=== PATIENT | female | born 1940 | race Caucasian/White ===

== ENCOUNTER 2023-06-21 12:45 | Outpatient (OUT) | payer OTHER, SELFPAY ==
--- NOTE | 2023-06-21 | MM_ITS ---
Patient: ROBERTO HILL Exam Date: 06/21/2023 : 1940 Gender:F Ordering : DR SAVANA PRATER . Admission #: [id number] Family : Order #: [id number] CLICK HERE TO VIEW EXAM RADIOLOGY REPORT PROCEDURE: MM SCREENING MAMMO BI COMPARISON: MG MAMM SCREEN JOSH W CAD, 06/17/2022. INDICATIONS: SCREENING Calculator Name NCI Breast Cancer Risk Assessment Tool 5 Year Breast Cancer Risk 1.40% Lifetime Breast Cancer Risk 2.10% Personal Breast Cancer No Personal Ovarian Cancer No Treatments None Family Cancers None LOCATION: [facility] BREAST COMPOSITION: Scattered areas fibroglandular density. FINDINGS: DIAGNOSTIC CATEGORY 2--BENIGN FINDING. NO CHANGE FROM COMPARISON. Scattered benign-appearing calcifications are present. Scattered benign-appearing lymph nodes are present. RIGHT BREAST: No significant suspicious finding. LEFT BREAST: No significant suspicious finding. RECOMMENDATIONS: ROUTINE MAMMOGRAM AND CLINICAL EVALUATION IN 12 MONTHS. PLEASE NOTE: A NORMAL MAMMOGRAM DOES NOT EXCLUDE THE POSSIBILITY OF BREAST CANCER. A CLINICALLY SUSPICIOUS PALPABLE LUMP SHOULD BE BIOPSIED. Dictated by: Russel Yoder MD on 06/21/2023 at 14:26 Approved by: Russel Yoder MD on 06/21/2023 at 14:27
== END 2023-06-21 12:46 | disposition home or self-care (01) ==
LOC: MAMMO 12:49
PROVIDERS: PCP Family Medicine; Visit Provider Family Medicine
DX: Z12.31 Encounter for screening mammogram for malignant neoplasm of breast (principal)
CPT/HCPCS: 77067

== ENCOUNTER 2023-07-03 14:59 | Outpatient (OUT) | payer OTHER, SELFPAY ==
--- NOTE | 2023-07-03 15:14 | XR_ITS ---
The [address] [address] Patient Name: ROBERTO HILL MRN: [id number] date: 1940 Sex: F Assigned Patient Location: [facility] Current Patient Location: [facility] Accession/Order Number: [id number] Exam Date: 07/03/2023 15:50 Report Date: 07/03/2023 16:24 At the request of: SAVANA PRATER Procedure: XR foot LT min 3V EXAM: XR foot LT min 3V HISTORY: FALL COMPARISON: Left ankle films, same date TECHNIQUE: 3 views of the left foot are performed. FINDINGS: The bones are diffusely demineralized. The fracture of the distal fibular diaphysis is seen. There are degenerative changes within the foot, greatest at the first MTP joint. No additional fracture is seen. XR/XR foot LT min 3V IMPRESSION: Distal fibular fracture. Osteopenia, with degenerative changes, greatest at the first MTP joint. Electronically authenticated by: SANDRINE LANE Date: 07/03/2023 16:24
--- NOTE | 2023-07-03 15:14 | XR_ITS ---
The [address] [address] Patient Name: ROBERTO HILL MRN: [id number] date: 1940 Sex: F Assigned Patient Location: [facility] Current Patient Location: [facility] Accession/Order Number: [id number] Exam Date: 07/03/2023 15:50 Report Date: 07/03/2023 16:18 At the request of: SAVANA PRATER Procedure: XR ankle LT min 3V XR ankle LT min 3V, 07/03/2023 3:50 PM EDT, OH001 INDICATION: FALL COMPARISON: None TECHNIQUE: AP, lateral and oblique views of the ankle are submitted. FINDINGS: The bones appear well mineralized. There is a nondisplaced oblique fracture through the distal diametaphysis of the fibula. The joint spaces are maintained. No destructive osseous process is identified. There is marked lateral soft tissue swelling. XR/XR ankle LT min 3V IMPRESSION: Nondisplaced distal fibular fracture. Marked lateral soft tissue swelling. Electronically authenticated by: HAYLEY MERA Date: 07/03/2023 16:18
--- NOTE | 2023-07-03 15:14 | XR_ITS ---
The [place] [id number] Patient Name: ROBERTO HILL MRN: [id number] date: 1940 Sex: F Assigned Patient Location: [facility] Current Patient Location: [facility] Accession/Order Number: [id number] Exam Date: 07/03/2023 15:50 Report Date: 07/03/2023 16:20 At the request of: SAVANA PRATER Procedure: XR knee LT 3V XR knee LT 3V, 07/03/2023 3:50 PM EDT, [place]001 INDICATION: FALL COMPARISON: None TECHNIQUE: 3 views are submitted. FINDINGS: The osseous structures appear well mineralized. The distal femur, proximal tibia, fibula and patella are all intact. There is slight narrowing of the medial joint compartment. There is mild increased density superior to the patella suspicious for joint effusion. XR/XR knee LT 3V IMPRESSION: No acute osseous injury with normal alignment. Probable knee joint effusion. Slight degenerative change. Electronically authenticated by: HAYLEY MERA Date: 07/03/2023 16:20
== END 2023-07-03 15:00 | disposition home or self-care (01) ==
LOC: RAD 15:00
PROVIDERS: PCP Family Medicine; Visit Provider Family Medicine
DX: M25.562 Pain in left knee (principal); M79.672 Pain in left foot; M25.572 Pain in left ankle and joints of left foot; S82.302A Unspecified fracture of lower end of left tibia, initial encounter for closed fracture; W19.XXXA Unspecified fall, initial encounter; S82.832A Other fracture of upper and lower end of left fibula, initial encounter for closed fracture
CPT/HCPCS: 73562; 73610; 73630

== ENCOUNTER 2023-07-07 14:52 | Outpatient (OUT) | payer OTHER, SELFPAY ==
--- NOTE | 2023-07-07 | XR_ITS ---
[address] [address] Patient Name: ROBERTO HILL MRN: [id number] date: 1940 Sex: F Assigned Patient Location: [facility] Current Patient Location: [facility] Accession/Order Number: [id number] Exam Date: 07/07/2023 15:10 Report Date: 07/10/2023 07:34 At the request of: SAVANA PRATER Procedure: XR shoulder LT min 2V PROCEDURE: XR shoulder LT min 2V COMPARISON: None. HISTORY: Shoulder pain, left M25.512 FINDINGS: BONES:No acute fracture or dislocation. Moderate degenerative changes of the acromioclavicular and glenohumeral joints. Moderate spondylosis of the spine SOFT TISSUES:Negative. No visible soft tissue swelling. EFFUSION:None visible. OTHER: Negative. XR/XR shoulder LT min 2V IMPRESSION: Degenerative changes. No acute abnormality Electronically authenticated by: ALEXIS CAAL Date: 07/10/2023 07:34
== END 2023-07-07 14:53 | disposition home or self-care (01) ==
PROVIDERS: PCP Family Medicine; Visit Provider Family Medicine
DX: M25.512 Pain in left shoulder (principal)
CPT/HCPCS: 73030

== ENCOUNTER 2023-07-19 16:00 | Outpatient (OUT) | payer OTHER, SELFPAY ==
--- NOTE | 2023-07-19 | XR_ITS ---
The [address] [address] Patient Name: ROBERTO HILL MRN: [id number] date: 1940 Sex: F Assigned Patient Location: [facility] Current Patient Location: [facility] Accession/Order Number: [id number] Exam Date: 07/19/2023 14:30 Report Date: 07/19/2023 15:23 At the request of: LUIS E RICHARD Procedure: XR ankle LT min 3V IMAGES REVIEWED: XR ankle LT min 3V COMPARISON: 07/03/2023. CLINICAL INDICATION: LEFT ANKLE PAIN FINDINGS/IMPRESSION: 1. Subacute obliquely oriented minimally displaced distal fibular fracture without significant interval healing compared to the recent prior. 2. Otherwise the left ankle appears intact. No evidence of new acute osseous abnormality. 3. Persistent prominent soft tissue swelling of the lateral greater than medial ankle and the dorsal foot. 4. Osteopenia. 5. Moderate enthesopathic change at the distal Achilles tendon insertion. Small chronic sequela of prior medial ankle avulsion injury. Degenerative change of the fifth TMT joint. Electronically authenticated by: KIT HUTCHISON Date: 07/19/2023 15:23
== END 2023-07-19 16:01 | disposition home or self-care (01) ==
LOC: RAD 16:01
PROVIDERS: PCP Family Medicine; Visit Provider Podiatrist Foot & Ankle Surgery
DX: M25.572 Pain in left ankle and joints of left foot (principal); S82.832A Other fracture of upper and lower end of left fibula, initial encounter for closed fracture; M85.872 Other specified disorders of bone density and structure, left ankle and foot
CPT/HCPCS: 73610

== ENCOUNTER 2023-08-02 14:18 | Outpatient (OUT) | payer OTHER, SELFPAY ==
--- NOTE | 2023-08-02 | XR_ITS ---
The [address] [address] Patient Name: ROBERTO HILL MRN: [id number] date: 1940 Sex: F Assigned Patient Location: [facility] Current Patient Location: Accession/Order Number: [id number] Exam Date: 08/02/2023 14:45 Report Date: 08/04/2023 06:36 At the request of: LUIS E RICHARD Procedure: XR ankle LT min 3V PROCEDURE: XR ankle LT min 3V HISTORY: LEFT ANKLE PAIN COMPARISON: XR ankle left 07/19/2023 FINDINGS: BONES:Oblique fracture of distal fibula diametaphysis with minimal lateral offset. Increased callus formation and density of the fracture line since prior study. Intact ankle mortise. SOFT TISSUES:Moderate soft tissue swelling surrounding the ankle. EFFUSION:None visible. OTHER: Negative. XR/XR ankle LT min 3V IMPRESSION: 1. Stable alignment of distal fibular fracture with evidence of ongoing bone healing. Electronically authenticated by: SAMM GATES Date: 08/04/2023 06:36
== END 2023-08-02 14:19 | disposition home or self-care (01) ==
LOC: RAD 14:18
PROVIDERS: PCP Family Medicine; Visit Provider Podiatrist Foot & Ankle Surgery
DX: M25.572 Pain in left ankle and joints of left foot (principal); S82.892D Other fracture of left lower leg, subsequent encounter for closed fracture with routine healing
CPT/HCPCS: 73610

== ENCOUNTER 2023-08-29 15:17 | Outpatient (OUT) | payer OTHER, SELFPAY ==
--- NOTE | 2023-08-29 | XR_ITS ---
The [address] [address] Patient Name: ROBERTO HILL MRN: [id number] date: 1940 Sex: F Assigned Patient Location: [facility] Current Patient Location: Accession/Order Number: [id number] Exam Date: 08/29/2023 15:30 Report Date: 09/01/2023 06:08 At the request of: LUIS E RICHARD Procedure: XR ankle LT min 3V PROCEDURE: XR ankle LT min 3V HISTORY: LEFT ANKLE PAIN ; follow-up distal fibular fracture COMPARISON: XR ankle left 08/02/2023 FINDINGS: BONES:Minimally displaced fracture of distal fibula with increasing density of the fracture line and surrounding callus formation. SOFT TISSUES:Mild lateral soft tissue swelling, but improved compared to prior study. EFFUSION:None visible. OTHER: Negative. XR/XR ankle LT min 3V IMPRESSION: 1. Stable alignment and ongoing bone healing of distal left fibular fracture. Electronically authenticated by: SAMM GATES Date: 09/01/2023 06:08
== END 2023-08-29 15:18 | disposition home or self-care (01) ==
LOC: RAD 15:18
PROVIDERS: PCP Family Medicine; Visit Provider Podiatrist Foot & Ankle Surgery
DX: M25.572 Pain in left ankle and joints of left foot (principal)
CPT/HCPCS: 73610

== ENCOUNTER 2023-09-29 11:42 | Outpatient (OUT) | payer OTHER, SELFPAY ==
--- NOTE | 2023-09-29 | XR_ITS ---
The [address] [address] Patient Name: ROBERTO HILL MRN: [id number] date: 1940 Sex: F Assigned Patient Location: [facility] Current Patient Location: [facility] Accession/Order Number: [id number] Exam Date: 09/29/2023 11:43 Report Date: 09/29/2023 16:08 At the request of: LUIS E RICHARD Procedure: XR ankle LT min 3V EXAM: XR ankle LT min 3V, XR foot LT min 3V HISTORY: LEFT ANKLE PAIN. COMPARISON: Left ankle study dated 08/29/2023, left foot study dated 07/03/2023. TECHNIQUE: 3 views of the left ankle were obtained. FINDINGS: Mild ankle joint space narrowing. Mild spurring of the medial malleolus of the distal tibia. Findings compatible with healing fracture of the distal fibular shaft with mild interval healing compared to the prior exam, decreased conspicuity of the fracture line with increased periosteal new bone formation suggested. Slight lateral displacement of the distal fracture fragment mildly decreased compared to the prior exam. Mild generalized soft tissue swelling. Small posterior calcaneal spur. TECHNIQUE: 3 views of the left foot were obtained. FINDINGS: Healing fracture of the distal fibula as noted above. No definite acute fracture or dislocation about the left foot. [id number] degenerative changes about the interphalangeal joints. Marked degenerative changes about the first metatarsophalangeal joint. Small plantar calcaneal spur. Mild soft tissue swelling proximally. XR/XR ankle LT min 3V IMPRESSION: Left ankle study demonstrates healing fracture of the distal fibula as noted. Left foot study fails to demonstrate definite acute fracture or dislocation about the foot. Degenerative changes as noted, similar to the prior study. Follow-up as needed. Electronically authenticated by: MALINA LONDON Date: 09/29/2023 16:08
--- NOTE | 2023-09-29 | XR_ITS ---
The [address] [address] Patient Name: ROBERTO HILL MRN: [id number] date: 1940 Sex: F Assigned Patient Location: [facility] Current Patient Location: [facility] Accession/Order Number: [id number] Exam Date: 09/29/2023 11:43 Report Date: 09/29/2023 16:08 At the request of: LUIS E RICHARD Procedure: XR foot LT min 3V EXAM: XR ankle LT min 3V, XR foot LT min 3V HISTORY: LEFT ANKLE PAIN. COMPARISON: Left ankle study dated 08/29/2023, left foot study dated 07/03/2023. TECHNIQUE: 3 views of the left ankle were obtained. FINDINGS: Mild ankle joint space narrowing. Mild spurring of the medial malleolus of the distal tibia. Findings compatible with healing fracture of the distal fibular shaft with mild interval healing compared to the prior exam, decreased conspicuity of the fracture line with increased periosteal new bone formation suggested. Slight lateral displacement of the distal fracture fragment mildly decreased compared to the prior exam. Mild generalized soft tissue swelling. Small posterior calcaneal spur. TECHNIQUE: 3 views of the left foot were obtained. FINDINGS: Healing fracture of the distal fibula as noted above. No definite acute fracture or dislocation about the left foot. [id number] degenerative changes about the interphalangeal joints. Marked degenerative changes about the first metatarsophalangeal joint. Small plantar calcaneal spur. Mild soft tissue swelling proximally. XR/XR foot LT min 3V IMPRESSION: Left ankle study demonstrates healing fracture of the distal fibula as noted. Left foot study fails to demonstrate definite acute fracture or dislocation about the foot. Degenerative changes as noted, similar to the prior study. Follow-up as needed. Electronically authenticated by: MALINA LONDON Date: 09/29/2023 16:08
== END 2023-09-29 11:43 | disposition home or self-care (01) ==
LOC: RAD 11:42
PROVIDERS: PCP Family Medicine; Visit Provider Podiatrist Foot & Ankle Surgery
DX: S82.62XA Displaced fracture of lateral malleolus of left fibula, initial encounter for closed fracture (principal)
CPT/HCPCS: 73610; 73630

== ENCOUNTER 2023-10-07 17:52 | Emergency (ER) | payer MEDICARE, SELFPAY ==
[2023-10-07 18:00] VITALS: BP 118/63; PULSE 87; RESP 18; TEMP 36.7; O2SAT 95
--- OUTSIDE RECORDS SUMMARY | 2023-10-07 18:03 | XMS_ITS | CCD ---
Author Name Unknown Address [address] [place] [address] Organization [facility] Care Team Providers Care Transmission Mechanic Name Role Phone TALA SNOWF Unavailable Unavailable GWENDOLYN MOURDEONTEF Unavailable Unavailable Meng Prater Unavailable Unavailable Unavailable Meng Prater MD Primary Care Provider [phone] Meng Prater Primary Care Physician Meng Prater MD Primary Care Provider [phone] Meng Prater MD Primary Care Provider [phone] DR MENG PRATER Admitting Unavailable JOSI, DR SAWANT Attending Unavailable JOSI, DR SAWANT Consulting Unavailable JOSI, DR SAWANT Primary Care Unavailable DIAB, NATALIE Attending Unavailable DIAB, NATALIE Consulting Unavailable NICHOLAS, NATALIE Admitting Unavailable JOSI, DR SAWANT Primary Care Unavailable JOSI, DR SAWANT Primary Care Unavailable JOSI, DR SAWANT Admitting Unavailable JOSI, DR SAWANT Attending Unavailable JOSI, DR SAWANT Consulting Unavailable JOSI, DR SAWANT Primary Care Unavailable JOSI, DR SAWANT Admitting Unavailable JOSI, DR SAWANT Attending Unavailable JOSI, DR SAWNAT Consulting Unavailable YAJAIRA, DR SAMM Heller Consulting Unavailable DR MENG PRATER Primary Care Unavailable JOSI, DR SAWANT Admitting Unavailable JOSI, DR SAWANT Attending Unavailable JOSI, DR SAWANT Consulting Unavailable AFUA, DR ALEXIS Elizabeth Consulting Unavailable Meng Prater MD Primary Care Provider [phone] MENG PRATER Primary Care Unavailable MENG PRATER Primary Care Unavailable CHRISTIANA MONTERO Attending Unavailable CHRISTIANA MONTERO Attending Unavailable MENG PRATER Primary Care Unavailable EVITA CALDERON Referring Unavailable MENG PRATER Primary Care Unavailable CHRISTIANA MONTERO Attending Unavailable MENG PRATER Primary Care Unavailable SHELLEY MITCHELL Attending Unavailable MENG PRATER Primary Care Unavailable KASEY RAE Attending Unavaila MENG Muniz Primary Care Unavailable CHRISTIANA MONTERO Attending Unavailable Gwendolyn, Dr. Zhao Referring Unavaila sera Snow, Dr. Zhao Attending Unavaila Dr. Meng Muniz Primary Care Unavail able ELLEN COOK Admitting Unavailable ELLEN COOK Attending Unavailable ELLEN COOK Attending Unavailable Kunal LORA Attending Unavailable Kunal LORA Attending Unavailable Leonor Phillips Attending Unavailable Kunal LORA Attending Unavailable Meng Prater MD Primary Care Provider [phone] MAUREEN BALLESTEROS Attending Unavailable MAUREEN BALLESTEROS Referring Unavailable Allergies Allergy Classification Reported Allergen(s) Allergy Type Date of Onset Reaction(s) Facility (14 sources) Penicillins; Translations: [Penicillins] Allergy to drug (finding) 3 Unknown (qualifier value) [place] [address] DO Work Phone: (5 sources) Sulfamethoxazole; Translations: [sulfa] Drug Allergy Rash [facility] 250 DO Work Phone: (19 sources) Ciprofloxacin; Translations: [CIPROFLOXACIN] Drug Allergy [address] [facility] (3 sources) Penicillins Drug Allergy 3 [facility] (19 sources) Sulfonamides (Antibiotic); Translations: [SULFA (SULFONAMIDE ANTIBIOTICS)] Drug Allergy 9 Rash [facility] (8 sources) Sulfonamides (Antibiotic); Translations: [sulfa drugs] Drug allergy Unknown (qualifier value) [facility] (15 sources) Penicillins Drug Allergy 3 [facility] (7 sources) NITROFURANTOIN, MACROCRYSTALS / Nitrofurantoin, Monohydrate; Translations: [nitrofurantoin] Drug Allergy 1 itching [facility] (1 source) Ciprofloxacin Drug Allergy [facility] (1 source) Penicillins Drug allergy (disorder) 3 [facility] (1 source) Sulfonamides (Antibiotic) Drug allergy (disorder) [facility] Medications Current Medications Medication Drug Class(es) Dates Sig (Normalized) Sig (Original) amLODIPine 10 mg oral tablet (20 sources) Dihydropyridine Calcium Channel [place] Start: 10-21-2019 take 1 tablet by mouth once daily Norvasc 10 mg Tab 10 mg = 1 tab(s), Oral, Daily, # 30 tab(s), Refills(s) 0 Start Date: 10/21/19 Status: Ordered Start: 06-13-2019 take 1 tablet by terrence th twice daily amLODIPine (NORVASC) 5 mg tablet Take 1 tablet by mouth twice daily. 0 06/13/2019 Active Comment on above: Take 1 tablet by terrence th twice daily. Ascorbic Acid (20 sources) Vitamin C Start: 05-06-2019 Vitamin C See Instructions, Daily, Refills(s) 0 Start Date: 05/06/19 Status: Ordered take 1 tablet by mouth once paul y Vitamin C 1000 MG Oral Tablet TAKE 1 TABLET DAILY. Quantity: 0 Refills: 0 Ordered: 09-Aug-2021 DO Active Ascorbic Acid 1, 000 mg TbER Take by mouth. 0 Active Comment on above: Take by mouth. aspirin 81 mg oral capsule (20 sources) Platelet Aggregation Inhibitor, Nonsteroidal Anti-inflammatory Drug Start: 08-09-2021 take 1 mg by mouth every four hours aspirin 81 mg oral capsule mg cap(s), Oral, q4hr, Refills(s) 0 Start Date: 08/09/21 Status: Ordered Start: 08-09-2021 take 1 tablet by terrence th once daily Aspirin 81 MG Oral Tablet Delayed Release TAKE 1 TABLET DAILY. Quantity: 90 Refills: 3 Ordered: 06-Jun-2023 Mary Anne Snow MD Start : 09-Aug-2021 Active fill if requested. Comment on above: Take 81 mg by mouth once daily. Brain Misael Capsules (All Web Leads) (12 sources) Start: 07-08-2020 End: 02-04-2023 take 2 tablets by mouth at mealtime Brain Misael Capsules (All Web Leads) Take 2 tablets by mouth w MEALS. 0 07/08/2020 02/04/2023 Discontinued Start: 07-08-2020 take 2 tablets by [facility] at mealtime Brain Misael Capsules (All Web Leads) Take 2 tablets by mouth w MEALS. 0 07/08/2020 Active Comment on above: Take 2 tablets by [facility] w MEALS. Clobetasol (7 sources) Corticosteroid Start: 3 apply 45 g topically every week as needed clobetasol Top 0.05% Crm 15 gram See Instructions, 45 gm, Refill(s) 1, 4x a week as needed, [facility], 157, cm, 08/08/22 15:15:00 EDT, Height/Length Dosing, 60.8, kg, 08/08/22 15:15:00 EDT, Weight Dosing Start Date: 02/14/23 Status: Ordered Start: 01-31-2022 apply 45 g topically every week as needed clobetasol Top 0.05% Crm 15 gram See Instructions, 45 gm, Refill(s) 1, 4x a week as needed, [facility], 157, cm, 01/31/22 14:38:00 EDT, Height/Length Dosing, 55.5, kg, 01/31/22 14:38:00 EDT, Weight Dosing Start Date: 01/31/22 Status: Ordered Co Q-10 (7 sources) Start: 11-23-2020 take 1 mg by mouth once daily Co Q-10 mg, Oral, Daily, Refills(s) 0 Start Date: 11/23/20 Status: Ordered Pristiq (17 sources) Serotonin and Norepinephrine Reuptake Inhibitor Start: 08-08-2022 Pristiq Oral, Daily, Refills(s) 0 Start Date: 08/08/22 Status: Ordered Pristiq TB24 one daily Quantity: 0 Refills: 0 Ordered: 06-Jun-2023 DO Active take 1 tablet by terrence once daily, then take 1 tablet by mouth every twenty-four hours desvenlafaxine ER (PRISTIQ) 50 mg 24 hr tablet Take 50 mg by mouth once daily. 0 Active Comment on above: Take 50 mg by mouth once daily. escitalopram 20 mg oral tablet (20 sources) Serotonin Reuptake Inhibitor Start: 09-14-2020 take 1 mg by mouth once daily Lexapro 20 mg Tab mg tab(s), Oral, Daily, Refills(s) 0 Start Date: 08/09/21 Status: Ordered Start: 04-22-2019 End: 07-25-2022 take 1 tablet by mouth once daily Lexapro 10 mg Tab 10 mg = 1 tab(s), Oral, Daily, # 30 tab(s), Refills(s) 0 Start Date: 10/21/19 Status: Ordered Comment on above: Take 10 mg by mouth once daily. estradiol 0.1 mg/ml vaginal cream (18 sources) Estrogen Start: 08-08-2022 estradiol 0.1 mg/g Vag Crm 1 gm, Vaginal, TueSat, 42.5 gm, Refill(s) 3, [facility], 157, cm, 08/08/22 15:15:00 EDT, Height/Length Dosing, 60.8, kg, 08/08/22 15:15:00 EDT, Weight Dosing Start Date: 08/08/22 Status: Ordered Start: 08-02-2021 estradiol 0.1 mg/g Vag Crm Refill(s) 0 Start Date: 08/02/21 Status: Ordered Start: 08-02-2021 estradiol 0.1 mg/g Vag Crm Refill(s) 0 Start Date: 08/02/21 Status: Ordered Start: 05-13-2021 Estradiol 0.1 MG/GM Vaginal Cream INSERT 1 GRAM TWICE PER A WEEK VIA VAGINAL ROUTE Quantity: 42 Refills: 0 Ordered: 13-May-2021 DO Start : 13-May-2021 Active Osiris WILKINSON 1265 ([employer]) sleep/calming/anxiety (12 sources) Start: 07-08-2020 End: 02-04-2023 Osiris WS 1265 ([employer]) sleep/calming/anxiety 1 at bedtime - may also use 1 in AM for relaxation/anxiety 0 07/08/2020 02/04/2023 Discontinued Start: 07-08-2020 Osiris WS 1265 ([employer]) sleep/calming/anxiety 1 at bedtime - may also use 1 in AM for relaxation/anxiety 0 07/08/2020 Active Comment on above: 1 at bedtime - may a lso use 1 in AM for relaxation/anxiety Multi t/d 60 ct. (Pure Encapsulations) - multivitamin (12 sources) Start: 021 End: 023 take 1 capsule by mouth twice daily at mealtime Multi t/d 60 ct. (Pure Encapsulations) - multivitamin Take 1 capsule by mouth twice daily with meals. 120 capsule 11 11/25/2020 02/04/2023 Discontinued Start: 11-25-2020 take 1 capsule by mo uth twice daily at mealtime Multi t/d 60 ct. (Pure Encapsulations) - multivitamin Take 1 capsule by mouth twice daily with meals. 120 capsule 11 11/25/2020 Active Comment on above: Take 1 capsule by mo uth twice daily with meals. [place]-3 350 mg oral capsule (7 sources) Start: 11-23-2020 take 1 capsule by mouth once daily [place]-3 350 mg oral capsule mg cap(s), Oral, Daily, Refills(s) 0 Start Date: 11/23/20 Status: Ordered valsartan 80 mg oral tablet (7 sources) Angiotensin 2 Receptor [place] Start: 06-14-2019 take 1 mg by mouth once daily valsartan 80 mg Tab mg tab(s), Oral, Daily, Refills(s) 0 Start Date: 06/14/19 Status: Ordered Vitamin D3 (7 sources) Start: 05-06-2019 Vitamin D3 Refills(s) 0 Start Date: 05/06/19 Status: Ordered Vitamin E (12 sources) Start: 10-21-2019 vitamin E Oral, Daily, Refills(s) 0 Start Date: 10/21/19 Status: Ordered take 1 capsule by mouth once temo ly Vitamin E 1000 UNIT Oral Capsule TAKE 1 CAPSULE Daily Quantity: 0 Refills: 0 Ordered: 09-Aug-2021 DO Active Completed/Discontinued Medications Medication Drug Class(es) Dates Sig (Normalized) Sig (Original) ARIPiprazole 2 mg oral tablet (7 sources) Atypical Antipsychotic take 1 tablet by mouth once daily ARIPiprazole (ABILIFY) 2 mg tablet Take 2 mg by mouth once daily. 0 Active Comment on above: Take 2 mg by mouth o nce daily. 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 0 02/04/2023 Active Start: 11-25-2020 End: 02-04-2023 take 2 capsules by mouth once daily at mealtime B-Complex Plus (Pure Encapsulations) Take 2 capsules by mouth daily with food. 0 11/25/2020 02/04/2023 Discontinued Start: 11-25-2020 take 2 capsules by m outh once daily at mealtime B-Complex Plus (Pure Encapsulations) Take 2 capsules by mouth daily with food. 0 11/25/2020 Active Comment on above: Take 2 capsules by m outh daily with food. Take 1 capsule by mo uth daily with food. Brain TABS (3 sources) Brain TABS TAKE 2 TABLET Daily Quantity: 0 Refills: 0 Ordered: 31-May-2022 DO Active carvedilol 3.125 mg oral tablet (20 sources) alpha-Adrenergic [place], beta-Adrenergic [place] Start: 01-06-2021 take 1 tablet by mouth twice daily Carvedilol 3.125 MG Oral Tablet TAKE ONE TABLET BY MOUTH TWICE A DAY ALONG WITH THE 12.5MG Quantity: 60 Refills: 0 Ordered: 02-Aug-2021 DO Start : 06-Jan-2021 Active Start: 05-07-2019 take 1 mg by mouth twice daily Coreg 12.5 mg Tab mg tab(s), Oral, BID, Refills(s) 0 Start Date: 05/18/20 Status: Ordered Start: 05-06-2019 take 3.125 mg by terrence th twice daily Coreg 6.25 mg Tab 3.125 mg = 0.5 tab(s), Oral, BID, Refills(s) 0 Start Date: 05/06/19 Status: Ordered Comment on above: Take 12.5 mg by mout h twice daily. Chlorella (Biotics) (2 sources) Start: Chlorella (Biotics) Indications: Memory change Take three capsules each day. 0 05/19/2023 Active Comment on above: Take three capsules each day. cholecalciferol 0.025 mg oral capsule (20 sources) Vitamin D take 1 capsule by mouth once daily Vitamin D3 25 MCG (1000 UT) Oral Capsule TAKE 1 CAPSULE Daily Quantity: 0 Refills: 0 Ordered: 09-Aug-2021 DO Active take 1 tablet by mouth once paul y cholecalciferol (VITAMIN D3) 50 mcg (2,000 unit) tablet Take 2,000 Units by mouth once daily. 0 Active Comment on above: Take 2,000 Units by mouth once daily. 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 (2 pumps = 100 mg Glutathione) 0 02/04/2023 Active Comment on above: Use 20 pumps daily ( 1000mg) divided doses through out the day. (2 pumps = 100 mg Glutathione) Glutathione (Spotify) - Liver support/detox (8 sources) Start: 12-01-2021 End: 07-25-2022 Glutathione (Spotify) - Liver support/detox Use 8 pumps daily , divided doses through out the day. (2 pumps = 100 mg Glutathione). Work up slowly to the higher dose. 0 12/01/2021 07/25/2022 Discontinued Start: 12-01-2021 Glutathione (Q DocuTAP) - Liver support/detox Use 8 pumps daily , divided doses through out the day. (2 pumps = 100 mg Glutathione). Work up slowly to the higher dose. 0 12/01/2021 Active Comment on above: Use 8 pumps daily , divided doses through out the day. (2 pumps = 100 mg Glutathione). Work up slowly to the higher dose. 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 (1 [id number]) 0 02/04/2023 Active Comment on above: Take 1 capsule 3 fidel es daily in divided doses between meals. (1 [id number]) ketoconazole 20 mg/ml topical cream (1 source) Azole Antifungal Ketoconazole 2 % External Cream APPLY SPARINGLY TO AFFECTED AREA(S) ONCE DAILY Quantity: 0 Refills: 0 Ordered: 06-Jun-2023 DO Active Lavela WS 1265 80 MG Oral Capsule (3 sources) Lavela WS 1265 8 0 MG Oral Capsule twice daily as needed Quantity: 0 Refills: 0 Ordered: 31-May-2022 DO Active Ocou-Bujx-MT ([employer]) (8 sources) Start: 12-01-2021 End: 07-25-2022 Izwz-Dveg-JA ([employer]) Take 1 capsule, 2 times daily with 4 oz or more of water. 0 12/01/2021 07/25/2022 Discontinued Start: 12-01-2021 Bcdm-Ifqu-OE ( [employer]) Take 1 capsule, 2 times daily with 4 oz or more of water. 0 12/01/2021 Active Comment on above: Take 1 capsule, 2 ti mes daily with 4 oz or more of water. NAC 600mg (Pure Encapsulations) - liver support (helps make glutathione) (8 sources) Start: 12-01-2021 End: 07-25-2022 NAC 600mg (Pure Encapsulations) - liver support (helps make glutathione) 3 capsules, in divided doses, between meals 0 12/01/2021 07/25/2022 Discontinued Start: 12-01-2021 NAC 600mg (Pur e Encapsulations) - liver support (helps make glutathione) 3 capsules, in divided doses, between meals 0 12/01/2021 Active Comment on above: 3 capsules, in divid ed doses, between meals Neuro Rudolph TABS (3 sources) Neuro Rudolph TABS TAKE DIRECTED. Quantity: 0 Refills: 0 Ordered: 31-May-2022 DO Active Neuromag ( All Web Leads ) 90 ct (18 sources) Start: 07-08-20 Neuromag ( All Web Leads ) 90 ct Take 3 capsules per day or as directed by a healthcare professional. 0 07/08/2020 Active Comment on above: Take 3 capsules per day or as directed by a healthcare professional. 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 0 02/04/2023 Active Comment on above: Take 2 capsules paul y, with meals. rosuvastatin calcium 40 mg oral tablet (20 sources) HMG-CoA Reductase Inhibitor Start: 04-22-20 take 1 tablet by mouth at bedtime Rosuvastatin Calcium 40 MG Oral Tablet TAKE 1 TABLET AT BEDTIME Quantity: 90 Refills: 1 Ordered: 26-Apr-2023 Gwendolyn WATTS, Mary Anne Start : 05-May-2021 Active Comment on above: Take 40 mg by mouth once daily. Saccharomyces Boulardii (Klaire/Prothera) good yeast (FRIDGE) (8 sources) Start: 12-01-19 End: 07-25-20 take 2 capsules by mouth once daily Saccharomyces Boulardii (Klaire/Prothera) good yeast (FRIDGE) Take 2 capsules by mouth once daily. Take saccharomyces boullardi 2 hrs away from nystatin/candibactin/d iflucan. 0 12/01/2021 07/25/2022 Discontinued Start: 12-01-2021 take 2 capsules by mouth once daily Saccharomyces Boulardii (Klaire/Prothera ) good yeast (FRIDGE) Take 2 capsules by mouth once daily. Take saccharomyces boullardi 2 hrs away from nystatin/candibactin/diflucan. 0 12/01/2021 Active Comment on above: Take 2 capsules by out once daily. Take saccharomyces boullardi 2 hrs away from nystatin/candibactin/diflucan. ubiquinol 100 mg oral capsule (18 sources) Star t: 06-11 0 coQ10, ubiquinol, 100 mg cap Take 1 capsule daily with a meal. 60 capsule 2 07/08/2020 Active Comment on above: Take 1 capsule daily with a meal. UT Synergy (All Web Leads) antibacterial (18 sources) Star t: 06-11 0 20 take 1 capsule by mouth twice daily [employer]nergy (All Web Leads) antibacterial Take 1 capsule by mouth twice daily. 0 07/08/2020 Active Comment on above: Take 1 capsule by mo uth twice daily. vitamin E, dl,tocopheryl acet, (VITAMIN E, DL, ACETATE, ORAL) (10 sources) take 1000 [IU] by mouth once daily vitamin E, dl,tocopheryl acet, (VITAMIN E, DL, ACETATE, ORAL) Take 1,000 Units by mouth once daily. 0 Active Comment on above: Take 1,000 Units by mouth once daily. Problems Active Problems Problem Classification Problem Date Documented Date Episodic/Chronic Abdominal pain (7 sources) Suprapubic pain 05-06-2019 Episodic Administrative/social admission (2 sources) Patient encounter status; Translations: [Dietary counseling and surveillance] Episodic Anxiety disorders (1 source) Anxiety disorder, unspecified; Translations: [ANXIETY DISORDER UNSPECIFIED] Onset: 11-07-2022 Chronic Cardiac dysrhythmias (5 sources) Ventricular premature beats; Translations: [Other premature beats] Chronic Coma; stupor; and brain damage (1 source) Drowsy; Translations: [Somnolence] Episodic Conditions associated with dizziness or vertigo (5 sources) Dizziness; Translations: [Dizziness and giddiness] Episodic Coronary atherosclerosis and other heart disease (18 sources) Arteriosclerotic vascular disease; Translations: [Atherosclerotic heart disease of enterprise coronary artery without angina pectoris] Onset: 07-07-2020 07-07-2020 Chronic Coronary atherosclerosis and other heart disease (1 source) Coronary atherosclerosis and other heart disease Onset: 07-11-2017 Delirium, dementia, and amnestic and other cognitive disorders (20 sources) Primary degenerative dementia of the Alzheimer type, senile onset; Translations: [Alzheimer's disease with late onset] Onset: 07-07-2020 07-07-2020 Chronic Disorders of lipid metabolism (20 sources) Hyperlipidemia; Translations: [Other and unspecified hyperlipidemia] Onset: 07-07-2020 07-07-2020 Chronic Essential hypertension (20 sources) Essential hypertension; Translations: [Unspecified essential hypertension] Onset: 07-07-2020 07-07-2020 Chronic Essential hypertension (1 source) Essential hypertension Onset: 07-11-2017 Genitourinary symptoms and ill-defined conditions (15 sources) Dysuria; Translations: [Microscopic hematuria] Onset: 04-17-2023 05-06-2019 Episodic Heart valve disorders (1 source) Nonrheumatic mitral (valve) insufficiency; Translations: [NONRHEUMATIC MITRAL INSUFFICIENCY] Onset: 11-07-2022 Chronic Nonspecific chest pain (9 sources) Chest pain; Translations: [Chest pain, unspecified] Onset: 06-03-2022 Episodic Nutritional deficiencies (1 source) Vitamin D deficiency, unspecified; Translations: [VITAMIN D DEFICIENCY UNSPECIFIED] Onset: 06-05-2022 Chronic Nutritional deficiencies (5 sources) Vitamin B-complex deficiency ; Translations: [Vitamin B deficiency, unspecified] Episodic Occlusion or stenosis of precerebral arteries (7 sources) Bilateral stenosis of carotid arteries; Translations: [Occlusion and stenosis of multiple and bilateral precerebral arteries without mention of cerebral infarction] 08-21-2023 Chronic Other aftercare (2 sources) Drug therapy finding; Translations: [Other custodial (current) drug therapy] Episodic Other aftercare (1 source) terminal operator (current) use of aspirin; Translations: [USP CURRENT USE OF ASPIRIN] Onset: 11-07-2022 Episodic Other aftercare (1 source) Other ad terminal makeup operator (current) drug therapy; Translations: [OTH VALIDATION TECHNICIAN CURRENT DRUG THERAPY] Onset: 11-07-2022 Episodic Other connective tissue disease (1 source) Pain in right thigh; Translations: [PAIN IN RIGHT THIGH] Onset: 10-08-2022 Episodic Other nervous system disorders (1 source) 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; Translations: [Cognitive communication deficit] Chronic Other non-traumatic joint disorders (4 sources) Pain in right hip; Translations: [PAIN IN RIGHT HIP] Onset: 10-05-2022 Episodic Other nutritional; endocrine; and metabolic disorders (1 source) Overweight; Translations: [Overweight] Episodic Other nutritional; endocrine; and metabolic disorders (3 sources) Impaired nutrient utilization; Translations: [Other symptoms and signs concerning food and fluid intake] Episodic Other nutritional; endocrine; and metabolic disorders (1 source) Overweight in adulthood with body mass index of 25 or more but less than 30; Translations: [Overweight] Episodic Other screening for suspected conditions (not mental disorders or infectious disease) (16 sources) Cardiovascular stress test abnormal; Translations: [Other nonspecific abnormal results of function study of cardiovascular system] Onset: 06-05-2022 Episodic Residual codes; unclassified (4 sources) Non-smoker; Translations: [Other specified conditions influencing health status] Episodic Residual codes; unclassified (5 sources) Body mass index 20-24 - normal; Translations: [Body Mass Index between 19-24, adult] Episodic Residual codes; unclassified (3 sources) Memory impairment; Translations: [Other amnesia] Episodic Residual codes; unclassified (1 source) Contact with and (suspected) exposure to mold (toxic); Translations: [Contact with and (suspected) exposure to mold] Episodic Residual codes; unclassified (1 source) Acquired absence of other specified parts of digestive tract; Translations: [ACQ ABSENCE OTH PART DIGESTV TRACT] Onset: 11-07-2022 Episodic Residual codes; unclassified (2 sources) Contact with and (suspected) exposure to other hazardous, chiefly nonmedicinal, chemicals; Translations: [Contact with and (suspected) exposure to other potentially hazardous chemicals] Episodic Thyroid disorders (2 sources) Subclinical hypothyroidism; Translations: [Other specified hypothyroidism] Chronic Unclassified (2 sources) Occlusion and stenosis of bilateral carotid arteries / I65.23(ICD-9) Onset: 07-11-2017 Unclassified (1 source) Ventricular premature depolarization / I49.3(ICD-9) Onset: 07-11-2017 Unclassified (1 source) Pure hypercholesterolemia, unspecified / E78.00(ICD-9) Onset: 07-11-2017 Urinary tract infections (12 sources) Chronic cystitis; Translations: [Other chronic cystitis without hematuria] Onset: 01-31-2022 Chronic Urinary tract infections (18 sources) Postinfective urethral stricture of female; Translations: [Postinfective urethral stricture, not elsewhere classified, female] Onset: 01-31-2022 Episodic Past or Other Problems Problem Classification Problem Date Documented Da te Episodic/Chronic Biliary tract disease (1 source) Chronic cholecystitis; Translations: [CHRONIC CHOLECYSTITIS] Onset: 06-05-2022 Episodic Deficiency and other anemia (1 source) Anemia, unspecified; Translations: [ANEMIA UNSPECIFIED] Onset: 06-05-2022 Episodic Diabetes mellitus without complication (1 source) Other abnormal glucose; Translations: [OTHER ABNORMAL GLUCOSE] Onset: 06-05-2022 Episodic Unclassified (1 source) Occlusion and stenosis of bilateral carotid arteries; Translations: [Occlusion and stenosis of bilateral carotid arteries] Onset: 07-11-2017 Unclassified (1 source) Never smoked tobacco; Translations: [Never a smoker] Results Test Name Value Interpretation Reference Range Facility US.doppler Carotid arteries - bilateralon 08-25-2023 [facility] [address] [place] [address], [address], [place] [address] Vascular Lab Report [facility] US CAROTID ARTERY DUPLEX BILATERAL Patient Name: ANN MARIE HILL Reading Physician: [id number] Miranda Tinoco MD, [facility] Study Date: 08/21/2023 Ordering Provider: [id number] MARY ANNE CASTLEEdda MRN/PID: [id number] Fellow: Technologist: Irasema Dooley RD, T Date of /Age: 3 1940 years Technologist 2: Gender: F Admission Status: Outpatient Location Performed: [facility] Diagnosis/ICD: Occlusion 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; Essential primary hypertension-I10 Indication: Hyperlipidemia, Dizziness, Dementia CPT Codes: 17895 Cerebrovascular Carotid Duplex scan complete CONCLUSIONS: Right Carotid: Findings are consistent with less than 50% stenosis of the right proximal internal carotid artery. Laminar flow seen by color Doppler. Right external carotid artery appears patent with no evidence of stenosis. No evidence of hemodynamically significant stenosis of the right common carotid artery. The right vertebral artery is patent with antegrade flow. No changes since 2019. Left Carotid: Findings are consistent with less than 50% stenosis of the left proximal internal carotid artery. Laminar flow seen by color Doppler. Left external carotid artery appears patent with no evidence of stenosis. No evidence of hemodynamically significant stenosis of the left common carotid artery. The left vertebral artery is patent with antegrade flow. No changes since 2019. Imaging & Doppler Findings: Right Plaque Morph: The proximal right internal carotid artery demonstrates irregular plaque. The distal right common carotid artery demonstrates calcified and irregular plaque. Right Left PSV EDV PSV EDV 59 cm/s 12 cm/s CCA P 92 cm/s 16 cm/s 60 cm/s 12 cm/s CCA M 75 cm/s 13 cm/s 51 cm/s 9 cm/s CCA D 65 cm/s 13 cm/s 57 cm/s 11 cm/s ICA P 40 cm/s 11 cm/s 61 cm/s 15 cm/s ICA M 53 cm/s 15 cm/s 68 cm/s 14 cm/s ICA D 72 cm/s 18 cm/s 93 cm/s ECA 75 cm/s 32 cm/s Vertebral 25 cm/s Right Left ICA/CCA Ratio 1.1 0.6 [id number] Miranda Tinoco MD, [facility] Final Miranda Tran M D - 08/25/[address], [address] [place] [address] Vascular Lab Report [facility] US CAROTID ARTERY DUPLEX BILATERAL Patient Name: ANN MARIE Ferro Physician: [id number] Miranda Tinoco MD, [facility] Study Date: 08/21/2023 Ordering Provider: [id number] MARY ANNE SNOW MRN/PID: [id number] Fellow: Technologist: Irasema Dooley [facility], T Date of /Age: 3 1940 years Technologist 2: Gender: F Admission Status: Outpatient Location Performed: [facility] Diagnosis/ICD: Occlusion 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; Essential primary hypertension-I10 Indication: Hyperlipidemia, Dizziness, Dementia CPT Codes: 78542 Cerebrovascular Carotid Duplex scan complete CONCLUSIONS: Right Carotid: Findings are consistent with less than 50% stenosis of the right proximal internal carotid artery. Laminar flow seen by color Doppler. Right external carotid artery appears patent with no evidence of stenosis. No evidence of hemodynamically significant stenosis of the right common carotid artery. The right vertebral artery is patent with antegrade flow. No changes since 2019. Left Carotid: Findings are consistent with less than 50% stenosis of the left proximal internal carotid artery. Laminar flow seen by color Doppler. Left external carotid artery appears patent with no evidence of stenosis. No evidence of hemodynamically significant stenosis of the left common carotid artery. The left vertebral artery is patent with antegrade flow. No changes since 2019. Imaging & Doppler Findings: Right Plaque Morph: The proximal right internal carotid artery demonstrates irregular plaque. The distal right common carotid artery demonstrates calcified and irregular plaque. Right Left PSV EDV PSV EDV 59 cm/s 12 cm/s CCA P 92 cm/s 16 cm/s 60 cm/s 12 cm/s CCA M 75 cm/s 13 cm/s 51 cm/s 9 cm/s CCA D 65 cm/s 13 cm/s 57 cm/s 11 cm/s ICA P 40 cm/s 11 cm/s 61 cm/s 15 cm/s ICA M 53 cm/s 15 cm/s 68 cm/s 14 cm/s ICA D 72 cm/s 18 cm/s 93 cm/s ECA 75 cm/s 32 cm/s Vertebral 25 cm/s Right Left ICA/CCA Ratio 1.1 0.6 [id number] Miranda Tinoco MD, FACC Final [facility] Work Phone: US.doppler Carotid arteries - bilateralOrdered By: Miranda Tinoco on 08-25-2023 [facility] Work Phone: US.doppler Carotid arteries - bilateralon 08-21-2023 Radiology Study observation (narrative) [facility] Work Phone: C Urineon 07-21-2023 Bacteria identified Cx Nom (U) Microbiology PROCEDURE: Urine Culture [R1] SOURCE: U CleanCatch BODY SITE: COLLECTED DATE/TIME: 07/19/2023 15:17 EDT RECEIVED DATE/TIME: 07/19/2023 20:19 EDT START DATE/TIME: 07/19/2023 20:19 EDT FREE TEXT SOURCE: ELLEN COOK PA-C, PA-C, ELLEN Bell FINAL REPORTS Final Report [] Verified Date/Time: 07/21/2023 11:07 EDT >100,000 cfu/ml Escherichia coli SUSCEPTIBILITY RESULTS LEGEND: S=Susceptible, N/R=Not Reported, Blank=Data not available, or drug not advisable or tested, I=Intermediate, ESBL=Extended spectrum beta-lactamase, R=Resistant, TFG=Thymidine-depende nt strain, GABRIELLA=Beta-lactamase positive, JENNIE=mcg/m;(mg/L), S*=Predicted susceptible interp, R*=Predicted resistant interp EC Antibiotic JENNIE Dilutn JENNIE Interp Amikacin <=16 S Ampicillin <=8 S Ampicillin/ <=8/4 S Sulbactam Aztreonam <=4 S Cefazolin <=2 S Cefepime <=2 S Cefoxitin <=8 S Ceftazidime <=1 S Ceftazidime/ <=8 S Avibactam Ceftriaxone <=1 S Ciprofloxacin <=1 S Ertapenem <=0.5 S Gentamicin <=4 S Levofloxacin <=2 S Meropenem <=1 S Nitrofurantoin <=32 S Piperacillin/ <=16 S Tazobactam Tetracycline <=4 S Tigecycline <=2 S Tobramycin <=4 S Trimethoprim/ <=2/38 S Sulfa Performing Locations R1: This test was performed at: [facility], [address] [place] [address], [address]- , [place], Normal [facility] Comment on above: Performed By: #### 2 [id number] #### [facility] [address] [place] [id number] URINALYSISOrdered By: Robel Williamson on 07-19-2023 Bacteria LM Ql (Urine sed) 3+ /HPF Invalid Interpretation Code Trace/HPF [facility] UA Auto SS Bilirubin Ql (U) Negative (07/19/23 3:17 PM) Normal Negative [facility] UA Auto SS Clarity (U) Cloudy *ABN* (07/19/23 3:17 PM) Invalid Interpretation Code Clear [facility] UA Auto SS Color (U) Dark Yellow *ABN* (07/19/23 3:17 PM) Invalid Interpretation Code Yellow [facility] UA Auto SS Epithelial cells.squamous LM.HPF (Urine sed) [#/Area] 0-2 /HPF Normal 0-2/HPF [facility] UA Aut o SS Glucose Test strip (U) [Mass/Vol] Negative (07/19/23 3:17 PM) Normal Negative [facility] UA Auto SS Hemoglobin Ql (U) Negative (07/19/23 3:17 PM) Normal Negative [facility] UA Auto SS Ketones (U) [Mass/Vol] Trace *ABN* (07/19/23 3:17 PM) Invalid Interpretation Code Negative [facility] UA Auto SS Golva.plasma/Lithiu m.RBC (Bld) [Mass ratio] 0-3 /HPF Normal 0-3/HPF [facility] UA Auto SS Nitrite Ql (U) Negative (07/19/23 3:17 PM) Normal Negative [facility] UA Auto SS pH (U) 5.5 *NA* (07/19/23 3:17 PM) Invalid Interpretation Code 5.0 - 9.0 [facility] UA Auto SS Protein (U) [Mass/Vol] 1+ *ABN* (07/19/23 3:17 PM) Invalid Interpretation Code Negative [facility] UA Auto SS Specific gravity (U) [Rel density] 1.025 *NA* (07/19/23 3:17 PM) Invalid Interpretation Code 1.005 - 1.030 [facility] UA Auto SS UA Spec Desc Clean Catch (07/19/23 3:17 PM) Normal [facility] UA Auto SS Urobilinogen Qn (U) 0.2578397 {Ham'U}/dL Normal 0.0 - 1.0 EU/dL [facility] UA Auto SS WBC Auto Ql (U) 3+ *ABN* (07/19/23 3:17 PM) Invalid Interpretation Code Negative [facility] UA Auto SS WBC casts LM.LPF (Urine sed) [#/Area] 0-3 (10/11/23 3:17 PM) Normal [facility] UA Auto SS WBC LM.HPF (Urine sed) [#/Area] /[HPF] Invalid Interpretation Code 0-5/HPF [facility] UA Auto SS Urinalysison 07-19-2023 Bacteria LM Ql (Urine sed) 3+ /HPF Abnormal Trace [facility] Comment on above: Performed By: #### 1 [id number] #### [facility] [address] [place] [address] Bilirubin Ql (U) Negative Normal Negative [facility] Comment on above: Performed By: #### 1 [id number] #### [facility] [address] [place] [address] Clarity (U) CLOUDY Abnormal Clear [facility] Comment on above: Performed By: #### 1 [id number] #### [facility] [address] [place] [address] Color (U) DARK YELLO Abnormal Yellow [facility] Comment on above: Performed By: #### 1 [id number] #### [facility] [address] [place] [address] Epithelial cells.squamous LM.HPF (Urine sed) [#/Area] 0-2 Normal 0-2 [facility] Comment on above: Performed By: #### 1 [id number] #### [facility] [address] [place] [address] Glucose Test strip (U) [Mass/Vol] Negative Normal Negative [facility] Comment on above: Performed By: #### 1 [id number] #### [facility] [address] [place] [address] Hemoglobin Ql (U) Negative Normal Negative [facility] Comment on above: Performed By: #### 1 [id number] #### [facility] [address] [place] [address] Ketones (U) [Mass/Vol] TRACE Abnormal Negative [facility] Comment on above: Performed By: #### 1 [id number] #### [facility] [address] [place] [address] Golva.plasma/Lithiu m.RBC (Bld) [Mass ratio] 0-3 Normal 0-3 [facility] Comment on above: Performed By: #### 1 [id number] #### [facility] [address] [place] [address] Nitrite Ql (U) Negative Normal Negative [facility] Comment on above: Performed By: #### 1 [id number] #### [facility] [address] [place] [address] pH (U) 5.5 [pH] Invalid Interpretation Code 5.0-9.0 [facility] Comment on above: Performed By: #### 1 [id number] #### [facility] [address] [place] [address] Protein (U) [Mass/Vol] 1+ Abnormal Negative [facility] Comment on above: Performed By: #### 1 [id number] #### [facility] [address] [place] [address] Specific gravity (U) [Rel density] 1.025 Invalid Interpretation Code 1.005-1.030 [facility] Comment on above: Performed By: #### 1 [id number] #### [facility] [address] [place] [address] Type of Urine collection method Clean Catch Normal [facility] Comment on above: Performed By: #### 1 [id number] #### [facility] [address] [place] [address] Urobilinogen Qn (U) 0.2 {Ham'U}/dL Normal 0.0-1.0 [facility] Comment on above: Performed By: #### 1 [id number] #### [facility] [address] [place] [address] WBC Auto Ql (U) 3+ Abnormal Negative [facility] Comment on above: Performed By: #### 1 [id number] #### [facility] [address] [place] [address] WBC casts LM.LPF (Urine sed) [#/Area] 0-3 Normal [facility] Comment on above: Performed By: #### 1 [id number] #### [facility] [address] [place] [address] WBC LM.HPF (Urine sed) [#/Area] /[HPF] Abnormal 0-5 [facility] Comment on above: Performed By: #### 1 [id number] #### [facility] [address] [place] [address] Office Visit (Cardiology)on 06-06-2023 Follow-up visit Diagnoses/Problems Assessed Chest pain (786.50) (R07.9) Essential hypertension (401.9) (I10) Hyperlipidemia (272.4) (E78.5) Never a smoker Overweight with body mass index (BMI) of 27 to 27.9 in adult (278.02,V85.23) (E66.3,Z68.27) PVC (premature ventricular contraction) (427.69) (I49.3) Abnormal stress test (794.39) (R94.39) Bilateral carotid artery stenosis (433.10,433.30) (I65.23) Dizziness (780.4) (R42) Orders Bilateral carotid artery stenosis Renew: Aspirin 81 MG Oral Tablet Delayed Release; TAKE 1 TABLET DAILY Bilateral carotid artery stenosis, Essential hypertension [facility] LAB Carotid Artery Duplex Ultrasound; Status:Hold For - Scheduling,Retrospect chema Authorization; Requested for:[id number]; Laterality : Bilateral Essential hypertension Renew: Carvedilol 12.5 MG Oral Tablet; TAKE 1 TABLET TWICE DAILY Overweight with body mass index (BMI) of 27 to 27.9 in adult Healthy Weight Tips; Status:Complete - Retrospective Authorization; Done: [id number] Some eating tips that can help you lose weight.; Status:Complete - Retrospective Authorization; Done: [id number] SocHx: Never a smoker Tobacco Use Screening; Status:Complete; Done: [id number] Patient Instructions Please bring all medicines, vitamins, and herbal supplements with you when you come to the office. Prescriptions will not be filled unless you are compliant with your follow up appointments or have a follow up appointment scheduled as per instruction of your physician. Refills should be requested at the time of your visit. Follow up in 1 year. carotid duplex Same meds. Chief Complaint ANN MARIE SERGIO is being seen for an annual follow-up of. History of Present Illness Patient is here for follow-up continue management for previous evaluation for vague chest pain, hypertension, hyperlipidemia and coronary disease. Her cardiac work-up was benign. Since last time I saw her she denies complaint of chest pain, palpitation, lightheadedness, dizziness or syncope. Family continues to be concerned about general decline of her cognitive function. She has been diagnosed with dementia. She was in the hospital 1 occasion with mental status changes. I was able to retrieve and review the record. ASSESSMENT: 1. Prior evaluation for very vague and atypical chest pain. Lexiscan myocardial perfusion study was negative for myocardial ischemia but did have nonspecific ST-T changes which is nonsignificant and female gender. Appears stable. She denies any recurrence 2. Hypertension, controlled 3.. Hyperlipidemia, we will try to retrieve her recent lab work 4.. Documentation of premature ventricular contractions remotely felt to be benign, based on prior evaluation. 5. Moderate bilateral carotid disease. Based on carotid in 2019 6..Mild senile dementia RECOMMENDATION: 1. The patient was advised to remain on present medical regimen. I did review with her the results of her previous stress test and I recommended observant approach 2. I will see her back in the office in 1 year and plan to repeat her carotid Doppler prior to next year 3. Patient was counseled regarding diet and exercise and advised her not to lose anymore weight 4. I advised her to notify me change in cardiac status or symptoms 5. We will try to retrieve her recent lab work Surgical History Problems History of Appendectomy History of Bladder surgery History of Cholecystectomy History of Complete colonoscopy managed by perico llanes History of Tonsillectomy Current Meds Medication NameInstruction amLODIPine Besylate 10 MG Oral TabletTAKE 1 TABLET DAILY. Aspirin 81 MG Oral Tablet Delayed ReleaseTAKE 1 TABLET DAILY. Brain TABSTAKE 2 TABLET Daily Carvedilol 12.5 MG Oral TabletTAKE 1 TABLET TWICE DAILY. Estradiol 0.1 MG/GM Vaginal CreamINSERT 1 GRAM TWICE PER A WEEK VIA VAGINAL ROUTE Ketoconazole 2 % External CreamAPPLY SPARINGLY TO AFFECTED AREA(S) ONCE DAILY Lavela WS 1265 80 MG Oral Capsuletwice daily as needed Neuro Rudolph TABSTAKE DIRECTED. Pristiq HR40jvs daily Rosuvastatin Calcium 40 MG Oral TabletTAKE 1 TABLET AT BEDTIME Vitamin C 1000 MG Oral TabletTAKE 1 TABLET DAILY. Vitamin D3 25 MCG (1000 UT) Oral CapsuleTAKE 1 CAPSULE Daily Vitamin E 1000 UNIT Oral CapsuleTAKE 1 CAPSULE Daily Allergies Medication Penicillins Rash; Recorded By: Radha Saldivar; 08/07/2021 8:18:17 AM sulfa Rash; Recorded By: Radha Saldivar; 08/07/2021 8:18:17 AM Social History Problems Caffeine use (V49.89) (Z78.9) decaff occasional coffee, 1-2 cups of ohtt lionel daily decaf and herbal tea 2-3 times a week Never a smoker No alcohol use No illicit drug use Review of Systems Constitutional: not feeling tired. Cardiovascular: no intermittent leg claudication and as noted in HPI. Respiratory: no cough and no shortness of breath. Gastrointestinal: no change in bowel habits and no blood in stools. Integumentary: no skin rashes. Neurological: no seizures and no fr (more content not included)... Normal [facility] Tobacco Screening.on 023 Adult depression screening assessment No [facility] [place] [address] DO Work Phone: Fall risk assessment a) No falls within the last year [facility] [place] 250 DO Work Phone: Tobacco use status [facility] b) No [facility] [place] 250 DO Work Phone: CNOVon 05-19-2023 CNOV Office Visit (MEDN ) ANN MARIE HILL ([id number]) 1940 F Date Time Provider Department 05/19/23 3:30 PM [facility] your visit today, we recorded the following information about you: Pulse Blood pressure Weight Height 76/minute 124/63 70.9 kg 1.575 m Christiana Montero MD 05/19/2023 7:37 PM Signed FUNCTIONAL MEDICINE FOLLOW-UP ASSESSMENT Patient: Ann Marie Hill 70.9 kg (156 lb 6.4 oz) 157.5 cm (5' 2 ) Body mass index is 28.61 kg/m?. Resting Metabolic Rate: 1046 Waist measurement: No waist measurement recorded. BP: 124/63 ALLERGIES Allergen Reactions Ciprofloxacin Unknown Penicillins Hives Sulfa (Sulfonamide * Rash Current Outpatient Medications on File Prior to Visit Medication Sig desvenlafaxine ER (PRISTIQ) 50 mg 24 hr tablet Take 50 mg by mouth once daily. vitamin E, dl,tocopheryl acet, (VITAMIN E, DL, ACETATE, ORAL) Take 1,000 Units by mouth once daily. B-Complex Plus (Pure Encapsulations) Take 2 capsules by mouth daily with food. (Patient not taking: Reported on 10/31/2022) Multi t/d 60 ct. (Pure Encapsulations) - multivitamin Take 1 capsule by mouth twice daily with meals. (Patient not taking: Reported on 10/31/2022) OmegaGenics EPA-DHA 2400 (High Concentrate EPA/DHA liquid) (Beegit) Take one teaspoon (5 ml) 1 times daily with food [employer] Synergy (All Web Leads) antibacterial Take 1 capsule by mouth twice daily. Brain Misael Capsules (All Web Leads) Take 2 tablets by mouth w MEALS. Neuromag ( All Web Leads ) 90 ct Take 3 capsules per day or as directed by a healthcare professional. Osiris WS 1265 ([employer]rapeutics) sleep/calming/anxiety 1 at bedtime - may also use 1 in AM for relaxation/anxiety coQ10, ubiquinol, 100 mg cap Take 1 capsule daily with a meal. rosuvastatin (CRESTOR) 40 mg tablet Take 40 mg by mouth once daily. carvedilol (COREG) 12.5 mg tablet Take 12.5 mg by mouth twice daily. aspirin, enteric coated (ASPIRIN, ENTERIC COATED) 81 mg EC tablet Take 81 mg by mouth once daily. cholecalciferol (VITAMIN D3) 50 mcg (2,000 unit) tablet Take 2,000 Units by mouth once daily. (Patient not taking: Reported on 10/31/2022) Ascorbic Acid 1,000 mg TbER Take by mouth. (Patient not taking: Reported on 10/31/2022) amLODIPine (NORVASC) 5 mg tablet Take 1 tablet by mouth twice daily. No current facility-administered medications on file prior to visit. PAST MEDICAL HISTORY Diagnosis Date Alzheimer disease (HCC) HTN (hypertension) No past surgical history on file. No family history on file. Social History Tobacco Use Smoking status: Never Smokeless tobacco: Never EVALUATION Patient presents with: Established Patient 05/19/2023 Christiana Montero MD Last Visit on Oct 2022 Provider: Kylah 05/19/2023 Christiana Montero MD Last Visit on January 2023 Provider Kylah Symptoms What is the severity of your symptoms? No shift or change at this time - still with sundowning - worse at 4 PM (agitation) - diet with more sugar in PM Complete Glyphosate but NOT able to report GPL-Tox. No longer in area direct exposure. Following the recommended food plan? No - more sugar. January 2023 Christiana Montero MD Last Visit on Oct 2022 Provider: Kylah Symptoms What is the severity of your symptoms? Overall patient has no complaints. Dementia - Wandering at night Daughter noting more anxiety (placed on abilify by PCP with Pristiq). NOting weight gain > 10 lbs. Diet more processed / refined with eating out Nutrition - completed NutrEval for review from last visit in Oct. 10/31/2022 Christiana Montero MD Last Visit on July 2022 Provider: Kylah Symptoms What is the severity of your symptoms?Noting more anxious / fear in evening - progressive. Noting more behavioral changes with ? Auditory. Noting no shift in medication / supplement. Noting no shift in behavioral medication Following the recommended food plan? 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 What symptoms have improved: none at this time Supplements Are you taking recommended supplements? Yes - holding due to NutrEval this PM Exercise Are you performing routine exercise at this time? No due to energy and weather. Sleep Habit How long are you sleeping for? Too many 10 to 12 hours. Noting 10 PM with awakening at 8 to 9 AM. With nap in afternoon Bowel Habits Do you have a daily bowel movement? Yes 07/25/2022 Christiana Montero MD Last Visit on March 2022 Provider Kvng Symptoms What is the severity of your symptoms? Noting short term memory declining along with awareness. Sundowning. Noting shift to Pristiq from lexapro with benefit less agitation. Sleeping majority of day in AM upon awakening and eating - total sleep 10 to 12 hours +. Following the recommended food plan? Mainly following ket (more content not included)... Normal [facility] ED Note-Physicianon 05-15-20 ED Note-Physician [id number] 1.00CD:127 Normal [facility] 04-26-2023 Screens [id number] .00CD:127 Normal [facility] Ambulatory Visit Summaryon 0 04-25-2023 Ambulatory Visit Summary ANN MARIE HILL :1940 Visit Date:04/25/2023 Ambulatory Visit Instructions Your Diagnosis Chronic cystitis Postinfective urethral stricture in female Your Care Team Attending Physician - ELLEN COOK PA-C Primary Care Physician - Meng Prater MD This Is Your Medications List clobetasol topical (clobetasol Top 0.05% Crm 15 gram) estradiol topical (estradiol 0.1 mg/g Vag Crm) Contact prescribing physician if questions or concerns amlodipine (Norvasc 10 mg Tab) ascorbic acid (Vitamin C) aspirin (aspirin 81 mg oral capsule) carvedilol (Coreg 12.5 mg Tab) carvedilol (Coreg 6.25 mg Tab) cholecalciferol (Vitamin D3) desvenlafaxine (Pristiq) escitalopram (Lexapro 10 mg Tab) escitalopram (Lexapro 20 mg Tab) estradiol topical (estradiol 0.1 mg/g Vag Crm) omega-3 polyunsaturated fatty acids ([place]-3 350 mg oral capsule) ubiquinone (Co Q-10) valsartan (valsartan 80 mg Tab) vitamin E Procedures Performed Cystourethroscopy with dilation of urethral stricture (02/12/2019). Discharge Vitals Heart Rate (Peripheral) 72 Respiratory Rate 16 Blood Pressure 130/80 Height 157 cm Height 62 in Weight 60.8 kg Weight 133.76 lb BMI 24.67 What to do next You Need to Schedule the Following Appointments Follow Up with ELLEN COOK PA-C, URL When: Where: [address] [place] [address] Medications What How Much When Instructions Unchanged clobetasol topical (clobetasol Top 0.05% Crm 15 gram) See instructions 4x a week as needed Unchanged estradiol topical (estradiol 0.1 mg/ g Vag Crm) 1 Gram Vaginal Monday & Monday Unchanged amlodipine (Norvasc 10 mg Tab) 1 Tablets By Mouth Every day Contact prescribing physician if questions or concerns Unchanged ascorbic acid (Vitamin C) See instructions Daily Contact prescribing physician if questions or concerns Unchanged aspirin (aspirin 81 mg oral capsule) By Mouth Every 4 hours Contact prescribing physician if questions or concerns Unchanged carvedilol (Coreg 12.5 mg Tab) By Mouth 2 times a day Contact prescribing physician if questions or concerns Unchanged carvedilol (Coreg 6.25 mg Tab) 0.5 Tablets By Mouth 2 times a day Contact prescribing physician if questions or concerns Unchanged cholecalciferol (Vitamin D3) Contact prescribing physician if questions or concerns Unchanged desvenlafaxine (Pristiq) By Mouth Every day Contact prescribing physician if questions or concerns Unchanged escitalopram (Lexapro 10 mg Tab) 1 Tablets By Mouth Every day Contact prescribing physician if questions or concerns Unchanged escitalopram (Lexapro 20 mg Tab) By Mouth Every day Contact prescribing physician if questions or concerns Unchanged estradiol topical (estradiol 0.1 mg/ g Vag Crm) Contact prescribing physician if questions or concerns Unchanged omega-3 polyunsaturated fatty acids (T[place]lequ[place]-3 350 mg oral capsule) By Mouth Every day Contact prescribing physician if questions or concerns Unchanged ubiquinone (Co Q-10) By Mouth Every day Contact prescribing physician if questions or concerns Unchanged valsartan (valsartan 80 mg Tab) By Mouth Every day Contact prescribing physician if questions or concerns Unchanged vitamin E By Mouth Every day Contact prescribing physician if questions or concerns Allergies Macrobid (itching) penicillins (Unknown) sulfa drugs (Unknown) Problems Ongoing - Any problem that you are currently receiving treatment for. Chronic cystitis Dementia Dysuria Hematuria, microscopic Hyperlipidemia Hypertension Postinfective urethral stricture in female Suprapubic pain Urethritis Education Materials Urinary Tract Infection, Adult A urinary tract infection (UTI) is an infection of any part of the urinary tract. The urinary tract includes: ? The kidneys. ? The ureters. ? The bladder. ? The urethra. These organs make, store, and get rid of pee (urine) in the body. What are the causes? This infection is caused by germs (bacteria) in your genital area. These germs grow and cause swelling (inflammation) of your urinary tract. What increases the risk? The following factors may make you more likely to develop this condition: ? Using a small, thin tube (catheter) to drain pee. ? Not being able to control when you pee or poop (incontinence). ? Being female. If you are female, these things can increase the risk: ? Using these methods to prevent : ? A medicine that kills sperm (spermicide). ? A device that blocks sperm (diaphragm). ? Having low levels of a female hormone (estrogen). ? Being . You are more likely to develop this condition if: ? You have genes that add to your risk. ? You are sexually active. ? You take antibiotic medicines. ? You have trouble peeing because of: ? A prostate that is bigger than normal, if you are male. ? A blockage i (more content not included)... Normal [facility] Patient Educationon 04-25-20 Patient Education Obstetrics and Gynecology Urinary Tract Infection, Adult A urinary tract infection (UTI) is an infection of any part of the urinary tract. The urinary tract includes: ? The kidneys. ? The ureters. ? The bladder. ? The urethra. These organs make, store, and get rid of pee (urine) in the body. What are the causes? This infection is caused by germs (bacteria) in your genital area. These germs grow and cause swelling (inflammation) of your urinary tract. What increases the risk? The following factors may make you more likely to develop this condition: ? Using a small, thin tube (catheter) to drain pee. ? Not being able to control when you pee or poop (incontinence). ? Being female. If you are female, these things can increase the risk: ? Using these methods to prevent : ? A medicine that kills sperm (spermicide). ? A device that blocks sperm (diaphragm). ? Having low levels of a female hormone (estrogen). ? Being . You are more likely to develop this condition if: ? You have genes that add to your risk. ? You are sexually active. ? You take antibiotic medicines. ? You have trouble peeing because of: ? A prostate that is bigger than normal, if you are male. ? A blockage in the part of your body that drains pee from the bladder. ? A kidney stone. ? A nerve condition that affects your bladder. ? Not getting enough to drink. ? Not peeing often enough. ? You have other conditions, such as: ? Diabetes. ? A weak disease-fighting system (immune system). ? Sickle cell disease. ? Gout. ? Injury of the spine. What are the signs or symptoms? Symptoms of this condition include: ? Needing to pee right away. ? Peeing small amounts often. ? Pain or burning when peeing. ? Blood in the pee. ? Pee that smells bad or not like normal. ? Trouble peeing. ? Pee that is cloudy. ? Fluid coming from the vagina, if you are female. ? Pain in the belly or lower back. Other symptoms include: ? Vomiting. ? Not feeling hungry. ? Feeling mixed up (confused). This may be the first symptom in older adults. ? Being tired and grouchy (irritable). ? A fever. ? Watery poop (diarrhea). How is this treated? ? Taking antibiotic medicine. ? Taking other medicines. ? Drinking enough water. In some cases, you may need to see a specialist. Follow these instructions at home: Medicines ? Take [id number] and prescription medicines only as told by your doctor. ? If you were prescribed an antibiotic medicine, take it as told by your doctor. Do not stop taking it even if you start to feel better. General instructions ? Make sure you: ? Pee until your bladder is empty. ? Do not hold pee for a long time. ? Empty your bladder after sex. ? Wipe from front to back after peeing or pooping if you are a female. Use each tissue one time when you wipe. ? Drink enough fluid to keep your pee pale yellow. ? Keep all follow-up visits. Contact a doctor if: ? You do not get better after 1?2 days. ? Your symptoms go away and then come back. Get help right away if: ? You have very bad back pain. ? You have very bad pain in your lower belly. ? You have a fever. ? You have chills. ? You feeling like you will vomit or you vomit. Summary ? A urinary tract infection (UTI) is an infection of any part of the urinary tract. ? This condition is caused by germs in your genital area. ? There are many risk factors for a UTI. ? Treatment includes antibiotic medicines. ? Drink enough fluid to keep your pee pale yellow. This information is not intended to replace advice given to you by your health care provider. Make sure you discuss any questions you have with your health care provider. Document Revised: 05/07/2021 Document Reviewed: 05/07/2021 [employer] Patient Education ? 2022 [employer]. Normal [facility] Urology Office/Clinic Noteon 04-25-2023 Urology Office/Clinic Note Chief Complaint 8m HPI Staff PRW pt. Has Alzheimer's. Here with her Orestes. 8m f/u to chronic cystitis & Urethral Stricture. *Estradiol 1gm 2x/wk & Clobetasol PRN therapy. Unable to run urine specimen due to urine not being caught in collection device. Last Cysto/UD 02/2019 No UA at time of last encounter, pt dropped off a few days later. Showed 2+ leuks. Asymptomatic. No Tx. +C&S 02/27/23 [facility] *Tx'd w/5 day Macrobid therapy. Increased frequency, q hr at times. Does get up 2x/night to void. PVR 18ml History of Present Illness staff HPI reviewed and agree. Review of Systems no fever, chills, malaise, myalgia. no rash/lesions. no chest pain, palpitations, or SOB. no abdominal pain, nausea, vomiting. no unilateral calf swelling, redness, pain answers Physical Exam Vitals & Measurements HR: 72(Peripheral) RR: 16 BP: 130/80 HT: 62 in HT: 157 cm WT: 60.8 kg WT: 133.76 lb BMI: 24.67 General: nontoxic, NAD Mouth: moist mucosa Lungs: normal respiratory effort Cardio: regular rate, good distal perfusion Abdomen: nondistended, no suprapubic distention or tenderness, no CVA tenderness Skin: No rashes or suspicious lesions Assessment/Plan PRW pt. Has Alzheimer's. Here with her Orestes who provides history PVR 18ml, ICIQ-SF 0 1. Chronic cystitis (N30.20: Other chronic cystitis without hematuria) 2019 - on daily Macrobid for 4 mos. then thought sx were more vaginal than urinary. started on Estradiol 1gm 2x/wk and Clobetasol PRN. these were dc'd by [facility] provider and she was started on supplements. LANGUAGE THERAPIST Dr Ballesteors, started her on Estradiol 1gm again. and then we started back on the Clobetasol. She is currently using both creams as needed and husbands says it helps a lot. +C&S 02/27/23 [facility] *Tx'd w/5 day Macrobid therapy. Pt was unable to give UA today. husbands says she had urine checked 1 week ago and it did not show infection. Pt is experiencing increased frequency, q hr at times, and does get up 2x/night to void, going on for the last few weeks. Pt's denies any visible blood in the urine or cloudiness. Pt's states she drinks plenty of water. Pt's BM's are normal. Pt does drink a soda, clear (zevia), normally with dinner. Discussed that if her symptoms are most likely not due to a UTI, or diet related, then the increased frequency could be related to her Alzheimer's. admits that a lot of the times she goes to the restroom she doesn't really get anything out. Just feels like she needs to. Advised pt's that if the symptoms are not bothersome to pt, to just continue to monitor for now. Agrees w plan. 2. Postinfective urethral stricture in female (N35.12: Postinfective urethral stricture, not elsewhere classified, female) S/p Cysto/UD 02/2019 Follow up in 6-12mos. All questions/concerns were discussed. Pt to call the office if she encounters any issues prior. Pt acknowledges understanding. Follow-up With When Contact Information DANIEL BOYER, ELLEN Bell, URL [address] [address] Additional Instructions: Patient Education Urinary Tract Infection, Adult, [id number] Documentation recorded by the scribchris Valdez accurately reflects the services(s) I performed and decisions made by me. Authenticated by Ellen Cook PA-C on 04/25/2023 12:54:27. I, Di Valdez, personally scribed for Ellen Cook PA-C on 04/25/2023 12:21:05. . Problem List/Past Medical History Ongoing Chronic cystitis Dementia Dysuria Hematuria, microscopic Hyperlipidemia Hypertension Postinfective urethral stricture in female Suprapubic pain Urethritis Historical No qualifying data Procedure/Surgical History Cystourethroscopy with dilation of urethral stricture (02/12/2019). Medications aspirin 81 mg oral capsule, Oral, q4hr clobetasol Top 0.05% Crm 15 gram, See Instructions, 1 refills Co Q-10, Oral, Daily Coreg 12.5 mg Tab, Oral, BID Coreg 6.25 mg Tab, 3.125 mg= 0.5 tab(s), Oral, BID estradiol 0.1 mg/g Vag Crm, 1 gm, Vaginal, TueSat, 3 refills estradiol 0.1 mg/g Vag Crm Lexapro 10 mg Tab, 10 mg= 1 tab(s), Oral, Daily Lexapro 20 mg Tab, Oral, Daily Norvasc 10 mg Tab, 10 mg= 1 tab(s), Oral, Daily Tahlequah-3 350 mg oral capsule, Oral, Daily Pristiq, Oral, Daily valsartan 80 mg Tab, Oral, Daily Vitamin C, See Instructions Vitamin D3 vitamin E, Oral, Daily Allergies Macrobid (itching) penicillins (Unknown) sulfa drugs (Unknown) Social History Alcohol - Denies Alcohol Use, 05/06/2019 Substance Abuse - Denies Substance Abuse, 10/21/2019 Tobacco - Denies Tobacco Use, 10/21/2019 Never (less than 100 in lifetime) Tobacco Use:. Never Smokeless Tobacco Use:. Household tobacco concerns: No., 04/25/2023 Family History Dementia: Mother. Hyperlipidemia: Mother. Hypertension: Mother. Immunizations Vaccine Date Status Comments (more content not included)... Normal [facility] Comment on above: Result Comment: Elec tronically Signed By: ELLEN COOK PA-C.br\Date and Time Signed: 04/25/23 12:54 EDT\.br\Electronically Co-Signed By: Di Valdez\.br\Date and Time Co-Signed: 04/25/23 12:21 EDT Ambulatory Visit Summaryon 0 04-17-2023 Ambulatory Visit Summary ANN MARIE HILL :1940 Visit Date:04/17/2023 Ambulatory Visit Instructions Your Care Team Attending Physician - Kunal LORA MD Primary Care Physician - Meng Prater MD This Is Your Medications List amlodipine (Norvasc 10 mg Tab) ascorbic acid (Vitamin C) aspirin (aspirin 81 mg oral capsule) carvedilol (Coreg 12.5 mg Tab) carvedilol (Coreg 6.25 mg Tab) cholecalciferol (Vitamin D3) clobetasol topical (clobetasol Top 0.05% Crm 15 gram) desvenlafaxine (Pristiq) escitalopram (Lexapro 10 mg Tab) escitalopram (Lexapro 20 mg Tab) estradiol topical (estradiol 0.1 mg/g Vag Crm) estradiol topical (estradiol 0.1 mg/g Vag Crm) omega-3 polyunsaturated fatty acids ([place]qu[place]-3 350 mg oral capsule) ubiquinone (Co Q-10) valsartan (valsartan 80 mg Tab) vitamin E Procedures Performed Cystourethroscopy with dilation of urethral stricture (02/12/2019). What to do next Scheduled Follow-Up Appointments Monday 2:15 PM EDT With: GENO WATTS, Kunal Heller Where: [facility] 02-22-2023 [facility] Telephone ([employer]) ANN MARIE HILL ([id number]) 1940 F Date Time Provider Department 02/22/23 MODLOCHRISTIANA During your visit today, we recorded the following information about you: Audrey Singh 02/22/2023 12:21 PM Addendum Patient's spouse, Orestes called (confirmed Ann Marie's ), Ann Marie was seen by Dr. Christiana Montero. They received a test kit from [facility] in the mail and not sure what it is? Does she need to do this and what is it for. Dr. Montero did not mention anything at her last visit with him. He is asking if Concepcion can call Orestes back (he stated he is POA) on his cell ph# [phone] OR [phone]. Audrey Montero MD 02/22/2023 5:54 PM Signed Use of GPL Tox is due to her history of exposure to farming / crops in area. I do recall asking this at visit. This test is to see if toxin burden from these is present. MD Carine Grimaldo 02/23/2023 11:00 AM Signed Patient has been identified by name and date of : Yes Reason for call: Patient spouse asked if the test can be done at the [facility]? He prefer not to have if done at home. Needs to know what the test is for and if its needs be done? He is asking for explanation and call back. Please call spouse on cell phone. 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 He stated this test is not covered under his insurance and wants to know if it is necessary or urgent, please advise. Christiana Montero MD 02/23/2023 2:53 PM Signed Recommended but not required. MD Marta Grimaldo LPN 02/23/2023 3:11 PM Signed Spoke to Orestes, relayed Dr Montero's recommendation regarding GPL test. All questions answered with understanding voiced. Allergies As of Date: 02/22/2023 Noted Allergy Reaction CIPROFLOXACIN 06/13/2019 16 - Unknown PENICILLINS 09/03/2013 4 - Hives SULFA (SULFONAMIDE ANTIBIOTICS) 06/13/2019 2 - Rash Date Reviewed: 02/03/2023 Reviewed by: Claudio Metz Ma - Fully Assessed Reason for Visit: Patient Question [3537] Prescriptions as of 02/23/2023 - PhytoMulti 60s capsules (Beegit) Take 2 capsules daily, with meals. - Glycine (Pure Encapsulations) Take 1 capsule 3 times daily in divided doses between meals. (1 [id number]) - B-Complex Plus (Pure Encapsulations) Take 1 capsule by mouth daily with food. - Glutathione (Spotify) Use 20 pumps daily (1000mg) divided doses through out the day. (2 pumps = 100 mg Glutathione) - ARIPiprazole (ABILIFY) 2 mg tablet Take 2 mg by mouth once daily. - desvenlafaxine ER (PRISTIQ) 50 mg 24 hr tablet Take 50 mg by mouth once daily. - vitamin E, dl,tocopheryl acet, (VITAMIN E, DL, ACETATE, ORAL) Take 1,000 Units by mouth once daily. - OmegaGenics EPA-DHA 2400 (High Concentrate EPA/DHA liquid) (Beegit) Take one teaspoon (5 ml) 1 times daily with food - UT Synergy (All Web Leads) antibacterial Take 1 capsule by mouth twice daily. - Neuromag ( All Web Leads ) 90 ct Take 3 capsules per day or as directed by a healthcare professional. - coQ10, ubiquinol, 100 mg cap Take 1 capsule daily with a meal. - rosuvastatin (CRESTOR) 40 mg tablet Take 40 mg by mouth once daily. - carvedilol (COREG) 12.5 mg tablet Take 12.5 mg by mouth twice daily. - aspirin, enteric coated (ASPIRIN, ENTERIC COATED) 81 mg EC tablet Take 81 mg by mouth once daily. - cholecalciferol (VITAMIN D3) 50 mcg (2,000 unit) tablet Take 2,000 Units by mouth once daily. - Ascorbic Acid 1,000 mg TbER Take by mouth. - amLODIPine (NORVASC) 5 mg tablet Take 1 tablet by mouth twice daily. Problem List As Of Date 02/22/2023 Noted Resolved ASCVD (arteriosclerotic cardiovascular disease)*07/07/2020 Hyperlipidemia [E78.5] 07/07/2020 Hypertension [I10] 07/07/2020 Late onset Alzheimer's disease with behavioral *07/07/2020 Encounter Status:Closed by MARTA COELHO on 02/23/23 [facility] Michelle 02-17-2023 [facility] Telephone ([facility]) ANN MARIE HILL ([id number]) 1940 F Date Time Provider Department 02/17/23 KASEY RAEGabriella During your visit today, we recorded the following information about you: Evelyn Flaherty LPN 02/17/2023 8:19 AM Signed NUTRITION RESOURCES SENT VIA [employer]. Evelyn Flaherty LPN February 17, 2023 8:17 AM Allergies As of Date: 02/17/2023 Noted Allergy Reaction CIPROFLOXACIN 06/13/2019 16 - Unknown PENICILLINS 09/03/2013 4 - Hives SULFA (SULFONAMIDE ANTIBIOTICS) 06/13/2019 2 - Rash Date Reviewed: 02/03/2023 Reviewed by: Claudio Metz Ma - Fully Assessed Reason for Visit: Appointment [186] Prescriptions as of 02/17/2023 - PhytoMulti 60s capsules (Metagenics) Take 2 capsules daily, with meals. - Glycine (Pure Encapsulations) Take 1 capsule 3 times daily in divided doses between meals. (1 [id number]) - B-Complex Plus (Pure Encapsulations) Take 1 capsule by mouth daily with food. - Glutathione (Spotify) Use 20 pumps daily (1000mg) divided doses through out the day. (2 pumps = 100 mg Glutathione) - ARIPiprazole (ABILIFY) 2 mg tablet Take 2 mg by mouth once daily. - desvenlafaxine ER (PRISTIQ) 50 mg 24 hr tablet Take 50 mg by mouth once daily. - vitamin E, dl,tocopheryl acet, (VITAMIN E, DL, ACETATE, ORAL) Take 1,000 Units by mouth once daily. - OmegaGenics EPA-DHA 2400 (High Concentrate EPA/DHA liquid) (Beegit) Take one teaspoon (5 ml) 1 times daily with food - UT Synergy (All Web Leads) antibacterial Take 1 capsule by mouth twice daily. - Neuromag ( All Web Leads ) 90 ct Take 3 capsules per day or as directed by a healthcare professional. - coQ10, ubiquinol, 100 mg cap Take 1 capsule daily with a meal. - rosuvastatin (CRESTOR) 40 mg tablet Take 40 mg by mouth once daily. - carvedilol (COREG) 12.5 mg tablet Take 12.5 mg by mouth twice daily. - aspirin, enteric coated (ASPIRIN, ENTERIC COATED) 81 mg EC tablet Take 81 mg by mouth once daily. - cholecalciferol (VITAMIN D3) 50 mcg (2,000 unit) tablet Take 2,000 Units by mouth once daily. - Ascorbic Acid 1,000 mg TbER Take by mouth. - amLODIPine (NORVASC) 5 mg tablet Take 1 tablet by mouth twice daily. Problem List As Of Date 02/17/2023 Noted Resolved ASCVD (arteriosclerotic cardiovascular disease)*07/07/2020 Hyperlipidemia [E78.5] 07/07/2020 Hypertension [I10] 07/07/2020 Late onset Alzheimer's disease with behavioral *07/07/2020 Encounter Status:Closed by EVELYN FLAHERTY on 02/17/23 [facility] 02-03-2023 CNOV Office Visit ([facility] ) ANN MARIE HILL ([id number]) 1940 F Date Time Provider Department 02/03/23 3:30 PM CHRISTIANA MONTERO During your visit today, we recorded the following information about you: Pulse Blood pressure Weight Height 83/minute 136/59 68.8 kg 1.575 m Christiana Montero MD 02/04/2023 7:35 AM Signed FUNCTIONAL MEDICINE FOLLOW-UP ASSESSMENT Patient: Ann Marie Hill There is no height or weight on file to calculate BMI. Resting Metabolic Rate: 1046 Waist measurement: No waist measurement recorded. BP: ALLERGIES Allergen Reactions Ciprofloxacin Unknown Penicillins Hives Sulfa (Sulfonamide * Rash Current Outpatient Medications on File Prior to Visit Medication Sig desvenlafaxine ER (PRISTIQ) 50 mg 24 hr tablet Take 50 mg by mouth once daily. vitamin E, dl,tocopheryl acet, (VITAMIN E, DL, ACETATE, ORAL) Take 1,000 Units by mouth once daily. B-Complex Plus (Pure Encapsulations) Take 2 capsules by mouth daily with food. (Patient not taking: Reported on 10/31/2022) Multi t/d 60 ct. (Pure Encapsulations) - multivitamin Take 1 capsule by mouth twice daily with meals. (Patient not taking: Reported on 10/31/2022) OmegaGenics EPA-DHA 2400 (High Concentrate EPA/DHA liquid) (Beegit) Take one teaspoon (5 ml) 1 times daily with food UT Synergy (All Web Leads) antibacterial Take 1 capsule by mouth twice daily. Brain Misael Capsules (All Web Leads) Take 2 tablets by mouth w MEALS. Neuromag ( All Web Leads ) 90 ct Take 3 capsules per day or as directed by a healthcare professional. Osiris WILKINSON 1265 ([employer]) sleep/calming/anxiety 1 at bedtime - may also use 1 in AM for relaxation/anxiety coQ10, ubiquinol, 100 mg cap Take 1 capsule daily with a meal. rosuvastatin (CRESTOR) 40 mg tablet Take 40 mg by mouth once daily. carvedilol (COREG) 12.5 mg tablet Take 12.5 mg by mouth twice daily. aspirin, enteric coated (ASPIRIN, ENTERIC COATED) 81 mg EC tablet Take 81 mg by mouth once daily. cholecalciferol (VITAMIN D3) 50 mcg (2,000 unit) tablet Take 2,000 Units by mouth once daily. (Patient not taking: Reported on 10/31/2022) Ascorbic Acid 1,000 mg TbER Take by mouth. (Patient not taking: Reported on 10/31/2022) amLODIPine (NORVASC) 5 mg tablet Take 1 tablet by mouth twice daily. No current facility-administered medications on file prior to visit. PAST MEDICAL HISTORY Diagnosis Date Alzheimer disease (HCC) HTN (hypertension) No past surgical history on file. No family history on file. Social History Tobacco Use Smoking status: Never Smokeless tobacco: Never EVALUATION No chief complaint on file. 02/02/2023 Christiana Montero MD Last Visit on Oct 2022 Provider: Kylah Symptoms What is the severity of your symptoms? Overall patient has no complaints. Dementia - Wandering at night Daughter noting more anxiety (placed on abilify by PCP with Pristiq). NOting weight gain > 10 lbs. Diet more processed / refined with eating out Nutrition - completed NutrEval for review from last visit in Oct. 10/31/2022 Christiana Montero MD Last Visit on July 2022 Provider: Kylah Symptoms What is the severity of your symptoms?Noting more anxious / fear in evening - progressive. Noting more behavioral changes with ? Auditory. Noting no shift in medication / supplement. Noting no shift in behavioral medication Following the recommended food plan? 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 What symptoms have improved: none at this time Supplements Are you taking recommended supplements? Yes - holding due to NutrEval this PM Exercise Are you performing routine exercise at this time? No due to energy and weather. Sleep Habit How long are you sleeping for? Too many 10 to 12 hours. Noting 10 PM with awakening at 8 to 9 AM. With nap in afternoon Bowel Habits Do you have a daily bowel movement? Yes 07/25/2022 Christiana Montero MD Last Visit on March 2022 Provider Kvng Symptoms What is the severity of your symptoms? Noting short term memory declining along with awareness. Sundowning. Noting shift to Pristiq from lexapro with benefit less agitation. Sleeping majority of day in AM upon awakening and eating - total sleep 10 to 12 hours +. Following the recommended food plan? Mainly following keto at this time not measuring ketones in blood or urine. However, fruits at this time. What symptoms have improved: None Supplements Are you taking recommended supplements? Stopped mold detox - sent labs to [facility] (pending) - home testnig. Frustrated with report and not convinced hasissues. Exercise Are you performing routine exercise at this time? No for motivation / function - What kind of exercise? Walking when Sleep Habit How long are you sleeping for? 10 to 12 hours. Bowel Habits (more content not included)... Normal [facility] CNOVon 10-31-2022 CNOV Office Visit ([facility] ) ANN MARIE HILL ([id number]) 1940 F Date Time Provider Department 10/31/22 1:00 PM CHRISTIANA MONTERO [facility] During your visit today, we recorded the following information about you: Temperature Pulse Blood pressure Weight 97.8 degrees 79/minute 143/68 62.2 kg Height 1.575 m Christiana Montero MD 10/31/2022 1:49 PM Signed FUNCTIONAL MEDICINE FOLLOW-UP ASSESSMENT Patient: Ann Marie Hill Body mass index is 25.09 kg/m?. Resting Metabolic Rate: 1039 Waist measurement: No waist measurement recorded. BP: 143/68 ALLERGIES Allergen Reactions Ciprofloxacin Unknown Penicillins Hives Sulfa (Sulfonamide * Rash Current Outpatient Medications on File Prior to Visit Medication Sig desvenlafaxine ER (PRISTIQ) 50 mg 24 hr tablet Take 50 mg by mouth once daily. vitamin E, dl,tocopheryl acet, (VITAMIN E, DL, ACETATE, ORAL) Take 1,000 Units by mouth once daily. B-Complex Plus (Pure Encapsulations) Take 2 capsules by mouth daily with food. Multi t/d 60 ct. (Pure Encapsulations) - multivitamin Take 1 capsule by mouth twice daily with meals. OmegaGenics EPA-DHA 2400 (High Concentrate EPA/DHA liquid) (Beegit) Take one teaspoon (5 ml) 1 times daily with food UT Synergy (All Web Leads) antibacterial Take 1 capsule by mouth twice daily. Brain Misael Capsules (All Web Leads) Take 2 tablets by mouth w MEALS. Neuromag ( All Web Leads ) 90 ct Take 3 capsules per day or as directed by a healthcare professional. Osiris WILKINSON 1265 (Integrative Therapeutics) sleep/calming/anxiety 1 at bedtime - may also use 1 in AM for relaxation/anxiety coQ10, ubiquinol, 100 mg cap Take 1 capsule daily with a meal. rosuvastatin (CRESTOR) 40 mg tablet Take 40 mg by mouth once daily. carvedilol (COREG) 12.5 mg tablet Take 12.5 mg by mouth twice daily. aspirin, enteric coated (ASPIRIN, ENTERIC COATED) 81 mg EC tablet Take 81 mg by mouth once daily. cholecalciferol (VITAMIN D3) 50 mcg (2,000 unit) tablet Take 2,000 Units by mouth once daily. Ascorbic Acid 1,000 mg TbER Take by mouth. amLODIPine (NORVASC) 5 mg tablet Take 1 tablet by mouth twice daily. No current facility-administered medications on file prior to visit. PAST MEDICAL HISTORY Diagnosis Date Alzheimer disease (HCC) HTN (hypertension) No past surgical history on file. No family history on file. Social History Tobacco Use Smoking status: Never Smokeless tobacco: Never EVALUATION Patient presents with: Established Patient 10/31/2022 Christiana Montero MD Last Visit on July 2022 Provider: Kylah Symptoms What is the severity of your symptoms?Noting more anxious / fear in evening - progressive. Noting more behavioral changes with ? Auditory. Noting no shift in medication / supplement. Noting no shift in behavioral medication Following the recommended food plan? 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 What symptoms have improved: none at this time Supplements Are you taking recommended supplements? Yes - holding due to NutrEval this PM Exercise Are you performing routine exercise at this time? No due to energy and weather. Sleep Habit How long are you sleeping for? Too many 10 to 12 hours. Noting 10 PM with awakening at 8 to 9 AM. With nap in afternoon Bowel Habits Do you have a daily bowel movement? Yes 07/25/2022 Christiana Montero MD Last Visit on March 2022 Provider Kvng Symptoms What is the severity of your symptoms? Noting short term memory declining along with awareness. Sundowning. Noting shift to Pristiq from lexapro with benefit less agitation. Sleeping majority of day in AM upon awakening and eating - total sleep 10 to 12 hours +. Following the recommended food plan? Mainly following keto at this time not measuring ketones in blood or urine. However, fruits at this time. What symptoms have improved: None Supplements Are you taking recommended supplements? Stopped mold detox - sent labs to [facility] (pending) - home testnig. Frustrated with report and not convinced hasissues. Exercise Are you performing routine exercise at this time? No for motivation / function - What kind of exercise? Walking when Sleep Habit How long are you sleeping for? 10 to 12 hours. Bowel Habits Do you have a daily bowel movement? Yes Number of movements? One - bowel daily. Quality of movements (loose / form / constipation) Weight Are you measuring your weight? Yes or No? What is your current weight? March 17, 2022 Evita Calderon MD Subjective: Having continual memory loss, short term memory loss is worse. Eating well, sleeping a lot 10 hrs per day, ( 10 pm, up 7:30 am, then back to bed after breakfast ) Exercise- still having issues with this. Walking was hard. Sits around, puzzle book, watch TV, rides likes this. F (more content not included)... Normal [facility] T4 Free SerPl-mCncon 023 Free T4 [Mass/Vol] 1.3 ng/dL Normal 0.9-1.7 [facility] Comment on above: Order Comment: Speci men Type: BLOOD SPECIMENOrdering Facility: [facility] Address: [address] [place] [address] Performed By: #### 3 024-7, 3016-3 ####[facility] [id number] [address] [place] TSH SerPl-aCncon 10-31-2022 TSH Qn 1.570 m[IU]/L Normal 0.270-4.200 [facility] Comment on above: Order Comment: Speci men Type: BLOOD SPECIMENOrdering Facility: [facility] Address: [address] [place] [address] Performed By: #### 3 024-7, 3016-3 ####[facility] LABCLIA [id number] [place] [id number] [place] CNPNon 10-28-2022 CNPN Telephone ([facility]) ANN MARIE HILL ([id number]) 1940 F Date Time Provider Department 10/28/22 CHRISTIANA MONTERO During your visit today, we recorded the following information about you: Evelyn Flaherty LPN 10/28/2022 12:17 PM Signed Spoke with patient's regarding NE urine collection for Monday's lab appointment. Evelyn Flaherty LPN October 28, 2022 12:17 PM Allergies As of Date: 10/28/2022 Noted Allergy Reaction CIPROFLOXACIN 06/13/2019 16 - Unknown PENICILLINS 09/03/2013 4 - Hives SULFA (SULFONAMIDE ANTIBIOTICS) 06/13/2019 2 - Rash Date Reviewed: 07/25/2022 Reviewed by: Bee Puente MA - Fully Assessed Reason for Visit: Patient Question [6387] Prescriptions as of 10/28/2022 - desvenlafaxine ER (PRISTIQ) 50 mg 24 hr tablet Take 50 mg by mouth once daily. - vitamin E, dl,tocopheryl acet, (VITAMIN E, DL, ACETATE, ORAL) Take 1,000 Units by mouth once daily. - B-Complex Plus (Pure Encapsulations) Take 2 capsules by mouth daily with food. - Multi t/d 60 ct. (Pure Encapsulations) - multivitamin Take 1 capsule by mouth twice daily with meals. - OmegaGenics EPA-DHA 2400 (High Concentrate EPA/DHA liquid) (Beegit) Take one teaspoon (5 ml) 1 times daily with food - UT Synergy (All Web Leads) antibacterial Take 1 capsule by mouth twice daily. - Brain Misael Capsules (All Web Leads) Take 2 tablets by mouth w MEALS. - Neuromag ( All Web Leads ) 90 ct Take 3 capsules per day or as directed by a healthcare professional. - Osiris WS 1265 (Integrative Therapeutics) sleep/calming/anxiety 1 at bedtime - may also use 1 in AM for relaxation/anxiety - coQ10, ubiquinol, 100 mg cap Take 1 capsule daily with a meal. - rosuvastatin (CRESTOR) 40 mg tablet Take 40 mg by mouth once daily. - carvedilol (COREG) 12.5 mg tablet Take 12.5 mg by mouth twice daily. - aspirin, enteric coated (ASPIRIN, ENTERIC COATED) 81 mg EC tablet Take 81 mg by mouth once daily. - cholecalciferol (VITAMIN D3) 50 mcg (2,000 unit) tablet Take 2,000 Units by mouth once daily. - Ascorbic Acid 1,000 mg TbER Take by mouth. - amLODIPine (NORVASC) 5 mg tablet Take 1 tablet by mouth twice daily. Problem List As Of Date 10/28/2022 Noted Resolved ASCVD (arteriosclerotic cardiovascular disease)*07/07/2020 Hyperlipidemia [E78.5] 07/07/2020 Hypertension [I10] 07/07/2020 Late onset Alzheimer's disease with behavioral *07/07/2020 Encounter Status:Closed by EVELYN FLAHERTY on 10/28/22 [facility] Patient Education 08-08-20 Patient Education Obstetrics and Gynecology Urinary Tract Infection, Adult A urinary tract infection (UTI) is an infection of any part of the urinary tract. The urinary tract includes the kidneys, ureters, bladder, and urethra. These organs make, store, and get rid of urine in the body. Your health care provider may use other names to describe the infection. An upper UTI affects the ureters and kidneys (pyelonephritis). A lower UTI affects the bladder (cystitis) and urethra (urethritis). What are the causes? Most urinary tract infections are caused by bacteria in your genital area, around the entrance to your urinary tract (urethra). These bacteria grow and cause inflammation of your urinary tract. What increases the risk? You are more likely to develop this condition if: ? You have a urinary catheter that stays in place (indwelling). ? You are not able to control when you urinate or have a bowel movement (you have incontinence). ? You are female and you: ? Use a spermicide or diaphragm for control. ? Have low estrogen levels. ? Are . ? You have certain genes that increase your risk (genetics). ? You are sexually active. ? You take antibiotic medicines. ? You have a condition that causes your flow of urine to slow down, such as: ? An enlarged prostate, if you are male. ? Blockage in your urethra (stricture). ? A kidney stone. ? A nerve condition that affects your bladder control (neurogenic bladder). ? Not getting enough to drink, or not urinating often. ? You have certain medical conditions, such as: ? Diabetes. ? A weak disease-fighting system (immunesystem). ? Sickle cell disease. ? Gout. ? Spinal cord injury. What are the signs or symptoms? Symptoms of this condition include: ? Needing to urinate right away (urgently). ? Frequent urination or passing small amounts of urine frequently. ? Pain or burning with urination. ? Blood in the urine. ? Urine that smells bad or unusual. ? Trouble urinating. ? Cloudy urine. ? Vaginal discharge, if you are female. ? Pain in the abdomen or the lower back. You may also have: ? Vomiting or a decreased appetite. ? Confusion. ? Irritability or tiredness. ? A fever. ? Diarrhea. The first symptom in older adults may be confusion. In some cases, they may not have any symptoms until the infection has worsened. How is this diagnosed? This condition is diagnosed based on your medical history and a physical exam. You may also have other tests, including: ? Urine tests. ? Blood tests. ? Tests for sexually transmitted infections (STIs). If you have had more than one UTI, a cystoscopy or imaging studies may be done to determine the cause of the infections. How is this treated? Treatment for this condition includes: ? Antibiotic medicine. ? Cglr-hqi-bedywgg medicines to treat discomfort. ? Drinking enough water to stay hydrated. If you have frequent infections or have other conditions such as a kidney stone, you may need to see a health care provider who specializes in the urinary tract (urologist). In rare cases, urinary tract infections can cause sepsis. Sepsis is a life-threatening condition that occurs when the body responds to an infection. Sepsis is treated in the hospital with IV antibiotics, fluids, and other medicines. Follow these instructions at home: Medicines ? Take wvvr-jdz-sqpmtjt and prescription medicines only as told by your health care provider. ? If you were prescribed an antibiotic medicine, take it as told by your health care provider. Do not stop using the antibiotic even if you start to feel better. General instructions ? Make sure you: ? Empty your bladder often and completely. Do not hold urine for long periods of time. ? Empty your bladder after sex. ? Wipe from front to back after a bowel movement if you are female. Use each tissue one time when you wipe. ? Drink enough fluid to keep your urine pale yellow. ? Keep all follow-up visits as told by your health care provider. This is important. Contact a health care provider if: ? Your symptoms do not get better after 1?2 days. ? Your symptoms go away and then return. Get help right away if you have: ? Severe pain in your back or your lower abdomen. ? A fever. ? Nausea or vomiting. Summary ? A urinary tract infection (UTI) is an infection of any part of the urinary tract, which includes the kidneys, ureters, bladder, and urethra. ? Most urinary tract infections are caused by bacteria in your genital area, around the entrance to your urinary tract (urethra). ? Treatment for this condition often includes antibiotic medicines. ? If you were prescribed an antibiotic medicine, take it as told by your health care provider. Do not stop using the antibiotic even if you start to feel better. ? Keep all follow-up visits as told by your health care provider. This is important. This in (more content not included)... Normal [facility] Office/Clinic Noteon 08-08-2022 Urology Office/Clinic Note Chief Complaint 6 month f/u HPI Staff 6m chronic cystitis & Urethral stricture.Last UD done 02/2019. *Estradiol 1gm 2x/wk Dysuria: _denies Incomplete bladder emptying: _denies Hematuria: _denies Frequency: _denies Urgency: _denies Nocturia: _denies Stream: _steady Leaking: _denies Post void dripping: _denies Wearing pads/ Depends: _denies Urge incontinence: _denies Stress incontinence: _denies Incontinence without Sensory Awareness: _denies Abdominal pain: _denies Flank pain: _denies Sexual complaints: _ History of Present Illness I have reviewed and verified the staff HPI to be accurate for this encounter. Review of Systems ROS - Provider Constitutional: denies weight loss, denies hot flashes. Eyes: denies eye problems. Gastrointestinal: denies nausea, denies vomiting. Cardiovascular: denies chest pain or angina. Integumentary: no dryness Musculoskeletal: denies musculoskeletal symptoms. ENMT: denies otolaryngeal symptoms. Respiratory: no shortness of breath. Heme/Lymph: denies easy bleeding tendency, denies easy bruising tendency. Psychiatric: no confusion, no anxiety. Genitourinary: denies vaginal discharge, denies incontinence, denies dysuria, denies hematuria, denies urinary frequency, denies amenorrhea, denies menorrhagia, denies abnormal bleeding, denies pelvic pain, denies genital sores, and denies decreased libido. Physical Exam Vitals & Measurements BP: 152/76 HT: 62 in HT: 157 cm WT: 60.8 kg WT: 133.76 lb BMI: 24.67 General Appearance: alert , no acute distress, well nourished, well developed female. Genitourinary: bladder nonpalpable, no flank pain. Assessment/Plan 1. Chronic cystitis (N30.20: Other chronic cystitis without hematuria) No infections since the last encounter. Pt. continues taking supplements and using Estradiol 1gm 2x/wk. Pt uses Clobetasol PRN. Pt was unable to provide a UA today. Will give pt a cup to provide a UA and drop off at the office. Pt. to continue meds. Overall pt is doing well with her urination. All questions/concerns were discussed. Pt. to call the office if she encounters any issues prior. Pt. acknowledges understanding 2. Postinfective urethral stricture in female (N35.12: Postinfective urethral stricture, not elsewhere classified, female) S/p Cysto/UD 02/2019. Follow-up With When Contact Information GENO WATTS, JYOTSNA Cornejo In 8 months 04/08/2023 EDT [facility] [address] [place] [address] [phone] Additional Instructions: Patient Education Urinary Tract Infection, Adult I, Alisa Caban, personally scribed for Dr. Lora on 08/08/2022 16:17:32. . Documentation recorded by the scribe, Alisa Caban, accurately reflects the services(s) I performed and decisions made by me. Problem List/Past Medical History Ongoing Chronic cystitis Dementia Dysuria Hematuria, microscopic Hyperlipidemia Hypertension Postinfective urethral stricture in female Suprapubic pain Urethritis Historical No qualifying data Procedure/Surgical History Cystourethroscopy with dilation of urethral stricture (02/12/2019). Medications aspirin 81 mg oral capsule, Oral, q4hr clobetasol Top 0.05% Crm 15 gram, See Instructions, 1 refills Co Q-10, Oral, Daily Coreg 12.5 mg Tab, Oral, BID Coreg 6.25 mg Tab, 3.125 mg= 0.5 tab(s), Oral, BID estradiol 0.1 mg/g Vag Crm Lexapro 10 mg Tab, 10 mg= 1 tab(s), Oral, Daily, Not taking Lexapro 20 mg Tab, Oral, Daily, Not taking Norvasc 10 mg Tab, 10 mg= 1 tab(s), Oral, Daily [place]-3 350 mg oral capsule, Oral, Daily Pristiq, Oral, Daily valsartan 80 mg Tab, Oral, Daily Vitamin C, See Instructions Vitamin D3 vitamin E, Oral, Daily Allergies Macrobid (itching) penicillins (Unknown) sulfa drugs (Unknown) Social History Alcohol - Denies Alcohol Use, 05/06/2019 Substance Abuse - Denies Substance Abuse, 10/21/2019 Tobacco - Denies Tobacco Use, 10/21/2019 Never (less than 100 in lifetime) Tobacco Use:., 05/18/2020 Never (less than 100 in lifetime) Tobacco Use:., 06/14/2019 Family History Dementia: Mother. Hyperlipidemia: Mother. Hypertension: Mother. Immunizations Vaccine Date Status Comments SARS-CoV-2 mRNA (tomitzieran 5y-11y) vac - Not Given Postpone due to refusal influenza virus vaccine, inactivated - Not Given Patient Refuses Normal [facility] Comment on above: Result Comment: Elec tronically Signed By: Kunal LORA MD\.br\Date and Time Signed: 08/08/22 16:21 EDT\.br\Electronically Co-Signed By: Alisa Caban MA.br\Date and Time Co-Signed: 08/08/22 16:17 EDT CNOVon 07-25-2022 CNOV Office Visit ([facility] ) ANN MARIE HILL ([id number]) 1940 F Date Time Provider Department 07/25/22 11:00 AM CHRISTIANA MONTERO During your visit today, we recorded the following information about you: Temperature Pulse Blood pressure Weight 98 degrees 80/minute 140/62 61 kg Height 1.575 m Christiana Montero MD 07/25/2022 12:50 PM Signed DISTANCE HEALTH VISIT This Team Access Model visit is a virtual encounter. It required patient-provider interaction for the medical decision making as documented below. FUNCTIONAL MEDICINE FOLLOW-UP ASSESSMENT Patient: Ann Marie Hill Patient presents with: Established Patient Memory Loss There is no height or weight on file to calculate BMI. RMR can't be calculated - Weight unrecorded in last 120 days. Waist measurement: No waist measurement recorded. BP: ALLERGIES Allergen Reactions Ciprofloxacin Unknown Penicillins Hives Sulfa (Sulfonamide * Rash Current Outpatient Medications on File Prior to Visit Medication Sig NAC 600mg (Pure Encapsulations) - liver support (helps make glutathione) 3 capsules, in divided doses, between meals Saccharomyces Boulardii (Klaire/Prothera) good yeast (FRIDGE) Take 2 capsules by mouth once daily. Take saccharomyces boullardi 2 hrs away from nystatin/candibactin/ diflucan. Wiuz-Ltlp-HM ([place] [employer]C [place]) Take 1 capsule, 2 times daily with 4 oz or more of water. Glutathione (Spotify) - Liver support/detox Use 8 pumps daily , divided doses through out the day. (2 pumps = 100 mg Glutathione). Work up slowly to the higher dose. B-Complex Plus (Pure Encapsulations) Take 2 capsules by mouth daily with food. Multi t/d 60 ct. (Pure Encapsulations) - multivitamin Take 1 capsule by mouth twice daily with meals. OmegaGenics EPA-DHA 2400 (High Concentrate EPA/DHA liquid) (Beegit) Take one teaspoon (5 ml) 1 times daily with food UT Synergy [place]) antibacterial Take 1 capsule by mouth twice daily. Brain Misael Capsules (All Web Leads) Take 2 tablets by mouth w MEALS. Neuromag ( All Web Leads ) 90 ct Take 3 capsules per day or as directed by a healthcare professional. Osiris WILKINSON 1265 (Integrative Therapeutics) sleep/calming/anxiety 1 at bedtime - may also use 1 in AM for relaxation/anxiety coQ10, ubiquinol, 100 mg cap Take 1 capsule daily with a meal. escitalopram oxalate (LEXAPRO) 10 mg tablet Take 10 mg by mouth once daily. rosuvastatin (CRESTOR) 40 mg tablet Take 40 mg by mouth once daily. carvedilol (COREG) 12.5 mg tablet Take 12.5 mg by mouth twice daily. aspirin, enteric coated (ASPIRIN LOW DOSE) 81 mg EC tablet Take 81 mg by mouth once daily. cholecalciferol (VITAMIN D-3) 2,000 unit tablet Take 2,000 Units by mouth once daily. Ascorbic Acid (VITAMIN C) 1,000 mg TbER Take by mouth. amLODIPine (NORVASC) 5 mg tablet Take 1 tablet by mouth twice daily. No current facility-administered medications on file prior to visit. PAST MEDICAL HISTORY Diagnosis Date Alzheimer disease (HCC) HTN (hypertension) No past surgical history on file. No family history on file. Social History Tobacco Use Smoking status: Never Smokeless tobacco: Never EVALUATION 07/25/2022 Christiana Montero MD Last Visit on March 2022 Provider Kvng Symptoms What is the severity of your symptoms? Noting short term memory declining along with awareness. . Noting shift to Pristiq from lexapro with benefit less agitation. Sleeping majority of day in AM upon awakening and eating - total sleep 10 to 12 hours +. Following the recommended food plan? Mainly following keto at this time not measuring ketones in blood or urine. However, fruits at this time. What symptoms have improved: None Supplements Are you taking recommended supplements? Stopped mold detox - sent labs to [facility] (pending) - home testnig. Frustrated with report and not convinced hasissues. Exercise Are you performing routine exercise at this time? No for motivation / function - What kind of exercise? Walking when Sleep Habit How long are you sleeping for? 10 to 12 hours. Bowel Habits Do you have a daily bowel movement? Yes Number of movements? One - bowel daily. Quality of movements (loose / form / constipation) Weight Are you measuring your weight? Yes or No? What is your current weight? March 17, 2022 Evita Calderon MD Subjective: Having continual memory loss, short term memory loss is worse. Eating well, sleeping a lot 10 hrs per day, ( 10 pm, up 7:30 am, then back to bed after breakfast ) Exercise- still having issues with this. Walking was hard. Sits around, puzzle book, watch TV, rides likes this. November 30, 2021 Evita Calderon MD subjective: Pt did the [facility] mycotoxins. Sleeping 10-11 hrs a day, tired all the time, does not want to walk at all. Sometimes is conf (more content not included)... 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 Admission #: [id number] Family : Order #: [id number] CLICK HERE TO VIEW EXAM RADIOLOGY REPORT PROCEDURE: MAMMOGRAM BILATERAL SCREENING DIGITAL WITH COMPUTER AIDED DETECTION COMPARISON: MG MAMM SCREEN 3D JOSH CAD, 06/08/2021. MG MAMM SCREEN JOSH W CAD, 06/04/2020. INDICATIONS: Screening mammography Calculator Name NCI Breast Cancer Risk Assessment Tool 5 Year Breast Cancer Risk 1.50% Lifetime Breast Cancer Risk 2.30% Personal Breast Cancer No Personal Ovarian Cancer No Treatments None Family Cancers None LOCATION: [facility] BREAST COMPOSITION: Scattered areas fibroglandular density. FINDINGS: DIAGNOSTIC CATEGORY 2--BENIGN FINDING: RIGHT BREAST: No significant suspicious finding. No significant change has occurred. Chronic skin surface moles. LEFT BREAST: No significant suspicious finding. No significant change has occurred. RECOMMENDATIONS: ROUTINE MAMMOGRAM AND CLINICAL EVALUATION IN 12 MONTHS. PLEASE NOTE: A NORMAL MAMMOGRAM DOES NOT EXCLUDE THE POSSIBILITY OF BREAST CANCER. A CLINICALLY SUSPICIOUS PALPABLE LUMP SHOULD BE BIOPSIED. Dictated by: Samm Moseley M.D. on 06/17/2022 at 15:44 Approved by: Samm Moseley M.D. on 06/17/2022 at 15:47 Normal [facility] OCC BLD IMMUNOASSAYon 2021 OCCULT BLOOD Negative Normal NEGATIVE [facility] Comment on above: Performed By: #### O CHANDU #### [facility] [address] [place] [address] [address] Hu Carlos INSULINon 06-04-2022 Insulin 11.2 uIU/mL Normal 2.6-24.9 [facility] Comment on above: Performed By: #### I NSULIN ####[facility] [address] [place] [address]Dr. Hu Carlos T4, T3U, FTI LABCORPon 06-04 Free Thyroxine Index 2.3 Normal 1.2-4.9 [facility] Comment on above: Performed By: #### T HYLC #### [facility] [address] [place] [address] [address] Hu Carlos T3 Uptake 26 % Normal 24-39 [facility] Comment on above: Performed By: #### T HYLC #### [facility] [address] [address] [address] Hu Carlos T4 [Mass/Vol] 8.8 ug/dL Normal 4.5-12.0 [facility] Comment on above: Performed By: #### T HYLC #### [facility] [address] [address] [address] Hu Carlos VIT D 25-OH LABCORPon 2021 Vitamin D, 25-Hydroxy 60.5 ng/mL Normal 30.0-100.0 [facility] Comment on above: Result Comment: Nicolette min D deficiency has been defined by the [place] of Medicine and an Endocrine Society practice guideline as a level of serum 25-OH vitamin D less than 20 ng/mL (1,2). The Endocrine Society went on to further define vitamin D insufficiency as a level between 21 and 29 ng/mL (2). 1. IOM ([place] of Medicine). 2010. Dietary reference intakes for calcium and D. [place]: The National Academies Press. 2. Suzette MF, Julian [place], Fady CLEMONS, et al. Evaluation, treatment, and prevention of vitamin D deficiency: an Endocrine Society clinical practice guideline. JCEM. 2010; 96(7):1911-30. Performed By: #### V ITADLC ####[facility] [id number] [place], [place] [address]TrDr. Hu Carlos CBC AUTO DIFFon 06-03-2022 BASO # 0.0 103/ul Normal 0.0-0.1 [facility] Comment on above: Performed By: #### C BC #### [facility] [address] [address] [address] Hu Carlos Basophils/100 WBC (Bld) 0.6 % Normal 0.2-2.0 [facility] Comment on above: Performed By: #### C BC #### [facility] [address] [place] [address] Dr. Hu Carlos EO # 0.2 103/ul Normal 0.0-0.7 [facility] Comment on above: Performed By: #### C BC #### [facility] [address] [place] [address] Dr. Hu Carlos Eosinophils/100 WBC (Bld) 3.2 % Normal 0.9-7.0 [facility] Comment on above: Performed By: #### C BC #### [facility] [address] [place] [address] Dr. Hu Carlos Erythrocyte distribution width (RBC) [Ratio] 12.6 % Normal 11.0-15.0 [facility] Comment on above: Performed By: #### C BC #### [facility] [address] [place] [address] Dr. Hu Carlos Hematocrit (Bld) [Volume fraction] 40.0 % Normal 36.0-48.0 [facility] Comment on above: Performed By: #### C BC #### [facility] [address] [place] [address] Dr. Hu Carlos Hemoglobin (Bld) [Mass/Vol] 12.8 g/dL Normal 12.0-16.0 [facility] Comment on above: Performed By: #### C BC #### [facility] [address] [place] [address] Dr. Hu Carlos IG # 0.01 10e3/ul Normal 0.00-0.03 [facility] Comment on above: Performed By: #### C BC #### [facility] [address] [place] [address] Dr. Hu Carlos IG % 0.2 % Normal 0.0-0.5 [facility] Comment on above: Performed By: #### C BC #### [facility] [address] [place] [address] Dr. Hu Carlos LYMPH # 1.2 103/ul Normal 1.2-3.8 [facility] Comment on above: Performed By: #### C BC #### [facility] [address] [place] [address] Dr. Hu Carlos Lymphocytes/100 WBC (Bld) 22.7 % Normal 20.5-60.0 [facility] Comment on above: Performed By: #### C BC #### [facility] [address] [place] [address] Dr. Hu Carlos MANUAL DIFF REQ NO Normal [facility] Comment on above: Performed By: #### C BC #### [facility] [address] [place] [address] Dr. Hu Carlos MCH (RBC) [Entitic mass] 31.8 pg Normal 26.7-34.0 [facility] Comment on above: Performed By: #### C BC #### [facility] [address] [place] [address] Dr. Hu Carlos MCHC (RBC) [Mass/Vol] 32.0 g/dL Normal 29.9-35.2 [facility] Comment on above: Performed By: #### C BC #### [facility] [address] [place] [address] Dr. Hu Carlos MCV (RBC) [Entitic vol] 99.3 fL Critically high 81.0-99.0 [facility] Comment on above: Performed By: #### C BC #### [facility] [address] [place] [address] Dr. Hu Carlos MONO # 0.5 103/ul Normal 0.3-0.8 [facility] Comment on above: Performed By: #### C BC #### [facility] [address] [address] [address] Hu Carlos Monocytes/100 WBC (Bld) 8.8 % Normal 1.7-12.0 [facility] Comment on above: Performed By: #### C BC #### [facility] [address] [address] [address] Hu Carlos NEUT # 3.4 103/ul Normal 1.4-6.5 [facility] Comment on above: Performed By: #### C BC #### [facility] [address] [address] [address] Hu Carlos Neutrophils/100 WBC (Bld) 64.5 % Normal 43.0-75.0 [facility] Comment on above: Performed By: #### C BC #### [facility] [address] [address] [address] Hu Carlos Platelet mean volume (Bld) [Entitic vol] 8.8 fL Critically low 9.5-13.5 [facility] Comment on above: Performed By: #### C BC #### [facility] [address] [address] [address] Hu Carlos PLT 278 103/ul Normal 150-450 [facility] Comment on above: Performed By: #### C BC #### [facility] [address] [address] [address] Hu Carlos RBC 4.03 106/ul Critically low 4.20-5.40 [facility] Comment on above: Performed By: #### C BC #### [facility] [address] [address] [address] Hu Carlos WBC 5.3 103/ul Normal 4.0-11.0 [facility] Comment on above: Performed By: #### C BC #### [facility] [address] [place] [address] Dr. Hu Carlos GLYCOHEMOGLOBIN A1Con 2021 ADA RECOMMENDATION SEE BELOW Normal [facility] Comment on above: Result Comment: ADA RECOMMENDED LIMIT 4.0 - 6.0 ADA THERAPEUTIC TARGET < 7.0 ACTION SUGGESTED > 7.0 Performed By: #### A 1C ####[facility] [address] [address]Dr. Hu Carlos Glucose [Mass/Vol] 123 mg/dL Normal [facility] Comment on above: Performed By: #### A 1C ####[facility] [address] [address]Dr. Hu Carlos HbA1c (Bld) [Mass fraction] 5.9 % Normal 4.5-6.2 [facility] Comment on above: Performed By: #### A 1C ####[facility] [address] [address]Dr. Hu Carlos IRONon 06-03-2022 Iron [Mass/Vol] 68.0 ug/dL Normal 50.0-170.0 [facility] Comment on above: Performed By: #### I CANDY #### [facility] [address] [address] [address] Hu Carlos LIPID PROFILEon 06-03-2022 CHOL-HDL RATIO NORM SEE BELOW Normal [facility] Comment on above: Result Comment: 3.3 - 4.4 LOW RISK 4.4 - 7.1 AVERAGE RISK 7.1 - 11.0 MODERATE RISK >11.0 HIGH RISK Performed By: #### T SH, LIPID, CMP #### [facility] [address] [address] [address] Hu Carlos Cholesterol [Mass/Vol] 155 mg/dL Normal <=200 [facility] Comment on above: Performed By: #### T SH, LIPID, CMP #### [facility] [address] [address] [address] Hu Carlos Cholesterol in HDL [Mass/Vol] 70 mg/dL Critically high 40-60 [facility] Comment on above: Performed By: #### T SH, LIPID, CMP #### [facility] [address] [address] [address] Hu Carlos Cholesterol in LDL [Mass/Vol] 73.2 mg/dL Normal [facility] Comment on above: Performed By: #### T SH, LIPID, CMP #### [facility] [address] [address] [address] Hu Carlos Cholesterol.total/Cho lesterol in HDL [Mass ratio] 2.2 {ratio} Normal [facility] Comment on above: Performed By: #### T KISHOR, LIPID, CMP #### [facility] [address] [address] [address] Hu Carlos HDL NORMAL > or = 60 mg/dl - LO W CARDIOVASCULAR RISK <40 mg/dl - HIGH CARDIOVASCULAR RISK Normal [facility] Comment on above: Performed By: #### T KISHOR, LIPID, CMP #### [facility] [address] [address] [address] Hu Carlos LDL CALC NORMAL SEE BELOW Normal [facility] Comment on above: Result Comment: <100 mg/dl OPTIMAL 100 - 129 mg/dl NEAR OR ABOVE OPTIMAL 130 - 159 mg/dl BORDERLINE HIGH 160 - 189 mg/dl HIGH >190 mg/dl VERY HIGH Performed By: #### T KISHOR, LIPID, CMP #### [facility] [address] [address] [address] Hu Carlos Triglyceride [Mass/Vol] 59 mg/dL Normal <=150 [facility] Comment on above: Performed By: #### T KISHOR, LIPID, CMP #### [facility] [address] [place] [address] Dr. Hu Carlos VLDL CALC 11.8 mg/dL Normal [facility] Comment on above: Performed By: #### T KISHOR, LIPID, CMP #### [facility] [address] [place] [address] Dr. Hu Carlos PROF 14(COMP METB)on 022 Albumin [Mass/Vol] 3.5 g/dL Normal 3.4-5.0 [facility] Comment on above: Performed By: #### T KISHOR, LIPID, CMP #### [facility] [address] [place] [address] Dr. Hu Carlos Albumin/Globulin [Mass ratio] 1.0 {ratio} Normal [facility] Comment on above: Performed By: #### T KISHOR, LIPID, CMP #### [facility] [address] [address] [address] Hu Carlos ALP [Catalytic activity/Vol] 73 U/L Normal 46-116 [facility] Comment on above: Performed By: #### T SH, LIPID, CMP #### [facility] [address] [address] [address] Hu Carlos ALT [Catalytic activity/Vol] 24 U/L Normal 14-59 [facility] Comment on above: Performed By: #### T SH, LIPID, CMP #### [facility] [address] [address] [address] Hu Carlos Anion gap [Moles/Vol] 11.1 mmol/L Normal [facility] Comment on above: Performed By: #### T SH, LIPID, CMP #### [facility] [address] [address] [address] Hu Carlos AST [Catalytic activity/Vol] 15 U/L Normal 15-37 [facility] Comment on above: Performed By: #### T SH, LIPID, CMP #### [facility] [address] [address] [address] Hu Carlos Bilirubin [Mass/Vol] 0.4 mg/dL Normal 0.2-1.0 [facility] Comment on above: Performed By: #### T SH, LIPID, CMP #### [facility] [address] [place] [address] Dr. Hu Carlos Calcium [Mass/Vol] 8.9 mg/dL Normal 8.5-10.1 [facility] Comment on above: Performed By: #### T SH, LIPID, CMP #### [facility] [address] [address] [address] Hu Carlos Chloride [Moles/Vol] 103 mmol/L Normal 98-107 [facility] Comment on above: Performed By: #### T SH, LIPID, CMP #### [facility] [address] [address] [address] Hu Carlos CO2 [Moles/Vol] 30.9 mmol/L Normal 21.0-32.0 [facility] Comment on above: Performed By: #### T SH, LIPID, CMP #### [facility] [address] [address] [address] Hu Carlos Creatinine [Mass/Vol] 0.81 mg/dL Normal 0.55-1.02 [facility] Comment on above: Performed By: #### T SH, LIPID, CMP #### [facility] [address] [address] [address] Hu Carlos EGFR-AF [place] >60 Normal >=60 [facility] Comment on above: Performed By: #### T SH, LIPID, CMP #### [facility] [address] [address] [address] Hu Carlos EGFR-NON AF [place] >60 Normal >=60 [facility] Comment on above: Performed By: #### T SH, LIPID, CMP #### [facility] [address] [address] [address] Hu Carlos Globulin (S) [Mass/Vol] 3.6 g/dL Normal [facility] Comment on above: Performed By: #### T SH, LIPID, CMP #### [facility] [address] [address] [address] Hu Carlos Glucose [Mass/Vol] 100 mg/dL Normal 74-106 [facility] Comment on above: Performed By: #### T SH, LIPID, CMP #### [facility] [address] [address] [address] Hu Carlos Potassium [Moles/Vol] 4.0 mmol/L Normal 3.5-5.1 [facility] Comment on above: Performed By: #### T SH, LIPID, CMP #### [facility] [address] [address] [address] Hu Carlos Protein [Mass/Vol] 7.1 g/dL Normal 6.4-8.2 [facility] Comment on above: Performed By: #### T SH, LIPID, CMP #### [facility] [address] [address] [address] Hu Carlos Sodium [Moles/Vol] 141 mmol/L Normal 136-145 [facility] Comment on above: Performed By: #### T SH, LIPID, CMP #### [facility] [address] [address] [address] Hu Carlos Urea nitrogen [Mass/Vol] 21.0 mg/dL Critically high 7.0-18.0 [facility] Comment on above: Performed By: #### T SH, LIPID, CMP #### [facility] [address] [address] [address] Hu Carlos Urea nitrogen/Creatinine [Mass ratio] 25.9 mg/mg Normal [facility] Comment on above: Performed By: #### T SH, LIPID, CMP #### [facility] [address] [address] [address] Hu Carlos TSHon 06-03-2022 TSH 1.582 uIU/mL Normal 0.358-3.740 [facility] Comment on above: Performed By: #### T SH, LIPID, CMP #### [facility] [address] [address] [address] Hu Carlos PHQ-2 VITALSon 05-31-2022 Fall risk assessment a) No falls within the last year [facility] Work Phone: Tobacco use status [facility]PH[facility] b) No [facility] Work Phone: PHQ-2 VITALS Yes [facility] DO Work Phone: Tobacco Screening.on 021 Fall risk assessment a) No falls within the last year [facility] DO Work Phone: Tobacco use status [facility]PHS b) No [facility] DO Work Phone: VASC LAB Carotid Artery Dupl ex Ultrasounon 06-23-2020 VASC LAB Carotid Artery Duplex Ultrasoun [facility] [address] [place] [address], [address] [place] [address] Vascular Lab Report Carotid Artery Duplex Ultrasound Patient Name: ANN MARIE HILL Reading Physician: [id number] Miranda Tinoco MD, FACC Study Date: 06/23/2020 Referring Physician: [id number] Mary Anne Snow MD MRN/PID: [id number] PCP: Meng Prater Accession/Order#: [id number] CC Report to: Date of : 1940 Technologist: Irasema Dooley RDCS, RVT Gender: F Technologist 2: Admission Status: Outpatient Location Performed: [facility] Diagnosis/ICD: 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 Laminar flow seen by color Doppler. Right external carotid artery appears patent with no evidence of stenosis. No evidence of hemodynamically significant stenosis of the right common carotid artery. The right vertebral artery is patent with antegrade flow. No significant changes since 2017. Left Carotid: Findings are consistent with less than 50% stenosis of the left proximal ICA. Laminar flow seen by color Doppler. Left external carotid artery appears patent with no evidence of stenosis. No evidence of hemodynamically significant stenosis of the left common carotid artery. The left vertebral artery is patent with antegrade flow. No significant changes since 2017. Imaging & Doppler Findings: Right Left PSV EDV PSV EDV 63 cm/s 13 cm/s CCA P 84 cm/s 19 cm/s 62 cm/s 14 cm/s CCA M 77 cm/s 11 cm/s 57 cm/s 12 cm/s CCA D 62 cm/s 14 cm/s 57 cm/s 11 cm/s ICA P 55 cm/s 13 cm/s 72 cm/s 19 cm/s ICA M 81 cm/s 24 cm/s 88 cm/s 17 cm/s ICA D 106 cm/s 28 cm/s 89 cm/s ECA 75 cm/s 27 cm/s Vertebral 35 cm/s Right Left ICA/CCA Ratio 1.0 0.9 [id number] Miranda Tinoco MD, FACC Final Normal [facility] CARDIAC STRESS/REST YOSHI Dooley 09-11-2019 [facility] CARDIAC STRESS/REST INJECTION Patient Name: ANN MARIE HILL STUDY: MYOCARDIAL PERFUSION STRESS TEST WITH LEXISCAN Performing facility: [facility], [address] [place] [address], [address], [place] [address] [facility] Provider: Mary Anne Snow MD PCP: Dr. Robel PRATER Supervising provider: Yin Taylor MD, [facility] INDICATION: CP HISTORY: Gender: F; Age: 78 y/o ; Height: 154.94 cm; Weight: 77.9320616 kg. High Cholesterol; HTN PVCs CP DEMENTIA Denies smoking. COMPARISON: No comparison. ACCESSION NUMBER(S): [id number]; [id number]; [id number] ORDERING CLINICIAN: MARY ANNE SNOW TECHNIQUE: ONE DAY protocol. Stress injection: Date:09/11/19, 33 mCi of Myoview IV 20 seconds after rapid injection of Lexiscan. Rest injection: Date: 09/11/19, 11.4 mCi of Myoview IV at rest. The patient had a rapid injection of 0.4 mg of Lexiscan IV over 10 seconds. Imaging was performed by gated tomographic technique. Reason for Lexiscan: unable to walk/ambulate STRESS TEST DATA: Resting heart rate was 66 BPM. Resting blood pressure was 146/80 mmHg. Peak blood pressure was 138/80 mmHg. Peak heart rate was 112 BPM. TEST TERMINATED DUE TO: Protocol completed FINDINGS: STRESS TEST RESULTS: Resting electrocardiogram revealed normal sinus rhythm with nonspecific ST-T changes. There were no significant ischemic ECG changes or dysrhythmias. The patient did not have chest pains/symptoms during procedure. There was a normal recovery phase. IMAGING RESULTS: Image quality was good. Rest and stress tomographic images were reviewed and revealed normal perfusion without evidence of ischemia, myocardial infarction, or left ventricular dilatation with stress. Overall left ventricular systolic function appeared to be normal without regional wall motion abnormalities. Ejection fraction was 79%. TID is 0.925 and is normal. There were no evidence of attenuation artifact. IMPRESSION: Normal Lexiscan Myoview cardiac perfusion stress test. No evidence of ischemia or myocardial infarction by perfusion imaging. Normal left ventricular systolic function, ejection fraction 79%. No previous study available for comparison. Electronically signed by: MARY ANNE SNOW MD [facility] Vital Signs Date Time Vital Sign Value Performing Clinician Facility 06-06-2023 13:36-0400 Body height 157.48 cm Meng M Hoy Work Phone: [facility] 250 DO Work Phone: 06-06-2023 13:36-0400 Body mass index (BMI) [Ratio] 27.98 kg/m2 Meng M Hoy Work Phone: [facility] 250 DO Work Phone: 06-06-2023 13:36-0400 Body surface area Derived from formula 1.71 m2 Meng M Hoy Work Phone: [facility] 250 DO Work Phone: 06-06-2023 13:36-0400 Body weight 69.4 kg Meng M Hoy Work Phone: [facility] 250 DO Work Phone: 06-06-2023 13:36-0400 Diastolic blood pressure 62 mm[Hg] Meng M Hoy Work Phone: [facility] 250 DO Work Phone: 06-06-2023 13:36-0400 Heart rate 64 /min Meng M Hoy Work Phone: [facility] 250 DO Work Phone: 06-06-2023 13:36-0400 Systolic blood pressure 100 mm[Hg] Meng M Hoy Work Phone: [facility] 250 DO Work Phone: 05-19-2023 15:41-0400 Body height 157.5 cm Christiana Montero MD Work Phone: [facility] 05-19-2023 15:41-0400 Body weight 70.94 kg Christiana Montero MD Work Phone: [facility] 05-19-2023 15:41-0400 Diastolic blood pressure 63 mm[Hg] Christiana Montero MD Work Phone: [facility] 05-19-2023 15:41-0400 Heart rate 76 /min Christiana Montero MD Work Phone: [facility] 05-19-2023 15:41-0400 Systolic blood pressure 124 mm[Hg] Christiana Montero MD Work Phone: [facility] 04-25-2023 11:12-0400 Blood Pressure Location ELLEN DANIEL [facility] 04-25-2023 11:12-0400 Diastolic blood pressure 80 mm[Hg] ELLEN DANIEL [facility] 04-25-2023 11:12-0400 Heart rate 72 /min ELLEN DANIEL [facility] 04-25-2023 11:12-0400 Respiratory rate 16 /min ELLEN DANIEL [facility] 04-25-2023 11:12-0400 Systolic blood pressure 130 mm[Hg] ELLEN DANIEL [facility] 02-03-2023 15:26-0400 Body height 157.5 cm Christiana Montero MD Work Phone: [facility] 02-03-2023 15:26-0400 Body weight 68.77 kg Christiana Montero MD Work Phone: [facility] 02-03-2023 15:26-0400 Diastolic blood pressure 59 mm[Hg] Christiana Monteor MD Work Phone: [facility] 02-03-2023 15:26-0400 Heart rate 83 /min Christiana Montero MD Work Phone: [facility] 02-03-2023 15:26-0400 Systolic blood pressure 136 mm[Hg] Christiana Montero MD Work Phone: [facility] 10-31-2022 13:19-0500 Body height 157.5 cm Christiana Montero MD Work Phone: [facility] 10-31-2022 13:19-0500 Body temperature 97.81 [degF] Christiana Montero MD Work Phone: [facility] 10-31-2022 13:19-0500 Body weight 62.23 kg Christiana Montero MD Work Phone: [facility] 10-31-2022 13:19-0500 Diastolic blood pressure 68 mm[Hg] Christiana Montero MD Work Phone: [facility] 10-31-2022 13:19-0500 Heart rate 79 /min Christiana Montero MD Work Phone: [facility] 10-31-2022 13:19-0500 SaO2% (BldA) [Mass fraction] 97 % Christiana Montero MD Work Phone: [facility] 10-31-2022 13:19-0500 Systolic blood pressure 143 mm[Hg] Christiana Montero MD Work Phone: [facility] 08-08-2022 15:17-0400 Diastolic blood pressure 76 mm[Hg] Kunal LORA [facility] 08-08-2022 15:17-0400 Mean blood pressure 101 mm[Hg] Kunal LORA [facility] 08-08-2022 15:17-0400 Systolic blood pressure 152 mm[Hg] Kunal LORA [facility] 07-25-2022 12:47-0400 Body height 157.5 cm Christiana Montero MD Work Phone: [facility] 07-25-2022 12:47-0400 Body temperature 98.01 [degF] Christiana Montero MD Work Phone: [facility] 07-25-2022 12:47-0400 Body weight 61.01 kg Christiana Montero MD Work Phone: [facility] 07-25-2022 12:47-0400 Diastolic blood pressure 62 mm[Hg] Christiana Montero MD Work Phone: [facility] 07-25-2022 12:47-0400 Heart rate 80 /min Christiana Montero MD Work Phone: [facility] 07-25-2022 12:47-0400 SaO2% (BldA) [Mass fraction] 98 % Christiana Montero MD Work Phone: [facility] 07-25-2022 12:47-0400 Systolic blood pressure 140 mm[Hg] Christiana Montero MD Work Phone: [facility] 05-31-2022 11:58-0400 Body height 157.48 cm Meng Paz [employer] Work Phone: [facility] 250 DO Work Phone: 05-31-2022 11:58-0400 Body mass index (BMI) [Ratio] 23.59 kg/m2 Meng Paz Hoy Work Phone: [facility] 250 DO Work Phone: 05-31-2022 11:58-0400 Body surface area Derived from formula 1.59 m2 Meng Jackson Hoy Work Phone: [facility] 250 DO Work Phone: 05-31-2022 11:58-0400 Body weight 58.51 kg Meng M Hoy Work Phone: [facility] 250 DO Work Phone: 05-31-2022 11:58-0400 Diastolic blood pressure 60 mm[Hg] Meng Paz Hoy Work Phone: [facility] 250 DO Work Phone: 05-31-2022 11:58-0400 Heart rate 68 /min Meng Paz Hoy Work Phone: [facility] 250 DO Work Phone: 05-31-2022 11:58-0400 Systolic blood pressure 102 mm[Hg] Meng Paz Hochuy Work Phone: [facility] 250 DO Work Phone: 03-18-2022 12:59-0400 Body height 157.5 cm Evita Calderon MD Work Phone: [facility] 03-18-2022 12:59-0400 Body weight 55.34 kg Evita Calderon MD Work Phone: [facility] 03-18-2022 12:59-0400 Diastolic blood pressure 52 mm[Hg] Evita Calderon MD Work Phone: [facility] 03-18-2022 12:59-0400 Heart rate 70 /min Evita Calderon MD Work Phone: [facility] 03-18-2022 12:59-0400 Systolic blood pressure 107 mm[Hg] Evita Calderon MD Work Phone: [facility] 03-02-2022 10:32-0400 Body weight 56.61 kg Han Britton MD Work Phone: [facility] 03-02-2022 10:32-0400 Diastolic blood pressure 53 mm[Hg] Han Britton MD Work Phone: [facility] 03-02-2022 10:32-0400 Heart rate 75 /min Han Britton MD Work Phone: [facility] 03-02-2022 10:32-0400 Systolic blood pressure 115 mm[Hg] Han Britton MD Work Phone: [facility] 01-31-2022 14:14-0400 Blood Pressure Location Kunalsherrie LORA [facility] 01-31-2022 14:14-0400 Diastolic blood pressure 51 mm[Hg] Kunalsherrie LORA [facility] 01-31-2022 14:14-0400 Heart rate 66 /min Kunalsherrie LORA [facility] 01-31-2022 14:14-0400 Respiratory rate 16 /min Kunalsherrie LORA [facility] 01-31-2022 14:14-0400 Systolic blood pressure 96 mm[Hg] Kunal LORA [facility] 08-09-2021 13:50-0400 Body height 157.48 cm Meng Jackson Hoy Work Phone: [facility] 250 DO Work Phone: 08-09-2021 13:50-0400 Body mass index (BMI) [Ratio] 21.58 kg/m2 Meng XMarket Hoy Work Phone: [facility] 250 DO Work Phone: 08-09-2021 13:50-0400 Body surface area Derived from formula 1.53 m2 Meng [employer] Hoy Work Phone: [facility] 250 DO Work Phone: 08-09-2021 13:50-0400 Body weight 53.52 kg Meng M Hoy Work Phone: [facility] 250 DO Work Phone: 08-09-2021 13:50-0400 Diastolic blood pressure 60 mm[Hg] Meng Jackson Hoy Work Phone: [facility] 250 DO Work Phone: 08-09-2021 13:50-0400 Heart rate 72 /min Meng M Hoy Work Phone: [facility] 250 DO Work Phone: 08-09-2021 13:50-0400 Systolic blood pressure 110 mm[Hg] Meng M Hoy Work Phone: [facility] 250 DO Work Phone: Encounters Encounter Date Encounter Type Care Provider Facility Start: 09-20-2023 End: 09-20-2023 ambulatory MAUREEN BALLESTEROS Not Available Start: 08-21-2023 End: 08-21-2023 Subsequent hospital visit by physician Judy Smith Echo/Vasc Room 2 [facility] Comment on above: Carotid stenosis, bi lateral; Benign hypertension Start: 07-19-2023 End: 07-20-2023 ambulatory ELLEN COOK Facility[facility] Start: 07-19-2023 End: 07-19-2023 Lab Drop off ELLEN COOK [facility] Start: 07-19-2023 End: 07-20-2023 ambulatory Leonor Phillips Facility:[facility] Start: 07-19-2023 End: 07-19-2023 Patient encounter procedure Leonor Phillips [facility] Start: 06-06-2023 Office outpatient vi sit 15 minutes Meng M Hoy Work Phone: [facility] 250 DO Work Phone: Start: 06-06-[address] Mary Anne Snow Facility: Start: 05-19-2023 End: 05-19-2023 Patient encounter procedure Christiana Montero MD Work Phone: Functional Medicine Comment on above: Memory change (Prima ry Dx); Sundowning; Poor diet; Chemical exposure Start: 05-19-2023 End: 05-19-2023 FQHC visit, estab pt Shelley Mitchell RD Work Phone: Functional Medicine Comment on above: Established Patient Start: 05-19-2023 End: 05-19-2023 ambulatory Christiana Montero MD Work Phone: Functional Medicine Comment on above: After Visit 05/19 Start: 05-19-2023 E-mail encounter fro m caregiver Christiana [facility]tero MD [facility]: [facility] Start: 04-26-2023 Rx Renewal Meng Williamy Work Phone: [facility] 250 DO Work Phone: Start: 04-25-2023 End: 04-26-2023 ambulatory ELLEN COOK Facility: [facility] Start: 04-25-2023 End: 04-25-2023 Patient encounter procedure ELLEN COOK [facility] Start: 04-17-2023 End: 04-18-2023 ambulatory Kunal LORA Facility:[facility] Start: 04-17-2023 End: 04-17-2023 Patient encounter procedure Kunal LORA [facility] Start: 02-17-2023 Telephone encounter Kasey Hernández RD Work Phone: Functional Medicine Comment on above: Appointment Start: 02-15-2023 End: 02-15-[address] Hernández RD Work Phone: [facility] Start: 02-15-2023 End: 02-15-2023 FQHC visit, estab pt Kasey Oden Edgar RD Work Phone: Functional Medicine Comment on above: Established Patient Start: 02-04-2023 ambulatory Christiana Concepcion Work Phone: Functional Medicine Comment on above: After Visit 02/03/23 Start: 02-04-2023 E-mail encounter fro m caregiver Christiana Montero MD Work Phone: [facility] Start: 02-03-2023 End: 02-03-2023 ambulatory MENG PRATER Facility:[facility] Start: 02-03-2023 End: 02-03-2023 Patient encounter procedure Christiana Montero MD Work Phone: Functional Medicine Comment on above: 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); B-complex deficiency; Chemical exposure; Poor diet; Impaired nutrient utilization Start: 11-03-2022 End: 11-03-2022 ambulatory NATALIE PETERSON Facility:[facility] Start: 10-31-2022 End: 11-01-2022 ambulatory Christiana Montero MD Work Phone: Functional Medicine Comment on above: After Visit 10/31/22 Start: 10-31-2022 E-mail encounter jacob m caregiver Christiana Montero MD Work Phone: [facility] Start: 10-31-2022 End: 10-31-2022 Patient encounter procedure Christiana Montero MD Work Phone: Functional Medicine Comment on above: Memory change (Prima ry Dx); Subclinical hypothyroidism; Elevated homocysteine; Impaired nutrient utilization; 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) Start: 10-28-2022 Telephone encounter Christiana shah MD Work Phone: Functional Medicine Comment on above: Patient Question Start: 10-05-2022 End: 10-06-[address] MENG PRATER Facility:[facility] Start: 08-10-2022 End: 11-03-2022 ambulatory Kunal LORA [facility] Start: 08-10-2022 End: 08-10-2022 Patient encounter procedure [facility] Start: 08-08-2022 End: 08-09-2022 ambulatory Kunal LORA Facility:[facility] Start: 08-08-2022 End: 08-08-2022 Patient encounter procedure [facility]unal [facility]A [facility] Start: 07-25-2022 End: 07-25-2022 ambulatory CHRISTIANA MONTERO Facility:[facility] Start: 07-25-2022 End: 07-25-2022 Patient encounter procedure Christiana Montero MD Work Phone: Functional Medicine Comment on above: Memory change (Prima ry Dx); Subclinical hypothyroidism; Hypertension, unspecified type; Hyperlipidemia, unspecified hyperlipidemia type; Elevated homocysteine; Impaired nutrient utilization; Sleepiness; Mold exposure; On statin therapy; On beta alexandria at home Start: 06-17-2022 End: 06-18-[address] MENG PRATER Facility:[facility] Start: 06-16-2022 ambulatory Evita siu MD Work Phone: Functional Medicine Comment on above: Dr Manny Hopper Start: 06-06-2022 End: 06-06-[address] MENG PRATER Facility:[facility] Start: 06-03-2022 End: 06-04-[address] MENG PRATER Facility:[facility] Start: 05-31-2022 Office outpatient vi sit 25 minutes Meng Prater Work Phone: [facility] 250 DO Work Phone: Start: 05-12-2022 ambulatory [facility] Functional Medicine Comment on above: Mold Report Start: 05-12-2022 E-mail encounter fro m caregiver [facility] Start: 05-09-2022 ambulatory Evita siu MD Work Phone: Functional Medicine Comment on above: Ubiquinol Start: 04-26-2022 Rx Renewal Meng Prater Work Phone: [facility] 250 DO Work Phone: Start: 04-11-2022 ambulatory [facility] Comment on above: Ultrasound - Carotid Artery Start: 04-11-2022 E-mail encounter fro m caregiver [facility] Provider [facility] Start: 03-18-2022 End: 03-18-2022 Patient encounter procedure Evita Calderon MD Work Phone: Functional Medicine Comment on above: 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) Start: 03-02-2022 End: 03-02-2022 Patient encounter procedure Han Britton MD Work Phone: Neurology Comment on above: Cognitive communicat ion deficit (Primary Dx); Alzheimer's dementia with behavioral disturbance, unspecified timing of dementia onset (HCC) Start: 01-31-2022 End: 01-31-2022 Patient encounter procedure Kunal LORA [facility] Start: 01-09-2022 ambulatory Evita siu MD Work Phone: Functional Medicine Comment on above: Mold test results Start: 08-09-2021 Office outpatient vi sit 25 minutes Meng Prater Work Phone: [facility] 250 DO Work Phone: Start: 07-11-2017 Ambulatory MARY ANNE SNOW Facedda lity:[id number] Procedures Date Procedure Procedure Detail Performing Clinician Start: 08-21-2023 Duplex scan extracra nial art compl bi study Mary Anne Snow MD Work Phone: Start: 02-12-2019 Cystourethroscopy wi th dilation of urethral stricture Kunal LORA Appendectomy Meng M Stewartchuy Work Phone: Cholecystectomy Meng M Ho y Work Phone: Operation on bladder Meng Prater Work Phone: Tonsillectomy Meng Prater Work Phone: Total colonoscopy Meng Prater Work Phone: Comment on above: managed by perico james; Plan of Treatment Date Care Activity Detail Author Start: 06-04-2024 FUV, Provider: Mary Anne Snow, Status: Pen, Time: 2:00 PM FUV, Provider: Mary Anne Snow, Status: Pen, Time: 2:[address] [facility] 250 DO Work Phone: Start: 06-04-2024 End: 06-04-2024 Patient encounter procedure 06/04/2024 2:00 PM EDT Office Visit [facility] [address] [facility] [address] [place] [address] Mary Anne Snow MD [address] [facility] [address] [place] [address] [facility] Start: 11-25-2023 DIABETES SCREEN DIABETES SCREEN [facility] Start: 07-24-2023 CAROTID, Provider: CHAD CARMONA ULTRASOUND ,[id number], Status: Pen, Time: 2:30 PM CAROTID, Provider: CHAD CARMONA ULTRASOUND ,[id number], Status: Pen, Time: 2:30 PM [facility] Work Phone: Start: 06-09-2023 Influenza vaccination [facility] Start: 06-06-2023 FUV, Provider: Mary Anne Snow, Status: Pen, Time: 1:20 PM FUV, Provider: Mary Anne Snow, Status: Pen, Time: 1:20 PM [facility] DO Work Phone: Start: 03-18-2023 BP CONTROLLED (<130/80) BP CON TROLLED (<130/80) [facility] Start: 03-02-2023 BP CONTROLLED (<130/80) BP CON TROLLED (<130/80) [facility] Start: 02-04-2023 End: 04-06-2023 MISC SEND OUT TST 1 MISC SEND OUT TST 1 Lab Routine 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) Chemical exposure Expected: 02/04/2023, Expires: 04/06/2023 [facility] Work Phone: Comment on above: Expected: 02/04/2023 , Expires: 04/06/2023 Start: 12-01-2022 BP CONTROLLED (<130/80) BP CON TROLLED (<130/80) [facility] Start: 10-09-2022 ADVANCE DIRECTIVE DISCUSSION ADVANCE DIRECTIVE DISCUSSION [facility] Start: 07-25-2022 End: 09-24-2022 COPPER BLOOD COPPER BLOOD Lab Routine Memory change Expected: 07/25/2022, Expires: 09/24/2022 [facility] Work Phone: Comment on above: Expected: 07/25/2022 , Expires: 09/24/2022 Start: 07-25-2022 End: 09-24-2022 FM SQ NUTREVAL PANEL BLOOD AND URINE FM SQ NUTREVAL PANEL BLOOD AND URINE Lab Routine Impaired nutrient utilization Expected: 07/25/2022, Expires: 09/24/2022 [facility] Work Phone: Comment on above: Expected: 07/25/2022 , Expires: 09/24/2022 Start: 07-25-2022 End: 09-24-2022 Homocysteine [Moles/volume] in Serum or Plasma HOMOCYSTEINE Lab Routine Elevated homocysteine Expected: 07/25/2022, Expires: 09/24/2022 [facility] Work Phone: Comment on above: Expected: 07/25/2022 , Expires: 09/24/2022 Start: 07-25-2022 End: 07-25-2023 Thyrotropin [Units/volume] in Serum or Plasma TSH BLD Lab Routine Expected: 07/25/2022, Expires: 07/25/2023 [facility] Work Phone: Comment on above: Expected: 07/25/2022 , Expires: 07/25/2023 Start: 07-25-2022 End: 07-25-2023 Thyroxine (T4) free [Mass/volume] in Serum or Plasma T4 FREE/FREE THYROX Lab Routine Expected: 07/25/2022, Expires: 07/25/2023 [facility] Work Phone: Comment on above: Expected: 07/25/2022 , Expires: 07/25/2023 Start: 07-25-2022 End: 09-24-2022 Triiodothyronine (T3) Free [Mass/volume] in Serum or Plasma T3 FREE BLD Lab Routine Expected: 07/25/2022, Expires: 09/24/2022 [facility] Work Phone: Comment on above: Expected: 07/25/2022 , Expires: 09/24/2022 Start: 07-25-2022 End: 09-24-2022 Zinc [Mass/volume] in Serum or Plasma ZINC BLD Lab Routine Memory change Expected: 07/25/2022, Expires: 09/24/2022 [facility] Work Phone: Comment on above: Expected: 07/25/2022 , Expires: 09/24/2022 Start: 06-09-2022 Influenza vaccination [facility] Start: 05-31-2022 FUV, Provider: Mary Anne Snow, Status: Pen, Time: 11:50 AM FUV, Provider: Mray Anne Snow, Status: Pen, Time: 11:50 AM [facility] 250 DO Work Phone: Start: 05-25-2022 FUV, Provider: Mary Anne Snow, Status: Oliverio, Time: 1:00 PM FUV, Provider: Mary Anne Snow, Status: Pen, Time: 1:00 PM [facility] 250 DO Work Phone: Start: 10-09-2021 ADVANCE DIRECTIVE DISCUSSION ADVANCE DIRECTIVE DISCUSSION [facility] Start: 08-07-2019 Pneumococcal Vaccine : 65+ Years (2 - PPSV23 or PCV20) Pneumococcal Vaccine: 65+ Years (2 - PPSV23 or PCV20) [facility] Start: 2006 BONE DENSITY BONE DENSITY [facility] Start: 2006 PNEUMOCOCCAL: 65+ (1 - PCV) PNEUMOCOCCAL: 65+ (1 - PCV) [facility] Start: 2006 PNEUMOVAX AGE 65 AND OVER WITH 5YR LOOKBACK (#1) PNEUMOVAX AGE 65 AND OVER WITH 5YR LOOKBACK (#1) [facility] Start: 1991 SHINGRIX VACCINE (1 of 2) BYRNE GRIX VACCINE (1 of 2) [facility] Start: 1991 Zoster Vaccines (1 of 2) Zoste r Vaccines (1 of 2) [facility] Start: 1963 DTaP/Tdap/Td Vaccine s (1 - Tdap) DTaP/Tdap/Td Vaccines (1 - Tdap) [facility] Start: 1960 Urine microalbumin profile DTA P,TDAP,TD (1 - Tdap) [facility] Start: 1959 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 BRANNON DISEASE VISIT ANNUAL PCP TEAM CHRONIC DISEASE VISIT [facility] Start: 1959 BP CONTROLLED (<130/80) BP CON TROLLED (<130/80) [facility] Start: 1946 COVID-19 VACCINE (#1) COVID-19 VACCI NE (#1) [facility] Start: 1946 COVID-19 VACCINE (1) COVID-19 VACCIN E (1) [facility] Start: 05-09-1942 COVID-19 VACCINE (#1) COVID-19 VACCI NE (#1) [facility] Start: 1941 Lipid panel Lipid Panel [facility] Start: 1941 Medicare Annual Well ness Visit Medicare Annual Wellness Visit (AWV) [facility] Start: 1941 Screening for osteoporosis Bone Dens ity Scan [facility] End: 08-21-2023 US.doppler Carotid arteries - bilateral [facility] Service Area Work Phone: Comment on above: Once for 1 Occurrenc es starting 08/21/2023 until 08/21/2023 [facility] Immunizations Immunization Date Immunization Notes Care Provider Germain campos 08-07-2018 pneumococcal conjuga te vaccine, 13 valent Meng Paz Hoy Work Phone: [facility] 250 DO Work Phone: NEGATED: Highlighted row has not occurred!08-08-2022 SARS-CoV-2 mRNA (tozinameran 5y-11y) vaccine Kunal LORA [facility] NEGATED: Highlighted row has not occurred!11-23-2020 influenza virus vaccine, unspecified formulation Kunal LORA [facility] Payers Date Payer Category Payer Medicare AETNA MEDICARE A ETNA MEDICARE PPO [id number] 2021-Present [phone] [address] [place] [address] PPO [id number] 2021 Medicare [id number] 1959 Medicare [id number] 1941 Unknown [id number] 93 1941 Unknown [id number] 93 1941 Unknown [id number] 1941 Unknown [id number] 93 1941 Unknown [id number] 93 1941 Unknown [id number] 56 1941 Unknown [id number] 27 1941 Unknown [id number] 27 1941 Unknown [id number] 27 1941 Unknown [id number] 27 1941 Unknown [id number] 27 1941 Unknown [id number] 27 1941 Unknown [id number] 259 Private Health Insurance [id number] [id number] Unknown [employer] Social History Date Type Detail Facility Start: 10-31-2022 End: 02-15-2023 Caffeine use Caffeine use [place] [address] DO Work Phone: Comment on above: decaff occasional co ffee, 1-2 cups of ohtt lionel daily; Start: 06-13-2019 End: 04-25-2023 Tobacco smoking status NHIS Never smoked tobacco [facility] Start: 06-13-2019 End: 07-25-2022 Tobacco use and exposure Smokeless tobacco non-user [facility] Start: 1940 Sex Assigned At Female [facility] Start: 12-07-2021 End: 08-21-2023 Exposure to SARS-CoV-2 (event) Not sure [facility] Start: 10-31-2022 End: 02-15-2023 Sex Assigned At Female [facility] Tobacco smoking status Never [facility] Start: 07-07-2020 Sexual orientation Heterosexual (beronica winters) [facility] Tobacco smoking stat us NHIS Tobacco smoking consumption unknown [facility] Work Phone: Start: 1940 Sex Assigned At Not on file [facility] Work Phone: Functional Status Date Assessment Result Facility 04-25-2023 Functional Status N/A [facility] 08-08-2022 Functional Status N/A [facility] Clinical Notes 01-31-2022 to 07-19-2023 Patient InstructionsPatient InstructionsChristiana Montero MD - 05/19/2023 4:[address] - 05/19/2023 3:00 PM EDTTelephone Encounter - Evelyn Flaherty LPN - 02/17/2023 8:17 AM EDT Note Date & Type Note Facility 07-19-2023 Evaluation + Plan note Diagnostic Tests PendingUrine Culture 07/19/23 [facility] 05-22-[address] - 05/22/2023 9:01 AM EDT [facility] FUNCTIONAL MEDICINE FOLLOW UP NUTRITION INSTRUCTIONS Nutrition Follow-up: In [address] Your Prescribed Nutrition Plan: Nutrition Plan: Per your description/symptoms- look into Sundowning/Sundowner Syndrome and discuss with Dr. Montero. A. Light- expose to natural light as much as possible throughout the day, especially in the morning. B. Movement- Take 10 minute walks after all 3 meals to balance blood sugar. Activity also helps with symptoms of sundowning. C. Snack- add a light protein-containing snack at 3pm, just prior to symptoms- apple with nut butter, grass-fed beef stick, hard boiled egg, mixed nuts and seeds, vegetables with humus. D. Minimize sugar Chocolate Brands with no refined sugar or dairy: Abdirizak Vazquez Hu Mandala Chocolate Honey Mama's Eating Evolved Lakanto Pure 7 Tia's Lionel Zero Pascha Recipes -Paleo Hot Chocolate: https://Luxe Internacionale.Sirin Mobile Technologies/vegan-hot -chocolate-paleo/ -Keto No Bake Brownie Bites: https://www.Scodix/keto -vo-bdnh-hgrmwxq-bites/ -Whole Food Fudge: https://AAIPharma Services/easy-raw -krxte-qyjed-gursf/ 2. Continue focus on the SEAMUS food plan principles previously discussed: -[place]-3 Rich Fish (wild-caught salmon, mackerel, anchovies, sardines, rodrigues): twice per week -Continue grass-fed beef 3-4X/week -Add legumes 3-4X/week Three jamil salad recipe: https://Veset/class pe-mddlj-wrxw-salad/ -Add homemade vinaigrette coleslaw or green salad daily Vinegar based coleslaw: https://www.EventRadar/vine ezg-bvhgg-layckuwm/ -Continue nuts/seeds daily I.e. almonds, walnuts, pecans (continue these on fruit) -Include olive oil daily; use avocado or coconut oil for higher heat cooking -Limit juice serving to 2oz at a time: 100% organic grape, blueberry or pomegranate are good choices -Add frozen organic spinach to cooking: eggs, soups -Berries: incorporate 1/2 cup 5 days per week -Incorporate squashes and carrots regularly -Find a new recipe that incorporates turmeric! (see soup idea below) ADDITIONAL INSTRUCTIONS: How to Contact Your Functional Medicine Team (Open M-F 8am-5pm): 1. MyChart is the BEST form of communication to reach the Functional Medicine Team, see test results and request refills. Please allow 72 business hours for a response. Directions for signing up are included in your New Patient Folder. (Or you can go to [email or web address]) 2. For nutrition related questions or concerns, VeriFone message your physician and include Attn: Shelley Mitchell RD at the top of the message. VeriFone messaging is meant to support implementation of previously outlined nutrition care plans. In the interest of safe, effective and personalized care, you are asked to schedule a follow-up appointment if: It has been >6 months since your last nutrition appointment Your question requires reassessment or involves a new plan of care Your question concerns a new diagnosis, symptoms(s) and/or health concern Ordering Supplements: Supplements can be ordered from the [facility]'s Online Store: [email or web address] New patients to the Healthy Living Shop will need to enter the provider code FUNCTIONAL to register their account. documented in this encounter [facility] 05-19-2023 Note HNO ID: [id number] Author: Christiana Montero MD Service: ? Author Type: Physician Type: Progress Notes Filed: 05/19/2023 7:37 PM Note Text: FUNCTIONAL MEDICINE FOLLOW-UP ASSESSMENT Patient: Ann Marie Hill 70.9 kg (156 lb 6.4 oz) 157.5 cm (5' 2 ) Body mass index is 28.61 kg/m?. Resting Metabolic Rate: 1046 Waist measurement: No waist measurement recorded. BP: 124/63 ALLERGIES Allergen Reactions Ciprofloxacin Unknown Penicillins Hives Sulfa (Sulfonamide * Rash Current Outpatient Medications on File Prior to Visit Medication Sig desvenlafaxine ER (PRISTIQ) 50 mg 24 hr tablet Take 50 mg by mouth once daily. vitamin E, dl,tocopheryl acet, (VITAMIN E, DL, ACETATE, ORAL) Take 1,000 Units by mouth once daily. B-Complex Plus (Pure Encapsulations) Take 2 capsules by mouth daily with food. (Patient not taking: Reported on 10/31/2022) Multi t/d 60 ct. (Pure Encapsulations) - multivitamin Take 1 capsule by mouth twice daily with meals. (Patient not taking: Reported on 10/31/2022) OmegaGenics EPA-DHA 2400 (High Concentrate EPA/DHA liquid) (Beegit) Take one teaspoon (5 ml) 1 times daily with food UT Synergy (All Web Leads) antibacterial Take 1 capsule by mouth twice daily. Brain Misael Capsules (All Web Leads) Take 2 tablets by mouth w MEALS. Neuromag ( All Web Leads ) 90 ct Take 3 capsules per day or as directed by a healthcare professional. Osiris WS 1265 (Integrative Therapeutics) sleep/calming/anxiety 1 at bedtime - may also use 1 in AM for relaxation/anxiety coQ10, ubiquinol, 100 mg cap Take 1 capsule daily with a meal. rosuvastatin (CRESTOR) 40 mg tablet Take 40 mg by mouth once daily. carvedilol (COREG) 12.5 mg tablet Take 12.5 mg by mouth twice daily. aspirin, enteric coated (ASPIRIN, ENTERIC COATED) 81 mg EC tablet Take 81 mg by mouth once daily. cholecalciferol (VITAMIN D3) 50 mcg (2,000 unit) tablet Take 2,000 Units by mouth once daily. (Patient not taking: Reported on 10/31/2022) Ascorbic Acid 1,000 mg TbER Take by mouth. (Patient not taking: Reported on 10/31/2022) amLODIPine (NORVASC) 5 mg tablet Take 1 tablet by mouth twice daily. No current facility-administered medications on file prior to visit. PAST MEDICAL HISTORY Diagnosis Date Alzheimer disease (HCC) HTN (hypertension) No past surgical history on file. No family history on file. Social History Tobacco Use Smoking status: Never Smokeless tobacco: Never EVALUATION Patient presents with: Established Patient 05/19/2023 Christiana Montero MD Last Visit on Oct 2022 Provider: Kylah 05/19/2023 Christiana Montero MD Last Visit on January 2023 Provider Kylah Symptoms What is the severity of your symptoms? No shift or change at this time - still with sundowning - worse at 4 PM (agitation) - diet with more sugar in PM Complete Glyphosate but NOT able to report [facility]-T[facility]. No longer in area direct exposure. Following the recommended food plan? No - more sugar. January 2023 Christiana Montero MD Last Visit on Oct 2022 Provider: Kylah Symptoms What is the severity of your symptoms? Overall patient has no complaints. Dementia - Wandering at night Daughter noting more anxiety (placed on abilify by PCP with Pristiq). NOting weight gain > 10 lbs. Diet more processed / refined with eating out Nutrition - completed NutrEval for review from last visit in Oct. 10/31/2022 Christiana Montero MD Last Visit on July 2022 Provider: Kylah Symptoms What is the severity of your symptoms?Noting more anxious / fear in evening - progressive. Noting more behavioral changes with ? Auditory. Noting no shift in medication / supplement. Noting no shift in behavioral medication Following the recommended food plan? 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 What symptoms have improved: none at this time Supplements Are you taking recommended supplements? Yes - holding due to NutrEval this PM Exercise Are you performing routine exercise at this time? No due to energy and weather. Sleep Habit How long are you sleeping for? Too many 10 to 12 hours. Noting 10 PM with awakening at 8 to 9 AM. With nap in afternoon Bowel Habits Do you have a daily bowel movement? Yes 07/25/2022 Christiana Montero MD Last Visit on March 2022 Provider Kvng Symptoms What is the severity of your symptoms? Noting short term memory declining along with awareness. Sundowning. Noting shift to Pristiq from lexapro with benefit less agitation. Sleeping majority of day in AM upon awakening and eating - total sleep 10 to 12 hours +. Following the recommended food plan? Mainly following keto at this time not measuring ketones in blood or urine. However, fruits at this time. What symptoms have improved: None Supplements Are you taking recommended supplements? Stopped mold detox - sent labs to [facility] (pending) - home testnig. Frustrate (more content not included)... [facility] 05-19-2023 Note HNO ID: [id number] Author: Shelley Mitchell RD Service: ? Author Type: Registered Dietitian Type: Progress Notes Filed: 05/22/2023 9:02 AM Note Text: [facility] Nutrition Therapy: Follow-Up Assessment (Individual) IN PERSON Accompanied by her spouse today Patient Name: Ann Marie Hill Past Medical History: PAST MEDICAL HISTORY Diagnosis Date Alzheimer disease (HCC) HTN (hypertension) Allergies: Ciprofloxacin, Penicillins, and Sulfa (Sulfonamide Antibiotics) Current Medications/Supplements Current Outpatient Medications on File Prior to Visit Medication Sig PhytoMulti 60s capsules (Beegit) Take 2 capsules daily, with meals. Glycine (Pure Encapsulations) Take 1 capsule 3 times daily in divided doses between meals. (1 [id number]) B-Complex Plus (Pure Encapsulations) Take 1 capsule by mouth daily with food. Glutathione (Spotify) Use 20 pumps daily (1000mg) divided doses through out the day. (2 pumps = 100 mg Glutathione) ARIPiprazole (ABILIFY) 2 mg tablet Take 2 mg by mouth once daily. desvenlafaxine ER (PRISTIQ) 50 mg 24 hr tablet Take 50 mg by mouth once daily. vitamin E, dl,tocopheryl acet, (VITAMIN E, DL, ACETATE, ORAL) Take 1,000 Units by mouth once daily. OmegaGenics EPA-DHA 2400 (High Concentrate EPA/DHA liquid) (Beegit) Take one teaspoon (5 ml) 1 times daily with food UT Synergy (All Web Leads) antibacterial Take 1 capsule by mouth twice daily. Neuromag ( All Web Leads ) 90 ct Take 3 capsules per day or as directed by a healthcare professional. coQ10, ubiquinol, 100 mg cap Take 1 capsule daily with a meal. rosuvastatin (CRESTOR) 40 mg tablet Take 40 mg by mouth once daily. carvedilol (COREG) 12.5 mg tablet Take 12.5 mg by mouth twice daily. aspirin, enteric coated (ASPIRIN, ENTERIC COATED) 81 mg EC tablet Take 81 mg by mouth once daily. cholecalciferol (VITAMIN D3) 50 mcg (2,000 unit) tablet Take 2,000 Units by mouth once daily. Ascorbic Acid 1,000 mg TbER Take by mouth. amLODIPine (NORVASC) 5 mg tablet Take 1 tablet by mouth twice daily. No current facility-administered medications on file prior to visit. 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 Find root cause, and stop/reverse Alzheimer's: Memory is not any better now, short-term memory is still not good 2. Get blood pressure regulated-since being back home, that seems to have normalized. BP medication has been reduced 3. Stop re-occuring bladder infections Nutrition Assessment (updated 05/19/23) Current Symptom Review: -Gets more anxious, nervous, fidgety around 4PM and last 3-4 hours. -bed 10-10:15, may wake 1-2x to use restroom but sleeps all night until 8am. -gained 25# in the last year Food and Nutrition History (update): Seamus (Dairy-Free, Gluten-Free) -mixing and matching with the gluten and gluten-free foods -making soups with fresh and frozen veggies Current Adverse Reactions to Foods: Yes, previously avoiding wheat, dairy, sugar, grains; not strict with this now Nutrition Assessment (updated 02/15/23) Current Symptom Review: Weight gain from 118->151# after Abilify for anxiety/fear (concerns for weight gain, recently weaned off of that) Food and Nutrition History (update): diet recall updated below; some restaurant meals at [facility] (focuses on 'chicken and vegetables'); endorses fish consumption limited to 2X/month Current Adverse Reactions to Foods: previously avoiding wheat, dairy, sugar, grains; not strict with this now Subjective (12/01/21) Weight has been stable: 118-120 Would like more print outs today vs. IntelligentM Subjective (08/06/21) -Daughter christos on line: states dad is limited in what he can cook Diet Recall: Yes 24 Hour Recall Breakfast: Dr. Angela Bone Protein in hot chocolate in morning, cantaloupe, blueberries, bananas Sleeps another hour Bath and dress Lunch: Eggs with plant cheese, turkey child; soups- homemade with the [employer] products Goes for a ride 4:00 gets nervous anxious Not much of a snacker Dinner: grilled chicken with broccoli and slaw; carrots/beans, sometimes potato Snacks: Asks for ice cream every day Beverages: water, almond milk Anthropometrics There were no vitals taken for this visit. Last Height: Last 1 Encounter Ht Readings: Date: Ht: 02/03/2023 157.5 cm (5' 2 ) Last Weight: Last Wt 05/19/23 : 70.9 kg (156 lb 6.4 oz) 02/03/23 : 68.8 kg (151 lb 9.6 oz) 10/31/22 : 62.2 kg (137 lb 3.2 oz) Wt: 68.8 kg (151 lb 9.6 oz) BMI: 27.73 kg/(m2) Learning Needs Assessment: Barriers to Learning: Cognitive Assessed motivation to learn: moderate Biochemical and L (more content not included)... 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 - PhytoMulti 60s capsules (Metagenics) Take 2 capsules daily, with meals. - Glycine (Pure Encapsulations) Take 1 capsule 3 times daily in divided doses between meals. (1 [id number]) - B-Complex Plus (Pure Encapsulations) Take 1 capsule by mouth daily with food. - Glutathione (Spotify) Use 20 pumps daily (1000mg) divided doses through out the day. (2 pumps = 100 mg Glutathione) - ARIPiprazole (ABILIFY) 2 mg tablet Take 2 mg by mouth once daily. - desvenlafaxine ER (PRISTIQ) 50 mg 24 hr tablet Take 50 mg by mouth once daily. - vitamin E, dl,tocopheryl acet, (VITAMIN E, DL, ACETATE, ORAL) Take 1,000 Units by mouth once daily. - OmegaGenics EPA-DHA 2400 (High Concentrate EPA/DHA liquid) (Beegit) Take one teaspoon (5 ml) 1 times daily with food - UT Synergy (All Web Leads) antibacterial Take 1 capsule by mouth twice daily. - Neuromag ( All Web Leads ) 90 ct Take 3 capsules per day or as directed by a healthcare professional. - coQ10, ubiquinol, 100 mg cap Take 1 capsule daily with a meal. - rosuvastatin (CRESTOR) 40 mg tablet Take 40 mg by mouth once daily. - carvedilol (COREG) 12.5 mg tablet Take 12.5 mg by mouth twice daily. - aspirin, enteric coated (ASPIRIN, ENTERIC COATED) 81 mg EC tablet Take 81 mg by mouth once daily. - cholecalciferol (VITAMIN D3) 50 mcg (2,000 unit) tablet Take 2,000 Units by mouth once daily. - Ascorbic Acid 1,000 mg TbER Take by mouth. - amLODIPine (NORVASC) 5 mg tablet Take 1 tablet by mouth twice daily. Encounter Status:Closed by SHELLEY MITCHELL on 05/22/23 [facility] 05-19-2023 Instructions Christiana Montero MD - 05/19/2023 4:36 PM EDT FUNCTIONAL MEDICINE PLAN: Keep diet low at this time with sugar / dairy / processed foods. Think of plasminogens for Alzheimer's www.prodrome.com Synapsin - if wishing to use notify me will send compounded. No change in support Add the following at this time for remove the glyphospate. Chlorella - use of 3 capsules daily Avoid glyphosate exposure by eating organic. Dietary interventions: Glutathione is an antioxidant. Production of glutathione (GSH) depends on certain amino acids - cysteine, glutamate, and glycine. Glutathione recycles antioxidants making it a very powerful antioxidant for the body. There are many ways to increase glutathione in the body either by consuming dietary sources rich in glutathione or by consuming glutathione-producing foods. Cysteine is a precursor to glutathione synthesis. Foods high in cysteine include soybeans, meats (beef, chacko, poultry, pork), fish and shellfish, sunflower seeds, oats, and oat bran, legumes, cheese, dairy, whole grains, and eggs. The PIANO ACCOMPANIST is 4.1 mg per kilogram of body weight or 1.9 mg per pound. Some high cysteine foods include: Soybeans, raw (609 mg per 1/2 cup) Oat bran, dry (541 mg per 1 cup) Pork ham, roasted (492 mg per 4 oz.) Tuna Fish, light, canned in oil, drained (456 mg per 1 cup) Chicken breast, cooked (444 mg per 4 oz.) [place] breast, cooked (436 mg per 4 oz.) Beef angelo, cooked (408 mg per 4 oz.) Oat bran, cooked (217 mg per 1 cup) Egg, whole, raw, fresh (136 mg per 1 large egg) Schleicher seeds, oil roasted (113 mg per 1 oz.) Cashews, oil-roasted (104 mg per 1 oz.) Peanuts, oil roasted (95 mg per 1 oz.) Cameroonian cheese, diced (83 mg per 1 oz.) Provolone cheese, diced (33 mg per 1 oz.) Glutathione-rich foods include spinach, avocados, asparagus, and okra Selenium: Selenium is a needed cofactor for glutathione synthesis. The most well-known high selenium food which has orders of magnitude more selenium compared to other foods is the brazil nut. You will see brazil nuts (2 nuts a week to 1 each day) being utilized in many studies as an intervention to evaluate the effects of increasing selenium. However, selenium is a supplement that should be utilized with caution as too much selenium can be toxic. Other foods rich in selenium include beef, chicken, fish, organ meats, cottage cheese, and brown rice. Selenium is a necessary cofactor for the production of glutathione. The PIANO ACCOMPANIST value to maximize glutathione production in the body is only 55 mcg for adult men and women Sulfur-containing foods such as fresh beef, fish, and poultry, mushrooms - porcini, maitake, yellow oyster, garlic, shallots, onions, raw milk products, eggs, and cruciferous vegetables: Brussel sprouts, cauliflower, broccoli, kale, arugula, collards, watercress, radishes, mustard greens. Sulforaphane-producing foods like cruciferous vegetables can also help promote glutathione synthesis (although 3-day old broccoli sprouts have much higher levels than broccoli so supplements contain much higher levels than food sources) \ Whey protein has been shown to increase glutathione production. One study suggested a linear relationship between the amount of whey ingested and the increase in GSH. Whey is also a good source of cysteine - one of the three components of glutathione Vitamin C-rich foods such as strawberries, citrus fruits, papaya, kiwis, and patel peppers may be beneficial Functional Nutrition: per gang drill press operator Review and implement diet factors recommended through nutritional visit - use your health high school football coach for discussion on how to implement Sleep: Sleep hygeine - no bright lights or phones/laptops/TV an hour before bed. Exercise Prescription: Continue your current exercise as tolerated. Supplement Support Review supplements - Based upon your labs and progress I may further recommend you consider these items to supplement. Medication orders placed this encounter Chlorella (Biotics) Sig: Take three capsules each day. Ordering Supplementation: We recommend ordering supplementation online from the [facility] as they are high quality therapeutic supplements. [facility] offers an easy to use, convenient way to order supplementation recommended by your provider through the [employer]. All of the products offered are considered high-quality, and adhere to specific criteria for quality and effectiveness including good manufacturing practices, use of clean products, free of fillers, binders, and other antigens. In addition, we follow third libertarian analysis for independent verification of active ingredients. Get started by following three easy steps: A. Visit the following webpage: https://The Noun Project.bitFlyer/ [employer] Statements on this site have not been evaluated by the Food and Drug Administration. B. Create an account: Enter your first name, last name, email address which will be your username Create password Select a referring physician from the dropdown box. If they are not listed, select other If you are a new patient, enter the following provider code: functional C. Order recommended supplementation! Enter the supplement name in the search box Add all supplements to your cart and proceed to checkout. Orders of $100 or more qualify for free shipping. *Please allow 5-7 business days for delivery. For issues with your MRN please call [phone] Stress Management ArthaYantra Neuro -new technology to use a wearable device to retrain brain and focus on nervous system reduction. To learn more of this technology by going to (mdb-sdx-qrnll) https://Medical Connections/ Please look into this Heart Rate Variability BioFeedback Tool (www.heartmath.org). You can see the research that has been put into this very valuable tool under the Resources and Research tabs. This can be used as an poncho on your smart phone.To use this technology will need to buy a sensor that plugs right into the phone for about $100. First, get one of the Heart Math booklets off Seen that fits your 'go to' emotion - Transforming Anger, Anxiety, Stress, Depression, or PTSD. Five minutes 3 times a day is more effective than 15 minutes in one sitting. A regular, daily meditation practice of at least 15-20 minutes will change your brain--as well as your genes! Preliminary studies demonstrate gene expression is modified in those who meditate regularly leading to down-regulation of pro-inflammatory genes. This results in reduced inflammation, as well as improvements in the body's response to stress via the hormone cortisol, in the intervention groups vs. the controls. Although more research is needed, these findings suggest a definite role for meditation in the treatment and prevention of chronic inflammatory conditions. Smart phone apps to begin a meditative practice: Headspace (free for first 10 days) Insight Meditation Timer- (Free)-Great all-around poncho to use for guided meditations of many different types and lengths or just to use as a tool to time and track your meditation practice. Calm- (Free) Walking Meditations-($1.99)- Get your walk AND meditation done together. A good way to start out for individuals who feel they just can't sit still to begin a meditative practice. Vagal Tone Look at the following work on harnessing the relaxation response by the following providers (you should look at one which appeals to you fully) . --- Polyvagal theory (Connor Ybarra) https://www.StarBlock.com/ --- Dynamic Neural Retraining System - (Ketty Christensen) https://retrainingthebrain.com/a lor-carolper/ --- Frias Program - (John Frias) Https://www.raeTPP [employer] Development.[employer]/ Finding time for self (no multitasking) at this time to dedicate to breathing / relaxation process. Work on cultivating ted! documented in this encounter [facility] 05-19-2023 History of Presen t illness Narrative FUNCTIONAL MEDICINE FOLLOW-UP ASSESSMENT Patient: Ann Marie Hill 70.9 kg (156 lb 6.4 oz) 157.5 cm (5' 2 ) Body mass index is 28.61 kg/m . Resting Metabolic Rate: 1046 Waist measurement: No waist measurement recorded. BP: 124/63 ALLERGIES Allergen Reactions Ciprofloxacin Unknown Penicillins Hives Sulfa (Sulfonamide * Rash Current Outpatient Medications on File Prior to Visit Medication Sig desvenlafaxine ER (PRISTIQ) 50 mg 24 hr tablet Take 50 mg by mouth once daily. vitamin E, dl,tocopheryl acet, (VITAMIN E, DL, ACETATE, ORAL) Take 1,000 Units by mouth once daily. B-Complex Plus (Pure Encapsulations) Take 2 capsules by mouth daily with food. (Patient not taking: Reported on 10/31/2022) Multi t/d 60 ct. (Pure Encapsulations) - multivitamin Take 1 capsule by mouth twice daily with meals. (Patient not taking: Reported on 10/31/2022) OmegaGenics EPA-DHA 2400 (High Concentrate EPA/DHA liquid) (Beegit) Take one teaspoon (5 ml) 1 times daily with food UT Synergy (All Web Leads) antibacterial Take 1 capsule by mouth twice daily. Brain Misael Capsules (All Web Leads) Take 2 tablets by mouth w MEALS. Neuromag ( All Web Leads ) 90 ct Take 3 capsules per day or as directed by a healthcare professional. Osiris WS 1265 (Integrative Therapeutics) sleep/calming/anxiety 1 at bedtime - may also use 1 in AM for relaxation/anxiety coQ10, ubiquinol, 100 mg cap Take 1 capsule daily with a meal. rosuvastatin (CRESTOR) 40 mg tablet Take 40 mg by mouth once daily. carvedilol (COREG) 12.5 mg tablet Take 12.5 mg by mouth twice daily. aspirin, enteric coated (ASPIRIN, ENTERIC COATED) 81 mg EC tablet Take 81 mg by mouth once daily. cholecalciferol (VITAMIN D3) 50 mcg (2,000 unit) tablet Take 2,000 Units by mouth once daily. (Patient not taking: Reported on 10/31/2022) Ascorbic Acid 1,000 mg TbER Take by mouth. (Patient not taking: Reported on 10/31/2022) amLODIPine (NORVASC) 5 mg tablet Take 1 tablet by mouth twice daily. No current facility-administered medications on file prior to visit. PAST MEDICAL HISTORY Diagnosis Date Alzheimer disease (HCC) HTN (hypertension) No past surgical history on file. No family history on file. Social History Tobacco Use Smoking status: Never Smokeless tobacco: Never EVALUATION Patient presents with: Established Patient 05/19/2023 Christiana Montero MD Last Visit on Oct 2022 Provider: Kylah 05/19/2023 Christiana Montero MD Last Visit on January 2023 Provider [place] Symptoms What is the severity of your symptoms? No shift or change at this time - still with ing - worse at 4 PM (agitation) - diet with more sugar in PM Complete Glyphosate but NOT able to report [facility]. No longer in area direct exposure. Following the recommended food plan? No - more sugar. January 2023 Christiana Montero MD Last Visit on Oct 2022 Provider: Kylah Symptoms What is the severity of your symptoms? Overall patient has no complaints. Dementia - Wandering at night Daughter noting more anxiety (placed on abilify by PCP with Pristiq). NOting weight gain > 10 lbs. Diet more processed / refined with eating out Nutrition - completed NutrEval for review from last visit in Oct. 10/31/2022 Christiana Montero MD Last Visit on July 2022 Provider: Kylah Symptoms What is the severity of your symptoms?Noting more anxious / fear in evening - progressive. Noting more behavioral changes with ? Auditory. Noting no shift in medication / supplement. Noting no shift in behavioral medication Following the recommended food plan? 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 What symptoms have improved: none at this time Supplements Are you taking recommended supplements? Yes - holding due to NutrEval this PM Exercise Are you performing routine exercise at this time? No due to energy and weather. Sleep Habit How long are you sleeping for? Too many 10 to 12 hours. Noting 10 PM with awakening at 8 to 9 AM. With nap in afternoon Bowel Habits Do you have a daily bowel movement? Yes 07/25/2022 Christiana Montero MD Last Visit on March 2022 Provider Kvng Symptoms What is the severity of your symptoms? Noting short term memory declining along with awareness. Sundowning. Noting shift to Pristiq from lexapro with benefit less agitation. Sleeping majority of day in AM upon awakening and eating - total sleep 10 to 12 hours +. Following the recommended food plan? Mainly following keto at this time not measuring ketones in blood or urine. However, fruits at this time. What symptoms have improved: None Supplements Are you taking recommended supplements? Stopped mold detox - sent labs to [facility] (pending) - home testnig. Frustrated with report and not convinced hasissues. Exercise Are you performing routine exercise at this time? No for motivation / function - What kind of exercise? Walking when Sleep Habit How long are you sleeping for? 10 to 12 hours. Bowel Habits Do you have a daily bowel movement? Yes Number of movements? One - bowel daily. Quality of movements (loose / form / constipation) Weight Are you measuring your weight? Yes or No? What is your current weight? March 17, 2022 Evita Calderon MD Subjective: Having continual memory loss, short term memory loss is worse. Eating well, sleeping a lot 10 hrs per day, ( 10 pm, up 7:30 am, then back to bed after breakfast ) Exercise- still having issues with this. Walking was hard. Sits around, puzzle book, watch TV, rides likes this. November 30, 2021 Evita Calderon MD subjective: Pt did the GPL mycotoxins. Sleeping 10-11 hrs a day, tired all the time, does not want to walk at all. Sometimes is confused about her . Does check the doors at night time. Review of Systems Constitutional: Positive for activity change and fatigue. Psychiatric/Behavioral: Positive for confusion, decreased concentration and sleep disturbance (excess). 05/19/23 1541 BP: 124/63 Pulse: 76 Weight: 70.9 kg (156 lb 6.4 oz) Height: 157.5 cm (5' 2 ) Physical Exam Vitals reviewed. Constitutional: Appearance: Normal appearance. HENT: Head: Normocephalic and atraumatic. Right Ear: Hearing and external ear normal. Left Ear: Hearing and external ear normal. Eyes: General: Lids are normal. Extraocular Movements: Extraocular movements intact. Musculoskeletal: Cervical back: No pain with movement. Neurological: Mental Status: She is alert. Psychiatric: Attention and Perception: Attention and perception normal. Mood and Affect: Mood normal. Speech: Speech normal. Behavior: Behavior normal. Thought Content: Thought content normal. Cognition and Memory: Cognition and memory normal. Judgment: Judgment normal. DIAGNOSIS/ASSESSMENT: R41.3 Memory change (primary encounter diagnosis) F05 Sundowning E63.9 Poor diet Z77.098 Chemical exposure Diet likely still not ideal with inflammation. Use of plasminogen with [employer] to remove ox stress. (Cost not effective) B Complex ideal. Limit sugar as above. Timing relation to ? Role of Panax ginseng. - Synpasin Detox with GSH and chlorella for Round-Up with link to ALZ? 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 Fast eater, Significant other or family don't like healthy foods, Significant other or family have special dietary needs, Love to eat, Struggle with eating issues, Don't care to cook, Confused about nutrition advice Please describe Other special diets or nutrition program:Trying to lower sugar, gluten, and dairy Vit D 62.8 Nutrieval (reviewed 02/03/23 DATE Oct 2022 High need B2,ALA,CoQ10 Moderate need A,C,E,GSH,B1,B3,B7,B12 Amino Acids Glycine 744 Malabsorption markers INdolacetic, Phenylacetic,Benzoic, DHPAA Detox Markers Yeast markers Citramalic [place] 3 Index NOrmal Oxidative stress Lipid 9.7 8OHdg 11 Heavy metals Other Oxalate markers (glyceric, glycolic, oxalic) - all elevated Maritza Nutreval Jun 2020 High Need: Mod Need: All B's Amino acids: Malabsorption markers: Bacterial dysbiosis markers: Fungal dysbiosis markers:arabinose 55 Toxin/detox markers: high [place]-3 Index: 4.3 Glutathione level:998 Lipid peroxides:8.5 Toxic elements: Lead 0.71 <= 2.81 mcg/dL Mercury 0.75 <= 4.35 mcg/L Arsenic 1.3 <= 13.7 mcg/L Cadmium 0.57 <= 1.22 mcg/L Tin 0.91 Digestive Function Daily T & A S/p Maureen Inflammation/Immune Function Yeast Infections-UTI's ASCVD High chol- crestor 40 mg x yrs Hypertension- good control Prediabetes A1 C 6.0 %--> 5.2 % Energy Production/Function: Fatigue, Weight issues-loss Cognitive decline/brain fog- Alzheimer's ( paranoia)- Nemenda made her dizzy. 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 Think of plasminogens for Alzheimer's www.prodrome.[employer] Synapsin - if wishing to use notify me will send compounded. No change in support Add the following at this time for remove the glyphospate. Chlorella - use of 3 capsules daily Avoid glyphosate exposure by eating organic. Dietary interventions: Glutathione is an antioxidant. Production of glutathione (GSH) depends on certain amino acids - cysteine, glutamate, and glycine. Glutathione recycles antioxidants making it a very powerful antioxidant for the body. There are many ways to increase glutathione in the body either by consuming dietary sources rich in glutathione or by consuming glutathione-producing foods. Cysteine is a precursor to glutathione synthesis. Foods high in cysteine include soybeans, meats (beef, chacko, poultry, pork), fish and shellfish, sunflower seeds, oats, and oat bran, legumes, cheese, dairy, whole grains, and eggs. The PIANO ACCOMPANIST is 4.1 mg per kilogram of body weight or 1.9 mg per pound. Some high cysteine foods include: Soybeans, raw (609 mg per 1/2 cup) Oat bran, dry (541 mg per 1 cup) Pork ham, roasted (492 mg per 4 oz.) Tuna Fish, light, canned in oil, drained (456 mg per 1 cup) Chicken breast, cooked (444 mg per 4 oz.) [place] breast, cooked (436 mg per 4 oz.) Beef angelo, cooked (408 mg per 4 oz.) Oat bran, cooked (217 mg per 1 cup) Egg, whole, raw, fresh (136 mg per 1 large egg) Schleicher seeds, oil roasted (113 mg per 1 oz.) Cashews, oil-roasted (104 mg per 1 oz.) Peanuts, oil roasted (95 mg per 1 oz.) Cameroonian cheese, diced (83 mg per 1 oz.) Provolone cheese, diced (33 mg per 1 oz.) Glutathione-rich foods include spinach, avocados, asparagus, and okra Selenium: Selenium is a needed cofactor for glutathione synthesis. The most well-known high selenium food which has orders of magnitude more selenium compared to other foods is the brazil nut. You will see brazil nuts (2 nuts a week to 1 each day) being utilized in many studies as an intervention to evaluate the effects of increasing selenium. However, selenium is a supplement that should be utilized with caution as too much selenium can be toxic. Other foods rich in selenium include beef, chicken, fish, organ meats, cottage cheese, and brown rice. Selenium is a necessary cofactor for the production of glutathione. The PIANO ACCOMPANIST value to maximize glutathione production in the body is only 55 mcg for adult men and women Sulfur-containing foods such as fresh beef, fish, and poultry, mushrooms - porcini, maitake, yellow oyster, garlic, shallots, onions, raw milk products, eggs, and cruciferous vegetables: Brussel sprouts, cauliflower, broccoli, kale, arugula, collards, watercress, radishes, mustard greens. Sulforaphane-producing foods like cruciferous vegetables can also help promote glutathione synthesis (although 3-day old broccoli sprouts have much higher levels than broccoli so supplements contain much higher levels than food sources) \ Whey protein has been shown to increase glutathione production. One study suggested a linear relationship between the amount of whey ingested and the increase in GSH. Whey is also a good source of cysteine - one of the three components of glutathione Vitamin C-rich foods such as strawberries, citrus fruits, papaya, kiwis, and patel peppers may be beneficial Functional Nutrition: per gang drill press operator Review and implement diet factors recommended through nutritional visit - use your health high school football coach for discussion on how to implement Sleep: Sleep hygeine - no bright lights or phones/laptops/TV an hour before bed. Exercise Prescription: Continue your current exercise as tolerated. Supplement Support Review supplements - Based upon your labs and progress I may further recommend you consider these items to supplement. Medication orders placed this encounter Chlorella (Biotics) Sig: Take three capsules each day. Ordering Supplementation: We recommend ordering supplementation online from the [facility] [employer] as they are high quality therapeutic supplements. wireLawyer Shop [facility] offers an easy to use, convenient way to order supplementation recommended by your provider through the [employer]. All of the products offered are considered high-quality, and adhere to specific criteria for quality and effectiveness including good manufacturing practices, use of clean products, free of fillers, binders, and other antigens. In addition, we follow third libertarian analysis for independent verification of active ingredients. Get started by following three easy steps: A. Visit the following webpage: https://The Noun Project.bitFlyer/ [employer] Statements on this site have not been evaluated by the Food and Drug Administration. B. Create an account: Enter your first name, last name, email address which will be your username Create password Select a referring physician from the dropdown box. If they are not listed, select other If you are a new patient, enter the following provider code: functional C. Order recommended supplementation! Enter the supplement name in the search box Add all supplements to your cart and proceed to checkout. Orders of $100 or more qualify for free shipping. *Please allow 5-7 business days for delivery. For issues with your MRN please call [phone] Stress Management [employer] Neuro -new technology to use a wearable device to retrain brain and focus on nervous system reduction. To learn more of this technology by going to (duv-lpz-imxfi) https://Medical Connections/ Please look into this Heart Rate Variability BioFeedback Tool (www.heartmath.org). You can see the research that has been put into this very valuable tool under the Resources and Research tabs. This can be used as an poncho on your smart phone.To use this technology will need to buy a sensor that plugs right into the phone for about $100. First, get one of the Heart Math booklets off Seen that fits your 'go to' emotion - Transforming Anger, Anxiety, Stress, Depression, or PTSD. Five minutes 3 times a day is more effective than 15 minutes in one sitting. A regular, daily meditation practice of at least 15-20 minutes will change your brain--as well as your genes! Preliminary studies demonstrate gene expression is modified in those who meditate regularly leading to down-regulation of pro-inflammatory genes. This results in reduced inflammation, as well as improvements in the body's response to stress via the hormone cortisol, in the intervention groups vs. the controls. Although more research is needed, these findings suggest a definite role for meditation in the treatment and prevention of chronic inflammatory conditions. Smart phone apps to begin a meditative practice: Headspace (free for first 10 days) Insight Meditation Timer- (Free)-Great all-around poncho to use for guided meditations of many different types and lengths or just to use as a tool to time and track your meditation practice. Calm- (Free) Walking Meditations-($1.99)- Get your walk AND meditation done together. A good way to start out for individuals who feel they just can't sit still to begin a meditative practice. Vagal Tone Look at the following work on harnessing the relaxation response by the following providers (you should look at one which appeals to you fully) . --- Polyvagal theory (Connor Ybarra) https://www.connorQuinju.com.com/ --- Dynamic Neural Retraining System - (Ketty Christensen) https://retrainingthebrain.com/a lor-grace/ --- Frias Program - (John Frias) Https://www.JRD Communication.[employer]/ Finding time for self (no multitasking) at this time to dedicate to breathing / relaxation process. Work on cultivating ted! Future Plans (for provider use): I spent a total of 45 minutes on the date of the service which included preparing to see the patient, kqls-[id number] patient care, completing clinical documentation, obtaining and/or reviewing separately obtained history, performing a medically appropriate examination, and ordering medications, tests, or procedures. Christiana Montero MD documented in this encounter [facility] 05-19-2023 History of Presen t illness Narrative [facility] Functional Medicine Nutrition Therapy: Follow-Up Assessment (Individual) IN PERSON Accompanied by her spouse today Patient Name: Ann Marie Hill Past Medical History: PAST MEDICAL HISTORY Diagnosis Date Alzheimer disease (HCC) HTN (hypertension) Allergies: Ciprofloxacin, Penicillins, and Sulfa (Sulfonamide Antibiotics) Current Medications/Supplements Current Outpatient Medications on File Prior to Visit Medication Sig PhytoMulti 60s capsules (Beegit) Take 2 capsules daily, with meals. Glycine (Pure Encapsulations) Take 1 capsule 3 times daily in divided doses between meals. (1 tqxknrl=142ct) B-Complex Plus (Pure Encapsulations) Take 1 capsule by mouth daily with food. Glutathione (Spotify) Use 20 pumps daily (1000mg) divided doses through out the day. (2 pumps = 100 mg Glutathione) ARIPiprazole (ABILIFY) 2 mg tablet Take 2 mg by mouth once daily. desvenlafaxine ER (PRISTIQ) 50 mg 24 hr tablet Take 50 mg by mouth once daily. vitamin E, dl,tocopheryl acet, (VITAMIN E, DL, ACETATE, ORAL) Take 1,000 Units by mouth once daily. OmegaGenics EPA-DHA 2400 (High Concentrate EPA/DHA liquid) (Beegit) Take one teaspoon (5 ml) 1 times daily with food UT Synergy (All Web Leads) antibacterial Take 1 capsule by mouth twice daily. Neuromag ( All Web Leads ) 90 ct Take 3 capsules per day or as directed by a healthcare professional. coQ10, ubiquinol, 100 mg cap Take 1 capsule daily with a meal. rosuvastatin (CRESTOR) 40 mg tablet Take 40 mg by mouth once daily. carvedilol (COREG) 12.5 mg tablet Take 12.5 mg by mouth twice daily. aspirin, enteric coated (ASPIRIN, ENTERIC COATED) 81 mg EC tablet Take 81 mg by mouth once daily. cholecalciferol (VITAMIN D3) 50 mcg (2,000 unit) tablet Take 2,000 Units by mouth once daily. Ascorbic Acid 1,000 mg TbER Take by mouth. amLODIPine (NORVASC) 5 mg tablet Take 1 tablet by mouth twice daily. No current facility-administered medications on file prior to visit. 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 Find root cause, and stop/reverse Alzheimer's: Memory is not any better now, short-term memory is still not good 2. Get blood pressure regulated-since being back home, that seems to have normalized. BP medication has been reduced 3. Stop re-occuring bladder infections Nutrition Assessment (updated 05/19/23) Current Symptom Review: -Gets more anxious, nervous, fidgety around 4PM and last 3-4 hours. -bed 10-10:15, may wake 1-2x to use restroom but sleeps all night until 8am. -gained 25# in the last year Food and Nutrition History (update): Seamus (Dairy-Free, Gluten-Free) -mixing and matching with the gluten and gluten-free foods -making soups with fresh and frozen veggies Current Adverse Reactions to Foods: Yes, previously avoiding wheat, dairy, sugar, grains; not strict with this now Nutrition Assessment (updated 02/15/23) Current Symptom Review: Weight gain from 118->151# after Abilify for anxiety/fear (concerns for weight gain, recently weaned off of that) Food and Nutrition History (update): diet recall updated below; some restaurant meals at [facility] (focuses on 'chicken and vegetables'); endorses fish consumption limited to 2X/month Current Adverse Reactions to Foods: previously avoiding wheat, dairy, sugar, grains; not strict with this now Subjective (12/01/21) Weight has been stable: 118-120 Would like more print outs today vs. [employer] resources Subjective (08/06/21) -Daughter christos on line: states dad is limited in what he can cook Diet Recall: Yes 24 Hour Recall Breakfast: Dr. Angela Bone Protein in hot chocolate in morning, cantaloupe, blueberries, bananas Sleeps another hour Bath and dress Lunch: Eggs with plant cheese, turkey child; soups- homemade with the Aldi products Goes for a ride 4:00 gets nervous anxious Not much of a snacker Dinner: grilled chicken with broccoli and slaw; carrots/beans, sometimes potato Snacks: Asks for ice cream every day Beverages: water, almond milk Anthropometrics There were no vitals taken for this visit. Last Height: Last 1 Encounter Ht Readings: Date: Ht: 02/03/2023 157.5 cm (5' 2 ) Last Weight: Last Wt 05/19/23 : 70.9 kg (156 lb 6.4 oz) 02/03/23 : 68.8 kg (151 lb 9.6 oz) 10/31/22 : 62.2 kg (137 lb 3.2 oz) Wt: 68.8 kg (151 lb 9.6 oz) BMI: 27.73 kg/(m^2) Learning Needs Assessment: Barriers to Learning: Cognitive Assessed motivation to learn: moderate Biochemical and Laboratory Data Conventional/Advanced Testing NutrEval [facility] Date collected: 10/31/2022 Elevated Decreased Oxidative Stress 7 8-OHdG Mitochondrial Dysfunction 7 Magnesium Lactic Acid Isocitric Acid Succinic Acid Malic Acid [place] Imbalance 3 Toxic Exposure 8 Methylation Imbalance 0 Vanilmandelic Acid High Nutrient Needs: a-Lipoic Acid, CoQ10, B2 Moderate Nutrient Needs: Vitamin A, Vitamin C, Vitamin E, B1, B3, B7, B12, Mg, Mangenese, Zinc Laboratory Values Addressed: above Nutrition Prescription Energy: Resting Metabolic Rate: 1111 Protein: 1.0g/kg Nutrients of Concern: see above from NutrEval Nutrition Diagnosis #1: Food and nutrition related knowledge deficit related to lack of prior education as evidenced by patient's verbalized inaccurate/incomplete information. Status: Active Nutrition Intervention (New and Reinforcement): Current Nutrition Goal(s): reduce diet-related inflammation suspected as symptom trigger and promote adequate nutritional intake to meet macro and micronutrient needs Food Plan: Seamus Food Plan Per your description/symptoms- look into Sundowning/Sundowner Syndrome and discuss with Dr. Montero. A. Light- expose to natural light as much as possible throughout the day, especially in the morning. B. Movement- Take 10 minute walks after all 3 meals to balance blood sugar. Activity also helps with symptoms of sundowning. C. Snack- add a light protein-containing snack at 3pm, just prior to symptoms- apple with nut butter, grass-fed beef stick, hard boiled egg, mixed nuts and seeds, vegetables with humus. D. Minimize sugar Chocolate Brands with no refined sugar or dairy: Raaka Taza Hu Mandala Chocolate Honey Mama's Eating Evolved Lakanto Pure 7 Tia's Lionel Zero Pascha Recipes -Paleo Hot Chocolate: https://Art Loft/vegan-hot -chocolate-paleo/ -Keto No Bake Brownie Bites: https://www.Scodix/keto -sh-dofi-wuwefhm-bites/ -Whole Food Fudge: https://AAIPharma Services/easy-raw -zouif-jevbs-luzye/ 2. Continue focus on the SEAMUS food plan principles previously discussed: -[place]-3 Rich Fish (wild-caught salmon, mackerel, anchovies, sardines, rodrigues): twice per week -Continue grass-fed beef 3-4X/week -Add legumes 3-4X/week Three jamil salad recipe: https://Veset/class bf-cyfzr-vwme-salad/ -Add homemade vinaigrette coleslaw or green salad daily Vinegar based coleslaw: https://www.EventRadar/vine sek-teaem-jjwknvuc/ -Continue nuts/seeds daily I.e. almonds, walnuts, pecans (continue these on fruit) -Include olive oil daily; use avocado or coconut oil for higher heat cooking -Limit juice serving to 2oz at a time: 100% organic grape, blueberry or pomegranate are good choices -Add frozen organic spinach to cooking: eggs, soups -Berries: incorporate 1/2 cup 5 days per week -Incorporate squashes and carrots regularly -Find a new recipe that incorporates turmeric! (see soup idea below) Resources/Educational Materials Provided: sent through [facility] Adherence Potential to Goals/Care Plan: Moderate Nutrition Monitoring & Evaluation: Meal and Snack Pattern, Nutrition Related Laboratory Values, Protein Intake, and Subjective Symptoms Criteria: Laboratory Data, MSQ, Dietary Recall Follow up: as scheduled Time Spent with patient: 30 minutes Consult Billing Type: Reassessment/15 minutes, 2 increment(s), 30 minutes Number of Increments: 2 (30 minutes) Referred/Supervised by: Christiana Montero MD Signed by: Shelley Mitchell RD documented in this encounter [facility] 04-25-2023 Hospital Discharg e instructions Patient Education 04/25/2023 12:19:15 Urinary Tract Infection, Adult, Mmrr-we-Zxko Urinary Tract Infection, Adult A urinary tract infection (UTI) is an infection of any part of the urinary tract. The urinary tract includes: The kidneys. The ureters. The bladder. The urethra. These organs make, store, and get rid of pee (urine) in the body. What are the causes? This infection is caused by germs (bacteria) in your genital area. These germs grow and cause swelling (inflammation) of your urinary tract. What increases the risk? The following factors may make you more likely to develop this condition: Using a small, thin tube (catheter) to drain pee. Not being able to control when you pee or poop (incontinence). Being female. If you are female, these things can increase the risk: ?Using these methods to prevent : ?A medicine that kills sperm (spermicide). ?A device that blocks sperm (diaphragm). ?Having low levels of a female hormone (estrogen). ?Being . You are more likely to develop this condition if: You have genes that add to your risk. You are sexually active. You take antibiotic medicines. You have trouble peeing because of: ?A prostate that is bigger than normal, if you are male. ?A blockage in the part of your body that drains pee from the bladder. ?A kidney stone. ?A nerve condition that affects your bladder. ?Not getting enough to drink. ?Not peeing often enough. You have other conditions, such as: ?Diabetes. ?A weak disease-fighting system (immune system). ?Sickle cell disease. ?Gout. ?Injury of the spine. What are the signs or symptoms? Symptoms of this condition include: Needing to pee right away. Peeing small amounts often. Pain or burning when peeing. Blood in the pee. Pee that smells bad or not like normal. Trouble peeing. Pee that is cloudy. Fluid coming from the vagina, if you are female. Pain in the belly or lower back. Other symptoms include: Vomiting. Not feeling hungry. Feeling mixed up (confused). This may be the first symptom in older adults. Being tired and grouchy (irritable). A fever. Watery poop (diarrhea). How is this treated? Taking antibiotic medicine. Taking other medicines. Drinking enough water. In some cases, you may need to see a specialist. Follow these instructions at home: Medicines Take tomf-isb-lhqgcwk and prescription medicines only as told by your doctor. If you were prescribed an antibiotic medicine, take it as told by your doctor. Do not stop taking it even if you start to feel better. General instructions Make sure you: ?Pee until your bladder is empty. ?Do not hold pee for a long time. ?Empty your bladder after sex. ?Wipe from front to back after peeing or pooping if you are a female. Use each tissue one time when you wipe. Drink enough fluid to keep your pee pale yellow. Keep all follow-up visits. Contact a doctor if: You do not get better after 1 2 days. Your symptoms go away and then come back. Get help right away if: You have very bad back pain. You have very bad pain in your lower belly. You have a fever. You have chills. You feeling like you will vomit or you vomit. Summary A urinary tract infection (UTI) is an infection of any part of the urinary tract. This condition is caused by germs in your genital area. There are many risk factors for a UTI. Treatment includes antibiotic medicines. Drink enough fluid to keep your pee pale yellow. This information is not intended to replace advice given to you by your health care provider. Make sure you discuss any questions you have with your health care provider. Document Revised: 05/07/2021 Document Reviewed: 05/07/2021 [employer] Patient Education 2022 Pulmocide. Follow Up Care 08/08/2022 16:24:54 With:DANIEL BOYER, ELLEN Bell, URL Address: [address] [place] [address] When: Unknown [facility] 02-17-2023 Miscellaneous Notes NUTRITION RESOURCES SENT VIA [employer]. Evelyn Flaherty LPN February 17, 2023 8:17 AM documented in this encounter [facility] 02-16-2023 Instructions Kasey Hernández RD - 02/16/2023 2:20 PM EDT [facility] FOLLOW UP NUTRITION INSTRUCTIONS Nutrition Follow-up: In 6 months with Kasey Hernández RD. Your Prescribed Nutrition Plan: Seamus (Gluten-Free) 1. Continue with Seamus Food Plan (Dairy-Free/Gluten-Free), with the following targets: -[place]-3 Rich Fish (wild-caught salmon, mackerel, anchovies, sardines, rodrigues): twice per week -Continue grass-fed beef 3-4X/week -Add legumes 3-4X/week Three jamil salad recipe: https://Gidsy.[employer]/class bh-ljafg-qfqs-salad/ -Add homemade vinaigrette coleslaw or green salad daily Vinegar based coleslaw: https://www.Summon.[employer]/vine mxi-jpxxb-piuykdsa/ -Continue nuts/seeds daily I.e. almonds, walnuts, pecans (continue these on fruit) -Include olive oil daily; use avocado or coconut oil for higher heat cooking -Limit juice serving to 2oz at a time: 100% organic grape, blueberry or pomegranate are good choices -Add frozen organic spinach to cooking: eggs, soups -Berries: incorporate 1/2 cup 5 days per week -Incorporate squashes and carrots regularly -Find a new recipe that incorporates turmeric! (see soup idea below) 2. For bread, use [employer] Brand Base MemSQL: https://[employer]/ (Keto bread near you in [place]) -Avoid starches, canola oil and sugars in gluten-free breads 3. Increase foods rich in B Vitamins; choose at least 1-2 from each B-Vitamin list daily: Vitamin B1 (Thiamin): Beans (black, hobbs, navy, dias, etc.), lentils, oats, peas, sunflower seeds Vitamin B2 (Riboflavin): Almonds, asparagus, beef, broccoli, cheese, chicken, dark leafy greens (beet greens, spinach, etc.), eggs, halibut, mushrooms (crimini), salmon, soybeans Vitamin B6 (Pyridoxine): Banana, beef, chicken, potatoes, salmon, spinach, sunflower seeds, sweet potato, tuna, turkey Vitamin B9 (Folate): Asparagus, beans (black, garbanzo, kidney, navy, dias, etc.), broccoli, dark leafy greens (spinach, turnip greens, etc.), lentils Vitamin B12 (Cobalamin): Beef, cheese, chicken, clams, cod, crab, eggs, chacko, mackarel, mussels, rockfish, salmon, sardines, scallops, shrimp, turkey Derived from: IFM Micronutrients: Vitamins ADDITIONAL INSTRUCTIONS: How to Contact Your Functional Medicine Team (Open M-F 8am-5pm): 1. iHealthHomehart is the BEST form of communication to reach the Functional Medicine Team, see test results and request refills. Please allow 72 business hours for a response. Directions for signing up are included in your New Patient Folder. (Or you can go to [email or web address]) 2. For nutrition related questions or concerns, VeriFone message your physician and include Attn: Kasey Hernández RD at the top of the message. VeriF[employer] messaging is meant to support implementation of previously outlined nutrition care plans. In the interest of safe, effective and personalized care, you are asked to schedule a follow-up appointment if: It has been >6 months since your last nutrition appointment Your question requires reassessment or involves a new plan of care Your question concerns a new diagnosis, symptoms(s) and/or health concern Ordering Supplements: Supplements can be ordered from the [facility]'s Online Store: [email or web address] New patients to the [facility]yer Shop will need to enter the provider code FUNCTIONAL to register their account. documented in this encounter [facility] 02-15-2023 Note HNO ID: [id number] Author: Kasey Hernández RD Service: ? Author Type: Registered Dietitian Type: Progress Notes Filed: 02/16/2023 2:20 PM Note Text: [facility] Nutrition Therapy: Follow-Up Assessment (Individual) IN PERSON Patient Name: Ann Marie Hill Past Medical History: PAST MEDICAL HISTORY Diagnosis Date Alzheimer disease (HCC) HTN (hypertension) Allergies: Ciprofloxacin, Penicillins, and Sulfa (Sulfonamide Antibiotics) Current Medications/Supplements Current Outpatient Medications on File Prior to Visit Medication Sig PhytoMulti 60s capsules (Metagenics) Take 2 capsules daily, with meals. Glycine (Pure Encapsulations) Take 1 capsule 3 times daily in divided doses between meals. (1 [id number]) B-Complex Plus (Pure Encapsulations) Take 1 capsule by mouth daily with food. Glutathione (Spotify) Use 20 pumps daily (1000mg) divided doses through out the day. (2 pumps = 100 mg Glutathione) ARIPiprazole (ABILIFY) 2 mg tablet Take 2 mg by mouth once daily. desvenlafaxine ER (PRISTIQ) 50 mg 24 hr tablet Take 50 mg by mouth once daily. vitamin E, dl,tocopheryl acet, (VITAMIN E, DL, ACETATE, ORAL) Take 1,000 Units by mouth once daily. OmegaGenics EPA-DHA 2400 (High Concentrate EPA/DHA liquid) (Beegit) Take one teaspoon (5 ml) 1 times daily with food UT Synergy (All Web Leads) antibacterial Take 1 capsule by mouth twice daily. Neuromag ( All Web Leads ) 90 ct Take 3 capsules per day or as directed by a healthcare professional. coQ10, ubiquinol, 100 mg cap Take 1 capsule daily with a meal. rosuvastatin (CRESTOR) 40 mg tablet Take 40 mg by mouth once daily. carvedilol (COREG) 12.5 mg tablet Take 12.5 mg by mouth twice daily. aspirin, enteric coated (ASPIRIN, ENTERIC COATED) 81 mg EC tablet Take 81 mg by mouth once daily. cholecalciferol (VITAMIN D3) 50 mcg (2,000 unit) tablet Take 2,000 Units by mouth once daily. Ascorbic Acid 1,000 mg TbER Take by mouth. amLODIPine (NORVASC) 5 mg tablet Take 1 tablet by mouth twice daily. No current facility-administered medications on file prior to visit. 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 Find root cause, and stop/reverse Alzheimer's: Memory is not any better now, short-term memory is still not good 2. Get blood pressure regulated-since being back home, that seems to have normalized. BP medication has been reduced 3. Stop re-occuring bladder infections Nutrition Assessment (updated 02/15/23) Current Symptom Review: Weight gain from 118->151# after Abilify for anxiety/fear (concerns for weight gain, recently weaned off of that) Food and Nutrition History (update): diet recall updated below; some restaurant meals at [employer] (focuses on 'chicken and vegetables'); endorses fish consumption limited to 2X/month Current Adverse Reactions to Foods: previously avoiding wheat, dairy, sugar, grains; not strict with this now Subjective (12/01/21) Weight has been stable: 118-120 Would like more print outs today vs. VeriFone resources Subjective (08/06/21) -Daughter christos on line: states dad is limited in what he can cook Diet Recall: Yes B: Dr. Merlos Bone Protein in hot chocolate in morning, cantaloupe, blueberries, bananas L: Eggs, turkey child, every once in a while will 'cheat' with wheat bread D: Chicken or grass-fed hamburger, baked red, white or sweet potato, squash/green beans/mixed vegetables Beverages: water, almond milk Anthropometrics There were no vitals taken for this visit. Last Height: Last 1 Encounter Ht Readings: Date: Ht: 02/03/2023 157.5 cm (5' 2 ) Last Weight: Last Wt 02/03/23 : 68.8 kg (151 lb 9.6 oz) 10/31/22 : 62.2 kg (137 lb 3.2 oz) 07/25/22 : 61 kg (134 lb 8 oz) Wt: 68.8 kg (151 lb 9.6 oz) BMI: 27.73 kg/(m2) Learning Needs Assessment: Barriers to Learning: Ready to Learn (no barriers noted) Assessed motivation to learn: moderate Biochemical and Laboratory Data Conventional/Advanced Testing NutrEval [facility] Date collected: Elevated Decreased Oxidative Stress 7 8-OHdG Mitochondrial Dysfunction 7 Magnesium Lactic Acid Isocitric Acid Succinic Acid Malic Acid [place] Imbalance 3 Toxic Exposure 8 Methylation Imbalance 0 Vanilmandelic Acid High Nutrient Needs: a-Lipoic Acid, CoQ10, B2 Moderate Nutrient Needs: Vitamin A, Vitamin C, Vitamin E, B1, B3, B7, B12, Mg, Mangenese, Zinc Laboratory Values Addressed: Relevant Items in Bold Nutrition Prescription Energy: Resting Metabolic Rate: 1111 Protein: 1.0g/kg Nutrients of Concern: see above from NutrEval Nutrition Diagnosis #1: Food and nutrition related knowledge deficit related to lack of prior education as evidenced by patient's verbalized inaccurate/incomplete inform (more content not included)... 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 - Glycine (Pure Encapsulations) Take 1 capsule 3 times daily in divided doses between meals. (1 [id number]) - B-Complex Plus (Pure Encapsulations) Take 1 capsule by mouth daily with food. - Glutathione (Spotify) Use 20 pumps daily (1000mg) divided doses through out the day. (2 pumps = 100 mg Glutathione) - ARIPiprazole (ABILIFY) 2 mg tablet Take 2 mg by mouth once daily. - desvenlafaxine ER (PRISTIQ) 50 mg 24 hr tablet Take 50 mg by mouth once daily. - vitamin E, dl,tocopheryl acet, (VITAMIN E, DL, ACETATE, ORAL) Take 1,000 Units by mouth once daily. - OmegaGenics EPA-DHA 2400 (High Concentrate EPA/DHA liquid) (Beegit) Take one teaspoon (5 ml) 1 times daily with food - UT Synergy (All Web Leads) antibacterial Take 1 capsule by mouth twice daily. - Neuromag ( All Web Leads ) 90 ct Take 3 capsules per day or as directed by a healthcare professional. - coQ10, ubiquinol, 100 mg cap Take 1 capsule daily with a meal. - rosuvastatin (CRESTOR) 40 mg tablet Take 40 mg by mouth once daily. - carvedilol (COREG) 12.5 mg tablet Take 12.5 mg by mouth twice daily. - aspirin, enteric coated (ASPIRIN, ENTERIC COATED) 81 mg EC tablet Take 81 mg by mouth once daily. - cholecalciferol (VITAMIN D3) 50 mcg (2,000 unit) tablet Take 2,000 Units by mouth once daily. - Ascorbic Acid 1,000 mg TbER Take by mouth. - amLODIPine (NORVASC) 5 mg tablet Take 1 tablet by mouth twice daily. Encounter Status:Closed by KASEY RAE on 02/16/23 [facility] 02-15-2023 History of Presen t illness Narrative [facility] Functional Medicine Nutrition Therapy: Follow-Up Assessment (Individual) IN PERSON Patient Name: Ann Marie Hill Past Medical History: PAST MEDICAL HISTORY Diagnosis Date Alzheimer disease (HCC) HTN (hypertension) Allergies: Ciprofloxacin, Penicillins, and Sulfa (Sulfonamide Antibiotics) Current Medications/Supplements Current Outpatient Medications on File Prior to Visit Medication Sig PhytoMulti 60s capsules (Beegit) Take 2 capsules daily, with meals. Glycine (Pure Encapsulations) Take 1 capsule 3 times daily in divided doses between meals. (1 [id number]) B-Complex Plus (Pure Encapsulations) Take 1 capsule by mouth daily with food. Glutathione (Spotify) Use 20 pumps daily (1000mg) divided doses through out the day. (2 pumps = 100 mg Glutathione) ARIPiprazole (ABILIFY) 2 mg tablet Take 2 mg by mouth once daily. desvenlafaxine ER (PRISTIQ) 50 mg 24 hr tablet Take 50 mg by mouth once daily. vitamin E, dl,tocopheryl acet, (VITAMIN E, DL, ACETATE, ORAL) Take 1,000 Units by mouth once daily. OmegaGenics EPA-DHA 2400 (High Concentrate EPA/DHA liquid) (Beegit) Take one teaspoon (5 ml) 1 times daily with food UT Synergy (All Web Leads) antibacterial Take 1 capsule by mouth twice daily. Neuromag ( All Web Leads ) 90 ct Take 3 capsules per day or as directed by a healthcare professional. coQ10, ubiquinol, 100 mg cap Take 1 capsule daily with a meal. rosuvastatin (CRESTOR) 40 mg tablet Take 40 mg by mouth once daily. carvedilol (COREG) 12.5 mg tablet Take 12.5 mg by mouth twice daily. aspirin, enteric coated (ASPIRIN, ENTERIC COATED) 81 mg EC tablet Take 81 mg by mouth once daily. cholecalciferol (VITAMIN D3) 50 mcg (2,000 unit) tablet Take 2,000 Units by mouth once daily. Ascorbic Acid 1,000 mg TbER Take by mouth. amLODIPine (NORVASC) 5 mg tablet Take 1 tablet by mouth twice daily. No current facility-administered medications on file prior to visit. 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 Find root cause, and stop/reverse Alzheimer's: Memory is not any better now, short-term memory is still not good 2. Get blood pressure regulated-since being back home, that seems to have normalized. BP medication has been reduced 3. Stop re-occuring bladder infections Nutrition Assessment (updated 02/15/23) Current Symptom Review: Weight gain from 118->151# after Abilify for anxiety/fear (concerns for weight gain, recently weaned off of that) Food and Nutrition History (update): diet recall updated below; some restaurant meals at [employer] (focuses on 'chicken and vegetables'); endorses fish consumption limited to 2X/month Current Adverse Reactions to Foods: previously avoiding wheat, dairy, sugar, grains; not strict with this now Subjective (12/01/21) Weight has been stable: 118-120 Would like more print outs today vs. VeriFone resources Subjective (08/06/21) -Daughter christos on line: states dad is limited in what he can cook Diet Recall: Yes B: Dr. Merlos Bone Protein in hot chocolate in morning, cantaloupe, blueberries, bananas L: Eggs, turkey child, every once in a while will 'cheat' with wheat bread D: Chicken or grass-fed hamburger, baked red, white or sweet potato, squash/green beans/mixed vegetables Beverages: water, almond milk Anthropometrics There were no vitals taken for this visit. Last Height: Last 1 Encounter Ht Readings: Date: Ht: 02/03/2023 157.5 cm (5' 2 ) Last Weight: Last Wt 02/03/23 : 68.8 kg (151 lb 9.6 oz) 10/31/22 : 62.2 kg (137 lb 3.2 oz) 07/25/22 : 61 kg (134 lb 8 oz) Wt: 68.8 kg (151 lb 9.6 oz) BMI: 27.73 kg/(m^2) Learning Needs Assessment: Barriers to Learning: Ready to Learn (no barriers noted) Assessed motivation to learn: moderate Biochemical and Laboratory Data Conventional/Advanced Testing NutrEval [facility] Date collected: Elevated Decreased Oxidative Stress 7 8-OHdG Mitochondrial Dysfunction 7 Magnesium Lactic Acid Isocitric Acid Succinic Acid Malic Acid [place] Imbalance 3 Toxic Exposure 8 Methylation Imbalance 0 Vanilmandelic Acid High Nutrient Needs: a-Lipoic Acid, CoQ10, B2 Moderate Nutrient Needs: Vitamin A, Vitamin C, Vitamin E, B1, B3, B7, B12, Mg, Mangenese, Zinc Laboratory Values Addressed: Relevant Items in Bold Nutrition Prescription Energy: Resting Metabolic Rate: 1111 Protein: 1.0g/kg Nutrients of Concern: see above from NutrEval Nutrition Diagnosis #1: Food and nutrition related knowledge deficit related to lack of prior education as evidenced by patient's verbalized inaccurate/incomplete information. Status: Active Nutrition Diagnosis #2: Unintended* Weight Loss related to dietary modifications as evidenced by weight of 119#, down from 126# Status: No longer applicable; recent medication-related weight gain Nutrition Intervention (New and Reinforcement): Current Nutrition Goal(s): reduce diet-related inflammation suspected as symptom trigger, improve nutritional inadequacies suspected as symptom or disease contributor, identify food sensitivities suspected as symptom trigger, promote adequate nutritional intake to meet macro and micronutrient needs, and promote balanced macronutrient intake Food Plan: Seamus (Dairy-Free, Gluten-Free) 1. Continue with Seamus Food Plan (Dairy-Free/Gluten-Free), with the following targets: -[place]-3 Rich Fish (wild-caught salmon, mackerel, anchovies, sardines, rodrigues): twice per week -Continue grass-fed beef 3-4X/week -Add legumes 3-4X/week Three jamil salad recipe: https://[employer]eset/class dv-ccgyl-pldm-salad/ -Add homemade vinaigrette coleslaw or green salad daily Vinegar based coleslaw: https://www.[employer]/vine thd-aspru-vzcbtncl/ -Continue nuts/seeds daily I.e. almonds, walnuts, pecans (continue these on fruit) -Include olive oil daily; use avocado or coconut oil for higher heat cooking -Limit juice serving to 2oz at a time: 100% organic grape, blueberry or pomegranate are good choices -Add frozen organic spinach to cooking: eggs, soups -Berries: incorporate 1/2 cup 5 days per week -Incorporate squashes and carrots regularly -Find a new recipe that incorporates turmeric! (see soup idea below) 2. For bread, use [employer] Brand Base Culture: https://[employer]/ (Keto bread near you in [place]) -Avoid starches, canola oil and sugars in gluten-free breads 3. Increase foods rich in B Vitamins; choose at least 1-2 from each B-Vitamin list daily: Vitamin B1 (Thiamin): Beans (black, hobbs, navy, dias, etc.), lentils, oats, peas, sunflower seeds Vitamin B2 (Riboflavin): Almonds, asparagus, beef, broccoli, cheese, chicken, dark leafy greens (beet greens, spinach, etc.), eggs, halibut, mushrooms (crimini), salmon, soybeans Vitamin B6 (Pyridoxine): Banana, beef, chicken, potatoes, salmon, spinach, sunflower seeds, sweet potato, tuna, turkey Vitamin B9 (Folate): Asparagus, beans (black, garbanzo, kidney, navy, dias, etc.), broccoli, dark leafy greens (spinach, turnip greens, etc.), lentils Vitamin B12 (Cobalamin): Beef, cheese, chicken, clams, cod, crab, eggs, chacko, mackarel, mussels, rockfish, salmon, sardines, scallops, shrimp, turkey Derived from: IFM Micronutrients: Vitamins Resources/Educational Materials Provided embedded above Adherence Potential to Goals/Care Plan: High Nutrition Monitoring & Evaluation: Meal and Snack Pattern, Nutrition Related Laboratory Values, and Subjective Symptoms Criteria: Laboratory Data, MSQ, Dietary Recall Follow up: 6 months Time Spent with patient: 30 minutes Consult Billing Type: Reassessment/15 minutes, 2 increment(s), 30 minutes Number of Increments: 2 (30 minutes) Referred/Supervised by: Christiana Montero MD Signed by: Kasey Hernández RD documented in this encounter [facility] 02-03-2023 Note HNO ID: [id number] Author: Chirstiana Montero MD Service: ? Author Type: Physician Type: Progress Notes Filed: 02/04/2023 7:35 AM Note Text: FUNCTIONAL MEDICINE FOLLOW-UP ASSESSMENT Patient: Ann Marie Hill There is no height or weight on file to calculate BMI. Resting Metabolic Rate: 1046 Waist measurement: No waist measurement recorded. BP: ALLERGIES Allergen Reactions Ciprofloxacin Unknown Penicillins Hives Sulfa (Sulfonamide * Rash Current Outpatient Medications on File Prior to Visit Medication Sig desvenlafaxine ER (PRISTIQ) 50 mg 24 hr tablet Take 50 mg by mouth once daily. vitamin E, dl,tocopheryl acet, (VITAMIN E, DL, ACETATE, ORAL) Take 1,000 Units by mouth once daily. B-Complex Plus (Pure Encapsulations) Take 2 capsules by mouth daily with food. (Patient not taking: Reported on 10/31/2022) Multi t/d 60 ct. (Pure Encapsulations) - multivitamin Take 1 capsule by mouth twice daily with meals. (Patient not taking: Reported on 10/31/2022) OmegaGenics EPA-DHA 2400 (High Concentrate EPA/DHA liquid) (Beegit) Take one teaspoon (5 ml) 1 times daily with food UT Synergy (All Web Leads) antibacterial Take 1 capsule by mouth twice daily. Brain Misael Capsules (All Web Leads) Take 2 tablets by mouth w MEALS. Neuromag ( All Web Leads ) 90 ct Take 3 capsules per day or as directed by a healthcare professional. Osiris WS 1265 ([employer]) sleep/calming/anxiety 1 at bedtime - may also use 1 in AM for relaxation/anxiety coQ10, ubiquinol, 100 mg cap Take 1 capsule daily with a meal. rosuvastatin (CRESTOR) 40 mg tablet Take 40 mg by mouth once daily. carvedilol (COREG) 12.5 mg tablet Take 12.5 mg by mouth twice daily. aspirin, enteric coated (ASPIRIN, ENTERIC COATED) 81 mg EC tablet Take 81 mg by mouth once daily. cholecalciferol (VITAMIN D3) 50 mcg (2,000 unit) tablet Take 2,000 Units by mouth once daily. (Patient not taking: Reported on 10/31/2022) Ascorbic Acid 1,000 mg TbER Take by mouth. (Patient not taking: Reported on 10/31/2022) amLODIPine (NORVASC) 5 mg tablet Take 1 tablet by mouth twice daily. No current facility-administered medications on file prior to visit. PAST MEDICAL HISTORY Diagnosis Date Alzheimer disease (HCC) HTN (hypertension) No past surgical history on file. No family history on file. Social History Tobacco Use Smoking status: Never Smokeless tobacco: Never EVALUATION No chief complaint on file. 02/02/2023 Christiana Montero MD Last Visit on Oct 2022 Provider: Kylah Symptoms What is the severity of your symptoms? Overall patient has no complaints. Dementia - Wandering at night Daughter noting more anxiety (placed on abilify by PCP with Pristiq). NOting weight gain > 10 lbs. Diet more processed / refined with eating out Nutrition - completed NutrEval for review from last visit in Oct. 10/31/2022 Christiana Montero MD Last Visit on July 2022 Provider: Kylah Symptoms What is the severity of your symptoms?Noting more anxious / fear in evening - progressive. Noting more behavioral changes with ? Auditory. Noting no shift in medication / supplement. Noting no shift in behavioral medication Following the recommended food plan? 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 What symptoms have improved: none at this time Supplements Are you taking recommended supplements? Yes - holding due to NutrEval this PM Exercise Are you performing routine exercise at this time? No due to energy and weather. Sleep Habit How long are you sleeping for? Too many 10 to 12 hours. Noting 10 PM with awakening at 8 to 9 AM. With nap in afternoon Bowel Habits Do you have a daily bowel movement? Yes 07/25/2022 Christiana Montero MD Last Visit on March 2022 Provider Kvng Symptoms What is the severity of your symptoms? Noting short term memory declining along with awareness. Sundowning. Noting shift to Pristiq from lexapro with benefit less agitation. Sleeping majority of day in AM upon awakening and eating - total sleep 10 to 12 hours +. Following the recommended food plan? Mainly following keto at this time not measuring ketones in blood or urine. However, fruits at this time. What symptoms have improved: None Supplements Are you taking recommended supplements? Stopped mold detox - sent labs to [facility] (pending) - home testnig. Frustrated with report and not convinced hasissues. Exercise Are you performing routine exercise at this time? No for motivation / function - What kind of exercise? Walking when Sleep Habit How long are you sleeping for? 10 to 12 hours. Bowel Habits Do you have a daily bowel movement? Yes Number of movements? One - bowel daily. Quality of movements (loose / form / constipation) Weight Are you measuring your weight? Yes or No? What is your current weight? March 17, 2022 Evita Calderon (more content not included)... [facility] 02-03-2023 History of Presen t illness Narrative FUNCTIONAL MEDICINE FOLLOW-UP ASSESSMENT Patient: Ann Marie Hill There is no height or weight on file to calculate BMI. Resting Metabolic Rate: 1046 Waist measurement: No waist measurement recorded. BP: ALLERGIES Allergen Reactions Ciprofloxacin Unknown Penicillins Hives Sulfa (Sulfonamide * Rash Current Outpatient Medications on File Prior to Visit Medication Sig desvenlafaxine ER (PRISTIQ) 50 mg 24 hr tablet Take 50 mg by mouth once daily. vitamin E, dl,tocopheryl acet, (VITAMIN E, DL, ACETATE, ORAL) Take 1,000 Units by mouth once daily. B-Complex Plus (Pure Encapsulations) Take 2 capsules by mouth daily with food. (Patient not taking: Reported on 10/31/2022) Multi t/d 60 ct. (Pure Encapsulations) - multivitamin Take 1 capsule by mouth twice daily with meals. (Patient not taking: Reported on 10/31/2022) OmegaGenics EPA-DHA 2400 (High Concentrate EPA/DHA liquid) (Beegit) Take one teaspoon (5 ml) 1 times daily with food [place] Synergy (All Web Leads) antibacterial Take 1 capsule by mouth twice daily. Brain Misael Capsules (All Web Leads) Take 2 tablets by mouth w MEALS. Neuromag ( All Web Leads ) 90 ct Take 3 capsules per day or as directed by a healthcare professional. Osiris WS 1265 (Integrative Therapeutics) sleep/calming/anxiety 1 at bedtime - may also use 1 in AM for relaxation/anxiety coQ10, ubiquinol, 100 mg cap Take 1 capsule daily with a meal. rosuvastatin (CRESTOR) 40 mg tablet Take 40 mg by mouth once daily. carvedilol (COREG) 12.5 mg tablet Take 12.5 mg by mouth twice daily. aspirin, enteric coated (ASPIRIN, ENTERIC COATED) 81 mg EC tablet Take 81 mg by mouth once daily. cholecalciferol (VITAMIN D3) 50 mcg (2,000 unit) tablet Take 2,000 Units by mouth once daily. (Patient not taking: Reported on 10/31/2022) Ascorbic Acid 1,000 mg TbER Take by mouth. (Patient not taking: Reported on 10/31/2022) amLODIPine (NORVASC) 5 mg tablet Take 1 tablet by mouth twice daily. No current facility-administered medications on file prior to visit. PAST MEDICAL HISTORY Diagnosis Date Alzheimer disease (HCC) HTN (hypertension) No past surgical history on file. No family history on file. Social History Tobacco Use Smoking status: Never Smokeless tobacco: Never EVALUATION No chief complaint on file. 02/02/2023 Christiana Montero MD Last Visit on Oct 2022 Provider: [place] Symptoms What is the severity of your symptoms? Overall patient has no complaints. Dementia - Wandering at night Daughter noting more anxiety (placed on abilify by PCP with Pristiq). NOting weight gain > 10 lbs. Diet more processed / refined with eating out Nutrition - completed NutrEval for review from last visit in Oct. 10/31/2022 Christiana Montero MD Last Visit on July 2022 Provider: Mod[place] Symptoms What is the severity of your symptoms?Noting more anxious / fear in evening - progressive. Noting more behavioral changes with ? Auditory. Noting no shift in medication / supplement. Noting no shift in behavioral medication Following the recommended food plan? 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 What symptoms have improved: none at this time Supplements Are you taking recommended supplements? Yes - holding due to NutrEval this PM Exercise Are you performing routine exercise at this time? No due to energy and weather. Sleep Habit How long are you sleeping for? Too many 10 to 12 hours. Noting 10 PM with awakening at 8 to 9 AM. With nap in afternoon Bowel Habits Do you have a daily bowel movement? Yes 07/25/2022 Christiana Montero MD Last Visit on March 2022 Provider Kvng Symptoms What is the severity of your symptoms? Noting short term memory declining along with awareness. . Noting shift to Pristiq from lexapro with benefit less agitation. Sleeping majority of day in AM upon awakening and eating - total sleep 10 to 12 hours +. Following the recommended food plan? Mainly following keto at this time not measuring ketones in blood or urine. However, fruits at this time. What symptoms have improved: None Supplements Are you taking recommended supplements? Stopped mold detox - sent labs to [facility] (pending) - home testnig. Frustrated with report and not convinced hasissues. Exercise Are you performing routine exercise at this time? No for motivation / function - What kind of exercise? Walking when Sleep Habit How long are you sleeping for? 10 to 12 hours. Bowel Habits Do you have a daily bowel movement? Yes Number of movements? One - bowel daily. Quality of movements (loose / form / constipation) Weight Are you measuring your weight? Yes or No? What is your current weight? March 17, 2022 Evita Calderon MD Subjective: Having continual memory loss, short term memory loss is worse. Eating well, sleeping a lot 10 hrs per day, ( 10 pm, up 7:30 am, then back to bed after breakfast ) Exercise- still having issues with this. Walking was hard. Sits around, puzzle book, watch TV, rides likes this. November 30, 2021 Evita Calderon MD subjective: Pt did the [facility] mycotoxins. Sleeping 10-11 hrs a day, tired all the time, does not want to walk at all. Sometimes is confused about her . Does check the doors at night time. Review of Systems Constitutional: Positive for activity change and fatigue. Psychiatric/Behavioral: Positive for confusion, decreased concentration and sleep disturbance (excess). 02/03/23 1526 BP: 136/59 Pulse: 83 Weight: 68.8 kg (151 lb 9.6 oz) Height: 157.5 cm (5' 2 ) Physical Exam Vitals reviewed. Constitutional: Appearance: Normal appearance. HENT: Head: Normocephalic and atraumatic. Right Ear: Hearing and external ear normal. Left Ear: Hearing and external ear normal. Eyes: General: Lids are normal. Extraocular Movements: Extraocular movements intact. Musculoskeletal: Cervical back: No pain with movement. Neurological: Mental Status: She is alert. Psychiatric: Attention and Perception: Attention and perception normal. Mood and Affect: Mood normal. Speech: Speech normal. Behavior: Behavior normal. Thought Content: Thought content normal. Cognition and Memory: Cognition and memory normal. Judgment: Judgment normal. 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 High amount of oxalate markers ( B vitamin deficiency) at this time. Check with gang drill press operator on how to improve - stressed importance of limiting processing of foods. Use of detox support - glycine / glutathione may assist as well. ?MTBE. With hx of living [place] exposure cumulative to organophosphates. ROle of nasal delivery of NR plus ginsing panax (RG3) may be of sokme yield. 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 Fast eater, Significant other or family don't like healthy foods, Significant other or family have special dietary needs, Love to eat, Struggle with eating issues, Don't care to cook, Confused about nutrition advice Please describe Other special diets or nutrition program:Trying to lower sugar, gluten, and dairy Vit D 62.8 Nutrieval (reviewed 02/03/23 DATE Oct 2022 High need B2,ALA,CoQ10 Moderate need A,C,E,GSH,B1,B3,B7,B12 Amino Acids Glycine 744 Malabsorption markers INdolacetic, Phenylacetic,Benzoic, DHPAA Detox Markers Yeast markers Citramalic [place] 3 Index NOrmal Oxidative stress Lipid 9.7 8OHdg 11 Heavy metals Other Oxalate markers (glyceric, glycolic, oxalic) - all elevated Maritza Nutreval Jun 2020 High Need: Mod Need: All B's Amino acids: Malabsorption markers: Bacterial dysbiosis markers: Fungal dysbiosis markers:arabinose 55 Toxin/detox markers: high [place]-3 Index: 4.3 Glutathione level:998 Lipid peroxides:8.5 Toxic elements: Lead 0.71 <= 2.81 mcg/dL Mercury 0.75 <= 4.35 mcg/L Arsenic 1.3 <= 13.7 mcg/L Cadmium 0.57 <= 1.22 mcg/L Tin 0.91 Digestive Function Daily T & A S/p Maureen Inflammation/Immune Function Yeast Infections-UTI's ASCVD High chol- crestor 40 mg x yrs Hypertension- good control Prediabetes A1 C 6.0 %--> 5.2 % Energy Production/Function: Fatigue, Weight issues-loss Cognitive decline/brain fog- Alzheimer's ( paranoia)- Arnaldo made her dizzy. 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 Use of a low oxalate diet may assist Begin the following: Quality multivitamin due to needs B Complex Plus (due to lack of B nutrients on your NutrEval) 1 capsule daily - should already be on this Glycine 500 mg (to support detox) 1 capsules twice daily Glutathione (reduced) - 500 mg daily - I prefer Pure Encapsulations Liposomal CoQ10 - ubiquinol 100 mg daily Cell Membrane / Lipid Support - not to treat lipid levels but change them out due to damage Bad lipids to build up around and inside the mitochondria - the energy factory of the cell. These bad fats cause inflammation, poor communication between cells, and consequently inhibit healing Phosphatidylcholines (PC), also known as lecithin, are specialized fat molecules that are used to construct cell membranes - - use of 2 tablespoons of Galdamez Schleicher Lecithin Powder twice daily Consider Synapsin (compounded nasal spray) to assist for mood / anxiety - notify if wishing to consider. 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 Exercise Prescription: Continue your current exercise as tolerated. Supplement Support Review supplements - Based upon your labs and progress I may further recommend you consider these items to supplement. No orders of the defined types were placed in this encounter. Ordering Supplementation: We recommend ordering supplementation online from the [facility] as they are high quality therapeutic supplements. [facility] offers an easy to use, convenient way to order supplementation recommended by your provider through the [facility]. All of the products offered are considered high-quality, and adhere to specific criteria for quality and effectiveness including good manufacturing practices, use of clean products, free of fillers, binders, and other antigens. In addition, we follow third libertarian analysis for independent verification of active ingredients. Get started by following three easy steps: A. Visit the following webpage: https://[employer].bitFlyer/ [facility] Statements on this site have not been evaluated by the Food and Drug Administration. B. Create an account: Enter your first name, last name, email address which will be your username Create password Select a referring physician from the dropdown box. If they are not listed, select other If you are a new patient, enter the following provider code: functional C. Order recommended supplementation! Enter the supplement name in the search box Add all supplements to your cart and proceed to checkout. Orders of $100 or more qualify for free shipping. *Please allow 5-7 business days for delivery. For issues with your MRN please call [phone] Stress Management ArthaYantra Neuro -new technology to use a wearable device to retrain brain and focus on nervous system reduction. To learn more of this technology by going to (peb-imb-mimwi) https://Medical Connections/ Please look into this Heart Rate Variability BioFeedback Tool (www.heartmath.org). You can see the research that has been put into this very valuable tool under the Resources and Research tabs. This can be used as an poncho on your smart phone.To use this technology will need to buy a sensor that plugs right into the phone for about $100. First, get one of the Heart Math booklets off Seen that fits your 'go to' emotion - Transforming Anger, Anxiety, Stress, Depression, or PTSD. Five minutes 3 times a day is more effective than 15 minutes in one sitting. A regular, daily meditation practice of at least 15-20 minutes will change your brain--as well as your genes! Preliminary studies demonstrate gene expression is modified in those who meditate regularly leading to down-regulation of pro-inflammatory genes. This results in reduced inflammation, as well as improvements in the body's response to stress via the hormone cortisol, in the intervention groups vs. the controls. Although more research is needed, these findings suggest a definite role for meditation in the treatment and prevention of chronic inflammatory conditions. Smart phone apps to begin a meditative practice: Headspace (free for first 10 days) Insight Meditation Timer- (Free)-Great all-around poncho to use for guided meditations of many different types and lengths or just to use as a tool to time and track your meditation practice. Calm- (Free) Walking Meditations-($1.99)- Get your walk AND meditation done together. A good way to start out for individuals who feel they just can't sit still to begin a meditative practice. Vagal Tone Look at the following work on harnessing the relaxation response by the following providers (you should look at one which appeals to you fully) . --- Polyvagal theory (Connor Ybarra) https://www.stephenporges.com/ --- Dynamic Neural Retraining System - (Ketty Christensen) https://retrainingthebrain.[email or web address]/julieth castro/ --- Frias Program - (John Frias) Https://www.jose rafaelptaTPP [employer]/ Finding time for self (no multitasking) at this time to dedicate to breathing / relaxation process. Work on cultivating ted! Future Plans (for provider use): I spent a total of 45 minutes on the date of the service which included preparing to see the patient, ajkz-hr-qmix patient care, completing clinical documentation, obtaining and/or reviewing separately obtained history, performing a medically appropriate examination, and ordering medications, tests, or procedures. Christiana Montero MD documented in this encounter [facility] 10-31-2022 Note HNO ID: [id number] Author: Christiana Montero MD Service: ? Author Type: Physician Type: Progress Notes Filed: 10/31/2022 1:49 PM Note Text: FUNCTIONAL MEDICINE FOLLOW-UP ASSESSMENT Patient: Ann Marie Hill Body mass index is 25.09 kg/m?. Resting Metabolic Rate: 1039 Waist measurement: No waist measurement recorded. BP: 143/68 ALLERGIES Allergen Reactions Ciprofloxacin Unknown Penicillins Hives Sulfa (Sulfonamide * Rash Current Outpatient Medications on File Prior to Visit Medication Sig desvenlafaxine ER (PRISTIQ) 50 mg 24 hr tablet Take 50 mg by mouth once daily. vitamin E, dl,tocopheryl acet, (VITAMIN E, DL, ACETATE, ORAL) Take 1,000 Units by mouth once daily. B-Complex Plus (Pure Encapsulations) Take 2 capsules by mouth daily with food. Multi t/d 60 ct. (Pure Encapsulations) - multivitamin Take 1 capsule by mouth twice daily with meals. OmegaGenics EPA-DHA 2400 (High Concentrate EPA/DHA liquid) (Beegit) Take one teaspoon (5 ml) 1 times daily with food UT Synergy (All Web Leads) antibacterial Take 1 capsule by mouth twice daily. Brain Misael Capsules (All Web Leads) Take 2 tablets by mouth w MEALS. Neuromag ( All Web Leads ) 90 ct Take 3 capsules per day or as directed by a healthcare professional. Osiris WS 1265 (Integrative Therapeutics) sleep/calming/anxiety 1 at bedtime - may also use 1 in AM for relaxation/anxiety coQ10, ubiquinol, 100 mg cap Take 1 capsule daily with a meal. rosuvastatin (CRESTOR) 40 mg tablet Take 40 mg by mouth once daily. carvedilol (COREG) 12.5 mg tablet Take 12.5 mg by mouth twice daily. aspirin, enteric coated (ASPIRIN, ENTERIC COATED) 81 mg EC tablet Take 81 mg by mouth once daily. cholecalciferol (VITAMIN D3) 50 mcg (2,000 unit) tablet Take 2,000 Units by mouth once daily. Ascorbic Acid 1,000 mg TbER Take by mouth. amLODIPine (NORVASC) 5 mg tablet Take 1 tablet by mouth twice daily. No current facility-administered medications on file prior to visit. PAST MEDICAL HISTORY Diagnosis Date Alzheimer disease (HCC) HTN (hypertension) No past surgical history on file. No family history on file. Social History Tobacco Use Smoking status: Never Smokeless tobacco: Never EVALUATION Patient presents with: Established Patient 10/31/2022 Christiana Montero MD Last Visit on July 2022 Provider: [place]yl[place] Symptoms What is the severity of your symptoms?Noting more anxious / fear in evening - progressive. Noting more behavioral changes with ? Auditory. Noting no shift in medication / supplement. Noting no shift in behavioral medication Following the recommended food plan? 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 What symptoms have improved: none at this time Supplements Are you taking recommended supplements? Yes - holding due to NutrEval this PM Exercise Are you performing routine exercise at this time? No due to energy and weather. Sleep Habit How long are you sleeping for? Too many 10 to 12 hours. Noting 10 PM with awakening at 8 to 9 AM. With nap in afternoon Bowel Habits Do you have a daily bowel movement? Yes 07/25/2022 Christiana Montero MD Last Visit on March 2022 Provider Kvng Symptoms What is the severity of your symptoms? Noting short term memory declining along with awareness. Sundowning. Noting shift to Pristiq from lexapro with benefit less agitation. Sleeping majority of day in AM upon awakening and eating - total sleep 10 to 12 hours +. Following the recommended food plan? Mainly following keto at this time not measuring ketones in blood or urine. However, fruits at this time. What symptoms have improved: None Supplements Are you taking recommended supplements? Stopped mold detox - sent labs to [facility] (pending) - home testnig. Frustrated with report and not convinced hasissues. Exercise Are you performing routine exercise at this time? No for motivation / function - What kind of exercise? Walking when Sleep Habit How long are you sleeping for? 10 to 12 hours. Bowel Habits Do you have a daily bowel movement? Yes Number of movements? One - bowel daily. Quality of movements (loose / form / constipation) Weight Are you measuring your weight? Yes or No? What is your current weight? March 17, 2022 Evita Claderon MD Subjective: Having continual memory loss, short term memory loss is worse. Eating well, sleeping a lot 10 hrs per day, ( 10 pm, up 7:30 am, then back to bed after breakfast ) Exercise- still having issues with this. Walking was hard. Sits around, puzzle book, watch TV, rides likes this. November 30, 2021 Evita Calderon MD subjective: Pt did the [facility] mycotoxins. Sleeping 10-11 hrs a day, tired all the time, does not want to walk at all. Sometimes is confused about her . Does check the doors at night time. Review of Systems Constitutional: (more content not included)... [facility] 10-31-2022 History of Presen t illness Narrative FUNCTIONAL MEDICINE FOLLOW-UP ASSESSMENT Patient: Ann Marie Hill Body mass index is 25.09 kg/m . Resting Metabolic Rate: 1039 Waist measurement: No waist measurement recorded. BP: 143/68 ALLERGIES Allergen Reactions Ciprofloxacin Unknown Penicillins Hives Sulfa (Sulfonamide * Rash Current Outpatient Medications on File Prior to Visit Medication Sig desvenlafaxine ER (PRISTIQ) 50 mg 24 hr tablet Take 50 mg by mouth once daily. vitamin E, dl,tocopheryl acet, (VITAMIN E, DL, ACETATE, ORAL) Take 1,000 Units by mouth once daily. B-Complex Plus (Pure Encapsulations) Take 2 capsules by mouth daily with food. Multi t/d 60 ct. (Pure Encapsulations) - multivitamin Take 1 capsule by mouth twice daily with meals. OmegaGenics EPA-DHA 2400 (High Concentrate EPA/DHA liquid) (Beegit) Take one teaspoon (5 ml) 1 times daily with food UT Synergy (All Web Leads) antibacterial Take 1 capsule by mouth twice daily. Brain Misael Capsules (All Web Leads) Take 2 tablets by mouth w MEALS. Neuromag ( All Web Leads ) 90 ct Take 3 capsules per day or as directed by a healthcare professional. Osiris WILKINSON 1265 (Integrative Therapeutics) sleep/calming/anxiety 1 at bedtime - may also use 1 in AM for relaxation/anxiety coQ10, ubiquinol, 100 mg cap Take 1 capsule daily with a meal. rosuvastatin (CRESTOR) 40 mg tablet Take 40 mg by mouth once daily. carvedilol (COREG) 12.5 mg tablet Take 12.5 mg by mouth twice daily. aspirin, enteric coated (ASPIRIN, ENTERIC COATED) 81 mg EC tablet Take 81 mg by mouth once daily. cholecalciferol (VITAMIN D3) 50 mcg (2,000 unit) tablet Take 2,000 Units by mouth once daily. Ascorbic Acid 1,000 mg TbER Take by mouth. amLODIPine (NORVASC) 5 mg tablet Take 1 tablet by mouth twice daily. No current facility-administered medications on file prior to visit. PAST MEDICAL HISTORY Diagnosis Date Alzheimer disease (HCC) HTN (hypertension) No past surgical history on file. No family history on file. Social History Tobacco Use Smoking status: Never Smokeless tobacco: Never EVALUATION Patient presents with: Established Patient 10/31/2022 Christiana Montero MD Last Visit on July 2022 Provider: Kylah Symptoms What is the severity of your symptoms?Noting more anxious / fear in evening - progressive. Noting more behavioral changes with ? Auditory. Noting no shift in medication / supplement. Noting no shift in behavioral medication Following the recommended food plan? 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 What symptoms have improved: none at this time Supplements Are you taking recommended supplements? Yes - holding due to NutrEval this PM Exercise Are you performing routine exercise at this time? No due to energy and weather. Sleep Habit How long are you sleeping for? Too many 10 to 12 hours. Noting 10 PM with awakening at 8 to 9 AM. With nap in afternoon Bowel Habits Do you have a daily bowel movement? Yes 07/25/2022 Christiana Montero MD Last Visit on March 2022 Provider Kvng Symptoms What is the severity of your symptoms? Noting short term memory declining along with awareness. Sundowning. Noting shift to Pristiq from lexapro with benefit less agitation. Sleeping majority of day in AM upon awakening and eating - total sleep 10 to 12 hours +. Following the recommended food plan? Mainly following keto at this time not measuring ketones in blood or urine. However, fruits at this time. What symptoms have improved: None Supplements Are you taking recommended supplements? Stopped mold detox - sent labs to [facility] (pending) - home testnig. Frustrated with report and not convinced hasissues. Exercise Are you performing routine exercise at this time? No for motivation / function - What kind of exercise? Walking when Sleep Habit How long are you sleeping for? 10 to 12 hours. Bowel Habits Do you have a daily bowel movement? Yes Number of movements? One - bowel daily. Quality of movements (loose / form / constipation) Weight Are you measuring your weight? Yes or No? What is your current weight? March 17, 2022 Evita Calderon MD Subjective: Having continual memory loss, short term memory loss is worse. Eating well, sleeping a lot 10 hrs per day, ( 10 pm, up 7:30 am, then back to bed after breakfast ) Exercise- still having issues with this. Walking was hard. Sits around, puzzle book, watch TV, rides likes this. November 30, 2021 Evita Calderon MD subjective: Pt did the [facility] mycotoxins. Sleeping 10-11 hrs a day, tired all the time, does not want to walk at all. Sometimes is confused about her . Does check the doors at night time. Review of Systems Constitutional: Positive for activity change and fatigue. Psychiatric/Behavioral: Positive for confusion, decreased concentration and sleep disturbance (excess). 10/31/22 1319 BP: 143/68 Pulse: 79 Temp: 36.6 C (97.8 F) SpO2: 97% Weight: 62.2 kg (137 lb 3.2 oz) Height: 157.5 cm (5' 2 ) Physical Exam Vitals reviewed. Constitutional: Appearance: Normal appearance. HENT: Head: Normocephalic and atraumatic. Right Ear: Hearing and external ear normal. Left Ear: Hearing and external ear normal. Eyes: General: Lids are normal. Extraocular Movements: Extraocular movements intact. Cardiovascular: Rate and Rhythm: Normal rate and regular rhythm. Pulmonary: Effort: Pulmonary effort is normal. Breath sounds: Normal breath sounds and air entry. Musculoskeletal: Cervical back: No pain with movement. Neurological: Mental Status: She is alert. Psychiatric: Mood and Affect: Mood normal. Speech: Speech normal. Behavior: Behavior normal. Thought Content: Thought content normal. Cognition and Memory: Cognition is impaired. Memory is impaired. Judgment: Judgment normal. 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 Await NutrEval. ? Need for better antioxidation pathways. 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 Fast eater, Significant other or family don't like healthy foods, Significant other or family have special dietary needs, Love to eat, Struggle with eating issues, Don't care to cook, Confused about nutrition advice Please describe Other special diets or nutrition program:Trying to lower sugar, gluten, and dairy Vit D 62.8 Maritza Nutreval Jun 2020 High Need: Mod Need: All B's Amino acids: Malabsorption markers: Bacterial dysbiosis markers: Fungal dysbiosis markers:arabinose 55 Toxin/detox markers: high [place]-3 Index: 4.3 Glutathione level:998 Lipid peroxides:8.5 Toxic elements: Lead 0.71 <= 2.81 mcg/dL Mercury 0.75 <= 4.35 mcg/L Arsenic 1.3 <= 13.7 mcg/L Cadmium 0.57 <= 1.22 mcg/L Tin 0.91 Digestive Function Daily T & A S/p Maureen Inflammation/Immune Function Yeast Infections-UTI's ASCVD High chol- crestor 40 mg x yrs Hypertension- good control Prediabetes A1 C 6.0 %--> 5.2 % Energy Production/Function: Fatigue, Weight issues-loss Cognitive decline/brain fog- Alzheimer's ( paranoia)- Nemenda made her dizzy. 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 - Great job in collection of urine). Resume ALL of your support at this time. You can take all of the supplements you started on prior to holding for NutrEval Consider shifting sleep schedule to that of the natural daylight exposure (Circadian) rhythm. Functional Nutrition: per gang drill press operator Review and implement diet factors recommended through nutritional visit - use your health high school football coach for discussion on how to implement Sleep: Sleep hygeine - no bright lights or phones/laptops/TV an hour before bed. Exercise Prescription: Continue your current exercise as tolerated. Supplement Support Review supplements - Based upon your labs and progress I may further recommend you consider these items to supplement. No orders of the defined types were placed in this encounter. Ordering Supplementation: We recommend ordering supplementation online from the [facility] wireLawyer Shop as they are high quality therapeutic supplements. Healthy Living Shop [facility] offers an easy to use, convenient way to order supplementation recommended by your provider through the [facility]. All of the products offered are considered high-quality, and adhere to specific criteria for quality and effectiveness including good manufacturing practices, use of clean products, free of fillers, binders, and other antigens. In addition, we follow third libertarian analysis for independent verification of active ingredients. Get started by following three easy steps: A. Visit the following webpage: https://The Noun Project.bitFlyer/ wireLawyer Shop Statements on this site have not been evaluated by the Food and Drug Administration. B. Create an account: Enter your first name, last name, email address which will be your username Create password Select a referring physician from the dropdown box. If they are not listed, select other If you are a new patient, enter the following provider code: functional C. Order recommended supplementation! Enter the supplement name in the search box Add all supplements to your cart and proceed to checkout. Orders of $100 or more qualify for free shipping. *Please allow 5-7 business days for delivery. For issues with your MRN please call [phone] Stress Management [employer] -new technology to use a wearable device to retrain brain and focus on nervous system reduction. To learn more of this technology by going to (mub-zef-blids) https://Medical Connections/ Please look into this Heart Rate Variability BioFeedback Tool (www.heartmath.org). You can see the research that has been put into this very valuable tool under the Resources and Research tabs. This can be used as an poncho on your smart phone.To use this technology will need to buy a sensor that plugs right into the phone for about $100. First, get one of the Heart Math booklets off Seen that fits your 'go to' emotion - Transforming Anger, Anxiety, Stress, Depression, or PTSD. Five minutes 3 times a day is more effective than 15 minutes in one sitting. A regular, daily meditation practice of at least 15-20 minutes will change your brain--as well as your genes! Preliminary studies demonstrate gene expression is modified in those who meditate regularly leading to down-regulation of pro-inflammatory genes. This results in reduced inflammation, as well as improvements in the body's response to stress via the hormone cortisol, in the intervention groups vs. the controls. Although more research is needed, these findings suggest a definite role for meditation in the treatment and prevention of chronic inflammatory conditions. Smart phone apps to begin a meditative practice: Headspace (free for first 10 days) Insight Meditation Timer- (Free)-Great all-around poncho to use for guided meditations of many different types and lengths or just to use as a tool to time and track your meditation practice. Calm- (Free) Walking Meditations-($1.99)- Get your walk AND meditation done together. A good way to start out for individuals who feel they just can't sit still to begin a meditative practice. Vagal Tone Look at the following work on harnessing the relaxation response by the following providers (you should look at one which appeals to you fully) . --- Polyvagal theory (Connor Ybarra) https://www.stephenporges.com/ --- Dynamic Neural Retraining System - (Ketty Christensen) https://retrainingthebrain.com/julieth horowitz-grace/ --- Frias Program - (John Frias) Https://www.[employer]/ Finding time for self (no multitasking) at this time to dedicate to breathing / relaxation process. Work on cultivating ted! Future Plans (for provider use): 1. GI Effects? 2. CAHUILLA Metals? I spent a total of 30 minutes on the date of the service which included preparing to see the patient, dmqq-mc-silh patient care, completing clinical documentation, obtaining and/or reviewing separately obtained history, performing a medically appropriate examination, counseling and educating the patient/family/caregiver, ordering medications, tests, or procedures, and communicating with other HCPs (not separately reported). Christiana Montero MD documented in this encounter [facility] 10-28-2022 Miscellaneous Notes Spoke with patient's regarding NE urine collection for Monday's lab appointment. Evelyn Flaherty LPN October 28, 2022 12:17 PM documented in this encounter [facility] 10-06-2022 Note PROCEDURE: XR HIP RT 2 3V WO PELVIS, XR FEMUR RT COMPARISON: None. HISTORY: Pain in right hip joint FINDINGS: BONES:No acute fracture or dislocation of the hip or femur. Mild to moderate degenerative changes of the hip joint with joint space narrowing and marginal osteophyte formation. SOFT TISSUES:Negative. No visible soft tissue swelling. EFFUSION:None visible. OTHER: Negative. IMPRESSION: No acute abnormality of the hip or femur Electronically authenticated by: ALEXIS CAAL Date: 2022-10-06 07:37 [facility] 10-06-2022 Note PROCEDURE: XR HIP RT 2 3V WO PELVIS, XR FEMUR RT COMPARISON: None. HISTORY: Pain in right hip joint FINDINGS: BONES:No acute fracture or dislocation of the hip or femur. Mild to moderate degenerative changes of the hip joint with joint space narrowing and marginal osteophyte formation. SOFT TISSUES:Negative. No visible soft tissue swelling. EFFUSION:None visible. OTHER: Negative. IMPRESSION: No acute abnormality of the hip or femur Electronically authenticated by: ALEXIS ACAL Date: 2022-10-06 07:37 [facility] 08-08-2022 Hospital Discharg e instructions Patient Education 08/08/2022 16:03:45 Urinary Tract Infection, Adult Urinary Tract Infection, Adult A urinary tract infection (UTI) is an infection of any part of the urinary tract. The urinary tract includes the kidneys, ureters, bladder, and urethra. These organs make, store, and get rid of urine in the body. Your health care provider may use other names to describe the infection. An upper UTI affects the ureters and kidneys (pyelonephritis). A lower UTI affects the bladder (cystitis) and urethra (urethritis). What are the causes? Most urinary tract infections are caused by bacteria in your genital area, around the entrance to your urinary tract (urethra). These bacteria grow and cause inflammation of your urinary tract. What increases the risk? You are more likely to develop this condition if: You have a urinary catheter that stays in place (indwelling). You are not able to control when you urinate or have a bowel movement (you have incontinence). You are female and you: ?Use a spermicide or diaphragm for control. ?Have low estrogen levels. ?Are . You have certain genes that increase your risk (genetics). You are sexually active. You take antibiotic medicines. You have a condition that causes your flow of urine to slow down, such as: ?An enlarged prostate, if you are male. ?Blockage in your urethra (stricture). ?A kidney stone. ?A nerve condition that affects your bladder control (neurogenic bladder). ?Not getting enough to drink, or not urinating often. You have certain medical conditions, such as: ?Diabetes. ?A weak disease-fighting system (immunesystem). ?Sickle cell disease. ?Gout. ?Spinal cord injury. What are the signs or symptoms? Symptoms of this condition include: Needing to urinate right away (urgently). Frequent urination or passing small amounts of urine frequently. Pain or burning with urination. Blood in the urine. Urine that smells bad or unusual. Trouble urinating. Cloudy urine. Vaginal discharge, if you are female. Pain in the abdomen or the lower back. You may also have: Vomiting or a decreased appetite. Confusion. Irritability or tiredness. A fever. Diarrhea. The first symptom in older adults may be confusion. In some cases, they may not have any symptoms until the infection has worsened. How is this diagnosed? This condition is diagnosed based on your medical history and a physical exam. You may also have other tests, including: Urine tests. Blood tests. Tests for sexually transmitted infections (STIs). If you have had more than one UTI, a cystoscopy or imaging studies may be done to determine the cause of the infections. How is this treated? Treatment for this condition includes: Antibiotic medicine. Vvcv-fxu-tyxkvwm medicines to treat discomfort. Drinking enough water to stay hydrated. If you have frequent infections or have other conditions such as a kidney stone, you may need to see a health care provider who specializes in the urinary tract (urologist). In rare cases, urinary tract infections can cause sepsis. Sepsis is a life-threatening condition that occurs when the body responds to an infection. Sepsis is treated in the hospital with IV antibiotics, fluids, and other medicines. Follow these instructions at home: Medicines Take dgfz-iyd-tghowfp and prescription medicines only as told by your health care provider. If you were prescribed an antibiotic medicine, take it as told by your health care provider. Do not stop using the antibiotic even if you start to feel better. General instructions Make sure you: ?Empty your bladder often and completely. Do not hold urine for long periods of time. ?Empty your bladder after sex. ?Wipe from front to back after a bowel movement if you are female. Use each tissue one time when you wipe. Drink enough fluid to keep your urine pale yellow. Keep all follow-up visits as told by your health care provider. This is important. Contact a health care provider if: Your symptoms do not get better after 1 2 days. Your symptoms go away and then return. Get help right away if you have: Severe pain in your back or your lower abdomen. A fever. Nausea or vomiting. Summary A urinary tract infection (UTI) is an infection of any part of the urinary tract, which includes the kidneys, ureters, bladder, and urethra. Most urinary tract infections are caused by bacteria in your genital area, around the entrance to your urinary tract (urethra). Treatment for this condition often includes antibiotic medicines. If you were prescribed an antibiotic medicine, take it as told by your health care provider. Do not stop using the antibiotic even if you start to feel better. Keep all follow-up visits as told by your health care provider. This is important. This information is not intended to replace advice given to you by your health care provider. Make sure you discuss any questions you have with your health care provider. Document Released: 07/05/2006 Document Revised: 09/12/2019 Document Reviewed: 04/04/2019 [employer] Patient Education 2020 Pulmocide. Follow Up Care 01/31/2022 15:18:00 With:GENO WATTS, Kunal Heller, URL Address: [facility] [address], [place] [address]- [phone] When:04/08/2023 [facility] Juanito 07-25-2022 Note HNO ID: [id number] Author: Christiana Montero MD Service: ? Author Type: Physician Type: Progress Notes Filed: 07/25/2022 12:50 PM Note Text: DISTANCE HEALTH VISIT This Team Access Model visit is a virtual encounter. It required patient-provider interaction for the medical decision making as documented below. FUNCTIONAL MEDICINE FOLLOW-UP ASSESSMENT Patient: Ann Marie Hill Patient presents with: Established Patient Memory Loss There is no height or weight on file to calculate BMI. RMR can't be calculated - Weight unrecorded in last 120 days. Waist measurement: No waist measurement recorded. BP: ALLERGIES Allergen Reactions Ciprofloxacin Unknown Penicillins Hives Sulfa (Sulfonamide * Rash Current Outpatient Medications on File Prior to Visit Medication Sig NAC 600mg (Pure Encapsulations) - liver support (helps make glutathione) 3 capsules, in divided doses, between meals Saccharomyces Boulardii (Klaire/Prothera) good yeast (FRIDGE) Take 2 capsules by mouth once daily. Take saccharomyces boullardi 2 hrs away from nystatin/candibactin/diflucan. Awup-Zmfl-CH ([place] PARC [place]) Take 1 capsule, 2 times daily with 4 oz or more of water. Glutathione (Spotify) - Liver support/detox Use 8 pumps daily , divided doses through out the day. (2 pumps = 100 mg Glutathione). Work up slowly to the higher dose. B-Complex Plus (Pure Encapsulations) Take 2 capsules by mouth daily with food. Multi t/d 60 ct. (Pure Encapsulations) - multivitamin Take 1 capsule by mouth twice daily with meals. OmegaGenics EPA-DHA 2400 (High Concentrate EPA/DHA liquid) (Beegit) Take one teaspoon (5 ml) 1 times daily with food UT Synergy (All Web Leads) antibacterial Take 1 capsule by mouth twice daily. Brain Misael Capsules (All Web Leads) Take 2 tablets by mouth w MEALS. Neuromag ( All Web Leads ) 90 ct Take 3 capsules per day or as directed by a healthcare professional. Osiris WILKINSON 1265 (Integrative Therapeutics) sleep/calming/anxiety 1 at bedtime - may also use 1 in AM for relaxation/anxiety coQ10, ubiquinol, 100 mg cap Take 1 capsule daily with a meal. escitalopram oxalate (LEXAPRO) 10 mg tablet Take 10 mg by mouth once daily. rosuvastatin (CRESTOR) 40 mg tablet Take 40 mg by mouth once daily. carvedilol (COREG) 12.5 mg tablet Take 12.5 mg by mouth twice daily. aspirin, enteric coated (ASPIRIN LOW DOSE) 81 mg EC tablet Take 81 mg by mouth once daily. cholecalciferol (VITAMIN D-3) 2,000 unit tablet Take 2,000 Units by mouth once daily. Ascorbic Acid (VITAMIN C) 1,000 mg TbER Take by mouth. amLODIPine (NORVASC) 5 mg tablet Take 1 tablet by mouth twice daily. No current facility-administered medications on file prior to visit. PAST MEDICAL HISTORY Diagnosis Date Alzheimer disease (HCC) HTN (hypertension) No past surgical history on file. No family history on file. Social History Tobacco Use Smoking status: Never Smokeless tobacco: Never EVALUATION 07/25/2022 Christiana Montero MD Last Visit on March 2022 Provider Kvng Symptoms What is the severity of your symptoms? Noting short term memory declining along with awareness. . Noting shift to Pristiq from lexapro with benefit less agitation. Sleeping majority of day in AM upon awakening and eating - total sleep 10 to 12 hours +. Following the recommended food plan? Mainly following keto at this time not measuring ketones in blood or urine. However, fruits at this time. What symptoms have improved: None Supplements Are you taking recommended supplements? Stopped mold detox - sent labs to [facility] (pending) - home testnig. Frustrated with report and not convinced hasissues. Exercise Are you performing routine exercise at this time? No for motivation / function - What kind of exercise? Walking when Sleep Habit How long are you sleeping for? 10 to 12 hours. Bowel Habits Do you have a daily bowel movement? Yes Number of movements? One - bowel daily. Quality of movements (loose / form / constipation) Weight Are you measuring your weight? Yes or No? What is your current weight? March 17, 2022 Evita Calderon MD Subjective: Having continual memory loss, short term memory loss is worse. Eating well, sleeping a lot 10 hrs per day, ( 10 pm, up 7:30 am, then back to bed after breakfast ) Exercise- still having issues with this. Walking was hard. Sits around, puzzle book, watch TV, rides likes this. November 30, 2021 Evita Calderon MD subjective: Pt did the [facility] mycotoxins. Sleeping 10-11 hrs a day, tired all the time, does not want to walk at all. Sometimes is confused about her . Does check the doors at night time. Review of Systems Constitutional: Positive for activity change and fatigue. Psychiatric/Behavioral: Positive for confusion, decreased concentration and sleep disturbance (excess). There were no vitals file (more content not included)... [facility] 07-25-2022 Instructions Christiana Montero MD - 07/25/2022 12:38 PM EDT FUNCTIONAL MEDICINE PLAN: Mold testing - will review in coming days your recent test to determine if binders are beneficial at this time. I may recommend use of binder (remove of mold) depending on testing. NutrEval - will send to your residence. ([employer] blood/urine kit to assess for nutritional stores)---> STOP all supplements (not medications) for 4 days - read the instructions! Avoid apples(and juice), grapes (and raisins, juice), and pears for at least 24 hrs before testing as it can influence your testing results of organic acids. Follow-up in 4 to 6 weeks Check labs in coming week for thyroid function, nutritional evaluation (can be drawn at same time as nutritional evaluation) . 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 No orders of the defined types were placed in this encounter. REMINDERS: Ordering Supplementation: We recommend ordering supplementation online from the [facility] Healthy Living Shop. It is felt these are high quality therapeutic supplements. Healthy Living Shop (https://store.Bon-Privé) [facility] offers an easy to use, convenient way to order supplementation recommended by your provider through the [facility]. All of the products offered are considered high-quality, and adhere to specific criteria for quality and effectiveness including good manufacturing practices, use of clean products, free of fillers, binders, and other antigens. In addition, we follow third libertarian analysis for independent verification of active ingredients. Get started by following three easy steps: A. Visit the webpage: https://The Noun Project.bitFlyer/ [employer] Statements on this site have not been evaluated by the Food and Drug Administration B. Create an account: Enter your first name, last name, email address which will be your username Create password Select a referring physician from the dropdown box. If they are not listed, select other If you are a new patient, enter the following provider code: functional C. Order recommended supplementation Enter the supplement name in the search box Add all supplements to your cart and proceed to checkout. Orders of $100 or more qualify for free shipping. *Please allow 5-7 business days for delivery. For issues with your MRN please call [phone] Stress Management [employer] -new technology to use a wearable device to retrain brain and focus on nervous system reduction. To learn more of this technology by going to (ehl-fvf-beyjj) https://Medical Connections/ Behavioral Health Therapist: If I recommended counseling or individual therapy, please schedule an individual appointment with our Functional Medicine Behavioral Health Therapist. The Behavioral Health Therapist helps patients identify and understand feelings and behaviors, experience the process of making positive change, and gain healthy coping skills. Deep, mindful breathing 10 minutes per day, no phone, no computer, no TV-alone and quiet. This is a prescription! Please look into this Heart Rate Variability BioFeedback Tool (www.heartmath.org). You can see the research that has been put into this very valuable tool under the Resources and Research tabs. This can be used as an poncho on your smart phone.To use this technology will need to buy a sensor that plugs right into the phone for about $100. First, get one of the Heart Math booklets off Seen that fits your 'go to' emotion - Transforming Anger, Anxiety, Stress, Depression, or PTSD. Five minutes 3 times a day is more effective than 15 minutes in one sitting. A regular, daily meditation practice of at least 15-20 minutes will change your brain--as well as your genes! Preliminary studies demonstrate gene expression is modified in those who meditate regularly leading to down-regulation of pro-inflammatory genes. This results in reduced inflammation, as well as improvements in the body's response to stress via the hormone cortisol, in the intervention groups vs. the controls. Although more research is needed, these findings suggest a definite role for meditation in the treatment and prevention of chronic inflammatory conditions. Smart phone apps to begin a meditative practice: BreathWrk - This is my absolute favorite at current time! We recognize breathing can improve body, mind and health. Controlling this with specific guided techniques can improve your mood, lower fatigue, improve sleep and reduce stress levels. Tapping - technique to reduce stress my focusing on energy from your body meridians. Consider finding videos on this Technique. Additional information can be gained by reading The Tapping Solution by Eduardo Gordon. (also has an poncho on [employer] / [email or web address].com) Insight Meditation Timer- (Free)-Great all-around poncho to use for guided meditations of many different types and lengths or just to use as a tool to time and track your meditation practice. Walking Meditations-($1.99)- Get your walk AND meditation done together. A good way to start out for individuals who feel they just can't sit still to begin a meditative practice. Vagal Tone - critical Look at the following work on harnessing the relaxation response by the following providers (you should look at one which appeals to you fully) . --- Polyvagal theory (Connorlala Ybarra) [email or web address] --- Dynamic Neural Retraining System - (Ketty Christensen) https://[email or web address].com/a lor-[email or web address] --- Frias Program - (John Frias) Https://www.[email or web address] [employer] Development.[employer]/ Finding time for yourself (no multitasking) at this time to dedicate to breathing / relaxation process. Work on cultivating ted! You deserve it! documented in this encounter [facility] 07-25-2022 History of Presen t illness Narrative DISTANCE HEALTH VISIT This Team Access Model visit is a virtual encounter. It required patient-provider interaction for the medical decision making as documented below. FUNCTIONAL MEDICINE FOLLOW-UP ASSESSMENT Patient: Ann Marie Hill Patient presents with: Established Patient Memory Loss There is no height or weight on file to calculate BMI. RMR can't be calculated - Weight unrecorded in last 120 days. Waist measurement: No waist measurement recorded. BP: ALLERGIES Allergen Reactions Ciprofloxacin Unknown Penicillins Hives Sulfa (Sulfonamide * Rash Current Outpatient Medications on File Prior to Visit Medication Sig NAC 600mg (Pure Encapsulations) - liver support (helps make glutathione) 3 capsules, in divided doses, between meals Saccharomyces Boulardii (Klaire/Prothera) good yeast (FRIDGE) Take 2 capsules by mouth once daily. Take saccharomyces boullardi 2 hrs away from nystatin/candibactin/diflucan. Qzto-Iswd-MV ([place] [employer] [place]) Take 1 capsule, 2 times daily with 4 oz or more of water. Glutathione (Spotify) - Liver support/detox Use 8 pumps daily , divided doses through out the day. (2 pumps = 100 mg Glutathione). Work up slowly to the higher dose. B-Complex Plus (Pure Encapsulations) Take 2 capsules by mouth daily with food. Multi t/d 60 ct. (Pure Encapsulations) - multivitamin Take 1 capsule by mouth twice daily with meals. OmegaGenics EPA-DHA 2400 (High Concentrate EPA/DHA liquid) (Beegit) Take one teaspoon (5 ml) 1 times daily with food UT Synergy (All Web Leads) antibacterial Take 1 capsule by mouth twice daily. Brain Misael Capsules (All Web Leads) Take 2 tablets by mouth w MEALS. Neuromag ( All Web Leads ) 90 ct Take 3 capsules per day or as directed by a healthcare professional. Osiris WS 1265 (Integrative Therapeutics) sleep/calming/anxiety 1 at bedtime - may also use 1 in AM for relaxation/anxiety coQ10, ubiquinol, 100 mg cap Take 1 capsule daily with a meal. escitalopram oxalate (LEXAPRO) 10 mg tablet Take 10 mg by mouth once daily. rosuvastatin (CRESTOR) 40 mg tablet Take 40 mg by mouth once daily. carvedilol (COREG) 12.5 mg tablet Take 12.5 mg by mouth twice daily. aspirin, enteric coated (ASPIRIN LOW DOSE) 81 mg EC tablet Take 81 mg by mouth once daily. cholecalciferol (VITAMIN D-3) 2,000 unit tablet Take 2,000 Units by mouth once daily. Ascorbic Acid (VITAMIN C) 1,000 mg TbER Take by mouth. amLODIPine (NORVASC) 5 mg tablet Take 1 tablet by mouth twice daily. No current facility-administered medications on file prior to visit. PAST MEDICAL HISTORY Diagnosis Date Alzheimer disease (HCC) HTN (hypertension) No past surgical history on file. No family history on file. Social History Tobacco Use Smoking status: Never Smokeless tobacco: Never EVALUATION 07/25/2022 Christiana Montero MD Last Visit on March 2022 Provider Kvng Symptoms What is the severity of your symptoms? Noting short term memory declining along with awareness. . Noting shift to Pristiq from lexapro with benefit less agitation. Sleeping majority of day in AM upon awakening and eating - total sleep 10 to 12 hours +. Following the recommended food plan? Mainly following keto at this time not measuring ketones in blood or urine. However, fruits at this time. What symptoms have improved: None Supplements Are you taking recommended supplements? Stopped mold detox - sent labs to [facility] (pending) - home testnig. Frustrated with report and not convinced hasissues. Exercise Are you performing routine exercise at this time? No for motivation / function - What kind of exercise? Walking when Sleep Habit How long are you sleeping for? 10 to 12 hours. Bowel Habits Do you have a daily bowel movement? Yes Number of movements? One - bowel daily. Quality of movements (loose / form / constipation) Weight Are you measuring your weight? Yes or No? What is your current weight? March 17, 2022 Evita Calderon MD Subjective: Having continual memory loss, short term memory loss is worse. Eating well, sleeping a lot 10 hrs per day, ( 10 pm, up 7:30 am, then back to bed after breakfast ) Exercise- still having issues with this. Walking was hard. Sits around, puzzle book, watch TV, rides likes this. November 30, 2021 Evita Calderon MD subjective: Pt did the [facility] mycotoxins. Sleeping 10-11 hrs a day, tired all the time, does not want to walk at all. Sometimes is confused about her . Does check the doors at night time. Review of Systems Constitutional: Positive for activity change and fatigue. Psychiatric/Behavioral: Positive for confusion, decreased concentration and sleep disturbance (excess). There were no vitals filed for this visit. Physical Exam Vitals reviewed. Constitutional: Appearance: Normal appearance. HENT: Head: Normocephalic and atraumatic. Right Ear: Hearing and external ear normal. Left Ear: Hearing and external ear normal. Eyes: General: Lids are normal. Extraocular Movements: Extraocular movements intact. Musculoskeletal: Cervical back: No pain with movement. Neurological: Mental Status: She is alert. Psychiatric: Attention and Perception: Attention and perception normal. Mood and Affect: Mood normal. Speech: Speech normal. Behavior: Behavior normal. Thought Content: Thought content normal. Cognition and Memory: Cognition is impaired. Memory is impaired. She exhibits impaired recent memory. Judgment: Judgment is impulsive. 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 Explained need for removal and burden toxins may have. Role of statin - ? ? Other toxin - ? Tick? ? Role of nutrition. ? Keto but not certain if this is being followed -= diet (limited with processing of foods) has enough variation to limit nutritional deficiencies. Check NutrEval. Recheck thyroid function - T4 in 2020 was not optimal. Noting low homocysteine in past. On tatin - hydrophilic with Crestor - ? Role at this time. Hold dosing. Consider brief trial away? FUNCTIONAL MEDICINE PLAN: Mold testing - will review in coming days your recent test to determine if binders are beneficial at this time. I may recommend use of binder (remove of mold) depending on testing. NutrEval - will send to your residence. ([employer] blood/urine kit to assess for nutritional stores)---> STOP all supplements (not medications) for 4 days - read the instructions! Avoid apples(and juice), grapes (and raisins, juice), and pears for at least 24 hrs before testing as it can influence your testing results of organic acids. Follow-up in 4 to 6 weeks Check labs in coming week for thyroid function, nutritional evaluation (can be drawn at same time as nutritional evaluation) . Functional Nutrition: Per Management Intern Review and implement diet factors recommended through nutritional visit - use your health high school football coach for discussion on how to implement Supplement Support Review supplements - maintain your B support at this time and Brain Misael only. Wait on Multivitamin until you have completed NutrEval for 2021. REMINDERS: Ordering Supplementation: We recommend ordering supplementation online from the [facility] [employer]. It is felt these are high quality therapeutic supplements. [employer] (https://The Noun Project.Bon-Privé) [facility] offers an easy to use, convenient way to order supplementation recommended by your provider through the [employer]. All of the products offered are considered high-quality, and adhere to specific criteria for quality and effectiveness including good manufacturing practices, use of clean products, free of fillers, binders, and other antigens. In addition, we follow third libertarian analysis for independent verification of active ingredients. Get started by following three easy steps: A. Visit the webpage: [email or web address] Noun Project.[email or web address]/ [employer] Statements on this site have not been evaluated by the Food and Drug Administration B. Create an account: Enter your first name, last name, email address which will be your username Create password Select a referring physician from the dropdown box. If they are not listed, select other If you are a new patient, enter the following provider code: functional C. Order recommended supplementation Enter the supplement name in the search box Add all supplements to your cart and proceed to checkout. Orders of $100 or more qualify for free shipping. *Please allow 5-7 business days for delivery. For issues with your MRN please call [phone] Stress Management ArthaYantra Neuro -new technology to use a wearable device to retrain brain and focus on nervous system reduction. To learn more of this technology by going to ([id number]) https://Medical Connections/ Behavioral Health Therapist: If I recommended counseling or individual therapy, please schedule an individual appointment with our Functional Medicine Behavioral Health Therapist. The Behavioral Health Therapist helps patients identify and understand feelings and behaviors, experience the process of making positive change, and gain healthy coping skills. Deep, mindful breathing 10 minutes per day, no phone, no computer, no TV-alone and quiet. This is a prescription! Please look into this Heart Rate Variability BioFeedback Tool (www.heartmath.org). You can see the research that has been put into this very valuable tool under the Resources and Research tabs. This can be used as an poncho on your smart phone.To use this technology will need to buy a sensor that plugs right into the phone for about $100. First, get one of the Heart Math booklets off Seen that fits your 'go to' emotion - Transforming Anger, Anxiety, Stress, Depression, or PTSD. Five minutes 3 times a day is more effective than 15 minutes in one sitting. A regular, daily meditation practice of at least 15-20 minutes will change your brain--as well as your genes! Preliminary studies demonstrate gene expression is modified in those who meditate regularly leading to down-regulation of pro-inflammatory genes. This results in reduced inflammation, as well as improvements in the body's response to stress via the hormone cortisol, in the intervention groups vs. the controls. Although more research is needed, these findings suggest a definite role for meditation in the treatment and prevention of chronic inflammatory conditions. Smart phone apps to begin a meditative practice: BreathWrk - This is my absolute favorite at current time! We recognize breathing can improve body, mind and health. Controlling this with specific guided techniques can improve your mood, lower fatigue, improve sleep and reduce stress levels. Tapping - technique to reduce stress my focusing on energy from your body meridians. Consider finding videos on this Technique. Additional information can be gained by reading The Tapping Solution by Eduardo Gordon. (also has an poncho on [employer] / [employer]) Insight Meditation Timer- (Free)-Great all-around poncho to use for guided meditations of many different types and lengths or just to use as a tool to time and track your meditation practice. Walking Meditations-($1.99)- Get your walk AND meditation done together. A good way to start out for individuals who feel they just can't sit still to begin a meditative practice. Vagal Tone - critical Look at the following work on harnessing the relaxation response by the following providers (you should look at one which appeals to you fully) . --- Polyvagal theory (Connor Ybarra) [email or web address] --- Dynamic Neural Retraining System - (Ketty Christensen) https://retrainingthebrain.com/a chioie-hopper/ --- Frias Program - (John Frias) Https://www.[employer]itechptaTPP [employer]/ Finding time for yourself (no multitasking) at this time to dedicate to breathing / relaxation process. Work on cultivating ted! You deserve it! I spent a total of 60 minutes on the date of the service which included preparing to see the patient, [id number] patient care, completing clinical documentation, obtaining and/or reviewing separately obtained history, counseling and educating the patient/family/caregiver, ordering medications, tests, or procedures, independently interpreting results (not separately reported), and communicating results to the patient/family/caregiver. Christiana Montero MD documented in this encounter [facility] 03-18-2022 Instructions Evita Calderon MD - 03/18/2022 1:36 PM EDT Plan and Lifestyle Prescription Plan/Instructions/Resources: 1. Restart the Brain Misael supplement. Continue Neuromag, omegagenics, ubiquinol Future add back the mvi, b complex, after the mold testing is back. 2. Mold testing at home. Repeat the urine in May/ Jun. Stop all the binders, nac 2 weeks before the urine testing. Do take the Glutathione twice daily for 7 days prior to the urine testing. 3. For UTI's- continue UT Synergy, make sure she is drinking water daily. 4. Send the mold house testing back to us here. 5. Daily activity is critical, singing, humming. Medications/Supplements Recommended: No orders of the defined types were placed in this encounter. I recommend the supplements from the [facility] [employer] Store at [email or web address] Noun Project.bitFlyer/ as we have thoroughly evaluated the research and use only highest quality supplements. Please use code: functional. Future Plans: Mold Memory Follow up: Please schedule a follow up visit with the following Caregivers: Provider: [address] Montero in person LIFESTYLE PRESCRIPTION Functional Nutrition: Per campaign advisor Sleep: Sleep goal for most adults is a minimum of 7-9 hours nightly. Exercise Prescription: Numerous studies confirm the benefits of regular moderate aerobic exercise (walking, swimming, elliptical machine, cycling, etc.) for 30 min 5 days per week (150 min goal). Stress Management: 1) Please look into this Heart Rate Variability BioFeedback Tool (www.heartmath.org). 2) A regular, daily meditation practice of at least 15-20 minutes will change your brain--as well as your genes! Behavioral Health Therapist: If I recommended counseling or individual therapy, please schedule an individual appointment with our Functional Medicine Behavioral Health Therapist after your visit today. The Behavioral Health Therapist helps patients identify and understand feelings and behaviors, experience the process of making positive change, and gain healthy coping skills. Health Coaching: Please consider scheduling with our [place] for Functional Medicine health coaches for a phone or virtual visit for accountability, goal setting and help with behavior policy change clerk the next 6-8 weeks to be successful with your goals. [phone]. Smart phone apps to begin a meditative practice: Headspace (free for first 10 days) Insight Meditation Timer- (Free)-Great all-around poncho to use for guided meditations of many different types and lengths or just to use as a tool to time and track your meditation practice. This is my absolute favorite! Calm- (Free) Walking Meditations-($1.99)- Get your walk AND meditation done together. A good way to start out for individuals who feel they just can't sit still to begin a meditative practice. During the next 6-8 weeks you'll be working on your diet plan discussed with our campaign advisor, allowing for gentle detoxification and decreasing inflammation - while we are gathering your lab results and combining those with your complete history to formulate a very personalized treatment plan. LAB results: Due to the complexity of the testing performed, we are not able to review labs via [employer] or over the phone, but please know, if any of your labs are critical we will contact you. Otherwise, we will review all your labs at your next visit. We will go over a lot of information during your follow up visit - so please be well-rested and you may want to bring someone with you, if possible. Also make sure to schedule with the campaign advisor (this will not happen automatically) as you did with your first visit so that she can review nutritional aspects of your treatment plan. By your 3rd visit, as things are improving, we will likely transition you to one of our very capable Certified Nurse Practitioners/Physician Assistants for further follow-up. Potential future labs: Any Maritza labs ordered take about 4 weeks to return. Do them as soon as possible so that we have the results before your next appointment. You can access them on the [employer] website and it can be beneficial if you review them prior to your next visit. [email or web address]. Read about NutrEval if this was ordered. documented in this encounter [facility] 03-18-2022 History of Presen t illness Narrative Follow-up Visit Patient: Ann Marie Hill 55.3 kg (122 lb) 157.5 cm (5' 2 ) Body mass index is 22.31 kg/m . Resting Metabolic Rate: 995 Waist measurement: No waist measurement recorded. BP: 107/52 ALLERGIES Allergen Reactions Ciprofloxacin Unknown Penicillins Hives Sulfa (Sulfonamide * Rash Current Outpatient Medications on File Prior to Visit Medication Sig NAC 600mg (Pure Encapsulations) - liver support (helps make glutathione) 3 capsules, in divided doses, between meals Saccharomyces Boulardii (Klaire/Prothera) good yeast (FRIDGE) Take 2 capsules by mouth once daily. Take saccharomyces boullardi 2 hrs away from nystatin/candibactin/diflucan. Dxyx-Jpoa-GY ([employer]) Take 1 capsule, 2 times daily with 4 oz or more of water. Glutathione (Spotify) - Liver support/detox Use 8 pumps daily , divided doses through out the day. (2 pumps = 100 mg Glutathione). Work up slowly to the higher dose. B-Complex Plus (Pure Encapsulations) Take 2 capsules by mouth daily with food. Multi t/d 60 ct. (Pure Encapsulations) - multivitamin Take 1 capsule by mouth twice daily with meals. OmegaGenics EPA-DHA 2400 (High Concentrate EPA/DHA liquid) (Beegit) Take one teaspoon (5 ml) 1 times daily with food UT Synergy (All Web Leads) antibacterial Take 1 capsule by mouth twice daily. Brain Misael Capsules (All Web Leads) Take 2 tablets by mouth w MEALS. Neuromag ( All Web Leads ) 90 ct Take 3 capsules per day or as directed by a healthcare professional. Osiris WS 1265 (Integrative Therapeutics) sleep/calming/anxiety 1 at bedtime - may also use 1 in AM for relaxation/anxiety coQ10, ubiquinol, 100 mg cap Take 1 capsule daily with a meal. escitalopram oxalate (LEXAPRO) 10 mg tablet Take 10 mg by mouth once daily. rosuvastatin (CRESTOR) 40 mg tablet Take 40 mg by mouth once daily. carvedilol (COREG) 12.5 mg tablet Take 12.5 mg by mouth twice daily. aspirin, enteric coated (ASPIRIN LOW DOSE) 81 mg EC tablet Take 81 mg by mouth once daily. cholecalciferol (VITAMIN D-3) 2,000 unit tablet Take 2,000 Units by mouth once daily. Ascorbic Acid (VITAMIN C) 1,000 mg TbER Take by mouth. amLODIPine (NORVASC) 5 mg tablet Take 1 tablet by mouth twice daily. No current facility-administered medications on file prior to visit. PAST MEDICAL HISTORY Diagnosis Date Alzheimer disease (HCC) HTN (hypertension) No past surgical history on file. Social History Tobacco Use Smoking status: Never Smoker Smokeless tobacco: Never Used Substance Use Topics Alcohol use: Not on file Drug use: Not on file Functional Medicine Timeline MSQ: Patient Entered Questionnaire PROMIS Scale T-Scores -- HIGHER SCORES BETTER PROMIS Global Health - (T-Scores - the mean of general population = 50. Five points is a clinically meaningful difference.) 11/30/2021 11/30/2021 03/15/2022 Physical T-Score 42.3 42.3 42.3 Mental T-Score 36.3 36.3 38.8 Depression Screening: PHQ-9 Self-Harm (Item 9) response options: 0 Not at all 1 Several days 2 More than half the days 3 Nearly every day PHQ-9 Levels: 0-4 Minimal depression 5-9 Mild depression 10-14 Moderate depression 15-19 Moderately severe depression 20-27 Severe depression March 17, 2022 Evita Calderon MD Subjective: Having continual memory loss, short term memory loss is worse. Eating well, sleeping a lot 10 hrs per day, ( 10 pm, up 7:30 am, then back to bed after breakfast ) Exercise- still having issues with this. Walking was hard. Sits around, puzzle book, watch TV, rides likes this. November 30, 2021 Evita Calderon MD subjective: Pt did the [facility] mycotoxins. Sleeping 10-11 hrs a day, tired all the time, does not want to walk at all. Sometimes is confused about her . Does check the doors at night time. Review of Systems: Memory Objective: BP 107/52 Pulse 70 Ht 5' 2 (1.58m) Wt 122 lb (55.3kg) BMI 22.31 kg/(m^2). Bioelectrical Impedance Analysis Results by [employer] Recent Results from: 03/18/22 at 13:34 PM BMI: 22.31 kg/m General Test Result Range Phase Angle (PA) Basal Metabolic Rate (BMR) Fat & Fat Free Mass Test Result Range Fat (lbs) Fat % Fat Free Mass (FFM) lbs Total Body Water Test Result Range TBW (lbs) TBW % of FFM Intracellular Water Test Result Range ICW (lbs) ICW % of FFM Extracellular Water Test Result Range ECW (lbs) ECW % of FFM Physical Exam: Physical Exam CURRENT Functional Medicine Assessment/ PLAN Underlying Causes: trauma, toxins, infection, nutritional insufficiencies or excessess, sleep Today's Focus: gut healing, detoxification, mitochondrial repair Supplements vitamin C 1000 mg Vitamin E 1000 mg vitamin B12 1000 mg vitamin D 50 mg 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 Fast eater, Significant other or family don't like healthy foods, Significant other or family have special dietary needs, Love to eat, Struggle with eating issues, Don't care to cook, Confused about nutrition advice Please describe Other special diets or nutrition program:Trying to lower sugar, gluten, and dairy Vit D 62.8 Marit[place] Nutreval Jun 2020 High Need: Mod Need: All B's Amino acids: Malabsorption markers: Bacterial dysbiosis markers: Fungal dysbiosis markers:arabinose 55 Toxin/detox markers: high [place]-3 Index: 4.3 Glutathione level:998 Lipid peroxides:8.5 Toxic elements: Lead 0.71 <= 2.81 mcg/dL Mercury 0.75 <= 4.35 mcg/L Arsenic 1.3 <= 13.7 mcg/L Cadmium 0.57 <= 1.22 mcg/L Tin 0.91 Digestive Function Daily T & A S/p Maureen Inflammation/Immune Function Yeast Infections-UTI's ASCVD High chol- crestor 40 mg x yrs Hypertension- good control Prediabetes A1 C 6.0 %--> 5.2 % Energy Production/Function: Fatigue, Weight issues-loss Cognitive decline/brain fog- Alzheimer's ( paranoia)- Nemenda made her dizzy. 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 Restart the Brain Misael supplement. Continue Neuromag, omegagenics, ubiquinol 2. Mold testing at home. Repeat the urine in May/ Jun. Stop all the binders, nac 2 weeks before the urine testing. Do take the Glutathione twice daily for 7 days prior to the urine testing. 3. For UTI's- continue UT Synergy, make sure she is drinking water daily. 4. Send the mold house testing back to us here. 5. Daily activity is critical, singing, humming. Medications/Supplements Recommended: No orders of the defined types were placed in this encounter. I recommend the supplements from the [facility] Online Store at https://store.bitFlyer/ as we have thoroughly evaluated the research and use only highest quality supplements. Please use code: functional. Future Plans: Follow up: Please schedule a follow up visit with the following Caregivers: Provider: [address] Montero in person LIFESTYLE PRESCRIPTION Functional Nutrition: Per campaign advisor Sleep: Sleep goal for most adults is a minimum of 7-9 hours nightly. Exercise Prescription: Numerous studies confirm the benefits of regular moderate aerobic exercise (walking, swimming, elliptical machine, cycling, etc.) for 30 min 5 days per week (150 min goal). Stress Management: 1) Please look into this Heart Rate Variability BioFeedback Tool (www.heartmath.org). 2) A regular, daily meditation practice of at least 15-20 minutes will change your brain--as well as your genes! Behavioral Health Therapist: If I recommended counseling or individual therapy, please schedule an individual appointment with our Functional Medicine Behavioral Health Therapist after your visit today. The Behavioral Health Therapist helps patients identify and understand feelings and behaviors, experience the process of making positive change, and gain healthy coping skills. Health Coaching: Please consider scheduling with our [place] [facility] health coaches for a phone or virtual visit for accountability, goal setting and help with behavior policy change clerk the next 6-8 weeks to be successful with your goals. [phone]. Smart phone apps to begin a meditative practice: Headspace (free for first 10 days) Insight Meditation Timer- (Free)-Great all-around poncho to use for guided meditations of many different types and lengths or just to use as a tool to time and track your meditation practice. This is my absolute favorite! Calm- (Free) Walking Meditations-($1.99)- Get your walk AND meditation done together. A good way to start out for individuals who feel they just can't sit still to begin a meditative practice. During the next 6-8 weeks you'll be working on your diet plan discussed with our campaign advisor, allowing for gentle detoxification and decreasing inflammation - while we are gathering your lab results and combining those with your complete history to formulate a very personalized treatment plan. LAB results: Due to the complexity of the testing performed, we are not able to review labs via [employer] or over the phone, but please know, if any of your labs are critical we will contact you. Otherwise, we will review all your labs at your next visit. We will go over a lot of information during your follow up visit - so please be well-rested and you may want to bring someone with you, if possible. Also make sure to schedule with the campaign advisor (this will not happen automatically) as you did with your first visit so that she can review nutritional aspects of your treatment plan. By your 3rd visit, as things are improving, we will likely transition you to one of our very capable Certified Nurse Practitioners/Physician Assistants for further follow-up. Potential future labs: Any Maritza labs ordered take about 4 weeks to return. Do them as soon as possible so that we have the results before your next appointment. You can access them on the [employer] website and it can be beneficial if you review them prior to your next visit. [email or web address]. Read about NutrEval if this was ordered. *Evita Calderon MD I spent a total of 30 minutes on the date of the service which included [id number] patient care, completing clinical documentation, obtaining and/or reviewing separately obtained history, performing a medically appropriate examination, counseling and educating the patient/family/caregiver and ordering medications, tests, or procedures. documented in this encounter [facility] 03-02-2022 Instructions EMMA Smalls - 03/02/2022 11:40 AM EDT Dear Mr. & Mrs. Hill, Our team had the pleasure of seeing you today at [facility]. We reviewed your evaluation of memory, mood and overall functioning. We discussed the testing we completed. We use a tool called the MOCA (Asim Cognitive Assessment). This is a brief tool to measure cognitive function. Ann Marie's score was 12/30. Normal range is 26/30. Our brief cognitive testing revealed inefficiency in visuospatial skills, planning tasks, attention, language, abstraction, delayed recall (short-term memory after 2 minutes), long-term memory and orientation. We discussed the outcome of our testing which showed there is some cognitive impairment that is severe enough to interfere with daily functioning. This is known as dementia. Dementia is not a disease itself but a group of symptoms which may accompany certain diseases. The most common form of dementia is Alzheimer's disease. The second most common cause is vascular dementia. There are many other causes of dementia such as: thyroid problems, vitamin deficiency which may be reversed. 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 We reviewed Ann Marie's previous MRI of the brain, which showed shrinkage in the memory center of the brain. The MRI also showed vascular changes. We discussed consideration of a clinical trial. If interested in more information, contact our office at [phone]. We are happy to hear that Orestes is assisting with medications, finances and driving. We recommended utilizing a Medical Alert System to increase safety in the home. In the event of a fall or an emergency, help is available at the push of a button. Some options for this are: Life Alert: Mobile Help: Medical Alert: Medical Guardian Insurance companies may offer their own medical alert system for a fee. Below are questions to ask when selecting a Medical Alert System: Do I need a home based or mobile system (used for active individuals)? Do I want a monitored (01/05 access to emergency team) or non-monitored (calls a friend or family member) system? Does the device offer fall detection? If so what is the cost? What is the activation fee? What is the monthly fee? What is the cost of the device? Is a contract required? Are there fees to cancel the service? Is the device water proof? Can it be worn in the shower? We discussed the MIND diet and have provided you with some additional information on this topic. We believe that Ann Marie may benefit from cognitive rehabilitation. This is a therapy that is designed to teach compensatory strategies and use organizational systems to improve day-to-day function. Below are providers located near your home: Sarah Morataya [facility]OLDER TRIMMER & Adriana Andrews [facility], [address]. ([phone]). When there is a diagnosis of dementia, no matter the type, we encourage families to educate themselves, learn communication tips, and learn ways to adjust expectations over time. There are many resources available online. Three excellent resources are: The Alzheimer's Association (web site: alz.org/corado) available 24 hours a day, 7 days per week. Contact: Local: ; Toll free: [phone] We recommend family explore the Alzheimer's Association website to learn more about managing behavioral symptoms. You can click on the following tabs to gather more information on managing specific behaviors. Click on HELP AND SUPPORT -> CAREGIVING -> STAGES AND BEHAVIOR Family Caregiver [place] (web site: Caregiver.org) [employer]-- a secure online solution for quality information, support, and resources for family caregivers. Contact: Toll-free number: [phone] Alzheimers.gov Find Alzheimer disease and related dementias information, resources, research and more We discussed the value of learning communication techniques when talking with someone who has memory loss to reduce stress and tension for both the patient and caregiver. The person with memory loss often feels as frustrated as their caregiver because their capacity to understand has changed. They believe they are asking a question for the first time, unaware that they have asked the same question several times before. It is helpful to avoid asking the patient questions. Do not attempt to reason, convince or rationalize. The caregiver can use distraction, redirection or reduce their reaction to the patient's perception that may conflict with reality. It is important to remain calm. Calm caregivers reduce the emotional response from the patient. It can be hard to answer repetitive questions, answer once, answer twice, the third time change the subject. If needed, change the room. We encourage Orestes to consider increasing support at home either through [facility] or another agency. If additional information is needed, please call our social media campaign manager EMMA Smalls at [phone]. As per our discussion of advanced directives, we understand you have these documents in place which is excellent. We have obtained a copy that will be scanned into your medical record. We would like you to return to [facility] for a follow up visit in 9-12 months. Our office can be reached by calling [phone] Option 1. Sincerely, MD Philomena Hampton RN Tangy Kirtz, [facility] EMMA Smalls documented in this encounter [facility] 03-02-2022 Nurse Note Ann Marie Hill is a 81 year old year old right handed woman Accompanied by: spouse. 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 Pt states that she is here for a check-up Vital Signs: BP 115/53 (BP Site: Left Arm, BP Position: Sitting, BP Cuff Size: Regular Adult) Pulse 75 Wt 56.6 kg (124 lb 12.8 oz) BMI 22.83 kg/m Philomena Mondragon RN documented in this encounter [facility] 03-02-2022 History of Presen t illness Narrative Reason for Consult: Alzheimer's dementia I had the pleasure of seeing this 81 year old year old female at the [facility]. The patient is referred by Evita Yinlid chris [place] [id number] Patient is accompanied by and information obtained from Spouse Orestes and available records in the system. Background and History of Present Illness: Pt was previously evaluated by neurology near their home in 2019 (Dr. Armand Tolbert) and diagnosed with Alzheimer's disease. MoCA score of 10/30 on 11/25/20 Today the spouse reports the following concerns: -Pt is sleeping more (sleeps 10-11 hours at night, naps during the day after breakfast for 1-2 hours). -Over the past year an increase in anxiety, the pt needs to check the locks repeatedly. -Pt sometimes confuses her spouse with her father -Over the past year the pt will ask how her parents are doing, she does not recall that they . -The pt will hide items in the home like the TV remote. -She is forgetful, she will put items in the wrong place. Spouse is here for information on management of dementia. He has expressed his goal to keep the pt at home for as long as possible. Symptoms Cognition Memory problems include short-term memory impairment, long-term memory impairment, rapid forgetting, repeating statements and questions and forgetting events. Impaired learning ability are not present. No impairment of word finding, verbal comprehension, or fluency. She loses items frequently. There is impaired planning. There are episodes of confusion. In daily life, she needs assistance with instrumental ADL s. Behavior Mood is described as anxious. Personality has changed-Increase in anxiety. She is sleeping more. Appetite is the same as usual. Behavioral aberrations: - delusions - spouse denies history of hallucinations - misidentification spouse with father Physical/Motor The patient has had normal balance. Gait is normal. She has no motor abnormalities. There is no incontinence. Functional Assessment Staging (FAST) 4=Decreased ability to perform complex tasks, e.g., planning dinner for guests, handling personal finances (such as forgetting to pay bills), difficulty marketing, etc. Onset and Progression: Memory changes since 2019 Previous and Current treatment: Namenda stopped due to dizziness; Spouse reports the pt briefly took Aricept prescribed by neurologist near their home (pt experienced fatigue). Currently taking Lexapro. Family History of Dementia: mother Mental Health: Forgetful, Anxious and Delusions Has a CT scan or MRI of the brain been done? Yes Social History: Marital Status: 60 years 4 children (son Fidel, dtr Christos are local; other two sons live in [place] and [place]). Housing: Lives with spouse Pt is occasionally left home alone if she is sleeping Agencies involved: Caregiver from [facility] visits once per week to stay with the pt while spouse runs errands. [employer] friends also assist. ADL'S: Independent with dressing, bathing (spouse gets the water ready, states pt could do this) and toileting. IADL's Driving: No longer driving, stopped 1 year ago, family felt this was best. Finances: Dependent Who does? spouse For how long? 3-4 years Medication Management: Dependent Fall: none Have you ever been told, or suspected yourself, that you seem to act out your dreams while asleep (for example, punching, flailing your arms in the air, making running movements, etc.)? 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 No Reviewed communication tips with spouse and how to address delusions. EMMA Smalls I have personally reviewed and verified the above information. PAST MEDICAL HISTORY Diagnosis Date Alzheimer disease (HCC) HTN (hypertension) ALLERGIES Allergen Reactions Ciprofloxacin Unknown Penicillins Hives Sulfa (Sulfonamide * Rash Current Outpatient Medications on File Prior to Visit Medication Sig NAC 600mg (Pure Encapsulations) - liver support (helps make glutathione) 3 capsules, in divided doses, between meals Saccharomyces Boulardii (Klaire/Prothera) good yeast (FRIDGE) Take 2 capsules by mouth once daily. Take saccharomyces boullardi 2 hrs away from nystatin/candibactin/diflucan. Gtcz-Ahzr-[id number] ([place] [employer] [place]) Take 1 capsule, 2 times daily with 4 oz or more of water. Glutathione (Spotify) - Liver support/detox Use 8 pumps daily , divided doses through out the day. (2 pumps = 100 mg Glutathione). Work up slowly to the higher dose. B-Complex Plus (Pure Encapsulations) Take 2 capsules by mouth daily with food. Multi t/d 60 ct. (Pure Encapsulations) - multivitamin Take 1 capsule by mouth twice daily with meals. OmegaGenics EPA-DHA 2400 (High Concentrate EPA/DHA liquid) (Beegit) Take one teaspoon (5 ml) 1 times daily with food UT Synergy (All Web Leads) antibacterial Take 1 capsule by mouth twice daily. Brain Misael Capsules (All Web Leads) Take 2 tablets by mouth w MEALS. Neuromag ( All Web Leads ) 90 ct Take 3 capsules per day or as directed by a healthcare professional. Osiris WS 1265 (Integrative Therapeutics) sleep/calming/anxiety 1 at bedtime - may also use 1 in AM for relaxation/anxiety coQ10, ubiquinol, 100 mg cap Take 1 capsule daily with a meal. escitalopram oxalate (LEXAPRO) 10 mg tablet Take 10 mg by mouth once daily. rosuvastatin (CRESTOR) 40 mg tablet Take 40 mg by mouth once daily. carvedilol (COREG) 12.5 mg tablet Take 12.5 mg by mouth twice daily. aspirin, enteric coated (ASPIRIN LOW DOSE) 81 mg EC tablet Take 81 mg by mouth once daily. cholecalciferol (VITAMIN D-3) 2,000 unit tablet Take 2,000 Units by mouth once daily. Ascorbic Acid (VITAMIN C) 1,000 mg TbER Take by mouth. amLODIPine (NORVASC) 5 mg tablet Take 1 tablet by mouth twice daily. No current facility-administered medications on file prior to visit. No family history on file. Social History Tobacco Use Smoking status: Never Smoker Smokeless tobacco: Never Used Substance Use Topics Alcohol use: Not on file Drug use: Not on file PHYSICAL EXAMINATION: BP 115/53 (BP Site: Left Arm, BP Position: Sitting, BP Cuff Size: Regular Adult) Pulse 75 Wt 56.6 kg (124 lb 12.8 oz) BMI 22.83 kg/m General appearance: Well appearing, alert, in no acute distress, well-hydrated, well nourished. Head: Normocephalic, no masses, lesions, tenderness or abnormalities Eyes: Anicteric sclera. Pupils are equally round and reactive to light. Extraocular movements are intact. Musculoskeletal: No joint swelling, deformity, or tenderness Neurological Exam Brief Neuropsychiatric Evaluation: Asim Cognitive Assessment (MoCA) Version 1 Total Score: 30 Visuospatial/Executive: 2/5 Namin/3 Attention: 5/6 Language: 0/3 Abstraction: 0/2 Delayed Recall: 0/5 Orientation: 1/6 Education less than or equal to 12th grade: +1 No Data Recorded (0-4) minimal depression, (5-9) mild depression, (10-14) moderate depression, (15-19) moderately severe depression, (20-27) severe depression Neurological Exam Cranial Nerves Visual hi intact. Pupils reactive. Extraocular movements conjugate and full. No ptosis. No nystagmus. Facial sensation intact. Face symmetric and strong. Palate and tongue normal. XI normal. Motor Examination and Coordination Motor examination with normal bulk, strength and tone. No drift. Normal rapid alternating movements and coordination. No adventitious movements or significant tremor. Gait Arises easily. Casual gait and Romberg are normal. Can rise on heels and toes. Step Height: normal Gait deviation: Unremarkable TSH (uU/mL) Date Value 03/11/2021 1.710 Most recent MRI/CT brain: 05/17/2021 * No evidence of an acute intracranial process or intracranial mass. * Mild generalized volume loss. * Temporal lobe volumes at the 1st percentile, hippocampal volumes at the ninth percentile, frontal lobe volume since the 22nd percentile, and whole brain volumes at the eighth percentile when compared to age matched normal controls by quantitative analysis. * Moderate white matter disease which is nonspecific but likely reflective of chronic microvascular ischemia. * No evidence of parenchymal microhemorrhages by MRI. Assessment and Recommendation: This is an 81 year old female who presented with memory problems. Brief cognitive testing revealed deficits in visuospatial skills, keeping track of when events have happened, retrieval of memories and words, attention and keeping track of information (working memory). Difficulty with IADL's, independant with ADL's helps with medications and transportation. 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 -Maintain current medication regimen -Speech therapy -Counseled on clinical trials -Counseled on meaning of test results, prognosis and benefit of medications -Counseled on safety and fall prevention -Lifeline -Regular physical exercise (30 minutes 5 days per week) -Follow up in 1 year. Prasanna Bird, MS3 TEACHING PHYSICIAN NOTE OF PERSONAL INVOLVEMENT IN CARE: I have personally seen and examined the patient and performed the medical decision-making components. I have reviewed the medical student documentation and verified the findings in the note as written. Any additions or changes are noted in bold/italics. I spent a total of 60 minutes on the date of service which included preparing to see the patient, [id number] patient care, performing a medically appropriate examination, completing clinical documentation, and on counseling/ eductaing the patient and the family. Han Britton MD documented in this encounter [facility] 01-31-2022 Hospital Discharg e instructions Patient Education 01/31/2022 15:02:02 Urethral Stricture Urethral Stricture Urethral stricture is narrowing of the tube (urethra) that carries urine from the bladder out of the body. The urethra can become narrow due to scar tissue from an injury or infection. This can make it difficult to pass urine. In women, the urethra opens above the vaginal opening. In men, the urethra opens at the tip of the penis, and the urethra is much longer than it is in women. Because of the length of the male urethra, urethral stricture is much more common in men. This condition is treated with surgery. What are the causes? In both men and women, common causes of urethral stricture include: Urinary tract infection (UTI). Sexually transmitted infection (STI). Use of a tube placed into the urethra to drain urine from the bladder (urinary catheter). Urinary tract surgery. In men, common causes of urethral stricture include: A severe injury to the pelvis. Prostate surgery. Injury to the penis. In many cases, the cause of urethral stricture is not known. What increases the risk? You are more likely to develop this condition if you: Are male. Men who have had prostate surgery are at risk of developing this condition. Use a urinary catheter. Have had urinary tract surgery. What are the signs or symptoms? The main symptom of this condition is difficulty passing urine. This may cause decreased urine flow, dribbling, or spraying of urine. Other symptom of this condition may include: Frequent UTIs. Blood in the urine. Pain when urinating. Swelling of the penis in men. Inability to pass urine (urinary obstruction). How is this diagnosed? This condition may be diagnosed based on: Your medical history and a physical exam. Urine tests to check for infection or bleeding. X-rays. Ultrasound. Retrograde urethrogram. This is a type of test in which dye is injected into the urethra and then an X-ray is taken. Urethroscopy. This is when a thin tube with a light and camera on the end (urethroscope) is used to look at the urethra. How is this treated? This condition is treated with surgery. The type of surgery that you have depends on the severity of your condition. You may have: Urethral dilation. In this procedure, the narrow part of the urethra is stretched open (dilated) with dilating instruments or a small balloon. Urethrotomy. In this procedure, a urethroscope is placed into the urethra, and the narrow part of the urethra is cut open with a surgical blade inserted through the urethroscope. Open surgery. In this procedure, an incision is made in the urethra, the narrow part is removed, and the urethra is reconstructed. Follow these instructions at home: Take [id number] and prescription medicines only as told by your health care provider. If you were prescribed an antibiotic medicine, take it as told by your health care provider. Do not stop taking the antibiotic even if you start to feel better. Drink enough fluid to keep your urine pale yellow. Keep all follow-up visits as told by your health care provider. This is important. Contact a health care provider if: You have signs of a urinary tract infection, such as: ?Frequent urination or passing small amounts of urine frequently. ?Needing to urinate urgently. ?Pain or burning with urination. ?Urine that smells bad or unusual. ?Cloudy urine. ?Pain in the lower abdomen or back. ?Trouble urinating. ?Blood in the urine. ?Vomiting or being less hungry than normal. ?Diarrhea or abdominal pain. ?Vaginal discharge, if you are female. Your symptoms are getting worse instead of better. Get help right away if: You cannot pass urine. You have a fever. You have swelling, bruising, or discoloration of your genital area. This includes the penis, scrotum, and inner thighs for men, and the outer genital organs (vulva) and inner thighs for women. You develop swelling in your legs. You have difficulty breathing. Summary Urethral stricture is narrowing of the tube (urethra) that carries urine from the bladder out of the body. The urethra can become narrow due to scar tissue from an injury or infection. This condition can make it difficult to pass urine. This condition is treated with surgery. The type of surgery that you have depends on the severity of your condition. Contact a health care provider if your symptoms get worse or you have signs of a urinary tract infection. This information is not intended to replace advice given to you by your health care provider. Make sure you discuss any questions you have with your health care provider. Document Released: 10/21/2016 Document Revised: 05/08/2019 Document Reviewed: 05/08/2019 [employer] Patient Education 2020 [employer]. Follow Up Care 08/02/2021 15:26:51 With:GENO WATTS, Kunal Heller, URL Address: [facility] [address] , [place] [address] [phone] When: Unknown [facility] Evaluation + Plan note Future Appointments Appointment Date:08/08/2022 02:45:00 PM Scheduled Provider:Kunal LORA MD Location:[facility] Appointment Type:URO Office Visit [facility] Evaluation + Plan note Future Appointments Appointment Date:08/10/2022 08:45:00 AM Scheduled Provider: Location:[facility] Appointment Type:URO Nurse Visit Appointment Date:04/17/2023 02:30:00 PM Scheduled Provider:Kunal LORA MD [facility] Appoint[facility] Type:URO Office Visit [facility] Evaluation + Plan note Future Appointments Appointment Date:04/17/2023 02:30:00 PM Scheduled Provider:Kunal LORA MD Location:[facility] Appointment Type:URO Office Visit [facility] Evaluation + Plan note Future Appointments Appointment Date:04/24/2023 02:15:00 PM Scheduled Provider:Kunal LORA MD Location:[facility] Appointment Type:URO Office Visit [facility] Evaluation note Diagnosis Cognitive communication deficit- Primary Alzheimer's dementia with behavioral disturbance, unspecified timing of dementia onset (HCC) documented in this encounter [facility] note* Diagnosis 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 documented in this encounter [facility] note* Diagnosis 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 Alzheimer's dementia with behavioral disturbance, unspecified timing of dementia onset documented in this encounter [facility] note* Diagnosis Memory change- Primary Memory loss Subclinical hypothyroidism Other specified acquired hypothyroidism Hypertension, unspecified type Hyperlipidemia, unspecified hyperlipidemia type 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 Impaired nutrient utilization Sleepiness Other alteration of consciousness Mold exposure Contact with and (suspected) exposure to mold On statin therapy On beta alexandria at home [facility] Diagnosis Memory change- Primary Memory loss Subclinical hypothyroidism Other specified acquired hypothyroidism 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 Impaired nutrient utilization 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) [facility] Diagnosis 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 Unspecified vitamin B deficiency Chemical exposure Contact with and (suspected) exposure to other potentially hazardous chemicals Poor diet Unspecified nutritional deficiency Impaired nutrient utilization [facility] Diagnosis 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 Unspecified vitamin B deficiency Poor diet Unspecified nutritional deficiency Dietary counseling and surveillance Dietary surveillance and counseling [facility] Diagnosis Memory change- Primary Memory loss Sundowning Reactive confusion Poor diet Unspecified nutritional deficiency Chemical exposure Contact with and (suspected) exposure to other potentially hazardous chemicals [facility] Diagnosis 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 Sundowning Reactive confusion Dietary counseling and surveillance Dietary surveillance and counseling [facility]* Diagnosis Carotid stenosis, bilateral Occlusion and stenosis of carotid artery without mention of cerebral infarction Benign hypertension Essential hypertension, benign documented in this encounter [facility] Work Phone: Evaluation note* Diagnosis Carotid stenosis, bilateral Occlusion and stenosis of carotid artery without mention of cerebral infarction Benign hypertension Essential hypertension, benign documented in this encounter [facility] Work Phone: History of Present illness Narrative* Patient is here for follow-up continue management reviewed the result of her recent stress test. Patient with history of hypertension, hyperlipidemia, PVCs and carotid disease. She recently was seen by her PCP. Apparently she reported some vague atypical chest discomfort or vague feeling in the chest of burning sensation. A stress test was performed. Her nuclear images were normal but she did have some nonspecific ST-T changes. There is no recent complaint of exertional chest pain, lightheadedness, dizziness or syncope but the patient is sedentary. Patient did have a stress test also in our office couple of years ago which was negative. * ASSESSMENT: * 1. Recent evaluation for very vague and atypical chest pain. Lexiscan myocardial perfusion study was negative for myocardial ischemia but did have nonspecific ST-T changes which is nonsignificant andfemale gender * 2. Hypertension, controlled * 3.. Hyperlipidemia, controlled * 4.. Documentation of premature ventricular contractions remotely felt to be benign, based on prior evaluation. * 5. Moderate bilateral carotid disease. Some carotid last year * 6.. Story of obesity but lost a lot of weight recently her BMI now is 21 * 7. Mild senile dementia * RECOMMENDATION: * 1. The patient was advised to remain on present medical regimen. I did review with her the results of her stress test and I recommended observant approach * 2. I will see her back in the office in 9-month * 3. Patient was counseled regarding diet and exercise and advised her not to lose anymore weight * 4. I reviewed with her her recent lab work -[facility] [address] DO Work Phone: History of Present illness Narrative* Here for follow- up continue management for previous evaluation for atypical chest pain, hypertension, hyperlipidemia and mild carotid disease. Since last time I saw her she denies change in cardiac status or symptoms. She does have dementia. Her describe increased sleepiness. Her family physician elected to reduce the dose of Coreg. Her recent laboratory data and previous carotid noted and reviewed with him. Patient appears stable cardiac ware. * ASSESSMENT: * 1. Prior evaluation for very vague and atypical chest pain. Lexiscan myocardial perfusion study wasnegative for myocardial ischemia but did have nonspecific ST-T changes which is nonsignificant and female gender. Appears stable * 2. Hypertension, controlled * 3.. Hyperlipidemia, controlled. Labs will be done through PCP * 4.. Documentation of premature ventricular contractions remotely felt to be benign, based on prior evaluation. * 5. Moderate bilateral carotid disease. Based on carotid in 2019 * 6..Mild senile dementia * 7. Increased fatigue and excessive sleepiness I suspect due to dementia and possibly her Lexapro * RECOMMENDATION: * 1. The patient was advised to remain on present medical regimen. I did review with her the results of her previous stress test and I recommended observant approach * 2. I will see her back in the office in 9-month. And I advised her she can wean off the dose of beta-alexandria gradually through her PCP if felt necessary * 3. Patient was counseled regarding diet and exercise and advised her not to lose anymore weight * 4. I advised her to notify me change in cardiac status or symptoms [facility] 250 DO Work Phone: History of Present illness Narrative* Patient is here for follow-up continue management for previous evaluation for vague chest pain, hypertension, hyperlipidemia and coronary disease. Her cardiac work-up was benign. Since last time I saw her she denies complaint of chest pain, palpitation, lightheadedness, dizziness or syncope. Familycontinues to be concerned about general decline of her cognitive function. She has been diagnosed with dementia. She was in the hospital 1 occasion with mental status changes. I was able to retrieve and review the record. * ASSESSMENT: * 1. Prior evaluation for very vague and atypical chest pain. Lexiscan myocardial perfusion study wasnegative for myocardial ischemia but did have nonspecific ST-T changes which is nonsignificant and female gender. Appears stable. She denies any recurrence * 2. Hypertension, controlled * 3.. Hyperlipidemia, we will try to retrieve her recent lab work * 4.. Documentation of premature ventricular contractions remotely felt to be benign, based on prior evaluation. * 5. Moderate bilateral carotid disease. Based on carotid in 2019 * 6..Mild senile dementia * RECOMMENDATION: * 1. The patient was advised to remain on present medical regimen. I did review with her the results of her previous stress test and I recommended observant approach * 2. I will see her back in the office in 1 year and plan to repeat her carotid Doppler prior to nextyear * 3. Patient was counseled regarding diet and exercise and advised her not to lose anymore weight * 4. I advised her to notify me change in cardiac status or symptoms * 5. We will try to retrieve her recent lab work [facility] 250 DO Work Phone: Hospital course Narrative No data available for this section [facility] Hospital Discharge instructions No data available for this section [facility] progress note No data available for this section [facility] Summary Purpose Family History No Family History Records FoundUnknown Family Member Name Dates Details Family history of congestive heart failure: Mother(V17.49, Z82.49) Comments: age 91; Status:Active Family history of hypertensi on: Mother, Brother(V17.49, Z82.49) Status:Active Unknown Family Member Name Dates Details Family history of congestive heart failure: Mother(V17.49, Z82.49) Comments: age 91; Status:Active Family history of hypertensi on: Mother, Brother(V17.49, Z82.49) Status:Active Unknown Family Member Name Dates Details Family history of congestive heart failure: Mother(V17.49, Z82.49) Comments: age 91; Status:Active Family history of hypertensi on: Mother, Brother(V17.49, Z82.49) Status:Active Unknown Family Member Name Dates Details Family history of congestive heart failure: Mother(V17.49, Z82.49) Comments: age 91; Status:Active Family history of hypertensi on: Mother, Brother(V17.49, Z82.49) Status:Active Unknown Family Member Name Dates Details Family history of congestive heart failure: Mother(V17.49, Z82.49) Comments: age 91; Status:Active Family history of hypertensi on: Mother, Brother(V17.49, Z82.49) Status:Active Advance Directives No Advanced Directives Records FoundDocuments on File Type Date Recorded 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 Reason for Referral Specialty Diagnoses / Procedures Referred By Toña cedillo Referred To Contact Cardiology Diagnoses Carotid stenosis, bilateral Benign hypertension Procedures Vascular US carotid artery duplex bilateral Mary Anne Snow MD [address] [address] Referral ID Status Reason Start Date Expiration Date Visits Requested Visits Authorized [id number] Authorized Perform Procedure 06/25/2023 12/22/2023 1 1 Specialty Diagnoses / Procedures Referred By Contac t Referred To Contact Psychiatry / ADULT PSYCHIATRY Diagnoses Alzheimer's dementia with behavioral disturbance, unspecified timing of dementia onset Procedures CONSULT TO PSYCHIATRY OFFICE/OUTPATIENT [facility] 60-74 MINUTES Evita Calderon MD [address] [place] [address] Hemal Hopper MD [address] [place] [address] Referral ID Status Reason Start Date Expiration Date Visits Requested Visits Authorized [id number] Pending Review PCP Requested Referral 06/17/2022 06/17/2023 1 1 Specialty Diagnoses / Procedures Referred By Contac t Referred To Contact [facility] Diagnoses Cognitive communication deficit Procedures CONSULT TO SPEECH THERAPY OFFICE/OUTPATIENT [facility] 60-74 MINUTES Han Britton MD [address] [place] [address] [facility] [place] [address] Referral ID Status Reason Start Date Expiration Date Visits Requested Visits Authorized [id number] Pending Review Auto-Generat ed Referral 03/02/2022 03/02/2023 1 1 Additional Source Comments INFORMATION SOURCE (unrecogn ized section and content) DATE CREATED AUTHOR 04/03/2018 [facility] DATE CREATED AUTHOR AUTHOR'S ORGANIZ ATION 06/25/2020 [facility] DATE CREATED AUTHOR AUTHOR'S ORGANIZ ATION 11/07/2022 [facility] DATE CREATED AUTHOR AUTHOR'S ORGANIZ ATION 05/22/2023 [facility] DATE CREATED AUTHOR AUTHOR'S ORGANIZ ATION 06/07/2023 [facility] ical Center DATE CREATED AUTHOR AUTHOR'S ORGANIZ ATION 06/07/2023 [facility] DATE CREATED AUTHOR AUTHOR'S ORGANIZ ATION 07/23/2023 [facility] ical Center DATE CREATED AUTHOR AUTHOR'S ORGANIZ ATION 09/22/2023 [facility] EPIC Source Comments (unrecognize d section and content) In the event this informatio n is protected by the Federal Confidentiality of Alcohol and Drug Abuse Patient Records regulations: The Federal rules restrict any use of the information to criminally investigate or prosecute any alcohol or drug abuse patient.[facility] the event this information is protected by the Federal Confidentiality of Alcohol and Drug Abuse Patient Records regulations: The Federal rules restrict any use of the information to criminally investigate or prosecute any alcohol or drug abuse patient.[facility] the event this information is protected by the Federal Confidentiality of Alcohol and Drug Abuse Patient Records regulations: The Federal rules restrict any use of the information to criminally investigate or prosecute any alcohol or drug abuse patient.[facility] Memorial[facility] the event this information is protected by the Federal Confidentiality of Alcohol and Drug Abuse Patient Records regulations: The Federal rules restrict any use of the information to criminally investigate or prosecute any alcohol or drug abuse patient.[facility] the event this information is protected by the Federal Confidentiality of Alcohol and Drug Abuse Patient Records regulations: The Federal rules restrict any use of the information to criminally investigate or prosecute any alcohol or drug abuse patient.[facility] the event this information is protected by the Federal Confidentiality of Alcohol and Drug Abuse Patient Records regulations: The Federal rules restrict any use of the information to criminally investigate or prosecute any alcohol or drug abuse patient.[facility] Memorial[facility] the event this information is protected by the Federal Confidentiality of Alcohol and Drug Abuse Patient Records regulations: The Federal rules restrict any use of the information to criminally investigate or prosecute any alcohol or drug abuse patient.[facility] the event this information is protected by the Federal Confidentiality of Alcohol and Drug Abuse Patient Records regulations: The Federal rules restrict any use of the information to criminally investigate or prosecute any alcohol or drug abuse patient.[facility] Memorial[facility] the event this information is protected by the Federal Confidentiality of Alcohol and Drug Abuse Patient Records regulations: The Federal rules restrict any use of the information to criminally investigate or prosecute any alcohol or drug abuse patient.[facility] Memorial[facility] the event this information is protected by the Federal Confidentiality of Alcohol and Drug Abuse Patient Records regulations: The Federal rules restrict any use of the information to criminally investigate or prosecute any alcohol or drug abuse patient.[facility] Memorial[facility] the event this information is protected by the Federal Confidentiality of Alcohol and Drug Abuse Patient Records regulations: The Federal rules restrict any use of the information to criminally investigate or prosecute any alcohol or drug abuse patient.[facility] Memorial[facility] the event this information is protected by the Federal Confidentiality of Alcohol and Drug Abuse Patient Records regulations: The Federal rules restrict any use of the information to criminally investigate or prosecute any alcohol or drug abuse patient.[facility] Memorial[facility] the event this information is protected by the Federal Confidentiality of Alcohol and Drug Abuse Patient Records regulations: The Federal rules restrict any use of the information to criminally investigate or prosecute any alcohol or drug abuse patient.[facility] Memorial[facility] the event this information is protected by the Federal Confidentiality of Alcohol and Drug Abuse Patient Records regulations: The Federal rules restrict any use of the information to criminally investigate or prosecute any alcohol or drug abuse patient.[facility] Memorial[facility] the event this information is protected by the Federal Confidentiality of Alcohol and Drug Abuse Patient Records regulations: The Federal rules restrict any use of the information to criminally investigate or prosecute any alcohol or drug abuse patient.[facility] Memorial[facility] the event this information is protected by the Federal Confidentiality of Alcohol and Drug Abuse Patient Records regulations: The Federal rules restrict any use of the information to criminally investigate or prosecute any alcohol or drug abuse patient.[facility] Memorial[facility] the event this information is protected by the Federal Confidentiality of Alcohol and Drug Abuse Patient Records regulations: The Federal rules restrict any use of the information to criminally investigate or prosecute any alcohol or drug abuse patient.[facility] Memorial[facility] the event this information is protected by the Federal Confidentiality of Alcohol and Drug Abuse Patient Records regulations: The Federal rules restrict any use of the information to criminally investigate or prosecute any alcohol or drug abuse patient.[facility] Care Teams (unrecognized sec tion and content) Transmission Mechanic Relationship Specialty Start Date End Date Meng Prater MD [address] [place] [id number] PCP - General Family Practice 07/15/20 Transmission Mechanic Relationship Specialty Start Date End Date Meng Prater MD [address] [place] [address] PCP - General Family Practice 07/15/20 Transmission Mechanic Relationship Specialty Start Date End Date Meng Prater MD [address] [place] [address] PCP - General Family Practice 07/15/20 Transmission Mechanic Relationship Specialty Start Date End Date Meng Prater MD [address] [place] [address] PCP - General Family Practice 07/15/20 Transmission Mechanic Relationship Specialty Start Date End Date Meng Prater MD [address] [place] [id number] PCP - General Family Medicine 07/15/20 Transmission Mechanic Relationship Specialty Start Date End Date Meng Prater MD [address] [place] [address] PCP - General Family Medicine 07/15/20 Transmission Mechanic Relationship Specialty Start Date End Date Meng Prater MD [address] [place] [id number] PCP - General Family Medicine 07/15/20 Transmission Mechanic Relationship Specialty Start Date End Date Meng Prater MD [address] [place] [address] PCP - General Family Medicine 07/15/20 Transmission Mechanic Relationship Specialty Start Date End Date Meng Prater MD [address] [place] [id number] PCP - General Family Medicine 07/15/20 Transmission Mechanic Relationship Specialty Start Date End Date Meng Prater MD PCP - General Family Medicine 07/15/20 Transmission Mechanic Relationship Specialty Start Date End Date Meng Prater MD PCP - General Family Medicine 07/15/20 Transmission Mechanic Relationship Specialty Start Date End Date Meng Prater MD PCP - General Family Medicine 07/15/20 Transmission Mechanic Relationship Specialty Start Date End Date Meng Prater MD PCP - General Family Medicine 07/15/20 Transmission Mechanic Relationship Specialty Start Date End Date Meng Prater MD PCP - General Family Medicine 07/15/20 Transmission Mechanic Relationship Specialty Start Date End Date Meng Prater MD PCP - General Family Medicine 07/15/20 Transmission Mechanic Relationship Specialty Start Date End Date Meng Prater MD PCP - General [facility] Medicine 07/15/20 Transmission Mechanic Relationship Specialty Start Date End Date Meng rPater MD [address] [place] [address] PCP - General 09/11/19 Transmission Mechanic Relationship Specialty Start Date End Date Meng Prater MD [address] [place] [address] PCP - General 09/11/19 Reason for Visit (unrecogniz ed section and content) Reason Comments New Patient Evaluation Specialty Diagnoses / Procedures Referred By Contac t Referred To Contact Neurology / NEUROLOGY Diagnoses Alzheimer's dementia with behavioral disturbance, unspecified timing of dementia onset (HCC) Procedures CONSULT TO NEUROLOGY NEW PATIENT VISIT LEVEL 5 Evita Calderon MD [address] [place] [address] Neur [facility] [address] [place] [address] Referral ID Status Reason Start Date Expiration Date Visits Requested Visits Authorized [id number] Pending Review PCP Requested Referral 04/01/2021 04/01/2022 1 1 Reason Comments Established Patient Reason Comments Established Patient Memory Loss New Patient Reason Comments Patient Question Reason Comments Appointment Specialty Diagnoses / Procedures Referred By Contcorina t Referred To Contact Cardiology Diagnoses Carotid stenosis, bilateral Benign hypertension Procedures Vascular US carotid artery duplex bilateral Mary Anne Snow MD [address] [facility] 2, [address] [address] Referral ID Status Reason Start Date Expiration Date Visits Requested Visits Authorized [id number] Authorized Perform Procedure 06/25/2023 12/22/2023 1 1 FOR RECORDS PERTAINING TO PATIENTS WHO ARE OR HAVE BEEN ENROLLED IN A CHEMICAL DEPENDENCY/SUBSTANCEABUSE PROGRAM, SOME INFORMATION MAY BE OMITTED. This clinical summary was aggregated from multiple sources. Caution should be exercised in using it in the provision of clinical care. This summary normalizes information from multiple sources, and as a consequence, information in this document may materially change the coding, format and clinical context of patient data. In addition, data may be omitted in some cases. CLINICAL DECISIONS SHOULD BE BASED ON THE PRIMARY CLINICAL RECORDS. [facility]. provides no warranty or guarantee of the accuracy or completeness of information in this document.
--- NOTE | 2023-10-07 18:05 | XR_ITS ---
[address] [address] Patient Name: ROBERTO HILL MRN: [id number] date: 1940 Sex: F Assigned Patient Location: ER Current Patient Location: ED.MAIN Accession/Order Number: [id number] Exam Date: 10/07/2023 18:40 Report Date: 10/07/2023 19:47 At the request of: JAMARI BAILEY Procedure: XR chest 1V EXAM: XR chest 1V TECHNIQUE: Single AP view chest HISTORY: Fall COMPARISON: None. FINDINGS: The heart and mediastinum are unremarkable. Patchy airspace opacity left base. Biapical pleural scarring. Calcific granuloma laterally in the right lower lung field. Degenerative changes of the thoracic spine. XR/XR chest 1V IMPRESSION: Patchy airspace opacity left base represent atelectasis and/or pneumonia. Electronically authenticated by: OMAIRA COLÓN Date: 10/07/2023 19:47
--- NOTE | 2023-10-07 18:05 | CT_ITS ---
[address] [address] Patient Name: ROBERTO HILL MRN: [id number] date: 1940 Sex: F Assigned Patient Location: ER Current Patient Location: Accession/Order Number: [id number] Exam Date: 10/07/2023 18:55 Report Date: 10/07/2023 19:52 At the request of: JAMARI BAILEY Procedure: CT cervical spine wo con EXAMINATION: CT cervical spine wo con, CT head/brain wo con TECHNIQUE: Axial CT images were obtained through the brain. Sagittal and coronal reformatted images were also obtained. Axial CT images were obtained through the cervical spine. Sagittal and coronal reformatted images were also obtained. Dose reduction techniques were achieved by using automated exposure control and/or adjustment of mA and/or kV according to patient size and/or use of iterative reconstruction technique. HISTORY: fall COMPARISON: 02/27/2023 FINDINGS: BRAIN: Evaluation limited by motion artifact. Intracranial Bleed: No evidence for acute intracranial bleed. Intracranial Mass: No evidence for mass lesion. No mass effect or midline shift. Extra-axial spaces: The ventricular system is normal caliber. White/Cintron Matter: No acute cortical infarct. Moderate chronic white matter small vessel ischemic change. Skull/Scalp: No evidence for skull fracture or lesion. Orbits and sinuses: The orbits appear unremarkable. The visualized paranasal sinuses are clear. CERVICAL SPINE: Vertebrae: No fracture Alignment: The alignment is anatomic. No acute subluxation. Arthritic changes: Mild spondylosis of the lower cervical spine. Disc spaces: No gross disc herniation given limitation of CT scan. Soft tissues: No soft tissue mass or large hematoma. CT/CT cervical spine wo con IMPRESSION: No acute intracranial pathology. No acute fracture or subluxation of the cervical spine. Electronically authenticated by: OMAIRA COLÓN Date: 10/07/2023 19:52
--- NOTE | 2023-10-07 18:05 | XR_ITS ---
[address] [address] Patient Name: ROBERTO HILL MRN: [id number] date: 1940 Sex: F Assigned Patient Location: ER Current Patient Location: Accession/Order Number: [id number] Exam Date: 10/07/2023 18:40 Report Date: 10/07/2023 19:53 At the request of: JAMARI BAILEY Procedure: XR pelvis 1-2V EXAM: XR pelvis 1-2V TECHNIQUE: Single view pelvis HISTORY: fall COMPARISON: None. FINDINGS: No fracture or dislocation. Soft tissues are unremarkable. Mild degenerative changes of both hips. Degenerative changes of the lower lumbar spine. XR/XR pelvis 1-2V IMPRESSION: No fracture. Electronically authenticated by: OMAIRA COLÓN Date: 10/07/2023 19:53
--- NOTE | 2023-10-07 18:05 | ECG_ITS ---
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
--- NOTE | 2023-10-07 18:06 | CT_ITS ---
[address] [address] Patient Name: ROBERTO HILL MRN: [id number] date: 1940 Sex: F Assigned Patient Location: ER Current Patient Location: Accession/Order Number: [id number] Exam Date: 10/07/2023 18:55 Report Date: 10/07/2023 19:52 At the request of: JAMARI BAILEY Procedure: CT head/brain wo con EXAMINATION: CT cervical spine wo con, CT head/brain wo con TECHNIQUE: Axial CT images were obtained through the brain. Sagittal and coronal reformatted images were also obtained. Axial CT images were obtained through the cervical spine. Sagittal and coronal reformatted images were also obtained. Dose reduction techniques were achieved by using automated exposure control and/or adjustment of mA and/or kV according to patient size and/or use of iterative reconstruction technique. HISTORY: fall COMPARISON: 02/27/2023 FINDINGS: BRAIN: Evaluation limited by motion artifact. Intracranial Bleed: No evidence for acute intracranial bleed. Intracranial Mass: No evidence for mass lesion. No mass effect or midline shift. Extra-axial spaces: The ventricular system is normal caliber. White/[place] Matter: No acute cortical infarct. Moderate chronic white matter small vessel ischemic change. Skull/Scalp: No evidence for skull fracture or lesion. Orbits and sinuses: The orbits appear unremarkable. The visualized paranasal sinuses are clear. CERVICAL SPINE: Vertebrae: No fracture Alignment: The alignment is anatomic. No acute subluxation. Arthritic changes: Mild spondylosis of the lower cervical spine. Disc spaces: No gross disc herniation given limitation of CT scan. Soft tissues: No soft tissue mass or large hematoma. CT/CT head/brain wo con IMPRESSION: No acute intracranial pathology. No acute fracture or subluxation of the cervical spine. Electronically authenticated by: OMAIRA COLÓN Date: 10/07/2023 19:52
[2023-10-07 18:13] VITALS: BP 132/70
[2023-10-07 18:17] VITALS: PULSE 77
--- NOTE | 2023-10-07 18:24 | XR_ITS ---
The [address] [address] Patient Name: ROBERTO HILL MRN: [id number] date: 1940 Sex: F Assigned Patient Location: ER Current Patient Location: ER Accession/Order Number: [id number] Exam Date: 10/07/2023 18:40 Report Date: 10/07/2023 19:54 At the request of: JAMARI BAILEY Procedure: XR humerus LT EXAM: XR humerus LT TECHNIQUE: AP and lateral views left humerus HISTORY: fall COMPARISON: None. FINDINGS: No fracture or dislocation. Soft tissues are unremarkable. No arthritic changes. XR/XR humerus LT IMPRESSION: No fracture Electronically authenticated by: OMAIRA COLÓN Date: 10/07/2023 19:54
[2023-10-07 18:28] VITALS: PULSE 79; RESP 16
[2023-10-07 18:37] LABS: Basophils Percent Auto 0.3 % (0.2-2.0); Eosinophils Absolute Auto 0.3 10^3/uL (0.0-0.7); Eosinophils Percent Auto 2.5 % (0.9-7.0); Hematocrit 41.7 % (36.0-48.0); Hemoglobin 13.3 g/dL (12.0-16.0); Immature Granulocytes Abs Auto 0.03 10^3/uL (0.00-0.03); Immature Granulocytes Pct Auto 0.3 % (0.0-0.5); Lymphocytes Absolute Auto 1.5 10^3/uL (1.2-3.8); Lymphocytes Percent Auto 14.8 % (20.5-60.0); Mean Corpuscular HGB Conc 31.9 g/dL (29.9-35.2); Mean Corpuscular Hemoglobin 31.1 pg (26.7-34.0); Mean Corpuscular Volume 97.7 fL (81.0-99.0); Mean Platelet Volume 8.7 fL (9.5-13.5); Monocytes Absolute Auto 0.8 10^3/uL (0.3-0.8); Monocytes Percent Auto 7.8 % (1.7-12.0); Neutrophils Absolute Auto 7.4 10^3/uL (1.4-6.5); Neutrophils Percent Auto 74.3 % (43.0-75.0); Platelet Count 292 10^3/uL (150-450); Red Blood Count 4.27 10^6/uL (4.20-5.40)
[2023-10-07 18:48] LABS: Prothrombin Time 9.8 sec (9.0-11.6)
[2023-10-07 18:49] LABS: INR <0.93
[2023-10-07 18:51] LABS: Alanine Aminotransferase 51 U/L (14-59); Albumin Globulin Ratio 0.7; Albumin Level 3.2 g/dL (3.4-5.0); Alkaline Phosphatase 85 U/L (46-116); Aspartate Amino Transferase 30 U/L (15-37); Bilirubin Total 0.3 mg/dL (0.2-1.0); Calcium 9.4 mg/dL (8.5-10.1); Carbon Dioxide 28.4 mmol/L (21.0-32.0); Chloride 105 mmol/L (98-107); Estimated GFR (African America 50 (>=60); Estimated GFR (Non-African Ame 41 (>=60); Globulin 4.3 g/dL; Glucose 121 mg/dL (74-106); Potassium 3.4 mmol/L (3.5-5.1); Sodium 140 mmol/L (136-145); Total Protein 7.5 g/dL (6.4-8.2)
[2023-10-07 18:52] LABS: Troponin I High Sensitivity 8.8 pg/mL (4.0-51.3)
--- NOTE | 2023-10-07 20:01 | ED.FALL1 ---
HPI - Fall General Chief Complaint: Fall Stated Complaint: FALL-ARM, POSS HEAD. [facility] PT Time Seen by Provider: 10/07/23 18:04 Source: family Mode of arrival: Wheelchair Limitations: no limitations History of Present Illness HPI Narrative: Patient is an 82-year-old female with a history of Alzheimer's who presents to the emergency department with her for evaluation of left shoulder pain after a fall at home. Patient's provides the entire history as the patient is a poor historian with her history of dementia. He states that the patient was trying to use an automotive machinist apprentice to pull off newly installed locks on the windows to prevent her from leaving the home. The patient's went to the other side of the home and heard her fall, she was found on her back complaining of left shoulder pain. At this time she has no focal medical complaints, she is at her mental baseline. He is not aware of any altered mental status, syncope. She has not had any vomiting. She is able to ambulate. She takes no blood thinners daily. Related Data Allergies Allergy/AdvReac Type Severity Reaction Status Date / Time Sulfa (Sulfonamide Allergy Verified 10/07/23 18:00 Antibiotics) Review of Systems ROS Constitutional Denies: fever or chills Cardiovascular Denies: chest pain Respiratory Denies: shortness of breath or cough Gastrointestinal Denies: vomiting or diarrhea Musculoskeletal Reports: extremity pain Integumentary/Breast Denies: rash Neurological Denies: slurred speech Hematologic/Lymphatic Denies: easy bruising or easy bleeding Allergic/Immunologic Denies: hives PFSH PFS Social History Smoking status: Former smoker Exam Narrative Exam Narrative: Gen.: Awake, alert, in no distress Head: Normocephalic, atraumatic ENT: Moist mucous membranes Respiratory: No respiratory distress, lungs clear bilaterally Cardio: Regular rate and rhythm Gastrointestinal: Abdomen is soft, nondistended and nontender to palpation; pelvis is stable and hips are nontender Extremities: Moves extremities equally, no injuries noted Psych: Normal mood and affect Neuro: No focal neuro deficit Skin: Warm, dry, intact Constitutional Vital Signs, click to edit/add: Last Vital Signs Temp 98.0 F 10/07/23 18:00 Pulse 87 10/07/23 18:00 Resp 18 10/07/23 18:00 BP 118/63 10/07/23 18:00 Pulse Ox 95 10/07/23 18:00 O2 Del Method Room Air 10/07/23 18:17 Course Vital Signs Vital signs: Vital Signs Temperature 98.0 F 10/07/23 18:00 Pulse Rate 87 10/07/23 18:00 Respiratory Rate 18 10/07/23 18:00 Blood Pressure 118/63 10/07/23 18:00 Pulse Oximetry 95 10/07/23 18:00 Oxygen Delivery Method Room Air 10/07/23 18:00 Temperature 98.0 F 10/07/23 18:00 Pulse Rate 87 10/07/23 18:00 Respiratory Rate 18 10/07/23 18:00 Blood Pressure 118/63 10/07/23 18:00 Pulse Oximetry 95 10/07/23 18:00 Oxygen Delivery Method Room Air 10/07/23 18:17 MDM - Fall MDM Narrative Medical decision making narrative: CTs of the head, C-spine as well as x-rays of the chest, left humerus and pelvis are unremarkable. Atelectasis noted on chest x-ray, thought to be favored over pneumonia as the patient has no fevers, cough or congestion. She has no complaints of pain in the ER and did not require any pain medication. She is discharged home to follow-up with PCP and return to the ER if symptoms change or worsen. Lab studies, EKG at baseline Medical Records Attestation: I reviewed the patient's medical records. Lab Data Attestation: I reviewed the patient's lab results. Labs: Lab Results 10/07/23 Range/Units 18:29 WBC 10.0 (4.0-11.0) 10^3/uL RBC 4.27 (4.20-5.40) 10^6/uL Hgb 13.3 (12.0-16.0) g/dL Hct 41.7 (36.0-48.0) % MCV 97.7 (81.0-99.0) fL MCH 31.1 (26.7-34.0) pg MCHC 31.9 (29.9-35.2) g/dL RDW 13.0 (11.0-15.0) % Plt Count 292 (150-450) 10^3/uL MPV 8.7 L (9.5-13.5) fL Neut % (Auto) 74.3 (43.0-75.0) % Lymph % (Auto) 14.8 L (20.5-60.0) % [place] % (Auto) 7.8 (1.7-12.0) % Eos % (Auto) 2.5 (0.9-7.0) % Baso % (Auto) 0.3 (0.2-2.0) % Neut # (Auto) 7.4 H (1.4-6.5) 10^3/uL Lymph # (Auto) 1.5 (1.2-3.8) 10^3/uL [place] # (Auto) 0.8 (0.3-0.8) 10^3/uL Eos # (Auto) 0.3 (0.0-0.7) 10^3/uL Baso # (Auto) 0.0 (0.0-0.1) 10^3/uL Abs Immat Gran (auto) 0.03 (0.00-0.03) 10^3/uL Imm/Tot Granulo (auto) 0.3 (0.0-0.5) % PT 9.8 (9.0-11.6) sec INR <0.93 Sodium 140 (136-145) mmol/L Potassium 3.4 L (3.5-5.1) mmol/L Chloride 105 (98-107) mmol/L Carbon Dioxide 28.4 (21.0-32.0) mmol/L Anion Gap 10.0 BUN 20.0 H (7.0-18.0) mg/dL Creatinine 1.25 H (0.55-1.02) mg/dL Est GFR ( Amer) 50 L (>=60) Est GFR (Non-Af Amer) 41 L (>=60) BUN/Creatinine Ratio 16.0 Glucose 121 H (74-106) mg/dL Calcium 9.4 (8.5-10.1) mg/dL Total Bilirubin 0.3 (0.2-1.0) mg/dL AST 30 (15-37) U/L ALT 51 (14-59) U/L Alkaline Phosphatase 85 (46-116) U/L Troponin I High Sens 8.8 (4.0-51.3) pg/mL Total Protein 7.5 (6.4-8.2) g/dL Albumin 3.2 L (3.4-5.0) g/dL Globulin 4.3 g/dL Albumin/Globulin Ratio 0.7 ECG Data Attestation: I personally reviewed and interpreted this ECG as follows: (Normal sinus rhythm at a rate of 76, no acute ST elevation, occasional ectopy, ekg reviewed by attending physician) Discharge Plan Discharge Chief Complaint: Fall Clinical Impression: Fall, Contusion of left shoulder Patient Disposition: Home, Self-Care Time of Disposition Decision: 20:00 Condition: Good Instructions: Fall Prevention for Older Adults (ED), Contusion in Adults (ED) Stand Alone Forms: Portal Instructions Referrals: Mneg Bean MD [Primary Care Provider] - 1 week
== END 2023-10-07 20:28 | disposition home or self-care (01) ==
PROVIDERS: Physician Assistant; Emergency Provider Emergency Medicine; PCP Family Medicine
DX: S40.012A Contusion of left shoulder, initial encounter (principal); W18.39XA Other fall on same level, initial encounter; G30.9 Alzheimer's disease, unspecified; F02.80 Dementia in other diseases classified elsewhere, unspecified severity, without behavioral disturbance, psychotic disturbance, mood disturbance, and anxiety; Z87.891 Personal history of nicotine dependence
CPT/HCPCS: 36415; 70450; 71045; 72125; 72170; 73060; 80053; 84484; 85025; 85610; 93005; 99285

== ENCOUNTER 2023-10-12 15:44 | Observation (INO) | payer MEDICARE, SELFPAY ==
[2023-10-12] VITALS (9 sets, daily range): BP systolic 106–147; BP diastolic 54–68; PULSE 74–78; RESP 16–20; TEMP 36.7–36.8; O2SAT 87–93; BMI 30.4; BMI 30.3
--- NOTE | 2023-10-12 16:03 | CT_ITS ---
The [address] [address] Patient Name: ROBERTO HILL MRN: [id number] date: 1940 Sex: F Assigned Patient Location: ER Current Patient Location: ER Accession/Order Number: [id number] Exam Date: 10/12/2023 16:30 Report Date: 10/12/2023 16:54 At the request of: ROCIO MORSE Procedure: CT head/brain wo con CLINICAL HISTORY: Weak, speech difficulty yesterday, back to normal. EXAMINATION: Unenhanced CT scan of the brain: 10/12/2023. COMPARISON: Unenhanced CT scan of the brain 10/07/2023. TECHNIQUE: 3 mm axial images from skull base through vertex without intravenous contrast were obtained. Sagittal and reconstructions were performed. Dose reduction techniques were achieved by using automated exposure control and/or adjustment of mA and/or kV according to patient size and/or use of iterative reconstruction technique. FINDINGS: The ventricles, sulcal, cisternal spaces remain prominent with chronic microvascular ischemic changes surrounding the ventricles. No discrete mass, mass effect or midline shift is seen. The visualized intraorbital contents are normal. There are calcifications of intracranial vertebral arteries, cavernous portions of the carotid arteries. There is no intra or extra-axial hemorrhage. No definite acute infarct is identified. The visualized paranasal sinuses demonstrate there is moderate opacification of left maxillary antrum which has developed since previous examination. There is mild to moderate opacification of ethmoid air cells and mild opacification of the frontal air cells. The visualized mastoid air cells appear normal. Calvarium appears intact. CT/CT head/brain wo con IMPRESSION: 1. Stable atrophic changes. 2. There is no acute infarct, hemorrhage or acute intracranial process to explain patient's symptoms. 3. Inflammatory changes involving left maxillary antrum, ethmoid air cells. Electronically authenticated by: ERIK HARLEY Date: 10/12/2023 16:54
--- NOTE | 2023-10-12 16:03 | ECG_ITS ---
The [facility] Test Date: 2023-10-12 Pat Name: ROBERTO HILL Department: Room: - Gender: Female Events Intern: : 1940 Requested By: SAVANA PRATER Order Number: [id number] Reading MD: SAVANA PRATER Measurements Intervals [place] Rate: 80 P: 64 [place]: 164 QRS: 38 QRSD: 92 T: 37 QT: 374 QTc: 409 Interpretive Statements 1100 Sinus rhythm [address] depression [address] & Twave abnormality 9130 borderline ECG Compared to ECG 10/07/2023 18:15:15 Ventricular premature complex(es) no longer present ST (T wave) deviation still present Electronically Signed On 10-13-2023 6:42:45 EST by SAVANA PRATER
--- NOTE | 2023-10-12 16:04 | ED.GENADUL1 ---
HPI - General Adult General Stated complaint: POSS PNEUMONIA, POSS UTI Time Seen by Provider: 10/12/23 15:53 Source: family Source information: Mode of arrival: walk-in Limitations: altered mental status History of Present Illness HPI narrative: 82-year-old female who has severe dementia presents to the Emergency Department for weakness and difficulty with her speech. gives all the history. He describes her having some trouble with her speech yesterday but is back to normal today. He had trouble getting her out of the bathtub yesterday but some friends helped him and he was able to eventually do so. She doesn't seem to complain of any pain and there is been no vomiting or diarrhea. Related Data Home Medications Medication Instructions Recorded Confirmed amlodipine 10 mg tablet 10 mg PO DAILY 10/12/23 10/12/23 carvedilol 12.5 mg tablet 12.5 mg PO Q12H 10/12/23 10/12/23 desvenlafaxine succinate 50 mg 50 mg PO Q24H 10/12/23 10/12/23 tablet,extended release 24 hr estradiol 0.01% (0.1 mg/gram) 1.5 g vaginal .WEEKLY 10/12/23 10/12/23 vaginal cream rosuvastatin 40 mg tablet 40 mg PO .QHS 10/12/23 10/12/23 Allergies Allergy/AdvReac Type Severity Reaction Status Date / Time Sulfa (Sulfonamide Allergy Verified 10/12/23 15:51 Antibiotics) Review of Systems ROS Narrative not obtainable, dementia PFSH PFSH Social History Smoking status: Never smoker Exam Narrative Exam Narrative: Nurses note and vital signs reviewed and patient is not hypoxic. General: The patient appears well and in no apparent distress. Patient is resting comfortably on cart. Skin: Warm, dry, no pallor noted. There is no rash noted. Head: Normocephalic, atraumatic Eye: Normal conjunctiva, no drainage Ears, Nose, Mouth, and Throat: oral mucosa is moist. Nares patent. Cardiovascular: Regular Rate and Rhythm Respiratory: Patient is in no distress, no accessory muscle use, lungs are clear to auscultation, no wheezing, rales or rhonchi Back: non-tender GI: no tenderness to palpation, no masses appreciated. No rebound, guarding, or rigidity noted. Musculoskeletal: The patient has no evidence of calf tenderness, no pitting edema, symmetrical pulses noted bilaterally Neurological: awake and alert. Speech is not slurred. Upper and lower extremity strength is symmetric Psychiatric: Cooperative Constitutional Vital Signs, click to edit/add: Last Vital Signs Pulse 78 10/12/23 15:51 Resp 16 10/12/23 15:51 BP 114/58 10/12/23 15:51 Pulse Ox 93 L 10/12/23 15:51 O2 Del Method Room Air 10/12/23 15:51 Course Vital Signs Vital signs: Vital Signs Pulse Rate 78 10/12/23 15:51 Respiratory Rate 16 10/12/23 15:51 Blood Pressure 114/58 10/12/23 15:51 Pulse Oximetry 93 L 10/12/23 15:51 Oxygen Delivery Method Room Air 10/12/23 15:51 Pulse Rate 78 10/12/23 15:51 Respiratory Rate 16 10/12/23 15:51 Blood Pressure 114/58 10/12/23 15:51 Pulse Oximetry 93 L 10/12/23 15:51 Oxygen Delivery Method Room Air 10/12/23 15:51 Medical Decision Making MDM Narrative Medical decision making narrative: her workup indicates urinary tract infection and a white count sixteen thousand. Chest x-ray is pending at the time of this dictation. She's being admitted and was given IV Rocephin after cultures were obtained here. Treatment diagnosis and disposition were discussed with the patient and the patient's . Differential Diagnosis Differential Diagnosis: dementia, urinary traact infection, generalized weakness Lab Data Lab results reviewed: Yes I reviewed the patient's lab results Labs: Lab Results 10/12/23 10/12/23 Range/Units 16:10 16:15 WBC 16.4 H (4.0-11.0) 10^3/uL RBC 3.72 L (4.20-5.40) 10^6/uL Hgb 11.8 L (12.0-16.0) g/dL Hct 35.5 L (36.0-48.0) % MCV 95.4 (81.0-99.0) fL MCH 31.7 (26.7-34.0) pg MCHC 33.2 (29.9-35.2) g/dL RDW 13.1 (11.0-15.0) % Plt Count 274 (150-450) 10^3/uL MPV 9.2 L (9.5-13.5) fL Neut % (Auto) 80.0 H (43.0-75.0) % Lymph % (Auto) 12.1 L (20.5-60.0) % [place] % (Auto) 6.0 (1.7-12.0) % Eos % (Auto) 1.3 (0.9-7.0) % Baso % (Auto) 0.2 (0.2-2.0) % Neut # (Auto) 13.1 H (1.4-6.5) 10^3/uL Lymph # (Auto) 2.0 (1.2-3.8) 10^3/uL [place] # (Auto) 1.0 H (0.3-0.8) 10^3/uL Eos # (Auto) 0.2 (0.0-0.7) 10^3/uL Baso # (Auto) 0.0 (0.0-0.1) 10^3/uL Abs Immat Gran (auto) 0.07 H (0.00-0.03) 10^3/uL Imm/Tot Granulo (auto) 0.4 (0.0-0.5) % Sodium 133 L (136-145) mmol/L Potassium 3.0 L (3.5-5.1) mmol/L Chloride 95 L (98-107) mmol/L Carbon Dioxide 28.6 (21.0-32.0) mmol/L Anion Gap 12.4 BUN 31.0 H (7.0-18.0) mg/dL Creatinine 1.34 H (0.55-1.02) mg/dL Est GFR ( Amer) 46 L (>=60) Est GFR (Non-Af Amer) 38 L (>=60) BUN/Creatinine Ratio 23.1 Glucose 132 H (74-106) mg/dL Calcium 9.6 (8.5-10.1) mg/dL Troponin I High Sens 13.8 (4.0-51.3) pg/mL Urine Color Yellow (YELLOW) Urine Clarity Cloudy A (CLEAR) Urine pH 6.0 (5.0-9.0) Ur Specific [place] 1.020 (1.005-1.025) Urine Protein 30 A (NEG/TRACE) mg/dL Urine Glucose (UA) Negative (NEGATIVE) mg/dL Urine Ketones Trace A (NEGATIVE) mg/dL Urine Occult Blood Trace-i (NEGATIVE) Urine Nitrite Negative (NEGATIVE) Urine Bilirubin Negative (NEGATIVE) Urine Urobilinogen 1.0 (0.2-1.0) EU/dL Ur Leukocyte Esterase Small A (NEGATIVE) Urine RBC 2-5 A (0-2) #/HPF Urine WBC 20-50 A (NONE SEEN) #/HPF Ur Squamous Epith Cells Rare (NONE/RARE) #/LPF Urine Crystals None seen (None Seen) #/HPF Urine Bacteria Large A (NONE SEEN) #/HPF Urine Casts None seen (NONE SEEN) #/LPF Urine Mucus None seen (NONE SEEN) Imaging Data CT scan - head: Radiologist's impression: ITS Impressions Head CT 10/12/23 16:03 IMPRESSION: 1. Stable atrophic changes. 2. There is no acute infarct, hemorrhage or acute intracranial process to explain patient's symptoms. 3. Inflammatory changes involving left maxillary antrum, ethmoid air cells. Electronically authenticated by: ERIK HARLEY Date: 10/12/2023 16:54 ECG Data Attestation: I personally reviewed and interpreted this ECG as follows: (EKG on my interpretation shows normal sinus rhythm without acute changes and a rate of 80.) Discharge Plan Discharge Clinical Impression: Urinary tract infection Patient Disposition: Admitted as Observation Time of Disposition Decision: 17:17 Condition: Good Prescriptions / Home Meds: No Action amlodipine 10 mg tablet 10 mg PO DAILY carvedilol 12.5 mg tablet 12.5 mg PO Q12H desvenlafaxine succinate 50 mg tablet extended release 24 hr 50 mg PO Q24H estradiol 0.01 % (0.1 mg/gram) cream 1.5 g VAGINAL .WEEKLY rosuvastatin 40 mg tablet 40 mg PO .QHS Referrals: Meng Bean MD [Primary Care Provider] - 1 week
--- OUTSIDE RECORDS SUMMARY | 2023-10-12 16:08 | XMS_ITS | CCD ---
Author Name Unknown Address [address] [place] [address] Organization [facility] Care Team Providers Care Mixer And Scaler Name Role Phone TRABTALA IRBYF Unavailable Unavailable GWENDOLYN MOURDEONTEF Unavailable Unavailable Meng Prater Unavailable Unavailable Unavailable Meng Prater MD Primary Care Provider [phone] Meng Prater Primary Care Physician Meng Prater MD Primary Care Provider [phone] Meng Prater MD Primary Care Provider [phone] DR MENG PRATER Admitting Unavailable JOSI, DR [...] Attending Unavailable JOSI, DR SAWANT Consulting Unavailable YAJAIRA, DR SAMM Heller Consulting Unavailable DR MENG PRATER Primary Care Unavailable JOSI, DR SAWANT Admitting Unavailable JOSI, DR SAWANT Attending Unavailable JOSI, DR SAWANT Consulting Unavailable AFUA, DR ALEXIS Elizabeth Consulting Unavailable Meng Prater MD Primary Care Provider [phone] MENG PRATER Primary Care Unavailable MENG [...] Meng Prater MD Primary Care Provider [phone] MAUREEN BALLESTEROS Attending Unavailable MAUREEN BALLESTEROS Referring Unavailable Allergies Allergy Classification Reported Allergen(s) Allergy Type Date of Onset Reaction(s) Facility (14 sources) Penicillins; Translations: [Penicillins] Allergy to drug (finding) 3 Unknown (qualifier value) [place] [address] DO Work Phone: (5 sources) Sulfamethoxazole; Translations: [sulfa] Drug Allergy [facility] 250 DO Work Phone: (19 sources) Ciprofloxacin; Translations: [CIPROFLOXACIN] Drug Allergy 9 [facility] (3 sources) Penicillins Drug Allergy 3 [facility] (19 sources) Sulfonamides (Antibiotic); Translations: [SULFA (SULFONAMIDE ANTIBIOTICS)] Drug Allergy 9 [facility] (8 sources) Sulfonamides (Antibiotic); Translations: [sulfa drugs] Drug allergy Unknown (qualifier value) [facility] (15 sources) Penicillins Drug Allergy 3 [facility] (7 sources) NITROFURANTOIN, MACROCRYSTALS / Nitrofurantoin, Monohydrate; Translations: [nitrofurantoin] Drug Allergy 1 itching [facility] (1 source) Ciprofloxacin Drug Allergy [facility] (1 source) Penicillins Drug allergy (disorder) 3 [facility] (1 source) Sulfonamides (Antibiotic) Drug allergy (disorder) [facility] Medications Current Medications Medication Drug [...] by mouth once daily. Brain Misael Capsules (Coppertino) (12 sources) Start: 07-08-2020 End: 02-04-2023 take 2 tablets by mouth at mealtime Brain Misael Capsules (Coppertino) Take 2 tablets by mouth w MEALS. 0 07/08/2020 02/04/2023 Discontinued Start: 07-08-2020 take 2 tablets by [facility] at mealtime Brain Misael Capsules (Coppertino) Take 2 tablets by mouth w MEALS. 0 07/08/2020 Active Comment on above: Take 2 tablets by [facility] w MEALS. Clobetasol (7 sources) Corticosteroid [...] by mo uth twice daily with meals. Richmond-3 350 mg oral capsule (7 sources) Start: 11-23-2020 take 1 capsule by mouth once daily Richmond-3 350 mg oral capsule mg cap(s), Oral, [...] daily. 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 (2 pumps = 100 mg Glutathione) 0 02/04/2023 Active Comment on above: Use 20 pumps daily ( 1000mg) divided doses through out the day. (2 pumps = 100 mg Glutathione) Glutathione (Ameristream) - Liver support/detox (8 sources) Start: 12-01-2021 End: 07-25-2022 Glutathione (Ameristream) - Liver support/detox Use 8 pumps daily , divided doses through out the day. (2 pumps = 100 mg Glutathione). Work up slowly to the higher dose. 0 12/01/2021 07/25/2022 Discontinued Start: 12-01-2021 Glutathione (Q MymCart) - Liver support/detox Use 8 pumps daily [...] daily in divided doses between meals. (1 udbghbj=654vh) 0 02/04/2023 Active Comment on above: Take 1 capsule 3 fidel es daily in divided doses between meals. (1 yupdccj=073ph) ketoconazole 20 mg/ml topical cream (1 source) Azole Antifungal Ketoconazole 2 % External Cream APPLY SPARINGLY TO AFFECTED AREA(S) ONCE DAILY Quantity: 0 Refills: 0 Ordered: 06-Jun-2023 DO Active Lavela WS 1265 80 MG Oral Capsule (3 sources) Lavela WS 1265 8 0 MG Oral Capsule twice daily as needed Quantity: 0 Refills: 0 Ordered: 31-May-2022 DO Active Uicq-Fwvi-PP ([facility]) (8 sources) Start: 12-01-2021 End: 07-25-2022 Mmwi-Jdhk-HJ ([facility]) Take 1 capsule, 2 times daily with 4 oz or more of water. 0 12/01/2021 07/25/2022 Discontinued Start: 12-01-2021 Cyhk-Xaaz-HI ( [facility]) Take 1 capsule, [...] 0 Ordered: 31-May-2022 DO Active Neuromag ( Coppertino ) 90 ct (18 sources) Start: 07-08-20 Neuromag ( Coppertino ) 90 ct Take 3 capsules per day or as directed by a healthcare professional. 0 07/08/2020 Active Comment on above: Take 3 capsules per day or as directed by a healthcare professional. OmegaGenics EPA-DHA 2400 (High Concentrate EPA/DHA liquid) ([employer]) (18 sources) Start: 07-08-20 20 OmegaGenics EPA-DHA [...] capsule daily with a meal. 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; Translations: [HALFWAY CURRENT USE OF ASPIRIN] Onset: 11-07-2022 Episodic Other aftercare (1 source) Other watermelon inspector (current) drug therapy; Translations: [OTH HALFWAY CURRENT DRUG THERAPY] Onset: 11-07-2022 Episodic Other [...] Facility US.doppler Carotid arteries - bilateralon 08-25-2023 [facility] [address] [place] [address], [address], [place] [address] Vascular Lab Report [facility] [place] US CAROTID ARTERY DUPLEX BILATERAL Patient Name: ANN MARIE HILL Reading Physician: [id number] Miranda Tinoco MD, [facility] Study Date: 08/21/2023 Ordering Provider: [id number] MARY ANNE CASTLEEdda MRN/PID: [id number] Fellow: Technologist: Irasema Dooley RD, T Date of /Age: 3 1940 years Technologist 2: Gender: F Admission Status: Outpatient Location Performed: [facility] Diagnosis/ICD: Occlusion 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; Essential primary hypertension-I10 Indication: Hyperlipidemia, Dizziness, Dementia CPT Codes: 53733 Cerebrovascular Carotid Duplex scan complete CONCLUSIONS: Right [...] cm/s Right Left ICA/CCA Ratio 1.1 0.6 [id number] Miranda Tinoco MD, [facility] Final Miranda Tran M D - 08/25/[address], [address] [place] [address] Vascular Lab Report VASC US CAROTID ARTERY DUPLEX BILATERAL Patient Name: ANN MARIE Ferro Physician: [id number] Miranda Tinoco MD, [facility] Study Date: 08/21/2023 Ordering Provider: [id number] MARY ANNE SNOW MRN/PID: [id number] Fellow: Technologist: Irasema Dooley [facility], T Date of /Age: 3 1940 years Technologist 2: Gender: F Admission Status: Outpatient Location Performed: [facility] Diagnosis/ICD: Occlusion 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; Essential primary hypertension-I10 Indication: Hyperlipidemia, Dizziness, Dementia CPT Codes: 51084 Cerebrovascular Carotid Duplex scan complete CONCLUSIONS: Right [...] cm/s Right Left ICA/CCA Ratio 1.1 0.6 [id number] Miranda Tinoco MD, FACC Final [facility] Work Phone: US.doppler Carotid arteries - bilateralOrdered By: Miranda Tinoco on 08-25-2023 [facility] Work Phone: US.doppler Carotid arteries - bilateralon 08-21-2023 Radiology Study observation (narrative) [facility] Work Phone: C Urineon 07-21-2023 [...] Locations R1: This test was performed at: [facility], [address] [place] [address], [address] , [place], Normal [place] Comment on above: Performed By: #### 2 [id number] #### [place] [facility] [address] [place] [address] URINALYSISOrdered By: Robel Williamson on 07-19-2023 Bacteria [...] Interpretation Code Negative [facility] UA Auto SS [place].plasma/Lithiu m.RBC (Bld) [Mass ratio] 0-3 /HPF Normal [...] [facility] UA Auto SS Urobilinogen Qn (U) 0.9609873 {Ham'U}/dL Normal 0.0 - 1.0 EU/dL [facility] UA Auto SS WBC Auto Ql (U) 3+ *ABN* (07/19/23 3:17 PM) Invalid Interpretation Code Negative [facility] UA Auto SS WBC casts LM.LPF (Urine sed) [#/Area] 0-3 (10/11/23 3:17 PM) Normal [facility] UA Auto SS WBC LM.HPF (Urine sed) [#/Area] /[HPF] Invalid Interpretation Code 0-5/HPF [facility] UA Auto SS Urinalysison 07-19-2023 Bacteria LM Ql (Urine sed) 3+ /HPF Abnormal Trace [place] Comment on above: Performed By: #### 1 [id number] #### [place] [facility] [address] [place] [address] Bilirubin Ql (U) Negative Normal Negative [facility] Comment on above: Performed By: #### 1 [id number] #### [facility] [address] [place] [address] Clarity (U) CLOUDY Abnormal Clear [place] Comment on above: Performed By: #### 1 [id number] #### [facility] [address] [place] [address] Color (U) DARK YELLO Abnormal Yellow [place] Comment on above: Performed By: #### 1 [id number] #### [place] [facility] [address] [place] [address] Epithelial cells.squamous LM.HPF (Urine sed) [#/Area] 0-2 Normal 0-2 [facility] Comment on above: Performed By: #### 1 [id number] #### [place] [facility] [address] [place] [address] Glucose Test strip (U) [Mass/Vol] Negative Normal Negative [place] Comment on above: Performed By: #### 1 [id number] #### [facility] [address] [place] [address] Hemoglobin Ql (U) Negative Normal Negative [place] Comment on above: Performed By: #### 1 [id number] #### [facility] [address] [place] [address] Ketones (U) [Mass/Vol] TRACE Abnormal Negative [place] Comment on above: Performed By: #### 1 [id number] #### [facility] [address] [place] [address] [place].plasma/Lithiu m.RBC (Bld) [Mass ratio] 0-3 Normal 0-3 [place] Comment on above: Performed By: #### 1 [id number] #### [facility] [address] [place] [address] Nitrite Ql (U) Negative Normal Negative [facility] Comment on above: Performed By: #### 1 [id number] #### [facility] [address] [place] [address] pH (U) 5.5 [pH] Invalid Interpretation Code 5.0-9.0 [place] Comment on above: Performed By: #### 1 [id number] #### [facility] [address] [place] [address] Protein (U) [Mass/Vol] 1+ Abnormal Negative [place] Comment on above: Performed By: #### 1 [id number] #### [facility] [address] [place] [address] Specific gravity (U) [Rel density] 1.025 Invalid Interpretation Code 1.005-1.030 [place] Comment on above: Performed By: #### 1 [id number] #### [facility] [address] [place] [address] Type of Urine collection method Clean Catch Normal [place] Comment on above: Performed By: #### 1 [id number] #### [facility] [address] [place] [address] Urobilinogen Qn (U) 0.2 {Ham'U}/dL Normal 0.0-1.0 [place] Comment on above: Performed By: #### 1 [id number] #### [facility] [address] [place] [address] WBC Auto Ql (U) 3+ Abnormal Negative [facility] Comment on above: Performed By: #### 1 [id number] #### [place] [facility] [address] [place] [address] WBC casts LM.LPF (Urine sed) [#/Area] 0-[address] [facility] Comment on above: Performed By: #### 1 [id number] #### [place] [facility] [address] [place] [address] WBC LM.HPF (Urine sed) [#/Area] /[HPF] Abnormal 0-5 [place] Comment on above: Performed By: #### 1 [id number] #### [place] [address] [place] [address] Office Visit (Cardiology)on 06-06-2023 Follow-up visit Diagnoses/Problems [...] Status:Hold For - Scheduling,Retrospect chema Authorization; Requested for:[id number]; Laterality : Bilateral Essential hypertension Renew: Carvedilol 12.5 MG Oral Tablet; TAKE 1 TABLET TWICE DAILY Overweight with body mass index (BMI) of 27 to 27.9 in adult Healthy Weight Tips; Status:Complete - Retrospective Authorization; Done: [id number] Some eating tips that can help you lose weight.; Status:Complete - Retrospective Authorization; Done: [id number] SocHx: Never a smoker Tobacco Use Screening; Status:Complete; Done: [id number] Patient Instructions Please bring all medicines, vitamins, [...] as needed Neuro Rudolph TABSTAKE DIRECTED. Pristiq HC50ygu daily Rosuvastatin Calcium 40 MG Oral TabletTAKE [...] no fr (more content not included)... Normal [facility] Tobacco Screening.on 023 Adult depression screening assessment No [facility] [employer]ield 250 DO Work Phone: Fall risk assessment a) No falls within the last year [facility] Sw[employer] 250 DO Work Phone: Tobacco use status [facility] b) No [facility] Sw[employer] 250 DO Work Phone: CNOVon 05-19-2023 CNOV Office Visit (MEDN ) ANN MARIE HILL ([id number]) 1940 F Date Time Provider Department 05/19/23 3:30 PM [facility] During your visit today, we recorded the [...] OmegaGenics EPA-DHA 2400 (High Concentrate EPA/DHA liquid) ([employer]) Take one teaspoon (5 ml) 1 times daily with food UT Synergy (Coppertino) antibacterial Take 1 capsule by mouth twice daily. Brain Misael Capsules (Coppertino) Take 2 tablets by mouth w MEALS. Neuromag ( Coppertino ) 90 ct Take 3 capsules per [...] diet to mix and match - cancelled mate first visit due to not having NutrEval back. [...] following ket (more content not included)... Normal [facility] ED Note-Physicianon 05-15-20 ED Note-Physician [id number]# 1.00CD:127 Normal [place] Screenson 04-26-2023 Screens [id number] .00CD:127 Normal [place] Ambulatory Visit Summaryon 0 04-25-2023 Ambulatory Visit [...] mg/g Vag Crm) omega-3 polyunsaturated fatty acids (Richmond-3 350 mg oral capsule) ubiquinone (Co Q-10) [...] When: Where: [address] [place] [address] Medications What How Much When Instructions Unchanged [...] or concerns Unchanged omega-3 polyunsaturated fatty acids (Richmond-3 350 mg oral capsule) By Mouth Every [...] blockage i (more content not included)... Normal [place] Patient Educationon 04-25-20 Patient Education Obstetrics and [...] these instructions at home: Medicines ? Take evvw-fmn-uzxrlvo and prescription medicines only as told by [...] provider. Document Revised: 05/07/2021 Document Reviewed: 05/07/2021 C-sam Patient Education ? 2022 [employer]. Normal [place] [facility] Office/Clinic Noteon 04-25-2023 Urology Office/Clinic Note [...] 2+ leuks. Asymptomatic. No Tx. +C&S 02/27/23 [facility] *Tx'd w/5 day Macrobid therapy. Increased [...] provider and she was started on supplements. [employer] Dr Ballesteros, started her on Estradiol 1gm again. and then we started back on the Clobetasol. She is currently using both creams as needed and husbands says it helps a lot. +C&S 02/27/23 [facility] *Tx'd w/5 day Macrobid therapy. Pt [...] Contact Information DANIEL BOYER, ELLEN Bell, URL [address] [place] [address] Additional Instructions: Patient Education Urinary Tract Infection, Adult, Ubig-ue-Jrfl Documentation recorded by the scribchris Valdez accurately [...] Tab, 10 mg= 1 tab(s), Oral, Daily Richmond-3 350 mg oral capsule, Oral, Daily Pristiq, [...] Status Comments (more content not included)... Normal [place] Comment on above: Result Comment: Elec tronically [...] mg/g Vag Crm) omega-3 polyunsaturated fatty acids (Richmond-3 350 mg oral capsule) ubiquinone (Co Q-10) valsartan (valsartan 80 mg Tab) vitamin E Procedures Performed Cystourethroscopy with dilation of urethral stricture (02/12/2019). What to do next Scheduled Follow-Up Appointments Monday 2:15 PM EDT With: GENO WATTS, Kunal Heller Where: [facility] 02-22-2023 [facility] Telephone ([facility]) ANN MARIE HILL ([id number]) 1940 F Date Time Provider Department 02/22/23 MODLOCHRISTIANA During your visit today, we recorded the following information about you: Audrey Singh 02/22/2023 12:21 PM Addendum Patient's spouse, Orestes called (confirmed Ann Marie's ), Ann Marie was seen by Dr. Christiana Montero. They received a test kit from [facility] in the mail and not sure what it is? Does she need to do this and what is it for. Dr. Montero did not mention anything at her last visit with him. He is asking if Concepcion can call Orestes back (he stated he is POA) on his cell ph# [phone] OR [phone]. Audrey Montero MD 02/22/2023 5:54 PM Signed [...] test can be done at the [facility] lab? He prefer not to have if done at home. Needs to know what the test is for and if its needs be done? He is asking for explanation and call back. Please call spouse on cell phone. on air personality: Orestes Phone number: [phone] Last office visit: 02/03/2023 Carine Coelho LPN [...] Fully Assessed Reason for Visit: Patient Question [0727] Prescriptions as of 02/23/2023 - PhytoMulti 60s capsules (SkillHound) Take 2 capsules daily, with meals. - Glycine (Pure Encapsulations) Take 1 capsule 3 times daily in divided doses between meals. (1 dthpcfp=940hh) - B-Complex Plus (Pure Encapsulations) Take 1 capsule by mouth daily with food. - Glutathione (Ameristream) Use 20 pumps daily (1000mg) divided doses [...] OmegaGenics EPA-DHA 2400 (High Concentrate EPA/DHA liquid) ([employer]) Take one teaspoon (5 ml) 1 times daily with food - UT Synergy (Coppertino) antibacterial Take 1 capsule by mouth twice daily. - Neuromag ( Coppertino ) 90 ct Take 3 capsules per [...] Encounter Status:Closed by MARTA COELHO on 02/23/23 [facility] Michelle 02-17-2023 [facility] Telephone ([facility]) ANN MARIE HILL ([id number]) 1940 F Date Time Provider Department 02/17/23 KASEY RAEGabriella During your visit today, we recorded the following information about you: Evelyn Flaherty LPN 02/17/2023 8:19 AM Signed NUTRITION RESOURCES SENT VIA Yasuu. Evelyn Flaherty LPN February 17, 2023 8:17 [...] daily in divided doses between meals. (1 zlxmkdh=718qt) - B-Complex Plus (Pure Encapsulations) Take 1 capsule by mouth daily with food. - Glutathione (Ameristream) Use 20 pumps daily (1000mg) divided doses [...] OmegaGenics EPA-DHA 2400 (High Concentrate EPA/DHA liquid) ([employer]) Take one teaspoon (5 ml) 1 times daily with food - UT Synergy (Coppertino) antibacterial Take 1 capsule by mouth twice daily. - Neuromag ( Coppertino ) 90 ct Take 3 capsules per [...] Encounter Status:Closed by EVELYN FLAHERTY on 02/17/23 [facility] CNHoracio 02-03-2023 CNOV Office Visit ([facility] ) ANN MARIE HILL ([id number]) 1940 F Date Time Provider Department 02/03/23 [...] OmegaGenics EPA-DHA 2400 (High Concentrate EPA/DHA liquid) ([employer]) Take one teaspoon (5 ml) 1 times daily with food UT Synergy (Coppertino) antibacterial Take 1 capsule by mouth twice daily. Brain Misael Capsules (Coppertino) Take 2 tablets by mouth w MEALS. Neuromag ( Coppertino ) 90 ct Take 3 capsules per [...] diet to mix and match - cancelled mate first visit due to not having NutrEval back. [...] Bowel Habits (more content not included)... Normal [facility] CNOVon 10-31-2022 CNOV Office Visit ([facility] ) ANN MARIE HILL ([id number]) 1940 F Date Time Provider Department 10/31/22 1:00 PM CHRISTIANA MONTERO [facility] During your visit today, we recorded the [...] OmegaGenics EPA-DHA 2400 (High Concentrate EPA/DHA liquid) ([employer]) Take one teaspoon (5 ml) 1 times daily with food UT Synergy (Coppertino) antibacterial Take 1 capsule by mouth twice daily. Brain Misael Capsules (Coppertino) Take 2 tablets by mouth w MEALS. Neuromag ( Coppertino ) 90 ct Take 3 capsules per [...] diet to mix and match - cancelled mate first visit due to not having NutrEval back. [...] this. F (more content not included)... Normal [facility] T4 Free SerPl-mCncon 023 Free T4 [Mass/Vol] 1.3 ng/dL Normal 0.9-1.7 [facility] Comment on above: Order Comment: Speci men Type: BLOOD SPECIMENOrdering Facility: [facility] Address: [place] [address] Performed By: #### 3 024-7, 3016-3 ####[facility] LABIA [id number] [address] [place] TSH SerPl-aCncon 10-31-2022 TSH Qn 1.570 m[IU]/L Normal 0.270-4.200 [facility] Comment on above: Order Comment: Speci men Type: BLOOD SPECIMENOrdering Facility: [facility] Address: [place] [address] Performed By: #### 3 024-7, 3016-3 ####[facility] LABCLIA [id number] [place] [id number] [place] CNPNon 10-28-2022 CNPN Telephone ([facility]) ANN MARIE HILL ([id number]) 1940 F Date Time Provider Department 10/28/22 [...] Fully Assessed Reason for Visit: Patient Question [3627] Prescriptions as of 10/28/2022 - desvenlafaxine ER [...] OmegaGenics EPA-DHA 2400 (High Concentrate EPA/DHA liquid) ([employer]) Take one teaspoon (5 ml) 1 times daily with food - UT Synergy (Coppertino) antibacterial Take 1 capsule by mouth twice daily. - Brain Misael Capsules (Coppertino) Take 2 tablets by mouth w MEALS. - Neuromag ( Coppertino ) 90 ct Take 3 capsules per [...] Encounter Status:Closed by EVELYN FLAHERTY on 10/28/22 [facility] Patient Education 08-08-20 Patient Education Obstetrics [...] this condition includes: ? Antibiotic medicine. ? Fmqx-sdn-sepcnzi medicines to treat discomfort. ? Drinking enough [...] these instructions at home: Medicines ? Take jgra-uli-cocsjqp and prescription medicines only as told by [...] This in (more content not included)... Normal [place] [facility] Office/Clinic Noteon 08-08-2022 Urology Office/Clinic Note [...] 04/08/2023 EDT [facility] [address] [place] [id number] Additional Instructions: Patient Education Urinary Tract Infection, [...] Tab, 10 mg= 1 tab(s), Oral, Daily Richmond-3 350 mg oral capsule, Oral, Daily Pristiq, [...] inactivated - Not Given Patient Refuses Normal [place] Comment on above: Result Comment: Elec tronically Signed By: Kunal LORA MD\.br\Date and Time Signed: 08/08/22 16:21 EDT\.br\Electronically Co-Signed By: Alisa Caban MA.br\Date and Time Co-Signed: 08/08/22 16:17 EDT CNOVon 07-25-2022 CNOV Office Visit ([facility] ) ANN MARIE HILL ([id number]) 1940 F Date Time Provider Department 07/25/22 [...] boullardi 2 hrs away from nystatin/candibactin/ diflucan. Updn-Kpzs-HR (EquityNet) Take 1 capsule, 2 times daily with 4 oz or more of water. Glutathione (Ameristream) - Liver support/detox Use 8 pumps daily , divided doses through out the day. (2 pumps = 100 mg Glutathione). Work up slowly to the higher dose. B-Complex Plus (Pure Encapsulations) Take 2 capsules by mouth daily with food. Multi t/d 60 ct. (Pure Encapsulations) - multivitamin Take 1 capsule by mouth twice daily with meals. OmegaGenics EPA-DHA 2400 (High Concentrate EPA/DHA liquid) ([employer]) Take one teaspoon (5 ml) 1 times daily with food UT Synergy [place]) antibacterial Take 1 capsule by mouth twice daily. Brain Misael Capsules (Coppertino) Take 2 tablets by mouth w MEALS. Neuromag ( Coppertino ) 90 ct Take 3 capsules per [...] is conf (more content not included)... Normal [facility] MG MAMM SCREEN JOSH W CADon 0 06-17-2022 MG MAMM SCREEN JOSH W CAD Patient: ANN MARIE HILL Exam Date: 06/17/2022 : 1940 Gender:F Ordering : DR MENG PRATER . Admission #: [id number] Family : Order #: [id number] CLICK HERE TO VIEW EXAM RADIOLOGY REPORT [...] Treatments None Family Cancers None LOCATION: [facility] BREAST COMPOSITION: Scattered areas fibroglandular density. [...] M.D. on 06/17/2022 at 15:47 Normal [facility] OCC BLD IMMUNOASSAYon 2021 OCCULT BLOOD Negative Normal NEGATIVE [facility] Comment on above: Performed By: #### O CHANDU #### [facility] [address] [address] [address] Hu Carlos INSULINon 06-04-2022 Insulin 11.2 uIU/mL Normal 2.6-24.9 [facility] Comment on above: Performed By: #### I NSULIN ####[facility] [id number] [address]Dr. Hu Carlos T4, T3U, FTI LABCORPon 06-04 Free Thyroxine Index 2.3 Normal 1.2-4.9 [facility] Comment on above: Performed By: #### T HYLC #### [facility] [address] [address] [address] Hu Carlos T3 Uptake 26 % Normal 24-39 [facility] Comment on above: Performed By: #### T HYLC #### [facility] [address] [address] [address] Hu Carlos T4 [Mass/Vol] 8.8 ug/dL Normal 4.5-12.0 [facility] Comment on above: Performed By: #### T HYLC #### [facility] [address] [address] [address] Hu Carlos VIT D 25-OH LABCORPon 2021 Vitamin D, 25-Hydroxy 60.5 ng/mL Normal 30.0-100.0 [facility] Comment on above: Result Comment: Nicolette min D deficiency has been defined by the [place] of Medicine and an Endocrine Society practice guideline as a level of serum 25-OH vitamin D less than 20 ng/mL (1,2). The Endocrine Society went on to further define vitamin D insufficiency as a level between 21 and 29 ng/mL (2). 1. IOM ([place] of Medicine). 2010. Dietary reference intakes for calcium and D. [place]: The National Academies Press. 2. Suzette MF, Julian [place], Fady CLEMONS, et al. Evaluation, treatment, and prevention of vitamin D deficiency: an Endocrine Society clinical practice guideline. JCEM. 2010; 96(7):1911-30. Performed By: #### V ITADLC ####[facility] [address] [place], [place] [address]JoDr. Hu Carlos CBC AUTO DIFFon 06-03-2022 BASO # 0.0 103/ul Normal 0.0-0.1 [facility] Comment on above: Performed By: #### C BC #### [facility] [address] [address] [address] Hu Carlos Basophils/100 WBC (Bld) 0.6 % Normal 0.2-2.0 [facility] Comment on above: Performed By: #### C BC #### [facility] [address] [place] [address] Dr. Hu Carlos EO # 0.2 103/ul Normal 0.0-0.7 [facility] Comment on above: Performed By: #### C BC #### [facility] [address] [place] [address] Dr. Hu Carlos Eosinophils/100 WBC (Bld) 3.2 % Normal 0.9-7.0 [facility] Comment on above: Performed By: #### C BC #### [facility] [address] [place] [address] Dr. Hu Carlos Erythrocyte distribution width (RBC) [Ratio] 12.6 % Normal 11.0-15.0 [facility] Comment on above: Performed By: #### C BC #### [facility] [address] [place] [address] Dr. Hu Carlos Hematocrit (Bld) [Volume fraction] 40.0 % Normal 36.0-48.0 [facility] Comment on above: Performed By: #### C BC #### [facility] [address] [place] [address] Dr. Hu Carlos Hemoglobin (Bld) [Mass/Vol] 12.8 g/dL Normal 12.0-16.0 [facility] Comment on above: Performed By: #### C BC #### [facility] [address] [place] [address] Dr. Hu Carlos IG # 0.01 10e3/ul Normal 0.00-0.03 [facility] Comment on above: Performed By: #### C BC #### [facility] [address] [place] [address] Dr. Hu Carlos IG % 0.2 % Normal 0.0-0.5 [facility] Comment on above: Performed By: #### C BC #### [facility] [address] [place] [address] Dr. Hu Carlos LYMPH # 1.2 103/ul Normal 1.2-3.8 [facility] Comment on above: Performed By: #### C BC #### [facility] [address] [place] [address] Dr. Hu Carlos Lymphocytes/100 WBC (Bld) 22.7 % Normal 20.5-60.0 [facility] Comment on above: Performed By: #### C BC #### [facility] [address] [place] [address] Dr. Hu Carlos MANUAL DIFF REQ NO Normal [facility] Comment on above: Performed By: #### C BC #### [facility] [address] [place] [address] Dr. Hu Carlos MCH (RBC) [Entitic mass] 31.8 pg Normal 26.7-34.0 [facility] Comment on above: Performed By: #### C BC #### [facility] [address] [place] [address] Dr. Hu Carlos MCHC (RBC) [Mass/Vol] 32.0 g/dL Normal 29.9-35.2 [facility] Comment on above: Performed By: #### C BC #### [facility] [address] [place] [address] Dr. Hu Carlos MCV (RBC) [Entitic vol] 99.3 fL Critically high 81.0-99.0 [facility] Comment on above: Performed By: #### C BC #### [facility] [address] [place] [address] Dr. Hu Carlos MONO # 0.5 103/ul Normal 0.3-0.8 [facility] Comment on above: Performed By: #### C BC #### [facility] [address] [address] [address] Hu Carlos Monocytes/100 WBC (Bld) 8.8 % Normal 1.7-12.0 [facility] Comment on above: Performed By: #### C BC #### [facility] [address] [address] [address] Hu Carlos NEUT # 3.4 103/ul Normal 1.4-6.5 [facility] Comment on above: Performed By: #### C BC #### [facility] [address] [address] [address] Hu Carlos Neutrophils/100 WBC (Bld) 64.5 % Normal 43.0-75.0 [facility] Comment on above: Performed By: #### C BC #### [facility] [address] [address] [address] Hu Carlos Platelet mean volume (Bld) [Entitic vol] 8.8 fL Critically low 9.5-13.5 [facility] Comment on above: Performed By: #### C BC #### [facility] [address] [address] [address] Hu Carlos PLT 278 103/ul Normal 150-450 [facility] Comment on above: Performed By: #### C BC #### [facility] [address] [address] [address] Hu Carlos RBC 4.03 106/ul Critically low 4.20-5.40 [facility] Comment on above: Performed By: #### C BC #### [facility] [address] [address] [address] Hu Carlos WBC 5.3 103/ul Normal 4.0-11.0 [facility] Comment on above: Performed By: #### C BC #### [facility] [address] [place] [address] Dr. Hu Carlos GLYCOHEMOGLOBIN A1Con 2021 ADA RECOMMENDATION SEE BELOW Normal [facility] Comment on above: Result Comment: ADA RECOMMENDED LIMIT 4.0 - 6.0 ADA THERAPEUTIC TARGET < 7.0 ACTION SUGGESTED > 7.0 Performed By: #### A 1C ####[facility] [id number] [address]Dr. Hu Carlos Glucose [Mass/Vol] 123 mg/dL Normal [facility] Comment on above: Performed By: #### A 1C ####[facility] [id number] [address]Dr. Hu Carlos HbA1c (Bld) [Mass fraction] 5.9 % Normal 4.5-6.2 [facility] Comment on above: Performed By: #### A 1C ####[facility] [id number] [address]Dr. Hu Carlos IRONon 06-03-2022 Iron [Mass/Vol] 68.0 ug/dL Normal 50.0-170.0 [facility] Comment on above: Performed By: #### I CANDY #### [facility] [address] [address] [address] Hu Carlos LIPID PROFILEon 06-03-2022 CHOL-HDL RATIO NORM SEE BELOW Normal [facility] Comment on above: Result Comment: 3.3 - 4.4 LOW RISK 4.4 - 7.1 AVERAGE RISK 7.1 - 11.0 MODERATE RISK >11.0 HIGH RISK Performed By: #### T SH, LIPID, CMP #### [facility] [address] [address] [address] Hu Carlos Cholesterol [Mass/Vol] 155 mg/dL Normal <=200 [facility] Comment on above: Performed By: #### T SH, LIPID, CMP #### [facility] [address] [address] [address] Hu Carlos Cholesterol in HDL [Mass/Vol] 70 mg/dL Critically high 40-60 [facility] Comment on above: Performed By: #### T SH, LIPID, CMP #### [facility] [address] [address] [address] Hu Carlos Cholesterol in LDL [Mass/Vol] 73.2 mg/dL Normal [facility] Comment on above: Performed By: #### T SH, LIPID, CMP #### [facility] [address] [address] [address] Hu Carlos Cholesterol.total/Cho lesterol in HDL [Mass ratio] 2.2 {ratio} Normal [facility] Comment on above: Performed By: #### T KISHOR, LIPID, CMP #### [facility] [address] [address] [address] Hu Carlos HDL NORMAL > or = 60 mg/dl - LO W CARDIOVASCULAR RISK <40 mg/dl - HIGH CARDIOVASCULAR RISK Normal [facility] Comment on above: Performed By: #### T KISHOR, LIPID, CMP #### [facility] [address] [address] [address] Hu Carlos LDL CALC NORMAL SEE BELOW Normal [facility] Comment on above: Result Comment: <100 mg/dl OPTIMAL 100 - 129 mg/dl NEAR OR ABOVE OPTIMAL 130 - 159 mg/dl BORDERLINE HIGH 160 - 189 mg/dl HIGH >190 mg/dl VERY HIGH Performed By: #### T KISHOR, LIPID, CMP #### [facility] [address] [address] [address] Hu Carlos Triglyceride [Mass/Vol] 59 mg/dL Normal <=150 [facility] Comment on above: Performed By: #### T KISHOR, LIPID, CMP #### [facility] [address] [place] [address] Dr. Hu Carlos VLDL CALC 11.8 mg/dL Normal [facility] Comment on above: Performed By: #### T KISHOR, LIPID, CMP #### [facility] [address] [place] [address] Dr. Hu Carlos PROF 14(COMP METB)on 022 Albumin [Mass/Vol] 3.5 g/dL Normal 3.4-5.0 [facility] Comment on above: Performed By: #### T KISHOR, LIPID, CMP #### [facility] [address] [place] [address] Dr. Hu Carlos Albumin/Globulin [Mass ratio] 1.0 {ratio} Normal [facility] Comment on above: Performed By: #### T KISHOR, LIPID, CMP #### [facility] [address] [address] [address] Hu Carlos ALP [Catalytic activity/Vol] 73 U/L Normal 46-116 [facility] Comment on above: Performed By: #### T SH, LIPID, CMP #### [facility] [address] [address] [address] Hu Carlos ALT [Catalytic activity/Vol] 24 U/L Normal 14-59 [facility] Comment on above: Performed By: #### T SH, LIPID, CMP #### [facility] [address] [address] [address] Hu Carlos Anion gap [Moles/Vol] 11.1 mmol/L Normal [facility] Comment on above: Performed By: #### T SH, LIPID, CMP #### [facility] [address] [address] [address] Hu Carlos AST [Catalytic activity/Vol] 15 U/L Normal 15-37 [facility] Comment on above: Performed By: #### T SH, LIPID, CMP #### [facility] [address] [address] [address] Hu Carlos Bilirubin [Mass/Vol] 0.4 mg/dL Normal 0.2-1.0 [facility] Comment on above: Performed By: #### T SH, LIPID, CMP #### [facility] [address] [place] [address] Dr. Hu Carlos Calcium [Mass/Vol] 8.9 mg/dL Normal 8.5-10.1 [facility] Comment on above: Performed By: #### T SH, LIPID, CMP #### [facility] [address] [address] [address] Hu Carlos Chloride [Moles/Vol] 103 mmol/L Normal 98-107 [facility] Comment on above: Performed By: #### T SH, LIPID, CMP #### [facility] [address] [address] [address] Hu Carlos CO2 [Moles/Vol] 30.9 mmol/L Normal 21.0-32.[address] [facility] Comment on above: Performed By: #### T SH, LIPID, CMP #### [facility] [address] [address] [address] Hu Carlos Creatinine [Mass/Vol] 0.81 mg/dL Normal 0.55-1.02 [facility] Comment on above: Performed By: #### T SH, LIPID, CMP #### [facility] [address] [address] [address] Hu Carlos EGFR-AF CYMRAES >60 Normal >=[address] [facility] Comment on above: Performed By: #### T SH, LIPID, CMP #### [facility] [address] [address] [address] Hu Carlos EGFR-NON AF CYMRAES >60 Normal >=60 [facility] Comment on above: Performed By: #### T SH, LIPID, CMP #### [facility] [address] [address] [address] Hu Carlos Globulin (S) [Mass/Vol] 3.6 g/dL Normal [facility] Comment on above: Performed By: #### T SH, LIPID, CMP #### [facility] [address] [address] [address] Hu Carlos Glucose [Mass/Vol] 100 mg/dL Normal 74-106 [facility] Comment on above: Performed By: #### T SH, LIPID, CMP #### [facility] [address] [address] [address] Hu Carlos Potassium [Moles/Vol] 4.0 mmol/L Normal 3.5-5.1 [facility] Comment on above: Performed By: #### T SH, LIPID, CMP #### [facility] [address] [address] [address] Hu Carlos Protein [Mass/Vol] 7.1 g/dL Normal 6.4-8.2 [facility] Comment on above: Performed By: #### T SH, LIPID, CMP #### [facility] [address] [address] [address] Hu Carlos Sodium [Moles/Vol] 141 mmol/L Normal 136-145 [facility] Comment on above: Performed By: #### T SH, LIPID, CMP #### [facility] [address] [address] [address] Hu Carlos Urea nitrogen [Mass/Vol] 21.0 mg/dL Critically high 7.0-18.0 [facility] Comment on above: Performed By: #### T SH, LIPID, CMP #### [facility] [address] [address] [address] Hu Carlos Urea nitrogen/Creatinine [Mass ratio] 25.9 mg/mg Normal [facility] Comment on above: Performed By: #### T SH, LIPID, CMP #### [facility] [address] [address] [address] Hu Carlos TSHon 06-03-2022 TSH 1.582 uIU/mL Normal 0.358-3.740 [facility] Comment on above: Performed By: #### T SH, LIPID, CMP #### [facility] [address] [address] [address] Hu Carlos PHQ-2 VITALSon 05-31-2022 Fall risk assessment a) No falls within the last year [facility] Work Phone: Tobacco use status CPHS b) No [facility] Work Phone: PHQ-2 VITALS Yes [facility] 250 DO Work Phone: Tobacco Screening.on 021 Fall risk assessment a) No falls within the last year [facility] [facility] 250 DO Work Phone: Tobacco use status CPHS b) No [facility] DO Work Phone: VASC LAB Carotid Artery Dupl ex Ultrasounon 06-23-2020 VASC LAB Carotid Artery Duplex Ultrasoun [facility] [address] [place] [address], [address] [place] [address] Vascular Lab Report Carotid Artery Duplex Ultrasound Patient Name: ANN MARIE HILL Reading Physician: [id number] Miranda Tinoco MD, FACC Study Date: 06/23/2020 Referring Physician: [id number] Mary Anne Snow MD MRN/PID: [id number] PCP: Meng Prater Accession/Order#: [id number] CC Report to: Date of : 1940 Technologist: Irasema Dooley RDCS, RVT Gender: F Technologist 2: Admission Status: Outpatient Location Performed: [facility] Diagnosis/ICD: 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 Indication: HTN, Hyperlipidemia, Mild Dementia, Overweight, PVC's Procedure/CPT: 08141 Cerebrovascular Carotid Duplex scan complete-86138 CONCLUSIONS: Right Carotid: Findings are consistent with [...] cm/s Right Left ICA/CCA Ratio 1.0 0.9 [id number] Miranda Tinoco MD, FACC Final Normal [facility] CARDIAC STRESS/REST YOSHI Dooley 09-11-2019 [facility] CARDIAC STRESS/REST INJECTION Patient Name: ANN MARIE HILL STUDY: MYOCARDIAL PERFUSION STRESS TEST WITH LEXISCAN Performing facility: [facility], [address] [place] [address], [address], [place] [address] [facility] Provider: Mary Anne Snow MD PCP: Dr. Robel PRATER Supervising provider: Yin Taylor MD, [facility] INDICATION: CP HISTORY: Gender: F; Age: 78 y/o ; Height: 154.94 cm; Weight: 77.1921136 kg. High Cholesterol; HTN PVCs CP DEMENTIA Denies smoking. COMPARISON: No comparison. ACCESSION NUMBER(S): [id number]; [id number]; [id number] ORDERING CLINICIAN: MARY ANNE SNOW TECHNIQUE: ONE [...] Electronically signed by: MARY ANNE SNOW MD [facility] Vital Signs Date Time Vital Sign Value Performing Clinician Facility 06-06-2023 13:36-0400 Body height 157.48 cm Meng M Hoy Work Phone: [facility] 250 DO Work Phone: 06-06-2023 13:36-0400 Body mass index (BMI) [Ratio] 27.98 kg/m2 Meng M Hoy Work Phone: [facility] 250 DO Work Phone: 06-06-2023 13:36-0400 Body surface area Derived from formula 1.71 m2 Meng M Hoy Work Phone: [facility] 250 DO Work Phone: 06-06-2023 13:36-0400 Body weight 69.4 kg Meng M Hoy Work Phone: [facility] 250 DO Work Phone: 06-06-2023 13:36-0400 Diastolic blood pressure 62 mm[Hg] Meng M Hoy Work Phone: [facility] 250 DO Work Phone: 06-06-2023 13:36-0400 Heart rate 64 /min Meng M Hoy Work Phone: [facility] 250 DO Work Phone: 06-06-2023 13:36-0400 Systolic blood pressure 100 mm[Hg] Meng M Hoy Work Phone: [facility] 250 DO Work Phone: 05-19-2023 15:41-0400 Body height 157.5 cm Christiana Montero MD Work Phone: [facility] 05-19-2023 15:41-0400 Body weight 70.94 kg Christiana Montero MD Work Phone: [facility] 05-19-2023 15:41-0400 Diastolic blood pressure 63 mm[Hg] Christiana Montero MD Work Phone: [facility] 05-19-2023 15:41-0400 Heart rate 76 /min Christiana Montero MD Work Phone: [facility] 05-19-2023 15:41-0400 Systolic blood pressure 124 mm[Hg] Christiana Montero MD Work Phone: [facility] 04-25-2023 11:12-0400 Blood Pressure Location ELLEN DANIEL [facility] 04-25-2023 11:12-0400 Diastolic blood pressure 80 mm[Hg] ELLEN DANIEL [facility] 04-25-2023 11:12-0400 Heart rate 72 /min ELLEN DANIEL [facility] 04-25-2023 11:12-0400 Respiratory rate 16 /min ELLEN DANIEL [facility] 04-25-2023 11:12-0400 Systolic blood pressure 130 mm[Hg] ELLEN DANIEL [facility] 02-03-2023 15:26-0400 Body height 157.5 cm Christiana Montero MD Work Phone: [facility] 02-03-2023 15:26-0400 Body weight 68.77 kg Christiana Montero MD Work Phone: [facility] 02-03-2023 15:26-0400 Diastolic blood pressure 59 mm[Hg] Christiana Montero MD Work Phone: [facility] 02-03-2023 15:26-0400 Heart rate 83 /min Christiana Montero MD Work Phone: [facility] 02-03-2023 15:26-0400 Systolic blood pressure 136 mm[Hg] Christiana Montero MD Work Phone: [facility] 10-31-2022 13:19-0500 Body height 157.5 cm Christiana Montero MD Work Phone: [facility] 10-31-2022 13:19-0500 Body temperature 97.81 [degF] Christiana Montero MD Work Phone: [facility] 10-31-2022 13:19-0500 Body weight 62.23 kg Christiana Montero MD Work Phone: [facility] 10-31-2022 13:19-0500 Diastolic blood pressure 68 mm[Hg] Christiana Montero MD Work Phone: [facility] 10-31-2022 13:19-0500 Heart rate 79 /min Christiana Montero MD Work Phone: [facility] 10-31-2022 13:19-0500 SaO2% (BldA) [Mass fraction] 97 % Christiana Montero MD Work Phone: [facility] 10-31-2022 13:19-0500 Systolic blood pressure 143 mm[Hg] Christiana Montero MD Work Phone: [facility] 08-08-2022 15:17-0400 Diastolic blood pressure 76 mm[Hg] Kunal LROA [facility] 08-08-2022 15:17-0400 Mean blood pressure 101 mm[Hg] Kunal LORA [facility] 08-08-2022 15:17-0400 Systolic blood pressure 152 mm[Hg] Kunal LORA [facility] 07-25-2022 12:47-0400 Body height 157.5 cm Christiana Montero MD Work Phone: [facility] 07-25-2022 12:47-0400 Body temperature 98.01 [degF] Christiana Montero MD Work Phone: [facility] 07-25-2022 12:47-0400 Body weight 61.01 kg Christiana Montero MD Work Phone: [facility] 07-25-2022 12:47-0400 Diastolic blood pressure 62 mm[Hg] Christiana Montero MD Work Phone: [facility] 07-25-2022 12:47-0400 Heart rate 80 /min Christiana Montero MD Work Phone: [facility] 07-25-2022 12:47-0400 SaO2% (BldA) [Mass fraction] 98 % Christiana Montero MD Work Phone: [facility] 07-25-2022 12:47-0400 Systolic blood pressure 140 mm[Hg] Christiana Montero MD Work Phone: [facility] 05-31-2022 11:58-0400 Body height 157.48 cm Meng Paz [employer] Work Phone: [facility] 250 DO Work Phone: 05-31-2022 11:58-0400 Body mass index (BMI) [Ratio] 23.59 kg/m2 Meng Paz Hoy Work Phone: [facility] 250 DO Work Phone: 05-31-2022 11:58-0400 Body surface area Derived from formula 1.59 m2 Meng [place] Hoy Work Phone: [facility] 250 DO Work Phone: 05-31-2022 11:58-0400 Body weight 58.51 kg Meng M Hoy Work Phone: [facility] 250 DO Work Phone: 05-31-2022 11:58-0400 Diastolic blood pressure 60 mm[Hg] Meng Paz Hoy Work Phone: [facility] DO Work Phone: 05-31-2022 11:58-0400 Heart rate 68 /min Meng Paz Hoy Work Phone: [facility] DO Work Phone: 05-31-2022 11:58-0400 Systolic blood pressure 102 mm[Hg] Meng Paz Hochuy Work Phone: [facility] DO Work Phone: 03-18-2022 12:59-0400 Body height 157.5 cm Evita Calderon MD Work Phone: [facility] 03-18-2022 12:59-0400 Body weight 55.34 kg Evita Calderon MD Work Phone: [facility] 03-18-2022 12:59-0400 Diastolic blood pressure 52 mm[Hg] Evita Calderon MD Work Phone: [facility] 03-18-2022 12:59-0400 Heart rate 70 /min Evita Calderon MD Work Phone: [facility] 03-18-2022 12:59-0400 Systolic blood pressure 107 mm[Hg] Evita Calderon MD Work Phone: [facility] 03-02-2022 10:32-0400 Body weight 56.61 kg Han Britton MD Work Phone: [facility] 03-02-2022 10:32-0400 Diastolic blood pressure 53 mm[Hg] Han Britton MD Work Phone: [facility] 03-02-2022 10:32-0400 Heart rate 75 /min Han Britton MD Work Phone: [facility] 03-02-2022 10:32-0400 Systolic blood pressure 115 mm[Hg] Han Britton MD Work Phone: [facility] 01-31-2022 14:14-0400 Blood Pressure Location Kunalsherrie LORA [facility] 01-31-2022 14:14-0400 Diastolic blood pressure 51 mm[Hg] Kunalsherrie LORA [facility] 01-31-2022 14:14-0400 Heart rate 66 /min Kunalsherrie LORA [facility] 01-31-2022 14:14-0400 Respiratory rate 16 /min Kunalsherrie LORA [facility] 01-31-2022 14:14-0400 Systolic blood pressure 96 mm[Hg] Kunal LORA [facility] 08-09-2021 13:50-0400 Body height 157.48 cm Meng [place] Hoy Work Phone: [facility] 250 DO Work Phone: 08-09-2021 13:50-0400 Body mass index (BMI) [Ratio] 21.58 kg/m2 Meng [employer] Hoy Work Phone: [facility] 250 DO Work Phone: 08-09-2021 13:50-0400 Body surface area Derived from formula 1.53 m2 Meng [employer] Hoy Work Phone: [facility] 250 DO Work Phone: 08-09-2021 13:50-0400 Body weight 53.52 kg Meng M Hoy Work Phone: [facility] DO Work Phone: 08-09-2021 13:50-0400 Diastolic blood pressure 60 mm[Hg] Meng Jackson Hoy Work Phone: [facility] DO Work Phone: 08-09-2021 13:50-0400 Heart rate 72 /min Meng M Hoy Work Phone: [facility] DO Work Phone: 08-09-2021 13:50-0400 Systolic blood pressure 110 mm[Hg] Meng M Hoy Work Phone: [facility] 250 DO Work Phone: Encounters Encounter Date Encounter Type Care Provider Facility Start: 09-20-2023 End: 09-20-2023 ambulatory MAUREEN BALLESTEROS Not Available Start: 08-21-2023 End: 08-21-2023 Subsequent hospital visit by physician Judy Smith Echo/Vasc Room 2 [facility] Comment on above: Carotid stenosis, bi lateral; Benign hypertension Start: 07-19-2023 End: 07-20-2023 ambulatory ELLEN COOK Facility:[facility] Start: 07-19-2023 End: 07-19-2023 Lab Drop off ELLEN COOK [facility] Start: 07-19-2023 End: 07-20-2023 ambulatory Leonor Phillips Facility:[facility] Start: 07-19-2023 End: 07-19-2023 Patient encounter procedure Leonor Phillips [facility] Start: 06-06-2023 Office outpatient vi sit 15 minutes Meng M Hoy Work Phone: [facility] 250 DO Work Phone: Start: 06-06-2023 ambulatory [...] m caregiver Christiana Montero MD Work Phone: [facility] Start: 04-26-2023 Rx Renewal Meng Williamy Work Phone: [facility] 250 DO Work Phone: Start: 04-25-2023 End: 04-26-2023 ambulatory ELLEN COOK Facility: [facility] Start: 04-25-2023 End: 04-25-2023 Patient encounter procedure ELLEN COOK [facility] Start: 04-17-2023 End: 04-18-2023 ambulatory Kunal LORA Facility:[facility] Start: 04-17-2023 End: 04-17-2023 Patient encounter procedure Kunal LORA [facility] Start: 02-17-2023 Telephone encounter Kasey Hernández RD Work Phone: Functional Medicine Comment on above: Appointment Start: 02-15-2023 End: 02-15-[address] Hernández RD Work Phone: [facility] Start: 02-15-2023 End: 02-15-2023 FQHC visit, estab pt Kasey Oden Edgar RD Work Phone: Functional Medicine Comment on above: Established Patient Start: 02-04-2023 ambulatory Christiana Concepcion Work Phone: Functional Medicine Comment on above: After Visit 02/03/23 Start: 02-04-2023 E-mail encounter fro m caregiver Christiana Montero MD Work Phone: [facility] Start: 02-03-2023 End: 02-03-2023 ambulatory MENG PRATER Facility:[facility] Start: 02-03-2023 End: 02-03-2023 Patient encounter procedure [...] m caregiver Christiana Montero MD Work Phone: [facility] Start: 10-31-2022 End: 10-31-2022 Patient encounter procedure [...] Start: 08-10-2022 End: 11-03-2022 ambulatory [facility] Start: 08-10-2022 End: 08-10-2022 Patient encounter procedure Kunal LORA [facility] Start: 08-08-2022 End: 08-09-2022 ambulatory Kunal LORA Facility:[facility] Start: 08-08-2022 End: 08-08-2022 Patient encounter procedure Kunal LORA [facility] Start: 07-25-2022 End: 07-25-2022 ambulatory CHRISTIANA MONTERO Facility:[facility] Start: 07-25-2022 End: 07-25-2022 Patient encounter procedure [...] sit 25 minutes Meng Prater Work Phone: [facility] 250 DO Work Phone: Start: 05-12-2022 ambulatory [facility] Provider Functional Medicine Comment on above: Mold Report Start: 05-12-2022 E-mail encounter fro m caregiver [facility] Provider [facility] Start: 05-09-2022 ambulatory Evita siu MD Work Phone: Functional Medicine Comment on above: Ubiquinol Start: 04-26-2022 Rx Renewal Meng Prater Work Phone: [facility] 250 DO Work Phone: Start: 04-11-2022 ambulatory [facility] Provider Functional Medicine Comment on above: Ultrasound - Carotid Artery Start: 04-11-2022 E-mail encounter fro m caregiver [facility] Provider [facility] Start: 03-18-2022 End: 03-18-2022 Patient [...] encounter procedure Kunal LORA [facility] Start: 01-09-2022 ambulatory Evita siu MD Work Phone: Functional Medicine Comment on above: Mold test results Start: 08-09-2021 Office outpatient vi sit 25 minutes Meng Prater Work Phone: [facility] 250 DO Work Phone: Start: 07-11-2017 Ambulatory [...] Anne Snow, Status: Pen, Time: 2:00 PM [facility] 250 DO Work Phone: Start: 06-04-2024 End: 06-04-2024 Patient encounter procedure 06/04/2024 2:00 PM EDT Office Visit [facility] [address] [facility] [address] [place] [address] Mary Anne Snow MD [address] [facility] [address] [place] [address] [facility] Start: 11-25-2023 DIABETES SCREEN DIABETES SCREEN [facility] Start: 07-24-2023 CAROTID, Provider: CHAD CARMONA ULTRASOUND ,[id number], Status: Pen, Time: 2:30 PM CAROTID, Provider: CHAD CARMONA ULTRASOUND ,[id number], Status: Pen, [facility]: 2:30 [facility] Work [facility]: Start: 06-09-2023 Influenza vaccination [facility] Start: 06-06-2023 FUV, Provider: Mary Anne Snow, Status: Pen, Time: 1:20 PM FUV, Provider: Mary Anne Snow, Status: Pen, Time: 1:20 PM [facility] 250 DO Work Phone: Start: 03-18-2023 BP CONTROLLED (<130/80) BP CON TROLLED (<130/80) [facility] Start: 03-02-2023 BP CONTROLLED (<130/80) BP CON TROLLED (<130/80) [facility] Start: 02-04-2023 End: 04-06-2023 MISC SEND OUT TST 1 MISC SEND OUT TST 1 Lab Routine 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) Chemical exposure Expected: 02/04/2023, Expires: 04/06/2023 [facility] Work Phone: Comment on above: Expected: 02/04/2023 , Expires: 04/06/2023 Start: 12-01-2022 BP CONTROLLED (<130/80) BP CON TROLLED (<130/80) [facility] Start: 10-09-2022 ADVANCE DIRECTIVE DISCUSSION ADVANCE DIRECTIVE DISCUSSION [facility] Start: 07-25-2022 End: 09-24-2022 COPPER BLOOD COPPER BLOOD Lab Routine Memory change Expected: 07/25/2022, Expires: 09/24/2022 [facility] Work Phone: Comment on above: Expected: 07/25/2022 , Expires: 09/24/2022 Start: 07-25-2022 End: 09-24-2022 FM SQ NUTREVAL PANEL BLOOD AND URINE FM SQ NUTREVAL PANEL BLOOD AND URINE Lab Routine Impaired nutrient utilization Expected: 07/25/2022, Expires: 09/24/2022 [facility] Work Phone: Comment on above: Expected: 07/25/2022 , Expires: 09/24/2022 Start: 07-25-2022 End: 09-24-2022 Homocysteine [Moles/volume] in Serum or Plasma HOMOCYSTEINE Lab Routine Elevated homocysteine Expected: 07/25/2022, Expires: 09/24/2022 [facility] Work Phone: Comment on above: Expected: 07/25/2022 , Expires: 09/24/2022 Start: 07-25-2022 End: 07-25-2023 Thyrotropin [Units/volume] in Serum or Plasma TSH BLD Lab Routine Expected: 07/25/2022, Expires: 07/25/2023 [facility] Work Phone: Comment on above: Expected: 07/25/2022 , Expires: 07/25/2023 Start: 07-25-2022 End: 07-25-2023 Thyroxine (T4) free [Mass/volume] in Serum or Plasma T4 FREE/FREE THYROX Lab Routine Expected: 07/25/2022, Expires: 07/25/2023 [facility] Work Phone: Comment on above: Expected: 07/25/2022 , Expires: 07/25/2023 Start: 07-25-2022 End: 09-24-2022 Triiodothyronine (T3) Free [Mass/volume] in Serum or Plasma T3 FREE BLD Lab Routine Expected: 07/25/2022, Expires: 09/24/2022 [facility] Work Phone: Comment on above: Expected: 07/25/2022 , Expires: 09/24/2022 Start: 07-25-2022 End: 09-24-2022 Zinc [Mass/volume] in Serum or Plasma ZINC BLD Lab Routine Memory change Expected: 07/25/2022, Expires: 09/24/2022 [facility] Work Phone: Comment on above: Expected: 07/25/2022 , Expires: 09/24/2022 Start: 06-09-2022 Influenza vaccination [facility] Start: 05-31-2022 FUV, Provider: Mary Anne Snow, Status: Pen, Time: 11:50 AM FUV, Provider: Mary Anne Snow, Status: Pen, Time: 11:50 AM [facility] 250 DO Work Phone: Start: 05-25-2022 FUV, Provider: Mary Anne Snow, Status: Oliverio, Time: 1:00 PM FUV, Provider: Mary Anne Snow, Status: Pen, Time: 1:00 PM [facility] 250 DO Work Phone: Start: 10-09-2021 ADVANCE DIRECTIVE DISCUSSION ADVANCE DIRECTIVE DISCUSSION [facility] Start: 08-07-2019 Pneumococcal Vaccine : 65+ Years (2 - PPSV23 or PCV20) Pneumococcal Vaccine: 65+ Years (2 - PPSV23 or PCV20) [facility] Start: 2006 BONE DENSITY BONE DENSITY [facility] Start: 2006 PNEUMOCOCCAL: 65+ (1 - PCV) PNEUMOCOCCAL: 65+ (1 - PCV) [facility] Start: 2006 PNEUMOVAX AGE 65 AND OVER WITH 5YR LOOKBACK (#1) PNEUMOVAX AGE 65 AND OVER WITH 5YR LOOKBACK (#1) [facility] Start: 1991 SHINGRIX VACCINE (1 of 2) BYRNE GRIX VACCINE (1 of 2) [facility] Start: 1991 Zoster Vaccines (1 of 2) Zoste r Vaccines (1 of 2) [facility] Start: 1963 DTaP/Tdap/Td Vaccine s (1 - Tdap) DTaP/Tdap/Td Vaccines (1 - Tdap) [facility] Start: 1960 Urine microalbumin profile DTA P,TDAP,TD (1 - Tdap) [facility] Start: 1959 ANNUAL PCP TEAM CHAIR CAR ATTENDANT BRANNON DISEASE VISIT ANNUAL PCP TEAM CHRONIC DISEASE VISIT [facility] Start: 1959 BP CONTROLLED (<130/80) BP CON TROLLED (<130/80) [facility] Start: 1946 COVID-19 VACCINE (#1) COVID-19 VACCI NE (#1) [facility] Start: 1946 COVID-19 VACCINE (1) COVID-19 VACCIN E (1) [facility] Start: 05-09-1942 COVID-19 VACCINE (#1) COVID-19 VACCI NE (#1) [facility] Start: 1941 Lipid panel Lipid Panel [facility] Start: 1941 Medicare Annual Well ness Visit Medicare Annual Wellness Visit (AWV) [facility] Start: 1941 Screening for osteoporosis Bone Dens ity Scan [facility] End: 08-21-2023 US.doppler Carotid arteries - bilateral [facility] Work Phone: Comment on above: Once for 1 Occurrenc es starting 08/21/2023 until 08/21/2023 [facility] Immunizations Immunization Date Immunization Notes Care Provider Germain campos 08-07-2018 pneumococcal conjuga te vaccine, 13 valent Meng Paz Hoy Work Phone: [facility] 250 DO Work Phone: NEGATED: Highlighted row has not occurred!08-08-2022 SARS-CoV-2 mRNA (tozinameran 5y-11y) vaccine Kunal LORA [facility] NEGATED: Highlighted row has not occurred!11-23-2020 influenza virus vaccine, unspecified formulation Kunal LORA [facility] Payers Date Payer Category Payer Medicare AETNA MEDICARE A ETNA MEDICARE PPO [id number] 2021-Present [phone] [address] [place] [address] PPO [id number] 2021 Medicare [id number] 1959 Medicare [id number] 1941 Unknown [id number] 93 1941 Unknown [id number] 93 1941 Unknown [id number] [id number] 1941 Unknown [id number] [id number] 93 1941 Unknown [id number] [id number] 93 1941 Unknown [id number] [id number] 56 1941 Unknown [id number] [id number] 27 1941 Unknown [id number] [id number] 27 1941 Unknown [id number] [id number] 27 1941 Unknown [id number] [id number] 27 1941 Unknown [id number] [id number] 27 1941 Unknown [id number] [id number] 27 1941 Unknown [id number] 259 Private Health Insurance [id number] [id number] Unknown [employer] Social History Date Type Detail Facility Start: 10-31-2022 End: 02-15-2023 Caffeine use Caffeine use [place] [address] DO Work Phone: Comment on above: decaff occasional co ffee, 1-2 cups of ohtt lionel daily; Start: 06-13-2019 End: 04-25-2023 Tobacco smoking status NHIS Never smoked tobacco [facility] Start: 06-13-2019 End: 07-25-2022 Tobacco use and exposure Smokeless tobacco non-user [facility] Start: 1940 Sex Assigned At Female [facility] Start: 12-07-2021 End: 08-21-2023 Exposure to SARS-CoV-2 (event) Not sure [facility] Start: 10-31-2022 End: 02-15-2023 Sex Assigned At Female [facility] Tobacco smoking status Never [facility] Start: 07-07-2020 Sexual orientation Heterosexual (beronica winters) [facility] Tobacco smoking stat us NHIS Tobacco smoking consumption unknown [facility] Work Phone: Start: 1940 Sex Assigned At Not on file [facility] Work Phone: Functional Status Date Assessment Result Facility 04-25-2023 Functional Status N/A [facility] 08-08-2022 Functional Status N/A [facility] Clinical Notes 01-31-2022 to 07-19-2023 Patient InstructionsPatient InstructionsChristiana Montero MD - 05/19/2023 4:[address] - 05/19/2023 3:00 PM EDTTelephone Encounter - Evelyn Flaherty LPN - 02/17/2023 8:17 AM EDT Note Date & Type Note Facility 07-19-2023 Evaluation + Plan note Diagnostic Tests PendingUrine Culture 07/19/23 [facility] 05-22-[address] - 05/22/2023 9:01 AM EDT [facility] FUNCTIONAL MEDICINE FOLLOW UP NUTRITION INSTRUCTIONS Nutrition [...] Lionel Zero Pascha Recipes -Paleo Hot Chocolate: https://Deep Nines.Travelzen.com/vegan-hot -chocolate-paleo/ -Keto No Bake Brownie Bites: https://www.ISORG/keto -as-xlqj-mdmtiiq-bites/ -Whole Food Fudge: https://Napera Networks/easy-raw -blopt-fzwfh-jkrgy/ 2. Continue focus on the SEAMUS food plan principles previously discussed: -Richmond-3 Rich Fish (wild-caught salmon, mackerel, anchovies, sardines, rodrigues): twice per week -Continue grass-fed beef 3-4X/week -Add legumes 3-4X/week Three jamil salad recipe: https://DPSI/class cf-gkejv-mmqa-salad/ -Add homemade vinaigrette coleslaw or green salad daily Vinegar based coleslaw: https://www.Differential/vine ddp-awnso-cssfwzjf/ -Continue nuts/seeds daily I.e. almonds, walnuts, pecans [...] Patient Folder. (Or you can go to https://Quividi.[facility]. org) 2. For nutrition related questions or concerns, [facility] Work Study message your physician and include Attn: Shelley Mitchell RD at the top of the message. [facility] [employer] messaging is meant to support implementation of [...] Supplements: Supplements can be ordered from the [facility]'s Online Store: https://store.Fabrika Online/#login New patients to the Healthy Living Shop will need to enter the provider code FUNCTIONAL to register their account. documented in this encounter [facility] 05-19-2023 Note HNO ID: [id number] Author: Christiana Montero MD Service: ? Author [...] OmegaGenics EPA-DHA 2400 (High Concentrate EPA/DHA liquid) (SkillHound) Take one teaspoon (5 ml) 1 times daily with food UT Synergy (Coppertino) antibacterial Take 1 capsule by mouth twice daily. Brain Misael Capsules (Coppertino) Take 2 tablets by mouth w MEALS. Neuromag ( Coppertino ) 90 ct Take 3 capsules per [...] diet to mix and match - cancelled mate first visit due to not having NutrEval back. [...] home testnig. Frustrate (more content not included)... [facility] 05-19-2023 Note HNO ID: [id number] Author: Shelley Mitchell RD Service: ? Author Type: Registered Dietitian Type: Progress Notes Filed: 05/22/2023 9:02 AM Note Text: [facility] for Functional Medicine Nutrition Therapy: Follow-Up Assessment (Individual) IN PERSON Accompanied by her spouse today Patient Name: Ann Marie Hill Past Medical History: PAST MEDICAL HISTORY Diagnosis Date Alzheimer disease (HCC) HTN (hypertension) Allergies: Ciprofloxacin, Penicillins, and Sulfa (Sulfonamide Antibiotics) Current Medications/Supplements Current Outpatient Medications on File Prior to Visit Medication Sig PhytoMulti 60s capsules (SkillHound) Take 2 capsules daily, with meals. Glycine (Pure Encapsulations) Take 1 capsule 3 times daily in divided doses between meals. (1 [id number]) B-Complex Plus (Pure Encapsulations) Take 1 capsule by mouth daily with food. Glutathione (Ameristream) Use 20 pumps daily (1000mg) divided doses [...] OmegaGenics EPA-DHA 2400 (High Concentrate EPA/DHA liquid) (SkillHound) Take one teaspoon (5 ml) 1 times daily with food UT Synergy (Coppertino) antibacterial Take 1 capsule by mouth twice daily. Neuromag ( Coppertino ) 90 ct Take 3 capsules per [...] disturbance (HCC) [G30.1, F02.818] Provider Nutrition Notes:Per prepress manager R41.3 Memory change (primary encounter diagnosis) F05 [...] recall updated below; some restaurant meals at [facility] (focuses on 'chicken and vegetables'); endorses fish consumption limited to 2X/month Current Adverse Reactions to Foods: previously avoiding wheat, dairy, sugar, grains; not strict with this now Subjective (12/01/21) Weight has been stable: 118-120 Would like more print outs today vs. TaxiPixi Subjective (08/06/21) -Daughter christos on line: states [...] Biochemical and L (more content not included)... [facility] 05-19-2023 Note Education ([facility]) ANN MARIE HILL ([id number]) 1940 F Date Time Provider Department 05/19/23 3:00 PM SHELLEY MITCHELL [facility] Reason for Visit: Established Patient [175] [...] daily in divided doses between meals. (1 [id number]) - B-Complex Plus (Pure Encapsulations) Take 1 capsule by mouth daily with food. - Glutathione (Ameristream) Use 20 pumps daily (1000mg) divided doses [...] OmegaGenics EPA-DHA 2400 (High Concentrate EPA/DHA liquid) (SkillHound) Take one teaspoon (5 ml) 1 times daily with food - UT Synergy (Coppertino) antibacterial Take 1 capsule by mouth twice daily. - Neuromag ( Coppertino ) 90 ct Take 3 capsules per [...] Encounter Status:Closed by SHELLEY MITCHELL on 05/22/23 [facility] 05-19-2023 Instructions Christiana Montero MD [...] cheese, dairy, whole grains, and eggs. The ACCOUNTING SPECIALIST is 4.1 mg per kilogram of body weight or 1.9 mg per pound. Some high cysteine foods include: Soybeans, raw (609 mg per 1/2 cup) Oat bran, dry (541 mg per 1 cup) Pork ham, roasted (492 mg per 4 oz.) Tuna Fish, light, canned in oil, drained (456 mg per 1 cup) Chicken breast, cooked (444 mg per 4 oz.) [place] breast, cooked (436 mg per 4 oz.) Beef angelo, cooked (408 mg per 4 oz.) Oat bran, cooked (217 mg per 1 cup) Egg, whole, raw, fresh (136 mg per 1 large egg) Acme seeds, oil roasted (113 mg per 1 oz.) Cashews, oil-roasted (104 mg per 1 oz.) Peanuts, oil roasted (95 mg per 1 oz.) Estonian cheese, diced (83 mg per 1 oz.) [...] cofactor for the production of glutathione. The ACCOUNTING SPECIALIST value to maximize glutathione production in the [...] peppers may be beneficial Functional Nutrition: per mate first Review and implement diet factors recommended through nutritional visit - use your health assistant boys track coach for discussion on how to implement [...] We recommend ordering supplementation online from the [facility] ParStream Shop as they are high quality therapeutic supplements. ParStream Shop [facility] offers an easy to use, convenient way to order supplementation recommended by your provider through the ParStream Shop. All of the products offered are considered high-quality, and adhere to specific criteria for quality and effectiveness including good manufacturing practices, use of clean products, free of fillers, binders, and other antigens. In addition, we follow third constitution party analysis for independent verification of active ingredients. Get started by following three easy steps: A. Visit the following webpage: https://BrandShield.Fabrika Online/ JustParts Statements on this site have not been [...] For issues with your MRN please call [phone] Stress Management InfernoRed Technology Neuro -new technology to use a wearable device to retrain brain and focus on nervous system reduction. To learn more of this technology by going to (uxq-eio-fxntz) https://Youtego/ Please look into this Heart Rate Variability [...] one of the Heart Math booklets off AudienceView that fits your 'go to' emotion - [...] fully) . --- Polyvagal theory (Connor Ybarra) https://www.Bountii/ --- Dynamic Neural Retraining System - (Ketty Christensen) https://retrainingthebrain.com/a lor-carolper/ --- Frias Program - (John Frias) Https://www.raeNezasa.Travelzen.com/ Finding time for self (no multitasking) at this time to dedicate to breathing / relaxation process. Work on cultivating ted! documented in this encounter [facility] 05-19-2023 History of Presen t illness Narrative [...] OmegaGenics EPA-DHA 2400 (High Concentrate EPA/DHA liquid) (SkillHound) Take one teaspoon (5 ml) 1 times daily with food UT Synergy (Coppertino) antibacterial Take 1 capsule by mouth twice daily. Brain Misael Capsules (Coppertino) Take 2 tablets by mouth w MEALS. Neuromag ( Coppertino ) 90 ct Take 3 capsules per [...] diet to mix and match - cancelled mate first visit due to not having NutrEval back. [...] Phenylacetic,Benzoic, DHPAA Detox Markers Yeast markers Citramalic Richmond 3 Index NOrmal Oxidative stress Lipid 9.7 8OHdg 11 Heavy metals Other Oxalate markers (glyceric, glycolic, oxalic) - all elevated Maritza Nutreval Jun 2020 High Need: Mod Need: All B's Amino acids: Malabsorption markers: Bacterial dysbiosis markers: Fungal dysbiosis markers:arabinose 55 Toxin/detox markers: high Richmond-3 Index: 4.3 Glutathione level:998 Lipid peroxides:8.5 Toxic [...] processed foods. Think of plasminogens for Alzheimer's www.prodrome.Travelzen.com Synapsin - if wishing to use notify [...] cheese, dairy, whole grains, and eggs. The ACCOUNTING SPECIALIST is 4.1 mg per kilogram of body weight or 1.9 mg per pound. Some high cysteine foods include: Soybeans, raw (609 mg per 1/2 cup) Oat bran, dry (541 mg per 1 cup) Pork ham, roasted (492 mg per 4 oz.) Tuna Fish, light, canned in oil, drained (456 mg per 1 cup) Chicken breast, cooked (444 mg per 4 oz.) [place] breast, cooked (436 mg per 4 oz.) Beef angelo, cooked (408 mg per 4 oz.) Oat bran, cooked (217 mg per 1 cup) Egg, whole, raw, fresh (136 mg per 1 large egg) Acme seeds, oil roasted (113 mg per 1 oz.) Cashews, oil-roasted (104 mg per 1 oz.) Peanuts, oil roasted (95 mg per 1 oz.) Estonian cheese, diced (83 mg per 1 oz.) [...] cofactor for the production of glutathione. The ACCOUNTING SPECIALIST value to maximize glutathione production in the [...] peppers may be beneficial Functional Nutrition: per mate first Review and implement diet factors recommended through nutritional visit - use your health assistant boys track coach for discussion on how to implement [...] We recommend ordering supplementation online from the [facility] JustParts as they are high quality therapeutic supplements. ParStream [facility] offers an easy to use, convenient way to order supplementation recommended by your provider through the JustParts. All of the products offered are considered high-quality, and adhere to specific criteria for quality and effectiveness including good manufacturing practices, use of clean products, free of fillers, binders, and other antigens. In addition, we follow third constitution party analysis for independent verification of active ingredients. Get started by following three easy steps: A. Visit the following webpage: https://BrandShield.Fabrika Online/ JustParts Statements on this site have not been [...] For issues with your MRN please call [phone] Stress Management [place] Neuro -new technology to use a wearable device to retrain brain and focus on nervous system reduction. To learn more of this technology by going to (khh-gzn-lnxjl) https://Youtego/ Please look into this Heart Rate Variability [...] one of the Heart Math booklets off AudienceView that fits your 'go to' emotion - [...] fully) . --- Polyvagal theory (Connor Ybarra) https://www.connorNet Zero AquaLife.com/ --- Dynamic Neural Retraining System - (Ketty Christensen) https://retrainingthebrain.com/a lor-grace/ --- Frias Program - (John Frias) Https://www.ePACT Network.Travelzen.com/ Finding time for self (no multitasking) at this time to dedicate to breathing / relaxation process. Work on cultivating ted! Future Plans (for provider use): I spent a total of 45 minutes on the date of the service which included preparing to see the patient, qlkx-tc-ozmd patient care, completing clinical documentation, obtaining and/or reviewing separately obtained history, performing a medically appropriate examination, and ordering medications, tests, or procedures. Christiana Montero MD documented in this encounter [facility] 05-19-2023 History of Presen t illness Narrative [facility] Functional Medicine Nutrition Therapy: Follow-Up Assessment (Individual) IN PERSON Accompanied by her spouse today Patient Name: Ann Marie Hill Past Medical History: PAST MEDICAL HISTORY Diagnosis Date Alzheimer disease (HCC) HTN (hypertension) Allergies: Ciprofloxacin, Penicillins, and Sulfa (Sulfonamide Antibiotics) Current Medications/Supplements Current Outpatient Medications on File Prior to Visit Medication Sig PhytoMulti 60s capsules (SkillHound) Take 2 capsules daily, with meals. Glycine (Pure Encapsulations) Take 1 capsule 3 times daily in divided doses between meals. (1 hqqloie=064se) B-Complex Plus (Pure Encapsulations) Take 1 capsule by mouth daily with food. Glutathione (Ameristream) Use 20 pumps daily (1000mg) divided doses [...] OmegaGenics EPA-DHA 2400 (High Concentrate EPA/DHA liquid) (SkillHound) Take one teaspoon (5 ml) 1 times daily with food UT Synergy (Coppertino) antibacterial Take 1 capsule by mouth twice daily. Neuromag ( Coppertino ) 90 ct Take 3 capsules per [...] disturbance (HCC) [G30.1, F02.818] Provider Nutrition Notes:Per prepress manager R41.3 Memory change (primary encounter diagnosis) F05 [...] recall updated below; some restaurant meals at [facility] (focuses on 'chicken and vegetables'); endorses fish consumption limited to 2X/month Current Adverse Reactions to Foods: previously avoiding wheat, dairy, sugar, grains; not strict with this now Subjective (12/01/21) Weight has been stable: 118-120 Would like more print outs today vs. [employer] Work Study resources Subjective (08/06/21) -Daughter christos on line: [...] Biochemical and Laboratory Data Conventional/Advanced Testing NutrEval [facility] Date collected: 10/31/2022 Elevated Decreased Oxidative Stress 7 8-OHdG Mitochondrial Dysfunction 7 Magnesium Lactic Acid Isocitric Acid Succinic Acid Malic Acid [place] Imbalance 3 Toxic Exposure 8 Methylation Imbalance [...] Lionel Zero Pascha Recipes -Paleo Hot Chocolate: https://Arav/vegan-hot -chocolate-paleo/ -Keto No Bake Brownie Bites: https://www.ISORG/keto -ct-yckc-gfyamoe-bites/ -Whole Food Fudge: https://Napera Networks/easy-raw -sodkh-qjunc-gyubz/ 2. Continue focus on the SEAMUS food plan principles previously discussed: -Richmond-3 Rich Fish (wild-caught salmon, mackerel, anchovies, sardines, rodrigues): twice per week -Continue grass-fed beef 3-4X/week -Add legumes 3-4X/week Three jamil salad recipe: https://DPSI/class sw-ufmcm-hkcl-salad/ -Add homemade vinaigrette coleslaw or green salad daily Vinegar based coleslaw: https://www.Differential/vine wew-htaxg-rvmklatz/ -Continue nuts/seeds daily I.e. almonds, walnuts, pecans [...] idea below) Resources/Educational Materials Provided: sent through [facility] Adherence Potential to Goals/Care [...] Shelley Mitchell RD documented in this encounter [facility] 04-25-2023 Hospital Discharg e instructions Patient Education 04/25/2023 12:19:15 Urinary Tract Infection, Adult, Fdtu-gb-Pkji Urinary Tract Infection, Adult A urinary tract [...] Follow these instructions at home: Medicines Take bero-tef-izbvrvw and prescription medicines only as told by [...] provider. Document Revised: 05/07/2021 Document Reviewed: 05/07/2021 C-sam Patient Education 2022 Sapato.ru. Follow Up Care 08/08/2022 16:24:54 With:DANIEL BOYER, ELLEN Bell, URL Address: [address] [place] [address] When: Unknown [facility] 02-17-2023 Miscellaneous Notes NUTRITION RESOURCES SENT VIA DhinganaS. Evelyn Flaherty LPN February 17, 2023 8:17 AM documented in this encounter [facility] 02-16-[address] Hernández RD - 02/16/2023 2:20 PM EDT [facility] MEDICINE FOLLOW UP NUTRITION INSTRUCTIONS Nutrition Follow-up: In 6 months with Kasey Hernández RD. Your Prescribed Nutrition Plan: Seamus (Gluten-Free) 1. Continue with Seamus Food Plan (Dairy-Free/Gluten-Free), with the following targets: -Richmond-3 Rich Fish (wild-caught salmon, mackerel, anchovies, sardines, rodrigues): twice per week -Continue grass-fed beef 3-4X/week -Add legumes 3-4X/week Three jamil salad recipe: https://muzu tv.Travelzen.com/class oe-npegc-gzwq-salad/ -Add homemade vinaigrette coleslaw or green salad daily Vinegar based coleslaw: https://www.Grupo Intercros.Travelzen.com/vine xeo-tvaeo-quplmdbu/ -Continue nuts/seeds daily I.e. almonds, walnuts, pecans [...] soup idea below) 2. For bread, use DocbookMD Brand Base SeaDragon Software: https://Marcato Digital Solutions/ (Keto bread near you in [place]) -Avoid starches, canola oil and sugars in [...] Functional Medicine Team (Open M-F 8am-5pm): 1. LivBlendshart is the BEST form of communication to reach the Functional Medicine Team, see test results and request refills. Please allow 72 business hours for a response. Directions for signing up are included in your New Patient Folder. (Or you can go to [email or web address] [email or web address] & [email or web address].[email or web address]. org) 2. For nutrition related questions or concerns, [employer] Work Study message your physician and include Attn: Kasey Hernández RD at the top of the message. UK Work Study messaging is meant to support implementation of [...] Supplements: Supplements can be ordered from the [facility]'s Online Store: https://store.Fabrika Online/#login New patients to the ParStream Shop will need to enter the provider code FUNCTIONAL to register their account. documented in this encounter [facility] 02-15-2023 Note HNO ID: [id number] Author: Kasey Hernández RD Service: ? Author [...] daily in divided doses between meals. (1 ecmezed=153lv) B-Complex Plus (Pure Encapsulations) Take 1 capsule by mouth daily with food. Glutathione (Ameristream) Use 20 pumps daily (1000mg) divided doses [...] OmegaGenics EPA-DHA 2400 (High Concentrate EPA/DHA liquid) (SkillHound) Take one teaspoon (5 ml) 1 times daily with food UT Synergy (Coppertino) antibacterial Take 1 capsule by mouth twice daily. Neuromag ( Coppertino ) 90 ct Take 3 capsules per [...] Would like more print outs today vs. UK Work Study resources Subjective (08/06/21) -Daughter christos on line: [...] Biochemical and Laboratory Data Conventional/Advanced Testing NutrEval [facility] Date collected: Elevated Decreased Oxidative Stress 7 8-OHdG Mitochondrial Dysfunction 7 Magnesium Lactic Acid Isocitric Acid Succinic Acid Malic Acid [place] Imbalance 3 Toxic Exposure 8 Methylation Imbalance [...] verbalized inaccurate/incomplete inform (more content not included)... [facility] 02-15-2023 Note Education (MEDN) ANN MARIE HILL ([id number]) 1940 F Date Time Provider Department 02/15/23 [...] as of 02/16/2023 - PhytoMulti 60s capsules (SkillHound) Take 2 capsules daily, with meals. - Glycine (Pure Encapsulations) Take 1 capsule 3 times daily in divided doses between meals. (1 jjpnkpt=516vw) - B-Complex Plus (Pure Encapsulations) Take 1 capsule by mouth daily with food. - Glutathione (Ameristream) Use 20 pumps daily (1000mg) divided doses [...] OmegaGenics EPA-DHA 2400 (High Concentrate EPA/DHA liquid) (SkillHound) Take one teaspoon (5 ml) 1 times daily with food - UT Synergy (Coppertino) antibacterial Take 1 capsule by mouth twice daily. - Neuromag ( Coppertino ) 90 ct Take 3 capsules per [...] Encounter Status:Closed by KASEY RAE on 02/16/23 [facility] 02-15-2023 History of Presen t illness Narrative [facility] Functional Medicine Nutrition Therapy: Follow-Up Assessment (Individual) IN PERSON Patient Name: Ann Marie Hill Past Medical History: PAST MEDICAL HISTORY Diagnosis Date Alzheimer disease (HCC) HTN (hypertension) Allergies: Ciprofloxacin, Penicillins, and Sulfa (Sulfonamide Antibiotics) Current Medications/Supplements Current Outpatient Medications on File Prior to Visit Medication Sig PhytoMulti 60s capsules (SkillHound) Take 2 capsules daily, with meals. Glycine (Pure Encapsulations) Take 1 capsule 3 times daily in divided doses between meals. (1 mwsjnyu=377zd) B-Complex Plus (Pure Encapsulations) Take 1 capsule by mouth daily with food. Glutathione (Ameristream) Use 20 pumps daily (1000mg) divided doses [...] OmegaGenics EPA-DHA 2400 (High Concentrate EPA/DHA liquid) (SkillHound) Take one teaspoon (5 ml) 1 times daily with food UT Synergy (Coppertino) antibacterial Take 1 capsule by mouth twice daily. Neuromag ( Coppertino ) 90 ct Take 3 capsules per [...] Would like more print outs today vs. [employer] Work Study resources Subjective (08/06/21) -Daughter christos on line: [...] Biochemical and Laboratory Data Conventional/Advanced Testing NutrEval [facility] Date collected: Elevated Decreased Oxidative Stress 7 8-OHdG Mitochondrial Dysfunction 7 Magnesium Lactic Acid Isocitric Acid Succinic Acid Malic Acid [place] Imbalance 3 Toxic Exposure 8 Methylation Imbalance [...] Food Plan (Dairy-Free/Gluten-Free), with the following targets: -Richmond-3 Rich Fish (wild-caught salmon, mackerel, anchovies, sardines, rodrigues): twice per week -Continue grass-fed beef 3-4X/week -Add legumes 3-4X/week Three jamil salad recipe: https://DPSI/class ea-fbbuo-imqf-salad/ -Add homemade vinaigrette coleslaw or green salad daily Vinegar based coleslaw: https://www.Differential/vine xhy-psjbo-rvhqiopj/ -Continue nuts/seeds daily I.e. almonds, walnuts, pecans [...] soup idea below) 2. For bread, use DocbookMD Brand Base Culture: https://Marcato Digital Solutions/ (Keto bread near you in [place]) -Avoid starches, canola oil and sugars in [...] Kasey Hernández RD documented in this encounter [facility] 02-03-2023 Note HNO ID: [id number] Author: Christiana Montero MD Service: ? Author [...] OmegaGenics EPA-DHA 2400 (High Concentrate EPA/DHA liquid) (SkillHound) Take one teaspoon (5 ml) 1 times daily with food UT Synergy (Coppertino) antibacterial Take 1 capsule by mouth twice daily. Brain Misael Capsules (Coppertino) Take 2 tablets by mouth w MEALS. Neuromag ( Coppertino ) 90 ct Take 3 capsules per [...] diet to mix and match - cancelled mate first visit due to not having NutrEval back. [...] 2022 Evita Calderon (more content not included)... [facility] 02-03-2023 History of Presen t [...] OmegaGenics EPA-DHA 2400 (High Concentrate EPA/DHA liquid) (SkillHound) Take one teaspoon (5 ml) 1 times daily with food UT Synergy (Coppertino) antibacterial Take 1 capsule by mouth twice daily. Brain Misael Capsules (Coppertino) Take 2 tablets by mouth w MEALS. Neuromag ( Coppertino ) 90 ct Take 3 capsules per [...] diet to mix and match - cancelled mate first visit due to not having NutrEval back. [...] vitamin deficiency) at this time. Check with mate first on how to improve - stressed importance [...] Phenylacetic,Benzoic, DHPAA Detox Markers Yeast markers Citramalic Richmond 3 Index NOrmal Oxidative stress Lipid 9.7 8OHdg 11 Heavy metals Other Oxalate markers (glyceric, glycolic, oxalic) - all elevated Maritza Nutreval Jun 2020 High Need: Mod Need: All B's Amino acids: Malabsorption markers: Bacterial dysbiosis markers: Fungal dysbiosis markers:arabinose 55 Toxin/detox markers: high Richmond-3 Index: 4.3 Glutathione level:998 Lipid peroxides:8.5 Toxic [...] , estradiol FUNCTIONAL MEDICINE PLAN: Meet with mate first to review NutrEval (with Christos) due to [...] - use of 2 tablespoons of Galdamez Acme Lecithin Powder twice daily Consider Synapsin (compounded nasal spray) to assist for mood / anxiety - notify if wishing to consider. https://Surreal Ink.Travelzen.com/article/m edication-compounding/rg3-synaps ol-jmptx-kqrbo-qinap-mykapq-himc k-rgo-bjsjnvhmk-memory-focus/ Stop the following: Brain Misael Riddle Multi t/d Stop the Functional Nutrition: per mate first Review and implement diet factors recommended through nutritional visit - use your health assistant boys track coach for discussion on how to implement [...] We recommend ordering supplementation online from the [facility] as they are high quality therapeutic supplements. [facility] offers an easy to use, convenient way to order supplementation recommended by your provider through the ParStream Shop. All of the products offered are considered high-quality, and adhere to specific criteria for quality and effectiveness including good manufacturing practices, use of clean products, free of fillers, binders, and other antigens. In addition, we follow third constitution party analysis for independent verification of active ingredients. Get started by following three easy steps: A. Visit the following webpage: https://BrandShield.Fabrika Online/ ParStream Shop Statements on this site have not [...] For issues with your MRN please call [phone] Stress Management InfernoRed Technology Neuro -new technology to use a wearable device to retrain brain and focus on nervous system reduction. To learn more of this technology by going to (zge-qnl-fardq) https://Youtego/ Please look into this Heart Rate Variability [...] one of the Heart Math booklets off AudienceView that fits your 'go to' emotion - [...] --- Frias Program - (John Frias) Https://www.jose rafaelptaNezasa.Travelzen.com/ Finding time for self (no multitasking) at this time to dedicate to breathing / relaxation process. Work on cultivating ted! Future Plans (for provider use): I spent a total of 45 minutes on the date of the service which included preparing to see the patient, zabp-he-dtfz patient care, completing clinical documentation, obtaining and/or reviewing separately obtained history, performing a medically appropriate examination, and ordering medications, tests, or procedures. Christiana Montero MD documented in this encounter [facility] 10-31-2022 Note HNO ID: [id number] Author: Christiana Montero MD Service: ? Author [...] OmegaGenics EPA-DHA 2400 (High Concentrate EPA/DHA liquid) (SkillHound) Take one teaspoon (5 ml) 1 times daily with food UT Synergy (Coppertino) antibacterial Take 1 capsule by mouth twice daily. Brain Misael Capsules (Coppertino) Take 2 tablets by mouth w MEALS. Neuromag ( Coppertino ) 90 ct Take 3 capsules per [...] diet to mix and match - cancelled mate first visit due to not having NutrEval back. [...] of Systems Constitutional: (more content not included)... [facility] 10-31-2022 History of Presen t [...] OmegaGenics EPA-DHA 2400 (High Concentrate EPA/DHA liquid) (SkillHound) Take one teaspoon (5 ml) 1 times daily with food UT Synergy (Coppertino) antibacterial Take 1 capsule by mouth twice daily. Brain Misael Capsules (Coppertino) Take 2 tablets by mouth w MEALS. Neuromag ( Coppertino ) 90 ct Take 3 capsules per [...] diet to mix and match - cancelled mate first visit due to not having NutrEval back. [...] sent labs to [facility] (pending) - home testnig. Frustrated [...] TV, rides likes this. November 30, 2021 Evtia Calderon MD subjective: Pt did the L [...] Fungal dysbiosis markers:arabinose 55 Toxin/detox markers: high Richmond-3 Index: 4.3 Glutathione level:998 Lipid peroxides:8.5 Toxic [...] daylight exposure (Circadian) rhythm. Functional Nutrition: per mate first Review and implement diet factors recommended through nutritional visit - use your health assistant boys track coach for discussion on how to implement [...] We recommend ordering supplementation online from the [facility] as they are high quality therapeutic supplements. Healthy Living Shop [facility] offers an easy to use, convenient way to order supplementation recommended by your provider through the Supply Vision Living Shop. All of the products offered are considered high-quality, and adhere to specific criteria for quality and effectiveness including good manufacturing practices, use of clean products, free of fillers, binders, and other antigens. In addition, we follow third constitution party analysis for independent verification of active ingredients. Get started by following three easy steps: A. Visit the following webpage: https://BrandShield.Fabrika Online/ ParStream Shop Statements on this site have not [...] For issues with your MRN please call [phone] Stress Management [place] Neuro -new technology to use a wearable device to retrain brain and focus on nervous system reduction. To learn more of this technology by going to (gft-qqe-gbbnb) https://Youtego/ Please look into this Heart Rate Variability [...] one of the Heart Math booklets off AudienceView that fits your 'go to' emotion - [...] horowitz-grace/ --- Frias Program - (John Frias) Https://www.guptaNezasa.Travelzen.com/ Finding time for self (no multitasking) at this time to dedicate to breathing / relaxation process. Work on cultivating ted! Future Plans (for provider use): 1. GI Effects? 2. [place] Metals? I spent a total of 30 minutes on the date of the service which included preparing to see the patient, ngrd-dr-xtgm patient care, completing clinical documentation, obtaining and/or reviewing separately obtained history, performing a medically appropriate examination, counseling and educating the patient/family/caregiver, ordering medications, tests, or procedures, and communicating with other HCPs (not separately reported). Christiana Montero MD documented in this encounter [facility] 10-28-2022 Miscellaneous Notes Spoke with patient's regarding NE urine collection for Monday's lab appointment. Evelyn Flaherty LPN October 28, 2022 12:17 PM documented in this encounter [facility] 10-06-2022 Note PROCEDURE: XR HIP RT [...] authenticated by: ALEXIS CAAL Date: 2022-10-06 07:37 [facility] 10-06-2022 Note PROCEDURE: XR HIP RT [...] authenticated by: ALEXIS CAAL Date: 2022-10-06 07:37 [facility] 08-08-2022 Hospital Discharg e instructions Patient [...] Treatment for this condition includes: Antibiotic medicine. Haad-efo-qhaxjfu medicines to treat discomfort. Drinking enough water [...] Follow these instructions at home: Medicines Take ymzp-yum-vfxoawb and prescription medicines only as told by [...] 07/05/2006 Document Revised: 09/12/2019 Document Reviewed: 04/04/2019 C-sam Patient Education 2020 [email or web address]. Follow Up Care 01/31/2022 15:18:00 With:GENO WATTS, Kunal Heller, URL Address: [facility] [address], [place] [id number]- [id number] When:04/08/2023 [facility] 07-25-2022 Note HNO ID: [id number] Author: Christiana Montero MD Service: ? Author [...] saccharomyces boullardi 2 hrs away from nystatin/candibactin/diflucan. Sknk-Qtxz-DW (EquityNet) Take 1 capsule, 2 times daily with 4 oz or more of water. Glutathione (Ameristream) - Liver support/detox Use 8 pumps daily , divided doses through out the day. (2 pumps = 100 mg Glutathione). Work up slowly to the higher dose. B-Complex Plus (Pure Encapsulations) Take 2 capsules by mouth daily with food. Multi t/d 60 ct. (Pure Encapsulations) - multivitamin Take 1 capsule by mouth twice daily with meals. OmegaGenics EPA-DHA 2400 (High Concentrate EPA/DHA liquid) (SkillHound) Take one teaspoon (5 ml) 1 times daily with food UT Synergy (Coppertino) antibacterial Take 1 capsule by mouth twice daily. Brain Misael Capsules (Coppertino) Take 2 tablets by mouth w MEALS. Neuromag ( Coppertino ) 90 ct Take 3 capsules per [...] no vitals file (more content not included)... [facility] 07-25-2022 Instructions Christiana Montero MD - 07/25/2022 12:38 PM EDT FUNCTIONAL MEDICINE PLAN: Mold testing - will review in coming days your recent test to determine if binders are beneficial at this time. I may recommend use of binder (remove of mold) depending on testing. NutrEval - will send to your residence. (iPerceptions blood/urine kit to assess for nutritional stores)---> [...] as nutritional evaluation) . Functional Nutrition: Per Permit Specialist Review and implement diet factors recommended through nutritional visit - use your health assistant boys track coach for discussion on how to implement Supplement Support Review supplements - Based upon your lab assessments we may further recommend you consider additional items to these to supplement. No orders of the defined types were placed in this encounter. REMINDERS: Ordering Supplementation: We recommend ordering supplementation online from the [facility]. It is felt these are high quality therapeutic supplements. Healthy Living Shop (https://store.Prospex Medical) [facility] offers an easy to use, convenient way to order supplementation recommended by your provider through the Supply Vision Living Shop. All of the products offered are considered high-quality, and adhere to specific criteria for quality and effectiveness including good manufacturing practices, use of clean products, free of fillers, binders, and other antigens. In addition, we follow third constitution party analysis for independent verification of active ingredients. Get started by following three easy steps: A. Visit the webpage: https://BrandShield.Fabrika Online/ JustParts Statements on this site have not been [...] For issues with your MRN please call [phone] Stress Management InfernoRed Technology Neuro -new technology to use a wearable device to retrain brain and focus on nervous system reduction. To learn more of this technology by going to (olc-jgd-oghcw) https://Youtego/ Behavioral Health Therapist: If I recommended counseling [...] one of the Heart Math booklets off AudienceView that fits your 'go to' emotion - [...] Eduardo Gordon. (also has an poncho on YingYang / Wardrobe Housekeeper) Insight Meditation Timer- (Free)-Great all-around poncho to [...] lor-grace/ --- Frias Program - (John Frias) Https://www.raeNezasa.Travelzen.com/ Finding time for yourself (no multitasking) at this time to dedicate to breathing / relaxation process. Work on cultivating ted! You deserve it! documented in this encounter [facility] 07-25-2022 History of Presen t illness Narrative [...] saccharomyces boullardi 2 hrs away from nystatin/candibactin/diflucan. Eajh-Ybpk-BW (EquityNet) Take 1 capsule, 2 times daily with 4 oz or more of water. Glutathione (Ameristream) - Liver support/detox Use 8 pumps daily , divided doses through out the day. (2 pumps = 100 mg Glutathione). Work up slowly to the higher dose. B-Complex Plus (Pure Encapsulations) Take 2 capsules by mouth daily with food. Multi t/d 60 ct. (Pure Encapsulations) - multivitamin Take 1 capsule by mouth twice daily with meals. OmegaGenics EPA-DHA 2400 (High Concentrate EPA/DHA liquid) (SkillHound) Take one teaspoon (5 ml) 1 times daily with food UT Synergy (Coppertino) antibacterial Take 1 capsule by mouth twice daily. Brain Misael Capsules (Coppertino) Take 2 tablets by mouth w MEALS. Neuromag ( Coppertino ) 90 ct Take 3 capsules per [...] NutrEval - will send to your residence. (iPerceptions blood/urine kit to assess for nutritional stores)---> [...] as nutritional evaluation) . Functional Nutrition: Per Permit Specialist Review and implement diet factors recommended through nutritional visit - use your health assistant boys track coach for discussion on how to implement Supplement Support Review supplements - maintain your B support at this time and Brain Misael only. Wait on Multivitamin until you have completed NutrEval for 2021. REMINDERS: Ordering Supplementation: We recommend ordering supplementation online from the [facility]. It is felt these are high quality therapeutic supplements. JustParts (https://BrandShield.Prospex Medical) [facility] offers an easy to use, convenient way to order supplementation recommended by your provider through the JustParts. All of the products offered are considered high-quality, and adhere to specific criteria for quality and effectiveness including good manufacturing practices, use of clean products, free of fillers, binders, and other antigens. In addition, we follow third constitution party analysis for independent verification of active ingredients. Get started by following three easy steps: A. Visit the webpage: [email or web address].Fabrika Online/ JustParts Statements on this site have not been [...] For issues with your MRN please call [phone] Stress Management InfernoRed Technology Neuro -new technology to use a wearable device to retrain brain and focus on nervous system reduction. To learn more of this technology by going to (utp-bah-ysmqw) https://Youtego/ Behavioral Health Therapist: If I recommended counseling [...] one of the Heart Math booklets off AudienceView that fits your 'go to' emotion - [...] Eduardo Gordon. (also has an poncho on YingYang / Google CellVir) Insight Meditation Timer- (Free)-Great all-around poncho to [...] fully) . --- Polyvagal theory (Connor Ybarra) https://www.stephenNet Zero AquaLife.com/ --- Dynamic Neural Retraining System - (Ketty Christensen) https://retrainingthebrain.com/a chioie-hopper/ --- Frias Program - (John Frias) Https://www.My Online CampptaNezasa.Travelzen.com/ Finding time for yourself (no multitasking) at this time to dedicate to breathing / relaxation process. Work on cultivating ted! You deserve it! I spent a total of 60 minutes on the date of the service which included preparing to see the patient, avpg-af-wnnd patient care, completing clinical documentation, obtaining and/or reviewing separately obtained history, counseling and educating the patient/family/caregiver, ordering medications, tests, or procedures, independently interpreting results (not separately reported), and communicating results to the patient/family/caregiver. Christiana Montero MD documented in this encounter [facility] 03-18-2022 Instructions Evita Calderon MD - 03/18/2022 [...] encounter. I recommend the supplements from the [facility] Liberata Online Store at https://BrandShield.Fabrika Online/ as we have thoroughly evaluated the research and use only highest quality supplements. Please use code: functional. Future Plans: Mold Memory Follow up: Please schedule a follow up visit with the following Caregivers: Provider: [address] Montero in person LIFESTYLE PRESCRIPTION Functional Nutrition: Per prepress manager Sleep: Sleep goal for most adults is [...] Health Coaching: Please consider scheduling with our [place] [facility] health coaches for a phone or virtual visit for accountability, goal setting and help with behavior job change crew member the next 6-8 weeks to be successful with your goals. [phone]. Smart phone apps to begin a meditative [...] on your diet plan discussed with our prepress manager, allowing for gentle detoxification and decreasing inflammation - while we are gathering your lab results and combining those with your complete history to formulate a very personalized treatment plan. LAB results: Due to the complexity of the testing performed, we are not able to review labs via Join The Playerst or over the phone, but please know, [...] Also make sure to schedule with the prepress manager (this will not happen automatically) as you [...] appointment. You can access them on the iPerceptions website and it can be beneficial if you review them prior to your next visit. www.Pictrition App.net. Read about NutrEval if this was ordered. documented in this encounter [facility] 03-18-2022 History of Presen t illness Narrative [...] saccharomyces boullardi 2 hrs away from nystatin/candibactin/diflucan. Lrmh-Bwhn-GQ ([employer] Labs) Take 1 capsule, 2 times daily with 4 oz or more of water. Glutathione (Ameristream) - Liver support/detox Use 8 pumps daily , divided doses through out the day. (2 pumps = 100 mg Glutathione). Work up slowly to the higher dose. B-Complex Plus (Pure Encapsulations) Take 2 capsules by mouth daily with food. Multi t/d 60 ct. (Pure Encapsulations) - multivitamin Take 1 capsule by mouth twice daily with meals. OmegaGenics EPA-DHA 2400 (High Concentrate EPA/DHA liquid) (SkillHound) Take one teaspoon (5 ml) 1 times daily with food UT Synergy (Coppertino) antibacterial Take 1 capsule by mouth twice daily. Brain Misael Capsules (Coppertino) Take 2 tablets by mouth w MEALS. Neuromag ( Coppertino ) 90 ct Take 3 capsules per [...] 22.31 kg/(m^2). Bioelectrical Impedance Analysis Results by [employer] Recent Results from: 03/18/22 at 13:34 [...] Fungal dysbiosis markers:arabinose 55 Toxin/detox markers: high Richmond-3 Index: 4.3 Glutathione level:998 Lipid peroxides:8.5 Toxic [...] encounter. I recommend the supplements from the [facility] Supply [facility] Store Online Store at https://store.Fabrika Online/ as we have thoroughly evaluated the research and use only highest quality supplements. Please use code: functional. Future Plans: Follow up: Please schedule a follow up visit with the following Caregivers: Provider: [address] Montero in person LIFESTYLE PRESCRIPTION Functional Nutrition: Per prepress manager Sleep: Sleep goal for most adults is [...] Health Coaching: Please consider scheduling with our [place] [facility] health coaches for a phone or virtual visit for accountability, goal setting and help with behavior job change crew member the next 6-8 weeks to be successful with your goals. [phone]. Smart phone apps to begin a meditative [...] on your diet plan discussed with our prepress manager, allowing for gentle detoxification and decreasing inflammation - while we are gathering your lab results and combining those with your complete history to formulate a very personalized treatment plan. LAB results: Due to the complexity of the testing performed, we are not able to review labs via Join The Playerst or over the phone, but please know, [...] Also make sure to schedule with the prepress manager (this will not happen automatically) as you [...] appointment. You can access them on the iPerceptions website and it can be beneficial if you review them prior to your next visit. www.Pictrition App.net. Read about NutrEval if this was ordered. *Evita Calderon MD I spent a total of 30 minutes on the date of the service which included rkbr-hj-gygr patient care, completing clinical documentation, obtaining and/or reviewing separately obtained history, performing a medically appropriate examination, counseling and educating the patient/family/caregiver and ordering medications, tests, or procedures. documented in this encounter [facility] 03-02-2022 Instructions EMMA Smalls - 03/02/2022 11:40 [...] in more information, contact our office at [phone]. We are happy to hear that Orestes [...] providers located near your home: Sarah Morataya LEASING SPECIALIST & Adriana Andrews LEASING SPECIALIST [facility], [address]. ([phone]). When there is a diagnosis of dementia, no matter the type, we encourage families to educate themselves, learn communication tips, and learn ways to adjust expectations over time. There are many resources available online. Three excellent resources are: The Alzheimer's Association (web site: alz.org/corado) available 24 hours a day, 7 days per week. Contact: Local: ; Toll free: [phone] We recommend family explore the Alzheimer's Association website to learn more about managing behavioral symptoms. You can click on the following tabs to gather more information on managing specific behaviors. Click on HELP AND SUPPORT -> CAREGIVING -> STAGES AND BEHAVIOR Family Caregiver [place] (web site: Caregiver.org) [employer]-- a secure online solution for quality information, support, and resources for family caregivers. Contact: Toll-free number: [phone] Alzheimers.gov Find Alzheimer disease and related dementias [...] additional information is needed, please call our director social service EMMA Smalls at [phone]. As per our discussion of advanced directives, we understand you have these documents in place which is excellent. We have obtained a copy that will be scanned into your medical record. We would like you to return to [facility] for a follow up visit in 9-12 months. Our office can be reached by calling [phone] Option 1. Sincerely, MD Philomena Hampton RN Tangy Kirtz, [facility] EMMA Smalls documented in this encounter [facility] 03-02-2022 Nurse Note Ann Marie Hill is a 81 year old year old right handed woman Accompanied by: spouse. 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 Pt states that she is here for a check-up Vital Signs: BP 115/53 (BP Site: Left Arm, BP Position: Sitting, BP Cuff Size: Regular Adult) Pulse 75 Wt 56.6 kg (124 lb 12.8 oz) BMI 22.83 kg/m Philomena Mondragon RN documented in this encounter [facility] 03-02-2022 History of Presen t illness Narrative Reason for Consult: Alzheimer's dementia I had the pleasure of seeing this 81 year old year old female at the [facility]. The patient is referred by Evita Yinlid chris [place] [id number] Patient is accompanied by and information obtained [...] are local; other two sons live in [place] and [place]). Housing: Lives with spouse Pt is occasionally left home alone if she is sleeping Agencies involved: Caregiver from [facility] visits once per week to stay with the pt while spouse runs errands. [employer] friends also assist. ADL'S: Independent with dressing, [...] saccharomyces boullardi 2 hrs away from nystatin/candibactin/diflucan. Wdid-Lmks-PA (EquityNet) Take 1 capsule, 2 times daily with 4 oz or more of water. Glutathione (Ameristream) - Liver support/detox Use 8 pumps daily , divided doses through out the day. (2 pumps = 100 mg Glutathione). Work up slowly to the higher dose. B-Complex Plus (Pure Encapsulations) Take 2 capsules by mouth daily with food. Multi t/d 60 ct. (Pure Encapsulations) - multivitamin Take 1 capsule by mouth twice daily with meals. OmegaGenics EPA-DHA 2400 (High Concentrate EPA/DHA liquid) (SkillHound) Take one teaspoon (5 ml) 1 times daily with food UT Synergy (Coppertino) antibacterial Take 1 capsule by mouth twice daily. Brain Misael Capsules (Coppertino) Take 2 tablets by mouth w MEALS. Neuromag ( Coppertino ) 90 ct Take 3 capsules per [...] which included preparing to see the patient, qefg-dm-ugnn patient care, performing a medically appropriate examination, completing clinical documentation, and on counseling/ eductaing the patient and the family. Han Britton MD documented in this encounter [facility] 01-31-2022 Hospital Discharg e instructions Patient Education [...] reconstructed. Follow these instructions at home: Take wjzg-uik-fxgmbkx and prescription medicines only as told by [...] 10/21/2016 Document Revised: 05/08/2019 Document Reviewed: 05/08/2019 C-sam Patient Education 2020 [email or web address]. Follow Up Care 08/02/2021 15:26:51 With:GENO WATTS, Kunal Heller, URL Address: [facility] [address] , [place] [address]- [phone] When: Unknown [facility] Evaluation + Plan note Future Appointments Appointment Date:08/08/2022 02:45:00 PM Scheduled Provider:Kunal LORA MD Location:[facility] Appointment Type:URO Office Visit [facility] Evaluation + Plan note Future Appointments Appointment Date:08/10/2022 08:45:00 AM Scheduled Provider: Location:[facility] Appointment Type:URO Nurse Visit Appointment Date:04/17/2023 02:30:00 PM Scheduled Provider:Kunal LORA MD Location:[facility] Appointment Type:URO Office Visit [facility] Evaluation + Plan note Future Appointments Appointment Date:04/17/2023 02:30:00 PM Scheduled Provider:Kunal LORA MD Location:[facility] Appointment Type:URO Office Visit [facility] Evaluation + Plan note Future Appointments Appointment Date:04/24/2023 02:15:00 PM Scheduled Provider:Kunal LORA MD Location: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 Alzheimer's dementia with behavioral disturbance, unspecified timing of dementia onset documented in this encounter [facility] note* Diagnosis Memory change- Primary Memory [...] behavioral disturbance (HCC) [facility] Diagnosis 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 Unspecified vitamin B deficiency Chemical exposure Contact with and (suspected) exposure to other potentially hazardous chemicals Poor diet Unspecified nutritional deficiency Impaired nutrient utilization [facility] Diagnosis 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 Unspecified vitamin B deficiency Poor diet Unspecified nutritional deficiency Dietary counseling and surveillance Dietary surveillance and counseling [facility] Diagnosis Memory change- Primary Memory loss Sundowning Reactive confusion Poor diet Unspecified nutritional deficiency Chemical exposure Contact with and (suspected) exposure to other potentially hazardous chemicals [facility] 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 Sundowning Reactive confusion Dietary counseling and surveillance Dietary surveillance and counseling [facility] Diagnosis Carotid stenosis, bilateral Occlusion and stenosis of carotid artery without mention of cerebral infarction Benign hypertension Essential hypertension, benign documented in this encounter [facility] Work Phone: Evaluation note* Diagnosis Carotid stenosis, bilateral Occlusion and stenosis of carotid artery without mention of cerebral infarction Benign hypertension Essential hypertension, benign documented in this encounter [facility] Work Phone: History of Present [...] reviewed with her her recent lab work -[facility]ad 250 DO Work Phone: History of Present [...] me change in cardiac status or symptoms [facility]ad 250 DO Work Phone: History of Present [...] try to retrieve her recent lab work [facility]-[place] 250 DO Work Phone: Hospital course Narrative No data available for this section [facility] Hospital Discharge instructions No data available for this section [facility] progress note No data available for this section [facility] Summary Purpose Family History No Family History [...] FoundDocuments on File Type Date 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 Advance Directive(s) 03/02/2022 2:05 PM Ad torres Directive Documents on File Type Date 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 Advance Directive(s) 03/02/2022 2:05 PM [...] duplex bilateral Mary Anne Snow MD [address] [address] Referral ID Status Reason Start Date Expiration Date Visits Requested Visits Authorized [id number] Authorized Perform Procedure 06/25/2023 12/22/2023 1 1 Specialty Diagnoses / Procedures Referred By Contac t Referred To Contact Psychiatry / ADULT PSYCHIATRY Diagnoses Alzheimer's dementia with behavioral disturbance, unspecified timing of dementia onset Procedures CONSULT TO PSYCHIATRY OFFICE/OUTPATIENT [facility] 60-74 MINUTES Evita Calderon MD [address] [place] [address] Hemal Hopper MD [address] [place] [address] Referral ID Status Reason Start Date Expiration Date Visits Requested Visits Authorized [id number] Pending Review PCP Requested Referral 06/17/2022 06/17/2023 1 1 Specialty Diagnoses / Procedures Referred By Contac t Referred To Contact [facility] Diagnoses Cognitive communication deficit Procedures CONSULT TO SPEECH THERAPY OFFICE/OUTPATIENT [facility] 60-74 MINUTES Han Britton MD [address] [place] [address] [facility] [place] [address] Referral ID Status Reason Start Date Expiration Date Visits Requested Visits Authorized [id number] Pending Review Auto-Generat ed Referral 03/02/2022 03/02/2023 1 1 Additional Source Comments INFORMATION SOURCE (unrecogn ized section and content) DATE CREATED AUTHOR 04/03/2018 [facility] Healthcare DATE CREATED AUTHOR AUTHOR'S ORGANIZ ATION 06/25/2020 [facility] DATE CREATED AUTHOR AUTHOR'S ORGANIZ ATION 11/07/2022 [facility] DATE CREATED AUTHOR AUTHOR'S ORGANIZ ATION 05/22/2023 [facility] DATE CREATED AUTHOR AUTHOR'S ORGANIZ ATION 06/07/2023 [facility] DATE CREATED AUTHOR AUTHOR'S ORGANIZ ATION 06/07/2023 [facility] DATE CREATED AUTHOR AUTHOR'S ORGANIZ ATION 07/23/2023 [facility] ical Center DATE CREATED AUTHOR AUTHOR'S ORGANIZ ATION 09/22/2023 [facility] dical Specialists EPIC Source Comments (unrecognize d section and content) In the event this informatio n is protected by the Federal Confidentiality of Alcohol and Drug Abuse Patient Records regulations: The Federal rules restrict any use of the information to criminally investigate or prosecute any alcohol or drug abuse patient.[facility] the event this information is protected by the Federal Confidentiality of Alcohol and Drug Abuse Patient Records regulations: The Federal rules restrict any use of the information to criminally investigate or prosecute any alcohol or drug abuse patient.[facility] the event this information is protected by the Federal Confidentiality of Alcohol and Drug Abuse Patient Records regulations: The Federal rules restrict any use of the information to criminally investigate or prosecute any alcohol or drug abuse patient.[facility] the event this information is protected by the Federal Confidentiality of Alcohol and Drug Abuse Patient Records regulations: The Federal rules restrict any use of the information to criminally investigate or prosecute any alcohol or drug abuse patient.[facility] the event this information is protected by the Federal Confidentiality of Alcohol and Drug Abuse Patient Records regulations: The Federal rules restrict any use of the information to criminally investigate or prosecute any alcohol or drug abuse patient.[facility] the event this information is protected by the Federal Confidentiality of Alcohol and Drug Abuse Patient Records regulations: The Federal rules restrict any use of the information to criminally investigate or prosecute any alcohol or drug abuse patient.[facility] the event this information is protected by the Federal Confidentiality of Alcohol and Drug Abuse Patient Records regulations: The Federal rules restrict any use of the information to criminally investigate or prosecute any alcohol or drug abuse patient.[facility] the event this information is protected by the Federal Confidentiality of Alcohol and Drug Abuse Patient Records regulations: The Federal rules restrict any use of the information to criminally investigate or prosecute any alcohol or drug abuse patient.[facility] the event this information is protected by the Federal Confidentiality of Alcohol and Drug Abuse Patient Records regulations: The Federal rules restrict any use of the information to criminally investigate or prosecute any alcohol or drug abuse patient.[facility] the event this information is protected by the Federal Confidentiality of Alcohol and Drug Abuse Patient Records regulations: The Federal rules restrict any use of the information to criminally investigate or prosecute any alcohol or drug abuse patient.[facility] the event this information is protected by the Federal Confidentiality of Alcohol and Drug Abuse Patient Records regulations: The Federal rules restrict any use of the information to criminally investigate or prosecute any alcohol or drug abuse patient.[facility] Hospital[facility] the event this information is protected by the Federal Confidentiality of Alcohol and Drug Abuse Patient Records regulations: The Federal rules restrict any use of the information to criminally investigate or prosecute any alcohol or drug abuse patient.[facility] the event this information is protected by the Federal Confidentiality of Alcohol and Drug Abuse Patient Records regulations: The Federal rules restrict any use of the information to criminally investigate or prosecute any alcohol or drug abuse patient.[facility] the event this information is protected by the Federal Confidentiality of Alcohol and Drug Abuse Patient Records regulations: The Federal rules restrict any use of the information to criminally investigate or prosecute any alcohol or drug abuse patient.[facility] Hospital[facility] the event this information is protected by the Federal Confidentiality of Alcohol and Drug Abuse Patient Records regulations: The Federal rules restrict any use of the information to criminally investigate or prosecute any alcohol or drug abuse patient.[facility] Hospital[facility] the event this information is protected by the Federal Confidentiality of Alcohol and Drug Abuse Patient Records regulations: The Federal rules restrict any use of the information to criminally investigate or prosecute any alcohol or drug abuse patient.[facility] the event this information is protected by the Federal Confidentiality of Alcohol and Drug Abuse Patient Records regulations: The Federal rules restrict any use of the information to criminally investigate or prosecute any alcohol or drug abuse patient.[facility] Hospital[facility] the event this information is protected by the Federal Confidentiality of Alcohol and Drug Abuse Patient Records regulations: The Federal rules restrict any use of the information to criminally investigate or prosecute any alcohol or drug abuse patient.[facility] Care Teams (unrecognized sec tion and content) Mixer And Scaler Relationship Specialty Start Date End Date Meng Prater MD [address] [id number] PCP - General Family Practice 07/15/20 Mixer And Scaler Relationship Specialty Start Date End Date Meng Prater MD [address] [place] [address] PCP - General Family Practice 07/15/20 Mixer And Scaler Relationship Specialty Start Date End Date Meng Prater MD [address] [place] [address] PCP - General Family Practice 07/15/20 Mixer And Scaler Relationship Specialty Start Date End Date Meng Prater MD [address] [place] [address] PCP - General Family Practice 07/15/20 Mixer And Scaler Relationship Specialty Start Date End Date Meng Prater MD [address] [id number] PCP - General Family Medicine 07/15/20 Mixer And Scaler Relationship Specialty Start Date End Date Meng Prater MD [address] [place] [address] PCP - General Family Medicine 07/15/20 Mixer And Scaler Relationship Specialty Start Date End Date Meng Prater MD [address] [id number] PCP - General Family Medicine 07/15/20 Mixer And Scaler Relationship Specialty Start Date End Date Meng Prater MD [address] [place] [address] PCP - General Family Medicine 07/15/20 Mixer And Scaler Relationship Specialty Start Date End Date Meng Prater MD [address] [id number] PCP - General Family Medicine 07/15/20 Mixer And Scaler Relationship Specialty Start Date End Date Meng Prater MD PCP - General Family Medicine 07/15/20 Mixer And Scaler Relationship Specialty Start Date End Date Meng Prater MD PCP - General Family Medicine 07/15/20 Mixer And Scaler Relationship Specialty Start Date End Date Meng Prater MD PCP - General Family Medicine 07/15/20 Mixer And Scaler Relationship Specialty Start Date End Date Meng Prater MD PCP - General Family Medicine 07/15/20 Mixer And Scaler Relationship Specialty Start Date End Date Meng Prater MD PCP - General Family Medicine 07/15/20 Mixer And Scaler Relationship Specialty Start Date End Date Meng Prater MD PCP - General Family Medicine 07/15/20 Mixer And Scaler Relationship Specialty Start Date End Date Meng Prater MD PCP - General [facility] Medicine 07/15/20 Mixer And Scaler Relationship Specialty Start Date End Date Meng Prater MD [address] [place] [address] PCP - General 09/11/19 Mixer And Scaler Relationship Specialty Start Date End Date Meng Prater MD [address] [place] [address] PCP - General 09/11/19 Reason for Visit (unrecogniz ed section and content) Reason Comments New Patient Evaluation Specialty Diagnoses / Procedures Referred By Contac t Referred To Contact Neurology / NEUROLOGY Diagnoses Alzheimer's dementia with behavioral disturbance, unspecified timing of dementia onset (HCC) Procedures CONSULT TO NEUROLOGY NEW PATIENT VISIT LEVEL 5 Evita Calderon MD [address] [place] [address] Neur [facility]ly [facility] [address] [place] [address] Referral ID Status Reason Start Date Expiration Date Visits Requested Visits Authorized [id number] Pending Review PCP Requested Referral 04/01/2021 04/01/2022 1 1 Reason Comments Established Patient Reason Comments Established Patient Memory Loss New Patient Reason Comments Patient Question Reason Comments Appointment Specialty Diagnoses / Procedures Referred By Contcorina t Referred To Contact Cardiology Diagnoses Carotid stenosis, bilateral Benign hypertension Procedures Vascular US carotid artery duplex bilateral Mary Anne Snow MD [address] [facility] 2, [address] [address] Referral ID Status Reason Start Date Expiration Date Visits Requested Visits Authorized [id number] Authorized Perform Procedure 06/25/2023 12/22/2023 1 1 [...] BE BASED ON THE PRIMARY CLINICAL RECORDS. [facility]. provides no warranty or guarantee of the accuracy or completeness of information in this document.
[2023-10-12 16:23] LABS: Basophils Percent Auto 0.2 % (0.2-2.0); Eosinophils Absolute Auto 0.2 10^3/uL (0.0-0.7); Eosinophils Percent Auto 1.3 % (0.9-7.0); Hematocrit 35.5 % (36.0-48.0); Hemoglobin 11.8 g/dL (12.0-16.0); Immature Granulocytes Abs Auto 0.07 10^3/uL (0.00-0.03); Immature Granulocytes Pct Auto 0.4 % (0.0-0.5); Lymphocytes Percent Auto 12.1 % (20.5-60.0); Mean Corpuscular HGB Conc 33.2 g/dL (29.9-35.2); Mean Corpuscular Hemoglobin 31.7 pg (26.7-34.0); Mean Corpuscular Volume 95.4 fL (81.0-99.0); Mean Platelet Volume 9.2 fL (9.5-13.5); Neutrophils Absolute Auto 13.1 10^3/uL (1.4-6.5); Platelet Count 274 10^3/uL (150-450); Red Blood Count 3.72 10^6/uL (4.20-5.40); Red Cell Distribution Width 13.1 % (11.0-15.0); White Blood Count 16.4 10^3/uL (4.0-11.0)
[2023-10-12 16:25] LABS: Bilirubin Urine NEGATIVE (NEGATIVE); Blood Urine TRACE-I (NEGATIVE); Clarity Urine CLOUDY (CLEAR); Color Urine YELLOW (YELLOW); Glucose Urine UA NEGATIVE (NEGATIVE); Ketones Urine TRACE mg/dL (NEGATIVE); Leukocyte Esterase Urine SMALL (NEGATIVE); Nitrite Urine NEGATIVE (NEGATIVE); Protein Urine 30 mg/dL (NEG/TRACE)
[2023-10-12 16:32] LABS: Bacteria Urine LARGE #/HPF (NONE SEEN); Cast Seen? NONE SEEN #/LPF (NONE SEEN); Crystals Seen? None Seen #/HPF (None Seen); Mucus Urine NONE SEEN (NONE SEEN); Squamous Epithelial Cell Urine RARE #/LPF (NONE/RARE); WBC Urine 20-50 #/HPF (NONE SEEN)
--- NOTE | 2023-10-12 16:37 | XR_ITS ---
The [address] [address] Patient Name: ROBERTO HILL MRN: [id number] date: 1940 Sex: F Assigned Patient Location: ER Current Patient Location: ED.MAIN Accession/Order Number: [id number] Exam Date: 10/12/2023 16:40 Report Date: 10/12/2023 17:23 At the request of: ROCIO MORSE Procedure: XR chest 1V EXAM: XR chest 1V HISTORY: weak COMPARISON: 10/07/2023 TECHNIQUE: Chest X-ray AP, 1 view FINDINGS: Support devices: None. Lungs/pleura: No pneumothorax. Persistent hazy opacity of the left lung base, representing atelectasis and/or consolation. Heart and mediastinum: Normal contours. Bones: No acute abnormality identified. XR/XR chest 1V Impression: Persistent hazy opacity of the left lung base, representing atelectasis and/or consolation. Electronically authenticated by: ANAID KEBEDE Date: 10/12/2023 17:23
[2023-10-12 16:40] LABS: Anion Gap 12.4; BUN Creatinine Ratio 23.1; Calcium 9.6 mg/dL (8.5-10.1); Carbon Dioxide 28.6 mmol/L (21.0-32.0); Chloride 95 mmol/L (98-107); Estimated GFR (African America 46 (>=60); Estimated GFR (Non-African Ame 38 (>=60); Glucose 132 mg/dL (74-106); Sodium 133 mmol/L (136-145); Troponin I High Sensitivity 13.8 pg/mL (4.0-51.3)
[2023-10-12] MEDS: CEFTRIAXONE 1,000 MG in 0.9 % SODIUM CHLORIDE 50 ML 100 MG IV (17:08)
[2023-10-12] MEDS: AZITHROMYCIN 500 MG in 0.9 % SODIUM CHLORIDE 250 ML 250 MG IV (18:07)
--- OUTSIDE RECORDS SUMMARY | 2023-10-12 18:34 | XMS_ITS | CCD ---
Author Name Unknown Address [address] [place] [address] Organization [facility] Care Team Providers Care Firer Low Pressure Name Role Phone TRABTALA IRBYF Unavailable Unavailable GWENDOLYN MOURDEONTEF Unavailable Unavailable Meng Prater Unavailable Unavailable Unavailable Meng Prater MD Primary Care Provider [phone] Meng Prater Primary Care Physician Meng Prater MD Primary Care Provider [phone] Meng Prater MD Primary Care Provider [phone] DR MENG PRATER Admitting Unavailable JOSI, DR [...] Unavailable Meng Prater MD Primary Care Provider [phone] MENG PRATER Primary Care Unavailable MENG [...] Meng Prater MD Primary Care Provider [phone] MAUREEN BALLESTEROS Attending Unavailable MAUREEN BALLESTEROS Referring Unavailable Allergies Allergy Classification Reported Allergen(s) Allergy Type Date of Onset Reaction(s) Facility (14 sources) Penicillins; Translations: [Penicillins] Allergy to drug (finding) 3 Unknown (qualifier value) [place] [address] DO Work Phone: (5 sources) Sulfamethoxazole; Translations: [sulfa] Drug Allergy Rash [facility] 250 DO Work Phone: (19 sources) Ciprofloxacin; Translations: [CIPROFLOXACIN] Drug Allergy 9 [facility] (3 sources) Penicillins Drug Allergy 3 [facility] (19 sources) Sulfonamides (Antibiotic); Translations: [SULFA (SULFONAMIDE ANTIBIOTICS)] Drug Allergy 9 Rash [facility] (8 sources) Sulfonamides (Antibiotic); Translations: [sulfa drugs] Drug allergy Unknown (qualifier value) [facility] (15 sources) Penicillins Drug Allergy 3 [facility] (7 sources) NITROFURANTOIN, MACROCRYSTALS / Nitrofurantoin, Monohydrate; Translations: [nitrofurantoin] Drug Allergy 1 itching [facility] (1 source) Ciprofloxacin Drug Allergy [facility] (1 source) Penicillins Drug allergy (disorder) 3 [facility] (1 source) Sulfonamides (Antibiotic) Drug allergy (disorder) [facility] Medications Current Medications Medication Drug Class(es) [...] by mouth once daily. Brain Misael Capsules (Autowatts) (12 sources) Start: 07-08-2020 End: 02-04-2023 take 2 tablets by mouth at mealtime Brain Misael Capsules (Autowatts) Take 2 tablets by mouth w MEALS. 0 07/08/2020 02/04/2023 Discontinued Start: 07-08-2020 take [address] [facility] at mealtime Brain Misael Capsules (Autowatts) Take 2 tablets by mouth w MEALS. 0 07/08/2020 Active Comment on above: Take [address] [facility] w MEALS. Clobetasol (7 sources) Corticosteroid Start: [...] by mo uth twice daily with meals. Hereford-3 350 mg oral capsule (7 sources) Start: 11-23-2020 take 1 capsule by mouth once daily Hereford-3 350 mg oral capsule mg cap(s), Oral, [...] daily. 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 (2 pumps = 100 mg Glutathione) 0 02/04/2023 Active Comment on above: Use 20 pumps daily ( 1000mg) divided doses through out the day. (2 pumps = 100 mg Glutathione) Glutathione (Symwave) - Liver support/detox (8 sources) Start: 12-01-2021 End: 07-25-2022 Glutathione (Symwave) - Liver support/detox Use 8 pumps daily , divided doses through out the day. (2 pumps = 100 mg Glutathione). Work up slowly to the higher dose. 0 12/01/2021 07/25/2022 Discontinued Start: 12-01-2021 Glutathione (Q amprice) - Liver support/detox Use 8 pumps daily [...] daily in divided doses between meals. (1 hgiqjbg=889dl) 0 02/04/2023 Active Comment on above: Take 1 capsule 3 fidel es daily in divided doses between meals. (1 ffjirqq=414bk) ketoconazole 20 mg/ml topical cream (1 source) Azole Antifungal Ketoconazole 2 % External Cream APPLY SPARINGLY TO AFFECTED AREA(S) ONCE DAILY Quantity: 0 Refills: 0 Ordered: 06-Jun-2023 DO Active Lavela WS 1265 80 MG Oral Capsule (3 sources) Lavela WS 1265 8 0 MG Oral Capsule twice daily as needed Quantity: 0 Refills: 0 Ordered: 31-May-2022 DO Active Xnfa-Aycx-LS ([facility]) (8 sources) Start: 12-01-2021 End: 07-25-2022 Ltfv-Dgyt-XY ([facility]) Take 1 capsule, 2 times daily with 4 oz or more of water. 0 12/01/2021 07/25/2022 Discontinued Start: 12-01-2021 Vcnj-Kiwr-KI ( [facility]) Take 1 capsule, [...] 0 Ordered: 31-May-2022 DO Active Neuromag ( [employer] ) 90 ct (18 sources) Start: 07-08-20 Neuromag ( [employer] ) 90 ct Take 3 capsules per day or as directed by a healthcare professional. 0 07/08/2020 Active Comment on above: Take 3 capsules per day or as directed by a healthcare professional. OmegaGenics EPA-DHA 2400 (High Concentrate EPA/DHA liquid) (wikifolioics) (18 sources) Start: 07-08-20 20 [employer]ics EPA-DHA [...] capsule daily with a meal. 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) use of aspirin; Translations: [PENITENTIARY CURRENT USE OF ASPIRIN] Onset: 11-07-2022 Episodic Other aftercare (1 source) 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; Translations: [OTH PENITENTIARY CURRENT DRUG THERAPY] Onset: 11-07-2022 Episodic Other [...] Facility US.doppler Carotid arteries - bilateralon 08-25-2023 [facility] [address] [place] [address], [address], [place] [address] Vascular Lab Report [facility] US CAROTID ARTERY DUPLEX BILATERAL Patient Name: ANN MARIE HILL Reading Physician: [id number] Miranda Tinoco MD, [facility] Study Date: 08/21/2023 Ordering Provider: [id number] MARY ANNE CASTLEEdda MRN/PID: [id number] Fellow: Technologist: Irasema Dooley RD, T Date of /Age: 3 1940 years Technologist 2: Gender: F Admission Status: Outpatient Location Performed: [facility] Diagnosis/ICD: Occlusion 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; Essential primary hypertension-I10 Indication: Hyperlipidemia, Dizziness, Dementia CPT Codes: 37892 Cerebrovascular Carotid Duplex scan complete CONCLUSIONS: Right [...] cm/s Right Left ICA/CCA Ratio 1.1 0.6 14025 Miranda Tinoco MD, [facility] Final Miranda Tran M D - 08/25/[address], [address] [place] [address] Vascular Lab Report VASC US CAROTID ARTERY DUPLEX BILATERAL Patient Name: ANN MARIE Ferro Physician: [id number] Miranda Tinoco MD, [facility] Study Date: 08/21/2023 Ordering Provider: [id number] MARY ANNE SNOW MRN/PID: [id number] Fellow: Technologist: Irasema Dooley [facility], T Date of /Age: 3 1940 years Technologist 2: Gender: F Admission Status: Outpatient Location Performed: [facility] Diagnosis/ICD: Occlusion 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; Essential primary hypertension-I10 Indication: Hyperlipidemia, Dizziness, Dementia CPT Codes: 98984 Cerebrovascular Carotid Duplex scan complete CONCLUSIONS: Right [...] cm/s Right Left ICA/CCA Ratio 1.1 0.6 [id number] Miranda Tinoco MD, FACC Final [facility] Work Phone: US.doppler Carotid arteries - bilateralOrdered By: Miranda Tinoco on 08-25-2023 [facility] Work Phone: US.doppler Carotid arteries - bilateralon 08-21-2023 Radiology Study observation (narrative) [facility] Work Phone: C Urineon 07-21-2023 Bacteria identified [...] Locations R1: This test was performed at: [facility], [address] [place] [address], [address]- , [place], Normal [facility] Comment on above: Performed By: #### 2 [id number] #### [facility] Laboratory [address] [place] [address] URINALYSISOrdered By: Robel Williamson on 07-19-2023 Bacteria [...] Interpretation Code Negative [facility] UA Auto SS [place].plasma/Lithiu m.RBC (Bld) [Mass ratio] 0-3 /HPF Normal [...] [facility] UA Auto SS Urobilinogen Qn (U) 0.3468796 {Ham'U}/dL Normal 0.0 - 1.0 EU/dL [facility] UA Auto SS WBC Auto Ql (U) 3+ *ABN* (07/19/23 3:17 PM) Invalid Interpretation Code Negative [facility] UA Auto SS WBC casts LM.LPF (Urine sed) [#/Area] 0-3 (10/11/23 3:17 PM) Normal [facility] UA Auto SS WBC LM.HPF (Urine sed) [#/Area] /[HPF] Invalid Interpretation Code 0-5/HPF [facility] UA Auto SS Urinalysison 07-19-2023 Bacteria LM Ql (Urine sed) 3+ /HPF Abnormal Trace [facility] Comment on above: Performed By: #### 1 [id number] #### [facility] Laboratory [address] [place] [address] Bilirubin Ql (U) Negative Normal Negative [facility] Comment on above: Performed By: #### 1 [id number] #### [facility] Laboratory [address] [place] [address] Clarity (U) CLOUDY Abnormal Clear [facility] Comment on above: Performed By: #### 1 [id number] #### [facility] Laboratory [address] [place] [address] Color (U) DARK YELLO Abnormal Yellow [facility] Comment on above: Performed By: #### 1 [id number] #### [facility] Laboratory [address] [place] [address] Epithelial cells.squamous LM.HPF (Urine sed) [#/Area] 0-2 Normal 0-2 [facility] Comment on above: Performed By: #### 1 [id number] #### [facility] [address] [place] [address] Glucose Test strip (U) [Mass/Vol] Negative Normal Negative [facility] Comment on above: Performed By: #### 1 [id number] #### [facility] [address] [place] [address] Hemoglobin Ql (U) Negative Normal Negative [facility] Comment on above: Performed By: #### 1 [id number] #### [facility] [address] [place] [address] Ketones (U) [Mass/Vol] TRACE Abnormal Negative [facility] Comment on above: Performed By: #### 1 [id number] #### [facility] Laboratory [address] [place] [address] [place].plasma/Lithiu m.RBC (Bld) [Mass ratio] 0-3 Normal 0-3 [facility] Comment on above: Performed By: #### 1 [id number] #### [facility] [address] [place] [address] Nitrite Ql (U) Negative Normal Negative [facility] Comment on above: Performed By: #### 1 [id number] #### [facility] [address] [place] [address] pH (U) 5.5 [pH] Invalid Interpretation Code 5.0-9.0 [facility] Comment on above: Performed By: #### 1 [id number] #### [facility] Laboratory [address] [place] [address] Protein (U) [Mass/Vol] 1+ Abnormal Negative [facility] Comment on above: Performed By: #### 1 [id number] #### [facility] [address] [place] [address] Specific gravity (U) [Rel density] 1.025 Invalid Interpretation Code 1.005-1.030 [facility] Comment on above: Performed By: #### 1 [id number] #### [facility] [address] [place] [address] Type of Urine collection method Clean Catch Normal [facility] Comment on above: Performed By: #### 1 [id number] #### [facility] [address] [place] [address] Urobilinogen Qn (U) 0.2 {Ham'U}/dL Normal 0.0-1.0 [facility] Comment on above: Performed By: #### 1 [id number] #### [facility] [address] [place] [address] WBC Auto Ql (U) 3+ Abnormal Negative [facility] Comment on above: Performed By: #### 1 [id number] #### [facility] [address] [place] [address] WBC casts LM.LPF (Urine sed) [#/Area] 0-3 Normal [facility] Comment on above: Performed By: #### 1 [id number] #### [facility] [address] [place] [address] WBC LM.HPF (Urine sed) [#/Area] /[HPF] Abnormal 0-5 [facility] Comment on above: Performed By: #### 1 [id number] #### [facility] [address] [place] [address] Office Visit (Cardiology)on 06-06-2023 Follow-up visit Diagnoses/Problems [...] Status:Hold For - Scheduling,Retrospect chema Authorization; Requested for:[id number]; Laterality : Bilateral Essential hypertension Renew: Carvedilol 12.5 MG Oral Tablet; TAKE 1 TABLET TWICE DAILY Overweight with body mass index (BMI) of 27 to 27.9 in adult Healthy Weight Tips; Status:Complete - Retrospective Authorization; Done: [id number] Some eating tips that can help you lose weight.; Status:Complete - Retrospective Authorization; Done: [id number] SocHx: Never a smoker Tobacco Use Screening; Status:Complete; Done: [id number] Patient Instructions Please bring all medicines, vitamins, [...] as needed Neuro Rudolph TABSTAKE DIRECTED. Pristiq UL21dgi daily Rosuvastatin Calcium 40 MG Oral TabletTAKE [...] no fr (more content not included)... Normal [facility] Tobacco Screening.on 023 Adult depression screening assessment No [facility] 250 DO Work Phone: Fall risk assessment a) No falls within the last year [facility] 250 DO Work Phone: Tobacco use status [facility] b) No [facility] 250 DO Work Phone: CNOVon 05-19-2023 CNOV Office Visit (MEDN ) ANN MARIE HILL ([id number]) 1940 F Date Time Provider Department 05/19/23 3:30 PM [facility] your visit today, we recorded [...] OmegaGenics EPA-DHA 2400 (High Concentrate EPA/DHA liquid) (Tripbod) Take one teaspoon (5 ml) 1 times daily with food UT Synergy ([employer]) antibacterial Take 1 capsule by mouth twice daily. Brain Misael Capsules ([employer]) Take 2 tablets by mouth w MEALS. 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 [...] following ket (more content not included)... Normal [facility] ED Note-Physicianon 05-15-20 ED Note-Physician [id number]# 1.00CD:127 Normal [facility] Screenson 04-26-2023 Screens [id number]#1 .00CD:127 Normal [facility] Ambulatory Visit Summaryon 0 04-25-2023 Ambulatory Visit [...] mg/g Vag Crm) omega-3 polyunsaturated fatty acids (Hereford-3 350 mg oral capsule) ubiquinone (Co Q-10) [...] When: Where: [address] [address] Medications What How Much When Instructions Unchanged [...] or concerns Unchanged omega-3 polyunsaturated fatty acids (Hereford-3 350 mg oral capsule) By Mouth Every [...] blockage i (more content not included)... Normal [facility] Patient Educationon 04-25-20 Patient Education Obstetrics and [...] these instructions at home: Medicines ? Take bybj-wyk-krqwxoa and prescription medicines only as told by [...] provider. Document Revised: 05/07/2021 Document Reviewed: 05/07/2021 Bucky Box Patient Education ? 2022 [employer]. Normal [facility] Urology Office/Clinic Noteon 04-25-2023 Urology Office/Clinic Note [...] 2+ leuks. Asymptomatic. No Tx. +C&S 02/27/23 [facility] *Tx'd w/5 day Macrobid therapy. Increased [...] provider and she was started on supplements. LEGAL AIDE Dr Ballesteros, started her on Estradiol 1gm again. and then we started back on the Clobetasol. She is currently using both creams as needed and husbands says it helps a lot. +C&S 02/27/23 [facility] *Tx'd w/5 day Macrobid therapy. Pt [...] Contact Information DANIEL BOYER, ELLEN Bell, URL [address] [place] [address] Additional Instructions: Patient Education Urinary Tract Infection, Adult, Xpfe-ja-Rerh Documentation recorded by the scribchris Valdez accurately reflects the services(s) I performed and decisions made by me. Authenticated by Ellen Cook PA-C on 04/25/2023 12:54:27. I, Di Valdez, personally scribed for Eleln Cook PA-C on 04/25/2023 12:21:05. . Problem [...] Tab, 10 mg= 1 tab(s), Oral, Daily Hereford-3 350 mg oral capsule, Oral, Daily Pristiq, [...] Status Comments (more content not included)... Normal [facility] Comment on above: Result Comment: Elec tronically [...] mg/g Vag Crm) omega-3 polyunsaturated fatty acids (Hereford-3 350 mg oral capsule) ubiquinone (Co Q-10) valsartan (valsartan 80 mg Tab) vitamin E Procedures Performed Cystourethroscopy with dilation of urethral stricture (02/12/2019). What to do next Scheduled Follow-Up Appointments Monday 2:15 PM EDT With: GENO WATTS, Kunal Heller Where: [facility] 02-22-2023 [facility] Telephone (tado) ANN MARIE HILL ([id number]) 1940 F Date Time Provider Department 02/22/23 MODLOCHRISTIANA During your visit today, we recorded the following information about you: Audrey Singh 02/22/2023 12:21 PM Addendum Patient's spouse, Orestes called (confirmed Ann Marie's ), Ann Marie was seen by Dr. Christiana Montero. They received a test kit from [facility] in the mail and not sure what it is? Does she need to do this and what is it for. Dr. Montero did not mention anything at her last visit with him. He is asking if Concepcion can call Orestes back (he stated he is POA) on his cell ph# [phone] OR [phone]. Audrey Montero MD 02/22/2023 5:54 PM Signed [...] test can be done at the Main [place] [facility] lab? He prefer not to have if done at home. Needs to know what the test is for and if its needs be done? He is asking for explanation and call back. Please call spouse on cell phone. 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 - Glycine (Pure Encapsulations) Take 1 capsule 3 times daily in divided doses between meals. (1 pojpsaw=610bj) - B-Complex Plus (Pure Encapsulations) Take 1 capsule by mouth daily with food. - Glutathione (Symwave) Use 20 pumps daily (1000mg) divided doses [...] OmegaGenics EPA-DHA 2400 (High Concentrate EPA/DHA liquid) (Tripbod) Take one teaspoon (5 ml) 1 times daily with food - UT Synergy ([employer]atts) antibacterial Take 1 capsule by mouth twice daily. - Neuromag ( [employer] ) 90 ct Take 3 capsules per [...] Encounter Status:Closed by MARTA COELHO on 02/23/23 [facility] Michelle 02-17-2023 [facility] Telephone ([facility]) ANN MARIE HILL ([id number]) 1940 F Date Time Provider Department 02/17/23 KASEY RAEGabriella During your visit today, we recorded the following information about you: Evelyn Flaherty LPN 02/17/2023 8:19 AM Signed NUTRITION RESOURCES SENT VIA [facility]. Evelyn Flaherty LPN February 17, 2023 8:17 [...] daily in divided doses between meals. (1 dpkxqht=704ph) - B-Complex Plus (Pure Encapsulations) Take 1 capsule by mouth daily with food. - Glutathione (Symwave) Use 20 pumps daily (1000mg) divided doses [...] OmegaGenics EPA-DHA 2400 (High Concentrate EPA/DHA liquid) (Tripbod) Take one teaspoon (5 ml) 1 times daily with food - UT Synergy (Autowatts) antibacterial Take 1 capsule by mouth twice daily. - Neuromag ( [employer]atts ) 90 ct Take 3 capsules per [...] Encounter Status:Closed by EVELYN FLAHERTY on 02/17/23 [facility] CNHoracio 02-03-2023 CNOV Office Visit (MEDFMN ) ANN MARIE HILL ([id number]) 1940 F Date Time Provider Department 02/03/23 [...] OmegaGenics EPA-DHA 2400 (High Concentrate EPA/DHA liquid) (Tripbod) Take one teaspoon (5 ml) 1 times daily with food UT Synergy ([employer]) antibacterial Take 1 capsule by mouth twice daily. Brain Misael Capsules ([employer]atts) Take 2 tablets by mouth w MEALS. 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 [...] Bowel Habits (more content not included)... Normal [facility] CNOVon 10-31-2022 CNOV Office Visit ([facility] ) ANN MARIE HILL ([id number]) 1940 F Date Time Provider Department 10/31/22 1:00 PM CHRISTIANA MONTERO [facility] During your visit today, we recorded [...] OmegaGenics EPA-DHA 2400 (High Concentrate EPA/DHA liquid) (Tripbod) Take one teaspoon (5 ml) 1 times daily with food UT Synergy ([employer]atts) antibacterial Take 1 capsule by mouth twice daily. Brain Misael Capsules (Autowatts) Take 2 tablets by mouth w MEALS. 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 [...] this. F (more content not included)... Normal [facility] T4 Free SerPl-mCncon 023 Free T4 [Mass/Vol] 1.3 ng/dL Normal 0.9-1.7 [facility] Comment on above: Order Comment: Speci men Type: BLOOD SPECIMENOrdering Facility: [facility] Address: [place] [address] Performed By: #### 3 024-7, 3016-3 ####[facility] [id number] [address] [place] TSH SerPl-aCncon 10-31-2022 TSH Qn 1.570 m[IU]/L Normal 0.270-4.200 [facility] Comment on above: Order Comment: Speci men Type: BLOOD SPECIMENOrdering Facility: [facility] Address: [place] [address] Performed By: #### 3 024-7, 3016-3 ####[facility] [id number] [place] [id number] [place] CNPNon 10-28-2022 CNPN Telephone ([facility]) ANN MARIE HILL ([id number]) 1940 F Date Time Provider Department 10/28/22 [...] Fully Assessed Reason for Visit: Patient Question [[id number]] Prescriptions as of 10/28/2022 - desvenlafaxine ER [...] OmegaGenics EPA-DHA 2400 (High Concentrate EPA/DHA liquid) (Tripbod) Take one teaspoon (5 ml) 1 times daily with food - UT Synergy ([employer]owatts) antibacterial Take 1 capsule by mouth twice daily. - Brain Misael Capsules (Autowatts) Take 2 tablets by mouth w MEALS. - Neuromag ( [employer]owatts ) 90 ct Take 3 capsules per [...] Encounter Status:Closed by EVELYN FLAHERTY on 10/28/22 [facility] Patient Education 08-08-20 Patient Education Obstetrics and [...] this condition includes: ? Antibiotic medicine. ? Wljg-gux-tmezrav medicines to treat discomfort. ? Drinking enough [...] these instructions at home: Medicines ? Take zwsa-lai-pfjplpw and prescription medicines only as told by [...] This in (more content not included)... Normal [facility] Urology Office/Clinic Noteon 08-08-2022 Urology Office/Clinic Note [...] 04/08/2023 EDT [facility] [address] [place] [phone] Additional Instructions: Patient Education Urinary Tract Infection, [...] Tab, 10 mg= 1 tab(s), Oral, Daily Hereford-3 350 mg oral capsule, Oral, Daily Pristiq, [...] inactivated - Not Given Patient Refuses Normal [facility] Comment on above: Result Comment: Elec tronically Signed By: Kunal LORA MD\.br\Date and Time Signed: 08/08/22 16:21 EDT\.br\Electronically Co-Signed By: Alisa Caban MA.br\Date and Time Co-Signed: 08/08/22 16:17 EDT CNOVon 07-25-2022 CNOV Office Visit ([facility] ) ANN MARIE HILL ([id number]) 1940 F Date Time Provider Department 07/25/22 [...] boullardi 2 hrs away from nystatin/candibactin/ diflucan. Knxc-Suoq-WW (Innoviti) Take 1 capsule, 2 times daily with 4 oz or more of water. Glutathione (Symwave) - Liver support/detox Use 8 pumps daily , divided doses through out the day. (2 pumps = 100 mg Glutathione). Work up slowly to the higher dose. B-Complex Plus (Pure Encapsulations) Take 2 capsules by mouth daily with food. Multi t/d 60 ct. (Pure Encapsulations) - multivitamin Take 1 capsule by mouth twice daily with meals. OmegaGenics EPA-DHA 2400 (High Concentrate EPA/DHA liquid) (Tripbod) Take one teaspoon (5 ml) 1 times daily with food [facility]) antibacterial Take 1 capsule by mouth twice daily. Brain Misael Capsules (Autowatts) Take 2 tablets by mouth w MEALS. Neuromag ( Autowatts ) 90 ct Take 3 capsules per [...] is conf (more content not included)... Normal [facility] MG MAMM SCREEN JOSH W CADon 0 06-17-2022 MG MAMM SCREEN JOSH W CAD Patient: ANN MARIE HILL Exam Date: 06/17/2022 : 1940 Gender:F Ordering : DR MENG PRATER . Admission #: [id number] Family : Order #: [id number] CLICK HERE TO VIEW EXAM RADIOLOGY REPORT [...] Treatments None Family Cancers None LOCATION: [facility] BREAST COMPOSITION: Scattered areas fibroglandular density. FINDINGS: [...] LUMP SHOULD BE BIOPSIED. Dictated by: Samm Moseely M.D. on 06/17/2022 at 15:44 Approved by: Samm Moseley M.D. on 06/17/2022 at 15:47 Normal [facility] OCC BLD IMMUNOASSAYon 2021 OCCULT BLOOD Negative Normal NEGATIVE [facility] Comment on above: Performed By: #### O CHANDU #### [facility] Laboratory [address] [address] [address] Hu Carlos INSULINon 06-04-2022 Insulin 11.2 uIU/mL Normal 2.6-24.9 [facility] Comment on above: Performed By: #### I NSULIN ####[facility] [id number] [address]Dr. Hu Carlos T4, T3U, FTI LABCORPon 06-04 Free Thyroxine Index 2.3 Normal 1.2-4.9 [facility] Comment on above: Performed By: #### T HYLC #### [facility] [address] [address] [address] Hu Carlos T3 Uptake 26 % Normal 24-39 [facility] Comment on above: Performed By: #### T HYLC #### [facility] [address] [address] [address] uH Carlos T4 [Mass/Vol] 8.8 ug/dL Normal 4.5-12.0 [facility] Comment on above: Performed By: #### T HYLC #### [facility] [address] [address] [address] Hu Carlos VIT D 25-OH LABCORPon 2021 Vitamin D, 25-Hydroxy 60.5 ng/mL Normal 30.0-100.0 [facility] Comment on above: Result Comment: Nicolette min D deficiency has been defined by the [place] of [employer] and an Endocrine Society practice guideline as a level of serum 25-OH vitamin D less than 20 ng/mL (1,2). The Endocrine Society went on to further define vitamin D insufficiency as a level between 21 and 29 ng/mL (2). 1. IOM ([place] of [employer]). 2010. Dietary reference intakes for calcium and D. [place]: The National Academies Press. 2. Suzette MF, Julian [place], Fady CLEMONS, et al. Evaluation, treatment, and prevention of vitamin D deficiency: an Endocrine Society clinical practice guideline. JCEM. 2010; 96(7):1911-30. Performed By: #### V ITADLC ####[facility] [id number] [place], [place] [address]ZkDr. Hu Carlos CBC AUTO DIFFon 06-03-2022 BASO # 0.0 103/ul Normal 0.0-0.1 [facility] Comment on above: Performed By: #### C BC #### [facility] [address] [address] [address] Hu Carlos Basophils/100 WBC (Bld) 0.6 % Normal 0.2-2.0 [facility] Comment on above: Performed By: #### C BC #### [facility] [address] [place] [address] Dr. Hu Carlos EO # 0.2 103/ul Normal 0.0-0.7 [facility] Comment on above: Performed By: #### C BC #### [facility] [address] [place] [address] Dr. Hu Carlos Eosinophils/100 WBC (Bld) 3.2 % Normal 0.9-7.0 [facility] Comment on above: Performed By: #### C BC #### [facility] [address] [place] [address] Dr. Hu Carlos Erythrocyte distribution width (RBC) [Ratio] 12.6 % Normal 11.0-15.0 [facility] Comment on above: Performed By: #### C BC #### [facility] [address] [place] [address] Dr. Hu Carlos Hematocrit (Bld) [Volume fraction] 40.0 % Normal 36.0-48.0 [facility] Comment on above: Performed By: #### C BC #### [facility] [address] [place] [address] Dr. Hu Carlos Hemoglobin (Bld) [Mass/Vol] 12.8 g/dL Normal 12.0-16.0 [facility] Comment on above: Performed By: #### C BC #### [facility] [address] [place] [address] Dr. Hu Carlos IG # 0.01 10e3/ul Normal 0.00-0.03 [facility] Comment on above: Performed By: #### C BC #### [facility] [address] [place] [address] Dr. Hu Carlos IG % 0.2 % Normal 0.0-0.5 [facility] Comment on above: Performed By: #### C BC #### [facility] [address] [place] [address] Dr. Hu Carlos LYMPH # 1.2 103/ul Normal 1.2-3.8 [facility] Comment on above: Performed By: #### C BC #### [facility] [address] [place] [address] Dr. Hu Carlos Lymphocytes/100 WBC (Bld) 22.7 % Normal 20.5-60.0 [facility] Comment on above: Performed By: #### C BC #### [facility] [address] [place] [address] Dr. Hu Carlos MANUAL DIFF REQ NO Normal [facility] Comment on above: Performed By: #### C BC #### [facility] [address] [place] [address] Dr. Hu Carlos MCH (RBC) [Entitic mass] 31.8 pg Normal 26.7-34.0 [facility] Comment on above: Performed By: #### C BC #### [facility] [address] [place] [address] Dr. Hu Carlos MCHC (RBC) [Mass/Vol] 32.0 g/dL Normal 29.9-35.2 [facility] Comment on above: Performed By: #### C BC #### [facility] [address] [place] [address] Dr. Hu Carlos MCV (RBC) [Entitic vol] 99.3 fL Critically high 81.0-99.0 [facility] Comment on above: Performed By: #### C BC #### [facility] [address] [place] [address] Dr. Hu Carlos MONO # 0.5 103/ul Normal 0.3-0.8 [facility] Comment on above: Performed By: #### C BC #### [facility] [address] [address] [address] Hu Carlos Monocytes/100 WBC (Bld) 8.8 % Normal 1.7-12.0 [facility] Comment on above: Performed By: #### C BC #### [facility] [address] [address] [address] Hu Carlos NEUT # 3.4 103/ul Normal 1.4-6.5 [facility] Comment on above: Performed By: #### C BC #### [facility] [address] [address] [address] Hu Carlos Neutrophils/100 WBC (Bld) 64.5 % Normal 43.0-75.0 [facility] Comment on above: Performed By: #### C BC #### [facility] [address] [address] [address] Hu Carlos Platelet mean volume (Bld) [Entitic vol] 8.8 fL Critically low 9.5-13.5 [facility] Comment on above: Performed By: #### C BC #### [facility] [address] [address] [address] Hu Carlos PLT 278 103/ul Normal 150-450 [facility] Comment on above: Performed By: #### C BC #### [facility] [address] [address] [address] Hu Carlos RBC 4.03 106/ul Critically low 4.20-5.40 [facility] Comment on above: Performed By: #### C BC #### [facility] [address] [address] [address] Hu Carlos WBC 5.3 103/ul Normal 4.0-11.0 [facility] Comment on above: Performed By: #### C BC #### [facility] [address] [place] [address] Dr. Hu Carlos GLYCOHEMOGLOBIN A1Con 2021 ADA RECOMMENDATION SEE BELOW Normal [facility] [place] [facility] Comment on above: Result Comment: ADA RECOMMENDED LIMIT 4.0 - 6.0 ADA THERAPEUTIC TARGET < 7.0 ACTION SUGGESTED > 7.0 Performed By: #### A 1C ####[facility] [id number] [address]Dr. Hu Carlos Glucose [Mass/Vol] 123 mg/dL Normal [facility] Comment on above: Performed By: #### A 1C ####[facility] [id number] [address]Dr. Hu Carlos HbA1c (Bld) [Mass fraction] 5.9 % Normal 4.5-6.2 [facility] Comment on above: Performed By: #### A 1C ####[facility] [id number] [address]Dr. Hu Carlos IRONon 06-03-2022 Iron [Mass/Vol] 68.0 ug/dL Normal 50.0-170.0 [facility] Comment on above: Performed By: #### I CANDY #### [facility] [address] [address] [address] Hu Carlos LIPID PROFILEon 06-03-2022 CHOL-HDL RATIO NORM SEE BELOW Normal [facility] Comment on above: Result Comment: 3.3 - 4.4 LOW RISK 4.4 - 7.1 AVERAGE RISK 7.1 - 11.0 MODERATE RISK >11.0 HIGH RISK Performed By: #### T SH, LIPID, CMP #### [facility] [address] [address] [address] Hu Carlos Cholesterol [Mass/Vol] 155 mg/dL Normal <=200 [facility] Comment on above: Performed By: #### T SH, LIPID, CMP #### [facility] [address] [address] [address] Hu Carlos Cholesterol in HDL [Mass/Vol] 70 mg/dL Critically high 40-60 [facility] Comment on above: Performed By: #### T SH, LIPID, CMP #### [facility] [address] [address] [address] Hu Carlos Cholesterol in LDL [Mass/Vol] 73.2 mg/dL Normal [facility] Comment on above: Performed By: #### T SH, LIPID, CMP #### [facility] [address] [address] [address] Hu Carlos Cholesterol.total/Cho lesterol in HDL [Mass ratio] 2.2 {ratio} Normal [facility] Comment on above: Performed By: #### T KISHOR, LIPID, CMP #### [facility] [address] [address] [address] Hu Carlos HDL NORMAL > or = 60 mg/dl - LO W CARDIOVASCULAR RISK <40 mg/dl - HIGH CARDIOVASCULAR RISK Normal [facility] Comment on above: Performed By: #### T KISHOR, LIPID, CMP #### [facility] [address] [address] [address] Hu Carlos LDL CALC NORMAL SEE BELOW Normal [facility] Comment on above: Result Comment: <100 mg/dl OPTIMAL 100 - 129 mg/dl NEAR OR ABOVE OPTIMAL 130 - 159 mg/dl BORDERLINE HIGH 160 - 189 mg/dl HIGH >190 mg/dl VERY HIGH Performed By: #### T KISHOR, LIPID, CMP #### [facility] [address] [address] [address] Hu Carlos Triglyceride [Mass/Vol] 59 mg/dL Normal <=150 [facility] Comment on above: Performed By: #### T KISHOR, LIPID, CMP #### [facility] [address] [place] [address] Dr. Hu Carlos VLDL CALC 11.8 mg/dL Normal [facility] Comment on above: Performed By: #### T KISHOR, LIPID, CMP #### [facility] [address] [place] [address] Dr. Hu Carlos PROF 14(COMP METB)on 022 Albumin [Mass/Vol] 3.5 g/dL Normal 3.4-5.0 [facility] Comment on above: Performed By: #### T KISHOR, LIPID, CMP #### [facility] [address] [place] [address] Dr. Hu Carlos Albumin/Globulin [Mass ratio] 1.0 {ratio} Normal [facility] Comment on above: Performed By: #### T KISHOR, LIPID, CMP #### [facility] [address] [address] [address] Hu Carlos ALP [Catalytic activity/Vol] 73 U/L Normal 46-116 [facility] Comment on above: Performed By: #### T SH, LIPID, CMP #### [facility] [address] [address] [address] Hu Carlos ALT [Catalytic activity/Vol] 24 U/L Normal 14-59 [facility] Comment on above: Performed By: #### T SH, LIPID, CMP #### [facility] [address] [address] [address] Hu Carlos Anion gap [Moles/Vol] 11.1 mmol/L Normal [facility] Comment on above: Performed By: #### T SH, LIPID, CMP #### [facility] [address] [address] [address] Hu Carlos AST [Catalytic activity/Vol] 15 U/L Normal 15-37 [facility] Comment on above: Performed By: #### T SH, LIPID, CMP #### [facility] [address] [address] [address] Hu Carlos Bilirubin [Mass/Vol] 0.4 mg/dL Normal 0.2-1.0 [facility] Comment on above: Performed By: #### T SH, LIPID, CMP #### [facility] [address] [place] [address] Dr. Hu Carlos Calcium [Mass/Vol] 8.9 mg/dL Normal 8.5-10.1 [facility] Comment on above: Performed By: #### T SH, LIPID, CMP #### [facility] [address] [address] [address] Hu Carlos Chloride [Moles/Vol] 103 mmol/L Normal 98-107 [facility] Comment on above: Performed By: #### T SH, LIPID, CMP #### [facility] [address] [address] [address] Hu Carlos CO2 [Moles/Vol] 30.9 mmol/L Normal 21.0-32.0 [facility] Comment on above: Performed By: #### T SH, LIPID, CMP #### [facility] [address] [address] [address] Hu Carlos Creatinine [Mass/Vol] 0.81 mg/dL Normal 0.55-1.02 [facility] Comment on above: Performed By: #### T SH, LIPID, CMP #### [facility] [address] [address] [address] Hu Carlos EGFR-AF LIBERIAN >60 Normal >=60 [facility] Comment on above: Performed By: #### T SH, LIPID, CMP #### [facility] [address] [address] [address] Hu Carlos EGFR-NON AF LIBERIAN >60 Normal >=60 [facility] Comment on above: Performed By: #### T SH, LIPID, CMP #### [facility] [address] [address] [address] Hu Carlos Globulin (S) [Mass/Vol] 3.6 g/dL Normal [facility] Comment on above: Performed By: #### T SH, LIPID, CMP #### [facility] [address] [address] [address] Hu Carlos Glucose [Mass/Vol] 100 mg/dL Normal 74-106 [facility] Comment on above: Performed By: #### T SH, LIPID, CMP #### [facility] [address] [address] [address] Hu Carlos Potassium [Moles/Vol] 4.0 mmol/L Normal 3.5-5.1 [facility] Comment on above: Performed By: #### T SH, LIPID, CMP #### [facility] [address] [address] [address] Hu Carlos Protein [Mass/Vol] 7.1 g/dL Normal 6.4-8.2 [facility] Comment on above: Performed By: #### T SH, LIPID, CMP #### [facility] [address] [address] [address] Hu Carlos Sodium [Moles/Vol] 141 mmol/L Normal 136-145 [facility] Comment on above: Performed By: #### T SH, LIPID, CMP #### [facility] [address] [address] [address] Hu Carlos Urea nitrogen [Mass/Vol] 21.0 mg/dL Critically high 7.0-18.0 [facility] Comment on above: Performed By: #### T SH, LIPID, CMP #### [facility] [address] [address] [address] Hu Carlos Urea nitrogen/Creatinine [Mass ratio] 25.9 mg/mg Normal [facility] Comment on above: Performed By: #### T SH, LIPID, CMP #### [facility] [address] [address] [address] Hu Carlos TSHon 06-03-2022 TSH 1.582 uIU/mL Normal 0.358-3.740 [facility] Comment on above: Performed By: #### T SH, LIPID, CMP #### [facility] [address] [address] [address] Hu Carlos PHQ-2 VITALSon 05-31-2022 Fall risk assessment a) No falls within the last year [facility] Work Phone: Tobacco use status [facility] b) No [facility] Work Phone: PHQ-2 VITALS Yes [facility] 250 DO Work Phone: Tobacco Screening.on 021 Fall risk assessment a) No falls within the last year [facility] 250 DO Work Phone: Tobacco use status [facility] b) No [facility] DO Work Phone: VASC LAB Carotid Artery Dupl ex Ultrasounon 06-23-2020 VASC LAB Carotid Artery Duplex Ultrasoun [facility] [address] [place] [address], [address] [place] [address] Vascular Lab Report Carotid Artery Duplex Ultrasound Patient Name: ANN MARIE HILL Reading Physician: [id number] Miranda Tinoco MD, FACC Study Date: 06/23/2020 Referring Physician: [id number] Mary Anne Snow MD MRN/PID: [id number] PCP: Meng Prater Accession/Order#: [id number] CC Report to: Date of : 1940 Technologist: Irasema Dooley RDCS, RVT Gender: F Technologist 2: Admission Status: Outpatient Location Performed: [facility] Diagnosis/ICD: 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 Indication: HTN, Hyperlipidemia, Mild Dementia, Overweight, PVC's Procedure/CPT: 12470 Cerebrovascular Carotid Duplex scan complete-26162 CONCLUSIONS: Right Carotid: Findings are consistent with [...] cm/s Right Left ICA/CCA Ratio 1.0 0.9 [id number] Miranda Tinoco MD, FACC Final Normal [facility] CARDIAC STRESS/REST YOSHI Dooley 09-11-2019 [facility] CARDIAC STRESS/REST INJECTION Patient Name: ANN MARIE HILL STUDY: MYOCARDIAL PERFUSION STRESS TEST WITH LEXISCAN Performing facility: [facility], [address] [place] [address], [address], [place] [address] [facility] Provider: Mary Anne Snow MD PCP: Dr. Robel PRATER Supervising provider: Yin Taylor MD, [facility] INDICATION: CP HISTORY: Gender: F; Age: 78 y/o ; Height: 154.94 cm; Weight: 77.7506898 kg. High Cholesterol; HTN PVCs CP DEMENTIA Denies smoking. COMPARISON: No comparison. ACCESSION NUMBER(S): [id number]; [id number]; [id number] ORDERING CLINICIAN: MARY ANNE SNOW TECHNIQUE: ONE [...] Electronically signed by: MARY ANNE SNOW MD [facility] Vital Signs Date Time Vital Sign Value Performing Clinician Facility 06-06-2023 13:36-0400 Body height 157.48 cm Meng M Hoy Work Phone: [facility] 250 DO Work Phone: 06-06-2023 13:36-0400 Body mass index (BMI) [Ratio] 27.98 kg/m2 Meng M Hoy Work Phone: [facility] 250 DO Work Phone: 06-06-2023 13:36-0400 Body surface area Derived from formula 1.71 m2 Meng M Hoy Work Phone: [facility] 250 DO Work Phone: 06-06-2023 13:36-0400 Body weight 69.4 kg Meng M Hoy Work Phone: [facility] 250 DO Work Phone: 06-06-2023 13:36-0400 Diastolic blood pressure 62 mm[Hg] Meng M Hoy Work Phone: [facility] 250 DO Work Phone: 06-06-2023 13:36-0400 Heart rate 64 /min Meng M Hoy Work Phone: [facility] 250 DO Work Phone: 06-06-2023 13:36-0400 Systolic blood pressure 100 mm[Hg] Meng M Hoy Work Phone: [facility] 250 DO Work Phone: 05-19-2023 15:41-0400 Body height 157.5 cm Christiana Montero MD Work Phone: [facility] 05-19-2023 15:41-0400 Body weight 70.94 kg Christiana Montero MD Work Phone: [facility] 05-19-2023 15:41-0400 Diastolic blood pressure 63 mm[Hg] Christiana Montero MD Work Phone: [facility] 05-19-2023 15:41-0400 Heart rate 76 /min Christiana Montero MD Work Phone: [facility] 05-19-2023 15:41-0400 Systolic blood pressure 124 mm[Hg] Christiana Montero MD Work Phone: [facility] 04-25-2023 11:12-0400 Blood Pressure Location ELLEN DANIEL [facility] 04-25-2023 11:12-0400 Diastolic blood pressure 80 mm[Hg] ELLEN DANIEL [facility] 04-25-2023 11:12-0400 Heart rate 72 /min ELLEN DANIEL [facility] 04-25-2023 11:12-0400 Respiratory rate 16 /min ELLEN DANIEL [facility] 04-25-2023 11:12-0400 Systolic blood pressure 130 mm[Hg] ELLEN DANIEL [facility] 02-03-2023 15:26-0400 Body height 157.5 cm Christiana Montero MD Work Phone: [facility] 02-03-2023 15:26-0400 Body weight 68.77 kg Christiana Montero MD Work Phone: [facility] 02-03-2023 15:26-0400 Diastolic blood pressure 59 mm[Hg] Christiana Montero MD Work Phone: [facility] 02-03-2023 15:26-0400 Heart rate 83 /min Christiana Montero MD Work Phone: [facility] 02-03-2023 15:26-0400 Systolic blood pressure 136 mm[Hg] Christiana Montero MD Work Phone: [facility] 10-31-2022 13:19-0500 Body height 157.5 cm Christiana Montero MD Work Phone: [facility] 10-31-2022 13:19-0500 Body temperature 97.81 [degF] Christiana Montero MD Work Phone: [facility] 10-31-2022 13:19-0500 Body weight 62.23 kg Christiana Montero MD Work Phone: [facility] 10-31-2022 13:19-0500 Diastolic blood pressure 68 mm[Hg] Christiana Montero MD Work Phone: [facility] 10-31-2022 13:19-0500 Heart rate 79 /min Christiana Montero MD Work Phone: [facility] 10-31-2022 13:19-0500 SaO2% (BldA) [Mass fraction] 97 % Christiana Montero MD Work Phone: [facility] 10-31-2022 13:19-0500 Systolic blood pressure 143 mm[Hg] Christiana Montero MD Work Phone: [facility] 08-08-2022 15:17-0400 Diastolic blood pressure 76 mm[Hg] Kunal LORA [facility] 08-08-2022 15:17-0400 Mean blood pressure 101 mm[Hg] Kunal LORA [facility] 08-08-2022 15:17-0400 Systolic blood pressure 152 mm[Hg] Kunal LORA [facility] 07-25-2022 12:47-0400 Body height 157.5 cm Christiana Montero MD Work Phone: [facility] 07-25-2022 12:47-0400 Body temperature 98.01 [degF] Christiana Montero MD Work Phone: [facility] 07-25-2022 12:47-0400 Body weight 61.01 kg Christiana Montero MD Work Phone: [facility] 07-25-2022 12:47-0400 Diastolic blood pressure 62 mm[Hg] Christiana Montero MD Work Phone: [facility] 07-25-2022 12:47-0400 Heart rate 80 /min Christiana Montero MD Work Phone: [facility] 07-25-2022 12:47-0400 SaO2% (BldA) [Mass fraction] 98 % Christiana Montero MD Work Phone: [facility] 07-25-2022 12:47-0400 Systolic blood pressure 140 mm[Hg] Christiana Montero MD Work Phone: [facility] 05-31-2022 11:58-0400 Body height 157.48 cm Meng Paz [employer] Work Phone: [facility] 250 DO Work Phone: 05-31-2022 11:58-0400 Body mass index (BMI) [Ratio] 23.59 kg/m2 Meng Paz Hoy Work Phone: [facility] 250 DO Work Phone: 05-31-2022 11:58-0400 Body surface area Derived from formula 1.59 m2 Meng Jackson Hoy Work Phone: [facility] 250 DO Work Phone: 05-31-2022 11:58-0400 Body weight 58.51 kg Meng M Hoy Work Phone: [facility] 250 DO Work Phone: 05-31-2022 11:58-0400 Diastolic blood pressure 60 mm[Hg] Meng Paz Hoy Work Phone: [facility] DO Work Phone: 05-31-2022 11:58-0400 Heart rate 68 /min Meng Paz Hoy Work Phone: [facility] DO Work Phone: 05-31-2022 11:58-0400 Systolic blood pressure 102 mm[Hg] Meng Paz Hochuy Work Phone: [facility] 250 DO Work Phone: 03-18-2022 12:59-0400 Body height 157.5 cm Evita Calderon MD Work Phone: [facility] 03-18-2022 12:59-0400 Body weight 55.34 kg Evita Calderon MD Work Phone: [facility] 03-18-2022 12:59-0400 Diastolic blood pressure 52 mm[Hg] Evita Calderon MD Work Phone: [facility] 03-18-2022 12:59-0400 Heart rate 70 /min Evita Calderon MD Work Phone: [facility] 03-18-2022 12:59-0400 Systolic blood pressure 107 mm[Hg] Evita Calderon MD Work Phone: [facility] 03-02-2022 10:32-0400 Body weight 56.61 kg Han Britton MD Work Phone: [facility] 03-02-2022 10:32-0400 Diastolic blood pressure 53 mm[Hg] Han Britton MD Work Phone: [facility] 03-02-2022 10:32-0400 Heart rate 75 /min Han Britton MD Work Phone: [facility] 03-02-2022 10:32-0400 Systolic blood pressure 115 mm[Hg] Han Britton MD Work Phone: [facility] 01-31-2022 14:14-0400 Blood Pressure Location Kunalsherrie LORA [facility] 01-31-2022 14:14-0400 Diastolic blood pressure 51 mm[Hg] Kunalsherrie LORA [facility] 01-31-2022 14:14-0400 Heart rate 66 /min Kunalsherrie LORA [facility] 01-31-2022 14:14-0400 Respiratory rate 16 /min Kunalsherrie LORA [facility] 01-31-2022 14:14-0400 Systolic blood pressure 96 mm[Hg] Kunal LORA [facility] 08-09-2021 13:50-0400 Body height 157.48 cm Meng Jackson Hoy Work Phone: [facility] 250 DO Work Phone: 08-09-2021 13:50-0400 Body mass index (BMI) [Ratio] 21.58 kg/m2 Meng [employer] Hoy Work Phone: [facility] 250 DO Work Phone: 08-09-2021 13:50-0400 Body surface area Derived from formula 1.53 m2 Meng [employer] Hoy Work Phone: [facility] 250 DO Work Phone: 08-09-2021 13:50-0400 Body weight 53.52 kg Meng M Hoy Work Phone: [facility] 250 DO Work Phone: 08-09-2021 13:50-0400 Diastolic blood pressure 60 mm[Hg] Meng Jackson Hoy Work Phone: [facility] 250 DO Work Phone: 08-09-2021 13:50-0400 Heart rate 72 /min Meng M Hoy Work Phone: [facility] 250 DO Work Phone: 08-09-2021 13:50-0400 Systolic blood pressure 110 mm[Hg] Meng M Hoy Work Phone: [facility] DO Work Phone: Encounters Encounter Date Encounter Type Care Provider Facility Start: 09-20-2023 End: 09-20-2023 ambulatory MAUREEN BALLESTEROS Not Available Start: 08-21-2023 End: 08-21-2023 Subsequent hospital visit by physician Judy Smith Echo/Vasc Room 2 [facility] Comment on above: Carotid stenosis, bi lateral; Benign hypertension Start: 07-19-2023 End: 07-20-2023 ambulatory ELLEN COOK Facility:[facility] [place] Start: 07-19-2023 End: 07-19-2023 Lab Drop off ELLEN COOK [facility] Start: 07-19-2023 End: 07-20-2023 ambulatory Leonor Phillips Facility:[facility] Start: 07-19-2023 End: 07-19-2023 Patient encounter procedure Leonor Phillips [facility] Start: 06-06-2023 Office outpatient vi sit 15 minutes Meng M Hoy Work Phone: [facility] 250 DO Work Phone: Start: 06-06-2023 ambulatory [...] m caregiver Christiana Montero MD [facility] Start: 04-26-2023 Rx Renewal Meng Williamy Work Phone: [facility] 250 DO Work Phone: Start: 04-25-2023 End: 04-26-2023 ambulatory ELLEN COOK Facility: [facility] Start: 04-25-2023 End: 04-25-2023 Patient encounter procedure ELLEN COOK [facility] Start: 04-17-2023 End: 04-18-2023 ambulatory Kunal LORA Facility:[facility] Start: 04-17-2023 End: 04-17-2023 Patient encounter procedure Kunal LORA [facility] Start: 02-17-2023 Telephone encounter Kasey Hernández RD Work Phone: Functional Medicine Comment on above: Appointment Start: 02-15-2023 End: 02-15-[address] Hernández RD Work Phone: [facility] Start: 02-15-2023 End: 02-15-2023 [facility]QHC visit, estab pt Kasey Oden Edgar RD Work Phone: Functional Medicine Comment on above: Established Patient Start: 02-04-2023 ambulatory Christiana Concepcion Work Phone: Functional Medicine Comment on above: After Visit 02/03/23 Start: 02-04-2023 E-mail encounter fro m caregiver Christiana Montero MD Work Phone: [facility] Start: 02-03-2023 End: 02-03-2023 ambulatory MENG PRATER Facility:[facility] Start: 02-03-2023 End: 02-03-2023 Patient encounter procedure [...] m caregiver Christiana Montero MD Work Phone: [facility] Start: 10-31-2022 End: 10-31-2022 Patient encounter [...] Start: 08-10-2022 End: 11-03-2022 [facility] Start: 08-10-2022 End: 08-10-2022 Patient encounter procedure [facility]OR[facility] Start: 08-08-2022 End: 08-09-2022 ambulatory Kunal LORA Facility:[facility] Start: 08-08-2022 End: 08-08-2022 Patient encounter procedure Kunal LORA [facility] Start: 07-25-2022 End: 07-25-2022 ambulatory CHRISTIANA MONTERO Facility:[facility] Start: 07-25-2022 End: 07-25-2022 Patient encounter procedure [...] sit 25 minutes Meng Prater Work Phone: [facility] 250 DO Work Phone: Start: 05-12-2022 ambulatory [facility] Comment on above: Mold Report Start: 05-12-2022 E-mail encounter fro m caregiver [facility] Start: 05-09-2022 ambulatory Evita siu MD Work Phone: Functional Medicine Comment on above: Ubiquinol Start: 04-26-2022 Rx Renewal Meng Prater Work Phone: [facility] 250 DO Work Phone: Start: 04-11-2022 ambulatory [facility] Comment on above: Ultrasound - Carotid Artery Start: 04-11-2022 E-mail encounter fro m caregiver [facility] Provider [facility] Start: 03-18-2022 End: 03-18-2022 Patient [...] encounter procedure Kunal LORA [facility] Start: 01-09-2022 ambulatory Evita siu MD Work Phone: Functional Medicine Comment on above: Mold test results Start: 08-09-2021 Office outpatient vi sit 25 minutes Meng Prater Work Phone: [facility] 250 DO Work Phone: Start: 07-11-2017 Ambulatory [...] Anne Snow, Status: Pen, Time: 2:00 PM [facility] 250 DO Work Phone: Start: 06-04-2024 End: 06-04-2024 Patient encounter procedure 06/04/2024 2:00 PM EDT Office Visit [facility] [address] [place] [address] Mary Anne Snow MD [address] [place] [address] [facility] Start: 11-25-2023 DIABETES SCREEN DIABETES SCREEN [facility] Start: 07-24-2023 CAROTID, Provider: CHAD CARMONA ULTRASOUND ,[id number], Status: Pen, Time: 2:30 PM CAROTID, Provider: CHAD CARMONA ULTRASOUND ,[id number], Status: Pen, Time: 2:30 PM [facility] Work [facility]: Start: 06-09-2023 Influenza vaccination [facility] Start: 06-06-2023 FUV, Provider: Mary Anne Snow, Status: Pen, Time: 1:20 PM FUV, Provider: Mary Anne Snow, Status: Pen, Time: 1:20 PM [facility] 250 DO Work Phone: Start: 03-18-2023 BP CONTROLLED (<130/80) BP CON TROLLED (<130/80) [facility] Start: 03-02-2023 BP CONTROLLED (<130/80) BP CON TROLLED (<130/80) [facility] Start: 02-04-2023 End: 04-06-2023 MISC SEND OUT TST 1 MISC SEND OUT TST 1 Lab Routine 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 Work Phone: Comment on above: Expected: 02/04/2023 , Expires: 04/06/2023 Start: 12-01-2022 BP CONTROLLED (<130/80) BP CON TROLLED (<130/80) [facility] Start: 10-09-2022 ADVANCE DIRECTIVE DISCUSSION ADVANCE DIRECTIVE DISCUSSION [facility] Start: 07-25-2022 End: 09-24-2022 COPPER BLOOD COPPER BLOOD Lab Routine Memory change Expected: 07/25/2022, Expires: 09/24/2022 [facility] Work Phone: Comment on above: Expected: 07/25/2022 , Expires: 09/24/2022 Start: 07-25-2022 End: 09-24-2022 FM SQ NUTREVAL PANEL BLOOD AND URINE FM SQ NUTREVAL PANEL BLOOD AND URINE Lab Routine Impaired nutrient utilization Expected: 07/25/2022, Expires: 09/24/2022 [facility] Work Phone: Comment on above: Expected: 07/25/2022 , Expires: 09/24/2022 Start: 07-25-2022 End: 09-24-2022 Homocysteine [Moles/volume] in Serum or Plasma HOMOCYSTEINE Lab Routine Elevated homocysteine Expected: 07/25/2022, Expires: 09/24/2022 [facility] Work Phone: Comment on above: Expected: 07/25/2022 , Expires: 09/24/2022 Start: 07-25-2022 End: 07-25-2023 Thyrotropin [Units/volume] in Serum or Plasma TSH BLD Lab Routine Expected: 07/25/2022, Expires: 07/25/2023 [facility] Work Phone: Comment on above: Expected: 07/25/2022 , Expires: 07/25/2023 Start: 07-25-2022 End: 07-25-2023 Thyroxine (T4) free [Mass/volume] in Serum or Plasma T4 FREE/FREE THYROX Lab Routine Expected: 07/25/2022, Expires: 07/25/2023 [facility] Work Phone: Comment on above: Expected: 07/25/2022 , Expires: 07/25/2023 Start: 07-25-2022 End: 09-24-2022 Triiodothyronine (T3) Free [Mass/volume] in Serum or Plasma T3 FREE BLD Lab Routine Expected: 07/25/2022, Expires: 09/24/2022 [facility] Work Phone: Comment on above: Expected: 07/25/2022 , Expires: 09/24/2022 Start: 07-25-2022 End: 09-24-2022 Zinc [Mass/volume] in Serum or Plasma ZINC BLD Lab Routine Memory change Expected: 07/25/2022, Expires: 09/24/2022 [facility] Work Phone: Comment on above: Expected: 07/25/2022 , Expires: 09/24/2022 Start: 06-09-2022 Influenza vaccination [facility] Start: 05-31-2022 FUV, Provider: Mary Anne Snow, Status: Pen, Time: 11:50 AM FUV, Provider: Mary Anne Snow, Status: Pen, Time: 11:50 AM [facility] 250 DO Work Phone: Start: 05-25-2022 FUV, Provider: Mary Anne Snow, Status: Oliverio, Time: 1:00 PM FUV, Provider: Mary Anne Snow, Status: Pen, Time: 1:00 PM [facility] 250 DO Work Phone: Start: 10-09-2021 ADVANCE DIRECTIVE DISCUSSION ADVANCE DIRECTIVE DISCUSSION [facility] Start: 08-07-2019 Pneumococcal Vaccine : 65+ Years (2 - PPSV23 or PCV20) Pneumococcal Vaccine: 65+ Years (2 - PPSV23 or PCV20) [facility] Start: 2006 BONE DENSITY BONE DENSITY [facility] Start: 2006 PNEUMOCOCCAL: 65+ (1 - PCV) PNEUMOCOCCAL: 65+ (1 - PCV) [facility] Start: 2006 PNEUMOVAX AGE 65 AND OVER WITH 5YR LOOKBACK (#1) PNEUMOVAX AGE 65 AND OVER WITH 5YR LOOKBACK (#1) [facility] Start: 1991 SHINGRIX VACCINE (1 of 2) BYRNE GRIX VACCINE (1 of 2) [facility] Start: 1991 Zoster Vaccines (1 of 2) Zoste r Vaccines (1 of 2) [facility] Start: 1963 DTaP/Tdap/Td Vaccine s (1 - Tdap) DTaP/Tdap/Td Vaccines (1 - Tdap) [facility] Start: 1960 Urine microalbumin profile DTA P,TDAP,TD (1 - Tdap) [facility] Start: 1959 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 VISIT ANNUAL PCP TEAM CHRONIC DISEASE VISIT [facility] Start: 1959 BP CONTROLLED (<130/80) BP CON TROLLED (<130/80) [facility] Start: 1946 COVID-19 VACCINE (#1) COVID-19 VACCI NE (#1) [facility] Start: 1946 COVID-19 VACCINE (1) COVID-19 VACCIN E (1) [facility] Start: 05-09-1942 COVID-19 VACCINE (#1) COVID-19 VACCI NE (#1) [facility] Start: 1941 Lipid panel Lipid Panel [facility] Start: 1941 Medicare Annual Well ness Visit Medicare Annual Wellness Visit (AWV) [facility] Start: 1940 Screening for osteoporosis Bone Dens ity Scan [facility] End: 08-21-2023 US.doppler Carotid arteries - bilateral [facility] Service Area Work Phone: Comment on above: Once for 1 Occurrenc es starting 08/21/2023 until 08/21/2023 [facility] Immunizations Immunization Date Immunization Notes Care Provider Germain campos 08-07-2018 pneumococcal conjuga te vaccine, 13 valent Meng Paz Hoy Work Phone: [facility] DO Work Phone: NEGATED: Highlighted row has not occurred!08-08-2022 SARS-CoV-2 mRNA (tozinameran 5y-11y) vaccine Kunal LORA [facility] NEGATED: Highlighted row has not occurred!11-23-2020 influenza virus vaccine, unspecified formulation Kunal LORA [facility] Payers Date Payer Category Payer Medicare AETNA MEDICARE A ETNA MEDICARE PPO [id number] 2021-Present [phone] [address] [place] [address] PPO [id number] 2021 Medicare [id number] 1959 Medicare [id number] 1941 Unknown [id number] 93 1941 Unknown [id number] [id number] 93 1941 Unknown [id number] [id number] 1941 Unknown [id number] [id number] 93 1941 Unknown [id number] [id number] 93 1941 Unknown [id number] [id number] 56 1941 Unknown [id number] [id number] 27 1941 Unknown [id number] [id number] 27 1941 Unknown [id number] [id number] 27 1941 Unknown [id number] [id number] 27 1941 Unknown [id number] [id number] 27 1941 Unknown [id number] 27 1941 Unknown [id number] 259 Private Health Insurance [id number] [id number] Unknown [employer]ET[employer] Social History Date Type Detail Facility Start: 10-31-2022 End: 02-15-2023 Caffeine use Caffeine use [place] [address] DO Work Phone: Comment on above: decaff occasional co ffee, 1-2 cups of ohtt lionel daily; Start: 06-13-2019 End: 04-25-2023 Tobacco smoking status NHIS Never smoked tobacco [facility] Start: 06-13-2019 End: 07-25-2022 Tobacco use and exposure Smokeless tobacco non-user [facility] Start: 1940 Sex Assigned At Female [facility] Start: 12-07-2021 End: 08-21-2023 Exposure to SARS-CoV-2 (event) Not sure [facility] Start: 10-31-2022 End: 02-15-2023 Sex Assigned At Female [facility] Tobacco smoking status Never [facility] Start: 07-07-2020 Sexual orientation Heterosexual (beronica winters) [facility] Tobacco smoking stat us NHIS Tobacco smoking consumption unknown [facility] Work Phone: Start: 1940 Sex Assigned At Not on file [facility] Work Phone: Functional Status Date Assessment Result Facility 04-25-2023 Functional Status N/A [facility] 08-08-2022 Functional Status N/A [facility] Clinical Notes 01-31-2022 to 07-19-2023 Patient InstructionsPatient InstructionsChristiana Montero MD - 05/19/2023 4:[address] - 05/19/2023 3:00 PM EDTTelephone Encounter - Evelyn Flaherty LPN - 02/17/2023 8:17 AM EDT Note Date & Type Note Facility 07-19-2023 Evaluation + Plan note Diagnostic Tests PendingUrine Culture 07/19/23 [facility] 05-22-[address] - 05/22/2023 9:01 AM EDT [facility] FUNCTIONAL MEDICINE FOLLOW UP NUTRITION INSTRUCTIONS Nutrition [...] Lionel Zero Pascha Recipes -Paleo Hot Chocolate: https://Actiwave.[employer]/vegan-hot -chocolate-paleo/ -Keto No Bake Brownie Bites: https://www.[employer]/keto -bp-dcce-vkuqmqk-bites/ -Whole Food Fudge: https://Rue La La/easy-raw -juvri-lhuos-kdear/ 2. Continue focus on the SEAMUS food plan principles previously discussed: -[place]-3 Rich Fish (wild-caught salmon, mackerel, anchovies, sardines, rodrigues): twice per week -Continue grass-fed beef 3-4X/week -Add legumes 3-4X/week Three jamil salad recipe: https://Sava Transmedia/class ys-zmfmy-khsm-salad/ -Add homemade vinaigrette coleslaw or green salad daily Vinegar based coleslaw: https://www.Zao.com/vine zer-rdryl-egcuuhgh/ -Continue nuts/seeds daily I.e. almonds, walnuts, pecans [...] Patient Folder. (Or you can go to https://Feedback.[facility]. org) 2. For nutrition related questions or concerns, Snabboteket message your physician and include Attn: Shelley Mitchell RD at the top of the message. Snabboteket messaging is meant to support implementation of [...] Supplements: Supplements can be ordered from the [facility]'s Online Store: [email or web address] New patients to the Healthy Living Shop will need to enter the provider code FUNCTIONAL to register their account. documented in this encounter [facility] 05-19-2023 Note HNO ID: [id number] Author: Christiana Montero MD Service: ? Author [...] OmegaGenics EPA-DHA 2400 (High Concentrate EPA/DHA liquid) (Tripbod) Take one teaspoon (5 ml) 1 times daily with food UT Synergy (Autowatts) antibacterial Take 1 capsule by mouth twice daily. Brain Misael Capsules (Autowatts) Take 2 tablets by mouth w MEALS. 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 [...] home testnig. Frustrate (more content not included)... [facility] 05-19-2023 Note HNO ID: [id number] Author: Shelley Mitchell RD Service: ? Author [...] to Visit Medication Sig PhytoMulti 60s capsules (Tripbod) Take 2 capsules daily, with meals. Glycine (Pure Encapsulations) Take 1 capsule 3 times daily in divided doses between meals. (1 ygnceqb=756ml) B-Complex Plus (Pure Encapsulations) Take 1 capsule by mouth daily with food. Glutathione (Symwave) Use 20 pumps daily (1000mg) divided doses [...] OmegaGenics EPA-DHA 2400 (High Concentrate EPA/DHA liquid) (Tripbod) Take one teaspoon (5 ml) 1 times daily with food UT Synergy (Autowatts) antibacterial Take 1 capsule by mouth twice daily. Neuromag ( Autowatts ) 90 ct Take 3 capsules per [...] disturbance (HCC) [G30.1, F02.818] Provider Nutrition Notes:Per senior qa engineer R41.3 Memory change (primary encounter diagnosis) F05 [...] recall updated below; some restaurant meals at [facility] (focuses on 'chicken and vegetables'); endorses fish consumption limited to 2X/month Current Adverse Reactions to Foods: previously avoiding wheat, dairy, sugar, grains; not strict with this now Subjective (12/01/21) Weight has been stable: 118-120 Would like more print outs today vs. [employer] ([place]) Subjective (08/06/21) -Daughter christos on line: states [...] Biochemical and L (more content not included)... [facility] 05-19-2023 Note Education ([facility]) ANN MARIE HILL ([id number]) 1940 F Date Time Provider Department 05/19/23 3:00 PM SHELLEY MITCHELL [facility] Reason for Visit: Established Patient [175] [...] daily in divided doses between meals. (1 [id number]) - B-Complex Plus (Pure Encapsulations) Take 1 capsule by mouth daily with food. - Glutathione (Symwave) Use 20 pumps daily (1000mg) divided doses [...] OmegaGenics EPA-DHA 2400 (High Concentrate EPA/DHA liquid) (Tripbod) Take one teaspoon (5 ml) 1 times daily with food - UT Synergy (Autowatts) antibacterial Take 1 capsule by mouth twice daily. - Neuromag ( Autowatts ) 90 ct Take 3 capsules per [...] Encounter Status:Closed by SHELLEY MITCHELL on 05/22/23 [facility] 05-19-2023 Instructions Christiana Montero MD - 05/19/2023 [...] cheese, dairy, whole grains, and eggs. The MANAGER CAMP is 4.1 mg per kilogram of body weight or 1.9 mg per pound. Some high cysteine foods include: Soybeans, raw (609 mg per 1/2 cup) Oat bran, dry (541 mg per 1 cup) Pork ham, roasted (492 mg per 4 oz.) Tuna Fish, light, canned in oil, drained (456 mg per 1 cup) Chicken breast, cooked (444 mg per 4 oz.) [place] breast, cooked (436 mg per 4 oz.) Beef angelo, cooked (408 mg per 4 oz.) Oat bran, cooked (217 mg per 1 cup) Egg, whole, raw, fresh (136 mg per 1 large egg) Harcourt seeds, oil roasted (113 mg per 1 oz.) Cashews, oil-roasted (104 mg per 1 oz.) Peanuts, oil roasted (95 mg per 1 oz.) Dominican cheese, diced (83 mg per 1 oz.) [...] cofactor for the production of glutathione. The MANAGER CAMP value to maximize glutathione production in the [...] peppers may be beneficial Functional Nutrition: per construction secretary Review and implement diet factors recommended through nutritional visit - use your health call or contact centre coach for discussion on how to implement [...] We recommend ordering supplementation online from the [facility] [employer] as they are high quality therapeutic supplements. [employer] [facility] offers an easy to use, convenient way to order supplementation recommended by your provider through the [employer]. All of the products offered are considered high-quality, and adhere to specific criteria for quality and effectiveness including good manufacturing practices, use of clean products, free of fillers, binders, and other antigens. In addition, we follow third constitution party analysis for independent verification of active ingredients. Get started by following three easy steps: A. Visit the following webpage: [email or web address]/ ChannelEyes Statements on this site have not been [...] For issues with your MRN please call [phone] Stress Management JuiceBoxJungle Neuro -new technology to use a wearable device to retrain brain and focus on nervous system reduction. To learn more of this technology by going to (ype-auq-ooegw) https://Agencourt Bioscience/ Please look into this Heart Rate Variability [...] one of the Heart Math booklets off Selltag that fits your 'go to' emotion - [...] fully) . --- Polyvagal theory (Connor Ybarra) https://www.LinkedIn/ --- Dynamic Neural Retraining System - (Ketty Christensen) https://retrainingthebrain.com/a lor-carolper/ --- Frias Program - (John Frias) Https://www.raeProxino.Precision Ventures/ Finding time for self (no multitasking) at this time to dedicate to breathing / relaxation process. Work on cultivating ted! documented in this encounter [facility] 05-19-2023 History of Presen t illness [...] OmegaGenics EPA-DHA 2400 (High Concentrate EPA/DHA liquid) (Tripbod) Take one teaspoon (5 ml) 1 times daily with food UT Synergy (Autowatts) antibacterial Take 1 capsule by mouth twice daily. Brain Misael Capsules (Autowatts) Take 2 tablets by mouth w MEALS. 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 [...] Phenylacetic,Benzoic, DHPAA Detox Markers Yeast markers Citramalic Hereford 3 Index NOrmal Oxidative stress Lipid 9.7 8OHdg 11 Heavy metals Other Oxalate markers (glyceric, glycolic, oxalic) - all elevated Maritza Nutreval Jun 2020 High Need: Mod Need: All B's Amino acids: Malabsorption markers: Bacterial dysbiosis markers: Fungal dysbiosis markers:arabinose 55 Toxin/detox markers: high Hereford-3 Index: 4.3 Glutathione level:998 Lipid peroxides:8.5 Toxic [...] processed foods. Think of plasminogens for Alzheimer's www.prodrome.Precision Ventures Synapsin - if wishing to use notify [...] cheese, dairy, whole grains, and eggs. The MANAGER CAMP is 4.1 mg per kilogram of body weight or 1.9 mg per pound. Some high cysteine foods include: Soybeans, raw (609 mg per 1/2 cup) Oat bran, dry (541 mg per 1 cup) Pork ham, roasted (492 mg per 4 oz.) Tuna Fish, light, canned in oil, drained (456 mg per 1 cup) Chicken breast, cooked (444 mg per 4 oz.) [place] breast, cooked (436 mg per 4 oz.) Beef angelo, cooked (408 mg per 4 oz.) Oat bran, cooked (217 mg per 1 cup) Egg, whole, raw, fresh (136 mg per 1 large egg) Harcourt seeds, oil roasted (113 mg per 1 oz.) Cashews, oil-roasted (104 mg per 1 oz.) Peanuts, oil roasted (95 mg per 1 oz.) Dominican cheese, diced (83 mg per 1 oz.) [...] cofactor for the production of glutathione. The MANAGER CAMP value to maximize glutathione production in the [...] peppers may be beneficial Functional Nutrition: per construction secretary Review and implement diet factors recommended through nutritional visit - use your health call or contact centre coach for discussion on how to implement [...] We recommend ordering supplementation online from the [facility] ChannelEyes as they are high quality therapeutic supplements. [facility] offers an easy to use, convenient way to order supplementation recommended by your provider through the ChannelEyes. All of the products offered are considered high-quality, and adhere to specific criteria for quality and effectiveness including good manufacturing practices, use of clean products, free of fillers, binders, and other antigens. In addition, we follow third constitution party analysis for independent verification of active ingredients. Get started by following three easy steps: A. Visit the following webpage: https://Solace Lifesciences.Tysdo/ ChannelEyes Statements on this site have not been [...] For issues with your MRN please call [phone] Stress Management [place] [employer] -new technology to use a wearable device to retrain brain and focus on nervous system reduction. To learn more of this technology by going to (osi-nve-zcuag) https://Agencourt Bioscience/ Please look into this Heart Rate Variability [...] one of the Heart Math booklets off Selltag that fits your 'go to' emotion - [...] fully) . --- Polyvagal theory (Connor Ybarra) https://www.connorVTM.com/ --- Dynamic Neural Retraining System - (Ketty Christensen) https://retrainingthebrain.com/a lor-grace/ --- Frias Program - (John Frias) Https://www.Echograph.[employer]ision [employer]ures/ Finding time for self (no multitasking) at this time to dedicate to breathing / relaxation process. Work on cultivating ted! Future Plans (for provider use): I spent a total of 45 minutes on the date of the service which included preparing to see the patient, wxzp-vn-ylky patient care, completing clinical documentation, obtaining and/or reviewing separately obtained history, performing a medically appropriate examination, and ordering medications, tests, or procedures. Christiana Montero MD documented in this encounter [facility] 05-19-2023 History of Presen t illness Narrative [facility] Functional Medicine Nutrition Therapy: Follow-Up Assessment (Individual) IN PERSON Accompanied by her spouse today Patient Name: Ann Marie Hill Past Medical History: PAST MEDICAL HISTORY Diagnosis Date Alzheimer disease (HCC) HTN (hypertension) Allergies: Ciprofloxacin, Penicillins, and Sulfa (Sulfonamide Antibiotics) Current Medications/Supplements Current Outpatient Medications on File Prior to Visit Medication Sig PhytoMulti 60s capsules (Tripbod) Take 2 capsules daily, with meals. Glycine (Pure Encapsulations) Take 1 capsule 3 times daily in divided doses between meals. (1 [id number]) B-Complex Plus (Pure Encapsulations) Take 1 capsule by mouth daily with food. Glutathione (Symwave) Use 20 pumps daily (1000mg) divided doses [...] OmegaGenics EPA-DHA 2400 (High Concentrate EPA/DHA liquid) (Tripbod) Take one teaspoon (5 ml) 1 times daily with food UT Synergy (Autowatts) antibacterial Take 1 capsule by mouth twice daily. Neuromag ( Autowatts ) 90 ct Take 3 capsules per [...] disturbance (HCC) [G30.1, F02.818] Provider Nutrition Notes:Per senior qa engineer R41.3 Memory change (primary encounter diagnosis) F05 [...] recall updated below; some restaurant meals at [facility] (focuses on 'chicken and vegetables'); endorses fish consumption limited to 2X/month Current Adverse Reactions to Foods: previously avoiding wheat, dairy, sugar, grains; not strict with this now Subjective (12/01/21) Weight has been stable: 118-120 Would like more print outs today vs. Snabboteket resources Subjective (08/06/21) -Daughter christos on line: [...] Biochemical and Laboratory Data Conventional/Advanced Testing NutrEval [facility] Date collected: 10/31/2022 Elevated Decreased Oxidative Stress 7 8-OHdG Mitochondrial Dysfunction 7 Magnesium Lactic Acid Isocitric Acid Succinic Acid Malic Acid Hereford Imbalance 3 Toxic Exposure 8 Methylation Imbalance [...] Lionel Zero Pascha Recipes -Paleo Hot Chocolate: https://CleverMiles/vegan-hot -chocolate-paleo/ -Keto No Bake Brownie Bites: https://www.Pacific Star Communications/keto -ew-vfyg-lgjkein-bites/ -Whole Food Fudge: https://Rue La La/easy-raw -byfgt-hnpjv-ybxbs/ 2. Continue focus on the SEAMUS food plan principles previously discussed: -Hereford-3 Rich Fish (wild-caught salmon, mackerel, anchovies, sardines, rodrigues): twice per week -Continue grass-fed beef 3-4X/week -Add legumes 3-4X/week Three jamil salad recipe: https://Sava Transmedia/class en-hduoz-fyfp-salad/ -Add homemade vinaigrette coleslaw or green salad daily Vinegar based coleslaw: https://www.Zao.com/vine znz-rfljt-jpdecycy/ -Continue nuts/seeds daily I.e. almonds, walnuts, pecans [...] idea below) Resources/Educational Materials Provided: sent through [facility] Adherence Potential to Goals/Care Plan: Moderate Nutrition [...] Shelley Mitchell RD documented in this encounter [facility] 04-25-2023 Hospital Discharg e instructions Patient Education 04/25/2023 12:19:15 Urinary Tract Infection, Adult, Rpyj-kw-Bhvb Urinary Tract Infection, Adult A urinary tract [...] Follow these instructions at home: Medicines Take dvqb-pej-dxjggar and prescription medicines only as told by [...] provider. Document Revised: 05/07/2021 Document Reviewed: 05/07/2021 Bucky Box Patient Education 2022 InsightSquared. Follow Up Care 08/08/2022 16:24:54 With:DANIEL BOYER, ELLEN Bell, URL Address: [address] [place] [address] When: Unknown [facility] 02-17-2023 Miscellaneous Notes NUTRITION RESOURCES SENT VIA [employer]. Evelyn Flaherty LPN February 17, 2023 8:17 AM documented in this encounter [facility] 02-16-[address] Hernández RD - 02/16/2023 2:20 PM EDT [facility] MEDICINE FOLLOW UP NUTRITION INSTRUCTIONS Nutrition Follow-up: In 6 months with Kasey Hernández RD. Your Prescribed Nutrition Plan: Seamus (Gluten-Free) 1. Continue with Seamus Food Plan (Dairy-Free/Gluten-Free), with the following targets: -Hereford-3 Rich Fish (wild-caught salmon, mackerel, anchovies, sardines, rodrigues): twice per week -Continue grass-fed beef 3-4X/week -Add legumes 3-4X/week Three jamil salad recipe: https://HouseTab.Precision [employer]ures/class pj-hdbbv-hxwj-salad/ -Add homemade vinaigrette coleslaw or green salad daily Vinegar based coleslaw: https://www.Virtual Bridges.Precision [employer]ures/vine mkk-vkons-sqqymeyr/ -Continue nuts/seeds daily I.e. almonds, walnuts, pecans [...] soup idea below) 2. For bread, use [facility] Brand Base SkillPixels: https://Applico/ (Keto bread near you in [place]) -Avoid starches, canola oil and sugars in [...] Functional Medicine Team (Open M-F 8am-5pm): 1. MailTimehart is the BEST form of communication to reach the Functional Medicine Team, see test results and request refills. Please allow 72 business hours for a response. Directions for signing up are included in your New Patient Folder. (Or you can go to [email or web address]) 2. For nutrition related questions or concerns, Snabboteket message your physician and include Attn: Kasey Hernández RD at the top of the message. Snabboteket messaging is meant to support implementation of [...] Supplements: Supplements can be ordered from the [facility]'s Online Store: [email or web address] New patients to the [facility] will need to enter the provider code FUNCTIONAL to register their account. documented in this encounter [facility] 02-15-2023 Note HNO ID: [id number] Author: Kasey Hernández RD Service: ? Author Type: Registered Dietitian Type: Progress Notes Filed: 02/16/2023 2:20 PM Note Text: [facility] Nutrition Therapy: Follow-Up Assessment (Individual) IN PERSON [...] daily in divided doses between meals. (1 [id number]) B-Complex Plus (Pure Encapsulations) Take 1 capsule by mouth daily with food. Glutathione (Symwave) Use 20 pumps daily (1000mg) divided doses [...] OmegaGenics EPA-DHA 2400 (High Concentrate EPA/DHA liquid) (Tripbod) Take one teaspoon (5 ml) 1 times daily with food UT Synergy (Autowatts) antibacterial Take 1 capsule by mouth twice daily. Neuromag ( Autowatts ) 90 ct Take 3 capsules per [...] Would like more print outs today vs. Snabboteket resources Subjective (08/06/21) -Daughter christos on line: [...] Biochemical and Laboratory Data Conventional/Advanced Testing NutrEval [facility] Date collected: Elevated Decreased Oxidative Stress 7 8-OHdG Mitochondrial Dysfunction 7 Magnesium Lactic Acid Isocitric Acid Succinic Acid Malic Acid Hereford Imbalance 3 Toxic Exposure 8 Methylation Imbalance [...] verbalized inaccurate/incomplete inform (more content not included)... [facility] 02-15-2023 Note Education (MEDN) ANN MARIE HILL ([id number]) 1940 F Date Time Provider Department 02/15/23 [...] as of 02/16/2023 - PhytoMulti 60s capsules (Tripbod) Take 2 capsules daily, with meals. - Glycine (Pure Encapsulations) Take 1 capsule 3 times daily in divided doses between meals. (1 [id number]) - B-Complex Plus (Pure Encapsulations) Take 1 capsule by mouth daily with food. - Glutathione (Symwave) Use 20 pumps daily (1000mg) divided doses [...] OmegaGenics EPA-DHA 2400 (High Concentrate EPA/DHA liquid) (Tripbod) Take one teaspoon (5 ml) 1 times daily with food - UT Synergy (Autowatts) antibacterial Take 1 capsule by mouth twice daily. - Neuromag ( Autowatts ) 90 ct Take 3 capsules per [...] Encounter Status:Closed by KASEY RAE on 02/16/23 [facility] 02-15-2023 History of Presen t illness Narrative [facility] Functional Medicine Nutrition Therapy: Follow-Up Assessment (Individual) IN PERSON Patient Name: Ann Marie Hill Past Medical History: PAST MEDICAL HISTORY Diagnosis Date Alzheimer disease (HCC) HTN (hypertension) Allergies: Ciprofloxacin, Penicillins, and Sulfa (Sulfonamide Antibiotics) Current Medications/Supplements Current Outpatient Medications on File Prior to Visit Medication Sig PhytoMulti 60s capsules (Tripbod) Take 2 capsules daily, with meals. Glycine (Pure Encapsulations) Take 1 capsule 3 times daily in divided doses between meals. (1 [id number]) B-Complex Plus (Pure Encapsulations) Take 1 capsule by mouth daily with food. Glutathione (Symwave) Use 20 pumps daily (1000mg) divided doses [...] OmegaGenics EPA-DHA 2400 (High Concentrate EPA/DHA liquid) (Tripbod) Take one teaspoon (5 ml) 1 times daily with food UT Synergy (Autowatts) antibacterial Take 1 capsule by mouth twice daily. Neuromag ( Autowatts ) 90 ct Take 3 capsules per [...] Would like more print outs today vs. Snabboteket resources Subjective (08/06/21) -Daughter christos on line: [...] Biochemical and Laboratory Data Conventional/Advanced Testing NutrEval [facility] Date collected: Elevated Decreased Oxidative Stress 7 8-OHdG Mitochondrial Dysfunction 7 Magnesium Lactic Acid Isocitric Acid Succinic Acid Malic Acid Hereford Imbalance 3 Toxic Exposure 8 Methylation Imbalance [...] Food Plan (Dairy-Free/Gluten-Free), with the following targets: -Hereford-3 Rich Fish (wild-caught salmon, mackerel, anchovies, sardines, rodrigues): twice per week -Continue grass-fed beef 3-4X/week -Add legumes 3-4X/week Three jamil salad recipe: https://Sava Transmedia/class xp-zcsqj-pjyv-salad/ -Add homemade vinaigrette coleslaw or green salad daily Vinegar based coleslaw: https://www.Zao.com/vine qta-zwgoh-recqhfek/ -Continue nuts/seeds daily I.e. almonds, walnuts, pecans [...] soup idea below) 2. For bread, use [facility] Brand Base Culture: https://Applico/ (Keto bread near you in [place]) -Avoid starches, canola oil and sugars in [...] Kasey Hernández RD documented in this encounter [facility] 02-03-2023 Note HNO ID: [id number] Author: Christiana Montero MD Service: ? Author [...] OmegaGenics EPA-DHA 2400 (High Concentrate EPA/DHA liquid) (Tripbod) Take one teaspoon (5 ml) 1 times daily with food UT Synergy (Autowatts) antibacterial Take 1 capsule by mouth twice daily. Brain Misael Capsules (Autowatts) Take 2 tablets by mouth w MEALS. 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 [...] 2022 Evita Calderon (more content not included)... [facility] 02-03-2023 History of Presen t illness Narrative [...] OmegaGenics EPA-DHA 2400 (High Concentrate EPA/DHA liquid) (Tripbod) Take one teaspoon (5 ml) 1 times daily with food UT Synergy (Autowatts) antibacterial Take 1 capsule by mouth twice daily. Brain Misael Capsules (Autowatts) Take 2 tablets by mouth w MEALS. 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 [...] vitamin deficiency) at this time. Check with construction secretary on how to improve - stressed importance [...] Phenylacetic,Benzoic, DHPAA Detox Markers Yeast markers Citramalic Hereford 3 Index NOrmal Oxidative stress Lipid 9.7 8OHdg 11 Heavy metals Other Oxalate markers (glyceric, glycolic, oxalic) - all elevated Maritza Nutreval Jun 2020 High Need: Mod Need: All B's Amino acids: Malabsorption markers: Bacterial dysbiosis markers: Fungal dysbiosis markers:arabinose 55 Toxin/detox markers: high Hereford-3 Index: 4.3 Glutathione level:998 Lipid peroxides:8.5 Toxic [...] , estradiol FUNCTIONAL MEDICINE PLAN: Meet with construction secretary to review NutrEval (with Christos) due to [...] - use of 2 tablespoons of Galdamez Harcourt Lecithin Powder twice daily Consider Synapsin (compounded nasal spray) to assist for mood / anxiety - notify if wishing to consider. https://Lendinero.Precision Ventures/article/m edication-compounding/rg3-synaps qb-shpek-hbzvs-vojoh-fwjgyx-synj b-jgc-elzqellyx-memory-focus/ Stop the following: Brain Misael Riddle Multi t/d Stop the Functional Nutrition: per construction secretary Review and implement diet factors recommended through nutritional visit - use your health call or contact centre coach for discussion on how to implement [...] We recommend ordering supplementation online from the [facility] as they are high quality therapeutic supplements. [facility] offers an easy to use, convenient way to order supplementation recommended by your provider through the Arisoko Shop. All of the products offered are considered high-quality, and adhere to specific criteria for quality and effectiveness including good manufacturing practices, use of clean products, free of fillers, binders, and other antigens. In addition, we follow third constitution party analysis for independent verification of active ingredients. Get started by following three easy steps: A. Visit the following webpage: https://Solace Lifesciences.Tysdo/ Arisoko Shop Statements on this site have not [...] For issues with your MRN please call [phone] Stress Management [employer] -new technology to use a wearable device to retrain brain and focus on nervous system reduction. To learn more of this technology by going to (cno-sze-xlmeu) https://Agencourt Bioscience/ Please look into this Heart Rate Variability [...] one of the Heart Math booklets off Selltag that fits your 'go to' emotion - [...] --- Frias Program - (John Frias) Https://www.jose rafaelptaProxino.Precision Ventures/ Finding time for self (no multitasking) at this time to dedicate to breathing / relaxation process. Work on cultivating ted! Future Plans (for provider use): I spent a total of 45 minutes on the date of the service which included preparing to see the patient, emef-gs-anqr patient care, completing clinical documentation, obtaining and/or reviewing separately obtained history, performing a medically appropriate examination, and ordering medications, tests, or procedures. Christiana Montero MD documented in this encounter [facility] 10-31-2022 Note HNO ID: [id number] Author: Christiana Montero MD Service: ? Author [...] OmegaGenics EPA-DHA 2400 (High Concentrate EPA/DHA liquid) (Tripbod) Take one teaspoon (5 ml) 1 times daily with food UT Synergy (Autowatts) antibacterial Take 1 capsule by mouth twice daily. Brain Misael Capsules (Autowatts) Take 2 tablets by mouth w MEALS. 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 [...] of Systems Constitutional: (more content not included)... [facility] 10-31-2022 History of Presen t illness Narrative [...] OmegaGenics EPA-DHA 2400 (High Concentrate EPA/DHA liquid) (Tripbod) Take one teaspoon (5 ml) 1 times daily with food UT Synergy (Autowatts) antibacterial Take 1 capsule by mouth twice daily. Brain Misael Capsules (Autowatts) Take 2 tablets by mouth w MEALS. 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 [...] Stopped mold detox - sent labs to [facility] (pending) - home testnig. Frustrated with report [...] Fungal dysbiosis markers:arabinose 55 Toxin/detox markers: high Hereford-3 Index: 4.3 Glutathione level:998 Lipid peroxides:8.5 Toxic [...] daylight exposure (Circadian) rhythm. Functional Nutrition: per construction secretary Review and implement diet factors recommended through nutritional visit - use your health call or contact centre coach for discussion on how to implement [...] We recommend ordering supplementation online from the [facility] as they are high quality therapeutic supplements. Healthy Living Shop [facility] offers an easy to use, convenient way to order supplementation recommended by your provider through the Animated Speech Living Shop. All of the products offered are considered high-quality, and adhere to specific criteria for quality and effectiveness including good manufacturing practices, use of clean products, free of fillers, binders, and other antigens. In addition, we follow third constitution party analysis for independent verification of active ingredients. Get started by following three easy steps: A. Visit the following webpage: https://Solace Lifesciences.Tysdo/ Arisoko Shop Statements on this site have not [...] For issues with your MRN please call [phone] Stress Management [place] [employer] -new technology to use a wearable device to retrain brain and focus on nervous system reduction. To learn more of this technology by going to (pbq-toi-ifbuv) https://Agencourt Bioscience/ Please look into this Heart Rate Variability [...] one of the Heart Math booklets off Selltag that fits your 'go to' emotion - [...] horowitz-grace/ --- Frias Program - (John Frias) Https://www.guptaProxino.Precision [employer]ures/ Finding time for self (no multitasking) at this time to dedicate to breathing / relaxation process. Work on cultivating ted! Future Plans (for provider use): 1. GI Effects? 2. [place]AK[place] Metals? I spent a total of 30 minutes on the date of the service which included preparing to see the patient, jhqu-te-yzhq patient care, completing clinical documentation, obtaining and/or reviewing separately obtained history, performing a medically appropriate examination, counseling and educating the patient/family/caregiver, ordering medications, tests, or procedures, and communicating with other HCPs (not separately reported). Christiana Montero MD documented in this encounter [facility] 10-28-2022 Miscellaneous Notes Spoke with patient's regarding NE urine collection for Monday's lab appointment. Evelyn Flaherty LPN October 28, 2022 12:17 PM documented in this encounter [facility] 10-06-2022 Note PROCEDURE: XR HIP RT [...] authenticated by: ALEXIS CAAL Date: 2022-10-06 07:37 [facility] 10-06-2022 Note PROCEDURE: XR HIP RT 2 [...] authenticated by: ALEXIS CAAL Date: 2022-10-06 07:37 [facility] 08-08-2022 Hospital Discharg e instructions Patient Education [...] Treatment for this condition includes: Antibiotic medicine. Jibk-eys-wjuhlgs medicines to treat discomfort. Drinking enough water [...] Follow these instructions at home: Medicines Take ueka-dri-cyohmth and prescription medicines only as told by [...] 07/05/2006 Document Revised: 09/12/2019 Document Reviewed: 04/04/2019 Bucky Box Patient Education 2020 InsightSquared. Follow Up Care 01/31/2022 15:18:00 With:GENO WATTS, Kunal Heller, URL Address: [facility] [address], [place] [address]- [phone] When:04/08/2023 [facility]ito 07-25-2022 Note HNO ID: [id number] Author: Christiana Montero MD Service: ? Author [...] saccharomyces boullardi 2 hrs away from nystatin/candibactin/diflucan. Ymxu-Dcwm-RR (Innoviti) Take 1 capsule, 2 times daily with 4 oz or more of water. Glutathione (Symwave) - Liver support/detox Use 8 pumps daily , divided doses through out the day. (2 pumps = 100 mg Glutathione). Work up slowly to the higher dose. B-Complex Plus (Pure Encapsulations) Take 2 capsules by mouth daily with food. Multi t/d 60 ct. (Pure Encapsulations) - multivitamin Take 1 capsule by mouth twice daily with meals. OmegaGenics EPA-DHA 2400 (High Concentrate EPA/DHA liquid) (Tripbod) Take one teaspoon (5 ml) 1 times daily with food UT Synergy (Autowatts) antibacterial Take 1 capsule by mouth twice daily. Brain Misael Capsules (Autowatts) Take 2 tablets by mouth w MEALS. Neuromag ( Autowatts ) 90 ct Take 3 capsules per [...] no vitals file (more content not included)... [facility] 07-25-2022 Instructions Christiana Montero MD - 07/25/2022 12:38 PM EDT FUNCTIONAL MEDICINE PLAN: Mold testing - will review in coming days your recent test to determine if binders are beneficial at this time. I may recommend use of binder (remove of mold) depending on testing. NutrEval - will send to your residence. (Accessory Addict Society blood/urine kit to assess for nutritional stores)---> [...] as nutritional evaluation) . Functional Nutrition: Per Historical Guide Review and implement diet factors recommended through nutritional visit - use your health call or contact centre coach for discussion on how to implement Supplement Support Review supplements - Based upon your lab assessments we may further recommend you consider additional items to these to supplement. No orders of the defined types were placed in this encounter. REMINDERS: Ordering Supplementation: We recommend ordering supplementation online from the [facility] Healthy Living Shop. It is felt these are high quality therapeutic supplements. Healthy Living Shop (https://store.BISSELL Pet Foundation) [facility] offers an easy to use, convenient way to order supplementation recommended by your provider through the Animated Speech Living Shop. All of the products offered are considered high-quality, and adhere to specific criteria for quality and effectiveness including good manufacturing practices, use of clean products, free of fillers, binders, and other antigens. In addition, we follow third constitution party analysis for independent verification of active ingredients. Get started by following three easy steps: A. Visit the webpage: https://Solace Lifesciences.Tysdo/ ChannelEyes Statements on this site have not been [...] For issues with your MRN please call [phone] Stress Management JuiceBoxJungle Neuro -new technology to use a wearable device to retrain brain and focus on nervous system reduction. To learn more of this technology by going to (xpk-lwc-ratpx) https://A[employer]court [employer]ience/ Behavioral Health Therapist: If I recommended counseling [...] one of the Heart Math booklets off Selltag that fits your 'go to' emotion - [...] Eduardo Gordon. (also has an poncho on Viewex / Satya Inti Dharma) Insight Meditation Timer- (Free)-Great all-around poncho to [...] lor-grace/ --- Frias Program - (John Frias) Https://www.raeProxino.Precision Ventures/ Finding time for yourself (no multitasking) at this time to dedicate to breathing / relaxation process. Work on cultivating ted! You deserve it! documented in this encounter [facility] 07-25-2022 History of Presen t illness [...] saccharomyces boullardi 2 hrs away from nystatin/candibactin/diflucan. Mwip-Kesi-LW (Innoviti) Take 1 capsule, 2 times daily with 4 oz or more of water. Glutathione (Symwave) - Liver support/detox Use 8 pumps daily , divided doses through out the day. (2 pumps = 100 mg Glutathione). Work up slowly to the higher dose. B-Complex Plus (Pure Encapsulations) Take 2 capsules by mouth daily with food. Multi t/d 60 ct. (Pure Encapsulations) - multivitamin Take 1 capsule by mouth twice daily with meals. OmegaGenics EPA-DHA 2400 (High Concentrate EPA/DHA liquid) (Tripbod) Take one teaspoon (5 ml) 1 times daily with food UT Synergy (Autowatts) antibacterial Take 1 capsule by mouth twice daily. Brain Misael Capsules (Autowatts) Take 2 tablets by mouth w MEALS. Neuromag ( Autowatts ) 90 ct Take 3 capsules per [...] NutrEval - will send to your residence. (Accessory Addict Society blood/urine kit to assess for nutritional stores)---> [...] as nutritional evaluation) . Functional Nutrition: Per Historical Guide Review and implement diet factors recommended through nutritional visit - use your health call or contact centre coach for discussion on how to implement Supplement Support Review supplements - maintain your B support at this time and Brain Misael only. Wait on Multivitamin until you have completed NutrEval for 2021. REMINDERS: Ordering Supplementation: We recommend ordering supplementation online from the [facility] ChannelEyes. It is felt these are high quality therapeutic supplements. ChannelEyes (https://Solace Lifesciences.BISSELL Pet Foundation) [facility] offers an easy to use, convenient way to order supplementation recommended by your provider through the ChannelEyes. All of the products offered are considered high-quality, and adhere to specific criteria for quality and effectiveness including good manufacturing practices, use of clean products, free of fillers, binders, and other antigens. In addition, we follow third constitution party analysis for independent verification of active ingredients. Get started by following three easy steps: A. Visit the webpage: https://Solace Lifesciences.Tysdo/ ChannelEyes Statements on this site have not been [...] For issues with your MRN please call [phone] Stress Management JuiceBoxJungle Neuro -new technology to use a wearable device to retrain brain and focus on nervous system reduction. To learn more of this technology by going to (xbj-dkx-giycp) https://[employer]ience/ Behavioral Health Therapist: If I recommended counseling [...] one of the Heart Math booklets off Selltag that fits your 'go to' emotion - [...] Eduardo Gordon. (also has an poncho on Viewex / Google SageQuest) Insight Meditation Timer- (Free)-Great all-around poncho to [...] fully) . --- Polyvagal theory (Connor Ybarra) https://www.stephenVTM.com/ --- Dynamic Neural Retraining System - (Ketty Christensen) https://retrainingthebrain.com/a chioie-hopper/ --- Frias Program - (John Frias) Https://www.BensataptaProxino.Precision Ventures/ Finding time for yourself (no multitasking) at this time to dedicate to breathing / relaxation process. Work on cultivating ted! You deserve it! I spent a total of 60 minutes on the date of the service which included preparing to see the patient, ssxo-ea-iems patient care, completing clinical documentation, obtaining and/or reviewing separately obtained history, counseling and educating the patient/family/caregiver, ordering medications, tests, or procedures, independently interpreting results (not separately reported), and communicating results to the patient/family/caregiver. Christiana Montero MD documented in this encounter [facility] 03-18-2022 Instructions Evita Calderon MD - [...] encounter. I recommend the supplements from the [facility] Terressentia Online Store at https://Solace Lifesciences.Tysdo/ as we have thoroughly evaluated the research and use only highest quality supplements. Please use code: functional. Future Plans: Mold Memory Follow up: Please schedule a follow up visit with the following Caregivers: Provider: [address] Montero in person LIFESTYLE PRESCRIPTION Functional Nutrition: Per senior qa engineer Sleep: Sleep goal for most adults is [...] Health Coaching: Please consider scheduling with our [place] for [facility] health coaches for a phone or virtual visit for accountability, goal setting and help with behavior change of address clerk the next 6-8 weeks to be successful with your goals. [phone]. Smart phone apps to begin a meditative [...] on your diet plan discussed with our senior qa engineer, allowing for gentle detoxification and decreasing inflammation - while we are gathering your lab results and combining those with your complete history to formulate a very personalized treatment plan. LAB results: Due to the complexity of the testing performed, we are not able to review labs via [facility] or over the phone, but please know, [...] Also make sure to schedule with the senior qa engineer (this will not happen automatically) as you [...] appointment. You can access them on the Accessory Addict Society website and it can be beneficial if you review them prior to your next visit. www.The Moment.net. Read about NutrEval if this was ordered. documented in this encounter [facility] 03-18-2022 History of Presen t illness [...] saccharomyces boullardi 2 hrs away from nystatin/candibactin/diflucan. Sibo-Jhzj-RT ([employer]) Take 1 capsule, 2 times daily with 4 oz or more of water. Glutathione (Symwave) - Liver support/detox Use 8 pumps daily , divided doses through out the day. (2 pumps = 100 mg Glutathione). Work up slowly to the higher dose. B-Complex Plus (Pure Encapsulations) Take 2 capsules by mouth daily with food. Multi t/d 60 ct. (Pure Encapsulations) - multivitamin Take 1 capsule by mouth twice daily with meals. OmegaGenics EPA-DHA 2400 (High Concentrate EPA/DHA liquid) (Tripbod) Take one teaspoon (5 ml) 1 times daily with food UT Synergy (Autowatts) antibacterial Take 1 capsule by mouth twice daily. Brain Misale Capsules (Autowatts) Take 2 tablets by mouth w MEALS. Neuromag ( Autowatts ) 90 ct Take 3 capsules per [...] 22.31 kg/(m^2). Bioelectrical Impedance Analysis Results by [employer] Recent Results from: 03/18/22 at 13:34 [...] Fungal dysbiosis markers:arabinose 55 Toxin/detox markers: high [place]ord-3 Index: 4.3 Glutathione level:998 Lipid peroxides:8.5 Toxic [...] encounter. I recommend the supplements from the [facility] Animated Speech Living Store Online Store at https://store.Tysdo/ as we have thoroughly evaluated the research and use only highest quality supplements. Please use code: functional. Future Plans: Follow up: Please schedule a follow up visit with the following Caregivers: Provider: [address] Montero in person LIFESTYLE PRESCRIPTION Functional Nutrition: Per senior qa engineer Sleep: Sleep goal for most adults is [...] Health Coaching: Please consider scheduling with our [place] [facility] health coaches for a phone or virtual visit for accountability, goal setting and help with behavior change of address clerk the next 6-8 weeks to be successful with your goals. [phone]. Smart phone apps to begin a meditative [...] on your diet plan discussed with our senior qa engineer, allowing for gentle detoxification and decreasing inflammation - while we are gathering your lab results and combining those with your complete history to formulate a very personalized treatment plan. LAB results: Due to the complexity of the testing performed, we are not able to review labs via [facility] or over the phone, but please know, [...] Also make sure to schedule with the senior qa engineer (this will not happen automatically) as you [...] appointment. You can access them on the Accessory Addict Society website and it can be beneficial if you review them prior to your next visit. www.The Moment.net. Read about NutrEval if this was ordered. *Evita Calderon MD I spent a total of 30 minutes on the date of the service which included dsas-by-jamk patient care, completing clinical documentation, obtaining and/or reviewing separately obtained history, performing a medically appropriate examination, counseling and educating the patient/family/caregiver and ordering medications, tests, or procedures. documented in this encounter [facility] 03-02-2022 Instructions EMMA Smalls - 03/02/2022 [...] in more information, contact our office at [phone]. We are happy to hear that Orestes [...] providers located near your home: Sarah Morataya POLICE DETENTION ATTENDANT & Adriana Andrews POLICE DETENTION ATTENDANT [facility], [address]. ([phone]). When there is a diagnosis of dementia, no matter the type, we encourage families to educate themselves, learn communication tips, and learn ways to adjust expectations over time. There are many resources available online. Three excellent resources are: The Alzheimer's Association (web site: alz.org/corado) available 24 hours a day, 7 days per week. Contact: Local: ; Toll free: [phone] We recommend family explore the Alzheimer's Association website to learn more about managing behavioral symptoms. You can click on the following tabs to gather more information on managing specific behaviors. Click on HELP AND SUPPORT -> CAREGIVING -> STAGES AND BEHAVIOR Family Caregiver [place] (web site: Caregiver.org) [employer]-- a secure online solution for quality information, support, and resources for family caregivers. Contact: Toll-free number: [phone] Alzheimers.gov Find Alzheimer disease and related dementias [...] is needed, please call our social media assistant EMMA Smalls at [phone]. As per our discussion of advanced directives, we understand you have these documents in place which is excellent. We have obtained a copy that will be scanned into your medical record. We would like you to return to [facility] for a follow up visit in 9-12 months. Our office can be reached by calling [phone] Option 1. Sincerely, MD Philomena Hampton RN Tangy Kirtz, [facility], [facility] EMMA Smalls documented in this encounter [facility] 03-02-2022 Nurse Note Ann Marie Hill is a 81 year old year old right handed woman Accompanied by: spouse. 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 Pt states that she is here for a check-up Vital Signs: BP 115/53 (BP Site: Left Arm, BP Position: Sitting, BP Cuff Size: Regular Adult) Pulse 75 Wt 56.6 kg (124 lb 12.8 oz) BMI 22.83 kg/m Philomena Mondragon RN documented in this encounter [facility] 03-02-2022 History of Presen t illness Narrative Reason for Consult: Alzheimer's dementia I had the pleasure of seeing this 81 year old year old female at the [facility]. The patient is referred by Evita Yinlid chris [place] [phone] Patient is accompanied by and information obtained [...] are local; other two sons live in [place] and [place]). Housing: Lives with spouse Pt is occasionally left home alone if she is sleeping Agencies involved: Caregiver from [facility] visits once per week to stay with the pt while spouse runs errands. [employer] friends also assist. ADL'S: Independent with dressing, [...] saccharomyces boullardi 2 hrs away from nystatin/candibactin/diflucan. Pner-Zhvo-JD (Innoviti) Take 1 capsule, 2 times daily with 4 oz or more of water. Glutathione (Symwave) - Liver support/detox Use 8 pumps daily , divided doses through out the day. (2 pumps = 100 mg Glutathione). Work up slowly to the higher dose. B-Complex Plus (Pure Encapsulations) Take 2 capsules by mouth daily with food. Multi t/d 60 ct. (Pure Encapsulations) - multivitamin Take 1 capsule by mouth twice daily with meals. OmegaGenics EPA-DHA 2400 (High Concentrate EPA/DHA liquid) (Tripbod) Take one teaspoon (5 ml) 1 times daily with food UT Synergy (Autowatts) antibacterial Take 1 capsule by mouth twice daily. Brain Misael Capsules (Autowatts) Take 2 tablets by mouth w MEALS. Neuromag ( Autowatts ) 90 ct Take 3 capsules per [...] which included preparing to see the patient, mxgs-rm-yovf patient care, performing a medically appropriate examination, completing clinical documentation, and on counseling/ eductaing the patient and the family. Han Britton MD documented in this encounter [facility] 01-31-2022 Hospital Discharg e instructions Patient [...] reconstructed. Follow these instructions at home: Take cfzo-eeu-dqzuanw and prescription medicines only as told by [...] 10/21/2016 Document Revised: 05/08/2019 Document Reviewed: 05/08/2019 Bucky Box Patient Education 2020 InsightSquared. Follow Up Care 08/02/2021 15:26:51 With:GENO WATTS, Kunal Heller, URL Address: [facility] [address] , [place] [address]- [phone] When: Unknown [facility] Evaluation + Plan note Future Appointments Appointment Date:08/08/2022 02:45:00 PM Scheduled Provider:Kunal LORA MD Location:[facility] Appointment Type:URO Office Visit [facility] Evaluation + Plan note Future Appointments Appointment Date:08/10/2022 08:45:00 AM Scheduled Provider: Location:[facility] Appointment Type:URO Nurse Visit Appointment Date:04/17/2023 02:30:00 PM Scheduled Provider:Kunal LORA MD Location:[facility] Appointment Type:URO Office Visit [facility] Evaluation + Plan note Future Appointments Appointment Date:04/17/2023 02:30:00 PM Scheduled Provider:Kunal LORA MD Location:[facility] Appointment Type:URO Office Visit [facility] Evaluation + Plan note Future Appointments Appointment Date:04/24/2023 02:15:00 PM Scheduled Provider:Kunal LORA MD Location:[facility] Appointment Type:URO Office Visit [facility] Evaluation note Diagnosis Cognitive communication deficit- Primary Alzheimer's dementia with behavioral disturbance, unspecified timing of dementia onset (HCC) documented in this encounter [facility] note* Diagnosis 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 documented in this encounter [facility] note* Diagnosis 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 Alzheimer's dementia with behavioral disturbance, unspecified timing of dementia onset documented in this encounter [facility] note* Diagnosis Memory change- Primary Memory loss [...] behavioral disturbance (HCC) [facility] Diagnosis 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 Unspecified vitamin B deficiency Chemical exposure Contact with and (suspected) exposure to other potentially hazardous chemicals Poor diet Unspecified nutritional deficiency Impaired nutrient utilization [facility] Diagnosis 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 Unspecified vitamin B deficiency Poor diet Unspecified nutritional deficiency Dietary counseling and surveillance Dietary surveillance and counseling [facility] Diagnosis Memory change- Primary Memory loss Sundowning Reactive confusion Poor diet Unspecified nutritional deficiency Chemical exposure Contact with and (suspected) exposure to other potentially hazardous chemicals [facility] Diagnosis 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 Sundowning Reactive confusion Dietary counseling and surveillance Dietary surveillance and counseling [facility] Diagnosis Carotid stenosis, bilateral Occlusion and stenosis of carotid artery without mention of cerebral infarction Benign hypertension Essential hypertension, benign documented in this encounter [facility] Work Phone: Evaluation note* Diagnosis Carotid stenosis, bilateral Occlusion and stenosis of carotid artery without mention of cerebral infarction Benign hypertension Essential hypertension, benign documented in this encounter [facility] Work Phone: History of Present illness Narrative* [...] reviewed with her her recent lab work -[facility] 250 DO Work Phone: History of [...] me change in cardiac status or symptoms [facility] 250 DO Work Phone: History of Present [...] try to retrieve her recent lab work [facility] 250 DO Work Phone: Hospital course Narrative No data available for this section [facility] Hospital Discharge instructions No data available for this section [facility] progress note No data available for this section [facility] Summary Purpose Family History No Family History [...] FoundDocuments on File Type Date Recorded Patient Turner Off Expl anation Advance Directive(s) 03/02/2022 2:05 PM Ad torres Directive Documents on File Type Date Recorded Patient Turner Off Expl anation Advance Directive(s) 03/02/2022 2:05 PM [...] duplex bilateral Mary Anne Snow MD [address] [address] Referral ID Status Reason Start Date Expiration Date Visits Requested Visits Authorized [id number] Authorized Perform Procedure 06/25/2023 12/22/2023 1 1 Specialty Diagnoses / Procedures Referred By Contac t Referred To Contact Psychiatry / ADULT PSYCHIATRY Diagnoses Alzheimer's dementia with behavioral disturbance, unspecified timing of dementia onset Procedures CONSULT TO PSYCHIATRY OFFICE/OUTPATIENT [facility] 60-74 MINUTES Evita Calderon MD [address] [place] [address] Hemal Hopper MD [address] [place] [address] Referral ID Status Reason Start Date Expiration Date Visits Requested Visits Authorized [id number] Pending Review PCP Requested Referral 06/17/2022 06/17/2023 1 1 Specialty Diagnoses / Procedures Referred By Contac t Referred To Contact [facility] Diagnoses Cognitive communication deficit Procedures CONSULT TO SPEECH THERAPY OFFICE/OUTPATIENT [facility] 60-74 MINUTES Han Britton MD [address] [place] [address] [facility] [place] [address] Referral ID Status Reason Start Date Expiration Date Visits Requested Visits Authorized [id number] Pending Review Auto-Generat ed Referral 03/02/2022 03/02/2023 1 1 Additional Source Comments INFORMATION SOURCE (unrecogn ized section and content) DATE CREATED AUTHOR 04/03/2018 [facility] DATE CREATED AUTHOR AUTHOR'S ORGANIZ ATION 06/25/2020 [facility] DATE CREATED AUTHOR AUTHOR'S ORGANIZ ATION 11/07/2022 [facility] DATE CREATED AUTHOR AUTHOR'S ORGANIZ ATION 05/22/2023 [facility] DATE CREATED AUTHOR AUTHOR'S ORGANIZ ATION 06/07/2023 [facility] DATE CREATED AUTHOR AUTHOR'S ORGANIZ ATION 06/07/2023 [facility] DATE CREATED AUTHOR AUTHOR'S ORGANIZ ATION 07/23/2023 [facility] DATE CREATED AUTHOR AUTHOR'S ORGANIZ ATION 09/22/2023 [facility] Specialists EPIC Source Comments (unrecognize d section and content) In the event this informatio n is protected by the Federal Confidentiality of Alcohol and Drug Abuse Patient Records regulations: The Federal rules restrict any use of the information to criminally investigate or prosecute any alcohol or drug abuse patient.[facility] the event this information is protected by the Federal Confidentiality of Alcohol and Drug Abuse Patient Records regulations: The Federal rules restrict any use of the information to criminally investigate or prosecute any alcohol or drug abuse patient.[facility] HospitalIn the event this information is protected by the Federal Confidentiality of Alcohol and Drug Abuse Patient Records regulations: The Federal rules restrict any use of the information to criminally investigate or prosecute any alcohol or drug abuse patient.[facility] HospitalIn the event this information is protected by the Federal Confidentiality of Alcohol and Drug Abuse Patient Records regulations: The Federal rules restrict any use of the information to criminally investigate or prosecute any alcohol or drug abuse patient.[facility]In the event this information is protected by the Federal Confidentiality of Alcohol and Drug Abuse Patient Records regulations: The Federal rules restrict any use of the information to criminally investigate or prosecute any alcohol or drug abuse patient.[facility]In the event this information is protected by the Federal Confidentiality of Alcohol and Drug Abuse Patient Records regulations: The Federal rules restrict any use of the information to criminally investigate or prosecute any alcohol or drug abuse patient.[facility] HospitalIn the event this information is protected by the Federal Confidentiality of Alcohol and Drug Abuse Patient Records regulations: The Federal rules restrict any use of the information to criminally investigate or prosecute any alcohol or drug abuse patient.[facility]In the event this information is protected by the Federal Confidentiality of Alcohol and Drug Abuse Patient Records regulations: The Federal rules restrict any use of the information to criminally investigate or prosecute any alcohol or drug abuse patient.[facility]In the event this information is protected by the Federal Confidentiality of Alcohol and Drug Abuse Patient Records regulations: The Federal rules restrict any use of the information to criminally investigate or prosecute any alcohol or drug abuse patient.[facility] HospitalIn the event this information is protected by the Federal Confidentiality of Alcohol and Drug Abuse Patient Records regulations: The Federal rules restrict any use of the information to criminally investigate or prosecute any alcohol or drug abuse patient.[facility] HospitalIn the event this information is protected by the Federal Confidentiality of Alcohol and Drug Abuse Patient Records regulations: The Federal rules restrict any use of the information to criminally investigate or prosecute any alcohol or drug abuse patient.[facility] HospitalIn the event this information is protected by the Federal Confidentiality of Alcohol and Drug Abuse Patient Records regulations: The Federal rules restrict any use of the information to criminally investigate or prosecute any alcohol or drug abuse patient.[facility] HospitalIn the event this information is protected by the Federal Confidentiality of Alcohol and Drug Abuse Patient Records regulations: The Federal rules restrict any use of the information to criminally investigate or prosecute any alcohol or drug abuse patient.[facility] HospitalIn the event this information is protected by the Federal Confidentiality of Alcohol and Drug Abuse Patient Records regulations: The Federal rules restrict any use of the information to criminally investigate or prosecute any alcohol or drug abuse patient.[facility] HospitalIn the event this information is protected by the Federal Confidentiality of Alcohol and Drug Abuse Patient Records regulations: The Federal rules restrict any use of the information to criminally investigate or prosecute any alcohol or drug abuse patient.[facility] HospitalIn the event this information is protected by the Federal Confidentiality of Alcohol and Drug Abuse Patient Records regulations: The Federal rules restrict any use of the information to criminally investigate or prosecute any alcohol or drug abuse patient.[facility] HospitalIn the event this information is protected by the Federal Confidentiality of Alcohol and Drug Abuse Patient Records regulations: The Federal rules restrict any use of the information to criminally investigate or prosecute any alcohol or drug abuse patient.[facility] HospitalIn the event this information is protected by the Federal Confidentiality of Alcohol and Drug Abuse Patient Records regulations: The Federal rules restrict any use of the information to criminally investigate or prosecute any alcohol or drug abuse patient.[facility] Care Teams (unrecognized sec tion and content) Firer Low Pressure Relationship Specialty Start Date End Date Meng Prater MD [address] [place] [id number] PCP - General Family Practice 07/15/20 Firer Low Pressure Relationship Specialty Start Date End Date Meng Prater MD [address] [place] [address] PCP - General Family Practice 07/15/20 Firer Low Pressure Relationship Specialty Start Date End Date Meng Prater MD [address] [place] [address] PCP - General Family Practice 07/15/20 Firer Low Pressure Relationship Specialty Start Date End Date Meng Prater MD [address] [place] [address] PCP - General Family Practice 07/15/20 Firer Low Pressure Relationship Specialty Start Date End Date Meng Prater MD [address] [id number] PCP - General Family Medicine 07/15/20 Firer Low Pressure Relationship Specialty Start Date End Date Meng Prater MD [address] [place] [address] PCP - General Family Medicine 07/15/20 Firer Low Pressure Relationship Specialty Start Date End Date Meng Prater MD [address] [id number] PCP - General Family Medicine 07/15/20 Firer Low Pressure Relationship Specialty Start Date End Date Meng Prater MD [address] [place] [address] PCP - General Family Medicine 07/15/20 Firer Low Pressure Relationship Specialty Start Date End Date Meng Prater MD [address] [id number] PCP - General Family Medicine 07/15/20 Firer Low Pressure Relationship Specialty Start Date End Date Meng Prater MD PCP - General Family Medicine 07/15/20 Firer Low Pressure Relationship Specialty Start Date End Date Meng Prater MD PCP - General Family Medicine 07/15/20 Firer Low Pressure Relationship Specialty Start Date End Date Meng Parter MD PCP - General Family Medicine 07/15/20 Firer Low Pressure Relationship Specialty Start Date End Date Meng Prater MD PCP - General Family Medicine 07/15/20 Firer Low Pressure Relationship Specialty Start Date End Date Meng Prater MD PCP - General Family Medicine 07/15/20 Firer Low Pressure Relationship Specialty Start Date End Date Meng Prater MD PCP - General Family Medicine 07/15/20 Firer Low Pressure Relationship Specialty Start Date End Date Meng Prater MD PCP - General [facility] Medicine 07/15/20 Firer Low Pressure Relationship Specialty Start Date End Date Meng Prater MD [address] [place] [address] PCP - General 09/11/19 Firer Low Pressure Relationship Specialty Start Date End Date Meng Prater MD [address] [place] [address] PCP - General 09/11/19 Reason for Visit (unrecogniz ed section and content) Reason Comments New Patient Evaluation Specialty Diagnoses / Procedures Referred By Contac t Referred To Contact Neurology / NEUROLOGY Diagnoses Alzheimer's dementia with behavioral disturbance, unspecified timing of dementia onset (HCC) Procedures CONSULT TO NEUROLOGY NEW PATIENT VISIT LEVEL 5 Evita Calderon MD [address] [place] [address] Neur [facility] [address] [place] [address] Referral ID Status Reason Start Date Expiration Date Visits Requested Visits Authorized [id number] Pending Review PCP Requested Referral 04/01/2021 04/01/2022 1 1 Reason Comments Established Patient Reason Comments Established Patient Memory Loss New Patient Reason Comments Patient Question Reason Comments Appointment Specialty Diagnoses / Procedures Referred By Contcorina t Referred To Contact Cardiology Diagnoses Carotid stenosis, bilateral Benign hypertension Procedures Vascular US carotid artery duplex bilateral Mary Anne Snow MD [address] [facility] 2, [address] [address] Referral ID Status Reason Start Date Expiration Date Visits Requested Visits Authorized [id number] Authorized Perform Procedure 06/25/2023 12/22/2023 1 1 [...] BE BASED ON THE PRIMARY CLINICAL RECORDS. [facility] [employer] [facility]. provides no warranty or guarantee of the accuracy or completeness of information in this document.
[2023-10-12 18:54] LABS: Thyroid Stimulating Hormone 1.108 uIU/mL (0.358-3.740)
[2023-10-12] MEDS: 0.9 % SODIUM CHLORIDE 1,000 ML 75 ML IV (19:28)
[2023-10-12 20:02] LABS: Adenovirus NOT DETECTED (NOT DETECTE); Bordetella parapertussis NOT DETECTED (NOT DETECTE); Coronavirus 229E NOT DETECTED (NOT DETECTE); Coronavirus HKU1 NOT DETECTED (NOT DETECTE); Coronavirus NL63 NOT DETECTED (NOT DETECTE); Coronavirus OC43 NOT DETECTED (NOT DETECTE); Human Metapneumovirus NOT DETECTED (NOT DETECTE); Human Rhinovirus/Enterovirus NOT DETECTED (NOT DETECTE); Influenza A NOT DETECTED (NOT DETECTE); Influenza B NOT DETECTED (NOT DETECTE); Mycoplasma pneumoniae NOT DETECTED (NOT DETECTE); Parainfluenza Virus 1 NOT DETECTED (NOT DETECTE); Parainfluenza Virus 2 NOT DETECTED (NOT DETECTE); Parainfluenza Virus 3 NOT DETECTED (NOT DETECTE); Parainfluenza Virus 4 NOT DETECTED (NOT DETECTE); Respiratory Syncytial Virus NOT DETECTED (NOT DETECTE)
[2023-10-12 20:16] LABS: Ammonia <10 umol/L (11-32)
[2023-10-12 20:24] LABS: Lactate/Lactic Acid 1.1 mmol/L (0.4-2.0)
[2023-10-12] MEDS: ASPIRIN 81 MG TABLET.DR PO (20:38)
[2023-10-12] MEDS: CARVEDILOL 12.5 MG TABLET PO (20:38)
[2023-10-12] MEDS: POTASSIUM CHLORIDE 10 MEQ ER TABLET 20 MEQ PO (20:38)
[2023-10-12 20:53] LABS: SARS-CoV-2 DETECTED (NOT DETECTE)
[2023-10-13] VITALS (7 sets, daily range): BP systolic 130–136; BP diastolic 72–74; PULSE 72–74; RESP 18–20; TEMP 36.5–36.7; O2SAT 88–96
[2023-10-13] MEDS: NON-FORMULARY 1 EACH (Rosuvastatin 40 mg tablet) 40 EACH PO (00:03)
[2023-10-13] MEDS: HALOPERIDOL LACTATE 5 MG/ML VIAL IM (00:03)
[2023-10-13] MEDS: HYOSCYAMINE SULFATE 0.125 MG TAB.SUBL SL (01:06)
[2023-10-13] MEDS: ACETAMINOPHEN 500 MG TABLET 1000 MG PO (03:28)
[2023-10-13] MEDS: BENZONATATE 100 MG CAPSULE 200 MG PO ×2 (03:28→13:55)
[2023-10-13 05:36] LABS: Basophils Percent Auto 0.3 % (0.2-2.0); Eosinophils Absolute Auto 0.3 10^3/uL (0.0-0.7); Eosinophils Percent Auto 2.9 % (0.9-7.0); Hematocrit 33.7 % (36.0-48.0); Hemoglobin 11.2 g/dL (12.0-16.0); Immature Granulocytes Abs Auto 0.05 10^3/uL (0.00-0.03); Immature Granulocytes Pct Auto 0.4 % (0.0-0.5); Lymphocytes Absolute Auto 1.6 10^3/uL (1.2-3.8); Lymphocytes Percent Auto 14.1 % (20.5-60.0); Mean Corpuscular HGB Conc 33.2 g/dL (29.9-35.2); Mean Corpuscular Hemoglobin 31.6 pg (26.7-34.0); Mean Corpuscular Volume 95.2 fL (81.0-99.0); Monocytes Absolute Auto 0.8 10^3/uL (0.3-0.8); Monocytes Percent Auto 6.5 % (1.7-12.0); Neutrophils Absolute Auto 8.7 10^3/uL (1.4-6.5); Neutrophils Percent Auto 75.8 % (43.0-75.0); Platelet Count 251 10^3/uL (150-450); Red Blood Count 3.54 10^6/uL (4.20-5.40); White Blood Count 11.5 10^3/uL (4.0-11.0)
[2023-10-13 05:53] LABS: Alanine Aminotransferase 39 U/L (14-59); Albumin Globulin Ratio 0.5; Albumin Level 2.2 g/dL (3.4-5.0); Alkaline Phosphatase 82 U/L (46-116); Anion Gap 7.5; Aspartate Amino Transferase 27 U/L (15-37); BUN Creatinine Ratio 25.5; Bilirubin Total 0.3 mg/dL (0.2-1.0); Carbon Dioxide 27.5 mmol/L (21.0-32.0); Chloride 102 mmol/L (98-107); Estimated GFR (African America >60 (>=60); Estimated GFR (Non-African Ame 57 (>=60); Globulin 4.5 g/dL; Glucose 107 mg/dL (74-106); Sodium 134 mmol/L (136-145); Total Protein 6.7 g/dL (6.4-8.2)
--- NOTE | 2023-10-13 07:46 | PM.PN ---
Progress Note: Subjective Subjective Interval history: Patient was seen and evaluated in the office with altered mental status. did describe 2 episodes where patient was essentially verbally unresponsive. Patient was referred to ER for neurological changes. In ER the workup so far has been unremarkable from a neurological standpoint. CT scan was unchanged from previous. Patient was admitted for workup and treatment of same. Patient also with significant cough cough and left lower lobe infiltrate, respiratory panel done up on the floor confirmed COVID-positive. She has been symptomatic for over a week. Exam Constitutional Vital Signs, click to edit/add: Last Vital Signs Temp 98.1 F 10/13/23 05:22 Pulse 74 10/13/23 05:22 Resp 20 10/13/23 05:22 BP 136/72 10/13/23 05:22 Pulse Ox 90 L 10/13/23 05:22 O2 Del Method Room Air 10/13/23 05:22 O2 Flow Rate 2 10/12/23 18:52 Documenting provider has reviewed patient's vital signs: yes Common normals: no apparent distress HENMT Common normals: normocephalic Respiratory Common normals: normal respiratory effort and no retractions Cardio Common normals: regular rate and regular rhythm Neuro Common normals: CN's II-XII intact bilaterally and moves all extremities; not oriented x3 Progress Note: Objective Labs Labs: Short CBC 10/12/23 10/13/23 Range/Units 16:10 05:27 WBC 16.4 H 11.5 H (4.0-11.0) 10^3/uL Hgb 11.8 L 11.2 L (12.0-16.0) g/dL Hct 35.5 L 33.7 L (36.0-48.0) % Plt Count 274 251 (150-450) 10^3/uL BMP 10/12/23 10/13/23 16:10 05:27 Sodium 133 L 134 L Potassium 3.0 L 3.0 L Chloride 95 L 102 Carbon Dioxide 28.6 27.5 BUN 31.0 H 24.0 H Creatinine 1.34 H 0.94 Glucose 132 H 107 H Calcium 9.6 9.0 Liver Function 10/13/23 Range/Units 05:27 Total Bilirubin 0.3 (0.2-1.0) mg/dL AST 27 (15-37) U/L ALT 39 (14-59) U/L Alkaline Phosphatase 82 (46-116) U/L Albumin 2.2 L (3.4-5.0) g/dL Urine 10/12/23 Range/Units 16:15 Urine Color Yellow (YELLOW) Urine Clarity Cloudy A (CLEAR) Urine pH 6.0 (5.0-9.0) Ur Specific [place] 1.020 (1.005-1.025) Urine Protein 30 A (NEG/TRACE) mg/dL Urine Glucose (UA) Negative (NEGATIVE) mg/dL Progress Note: A&P Assessment and Plan (1) Urinary tract infection: (2) COVID-19: Plan Patient admitted with altered mental status. This is likely combination of her dementia at baseline, UTI, COVID-19 -check MRI scan today, assuming it is negative and she really needs vital signs stable she can be discharged home. She is past time to treat with Paxlovid. Improving with and IV antibiotics for the UTI and left lower lobe pneumonia. Maintain that at home.-Follow-up I understand there is some insurances do not cover that . Likely discharge to home later today. Medications see list. Follow-up in the office just as needed. Urinary Catheter Management Urinary Catheter Management Straight: Cath placed during this visit: yes Urethral indwelling: No Insertion date: 10/12/23 Insertion time: 16:19
[2023-10-13] MEDS: AMLODIPINE BESYLATE 5 MG TABLET 10 MG PO (09:13)
[2023-10-13] MEDS: DESVENLAFAXINE SUCCINATE 50 MG TAB.ER.24H PO (09:14)
[2023-10-13] MEDS: POTASSIUM CHLORIDE 10 MEQ ER TABLET 20 MEQ PO (09:14)
[2023-10-13] MEDS: CARVEDILOL 12.5 MG TABLET PO (09:14)
[2023-10-13] MEDS: 0.9 % SODIUM CHLORIDE 1,000 ML 75 ML IV (09:15)
[2023-10-13] MEDS: POTASSIUM CHLORIDE 40 MEQ in 0.9 % SODIUM CHLORIDE 250 ML 67.5 MEQ IV (09:25)
--- NOTE | 2023-10-13 10:31 | CM.NOTE ---
Discussed with pt Important Message From Medicare, pt verbalizes understanding and signs paper. Spoke with pt's also on telephone to explain IMM, pt has some underlying confusion. Both verbalizes understanding. Pt given original and copy placed on pt's chart.
--- NOTE | 2023-10-13 10:34 | CM.NOTE ---
PT recommendation are home with family, no discharge needs identified for pt.
[2023-10-13] MEDS: DIAZEPAM 10 MG/2 ML SYRINGE 5 MG IV (10:57)
--- NOTE | 2023-10-13 11:00 | MR_ITS ---
The [address] [address] Patient Name: ROBERTO HILL MRN: [facility]:[id number] date: 1940 Sex: F Assigned Patient Location: [place] Current Patient Location: [place] Accession/Order Number: [id number] Exam Date: 10/13/2023 11:00 Report Date: 10/13/2023 12:11 At the request of: SAVANA PRATER Procedure: MR head/brain wo con EXAM: MR head/brain wo con HISTORY: AMS COMPARISON: CT head 10/12/2023. Technique: Sagittal T1-weighted and axial T2-weighted, turboFLAIR and diffusion-weighted with ADC map images of the brain were obtained without intravenous contrast. Findings: The T2 weighted and T2/FLAIR images are limited in evaluation due to motion artifact. Otherwise no evidence for intracranial mass lesion, mass effect, midline shift or abnormal extraaxial fluid collection. The ventricles and sulci are normal for age. The DWI/ADC images are without significant motion artifact. No abnormality of reduced diffusion. Normal intravascular flow voids. Moderate to marked cerebral atrophic changes and high signal intensity abnormality in the white matter T-2/flair likely related to sequelae of small vessel ischemic disease. MR/MR head/brain wo con Impression: No evidence for acute infarct. No other acute findings. Electronically authenticated by: ALVA SANCHEZ Date: 10/13/2023 12:11
--- NOTE | 2023-10-16 12:38 | CM.NOTE ---
Attempted to do Discharge follow up phone call with no answer.
--- NOTE | 2023-10-17 16:02 | CM.DCFOLLOWU ---
Person spoke with: Ann Marie How are you feeling? Much better but had to get antibiotic switched How is your pain? No pain Did you understand your discharge instructions? Yes Do you have any questions about your discharge instructions? No Were you given any prescriptions at discharge? Yes had to change antibiotic d/t diarrhea. Dr. Bean changed her to Macrobid Were you able to get your prescriptions filled? Yes Do you understand how to take your medications as ordered? Yes Do you have any questions about your follow up appointment and do you plan to keep your follow up appointment? Yes I will go to f/u appt Is there anything else that you would like to discuss? No Questions/Comments/Concerns/Other:
== END 2023-10-13 14:54 | disposition home or self-care (01) ==
LOC: ER 17:17 → MS 18:29
PROVIDERS: Admitting Provider Family Medicine; Emergency Provider Emergency Medicine; PCP Family Medicine; Visit Provider Family Medicine
DX: N39.0 Urinary tract infection, site not specified (principal); U07.1 COVID-19; J12.82 Pneumonia due to coronavirus disease 2019; J15.9 Unspecified bacterial pneumonia; F03.C0 Unspecified dementia, severe, without behavioral disturbance, psychotic disturbance, mood disturbance, and anxiety; Z79.899 Other long term (current) drug therapy
CPT/HCPCS: 0202U; 36415; 70450; 70551; 71045; 80048; 80053; 81001; 82140; 83605; 84436; 84443; 84481; 84484; 85025; 87040; 87086; 87150; 87186; 93005; 94761; 96361; 96365; 96366; 96367; 96372; 96375; 97161; 99285; G0328; G0378; J0456; J0696; J1630; J3360; J3480

== ENCOUNTER 2023-10-26 14:22 | Outpatient (RCR) | payer MEDICARE, SELFPAY | END 2023-11-03 16:00 | disposition home or self-care (01) | LOC: PT 14:22 | PROVIDERS: PCP Family Medicine; Visit Provider Family Medicine | DX: M25.512 Pain in left shoulder (principal) | CPT/HCPCS: 97110; 97161 ==

== ENCOUNTER 2023-10-31 15:26 | Outpatient (OUT) | payer MEDICARE, SELFPAY ==
--- NOTE | 2023-10-31 | XR_ITS ---
[place] [id number] Patient Name: ROBERTO HILL MRN: [id number] date: 1940 Sex: F Assigned Patient Location: [facility] Current Patient Location: [facility] Accession/Order Number: [id number] Exam Date: 10/31/2023 15:38 Report Date: 10/31/2023 15:58 At the request of: LUIS E RICHARD Procedure: XR ankle LT min 3V PROCEDURE: XR ankle LT min 3V COMPARISON: 09/29/2023 HISTORY: LEFT ANKLE PAIN FINDINGS: BONES:Stable healing distal fibular diaphyseal fracture with callus formation and bony bridging. No new fracture or dislocation. Mild degenerative changes. Enthesopathic spurring of the calcaneus. SOFT TISSUES:Moderate diffuse soft tissue swelling EFFUSION:None visible. OTHER: Negative. XR/XR ankle LT min 3V IMPRESSION: Stable healing fibular fracture Electronically authenticated by: ALEXIS CAAL Date: 10/31/2023 15:58
--- OUTSIDE RECORDS SUMMARY | 2023-10-31 15:39 | XMS_ITS | CCD ---
Author Name Unknown Address [address] [place] [address] Organization [facility] Care Team Providers Care Paste Maker Name Role Phone TRABGLENIS IRBYURDEONTEF Unavailable Unavailable GWENDOLYN MOURDEONTEF Unavailable Unavailable Meng Prater Unavailable Unavailable Unavailable Meng Prater MD Primary Care Provider [phone] Meng Prater Primary Care Physician Meng Prater MD Primary Care Provider [phone] Meng Prater MD Primary Care Provider [phone] DR MENG PRATER Admitting Unavailable JOSI, DR [...] Attending Unavailable JOSI, DR SAWANT Consulting Unavailable DR SAMM GATES Consulting Unavailable DR MENG PRATER Primary Care Unavailable JOSI, DR SAWANT Admitting Unavailable JOSI, DR SAWANT Attending Unavailable JOSI, DR SAWANT Consulting Unavailable AFUA, DR ALEXIS Elizabeth Consulting Unavailable Meng Prater MD Primary Care Provider [phone] MEGN PRATER Primary Care Unavailable MENG PRATER Primary Care Unavailable CHRISTIANA MONTERO Attending Unavailable CHRISTIANA MONTERO Attending Unavailable MENG PRATER Primary Care Unavailable EVITA CALDERON Referring Unavailable MENG PRATER Primary Care Unavailable CHRISTIANA MONTERO Attending Unavailable MENG PRATER Primary Care Unavailable SHELLEY MITCHELL Attending Unavailable MENG PRATER Primary Care Unavailable KASEY RAE Attending Unavaila MENG Vyas Primary Care Unavailable CHRISTIANA MONTERO Attending Unavailable Dr. Mary Anne Snow Referring Unavaila sera Snow, Dr. Zhao Attending UnavailDr. Meng Davison Primary Care Unavail able ELLEN COOK Admitting Unavailable ELLEN COOK Attending Unavailable ELLEN COOK Attending Unavailable Kunal LORA Attending Unavailable Kunal LORA Attending Unavailable Leonor Phillips Attending Unavailable Kunal LORA Attending Unavailable Meng Prater MD Primary Care Provider [phone] MAUREEN BALLESTEROS Attending Unavailable MAUREEN BALLESTEROS Referring Unavailable Allergies Allergy Classification Reported Allergen(s) Allergy Type Date of Onset Reaction(s) Facility (14 sources) Penicillins; Translations: [Penicillins] Allergy to drug (finding) 3 Unknown (qualifier value) [facility] 250 DO Work Phone: (5 sources) Sulfamethoxazole; Translations: [sulfa] Drug Allergy Rash [place] [address] DO Work Phone: (19 sources) Ciprofloxacin; Translations: [CIPROFLOXACIN] Drug Allergy 9 [facility] (3 sources) Penicillins Drug Allergy 3 [facility] (19 sources) Sulfonamides (Antibiotic); Translations: [SULFA (SULFONAMIDE ANTIBIOTICS)] Drug Allergy 9 Rash [facility] (8 sources) Sulfonamides (Antibiotic); Translations: [sulfa drugs] Drug allergy Unknown (qualifier value) [facility] (15 sources) Penicillins Drug Allergy 3 [facility] (7 sources) NITROFURANTOIN, MACROCRYSTALS / Nitrofurantoin, Monohydrate; Translations: [nitrofurantoin] Drug Allergy 1 itching [facility] (1 source) Ciprofloxacin Drug Allergy [facility] (1 source) Penicillins Drug allergy (disorder) 3 [facility] (1 source) Sulfonamides (Antibiotic) Drug allergy (disorder) [facility] Medications Current Medications Medication [...] by mouth once daily. Brain Misael Capsules ([employer]) (12 sources) Start: 07-08-2020 End: 02-04-2023 take 2 tablets by mouth at mealtime Brain Misael Capsules ([employer] CRM) Take 2 tablets by mouth w MEALS. 0 07/08/2020 02/04/2023 Discontinued Start: 07-08-2020 take 2 tablets by [facility] at mealtime Brain Misael Capsules ([employer]) Take 2 tablets by mouth w MEALS. 0 07/08/2020 Active Comment on above: Take 2 tablets by [facility] w MEALS. Clobetasol (7 sources) Corticosteroid [...] by mo uth twice daily with meals. Jefferson-3 350 mg oral capsule (7 sources) Start: 11-23-2020 take 1 capsule by mouth once daily Jefferson-3 350 mg oral capsule mg cap(s), Oral, [...] daily. 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 (2 pumps = 100 mg Glutathione) 0 02/04/2023 Active Comment on above: Use 20 pumps daily ( 1000mg) divided doses through out the day. (2 pumps = 100 mg Glutathione) Glutathione (Medstro) - Liver support/detox (8 sources) Start: 12-01-2021 End: 07-25-2022 Glutathione (Medstro) - Liver support/detox Use 8 pumps daily , divided doses through out the day. (2 pumps = 100 mg Glutathione). Work up slowly to the higher dose. 0 12/01/2021 07/25/2022 Discontinued Start: 12-01-2021 Glutathione (Q eCircle) - Liver support/detox Use 8 pumps daily [...] daily in divided doses between meals. (1 qglqzqq=612kj) 0 02/04/2023 Active Comment on above: Take 1 capsule 3 fidel es daily in divided doses between meals. (1 qdiczpg=779rs) ketoconazole 20 mg/ml topical cream (1 source) Azole Antifungal Ketoconazole 2 % External Cream APPLY SPARINGLY TO AFFECTED AREA(S) ONCE DAILY Quantity: 0 Refills: 0 Ordered: 06-Jun-2023 DO Active Lavela WS 1265 80 MG Oral Capsule (3 sources) Lavela WS 1265 8 0 MG Oral Capsule twice daily as needed Quantity: 0 Refills: 0 Ordered: 31-May-2022 DO Active Ptag-Xxsa-HN ([employer]) (8 sources) Start: 12-01-2021 End: 07-25-2022 Fbip-Rzcs-UO ([employer]) Take 1 capsule, 2 times daily with 4 oz or more of water. 0 12/01/2021 07/25/2022 Discontinued Start: 12-01-2021 Poru-Sfom-RN ( [employer]) Take 1 capsule, [...] 0 Ordered: 31-May-2022 DO Active Neuromag ( [employer] ) 90 ct (18 sources) Start: 07-08-20 Neuromag ( [employer] ) 90 ct Take 3 capsules per day or as directed by a healthcare professional. 0 07/08/2020 Active Comment on above: Take 3 capsules per day or as directed by a healthcare professional. OmegaGenics EPA-DHA 2400 (High Concentrate EPA/DHA liquid) ([employer]) (18 sources) Start: 07-08-20 20 OmegaGenics EPA-DHA [...] capsule (18 sources) Star t: 06-11 0 20 coQ10, ubiquinol, 100 mg cap Take 1 capsule daily with a meal. 60 capsule 2 07/08/2020 Active Comment on above: Take 1 capsule daily with a meal. UT Synergy ([employer]) antibacterial (18 sources) Star t: 06-11 0 20 take 1 capsule by mouth twice daily UT Synergy ([employer]) antibacterial Take 1 capsule by mouth twice daily. 0 07/08/2020 Active Comment on above: Take 1 capsule by mo roscoeh twice daily. 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 CURRENT USE OF ASPIRIN] Onset: 11-07-2022 Episodic Other aftercare (1 source) Other custodial (current) drug therapy; Translations: [OTH PRISON CURRENT DRUG THERAPY] Onset: 11-07-2022 Episodic Other [...] Facility US.doppler Carotid arteries - bilateralon 08-25-2023 [facility] [address], [address], [place] [address] Vascular Lab Report [facility] US CAROTID ARTERY DUPLEX BILATERAL Patient Name: ANN MARIE HILL Reading Physician: [id number] Miranda Tinoco MD, [facility] Study Date: 08/21/2023 Ordering Provider: [id number] MARY ANNE CASTLEEdda MRN/PID: [id number] Fellow: Technologist: Irasema Dooley RD, T Date of /Age: 3 1940 years Technologist 2: Gender: F Admission Status: Outpatient Location Performed: [facility] Diagnosis/ICD: Occlusion 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; Essential primary hypertension-I10 Indication: Hyperlipidemia, Dizziness, Dementia CPT Codes: 99530 Cerebrovascular Carotid Duplex scan complete CONCLUSIONS: Right [...] cm/s Right Left ICA/CCA Ratio 1.1 0.6 [id number] Miranda Tinoco MD, [facility] Final Miranda Tran M D - 08/25/[address], [address] [place] [address] Vascular Lab Report VASC US CAROTID ARTERY DUPLEX BILATERAL Patient Name: ANN MARIEHernandez HILL Kasie Physician: [id number] Miranda Tinoco MD, [facility] Study Date: 08/21/2023 Ordering Provider: [id number] MARY ANNE SNOW MRN/PID: [id number] Fellow: Technologist: Irasema Dooley [facility], T Date of /Age: 3 1940 years Technologist 2: Gender: F Admission Status: Outpatient Location Performed: [facility] Diagnosis/ICD: Occlusion 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; Essential primary hypertension-I10 Indication: Hyperlipidemia, Dizziness, Dementia CPT Codes: 36646 Cerebrovascular Carotid Duplex scan complete CONCLUSIONS: Right [...] cm/s Right Left ICA/CCA Ratio 1.1 0.6 [id number] Miranda Tinooc MD, FACC Final [facility] Work Phone: US.doppler Carotid arteries - bilateralOrdered By: Miranda Tinoco on 08-25-2023 [facility] Work Phone: US.doppler Carotid arteries - bilateralon 08-21-2023 Radiology Study observation (narrative) [facility] Work Phone: C Urineon 07-21-2023 Bacteria identified Cx Nom (U) Microbiology PROCEDURE: Urine Culture [R1] SOURCE: U CleanCatch BODY SITE: COLLECTED DATE/TIME: 07/19/2023 15:17 EDT RECEIVED DATE/TIME: 07/19/2023 20:19 EDT START DATE/TIME: 07/19/2023 20:19 EDT FREE TEXT SOURCE: DANIEL BOYER, ELLEN COOK PA-C, ELLEN Bell FINAL REPORTS Final Report [...] Locations R1: This test was performed at: [facility], [address] [place] [address], [address] , [place], Normal [facility] Comment on above: Performed By: #### 2 [id number] #### [facility] [address] [place] [address] URINALYSISOrdered By: Robel Williamson on 07-19-2023 Bacteria [...] Interpretation Code Negative [facility] UA Auto SS [place].plasma/Lithiu m.RBC (Bld) [Mass ratio] 0-3 /HPF Normal [...] [facility] UA Auto SS Urobilinogen Qn (U) 0.7037547 {Ham'U}/dL Normal 0.0 - 1.0 EU/dL [facility] UA Auto SS WBC Auto Ql (U) 3+ *ABN* (07/19/23 3:17 PM) Invalid Interpretation Code Negative [facility] UA Auto SS WBC casts LM.LPF (Urine sed) [#/Area] 0-3 (07/19/23 3:17 PM) Normal [facility] UA Auto SS WBC LM.HPF (Urine sed) [#/Area] /[HPF] Invalid Interpretation Code 0-5/HPF [facility] UA Auto SS Urinalysison 07-19-2023 Bacteria LM Ql (Urine sed) 3+ /HPF Abnormal Trace [facility] Comment on above: Performed By: #### 1 [id number] #### [facility] [address] [place] [address] Bilirubin Ql (U) Negative Normal Negative [facility] Comment on above: Performed By: #### 1 [id number] #### [facility] [address] [place] [address] Clarity (U) CLOUDY Abnormal Clear [facility] Comment on above: Performed By: #### 1 [id number] #### [facility] [address] [place] [address] Color (U) DARK YELLO Abnormal Yellow [facility] Comment on above: Performed By: #### 1 [id number] #### [facility] [address] [place] [address] Epithelial cells.squamous LM.HPF (Urine sed) [#/Area] 0-2 Normal 0-2 [facility] Comment on above: Performed By: #### 1 [id number] #### [facility] [address] [place] [address] Glucose Test strip (U) [Mass/Vol] Negative Normal Negative [facility] Comment on above: Performed By: #### 1 [id number] #### [facility] [address] [place] [address] Hemoglobin Ql (U) Negative Normal Negative [facility] Comment on above: Performed By: #### 1 [id number] #### [facility] [address] [place] [address] Ketones (U) [Mass/Vol] TRACE Abnormal Negative [facility] Comment on above: Performed By: #### 1 [id number] #### [facility] [address] [place] [address] [place].plasma/Lithiu m.RBC (Bld) [Mass ratio] 0-3 Normal 0-3 [facility] Comment on above: Performed By: #### 1 [id number] #### [facility] [address] [place] [address] Nitrite Ql (U) Negative Normal Negative [facility] Comment on above: Performed By: #### 1 [id number] #### [facility] [address] [place] [address] pH (U) 5.5 [pH] Invalid Interpretation Code 5.0-9.0 [facility] Comment on above: Performed By: #### 1 [id number] #### [facility] [address] [place] [address] Protein (U) [Mass/Vol] 1+ Abnormal Negative [facility] Comment on above: Performed By: #### 1 [id number] #### [facility] [address] [place] [address] Specific gravity (U) [Rel density] 1.025 Invalid Interpretation Code 1.005-1.030 [facility] Comment on above: Performed By: #### 1 [id number] #### [facility] [address] [place] [address] Type of Urine collection method Clean Catch Normal [facility] Comment on above: Performed By: #### 1 [id number] #### [facility] [address] [place] [address] Urobilinogen Qn (U) 0.2 {Ham'U}/dL Normal 0.0-1.0 [facility] Comment on above: Performed By: #### 1 [id number] #### [facility] [address] [place] [address] WBC Auto Ql (U) 3+ Abnormal Negative [facility] Comment on above: Performed By: #### 1 [id number] #### [facility] [address] [place] [address] WBC casts LM.LPF (Urine sed) [#/Area] 0-3 Normal [facility] Comment on above: Performed By: #### 1 [id number] #### [facility] [address] [place] [address] WBC LM.HPF (Urine sed) [#/Area] /[HPF] Abnormal 0-5 [facility] Comment on above: Performed By: #### 1 [id number] #### [facility] [address] [place] [address] Office Visit (Cardiology)on 06-06-2023 Follow-up visit Diagnoses/Problems [...] Status:Hold For - Scheduling,Retrospect chema Authorization; Requested for:[id number]; Laterality : Bilateral Essential hypertension Renew: Carvedilol 12.5 MG Oral Tablet; TAKE 1 TABLET TWICE DAILY Overweight with body mass index (BMI) of 27 to 27.9 in adult Healthy Weight Tips; Status:Complete - Retrospective Authorization; Done: [id number] Some eating tips that can help you lose weight.; Status:Complete - Retrospective Authorization; Done: [id number] SocHx: Never a smoker Tobacco Use Screening; Status:Complete; Done: [id number] Patient Instructions Please bring all medicines, vitamins, [...] duplex Same meds. Chief Complaint ANN MARIE HILL is being seen for an [...] as needed Neuro Rudolph TABSTAKE DIRECTED. Pristiq [id number] daily Rosuvastatin Calcium 40 MG Oral TabletTAKE [...] no fr (more content not included)... Normal amBX Tobacco Screening.on 023 Adult depression screening assessment No [facility] [employer] 250 DO Work Phone: Fall risk assessment a) No falls within the last year [facility] [employer] 250 DO Work Phone: Tobacco use status [facility] b) No [facility] [employer] 250 DO Work Phone: CNOVon 05-19-2023 CNOV Office Visit (MEDN ) ANN MARIE HILL ([id number]) 1940 F Date Time Provider Department 05/19/23 [...] OmegaGenics EPA-DHA 2400 (High Concentrate EPA/DHA liquid) (ePantry) Take one teaspoon (5 ml) 1 times daily with food [employer] Synergy ([employer]) antibacterial Take 1 capsule by mouth twice daily. Brain Misael Capsules ([employer]) Take 2 tablets by mouth w MEALS. Neuromag ( [employer] ) 90 ct Take 3 capsules per [...] diet to mix and match - cancelled surgery technician visit due to not having NutrEval back. [...] following ket (more content not included)... Normal [facility] ED Note-Physicianon 05-15-20 ED Note-Physician [id number]# 1.00CD:127 Normal [facility] Screenson 04-26-2023 Screens [id number] .00CD:127 Normal [facility] Ambulatory Visit Summaryon 0 04-25-2023 Ambulatory Visit [...] mg/g Vag Crm) omega-3 polyunsaturated fatty acids (Jefferson-3 350 mg oral capsule) ubiquinone (Co Q-10) [...] When: Where: [address] [place] [address] Medications What How Much When Instructions Unchanged [...] or concerns Unchanged omega-3 polyunsaturated fatty acids (Jefferson-3 350 mg oral capsule) By Mouth Every [...] blockage i (more content not included)... Normal [facility] Patient Educationon 04-25-20 Patient Education Obstetrics and [...] these instructions at home: Medicines ? Take lxzm-wyk-ujshynz and prescription medicines only as told by [...] provider. Document Revised: 05/07/2021 Document Reviewed: 05/07/2021 [employer] Patient Education ? 2022 [employer]. Normal [facility] Urology Office/Clinic Noteon 04-25-2023 Urology Office/Clinic Note [...] provider and she was started on supplements. SEWING INSPECTOR Dr Ballesteros, started her on Estradiol 1gm again. and then we started back on the Clobetasol. She is currently using both creams as needed and husbands says it helps a lot. +C&S 02/27/23 [facility] *Tx'd w/5 day Macrobid therapy. Pt [...] Contact Information DANIEL BOYER, ELLEN Bell, URL [address] [place] [address] Additional Instructions: Patient Education Urinary Tract Infection, Adult, Xgrl-xl-Tple Documentation recorded by the scribchris Valdez accurately [...] Tab, 10 mg= 1 tab(s), Oral, Daily Jefferson-3 350 mg oral capsule, Oral, Daily Pristiq, [...] Status Comments (more content not included)... Normal [facility] Comment on above: Result Comment: Elec tronically Signed By: ELLEN COOK PA-C.br\Date and Time Signed: 04/25/23 12:54 EDT\.br\Electronically Co-Signed By: Di Valdez\.simran\Date and Time Co-Signed: 04/25/23 12:21 EDT Ambulatory Visit Summaryon 0 04-17-2023 Ambulatory Visit Summary ANN MARIE HILL :1940 Visit Date:04/17/2023 Ambulatory Visit Instructions Your Care Team Attending Physician - GENO WATTS, Kunal Heller Primary Care Physician - Meng Prater MD [...] mg/g Vag Crm) omega-3 polyunsaturated fatty acids (Jefferson-3 350 mg oral capsule) ubiquinone (Co Q-10) valsartan (valsartan 80 mg Tab) vitamin E Procedures Performed Cystourethroscopy with dilation of urethral stricture (02/12/2019). What to do next Scheduled Follow-Up Appointments Monday 2:15 PM EDT With: GENO WATTS, Kunal Heller Where: [facility] 02-22-2023 [facility] Telephone ([employer]) ANN MARIE HILL ([id number]) 1940 F Date Time Provider Department 02/22/23 CHRISTIANA MONTERO [employer] During your visit today, we recorded the following information about you: Audrey Singh 02/22/2023 12:21 PM Addendum Patient's spouse, Orestes called (confirmed Ann Marie's ), Ann Marie was seen by Dr. Christiana Montero. They received a test kit from [facility] in the mail and not sure what it is? Does she need to do this and what is it for. Dr. Montero did not mention anything at her last visit with him. He is asking if Concepcion can call Orestes back (he stated he is POA) on his cell ph# [phone] OR [phone]. Audrey Montero MD 02/22/2023 5:54 PM Signed [...] test can be done at the Main [place] [facility] lab? He prefer not to have if done at home. Needs to know what the test is for and if its needs be done? He is asking for explanation and call back. Please call spouse on cell phone. certified personal chef: Orestes Phone number: [phone] Last office visit: 02/03/2023 Carine Coelho LPN [...] Fully Assessed Reason for Visit: Patient Question [3327] Prescriptions as of 02/23/2023 - PhytoMulti 60s capsules (ePantry) Take 2 capsules daily, with meals. - Glycine (Pure Encapsulations) Take 1 capsule 3 times daily in divided doses between meals. (1 nxlfist=867gb) - B-Complex Plus (Pure Encapsulations) Take 1 capsule by mouth daily with food. - Glutathione (Medstro) Use 20 pumps daily (1000mg) divided doses [...] OmegaGenics EPA-DHA 2400 (High Concentrate EPA/DHA liquid) (ePantry) Take one teaspoon (5 ml) 1 times daily with food - UT Synergy ([employer]) antibacterial Take 1 capsule by mouth twice daily. - Neuromag ( [employer] ) 90 ct Take 3 capsules per [...] Encounter Status:Closed by MARTA COELHO on 02/23/23 [facility] Michelle 02-17-2023 [facility] Telephone ([facility]) ANN MARIE HILL ([id number]) 1940 F Date Time Provider Department 02/17/23 KASEY RAE During your visit today, we recorded the following information about you: Evelyn Flaherty LPN 02/17/2023 8:19 AM Signed NUTRITION RESOURCES SENT VIA [employer]. Evelyn Flaherty LPN February 17, 2023 8:17 [...] daily in divided doses between meals. (1 lpwgmpz=195ae) - B-Complex Plus (Pure Encapsulations) Take 1 capsule by mouth daily with food. - Glutathione (Medstro) Use 20 pumps daily (1000mg) divided doses [...] OmegaGenics EPA-DHA 2400 (High Concentrate EPA/DHA liquid) (ePantry) Take one teaspoon (5 ml) 1 times daily with food - UT Synergy ([employer]) antibacterial Take 1 capsule by mouth twice daily. - Neuromag ( [employer] ) 90 ct Take 3 capsules per [...] Encounter Status:Closed by EVELYN FLAHERTY on 02/17/23 [facility] CNOVdanisha 02-03-2023 CNOV Office Visit (MEDN ) ANN MARIE HILL ([id number]) 1940 F Date Time Provider Department 02/03/23 [...] OmegaGenics EPA-DHA 2400 (High Concentrate EPA/DHA liquid) (ePantry) Take one teaspoon (5 ml) 1 times daily with food [employer] Synergy ([employer]) antibacterial Take 1 capsule by mouth twice daily. Brain Misael Capsules ([employer]) Take 2 tablets by mouth w MEALS. Neuromag ( [employer] ) 90 ct Take 3 capsules per [...] diet to mix and match - cancelled surgery technician visit due to not having NutrEval back. [...] Bowel Habits (more content not included)... Normal [facility] CNOVon 10-31-2022 CNOV Office Visit ([facility] ) ANN MARIE HILL ([id number]) 1940 F Date Time Provider Department 10/31/22 1:00 PM CHRISTIANA MONTERO [facility] During your visit today, we [...] OmegaGenics EPA-DHA 2400 (High Concentrate EPA/DHA liquid) (ePantry) Take one teaspoon (5 ml) 1 times daily with food UT Synergy ([employer]) antibacterial Take 1 capsule by mouth twice daily. Brain Misael Capsules ([employer]) Take 2 tablets by mouth w MEALS. Neuromag ( [employer] ) 90 ct Take 3 capsules per [...] diet to mix and match - cancelled surgery technician visit due to not having NutrEval back. [...] this. F (more content not included)... Normal [facility] T4 Free SerPl-mCncon 023 Free T4 [Mass/Vol] 1.3 ng/dL Normal 0.9-1.7 [facility] Comment on above: Order Comment: Speci men Type: BLOOD SPECIMENOrdering Facility: [facility] Address: [place] [id number] Performed By: #### 3 024-7, 6-3 ####[facility] LABIA [id number] [address] [place] TSH SerPl-aCncon 10-31-2022 TSH Qn 1.570 m[IU]/L Normal 0.270-4.200 [facility] Comment on above: Order Comment: Speci men Type: BLOOD SPECIMENOrdering Facility: [facility] Address: [place] [id number] Performed By: #### 3 024-7, 3016-3 ####[facility] LABCLIA [id number] [place] [id number] [place] CNPNon 10-28-2022 CNPN Telephone ([facility]) ANN MARIE HILL ([id number]) 1940 F Date Time Provider Department 10/28/22 [...] Fully Assessed Reason for Visit: Patient Question [1007] Prescriptions as of 10/28/2022 - desvenlafaxine ER [...] OmegaGenics EPA-DHA 2400 (High Concentrate EPA/DHA liquid) (ePantry) Take one teaspoon (5 ml) 1 times daily with food - [facility] Synergy ([employer]) antibacterial Take 1 capsule by mouth twice daily. - Brain Misael Capsules ([employer]) Take 2 tablets by mouth w MEALS. - Neuromag ( [employer] ) 90 ct Take 3 capsules per [...] Encounter Status:Closed by EVELYN FLAHERTY on 10/28/22 [facility] Patient Education 08-08-20 Patient Education Obstetrics [...] this condition includes: ? Antibiotic medicine. ? Dsid-ljk-lvuyymu medicines to treat discomfort. ? Drinking enough [...] these instructions at home: Medicines ? Take eybl-xrl-yehinsz and prescription medicines only as told by [...] This in (more content not included)... Normal [facility] Urology Office/Clinic Noteon 08-08-2022 Urology Office/Clinic Note [...] months 04/08/2023 EDT [facility] [address] [place] [address] [phone] Additional Instructions: Patient Education Urinary Tract Infection, [...] Tab, 10 mg= 1 tab(s), Oral, Daily Jefferson-3 350 mg oral capsule, Oral, Daily Pristiq, [...] inactivated - Not Given Patient Refuses Normal [facility] Comment on above: Result Comment: Elec tronically Signed By: Kunal LORA MD\.br\Date and Time Signed: 08/08/22 16:21 EDT\.br\Electronically Co-Signed By: Alisa Caban MA\.br\Date and Time Co-Signed: 08/08/22 16:17 EDT CNOVon 07-25-2022 CNOV Office Visit ([facility] ) ANN MARIE HILL ([id number]) 1940 F Date Time Provider Department 07/25/22 [...] boullardi 2 hrs away from nystatin/candibactin/ diflucan. Xfvq-Rpws-EH ([employer]) Take 1 capsule, 2 times daily with 4 oz or more of water. Glutathione (Medstro) - Liver support/detox Use 8 pumps daily , divided doses through out the day. (2 pumps = 100 mg Glutathione). Work up slowly to the higher dose. B-Complex Plus (Pure Encapsulations) Take 2 capsules by mouth daily with food. Multi t/d 60 ct. (Pure Encapsulations) - multivitamin Take 1 capsule by mouth twice daily with meals. OmegaGenics EPA-DHA 2400 (High Concentrate EPA/DHA liquid) (ePantry) Take one teaspoon (5 ml) 1 times daily with food [employer]) antibacterial Take 1 capsule by mouth twice daily. Brain Misael Capsules ([employer]) Take 2 tablets by mouth w MEALS. Neuromag ( [employer] ) 90 ct Take 3 capsules per [...] is conf (more content not included)... Normal [facility] MG MAMM SCREEN JOSH W CADon 0 06-17-2022 MG MAMM SCREEN JOSH W CAD Patient: ANN MARIE HILL Exam Date: 06/17/2022 : 1940 Gender:F Ordering : DR MENG PRATER . Admission #: [id number] Family : Order #: [id number] CLICK HERE TO VIEW EXAM RADIOLOGY REPORT [...] Treatments None Family Cancers None LOCATION: [facility] BREAST COMPOSITION: Scattered areas fibroglandular [...] LUMP SHOULD BE BIOPSIED. Dictated by: Samm Gates M.D. on 06/17/2022 at 15:44 Approved by: Samm Gates M.D. on 06/17/2022 at 15:47 Normal [facility] OCC BLD IMMUNOASSAYon 2021 OCCULT BLOOD Negative Normal NEGATIVE [facility] Comment on above: Performed By: #### O CHANDU #### [facility] [address] [address] [address] Hu Carlos INSULINon 06-04-2022 Insulin 11.2 uIU/mL Normal 2.6-24.9 [facility] Comment on above: Performed By: #### I NSULIN ####[facility] [address] [address]Dr. Hu Carlos T4, T3U, FTI LABCORPon 06-04 Free Thyroxine Index 2.3 Normal 1.2-4.9 [facility] Comment on above: Performed By: #### T HYLC #### [facility] [address] [address] [address] Hu Carlos T3 Uptake 26 % Normal 24-39 [facility] Comment on above: Performed By: #### T HYLC #### [facility] [address] [address] [address] Hu Carlos T4 [Mass/Vol] 8.8 ug/dL Normal 4.5-12.0 [facility] Comment on above: Performed By: #### T HYLC #### [facility] [address] [address] [address] Hu Carlos VIT D 25-OH LABCORPon 2021 Vitamin D, 25-Hydroxy 60.5 ng/mL Normal 30.0-100.0 [facility] Comment on above: Result Comment: Nicolette min D deficiency has been defined by the [place] of Medicine and an Endocrine Society practice guideline as a level of serum 25-OH vitamin D less than 20 ng/mL (1,2). The Endocrine Society went on to further define vitamin D insufficiency as a level between 21 and 29 ng/mL (2). 1. IOM ([place] of Medicine). 2010. Dietary reference intakes for calcium and D. [place]: The National Academies Press. 2. Suzette MF, Julian [place], Fady CLEMONS, et al. Evaluation, treatment, and prevention of vitamin D deficiency: an Endocrine Society clinical practice guideline. JCEM. 2010; 96(7):1911-30. Performed By: #### V ITADLC ####[facility] [address] [place], [place] [address]HbDr. uH Carlos CBC AUTO DIFFon 06-03-2022 BASO # 0.0 103/ul Normal 0.0-0.1 [facility] Comment on above: Performed By: #### C BC #### [facility] [address] [address] [address] Hu Carlos Basophils/100 WBC (Bld) 0.6 % Normal 0.2-2.0 [facility] Comment on above: Performed By: #### C BC #### [facility] [address] [place] [address] Dr. Hu Carlos EO # 0.2 103/ul Normal 0.0-0.7 [facility] Comment on above: Performed By: #### C BC #### [facility] [address] [place] [address] Dr. Hu Carlos Eosinophils/100 WBC (Bld) 3.2 % Normal 0.9-7.0 [facility] Comment on above: Performed By: #### C BC #### [facility] [address] [place] [address] Dr. Hu Carlos Erythrocyte distribution width (RBC) [Ratio] 12.6 % Normal 11.0-15.0 [facility] Comment on above: Performed By: #### C BC #### [facility] [address] [place] [address] Dr. Hu Carlos Hematocrit (Bld) [Volume fraction] 40.0 % Normal 36.0-48.0 [facility] Comment on above: Performed By: #### C BC #### [facility] [address] [place] [address] Dr. Hu Carlos Hemoglobin (Bld) [Mass/Vol] 12.8 g/dL Normal 12.0-16.0 [facility] Comment on above: Performed By: #### C BC #### [facility] [address] [place] [address] Dr. Hu Carlos IG # 0.01 10e3/ul Normal 0.00-0.03 [facility] Comment on above: Performed By: #### C BC #### [facility] [address] [place] [address] Dr. Hu Carlos IG % 0.2 % Normal 0.0-0.5 [facility] Comment on above: Performed By: #### C BC #### [facility] [address] [place] [address] Dr. Hu Carlos LYMPH # 1.2 103/ul Normal 1.2-3.8 [facility] Comment on above: Performed By: #### C BC #### [facility] [address] [place] [address] Dr. Hu Carlos Lymphocytes/100 WBC (Bld) 22.7 % Normal 20.5-60.0 [facility] Comment on above: Performed By: #### C BC #### [facility] [address] [place] [address] Dr. Hu Carlos MANUAL DIFF REQ NO Normal [facility] Comment on above: Performed By: #### C BC #### [facility] [address] [place] [address] Dr. Hu Carlos MCH (RBC) [Entitic mass] 31.8 pg Normal 26.7-34.0 [facility] Comment on above: Performed By: #### C BC #### [facility] [address] [place] [address] Dr. Hu Carlos MCHC (RBC) [Mass/Vol] 32.0 g/dL Normal 29.9-35.2 [facility] Comment on above: Performed By: #### C BC #### [facility] [address] [place] [address] Dr. Hu Carlos MCV (RBC) [Entitic vol] 99.3 fL Critically high 81.0-99.0 [facility] Comment on above: Performed By: #### C BC #### [facility] [address] [place] [address] Dr. Hu Carlos MONO # 0.5 103/ul Normal 0.3-0.8 [facility] Comment on above: Performed By: #### C BC #### [facility] [address] [address] [address] Hu Carlos Monocytes/100 WBC (Bld) 8.8 % Normal 1.7-12.0 [facility] Comment on above: Performed By: #### C BC #### [facility] [address] [address] [address] Hu Carlos NEUT # 3.4 103/ul Normal 1.4-6.5 [facility] Comment on above: Performed By: #### C BC #### [facility] [address] [address] [address] Hu Carlos Neutrophils/100 WBC (Bld) 64.5 % Normal 43.0-75.0 [facility] Comment on above: Performed By: #### C BC #### [facility] [address] [address] [address] Hu Carlos Platelet mean volume (Bld) [Entitic vol] 8.8 fL Critically low 9.5-13.5 [facility] Comment on above: Performed By: #### C BC #### [facility] [address] [address] [address] Hu Carlos PLT 278 103/ul Normal 150-450 [facility] Comment on above: Performed By: #### C BC #### [facility] [address] [address] [address] Hu Carlos RBC 4.03 106/ul Critically low 4.20-5.40 [facility] Comment on above: Performed By: #### C BC #### [facility] [address] [address] [address] Hu Carlos WBC 5.3 103/ul Normal 4.0-11.0 [facility] Comment on above: Performed By: #### C BC #### [facility] [address] [place] [address] Dr. Hu Carlos GLYCOHEMOGLOBIN A1Con 2021 ADA RECOMMENDATION SEE BELOW Normal [facility] Comment on above: Result Comment: ADA RECOMMENDED LIMIT 4.0 - 6.0 ADA THERAPEUTIC TARGET < 7.0 ACTION SUGGESTED > 7.0 Performed By: #### A 1C ####[facility] [address] [address]Dr. Hu Carlos Glucose [Mass/Vol] 123 mg/dL Normal [facility] Comment on above: Performed By: #### A 1C ####[facility] [address] [id number]. Hu Carlos HbA1c (Bld) [Mass fraction] 5.9 % Normal 4.5-6.2 [facility] Comment on above: Performed By: #### A 1C ####[facility] [address] [address]Dr. Hu Carlos IRONon 06-03-2022 Iron [Mass/Vol] 68.0 ug/dL Normal 50.0-170.0 [facility] Comment on above: Performed By: #### I CANDY #### [facility] [address] [address] [address] Hu Carlos LIPID PROFILEon 06-03-2022 CHOL-HDL RATIO NORM SEE BELOW Normal [facility] Comment on above: Result Comment: 3.3 - 4.4 LOW RISK 4.4 - 7.1 AVERAGE RISK 7.1 - 11.0 MODERATE RISK >11.0 HIGH RISK Performed By: #### T SH, LIPID, CMP #### [facility] [address] [address] [address] Hu Carlos Cholesterol [Mass/Vol] 155 mg/dL Normal <=200 [facility] Comment on above: Performed By: #### T SH, LIPID, CMP #### [facility] [address] [address] [address] Hu Carlos Cholesterol in HDL [Mass/Vol] 70 mg/dL Critically high 40-60 [facility] Comment on above: Performed By: #### T SH, LIPID, CMP #### [facility] [address] [address] [address] Hu Carlos Cholesterol in LDL [Mass/Vol] 73.2 mg/dL Normal [facility] Comment on above: Performed By: #### T SH, LIPID, CMP #### [facility] [address] [address] [address] Hu Carlos Cholesterol.total/Cho lesterol in HDL [Mass ratio] 2.2 {ratio} Normal [facility] Comment on above: Performed By: #### T KISHOR, LIPID, CMP #### [facility] [address] [address] [address] Hu Carlos HDL NORMAL > or = 60 mg/dl - LO W CARDIOVASCULAR RISK <40 mg/dl - HIGH CARDIOVASCULAR RISK Normal [facility] Comment on above: Performed By: #### T KISHOR, LIPID, CMP #### [facility] [address] [address] [address] Hu Carlos LDL CALC NORMAL SEE BELOW Normal [facility] Comment on above: Result Comment: <100 mg/dl OPTIMAL 100 - 129 mg/dl NEAR OR ABOVE OPTIMAL 130 - 159 mg/dl BORDERLINE HIGH 160 - 189 mg/dl HIGH >190 mg/dl VERY HIGH Performed By: #### T KISHOR, LIPID, CMP #### [facility] [address] [place] [address] Dr. Hu Carlos Triglyceride [Mass/Vol] 59 mg/dL Normal <=150 [facility] Comment on above: Performed By: #### T KISHOR, LIPID, CMP #### [facility] [address] [place] [address] Dr. Hu Carlos VLDL CALC 11.8 mg/dL Normal [facility] Comment on above: Performed By: #### T KISHOR, LIPID, CMP #### [facility] [address] [address] [address] Hu Carlos PROF 14(COMP METB)on 022 Albumin [Mass/Vol] 3.5 g/dL Normal 3.4-5.0 [facility] Comment on above: Performed By: #### T KISHOR, LIPID, CMP #### [facility] [address] [place] [address] Dr. Hu Carlos Albumin/Globulin [Mass ratio] 1.0 {ratio} Normal [facility] Comment on above: Performed By: #### T SH, LIPID, CMP #### [facility] [address] [address] [address] Hu Carlos ALP [Catalytic activity/Vol] 73 U/L Normal 46-116 [facility] Comment on above: Performed By: #### T SH, LIPID, CMP #### [facility] [address] [address] [address] Hu Carlos ALT [Catalytic activity/Vol] 24 U/L Normal 14-59 [facility] Comment on above: Performed By: #### T SH, LIPID, CMP #### [facility] [address] [address] [address] Hu Carlos Anion gap [Moles/Vol] 11.1 mmol/L Normal [facility] Comment on above: Performed By: #### T SH, LIPID, CMP #### [facility] [address] [address] [address] Hu Carlos AST [Catalytic activity/Vol] 15 U/L Normal 15-37 [facility] Comment on above: Performed By: #### T SH, LIPID, CMP #### [facility] [address] [address] [address] Hu Carlos Bilirubin [Mass/Vol] 0.4 mg/dL Normal 0.2-1.0 [facility] Comment on above: Performed By: #### T SH, LIPID, CMP #### [facility] [address] [address] [address] Hu Carlos Calcium [Mass/Vol] 8.9 mg/dL Normal 8.5-10.1 [facility] Comment on above: Performed By: #### T SH, LIPID, CMP #### [facility] [address] [address] [address] Hu Carlos Chloride [Moles/Vol] 103 mmol/L Normal 98-107 [facility] Comment on above: Performed By: #### T SH, LIPID, CMP #### [facility] [address] [address] [address] Hu Carlos CO2 [Moles/Vol] 30.9 mmol/L Normal 21.0-32.0 [facility] Comment on above: Performed By: #### T SH, LIPID, CMP #### [facility] [address] [address] [address] Hu Carlos Creatinine [Mass/Vol] 0.81 mg/dL Normal 0.55-1.02 [facility] Comment on above: Performed By: #### T SH, LIPID, CMP #### [facility] [address] [address] [address] Hu Carlos EGFR-AF SAUDI ARABIAN >60 Normal >=60 [facility] Comment on above: Performed By: #### T SH, LIPID, CMP #### [facility] [address] [address] [address] Hu Carlos EGFR-NON AF SAUDI ARABIAN >60 Normal >=60 [facility] Comment on above: Performed By: #### T SH, LIPID, CMP #### [facility] [address] [address] [address] Hu Carlos Globulin (S) [Mass/Vol] 3.6 g/dL Normal [facility] Comment on above: Performed By: #### T SH, LIPID, CMP #### [facility] [address] [address] [address] Hu Carlos Glucose [Mass/Vol] 100 mg/dL Normal 74-106 [facility] Comment on above: Performed By: #### T SH, LIPID, CMP #### [facility] [address] [address] [address] Hu Carlos Potassium [Moles/Vol] 4.0 mmol/L Normal 3.5-5.1 [facility] Comment on above: Performed By: #### T SH, LIPID, CMP #### [facility] [address] [address] [address] Hu Carlos Protein [Mass/Vol] 7.1 g/dL Normal 6.4-8.2 [facility] Comment on above: Performed By: #### T SH, LIPID, CMP #### [facility] [address] [address] [address] Hu Carlos Sodium [Moles/Vol] 141 mmol/L Normal 136-145 [facility] Comment on above: Performed By: #### T SH, LIPID, CMP #### [facility] [address] [address] [address] Hu Carlos Urea nitrogen [Mass/Vol] 21.0 mg/dL Critically high 7.0-18.0 [facility] Comment on above: Performed By: #### T SH, LIPID, CMP #### [facility] [address] [address] [address] Hu Carlos Urea nitrogen/Creatinine [Mass ratio] 25.9 mg/mg Normal [facility] Comment on above: Performed By: #### T SH, LIPID, CMP #### [facility] [address] [address] [address] Hu Carlos TSHon 06-03-2022 TSH 1.582 uIU/mL Normal 0.358-3.740 [facility] Comment on above: Performed By: #### T SH, LIPID, CMP #### [facility] [address] [address] [address] Hu Carlos PHQ-2 VITALSon 05-31-2022 Fall risk assessment a) No falls within the last year [facility] DO Work Phone: Tobacco use status CPHS b) No [facility] 250 DO Work Phone: PHQ-2 VITALS Yes [facility] 250 DO Work Phone: Tobacco Screening.on 021 Fall risk assessment a) No falls within the last year [facility] 250 DO Work Phone: Tobacco use status CPHS b) No [facility] DO Work Phone: [facility] LAB Carotid Artery Dupl ex Ultrasounon 06-23-2020 VASC LAB Carotid Artery Duplex Ultrasoun [facility] [address] [place] [address], [address] [place] [address] Vascular Lab Report Carotid Artery Duplex Ultrasound Patient Name: ANN MARIE HILL Reading Physician: [id number] Miranda Tinoco MD, FACC Study Date: 06/23/2020 Referring Physician: [id number] Mary Anne Snow MD MRN/PID: [id number] PCP: Meng Prater Accession/Order#: [id number] CC Report to: Date of : 1940 Technologist: Irasema Dooley RD, RVT Gender: F Technologist 2: Admission Status: Outpatient Location Performed: [facility] Diagnosis/ICD: 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 Indication: HTN, Hyperlipidemia, Mild Dementia, Overweight, PVC's Procedure/CPT: 49206 Cerebrovascular Carotid Duplex scan complete-12654 CONCLUSIONS: Right Carotid: Findings are consistent with [...] cm/s Right Left ICA/CCA Ratio 1.0 0.9 [id number] Miranda Tinoco MD, FACC Final Normal [facility] CARDIAC STRESS/REST YOSHI Dooley 09-11-2019 [facility] CARDIAC STRESS/REST INJECTION Patient Name: ANN MARIE HILL STUDY: MYOCARDIAL PERFUSION STRESS TEST WITH LEXISCAN Performing facility: [facility], [address] [place] [address], [address], [place] [address] [facility] Provider: Mary Anne Snow MD PCP: Dr. Robel PRATER Supervising provider: Yin Taylor MD, [facility] INDICATION: CP HISTORY: Gender: F; Age: 78 y/o ; Height: 154.94 cm; Weight: 77.4356502 kg. High Cholesterol; HTN PVCs CP DEMENTIA Denies smoking. COMPARISON: No comparison. ACCESSION NUMBER(S): [id number]; [id number]; [id number] ORDERING CLINICIAN: MARY ANNE SNOW TECHNIQUE: ONE [...] Electronically signed by: MARY ANNE SNOW MD [facility] Vital Signs Date Time Vital Sign Value Performing Clinician Facility 06-06-2023 13:36-0400 Body height 157.48 cm Meng M Hoy Work Phone: [facility] 250 DO Work Phone: 06-06-2023 13:36-0400 Body mass index (BMI) [Ratio] 27.98 kg/m2 Meng M Hoy Work Phone: [facility] 250 DO Work Phone: 06-06-2023 13:36-0400 Body surface area Derived from formula 1.71 m2 Meng M Hoy Work Phone: [facility] 250 DO Work Phone: 06-06-2023 13:36-0400 Body weight 69.4 kg Meng M Hoy Work Phone: [facility] 250 DO Work Phone: 06-06-2023 13:36-0400 Diastolic blood pressure 62 mm[Hg] Meng M Hoy Work Phone: [facility] 250 DO Work Phone: 06-06-2023 13:36-0400 Heart rate 64 /min Meng M Hoy Work Phone: [facility] 250 DO Work Phone: 06-06-2023 13:36-0400 Systolic blood pressure 100 mm[Hg] Meng M Hoy Work Phone: [facility] 250 DO Work Phone: 05-19-2023 15:41-0400 Body height 157.5 cm Christiana Montero MD Work Phone: [facility] 05-19-2023 15:41-0400 Body weight 70.94 kg Christiana Montero MD Work Phone: [facility] 05-19-2023 15:41-0400 Diastolic blood pressure 63 mm[Hg] Christiana Montero MD Work Phone: [facility] 05-19-2023 15:41-0400 Heart rate 76 /min Christiana Montero MD Work Phone: [facility] 05-19-2023 15:41-0400 Systolic blood pressure 124 mm[Hg] Christiana Montero MD Work Phone: [facility] 04-25-2023 11:12-0400 Blood Pressure Location ELLEN DANIEL [facility] 04-25-2023 11:12-0400 Diastolic blood pressure 80 mm[Hg] ELLEN DANIEL [facility] 04-25-2023 11:12-0400 Heart rate 72 /min ELLEN DANIEL [facility] 04-25-2023 11:12-0400 Respiratory rate 16 /min ELLEN DANIEL [facility] 04-25-2023 11:12-0400 Systolic blood pressure 130 mm[Hg] ELLEN DANIEL [facility] 02-03-2023 15:26-0400 Body height 157.5 cm Christiana Montero MD Work Phone: [facility] 02-03-2023 15:26-0400 Body weight 68.77 kg Christiana Montero MD Work Phone: [facility] 02-03-2023 15:26-0400 Diastolic blood pressure 59 mm[Hg] Christiana Montero MD Work Phone: [facility] 02-03-2023 15:26-0400 Heart rate 83 /min Christiana Montero MD Work Phone: [facility] 02-03-2023 15:26-0400 Systolic blood pressure 136 mm[Hg] Christiana Montero MD Work Phone: [facility] 10-31-2022 13:19-0500 Body height 157.5 cm Christiana Montero MD Work Phone: [facility] 10-31-2022 13:19-0500 Body temperature 97.81 [degF] Christiana Montero MD Work Phone: [facility] 10-31-2022 13:19-0500 Body weight 62.23 kg Christiana Montero MD Work Phone: [facility] 10-31-2022 13:19-0500 Diastolic blood pressure 68 mm[Hg] Christiana Montero MD Work Phone: [facility] 10-31-2022 13:19-0500 Heart rate 79 /min Christiana Montero MD Work Phone: [facility] 10-31-2022 13:19-0500 SaO2% (BldA) [Mass fraction] 97 % Christiana Montero MD Work Phone: [facility] 10-31-2022 13:19-0500 Systolic blood pressure 143 mm[Hg] Christiana Montero MD Work Phone: [facility] 08-08-2022 15:17-0400 Diastolic blood pressure 76 mm[Hg] Kunal LORA [facility] 08-08-2022 15:17-0400 Mean blood pressure 101 mm[Hg] Kunal LORA [facility] 08-08-2022 15:17-0400 Systolic blood pressure 152 mm[Hg] Kunal LORA [facility] 07-25-2022 12:47-0400 Body height 157.5 cm Christiana Montero MD Work Phone: [facility] 07-25-2022 12:47-0400 Body temperature 98.01 [degF] Christiana Montero MD Work Phone: [facility] 07-25-2022 12:47-0400 Body weight 61.01 kg Christiana Montero MD Work Phone: [facility] 07-25-2022 12:47-0400 Diastolic blood pressure 62 mm[Hg] Christiana Montero MD Work Phone: [facility] 07-25-2022 12:47-0400 Heart rate 80 /min Christiana Montero MD Work Phone: [facility] 07-25-2022 12:47-0400 SaO2% (BldA) [Mass fraction] 98 % Christiana Montero MD Work Phone: [facility] 07-25-2022 12:47-0400 Systolic blood pressure 140 mm[Hg] Christiana Montero MD Work Phone: [facility] 05-31-2022 11:58-0400 Body height 157.48 cm Meng Paz [employer] Work Phone: [facility] DO Work Phone: 05-31-2022 11:58-0400 Body mass index (BMI) [Ratio] 23.59 kg/m2 Meng Paz [employer] Work Phone: [facility] DO Work Phone: 05-31-2022 11:58-0400 Body surface area Derived from formula 1.59 m2 Meng Jackson Hoy Work Phone: [facility] DO Work Phone: 05-31-2022 11:58-0400 Body weight 58.51 kg Meng M Hoy Work Phone: [facility] DO Work Phone: 05-31-2022 11:58-0400 Diastolic blood pressure 60 mm[Hg] Meng Paz Hoy Work Phone: [facility] DO Work Phone: 05-31-2022 11:58-0400 Heart rate 68 /min Meng Paz Hoy Work Phone: [facility] DO Work Phone: 05-31-2022 11:58-0400 Systolic blood pressure 102 mm[Hg] Meng Paz Hochuy Work Phone: [facility] DO Work Phone: 03-18-2022 12:59-0400 Body height 157.5 cm Evita Calderon MD Work Phone: [facility] 03-18-2022 12:59-0400 Body weight 55.34 kg Evita Calderon MD Work Phone: [facility] 03-18-2022 12:59-0400 Diastolic blood pressure 52 mm[Hg] Evita Calderon MD Work Phone: [facility] 03-18-2022 12:59-0400 Heart rate 70 /min Evita Calderon MD Work Phone: [facility] 03-18-2022 12:59-0400 Systolic blood pressure 107 mm[Hg] Evita Calderon MD Work Phone: [facility] 03-02-2022 10:32-0400 Body weight 56.61 kg Han Britton MD Work Phone: [facility] 03-02-2022 10:32-0400 Diastolic blood pressure 53 mm[Hg] Han Britton MD Work Phone: [facility] 03-02-2022 10:32-0400 Heart rate 75 /min Han Britton MD Work Phone: [facility] 03-02-2022 10:32-0400 Systolic blood pressure 115 mm[Hg] Han Britton MD Work Phone: [facility] 01-31-2022 14:14-0400 Blood Pressure Location Kuanlsherrie [facility]ORA [facility] 01-31-2022 14:14-0400 Diastolic blood pressure 51 mm[Hg] Kunalsherrie LORA [facility] 01-31-2022 14:14-0400 Heart rate 66 /min Kunalsherrie LORA [facility] 01-31-2022 14:14-0400 Respiratory rate 16 /min Kunal LORA [facility] 01-31-2022 14:14-0400 Systolic blood pressure 96 mm[Hg] Kunal [facility] 08-09-2021 13:50-0400 Body height 157.48 cm Meng [employer] Hoy Work Phone: [facility] DO Work Phone: 08-09-2021 13:50-0400 Body mass index (BMI) [Ratio] 21.58 kg/m2 Meng [employer] Hoy Work Phone: [facility] DO Work Phone: 08-09-2021 13:50-0400 Body surface area Derived from formula 1.53 m2 Meng [employer] Hoy Work Phone: [facility] 250 DO Work Phone: 08-09-2021 13:50-0400 Body weight 53.52 kg Meng M Hoy Work Phone: [facility] DO Work Phone: 08-09-2021 13:50-0400 Diastolic blood pressure 60 mm[Hg] Meng M Hoy Work Phone: [facility] DO Work Phone: 08-09-2021 13:50-0400 Heart rate 72 /min Meng M Hoy Work Phone: [facility] DO Work Phone: 08-09-2021 13:50-0400 Systolic blood pressure 110 mm[Hg] Meng M Hoy Work Phone: [facility] DO Work Phone: Encounters Encounter Date Encounter Type Care Provider Facility Start: 09-20-2023 End: 09-20-2023 ambulatory MAUREEN BALLESTEROS Not Available Start: 08-21-2023 End: 08-21-2023 Subsequent hospital visit by physician Judy Smith Echo/Vasc Room 2 [facility] Comment on above: Carotid stenosis, bi lateral; Benign hypertension Start: 07-19-2023 End: 07-20-2023 ambulatory ELLEN COOK [place] [place] Start: 07-19-2023 End: 07-19-2023 Lab Drop off ELLEN OCOK [facility] Start: 07-19-2023 End: 07-20-2023 ambulatory Leonor Phillips Facility:[facility] Start: 07-19-2023 End: 07-19-2023 Patient encounter procedure Leonor Phillips [facility] Start: 06-06-2023 Office outpatient vi sit 15 minutes Meng M Hoy Work Phone: [facility] DO Work Phone: Start: 06-06-2023 ambulatory [...] m caregiver Christiana Montero MD [facility] Phone: [facility] Start: 04-26-2023 Rx Renewal Meng Williamy Work Phone: [facility] DO Work Phone: Start: 04-25-2023 End: 04-26-2023 ambulatory ELLEN COOK Facility: [place] Start: 04-25-2023 End: 04-25-2023 Patient encounter procedure ELLEN COOK [facility] Start: 04-17-2023 End: 04-18-2023 ambulatory Kunal LORA Facility:[facility] Start: 04-17-2023 End: 04-17-2023 Patient encounter procedure Kunal LORA [facility] Start: 02-17-2023 Telephone encounter Kasey Hernández RD Work Phone: Functional Medicine Comment on above: Appointment Start: 02-15-2023 End: 02-15-[address] Hernández RD Work Phone: [facility] Start: 02-15-2023 End: 02-15-2023 [facility] visit, estab pt Kasey Oden Edgar RD Work Phone: Functional Medicine Comment on above: Established Patient Start: 02-04-2023 ambulatory Christiana Concepcion Work Phone: Functional Medicine Comment on above: After Visit 02/03/23 Start: 02-04-2023 E-mail encounter fro m caregiver Christiana Montero MD Work Phone: [facility] Start: 02-03-2023 End: 02-03-2023 ambulatory MENG PRATER Facility:[facility] Start: 02-03-2023 End: 02-03-2023 Patient encounter procedure [...] m caregiver Christiana Montero MD Work Phone: [facility] Start: 10-31-2022 End: 10-31-2022 Patient encounter [...] DR MENG PRATER Facility:[facility] Start: 08-10-2022 End: 08-11-2022 ambulatory [facility] Start: 08-10-2022 End: 08-10-2022 Patient encounter procedure Kunal LORA [facility] [place] Start: 08-08-2022 End: 08-09-2022 ambulatory Kunal LORA Facility:[facility] [place] Start: 08-08-2022 End: 08-08-2022 Patient encounter procedure [facility] Start: 07-25-2022 End: 07-25-2022 ambulatory CHRISTIANA MONTERO Facility:[facility] Start: 07-25-2022 End: 07-25-2022 Patient encounter procedure [...] sit 25 minutes Meng Prater Work Phone: [facility] DO Work Phone: Start: 05-12-2022 ambulatory [facility] Comment on above: Mold Report Start: 05-12-2022 E-mail encounter fro m caregiver [facility] Start: 05-09-2022 ambulatory Evita siu MD Work Phone: Functional Medicine Comment on above: Ubiquinol Start: 04-26-2022 Rx Renewal Meng Prater Work Phone: [facility] DO Work Phone: Start: 04-11-2022 ambulatory [facility] Comment on above: Ultrasound - Carotid Artery Start: 04-11-2022 E-mail encounter fro m caregiver [facility] Provider [facility] Start: 03-18-2022 End: 03-18-2022 Patient [...] Kunal LORA [facility] Start: 01-09-2022 ambulatory Evita siu MD Work Phone: Functional Medicine Comment on above: Mold test results Start: 08-09-2021 Office outpatient vi sit 25 minutes Meng Prater Work Phone: [facility] DO Work Phone: Start: 07-11-2017 Ambulatory MARY ANNE SNOW Facedda lity:[id number] Procedures Date Procedure Procedure Detail Performing Clinician Start: 08-21-2023 Duplex scan extracra nial art compl bi study Mary Anne Snow MD Work Phone: Start: 02-12-2019 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 [address] [place] [address] Mary Anne Snow MD [address] [place] [address] [facility] Start: 11-25-2023 DIABETES SCREEN DIABETES SCREEN [facility] Start: 07-24-2023 CAROTID, Provider: CHAD CARMONA ULTRASOUND ,[id number], Status: Pen, Time: 2:30 PM CAROTID, Provider: CHAD CARMONA ULTRASOUND ,[id number], Status: Pen, Time: 2:30 PM [facility] DO Work Phone: Start: 06-09-2023 Influenza vaccination [facility] Start: 06-06-2023 FUV, Provider: Mary Anne Snow, Status: Pen, Time: 1:20 PM FUV, Provider: Mary Anne Snow, Status: Pen, Time: 1:20 PM [facility] DO Work Phone: Start: 03-18-2023 BP CONTROLLED (<130/80) BP CON TROLLED (<130/80) [facility] Start: 03-02-2023 BP CONTROLLED (<130/80) BP CON TROLLED (<130/80) [facility] Start: 02-04-2023 End: 04-06-2023 MISC SEND OUT TST 1 MISC SEND OUT TST 1 Lab Routine 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) Chemical exposure Expected: 02/04/2023, Expires: 04/06/2023 [facility] Work Phone: Comment on above: Expected: 02/04/2023 , Expires: 04/06/2023 Start: 12-01-2022 BP CONTROLLED (<130/80) BP CON TROLLED (<130/80) [facility] Start: 10-09-2022 ADVANCE DIRECTIVE DISCUSSION ADVANCE DIRECTIVE DISCUSSION [facility] Start: 07-25-2022 End: 09-24-2022 COPPER BLOOD COPPER BLOOD Lab Routine Memory change Expected: 07/25/2022, Expires: 09/24/2022 [facility] Work Phone: Comment on above: Expected: 07/25/2022 , Expires: 09/24/2022 Start: 07-25-2022 End: 09-24-2022 FM SQ NUTREVAL PANEL BLOOD AND URINE FM SQ NUTREVAL PANEL BLOOD AND URINE Lab Routine Impaired nutrient utilization Expected: 07/25/2022, Expires: 09/24/2022 [facility] Work Phone: Comment on above: Expected: 07/25/2022 , Expires: 09/24/2022 Start: 07-25-2022 End: 09-24-2022 Homocysteine [Moles/volume] in Serum or Plasma HOMOCYSTEINE Lab Routine Elevated homocysteine Expected: 07/25/2022, Expires: 09/24/2022 [facility] Work Phone: Comment on above: Expected: 07/25/2022 , Expires: 09/24/2022 Start: 07-25-2022 End: 07-25-2023 Thyrotropin [Units/volume] in Serum or Plasma TSH BLD Lab Routine Expected: 07/25/2022, Expires: 07/25/2023 [facility] Work Phone: Comment on above: Expected: 07/25/2022 , Expires: 07/25/2023 Start: 07-25-2022 End: 07-25-2023 Thyroxine (T4) free [Mass/volume] in Serum or Plasma T4 FREE/FREE THYROX Lab Routine Expected: 07/25/2022, Expires: 07/25/2023 [facility] Work Phone: Comment on above: Expected: 07/25/2022 , Expires: 07/25/2023 Start: 07-25-2022 End: 09-24-2022 Triiodothyronine (T3) Free [Mass/volume] in Serum or Plasma T3 FREE BLD Lab Routine Expected: 07/25/2022, Expires: 09/24/2022 [facility] Work Phone: Comment on above: Expected: 07/25/2022 , Expires: 09/24/2022 Start: 07-25-2022 End: 09-24-2022 Zinc [Mass/volume] in Serum or Plasma ZINC BLD Lab Routine Memory change Expected: 07/25/2022, Expires: 09/24/2022 [facility] Work Phone: Comment on above: Expected: 07/25/2022 , Expires: 09/24/2022 Start: 06-09-2022 Influenza vaccination [facility] Start: 05-31-2022 FUV, Provider: Mary Anne Snow, Status: Pen, Time: 11:50 AM FUV, Provider: Mary Anne Snow, Status: Pen, Time: 11:50 AM [facility] 250 DO Work Phone: Start: 05-25-2022 FUV, Provider: Mary Anne Snow, Status: Pen, Time: 1:00 PM FUV, Provider: Mary Anne Snow, Status: Pen, Time: 1:00 PM [facility] 250 DO Work Phone: Start: 10-09-2021 ADVANCE DIRECTIVE DISCUSSION ADVANCE DIRECTIVE DISCUSSION [facility] Start: 08-07-2019 Pneumococcal Vaccine : 65+ Years (2 - PPSV23 or PCV20) Pneumococcal Vaccine: 65+ Years (2 - PPSV23 or PCV20) [facility] Start: 2006 BONE DENSITY BONE DENSITY [facility] Start: 2006 PNEUMOCOCCAL: 65+ (1 - PCV) PNEUMOCOCCAL: 65+ (1 - PCV) [facility] Start: 2006 PNEUMOVAX AGE 65 AND OVER WITH 5YR LOOKBACK (#1) PNEUMOVAX AGE 65 AND OVER WITH 5YR LOOKBACK (#1) [facility] Start: 1991 SHINGRIX VACCINE (1 of 2) BYRNE GRIX VACCINE (1 of 2) [facility] Start: 1991 Zoster Vaccines (1 of 2) Zoste r Vaccines (1 of 2) [facility] Start: 1963 DTaP/Tdap/Td Vaccine s (1 - Tdap) DTaP/Tdap/Td Vaccines (1 - Tdap) [facility] Start: 1960 Urine microalbumin profile DTA P,TDAP,TD (1 - Tdap) [facility] Start: 1959 ANNUAL PCP TEAM PATCHER HELPER BRANNON DISEASE VISIT ANNUAL PCP TEAM CHRONIC DISEASE VISIT [facility] Start: 1959 BP CONTROLLED (<130/80) BP CON TROLLED (<130/80) [facility] Start: 1946 COVID-19 VACCINE (#1) COVID-19 VACCI NE (#1) [facility] Start: 1946 COVID-19 VACCINE (1) COVID-19 VACCIN E (1) [facility] Start: 05-09-1942 COVID-19 VACCINE (#1) COVID-19 VACCI NE (#1) [facility] Start: 1941 Lipid panel Lipid Panel [facility] Start: 1941 Medicare Annual Well ness Visit Medicare Annual Wellness Visit (AWV) [facility] Start: 1940 Screening for osteoporosis Bone Dens ity Scan [facility] End: 08-21-2023 US.doppler Carotid arteries - bilateral [facility] Service Area Work Phone: Comment on above: Once for 1 Occurrenc es starting 08/21/2023 until 08/21/2023 [facility] Immunizations Immunization Date Immunization Notes Care Provider Germain campos 08-07-2018 pneumococcal conjuga te vaccine, 13 valent Meng Paz Hoy Work Phone: [facility] DO Work Phone: NEGATED: Highlighted row has not occurred!08-08-2022 SARS-CoV-2 mRNA (tozinameran 5y-11y) vaccine Kunal LORA [facility] NEGATED: Highlighted row has not occurred!11-23-2020 influenza virus vaccine, unspecified formulation Kunal LORA [facility] Payers Date Payer Category Payer Medicare [employer] MEDICARE A ETNA MEDICARE PPO [id number] 2021-Present [phone] [address] [place] [address] PPO [id number] 2021 Medicare [id number] 1959 Medicare [id number] 1941 Unknown [id number] 1941 Unknown [id number] 93 1941 Unknown [id number] [id number] 1941 Unknown [id number] 93 1941 Unknown [id number] [id number] 93 1941 Unknown [id number] [id number] 56 1941 Unknown [id number] [id number] 27 1941 Unknown [id number] [id number] 27 1941 Unknown [id number] [id number] 27 1941 Unknown [id number] [id number] 27 1941 Unknown [id number] [id number] 27 1941 Unknown [id number] [id number] 27 1941 Unknown [id number] 259 Private Health Insurance [id number] [id number] Unknown [employer] Social History Date Type Detail Facility Start: 10-31-2022 End: 02-15-2023 Caffeine use Caffeine use [place] [address] DO Work Phone: Comment on above: decaff occasional co ffee, 1-2 cups of ohtt lionel daily; Start: 06-13-2019 End: 04-25-2023 Tobacco smoking status NHIS Never smoked tobacco [facility] Start: 06-13-2019 End: 07-25-2022 Tobacco use and exposure Smokeless tobacco non-user [facility] Start: 1940 Sex Assigned At Female [facility] Start: 12-07-2021 End: 08-21-2023 Exposure to SARS-CoV-2 (event) Not sure [facility] Start: 10-31-2022 End: 02-15-2023 Sex Assigned At Female [facility] Tobacco smoking status Never [facility] Start: 07-07-2020 Sexual orientation Heterosexual (beronica winters) [facility] Tobacco smoking stat us NHIS Tobacco smoking consumption unknown [facility] Work Phone: Start: 1940 Sex Assigned At Not on file [facility] Work Phone: Functional Status Date Assessment Result Facility 04-25-2023 Functional Status N/A [facility] 08-08-2022 Functional Status N/A [facility] Clinical Notes 01-31-2022 to 07-19-2023 Patient InstructionsPatient InstructionsChristiana Montero MD - 05/19/2023 4:[address] - 05/19/2023 3:00 PM EDTTelephone Encounter - Evelyn Flaherty LPN - 02/17/2023 8:17 AM EDT Note Date & Type Note Facility 07-19-2023 Evaluation + Plan note Diagnostic Tests PendingUrine Culture 07/19/23 [facility] 05-22-[address] - 05/22/2023 9:01 AM EDT [facility] MEDICINE FOLLOW UP NUTRITION INSTRUCTIONS Nutrition [...] Lionel Zero Pascha Recipes -Paleo Hot Chocolate: https://Qqbaobao.com/vegan-hot -chocolate-paleo/ -Keto No Bake Brownie Bites: https://www.[employer]uppy/keto -bd-mrld-tkhmhlq-bites/ -Whole Food Fudge: https://Gradient X/easy-raw -ewqna-mweck-cbqxj/ 2. Continue focus on the SEAMUS food plan principles previously discussed: -Jefferson-3 Rich Fish (wild-caught salmon, mackerel, anchovies, sardines, rodrigues): twice per week -Continue grass-fed beef 3-4X/week -Add legumes 3-4X/week Three jamil salad recipe: https://QuantConnect/class ya-ihlmq-eftr-salad/ -Add homemade vinaigrette coleslaw or green salad daily Vinegar based coleslaw: https://www.[employer]/vine lnn-dmvuu-wuopqvfh/ -Continue nuts/seeds daily I.e. almonds, walnuts, pecans [...] Patient Folder. (Or you can go to https://ZAPITANO.[facility]. org) 2. For nutrition related questions or concerns, [employer] message your physician and include Attn: Shelley Mitchell RD at the top of the message. [employer] ([employer] messaging is meant to support implementation of [...] Supplements: Supplements can be ordered from the [facility]'s [facility]'s Online Store: [email or web address]://store.The Daily Caller/#login New patients to the Healthy Living Shop will need to enter the provider code FUNCTIONAL to register their account. documented in this encounter [facility] 05-19-2023 Note HNO ID: [id number] Author: Christiana Montero MD Service: ? Author [...] OmegaGenics EPA-DHA 2400 (High Concentrate EPA/DHA liquid) (ePantry) Take one teaspoon (5 ml) 1 times daily with food UT Synergy ([employer]) antibacterial Take 1 capsule by mouth twice daily. Brain Misael Capsules (Nimble CRM) Take 2 tablets by mouth w MEALS. Neuromag ( [employer] CRM ) 90 ct Take 3 capsules per [...] MD Last Visit on Oct 2022 Provider: Klyah Symptoms What is the severity of your [...] diet to mix and match - cancelled surgery technician visit due to not having NutrEval back. [...] home testnig. Frustrate (more content not included)... [facility] 05-19-2023 Note HNO ID: [id number] Author: Shelley Mitchell RD Service: ? Author Type: Registered Dietitian Type: Progress Notes Filed: 05/22/2023 9:02 AM Note Text: [facility] Nutrition Therapy: Follow-Up Assessment (Individual) IN PERSON Accompanied by her spouse today Patient Name: Ann Marie Hill Past Medical History: PAST MEDICAL HISTORY Diagnosis Date Alzheimer disease (HCC) HTN (hypertension) Allergies: Ciprofloxacin, Penicillins, and Sulfa (Sulfonamide Antibiotics) Current Medications/Supplements Current Outpatient Medications on File Prior to Visit Medication Sig PhytoMulti 60s capsules (ePantry) Take 2 capsules daily, with meals. Glycine (Pure Encapsulations) Take 1 capsule 3 times daily in divided doses between meals. (1 [id number]) B-Complex Plus (Pure Encapsulations) Take 1 capsule by mouth daily with food. Glutathione (Medstro) Use 20 pumps daily (1000mg) divided doses [...] OmegaGenics EPA-DHA 2400 (High Concentrate EPA/DHA liquid) (ePantry) Take one teaspoon (5 ml) 1 times daily with food UT Synergy ([employer]) antibacterial Take 1 capsule by mouth twice daily. Neuromag ( [employer] CRM ) 90 ct Take 3 capsules per [...] disturbance (HCC) [G30.1, F02.818] Provider Nutrition Notes:Per process cheese cooker R41.3 Memory change (primary encounter diagnosis) F05 [...] Would like more print outs today vs. iodine Subjective (08/06/21) -Daughter christos on line: states [...] Biochemical and L (more content not included)... [facility] 05-19-2023 Note Education ([facility]) ANN MARIE HILL ([id number]) 1940 F Date Time Provider Department 05/19/23 3:00 PM SHELLEY MITCHELL [facility] Reason for Visit: Established Patient [175] [...] daily in divided doses between meals. (1 [id number]) - B-Complex Plus (Pure Encapsulations) Take 1 capsule by mouth daily with food. - Glutathione (Medstro) Use 20 pumps daily (1000mg) divided doses [...] OmegaGenics EPA-DHA 2400 (High Concentrate EPA/DHA liquid) (ePantry) Take one teaspoon (5 ml) 1 times daily with food - UT Synergy (Nimble CRM) antibacterial Take 1 capsule by mouth twice daily. - Neuromag ( Nimble CRM ) 90 ct Take 3 capsules per [...] Encounter Status:Closed by SHELLEY MITCHELL on 05/22/23 [facility] [facility] 05-19-2023 Instructions Christiana Montero MD - [...] cheese, dairy, whole grains, and eggs. The OPTICIAN MANAGER is 4.1 mg per kilogram of body weight or 1.9 mg per pound. Some high cysteine foods include: Soybeans, raw (609 mg per 1/2 cup) Oat bran, dry (541 mg per 1 cup) Pork ham, roasted (492 mg per 4 oz.) Tuna Fish, light, canned in oil, drained (456 mg per 1 cup) Chicken breast, cooked (444 mg per 4 oz.) Ekron breast, cooked (436 mg per 4 oz.) Beef angelo, cooked (408 mg per 4 oz.) Oat bran, cooked (217 mg per 1 cup) Egg, whole, raw, fresh (136 mg per 1 large egg) Alfalfa seeds, oil roasted (113 mg per 1 oz.) Cashews, oil-roasted (104 mg per 1 oz.) Peanuts, oil roasted (95 mg per 1 oz.) Chinese cheese, diced (83 mg per 1 oz.) [...] cofactor for the production of glutathione. The OPTICIAN MANAGER value to maximize glutathione production in the [...] peppers may be beneficial Functional Nutrition: per surgery technician Review and implement diet factors recommended through nutritional visit - use your health motorcoach driver for discussion on how to implement Sleep: [...] We recommend ordering supplementation online from the [facility] as they are high quality therapeutic supplements. [facility] offers an easy to use, convenient way to order supplementation recommended by your provider through the [employer]. All of the products offered are considered high-quality, and adhere to specific criteria for quality and effectiveness including good manufacturing practices, use of clean products, free of fillers, binders, and other antigens. In addition, we follow third alliance party analysis for independent verification of active ingredients. Get started by following three easy steps: A. Visit the following webpage: https://BeneChill.Multichannel. [employer]/ [employer] Statements on this site have not been [...] For issues with your MRN please call [phone] Stress Management [employer] -new technology to use a wearable device to retrain brain and focus on nervous system reduction. To learn more of this technology by going to (aor-zun-dpnuv) https://eyetok/ Please look into this Heart Rate Variability [...] one of the Heart Math booklets off [employer] that fits your 'go to' emotion - [...] Neural Retraining System - (Ketty Christensen) https://retrainingthebrain.com/a lor-amparo/ --- Frias Program - (John Frias) Https://www.Livra Panels.[employer]/ Finding time for self (no multitasking) at this time to dedicate to breathing / relaxation process. Work on cultivating ted! documented in this encounter [facility] 05-19-2023 History of Presen t illness Narrative [...] OmegaGenics EPA-DHA 2400 (High Concentrate EPA/DHA liquid) (ePantry) Take one teaspoon (5 ml) 1 times daily with food UT Synergy (Nimble CRM) antibacterial Take 1 capsule by mouth twice daily. Brain Misael Capsules (Nimble CRM) Take 2 tablets by mouth w MEALS. Neuromag ( Nimble CRM ) 90 ct Take 3 capsules per [...] MD Last Visit on January 2023 Provider Modalyssa Symptoms What is the severity of your symptoms? No shift or change at this time - still with owning - worse at 4 PM (agitation) - [...] diet to mix and match - cancelled surgery technician visit due to not having NutrEval back. [...] confusion, decreased concentration and sleep disturbance (excess). 08/11/23 1541 BP: 124/63 Pulse: 76 Weight: 70.9 [...] Phenylacetic,Benzoic, DHPAA Detox Markers Yeast markers Citramalic Jefferson 3 Index NOrmal Oxidative stress Lipid 9.7 8OHdg 11 Heavy metals Other Oxalate markers (glyceric, glycolic, oxalic) - all elevated Maritza Nutreval Jun 2020 High Need: Mod Need: All B's Amino acids: Malabsorption markers: Bacterial dysbiosis markers: Fungal dysbiosis markers:arabinose 55 Toxin/detox markers: high Jefferson-3 Index: 4.3 Glutathione level:998 Lipid peroxides:8.5 Toxic [...] processed foods. Think of plasminogens for Alzheimer's www.prodrome.[employer] Synapsin - if wishing to use notify [...] cheese, dairy, whole grains, and eggs. The OPTICIAN MANAGER is 4.1 mg per kilogram of body weight or 1.9 mg per pound. Some high cysteine foods include: Soybeans, raw (609 mg per 1/2 cup) Oat bran, dry (541 mg per 1 cup) Pork ham, roasted (492 mg per 4 oz.) Tuna Fish, light, canned in oil, drained (456 mg per 1 cup) Chicken breast, cooked (444 mg per 4 oz.) Ekron breast, cooked (436 mg per 4 oz.) Beef angelo, cooked (408 mg per 4 oz.) Oat bran, cooked (217 mg per 1 cup) Egg, whole, raw, fresh (136 mg per 1 large egg) Alfalfa seeds, oil roasted (113 mg per 1 oz.) Cashews, oil-roasted (104 mg per 1 oz.) Peanuts, oil roasted (95 mg per 1 oz.) Chinese cheese, diced (83 mg per 1 oz.) [...] cofactor for the production of glutathione. The OPTICIAN MANAGER value to maximize glutathione production in the [...] peppers may be beneficial Functional Nutrition: per surgery technician Review and implement diet factors recommended through nutritional visit - use your health motorcoach driver for discussion on how to implement Sleep: [...] We recommend ordering supplementation online from the [facility] [employer] as they are high quality therapeutic supplements. [facility] offers an easy to use, convenient way to order supplementation recommended by your provider through the [employer]. All of the products offered are considered high-quality, and adhere to specific criteria for quality and effectiveness including good manufacturing practices, use of clean products, free of fillers, binders, and other antigens. In addition, we follow third alliance party analysis for independent verification of active ingredients. Get started by following three easy steps: A. Visit the following webpage: [email or web address].The Daily Caller/ [employer] Statements on this site have not been [...] For issues with your MRN please call [phone] Stress Management [employer] -new technology to use a wearable device to retrain brain and focus on nervous system reduction. To learn more of this technology by going to (amx-izx-reomf) https://eyetok/ Please look into this Heart Rate Variability [...] one of the Heart Math booklets off [employer] that fits your 'go to' emotion - [...] fully) . --- Polyvagal theory (Connor Ybarra) https://www.connorOrasi Medical, Inc..com/ --- Dynamic Neural Retraining System - (Ketty Christensen) https://retrainingthebrain.com/a lor-amparo/ --- Frias Program - (John Frias) Https://www.Net Element/ Finding time for self (no multitasking) at this time to dedicate to breathing / relaxation process. Work on cultivating ted! Future Plans (for provider use): I spent a total of 45 minutes on the date of the service which included preparing to see the patient, rhev-ei-pirl patient care, completing clinical documentation, obtaining and/or reviewing separately obtained history, performing a medically appropriate examination, and ordering medications, tests, or procedures. Christiana Montreo MD documented in this encounter [facility] 05-19-2023 History of Presen t illness Narrative [facility] Functional Medicine Nutrition Therapy: Follow-Up Assessment (Individual) IN PERSON Accompanied by her spouse today Patient Name: Ann Marie Hill Past Medical History: PAST MEDICAL HISTORY Diagnosis Date Alzheimer disease (HCC) HTN (hypertension) Allergies: Ciprofloxacin, Penicillins, and Sulfa (Sulfonamide Antibiotics) Current Medications/Supplements Current Outpatient Medications on File Prior to Visit Medication Sig PhytoMulti 60s capsules (ePantry) Take 2 capsules daily, with meals. Glycine (Pure Encapsulations) Take 1 capsule 3 times daily in divided doses between meals. (1 [id number]=501ts) B-Complex Plus (Pure Encapsulations) Take 1 capsule by mouth daily with food. Glutathione (Medstro) Use 20 pumps daily (1000mg) divided doses [...] OmegaGenics EPA-DHA 2400 (High Concentrate EPA/DHA liquid) (ePantry) Take one teaspoon (5 ml) 1 times daily with food UT Synergy (Nimble CRM) antibacterial Take 1 capsule by mouth twice daily. Neuromag ( Nimble CRM ) 90 ct Take 3 capsules per [...] disturbance (HCC) [G30.1, F02.818] Provider Nutrition Notes:Per process cheese cooker R41.3 Memory change (primary encounter diagnosis) F05 [...] recall updated below; some restaurant meals at [facility] (focuses on 'chicken and vegetables'); endorses fish consumption limited to 2X/month Current Adverse Reactions to Foods: previously avoiding wheat, dairy, sugar, grains; not strict with this now Subjective (12/01/21) Weight has been stable: 118-120 Would like more print outs today vs. Cross[employer] (Former[employer] resources Subjective (08/06/21) -Daughter christos on line: [...] Biochemical and Laboratory Data Conventional/Advanced Testing NutrEval [facility] Date collected: 10/31/2022 Elevated Decreased Oxidative Stress 7 8-OHdG Mitochondrial Dysfunction 7 Magnesium Lactic Acid Isocitric Acid Succinic Acid Malic Acid Jefferson Imbalance 3 Toxic Exposure 8 Methylation Imbalance [...] Lionel Zero Pascha Recipes -Paleo Hot Chocolate: https://Qqbaobao.com/vegan-hot -chocolate-paleo/ -Keto No Bake Brownie Bites: https://www.Invisible Puppy/keto -cv-fpga-yfeksmc-bites/ -Whole Food Fudge: https://Gradient X/easy-raw -phfep-rfqpm-idouj/ 2. Continue focus on the SEAMUS food plan principles previously discussed: -Jefferson-3 Rich Fish (wild-caught salmon, mackerel, anchovies, sardines, rodrigues): twice per week -Continue grass-fed beef 3-4X/week -Add legumes 3-4X/week Three jamil salad recipe: https://QuantConnect/class bg-cklog-puhg-salad/ -Add homemade vinaigrette coleslaw or green salad daily Vinegar based coleslaw: https://www.[employer]/vine gfh-lylgv-chxnyevj/ -Continue nuts/seeds daily I.e. almonds, walnuts, pecans [...] idea below) Resources/Educational Materials Provided: sent through [facility] Adherence Potential to Goals/Care Plan: Moderate [...] Shelley Mitchell RD documented in this encounter [facility] 04-25-2023 Hospital Discharg e instructions Patient Education 04/25/2023 12:19:15 Urinary Tract Infection, Adult, Qhvu-ak-Tjje Urinary Tract Infection, Adult A urinary tract [...] Follow these instructions at home: Medicines Take pfij-ypq-trebehk and prescription medicines only as told by [...] provider. Document Revised: 05/07/2021 Document Reviewed: 05/07/2021 [employer] Patient Education 2022 [employer]. Follow Up Care 08/08/2022 16:24:54 With:DANIEL BOYER, ELLEN Bell, URL Address: [address] [place] [address] When: Unknown [facility] [place] 02-17-2023 Miscellaneous Notes NUTRITION RESOURCES SENT VIA [employer]. Evelyn Flaherty LPN February 17, 2023 8:17 AM documented in this encounter [facility] 02-16-[address] Hernández RD - 02/16/2023 2:20 PM EDT [facility] MEDICINE FOLLOW UP NUTRITION INSTRUCTIONS Nutrition Follow-up: In 6 months with Kasey Hernández RD. Your Prescribed Nutrition Plan: Seamus (Gluten-Free) 1. Continue with Seamus Food Plan (Dairy-Free/Gluten-Free), with the following targets: -Jefferson-3 Rich Fish (wild-caught salmon, mackerel, anchovies, sardines, rodrigues): twice per week -Continue grass-fed beef 3-4X/week -Add legumes 3-4X/week Three jamil salad recipe: https://Blue Lion Mobile (QEEP).[employer]/class it-rwzlr-zofp-salad/ -Add homemade vinaigrette coleslaw or green salad daily Vinegar based coleslaw: https://www.Jajah.[employer]/vine nbi-ctkfk-ncfcotlf/ -Continue nuts/seeds daily I.e. almonds, walnuts, pecans [...] soup idea below) 2. For bread, use Helijia Brand Base Adynxx: https://3nder/ (Keto bread near you in [place]) -Avoid starches, canola oil and sugars in [...] Functional Medicine Team (Open M-F 8am-5pm): 1. Commerce Scienceshart is the BEST form of communication to reach the Functional Medicine Team, see test results and request refills. Please allow 72 business hours for a response. Directions for signing up are included in your New Patient Folder. (Or you can go to [email or web address]) 2. For nutrition related questions or concerns, MyChart message your physician and include Attn: Kasey Hernández RD at the top of the message. Crossboard [employer] (Formerly [employer] messaging is meant to support implementation of [...] Supplements: Supplements can be ordered from the [facility]'s [facility]'s Online Store: [email or web address]://store.The Daily Caller/#login New patients to the [facility] [facility] will need to enter the provider code FUNCTIONAL to register their account. documented in this encounter [facility] 02-15-2023 Note HNO ID: [id number] Author: Kasey Hernández RD Service: ? Author Type: Registered Dietitian Type: Progress Notes Filed: 02/16/2023 2:20 PM Note Text: [facility] Nutrition Therapy: Follow-Up Assessment (Individual) IN PERSON [...] daily in divided doses between meals. (1 [id number]=751ed) B-Complex Plus (Pure Encapsulations) Take 1 capsule by mouth daily with food. Glutathione (Medstro) Use 20 pumps daily (1000mg) divided doses [...] OmegaGenics EPA-DHA 2400 (High Concentrate EPA/DHA liquid) (ePantry) Take one teaspoon (5 ml) 1 times daily with food UT Synergy (Nimble CRM) antibacterial Take 1 capsule by mouth twice daily. Neuromag ( Nimble CRM ) 90 ct Take 3 capsules per [...] Would like more print outs today vs. [employer] ([employer] resources Subjective (08/06/21) -Daughter christos on line: [...] Biochemical and Laboratory Data Conventional/Advanced Testing NutrEval [facility] Date collected: Elevated Decreased Oxidative Stress 7 8-OHdG Mitochondrial Dysfunction 7 Magnesium Lactic Acid Isocitric Acid Succinic Acid Malic Acid Jefferson Imbalance 3 Toxic Exposure 8 Methylation Imbalance [...] verbalized inaccurate/incomplete inform (more content not included)... [facility] 02-15-2023 Note Education (MEDFMN) ANN MARIE HILL ([id number]) 1940 F Date Time Provider Department 02/15/23 3:00 PM SAUNDRA HERNÁNDEZ KASEY KRISTIEGabriella Reason for Visit: Established Patient [175] Primary [...] as of 02/16/2023 - PhytoMulti 60s capsules (ePantry) Take 2 capsules daily, with meals. - Glycine (Pure Encapsulations) Take 1 capsule 3 times daily in divided doses between meals. (1 fnuwbsa=908gm) - B-Complex Plus (Pure Encapsulations) Take 1 capsule by mouth daily with food. - Glutathione (Medstro) Use 20 pumps daily (1000mg) divided doses [...] OmegaGenics EPA-DHA 2400 (High Concentrate EPA/DHA liquid) (ePantry) Take one teaspoon (5 ml) 1 times daily with food - UT Synergy (Nimble CRM) antibacterial Take 1 capsule by mouth twice daily. - Neuromag ( Nimble CRM ) 90 ct Take 3 capsules per [...] Encounter Status:Closed by KASEY RAE on 02/16/23 [facility] 02-15-2023 History of Presen t illness Narrative [facility] Functional Medicine Nutrition Therapy: Follow-Up Assessment (Individual) IN PERSON Patient Name: Ann Marie Hill Past Medical History: PAST MEDICAL HISTORY Diagnosis Date Alzheimer disease (HCC) HTN (hypertension) Allergies: Ciprofloxacin, Penicillins, and Sulfa (Sulfonamide Antibiotics) Current Medications/Supplements Current Outpatient Medications on File Prior to Visit Medication Sig PhytoMulti 60s capsules (ePantry) Take 2 capsules daily, with meals. Glycine (Pure Encapsulations) Take 1 capsule 3 times daily in divided doses between meals. (1 wurczry=907wo) B-Complex Plus (Pure Encapsulations) Take 1 capsule by mouth daily with food. Glutathione (Medstro) Use 20 pumps daily (1000mg) divided doses [...] OmegaGenics EPA-DHA 2400 (High Concentrate EPA/DHA liquid) (ePantry) Take one teaspoon (5 ml) 1 times daily with food UT Synergy (Nimble CRM) antibacterial Take 1 capsule by mouth twice daily. Neuromag ( Nimble CRM ) 90 ct Take 3 capsules per [...] Would like more print outs today vs. [employer] ([employer] resources Subjective (08/06/21) -Daughter christos on line: [...] Biochemical and Laboratory Data Conventional/Advanced Testing NutrEval FM Date collected: Elevated Decreased Oxidative Stress 7 8-OHdG Mitochondrial Dysfunction 7 Magnesium Lactic Acid Isocitric Acid Succinic Acid Malic Acid Jefferson Imbalance 3 Toxic Exposure 8 Methylation Imbalance [...] Food Plan (Dairy-Free/Gluten-Free), with the following targets: -Jefferson-3 Rich Fish (wild-caught salmon, mackerel, anchovies, sardines, rodrigues): twice per week -Continue grass-fed beef 3-4X/week -Add legumes 3-4X/week Three jamil salad recipe: https://QuantConnect/class fy-mkrdw-zuzt-salad/ -Add homemade vinaigrette coleslaw or green salad daily Vinegar based coleslaw: https://www.[employer]/vine dbf-bbedb-ezrfonvt/ -Continue nuts/seeds daily I.e. almonds, walnuts, pecans [...] soup idea below) 2. For bread, use Base Adynxx Brand Base Culture: https://3nder/ (Keto bread near you in [place]) -Avoid starches, canola oil and sugars in [...] Kasey Hernández RD documented in this encounter [facility] 02-03-2023 Note HNO ID: [id number] Author: Christiana Montero MD Service: ? Author [...] OmegaGenics EPA-DHA 2400 (High Concentrate EPA/DHA liquid) (ePantry) Take one teaspoon (5 ml) 1 times daily with food UT Synergy (Nimble CRM) antibacterial Take 1 capsule by mouth twice daily. Brain Misael Capsules (Nimble CRM) Take 2 tablets by mouth w MEALS. Neuromag ( Nimble CRM ) 90 ct Take 3 capsules per [...] diet to mix and match - cancelled surgery technician visit due to not having NutrEval back. [...] 2022 Evita Calderon (more content not included)... [facility] 02-03-2023 History of Presen t illness [...] OmegaGenics EPA-DHA 2400 (High Concentrate EPA/DHA liquid) (ePantry) Take one teaspoon (5 ml) 1 times daily with food UT Synergy (Nimble CRM) antibacterial Take 1 capsule by mouth twice daily. Brain Misael Capsules (Nimble CRM) Take 2 tablets by mouth w MEALS. Neuromag ( Nimble CRM ) 90 ct Take 3 capsules per [...] diet to mix and match - cancelled surgery technician visit due to not having NutrEval back. [...] vitamin deficiency) at this time. Check with surgery technician on how to improve - stressed importance [...] Phenylacetic,Benzoic, DHPAA Detox Markers Yeast markers Citramalic Jefferson 3 Index NOrmal Oxidative stress Lipid 9.7 8OHdg 11 Heavy metals Other Oxalate markers (glyceric, glycolic, oxalic) - all elevated Maritza Nutreval Jun 2020 High Need: Mod Need: All B's Amino acids: Malabsorption markers: Bacterial dysbiosis markers: Fungal dysbiosis markers:arabinose 55 Toxin/detox markers: high Jefferson-3 Index: 4.3 Glutathione level:998 Lipid peroxides:8.5 Toxic [...] , estradiol FUNCTIONAL MEDICINE PLAN: Meet with surgery technician to review NutrEval (with Christos) due to [...] - use of 2 tablespoons of Galdamez Alfalfa Lecithin Powder twice daily Consider Synapsin (compounded nasal spray) to assist for mood / anxiety - notify if wishing to consider. https://KIDOZ.[employer]/article/m edication-compounding/rg3-synaps cj-nfxbx-mqfim-zfgcl-vtlvov-tcsz t-kjt-nziqtxnut-memory-focus/ Stop the following: Brain Misael Riddle Multi t/d Stop the Functional Nutrition: per surgery technician Review and implement diet factors recommended through nutritional visit - use your health motorcoach driver for discussion on how to implement Sleep: [...] We recommend ordering supplementation online from the [facility] as they are high quality therapeutic supplements. [facility] offers an easy to use, convenient way to order supplementation recommended by your provider through the [employer]. All of the products offered are considered high-quality, and adhere to specific criteria for quality and effectiveness including good manufacturing practices, use of clean products, free of fillers, binders, and other antigens. In addition, we follow third alliance party analysis for independent verification of active ingredients. Get started by following three easy steps: A. Visit the following webpage: [email or web address]://[email or web address].The Daily Caller/ [employer] Statements on this site have not [...] For issues with your MRN please call [phone] Stress Management [employer] -new technology to use a wearable device to retrain brain and focus on nervous system reduction. To learn more of this technology by going to (flp-pht-tdnsp) https://eyetok/ Please look into this Heart Rate Variability [...] one of the Heart Math booklets off [employer] that fits your 'go to' emotion - [...] castro/ --- Frias Program - (John Frias) Https://www.raeStyloola.[employer]/ Finding time for self (no multitasking) at this time to dedicate to breathing / relaxation process. Work on cultivating ted! Future Plans (for provider use): I spent a total of 45 minutes on the date of the service which included preparing to see the patient, hgaq-su-urxo patient care, completing clinical documentation, obtaining and/or reviewing separately obtained history, performing a medically appropriate examination, and ordering medications, tests, or procedures. Christiana Montero MD documented in this encounter [facility] 10-31-2022 Note HNO ID: [id number] Author: Christiana Montero MD Service: ? Author [...] OmegaGenics EPA-DHA 2400 (High Concentrate EPA/DHA liquid) (ePantry) Take one teaspoon (5 ml) 1 times daily with food UT Synergy (Nimble CRM) antibacterial Take 1 capsule by mouth twice daily. Brain Misael Capsules (Nimble CRM) Take 2 tablets by mouth w MEALS. Neuromag ( Nimble CRM ) 90 ct Take 3 capsules per [...] diet to mix and match - cancelled surgery technician visit due to not having NutrEval back. [...] of Systems Constitutional: (more content not included)... [facility] 10-31-2022 History of Presen t illness [...] OmegaGenics EPA-DHA 2400 (High Concentrate EPA/DHA liquid) (ePantry) Take one teaspoon (5 ml) 1 times daily with food UT Synergy (Nimble CRM) antibacterial Take 1 capsule by mouth twice daily. Brain Misael Capsules (Nimble CRM) Take 2 tablets by mouth w MEALS. Neuromag ( Nimble CRM ) 90 ct Take 3 capsules per [...] diet to mix and match - cancelled surgery technician visit due to not having NutrEval back. [...] Stopped mold detox - sent labs to [facility] (pending) - home testnig. Frustrated [...] Fungal dysbiosis markers:arabinose 55 Toxin/detox markers: high Jefferson-3 Index: 4.3 Glutathione level:998 Lipid peroxides:8.5 Toxic [...] daylight exposure (Circadian) rhythm. Functional Nutrition: per surgery technician Review and implement diet factors recommended through nutritional visit - use your health motorcoach driver for discussion on how to implement Sleep: [...] We recommend ordering supplementation online from the [facility] as they are high quality therapeutic supplements. [facility] [employer] [facility] offers an easy to use, convenient way to order supplementation recommended by your provider through the [employer]. All of the products offered are considered high-quality, and adhere to specific criteria for quality and effectiveness including good manufacturing practices, use of clean products, free of fillers, binders, and other antigens. In addition, we follow third alliance party analysis for independent verification of active ingredients. Get started by following three easy steps: A. Visit the following webpage: [email or web address].The Daily Caller/ [employer] Statements on this site have not [...] For issues with your MRN please call [phone] Stress Management [employer] -new technology to use a wearable device to retrain brain and focus on nervous system reduction. To learn more of this technology by going to (chx-xak-jarka) https://eyetok/ Please look into this Heart Rate Variability [...] one of the Heart Math booklets off [employer] that fits your 'go to' emotion - [...] Neural Retraining System - (Ketty Christensen) https://retrainingthebrain.com/julieth horowitz-amparo/ --- Frias Program - (John Frias) Https://www.jose rafaelptaStyloola.Rioglass Solar Holding/ Finding time for self (no multitasking) at this time to dedicate to breathing / relaxation process. Work on cultivating ted! Future Plans (for provider use): 1. GI Effects? 2. [facility] [employer]? I spent a total of 30 minutes on the date of the service which included preparing to see the patient, vuym-mf-inyz patient care, completing clinical documentation, obtaining and/or reviewing separately obtained history, performing a medically appropriate examination, counseling and educating the patient/family/caregiver, ordering medications, tests, or procedures, and communicating with other HCPs (not separately reported). Christiana Montero MD documented in this encounter [facility] 10-28-2022 Miscellaneous Notes Spoke with patient's regarding NE urine collection for Monday's lab appointment. Evelyn Flaherty LPN October 28, 2022 12:17 PM documented in this encounter [facility] 10-06-2022 Note PROCEDURE: XR HIP RT [...] authenticated by: ALEXIS CAAL Date: 2022-10-06 07:37 [facility] 10-06-2022 Note PROCEDURE: XR HIP RT 2 [...] authenticated by: ALEXIS CAAL Date: 2022-10-06 07:37 [facility] 08-08-2022 Hospital Discharg e instructions Patient Education [...] Treatment for this condition includes: Antibiotic medicine. Colp-lcf-czietap medicines to treat discomfort. Drinking enough water [...] Follow these instructions at home: Medicines Take tpma-cpy-bdxcpzu and prescription medicines only as told by [...] 07/05/2006 Document Revised: 09/12/2019 Document Reviewed: 04/04/2019 Braingaze Patient Education 2020 [employer]. Follow Up Care 01/31/2022 15:18:00 With:GENO WATTS, Kunal Heller, URL Address: [facility] [address], [place] [address]- [phone] When:04/08/2023 [facility] Juanito 07-25-2022 Note HNO ID: [id number] Author: Christiana Montero MD Service: ? Author [...] saccharomyces boullardi 2 hrs away from nystatin/candibactin/diflucan. Uyff-Zyea-QV (Zygo Corporation) Take 1 capsule, 2 times daily with 4 oz or more of water. Glutathione (Medstro) - Liver support/detox Use 8 pumps daily , divided doses through out the day. (2 pumps = 100 mg Glutathione). Work up slowly to the higher dose. B-Complex Plus (Pure Encapsulations) Take 2 capsules by mouth daily with food. Multi t/d 60 ct. (Pure Encapsulations) - multivitamin Take 1 capsule by mouth twice daily with meals. OmegaGenics EPA-DHA 2400 (High Concentrate EPA/DHA liquid) (ePantry) Take one teaspoon (5 ml) 1 times daily with food UT Synergy (Nimble CRM) antibacterial Take 1 capsule by mouth twice daily. Brain Misael Capsules (Nimble CRM) Take 2 tablets by mouth w MEALS. Neuromag ( Nimble CRM ) 90 ct Take 3 capsules per [...] short term memory declining along with awareness. owning. Noting shift to Pristiq from lexapro with [...] no vitals file (more content not included)... [facility] 07-25-2022 Instructions Christiana Montero MD - 07/25/2022 12:38 PM EDT FUNCTIONAL MEDICINE PLAN: Mold testing - will review in coming days your recent test to determine if binders are beneficial at this time. I may recommend use of binder (remove of mold) depending on testing. NutrEval - will send to your residence. ([facility] [employer] [facility] blood/urine kit to assess for nutritional stores)---> [...] as nutritional evaluation) . Functional Nutrition: Per Assessment Expert Review and implement diet factors recommended through nutritional visit - use your health motorcoach driver for discussion on how to implement Supplement Support Review supplements - Based upon your lab assessments we may further recommend you consider additional items to these to supplement. No orders of the defined types were placed in this encounter. REMINDERS: Ordering Supplementation: We recommend ordering supplementation online from the [facility] Healthy Living Shop. It is felt these are high quality therapeutic supplements. [employer] (https://store.StreamLine Call) [facility] offers an easy to use, convenient way to order supplementation recommended by your provider through the [employer]. All of the products offered are considered high-quality, and adhere to specific criteria for quality and effectiveness including good manufacturing practices, use of clean products, free of fillers, binders, and other antigens. In addition, we follow third alliance party analysis for independent verification of active ingredients. Get started by following three easy steps: A. Visit the webpage: [email or web address].The Daily Caller/ [employer] Statements on this site have not been [...] For issues with your MRN please call [phone] Stress Management [employer] -new technology to use a wearable device to retrain brain and focus on nervous system reduction. To learn more of this technology by going to (oua-rzq-sqnxi) https://eyetok/ Behavioral Health Therapist: If I recommended counseling [...] one of the Heart Math booklets off [employer] that fits your 'go to' emotion - [...] Eduardo Gordon. (also has an poncho on Hack Upstate / YouFolio) Insight Meditation Timer- (Free)-Great all-around poncho to [...] Neural Retraining System - (Ketty Christensen) https://retrainingthebrain.com/a lor-amparo/ --- Frias Program - (John Frias) Https://www.raeStyloola.Rioglass Solar Holding/ Finding time for yourself (no multitasking) at this time to dedicate to breathing / relaxation process. Work on cultivating ted! You deserve it! documented in this encounter [facility] 07-25-2022 History of Presen t illness Narrative [...] saccharomyces boullardi 2 hrs away from nystatin/candibactin/diflucan. Inbp-Bzwa-OS (Zygo Corporation) Take 1 capsule, 2 times daily with 4 oz or more of water. Glutathione (Medstro) - Liver support/detox Use 8 pumps daily , divided doses through out the day. (2 pumps = 100 mg Glutathione). Work up slowly to the higher dose. B-Complex Plus (Pure Encapsulations) Take 2 capsules by mouth daily with food. Multi t/d 60 ct. (Pure Encapsulations) - multivitamin Take 1 capsule by mouth twice daily with meals. OmegaGenics EPA-DHA 2400 (High Concentrate EPA/DHA liquid) (ePantry) Take one teaspoon (5 ml) 1 times daily with food UT Synergy (Nimble CRM) antibacterial Take 1 capsule by mouth twice daily. Brain Misael Capsules (Nimble CRM) Take 2 tablets by mouth w MEALS. Neuromag ( Nimble CRM ) 90 ct Take 3 capsules per [...] short term memory declining along with awareness. ing. Noting shift to Pristiq from lexapro with [...] NutrEval - will send to your residence. ([facility] blood/urine kit to assess for nutritional stores)---> [...] as nutritional evaluation) . Functional Nutrition: Per Assessment Expert Review and implement diet factors recommended through nutritional visit - use your health motorcoach driver for discussion on how to implement Supplement Support Review supplements - maintain your B support at this time and Brain Misael only. Wait on Multivitamin until you have completed NutrEval for 2021. REMINDERS: Ordering Supplementation: We recommend ordering supplementation online from the [facility] [employer]. It is felt these are high quality therapeutic supplements. [employer] (https://BeneChill.StreamLine Call) [facility] offers an easy to use, convenient way to order supplementation recommended by your provider through the [employer]. All of the products offered are considered high-quality, and adhere to specific criteria for quality and effectiveness including good manufacturing practices, use of clean products, free of fillers, binders, and other antigens. In addition, we follow third alliance party analysis for independent verification of active ingredients. Get started by following three easy steps: A. Visit the webpage: [email or web address].The Daily Caller/ [employer] Statements on this site have not been [...] For issues with your MRN please call [phone] Stress Management [employer] -new technology to use a wearable device to retrain brain and focus on nervous system reduction. To learn more of this technology by going to (asc-ixs-fncam) https://eyetok/ Behavioral Health Therapist: If I recommended counseling [...] one of the Heart Math booklets off [employer] that fits your 'go to' emotion - [...] Eduardo Gordon. (also has an poncho on [employer]state / [employer]) Insight Meditation Timer- (Free)-Great all-around poncho to [...] fully) . --- Polyvagal theory (Connor Ybarra) https://www.stepGetJar.Rioglass Solar Holding/ --- Dynamic Neural Retraining System - (Ketty Amparo) https://retrainingthebrain.com/a chioalex-hopper/ --- Frias Program - (John Frias) Https://www.ReNew PowerptaStyloola.Rioglass Solar Holding/ Finding time for yourself (no multitasking) at this time to dedicate to breathing / relaxation process. Work on cultivating ted! You deserve it! I spent a total of 60 minutes on the date of the service which included preparing to see the patient, yuxs-mo-ghso patient care, completing clinical documentation, obtaining and/or reviewing separately obtained history, counseling and educating the patient/family/caregiver, ordering medications, tests, or procedures, independently interpreting results (not separately reported), and communicating results to the patient/family/caregiver. Christiana Montero MD documented in this encounter [facility] 03-18-2022 Instructions Evita Calderon MD - 03/18/2022 [...] encounter. I recommend the supplements from the [facility] BioMimetix Pharmaceutical Online Store at https://BeneChill.The Daily Caller/ as we have thoroughly evaluated the research and use only highest quality supplements. Please use code: functional. Future Plans: Mold Memory Follow up: Please schedule a follow up visit with the following Caregivers: Provider: [address] Montero in person LIFESTYLE PRESCRIPTION Functional Nutrition: Per process cheese cooker Sleep: Sleep goal for most adults is [...] Health Coaching: Please consider scheduling with our [facility] health coaches for a phone or virtual visit for accountability, goal setting and help with behavior change coordinator the next 6-8 weeks to be successful with your goals. [phone]. Smart phone apps to begin a meditative [...] on your diet plan discussed with our process cheese cooker, allowing for gentle detoxification and decreasing inflammation - while we are gathering your lab results and combining those with your complete history to formulate a very personalized treatment plan. LAB results: Due to the complexity of the testing performed, we are not able to review labs via Top10 Mediat or over the phone, but please know, [...] Also make sure to schedule with the process cheese cooker (this will not happen automatically) as you [...] appointment. You can access them on the [facility] [facility] website and it can be beneficial if you review them prior to your next visit. www.Magnitude Software.net. Read about NutrEval if this was ordered. documented in this encounter [facility] 03-18-2022 History of Presen t illness Narrative [...] saccharomyces boullardi 2 hrs away from nystatin/candibactin/diflucan. Xsvl-Nasc-LC (AccuNostics Research Labs) Take 1 capsule, 2 times daily with 4 oz or more of water. Glutathione (Medstro) - Liver support/detox Use 8 pumps daily , divided doses through out the day. (2 pumps = 100 mg Glutathione). Work up slowly to the higher dose. B-Complex Plus (Pure Encapsulations) Take 2 capsules by mouth daily with food. Multi t/d 60 ct. (Pure Encapsulations) - multivitamin Take 1 capsule by mouth twice daily with meals. OmegaGenics EPA-DHA 2400 (High Concentrate EPA/DHA liquid) (ePantry) Take one teaspoon (5 ml) 1 times daily with food UT Synergy (Nimble CRM) antibacterial Take 1 capsule by mouth twice daily. Brain Misael Capsules (Nimble CRM) Take 2 tablets by mouth w MEALS. Neuromag ( Nimble CRM ) 90 ct Take 3 capsules per [...] 22.31 kg/(m^2). Bioelectrical Impedance Analysis Results by [employer] Recent Results from: 03/18/22 at 13:34 [...] Fungal dysbiosis markers:arabinose 55 Toxin/detox markers: high Jefferson-3 Index: 4.3 Glutathione level:998 Lipid peroxides:8.5 Toxic [...] encounter. I recommend the supplements from the [facility] [employer] Living Store Online Store at https://store.The Daily Caller/ as we have thoroughly evaluated the research and use only highest quality supplements. Please use code: functional. Future Plans: Follow up: Please schedule a follow up visit with the following Caregivers: Provider: [address] Montero in person LIFESTYLE PRESCRIPTION Functional Nutrition: Per process cheese cooker Sleep: Sleep goal for most adults is [...] Health Coaching: Please consider scheduling with our [facility] health coaches for a phone or virtual visit for accountability, goal setting and help with behavior change coordinator the next 6-8 weeks to be successful with your goals. [phone]. Smart phone apps to begin a meditative [...] on your diet plan discussed with our process cheese cooker, allowing for gentle detoxification and decreasing inflammation - while we are gathering your lab results and combining those with your complete history to formulate a very personalized treatment plan. LAB results: Due to the complexity of the testing performed, we are not able to review labs via Top10 Mediat or over the phone, but please know, [...] Also make sure to schedule with the process cheese cooker (this will not happen automatically) as you [...] appointment. You can access them on the [facility] website and it can be beneficial if you review them prior to your next visit. www.Magnitude Software.net. Read about NutrEval if this was ordered. *Evita Calderon MD I spent a total of 30 minutes on the date of the service which included bmal-lq-gkma patient care, completing clinical documentation, obtaining and/or reviewing separately obtained history, performing a medically appropriate examination, counseling and educating the patient/family/caregiver and ordering medications, tests, or procedures. documented in this encounter [facility] 03-02-2022 Instructions EMMA Smalls - 03/02/2022 11:40 AM EDT Dear Mr. & Mrs. Hill, Our team had the pleasure of seeing you today at [facility]. We reviewed your evaluation of memory, mood and overall functioning. We discussed the testing we completed. We use a tool called the MOCA (Midland Cognitive Assessment). This is a brief tool [...] in more information, contact our office at [phone]. We are happy to hear that Orestes [...] providers located near your home: Sarah Morataya ELEMENTARY SCHOOL READING TEACHER & Adriana Andrews ELEMENTARY SCHOOL READING TEACHER [facility], [address]. ([phone]). When there is a diagnosis of dementia, no matter the type, we encourage families to educate themselves, learn communication tips, and learn ways to adjust expectations over time. There are many resources available online. Three excellent resources are: The Alzheimer's Association (web site: alz.org/corado) available 24 hours a day, 7 days per week. Contact: Local: ; Toll free: [phone] We recommend family explore the Alzheimer's Association website to learn more about managing behavioral symptoms. You can click on the following tabs to gather more information on managing specific behaviors. Click on HELP AND SUPPORT -> CAREGIVING -> STAGES AND BEHAVIOR Family Caregiver [place] (web site: Caregiver.org) [employer]-- a secure online solution for quality information, support, and resources for family caregivers. Contact: Toll-free number: [phone] Alzheimers.gov Find Alzheimer disease and related dementias [...] information is needed, please call our social group worker EMMA Smalls at [phone]. As per our discussion of advanced directives, we understand you have these documents in place which is excellent. We have obtained a copy that will be scanned into your medical record. We would like you to return to [facility] for a follow up visit in 9-12 months. Our office can be reached by calling [phone] Option 1. Sincerely, MD Philomena Hampton RN Tangy Kirtz, EMMA Turner documented in this encounter [facility] 03-02-2022 Nurse Note Ann Marie Hill is a 81 year old year old right handed woman Accompanied by: spouse. 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 Pt states that she is here for a check-up Vital Signs: BP 115/53 (BP Site: Left Arm, BP Position: Sitting, BP Cuff Size: Regular Adult) Pulse 75 Wt 56.6 kg (124 lb 12.8 oz) BMI 22.83 kg/m Philomena Mondragon RN documented in this encounter [facility] 03-02-2022 History of Presen t illness Narrative Reason for Consult: Alzheimer's dementia I had the pleasure of seeing this 81 year old year old female at the [facility]. The patient is referred by Evita Yinlid chris [place] [id number] Patient is accompanied by and information obtained [...] are local; other two sons live in [place] and [place]). Housing: Lives with spouse Pt is occasionally left home alone if she is sleeping Agencies involved: Caregiver from [employer] visits once per week to stay with the pt while spouse runs errands. [employer] friends also assist. ADL'S: Independent with dressing, [...] saccharomyces boullardi 2 hrs away from nystatin/candibactin/diflucan. Zjiy-Jzcb-CL (Zygo Corporation) Take 1 capsule, 2 times daily with 4 oz or more of water. Glutathione (Medstro) - Liver support/detox Use 8 pumps daily , divided doses through out the day. (2 pumps = 100 mg Glutathione). Work up slowly to the higher dose. B-Complex Plus (Pure Encapsulations) Take 2 capsules by mouth daily with food. Multi t/d 60 ct. (Pure Encapsulations) - multivitamin Take 1 capsule by mouth twice daily with meals. OmegaGenics EPA-DHA 2400 (High Concentrate EPA/DHA liquid) (ePantry) Take one teaspoon (5 ml) 1 times daily with food UT Synergy (Nimble CRM) antibacterial Take 1 capsule by mouth twice daily. Brain Misael Capsules (Nimble CRM) Take 2 tablets by mouth w MEALS. Neuromag ( Nimble CRM ) 90 ct Take 3 capsules per [...] or tenderness Neurological Exam Brief Neuropsychiatric Evaluation: Midland Cognitive Assessment (MoCA) Version 1 Total Score: [...] which included preparing to see the patient, mamw-lm-llwr patient care, performing a medically appropriate examination, completing clinical documentation, and on counseling/ eductaing the patient and the family. Han Britton MD documented in this encounter [facility] 01-31-2022 Hospital Discharg e instructions Patient Education [...] reconstructed. Follow these instructions at home: Take cjae-ile-eoxlocy and prescription medicines only as told by [...] 10/21/2016 Document Revised: 05/08/2019 Document Reviewed: 05/08/2019 Braingaze Patient Education [employer]. Follow Up Care 08/02/2021 15:26:51 With:GENO WATTS, Kunal Heller, URL Address: [facility] [address] , [place] [phone] When: Unknown [facility] Evaluation + Plan note Future Appointments Appointment Date:08/08/2022 02:45:00 PM Scheduled Provider:Kunal LORA MD Location:[facility] Appointment Type:URO Office Visit [facility] Evaluation + Plan note Future Appointments Appointment Date:08/10/2022 08:45:00 AM Scheduled Provider: Location:[facility] Appointment Type:URO Nurse Visit Appointment Date:04/17/2023 02:30:00 PM Scheduled Provider:Kunal LORA MD [facility] Appoint[facility] Type:URO Office Visit [facility] Evaluation + Plan note Future Appointments Appointment Date:04/17/2023 02:30:00 PM Scheduled Provider:Kunal LORA MD Location:[facility] Appointment Type:URO Office Visit [facility] Evaluation + Plan note Future Appointments Appointment Date:04/24/2023 02:15:00 PM Scheduled Provider:Kunal LORA MD Location:[facility] Appointment Type:URO Office Visit [facility] Evaluation note Diagnosis Cognitive communication deficit- Primary Alzheimer's dementia with behavioral disturbance, unspecified timing of dementia onset (HCC) documented in this encounter [facility] note* Diagnosis 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 documented in this encounter [facility] note* Diagnosis 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 Alzheimer's dementia with behavioral disturbance, unspecified timing of dementia onset documented in this encounter [facility] note* Diagnosis Memory change- Primary Memory [...] behavioral disturbance (HCC) [facility] Diagnosis 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 Unspecified vitamin B deficiency Chemical exposure Contact with and (suspected) exposure to other potentially hazardous chemicals Poor diet Unspecified nutritional deficiency Impaired nutrient utilization [facility] Diagnosis 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 Unspecified vitamin B deficiency Poor diet Unspecified nutritional deficiency Dietary counseling and surveillance Dietary surveillance and counseling [facility] Diagnosis Memory change- Primary Memory loss Sundowning Reactive confusion Poor diet Unspecified nutritional deficiency Chemical exposure Contact with and (suspected) exposure to other potentially hazardous chemicals [facility] 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 Sundowning Reactive confusion Dietary counseling and surveillance Dietary surveillance and counseling [facility] Diagnosis Carotid stenosis, bilateral Occlusion and stenosis of carotid artery without mention of cerebral infarction Benign hypertension Essential hypertension, benign documented in this encounter [facility] Work Phone: Evaluation note* Diagnosis Carotid stenosis, bilateral Occlusion and stenosis of carotid artery without mention of cerebral infarction Benign hypertension Essential hypertension, benign [facility] [facility] Work Phone: History of Present [...] reviewed with her her recent lab work -[facility] 250 DO Work Phone: History [...] me change in cardiac status or symptoms [facility] 250 DO Work Phone: History of Present [...] try to retrieve her recent lab work [facility] [employer] 250 DO Work Phone: Hospital course Narrative No data available for this section [facility] Discharge instructions No data available for this section [facility] progress note No data available for this section [facility] Summary Purpose Family History No Family History [...] FoundDocuments on File Type Date Recorded Patient Nurse Paralegal Expl anation Advance Directive(s) 03/02/2022 2:05 PM Ad torres Directive Documents on File Type Date Recorded Patient Nurse Paralegal Expl anation Advance Directive(s) 03/02/2022 2:05 PM [...] duplex bilateral Mary Anne Snow MD [address] [address], [address] [address] Referral ID Status Reason Start Date Expiration Date Visits Requested Visits Authorized [id number] Authorized Perform Procedure 06/25/2023 12/22/2023 1 1 Specialty Diagnoses / Procedures Referred By Contac t Referred To Contact Psychiatry / ADULT PSYCHIATRY Diagnoses Alzheimer's dementia with behavioral disturbance, unspecified timing of dementia onset Procedures CONSULT TO PSYCHIATRY OFFICE/OUTPATIENT [facility] 60-74 MINUTES Evita Calderon MD [address] [place] [address] Hemal Hopper MD [address] [place] [address] Referral ID Status Reason Start Date Expiration Date Visits Requested Visits Authorized [id number] Pending Review PCP Requested Referral 06/17/2022 06/17/2023 1 1 Specialty Diagnoses / Procedures Referred By Contac t Referred To Contact [facility] Diagnoses Cognitive communication deficit Procedures CONSULT TO SPEECH THERAPY OFFICE/OUTPATIENT [facility] 60-74 MINUTES Han Britton MD [address] [place] [address] [facility] [place] [address] Referral ID Status Reason Start Date Expiration Date Visits Requested Visits Authorized [id number] Pending Review Auto-Generat ed Referral 03/02/2022 03/02/2023 1 1 Additional Source Comments INFORMATION SOURCE (unrecogn ized section and content) DATE CREATED AUTHOR 04/03/2018 [facility] DATE CREATED AUTHOR AUTHOR'S ORGANIZ ATION 06/25/2020 [facility] DATE CREATED AUTHOR AUTHOR'S ORGANIZ ATION 11/07/2022 [facility] DATE CREATED AUTHOR AUTHOR'S ORGANIZ ATION 05/22/2023 [facility] DATE CREATED AUTHOR AUTHOR'S ORGANIZ ATION 06/07/2023 [facility] DATE CREATED AUTHOR AUTHOR'S ORGANIZ ATION 06/07/2023 [facility] DATE CREATED AUTHOR AUTHOR'S ORGANIZ ATION 07/23/2023 [facility] DATE CREATED AUTHOR AUTHOR'S ORGANIZ ATION 09/22/2023 [facility] EPIC Source Comments (unrecognize d section and content) In the event this informatio n is protected by the Federal Confidentiality of Alcohol and Drug Abuse Patient Records regulations: The Federal rules restrict any use of the information to criminally investigate or prosecute any alcohol or drug abuse patient.[facility] the event this information is protected by the Federal Confidentiality of Alcohol and Drug Abuse Patient Records regulations: The Federal rules restrict any use of the information to criminally investigate or prosecute any alcohol or drug abuse patient.[facility] CenterIn the event this information is protected by the Federal Confidentiality of Alcohol and Drug Abuse Patient Records regulations: The Federal rules restrict any use of the information to criminally investigate or prosecute any alcohol or drug abuse patient.[facility] CenterIn the event this information is protected by the Federal Confidentiality of Alcohol and Drug Abuse Patient Records regulations: The Federal rules restrict any use of the information to criminally investigate or prosecute any alcohol or drug abuse patient.[facility] CenterIn the event this information is protected by the Federal Confidentiality of Alcohol and Drug Abuse Patient Records regulations: The Federal rules restrict any use of the information to criminally investigate or prosecute any alcohol or drug abuse patient.[facility] CenterIn the event this information is protected by the Federal Confidentiality of Alcohol and Drug Abuse Patient Records regulations: The Federal rules restrict any use of the information to criminally investigate or prosecute any alcohol or drug abuse patient.[facility] CenterIn the event this information is protected by the Federal Confidentiality of Alcohol and Drug Abuse Patient Records regulations: The Federal rules restrict any use of the information to criminally investigate or prosecute any alcohol or drug abuse patient.[facility] CenterIn the event this information is protected by the Federal Confidentiality of Alcohol and Drug Abuse Patient Records regulations: The Federal rules restrict any use of the information to criminally investigate or prosecute any alcohol or drug abuse patient.[facility] CenterIn the event this information is protected by the Federal Confidentiality of Alcohol and Drug Abuse Patient Records regulations: The Federal rules restrict any use of the information to criminally investigate or prosecute any alcohol or drug abuse patient.[facility] CenterIn the event this information is protected by the Federal Confidentiality of Alcohol and Drug Abuse Patient Records regulations: The Federal rules restrict any use of the information to criminally investigate or prosecute any alcohol or drug abuse patient.[facility] CenterIn the event this information is protected by the Federal Confidentiality of Alcohol and Drug Abuse Patient Records regulations: The Federal rules restrict any use of the information to criminally investigate or prosecute any alcohol or drug abuse patient.[facility] CenterIn the event this information is protected by the Federal Confidentiality of Alcohol and Drug Abuse Patient Records regulations: The Federal rules restrict any use of the information to criminally investigate or prosecute any alcohol or drug abuse patient.[facility] CenterIn the event this information is protected by the Federal Confidentiality of Alcohol and Drug Abuse Patient Records regulations: The Federal rules restrict any use of the information to criminally investigate or prosecute any alcohol or drug abuse patient.[facility] CenterIn the event this information is protected by the Federal Confidentiality of Alcohol and Drug Abuse Patient Records regulations: The Federal rules restrict any use of the information to criminally investigate or prosecute any alcohol or drug abuse patient.[facility] CenterIn the event this information is protected by the Federal Confidentiality of Alcohol and Drug Abuse Patient Records regulations: The Federal rules restrict any use of the information to criminally investigate or prosecute any alcohol or drug abuse patient.[facility] CenterIn the event this information is protected by the Federal Confidentiality of Alcohol and Drug Abuse Patient Records regulations: The Federal rules restrict any use of the information to criminally investigate or prosecute any alcohol or drug abuse patient.[facility] CenterIn the event this information is protected by the Federal Confidentiality of Alcohol and Drug Abuse Patient Records regulations: The Federal rules restrict any use of the information to criminally investigate or prosecute any alcohol or drug abuse patient.[facility] CenterIn the event this information is protected by the Federal Confidentiality of Alcohol and Drug Abuse Patient Records regulations: The Federal rules restrict any use of the information to criminally investigate or prosecute any alcohol or drug abuse patient.[facility] Care Teams (unrecognized sec tion and content) Paste Maker Relationship Specialty Start Date End Date Meng Prater MD [address] [place] [address] PCP - General Family Practice 07/15/20 Paste Maker Relationship Specialty Start Date End Date Meng Prater MD [address] [place] [address] PCP - General Family Practice 07/15/20 Paste Maker Relationship Specialty Start Date End Date Meng Prater MD [address] [place] [address] PCP - General Family Practice 07/15/20 Paste Maker Relationship Specialty Start Date End Date Meng Prater MD [address] [place] [address] PCP - General Family Practice 07/15/20 Paste Maker Relationship Specialty Start Date End Date Meng Prater MD [address] [id number] PCP - General Family Medicine 07/15/20 Paste Maker Relationship Specialty Start Date End Date Meng Prater MD [address] [place] [address] PCP - General Family Medicine 07/15/20 Paste Maker Relationship Specialty Start Date End Date Meng Prater MD [address] [id number] PCP - General Family Medicine 07/15/20 Paste Maker Relationship Specialty Start Date End Date Meng Prater MD [address] [place] [address] PCP - General Family Medicine 07/15/20 Paste Maker Relationship Specialty Start Date End Date Meng Prater MD [address] [id number] PCP - General Family Medicine 07/15/20 Paste Maker Relationship Specialty Start Date End Date Meng Prater MD PCP - General Family Medicine 07/15/20 Paste Maker Relationship Specialty Start Date End Date Meng Prater MD PCP - General Family Medicine 07/15/20 Paste Maker Relationship Specialty Start Date End Date Meng Prater MD PCP - General Family Medicine 07/15/20 Paste Maker Relationship Specialty Start Date End Date Meng Prater MD PCP - General Family Medicine 07/15/20 Paste Maker Relationship Specialty Start Date End Date Meng Prater MD PCP - General Family Medicine 07/15/20 Paste Maker Relationship Specialty Start Date End Date Meng Prater MD PCP - General Family Medicine 07/15/20 Paste Maker Relationship Specialty Start Date End Date Meng Prater MD PCP - General Family Medicine 07/15/20 Paste Maker Relationship Specialty Start Date End Date Meng Prater MD [address] [place] [address] PCP - General 09/11/19 Paste Maker Relationship Specialty Start Date End Date Meng Prater MD [address] [place] [address] PCP - General 09/11/19 Reason for Visit (unrecogniz ed section and content) Reason Comments New Patient Evaluation Specialty Diagnoses / Procedures Referred By Contac t Referred To Contact Neurology / NEUROLOGY Diagnoses Alzheimer's dementia with behavioral disturbance, unspecified timing of dementia onset (HCC) Procedures CONSULT TO NEUROLOGY NEW PATIENT VISIT LEVEL 5 Evita Calderon MD [address] [place] [address] Neur [facility] [address] [place] [address] Referral ID Status Reason Start Date Expiration Date Visits Requested Visits Authorized [id number] Pending Review PCP Requested Referral 04/01/2021 04/01/2022 1 1 Reason Comments Established Patient Reason Comments Established Patient Memory Loss New Patient Reason Comments Patient Question Reason Comments Appointment Specialty Diagnoses / Procedures Referred By Toña t Referred To Contact Cardiology Diagnoses Carotid stenosis, bilateral Benign hypertension Procedures Vascular US carotid artery duplex bilateral Mary Anne Snow MD [address] [facility] [address], [address] [address] Referral ID Status Reason Start Date Expiration Date Visits Requested Visits Authorized [id number] Authorized Perform Procedure 06/25/2023 12/22/2023 1 1 [...] BE BASED ON THE PRIMARY CLINICAL RECORDS. [facility]. provides no warranty or guarantee of the accuracy or completeness of information in this document.
== END 2023-10-31 15:27 | disposition home or self-care (01) ==
LOC: RAD 15:26
PROVIDERS: PCP Family Medicine; Visit Provider Podiatrist Foot & Ankle Surgery
DX: M25.572 Pain in left ankle and joints of left foot (principal); S89.392D Other physeal fracture of lower end of left fibula, subsequent encounter for fracture with routine healing
CPT/HCPCS: 73610

== ENCOUNTER 2023-12-12 08:38 | Outpatient (REF) | payer MEDICARE, SELFPAY ==
--- OUTSIDE RECORDS SUMMARY | 2023-12-12 08:47 | XMS_ITS | CCD ---
Author Name Unknown Address [address] [place] [address] Organization [facility] Care Team Providers Care Floater Operator Name Role Phone TALA SNOWF Unavailable Unavailable GWENDOLYN MOURDEONTEF Unavailable Unavailable Meng Prater Unavailable Unavailable Unavailable Meng Prater MD Primary Care Provider [phone] Meng Prater Primary Care Physician Meng Prater MD Primary Care Provider [phone] Meng Prater MD Primary Care Provider [phone] DR MENG PRATER Admitting Unavailable JOSI, DR [...] Unavailable DR SAMM GATES Consulting Unavailable DR MNEG PRATER Primary Care Unavailable JOSI, DR SAWANT Admitting Unavailable JOSI, DR SAWANT Attending Unavailable JOSI, DR SAWANT Consulting Unavailable AFUA, DR ALEXIS Elizabeth Consulting Unavailable Meng Prater MD Primary Care Provider [phone] MENG PRATER Primary Care Unavailable MENG [...] Unavailable Meng Prater MD Primary Care Provider MAUREEN BALLESTEROS Attending Unavailable MAUREEN BALLESTEROS Referring Unavailable Allergies Allergy Classification Reported Allergen(s) Allergy Type Date of Onset Reaction(s) Facility (14 sources) Penicillins; Translations: [Penicillins] Allergy to drug (finding) 3 Unknown (qualifier value) [facility] 250 DO Work Phone: (5 sources) Sulfamethoxazole; Translations: [sulfa] Drug Allergy Rash [place] [address] DO Work Phone: (19 sources) Ciprofloxacin; Translations: [CIPROFLOXACIN] Drug Allergy 9 [facility] (3 sources) Penicillins Drug Allergy 3 [facility] (19 sources) Sulfonamides (Antibiotic); Translations: [SULFA (SULFONAMIDE ANTIBIOTICS)] Drug Allergy 9 Rash [facility] (8 sources) Sulfonamides (Antibiotic); Translations: [sulfa drugs] Drug allergy Unknown (qualifier value) [facility] (15 sources) Penicillins Drug Allergy 3 [facility] (7 sources) NITROFURANTOIN, MACROCRYSTALS / Nitrofurantoin, Monohydrate; Translations: [nitrofurantoin] Drug Allergy 1 itching [facility] (1 source) Ciprofloxacin Drug Allergy [facility] (1 source) Penicillins Drug allergy (disorder) 3 [facility] (1 source) Sulfonamides (Antibiotic) Drug allergy (disorder) [facility] Medications Current Medications Medication Drug Class(es) [...] by mouth once daily. Brain Misael Capsules (RocketOn) (12 sources) Start: 07-08-2020 End: 02-04-2023 take 2 tablets by mouth at mealtime Brain Misael Capsules (RocketOn) Take 2 tablets by mouth w MEALS. 0 07/08/2020 02/04/2023 Discontinued Start: 07-08-2020 take [address] [facility] at mealtime Brain Misael Capsules (RocketOn) Take 2 tablets by mouth w MEALS. [...] by mo uth twice daily with meals. Shannon-3 350 mg oral capsule (7 sources) Start: 11-23-2020 take 1 capsule by mouth once daily Shannon-3 350 mg oral capsule mg cap(s), Oral, [...] daily. 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 (2 pumps = 100 mg Glutathione) 0 02/04/2023 Active Comment on above: Use 20 pumps daily ( 1000mg) divided doses through out the day. (2 pumps = 100 mg Glutathione) Glutathione ([facility]) - Liver support/detox (8 sources) Start: 12-01-2021 End: 07-25-2022 Glutathione ([facility]) - Liver support/detox Use 8 pumps daily , divided doses through out the day. (2 pumps = 100 mg Glutathione). Work up slowly to the higher dose. 0 12/01/2021 07/25/2022 Discontinued Start: 12-01-2021 Glutathione ([employer]) - Liver support/detox Use 8 pumps daily [...] daily in divided doses between meals. (1 wcdflnf=289ck) 0 02/04/2023 Active Comment on above: Take 1 capsule 3 fidel es daily in divided doses between meals. (1 ncwqxtf=607io) ketoconazole 20 mg/ml topical cream (1 source) Azole Antifungal Ketoconazole 2 % External Cream APPLY SPARINGLY TO AFFECTED AREA(S) ONCE DAILY Quantity: 0 Refills: 0 Ordered: 06-Jun-2023 DO Active Lavela WS 1265 80 MG Oral Capsule (3 sources) Lavela WS 1265 8 0 MG Oral Capsule twice daily as needed Quantity: 0 Refills: 0 Ordered: 31-May-2022 DO Active Teaq-Llxv-IY ([facility]) (8 sources) Start: 12-01-2021 End: 07-25-2022 Lftm-Ltbl-SI ([facility]) Take 1 capsule, 2 times daily with 4 oz or more of water. 0 12/01/2021 07/25/2022 Discontinued Start: 12-01-2021 Hhox-Wsuy-SZ ( [facility]) Take 1 capsule, [...] 0 Ordered: 31-May-2022 DO Active Neuromag ( [facility]ocketOn ) 90 ct (18 sources) Start: 07-08-20 Neuromag ( [facility]ocketOn ) 90 ct Take 3 capsules per day or as directed by a healthcare professional. 0 07/08/2020 Active Comment on above: Take 3 capsules per day or as directed by a healthcare professional. OmegaGenics EPA-DHA 2400 (High Concentrate EPA/DHA liquid) ([employer]) (18 sources) Start: 07-08-20 20 OmegaGenics EPA-DHA [...] capsule daily with a meal. UT Synergy (RocketOn) antibacterial (18 sources) Star t: 06-11 0 20 take 1 capsule by mouth twice daily UT Synergy (RocketOn) antibacterial Take 1 capsule by mouth twice [...] vascular disease; Translations: [Atherosclerotic heart disease of [place] coronary artery without angina pectoris] Onset: 07-07-2020 [...] (2 sources) Drug therapy finding; Translations: [Other extermination supervisor (current) drug therapy] Episodic Other aftercare (1 source) long term care social worker (current) use of aspirin; Translations: [WASTE DUSTER CURRENT USE OF ASPIRIN] Onset: 11-07-2022 Episodic Other aftercare (1 source) Other extermination supervisor (current) drug therapy; Translations: [OTH ALF CURRENT DRUG THERAPY] Onset: 11-07-2022 Episodic Other [...] Facility US.doppler Carotid arteries - bilateralon 08-25-2023 [facility] [address], [address], [place] [address] Vascular Lab Report [facility] US CAROTID ARTERY DUPLEX BILATERAL Patient Name: ANN MARIE HILL Reading Physician: [id number] Miranda Tinoco MD, [facility] Study Date: 08/21/2023 Ordering Provider: [id number] MARY ANNE CASTLEEdda MRN/PID: [id number] Fellow: Technologist: Irasema Dooley RD, T Date of /Age: 3 1940 years Technologist 2: Gender: F Admission Status: Outpatient Location Performed: [facility] Diagnosis/ICD: Occlusion 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; Essential primary hypertension-I10 Indication: Hyperlipidemia, Dizziness, Dementia CPT Codes: 39378 Cerebrovascular Carotid Duplex scan complete CONCLUSIONS: Right [...] cm/s Right Left ICA/CCA Ratio 1.1 0.6 [id number] Miranda Tinoco MD, [facility] Final Miranda Tran M D - 08/25/[address], [address] [place] [address] Vascular Lab Report VASC US CAROTID ARTERY DUPLEX BILATERAL Patient Name: ANN MARIEHernandez HILL Kasie Physician: [id number] Miranda Tinoco MD, [facility] Study Date: 08/21/2023 Ordering Provider: [id number] MARY ANNE SNOW MRN/PID: [id number] Fellow: Technologist: Irasema Dooley [facility], T Date of /Age: 3 1940 years Technologist 2: Gender: F Admission Status: Outpatient Location Performed: [facility] Diagnosis/ICD: Occlusion 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; Essential primary hypertension-I10 Indication: Hyperlipidemia, Dizziness, Dementia CPT Codes: 02575 Cerebrovascular Carotid Duplex scan complete CONCLUSIONS: Right [...] cm/s Right Left ICA/CCA Ratio 1.1 0.6 [id number] Miranda Tinoco MD, FACC Final [facility] Work Phone: US.doppler Carotid arteries - bilateralOrdered By: Miranda Tinoco on 08-25-2023 [facility] Work Phone: US.doppler Carotid arteries - bilateralon 08-21-2023 Radiology Study observation (narrative) [facility] Work Phone: C Urineon 07-21-2023 Bacteria identified [...] Locations R1: This test was performed at: [facility], [address] [place] [address], [address]- , [place], Normal [facility] Comment on above: Performed By: #### 2 [id number] #### [facility] [address] [place] [address] URINALYSISOrdered By: Robel Williamson on 07-19-2023 Bacteria [...] Interpretation Code Negative [facility] UA Auto SS [place].plasma/Lithiu m.RBC (Bld) [Mass ratio] 0-3 /HPF Normal [...] [facility] UA Auto SS Urobilinogen Qn (U) 0.4149189 {Ham'U}/dL Normal 0.0 - 1.0 EU/dL [facility] UA Auto SS WBC Auto Ql (U) 3+ *ABN* (07/19/23 3:17 PM) Invalid Interpretation Code Negative [facility] UA Auto SS WBC casts LM.LPF (Urine sed) [#/Area] 0-3 (07/19/23 3:17 PM) Normal [facility] UA Auto SS WBC LM.HPF (Urine sed) [#/Area] /[HPF] Invalid Interpretation Code 0-5/HPF [facility] UA Auto SS Urinalysison 07-19-2023 Bacteria LM Ql (Urine sed) 3+ /HPF Abnormal Trace [facility] Comment on above: Performed By: #### 1 [id number] #### [facility] [address] [place] [address] Bilirubin Ql (U) Negative Normal Negative [facility] Comment on above: Performed By: #### 1 [id number] #### [facility] [address] [place] [address] Clarity (U) CLOUDY Abnormal Clear [facility] Comment on above: Performed By: #### 1 [id number] #### [facility] [address] [place] [address] Color (U) DARK YELLO Abnormal Yellow [facility] Comment on above: Performed By: #### 1 [id number] #### [facility] [address] [place] [address] Epithelial cells.squamous LM.HPF (Urine sed) [#/Area] 0-2 Normal 0-2 [facility] Comment on above: Performed By: #### 1 [id number] #### [facility] [address] [place] [address] Glucose Test strip (U) [Mass/Vol] Negative Normal Negative [facility] Comment on above: Performed By: #### 1 [id number] #### [facility] [address] [place] [address] Hemoglobin Ql (U) Negative Normal Negative [facility] Comment on above: Performed By: #### 1 [id number] #### [facility] [address] [place] [address] Ketones (U) [Mass/Vol] TRACE Abnormal Negative [facility] Comment on above: Performed By: #### 1 [id number] #### [facility] [address] [place] [address] [place].plasma/Lithiu m.RBC (Bld) [Mass ratio] 0-3 Normal 0-3 [facility] Comment on above: Performed By: #### 1 [id number] #### [facility] [address] [place] [address] Nitrite Ql (U) Negative Normal Negative [facility] Comment on above: Performed By: #### 1 [id number] #### [facility] [address] [place] [address] pH (U) 5.5 [pH] Invalid Interpretation Code 5.0-9.0 [facility] Comment on above: Performed By: #### 1 [id number] #### [facility] [address] [place] [address] Protein (U) [Mass/Vol] 1+ Abnormal Negative [facility] Comment on above: Performed By: #### 1 [id number] #### [facility] [address] [place] [address] Specific gravity (U) [Rel density] 1.025 Invalid Interpretation Code 1.005-1.030 [facility] Comment on above: Performed By: #### 1 [id number] #### [facility] [address] [place] [address] Type of Urine collection method Clean Catch Normal [facility] Comment on above: Performed By: #### 1 [id number] #### [facility] [address] [place] [address] Urobilinogen Qn (U) 0.2 {Ham'U}/dL Normal 0.0-1.0 [facility] Comment on above: Performed By: #### 1 [id number] #### [facility] [address] [place] [address] WBC Auto Ql (U) 3+ Abnormal Negative [facility] Comment on above: Performed By: #### 1 [id number] #### [facility] [address] [place] [address] WBC casts LM.LPF (Urine sed) [#/Area] 0-3 Normal [facility] Comment on above: Performed By: #### 1 [id number] #### [facility] [address] [place] [address] WBC LM.HPF (Urine sed) [#/Area] /[HPF] Abnormal 0-5 [facility] Comment on above: Performed By: #### 1 [id number] #### [facility] [address] [place] [address] Office Visit (Cardiology)on 06-06-2023 Follow-up visit Diagnoses/Problems [...] Status:Hold For - Scheduling,Retrospect chema Authorization; Requested for:[id number]; Laterality : Bilateral Essential hypertension Renew: Carvedilol 12.5 MG Oral Tablet; TAKE 1 TABLET TWICE DAILY Overweight with body mass index (BMI) of 27 to 27.9 in adult Healthy Weight Tips; Status:Complete - Retrospective Authorization; Done: [id number] Some eating tips that can help you lose weight.; Status:Complete - Retrospective Authorization; Done: [id number] SocHx: Never a smoker Tobacco Use Screening; Status:Complete; Done: [id number] Patient Instructions Please bring all medicines, vitamins, [...] as needed Neuro Rudolph TABSTAKE DIRECTED. Pristiq QO68rek daily Rosuvastatin Calcium 40 MG Oral TabletTAKE [...] no fr (more content not included)... Normal [employer] Tobacco Screening.on 023 Adult depression screening assessment No [facility] [employer] 250 DO Work Phone: Fall risk assessment a) No falls within the last year [facility] [employer] 250 DO Work Phone: Tobacco use status [facility] b) No [facility] [employer] 250 DO Work Phone: CNOVon 05-19-2023 CNOV Office Visit (MEDN ) ANN MARIE HILL ([id number]) 1940 F Date Time Provider Department 05/19/23 3:30 PM [facility] your visit today, we recorded [...] OmegaGenics EPA-DHA 2400 (High Concentrate EPA/DHA liquid) ([facility]) Take one teaspoon (5 ml) 1 times daily with food UT Synergy ([facility]) antibacterial Take 1 capsule by mouth twice daily. Brain Misael Capsules ([facility]) Take 2 tablets by mouth w MEALS. Neuromag ( [facility] ) 90 ct Take 3 capsules per [...] diet to mix and match - cancelled electrocardiogram technician visit due to not having NutrEval [...] following ket (more content not included)... Normal [facility] ED Note-Physicianon 05-15-20 ED Note-Physician [id number] 1.00CD:127 Normal [facility] Screenson 04-26-2023 Screens [id number] .00CD:127 Normal [facility] Ambulatory Visit Summaryon 0 04-25-2023 Ambulatory Visit [...] mg/g Vag Crm) omega-3 polyunsaturated fatty acids (Shannon-3 350 mg oral capsule) ubiquinone (Co Q-10) [...] When: Where: [address] [place] [address] Medications What How Much When Instructions Unchanged [...] or concerns Unchanged omega-3 polyunsaturated fatty acids (Shannon-3 350 mg oral capsule) By Mouth Every [...] blockage i (more content not included)... Normal [facility] Patient Educationon 04-25-20 Patient Education Obstetrics and [...] these instructions at home: Medicines ? Take sldy-qod-ydegfup and prescription medicines only as told by [...] provider. Document Revised: 05/07/2021 Document Reviewed: 05/07/2021 [employer] Patient Education ? 2022 [employer]. Normal [facility] Urology Office/Clinic Noteon 04-25-2023 Urology Office/Clinic Note [...] 2+ leuks. Asymptomatic. No Tx. +C&S 02/27/23 [place] [facility] *Tx'd w/5 day Macrobid therapy. Increased [...] provider and she was started on supplements. ELECTRON[employer]ER [employer] LEADER Dr Ballesteros, started her on Estradiol 1gm [...] Contact Information DANIEL BOYER, ELLEN Bell, URL [address] [place] [address] Additional Instructions: Patient Education Urinary Tract Infection, Adult, Uqpk-ss-Lmjv Documentation recorded by the scribchris Valdez accurately [...] Tab, 10 mg= 1 tab(s), Oral, Daily Shannon-3 350 mg oral capsule, Oral, Daily Pristiq, [...] Status Comments (more content not included)... Normal [facility] Comment on above: Result Comment: Elec tronically [...] mg/g Vag Crm) omega-3 polyunsaturated fatty acids (Shannon-3 350 mg oral capsule) ubiquinone (Co Q-10) valsartan (valsartan 80 mg Tab) vitamin E Procedures Performed Cystourethroscopy with dilation of urethral stricture (02/12/2019). What to do next Scheduled Follow-Up Appointments Monday 2:15 PM EDT With: GENO WATTS, Kunal Heller Where: [facility] 02-22-2023 [facility] Telephone ([employer] [facility]) ANN MARIE HILL ([id number]) 1940 F Date Time Provider Department 02/22/23 [facility] MONTERO [employer] During your visit today, we recorded the following information about you: Audrey Singh 02/22/2023 12:21 PM Addendum Patient's spouse, Orestes called (confirmed Ann Marie's ), Ann Marie was seen by Dr. Christiana Montero. They received a test kit from [facility] in the mail and not sure what it is? Does she need to do this and what is it for. Dr. Montero did not mention anything at her last visit with him. He is asking if Concepcion can call Orestes back (he stated he is POA) on his cell ph# [phone] OR [phone]. Audrey Montero MD 02/22/2023 5:54 PM Signed [...] test can be done at the Main [place] [facility] lab? He prefer not to have if done at home. Needs to know what the test is for and if its needs be done? He is asking for explanation and call back. Please call spouse on cell phone. salesperson burial needs: Orestes Phone number: [phone] Last office visit: 02/03/2023 Carine Coelho LPN [...] Fully Assessed Reason for Visit: Patient Question [6037] Prescriptions as of 02/23/2023 - PhytoMulti 60s capsules ([facility]) Take 2 capsules daily, with meals. - Glycine (Pure Encapsulations) Take 1 capsule 3 times daily in divided doses between meals. (1 wnxrwoo=591ap) - B-Complex Plus ([facility]capsulations) Take 1 capsule by mouth daily with food. - Glutathione ([facility]) Use 20 pumps daily (1000mg) divided doses [...] OmegaGenics EPA-DHA 2400 (High Concentrate EPA/DHA liquid) ([facility]) Take one teaspoon (5 ml) 1 times daily with food - UT Synergy ([facility]) antibacterial Take 1 capsule by mouth twice daily. - Neuromag ( [facility] ) 90 ct Take 3 capsules per [...] Encounter Status:Closed by MARTA COELHO on 02/23/23 [facility] Michelle 02-17-2023 [place] Telephone ([facility]) ANN MARIE HILL ([id number]) 1940 F Date Time Provider Department 02/17/23 KASEY RAE During your visit today, we recorded the following information about you: Evelyn Flaherty LPN 02/17/2023 8:19 AM Signed NUTRITION RESOURCES SENT VIA [employer]. Evelyn Flaherty LPN February 17, 2023 8:17 [...] daily in divided doses between meals. (1 nzhafte=349te) - B-Complex Plus (Pure [employer]capsulations) Take 1 capsule by mouth daily with food. - Glutathione ([facility]) Use 20 pumps daily (1000mg) divided doses [...] OmegaGenics EPA-DHA 2400 (High Concentrate EPA/DHA liquid) ([facility]) Take one teaspoon (5 ml) 1 times daily with food - UT Synergy ([facility]ocketOn) antibacterial Take 1 capsule by mouth twice daily. - Neuromag ( [facility] ) 90 ct Take 3 capsules per [...] Encounter Status:Closed by EVELYN FLAHERTY on 02/17/23 [facility] CNOVdanisha 02-03-2023 CNOV Office Visit (MEDN ) ANN MARIE HILL ([id number]) 1940 F Date Time Provider Department 02/03/23 [...] OmegaGenics EPA-DHA 2400 (High Concentrate EPA/DHA liquid) ([facility]) Take one teaspoon (5 ml) 1 times daily with food [facility] Synergy ([facility]On) antibacterial Take 1 capsule by mouth twice daily. Brain Misael Capsules ([facility]) Take 2 tablets by mouth w MEALS. Neuromag ( [facility] ) 90 ct Take 3 capsules per [...] diet to mix and match - cancelled electrocardiogram technician visit due to not having NutrEval [...] Bowel Habits (more content not included)... Normal [facility] CNOVon 10-31-2022 CNOV Office Visit ([facility] ) ANN MARIE HILL ([id number]) 1940 F Date Time Provider Department 10/31/22 1:00 PM CHRISTIANA MONTERO [facility] During your visit today, we recorded [...] OmegaGenics EPA-DHA 2400 (High Concentrate EPA/DHA liquid) ([facility]) Take one teaspoon (5 ml) 1 times daily with food UT Synergy (RocketOn) antibacterial Take 1 capsule by mouth twice daily. Brain Misael Capsules ([facility]) Take 2 tablets by mouth w MEALS. Neuromag ( [facility]ocketOn ) 90 ct Take 3 capsules per [...] diet to mix and match - cancelled electrocardiogram technician visit due to not having NutrEval [...] this. F (more content not included)... Normal [facility] T4 Free SerPl-mCncon 023 Free T4 [Mass/Vol] 1.3 ng/dL Normal 0.9-1.7 [facility] Comment on above: Order Comment: Speci men Type: BLOOD SPECIMENOrdering Facility: [facility] Address: [place] [id number] Performed By: #### 3 024-7, 6-3 ####[facility] [id number] [address] [place] TSH SerPl-aCncon 10-31-2022 TSH Qn 1.570 m[IU]/L Normal 0.270-4.200 [facility] Comment on above: Order Comment: Speci men Type: BLOOD SPECIMENOrdering Facility: [facility] Address: [place] [id number] Performed By: #### 3 024-7, 3016-3 ####[facility] LAB[facility] [id number] [place] [id number] [place] CNPNon 10-28-2022 CNPN Telephone ([facility]) ANN MARIE HILL ([id number]) 1940 F Date Time Provider Department 10/28/22 [...] Fully Assessed Reason for Visit: Patient Question [2157] Prescriptions as of 10/28/2022 - desvenlafaxine ER [...] OmegaGenics EPA-DHA 2400 (High Concentrate EPA/DHA liquid) ([facility]) Take one teaspoon (5 ml) 1 times daily with food - UT Synergy (RocketOn) antibacterial Take 1 capsule by mouth twice daily. - Brain Misael Capsules ([facility]On) Take 2 tablets by mouth w MEALS. - Neuromag ( [facility] ) 90 ct Take 3 capsules per [...] Encounter Status:Closed by EVELYN FLAHERTY on 10/28/22 [facility] Patient Education 08-08-20 Patient Education Obstetrics and [...] this condition includes: ? Antibiotic medicine. ? Rakh-nof-ogmaunm medicines to treat discomfort. ? Drinking enough [...] these instructions at home: Medicines ? Take ulcx-nmo-vkivqob and prescription medicines only as told by [...] This in (more content not included)... Normal [facility] Urology Office/Clinic Noteon 08-08-2022 Urology Office/Clinic Note [...] 04/08/2023 EDT [facility] [address] [place] [phone] Additional Instructions: Patient Education Urinary Tract Infection, [...] Tab, 10 mg= 1 tab(s), Oral, Daily Shannon-3 350 mg oral capsule, Oral, Daily Pristiq, [...] inactivated - Not Given Patient Refuses Normal [facility] Comment on above: Result Comment: Elec tronically Signed By: Kunal LORA MD\.br\Date and Time Signed: 08/08/22 16:21 EDT\.br\Electronically Co-Signed By: Alisa Caban MA\.br\Date and Time Co-Signed: 08/08/22 16:17 EDT CNOVon 07-25-2022 CNOV Office Visit ([facility] ) ANN MARIE HILL ([id number]) 1940 F Date Time Provider Department 07/25/22 [...] boullardi 2 hrs away from nystatin/candibactin/ diflucan. Nobj-Ynlw-AW (Em[employer]) Take 1 capsule, 2 times daily with 4 oz or more of water. Glutathione ([facility]) - Liver support/detox Use 8 pumps daily , divided doses through out the day. (2 pumps = 100 mg Glutathione). Work up slowly to the higher dose. B-Complex Plus (Pure Encapsulations) Take 2 capsules by mouth daily with food. Multi t/d 60 ct. (Pure Encapsulations) - multivitamin Take 1 capsule by mouth twice daily with meals. OmegaGenics EPA-DHA 2400 (High Concentrate EPA/DHA liquid) ([employer]) Take one teaspoon (5 ml) 1 times daily with food [employer] Synergy Sellfy) antibacterial Take 1 capsule by mouth twice daily. Brain Misael Capsules (RocketOn) Take 2 tablets by mouth w MEALS. Neuromag ( RocketOn ) 90 ct Take 3 capsules per [...] is conf (more content not included)... Normal [facility] MG MAMM SCREEN JOSH W CADon 0 06-17-2022 MG MAMM SCREEN JOSH W CAD Patient: ANN MARIE HILL Exam Date: 06/17/2022 : 1940 Gender:F Ordering : DR MENG PRATER . Admission #: [id number] Family : Order #: [id number] CLICK HERE TO VIEW EXAM RADIOLOGY REPORT [...] Treatments None Family Cancers None LOCATION: [facility] BREAST COMPOSITION: Scattered areas fibroglandular density. FINDINGS: [...] M.D. on 06/17/2022 at 15:47 Normal [facility] OCC BLD IMMUNOASSAYon 2021 OCCULT BLOOD Negative Normal NEGATIVE [facility] Comment on above: Performed By: #### O CHANDU #### [facility] [address] [address] [address] Hu Carlos INSULINon 06-04-2022 Insulin 11.2 uIU/mL Normal 2.6-24.9 [facility] Comment on above: Performed By: #### I NSULIN ####[facility] [address] [address]Dr. Hu Carlos T4, T3U, FTI LABCORPon 06-04 Free Thyroxine Index 2.3 Normal 1.2-4.9 [facility] Comment on above: Performed By: #### T HYLC #### [facility] [address] [address] [address] Hu Carlos T3 Uptake 26 % Normal 24-39 [facility] Comment on above: Performed By: #### T HYLC #### [facility] [address] [address] [address] Hu Carlos T4 [Mass/Vol] 8.8 ug/dL Normal 4.5-12.0 [facility] Comment on above: Performed By: #### T HYLC #### [facility] [address] [address] [address] Hu Carlos VIT D 25-OH LABCORPon 2021 Vitamin D, 25-Hydroxy 60.5 ng/mL Normal 30.0-100.0 [facility] Comment on above: Result Comment: Nicolette min D deficiency has been defined by the [place] [employer] and an Endocrine Society practice guideline as a level of serum 25-OH vitamin D less than 20 ng/mL (1,2). The Endocrine Society went on to further define vitamin D insufficiency as a level between 21 and 29 ng/mL (2). 1. IOM ([place] [employer]). 2010. Dietary reference intakes for calcium and D. [place]: The National Academies Press. 2. Suzette MF, Julian [place], Fady CLEMONS, et al. Evaluation, treatment, and prevention of vitamin D deficiency: an Endocrine Society clinical practice guideline. JCEM. 2010; 96(7):1911-30. Performed By: #### V ITADLC ####[facility] [address] [place], [place] [address]FgDr. Hu Carlos CBC AUTO DIFFon 06-03-2022 BASO # 0.0 103/ul Normal 0.0-0.1 [facility] Comment on above: Performed By: #### C BC #### [facility] [address] [address] [address] Hu Carlos Basophils/100 WBC (Bld) 0.6 % Normal 0.2-2.0 [facility] Comment on above: Performed By: #### C BC #### [facility] [address] [place] [address] Dr. Hu Carlos EO # 0.2 103/ul Normal 0.0-0.7 [facility] Comment on above: Performed By: #### C BC #### [facility] [address] [place] [address] Dr. Hu Carlos Eosinophils/100 WBC (Bld) 3.2 % Normal 0.9-7.0 [facility] Comment on above: Performed By: #### C BC #### [facility] [address] [place] [address] Dr. Hu Carlos Erythrocyte distribution width (RBC) [Ratio] 12.6 % Normal 11.0-15.0 [facility] Comment on above: Performed By: #### C BC #### [facility] [address] [place] [address] Dr. Hu Carlos Hematocrit (Bld) [Volume fraction] 40.0 % Normal 36.0-48.0 [facility] Comment on above: Performed By: #### C BC #### [facility] [address] [place] [address] Dr. uH Carlos Hemoglobin (Bld) [Mass/Vol] 12.8 g/dL Normal 12.0-16.0 [facility] Comment on above: Performed By: #### C BC #### [facility] [address] [place] [address] Dr. Hu Carlos IG # 0.01 10e3/ul Normal 0.00-0.03 [facility] Comment on above: Performed By: #### C BC #### [facility] [address] [place] [address] Dr. Hu Carlos IG % 0.2 % Normal 0.0-0.5 [facility] Comment on above: Performed By: #### C BC #### [facility] [address] [place] [address] Dr. Hu Carlos LYMPH # 1.2 103/ul Normal 1.2-3.8 [facility] Comment on above: Performed By: #### C BC #### [facility] [address] [place] [address] Dr. Hu Carlos Lymphocytes/100 WBC (Bld) 22.7 % Normal 20.5-60.0 [facility] Comment on above: Performed By: #### C BC #### [facility] [address] [place] [address] Dr. Hu Carlos MANUAL DIFF REQ NO Normal [facility] Comment on above: Performed By: #### C BC #### [facility] [address] [place] [address] Dr. Hu Carlos MCH (RBC) [Entitic mass] 31.8 pg Normal 26.7-34.0 [facility] Comment on above: Performed By: #### C BC #### [facility] [address] [place] [address] Dr. Hu Carlos MCHC (RBC) [Mass/Vol] 32.0 g/dL Normal 29.9-35.2 [facility] Comment on above: Performed By: #### C BC #### [facility] [address] [place] [address] Dr. Hu Carlos MCV (RBC) [Entitic vol] 99.3 fL Critically high 81.0-99.0 [facility] Comment on above: Performed By: #### C BC #### [facility] [address] [place] [address] Dr. Hu Carlos MONO # 0.5 103/ul Normal 0.3-0.8 [facility] Comment on above: Performed By: #### C BC #### [facility] [address] [address] [address] Hu Carlos Monocytes/100 WBC (Bld) 8.8 % Normal 1.7-12.0 [facility] Comment on above: Performed By: #### C BC #### [facility] [address] [address] [address] Hu Carlos NEUT # 3.4 103/ul Normal 1.4-6.5 [facility] Comment on above: Performed By: #### C BC #### [facility] [address] [address] [address] Hu Carlos Neutrophils/100 WBC (Bld) 64.5 % Normal 43.0-75.0 [facility] Comment on above: Performed By: #### C BC #### [facility] [address] [address] [address] Hu Carlos Platelet mean volume (Bld) [Entitic vol] 8.8 fL Critically low 9.5-13.5 [facility] Comment on above: Performed By: #### C BC #### [facility] [address] [address] [address] Hu Carlos PLT 278 103/ul Normal 150-450 [facility] Comment on above: Performed By: #### C BC #### [facility] [address] [address] [address] Hu Carlos RBC 4.03 106/ul Critically low 4.20-5.40 [facility] Comment on above: Performed By: #### C BC #### [facility] [address] [address] [address] Hu Carlos WBC 5.3 103/ul Normal 4.0-11.0 [facility] Comment on above: Performed By: #### C BC #### [facility] [address] [place] [address] Dr. Hu Carlos GLYCOHEMOGLOBIN A1Con 2021 ADA RECOMMENDATION SEE BELOW Normal [facility] Comment on above: Result Comment: ADA RECOMMENDED LIMIT 4.0 - 6.0 ADA THERAPEUTIC TARGET < 7.0 ACTION SUGGESTED > 7.0 Performed By: #### A 1C ####[facility] [address] [address]Dr. Hu Calros Glucose [Mass/Vol] 123 mg/dL Normal [facility] Comment on above: Performed By: #### A 1C ####[facility] [address] [id number]. Hu Carlos HbA1c (Bld) [Mass fraction] 5.9 % Normal 4.5-6.2 [facility] Comment on above: Performed By: #### A 1C ####[facility] [address] [address]Dr. Hu aCrlos IRONon 06-03-2022 Iron [Mass/Vol] 68.0 ug/dL Normal 50.0-170.0 [facility] Comment on above: Performed By: #### I CANDY #### [facility] [address] [address] [address] Hu Carlos LIPID PROFILEon 06-03-2022 CHOL-HDL RATIO NORM SEE BELOW Normal [facility] Comment on above: Result Comment: 3.3 - 4.4 LOW RISK 4.4 - 7.1 AVERAGE RISK 7.1 - 11.0 MODERATE RISK >11.0 HIGH RISK Performed By: #### T SH, LIPID, CMP #### [facility] [address] [address] [address] Hu Carlos Cholesterol [Mass/Vol] 155 mg/dL Normal <=200 [facility] Comment on above: Performed By: #### T SH, LIPID, CMP #### [facility] [address] [address] [address] Hu Carlos Cholesterol in HDL [Mass/Vol] 70 mg/dL Critically high 40-60 [facility] Comment on above: Performed By: #### T SH, LIPID, CMP #### [facility] [address] [address] [address] Hu Carlos Cholesterol in LDL [Mass/Vol] 73.2 mg/dL Normal [facility] Comment on above: Performed By: #### T SH, LIPID, CMP #### [facility] [address] [address] [address] Hu Carlos Cholesterol.total/Cho lesterol in HDL [Mass ratio] 2.2 {ratio} Normal [facility] Comment on above: Performed By: #### T KISHOR, LIPID, CMP #### [facility] [address] [address] [address] Hu Carlos HDL NORMAL > or = 60 mg/dl - LO W CARDIOVASCULAR RISK <40 mg/dl - HIGH CARDIOVASCULAR RISK Normal [facility] Comment on above: Performed By: #### T KISHOR, LIPID, CMP #### [facility] [address] [address] [address] Hu Carlos LDL CALC NORMAL SEE BELOW Normal [facility] Comment on above: Result Comment: <100 mg/dl OPTIMAL 100 - 129 mg/dl NEAR OR ABOVE OPTIMAL 130 - 159 mg/dl BORDERLINE HIGH 160 - 189 mg/dl HIGH >190 mg/dl VERY HIGH Performed By: #### T KISHOR, LIPID, CMP #### [facility] [address] [place] [address] Dr. Hu Carlos Triglyceride [Mass/Vol] 59 mg/dL Normal <=150 [facility] Comment on above: Performed By: #### T KISHOR, LIPID, CMP #### [facility] [address] [place] [address] Dr. Hu Carlos VLDL CALC 11.8 mg/dL Normal [facility] Comment on above: Performed By: #### T KISHOR, LIPID, CMP #### [facility] [address] [address] [address] Hu Carlos PROF 14(COMP METB)on 022 Albumin [Mass/Vol] 3.5 g/dL Normal 3.4-5.0 [facility] Comment on above: Performed By: #### T KISHOR, LIPID, CMP #### [facility] [address] [place] [address] Dr. Hu Carlos Albumin/Globulin [Mass ratio] 1.0 {ratio} Normal [facility] Comment on above: Performed By: #### T SH, LIPID, CMP #### [facility] [address] [address] [address] Hu Carlos ALP [Catalytic activity/Vol] 73 U/L Normal 46-116 [facility] Comment on above: Performed By: #### T SH, LIPID, CMP #### [facility] [address] [address] [address] Hu Carlos ALT [Catalytic activity/Vol] 24 U/L Normal 14-59 [facility] Comment on above: Performed By: #### T SH, LIPID, CMP #### [facility] [address] [address] [address] Hu Carlos Anion gap [Moles/Vol] 11.1 mmol/L Normal [facility] Comment on above: Performed By: #### T SH, LIPID, CMP #### [facility] [address] [address] [address] Hu Carlos AST [Catalytic activity/Vol] 15 U/L Normal 15-37 [facility] Comment on above: Performed By: #### T SH, LIPID, CMP #### [facility] [address] [address] [address] Hu Carlos Bilirubin [Mass/Vol] 0.4 mg/dL Normal 0.2-1.0 [facility] Comment on above: Performed By: #### T SH, LIPID, CMP #### [facility] [address] [address] [address] Hu Carlos Calcium [Mass/Vol] 8.9 mg/dL Normal 8.5-10.1 [facility] Comment on above: Performed By: #### T SH, LIPID, CMP #### [facility] [address] [address] [address] Hu Carlos Chloride [Moles/Vol] 103 mmol/L Normal 98-107 [facility] Comment on above: Performed By: #### T SH, LIPID, CMP #### [facility] [address] [address] [address] Hu Carlos CO2 [Moles/Vol] 30.9 mmol/L Normal 21.0-32.0 [facility] Comment on above: Performed By: #### T SH, LIPID, CMP #### [facility] [address] [address] [address] Hu Carlos Creatinine [Mass/Vol] 0.81 mg/dL Normal 0.55-1.02 [facility] Comment on above: Performed By: #### T SH, LIPID, CMP #### [facility] [address] [address] [address] Hu Carlos EGFR-AF TUVALUAN >60 Normal >=60 [facility] Comment on above: Performed By: #### T SH, LIPID, CMP #### [facility] [address] [address] [address] Hu Carlos EGFR-NON AF TUVALUAN >60 Normal >=60 [facility] Comment on above: Performed By: #### T SH, LIPID, CMP #### [facility] [address] [address] [address] Hu Carlos Globulin (S) [Mass/Vol] 3.6 g/dL Normal [facility] Comment on above: Performed By: #### T SH, LIPID, CMP #### [facility] [address] [address] [address] Hu Carlos Glucose [Mass/Vol] 100 mg/dL Normal 74-106 [facility] Comment on above: Performed By: #### T SH, LIPID, CMP #### [facility] [address] [address] [address] Hu Carlos Potassium [Moles/Vol] 4.0 mmol/L Normal 3.5-5.1 [facility] Comment on above: Performed By: #### T SH, LIPID, CMP #### [facility] [address] [address] [address] Hu Carlos Protein [Mass/Vol] 7.1 g/dL Normal 6.4-8.2 [facility] Comment on above: Performed By: #### T SH, LIPID, CMP #### [facility] [address] [address] [address] Hu Carlos Sodium [Moles/Vol] 141 mmol/L Normal 136-145 [facility] Comment on above: Performed By: #### T SH, LIPID, CMP #### [facility] [address] [address] [address] Hu Carlos Urea nitrogen [Mass/Vol] 21.0 mg/dL Critically high 7.0-18.0 [facility] Comment on above: Performed By: #### T SH, LIPID, CMP #### [facility] [address] [address] [address] Hu Carlos Urea nitrogen/Creatinine [Mass ratio] 25.9 mg/mg Normal [facility] Comment on above: Performed By: #### T SH, LIPID, CMP #### [facility] [address] [address] [address] Hu Carlos TSHon 06-03-2022 TSH 1.582 uIU/mL Normal 0.358-3.740 [facility] Comment on above: Performed By: #### T SH, LIPID, CMP #### [facility] [address] [address] [address] Hu Carlos PHQ-2 VITALSon 05-31-2022 Fall risk assessment a) No falls within the last year [facility] [address] DO Work Phone: Tobacco use status CPHS b) No [facility] DO Work Phone: PHQ-2 VITALS Yes [facility] 250 DO Work Phone: Tobacco Screening.on 021 Fall risk assessment a) No falls within the last year [facility] 250 DO Work Phone: Tobacco use status CPHS b) No [facility] Work Phone: [facility] LAB Carotid Artery Dupl ex Ultrasounon 06-23-2020 [facility] Carotid Artery Duplex Ultrasoun [facility] [address] [place] [address], [address] [place] [address] Vascular Lab Report Carotid Artery Duplex Ultrasound Patient Name: ANN MARIE HILL Reading Physician: [id number] Miranda Tinoco MD, FACC Study Date: 06/23/2020 Referring Physician: [id number] Mary Anne Snow MD MRN/PID: [id number] PCP: Meng Prater Accession/Order#: [id number] Report to: Date of : 1940 Technologist: Irasema Dooley RD, RVT Gender: F Technologist 2: Admission Status: Outpatient Location Performed: 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 Indication: HTN, Hyperlipidemia, Mild Dementia, Overweight, PVC's Procedure/CPT: 90440 Cerebrovascular Carotid Duplex scan complete-[id number] CONCLUSIONS: Right Carotid: Findings are consistent with [...] cm/s Right Left ICA/CCA Ratio 1.0 0.9 [id number] Miranda Tinoco MD, FACC Final Normal [facility] CARDIAC STRESS/REST YOSHI Dooley 09-11-2019 [facility] CARDIAC STRESS/REST INJECTION Patient Name: ANN MARIE HILL STUDY: MYOCARDIAL PERFUSION STRESS TEST WITH LEXISCAN Performing facility: [facility], [address] [place] [address], [address], [place] [address] [facility] Provider: Mary Anne Snow MD PCP: Dr. Robel PRATER Supervising provider: Yin Taylor MD, [facility] INDICATION: CP HISTORY: Gender: F; Age: 78 y/o ; Height: 154.94 cm; Weight: 77.2914847 kg. High Cholesterol; HTN PVCs CP DEMENTIA Denies smoking. COMPARISON: No comparison. ACCESSION NUMBER(S): [id number]; [id number]; [id number] ORDERING CLINICIAN: MARY ANNE SNOW TECHNIQUE: ONE [...] Electronically signed by: MARY ANNE SNOW MD [facility] Vital Signs Date Time Vital Sign Value Performing Clinician Facility 06-06-2023 13:36-0400 Body height 157.48 cm Meng M Hoy Work Phone: [facility] 250 DO Work Phone: 06-06-2023 13:36-0400 Body mass index (BMI) [Ratio] 27.98 kg/m2 Meng M Hoy Work Phone: [facility] 250 DO Work Phone: 06-06-2023 13:36-0400 Body surface area Derived from formula 1.71 m2 Meng M Hoy Work Phone: [facility] 250 DO Work Phone: 06-06-2023 13:36-0400 Body weight 69.4 kg Meng M Hoy Work Phone: [facility] 250 DO Work Phone: 06-06-2023 13:36-0400 Diastolic blood pressure 62 mm[Hg] Meng M Hoy Work Phone: [facility] 250 DO Work Phone: 06-06-2023 13:36-0400 Heart rate 64 /min Meng M Hoy Work Phone: [facility] 250 DO Work Phone: 06-06-2023 13:36-0400 Systolic blood pressure 100 mm[Hg] Meng M Hoy Work Phone: [facility] 250 DO Work Phone: 05-19-2023 15:41-0400 Body height 157.5 cm Christiana Montero MD Work Phone: [facility] 05-19-2023 15:41-0400 Body weight 70.94 kg Christiana Montero MD Work Phone: [facility] 05-19-2023 15:41-0400 Diastolic blood pressure 63 mm[Hg] Christiana Montero MD Work Phone: [facility] 05-19-2023 15:41-0400 Heart rate 76 /min Christiana Montero MD Work Phone: [facility] 05-19-2023 15:41-0400 Systolic blood pressure 124 mm[Hg] Christiana Montero MD Work Phone: [facility] 04-25-2023 11:12-0400 Blood Pressure Location ELLEN DANIEL [facility] 04-25-2023 11:12-0400 Diastolic blood pressure 80 mm[Hg] ELLEN DANIEL [facility] 04-25-2023 11:12-0400 Heart rate 72 /min ELLEN DANIEL [facility] 04-25-2023 11:12-0400 Respiratory rate 16 /min ELLEN DANIEL [facility] 04-25-2023 11:12-0400 Systolic blood pressure 130 mm[Hg] ELLEN DANIEL [facility] 02-03-2023 15:26-0400 Body height 157.5 cm Christiana Montero MD Work Phone: [facility] 02-03-2023 15:26-0400 Body weight 68.77 kg Christiana Montero MD Work Phone: [facility] 02-03-2023 15:26-0400 Diastolic blood pressure 59 mm[Hg] Christiana Montero MD Work Phone: [facility] 02-03-2023 15:26-0400 Heart rate 83 /min Christiana Montero MD Work Phone: [facility] 02-03-2023 15:26-0400 Systolic blood pressure 136 mm[Hg] Christiana Montero MD Work Phone: [facility] 10-31-2022 13:19-0500 Body height 157.5 cm Christiana Montero MD Work Phone: [facility] 10-31-2022 13:19-0500 Body temperature 97.81 [degF] Christiana Montero MD Work Phone: [facility] 10-31-2022 13:19-0500 Body weight 62.23 kg Christiana Montero MD Work Phone: [facility] 10-31-2022 13:19-0500 Diastolic blood pressure 68 mm[Hg] Christiana Montero MD Work Phone: [facility] 10-31-2022 13:19-0500 Heart rate 79 /min Christiana Montero MD Work Phone: [facility] 10-31-2022 13:19-0500 SaO2% (BldA) [Mass fraction] 97 % Christiana Montero MD Work Phone: [facility] 10-31-2022 13:19-0500 Systolic blood pressure 143 mm[Hg] Christiana Montero MD Work Phone: [facility] 08-08-2022 15:17-0400 Diastolic blood pressure 76 mm[Hg] Kunal LORA [facility] 08-08-2022 15:17-0400 Mean blood pressure 101 mm[Hg] Kuanl LORA [facility] 08-08-2022 15:17-0400 Systolic blood pressure 152 mm[Hg] Kunal LORA [facility] 07-25-2022 12:47-0400 Body height 157.5 cm Christiana Montero MD Work Phone: [facility] 07-25-2022 12:47-0400 Body temperature 98.01 [degF] Christiana Montero MD Work Phone: [facility] 07-25-2022 12:47-0400 Body weight 61.01 kg Christiana Montero MD Work Phone: [facility] 07-25-2022 12:47-0400 Diastolic blood pressure 62 mm[Hg] Christiana Montero MD Work Phone: [facility] 07-25-2022 12:47-0400 Heart rate 80 /min Christiana Montero MD Work Phone: [facility] 07-25-2022 12:47-0400 SaO2% (BldA) [Mass fraction] 98 % Christiana Montero MD Work Phone: [facility] 07-25-2022 12:47-0400 Systolic blood pressure 140 mm[Hg] Christiana Montero MD Work Phone: [facility] 05-31-2022 11:58-0400 Body height 157.48 cm Meng Paz Fitnety Work Phone: [facility] 250 DO Work Phone: 05-31-2022 11:58-0400 Body mass index (BMI) [Ratio] 23.59 kg/m2 Meng Paz Fitnety Work Phone: [facility] 250 DO Work Phone: 05-31-2022 11:58-0400 Body surface area Derived from formula 1.59 m2 Meng Jackson Hoy Work Phone: [facility] 250 DO Work Phone: 05-31-2022 11:58-0400 Body weight 58.51 kg Meng M Hoy Work Phone: [facility] 250 DO Work Phone: 05-31-2022 11:58-0400 Diastolic blood pressure 60 mm[Hg] Meng Paz [place] Work Phone: [facility] 250 DO Work Phone: 05-31-2022 11:58-0400 Heart rate 68 /min Meng Paz [place] Work Phone: [facility] 250 DO Work Phone: 05-31-2022 11:58-0400 Systolic blood pressure 102 mm[Hg] Meng Paz Hochuy Work Phone: [facility] DO Work Phone: 03-18-2022 12:59-0400 Body height 157.5 cm Evita Calderon MD Work Phone: [facility] 03-18-2022 12:59-0400 Body weight 55.34 kg Evita Calderon MD Work Phone: [facility] 03-18-2022 12:59-0400 Diastolic blood pressure 52 mm[Hg] Evita Calderon MD Work Phone: [facility] 03-18-2022 12:59-0400 Heart rate 70 /min Evita Calderon MD Work Phone: [facility] 03-18-2022 12:59-0400 Systolic blood pressure 107 mm[Hg] Evita Calderon MD Work Phone: [facility] 03-02-2022 10:32-0400 Body weight 56.61 kg Han Britton MD Work Phone: [facility] 03-02-2022 10:32-0400 Diastolic blood pressure 53 mm[Hg] Han Britton MD Work Phone: [facility] 03-02-2022 10:32-0400 Heart rate 75 /min Han Britton MD Work Phone: [facility] 03-02-2022 10:32-0400 Systolic blood pressure 115 mm[Hg] Han Britton MD Work Phone: [facility] 01-31-2022 14:14-0400 Blood Pressure Location Kunalsherrie LORA [facility] 01-31-2022 14:14-0400 Diastolic blood pressure 51 mm[Hg] Kunalsherrie LORA [facility] 01-31-2022 14:14-0400 Heart rate 66 /min Kunalsherrie LORA [facility] 01-31-2022 14:14-0400 Respiratory rate 16 /min Kunal LORA [facility] 01-31-2022 14:14-0400 Systolic blood pressure 96 mm[Hg] Kunal LORA [facility] 08-09-2021 13:50-0400 Body height 157.48 cm Meng Airsynergy Hoy Work Phone: [facility] 250 DO Work Phone: 08-09-2021 13:50-0400 Body mass index (BMI) [Ratio] 21.58 kg/m2 Meng Airsynergy Hoy Work Phone: [facility] 250 DO Work Phone: 08-09-2021 13:50-0400 Body surface area Derived from formula 1.53 m2 Meng Airsynergy Hoy Work Phone: [facility] 250 DO Work Phone: 08-09-2021 13:50-0400 Body weight 53.52 kg Meng M Hoy Work Phone: [facility] 250 DO Work Phone: 08-09-2021 13:50-0400 Diastolic blood pressure 60 mm[Hg] Meng M Hoy Work Phone: [facility] 250 DO Work Phone: 08-09-2021 13:50-0400 Heart rate 72 /min Meng M Hoy Work Phone: [facility] 250 DO Work Phone: 08-09-2021 13:50-0400 Systolic blood pressure 110 mm[Hg] Meng M Hoy Work Phone: [facility] 250 DO Work Phone: Encounters Encounter Date Encounter Type Care Provider Facility Start: 09-20-2023 End: 09-20-2023 ambulatory MAUREEN BALLESTEROS Not Available Start: 08-21-2023 End: 08-21-2023 Subsequent hospital visit by physician Judy Smith Echo/Vasc Room 2 [facility] Comment on above: Carotid stenosis, bi lateral; Benign hypertension Start: 07-19-2023 End: 07-20-2023 ambulatory ELLEN COOK Facility:[facility] Start: 07-19-2023 End: 07-19-2023 Lab Drop off ELLEN COOK [place] Start: 07-19-2023 End: 07-20-2023 ambulatory Leonor Phillips Facility:[facility] Start: 07-19-2023 End: 07-19-2023 Patient encounter procedure Leonor Phillips [facility] Start: 06-06-2023 Office outpatient vi sit 15 minutes Meng M Hoy Work Phone: [facility] 250 DO Work Phone: Start: 06-06-2023 ambulatory [...] m caregiver Christiana Montero MD Work Phone: [facility] Start: 04-26-2023 Rx Renewal Meng Williamy Work Phone: [facility] 250 DO Work Phone: Start: 04-25-2023 End: 04-26-2023 ambulatory ELLEN COOK Facility: [place] Start: 04-25-2023 End: 04-25-2023 Patient encounter procedure ELLEN COOK [facility] Start: 04-17-2023 End: 04-18-2023 ambulatory Kunal LORA Facility:[facility] Start: 04-17-2023 End: 04-17-2023 Patient encounter procedure Kunal LORA [facility] Start: 02-17-2023 Telephone encounter Kasey Hernández RD Work Phone: Functional Medicine Comment on above: Appointment Start: 02-15-2023 End: 02-15-[address] Hernández RD Work Phone: [facility] Start: 02-15-2023 End: 02-15-2023 FQHC visit, estab pt Kasey Oden Edgar RD Work Phone: Functional Medicine Comment on above: Established Patient Start: 02-04-2023 ambulatory Christiana Concepcion Work Phone: Functional Medicine Comment on above: After Visit 02/03/23 Start: 02-04-2023 E-mail encounter fro m caregiver Christiana Montero MD Work Phone: [facility] Start: 02-03-2023 End: 02-03-2023 ambulatory MENG PRATER Facility:[facility] Start: 02-03-2023 End: 02-03-2023 Patient encounter [...] m caregiver Christiana Montero MD Work Phone: [facility] Start: 10-31-2022 End: 10-31-2022 Patient encounter procedure [...] Start: 08-10-2022 End: 08-11-2022 ambulatory [facility]unal [facility] Start: 08-10-2022 End: 08-10-2022 Patient encounter procedure Kunal LORA [facility] [place] Start: 08-08-2022 End: 08-09-2022 ambulatory Kunal LORA Facility:[facility] [place] Start: 08-08-2022 End: 08-08-2022 Patient encounter procedure [facility]unal [facility]ORA [facility] Start: 07-25-2022 End: 07-25-2022 ambulatory CHRISTIANA MONTERO Facility:[facility] Start: 07-25-2022 End: 07-25-2022 Patient encounter [...] sit 25 minutes Meng Prater Work Phone: [facility] 250 DO Work Phone: Start: 05-12-2022 ambulatory [facility] Functional Medicine Comment on above: Mold Report Start: 05-12-2022 E-mail encounter fro m caregiver [facility] Provider [facility] Start: 05-09-2022 ambulatory Evita siu MD Work Phone: Functional Medicine Comment on above: Ubiquinol Start: 04-26-2022 Rx Renewal Meng Prater Work Phone: [facility] 250 DO Work Phone: Start: 04-11-2022 ambulatory [facility] Provider Functional Medicine Comment on above: Ultrasound - Carotid Artery Start: 04-11-2022 E-mail encounter fro m caregiver [facility] Provider [facility] Start: 03-18-2022 End: 03-18-2022 Patient encounter [...] encounter procedure Kunal LORA [facility] Start: 01-09-2022 ambulatory Evita siu MD Work Phone: Functional Medicine Comment on above: Mold test results Start: 08-09-2021 Office outpatient vi sit 25 minutes Meng Prater Work Phone: [facility] 250 DO Work Phone: Start: 07-11-2017 Ambulatory [...] Anne Snow, Status: Pen, Time: 2:00 PM [facility] 250 DO Work Phone: Start: 06-04-2024 End: 06-04-2024 Patient encounter procedure 06/04/2024 2:00 PM EDT Office Visit [facility] [address] [place] [address] Mary Anne Snow MD [address] [place] [address] [facility] Start: 11-25-2023 DIABETES SCREEN DIABETES SCREEN [facility] Start: 07-24-2023 CAROTID, Provider: CHAD CARMONA ULTRASOUND ,[id number], Status: Pen, Time: 2:30 PM CAROTID, Provider: CHAD CARMONA ULTRASOUND ,[id number], Status: Pen, Time: 2:30 PM [facility] 250 DO Work Phone: Start: 06-09-2023 Influenza vaccination [facility] Start: 06-06-2023 FUV, Provider: Mary Anne Snow, Status: Pen, Time: 1:20 PM FUV, Provider: Mary Anne Snow, Status: Pen, Time: 1:20 PM [facility] 250 DO Work Phone: Start: 03-18-2023 BP CONTROLLED (<130/80) BP CON TROLLED (<130/80) [facility] Start: 03-02-2023 BP CONTROLLED (<130/80) BP CON TROLLED (<130/80) [facility] Start: 02-04-2023 End: 04-06-2023 MISC SEND OUT TST 1 MISC SEND OUT TST 1 Lab Routine 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) Chemical exposure Expected: 02/04/2023, Expires: 04/06/2023 [facility] Work Phone: Comment on above: Expected: 02/04/2023 , Expires: 04/06/2023 Start: 12-01-2022 BP CONTROLLED (<130/80) BP CON TROLLED (<130/80) [facility] Start: 10-09-2022 ADVANCE DIRECTIVE DISCUSSION ADVANCE DIRECTIVE DISCUSSION [facility] Start: 07-25-2022 End: 09-24-2022 COPPER BLOOD COPPER BLOOD Lab Routine Memory change Expected: 07/25/2022, Expires: 09/24/2022 [facility] Work Phone: Comment on above: Expected: 07/25/2022 , Expires: 09/24/2022 Start: 07-25-2022 End: 09-24-2022 FM SQ NUTREVAL PANEL BLOOD AND URINE FM SQ NUTREVAL PANEL BLOOD AND URINE Lab Routine Impaired nutrient utilization Expected: 07/25/2022, Expires: 09/24/2022 [facility] Work Phone: Comment on above: Expected: 07/25/2022 , Expires: 09/24/2022 Start: 07-25-2022 End: 09-24-2022 Homocysteine [Moles/volume] in Serum or Plasma HOMOCYSTEINE Lab Routine Elevated homocysteine Expected: 07/25/2022, Expires: 09/24/2022 [facility] Work Phone: Comment on above: Expected: 07/25/2022 , Expires: 09/24/2022 Start: 07-25-2022 End: 07-25-2023 Thyrotropin [Units/volume] in Serum or Plasma TSH BLD Lab Routine Expected: 07/25/2022, Expires: 07/25/2023 [facility] Work Phone: Comment on above: Expected: 07/25/2022 , Expires: 07/25/2023 Start: 07-25-2022 End: 07-25-2023 Thyroxine (T4) free [Mass/volume] in Serum or Plasma T4 FREE/FREE THYROX Lab Routine Expected: 07/25/2022, Expires: 07/25/2023 [facility] Work Phone: Comment on above: Expected: 07/25/2022 , Expires: 07/25/2023 Start: 07-25-2022 End: 09-24-2022 Triiodothyronine (T3) Free [Mass/volume] in Serum or Plasma T3 FREE BLD Lab Routine Expected: 07/25/2022, Expires: 09/24/2022 [facility] Work Phone: Comment on above: Expected: 07/25/2022 , Expires: 09/24/2022 Start: 07-25-2022 End: 09-24-2022 Zinc [Mass/volume] in Serum or Plasma ZINC BLD Lab Routine Memory change Expected: 07/25/2022, Expires: 09/24/2022 [facility] Work Phone: Comment on above: Expected: 07/25/2022 , Expires: 09/24/2022 Start: 06-09-2022 Influenza vaccination [facility] Start: 05-31-2022 FUV, Provider: Mary Anne Snow, Status: Pen, Time: 11:50 AM FUV, Provider: Mary Anne Snow, Status: Pen, Time: 11:50 AM [facility] 250 DO Work Phone: Start: 05-25-2022 FUV, Provider: Mary Anne Snow, Status: Pen, Time: 1:00 PM FUV, Provider: Mary Anne Snow, Status: Pen, Time: 1:00 PM [facility] 250 DO Work Phone: Start: 10-09-2021 ADVANCE DIRECTIVE DISCUSSION ADVANCE DIRECTIVE DISCUSSION [facility] Start: 08-07-2019 Pneumococcal Vaccine : 65+ Years (2 - PPSV23 or PCV20) Pneumococcal Vaccine: 65+ Years (2 - PPSV23 or PCV20) [facility] Start: 2006 BONE DENSITY BONE DENSITY [facility] Start: 2006 PNEUMOCOCCAL: 65+ (1 - PCV) PNEUMOCOCCAL: 65+ (1 - PCV) [facility] Start: 2006 PNEUMOVAX AGE 65 AND OVER WITH 5YR LOOKBACK (#1) PNEUMOVAX AGE 65 AND OVER WITH 5YR LOOKBACK (#1) [facility] Start: 1991 SHINGRIX VACCINE (1 of 2) BYRNE GRIX VACCINE (1 of 2) [facility] Start: 1991 Zoster Vaccines (1 of 2) Zoste r Vaccines (1 of 2) [facility] Start: 1963 DTaP/Tdap/Td Vaccine s (1 - Tdap) DTaP/Tdap/Td Vaccines (1 - Tdap) [facility] Start: 1960 Urine microalbumin profile DTA P,TDAP,TD (1 - Tdap) [facility] Start: 1959 ANNUAL PCP TEAM CHEMISTRY ASSOCIATE BRANNON DISEASE VISIT ANNUAL PCP TEAM CHRONIC DISEASE VISIT [facility] Start: 1959 BP CONTROLLED (<130/80) BP CON TROLLED (<130/80) [facility] Start: 1946 COVID-19 VACCINE (#1) COVID-19 VACCI NE (#1) [facility] Start: 1946 COVID-19 VACCINE (1) COVID-19 VACCIN E (1) [facility] Start: 05-09-1942 COVID-19 VACCINE (#1) COVID-19 VACCI NE (#1) [facility] Start: 1941 Lipid panel Lipid Panel [facility] Start: 1941 Medicare Annual Well ness Visit Medicare Annual Wellness Visit (AWV) [facility] Start: 1941 Screening for osteoporosis Bone Dens ity Scan [facility] End: 08-21-2023 US.doppler Carotid arteries - bilateral [facility] Service Area Work Phone: Comment on above: Once for 1 Occurrenc es starting 08/21/2023 until 08/21/2023 [facility] Immunizations Immunization Date Immunization Notes Care Provider Germain campos 08-07-2018 pneumococcal conjuga te vaccine, 13 valent Meng Paz Hoy Work Phone: [facility] 250 DO Work Phone: NEGATED: Highlighted row has not occurred!08-08-2022 SARS-CoV-2 mRNA (tozinameran 5y-11y) vaccine Kunal LORA [facility] NEGATED: Highlighted row has not occurred!11-23-2020 influenza virus vaccine, unspecified formulation Kunal LORA [facility] Payers Date Payer Category Payer Medicare AETNA MEDICARE A ETNA MEDICARE PPO [id number] 2021-Present [phone] [address] [place] [address] PPO [id number] 2021 Medicare [id number] 1959 Medicare [id number] 1941 Unknown [id number] 1941 Unknown [id number] 93 1941 Unknown [id number] 1941 Unknown [id number] [id number] 93 1941 Unknown [id number] 93 1941 Unknown [id number] [id number] 56 1941 Unknown [id number] [id number] 27 1941 Unknown [id number] [id number] 27 1941 Unknown [id number] [id number] 27 1941 Unknown [id number] [id number] 27 1941 Unknown [id number] [id number] 27 1941 Unknown [id number] [id number] 27 1941 Unknown [id number] 259 Private Health Insurance [id number] [id number] Unknown AETNA Social History Date Type Detail Facility Start: 10-31-2022 End: 02-15-2023 Caffeine use Caffeine use [place] [address] DO Work Phone: Comment on above: decaff occasional co ffee, 1-2 cups of ohtt lionel daily; Start: 06-13-2019 End: 04-25-2023 Tobacco smoking status NHIS Never smoked tobacco [facility] Start: 06-13-2019 End: 07-25-2022 Tobacco use and exposure Smokeless tobacco non-user [facility] Start: 1940 Sex Assigned At Female [facility] Start: 12-07-2021 End: 08-21-2023 Exposure to SARS-CoV-2 (event) Not sure [facility] Start: 10-31-2022 End: 02-15-2023 Sex Assigned At Female [facility] Tobacco smoking status Never [facility] Start: 07-07-2020 Sexual orientation Heterosexual (beronica winters) [facility] Tobacco smoking stat us NHIS Tobacco smoking consumption unknown [facility] Work Phone: Start: 1940 Sex Assigned At Not on file [facility] Work Phone: Functional Status Date Assessment Result Facility 04-25-2023 Functional Status N/A [facility] 08-08-2022 Functional Status N/A [facility] Clinical Notes 01-31-2022 to 07-19-2023 Patient InstructionsPatient InstructionsChristiana Montero MD - 05/19/2023 4:[address] - 05/19/2023 3:00 PM EDTTelephone Encounter - Evelyn Flaherty LPN - 02/17/2023 8:17 AM EDT Note Date & Type Note Facility 07-19-2023 Evaluation + Plan note Diagnostic Tests PendingUrine Culture 07/19/23 [place] 05-22-[address] - 05/22/2023 9:01 AM EDT [facility] MEDICINE FOLLOW UP NUTRITION INSTRUCTIONS Nutrition Follow-up: [...] Lionel Zero Pascha Recipes -Paleo Hot Chocolate: https://Picosun/vegan-hot -chocolate-paleo/ -Keto No Bake Brownie Bites: https://www.FamilyID/keto -te-zomj-qbxqabp-bites/ -Whole Food Fudge: https://Integrated Solar Analytics Solutions/easy-raw -epsok-jbtbj-qoulu/ 2. Continue focus on the SEAMUS food plan principles previously discussed: -Shannon-3 Rich Fish (wild-caught salmon, mackerel, anchovies, sardines, rodrigues): twice per week -Continue grass-fed beef 3-4X/week -Add legumes 3-4X/week Three jamil salad recipe: https://Divide/class bk-quqmf-vrio-salad/ -Add homemade vinaigrette coleslaw or green salad daily Vinegar based coleslaw: https://www.Boca Research/vine swb-udzwh-bnaftfih/ -Continue nuts/seeds daily I.e. almonds, walnuts, pecans [...] Patient Folder. (Or you can go to https://Possible Web.[facility]. org) 2. For nutrition related questions or concerns, [employer] message your physician and include Attn: Shelley Mitchell RD at the top of the message. [employer] messaging is meant to support implementation of [...] Supplements can be ordered from the [facility]'s [facility]'s Online Store: [email or web address] New patients to the Healthy Living Shop will need to enter the provider code FUNCTIONAL to register their account. documented in this encounter [facility] 05-19-2023 Note HNO ID: [id number] Author: Christiana Montero MD Service: ? Author [...] OmegaGenics EPA-DHA 2400 (High Concentrate EPA/DHA liquid) ([facility]) Take one teaspoon (5 ml) 1 times daily with food UT Synergy (RocketOn) antibacterial Take 1 capsule by mouth twice daily. Brain Misael Capsules (RocketOn) Take 2 tablets by mouth w MEALS. Neuromag ( RocketOn ) 90 ct Take 3 capsules per [...] diet to mix and match - cancelled electrocardiogram technician visit due to not having NutrEval [...] home testnig. Frustrate (more content not included)... [facility] 05-19-2023 Note HNO ID: [id number] Author: Shelley Mitchell RD Service: ? Author Type: Registered Dietitian Type: Progress Notes Filed: 05/22/2023 9:02 AM Note Text: [facility] Nutrition Therapy: Follow-Up Assessment (Individual) IN PERSON Accompanied by her spouse today Patient Name: Ann Marie Hill Past Medical History: PAST MEDICAL HISTORY Diagnosis Date Alzheimer disease (HCC) HTN (hypertension) Allergies: Ciprofloxacin, Penicillins, and Sulfa (Sulfonamide Antibiotics) Current Medications/Supplements Current Outpatient Medications on File Prior to Visit Medication Sig PhytoMulti 60s capsules ([facility] [facility]) Take 2 capsules daily, with meals. Glycine (Pure Encapsulations) Take 1 capsule 3 times daily in divided doses between meals. (1 [id number]) B-Complex Plus (Pure Encapsulations) Take 1 capsule by mouth daily with food. Glutathione (Planet Labs) Use 20 pumps daily (1000mg) divided doses [...] OmegaGenics EPA-DHA 2400 (High Concentrate EPA/DHA liquid) ([facility]) Take one teaspoon (5 ml) 1 times daily with food UT Synergy (RocketOn) antibacterial Take 1 capsule by mouth twice daily. Neuromag ( RocketOn ) 90 ct Take 3 capsules per [...] disturbance (HCC) [G30.1, F02.818] Provider Nutrition Notes:Per service greeter R41.3 Memory change (primary encounter diagnosis) F05 [...] Would like more print outs today vs. [employer] Subjective (08/06/21) -Daughter christos on line: states [...] Biochemical and L (more content not included)... [facility] 05-19-2023 Note Education ([facility]) ANN MARIE HILL ([id number]) 1940 F Date Time Provider Department 05/19/23 3:00 PM SHELLEY MITCHELL [facility] Reason for Visit: Established Patient [175] Primary [...] daily in divided doses between meals. (1 [id number]) - B-Complex Plus (Pure Encapsulations) Take 1 capsule by mouth daily with food. - Glutathione ([facility]et [facility]) Use 20 pumps daily (1000mg) divided doses [...] OmegaGenics EPA-DHA 2400 (High Concentrate EPA/DHA liquid) ([facility]) Take one teaspoon (5 ml) 1 times daily with food - UT Synergy (RocketOn) antibacterial Take 1 capsule by mouth twice daily. - Neuromag ( RocketOn ) 90 ct Take 3 capsules per [...] Encounter Status:Closed by SHELLEY MITCHELL on 05/22/23 [facility] 05-19-2023 Instructions Christiana Montero MD - [...] cheese, dairy, whole grains, and eggs. The MORNING NEWS PRODUCER is 4.1 mg per kilogram of body weight or 1.9 mg per pound. Some high cysteine foods include: Soybeans, raw (609 mg per 1/2 cup) Oat bran, dry (541 mg per 1 cup) Pork ham, roasted (492 mg per 4 oz.) Tuna Fish, light, canned in oil, drained (456 mg per 1 cup) Chicken breast, cooked (444 mg per 4 oz.) [place] breast, cooked (436 mg per 4 oz.) Beef angelo, cooked (408 mg per 4 oz.) Oat bran, cooked (217 mg per 1 cup) Egg, whole, raw, fresh (136 mg per 1 large egg) [place] seeds, oil roasted (113 mg per 1 oz.) Cashews, oil-roasted (104 mg per 1 oz.) Peanuts, oil roasted (95 mg per 1 oz.) Micronesian cheese, diced (83 mg per 1 oz.) [...] cofactor for the production of glutathione. The MORNING NEWS PRODUCER value to maximize glutathione production in the [...] peppers may be beneficial Functional Nutrition: per electrocardiogram technician Review and implement diet factors recommended through nutritional visit - use your health excellence coach for discussion on how to implement [...] recommend ordering supplementation online from the [facility] H?REL Shop as they are high quality therapeutic supplements. H?REL Shop [facility] offers an easy to use, convenient way to order supplementation recommended by your provider through the H?REL Shop. All of the products offered are considered high-quality, and adhere to specific criteria for quality and effectiveness including good manufacturing practices, use of clean products, free of fillers, binders, and other antigens. In addition, we follow third constitution party analysis for independent verification of active ingredients. Get started by following three easy steps: A. Visit the following webpage: https://Watchup.Forsythe. KongZhong/ Pivit Labs Statements on this site have not been [...] For issues with your MRN please call [phone] Stress Management PolicyBazaar Neuro -new technology to use a wearable device to retrain brain and focus on nervous system reduction. To learn more of this technology by going to (fst-zkj-hhopy) https://Storyvine/ Please look into this Heart Rate Variability [...] one of the Heart Math booklets off [employer] that fits your 'go to' emotion - [...] lor-amparo/ --- Frias Program - (John Frias) Https://www.Dragon Ports.KongZhong/ Finding time for self (no multitasking) at this time to dedicate to breathing / relaxation process. Work on cultivating ted! documented in this encounter [facility] 05-19-2023 History of Presen t illness [...] OmegaGenics EPA-DHA 2400 (High Concentrate EPA/DHA liquid) ([facility]) Take one teaspoon (5 ml) 1 times daily with food UT Synergy (RocketOn) antibacterial Take 1 capsule by mouth twice daily. Brain Misael Capsules (RocketOn) Take 2 tablets by mouth w MEALS. Neuromag ( RocketOn ) 90 ct Take 3 capsules per [...] diet to mix and match - cancelled electrocardiogram technician visit due to not having NutrEval [...] Phenylacetic,Benzoic, DHPAA Detox Markers Yeast markers Citramalic Shannon 3 Index NOrmal Oxidative stress Lipid 9.7 8OHdg 11 Heavy metals Other Oxalate markers (glyceric, glycolic, oxalic) - all elevated Maritza Nutreval Jun 2020 High Need: Mod Need: All B's Amino acids: Malabsorption markers: Bacterial dysbiosis markers: Fungal dysbiosis markers:arabinose 55 Toxin/detox markers: high Shannon-3 Index: 4.3 Glutathione level:998 Lipid peroxides:8.5 Toxic [...] processed foods. Think of plasminogens for Alzheimer's www.prodrome.KongZhong Synapsin - if wishing to use notify [...] cheese, dairy, whole grains, and eggs. The MORNING NEWS PRODUCER is 4.1 mg per kilogram of body weight or 1.9 mg per pound. Some high cysteine foods include: Soybeans, raw (609 mg per 1/2 cup) Oat bran, dry (541 mg per 1 cup) Pork ham, roasted (492 mg per 4 oz.) Tuna Fish, light, canned in oil, drained (456 mg per 1 cup) Chicken breast, cooked (444 mg per 4 oz.) [place] breast, cooked (436 mg per 4 oz.) Beef angelo, cooked (408 mg per 4 oz.) Oat bran, cooked (217 mg per 1 cup) Egg, whole, raw, fresh (136 mg per 1 large egg) [place] seeds, oil roasted (113 mg per 1 oz.) Cashews, oil-roasted (104 mg per 1 oz.) Peanuts, oil roasted (95 mg per 1 oz.) Micronesian cheese, diced (83 mg per 1 oz.) [...] cofactor for the production of glutathione. The MORNING NEWS PRODUCER value to maximize glutathione production in the [...] peppers may be beneficial Functional Nutrition: per electrocardiogram technician Review and implement diet factors recommended through nutritional visit - use your health excellence coach for discussion on how to implement [...] recommend ordering supplementation online from the [facility] as they are high quality therapeutic supplements. H?REL Shop [facility] offers an easy to use, convenient way to order supplementation recommended by your provider through the [facility]. All of the products offered are considered high-quality, and adhere to specific criteria for quality and effectiveness including good manufacturing practices, use of clean products, free of fillers, binders, and other antigens. In addition, we follow third constitution party analysis for independent verification of active ingredients. Get started by following three easy steps: A. Visit the following webpage: https://Watchup.InvestCloud/ [facility] Statements on this site have not been [...] For issues with your MRN please call [phone] Stress Management [place] [facility] -new technology to use a wearable device to retrain brain and focus on nervous system reduction. To learn more of this technology by going to (utn-cjf-ayzub) https://Storyvine/ Please look into this Heart Rate Variability [...] one of the Heart Math booklets off Coursera that fits your 'go to' emotion - [...] fully) . --- Polyvagal theory (Connor Ybarra) https://www.connorUltraSoC Technologies.com/ --- Dynamic Neural Retraining System - (Ketty Christensen) https://retrainingthebrain.com/a lor-amparo/ --- Frias Program - (John Frias) Https://www.Nexavis/ Finding time for self (no multitasking) at this time to dedicate to breathing / relaxation process. Work on cultivating ted! Future Plans (for provider use): I spent a total of 45 minutes on the date of the service which included preparing to see the patient, vptj-jt-dyrx patient care, completing clinical documentation, obtaining and/or reviewing separately obtained history, performing a medically appropriate examination, and ordering medications, tests, or procedures. Christiana Montero MD documented in this encounter [facility] 05-19-2023 History of Presen t illness Narrative [facility] Functional Medicine Nutrition Therapy: Follow-Up Assessment (Individual) IN PERSON Accompanied by her spouse today Patient Name: Ann Marie Hill Past Medical History: PAST MEDICAL HISTORY Diagnosis Date Alzheimer disease (HCC) HTN (hypertension) Allergies: Ciprofloxacin, Penicillins, and Sulfa (Sulfonamide Antibiotics) Current Medications/Supplements Current Outpatient Medications on File Prior to Visit Medication Sig PhytoMulti 60s capsules ([facility]) Take 2 capsules daily, with meals. Glycine (Pure Encapsulations) Take 1 capsule 3 times daily in divided doses between meals. (1 hedeusz=[id number]) B-Complex Plus (Pure Encapsulations) Take 1 capsule by mouth daily with food. Glutathione ([facility]) Use 20 pumps daily (1000mg) divided doses [...] OmegaGenics EPA-DHA 2400 (High Concentrate EPA/DHA liquid) ([facility]) Take one teaspoon (5 ml) 1 times daily with food UT Synergy (RocketOn) antibacterial Take 1 capsule by mouth twice daily. Neuromag ( [facility]ocket[facility] ) 90 ct Take 3 capsules per [...] disturbance (HCC) [G30.1, F02.818] Provider Nutrition Notes:Per service greeter R41.3 Memory change (primary encounter diagnosis) F05 [...] recall updated below; some restaurant meals at [facility] (focuses on 'chicken and vegetables'); endorses fish consumption limited to 2X/month Current Adverse Reactions to Foods: previously avoiding wheat, dairy, sugar, grains; not strict with this now Subjective (12/01/21) Weight has been stable: 118-120 Would like more print outs today vs. [employer] resources Subjective (08/06/21) -Daughter christos on line: [...] Acid Isocitric Acid Succinic Acid Malic Acid Shannon Imbalance 3 Toxic Exposure 8 Methylation Imbalance [...] Lionel Zero Pascha Recipes -Paleo Hot Chocolate: https://Picosun/vegan-hot -chocolate-paleo/ -Keto No Bake Brownie Bites: https://www.FamilyID/keto -ap-gafq-pmvyabe-bites/ -Whole Food Fudge: https://Integrated Solar Analytics Solutions/easy-raw -yowob-zrvbq-ppzya/ 2. Continue focus on the SEAMUS food plan principles previously discussed: -Shannon-3 Rich Fish (wild-caught salmon, mackerel, anchovies, sardines, rodrigues): twice per week -Continue grass-fed beef 3-4X/week -Add legumes 3-4X/week Three jamil salad recipe: https://Divide/class kq-zyant-ppno-salad/ -Add homemade vinaigrette coleslaw or green salad daily Vinegar based coleslaw: https://www.Boca Research/vine pjz-ufhdb-anamprep/ -Continue nuts/seeds daily I.e. almonds, walnuts, pecans [...] idea below) Resources/Educational Materials Provided: sent through [facility] Adherence Potential to Goals/Care Plan: [...] Mitchell RD documented in this encounter [facility] 04-25-2023 Hospital Discharg e instructions Patient Education 04/25/2023 12:19:15 Urinary Tract Infection, Adult, Wtlz-ba-Wfpc Urinary Tract Infection, Adult A urinary tract [...] Follow these instructions at home: Medicines Take wwqt-yxx-wntjonx and prescription medicines only as told by [...] provider. Document Revised: 05/07/2021 Document Reviewed: 05/07/2021 Ad Tech Media Sales Patient Education 2022 Shield Therapeutics. Follow Up Care 08/08/2022 16:24:54 With:DANIEL BOYER, ELLEN Bell, URL Address: [address] [place] [address] When: Unknown [facility] 02-17-2023 Miscellaneous Notes NUTRITION RESOURCES SENT VIA [employer]. Evelyn Flaherty LPN February 17, 2023 8:17 AM documented in this encounter [facility] 02-16-[address] Hernández RD - 02/16/2023 2:20 PM EDT [facility] MEDICINE FOLLOW UP NUTRITION INSTRUCTIONS Nutrition Follow-up: In 6 months with Kasey Hernández RD. Your Prescribed Nutrition Plan: Seamus (Gluten-Free) 1. Continue with Seamus Food Plan (Dairy-Free/Gluten-Free), with the following targets: -Shannon-3 Rich Fish (wild-caught salmon, mackerel, anchovies, sardines, rodrigues): twice per week -Continue grass-fed beef 3-4X/week -Add legumes 3-4X/week Three jamil salad recipe: https://[facility].KongZhong/class hu-ldxti-gvow-salad/ -Add homemade vinaigrette coleslaw or green salad daily Vinegar based coleslaw: https://www.KOEZY.KongZhong/vine toh-gvrxa-favfajmk/ -Continue nuts/seeds daily I.e. almonds, walnuts, pecans [...] soup idea below) 2. For bread, use Academia RFID Brand Base [employer]: https://Taxon Biosciences/ (Keto bread near you in [place]) -Avoid starches, canola oil and sugars in [...] Functional Medicine Team (Open M-F 8am-5pm): 1. Women of Coffeehart is the BEST form of communication to reach the Functional Medicine Team, see test results and request refills. Please allow 72 business hours for a response. Directions for signing up are included in your New Patient Folder. (Or you can go to [email or web address]) 2. For nutrition related questions or concerns, MyChart message your physician and include Attn: Kasey Hernández RD at the top of the message. [employer] messaging is meant to support implementation of [...] Supplements can be ordered from the [facility]'s Online Store: https://store.InvestCloud/#login New patients to the H?REL Shop will need to enter the provider code FUNCTIONAL to register their account. documented in this encounter [facility] 02-15-2023 Note HNO ID: [id number] Author: Kasey Hernádnez RD Service: ? Author Type: Registered Dietitian Type: Progress Notes Filed: 02/16/2023 2:20 PM Note Text: [facility] Nutrition Therapy: Follow-Up Assessment (Individual) IN [...] daily in divided doses between meals. (1 [id number]) B-Complex Plus (Pure Encapsulations) Take 1 capsule by mouth daily with food. Glutathione ([facility]) Use 20 pumps daily (1000mg) divided doses [...] OmegaGenics EPA-DHA 2400 (High Concentrate EPA/DHA liquid) ([facility]) Take one teaspoon (5 ml) 1 times daily with food UT Synergy (RocketOn) antibacterial Take 1 capsule by mouth twice daily. Neuromag ( [facility]ocketOn ) 90 ct Take 3 capsules per [...] Would like more print outs today vs. [employer] resources Subjective (08/06/21) -Daughter christos on line: [...] Biochemical and Laboratory Data Conventional/Advanced Testing NutrEval [facility] Date collected: Elevated Decreased Oxidative Stress 7 8-OHdG Mitochondrial Dysfunction 7 Magnesium Lactic Acid Isocitric Acid Succinic Acid Malic Acid Shannon Imbalance 3 Toxic Exposure 8 Methylation Imbalance [...] verbalized inaccurate/incomplete inform (more content not included)... [facility] 02-15-2023 Note Education (MEDFMN) ANN MARIE HILL ([id number]) 1940 F Date Time Provider Department 02/15/23 [...] as of 02/16/2023 - PhytoMulti 60s capsules ([facility]) Take 2 capsules daily, with meals. - Glycine (Pure Encapsulations) Take 1 capsule 3 times daily in divided doses between meals. (1 [id number]=448wk) - B-Complex Plus (Pure Encapsulations) Take 1 capsule by mouth daily with food. - Glutathione ([facility]) Use 20 pumps daily (1000mg) divided doses [...] OmegaGenics EPA-DHA 2400 (High Concentrate EPA/DHA liquid) ([facility]) Take one teaspoon (5 ml) 1 times daily with food - UT Synergy (RocketOn) antibacterial Take 1 capsule by mouth twice daily. - Neuromag ( [facility] ) 90 ct Take 3 capsules per [...] Encounter Status:Closed by KASEY RAE on 02/16/23 [facility] 02-15-2023 History of Presen t illness Narrative [facility] Functional Medicine Nutrition Therapy: Follow-Up Assessment (Individual) IN PERSON Patient Name: Ann Marie Hill Past Medical History: PAST MEDICAL HISTORY Diagnosis Date Alzheimer disease (HCC) HTN (hypertension) Allergies: Ciprofloxacin, Penicillins, and Sulfa (Sulfonamide Antibiotics) Current Medications/Supplements Current Outpatient Medications on File Prior to Visit Medication Sig PhytoMulti 60s capsules ([facility]) Take 2 capsules daily, with meals. Glycine (Pure Encapsulations) Take 1 capsule 3 times daily in divided doses between meals. (1 [id number]=391fp) B-Complex Plus (Pure Encapsulations) Take 1 capsule by mouth daily with food. Glutathione ([facility]) Use 20 pumps daily (1000mg) divided doses [...] OmegaGenics EPA-DHA 2400 (High Concentrate EPA/DHA liquid) ([facility]) Take one teaspoon (5 ml) 1 times daily with food UT Synergy (RocketOn) antibacterial Take 1 capsule by mouth twice daily. Neuromag ( RocketOn ) 90 ct Take 3 capsules per [...] Would like more print outs today vs. [employer] resources Subjective (08/06/21) -Daughter christos on line: [...] Acid Isocitric Acid Succinic Acid Malic Acid Shannon Imbalance 3 Toxic Exposure 8 Methylation Imbalance [...] Food Plan (Dairy-Free/Gluten-Free), with the following targets: -Shannon-3 Rich Fish (wild-caught salmon, mackerel, anchovies, sardines, rodrigues): twice per week -Continue grass-fed beef 3-4X/week -Add legumes 3-4X/week Three jamil salad recipe: https://Divide/class no-wjrlw-ezvb-salad/ -Add homemade vinaigrette coleslaw or green salad daily Vinegar based coleslaw: https://www.Boca Research/vine piy-klpfk-sklzmnvz/ -Continue nuts/seeds daily I.e. almonds, walnuts, pecans [...] idea below) 2. For bread, use Base [employer] Sky [employer] Brand Base Culture: https://Taxon Biosciences/ (Keto bread near you in [place]) -Avoid starches, canola oil and sugars in gluten-free breads 3. Increase foods rich in B Vitamins; choose at least 1-2 from each B-Vitamin list daily: Vitamin B1 (Thiamin): Beans (black, ohbbs, navy, dias, etc.), lentils, oats, peas, sunflower [...] Hernández RD documented in this encounter [facility] 02-03-2023 Note HNO ID: [id number] Author: Christiana Montero MD Service: ? Author Type: Physician Type: Progress Notes Filed: 02/04/2023 7:35 AM Note Text: FUNCTIONAL MEDICINE FOLLOW-UP ASSESSMENT Patient: Ann Marie Hlil There is no height or weight on [...] OmegaGenics EPA-DHA 2400 (High Concentrate EPA/DHA liquid) ([facility]) Take one teaspoon (5 ml) 1 times daily with food UT Synergy (RocketOn) antibacterial Take 1 capsule by mouth twice daily. Brain Misael Capsules ([facility]On) Take 2 tablets by mouth w MEALS. Neuromag ( RocketOn ) 90 ct Take 3 capsules per [...] diet to mix and match - cancelled electrocardiogram technician visit due to not having NutrEval [...] 2022 Evita Calderon (more content not included)... [facility] 02-03-2023 History of Presen t illness [...] OmegaGenics EPA-DHA 2400 (High Concentrate EPA/DHA liquid) ([facility]) Take one teaspoon (5 ml) 1 times daily with food UT Synergy (RocketOn) antibacterial Take 1 capsule by mouth twice daily. Brain Misael Capsules (RocketOn) Take 2 tablets by mouth w MEALS. Neuromag ( RocketOn ) 90 ct Take 3 capsules per [...] diet to mix and match - cancelled electrocardiogram technician visit due to not having NutrEval [...] vitamin deficiency) at this time. Check with electrocardiogram technician on how to improve - stressed [...] Phenylacetic,Benzoic, DHPAA Detox Markers Yeast markers Citramalic Shannon 3 Index NOrmal Oxidative stress Lipid 9.7 8OHdg 11 Heavy metals Other Oxalate markers (glyceric, glycolic, oxalic) - all elevated Maritza Nutreval Jun 2020 High Need: Mod Need: All B's Amino acids: Malabsorption markers: Bacterial dysbiosis markers: Fungal dysbiosis markers:arabinose 55 Toxin/detox markers: high Shannon-3 Index: 4.3 Glutathione level:998 Lipid peroxides:8.5 Toxic [...] , estradiol FUNCTIONAL MEDICINE PLAN: Meet with electrocardiogram technician to review NutrEval (with Christos) due [...] - use of 2 tablespoons of Galdamez [place] Lecithin Powder twice daily Consider Synapsin (compounded nasal spray) to assist for mood / anxiety - notify if wishing to consider. https://Soup.io.KongZhong/article/m edication-compounding/rg3-synaps ls-pbdzm-nekbd-lqjlx-lhxhxy-twhw w-hlg-ibamtgewe-memory-focus/ Stop the following: Brain Misael Riddle Multi t/d Stop the Functional Nutrition: per electrocardiogram technician Review and implement diet factors recommended through nutritional visit - use your health excellence coach for discussion on how to implement [...] recommend ordering supplementation online from the [facility]?REL [facility] as they are high quality therapeutic supplements. H?REL Shop [facility] offers an easy to use, convenient way to order supplementation recommended by your provider through the H?REL Shop. All of the products offered are considered high-quality, and adhere to specific criteria for quality and effectiveness including good manufacturing practices, use of clean products, free of fillers, binders, and other antigens. In addition, we follow third constitution party analysis for independent verification of active ingredients. Get started by following three easy steps: A. Visit the following webpage: https://Watchup.InvestCloud/ H?REL Shop Statements on this site have not [...] For issues with your MRN please call [phone] Stress Management [facility] [employer] -new technology to use a wearable device to retrain brain and focus on nervous system reduction. To learn more of this technology by going to (jgz-mbc-dlmgs) https://Storyvine/ Please look into this Heart Rate Variability [...] one of the Heart Math booklets off Coursera that fits your 'go to' emotion - [...] castro/ --- Frias Program - (John Frias) Https://www.rae480 Biomedical.KongZhong/ Finding time for self (no multitasking) at this time to dedicate to breathing / relaxation process. Work on cultivating ted! Future Plans (for provider use): I spent a total of 45 minutes on the date of the service which included preparing to see the patient, sllr-ex-rtrc patient care, completing clinical documentation, obtaining and/or reviewing separately obtained history, performing a medically appropriate examination, and ordering medications, tests, or procedures. Christiana Montero MD documented in this encounter [facility] 10-31-2022 Note HNO ID: [id number] Author: Christiana Montero MD Service: ? Author [...] OmegaGenics EPA-DHA 2400 (High Concentrate EPA/DHA liquid) ([facility]) Take one teaspoon (5 ml) 1 times daily with food UT Synergy (RocketOn) antibacterial Take 1 capsule by mouth twice daily. Brain Misael Capsules ([facility]) Take 2 tablets by mouth w MEALS. Neuromag ( [facility]On ) 90 ct Take 3 capsules per [...] diet to mix and match - cancelled electrocardiogram technician visit due to not having NutrEval [...] of Systems Constitutional: (more content not included)... [facility] 10-31-2022 History of Presen t illness [...] OmegaGenics EPA-DHA 2400 (High Concentrate EPA/DHA liquid) ([facility]) Take one teaspoon (5 ml) 1 times daily with food UT Synergy (RocketOn) antibacterial Take 1 capsule by mouth twice daily. Brain Misael Capsules ([facility]) Take 2 tablets by mouth w MEALS. Neuromag ( [facility]ocketOn ) 90 ct Take 3 capsules per [...] diet to mix and match - cancelled electrocardiogram technician visit due to not having NutrEval [...] Stopped mold detox - sent labs to [facility] (pending) - home testnig. Frustrated with report [...] Fungal dysbiosis markers:arabinose 55 Toxin/detox markers: high Shannon-3 Index: 4.3 Glutathione level:998 Lipid peroxides:8.5 Toxic [...] daylight exposure (Circadian) rhythm. Functional Nutrition: per electrocardiogram technician Review and implement diet factors recommended through nutritional visit - use your health excellence coach for discussion on how to implement [...] recommend ordering supplementation online from the [facility] H?REL Shop as they are high quality therapeutic supplements. Healthy WhatsApp Shop [facility] offers an easy to use, convenient way to order supplementation recommended by your provider through the H?REL Shop. All of the products offered are considered high-quality, and adhere to specific criteria for quality and effectiveness including good manufacturing practices, use of clean products, free of fillers, binders, and other antigens. In addition, we follow third constitution party analysis for independent verification of active ingredients. Get started by following three easy steps: A. Visit the following webpage: https://Watchup.InvestCloud/ H?REL Shop Statements on this site have not [...] For issues with your MRN please call [phone] Stress Management [place] [facility] -new technology to use a wearable device to retrain brain and focus on nervous system reduction. To learn more of this technology by going to (dtd-ema-crdyo) https://Storyvine/ Please look into this Heart Rate Variability [...] one of the Heart Math booklets off Coursera that fits your 'go to' emotion - [...] --- Frias Program - (John Frias) Https://www.jose rafaelpta480 Biomedical.KongZhong/ Finding time for self (no multitasking) at this time to dedicate to breathing / relaxation process. Work on cultivating ted! Future Plans (for provider use): 1. GI Effects? 2. SANNA Metals? I spent a total of 30 minutes on the date of the service which included preparing to see the patient, rwrj-fu-mdxh patient care, completing clinical documentation, obtaining and/or reviewing separately obtained history, performing a medically appropriate examination, counseling and educating the patient/family/caregiver, ordering medications, tests, or procedures, and communicating with other HCPs (not separately reported). Christiana Montero MD documented in this encounter [facility] 10-28-2022 Miscellaneous Notes Spoke with patient's regarding NE urine collection for Monday's lab appointment. Evelyn Flaherty LPN October 28, 2022 12:17 PM documented in this encounter [facility] 10-06-2022 Note PROCEDURE: XR HIP RT [...] authenticated by: ALEXIS CAAL Date: 2022-10-06 07:37 [facility] 10-06-2022 Note PROCEDURE: XR HIP RT [...] authenticated by: ALEXIS CAAL Date: 2022-10-06 07:37 [facility] 08-08-2022 Hospital Discharg e instructions Patient [...] Treatment for this condition includes: Antibiotic medicine. Dvid-uyw-uakgwwu medicines to treat discomfort. Drinking enough water [...] Follow these instructions at home: Medicines Take pglx-doa-yhxzbmc and prescription medicines only as told by [...] 07/05/2006 Document Revised: 09/12/2019 Document Reviewed: 04/04/2019 Ad Tech Media Sales Patient Education 2020 Shield Therapeutics. Follow Up Care 01/31/2022 15:18:00 With:GENO WATTS, Kunal Heller, URL Address: [facility] [address], [place] [id number]- [id number] When:04/08/2023 [facility] 07-25-2022 Note HNO ID: [id number] Author: Christiana Montero MD Service: ? Author [...] saccharomyces boullardi 2 hrs away from nystatin/candibactin/diflucan. Inli-Pljq-CX (Emulate) Take 1 capsule, 2 times daily with 4 oz or more of water. Glutathione ([facility]) - Liver support/detox Use 8 pumps daily , divided doses through out the day. (2 pumps = 100 mg Glutathione). Work up slowly to the higher dose. B-Complex Plus (Pure Encapsulations) Take 2 capsules by mouth daily with food. Multi t/d 60 ct. (Pure Encapsulations) - multivitamin Take 1 capsule by mouth twice daily with meals. OmegaGenics EPA-DHA 2400 (High Concentrate EPA/DHA liquid) ([facility]) Take one teaspoon (5 ml) 1 times daily with food UT Synergy (RocketOn) antibacterial Take 1 capsule by mouth twice daily. Brain Misael Capsules ([facility]ocketOn) Take 2 tablets by mouth w MEALS. Neuromag ( RocketOn ) 90 ct Take 3 capsules per [...] no vitals file (more content not included)... [facility] 07-25-2022 Instructions Christiana Montero MD - 07/25/2022 12:38 PM EDT FUNCTIONAL MEDICINE PLAN: Mold testing - will review in coming days your recent test to determine if binders are beneficial at this time. I may recommend use of binder (remove of mold) depending on testing. NutrEval - will send to your residence. (Crzyfish blood/urine kit to assess for nutritional stores)---> [...] as nutritional evaluation) . Functional Nutrition: Per Loom Repairer Review and implement diet factors recommended through nutritional visit - use your health excellence coach for discussion on how to implement Supplement Support Review supplements - Based upon your lab assessments we may further recommend you consider additional items to these to supplement. No orders of the defined types were placed in this encounter. REMINDERS: Ordering Supplementation: We recommend ordering supplementation online from the [facility] Healthy Living Shop. It is felt these are high quality therapeutic supplements. H?REL Shop (https://store.BrainMass) [facility] offers an easy to use, convenient way to order supplementation recommended by your provider through the H?REL Shop. All of the products offered are considered high-quality, and adhere to specific criteria for quality and effectiveness including good manufacturing practices, use of clean products, free of fillers, binders, and other antigens. In addition, we follow third constitution party analysis for independent verification of active ingredients. Get started by following three easy steps: A. Visit the webpage: https://Watchup.InvestCloud/ [facility] Statements on this site have not been [...] For issues with your MRN please call [phone] Stress Management [employer] [employer] -new technology to use a wearable device to retrain brain and focus on nervous system reduction. To learn more of this technology by going to (ijh-npn-vpqbs) https://Storyvine/ Behavioral Health Therapist: If I recommended counseling [...] one of the Heart Math booklets off Coursera that fits your 'go to' emotion - [...] Eduardo Gordon. (also has an poncho on Kitchon / Sellbox) Insight Meditation Timer- (Free)-Great all-around poncho to [...] lor-amparo/ --- Frias Program - (John Frias) Https://[email or web address] Biomedical.[email or web address]/ Finding time for yourself (no multitasking) at this time to dedicate to breathing / relaxation process. Work on cultivating ted! You deserve it! documented in this encounter [facility] 07-25-2022 History of Presen t illness [...] saccharomyces boullardi 2 hrs away from nystatin/candibactin/diflucan. Yllp-Bmfc-KX (Emulate) Take 1 capsule, 2 times daily with 4 oz or more of water. Glutathione (Planet Labs) - Liver support/detox Use 8 pumps daily , divided doses through out the day. (2 pumps = 100 mg Glutathione). Work up slowly to the higher dose. B-Complex Plus (Pure Encapsulations) Take 2 capsules by mouth daily with food. Multi t/d 60 ct. (Pure Encapsulations) - multivitamin Take 1 capsule by mouth twice daily with meals. OmegaGenics EPA-DHA 2400 (High Concentrate EPA/DHA liquid) ([facility]) Take one teaspoon (5 ml) 1 times daily with food UT Synergy (RocketOn) antibacterial Take 1 capsule by mouth twice daily. Brain Misael Capsules (RocketOn) Take 2 tablets by mouth w MEALS. Neuromag ( RocketOn ) 90 ct Take 3 capsules per [...] NutrEval - will send to your residence. (Crzyfish blood/urine kit to assess for nutritional stores)---> [...] as nutritional evaluation) . Functional Nutrition: Per Loom Repairer Review and implement diet factors recommended through nutritional visit - use your health excellence coach for discussion on how to implement Supplement Support Review supplements - maintain your B support at this time and Brain Misael only. Wait on Multivitamin until you have completed NutrEval for 2021. REMINDERS: Ordering Supplementation: We recommend ordering supplementation online from the [facility]. It is felt these are high quality therapeutic supplements. [facility] (https://Watchup.BrainMass) [facility] offers an easy to use, convenient way to order supplementation recommended by your provider through the [facility]. All of the products offered are considered high-quality, and adhere to specific criteria for quality and effectiveness including good manufacturing practices, use of clean products, free of fillers, binders, and other antigens. In addition, we follow third constitution party analysis for independent verification of active ingredients. Get started by following three easy steps: A. Visit the webpage: [email or web address].[email or web address]/ [facility] Statements on this site have not been [...] For issues with your MRN please call [phone] Stress Management PolicyBazaar Neuro -new technology to use a wearable device to retrain brain and focus on nervous system reduction. To learn more of this technology by going to (yoo-snl-ghjzc) https://Storyvine/ Behavioral Health Therapist: If I recommended counseling [...] one of the Heart Math booklets off Coursera that fits your 'go to' emotion - [...] Eduardo Gordon. (also has an poncho on Kitchon / Google Activity Rocket) Insight Meditation Timer- (Free)-Great all-around poncho to [...] fully) . --- Polyvagal theory (Connor Ybarra) https://[email or web address] [email or web address]/ --- Dynamic Neural Retraining System - (Ketty Amparo) https://retrainingthebrain.com/a chioalex-hopper/ --- Frias Program - (John Frias) Https://[email or web address] Biomedical.[email or web address]/ Finding time for yourself (no multitasking) at this time to dedicate to breathing / relaxation process. Work on cultivating ted! You deserve it! I spent a total of 60 minutes on the date of the service which included preparing to see the patient, xmyi-au-eats patient care, completing clinical documentation, obtaining and/or reviewing separately obtained history, counseling and educating the patient/family/caregiver, ordering medications, tests, or procedures, independently interpreting results (not separately reported), and communicating results to the patient/family/caregiver. Christiana Montero MD documented in this encounter [facility] 03-18-2022 Instructions Evita Calderon MD - [...] I recommend the supplements from the [facility] Dynis Online Store at [email or web address].[email or web address]/ as we have thoroughly evaluated the research and use only highest quality supplements. Please use code: functional. Future Plans: Mold Memory Follow up: Please schedule a follow up visit with the following Caregivers: Provider: [address] Montero in person LIFESTYLE PRESCRIPTION Functional Nutrition: Per service greeter Sleep: Sleep goal for most adults is [...] Health Coaching: Please consider scheduling with our [place] [facility] health coaches for a phone or virtual visit for accountability, goal setting and help with behavior regional climate change analyst the next 6-8 weeks to be successful with your goals. [phone]. Smart phone apps to begin a meditative [...] on your diet plan discussed with our service greeter, allowing for gentle detoxification and decreasing inflammation - while we are gathering your lab results and combining those with your complete history to formulate a very personalized treatment plan. LAB results: Due to the complexity of the testing performed, we are not able to review labs via BigStringt or over the phone, but please know, [...] Also make sure to schedule with the service greeter (this will not happen automatically) as you [...] appointment. You can access them on the Crzyfish website and it can be beneficial if you review them prior to your next visit. www.[email or web address] Media.net. Read about NutrEval if this was ordered. documented in this encounter [facility] 03-18-2022 History of Presen t illness [...] saccharomyces boullardi 2 hrs away from nystatin/candibactin/diflucan. Cirs-Wkcp-AU ([employer] [facility]) Take 1 capsule, 2 times daily with 4 oz or more of water. Glutathione (Planet Labs) - Liver support/detox Use 8 pumps daily , divided doses through out the day. (2 pumps = 100 mg Glutathione). Work up slowly to the higher dose. B-Complex Plus (Pure Encapsulations) Take 2 capsules by mouth daily with food. Multi t/d 60 ct. (Pure Encapsulations) - multivitamin Take 1 capsule by mouth twice daily with meals. OmegaGenics EPA-DHA 2400 (High Concentrate EPA/DHA liquid) ([facility]) Take one teaspoon (5 ml) 1 times daily with food UT Synergy (RocketOn) antibacterial Take 1 capsule by mouth twice daily. Brain Misael Capsules (RocketOn) Take 2 tablets by mouth w MEALS. Neuromag ( RocketOn ) 90 ct Take 3 capsules per [...] 22.31 kg/(m^2). Bioelectrical Impedance Analysis Results by [employer] Recent Results from: 03/18/22 at 13:34 [...] Fungal dysbiosis markers:arabinose 55 Toxin/detox markers: high Shannon-3 Index: 4.3 Glutathione level:998 Lipid peroxides:8.5 Toxic [...] I recommend the supplements from the [facility] Gush[employer] Living Store Online Store at [email or web address].[email or web address]/ as we have thoroughly evaluated the research and use only highest quality supplements. Please use code: functional. Future Plans: Follow up: Please schedule a follow up visit with the following Caregivers: Provider: [address] Montero in person LIFESTYLE PRESCRIPTION Functional Nutrition: Per service greeter Sleep: Sleep goal for most adults is [...] Health Coaching: Please consider scheduling with our [place] [facility] health coaches for a phone or virtual visit for accountability, goal setting and help with behavior regional climate change analyst the next 6-8 weeks to be successful with your goals. [phone]. Smart phone apps to begin a meditative [...] on your diet plan discussed with our service greeter, allowing for gentle detoxification and decreasing inflammation - while we are gathering your lab results and combining those with your complete history to formulate a very personalized treatment plan. LAB results: Due to the complexity of the testing performed, we are not able to review labs via BigStringt or over the phone, but please know, [...] Also make sure to schedule with the service greeter (this will not happen automatically) as you [...] appointment. You can access them on the Cr[employer] website and it can be beneficial if you review them prior to your next visit. www.[email or web address] Media.net. Read about NutrEval if this was ordered. *Evita Calderon MD I spent a total of 30 minutes on the date of the service which included essr-jp-yudv patient care, completing clinical documentation, obtaining and/or reviewing separately obtained history, performing a medically appropriate examination, counseling and educating the patient/family/caregiver and ordering medications, tests, or procedures. documented in this encounter [facility] 03-02-2022 Instructions EMMA Smalls - 03/02/2022 [...] in more information, contact our office at [phone]. We are happy to hear that Orestes [...] providers located near your home: Sarah Morataya [facility] & Adriana Andrews [facility], [address]. ([phone]). When there is a diagnosis of dementia, no matter the type, we encourage families to educate themselves, learn communication tips, and learn ways to adjust expectations over time. There are many resources available online. Three excellent resources are: The Alzheimer's Association (web site: alz.org/corado) available 24 hours a day, 7 days per week. Contact: Local: ; Toll free: [phone] We recommend family explore the Alzheimer's Association website to learn more about managing behavioral symptoms. You can click on the following tabs to gather more information on managing specific behaviors. Click on HELP AND SUPPORT -> CAREGIVING -> STAGES AND BEHAVIOR Family Caregiver Wickes (web site: Caregiver.org) [employer]CA Abel-- a secure online solution for quality information, support, and resources for family caregivers. Contact: Toll-free number: [phone] Alzheimers.gov Find Alzheimer disease and related dementias [...] additional information is needed, please call our healthcare social worker EMMA Smalls at [phone]. As per our discussion of advanced directives, we understand you have these documents in place which is excellent. We have obtained a copy that will be scanned into your medical record. We would like you to return to [facility] for a follow up visit in 9-12 months. Our office can be reached by calling [phone] Option 1. Sincerely, MD Philomena Hampton RN Tangy Kirtz, EMMA Turner documented in this encounter [facility] 03-02-2022 Nurse Note Ann Marie Hill is a 81 year old year old right handed woman Accompanied by: spouse. 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 Pt states that she is here for a check-up Vital Signs: BP 115/53 (BP Site: Left Arm, BP Position: Sitting, BP Cuff Size: Regular Adult) Pulse 75 Wt 56.6 kg (124 lb 12.8 oz) BMI 22.83 kg/m Philomena Mondragon RN documented in this encounter [facility] 03-02-2022 History of Presen t illness Narrative Reason for Consult: Alzheimer's dementia I had the pleasure of seeing this 81 year old year old female at the [facility]. The patient is referred by Evita Yinlid chris [place] [phone] Patient is accompanied by and information obtained [...] are local; other two sons live in [place] and [place]). Housing: Lives with spouse Pt is occasionally left home alone if she is sleeping Agencies involved: Caregiver from [facility] visits once per week to stay with the pt while spouse runs errands. Shinto friends also assist. ADL'S: Independent with dressing, [...] saccharomyces boullardi 2 hrs away from nystatin/candibactin/diflucan. Heam-Mikz-DC (Emulate) Take 1 capsule, 2 times daily with 4 oz or more of water. Glutathione (Planet Labs) - Liver support/detox Use 8 pumps daily , divided doses through out the day. (2 pumps = 100 mg Glutathione). Work up slowly to the higher dose. B-Complex Plus (Pure Encapsulations) Take 2 capsules by mouth daily with food. Multi t/d 60 ct. (Pure Encapsulations) - multivitamin Take 1 capsule by mouth twice daily with meals. OmegaGenics EPA-DHA 2400 (High Concentrate EPA/DHA liquid) ([facility]) Take one teaspoon (5 ml) 1 times daily with food UT Synergy (RocketOn) antibacterial Take 1 capsule by mouth twice daily. Brain Misael Capsules (RocketOn) Take 2 tablets by mouth w MEALS. Neuromag ( RocketOn ) 90 ct Take 3 capsules per [...] or tenderness Neurological Exam Brief Neuropsychiatric Evaluation: Gonzales Cognitive Assessment (MoCA) Version 1 Total Score: [...] which included preparing to see the patient, easd-ub-faki patient care, performing a medically appropriate examination, completing clinical documentation, and on counseling/ eductaing the patient and the family. Han Britton MD documented in this encounter [facility] 01-31-2022 Hospital Discharg e instructions Patient [...] reconstructed. Follow these instructions at home: Take vowr-yhg-rvgvwwy and prescription medicines only as told by [...] 10/21/2016 Document Revised: 05/08/2019 Document Reviewed: 05/08/2019 [employer] Sales Patient Education CartiCure. Follow Up Care 08/02/2021 15:26:51 With:GENO WATTS, Kunal Heller, URL Address: [facility] [address] , [place] [address]- [phone] When: Unknown [facility] Evaluation + Plan note Future Appointments Appointment Date:08/08/2022 02:45:00 PM Scheduled Provider:Kunal LORA MD Location:[facility] Appointment Type:URO Office Visit [facility] Evaluation + Plan note Future Appointments Appointment Date:08/10/2022 08:45:00 AM Scheduled Provider: Location:[facility] Appointment Type:URO Nurse Visit Appointment Date:04/17/2023 02:30:00 PM Scheduled Provider[facility] Office Visit [facility] Evaluation + Plan note Future Appointments Appointment Date:04/17/2023 02:30:00 PM Scheduled Provider:Kunal LORA MD Location:[facility] Appointment Type:URO Office Visit [facility] Evaluation + Plan note Future Appointments Appointment Date:04/24/2023 02:15:00 PM Scheduled Provider:Kunal LORA MD Location: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 Alzheimer's dementia with behavioral disturbance, unspecified timing of dementia onset documented in this encounter [facility] note* Diagnosis Memory change- Primary [...] disturbance (HCC) [facility] Diagnosis 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 Unspecified vitamin B deficiency Chemical exposure Contact with and (suspected) exposure to other potentially hazardous chemicals Poor diet Unspecified nutritional deficiency Impaired nutrient utilization [facility] Diagnosis 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 Unspecified vitamin B deficiency Poor diet Unspecified nutritional deficiency Dietary counseling and surveillance Dietary surveillance and counseling [facility] Diagnosis Memory change- Primary Memory loss Sundowning Reactive confusion Poor diet Unspecified nutritional deficiency Chemical exposure Contact with and (suspected) exposure to other potentially hazardous chemicals [facility] Diagnosis 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 Sundowning Reactive confusion Dietary counseling and surveillance Dietary surveillance and counseling [facility] Diagnosis Carotid stenosis, bilateral Occlusion and stenosis of carotid artery without mention of cerebral infarction Benign hypertension Essential hypertension, benign documented in this encounter [facility] Work Phone: Evaluation note* Diagnosis Carotid stenosis, bilateral Occlusion and stenosis of carotid artery without mention of cerebral infarction Benign hypertension Essential hypertension, benign documented in this encounter [facility] Work Phone: History of Present illness Narrative* [...] reviewed with her her recent lab work -[facility] [address] DO Work Phone: History of Present [...] me change in cardiac status or symptoms [facility] 250 DO Work Phone: History of Present [...] try to retrieve her recent lab work [facility] [employer] 250 DO Work Phone: Hospital course Narrative No data available for this section [facility] Hospital Discharge instructions No data available for this section [facility] progress note No data available for this section [facility] Summary Purpose Family History No Family History [...] FoundDocuments on File Type Date Recorded Patient Rn Interventional Expl anation Advance Directive(s) 03/02/2022 2:05 PM Ad torres Directive Documents on File Type Date Recorded Patient Rn Interventional Expl anation Advance Directive(s) 03/02/2022 2:05 PM [...] duplex bilateral Mary Anne Snow MD [address] [place] [address], [address] [address] Referral ID Status Reason Start Date Expiration Date Visits Requested Visits Authorized [id number] Authorized Perform Procedure 06/25/2023 12/22/2023 1 1 Specialty Diagnoses / Procedures Referred By Contac t Referred To Contact Psychiatry / ADULT PSYCHIATRY Diagnoses Alzheimer's dementia with behavioral disturbance, unspecified timing of dementia onset Procedures CONSULT TO PSYCHIATRY OFFICE/OUTPATIENT [facility] 60-74 MINUTES Evita Calderon MD [address] [place] [address] Hemal Hopper MD [address] [place] [address] Referral ID Status Reason Start Date Expiration Date Visits Requested Visits Authorized [id number] Pending Review PCP Requested Referral 06/17/2022 06/17/2023 1 1 Specialty Diagnoses / Procedures Referred By Contac t Referred To Contact [facility] Diagnoses Cognitive communication deficit Procedures CONSULT TO SPEECH THERAPY OFFICE/OUTPATIENT [facility] 60-74 MINUTES Han Britton MD [address] [place] [address] [facility] [place] [address] Referral ID Status Reason Start Date Expiration Date Visits Requested Visits Authorized [id number] Pending Review Auto-Generat ed Referral 03/02/2022 03/02/2023 1 1 Additional Source Comments INFORMATION SOURCE (unrecogn ized section and content) DATE CREATED AUTHOR 04/03/2018 [facility] Healthcare DATE CREATED AUTHOR AUTHOR'S ORGANIZ ATION 06/25/2020 [facility] DATE CREATED AUTHOR AUTHOR'S ORGANIZ ATION 11/07/2022 [facility] DATE CREATED AUTHOR AUTHOR'S ORGANIZ ATION 05/22/2023 [facility] DATE CREATED AUTHOR AUTHOR'S ORGANIZ ATION 06/07/2023 [facility] DATE CREATED AUTHOR AUTHOR'S ORGANIZ ATION 06/07/2023 [facility] DATE CREATED AUTHOR AUTHOR'S ORGANIZ ATION 07/23/2023 [facility] DATE CREATED AUTHOR AUTHOR'S ORGANIZ ATION 09/22/2023 [facility] EPIC Source Comments (unrecognize d section and content) In the event this informatio n is protected by the Federal Confidentiality of Alcohol and Drug Abuse Patient Records regulations: The Federal rules restrict any use of the information to criminally investigate or prosecute any alcohol or drug abuse patient.[facility] the event this information is protected by the Federal Confidentiality of Alcohol and Drug Abuse Patient Records regulations: The Federal rules restrict any use of the information to criminally investigate or prosecute any alcohol or drug abuse patient.[facility] Hospital[facility] the event this information is protected by the Federal Confidentiality of Alcohol and Drug Abuse Patient Records regulations: The Federal rules restrict any use of the information to criminally investigate or prosecute any alcohol or drug abuse patient.[facility] Hospital[facility] the event this information is protected by the Federal Confidentiality of Alcohol and Drug Abuse Patient Records regulations: The Federal rules restrict any use of the information to criminally investigate or prosecute any alcohol or drug abuse patient.[facility] Hospital[facility] the event this information is protected by the Federal Confidentiality of Alcohol and Drug Abuse Patient Records regulations: The Federal rules restrict any use of the information to criminally investigate or prosecute any alcohol or drug abuse patient.[facility] Hospital[facility] the event this information is protected by the Federal Confidentiality of Alcohol and Drug Abuse Patient Records regulations: The Federal rules restrict any use of the information to criminally investigate or prosecute any alcohol or drug abuse patient.[facility] Hospital[facility] the event this information is protected by the Federal Confidentiality of Alcohol and Drug Abuse Patient Records regulations: The Federal rules restrict any use of the information to criminally investigate or prosecute any alcohol or drug abuse patient.[facility] Hospital[facility] the event this information is protected by the Federal Confidentiality of Alcohol and Drug Abuse Patient Records regulations: The Federal rules restrict any use of the information to criminally investigate or prosecute any alcohol or drug abuse patient.[facility] Hospital[facility] the event this information is protected by the Federal Confidentiality of Alcohol and Drug Abuse Patient Records regulations: The Federal rules restrict any use of the information to criminally investigate or prosecute any alcohol or drug abuse patient.[facility] Hospital[facility] the event this information is protected by the Federal Confidentiality of Alcohol and Drug Abuse Patient Records regulations: The Federal rules restrict any use of the information to criminally investigate or prosecute any alcohol or drug abuse patient.[facility] Hospital[facility] the event this information is protected by the Federal Confidentiality of Alcohol and Drug Abuse Patient Records regulations: The Federal rules restrict any use of the information to criminally investigate or prosecute any alcohol or drug abuse patient.[facility] Hospital[facility] the event this information is protected by the Federal Confidentiality of Alcohol and Drug Abuse Patient Records regulations: The Federal rules restrict any use of the information to criminally investigate or prosecute any alcohol or drug abuse patient.[facility] HospitalIn the event this information is protected by the Federal Confidentiality of Alcohol and Drug Abuse Patient Records regulations: The Federal rules restrict any use of the information to criminally investigate or prosecute any alcohol or drug abuse patient.[facility] HospitalIn the event this information is protected by the Federal Confidentiality of Alcohol and Drug Abuse Patient Records regulations: The Federal rules restrict any use of the information to criminally investigate or prosecute any alcohol or drug abuse patient.[facility] HospitalIn the event this information is protected by the Federal Confidentiality of Alcohol and Drug Abuse Patient Records regulations: The Federal rules restrict any use of the information to criminally investigate or prosecute any alcohol or drug abuse patient.[facility] HospitalIn the event this information is protected by the Federal Confidentiality of Alcohol and Drug Abuse Patient Records regulations: The Federal rules restrict any use of the information to criminally investigate or prosecute any alcohol or drug abuse patient.[facility] HospitalIn the event this information is protected by the Federal Confidentiality of Alcohol and Drug Abuse Patient Records regulations: The Federal rules restrict any use of the information to criminally investigate or prosecute any alcohol or drug abuse patient.[facility] HospitalIn the event this information is protected by the Federal Confidentiality of Alcohol and Drug Abuse Patient Records regulations: The Federal rules restrict any use of the information to criminally investigate or prosecute any alcohol or drug abuse patient.[facility] Care Teams (unrecognized sec tion and content) Floater Operator Relationship Specialty Start Date End Date Meng Prater MD [address] [place] [address] PCP - General Family Practice 07/15/20 Floater Operator Relationship Specialty Start Date End Date Meng Prater MD [address] [place] [address] PCP - General Family Practice 07/15/20 Floater Operator Relationship Specialty Start Date End Date Meng Prater MD [address] [place] [address] PCP - General Family Practice 07/15/20 Floater Operator Relationship Specialty Start Date End Date Meng Prater MD [address] [place] [address] PCP - General Family Practice 07/15/20 Floater Operator Relationship Specialty Start Date End Date Meng Prater MD [address] [place] [id number] PCP - General Family Medicine 07/15/20 Floater Operator Relationship Specialty Start Date End Date Meng Prater MD [address] [place] [address] PCP - General Family Medicine 07/15/20 Floater Operator Relationship Specialty Start Date End Date Meng Prater MD [address] [place] [id number] PCP - General Family Medicine 07/15/20 Floater Operator Relationship Specialty Start Date End Date Meng Prater MD [address] [place] [address] PCP - General Family Medicine 07/15/20 Floater Operator Relationship Specialty Start Date End Date Meng Prater MD [address] [place] [id number] PCP - General Family Medicine 07/15/20 Floater Operator Relationship Specialty Start Date End Date Meng Prater MD PCP - General Family Medicine 07/15/20 Floater Operator Relationship Specialty Start Date End Date Meng Prater MD PCP - General Family Medicine 07/15/20 Floater Operator Relationship Specialty Start Date End Date Meng Prater MD PCP - General Family Medicine 07/15/20 Floater Operator Relationship Specialty Start Date End Date Meng Prater MD PCP - General Family Medicine 07/15/20 Floater Operator Relationship Specialty Start Date End Date Meng Prater MD PCP - General Family Medicine 07/15/20 Floater Operator Relationship Specialty Start Date End Date Meng Prater MD PCP - General Family Medicine 07/15/20 Floater Operator Relationship Specialty Start Date End Date Meng Prater MD PCP - General Family Medicine 07/15/20 Floater Operator Relationship Specialty Start Date End Date Meng Prater MD [address] [place] [address] PCP - General 09/11/19 Floater Operator Relationship Specialty Start Date End Date Meng Prater MD [address] [place] [address] PCP - General 09/11/19 Reason for Visit (unrecogniz ed section and content) Reason Comments New Patient Evaluation Specialty Diagnoses / Procedures Referred By Contac t Referred To Contact Neurology / NEUROLOGY Diagnoses Alzheimer's dementia with behavioral disturbance, unspecified timing of dementia onset (HCC) Procedures CONSULT TO NEUROLOGY NEW PATIENT VISIT LEVEL 5 Evita Calderon MD [address] [place] [address] Neur [facility] [address] [place] [address] Referral ID Status Reason Start Date Expiration Date Visits Requested Visits Authorized [id number] Pending Review PCP Requested Referral 04/01/2021 04/01/2022 1 1 Reason Comments Established Patient Reason Comments Established Patient Memory Loss New Patient Reason Comments Patient Question Reason Comments Appointment Specialty Diagnoses / Procedures Referred By Toña t Referred To Contact Cardiology Diagnoses Carotid stenosis, bilateral Benign hypertension Procedures Vascular US carotid artery duplex bilateral Mary Anne Snow MD [address] [facility] [address], [address] [address] Referral ID Status Reason Start Date Expiration Date Visits Requested Visits Authorized [id number] Authorized Perform Procedure 06/25/2023 12/22/2023 1 1 [...] BE BASED ON THE PRIMARY CLINICAL RECORDS. [facility] [employer] [facility]. provides no warranty or guarantee of the accuracy or completeness of information in this document.
[2023-12-12 10:09] LABS: Bilirubin Urine NEGATIVE (NEGATIVE); Blood Urine TRACE-I (NEGATIVE); Clarity Urine CLEAR (CLEAR); Color Urine LT. YELLOW (YELLOW); Glucose Urine UA NEGATIVE (NEGATIVE); Ketones Urine NEGATIVE (NEGATIVE); Leukocyte Esterase Urine LARGE (NEGATIVE); Nitrite Urine POSITIVE (NEGATIVE); Protein Urine NEGATIVE (NEG/TRACE); Urobilinogen Urine 0.2 EU/dL (0.2-1.0)
[2023-12-12 10:22] LABS: Bacteria Urine MODERATE #/HPF (NONE SEEN); Cast Seen? NONE SEEN #/LPF (NONE SEEN); Crystals Seen? None Seen #/HPF (None Seen); Mucus Urine NONE SEEN (NONE SEEN); RBC Urine 0-2 #/HPF (0-2); Squamous Epithelial Cell Urine FEW #/LPF (NONE/RARE); WBC Urine 20-50 #/HPF (NONE SEEN)
[2023-12-12 10:23] LABS: Urine Culture Indicated ALREADY ORDERED
== END 2023-12-12 08:39 | disposition home or self-care (01) ==
LOC: LAB 08:38
PROVIDERS: PCP Family Medicine; Visit Provider Family Medicine
DX: R39.15 Urgency of urination (principal)
CPT/HCPCS: 81001; 87086; 87150; 87186

== ENCOUNTER 2024-05-08 04:42 | Outpatient (REF) | payer MEDICARE, SELFPAY ==
--- OUTSIDE RECORDS SUMMARY | 2024-05-03 02:34 | XMS_ITS | CCD ---
Author Organization [facility] Care Team Providers Care Director [employer] Name Role Phone MARY ANNE SNOW Unavailable Unavailable MARY ANNE SONW Unavailable Unavailable Savana Prater Unavailable Unavailable Unavailable Savana Prater MD Primary Care Provider [phone] Savana Prater Primary Care Physician Savana Prater MD Primary Care Provider [phone] Savana Prater MD Primary Care Provider [phone] DR SAVANA PRATER Admitting Unavailable HOY, DR SAWANT Attending Unavailable HOY, DR SAWANT Consulting Unavailable HOY, DR SAWANT Primary Care Unavailable DIAB, NATALIE Attending Unavailable DIABNATALIE Consulting Unavailable NICHOLAS NATALIE Admitting Unavailable JOSI, DR SAWANT Primary Care Unavailable JOSI, DR SAWANT Primary Care Unavailable JOSI, DR SAWANT Admitting Unavailable SHERITAY, DR SAWANT Attending Unavailable HOY, DR SAWANT Consulting Unavailable JOSI, DR SAWANT Primary Care Unavailable JOSI, DR SAWANT Admitting Unavailable JOSI, DR SAWANT Attending Unavailable SHERITAY, DR SAWANT Consulting Unavailable ZIEBER, DR SAMM Heller Consulting Unavailable SHERITAY, DR SAWANT Primary Care Unavailable JOSI, DR SAWANT Admitting Unavailable JOSI, DR SAWANT Attending Unavailable JOSI, DR SAWANT Consulting Unavailable WEST, DR ALEXIS Elizabeth Consulting Unavailable Savana Prater MD Primary Care Provider [phone] Mary Anne Snow Referring Unavaila sera Snow, Dr. Zhao Attending Unavaila Dr. Savana Muniz Primary Care Unavail able ELLEN COOK Admitting Unavailable ELLEN COOK Attending Unavailable ELLEN COOK Attending Unavailable Kunal LORA Attending Unavailable Kunal LORA Attending Unavailable Leonor Phillpis Attending Unavailable Kunal LORA Attending Unavailable Savana Prater MD Primary Care Provider [phone] MAUREEN BALLESTEROS Attending Unavailable MAUREEN BALLESTEROS Referring Unavailable Savana Prater MD Primary Care Provider [phone] Festus Grimes MD Primary Care Provider ARAMIS NASCIMENTO Consulting Unavailable SAVANA PRATER Primary Care Unavailable ARVIN GOINS Admitting Unavailable AKI COOK Attending Unavailable Unavailable Primary Care Provider UnavailSUSI Floyd Attending Unavailable ZO BLACKMON Attending Unavailable Torri Lambert RN Unavailable Unavailable Savana Prater MD Primary Care Provider [phone] HELIO GOFF Attending Unavailable SAVANA PRATER Primary Care Unavailable SAVANA PRATER Primary Care Unavailable CHRISTIANA MONTERO Attending Unavailable SHELLEY MITCHELL Attending Unavailable SAVANA RPATER Primary Care Unavailable ARAMIS JIMENES Attending Unavailable SAVANA PRATER Primary Care Unavailable MELITON SANCHEZ Attending Unavailable FESTUS GRIMES Primary Care Unavailable MAYANK HANSON Attending SAVANA Harris Primary Care Unavailable MAYANK HANSON Attending SAVANA Harris Primary Care Unavailable MAYANK HANSON Attending FESTUS Antonio Primary Care Unavailable SAVANA PRATER Primary Care Unavailable FESTUS GRIMES Primary Care Unavailable Allergies Allergy Classification Reported Allergen(s) Allergy Type Date of Onset Reaction(s) Facility (16 sources) Penicillins; Translations: [Penicillins] Allergy to drug (finding) 09-03-20 13 Unknown (qualifier value) [facility] y 250 DO Work Phone: (5 sources) Sulfamethoxazole; Translations: [sulfa] Drug Allergy Rash [facility] y 250 DO Work Phone: (20 sources) Ciprofloxacin; Translations: [CIPROFLOXACIN] Drug Allergy 06-13-20 19 Unknown [facility] (3 sources) Penicillins Drug Allergy 09-03-20 13 Hives [facility] (20 sources) Sulfonamides (Antibiotic); Translations: [SULFA (SULFONAMIDE ANTIBIOTICS)] Drug Allergy 06-13-20 19 Rash [facility] (8 sources) Sulfonamides (Antibiotic); Translations: [sulfa drugs] Drug allergy Unknown (qualifier value) [facility] (20 sources) Penicillins Drug Allergy 09-03-20 13 Hives [facility] (12 sources) NITROFURANTOIN, MACROCRYSTALS / Nitrofurantoin, Monohydrate; Translations: [nitrofurantoin] Drug Allergy 09-14-20 21 Itching [facility] (1 source) Ciprofloxacin Drug Allergy [facility] (1 source) Penicillins Drug allergy (disorder) 09-03-20 13 [facility] (1 source) Sulfonamides (Antibiotic) Drug allergy (disorder) [facility] (15 sources) Angiotensin-conver ting enzyme inhibitor agent; Translations: [YULI INHIBITORS] Drug Allergy 12-25-19 24 Unknown [facility] (5 sources) Angiotensin-conver ting enzyme inhibitor agent Drug Allergy 12-25-[address] [facility] (5 sources) Nitrofurantoin Drug Allergy 09-14-20 [address] [facility] (5 sources) Penicillins Drug Allergy 09-03-20 13 Hives, Rash [facility] (1 source) NITROFURANTOIN MONOHYD/M-CRYST; Translations: [NITROFURANTOIN MONOHYD/M-CRYST] Propensity to adverse reactions to drug (disorder) 09-14-20 21 [facility] [place] [facility] Medications Current Medications Medication Drug Class(es) Dates Sig (Normalized) Sig (Original) acetaminophen 500 mg oral tablet (8 sources) Start: 02-07-2024 take 2 tablets by mouth every six hours as needed acetaminophen (TYLENOL) 500 mg tablet Take 2 tablets by mouth every 6 hours as needed for pain. 0 02/07/2024 Active amLODIPine 10 mg oral tablet (20 sources) Dihydropyridine [employer] [place] Start: 10-21-2019 take 1 tablet by mouth once daily Norvasc 10 mg Tab 10 mg = 1 tab(s), Oral, Daily, # 30 tab(s), Refills(s) 0 Start Date: 10/21/19 Status: Ordered Start: 06-13-2019 End: 12-26-2023 take 1 tablet by mouth twice daily amLODIPine (NORVASC) 5 mg tablet Take 1 tablet by mouth twice daily. 0 06/13/2019 12/26/2023 Discontinued (Erroneous entry) Comment on above: Take 1 tablet by terrence th twice daily. Take 10 mg by mouth once daily. Ascorbic Acid (20 sources) Vitamin C Start: 05-06-2019 Vitamin C See Instructions, Daily, Refills(s) 0 Start Date: 05/06/19 Status: Ordered take 1 tablet by terrence th once daily Ascorbic Acid (VITAMIN C) 1,000 mg tablet Take 1,000 mg by mouth once daily. 0 Active End: 12-26-2023 Ascorbic Acid 1,000 mg TbER Take by mouth. 0 12/26/2023 Discontinued (Erroneous entry) Comment on above: Take by mouth. Take 1,000 mg by terrence th once daily. aspirin 81 mg oral capsule (20 sources) [...] Take 81 mg by mouth once daily. 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 0 02/04/2023 12/26/2023 Discontinued (Erroneous entry) Start: 02-04-2023 take 1 capsule by mo uth once daily at mealtime B-Complex Plus (Pure [...] by mo uth daily with food. Brain Misael Capsules (Technorides) (12 sources) Start: 07-08-2020 End: 02-04-2023 take 2 tablets by mouth at mealtime Brain Misael Capsules (Technorides) Take 2 tablets by mouth w MEALS. 0 07/08/2020 02/04/2023 Discontinued Start: 07-08-2020 take 2 tablets by mo uth at mealtime Brain Misael Capsules (Technorides) Take 2 tablets by mouth w MEALS. 0 07/08/2020 Active Comment on above: Take 2 tablets by mo uth w MEALS. cefepime 1000 mg injection (1 source) Cephalosporin Antibacterial Start: End: inject 100 mL intravenously every twelve hours cefepime (MAXIPIME) 1 g in D5W 100 mL Inject 100 mL intravenously every 12 hours for 8 doses. 800 mL 0 02/08/2024 02/12/2024 Active cephalexin 500 mg oral capsule (1 source) Cephalosporin Antibacterial Start: End: take 1 capsule by mouth twice daily cephalexin (Keflex) 500 MG capsule Take 1 capsule (500 mg) by mouth 2 times daily for 7 days. 14 capsule 0 01/30/2024 02/06/2024 Active Chlorella (Biotics) (3 sources) Start: End: Chlorella (Biotics) Indications: Memory change Take three capsules each day. 0 05/19/2023 12/26/2023 Discontinued (Erroneous entry) Start: 05-19-2023 Chlorella (Bio tics) Indications: Memory change Take three capsules each day. 0 05/19/2023 Active Comment on above: Take three capsules each day. cholecalciferol 0.05 mg oral tablet (20 sources) Vitamin D take 1 tablet by mouth once daily cholecalciferol (VITAMIN D3) 50 mcg (2,000 unit) tablet Take 2,000 Units by mouth once daily. 0 Active take 1 tablet by mouth in the mo rning cholecalciferol (Vitamin D-3) 50 MCG (2000 UT) tablet Take 2,000 Units by mouth in the morning. 0 Active take 1 capsule by mouth once temo ly Vitamin D3 25 MCG (1000 UT) Oral Capsule TAKE 1 CAPSULE Daily Quantity: 0 Refills: 0 Ordered: 09-Aug-2021 DO Active Comment on above: Take 2,000 Units by mouth once daily. Clobetasol (7 sources) Corticosteroid Start: apply 45 g topically every week as [...] 0 Start Date: 11/23/20 Status: Ordered Pristiq (20 sources) Serotonin and Norepinephrine Reuptake Inhibitor Start: 08-08-2022 Pristiq Oral, Daily, Refills(s) 0 Start Date: 08/08/22 Status: Ordered take 1 tablet by terrence th once daily, then take 1 tablet by mouth every twenty-four hours desvenlafaxine ER (PRISTIQ) 50 mg 24 hr tablet Take 50 mg by mouth once daily. 0 Active take 1 tablet by terrence th every twenty-four hours in the morning desvenlafaxine (Pristiq) 50 MG 24 hr tab let Take 50 mg by mouth in the morning. 0 Active Pristiq TB24 one daily Quantity: 0 Refills: 0 Ordered: 06-Jun-2023 DO Active Comment on above: Take 50 mg by mouth once daily. docusate sodium 50 mg / sennosides, half-way 8.6 mg oral tablet (2 sources) Start: 02-07-20 End: 02-17-20 take 1 tablet by mouth twice daily senna-docusate (SENNA-S) 8.6-50 mg per tablet Take 1 tablet by mouth two times a day for 10 days. Hold for loose stool 20 tablet 0 02/07/2024 02/17/2024 Active 0.4 ml enoxaparin sodium 100 mg/ml prefilled syringe (6 sources) Low Molecular Weight Heparin Start: 02-08-20 End: 02-29-20 inject 40 mg by subcutaneous injection every twenty-four hours enoxaparin (LOVENOX) 40 mg/0.4 mL Inject 0.4 mL subcutaneously every 24 hours for 21 days. Patient should start on February 08, 2024. 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 (2 pumps = 100 mg Glutathione) 0 02/04/2023 Active Comment on above: Use 20 pumps daily ( 1000mg) divided doses through out the day. 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 (1 [id number]=894nm) 0 02/04/2023 Active Comment on above: Take 1 capsule 3 fidel es daily in divided doses between meals. (1 duvfkjz=026as) hydrOXYzine hydrochloride 25 mg oral tablet (16 sources) Antihistamine take 1 tablet by mouth every eight hours as needed hydrOXYzine HCl (ATARAX) 25 mg tablet Take 25 mg by mouth three times a day as needed for anxiety. 0 Active take 1 tablet by terrence every eight hours as needed hydrOXYzine HCl (Atarax) 25 MG tablet Ta ke 25 mg by mouth every 8 hours as needed. 0 Active Comment on above: Take 25 mg by mouth three times a day as needed for anxiety. Lavserge WS 1265 ([employer]) sleep/calming/anxiety (12 sources) Start: 07-08-2020 End: 02-04-2023 Lavela WS 1265 ([employer]) sleep/calming/anxiety 1 at bedtime - may also use 1 in AM for relaxation/anxiety 0 07/08/2020 02/04/2023 Discontinued Start: 07-08-2020 Lavela WS 1265 ([employer]) sleep/calming/anxiety 1 at [...] by mo uth twice daily with meals. Neuromag ( Technorides ) 90 ct (19 sources) Start: 07-08-2020 End: 12-26-2023 Neuromag ( Technorides ) 90 ct Take 3 capsules per day or as directed by a healthcare professional. 0 07/08/2020 12/26/2023 Discontinued (Erroneous entry) Start: 07-08-2020 Neuromag ( [facility] ) 90 ct Take 3 capsules per day or as directed by a healthcare professional. 0 07/08/2020 Active Comment on above: Take 3 capsules per day or as directed by a healthcare professional. nitrofurantoin, macrocrystals 25 mg / nitrofurantoin, monohydrate 75 mg oral capsule (3 sources) Nitrofuran Antibacterial Start: 01-27-20 End: 02-03-20 take 1 capsule by mouth twice daily nitrofurantoin, macrocrystal-monohydr ate, (Macrobid) 100 MG capsule Indications: Acute cystitis without hematuria Take 1 capsule (100 mg) by mouth 2 times daily for 7 days. 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) Take one teaspoon (5 ml) 1 times daily with food 0 07/08/2020 12/26/2023 Discontinued (Erroneous entry) Start: 07-08-2020 OmegaGenics EP A-DHA 2400 (High Concentrate EPA/DHA liquid) (GiveLoop) Indications: ASCVD (arteriosclerotic cardiovascular disease) , Hyperlipidemia, unspecified hyperlipidemia type , Hypertension, unspecified type , 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 0 02/04/2023 12/26/2023 Discontinued (Erroneous entry) Start: 02-04-2023 PhytoMulti 60s capsules (Metagenics) Take 2 capsules daily, with meals. 0 02/04/2023 Active Comment on above: Take 2 capsules paul y, with meals. microencapsulated potassium chloride 20 meq extended release oral tablet (9 sources) Start: 4 End: 4 take 1 tablet by mouth once daily potassium chloride ER (KLOR-CON) 20 mEq tablet Take 1 tablet by mouth once daily for 7 days. 7 tablet 0 01/18/2024 01/25/2024 Active potassium chlori de CR (Klor-Con M20) 20 MEQ ER tablet Take 40 mEq by mouth in the morning. 0 Active take 2 tablets by mouth once etmo ly potassium chloride ER (KLOR-CON) 20 mEq tablet Take 40 mEq by mouth once daily. 0 Active Comment on above: Take 40 mEq by mouth once daily. [facility] rosuvastatin calcium 40 mg oral tablet (20 sources) HMG-CoA Reductase Inhibitor Start: 9 End: 5 take 1 tablet by mouth once daily rosuvastatin (CRESTOR) 40 mg tablet Take 40 mg by mouth once daily. 0 04/22/2019 Active Comment on above: Take 40 mg by mouth once daily. ubiquinol 100 mg oral capsule (20 sources) Start: 0 coQ10, ubiquinol, 100 mg cap Take 1 capsule daily with a meal. 60 capsule 2 07/08/2020 Active Comment on above: Take 1 capsule daily with a meal. UT Synergy (Technorides) antibacterial (19 sources) Start: 0 End: 4 take 1 capsule by mouth twice daily UT Synergy (Technorides) antibacterial Take 1 capsule by mouth twice daily. 0 07/08/2020 12/26/2023 Discontinued (Erroneous entry) Start: 07-08-2020 take [address] [facility] twice daily UT Synergy (Technorides) antibacterial Take 1 capsule by mouth twice daily. 0 07/08/2020 Active Comment on above: Take [address] [facility] twice daily. valsartan 80 mg oral tablet (7 sources) Angiotensin 2 Receptor [place] Start: 9 take 1 mg by mouth once daily valsartan 80 mg Tab mg tab(s), Oral, Daily, Refills(s) 0 Start Date: 06/14/19 Status: Ordered vitamin b12 0.1 mg oral tablet (16 sources) Vitamin B12 take 1 tablet by mouth once daily cyanocobalamin (VITAMIN B-12) 100 mcg tab Take 100 mcg by mouth once daily. 0 Active Comment on above: Take 100 mcg by mout h once daily. Vitamin D3 (7 sources) Start: 9 Vitamin D3 Refills(s) 0 Start Date: 05/06/19 Status: Ordered Vitamin E (20 sources) Start: 0 vitamin E Oral, Daily, Refills(s) 0 Start Date: 10/21/19 Status: Ordered take 1 capsule by mouth once temo ly vitamin E, dl,tocopheryl acet, (VITAMIN E, DL, ACETATE,) 45 mg (100 unit) capsule Take 45 mg by mouth once daily. 0 Active take 1 capsule by mouth once temo ly Vitamin E 1000 UNIT Oral Capsule TAKE 1 CAPSULE Daily Quantity: 0 Refills: 0 Ordered: 09-Aug-2021 DO Active Comment on above: Take 45 mg by mouth once daily. vitamin E, dl,tocopheryl acet, (VITAMIN E, DL, ACETATE, ORAL) (11 sources) End: 12-26-2023 take 1000 [IU] by mouth once daily vitamin E, dl,tocopheryl acet, (VITAMIN E, DL, ACETATE, ORAL) Take 1,000 Units by mouth once daily. 0 12/26/2023 Discontinued (Erroneous entry) take 1000 [IU] by mouth once temo ly vitamin E, dl,tocopheryl acet, (VITAMIN E, DL, ACETATE, ORAL) Take 1,000 Units by mouth once daily. 0 Active Comment on above: Take 1,000 Units by mouth once daily. Completed/Discontinued Medications Medication Drug Class(es) Dates Sig (Normalized) Sig (Original) ARIPiprazole 2 mg oral tablet (7 sources) Atypical Antipsychotic take 1 tablet by mouth once daily ARIPiprazole (ABILIFY) 2 mg tablet Take 2 mg by mouth once daily. 0 Active Comment on above: Take 2 mg by mouth o nce daily. Brain TABS (3 sources) Brain TABS TAKE [...] : 06-Jan-2021 Active Start: 05-07-2019 take 1 tablet by terrence th twice daily carvedilol (COREG) 12.5 mg tablet Take 12.5 mg by mouth twice daily. 0 05/07/2019 Active Start: 05-06-2019 take 3.125 mg by terrence th twice daily Coreg 6.25 mg Tab 3.125 mg = 0.5 tab(s), Oral, BID, Refills(s) 0 Start Date: 05/06/19 Status: Ordered Comment on above: Take 12.5 mg by mout h twice daily. Glutathione (MobApp[employer]or) - Liver support/detox (8 sources) Start: 12-01-2021 End: 07-25-2022 Glutathione (MobAppCreator) - Liver support/detox Use 8 pumps daily , divided doses through out the day. (2 pumps = 100 mg Glutathione). Work up slowly to the higher dose. 0 12/01/2021 07/25/2022 Discontinued Start: 12-01-2021 Glutathione (Q [employer]) - Liver support/detox Use 8 pumps daily , divided doses through out the day. (2 pumps = 100 mg Glutathione). Work up slowly to the higher dose. 0 12/01/2021 Active Comment on above: Use 8 pumps daily , divided doses through out the day. (2 pumps = 100 mg Glutathione). Work up slowly to the higher dose. ketoconazole 20 mg/ml topical cream (1 source) Azole Antifungal Ketoconazole 2 % External Cream APPLY SPARINGLY TO AFFECTED AREA(S) ONCE DAILY Quantity: 0 Refills: 0 Ordered: 06-Jun-2023 DO Active Lavela WS 1265 80 MG Oral Capsule (3 sources) Lavela WS 1265 8 0 MG Oral Capsule twice daily as needed Quantity: 0 Refills: 0 Ordered: 31-May-2022 DO Active loratadine 10 mg oral tablet (13 sources) End: 02-21-20 take 1 tablet by mouth once daily as needed loratadine (CLARITIN) 10 mg tablet Take 10 mg by mouth once daily as needed. 0 02/21/2024 Discontinued Comment on above: Take 10 mg by mouth once daily. Yyco-Wyxf-CF ([employer]) (8 sources) Start: 12-01-19 End: 07-25-20 Toxa-Udtd-RS (Recombine) Take 1 capsule, 2 times daily with 4 oz or more of water. 0 12/01/2021 07/25/2022 Discontinued Start: 12-01-2021 Egjt-Tvav-BY ( Recombine) Take 1 capsule, 2 times daily with [...] 0 Refills: 0 Ordered: 31-May-2022 DO Active phosphatidylserine (3 sources) take 1 capsule by mouth once daily PHOSPHATIDYLSERINE ORAL Take 1 capsule by mouth once daily. 0 Active take 1 capsule by mouth once temo ly PHOSPHATIDYLSERINE ORAL Take 1 capsule by mouth once daily. 0 Suspended Comment on above: Take 1 capsule by mo uth once daily. Saccharomyces Boulardii (Klaire/Prothera) good yeast (FRIDGE) (8 sources) Start: 2 End: 2 take 2 capsules by mouth once daily Saccharomyces Boulardii (Klaire/Prothera) good yeast (FRIDGE) Take 2 capsules by mouth once daily. Take saccharomyces boullardi 2 hrs away from nystatin/candibactin/ diflucan. 0 12/01/2021 07/25/2022 Discontinued Start: 12-01-2021 take 2 capsules by mouth once daily Saccharomyces Boulardii (Klaire/Prothera ) good yeast (FRIDGE) Take 2 capsules by mouth once daily. Take saccharomyces boullardi 2 hrs away from nystatin/candibactin/diflucan. 0 12/01/2021 Active Comment on above: Take 2 capsules by m out once daily. Take saccharomyces boullardi 2 hrs away from nystatin/candibactin/diflucan. Problems Active Problems Problem Classification Problem Date Documented Date Episodic/Chronic Abdominal pain (12 sources) Suprapubic pain; Translations: [Pelvic and perineal pain] Onset: 01-26-2024 05-06-2019 Episodic Administrative/social admission (2 sources) Patient encounter status; Translations: [Dietary counseling and surveillance] Episodic Anxiety disorders (1 source) Anxiety disorder, unspecified; Translations: [ANXIETY DISORDER UNSPECIFIED] Onset: 11-07-2022 Chronic Bacterial infection; unspecified site (8 sources) Infection due to Pseudomonas aeruginosa; Translations: [Other bacterial infections of unspecified site] Onset: 02-07-2024 02-07-2024 Episodic Cardiac dysrhythmias (10 sources) Ventricular premature beats; Translations: [Other premature beats] Onset: 11-20-2023 01-26-2024 Chronic Coma; stupor; and brain damage (1 source) Drowsy; Translations: [Somnolence] Episodic Conditions associated with dizziness or vertigo (10 sources) Dizziness; Translations: [Dizziness and giddiness] Onset: 11-20-2023 01-26-2024 Episodic Coronary atherosclerosis and other heart disease (20 sources) Arteriosclerotic vascular disease; Translations: [Atherosclerotic heart disease of [place] coronary artery without angina pectoris] Onset: 07-07-2020 [...] and unspecified hyperlipidemia] Onset: 07-07-2020 07-07-2020 Chronic E Codes: Fall (1 source) Unspecified fall, initial encounter; Translations: [Fall, initial encounter] Onset: 02-12-2024 Episodic Essential hypertension (20 sources) Essential hypertension; Translations: [Unspecified essential hypertension] Onset: 07-07-2020 07-07-2020 Chronic Essential hypertension (1 source) Essential hypertension Onset: 07-11-2017 Fracture of upper limb (20 sources) Closed fracture of humerus; Translations: [Displaced comminuted fracture of shaft of humerus, left arm, initial encounter for closed fracture] Onset: 12-25-2023 12-25-2023 Episodic Genitourinary symptoms and ill-defined conditions (20 sources) Dysuria; Translations: [Microscopic hematuria] Onset: 04-17-2023 05-06-2019 Episodic Heart valve disorders (1 source) Nonrheumatic mitral (valve) insufficiency; Translations: [NONRHEUMATIC MITRAL INSUFFICIENCY] Onset: 11-07-2022 Chronic Nonspecific chest pain (14 sources) Chest pain; Translations: [Chest pain, unspecified] Onset: 06-03-2022 Episodic Nutritional deficiencies (1 source) Vitamin D deficiency, unspecified; Translations: [VITAMIN D DEFICIENCY UNSPECIFIED] Onset: 06-05-2022 Chronic Nutritional deficiencies (5 sources) Vitamin B-complex deficiency ; Translations: [Vitamin B deficiency, unspecified] Episodic Occlusion or stenosis of precerebral arteries (12 sources) Bilateral stenosis of carotid arteries; Translations: [Occlusion and stenosis of multiple and bilateral precerebral arteries without mention of cerebral infarction] Onset: 11-20-2023 08-21-2023 Chronic Other aftercare (2 sources) Drug therapy finding; Translations: [Other lobsterman (current) drug therapy] Episodic Other aftercare (1 source) lobsterman (current) use of aspirin; Translations: [DETENTION CURRENT USE OF ASPIRIN] Onset: 11-07-2022 Episodic Other aftercare (1 source) Other lobsterman (current) drug therapy; Translations: [OTH EXCELLENCE SPECIALIST CURRENT DRUG THERAPY] Onset: 11-07-2022 Episodic Other connective tissue disease (2 sources) History of hemiarthroplasty of left hip; Translations: [Presence of left artificial hip joint] 02-21-2024 Chronic Other connective tissue disease (1 source) Presence of left artificial hip joint; Translations: [History of left hip hemiarthroplasty] Onset: 02-21-2024 Chronic Other connective tissue disease (1 source) Pain in right thigh; Translations: [PAIN IN RIGHT THIGH] Onset: 10-08-2022 Episodic Other nervous system disorders (1 source) 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; Translations: [Cognitive communication deficit] Chronic Other nervous system disorders (1 source) Other acute postprocedural pain; Translations: [Post-op pain] Onset: 02-12-2024 Episodic Other non-traumatic joint disorders (4 sources) Pain in right hip; Translations: [PAIN IN RIGHT HIP] Onset: 10-05-2022 Episodic Other nutritional; endocrine; and metabolic disorders (8 sources) Obese class I; Translations: [Obesity, unspecified] Onset: 02-04-2024 02-04-2024 Chronic Other nutritional; endocrine; and metabolic disorders (1 [...] conditions (not mental disorders or infectious disease) (1 source) Imaging result abnormal; Translations: [Abnormal findings on diagnostic imaging of other specified body structures] 03-07-2024 Chronic Other screening for suspected conditions (not mental disorders or infectious disease) (20 sources) Cardiovascular stress test abnormal; Translations: [Other nonspecific abnormal results of function study of cardiovascular system] Onset: 06-05-2022 Episodic Prolapse of female genital organs (17 sources) Prolapse of female genital organs; Translations: [Other female genital prolapse] Onset: 12-26-2023 12-26-2023 Chronic Residual codes; unclassified (4 sources) Non-smoker; Translations: [...] Pure hypercholesterolemia, unspecified / E78.00(ICD-9) Onset: 07-11-2017 Unclassified (1 source) Fall, this morning, back, neck, L arm pain Onset: 12-25-2023 Urinary tract infections (17 sources) Chronic cystitis; Translations: [Other chronic cystitis without hematuria] Onset: 01-31-2022 Chronic Past or Other Problems Problem Classification Problem Date Documented Da te Episodic/Chronic Biliary tract disease (1 source) Chronic cholecystitis; Translations: [CHRONIC CHOLECYSTITIS] Onset: 06-05-2022 Episodic Deficiency and other anemia (1 source) Anemia, unspecified; Translations: [ANEMIA UNSPECIFIED] Onset: 06-05-2022 Episodic Diabetes mellitus without complication (1 source) Other abnormal glucose; Translations: [OTHER ABNORMAL GLUCOSE] Onset: 06-05-2022 Episodic Fluid and electrolyte disorders (16 sources) Hypokalemia; Translations: [Hypokalemia] Onset: 12-28-2023 12-28-2023 Episodic Fracture of neck of femur (hip) (8 sources) Closed fracture of neck of femur; Translations: [Fracture of unspecified part of neck of left femur, initial encounter for closed fracture] Onset: 02-03-2024 Resolved: 02-09-2024 02-03-2024 Episodic Nausea and vomiting (1 source) Nausea with vomiting, unspecified; Translations: [Nausea and vomiting, unspecified vomiting type] Onset: 01-18-2024 Episodic Other gastrointestinal disorders (1 source) Diarrhea, unspecified; Translations: [Diarrhea of presumed infectious origin] Onset: 01-18-2024 Episodic Residual codes; unclassified (16 sources) Delirium; Translations: [Disorientation, unspecified] Onset: 12-26-2023 12-26-2023 Episodic Unclassified (1 source) Occlusion and stenosis of bilateral carotid arteries; Translations: [Occlusion and stenosis of bilateral carotid arteries] Onset: 07-11-2017 Unclassified (1 source) Never smoked tobacco; Translations: [Never a smoker] Urinary tract infections (20 sources) Postinfective urethral stricture of female; Translations: [Postinfective urethral stricture, not elsewhere classified, female] Onset: 01-31-2022 Episodic Results Test Name Value Interpretation Reference Range Facility CNOVon 04-24-2024 CNOV Normal [facility] CNCOon 03-21-2024 CNCO Letter Text Normal [facility] CNOVon 02-21-2024 CNOV Normal [facility] XR Shoulder - left 2 Viewson 02-21-2024 Two views left shoulder demonstrate no change in position of the displaced proximal humerus fracture as compared to initial presentation films. There is increased bone activity within the proximal humerus. No new fracture identified. [facility] RADIOLOGY [facility] Radiology Study observation (narrative) [facility] CNOVon 02-20-2024 CNOV Office Visit (BETYP ) ANN MARIE HILL ([id number]) 1940 F Date Time Provider Department 02/20/24 1:00 PM HELIO GOFF During your visit today, we recorded the following information about you: Blood pressure Weight Height 118/72 76.2 kg 1.575 m Helio Goff, ADMINISTRATIVE ACCOUNTANT.JUNIOR DATA ANALYST 02/20/2024 4:19 PM Signed Female Pelvic Medicine AND Reconstructive Surgery Consult CHIEF COMPLAINT: Ann Marie iHll is a 83 year old female who presents for consultation requested by Self Referred for an opinion regarding Pelvic Organ Prolapse . HISTORY OF PRESENT ILLNESS: Ann Marie presents with daughter, Christos and , Michael. She suffers from Alzheimer's disease and currently resides at [facility] in [place]. She recently underwent surgery for a fractured hip. She has been wearing pessary (incontinence dish) but Christos is very opposed to continuing with these. She reports Ann Marie becomes extremely distressed with pelvic exams. The pessary was recently removed by general HISTORICAL SITE GUIDE. Christos strongly feels this a violation of her mother's body. Ann Marie has been prescribed vaginal estrogen cream but this is difficult to use as Ann Marie is not comfortable with the facility staff placing the cream. Michael had been placing the cream at home which Ann Marie was fine with. Michael would like Ann Marie to return home but that is unlikely given her health and dementia. Ann Marie is in a Broda chair today. Christos reports the biggest issue they face is Ann Marie having trouble emptying bladder. She has frequent UTIs which are being treated empirically by the facility. UTI symptoms usually present with a change/worsening of Ann Marie's cognition. Michael is POA. Medical and Symptom History: HISTORICAL SITE GUIDE HISTORY: Last Pap: NA; Last Mammogram: Her last mammogram was 2022. She has no history of an abnormal mammogram LMP: No LMP recorded. Patient is postmenopausal.; Menopause yes: Menstrual history: NA; Deliveries: History of third or fourth degree laceration: Yes Weight of largest baby: 8.0 Sexual function Sexually active: Not sexually active PFDI-20 (Completed by daughter, Christos) Do you: Usually experience pressure in the lower abdomen? Yes, moderately bothersome (3) Usually experience heaviness or dullness in the pelvic area? Yes, moderately bothersome (3) Usually have a bulge or something falling out that you can see or feel in your vaginal area? Yes, moderately bothersome (3) Ever have to push on the vagina or around the rectum to have or complete a bowel movement? No (0) Usually experience a feeling of incomplete bladder emptying? Yes, quite a bit bothersome (4) Ever have to push up on a bulge in the vaginal area with your fingers to start or complete urination? Yes, not at all bothersome (1) Feel you need to strain too hard to have a bowel movement? Yes, moderately bothersome (3) Feel you have not completely emptied your bowels at the end of a bowel movement? Yes, moderately bothersome (3) Usually lose stool beyond your control if your stool is well formed? No (0) Usually lose stool beyond your control if your stool is loose? No (0) Usually lose gas from the rectum beyond your control? No (0) Usually have pain when you pass your stool? No (0) Experience a strong sense of urgency and have to dai to the bathroom to have a bowel movement? No (0) Does part of your bowel ever pass through the rectum and bulge outside during or after a bowel movement? No (0) Usually experience frequent urination? Yes, quite a bit bothersome (4) Usually experience urine leakage associated with a feeling of urgency, that is, a strong sensation of needing to go to the bathroom? Yes, not at all bothersome (1) Usually experience urine leakage related to coughing, sneezing or laughing? Yes, quite a bit bothersome (4) Usually experience small amounts of urine leakage (that is, drops)? Yes, somewhat bothersome (2) Usually experience difficulty emptying your bladder? Yes, quite a bit bothersome (4) Usually experience pain or discomfort in the lower abdomen or genital region? Yes, quite a bit bothersome (4) Do you have pain associated with your prolapse (not pressure or fullness) Yes, what is your typical prolapse related pain on a scale of 0-10? 7 Where is your pain located? vagina PAST SURGICAL HISTORY Procedure Laterality Date REMOVAL GALLBLADDER REMV CATARACT EXTRACAP,INSERT LENS Bilateral VASCULAR ACCESS TEAM MID-LINE INSERTION (AK) 02/08/2024 PAST MEDICAL HISTORY Diagnosis Date Alzheimer disease (HCC) HTN (hypertension) Hyperlipidemia History reviewed. No pertinent family history. Current Outpatient Medications Medication Sig acetaminophen (TYLENOL) 500 mg tablet Take 2 tablets by mouth every 6 hours as needed for pain. enoxaparin (LOVENOX) 40 mg/0.4 mL Inject 0.4 mL subcutaneously every 24 hours for 21 days. Patient should start on February 08, 2024. (more content not included)... Normal [facility] ED NOTEon 02-13-2024 ED NOTE Normal [facility] ED NOTE HNO ID: [id number] Author: RANDELL NELSON RN Service: Emergency Medicine Author Type: Registered Nurse Type: ED Notes Filed: 02/13/2024 00:09 Note Text: Report called to [place] at [facility] Normal [facility] ALLIED HEALTHon 02-12-2024 ALLIED HEALTH Normal [facility] Basic metabolic 2000 panelon 02-12-2024 Anion gap [Moles/Vol] 13 mmol/L Normal 9-18 [facility] Comment on above: Order Comment: Speci men Type: BLOOD SPECIMENOrdering Facility: [facility] Address: [address] [place] [address] Performed By: #### 2 4321-2 ####[facility] LABORATORYCLIA [id number] [place] [address] [place] Calcium [Mass/Vol] 9.0 mg/dL Normal 8.5-10.2 [facility] Comment on above: Order Comment: Speci men Type: BLOOD SPECIMENOrdering Facility: [facility] Address: [address] [place] [address] Performed By: #### 2 4321-2 ####[facility] LABORATORYCLIA [id number] [place] [address] [place] Chloride [Moles/Vol] 99 mmol/L Normal 97-105 [facility] Comment on above: Order Comment: Speci men Type: BLOOD SPECIMENOrdering Facility: [facility] Address: [address] [place] [address] Performed By: #### 2 4321-2 ####[facility] LABORATORYCLIA [id number] [place] [address] [place] CO2 [Moles/Vol] 24 mmol/L Normal 22-30 [facility] Comment on above: Order Comment: Speci men Type: BLOOD SPECIMENOrdering Facility: [facility] Address: [address] [place] [address] Performed By: #### 2 4321-2 ####[facility] LABORATORYCLIA [id number] [address] STATES OF [facility] Creatinine [Mass/Vol] 0.70 mg/dL Normal 0.58-0.96 [facility] Comment on above: Order Comment: Kristin paige Type: BLOOD SPECIMENOrdering Facility: [facility] Address: [address] [place] [address] Performed By: #### 2 4321-2 ####[facility] LABORATORYCLIA [id number] [place] [id number] [facility] Creatinine and Glomerular filtration rate.predicted panel (S/P/Bld) 86 mL/min/1.73m??? Normal >=60 [facility] Comment on above: Order Comment: Kristin paige Type: BLOOD SPECIMENOrdering Facility: [facility] Address: [address] [place] [address] Result Comment: Felicia mated Glomerular Filtration Rate (eGFR) is calculated using the 2020 CKD-EPI creatinine equation. This equation utilizes serum creatinine, sex, and age as parameters. The creatinine assay has traceable calibration to isotope dilution-mass spectrometry. Refer to KDIGO guidelines for clinical interpretation. In patients with unstable renal function, e.g. those with acute kidney injury, the eGFR may not accurately reflect actual GFR. Performed By: #### 2 4321-2 ####[facility] LABORATORYCLIA [id number] [address] STATES OF [facility] Glucose [Mass/Vol] 142 mg/dL High 74-99 [facility] Comment on above: Order Comment: Kristin paige Type: BLOOD SPECIMENOrdering Facility: [facility] Address: [address] [place] [address] Result Comment: The [place] Diabetes Association (ADA) provides guidance for cutoff values for fasting glucose and random glucose. The ADA defines fasting as no caloric intake for at least 8 hours. Fasting plasma glucose results between 100 to 125 mg/dL indicate increased risk for diabetes (prediabetes).Fasting plasma glucose results greater than or equal to 126 mg/dL meet the criteria for diagnosis of diabetes. In the absence of unequivocal hyperglycemia, results should be confirmed by repeat testing. In a patient with classic symptoms of hyperglycemia or hyperglycemic crisis, random plasma glucose results greater than or equal to 200 mg/dL meet the criteria for diagnosis of diabetes.Reference: Standards of Medical Care in Diabetes 2016, [place] [employer]. Diabetes Care. 2016.39(Suppl 1). Performed By: #### 2 4321-2 ####[facility] LABORATORYCLIA [id number] [address] [place] Potassium [Moles/Vol] 3.9 mmol/L Normal 3.7-5.1 [facility] Comment on above: Order Comment: Speci men Type: BLOOD SPECIMENOrdering Facility: [facility] Address: [address] [place] [address] Performed By: #### 2 4321-2 ####[facility] LABORATORYCLIA [id number] [address] STATES OF [facility] Sodium [Moles/Vol] 136 mmol/L Normal 136-144 [facility] Comment on above: Order Comment: Speci men Type: BLOOD SPECIMENOrdering Facility: [facility] Address: [address] [place] [address] Performed By: #### 2 4321-2 ####[facility] LABORATORYCLIA [id number] [address] STATES [facility] Urea nitrogen [Mass/Vol] 24 mg/dL High 7-21 [facility] Comment on above: Order Comment: Speci men Type: BLOOD SPECIMENOrdering Facility: [facility] Address: [address] [place] [address] Performed By: #### 2 1-2 ####[facility] LABORATORYCLIA [id number] [address] [place] Anion gap [Moles/Vol] 9 mmol/L Normal 9-18 [facility] Comment on above: Order Comment: Speci men Type: BLOOD SPECIMENOrdering Facility: [facility] Address: [address] [place] [address] Performed By: #### 2 4321-2 ####[facility] LABORATORYCLIA [id number] [address] [place] Calcium [Mass/Vol] 8.7 mg/dL Normal 8.5-10.2 [facility] Comment on above: Order Comment: Speci men Type: BLOOD SPECIMENOrdering Facility: [facility] Address: [address] [place] [address] Performed By: #### 2 4321-2 ####[facility] LABORATORYCLIA [id number] [place] [address] [place] Chloride [Moles/Vol] 101 mmol/L Normal 97-105 [facility] Comment on above: Order Comment: Speci men Type: BLOOD SPECIMENOrdering Facility: [facility] Address: [address] [place] [address] Performed By: #### 2 4321-2 ####[facility] LABORATORYCLIA [id number] [address] [place] CO2 [Moles/Vol] 25 mmol/L Normal 22-30 [facility] Comment on above: Order Comment: Speci men Type: BLOOD SPECIMENOrdering Facility: [facility] Address: [address] [place] [address] Performed By: #### 2 4321-2 ####[facility] LABORATORYCLIA [id number] [address] [place] Creatinine [Mass/Vol] 0.62 mg/dL Normal 0.58-0.96 [facility] Comment on above: Order Comment: Speci men Type: BLOOD SPECIMENOrdering Facility: [facility] Address: [address] [place] [address] Performed By: #### 2 4321-2 ####[facility] LABORATORYCLIA [id number] [address] [place] Creatinine and Glomerular filtration rate.predicted panel (S/P/Bld) 89 mL/min/1.73m??? Normal >=60 [facility] Comment on above: Order Comment: Speci men Type: BLOOD SPECIMENOrdering Facility: [facility] Address: [address], [place] [address] Result Comment: Felicia mated Glomerular Filtration Rate (eGFR) is calculated using the 2020 CKD-EPI creatinine equation. This equation utilizes serum creatinine, sex, and age as parameters. The creatinine assay has traceable calibration to isotope dilution-mass spectrometry. Refer to KDIGO guidelines for clinical interpretation. In patients with unstable renal function, e.g. those with acute kidney injury, the eGFR may not accurately reflect actual GFR. Performed By: #### 2 4321-2 ####[facility] LABORATORYCLIA [id number] [place] [address] [place] Glucose [Mass/Vol] 119 mg/dL High 74-99 [facility] Comment on above: Order Comment: Kristin paige Type: BLOOD SPECIMENOrdering Facility: [facility] Address: [address] [place] [address] Result Comment: The [place] Diabetes Association (ADA) provides guidance for cutoff values for fasting glucose and random glucose. The ADA defines fasting as no caloric intake for at least 8 hours. Fasting plasma glucose results between 100 to 125 mg/dL indicate increased risk for diabetes (prediabetes).Fasting plasma glucose results greater than or equal to 126 mg/dL meet the criteria for diagnosis of diabetes. In the absence of unequivocal hyperglycemia, results should be confirmed by repeat testing. In a patient with classic symptoms of hyperglycemia or hyperglycemic crisis, random plasma glucose results greater than or equal to 200 mg/dL meet the criteria for diagnosis of diabetes.Reference: Standards of Medical Care in Diabetes 2016, [place] [employer]. Diabetes Care. 2016.39(Suppl 1). Performed By: #### 2 4321-2 ####[facility] LABORATORYCLIA [id number] [place] [address] [place] Potassium [Moles/Vol] 4.1 mmol/L Normal 3.7-5.1 [facility] Comment on above: Order Comment: Kristin paige Type: BLOOD SPECIMENOrdering Facility: [facility] Address: [address] [place] [address] Performed By: #### 2 4321-2 ####[facility] LABORATORYCLIA [id number] [place] [id number] [place] Sodium [Moles/Vol] 135 mmol/L Low 136-144 [facility] Comment on above: Order Comment: Speci men Type: BLOOD SPECIMENOrdering Facility: [facility] Address: [address] [place] [address] Performed By: #### 2 4321-2 ####[facility] LABORATORYCLIA [id number] [address] [place] Urea nitrogen [Mass/Vol] 17 mg/dL Normal 7-21 [facility] Comment on above: Order Comment: Speci men Type: BLOOD SPECIMENOrdering Facility: [facility] Address: [address] [place] [address] Performed By: #### 2 4321-2 ####[facility] LABORATORYCLIA [id number] [address] [place] CASE MANAGEMon 02-12-2024 CASE MANAGEM Normal [facility] CASE MANAGEM Normal [facility] CASE MANAGEM Normal [facility] CBC W Auto Differential pane l (Bld)on 02-12-2024 Basophils (Bld) [#/Vol] 0.04 10*3/uL Normal <0.11 [facility] Comment on above: Order Comment: Speci men Type: BLOOD SPECIMENOrdering Facility: [facility] Address: [address] [place] [address] Performed By: #### 5 7021-8 ####[facility] LABORATORYCLIA [id number] [address] [place] Basophils/100 WBC (Bld) 0.3 % Normal [facility] Comment on above: Order Comment: Speci men Type: BLOOD SPECIMENOrdering Facility: [facility] Address: [address] [place] [address] Performed By: #### 5 7021-8 ####[facility] LABORATORYCLIA [id number] [address] [place] Differential cell count method Nom (Bld) Auto Normal [facility] Comment on above: Order Comment: Speci men Type: BLOOD SPECIMENOrdering Facility: [facility] Address: [address] [place] [address] Performed By: #### 5 7021-8 ####[facility]ORATORYCLIA [id number] [address] Eosinophils (Bld) [#/Vol] 0.35 10*3/uL Normal <0.46 [facility] Comment on above: Order Comment: Speci men Type: BLOOD SPECIMENOrdering Facility: [facility] Address: [address] [place] [address] Performed By: #### 5 7021-8 ####[facility] LABORATORYCLIA [id number] [address] Eosinophils/100 WBC (Bld) 2.5 % Normal [facility] Comment on above: Order Comment: Speci men Type: BLOOD SPECIMENOrdering Facility: [facility] Address: [address] [place] [address] Performed By: #### 5 7021-8 ####[facility] LABORATORYCLIA [id number] [address] Erythrocyte distribution width (RBC) [Ratio] 13.7 % Normal 11.5-15.0 [facility] Comment on above: Order Comment: Speci men Type: BLOOD SPECIMENOrdering Facility: [facility] Address: [address] [place] [address] Performed By: #### 5 7021-8 ####[facility] LABORATORYCLIA [id number] [address] Hematocrit (Bld) [Volume fraction] 33.5 % Low 36.0-46.0 [facility] Comment on above: Order Comment: Speci men Type: BLOOD SPECIMENOrdering Facility: [facility] Address: [address] [place] [address] Performed By: #### 5 7021-8 ####[facility] LABORATORYCLIA [id number] [address] [place] Hemoglobin (Bld) [Mass/Vol] 10.7 g/dL Low 11.5-15.5 [facility] Comment on above: Order Comment: Speci men Type: BLOOD SPECIMENOrdering Facility: [facility] Address: [address] [place] [address] Performed By: #### 5 7021-8 ####[facility] LABORATORYCLIA [id number] [address] Immature granulocytes (Bld) [#/Vol] 0.11 10*3/uL High <0.10 [facility] Comment on above: Order Comment: Speci men Type: BLOOD SPECIMENOrdering Facility: [facility] Address: [address] [place] [address] Performed By: #### 5 7021-8 ####[facility] LABORATORYCLIA [id number] [address] Immature granulocytes/100 WBC (Bld) 0.8 % Normal [facility] Comment on above: Order Comment: Speci men Type: BLOOD SPECIMENOrdering Facility: [facility] Address: [address] [place] [address] Performed By: #### 5 7021-8 ####[facility] LABORATORYCLIA [id number] [address] STATES [facility] Lymphocytes (Bld) [#/Vol] 1.92 10*3/uL Normal 1.00-4.00 [facility] [facility] Comment on above: Order Comment: Speci men Type: BLOOD SPECIMENOrdering Facility: [facility] Address: [address] [place] [address] Performed By: #### 5 7021-8 ####[facility]ORATORYCLIA [id number] [address] Lymphocytes/100 WBC (Bld) 13.5 % Normal [facility] Comment on above: Order Comment: Speci men Type: BLOOD SPECIMENOrdering Facility: [facility] Address: [address] [place] [address] Performed By: #### 5 7021-8 ####[facility]ORATORYCLIA [id number] [address] [place] MCH (RBC) [Entitic mass] 31.8 pg Normal 26.0-34.0 [facility] Comment on above: Order Comment: Speci men Type: BLOOD SPECIMENOrdering Facility: [facility] Address: [address] [place] [address] Performed By: #### 5 7021-8 ####[facility]ORATORYCLIA [id number] [place] [address] [place] MCHC (RBC) [Mass/Vol] 31.9 g/dL Normal 30.5-36.0 [facility] Comment on above: Order Comment: Speci men Type: BLOOD SPECIMENOrdering Facility: [facility] Address: [address] [place] [address] Performed By: #### 5 7021-8 ####[facility]ORATORYCLIA [id number] [place] [address] [place] MCV (RBC) [Entitic vol] 99.7 fL Normal 80.0-100.0 [facility] Comment on above: Order Comment: Speci men Type: BLOOD SPECIMENOrdering Facility: [facility] Address: [address] [place] [address] Performed By: #### 5 7021-8 ####[facility]ORATORYCLIA [id number] [address] [place] Monocytes (Bld) [#/Vol] 0.85 10*3/uL Normal <0.87 [facility] Comment on above: Order Comment: Speci men Type: BLOOD SPECIMENOrdering Facility: [facility] Address: [address] [place] [address] Performed By: #### 5 7021-8 ####[facility]ORATORYCLIA [id number] [address] [place] Monocytes/100 WBC (Bld) 6.0 % Normal [facility] Comment on above: Order Comment: Speci men Type: BLOOD SPECIMENOrdering Facility: [facility] Address: [address] [place] [address] Performed By: #### 5 7021-8 ####[facility]ORATORYCLIA [id number] [place] [address] [place] Neutrophils (Bld) [#/Vol] 10.95 10*3/uL High 1.45-7.50 [facility] Comment on above: Order Comment: Speci men Type: BLOOD SPECIMENOrdering Facility: [facility] Address: [address] [place] [address] Performed By: #### 5 7021-8 ####[facility]ORATORYCLIA [id number] [address] [place] Neutrophils/100 WBC (Bld) 76.9 % Normal [facility] Comment on above: Order Comment: Speci men Type: BLOOD SPECIMENOrdering Facility: [facility] Address: [address] [place] [address] Performed By: #### 5 7021-8 ####[facility]ORATORYCLIA [id number] [address] [place] Nucleated RBC (Bld) [#/Vol] 10*3/uL Normal <0.01 [facility] Comment on above: Order Comment: Speci men Type: BLOOD SPECIMENOrdering Facility: [facility] Address: [address] [place] [address] Performed By: #### 5 7021-8 ####[facility]ORATORYCLIA [id number] [address] [place] Nucleated RBC/100 WBC (Bld) [Ratio] 0.0 /100 WBC Normal [facility] Comment on above: Order Comment: Speci men Type: BLOOD SPECIMENOrdering Facility: [facility] Address: [address] [place] [address] Performed By: #### 5 7021-8 ####[facility]ORATORYCLIA [id number] [address] [place] Platelet mean volume (Bld) [Entitic vol] 9.2 fL Normal 9.0-12.7 [facility] Comment on above: Order Comment: Speci men Type: BLOOD SPECIMENOrdering Facility: [facility] Address: [address] [place] [address] Performed By: #### 5 7021-8 ####[facility]ORATORYCLIA [id number] [address] Platelets (Bld) [#/Vol] 402 10*3/uL High 150-400 [facility] Comment on above: Order Comment: Speci men Type: BLOOD SPECIMENOrdering Facility: [facility] Address: [address] [place] [address] Performed By: #### 5 7021-8 ####[facility]ORATORYCLIA [id number] [place] [address] [facility] [place] RBC (Bld) [#/Vol] 3.36 10*6/uL Low 3.90-5.20 [facility] Comment on above: Order Comment: Speci men Type: BLOOD SPECIMENOrdering Facility: [facility] Address: [address] [place] [address] Performed By: #### 5 7021-8 ####[facility]ORATORYCLIA [id number] [address] WBC (Bld) [#/Vol] 14.22 10*3/uL High 3.70-11.00 [facility] Comment on above: Order Comment: Speci men Type: BLOOD SPECIMENOrdering Facility: [facility] Address: [address] [place] [address] Performed By: #### 5 7021-8 ####[facility]ORATORYCLIA [id number] [address] [place] CNDSon 02-12-2024 CNDS Normal [facility] CT BRAIN WO IVCONon 02-12-[address] BRAIN WO IVCON Normal [facility] CT CERVICAL SPINE WO IVCONon 02-12-2024 CT CERVICAL SPINE WO IVCON Normal [facility] ED NOTEon 02-12-2024 ED NOTE HNO ID: [id number] Author: RANDELL NELSON RN Service: Emergency Medicine Author Type: Registered Nurse Type: ED Notes Filed: 02/12/2024 21:46 Note Text: Called ED x-ray patient is ready at this time. Normal [facility] ED NOTE HNO ID: [id number] Author: RANDELL NELSON RN Service: Emergency Medicine Author Type: Registered Nurse Type: ED Notes Filed: 02/12/2024 21:45 Note Text: Called ED CT patient is ready at this time. Normal [facility] ED NOTE HNO ID: [id number] Author: PILLO SHEPPARD, Medic Service: ? 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 Sound Type: ED Notes Filed: 02/12/2024 21:09 Note Text: Bed: [facility] Expected date: Expected time: Means of arrival: [place] [facility] Comments: Hip pain [facility] Normal [facility] ED PROV NOTEon 02-12-2024 ED PROV NOTE Normal [facility] XR HIP 3V PELV+ AP/LAT LTon 02-12-2024 XR HIP 3V PELV+ AP/LAT LT Normal [facility] XR SHLDR >/=3V AP/NICA AP/OTH R LTon 02-12-2024 XR SHLDR >/=3V AP/NICA AP/OTHR LT Normal [facility] Basic metabolic 2000 panelon 02-11-2024 Anion gap [Moles/Vol] 10 mmol/L Normal 9-18 [facility] Comment on above: Order Comment: Speci men Type: BLOOD SPECIMENOrdering Facility: [facility] Address: [address] [place] [address] Performed By: #### 2 4321-2 ####[facility]ORATORYCLIA [id number] [place] [address] [place] Calcium [Mass/Vol] 9.0 mg/dL Normal 8.5-10.2 [facility] Comment on above: Order Comment: Speci men Type: BLOOD SPECIMENOrdering Facility: [facility] Address: [address] [place] [address] Performed By: #### 2 4321-2 ####[facility]ORATORYCLIA [id number] [place] [address] [place] Chloride [Moles/Vol] 100 mmol/L Normal 97-105 [facility] Comment on above: Order Comment: Speci men Type: BLOOD SPECIMENOrdering Facility: [facility] Address: [address] [place] [address] Performed By: #### 2 4321-2 ####[facility]ORATORYCLIA [id number] [place] [address] [place] CO2 [Moles/Vol] 24 mmol/L Normal 22-30 [facility] Comment on above: Order Comment: Speci men Type: BLOOD SPECIMENOrdering Facility: [facility] Address: [address] [place] [address] Performed By: #### 2 4321-2 ####[facility] CENTERCLIA [id number] [address] STATES OF [facility] Creatinine [Mass/Vol] 0.70 mg/dL Normal 0.58-0.96 [facility] Comment on above: Order Comment: Speci men Type: BLOOD SPECIMENOrdering Facility: [facility] Address: [address] [place] [address] Performed By: #### 2 4321-2 ####[facility] CENTERCLIA [id number] [address] Creatinine and Glomerular filtration rate.predicted panel (S/P/Bld) 86 mL/min/1.73m??? Normal >=60 [facility] Comment on above: Order Comment: Speci men Type: BLOOD SPECIMENOrdering Facility: [facility] Address: [address] [place] [address] Result Comment: Felicia mated Glomerular Filtration Rate (eGFR) is calculated using the 2020 CKD-EPI creatinine equation. This equation utilizes serum creatinine, sex, and age as parameters. The creatinine assay has traceable calibration to isotope dilution-mass spectrometry. Refer to KDIGO guidelines for clinical interpretation. In patients with unstable renal function, e.g. those with acute kidney injury, the eGFR may not accurately reflect actual GFR. Performed By: #### 2 4321-2 ####[facility]ORATORYCLIA [id number] [place] [address] [place] Glucose [Mass/Vol] 140 mg/dL High 74-99 [facility] Comment on above: Order Comment: Speci men Type: BLOOD SPECIMENOrdering Facility: [facility] Address: [address] [place] [id number] Result Comment: The [place] [employer] (ADA) provides guidance for cutoff values for fasting glucose and random glucose. The ADA defines fasting as no caloric intake for at least 8 hours. Fasting plasma glucose results between 100 to 125 mg/dL indicate increased risk for diabetes (prediabetes).Fasting plasma glucose results greater than or equal to 126 mg/dL meet the criteria for diagnosis of diabetes. In the absence of unequivocal hyperglycemia, results should be confirmed by repeat testing. In a patient with classic symptoms of hyperglycemia or hyperglycemic crisis, random plasma glucose results greater than or equal to 200 mg/dL meet the criteria for diagnosis of diabetes.Reference: Standards of Medical Care in Diabetes 2016, [place] [employer]. Diabetes Care. 2016.39(Suppl 1). Performed By: #### 2 4321-2 ####[facility]ORATORYCLIA [id number] [place] [address] [place] Potassium [Moles/Vol] 4.3 mmol/L Normal 3.7-5.1 [facility] Comment on above: Order Comment: Kristin men Type: BLOOD SPECIMENOrdering Facility: [facility] Address: [address] [place] [address] Performed By: #### 2 4321-2 ####[facility]ORATORYCLIA [id number] [place] [address] [place] Sodium [Moles/Vol] 134 mmol/L Low 136-144 [facility] Comment on above: Order Comment: Speci men Type: BLOOD SPECIMENOrdering Facility: [facility] Address: [address] [id number] Performed By: #### 2 4321-2 ####[facility]ORATORYCLIA [id number] [place] [address] [place] Urea nitrogen [Mass/Vol] 24 mg/dL High 7-21 [facility] Comment on above: Order Comment: Speci men Type: BLOOD SPECIMENOrdering Facility: [facility] Address: [address] [place] [address] Performed By: #### 2 4321-2 ####[facility]ORATORYCLIA [id number] [address] CBC panel Auto (Bld)on 02-10 Erythrocyte distribution width (RBC) [Ratio] 13.9 % Normal 11.5-15.0 [facility] Comment on above: Order Comment: Speci men Type: BLOOD SPECIMENOrdering Facility: [facility] Address: [address] [place] [address] Performed By: #### 5 8410-2 ####[facility]ORATORYCLIA [id number] [address] Hematocrit (Bld) [Volume fraction] 31.4 % Low 36.0-46.0 [facility] Comment on above: Order Comment: Speci men Type: BLOOD SPECIMENOrdering Facility: [facility] Address: [address] [place] [address] Performed By: #### 5 8410-2 ####[facility]ORATORYCLIA [id number] [address] Hemoglobin (Bld) [Mass/Vol] 10.4 g/dL Low 11.5-15.5 [facility] Comment on above: Order Comment: Speci men Type: BLOOD SPECIMENOrdering Facility: [facility] Address: [address] [place] [address] Performed By: #### 5 8410-2 ####[facility]ORATORYCLIA [id number] [address] STATES [facility] MCH (RBC) [Entitic mass] 32.5 pg Normal 26.0-34.0 [facility] Comment on above: Order Comment: Speci men Type: BLOOD SPECIMENOrdering Facility: [facility] Address: [address] [place] [address] Performed By: #### 5 8410-2 ####[facility]ORATORYCLIA [id number] [place] [address] [place] MCHC (RBC) [Mass/Vol] 33.1 g/dL Normal 30.5-36.0 [facility] Comment on above: Order Comment: Speci men Type: BLOOD SPECIMENOrdering Facility: [facility] Address: [address] [place] [address] Performed By: #### 5 8410-2 ####[facility]ORATORYCLIA [id number] [address] [place] MCV (RBC) [Entitic vol] 98.1 fL Normal 80.0-100.0 [facility] Comment on above: Order Comment: Speci men Type: BLOOD SPECIMENOrdering Facility: [facility] Address: [address] [place] [address] Performed By: #### 5 8410-2 ####[facility]ORATORYCLIA [id number] [address] STATES OF [facility] Nucleated RBC (Bld) [#/Vol] 10*3/uL Normal <0.01 [facility] Comment on above: Order Comment: Speci men Type: BLOOD SPECIMENOrdering Facility: [facility] Address: [address] [place] [address] Performed By: #### 5 8410-2 ####[facility]ORATORYCLIA [id number] [address] [place] Platelet mean volume (Bld) [Entitic vol] 9.3 fL Normal 9.0-12.7 [facility] Comment on above: Order Comment: Speci men Type: BLOOD SPECIMENOrdering Facility: [facility] Address: [address] [place] [address] Performed By: #### 5 8410-2 ####[facility]ORATORYCLIA [id number] [address] [place] Platelets (Bld) [#/Vol] 291 10*3/uL Normal 150-400 [facility] Comment on above: Order Comment: Speci men Type: BLOOD SPECIMENOrdering Facility: [facility] Address: [address] [place] [address] Performed By: #### 5 8410-2 ####[facility]ORATORYCLIA [id number] [address] [place] RBC (Bld) [#/Vol] 3.20 10*6/uL Low 3.90-5.20 [facility] Comment on above: Order Comment: Speci men Type: BLOOD SPECIMENOrdering Facility: [facility] Address: [address] [place] [address] Performed By: #### 5 8410-2 ####[facility]ORATORYCLIA [id number] [address] STATES OF [facility] WBC (Bld) [#/Vol] 13.70 10*3/uL High 3.70-11.00 [facility] Comment on above: Order Comment: Speci men Type: BLOOD SPECIMENOrdering Facility: [facility] Address: [address] [place] [address] Performed By: #### 5 8410-2 ####[facility]ORATORYCLIA [id number] [address] [place] CONSULTon 02-11-2024 CONSULT Normal [facility] THERAPY NTon 02-11-2024 THERAPY NT Normal [facility] THERAPY NT Normal [facility] US KIDNEY/BLADDERon 02-11-20 24 US KIDNEY/BLADDER Normal [facility] Basic metabolic 2000 panelon 02-10-2024 Anion gap [Moles/Vol] 11 mmol/L Normal 9-18 [facility] Comment on above: Order Comment: Speci men Type: BLOOD SPECIMENOrdering Facility: [facility] Address: [address] [place] [address] Performed By: #### 2 4321-2 ####[facility]ORATORYCLIA [id number] [address] [place] Calcium [Mass/Vol] 9.1 mg/dL Normal 8.5-10.2 [facility] Comment on above: Order Comment: Speci men Type: BLOOD SPECIMENOrdering Facility: [facility] Address: [address] [place] [address] Performed By: #### 2 4321-2 ####[facility]ORATORYCLIA [id number] [place] [id number] [place] Chloride [Moles/Vol] 104 mmol/L Normal 97-105 [facility] Comment on above: Order Comment: Speci men Type: BLOOD SPECIMENOrdering Facility: [facility] Address: [address] [place] [address] Performed By: #### 2 4321-2 ####[facility]ORATORYCLIA [id number] [place] [id number] [place] CO2 [Moles/Vol] 23 mmol/L Normal 22-30 [facility] Comment on above: Order Comment: Speci men Type: BLOOD SPECIMENOrdering Facility: [facility] Address: [address] [place] [address] Performed By: #### 2 4321-2 ####[facility]ORATORYCLIA [id number] [address] STATES OF [facility] Creatinine [Mass/Vol] 0.60 mg/dL Normal 0.58-0.96 [facility] Comment on above: Order Comment: Speci men Type: BLOOD SPECIMENOrdering Facility: [facility] Address: [address] [place] [address] Performed By: #### 2 4321-2 ####[facility]ORATORYCLIA [id number] [address] Creatinine and Glomerular filtration rate.predicted panel (S/P/Bld) 90 mL/min/1.73m??? Normal >=60 [facility] Comment on above: Order Comment: Speci men Type: BLOOD SPECIMENOrdering Facility: [facility] Address: [address] [place] [address] Result Comment: Felicia mated Glomerular Filtration Rate (eGFR) is calculated using the 2020 CKD-EPI creatinine equation. This equation utilizes serum creatinine, sex, and age as parameters. The creatinine assay has traceable calibration to isotope dilution-mass spectrometry. Refer to KDIGO guidelines for clinical interpretation. In patients with unstable renal function, e.g. those with acute kidney injury, the eGFR may not accurately reflect actual GFR. Performed By: #### 2 4321-2 ####[facility]ORATORYCLIA [id number] [place] [address] [place] Glucose [Mass/Vol] 129 mg/dL High 74-99 [facility] Comment on above: Order Comment: Lului royal Type: BLOOD SPECIMENOrdering Facility: [facility] Address: [address] [place] [address] Result Comment: The [place] Diabetes [employer] (ADA) provides guidance for cutoff values for fasting glucose and random glucose. The ADA defines fasting as no caloric intake for at least 8 hours. Fasting plasma glucose results between 100 to 125 mg/dL indicate increased risk for diabetes (prediabetes).Fasting plasma glucose results greater than or equal to 126 mg/dL meet the criteria for diagnosis of diabetes. In the absence of unequivocal hyperglycemia, results should be confirmed by repeat testing. In a patient with classic symptoms of hyperglycemia or hyperglycemic crisis, random plasma glucose results greater than or equal to 200 mg/dL meet the criteria for diagnosis of diabetes.Reference: Standards of Medical Care in Diabetes 2016, [place] [employer]. Diabetes Care. 2016.39(Suppl 1). Performed By: #### 2 4321-2 ####[facility]ORATORYCLIA [id number] [place] [address] [place] Potassium [Moles/Vol] 3.9 mmol/L Normal 3.7-5.1 [facility] Comment on above: Order Comment: Kristin paige Type: BLOOD SPECIMENOrdering Facility: [facility] Address: [address] [place] [address] Performed By: #### 2 4321-2 ####[facility]ORATORYCLIA [id number] [place] [id number] [place] Sodium [Moles/Vol] 138 mmol/L Normal 136-144 [facility] Comment on above: Order Comment: Kristin royal Type: BLOOD SPECIMENOrdering Facility: [facility] Address: [address] [place] [address] Performed By: #### 2 4321-2 ####[facility]ORATORYCLIA [id number] [address] [place] Urea nitrogen [Mass/Vol] 18 mg/dL Normal 7-21 [facility] Comment on above: Order Comment: Speci men Type: BLOOD SPECIMENOrdering Facility: [facility] Address: [address] [place] [address] Performed By: #### 2 4321-2 ####[facility]ORATORYCLIA [id number] [place] [id number] [place] CASE MANAGEMon 02-10-2024 CASE MANAGEM Normal [facility] CBC panel Auto (Bld)on 02-09 Erythrocyte distribution width (RBC) [Ratio] 14.0 % Normal 11.5-15.0 [facility] Comment on above: Order Comment: Speci men Type: BLOOD SPECIMENOrdering Facility: [facility] Address: [address] [place] [address] Performed By: #### 5 8410-2 ####[facility]ORATORYCLIA [id number] [address] STATES [place] [facility] Hematocrit (Bld) [Volume fraction] 35.5 % Low 36.0-46.0 [facility] Comment on above: Order Comment: Speci men Type: BLOOD SPECIMENOrdering Facility: [facility] Address: [address] [place] [address] Performed By: #### 5 8410-2 ####[facility]ATORYCLIA [id number] [address] [place] Hemoglobin (Bld) [Mass/Vol] 11.5 g/dL Normal 11.5-15.5 [facility] Comment on above: Order Comment: Speci men Type: BLOOD SPECIMENOrdering Facility: [facility] Address: [address] [place] [address] Performed By: #### 5 8410-2 ####[facility]ORATORYCLIA [id number] [address] [place] MCH (RBC) [Entitic mass] 32.1 pg Normal 26.0-34.0 [facility] Comment on above: Order Comment: Speci men Type: BLOOD SPECIMENOrdering Facility: [facility] Address: [address] [place] [address] Performed By: #### 5 8410-2 ####[facility]ATORYCLIA [id number] [address] MCHC (RBC) [Mass/Vol] 32.4 g/dL Normal 30.5-36.0 [facility] Comment on above: Order Comment: Speci men Type: BLOOD SPECIMENOrdering Facility: [facility] Address: [address] [place] [address] Performed By: #### 5 8410-2 ####[facility]ORATORYCLIA [id number] [address] MCV (RBC) [Entitic vol] 99.2 fL Normal 80.0-100.0 [facility] Comment on above: Order Comment: Speci men Type: BLOOD SPECIMENOrdering Facility: [facility] Address: [address] [place] [address] Performed By: #### 5 8410-2 ####[facility]ATORYCLIA [id number] [address] Nucleated RBC (Bld) [#/Vol] 10*3/uL Normal <0.01 [facility] Comment on above: Order Comment: Speci men Type: BLOOD SPECIMENOrdering Facility: [facility] Address: [address] [place] [address] Performed By: #### 5 8410-2 ####[facility]ATORYCLIA [id number] [address] Platelet mean volume (Bld) [Entitic vol] 9.9 fL Normal 9.0-12.7 [facility] Comment on above: Order Comment: Speci men Type: BLOOD SPECIMENOrdering Facility: [facility] Address: [address] [place] [address] Performed By: #### 5 8410-2 ####[facility]ATORYCLIA [id number] [address] Platelets (Bld) [#/Vol] 294 10*3/uL Normal 150-400 [facility] Comment on above: Order Comment: Speci men Type: BLOOD SPECIMENOrdering Facility: [facility] Address: [address] [place] [address] Performed By: #### 5 8410-2 ####[facility]ORATORYCLIA [id number] [place] [address] [place] RBC (Bld) [#/Vol] 3.58 10*6/uL Low 3.90-5.20 [facility] Comment on above: Order Comment: Speci men Type: BLOOD SPECIMENOrdering Facility: [facility] Address: [address] [place] [address] Performed By: #### 5 8410-2 ####[facility] LABORATORYCLIA [id number] [address] STATES OF [facility] WBC (Bld) [#/Vol] 10.86 10*3/uL Normal 3.70-11.00 [facility] Comment on above: Order Comment: Speci men Type: BLOOD SPECIMENOrdering Facility: [facility] Address: [address] [place] [address] Performed By: #### 5 8410-2 ####[facility]ORATORYCLIA [id number] [address] [place] CONSULT PROGon 02-10-2024 CONSULT PROG Normal [facility] NURSING PROGon 02-10-2024 NURSING PROG Normal [facility] Basic metabolic 2000 panelon 02-09-2024 Anion gap [Moles/Vol] 10 mmol/L Normal 9-18 [facility] Comment on above: Order Comment: Speci men Type: BLOOD SPECIMENOrdering Facility: [facility] Address: [address] [place] [address] Performed By: #### 2 4321-2 ####[facility]ORATORYCLIA [id number] [address] [place] Calcium [Mass/Vol] 9.1 mg/dL Normal 8.5-10.2 [facility] Comment on above: Order Comment: Speci men Type: BLOOD SPECIMENOrdering Facility: [facility] Address: [address] [place] [address] Performed By: #### 2 4321-2 ####[facility]ORATORYCLIA [id number] [place] [address] [place] Chloride [Moles/Vol] 103 mmol/L Normal 97-105 [facility] Comment on above: Order Comment: Speci men Type: BLOOD SPECIMENOrdering Facility: [facility] Address: [address] [place] [address] Performed By: #### 2 4321-2 ####[facility]ORATORYCLIA [id number] [place] [address] [place] CO2 [Moles/Vol] 26 mmol/L Normal 22-30 [facility] Comment on above: Order Comment: Speci men Type: BLOOD SPECIMENOrdering Facility: [facility] Address: [address] [place] [address] Performed By: #### 2 4321-2 ####[facility]ORATORYCLIA [id number] [place] [address] [place] Creatinine [Mass/Vol] 0.65 mg/dL Normal 0.58-0.96 [facility] Comment on above: Order Comment: Speci men Type: BLOOD SPECIMENOrdering Facility: [facility] Address: [address] [place] [address] Performed By: #### 2 4321-2 ####[facility] LABORATORYCLIA [id number] [address] Creatinine and Glomerular filtration rate.predicted panel (S/P/Bld) 88 mL/min/1.73m??? Normal >=60 [facility] Comment on above: Order Comment: Speci men Type: BLOOD SPECIMENOrdering Facility: [facility] Address: [address] [place] [address] Result Comment: Felicia mated Glomerular Filtration Rate (eGFR) is calculated using the 2020 CKD-EPI creatinine equation. This equation utilizes serum creatinine, sex, and age as parameters. The creatinine assay has traceable calibration to isotope dilution-mass spectrometry. Refer to KDIGO guidelines for clinical interpretation. In patients with unstable renal function, e.g. those with acute kidney injury, the eGFR may not accurately reflect actual GFR. Performed By: #### 2 4321-2 ####[facility]ORATORYCLIA [id number] [place] [address] [place] Glucose [Mass/Vol] 135 mg/dL High 74-99 [facility] Comment on above: Order Comment: Speci men Type: BLOOD SPECIMENOrdering Facility: [facility] Address: [address] [place] [address] Result Comment: The [place] Diabetes [employer] (ADA) provides guidance for cutoff values for fasting glucose and random glucose. The ADA defines fasting as no caloric intake for at least 8 hours. Fasting plasma glucose results between 100 to 125 mg/dL indicate increased risk for diabetes (prediabetes).Fasting plasma glucose results greater than or equal to 126 mg/dL meet the criteria for diagnosis of diabetes. In the absence of unequivocal hyperglycemia, results should be confirmed by repeat testing. In a patient with classic symptoms of hyperglycemia or hyperglycemic crisis, random plasma glucose results greater than or equal to 200 mg/dL meet the criteria for diagnosis of diabetes.Reference: Standards of Medical Care in Diabetes 2016, [place] [employer]. Diabetes Care. 2016.39(Suppl 1). Performed By: #### 2 4321-2 ####[facility]ATORYCLIA [id number] [place] [address] [place] Potassium [Moles/Vol] 3.6 mmol/L Low 3.7-5.1 [facility] Comment on above: Order Comment: Speci men Type: BLOOD SPECIMENOrdering Facility: [facility] Address: [address] [id number] Performed By: #### 2 4321-2 ####[facility]ORATORYCLIA [id number] [place] [address] [place] Sodium [Moles/Vol] 139 mmol/L Normal 136-144 [facility] Comment on above: Order Comment: Speci men Type: BLOOD SPECIMENOrdering Facility: [facility] Address: [address] [place] [address] Performed By: #### 2 4321-2 ####[facility] LABORATORYCLIA [id number] [address] STATES OF [facility] Urea nitrogen [Mass/Vol] 15 mg/dL Normal 7-21 [facility] Comment on above: Order Comment: Speci men Type: BLOOD SPECIMENOrdering Facility: [facility] Address: [address] [place] [address] Performed By: #### 2 4321-2 ####[facility]ORATORYCLIA [id number] [address] OF [facility] CASE MANAGEMon 02-09-2024 CASE MANAGEM Normal [facility] CBC panel Auto (Bld)on 02-08 Erythrocyte distribution width (RBC) [Ratio] 13.7 % Normal 11.5-15.0 [facility] Comment on above: Order Comment: Speci men Type: BLOOD SPECIMENOrdering Facility: [facility] Address: [address] [place] [address] Performed By: #### 5 8410-2 ####[facility]ORATORYCLIA [id number] [address] [place] Hematocrit (Bld) [Volume fraction] 33.9 % Low 36.0-46.0 [facility] Comment on above: Order Comment: Speci men Type: BLOOD SPECIMENOrdering Facility: [facility] Address: [address] [place] [address] Performed By: #### 5 8410-2 ####[facility]ORATORYCLIA [id number] [place] [address] [place] Hemoglobin (Bld) [Mass/Vol] 11.3 g/dL Low 11.5-15.5 [facility] Comment on above: Order Comment: Speci men Type: BLOOD SPECIMENOrdering Facility: [facility] Address: [address] [place] [address] Performed By: #### 5 8410-2 ####[facility]ORATORYCLIA [id number] [address] MCH (RBC) [Entitic mass] 32.3 pg Normal 26.0-34.0 [facility] Comment on above: Order Comment: Speci men Type: BLOOD SPECIMENOrdering Facility: [facility] Address: [address] [place] [address] Performed By: #### 5 8410-2 ####[facility] LABORATORYCLIA [id number] [address] [place] MCHC (RBC) [Mass/Vol] 33.3 g/dL Normal 30.5-36.0 [facility] Comment on above: Order Comment: Speci men Type: BLOOD SPECIMENOrdering Facility: [facility] Address: [address] [place] [address] Performed By: #### 5 8410-2 ####[facility]ORATORYCLIA [id number] [address] STATES OF [facility] MCV (RBC) [Entitic vol] 96.9 fL Normal 80.0-100.0 [facility] Comment on above: Order Comment: Speci men Type: BLOOD SPECIMENOrdering Facility: [facility] Address: [address] [place] [address] Performed By: #### 5 8410-2 ####[facility]ORATORYCLIA [id number] [address] Nucleated RBC (Bld) [#/Vol] 10*3/uL Normal <0.01 [facility] Comment on above: Order Comment: Speci men Type: BLOOD SPECIMENOrdering Facility: [facility] Address: [address] [place] [address] Performed By: #### 5 8410-2 ####[facility]ORATORYCLIA [id number] [address] Platelet mean volume (Bld) [Entitic vol] 9.2 fL Normal 9.0-12.7 [facility] Comment on above: Order Comment: Speci men Type: BLOOD SPECIMENOrdering Facility: [facility] Address: [address] [place] [address] Performed By: #### 5 8410-2 ####[facility]ORATORYCLIA [id number] [address] [place] Platelets (Bld) [#/Vol] 283 10*3/uL Normal 150-400 [facility] Comment on above: Order Comment: Speci men Type: BLOOD SPECIMENOrdering Facility: [facility] Address: [address] [place] [address] Performed By: #### 5 8410-2 ####[facility]ORATORYCLIA [id number] [place] [address] [place] RBC (Bld) [#/Vol] 3.50 10*6/uL Low 3.90-5.20 [facility] Comment on above: Order Comment: Speci men Type: BLOOD SPECIMENOrdering Facility: [facility] Address: [address] [place] [address] Performed By: #### 5 8410-2 ####[facility]ORATORYCLIA [id number] [address] OF [facility] WBC (Bld) [#/Vol] 9.83 10*3/uL Normal 3.70-11.00 [facility] Comment on above: Order Comment: Speci men Type: BLOOD SPECIMENOrdering Facility: [facility] Address: [address] [place] [address] Performed By: #### 5 8410-2 ####[facility]ORATORYCLIA [id number] [address] [place] CONSULT PROGon 02-09-2024 CONSULT PROG Normal [facility] NUTRITIONon 02-09-2024 NUTRITION Normal [facility] THERAPY NTon 02-09-2024 THERAPY NT Normal [facility] Basic metabolic 2000 panelon 02-08-2024 Anion gap [Moles/Vol] 13 mmol/L Normal 9-18 [facility] Comment on above: Order Comment: Speci men Type: BLOOD SPECIMENOrdering Facility: [facility] Address: [address] [place] [address] Performed By: #### 2 4321-2 ####[facility]ORATORYCLIA [id number] [place] [address] [place] Calcium [Mass/Vol] 9.3 mg/dL Normal 8.5-10.2 [facility] Comment on above: Order Comment: Speci men Type: BLOOD SPECIMENOrdering Facility: [facility] Address: [address] [place] [address] Performed By: #### 2 4321-2 ####[facility]ORATORYCLIA [id number] [place] [address] [place] Chloride [Moles/Vol] 103 mmol/L Normal 97-105 [facility] Comment on above: Order Comment: Speci men Type: BLOOD SPECIMENOrdering Facility: [facility] Address: [address] [place] [address] Performed By: #### 2 4321-2 ####[facility]ORATORYCLIA [id number] [address] [place] CO2 [Moles/Vol] 24 mmol/L Normal 22-30 [facility] Comment on above: Order Comment: Speci men Type: BLOOD SPECIMENOrdering Facility: [facility] Address: [address] [place] [address] Performed By: #### 2 4321-2 ####[facility]ORATORYCLIA [id number] [address] [place] Creatinine [Mass/Vol] 0.60 mg/dL Normal 0.58-0.96 [facility] Comment on above: Order Comment: Speci men Type: BLOOD SPECIMENOrdering Facility: [facility] Address: [address] [place] [address] Performed By: #### 2 4321-2 ####[facility]ORATORYCLIA [id number] [address] [place] Creatinine and Glomerular filtration rate.predicted panel (S/P/Bld) 90 mL/min/1.73m??? Normal >=60 [facility] Comment on above: Order Comment: Speci men Type: BLOOD SPECIMENOrdering Facility: [facility] Address: [address] [place] [address] Result Comment: Felicia mated Glomerular Filtration Rate (eGFR) is calculated using the 2020 CKD-EPI creatinine equation. This equation utilizes serum creatinine, sex, and age as parameters. The creatinine assay has traceable calibration to isotope dilution-mass spectrometry. Refer to KDIGO guidelines for clinical interpretation. In patients with unstable renal function, e.g. those with acute kidney injury, the eGFR may not accurately reflect actual GFR. Performed By: #### 2 4321-2 ####[facility]ORATORYCLIA [id number] [place] [address] [place] Glucose [Mass/Vol] 116 mg/dL High 74-99 [facility] Comment on above: Order Comment: Kristin paige Type: BLOOD SPECIMENOrdering Facility: [facility] Address: [address] [place] [address] Result Comment: The [place] Diabetes [employer] (ADA) provides guidance for cutoff values for fasting glucose and random glucose. The ADA defines fasting as no caloric intake for at least 8 hours. Fasting plasma glucose results between 100 to 125 mg/dL indicate increased risk for diabetes (prediabetes).Fasting plasma glucose results greater than or equal to 126 mg/dL meet the criteria for diagnosis of diabetes. In the absence of unequivocal hyperglycemia, results should be confirmed by repeat testing. In a patient with classic symptoms of hyperglycemia or hyperglycemic crisis, random plasma glucose results greater than or equal to 200 mg/dL meet the criteria for diagnosis of diabetes.Reference: Standards of Medical Care in Diabetes 2016, [place] [employer]. Diabetes Care. 2016.39(Suppl 1). Performed By: #### 2 4321-2 ####[facility]ORATORYCLIA [id number] [place] [address] [place] Potassium [Moles/Vol] 3.3 mmol/L Low 3.7-5.1 [facility] Comment on above: Order Comment: Kristin paige Type: BLOOD SPECIMENOrdering Facility: [facility] Address: [address] [id number] Performed By: #### 2 4321-2 ####[facility] LABORATORYCLIA [id number] [address] [place] Sodium [Moles/Vol] 140 mmol/L Normal 136-144 [facility] Comment on above: Order Comment: Speci men Type: BLOOD SPECIMENOrdering Facility: [facility] Address: [address] [place] [address] Performed By: #### 2 4321-2 ####[facility] LABORATORYCLIA [id number] [place] [address] [place] Urea nitrogen [Mass/Vol] 17 mg/dL Normal 7-21 [facility] Comment on above: Order Comment: Speci men Type: BLOOD SPECIMENOrdering Facility: [facility] Address: [address] [place] [address] Performed By: #### 2 4321-2 ####[facility] LABORATORYCLIA [id number] [address] OF [facility] CASE MANAGEMon 02-08-2024 CASE MANAGEM Normal [facility] CASE MANAGEM Normal [facility] CBC panel Auto (Bld)on 02-07 Erythrocyte distribution width (RBC) [Ratio] 14.1 % Normal 11.5-15.0 [facility] Comment on above: Order Comment: Speci men Type: BLOOD SPECIMENOrdering Facility: [facility] Address: [address] [place] [address] Performed By: #### 5 8410-2 ####[facility]ORATORYCLIA [id number] [place] [address] [place] Hematocrit (Bld) [Volume fraction] 33.4 % Low 36.0-46.0 [facility] Comment on above: Order Comment: Speci men Type: BLOOD SPECIMENOrdering Facility: [facility] Address: [address] [place] [address] Performed By: #### 5 8410-2 ####[facility] LABORATORYCLIA [id number] [address] [place] Hemoglobin (Bld) [Mass/Vol] 10.9 g/dL Low 11.5-15.5 [facility] Comment on above: Order Comment: Speci men Type: BLOOD SPECIMENOrdering Facility: [facility] Address: [address] [place] [address] Performed By: #### 5 8410-2 ####[facility]ORATORYCLIA [id number] [address] MCH (RBC) [Entitic mass] 31.9 pg Normal 26.0-34.0 [facility] Comment on above: Order Comment: Speci men Type: BLOOD SPECIMENOrdering Facility: [facility] Address: [address] [place] [address] Performed By: #### 5 8410-2 ####[facility]ORATORYCLIA [id number] [address] MCHC (RBC) [Mass/Vol] 32.6 g/dL Normal 30.5-36.0 [facility] Comment on above: Order Comment: Speci men Type: BLOOD SPECIMENOrdering Facility: [facility] Address: [address] [place] [address] Performed By: #### 5 8410-2 ####[facility]ORATORYCLIA [id number] [address] MCV (RBC) [Entitic vol] 97.7 fL Normal 80.0-100.0 [facility] Comment on above: Order Comment: Speci men Type: BLOOD SPECIMENOrdering Facility: [facility] Address: [address] [place] [address] Performed By: #### 5 8410-2 ####[facility]ORATORYCLIA [id number] [address] Nucleated RBC (Bld) [#/Vol] 10*3/uL Normal <0.01 [facility] Comment on above: Order Comment: Speci men Type: BLOOD SPECIMENOrdering Facility: [facility] Address: [address] [place] [address] Performed By: #### 5 8410-2 ####[facility]ORATORYCLIA [id number] [address] STATES OF [facility] Platelet mean volume (Bld) [Entitic vol] 9.2 fL Normal 9.0-12.7 [facility] Comment on above: Order Comment: Speci men Type: BLOOD SPECIMENOrdering Facility: [facility] Address: [address] [place] [address] Performed By: #### 5 8410-2 ####[facility]ORATORYCLIA [id number] [place] [address] [place] Platelets (Bld) [#/Vol] 275 10*3/uL Normal 150-400 [facility] Comment on above: Order Comment: Speci men Type: BLOOD SPECIMENOrdering Facility: [facility] Address: [address] [place] [address] Performed By: #### 5 8410-2 ####[facility]ORATORYCLIA [id number] [address] STATES OF [facility] RBC (Bld) [#/Vol] 3.42 10*6/uL Low 3.90-5.20 [facility] Comment on above: Order Comment: Speci men Type: BLOOD SPECIMENOrdering Facility: [facility] Address: [address] [place] [address] Performed By: #### 5 8410-2 ####[facility]ORATORYCLIA [id number] [address] [place] WBC (Bld) [#/Vol] 8.77 10*3/uL Normal 3.70-11.00 [facility] Comment on above: Order Comment: Speci men Type: BLOOD SPECIMENOrdering Facility: [facility] Address: [address] [place] [address] Performed By: #### 5 8410-2 ####[facility]ORATORYCLIA [id number] [address] [place] PT EDon 02-08-2024 PT ED Normal [facility] THERAPY NTon 02-08-2024 THERAPY NT Normal [facility] Basic metabolic 2000 panelon 05-01-2024 Anion gap [Moles/Vol] 10 mmol/L Normal 9-18 [facility] Comment on above: Order Comment: Speci men Type: BLOOD SPECIMENOrdering Facility: [facility] Address: [address] [place] [address] Performed By: #### 2 4321-2 ####[facility]ORATORYCLIA [id number] [place] [address] [place] Calcium [Mass/Vol] 8.9 mg/dL Normal 8.5-10.2 [facility] Comment on above: Order Comment: Speci men Type: BLOOD SPECIMENOrdering Facility: [facility] Address: [address] [place] [address] Performed By: #### 2 4321-2 ####[facility]ORATORYCLIA [id number] [place] [address] [place] Chloride [Moles/Vol] 99 mmol/L Normal 97-105 [facility] Comment on above: Order Comment: Speci men Type: BLOOD SPECIMENOrdering Facility: [facility] Address: [address] [place] [address] Performed By: #### 2 4321-2 ####[facility]ORATORYCLIA [id number] [place] [address] [place] CO2 [Moles/Vol] 26 mmol/L Normal 22-30 [facility] Comment on above: Order Comment: Speci men Type: BLOOD SPECIMENOrdering Facility: [facility] Address: [address] [place] [address] Performed By: #### 2 4321-2 ####[facility]ORATORYCLIA [id number] [place] [address] [place] Creatinine [Mass/Vol] 0.72 mg/dL Normal 0.58-0.96 [facility] Comment on above: Order Comment: Speci men Type: BLOOD SPECIMENOrdering Facility: [facility] Address: [address] [place] [address] Performed By: #### 2 4321-2 ####[facility]ORATORYCLIA [id number] [place] [address] [place] Creatinine and Glomerular filtration rate.predicted panel (S/P/Bld) 84 mL/min/1.73m??? Normal >=60 [facility] Comment on above: Order Comment: Kristin paige Type: BLOOD SPECIMENOrdering Facility: [facility] Address: [address] [place] [address] Result Comment: Felicia mated Glomerular Filtration Rate (eGFR) is calculated using the 2020 CKD-EPI creatinine equation. This equation utilizes serum creatinine, sex, and age as parameters. The creatinine assay has traceable calibration to isotope dilution-mass spectrometry. Refer to KDIGO guidelines for clinical interpretation. In patients with unstable renal function, e.g. those with acute kidney injury, the eGFR may not accurately reflect actual GFR. Performed By: #### 2 4321-2 ####[facility]ORATORYCLIA [id number] [place] [address] [place] Glucose [Mass/Vol] 130 mg/dL High 74-99 [facility] Comment on above: Order Comment: Kristin paige Type: BLOOD SPECIMENOrdering Facility: [facility] Address: [address] [place] [address] Result Comment: The [place] [employer] (ADA) provides guidance for cutoff values for fasting glucose and random glucose. The ADA defines fasting as no caloric intake for at least 8 hours. Fasting plasma glucose results between 100 to 125 mg/dL indicate increased risk for diabetes (prediabetes).Fasting plasma glucose results greater than or equal to 126 mg/dL meet the criteria for diagnosis of diabetes. In the absence of unequivocal hyperglycemia, results should be confirmed by repeat testing. In a patient with classic symptoms of hyperglycemia or hyperglycemic crisis, random plasma glucose results greater than or equal to 200 mg/dL meet the criteria for diagnosis of diabetes.Reference: Standards of Medical Care in Diabetes 2016, [place] [employer]. Diabetes Care. 2016.39(Suppl 1). Performed By: #### 2 4321-2 ####[facility]ORATORYCLIA [id number] [address] [place] [id number] [place] Potassium [Moles/Vol] 3.5 mmol/L Low 3.7-5.1 [facility] Comment on above: Order Comment: Speci men Type: BLOOD SPECIMENOrdering Facility: [facility] Address: [address] [place] [address] Performed By: #### 2 4321-2 ####[facility]ORATORYCLIA [id number] [place] [address] [place] Sodium [Moles/Vol] 135 mmol/L Low 136-144 [facility] Comment on above: Order Comment: Speci men Type: BLOOD SPECIMENOrdering Facility: [facility] Address: [address] [place] [address] Performed By: #### 2 4321-2 ####[facility]ORATORYCLIA [id number] [place] [address] [place] Urea nitrogen [Mass/Vol] 18 mg/dL Normal 7-21 [facility] Comment on above: Order Comment: Speci men Type: BLOOD SPECIMENOrdering Facility: [facility] Address: [address] [place] [address] Performed By: #### 2 4321-2 ####[facility]ORATORYCLIA [id number] [address] [place] CASE MANAGEMon 02-07-2024 CASE MANAGEM Normal [facility] CASE MANAGEM Normal [facility] CBC W Auto Differential pane l (Bld)on 02-07-2024 Basophils (Bld) [#/Vol] 10*3/uL Normal <0.11 [facility] Comment on above: Order Comment: Speci men Type: BLOOD SPECIMENOrdering Facility: [facility] Address: [address] [place] [address] Performed By: #### 5 7021-8 ####[facility] LABORATORYCLIA [id number] [address] [place] Basophils/100 WBC (Bld) 0.2 % Normal [facility] Comment on above: Order Comment: Speci men Type: BLOOD SPECIMENOrdering Facility: [facility] Address: [address] [place] [address] Performed By: #### 5 7021-8 ####[facility] LABORATORYCLIA [id number] [address] Differential cell count method Nom (Bld) Auto Normal [facility] Comment on above: Order Comment: Speci men Type: BLOOD SPECIMENOrdering Facility: [facility] Address: [address] [place] [address] Performed By: #### 5 7021-8 ####[facility] LABORATORYCLIA [id number] [address] [place] Eosinophils (Bld) [#/Vol] 0.42 10*3/uL Normal <0.46 [facility] Comment on above: Order Comment: Speci men Type: BLOOD SPECIMENOrdering Facility: [facility] Address: [address] [place] [address] Performed By: #### 5 7021-8 ####[facility]ORATORYCLIA [id number] [address] Eosinophils/100 WBC (Bld) 4.6 % Normal [facility] Comment on above: Order Comment: Speci men Type: BLOOD SPECIMENOrdering Facility: [facility] Address: [address] [place] [address] Performed By: #### 5 7021-8 ####[facility]ORATORYCLIA [id number] [address] Erythrocyte distribution width (RBC) [Ratio] 14.0 % Normal 11.5-15.0 [facility] Comment on above: Order Comment: Speci men Type: BLOOD SPECIMENOrdering Facility: [facility] Address: [address] [place] [address] Performed By: #### 5 7021-8 ####[facility] LABORATORYCLIA [id number] [address] Hematocrit (Bld) [Volume fraction] 36.7 % Normal 36.0-46.0 [facility] Comment on above: Order Comment: Speci men Type: BLOOD SPECIMENOrdering Facility: [facility] Address: [address] [place] [address] Performed By: #### 5 7021-8 ####[facility] LABORATORYCLIA [id number] [place] [address] [place] Hemoglobin (Bld) [Mass/Vol] 11.6 g/dL Normal 11.5-15.5 [facility] Comment on above: Order Comment: Speci men Type: BLOOD SPECIMENOrdering Facility: [facility] Address: [address] [place] [address] Performed By: #### 5 7021-8 ####[facility] LABORATORYCLIA [id number] [place] [address] [place] Immature granulocytes (Bld) [#/Vol] 0.04 10*3/uL Normal <0.10 [facility] Comment on above: Order Comment: Speci men Type: BLOOD SPECIMENOrdering Facility: [facility] Address: [address] [place] [address] Performed By: #### 5 7021-8 ####[facility]ATORYCLIA [id number] [address] [place] Immature granulocytes/100 WBC (Bld) 0.4 % Normal [facility] Comment on above: Order Comment: Speci men Type: BLOOD SPECIMENOrdering Facility: [facility] Address: [address] [place] [address] Performed By: #### 5 7021-8 ####[facility]ORATORYCLIA [id number] [place] [address] [place] Lymphocytes (Bld) [#/Vol] 1.50 10*3/uL Normal 1.00-4.00 [facility] Comment on above: Order Comment: Speci men Type: BLOOD SPECIMENOrdering Facility: [facility] Address: [address] [place] [address] Performed By: #### 5 7021-8 ####[facility]ORATORYCLIA [id number] [address] [place] Lymphocytes/100 WBC (Bld) 16.3 % Normal [facility] Comment on above: Order Comment: Speci men Type: BLOOD SPECIMENOrdering Facility: [facility] Address: [address] [place] [address] Performed By: #### 5 7021-8 ####[facility]ORATORYCLIA [id number] [address] MCH (RBC) [Entitic mass] 31.4 pg Normal 26.0-34.0 [facility] Comment on above: Order Comment: Speci men Type: BLOOD SPECIMENOrdering Facility: [facility] Address: [address] [place] [address] Performed By: #### 5 7021-8 ####[facility]ORATORYCLIA [id number] [address] MCHC (RBC) [Mass/Vol] 31.6 g/dL Normal 30.5-36.0 [facility] Comment on above: Order Comment: Speci men Type: BLOOD SPECIMENOrdering Facility: [facility] Address: [address] [place] [address] Performed By: #### 5 7021-8 ####[facility]ORATORYCLIA [id number] [address] STATES [facility] MCV (RBC) [Entitic vol] 99.5 fL Normal 80.0-100.0 [facility] Comment on above: Order Comment: Speci men Type: BLOOD SPECIMENOrdering Facility: [facility] Address: [address] [place] [address] Performed By: #### 5 7021-8 ####[facility]ORATORYCLIA [id number] [address] Monocytes (Bld) [#/Vol] 0.55 10*3/uL Normal <0.87 [facility] Comment on above: Order Comment: Speci men Type: BLOOD SPECIMENOrdering Facility: [facility] Address: [address] [place] [address] Performed By: #### 5 7021-8 ####[facility]ORATORYCLIA [id number] [address] Monocytes/100 WBC (Bld) 6.0 % Normal [facility] Comment on above: Order Comment: Speci men Type: BLOOD SPECIMENOrdering Facility: [facility] Address: [facility] [place] [address] Performed By: #### 5 7021-8 ####[facility] LABORATORYCLIA [id number] [place] [address] [place] Neutrophils (Bld) [#/Vol] 6.70 10*3/uL Normal 1.45-7.50 [facility] Comment on above: Order Comment: Speci men Type: BLOOD SPECIMENOrdering Facility: [facility] Address: [address] [place] [address] Performed By: #### 5 7021-8 ####[facility] LABORATORYCLIA [id number] [place] [address] [place] Neutrophils/100 WBC (Bld) 72.5 % Normal [facility] Comment on above: Order Comment: Speci men Type: BLOOD SPECIMENOrdering Facility: [facility] Address: [address] [place] [address] Performed By: #### 5 7021-8 ####[facility]ORATORYCLIA [id number] [place] [address] [place] Nucleated RBC (Bld) [#/Vol] 10*3/uL Normal <0.01 [facility] Comment on above: Order Comment: Speci men Type: BLOOD SPECIMENOrdering Facility: [facility] Address: [address] [place] [address] Performed By: #### 5 7021-8 ####[facility]ORATORYCLIA [id number] [place] [address] [place] Nucleated RBC/100 WBC (Bld) [Ratio] 0.0 /100 WBC Normal [facility] Comment on above: Order Comment: Speci men Type: BLOOD SPECIMENOrdering Facility: [facility] Address: [address] [place] [address] Performed By: #### 5 7021-8 ####[facility]ORATORYCLIA [id number] [address] STATES OF [facility] Platelet mean volume (Bld) [Entitic vol] 9.1 fL Normal 9.0-12.7 [facility] Comment on above: Order Comment: Speci men Type: BLOOD SPECIMENOrdering Facility: [facility] Address: [address] [place] [address] Performed By: #### 5 7021-8 ####[facility] LABORATORYCLIA [id number] [address] [place] Platelets (Bld) [#/Vol] 256 10*3/uL Normal 150-400 [facility] Comment on above: Order Comment: Speci men Type: BLOOD SPECIMENOrdering Facility: [facility] Address: [address] [place] [address] Performed By: #### 5 7021-8 ####[facility] CENTERCLIA [id number] [address] STATES [facility] RBC (Bld) [#/Vol] 3.69 10*6/uL Low 3.90-5.20 [facility] Comment on above: Order Comment: Speci men Type: BLOOD SPECIMENOrdering Facility: [facility] Address: [address] [place] [address] Performed By: #### 5 7021-8 ####[facility]ORATORYCLIA [id number] [address] [place] WBC (Bld) [#/Vol] 9.23 10*3/uL Normal 3.70-11.00 [facility] Comment on above: Order Comment: Speci men Type: BLOOD SPECIMENOrdering Facility: [facility] Address: [address] [place] [address] Performed By: #### 5 7021-8 ####[facility] LABORATORYCLIA [id number] [address] CBC panel Auto (Bld)on 02-06 Erythrocyte distribution width (RBC) [Ratio] 14.1 % Normal 11.5-15.0 [facility] Comment on above: Order Comment: Speci men Type: BLOOD SPECIMENOrdering Facility: [facility] Address: [address] [place] [address] Performed By: #### 5 8410-2 ####[facility]ORATORYCLIA [id number] [address] Hematocrit (Bld) [Volume fraction] 34.6 % Low 36.0-46.0 [facility] Comment on above: Order Comment: Speci men Type: BLOOD SPECIMENOrdering Facility: [facility] Address: [address] [place] [address] Performed By: #### 5 8410-2 ####[facility] LABORATORYCLIA [id number] [address] OF [facility] Hemoglobin (Bld) [Mass/Vol] 11.1 g/dL Low 11.5-15.5 [facility] Comment on above: Order Comment: Speci men Type: BLOOD SPECIMENOrdering Facility: [facility] Address: [address] [place] [address] Performed By: #### 5 8410-2 ####[facility]ORATORYCLIA [id number] [address] MCH (RBC) [Entitic mass] 32.1 pg Normal 26.0-34.0 [facility] Comment on above: Order Comment: Speci men Type: BLOOD SPECIMENOrdering Facility: [facility] Address: [address] [place] [address] Performed By: #### 5 8410-2 ####[facility] LABORATORYCLIA [id number] [address] [place] MCHC (RBC) [Mass/Vol] 32.1 g/dL Normal 30.5-36.0 [facility] Comment on above: Order Comment: Speci men Type: BLOOD SPECIMENOrdering Facility: [facility] Address: [address] [place] [address] Performed By: #### 5 8410-2 ####[facility] LABORATORYCLIA [id number] [place] [address] [place] MCV (RBC) [Entitic vol] 100.0 fL Normal 80.0-100.0 [facility] Comment on above: Order Comment: Speci men Type: BLOOD SPECIMENOrdering Facility: [facility] Address: [address] [place] [address] Performed By: #### 5 8410-2 ####[facility] LABORATORYCLIA [id number] [address] [place] Nucleated RBC (Bld) [#/Vol] 10*3/uL Normal <0.01 [facility] Comment on above: Order Comment: Speci men Type: BLOOD SPECIMENOrdering Facility: [facility] Address: [address] [place] [address] Performed By: #### 5 8410-2 ####[facility]ORATORYCLIA [id number] [address] [place] Platelet mean volume (Bld) [Entitic vol] 9.2 fL Normal 9.0-12.7 [facility] Comment on above: Order Comment: Speci men Type: BLOOD SPECIMENOrdering Facility: [facility] Address: [address] [place] [address] Performed By: #### 5 8410-2 ####[facility]ORATORYCLIA [id number] [address] [place] Platelets (Bld) [#/Vol] 242 10*3/uL Normal 150-400 [facility] Comment on above: Order Comment: Speci men Type: BLOOD SPECIMENOrdering Facility: [facility] Address: [address] [place] [address] Performed By: #### 5 8410-2 ####[facility]ORATORYCLIA [id number] [address] [place] RBC (Bld) [#/Vol] 3.46 10*6/uL Low 3.90-5.20 [facility] Comment on above: Order Comment: Speci men Type: BLOOD SPECIMENOrdering Facility: [facility] Address: [address] [place] [address] Performed By: #### 5 8410-2 ####[facility] LABORATORYCLIA [id number] [place] [address] [place] WBC (Bld) [#/Vol] 7.82 10*3/uL Normal 3.70-11.00 [facility] Comment on above: Order Comment: Speci men Type: BLOOD SPECIMENOrdering Facility: [facility] Address: [address] [place] [address] Performed By: #### 5 8410-2 ####[facility]ORATORYCLIA [id number] [address] [place] CONSULTon 02-07-2024 CONSULT Normal [facility] CONSULT PROGon 02-07-2024 CONSULT PROG Normal [facility] THERAPY NTon 02-07-2024 THERAPY NT Normal [facility] Basic metabolic 2000 panelon 02-06-2024 Anion gap [Moles/Vol] 11 mmol/L Normal 9-18 [facility] Comment on above: Order Comment: Speci men Type: BLOOD SPECIMENOrdering Facility: [facility] Address: [address] [place] [id number] Performed By: #### 2 4321-2, , 1 ####[facility]ORATORYCLIA [id number] [place] [address] [place] Calcium [Mass/Vol] 9.0 mg/dL Normal 8.5-10.2 [facility] Comment on above: Order Comment: Speci men Type: BLOOD SPECIMENOrdering Facility: [facility] Address: [address] [place] [address] Performed By: #### 2 4321-2, 09941-2, 2777-1 ####[facility] LABORATORYCLIA [id number] [place] [address] [place] Chloride [Moles/Vol] 98 mmol/L Normal 97-105 [facility] Comment on above: Order Comment: Speci men Type: BLOOD SPECIMENOrdering Facility: [facility] Address: [address] [place] [address] Performed By: #### 2 4321-2, , 2776-10 ####[facility]ORATORYCLIA [id number] [place] [address] [place] CO2 [Moles/Vol] 28 mmol/L Normal 22-30 [facility] Comment on above: Order Comment: Speci men Type: BLOOD SPECIMENOrdering Facility: [facility] Address: [address] [place] [address] Performed By: #### 2 4321-2, , 2776-10 ####[facility] CENTERCLIA [id number] [place] [address] [place] Creatinine [Mass/Vol] 0.77 mg/dL Normal 0.58-0.96 [facility] Comment on above: Order Comment: Speci men Type: BLOOD SPECIMENOrdering Facility: [facility] Address: [address] [place] [address] Performed By: #### 2 432-2, , 2776-10 ####[facility] CENTERCLIA [id number] [place] [id number] [place] [facility] Creatinine and Glomerular filtration rate.predicted panel (S/P/Bld) 77 mL/min/1.73m??? Normal >=60 [facility] Comment on above: Order Comment: Speci men Type: BLOOD SPECIMENOrdering Facility: [facility] Address: [address] [place] [address] Result Comment: Felicia mated Glomerular Filtration Rate (eGFR) is calculated using the 2020 CKD-EPI creatinine equation. This equation utilizes serum creatinine, sex, and age as parameters. The creatinine assay has traceable calibration to isotope dilution-mass spectrometry. Refer to KDIGO guidelines for clinical interpretation. In patients with unstable renal function, e.g. those with acute kidney injury, the eGFR may not accurately reflect actual GFR. Performed By: #### 2 4321-2, , 2776-10 ####[facility] LABORATORYCLIA [id number] [place] [address] [place] Glucose [Mass/Vol] 118 mg/dL High 74-99 [facility] Comment on above: Order Comment: Speci men Type: BLOOD SPECIMENOrdering Facility: [facility] Address: [address] [place] [address] Result Comment: The [place] Diabetes [employer] (ADA) provides guidance for cutoff values for fasting glucose and random glucose. The ADA defines fasting as no caloric intake for at least 8 hours. Fasting plasma glucose results between 100 to 125 mg/dL indicate increased risk for diabetes (prediabetes).Fasting plasma glucose results greater than or equal to 126 mg/dL meet the criteria for diagnosis of diabetes. In the absence of unequivocal hyperglycemia, results should be confirmed by repeat testing. In a patient with classic symptoms of hyperglycemia or hyperglycemic crisis, random plasma glucose results greater than or equal to 200 mg/dL meet the criteria for diagnosis of diabetes.Reference: Standards of Medical Care in Diabetes 2016, [place] [employer]. Diabetes Care. 2016.39(Suppl 1). Performed By: #### 2 4321-2, , 2776-10 ####[facility]ORATORYCLIA [id number] [place] [address] [place] Potassium [Moles/Vol] 3.3 mmol/L Low 3.7-5.1 [facility] Comment on above: Order Comment: Kristin royal Type: BLOOD SPECIMENOrdering Facility: [facility] Address: [address] [place] [address] Performed By: #### 2 4321-2, , 2776-10 ####[facility]ORATORYCLIA [id number] [place] [address] [place] Sodium [Moles/Vol] 137 mmol/L Normal 136-144 [facility] Comment on above: Order Comment: Speci men Type: BLOOD SPECIMENOrdering Facility: [facility] Address: [address] [place] [address] Performed By: #### 2 4321-2, , 2776-10 ####[facility]ORATORYCLIA [id number] [place] [address] [place] Urea nitrogen [Mass/Vol] 16 mg/dL Normal 7-21 [facility] Comment on above: Order Comment: Speci men Type: BLOOD SPECIMENOrdering Facility: [facility] Address: [address] [place] [address] Performed By: #### 2 4321-2, 70186-6, 2777-1 ####[facility]ORATORYCLIA [id number] [place] [address] [place] CBC W Auto Differential pane l (Bld)on 02-06-2024 Basophils (Bld) [#/Vol] 0.04 10*3/uL Normal <0.11 [facility] Comment on above: Order Comment: Speci men Type: BLOOD SPECIMENOrdering Facility: [facility] Address: [address] [place] [address] Performed By: #### 5 7021-8 ####[facility]ORATORYCLIA [id number] [place] [address] [place] Basophils/100 WBC (Bld) 0.4 % Normal [facility] Comment on above: Order Comment: Speci men Type: BLOOD SPECIMENOrdering Facility: [facility] Address: [address] [place] [address] Performed By: #### 5 7021-8 ####[facility]ORATORYCLIA [id number] [address] [place] Differential cell count method Nom (Bld) Auto Normal [facility] Comment on above: Order Comment: Speci men Type: BLOOD SPECIMENOrdering Facility: [facility] Address: [address] [place] [address] Performed By: #### 5 7021-8 ####[facility]ORATORYCLIA [id number] [place] [address] [place] Eosinophils (Bld) [#/Vol] 0.45 10*3/uL Normal <0.46 [facility] Comment on above: Order Comment: Speci men Type: BLOOD SPECIMENOrdering Facility: [facility] Address: [address] [place] [address] Performed By: #### 5 7021-8 ####[facility]ORATORYCLIA [id number] [address] [place] Eosinophils/100 WBC (Bld) 4.3 % Normal [facility] Comment on above: Order Comment: Speci men Type: BLOOD SPECIMENOrdering Facility: [facility] Address: [address] [place] [address] Performed By: #### 5 7021-8 ####[facility]ORATORYCLIA [id number] [address] [place] Erythrocyte distribution width (RBC) [Ratio] 13.9 % Normal 11.5-15.0 [facility] Comment on above: Order Comment: Speci men Type: BLOOD SPECIMENOrdering Facility: [facility] Address: [address] [place] [address] Performed By: #### 5 7021-8 ####[facility]ORATORYCLIA [id number] [address] [place] Hematocrit (Bld) [Volume fraction] 35.6 % Low 36.0-46.0 [facility] Comment on above: Order Comment: Speci men Type: BLOOD SPECIMENOrdering Facility: [facility] Address: [address] [place] [address] Performed By: #### 5 7021-8 ####[facility]ORATORYCLIA [id number] [address] [place] Hemoglobin (Bld) [Mass/Vol] 11.4 g/dL Low 11.5-15.5 [facility] Comment on above: Order Comment: Speci men Type: BLOOD SPECIMENOrdering Facility: [facility] Address: [address] [place] [address] Performed By: #### 5 7021-8 ####[facility]ORATORYCLIA [id number] [address] [place] Immature granulocytes (Bld) [#/Vol] 0.04 10*3/uL Normal <0.10 [facility] Comment on above: Order Comment: Speci men Type: BLOOD SPECIMENOrdering Facility: [facility] Address: [address] [place] [address] Performed By: #### 5 7021-8 ####[facility]ORATORYCLIA [id number] [address] Immature granulocytes/100 WBC (Bld) 0.4 % Normal [facility] Comment on above: Order Comment: Speci men Type: BLOOD SPECIMENOrdering Facility: [facility] Address: [address] [place] [address] Performed By: #### 5 7021-8 ####[facility]ORATORYCLIA [id number] [address] [place] Lymphocytes (Bld) [#/Vol] 2.06 10*3/uL Normal 1.00-4.00 [facility] Comment on above: Order Comment: Speci men Type: BLOOD SPECIMENOrdering Facility: [facility] Address: [address] [place] [address] Performed By: #### 5 7021-8 ####[facility]ORATORYCLIA [id number] [address] Lymphocytes/100 WBC (Bld) 19.8 % Normal [facility] Comment on above: Order Comment: Speci men Type: BLOOD SPECIMENOrdering Facility: [facility] Address: [address] [place] [address] Performed By: #### 5 7021-8 ####[facility]ORATORYCLIA [id number] [address] [place] MCH (RBC) [Entitic mass] 31.8 pg Normal 26.0-34.0 [facility] Comment on above: Order Comment: Speci men Type: BLOOD SPECIMENOrdering Facility: [facility] Address: [address] [place] [address] Performed By: #### 5 7021-8 ####[facility]ORATORYCLIA [id number] [address] [place] MCHC (RBC) [Mass/Vol] 32.0 g/dL Normal 30.5-36.0 [facility] Comment on above: Order Comment: Speci men Type: BLOOD SPECIMENOrdering Facility: [facility] Address: [address] [place] [address] Performed By: #### 5 7021-8 ####[facility]ORATORYCLIA [id number] [address] [place] MCV (RBC) [Entitic vol] 99.2 fL Normal 80.0-100.0 [facility] Comment on above: Order Comment: Speci men Type: BLOOD SPECIMENOrdering Facility: [facility] Address: [address] [place] [address] Performed By: #### 5 7021-8 ####[facility]ORATORYCLIA [id number] [place] [address] [place] Monocytes (Bld) [#/Vol] 0.74 10*3/uL Normal <0.87 [facility] Comment on above: Order Comment: Speci men Type: BLOOD SPECIMENOrdering Facility: [facility] Address: [address] [place] [address] Performed By: #### 5 7021-8 ####[facility]ORATORYCLIA [id number] [address] [place] Monocytes/100 WBC (Bld) 7.1 % Normal [facility] Comment on above: Order Comment: Speci men Type: BLOOD SPECIMENOrdering Facility: [facility] [facility] Address: [address] [place] [address] Performed By: #### 5 7021-8 ####[facility]ORATORYCLIA [id number] [place] [address] [place] Neutrophils (Bld) [#/Vol] 7.06 10*3/uL Normal 1.45-7.50 [facility] Comment on above: Order Comment: Speci men Type: BLOOD SPECIMENOrdering Facility: [facility] Address: [address] [place] [address] Performed By: #### 5 7021-8 ####[facility]ORATORYCLIA [id number] [address] [place] Neutrophils/100 WBC (Bld) 68.0 % Normal [facility] Comment on above: Order Comment: Speci men Type: BLOOD SPECIMENOrdering Facility: [facility] Address: [facility] [place] [address] Performed By: #### 5 7021-8 ####[facility] LABORATORYCLIA [id number] [place] [address] [place] Nucleated RBC (Bld) [#/Vol] 10*3/uL Normal <0.01 [facility] Comment on above: Order Comment: Speci men Type: BLOOD SPECIMENOrdering Facility: [facility] Address: [address] [place] [address] Performed By: #### 5 7021-8 ####[facility]ORATORYCLIA [id number] [place] [address] [place] Nucleated RBC/100 WBC (Bld) [Ratio] 0.0 /100 WBC Normal [facility] Comment on above: Order Comment: Speci men Type: BLOOD SPECIMENOrdering Facility: [facility] Address: [address] [place] [address] Performed By: #### 5 7021-8 ####[facility]ORATORYCLIA [id number] [place] [address] [place] Platelet mean volume (Bld) [Entitic vol] 8.9 fL Low 9.0-12.7 [facility] Comment on above: Order Comment: Speci men Type: BLOOD SPECIMENOrdering Facility: [facility] Address: [address] [place] [address] Performed By: #### 5 7021-8 ####[facility]ATORYCLIA [id number] [place] [address] [place] Platelets (Bld) [#/Vol] 228 10*3/uL Normal 150-400 [facility] Comment on above: Order Comment: Speci men Type: BLOOD SPECIMENOrdering Facility: [facility] Address: [address] [place] [address] Performed By: #### 5 7021-8 ####[facility]ATORYCLIA [id number] [address] [place] RBC (Bld) [#/Vol] 3.59 10*6/uL Low 3.90-5.20 [facility] Comment on above: Order Comment: Speci men Type: BLOOD SPECIMENOrdering Facility: [facility] Address: [address] [place] [address] Performed By: #### 5 7021-8 ####[facility]ATORYCLIA [id number] [address] WBC (Bld) [#/Vol] 10.39 10*3/uL Normal 3.70-11.00 [facility] Comment on above: Order Comment: Speci men Type: BLOOD SPECIMENOrdering Facility: [facility] Address: [address] [place] [address] Performed By: #### 5 7021-8 ####[facility]ORATORYCLIA [id number] [address] OF [facility] CONSULT PROGon 02-06-2024 CONSULT PROG Normal [facility] Magnesium SerPl-ncon 02-05 Magnesium [Mass/Vol] 2.3 mg/dL Normal 1.7-2.3 [facility] Comment on above: Order Comment: Speci men Type: BLOOD SPECIMENOrdering Facility: [facility] Address: [address] [place] [address] Performed By: #### 2 4321-2, 37680-9, 2777-1 ####[facility]ATORYCLIA [id number] [address] [place] NUTRITIONon 02-06-2024 NUTRITION Normal [facility] Phosphate SerPl-mCncon 02-05 Phosphate [Mass/Vol] 2.7 mg/dL Normal 2.7-4.8 [facility] Comment on above: Order Comment: Speci men Type: BLOOD SPECIMENOrdering Facility: [facility] Address: [address] [place] [address] Performed By: #### 2 4321-2, , 2776-10 ####[facility]ORATORYCLIA [id number] [place] [address] [place] Bacteria Ur Culton Bacteria identified Cx Nom (U) Abnormal [facility] Comment on above: Performed By: #### 6 30-4 ####[facility]ATORYCLIA [id number] [place] [address] [place] Basic metabolic 2000 panelon 02-05-2024 Anion gap [Moles/Vol] 11 mmol/L Normal 9-18 [facility] Comment on above: Order Comment: Speci men Type: BLOOD SPECIMENOrdering Facility: [facility] Address: [address] [place] [address] Performed By: #### 2 4321-2, , 2776-10 ####[facility]ATORYCLIA [id number] [place] [address] [place] Calcium [Mass/Vol] 8.9 mg/dL Normal 8.5-10.2 [facility] Comment on above: Order Comment: Speci men Type: BLOOD SPECIMENOrdering Facility: [facility] Address: [address] [place] [address] Performed By: #### 2 4321-2, , 2776-10 ####[facility]ATORYCLIA [id number] [place] [address] [place] Chloride [Moles/Vol] 103 mmol/L Normal 97-105 [facility] Comment on above: Order Comment: Speci men Type: BLOOD SPECIMENOrdering Facility: [facility] Address: [address] [place] [address] Performed By: #### 2 4321-2, , 2776-10 ####[facility]ATORYCLIA [id number] [place] [address] [place] CO2 [Moles/Vol] 23 mmol/L Normal 22-30 [facility] Comment on above: Order Comment: Speci men Type: BLOOD SPECIMENOrdering Facility: [facility] Address: [address] [place] [address] Performed By: #### 2 4321-2, , 2776-10 ####[facility] HOSPITALIA [id number] [place] [id number] [place] [facility] Creatinine [Mass/Vol] 0.68 mg/dL Normal 0.58-0.96 [facility] Comment on above: Order Comment: Specedda men Type: BLOOD SPECIMENOrdering Facility: [facility] Address: [address] [place] [address] Performed By: #### 2 4321-2, , 2776-10 ####[facility] HOSPITALIA [id number] [place] [id number] [place] [facility] Creatinine and Glomerular filtration rate.predicted panel (S/P/Bld) 87 mL/min/1.73m??? Normal >=60 [facility] Comment on above: Order Comment: Kristin paige Type: BLOOD SPECIMENOrdering Facility: [facility] Address: [address] [place] [address] Result Comment: Felicia mated Glomerular Filtration Rate (eGFR) is calculated using the 2020 CKD-EPI creatinine equation. This equation utilizes serum creatinine, sex, and age as parameters. The creatinine assay has traceable calibration to isotope dilution-mass spectrometry. Refer to KDIGO guidelines for clinical interpretation. In patients with unstable renal function, e.g. those with acute kidney injury, the eGFR may not accurately reflect actual GFR. Performed By: #### 2 4321-2, , 2776-10 ####[facility] LABORATORYIA [id number] [place] [id number] [place] Glucose [Mass/Vol] 139 mg/dL High 74-99 [facility] Comment on above: Order Comment: Kristin paige Type: BLOOD SPECIMENOrdering Facility: [facility] Address: [address] [place] [address] Result Comment: The [place] Diabetes [employer] (ADA) provides guidance for cutoff values for fasting glucose and random glucose. The ADA defines fasting as no caloric intake for at least 8 hours. Fasting plasma glucose results between 100 to 125 mg/dL indicate increased risk for diabetes (prediabetes).Fasting plasma glucose results greater than or equal to 126 mg/dL meet the criteria for diagnosis of diabetes. In the absence of unequivocal hyperglycemia, results should be confirmed by repeat testing. In a patient with classic symptoms of hyperglycemia or hyperglycemic crisis, random plasma glucose results greater than or equal to 200 mg/dL meet the criteria for diagnosis of diabetes.Reference: Standards of Medical Care in Diabetes 2016, [place] [employer]. Diabetes Care. 2016.39(Suppl 1). Performed By: #### 2 4321-2, , 2776-10 ####[facility]ORATORYCLIA [id number] [place] [id number] [place] Potassium [Moles/Vol] 3.7 mmol/L Normal 3.7-5.1 [facility] Comment on above: Order Comment: Kristin paige Type: BLOOD SPECIMENOrdering Facility: [facility] Address: [address] [place] [address] Performed By: #### 2 432-2, , 2776-10 ####[facility]ORATORYCLIA [id number] [place] [address] [place] Sodium [Moles/Vol] 137 mmol/L Normal 136-144 [facility] Comment on above: Order Comment: Kristin paige Type: BLOOD SPECIMENOrdering Facility: [facility] Address: [address] [place] [address] Performed By: #### 2 4321-2, , 2776-10 ####[facility]ORATORYCLIA [id number] [place] [id number] [place] Urea nitrogen [Mass/Vol] 15 mg/dL Normal 7-21 [facility] Comment on above: Order Comment: Kristin paige Type: BLOOD SPECIMENOrdering Facility: [facility] Address: [address] [place] [address] Performed By: #### 2 4321-2, , 2776-10 ####[facility]ORATORYCLIA [id number] [place] [id number] [place] CASE MANAGEMon 02-05-2024 CASE MANAGEM Normal [facility] CBC W Auto Differential pane l (Bld)on 02-05-2024 Basophils (Bld) [#/Vol] 10*3/uL Normal <0.11 [facility] Comment on above: Order Comment: Speci men Type: BLOOD SPECIMENOrdering Facility: [facility] Address: [address] [place] [address] Performed By: #### 5 7021-8 ####[facility]ORATORYCLIA [id number] [address] [place] Basophils/100 WBC (Bld) 0.2 % Normal [facility] Comment on above: Order Comment: Speci men Type: BLOOD SPECIMENOrdering Facility: [facility] Address: [address] [place] [address] Performed By: #### 5 7021-8 ####[facility]ORATORYCLIA [id number] [address] OF [facility] Differential cell count method Nom (Bld) Auto Normal [facility] Comment on above: Order Comment: Speci men Type: BLOOD SPECIMENOrdering Facility: [facility] Address: [address] [place] [address] Performed By: #### 5 7021-8 ####[facility]ATORYCLIA [id number] [place] [address] [place] Eosinophils (Bld) [#/Vol] 0.06 10*3/uL Normal <0.46 [facility] Comment on above: Order Comment: Speci men Type: BLOOD SPECIMENOrdering Facility: [facility] Address: [address] [place] [address] Performed By: #### 5 7021-8 ####[facility]ATORYCLIA [id number] [address] [place] Eosinophils/100 WBC (Bld) 0.5 % Normal [facility] Comment on above: Order Comment: Speci men Type: BLOOD SPECIMENOrdering Facility: [facility] Address: [address] [place] [address] Performed By: #### 5 7021-8 ####[facility]ATORYCLIA [id number] [address] STATES OF [facility] Erythrocyte distribution width (RBC) [Ratio] 13.6 % Normal 11.5-15.0 [facility] Comment on above: Order Comment: Speci men Type: BLOOD SPECIMENOrdering Facility: [facility] Address: [address] [place] [address] Performed By: #### 5 7021-8 ####[facility]ORATORYCLIA [id number] [address] [place] Hematocrit (Bld) [Volume fraction] 32.3 % Low 36.0-46.0 [facility] Comment on above: Order Comment: Speci men Type: BLOOD SPECIMENOrdering Facility: [facility] Address: [address] [place] [address] Performed By: #### 5 7021-8 ####[facility]ATORYCLIA [id number] [address] Hemoglobin (Bld) [Mass/Vol] 10.9 g/dL Low 11.5-15.5 [facility] Comment on above: Order Comment: Speci men Type: BLOOD SPECIMENOrdering Facility: [facility] Address: [address] [place] [address] Performed By: #### 5 7021-8 ####[facility]ORATORYCLIA [id number] [address] [place] Immature granulocytes (Bld) [#/Vol] 0.04 10*3/uL Normal <0.10 [facility] Comment on above: Order Comment: Speci men Type: BLOOD SPECIMENOrdering Facility: [facility] Address: [address] [place] [address] Performed By: #### 5 7021-8 ####[facility]ATORYCLIA [id number] [address] Immature granulocytes/100 WBC (Bld) 0.3 % Normal [facility] Comment on above: Order Comment: Speci men Type: BLOOD SPECIMENOrdering Facility: [facility] Address: [address] [place] [address] Performed By: #### 5 7021-8 ####[facility]ORATORYCLIA [id number] [address] Lymphocytes (Bld) [#/Vol] 1.38 10*3/uL Normal 1.00-4.00 [facility] Comment on above: Order Comment: Speci men Type: BLOOD SPECIMENOrdering Facility: [facility] Address: [address] [place] [address] Performed By: #### 5 7021-8 ####[facility]ORATORYCLIA [id number] [address] Lymphocytes/100 WBC (Bld) 11.6 % Normal [facility] Comment on above: Order Comment: Speci men Type: BLOOD SPECIMENOrdering Facility: [facility] Address: [address] [place] [address] Performed By: #### 5 7021-8 ####[facility]ORATORYCLIA [id number] [address] MCH (RBC) [Entitic mass] 32.2 pg Normal 26.0-34.0 [facility] Comment on above: Order Comment: Speci men Type: BLOOD SPECIMENOrdering Facility: [facility] Address: [address] [place] [address] Performed By: #### 5 7021-8 ####[facility]ATORYCLIA [id number] [address] MCHC (RBC) [Mass/Vol] 33.7 g/dL Normal 30.5-36.0 [facility] Comment on above: Order Comment: Speci men Type: BLOOD SPECIMENOrdering Facility: [facility] Address: [address] [place] [address] Performed By: #### 5 7021-8 ####[facility]ORATORYCLIA [id number] [address] MCV (RBC) [Entitic vol] 95.6 fL Normal 80.0-100.0 [facility] Comment on above: Order Comment: Speci men Type: BLOOD SPECIMENOrdering Facility: [facility] Address: [facility] [place] [address] Performed By: #### 5 7021-8 ####[facility] LABORATORYCLIA [id number] [place] [address] [place] Monocytes (Bld) [#/Vol] 0.68 10*3/uL Normal <0.87 [facility] Comment on above: Order Comment: Speci men Type: BLOOD SPECIMENOrdering Facility: [facility] Address: [address] [place] [address] Performed By: #### 5 7021-8 ####[facility]ATORYCLIA [id number] [address] [place] Monocytes/100 WBC (Bld) 5.7 % Normal [facility] Comment on above: Order Comment: Speci men Type: BLOOD SPECIMENOrdering Facility: [facility] Address: [address] [place] [address] Performed By: #### 5 7021-8 ####[facility]ORATORYCLIA [id number] [place] [address] [place] Neutrophils (Bld) [#/Vol] 9.68 10*3/uL High 1.45-7.50 [facility] Comment on above: Order Comment: Speci men Type: BLOOD SPECIMENOrdering Facility: [facility] Address: [address] [place] [address] Performed By: #### 5 7021-8 ####[facility] LABORATORYCLIA [id number] [place] [address] [place] Neutrophils/100 WBC (Bld) 81.7 % Normal [facility] Comment on above: Order Comment: Speci men Type: BLOOD SPECIMENOrdering Facility: [facility] Address: [address] [place] [address] Performed By: #### 5 7021-8 ####[facility]ATORYCLIA [id number] [address] [place] Nucleated RBC (Bld) [#/Vol] 10*3/uL Normal <0.01 [facility] Comment on above: Order Comment: Speci men Type: BLOOD SPECIMENOrdering Facility: [facility] Address: [address] [place] [address] Performed By: #### 5 7021-8 ####[facility]ORATORYCLIA [id number] [address] [place] Nucleated RBC/100 WBC (Bld) [Ratio] 0.0 /100 WBC Normal [facility] Comment on above: Order Comment: Speci men Type: BLOOD SPECIMENOrdering Facility: [facility] Address: [address] [place] [address] Performed By: #### 5 7021-8 ####[facility]ORATORYCLIA [id number] [place] [address] [place] Platelet mean volume (Bld) [Entitic vol] 8.9 fL Low 9.0-12.7 [facility] Comment on above: Order Comment: Speci men Type: BLOOD SPECIMENOrdering Facility: [facility] Address: [address] [place] [address] Performed By: #### 5 7021-8 ####[facility]ATORYCLIA [id number] [address] [place] Platelets (Bld) [#/Vol] 234 10*3/uL Normal 150-400 [facility] Comment on above: Order Comment: Speci men Type: BLOOD SPECIMENOrdering Facility: [facility] Address: [address] [place] [address] Performed By: #### 5 7021-8 ####[facility]ATORYCLIA [id number] [address] [place] RBC (Bld) [#/Vol] 3.38 10*6/uL Low 3.90-5.20 [facility] Comment on above: Order Comment: Speci men Type: BLOOD SPECIMENOrdering Facility: [facility] Address: [address] [place] [address] Performed By: #### 5 7021-8 ####[facility]ATORYCLIA [id number] [address] WBC (Bld) [#/Vol] 11.86 10*3/uL High 3.70-11.00 [facility] Comment on above: Order Comment: Speci men Type: BLOOD SPECIMENOrdering Facility: [facility] Address: [address] [place] [address] Performed By: #### 5 7021-8 ####[facility]ORATORYCLIA [id number] [address] [place] CONSULTon 02-05-2024 CONSULT Normal [facility] Calcium.ionized [Moles/Vol]o n 02-05-2024 Calcium.ionized (BldV) [Mass/Vol] 1.20 mmol/L Normal 1.08-1.30 [facility] Comment on above: Order Comment: Speci men Type: BLOOD SPECIMENOrdering Facility: [facility] Address: [address] [place] [address] Performed By: #### 1 995-0 ####[facility]ATORYCLIA [id number] [address] Calcium.ionized adjusted to pH 7.4 (Bld) [Moles/Vol] 1.23 mmol/L Normal 1.08-1.30 [facility] Comment on above: Order Comment: Speci men Type: BLOOD SPECIMENOrdering Facility: [facility] Address: [address] [place] [address] Performed By: #### 1 995-0 ####[facility]ATORYCLIA [id number] [address] Magnesium SerPl-mCncon 02-04 Magnesium [Mass/Vol] 2.0 mg/dL Normal 1.7-2.3 [facility] Comment on above: Order Comment: Speci men Type: BLOOD SPECIMENOrdering Facility: [facility] Address: [address] [place] [address] Performed By: #### 2 4321-2, 08328-2, 2777-1 ####[facility]ATORYCLIA [id number] [address] [place] Phosphate SerPl-mCncon 02-04 Phosphate [Mass/Vol] 2.9 mg/dL Normal 2.7-4.8 [facility] Comment on above: Order Comment: Speci men Type: BLOOD SPECIMENOrdering Facility: [facility] Address: [address] [place] [address] Performed By: #### 2 4321-2, 55936-3, 2777-1 ####[facility]ATORYCLIA [id number] [address] THERAPY NTon 02-05-2024 THERAPY NT Normal [facility] THERAPY NT Normal [facility] THERAPY NT Normal [facility] ANES POSTPROC EVALon 024 ANES POSTPROC EVAL Normal [facility] ANES PRE-OPon 02-04-2024 ANES PRE-OP Normal [facility] ARTERIAL BLOOD GASESon 02-03 Base deficit (BldA) [Moles/Vol] mmol/L Normal -2-0 [facility] Comment on above: Order Comment: Speci men Type: ARTERIAL BLOOD SPECIMENOrdering Facility: [facility] Address: [address] [place] [address] Performed By: #### A LLBG ####[facility]ATORYCLIA [id number] [address] [place] Body temperature 98.06 [degF] Normal [facility] Comment on above: Order Comment: Speci men Type: ARTERIAL BLOOD SPECIMENOrdering Facility: [facility] Address: [address] [place] [address] Performed By: #### A LLBG ####[facility]ATORYCLIA [id number] [address] Calcium.ionized (BldV) [Mass/Vol] 1.21 mmol/L Normal 1.08-1.30 [facility] Comment on above: Order Comment: Speci men Type: ARTERIAL BLOOD SPECIMENOrdering Facility: [facility] Address: [address] [place] [address] Performed By: #### A LLBG ####[facility]ATORYCLIA [id number] [place] [address] [place] Calcium.ionized adjusted to pH 7.4 (BldA) [Moles/Vol] 1.21 mmol/L Normal 1.08-1.30 [facility] Comment on above: Order Comment: Speci men Type: ARTERIAL BLOOD SPECIMENOrdering Facility: [facility] Address: [address] [place] [address] Performed By: #### A LLBG ####[facility]ATORYCLIA [id number] [address] [place] Carboxyhemoglobin (BldA) [Mass fraction] 1.4 % Normal 0.0-2.0 [facility] Comment on above: Order Comment: Speci men Type: ARTERIAL BLOOD SPECIMENOrdering Facility: [facility] Address: [address] [place] [address] Result Comment: Carb oxyhemoglobin Reference Range for Smokers: 2.0-8.0% Performed By: #### A LLBG ####[facility]ATORYCLIA [id number] [place] [address] [place] Chloride [Moles/Vol] 108 mmol/L Normal 102-109 [facility] Comment on above: Order Comment: Speci men Type: ARTERIAL BLOOD SPECIMENOrdering Facility: [facility] Address: [address] [place] [address] Performed By: #### A LLBG ####[facility]ATORYCLIA [id number] [place] [address] [place] CO2 (Bld) [Partial pressure] 40 mm Hg Normal 36-46 [facility] Comment on above: Order Comment: Speci men Type: ARTERIAL BLOOD SPECIMENOrdering Facility: [facility] Address: [address] [place] [address] Performed By: #### A LLBG ####[facility]ORATORYCLIA [id number] [address] OF [facility] CO2 adjusted to patient's actual temperature (Bld) [Partial pressure] 39 mmHg Normal 36-46 [facility] Comment on above: Order Comment: Speci men Type: ARTERIAL BLOOD SPECIMENOrdering Facility: [facility] Address: [address] [place] [address] Performed By: #### A LLBG ####[facility]ATORYCLIA [id number] [address] [place] Glucose [Mass/Vol] 161 mg/dL High 60-105 [facility] Comment on above: Order Comment: Speci men Type: ARTERIAL BLOOD SPECIMENOrdering Facility: [facility] Address: [address] [place] [address] Performed By: #### A LLBG ####[facility]ATORYCLIA [id number] [address] [place] HCO3 (Bld) [Moles/Vol] 24 mmol/L Normal 22-26 [facility] Comment on above: Order Comment: Speci men Type: ARTERIAL BLOOD SPECIMENOrdering Facility: [facility] Address: [address] [place] [address] Performed By: #### A LLBG ####[facility]ATORYCLIA [id number] [address] [place] Hematocrit (Bld) [Volume fraction] 34.0 % Low 36.0-46.0 [facility] Comment on above: Order Comment: Speci men Type: ARTERIAL BLOOD SPECIMENOrdering Facility: [facility] Address: [address] [place] [address] Performed By: #### A LLBG ####[facility] LABORATORYCLIA [id number] [address] [place] Lactate [Moles/Vol] 1.5 mmol/L Normal 0.5-2.2 [facility] Comment on above: Order Comment: Speci men Type: ARTERIAL BLOOD SPECIMENOrdering Facility: [facility] Address: [address] [place] [address] Performed By: #### A LLBG ####[facility]ORATORYCLIA [id number] [place] [id number] [place] Methemoglobin (Bld) [Mass fraction] 0.5 % Normal 0.0-1.5 [facility] Comment on above: Order Comment: Speci men Type: ARTERIAL BLOOD SPECIMENOrdering Facility: [facility] Address: [address] [place] [address] Performed By: #### A LLBG ####[facility]ORATORYCLIA [id number] [address] [place] O2 THERAPY Hi-Flow Nasal Cannula-Heated Normal [facility] Comment on above: Order Comment: Speci men Type: ARTERIAL BLOOD SPECIMENOrdering Facility: [facility] Address: [address] [place] [address] Result Comment: 60L 63% on airvo Performed By: #### A LLBG ####[facility]ATORYCLIA [id number] [address] [place] Oxygen (Bld) [Partial pressure] 111 mm Hg High 85-95 [facility] Comment on above: Order Comment: Speci men Type: ARTERIAL BLOOD SPECIMENOrdering Facility: [facility] Address: [address] [place] [address] Performed By: #### A LLBG ####[facility]ATORYCLIA [id number] [address] Oxygen adjusted to patient's actual temperature (Bld) [Partial pressure] 109 mmHg High 85-95 [facility] Comment on above: Order Comment: Speci men Type: ARTERIAL BLOOD SPECIMENOrdering Facility: [facility] Address: [address] [place] [address] Performed By: #### A LLBG ####[facility]ORATORYCLIA [id number] [address] [place] Oxyhemoglobin (BldA) [Mass fraction] 97 % Normal 95-98 [facility] Comment on above: Order Comment: Speci men Type: ARTERIAL BLOOD SPECIMENOrdering Facility: [facility] Address: [address] [place] [address] Performed By: #### A LLBG ####[facility]ORATORYCLIA [id number] [place] [address] [place] pH (Bld) 7.40 [pH] Normal 7.35-7.45 [facility] Comment on above: Order Comment: Speci men Type: ARTERIAL BLOOD SPECIMENOrdering Facility: [facility] Address: [address] [place] [address] Performed By: #### A LLBG ####[facility]ATORYCLIA [id number] [address] [place] pH adjusted to patient's actual temperature (Bld) 7.40 Normal 7.35-7.45 [facility] Comment on above: Order Comment: Speci men Type: ARTERIAL BLOOD SPECIMENOrdering Facility: [facility] Address: [address] [place] [address] Performed By: #### A LLBG ####[facility]ORATORYCLIA [id number] [place] [address] [place] Potassium [Moles/Vol] 3.7 mmol/L Normal 3.5-5.0 [facility] Comment on above: Order Comment: Speci men Type: ARTERIAL BLOOD SPECIMENOrdering Facility: [facility] Address: [address] [place] [address] Performed By: #### A LLBG ####[facility]ORATORYCLIA [id number] [place] [address] [place] Sodium [Moles/Vol] 136 mmol/L Normal 136-144 [facility] Comment on above: Order Comment: Speci men Type: ARTERIAL BLOOD SPECIMENOrdering Facility: [facility] Address: [address] [place] [address] Performed By: #### A LLBG ####[facility]ORATORYCLIA [id number] [place] [address] [place] Base deficit (BldA) [Moles/Vol] -2 mmol/L Normal -2-0 [facility] Comment on above: Order Comment: Speci men Type: ARTERIAL BLOOD SPECIMENOrdering Facility: [facility] Address: [address] [place] [address] Performed By: #### A LLBG ####[facility]ORATORYCLIA [id number] [address] OF [facility] Body temperature 97.7 [degF] Normal [facility] Comment on above: Order Comment: Speci men Type: ARTERIAL BLOOD SPECIMENOrdering Facility: [facility] Address: [address] [place] [address] Performed By: #### A LLBG ####[facility]ATORYCLIA [id number] [address] OF [facility] Calcium.ionized (BldV) [Mass/Vol] 1.18 mmol/L Normal 1.08-1.30 [facility] Comment on above: Order Comment: Speci men Type: ARTERIAL BLOOD SPECIMENOrdering Facility: [facility] Address: [address] [place] [address] Performed By: #### A LLBG ####[facility]ORATORYCLIA [id number] [address] Calcium.ionized adjusted to pH 7.4 (BldA) [Moles/Vol] 1.15 mmol/L Normal 1.08-1.30 [facility] Comment on above: Order Comment: Speci men Type: ARTERIAL BLOOD SPECIMENOrdering Facility: [facility] Address: [address] [place] [address] Performed By: #### A LLBG ####[facility]ORATORYCLIA [id number] [address] [place] Carboxyhemoglobin (BldA) [Mass fraction] 1.5 % Normal 0.0-2.0 [facility] Comment on above: Order Comment: Speci men Type: ARTERIAL BLOOD SPECIMENOrdering Facility: [facility] Address: [address] [place] [address] Result Comment: Carb oxyhemoglobin Reference Range for Smokers: 2.0-8.0% Performed By: #### A LLBG ####[facility]ORATORYCLIA [id number] [place] [address] [place] Chloride [Moles/Vol] 109 mmol/L Normal 102-109 [facility] Comment on above: Order Comment: Speci men Type: ARTERIAL BLOOD SPECIMENOrdering Facility: [facility] Address: [address] [place] [address] Performed By: #### A LLBG ####[facility]ORATORYCLIA [id number] [address] [place] CO2 (Bld) [Partial pressure] 43 mm Hg Normal 36-46 [facility] Comment on above: Order Comment: Speci men Type: ARTERIAL BLOOD SPECIMENOrdering Facility: [facility] Address: [address] [place] [address] Performed By: #### A LLBG ####[facility]ORATORYCLIA [id number] [address] CO2 adjusted to patient's actual temperature (Bld) [Partial pressure] 42 mmHg Normal 36-46 [facility] Comment on above: Order Comment: Speci men Type: ARTERIAL BLOOD SPECIMENOrdering Facility: [facility] Address: [address] [place] [address] Performed By: #### A LLBG ####[facility]ORATORYCLIA [id number] [address] [place] Glucose [Mass/Vol] 177 mg/dL High 60-105 [facility] Comment on above: Order Comment: Speci men Type: ARTERIAL BLOOD SPECIMENOrdering Facility: [facility] Address: [address] [place] [address] Performed By: #### A LLBG ####[facility]ORATORYCLIA [id number] [address] [place] HCO3 (Bld) [Moles/Vol] 23 mmol/L Normal 22-26 [facility] Comment on above: Order Comment: Speci men Type: ARTERIAL BLOOD SPECIMENOrdering Facility: [facility] Address: [address] [place] [address] Performed By: #### A LLBG ####[facility] LABORATORYCLIA [id number] [address] OF [facility] Hematocrit (Bld) [Volume fraction] 43.0 % Normal 36.0-46.0 [facility] Comment on above: Order Comment: Speci men Type: ARTERIAL BLOOD SPECIMENOrdering Facility: [facility] Address: [address] [place] [address] Performed By: #### A LLBG ####[facility]ORATORYCLIA [id number] [address] [place] Hemoglobin (Bld) [Mass/Vol] 14.0 g/dL Normal 11.5-15.5 [facility] Comment on above: Order Comment: Speci men Type: ARTERIAL BLOOD SPECIMENOrdering Facility: [facility] Address: [address] [place] [address] Performed By: #### A LLBG ####[facility]ORATORYCLIA [id number] [address] Lactate [Moles/Vol] 2.1 mmol/L Normal 0.5-2.2 [facility] Comment on above: Order Comment: Speci men Type: ARTERIAL BLOOD SPECIMENOrdering Facility: [facility] Address: [address] [place] [address] Performed By: #### A LLBG ####[facility]ORATORYCLIA [id number] [address] [place] LITERS 10 Liters/min Normal [facility] Comment on above: Order Comment: Speci men Type: ARTERIAL BLOOD SPECIMENOrdering Facility: [facility] Address: [address] [place] [address] Performed By: #### A LLBG ####[facility]ORATORYCLIA [id number] [address] [place] Methemoglobin (Bld) [Mass fraction] 0.3 % Normal 0.0-1.5 [facility] Comment on above: Order Comment: Speci men Type: ARTERIAL BLOOD SPECIMENOrdering Facility: [facility] Address: [address] [place] [address] Performed By: #### A LLBG ####[facility]ORATORYCLIA [id number] [address] O2 THERAPY Simple Face Mask Normal [facility] Comment on above: Order Comment: Speci men Type: ARTERIAL BLOOD SPECIMENOrdering Facility: [facility] Address: [address] [place] [address] Performed By: #### A LLBG ####[facility]ORATORYCLIA [id number] [address] Oxygen (Bld) [Partial pressure] 55 mm Hg Low 85-95 [facility] Comment on above: Order Comment: Speci men Type: ARTERIAL BLOOD SPECIMENOrdering Facility: [facility] Address: [address] [place] [address] Performed By: #### A LLBG ####[facility]ORATORYCLIA [id number] [address] Oxygen adjusted to patient's actual temperature (Bld) [Partial pressure] 53 mmHg Low 85-95 [facility] Comment on above: Order Comment: Speci men Type: ARTERIAL BLOOD SPECIMENOrdering Facility: [facility] Address: [address] [place] [address] Performed By: #### A LLBG ####[facility]ORATORYCLIA [id number] [address] Oxyhemoglobin (BldA) [Mass fraction] 85 % Low 95-98 [facility] Comment on above: Order Comment: Speci men Type: ARTERIAL BLOOD SPECIMENOrdering Facility: [facility] Address: [address] [place] [address] Performed By: #### A LLBG ####[facility]ORATORYCLIA [id number] [address] [place] pH (Bld) 7.35 [pH] Normal 7.35-7.45 [facility] Comment on above: Order Comment: Speci men Type: ARTERIAL BLOOD SPECIMENOrdering Facility: [facility] Address: [address] [place] [address] Performed By: #### A LLBG ####[facility]ORATORYCLIA [id number] [address] pH adjusted to patient's actual temperature (Bld) 7.35 Normal 7.35-7.45 [facility] Comment on above: Order Comment: Speci men Type: ARTERIAL BLOOD SPECIMENOrdering Facility: [facility] Address: [address] [place] [address] Performed By: #### A LLBG ####[facility]ORATORYCLIA [id number] [address] [place] Potassium [Moles/Vol] 3.7 mmol/L Normal 3.5-5.0 [facility] Comment on above: Order Comment: Speci men Type: ARTERIAL BLOOD SPECIMENOrdering Facility: [facility] Address: [address] [place] [address] Performed By: #### A LLBG ####[facility]ORATORYCLIA [id number] [address] [place] Sodium [Moles/Vol] 137 mmol/L Normal 136-144 [facility] Comment on above: Order Comment: Speci men Type: ARTERIAL BLOOD SPECIMENOrdering Facility: [facility] Address: [address] [place] [address] Performed By: #### A LLBG ####[facility]ORATORYCLIA [id number] [address] [place] BRIEF OP NOTon 02-04-2024 BRIEF OP NOT Normal [facility] Basic metabolic 2000 panelon 02-04-2024 Anion gap [Moles/Vol] 13 mmol/L Normal 9-18 [facility] Comment on above: Order Comment: Speci men Type: BLOOD SPECIMENOrdering Facility: [facility] Address: [address] [place] [address] Performed By: #### 2 4321-2, 27886-9, 2777-1 ####[facility]ORATORYCLIA [id number] [place] [address] [place] Calcium [Mass/Vol] 8.7 mg/dL Normal 8.5-10.2 [facility] Comment on above: Order Comment: Speci men Type: BLOOD SPECIMENOrdering Facility: [facility] Address: [address] [place] [address] Performed By: #### 2 4321-2, , 2776-10 ####[facility] LABORATORYCLIA [id number] [place] [address] [place] Chloride [Moles/Vol] 103 mmol/L Normal 97-105 [facility] Comment on above: Order Comment: Speci men Type: BLOOD SPECIMENOrdering Facility: [facility] Address: [address] [place] [address] Performed By: #### 2 4321-2, , 2776-10 ####[facility] LABORATORYCLIA [id number] [place] [address] [place] CO2 [Moles/Vol] 21 mmol/L Low 22-30 [facility] Comment on above: Order Comment: Speci men Type: BLOOD SPECIMENOrdering Facility: [facility] Address: [address] [place] [address] Performed By: #### 2 4321-2, , 2776-10 ####[facility]ORATORYCLIA [id number] [place] [address] [place] Creatinine [Mass/Vol] 0.69 mg/dL Normal 0.58-0.96 [facility] Comment on above: Order Comment: Speci men Type: BLOOD SPECIMENOrdering Facility: [facility] Address: [address] [place] [address] Performed By: #### 2 4321-2, , 2776-10 ####[facility]ORATORYCLIA [id number] [address] [place] Creatinine and Glomerular filtration rate.predicted panel (S/P/Bld) 87 mL/min/1.73m??? Normal >=60 [facility] Comment on above: Order Comment: Kristin paige Type: BLOOD SPECIMENOrdering Facility: [facility] Address: [address] [place] [address] Result Comment: Felicia mated Glomerular Filtration Rate (eGFR) is calculated using the 2020 CKD-EPI creatinine equation. This equation utilizes serum creatinine, sex, and age as parameters. The creatinine assay has traceable calibration to isotope dilution-mass spectrometry. Refer to KDIGO guidelines for clinical interpretation. In patients with unstable renal function, e.g. those with acute kidney injury, the eGFR may not accurately reflect actual GFR. Performed By: #### 2 4321-2, 56717-2, 2776-10 ####[facility]ORATORYCLIA [id number] [place] [address] [place] Glucose [Mass/Vol] 166 mg/dL High 74-99 [facility] Comment on above: Order Comment: Kristin paige Type: BLOOD SPECIMENOrdering Facility: [facility] Address: [address] [place] [address] Result Comment: The [place] Diabetes [employer] (ADA) provides guidance for cutoff values for fasting glucose and random glucose. The ADA defines fasting as no caloric intake for at least 8 hours. Fasting plasma glucose results between 100 to 125 mg/dL indicate increased risk for diabetes (prediabetes).Fasting plasma glucose results greater than or equal to 126 mg/dL meet the criteria for diagnosis of diabetes. In the absence of unequivocal hyperglycemia, results should be confirmed by repeat testing. In a patient with classic symptoms of hyperglycemia or hyperglycemic crisis, random plasma glucose results greater than or equal to 200 mg/dL meet the criteria for diagnosis of diabetes.Reference: Standards of Medical Care in Diabetes 2016, [place] [employer]. Diabetes Care. 2016.39(Suppl 1). Performed By: #### 2 4321-2, 96895-3, 2776-10 ####[facility]ORATORYCLIA [id number] [place] [id number] [place] Potassium [Moles/Vol] 3.8 mmol/L Normal 3.7-5.1 [facility] Comment on above: Order Comment: Kristin paige Type: BLOOD SPECIMENOrdering Facility: [facility] Address: [address] [place] [address] Performed By: #### 2 4321-2, , 2776-10 ####[facility]ORATORYCLIA [id number] [place] [address] [place] Sodium [Moles/Vol] 137 mmol/L Normal 136-144 [facility] Comment on above: Order Comment: Speci men Type: BLOOD SPECIMENOrdering Facility: [facility] Address: [address] [place] [address] Performed By: #### 2 4321-2, , 2776-10 ####[facility]ORATORYCLIA [id number] [place] [address] [place] Urea nitrogen [Mass/Vol] 15 mg/dL Normal 7-21 [facility] Comment on above: Order Comment: Speci men Type: BLOOD SPECIMENOrdering Facility: [facility] Address: [address] [place] [address] Performed By: #### 2 4321-2, , 2776-10 ####[facility]ORATORYCLIA [id number] [place] [address] [place] Anion gap [Moles/Vol] 10 mmol/L Normal 9-18 [facility] Comment on above: Order Comment: Speci men Type: BLOOD SPECIMENOrdering Facility: [facility] Address: [address] [place] [address] Performed By: #### 2 4320-2 ####[facility]ORATORYCLIA [id number] [place] [address] [place] Calcium [Mass/Vol] 9.4 mg/dL Normal 8.5-10.2 [facility] Comment on above: Order Comment: Speci men Type: BLOOD SPECIMENOrdering Facility: [facility] Address: [address] [place] [address] Performed By: #### 2 4321-2 ####[facility]ORATORYCLIA [id number] [place] [address] [place] Chloride [Moles/Vol] 100 mmol/L Normal 97-105 [facility] Comment on above: Order Comment: Speci men Type: BLOOD SPECIMENOrdering Facility: [facility] Address: [address] [place] [address] Performed By: #### 2 4321-2 ####[facility]ORATORYCLIA [id number] [place] [id number] [place] CO2 [Moles/Vol] 25 mmol/L Normal 22-30 [facility] Comment on above: Order Comment: Speci men Type: BLOOD SPECIMENOrdering Facility: [facility] Address: [address] [place] [address] Performed By: #### 2 4321-2 ####[facility] CENTERCLIA [id number] [address] [place] Creatinine [Mass/Vol] 0.74 mg/dL Normal 0.58-0.96 [facility] Comment on above: Order Comment: Speci men Type: BLOOD SPECIMENOrdering Facility: [facility] Address: [address] [place] [address] Performed By: #### 2 4321-2 ####[facility] CENTERCLIA [id number] [address] Creatinine and Glomerular filtration rate.predicted panel (S/P/Bld) 81 mL/min/1.73m??? Normal >=60 [facility] Comment on above: Order Comment: Speci men Type: BLOOD SPECIMENOrdering Facility: [facility] Address: [address] [place] [address] Result Comment: Felicia mated Glomerular Filtration Rate (eGFR) is calculated using the 2020 CKD-EPI creatinine equation. This equation utilizes serum creatinine, sex, and age as parameters. The creatinine assay has traceable calibration to isotope dilution-mass spectrometry. Refer to KDIGO guidelines for clinical interpretation. In patients with unstable renal function, e.g. those with acute kidney injury, the eGFR may not accurately reflect actual GFR. Performed By: #### 2 4321-2 ####[facility]ORATORYCLIA [id number] [address] [place] Glucose [Mass/Vol] 148 mg/dL High 74-99 [facility] Comment on above: Order Comment: Kristin royal Type: BLOOD SPECIMENOrdering Facility: [facility] Address: [address] [place] [address] Result Comment: The [place] Diabetes [employer] (ADA) provides guidance for cutoff values for fasting glucose and random glucose. The ADA defines fasting as no caloric intake for at least 8 hours. Fasting plasma glucose results between 100 to 125 mg/dL indicate increased risk for diabetes (prediabetes).Fasting plasma glucose results greater than or equal to 126 mg/dL meet the criteria for diagnosis of diabetes. In the absence of unequivocal hyperglycemia, results should be confirmed by repeat testing. In a patient with classic symptoms of hyperglycemia or hyperglycemic crisis, random plasma glucose results greater than or equal to 200 mg/dL meet the criteria for diagnosis of diabetes.Reference: Standards of Medical Care in Diabetes 2016, [place] [employer]. Diabetes Care. 2016.39(Suppl 1). Performed By: #### 2 4321-2 ####[facility]ORATORYCLIA [id number] [place] [address] [place] Potassium [Moles/Vol] 3.9 mmol/L Normal 3.7-5.1 [facility] Comment on above: Order Comment: Kristin royal Type: BLOOD SPECIMENOrdering Facility: [facility] Address: [address] [place] [address] Performed By: #### 2 4321-2 ####[facility]ORATORYCLIA [id number] [place] [address] [place] Sodium [Moles/Vol] 135 mmol/L Low 136-144 [facility] Comment on above: Order Comment: L[place] men Type: BLOOD SPECIMENOrdering Facility: [facility] Address: [address] [place] [address] Performed By: #### 2 4321-2 ####[facility]ORATORYCLIA [id number] [place] [address] [place] Urea nitrogen [Mass/Vol] 16 mg/dL Normal 7-21 [facility] Comment on above: Order Comment: [place] men Type: BLOOD SPECIMENOrdering Facility: [facility] Address: [address] [place] [address] Performed By: #### 2 4321-2 ####[facility]ORATORYCLIA [id number] [address] CBC Pnl Bld Autoon Hemoglobin (Bld) [Mass/Vol] 11.0 g/dL Low 11.5-15.5 [facility] Comment on above: Order Comment: Speci men Type: BLOOD SPECIMENOrdering Facility: [facility] Address: [address] [place] [address] Performed By: #### 5 8410-2 ####[facility]ORATORYCLIA [id number] [address] Order Comment: Speci men Type: ARTERIAL BLOOD SPECIMENOrdering Facility: [facility] Address: [address] [place] [address] Performed By: #### A LLBG ####[facility]ORATORYCLIA [id number] [address] CBC W Auto Differential pane l (Bld)on 02-04-2024 Basophils (Bld) [#/Vol] 0.04 10*3/uL Normal <0.11 [facility] Comment on above: Order Comment: Speci men Type: BLOOD SPECIMENOrdering Facility: [facility] Address: [address] [place] [address] Performed By: #### 5 7021-8 ####[facility]ORATORYCLIA [id number] [address] Basophils/100 WBC (Bld) 0.3 % Normal [facility] Comment on above: Order Comment: Speci men Type: BLOOD SPECIMENOrdering Facility: [facility] Address: [address] [place] [address] Performed By: #### 5 7021-8 ####[facility]ORATORYCLIA [id number] [address] Differential cell count method Nom (Bld) Auto Normal [facility] Comment on above: Order Comment: Speci men Type: BLOOD SPECIMENOrdering Facility: [facility] Address: [address] [place] [address] Performed By: #### 5 7021-8 ####[facility] LABORATORYCLIA [id number] [address] [place] Eosinophils (Bld) [#/Vol] 0.25 10*3/uL Normal <0.46 [facility] Comment on above: Order Comment: Speci men Type: BLOOD SPECIMENOrdering Facility: [facility] Address: [address] [place] [address] Performed By: #### 5 7021-8 ####[facility]ORATORYCLIA [id number] [address] Eosinophils/100 WBC (Bld) 1.9 % Normal [facility] Comment on above: Order Comment: Speci men Type: BLOOD SPECIMENOrdering Facility: [facility] Address: [address] [place] [address] Performed By: #### 5 7021-8 ####[facility] LABORATORYCLIA [id number] [address] [place] Erythrocyte distribution width (RBC) [Ratio] 13.6 % Normal 11.5-15.0 [facility] Comment on above: Order Comment: Speci men Type: BLOOD SPECIMENOrdering Facility: [facility] Address: [address] [place] [address] Performed By: #### 5 7021-8 ####[facility]ORATORYCLIA [id number] [address] [place] Hematocrit (Bld) [Volume fraction] 40.0 % Normal 36.0-46.0 [facility] Comment on above: Order Comment: Speci men Type: BLOOD SPECIMENOrdering Facility: [facility] Address: [facility] [place] [address] Performed By: #### 5 7021-8 ####[facility]ORATORYCLIA [id number] [address] [place] Hemoglobin (Bld) [Mass/Vol] 13.3 g/dL Normal 11.5-15.5 [facility] Comment on above: Order Comment: Speci men Type: BLOOD SPECIMENOrdering Facility: [facility] Address: [address] [place] [address] Performed By: #### 5 7021-8 ####[facility]ORATORYCLIA [id number] [place] [address] [place] Immature granulocytes (Bld) [#/Vol] 0.05 10*3/uL Normal <0.10 [facility] Comment on above: Order Comment: Speci men Type: BLOOD SPECIMENOrdering Facility: [facility] Address: [address] [place] [address] Performed By: #### 5 7021-8 ####[facility]ORATORYCLIA [id number] [address] [place] Immature granulocytes/100 WBC (Bld) 0.4 % Normal [facility] Comment on above: Order Comment: Speci men Type: BLOOD SPECIMENOrdering Facility: [facility] Address: [address] [place] [address] Performed By: #### 5 7021-8 ####[facility]ORATORYCLIA [id number] [place] [address] [place] Lymphocytes (Bld) [#/Vol] 1.57 10*3/uL Normal 1.00-4.00 [facility] Comment on above: Order Comment: Speci men Type: BLOOD SPECIMENOrdering Facility: [facility] Address: [address] [place] [address] Performed By: #### 5 7021-8 ####[facility]ORATORYCLIA [id number] [address] [place] Lymphocytes/100 WBC (Bld) 11.7 % Normal [facility] Comment on above: Order Comment: Speci men Type: BLOOD SPECIMENOrdering Facility: [facility] Address: [address] [place] [address] Performed By: #### 5 7021-8 ####[facility]ORATORYCLIA [id number] [address] MCH (RBC) [Entitic mass] 32.0 pg Normal 26.0-34.0 [facility] Comment on above: Order Comment: Speci men Type: BLOOD SPECIMENOrdering Facility: [facility] Address: [address] [place] [address] Performed By: #### 5 7021-8 ####[facility] LABORATORYCLIA [id number] [address] STATES OF [facility] MCHC (RBC) [Mass/Vol] 33.3 g/dL Normal 30.5-36.0 [facility] Comment on above: Order Comment: Speci men Type: BLOOD SPECIMENOrdering Facility: [facility] Address: [address] [place] [address] Performed By: #### 5 7021-8 ####[facility]ORATORYCLIA [id number] [address] MCV (RBC) [Entitic vol] 96.4 fL Normal 80.0-100.0 [facility] Comment on above: Order Comment: Speci men Type: BLOOD SPECIMENOrdering Facility: [facility] Address: [address] [place] [address] Performed By: #### 5 7021-8 ####[facility] LABORATORYCLIA [id number] [address] OF [facility] Monocytes (Bld) [#/Vol] 0.84 10*3/uL Normal <0.87 [facility] Comment on above: Order Comment: Speci men Type: BLOOD SPECIMENOrdering Facility: [facility] Address: [address] [place] [address] Performed By: #### 5 7021-8 ####[facility]ORATORYCLIA [id number] [address] Monocytes/100 WBC (Bld) 6.3 % Normal [facility] Comment on above: Order Comment: Speci men Type: BLOOD SPECIMENOrdering Facility: [facility] Address: [address] [place], [place] [address] Performed By: #### 5 7021-8 ####[facility]ORATORYCLIA [id number] [place] [address] [place] Neutrophils (Bld) [#/Vol] 10.64 10*3/uL High 1.45-7.50 [facility] Comment on above: Order Comment: Speci men Type: BLOOD SPECIMENOrdering Facility: [facility] Address: [address] [place] [address] Performed By: #### 5 7021-8 ####[facility]ORATORYCLIA [id number] [address] [place] Neutrophils/100 WBC (Bld) 79.4 % Normal [facility] Comment on above: Order Comment: Speci men Type: BLOOD SPECIMENOrdering Facility: [facility] Address: [address] [place] [address] Performed By: #### 5 7021-8 ####[facility]ORATORYCLIA [id number] [address] [place] Nucleated RBC (Bld) [#/Vol] 10*3/uL Normal <0.01 [facility] Comment on above: Order Comment: Speci men Type: BLOOD SPECIMENOrdering Facility: [facility] Address: [address] [place] [address] Performed By: #### 5 7021-8 ####[facility]ATORYCLIA [id number] [address] [place] Nucleated RBC/100 WBC (Bld) [Ratio] 0.0 /100 WBC Normal [facility] Comment on above: Order Comment: Speci men Type: BLOOD SPECIMENOrdering Facility: [facility] Address: [address] [place] [address] Performed By: #### 5 7021-8 ####[facility]ATORYCLIA [id number] [address] [place] Platelet mean volume (Bld) [Entitic vol] 8.8 fL Low 9.0-12.7 [facility] Comment on above: Order Comment: Speci men Type: BLOOD SPECIMENOrdering Facility: [facility] Address: [address] [place] [address] Performed By: #### 5 7021-8 ####[facility]ORATORYCLIA [id number] [address] OF [facility] Platelets (Bld) [#/Vol] 317 10*3/uL Normal 150-400 [facility] Comment on above: Order Comment: Speci men Type: BLOOD SPECIMENOrdering Facility: [facility] Address: [address] [place] [address] Performed By: #### 5 7021-8 ####[facility]ORATORYCLIA [id number] [address] OF [facility] RBC (Bld) [#/Vol] 4.15 10*6/uL Normal 3.90-5.20 [facility] Comment on above: Order Comment: Speci men Type: BLOOD SPECIMENOrdering Facility: [facility] Address: [address] [place] [address] Performed By: #### 5 7021-8 ####[facility]ORATORYCLIA [id number] [address] WBC (Bld) [#/Vol] 13.39 10*3/uL High 3.70-11.00 [facility] Comment on above: Order Comment: Speci men Type: BLOOD SPECIMENOrdering Facility: [facility] Address: [address] [place] [address] Performed By: #### 5 7021-8 ####[facility]ORATORYCLIA [id number] [address] CBC panel Auto (Bld)on 02-03 Erythrocyte distribution width (RBC) [Ratio] 13.7 % Normal 11.5-15.0 [facility] Comment on above: Order Comment: Speci men Type: BLOOD SPECIMENOrdering Facility: [facility] Address: [address] [place] [address] Performed By: #### 5 8410-2 ####[facility]ORATORYCLIA [id number] [address] Hematocrit (Bld) [Volume fraction] 33.5 % Low 36.0-46.0 [facility] Comment on above: Order Comment: Speci men Type: BLOOD SPECIMENOrdering Facility: [facility] Address: [address] [place] [address] Performed By: #### 5 8410-2 ####[facility]ORATORYCLIA [id number] [address] MCH (RBC) [Entitic mass] 31.8 pg Normal 26.0-34.0 [facility] Comment on above: Order Comment: Speci men Type: BLOOD SPECIMENOrdering Facility: [facility] Address: [address] [place] [address] Performed By: #### 5 8410-2 ####[facility]ORATORYCLIA [id number] [address] MCHC (RBC) [Mass/Vol] 32.8 g/dL Normal 30.5-36.0 [facility] Comment on above: Order Comment: Speci men Type: BLOOD SPECIMENOrdering Facility: [facility] Address: [address] [place] [address] Performed By: #### 5 8410-2 ####[facility]ORATORYCLIA [id number] [address] MCV (RBC) [Entitic vol] 96.8 fL Normal 80.0-100.0 [facility] Comment on above: Order Comment: Speci men Type: BLOOD SPECIMENOrdering Facility: [facility] Address: [address] [place] [address] Performed By: #### 5 8410-2 ####[facility]ORATORYCLIA [id number] [address] Nucleated RBC (Bld) [#/Vol] 10*3/uL Normal <0.01 [facility] Comment on above: Order Comment: Speci men Type: BLOOD SPECIMENOrdering Facility: [facility] Address: [address] [place] [address] Performed By: #### 5 8410-2 ####[facility]ORATORYCLIA [id number] [address] [place] Platelet mean volume (Bld) [Entitic vol] 8.6 fL Low 9.0-12.7 [facility] Comment on above: Order Comment: Speci men Type: BLOOD SPECIMENOrdering Facility: [facility] Address: [address] [place] [address] Performed By: #### 5 8410-2 ####[facility]ORATORYCLIA [id number] [address] OF [facility] Platelets (Bld) [#/Vol] 243 10*3/uL Normal 150-400 [facility] Comment on above: Order Comment: Speci men Type: BLOOD SPECIMENOrdering Facility: [facility] Address: [address] [place] [address] Performed By: #### 5 8410-2 ####[facility]ORATORYCLIA [id number] [address] RBC (Bld) [#/Vol] 3.46 10*6/uL Low 3.90-5.20 [facility] Comment on above: Order Comment: Speci men Type: BLOOD SPECIMENOrdering Facility: [facility] Address: [address] [place] [address] Performed By: #### 5 8410-2 ####[facility]ORATORYCLIA [id number] [address] WBC (Bld) [#/Vol] 12.08 10*3/uL High 3.70-11.00 [facility] Comment on above: Order Comment: Speci men Type: BLOOD SPECIMENOrdering Facility: [facility] Address: [address] [place] [address] Performed By: #### 5 8410-2 ####[facility]ORATORYCLIA [id number] [place] [address] [place] Erythrocyte distribution width (RBC) [Ratio] 13.5 % Normal 11.5-15.0 [facility] Comment on above: Order Comment: Speci men Type: BLOOD SPECIMENOrdering Facility: [facility] Address: [address] [place] [address] Performed By: #### 5 8410-2 ####[facility]ORATORYCLIA [id number] [address] OF [facility] Hematocrit (Bld) [Volume fraction] 37.5 % Normal 36.0-46.0 [facility] Comment on above: Order Comment: Speci men Type: BLOOD SPECIMENOrdering Facility: [facility] Address: [address] [place] [address] Performed By: #### 5 8410-2 ####[facility]ORATORYCLIA [id number] [address] [place] Hemoglobin (Bld) [Mass/Vol] 12.4 g/dL Normal 11.5-15.5 [facility] Comment on above: Order Comment: Speci men Type: BLOOD SPECIMENOrdering Facility: [facility] Address: [address] [place] [address] Performed By: #### 5 8410-2 ####[facility]ORATORYCLIA [id number] [address] [place] MCH (RBC) [Entitic mass] 31.9 pg Normal 26.0-34.0 [facility] Comment on above: Order Comment: Speci men Type: BLOOD SPECIMENOrdering Facility: [facility] Address: [address] [place] [address] Performed By: #### 5 8410-2 ####[facility]ORATORYCLIA [id number] [address] [place] MCHC (RBC) [Mass/Vol] 33.1 g/dL Normal 30.5-36.0 [facility] Comment on above: Order Comment: Speci men Type: BLOOD SPECIMENOrdering Facility: [facility] Address: [address] [place] [address] Performed By: #### 5 8410-2 ####[facility]ORATORYCLIA [id number] [address] [place] MCV (RBC) [Entitic vol] 96.4 fL Normal 80.0-100.0 [facility] Comment on above: Order Comment: Speci men Type: BLOOD SPECIMENOrdering Facility: [facility] Address: [address] [place] [address] Performed By: #### 5 8410-2 ####[facility]ORATORYCLIA [id number] [address] [place] Nucleated RBC (Bld) [#/Vol] 10*3/uL Normal <0.01 [facility] Comment on above: Order Comment: Speci men Type: BLOOD SPECIMENOrdering Facility: [facility] Address: [address] [place] [address] Performed By: #### 5 8410-2 ####[facility]ORATORYCLIA [id number] [address] OF [facility] Platelet mean volume (Bld) [Entitic vol] 8.7 fL Low 9.0-12.7 [facility] Comment on above: Order Comment: Speci men Type: BLOOD SPECIMENOrdering Facility: [facility] Address: [address] [place] [address] Performed By: #### 5 8410-2 ####[facility]ORATORYCLIA [id number] [address] Platelets (Bld) [#/Vol] 279 10*3/uL Normal 150-400 [facility] Comment on above: Order Comment: Speci men Type: BLOOD SPECIMENOrdering Facility: [facility] Address: [address] [place] [address] Performed By: #### 5 8410-2 ####[facility]ORATORYCLIA [id number] [address] [place] RBC (Bld) [#/Vol] 3.89 10*6/uL Low 3.90-5.20 [facility] Comment on above: Order Comment: Speci men Type: BLOOD SPECIMENOrdering Facility: [facility] Address: [address] [place] [address] Performed By: #### 5 8410-2 ####[facility]ORATORYCLIA [id number] [address] [place] WBC (Bld) [#/Vol] 15.65 10*3/uL High 3.70-11.00 [facility] Comment on above: Order Comment: Speci men Type: BLOOD SPECIMENOrdering Facility: [facility] Address: [address] [place] [address] Performed By: #### 5 8410-2 ####[facility]ORATORYCLIA [id number] [place] [id number] [place] CONSULTon 02-04-2024 CONSULT Normal [facility] ECG COMPLETEon 02-04-2024 ECG COMPLETE Normal [facility] Magnesium SerPl-mCncon 02-03 Magnesium [Mass/Vol] 1.9 mg/dL Normal 1.7-2.3 [facility] Comment on above: Order Comment: Speci men Type: BLOOD SPECIMENOrdering Facility: [facility] Address: [address] [place] [address] Performed By: #### 2 4321-2, , 2776-10 ####[facility]ORATORYCLIA [id number] [address] [place] NURSING PROGon 02-04-2024 NURSING PROG Normal [facility] NURSING PROG Normal [facility] OPERATIVE NOon 02-04-2024 OPERATIVE NO Normal [facility] Phosphate SerPl-mCncon 02-03 Phosphate [Mass/Vol] 3.5 mg/dL Normal 2.7-4.8 [facility] Comment on above: Order Comment: Speci men Type: BLOOD SPECIMENOrdering Facility: [facility] Address: [address] [place] [address] Performed By: #### 2 4321-2, , 2776-10 ####[facility]ORATORYCLIA [id number] [address] STAPHYLOCOCCUS AUREUS AND MR SA SCREEN, PCR, NASALon 02-04-2024 S. aureus and MRSA panel HAYDEN+probe (Nose) Normal Negative [facility] Comment on above: Order Comment: Speci men Type: SWABOrdering Facility: [facility] Address: [address] [place] [address] Result Comment: Nega tive for Staphylococcus aureus by PCR.Negative for MRSA by PCR Performed By: #### S APCR ####[facility]ORATORYCLIA [id number] [address] SURGICAL PATHOLOGYon 024 CASE REPORT Normal [facility] Comment on above: Order Comment: Speci men Type: TISSUE SPECIMENOrdering Facility: [facility] Address: [address] [place] [address] Result Comment: Surg ica Pathology Report Case: [id number] Provider: Mayank Hanson, Collected: 02/04/2024 09:04 AM MDOrdering Location: [facility] Received: 02/05/2024 08:17 AMPathologist: Acacia Avery MDSpecimen: Femoral Head, Left Performed By: #### S ####[facility] CENTERCLIA [id number] [address] CLINICAL HISTORY Normal [facility] Comment on above: Order Comment: Speci men Type: TISSUE SPECIMENOrdering Facility: [facility] Address: [address] [place] [address] Result Comment: Pre- op diagnosis:Closed displaced fracture of left femoral neck (HCC) [S72.002A] Performed By: #### S ####[facility]ORATORYCLIA [id number] [address] FINAL DIAGNOSIS Normal [facility] Comment on above: Order Comment: Speci men Type: TISSUE SPECIMENOrdering Facility: [facility] Address: [address] [place] [address] Result Comment: Femo ral head, left, left internal fixation/prosthetic replacement:- Fragmentation of the bony trabeculae with hemorrhage into the medullary cavity, consistent with recent fracture.- No malignancy is seen.- Degenerative changes of the articular cartilage. Performed By: #### S ####[facility]ORATORYCLIA [id number] [address] OF [facility] FINAL PERFORMING LAB Normal [facility] Comment on above: Order Comment: Speci men Type: TISSUE SPECIMENOrdering Facility: [facility] Address: [address] [place] [address] Result Comment: Diag nostic interpretation performed at [facility], [address] [place] [address] CLIA# [id number] Director: Kade Duron M.D. Performed By: #### S ####[facility]ORATORYCLIA [id number] [address] GROSS DESCRIPTION Normal [facility] Comment on above: Order Comment: Speci men Type: TISSUE SPECIMENOrdering Facility: [facility] Address: [address] [place] [address] Result Comment: A. F emoral Head, LeftReceived in formalin labeled femoral head left is a specimen consisting of a femoral head measuring 4.9 x 4.8 x 4.6 cm. The articulating surface is slightly roughened. Areas of eburnation and osteophyte formation are not present. The line of resection is jagged and hemorrhagic. Upon sectioning subchondral cysts and necrosis are not present. Soft tissue is not received with the specimen. Grinder Set Up 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 sections are submitted in formalin in 2 cassettes following a period of decalcification. Gross examination performed at [facility], [address] [place], [place] [address]KVB February 05, 2024 10:24 AM Performed By: #### S ####[facility]ORATORYCLIA [id number] [address] [place] XR PELVIS 1V APon 02-04-2024 XR PELVIS 1V AP Normal [facility] CASE MGT INIT ASSESon 2023 CASE MGT INIT ASSES Normal [facility] CBC panel Auto (Bld)on 02-02 Erythrocyte distribution width (RBC) [Ratio] 13.5 % Normal 11.5-15.0 [facility] Comment on above: Order Comment: Speci men Type: BLOOD SPECIMENOrdering Facility: [facility] Address: [address] [place] [address] Performed By: #### 5 8410-2 ####[facility]ORATORYCLIA [id number] [address] OF [facility] Hematocrit (Bld) [Volume fraction] 38.4 % Normal 36.0-46.0 [facility] Comment on above: Order Comment: Speci men Type: BLOOD SPECIMENOrdering Facility: [facility] Address: [address] [place] [address] Performed By: #### 5 8410-2 ####[facility]ORATORYCLIA [id number] [address] OF [facility] Hemoglobin (Bld) [Mass/Vol] 12.9 g/dL Normal 11.5-15.5 [facility] Comment on above: Order Comment: Speci men Type: BLOOD SPECIMENOrdering Facility: [facility] Address: [address] [place] [address] Performed By: #### 5 8410-2 ####[facility]ORATORYCLIA [id number] [address] [place] MCH (RBC) [Entitic mass] 32.1 pg Normal 26.0-34.0 [facility] Comment on above: Order Comment: Speci men Type: BLOOD SPECIMENOrdering Facility: [facility] Address: [address] [place] [address] Performed By: #### 5 8410-2 ####[facility]ORATORYCLIA [id number] [address] [place] MCHC (RBC) [Mass/Vol] 33.6 g/dL Normal 30.5-36.0 [facility] Comment on above: Order Comment: Speci men Type: BLOOD SPECIMENOrdering Facility: [facility] Address: [address] [place] [address] Performed By: #### 5 8410-2 ####[facility]ORATORYCLIA [id number] [address] MCV (RBC) [Entitic vol] 95.5 fL Normal 80.0-100.0 [facility] Comment on above: Order Comment: Speci men Type: BLOOD SPECIMENOrdering Facility: [facility] Address: [address] [place] [address] Performed By: #### 5 8410-2 ####[facility]ORATORYCLIA [id number] [address] Nucleated RBC (Bld) [#/Vol] 10*3/uL Normal <0.01 [facility] Comment on above: Order Comment: Speci men Type: BLOOD SPECIMENOrdering Facility: [facility] Address: [address] [place] [address] Performed By: #### 5 8410-2 ####[facility] LABORATORYCLIA [id number] [address] Platelet mean volume (Bld) [Entitic vol] 8.6 fL Low 9.0-12.7 [facility] Comment on above: Order Comment: Speci men Type: BLOOD SPECIMENOrdering Facility: [facility] Address: [address] [place] [address] Performed By: #### 5 8410-2 ####[facility]ORATORYCLIA [id number] [address] Platelets (Bld) [#/Vol] 336 10*3/uL Normal 150-400 [facility] Comment on above: Order Comment: Speci men Type: BLOOD SPECIMENOrdering Facility: [facility] Address: [address] [place] [address] Performed By: #### 5 8410-2 ####[facility]ORATORYCLIA [id number] [address] RBC (Bld) [#/Vol] 4.02 10*6/uL Normal 3.90-5.20 [facility] Comment on above: Order Comment: Speci men Type: BLOOD SPECIMENOrdering Facility: [facility] Address: [address] [place] [address] Performed By: #### 5 8410-2 ####[facility]ORATORYCLIA [id number] [place] [address] [place] WBC (Bld) [#/Vol] 8.70 10*3/uL Normal 3.70-11.00 [facility] Comment on above: Order Comment: Speci men Type: BLOOD SPECIMENOrdering Facility: [facility] Address: [address] [place] [address] Performed By: #### 5 8410-2 ####[facility] LABORATORYCLIA [id number] [address] [place] BLOOD TYPEon 024 ABO O Normal [facility] Comment on above: Order Comment: Speci men Type: BLOOD SPECIMENOrdering Facility: [facility] Address: [address] [place] [address] Performed By: #### C ONABO ####[facility] BLOOD BANKCLIA [id number] [address] OF [facility] Rh Nom (Bld) Positive Normal [facility] Comment on above: Order Comment: Speci men Type: BLOOD SPECIMENOrdering Facility: [facility] Address: [address] [place] [address] Performed By: #### C ONABO ####[facility] BLOOD BANKCLIA [id number] [address] OF [place] CONSULTon 02-03-2024 CONSULT Normal [facility] CT BRAIN WO IVCONon 02-03-[address] BRAIN WO IVCON Normal [facility] CT CERVICAL SPINE WO IVCONon 02-03-2024 CT CERVICAL SPINE WO IVCON Normal [facility] Comprehensive metabolic 2000 panelon 02-03-2024 Albumin [Mass/Vol] 4.1 g/dL Normal 3.9-4.9 [facility] Comment on above: Order Comment: Speci men Type: BLOOD SPECIMENOrdering Facility: [facility] Address: [address] [place] [address] Performed By: #### 2 4323-8, 3040-3 ####[facility] LABORATORYCLIA [id number] [address] OF [facility] ALP [Catalytic activity/Vol] 107 U/L Normal 34-123 [facility] Comment on above: Order Comment: Speci men Type: BLOOD SPECIMENOrdering Facility: [facility] Address: [address] [place] [address] Performed By: #### 2 4323-8, 0-3 ####[facility] LABORATORYCLIA [id number] [address] [place] ALT With P-5'-P [Catalytic activity/Vol] 41 U/L High 7-38 [facility] Comment on above: Order Comment: Speci men Type: BLOOD SPECIMENOrdering Facility: [facility] Address: [address] [place] [address] Performed By: #### 2 4323-8, 0-3 ####[facility] LABORATORYCLIA [id number] [address] STATES OF [facility] Anion gap [Moles/Vol] 12 mmol/L Normal 9-18 [facility] Comment on above: Order Comment: Speci men Type: BLOOD SPECIMENOrdering Facility: [facility] Address: [address] [place] [address] Performed By: #### 2 4323-8, 3040-3 ####[facility] LABORATORYCLIA [id number] [address] [place] AST With P-5'-P [Catalytic activity/Vol] 38 U/L High 13-35 [facility] Comment on above: Order Comment: Speci men Type: BLOOD SPECIMENOrdering Facility: [facility] Address: [address] [place] [address] Performed By: #### 2 4323-8, 0-3 ####[facility] LABORATORYCLIA [id number] [place] [address] [place] Bilirubin [Mass/Vol] 0.3 mg/dL Normal 0.2-1.3 [facility] Comment on above: Order Comment: Speci men Type: BLOOD SPECIMENOrdering Facility: [facility] Address: [address] [place] [address] Performed By: #### 2 4323-8, 3039-3 ####[facility] LABORATORYCLIA [id number] [place] [address] [place] Calcium [Mass/Vol] 9.3 mg/dL Normal 8.5-10.2 [facility] Comment on above: Order Comment: Speci men Type: BLOOD SPECIMENOrdering Facility: [facility] Address: [address] [place] [address] Performed By: #### 2 4323-8, 3039-3 ####[facility] LABORATORYCLIA [id number] [place] [address] [place] Chloride [Moles/Vol] 104 mmol/L Normal 97-105 [facility] Comment on above: Order Comment: Speci men Type: BLOOD SPECIMENOrdering Facility: [facility] Address: [address] [place] [address] Performed By: #### 2 4323-8, 0-3 ####[facility] LABORATORYCLIA [id number] [place] [address] [place] CO2 [Moles/Vol] 23 mmol/L Normal 22-30 [facility] Comment on above: Order Comment: Speci men Type: BLOOD SPECIMENOrdering Facility: [facility] Address: [address] [place] [address] Performed By: #### 2 4323-8, 0-3 ####[facility] LABORATORYCLIA [id number] [place] [address] [place] Creatinine [Mass/Vol] 0.66 mg/dL Normal 0.58-0.96 [facility] Comment on above: Order Comment: Kristin paige Type: BLOOD SPECIMENOrdering Facility: [facility] Address: [address] [place] [address] Performed By: #### 2 4323-8, 3040-3 ####[facility] LABORATORYCLIA [id number] [place] [id number] [place] Creatinine and Glomerular filtration rate.predicted panel (S/P/Bld) 88 mL/min/1.73m??? Normal >=60 [facility] Comment on above: Order Comment: Kristin paige Type: BLOOD SPECIMENOrdering Facility: [facility] Address: [address] [place] [address] Result Comment: Felicia mated Glomerular Filtration Rate (eGFR) is calculated using the 2020 CKD-EPI creatinine equation. This equation utilizes serum creatinine, sex, and age as parameters. The creatinine assay has traceable calibration to isotope dilution-mass spectrometry. Refer to KDIGO guidelines for clinical interpretation. In patients with unstable renal function, e.g. those with acute kidney injury, the eGFR may not accurately reflect actual GFR. Performed By: #### 2 4323-8, 3040-3 ####[facility] LABORATORYCLIA [id number] [place] [id number] [place] Glucose [Mass/Vol] 122 mg/dL High 74-99 [facility] Comment on above: Order Comment: Kristin royal Type: BLOOD SPECIMENOrdering Facility: [facility] Address: [address] [place] [address] Result Comment: The [place] [employer] (ADA) provides guidance for cutoff values for fasting glucose and random glucose. The ADA defines fasting as no caloric intake for at least 8 hours. Fasting plasma glucose results between 100 to 125 mg/dL indicate increased risk for diabetes (prediabetes).Fasting plasma glucose results greater than or equal to 126 mg/dL meet the criteria for diagnosis of diabetes. In the absence of unequivocal hyperglycemia, results should be confirmed by repeat testing. In a patient with classic symptoms of hyperglycemia or hyperglycemic crisis, random plasma glucose results greater than or equal to 200 mg/dL meet the criteria for diagnosis of diabetes.Reference: Standards of Medical Care in Diabetes 2016, [place] [employer]. Diabetes Care. 2016.39(Suppl 1). Performed By: #### 2 4323-8, 0-3 ####[facility]ORATORYCLIA [id number] [place] [address] [place] Potassium [Moles/Vol] 3.9 mmol/L Normal 3.7-5.1 [facility] Comment on above: Order Comment: Speci men Type: BLOOD SPECIMENOrdering Facility: [facility] Address: [address] [place] [address] Performed By: #### 2 4323-8, 0-3 ####[facility] LABORATORYCLIA [id number] [place] [address] [place] Protein [Mass/Vol] 7.1 g/dL Normal 6.3-8.0 [facility] Comment on above: Order Comment: Speci men Type: BLOOD SPECIMENOrdering Facility: [facility] Address: [address] [place] [address] Performed By: #### 2 4323-8, 0-3 ####[facility] LABORATORYCLIA [id number] [place] [address] [place] Sodium [Moles/Vol] 139 mmol/L Normal 136-144 [facility] Comment on above: Order Comment: Speci men Type: BLOOD SPECIMENOrdering Facility: [facility] Address: [address] [place] [address] Performed By: #### 2 4323-8, 0-3 ####[facility] LABORATORYCLIA [id number] [address] [place] Urea nitrogen [Mass/Vol] 14 mg/dL Normal 7-21 [facility] Comment on above: Order Comment: Speci men Type: BLOOD SPECIMENOrdering Facility: [facility] Address: [address] [place] [address] Performed By: #### 2 4323-8, 0-3 ####[facility] LABORATORYCLIA [id number] [place] [address] [place] ED NOTEon 02-03-2024 ED NOTE HNO ID: [id number] Author: MARTA DICKENS, RN Service: Emergency Medicine Author Type: Registered Nurse Type: ED Notes Filed: 02/03/2024 13:34 Note Text: Lunch tray to pt Normal [facility] ED NOTE HNO ID: [id number] Author: MARTA DICKENS, RN Service: Emergency Medicine Author Type: Registered Nurse Type: ED Notes Filed: 02/03/2024 12:27 Note Text: [email or web address] [facility] ED NOTE HNO ID: [id number] Author: MARTA DICKENS, RN Service: Emergency Medicine Author Type: Registered Nurse Type: ED Notes Filed: 02/03/2024 11:20 Note Text: [email or web address] [facility] ED NOTE HNO ID: [id number] Author: LUCY COLÓN RN Service: ? Author Type: Registered Nurse Type: ED Notes Filed: 02/03/2024 09:57 Note Text: Bed: 12-ED Expected date: Expected time: Means of arrival: Comments: SQUAD [facility] ED PROV NOTEon 02-03-2024 ED PROV NOTE Normal [facility] ED PROV NOTE Normal [facility] Ethanol SerPl-mCncon 024 Ethanol [Mass/Vol] mg/dL Normal <11 [facility] Comment on above: Order Comment: Speci men Type: BLOOD SPECIMENOrdering Facility: [facility] Address: [address] [place] [address] Performed By: #### 5 643-2 ####[facility] LABORATORYCLIA [id number] [place] [address] [place] HISTORY PHYSICALon 4 HISTORY PHYSICAL Normal [facility] Lipase SerPl-cCncon 02-03-20 24 Lipase [Catalytic activity/Vol] 24 U/L Normal 16- [facility] Comment on above: Order Comment: Speci men Type: BLOOD SPECIMENOrdering Facility: [facility] Address: [address] [place] [address] Performed By: #### 2 4323-8, 3040-3 ####[facility] LABORATORYCLIA [id number] [place] [address] [place] PT panel Coag (PPP)on 2023 INR Coag (PPP) [Relative time] 1.0 {INR} Normal 0.9-1.3 [facility] Comment on above: Order Comment: Speci royal Type: BLOOD SPECIMENOrdering Facility: [facility] Address: [address] [place] [address] Result Comment: Nicolette min K Antagonist (VKA) Therapeutic Range: INR 2 to 3 (Target INR of 2.5)Note: For patients treated with VKA drugs, such as warfarin, the [place] [employer] 2012 Guideline recommends a therapeutic INR range of 2 to 3 (target INR of 2.5). This recommendation includes high-risk patients with antiphospholipid syndrome with previous arterial or venous thromboembolism, current-generation mechanical or bioprosthetic aortic heart valve replacement.Note: Patients with mechanical aortic valve replacement and additional risk factors for thromboembolic events (atrial fibrillation, previous thromboembolism, LV dysfunction, hypercoagulable conditions) or an older generation mechanical AVR (i.e., ball in-Cage) or any mechanical MVR should have a INR therapeutic range of 2.5 to 3.5 (target INR of 3).Jimy GH, et al. Chest 2012, 141:7S-47SNishimura RA, et al. [facility] 2017, 70: 252-289 Performed By: #### 1 4979-9, 25401-9 ####[facility] LABORATORYCLIA [id number] [place] [id number] [place] PT Coag (PPP) [Time] 10.3 s Normal 9.7-13.0 [facility] Comment on above: Order Comment: Speci royal Type: BLOOD SPECIMENOrdering Facility: [facility] Address: [address] [place] [address] Performed By: #### 1 4979-9, 71699-1 ####[facility] LABORATORYCLIA [id number] [place] [id number] [place] TYPE + SCREENon 02-03-2024 ABO O Normal [facility] Comment on above: Order Comment: Speci men Type: BLOOD SPECIMENOrdering Facility: [facility] Address: [address] [place] [address] Performed By: #### T SCR ####[facility] BLOOD BANKCLIA [id number] [address] HISTORICAL AB SCR STATUS Negative Normal [facility] Comment on above: Order Comment: Speci men Type: BLOOD SPECIMENOrdering Facility: [facility] Address: [address] [place] [address] Performed By: #### T SCR ####[facility] BLOOD BANKCLIA [id number] [address] Rh Nom (Bld) Positive Normal [facility] Comment on above: Order Comment: Speci men Type: BLOOD SPECIMENOrdering Facility: [facility] Address: [address] [place] [address] Performed By: #### T SCR ####[facility] BLOOD BANKCLIA [id number] [address] TYPE AND SCREEN EXPIRATION 02/06/2024 23:59 Normal [facility] Comment on above: Order Comment: Speci men Type: BLOOD SPECIMENOrdering Facility: [facility] Address: [address] [place] [address] Performed By: #### T SCR ####[facility] BLOOD BANKCLIA [id number] [address] OF [facility] XR CHEST 1V FRONTALon 2023 XR CHEST 1V FRONTAL Normal [facility] XR FEMUR 2V AP/LAT LTon 01-08 XR FEMUR 2V AP/LAT LT Normal [facility] XR HIP 3V PELV+ AP/LAT LTon 02-03-2024 XR HIP 3V PELV+ AP/LAT LT Normal [facility] XR HUMERUS 2V AP/LAT LTon XR HUMERUS 2V AP/LAT LT Normal [facility] XR SHLDR >/=3V AP/NICA AP/OTH R LTon 02-03-2024 XR SHLDR >/=3V AP/NICA AP/OTHR LT Normal [facility] aPTT PPPon 02-03-2024 aPTT Coag (PPP) [Time] 26.2 s Normal 23.0-32.4 [facility] Comment on above: Order Comment: Speci men Type: BLOOD SPECIMENOrdering Facility: [facility] Address: [address] [place] [address] Performed By: #### 1 4979-9, 12132-0 ####[facility] LABORATORYCLIA [id number] [place] [address] [place] Bacteria identified Cx Nom ( U)on 01-30-2024 Interpretation and review of laboratory results Abnormal [facility] Urine cultureon 01-30-2024 Bacteria identified Cx Nom (U) SEE NOTE Abnormal [facility] Comment on above: CULTURE, URINE, ROUTINE Micro Number: [id number] Test Status: Final Specimen Source: Urine Specimen Quality: Adequate Result: Greater than 100,000 CFU/mL of Klebsiella pneumoniae Greater than 100,000 CFU/mL of Escherichia coli K.pneumoniae E.coli INT JENNIE INT JENNIE AMOX/CLAVULANATE S 4 S <=2 AMPICILLIN R >=32 S <=2 AMP/SULBACTAM I 16 S <=2 CEFAZOLIN NR <=4 2 NR <=4 CEFEPIME S <=1 S <=1 CEFTAZIDIME S <=1 S <=1 CEFTRIAXONE S <=1 S <=1 CIPROFLOXACIN S <=0.25 S <=0.25 GENTAMICIN S <=1 S <=1 IMIPENEM S <=0.25 S <=0.25 LEVOFLOXACIN S <=0.12 S <=0.12 NITROFURANTOIN I 64 S <=16 PIP/TAZOBACTAM S 8 S <=4 TOBRAMYCIN S <=1 S <=1 TRIMETHOPRIM/SULFA S <=20 S <=20 S=Susceptible I=Intermediate R=Resistant * = Not Tested NR = Not Reported NN = See Therapy Comments THERAPY COMMENTS Note 1: For infections other than uncomplicated UTI caused by E. coli, K. pneumoniae or P. mirabilis: Cefazolin is resistant if JENNIE > or = 8 mcg/mL. (Distinguishing susceptible versus intermediate for isolates with JENNIE < or = 4 mcg/mL requires additional testing.) Note 2: For uncomplicated UTI caused by E. coli, K. pneumoniae or P. mirabilis: Cefazolin is susceptible if JENNIE <32 mcg/mL and predicts susceptible to the oral agents cefaclor, cefdinir, cefpodoxime, cefprozil, cefuroxime, cephalexin and loracarbef. No Panel InformationOrdered By: Tressa Lam on 01-27-2024 Bilirubin, UA Negative [facility] h Blood, UA Trace-Intact [facility] Glucose, UA Negative [facility] Ketones, UA (mg/dL) Negative Negative mg/dL [facility] Leukocytes, UA Large [facility] th Nitrite, UA Negative [facility] pH, UA 6.[address] [facility] Protein, UA Negative [facility] Spec Grav, UA <1.005 [facility] Urobilinogen, UA 0.2 [facility] alth [facility] Radiology Study observation (narrative) [facility] Progress Noteon 01-27-2024 Progress Note [facility] [address] Dept: [phone] Dept Loc: [phone] Subjective Ann Marie Hill is a 83 y.o. year old who presents to the office with the following complaint(s): No chief complaint on file. Subjective Patient was evaluated at this urgent care yesterday on 01/26/2024 for dysuric symptoms and slight mental status change. is caregiver and is patient's historian. dropped off urine specimen as requested by provider. : Review of Systems Allergies Allergen Reactions Yuli Inhibitors Other Reaction(s): Unknown Ciprofloxacin Other Reaction(s): Unknown, Unknown Nitrofurantoin Itching Penicillins Hives and Rash Other Reaction(s): Unknown Sulfa Antibiotics Rash Other Reaction(s): nausea/sick Current Outpatient Medications on File Prior to Visit Medication Sig Dispense Refill amLODIPine (Norvasc) 10 MG tablet Take 10 mg by mouth in the morning. ascorbic acid (Vitamin C) 1000 MG tablet Take 1,000 mg by mouth in the morning. aspirin 81 MG EC tablet Take 81 mg by mouth in the morning. carvedilol (Coreg) 12.5 MG tablet Take by mouth. cholecalciferol (Vitamin D-3) 50 MCG (2000 UT) tablet Take 2,000 Units by mouth in the morning. cyanocobalamin (Vitamin B-12) 100 MCG tablet Take 100 mcg by mouth in the morning. desvenlafaxine (Pristiq) 50 MG 24 hr tablet Take 50 mg by mouth in the morning. hydrOXYzine HCl (Atarax) 25 MG tablet Take 25 mg by mouth every 8 hours as needed. loratadine (Claritin) 10 MG tablet Take 10 mg by mouth in the morning. potassium chloride CR (Klor-Con M20) 20 MEQ ER tablet Take 40 mEq by mouth in the morning. rosuvastatin (Crestor) 40 MG tablet Take 40 mg by mouth in the morning. Vitamin E 45 MG (100 UNIT) capsule Take 45 mg by mouth in the morning. No current facility-administered medications on file prior to visit. 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 Physical Exam Assessment/Plan 1. Acute cystitis without hematuria - nitrofurantoin, macrocrystal-monohydr ate, (Macrobid) 100 MG capsule; Take 1 capsule (100 mg) by mouth 2 times daily for 7 days., Starting 01/27/2024, Until 02/03/2024, Normal 2. Dysuria - Urine culture - AMB POC URINALYSIS DIP STICK AUTO W/O MICRO Urinalysis performed and was positive for blood and leukocytes. Based on patient's symptoms and abnormal urinalysis suspect acute cystitis. Will start treatment with Macrobid twice daily for 7 days. Will send urine for culture and notify patient and caregiver of results and if treatment adjustment is required. Caregiver notified. Follow-up: No follow-ups on file. Zo Blackmon APRN - [place] 01/27/2024 12:25 PM [facility] Office Visiton 01-26-2024 Follow-up visit [id number] Ann Marie Hill 1940 F Date Provider Department Center 01/26/2024 [facility] None No family history on file Level of Service:33684 [place] OFFICE/OUTPT VISIT,PROCEDURE ONLY Reason for Visit and Comments: UTI [[id number]] - UTI x2-3 weeks. Higher frequency. Burning since today. Normal [facility] Progress Noteon 01-26-2024 Progress Note [facility] [facility] [address] [place] [address] Dept: [phone] Dept Loc: [phone] Subjective Ann Marie Hill is a 83 y.o. year old female who presents to the office with the following complaint(s): Chief Complaint Patient presents with UTI UTI x2-3 weeks. Higher frequency. Burning since today. HPI Patient presents urgent care today with for complaints of burning with urination that started today. states that patient has had frequency for the last couple weeks. expresses that it is difficult as his has dementia and sundowners. requesting urinalysis be completed to determine if patient has a UTI. states she has been acting appropriately otherwise, has been more agitated/anxious-slig htly more confused than normal. Review of Systems Unable to perform ROS: Dementia Constitutional: Negative for activity change and fever. Gastrointestinal: Negative for vomiting. Genitourinary: Positive for dysuria ( states patient complained of burning earlier.). Negative for frequency. Allergies Allergen Reactions Yuli Inhibitors Other Reaction(s): Unknown Ciprofloxacin Other Reaction(s): Unknown, Unknown Nitrofurantoin Itching Penicillins Hives and Rash Other Reaction(s): Unknown Sulfa Antibiotics Rash Other Reaction(s): nausea/sick No past medical history on file. No past surgical history on file. No family history on file. Social History Socioeconomic History Marital status: Tobacco Use Smoking status: Never Current Outpatient Medications on File Prior to Visit Medication Sig Dispense Refill amLODIPine (Norvasc) 10 MG tablet Take 10 mg by mouth in the morning. ascorbic acid (Vitamin C) 1000 MG tablet Take 1,000 mg by mouth in the morning. aspirin 81 MG EC tablet Take 81 mg by mouth in the morning. carvedilol (Coreg) 12.5 MG tablet Take by mouth. cholecalciferol (Vitamin D-3) 50 MCG (2000 UT) tablet Take 2,000 Units by mouth in the morning. cyanocobalamin (Vitamin B-12) 100 MCG tablet Take 100 mcg by mouth in the morning. desvenlafaxine (Pristiq) 50 MG 24 hr tablet Take 50 mg by mouth in the morning. hydrOXYzine HCl (Atarax) 25 MG tablet Take 25 mg by mouth every 8 hours as needed. loratadine (Claritin) 10 MG tablet Take 10 mg by mouth in the morning. potassium chloride CR (Klor-Con M20) 20 MEQ ER tablet Take 40 mEq by mouth in the morning. rosuvastatin (Crestor) 40 MG tablet Take 40 mg by mouth in the morning. Vitamin E 45 MG (100 UNIT) capsule Take 45 mg by mouth in the morning. No current facility-administered medications on file prior to visit. Objective BP (!) 140/68 (BP Location: Right arm, Patient Position: Sitting) Pulse 94 Temp 36.4 ?C (97.5 ?F) Wt 168 lb (76.2 kg) SpO2 97% Physical Exam HENT: Head: Normocephalic. Mouth/Throat: Mouth: Mucous membranes are moist. Eyes: Pupils: Pupils are equal, round, and reactive to light. Pulmonary: Effort: Pulmonary effort is normal. No respiratory distress. Abdominal: Palpations: Abdomen is soft. There is no mass. Tenderness: There is no abdominal tenderness. Skin: General: Skin is warm and dry. Neurological: Mental Status: She is alert. Mental status is at baseline. Psychiatric: Mood and Affect: Mood normal. Assessment: 1. Dysuria Ann Marie was seen today for uti. Diagnoses and all orders for this visit: Dysuria (Primary) Multiple attempts were made to get urine sample from patient. First attempt-patient put paper towels in urine sample. Second attempt-patient had bowel movement Third attempt-I did go in bathroom with patient, bowel movement with no urine. Patient was given multiple bottles of water during visit. Upon patient having third attempt without having urine sample provided-I did speak with patient's . questioning bringing sample in. was given hat, wipe, specimen cup. I explained to that upon patient giving sample he is to put it in specimen cup and put it in the refrigerator. He can bring sample tomorrow-sample given in the morning would be recommended. I Splane to patient's I do not want to start medication today as I do not want to skew results. Patient's has been understanding. New or worsening symptoms prior to bring sample-ER for further evaluation. appreciative and plan of care. (Please note that portions of this note may have been completed with a voice recognition program. Efforts were made to edit the dictations but occasionally words aremis-transcribed.) Susi Norton APRN-WASTE EXAMINER 01/26/24 [facility] CNOVon 01-24-2024 CNOV Normal [facility] ALLIED HEALTHon 01-18-2024 ALLIED HEALTH Normal [facility] Basic metabolic 2000 panelon 01-18-2024 Anion gap [Moles/Vol] 9 mmol/L Normal 9-18 [facility] Comment on above: Order Comment: Speci men Type: BLOOD SPECIMENOrdering Facility: [facility] Address: [address] [place] [address] Performed By: #### 2 4321-2, 75589-2, 3040-3, ####[facility] LABCLIA [id number] [place] [address] [place] Calcium [Mass/Vol] 9.0 mg/dL Normal 8.5-10.2 [facility] Comment on above: Order Comment: Speci men Type: BLOOD SPECIMENOrdering Facility: [facility] Address: [address] [place] [address] Performed By: #### 2 4321-2, 81839-9, 3040-3, 10325-9 ####[facility] LABCLIA [id number] [place] [address] [place] Chloride [Moles/Vol] 106 mmol/L High 97-105 [facility] Comment on above: Order Comment: Speci men Type: BLOOD SPECIMENOrdering Facility: [facility] Address: [address] [place] [address] Performed By: #### 2 4321-2, 04699-1, 3040-3, 34393-5 ####[facility] LABCLIA [id number] [place] [address] [place] CO2 [Moles/Vol] 21 mmol/L Low 22-30 [facility] Comment on above: Order Comment: Speci men Type: BLOOD SPECIMENOrdering Facility: [facility] Address: [address] [place] [address] Performed By: #### 2 4321-2, 87518-4, 3040-3, 06560-7 ####[facility] LABCLIA [id number] [place] [address] [place] Creatinine [Mass/Vol] 0.84 mg/dL Normal 0.58-0.96 [facility] Comment on above: Order Comment: Speci men Type: BLOOD SPECIMENOrdering Facility: [facility] Address: [address] [place] [address] Result Comment: Use of this assay is not recommended for patients undergoing treatment with phenindione, due to the potential for falsely depressed results. Performed By: #### 2 4321-2, 20796-6, 3040-3, ####[facility] LABCLIA [id number] [place] [address] [place] [facility] Creatinine and Glomerular filtration rate.predicted panel (S/P/Bld) 69 mL/min/1.73m??? Normal >=60 [facility] Comment on above: Order Comment: Speci men Type: BLOOD SPECIMENOrdering Facility: [facility] Address: [address] [place] [address] Result Comment: Felicia mated Glomerular Filtration Rate (eGFR) is calculated using the 2020 CKD-EPI creatinine equation. This equation utilizes serum creatinine, sex, and age as parameters. The creatinine assay has traceable calibration to isotope dilution-mass spectrometry. Refer to KDIGO guidelines for clinical interpretation. In patients with unstable renal function, e.g. those with acute kidney injury, the eGFR may not accurately reflect actual GFR. Performed By: #### 2 4321-2, 57200-6, 3040-3, ####[facility] LABCLIA [id number] [place] [address] [place] Glucose [Mass/Vol] 107 mg/dL High 74-99 [facility] Comment on above: Order Comment: Kristin paige Type: BLOOD SPECIMENOrdering Facility: [facility] Address: [address] [place] [address] Result Comment: The [place] Diabetes Association (ADA) provides guidance for cutoff values for fasting glucose and random glucose. The ADA defines fasting as no caloric intake for at least 8 hours. Fasting plasma glucose results between 100 to 125 mg/dL indicate increased risk for diabetes (prediabetes).Fasting plasma glucose results greater than or equal to 126 mg/dL meet the criteria for diagnosis of diabetes. In the absence of unequivocal hyperglycemia, results should be confirmed by repeat testing. In a patient with classic symptoms of hyperglycemia or hyperglycemic crisis, random plasma glucose results greater than or equal to 200 mg/dL meet the criteria for diagnosis of diabetes.Reference: Standards of Medical Care in Diabetes 2016, [place] Diabetes Association. Diabetes Care. 2016.39(Suppl 1). Performed By: #### 2 4321-2, 25425-9, 304-3, ####[facility] LABCLIA [id number] [place] [address] [place] Potassium [Moles/Vol] 3.1 mmol/L Low 3.7-5.1 [facility] Comment on above: Order Comment: Kristin paige Type: BLOOD SPECIMENOrdering Facility: [facility] Address: [address] [id number] Performed By: #### 2 4321-2, 44647-6, 3040-3, 76816-5 ####[facility] LABCLIA [id number] [place] [address] [place] Sodium [Moles/Vol] 136 mmol/L Normal 136-144 [facility] Comment on above: Order Comment: Speci men Type: BLOOD SPECIMENOrdering Facility: [facility] Address: [address] [place] [address] Performed By: #### 2 4321-2, 27193-4, 3040-3, 77217-9 ####[facility] LABCLIA [id number] [place] [address] [place] Urea nitrogen [Mass/Vol] 33 mg/dL High 7-21 [facility] Comment on above: Order Comment: Speci men Type: BLOOD SPECIMENOrdering Facility: [facility] Address: [address] [place] [address] Performed By: #### 2 4321-2, 93571-5, 3040-3, 52506-3 ####[facility] LABCLIA [id number] [place] [address] [place] CBC W Auto Differential pane l (Bld)on 01-18-2024 Basophils (Bld) [#/Vol] 10*3/uL Normal <0.11 [facility] Comment on above: Order Comment: Speci men Type: BLOOD SPECIMENOrdering Facility: [facility] Address: [address] [place] [address] Performed By: #### 5 7021-8 ####[facility] LABCLIA [id number] [place] [address] [place] Basophils/100 WBC (Bld) 0.1 % Normal [facility] Comment on above: Order Comment: Speci men Type: BLOOD SPECIMENOrdering Facility: [facility] Address: [address] [place] [address] Performed By: #### 5 7021-8 ####[facility] LABCLIA [id number] [place] [address] [place] [facility] Differential cell count method Nom (Bld) Auto Normal [facility] Comment on above: Order Comment: Speci men Type: BLOOD SPECIMENOrdering Facility: [facility] Address: [address] [place] [address] Performed By: #### 5 7021-8 ####[facility] LABCLIA [id number] [place] [address] [place] Eosinophils (Bld) [#/Vol] 0.36 10*3/uL Normal <0.46 [facility] Comment on above: Order Comment: Speci men Type: BLOOD SPECIMENOrdering Facility: [facility] Address: [address] [place] [address] Performed By: #### 5 7021-8 ####[facility] LABCLIA [id number] [place] [address] [place] [facility] Eosinophils/100 WBC (Bld) 4.7 % Normal [facility] Comment on above: Order Comment: Speci men Type: BLOOD SPECIMENOrdering Facility: [facility] Address: [address] [place] [address] Performed By: #### 5 7021-8 ####[facility] LABCLIA [id number] [place] [address] [place] Erythrocyte distribution width (RBC) [Ratio] 14.4 % Normal 11.5-15.0 [facility] Comment on above: Order Comment: Speci men Type: BLOOD SPECIMENOrdering Facility: [facility] Address: [address] [place] [address] Performed By: #### 5 7021-8 ####[facility] LABCLIA [id number] [place] [address] [place] Hematocrit (Bld) [Volume fraction] 38.9 % Normal 36.0-46.0 [facility] Comment on above: Order Comment: Speci men Type: BLOOD SPECIMENOrdering Facility: [facility] Address: [address] [place] [address] Performed By: #### 5 7021-8 ####[facility] LABCLIA [id number] [place] [address] [facility] [place] Hemoglobin (Bld) [Mass/Vol] 13.2 g/dL Normal 11.5-15.5 [facility] Comment on above: Order Comment: Speci men Type: BLOOD SPECIMENOrdering Facility: [facility] Address: [facility] [place] [address] Performed By: #### 5 7021-8 ####[facility] LABCLIA [id number] [facility] [address] [place] Immature granulocytes (Bld) [#/Vol] 10*3/uL Normal <0.10 [facility] Comment on above: Order Comment: Speci men Type: BLOOD SPECIMENOrdering Facility: [facility] Address: [address] [place] [address] Performed By: #### 5 7021-8 ####[facility] LABCLIA [id number] [place] [address] [place] Immature granulocytes/100 WBC (Bld) 0.1 % Normal [facility] Comment on above: Order Comment: Speci men Type: BLOOD SPECIMENOrdering Facility: [facility] Address: [address] [place] [address] Performed By: #### 5 7021-8 ####[facility] LABCLIA [id number] [place] [address] [place] Lymphocytes (Bld) [#/Vol] 1.20 10*3/uL Normal 1.00-4.00 [facility] Comment on above: Order Comment: Speci men Type: BLOOD SPECIMENOrdering Facility: [facility] Address: [address] [place] [address] Performed By: #### 5 7021-8 ####[facility] LABCLIA [id number] [place] [address] [place] Lymphocytes/100 WBC (Bld) 15.6 % Normal [facility] Comment on above: Order Comment: Speci men Type: BLOOD SPECIMENOrdering Facility: [facility] Address: [address] [place] [address] Performed By: #### 5 7021-8 ####[facility] LABCLIA [id number] [place] [address] [place] [facility] MCH (RBC) [Entitic mass] 33.2 pg Normal 26.0-34.0 [facility] Comment on above: Order Comment: Speci men Type: BLOOD SPECIMENOrdering Facility: [facility] Address: [address] [place] [address] Performed By: #### 5 7021-8 ####[facility] LABCLIA [id number] [place] [id number] [place] MCHC (RBC) [Mass/Vol] 33.9 g/dL Normal 30.5-36.0 [facility] Comment on above: Order Comment: Speci men Type: BLOOD SPECIMENOrdering Facility: [facility] Address: [address] [place] [address] Performed By: #### 5 7021-8 ####[facility] LABCLIA [id number] [address] [place] MCV (RBC) [Entitic vol] 98.0 fL Normal 80.0-100.0 [facility] Comment on above: Order Comment: Speci men Type: BLOOD SPECIMENOrdering Facility: [facility] Address: [address] [place] [address] Performed By: #### 5 7021-8 ####[facility] LABCLIA [id number] [address] [place] Monocytes (Bld) [#/Vol] 0.51 10*3/uL Normal <0.87 [facility] Comment on above: Order Comment: Speci men Type: BLOOD SPECIMENOrdering Facility: [facility] Address: [address] [place] [address] Performed By: #### 5 7021-8 ####[facility] LABCLIA [id number] [address] Monocytes/100 WBC (Bld) 6.6 % Normal [facility] Comment on above: Order Comment: Speci men Type: BLOOD SPECIMENOrdering Facility: [facility] Address: [address] [place] [address] Performed By: #### 5 7021-8 ####[facility] LABCLIA [id number] [place] [address] [place] Neutrophils (Bld) [#/Vol] 5.60 10*3/uL Normal 1.45-7.50 [facility] Comment on above: Order Comment: Speci men Type: BLOOD SPECIMENOrdering Facility: [facility] Address: [address] [place] [address] Performed By: #### 5 7021-8 ####[facility] LABCLIA [id number] [place] [address] [place] Neutrophils/100 WBC (Bld) 72.9 % Normal [facility] Comment on above: Order Comment: Speci men Type: BLOOD SPECIMENOrdering Facility: [facility] Address: [address] [place] [address] Performed By: #### 5 7021-8 ####[facility] LABCLIA [id number] [place] [address] [place] Nucleated RBC (Bld) [#/Vol] Normal [facility] Comment on above: Order Comment: Speci men Type: BLOOD SPECIMENOrdering Facility: [facility] Address: [address] [place] [address] Performed By: #### 5 7021-8 ####[facility] LABCLIA [id number] [place] [address] [place] Nucleated RBC/100 WBC (Bld) [Ratio] Normal [facility] Comment on above: Order Comment: Speci men Type: BLOOD SPECIMENOrdering Facility: [facility] Address: [address] [place] [address] Performed By: #### 5 7021-8 ####[facility] LABCLIA [id number] [place] [address] [place] Platelet mean volume (Bld) [Entitic vol] 8.8 fL Low 9.0-12.7 [facility] Comment on above: Order Comment: Speci men Type: BLOOD SPECIMENOrdering Facility: [facility] Address: [address] [place], [place] [address] Performed By: #### 5 7021-8 ####[facility] LABCLIA [id number] [place] [address] [place] Platelets (Bld) [#/Vol] 278 10*3/uL Normal 150-400 [facility] Comment on above: Order Comment: Speci men Type: BLOOD SPECIMENOrdering Facility: [facility] Address: [address] [place] [address] Performed By: #### 5 7021-8 ####[facility] LABCLIA [id number] [place] [address] [place] RBC (Bld) [#/Vol] 3.97 10*6/uL Normal 3.90-5.20 [facility] Comment on above: Order Comment: Speci men Type: BLOOD SPECIMENOrdering Facility: [facility] Address: [address] [place] [address] Performed By: #### 5 7021-8 ####[facility] LABCLIA [id number] [place] [address] [place] WBC (Bld) [#/Vol] 7.69 10*3/uL Normal 3.70-11.00 [facility] Comment on above: Order Comment: Speci men Type: BLOOD SPECIMENOrdering Facility: [facility] Address: [address] [place] [address] Performed By: #### 5 7021-8 ####[facility] LABCLIA [id number] [place] [address] [place] [address] ABD/PEL W IVCONon 024 CT ABD/PEL W IVCON Normal [facility] ED NOTEon 01-18-2024 ED NOTE HNO ID: [id number] Author: MARY ELLEN KNAPP, RN Service: Emergency Medicine Author Type: Registered Nurse Type: ED Notes Filed: 01/18/2024 14:14 Note Text: Patient assisted with dressing. Escorted to vehicle in wheelchair with assist X 1 into car. Normal [facility] ED NOTE Normal [facility] ED NOTE HNO ID: [id number] Author: MARY ELLEN KNAPP, RN Service: Emergency Medicine Author Type: Registered Nurse Type: ED Notes Filed: 01/18/2024 12:43 Note Text: NC removed. Patient maintaining saturations above 97% on RA Normal [facility] ED NOTE Normal [facility] ED NOTE Normal [facility] ED PROV NOTEon 01-18-2024 ED PROV NOTE Normal [facility] FLUABV+SARS-CoV-2+RSV Pnl Re sp HAYDEN+probeon 01-18-2024 FLUABV+SARS-CoV-2+RSV Pnl Resp HAYDEN+probe Normal [facility] Comment on above: Performed By: #### 9 5941-1 ####[facility] LABCLIA [id number] [place] [address] [place] Hepatic function 2000 panelo n 01-18-2024 Albumin [Mass/Vol] 3.8 g/dL Low 3.9-4.9 [facility] Comment on above: Order Comment: Speci men Type: BLOOD SPECIMENOrdering Facility: [facility] Address: [address] [place] [address] Performed By: #### 2 4321-2, 88653-1, 3039-3, ####[facility] LABCLIA [id number] [place] [address] [place] ALP [Catalytic activity/Vol] 96 U/L Normal 34-123 [facility] Comment on above: Order Comment: Speci men Type: BLOOD SPECIMENOrdering Facility: [facility] Address: [address] [place] [address] Performed By: #### 2 4321-2, 70583-0, 3039-3, ####[facility] LABCLIA [id number] [place] [address] [place] ALT [Catalytic activity/Vol] 30 U/L Normal 7-38 [facility] Comment on above: Order Comment: Speci men Type: BLOOD SPECIMENOrdering Facility: [facility] Address: [address] [place], [place] [address], [place] [address] Performed By: #### 2 4321-2, 72598-3, 3040-3, 71295-5 ####[facility] LABCLIA [id number] [place] [address] [place] AST [Catalytic activity/Vol] 25 U/L Normal 13-35 [facility] Comment on above: Order Comment: Speci men Type: BLOOD SPECIMENOrdering Facility: [facility] Address: [address] [place] [address] Performed By: #### 2 4321-2, 72209-2, 3040-3, 87848-4 ####[facility] LABCLIA [id number] [place] [address] [place] Bilirubin [Mass/Vol] 0.3 mg/dL Normal 0.2-1.3 [facility] Comment on above: Order Comment: Speci men Type: BLOOD SPECIMENOrdering Facility: [facility] Address: [address] [place] [address] Performed By: #### 2 4321-2, 47396-4, 3040-3, 13123-9 ####[facility] LABCLIA [id number] [place] [address] [place] Bilirubin.conjugated [Mass/Vol] 0.0 mg/dL Normal <0.2 [facility] Comment on above: Order Comment: Speci men Type: BLOOD SPECIMENOrdering Facility: [facility] Address: [address] [place] [address] Performed By: #### 2 4321-2, 71334-9, 3040-3, 71209-2 ####[facility] LABCLIA [id number] [place] [address] [place] Protein [Mass/Vol] 7.0 g/dL Normal 6.3-8.0 [facility] Comment on above: Order Comment: Speci men Type: BLOOD SPECIMENOrdering Facility: [facility] Address: [address] [place] [address] Performed By: #### 2 4321-2, 99664-2, 3040-3, 81455-3 ####[facility] LABCLIA [id number] [place] [address] [place] Lactate (Bld) [Moles/Vol]on 01-18-2024 Lactate [Moles/Vol] 1.1 mmol/L Normal 0.5-2.2 [facility] Comment on above: Order Comment: Speci men Type: BLOOD SPECIMENOrdering Facility: [facility] Address: [address] [place] [address] Performed By: #### 3 2693-4 ####[facility] LABCLIA [id number] [place] [address] [place] Lipase SerPl-cCncon 01-18-20 24 Lipase [Catalytic activity/Vol] 15 U/L Low 16-61 [facility] Comment on above: Order Comment: Speci men Type: BLOOD SPECIMENOrdering Facility: [facility] Address: [address] [place] [address] Performed By: #### 2 4321-2, 34094-7, 3040-3, 54142-4 ####[facility] LABCLIA [id number] [place] [address] [place] Magnesium SerPl-mCncon 01-17 Magnesium [Mass/Vol] 2.1 mg/dL Normal 1.7-2.3 [facility] Comment on above: Order Comment: Speci men Type: BLOOD SPECIMENOrdering Facility: [facility] Address: [address] [place] [address] Performed By: #### 2 4321-2, 95546-8, 3040-3, 82563-9 ####[facility] LABCLIA [id number] [place] [address] [place] CNPNon 01-10-2024 CNPN Normal [facility] CASE MANAGEMon 01-01-2024 CASE MANAGEM HNO ID: [id number] Author: ASTRID MUNSON RN Service: ? Author Type: Registered Nurse Type: Care Mgt Progress Note Filed: 01/01/2024 16:23 Note Text: CARE MANAGEMENT DISCHARGE NOTE SERVICE DATE: January 01, 2024 SERVICE TIME: 4:21 PM Admission Date: 12/25/2023 LOS: 0 days Discharge Arrangement Discharge Arrangement: Long-Term Facility Was an expedited discharge program used?: No Provider [facility]: [facility] Caregiver Assessment Caregiver is ready, willing and able to meet the patient's needs as recommended by the inter-professional team: Other: See Comment (SNF) Transportation Arrangements Transportation Arrangements: Ambulance Transportation Agency and Phone #:: [facility] [phone] Date of Trip: 01/01/24 Time of Trip: 1700 Type of Service: BLS Non-emergency Is Patient Medicaid Pending?: No Was transportation financial coverage discussed with family?: Spouse [place] [facility] Financial Care Management Responsibility: None Handoff Communication: Handoff to: Primary Care Physician Primary Care Physician Name/Phone: Dr. Festus Grimes- [phone] Additional Information: Discharge order written for today[facility] set up for a 5:00 cotton picker. Spoke with the patients Orestes regarding the patients discharge to [facility] today with a 5:00 cotton picker time scheduled. Notified the RN and MATERIALS ANALYST of the cotton picker time. Notified the [facility] of the patients discharge today and cotton picker time. Discharge instructions sent to [facility] via [employer]. SIGNATURE: Astrid Munson RN PATIENT NAME: Ann Marie Hill DATE: January 01, 2024 TIME: 4:21 PM CONTACT #: [phone] [facility] CASE MANAGEM HNO ID: [id number] Author: ASTRID MUNSON RN Service: ? Author Type: Registered Nurse Type: Care Mgt Progress Note Filed: 01/01/2024 15:31 Note Text: CARE MANAGEMENT PROGRESS NOTE SERVICE DATE: 01/01/2024 SERVICE TIME: 9:30 am LOS: 0 days Needs Prior to Discharge: Precertification Received a VM message from Carla with [facility] that the precert is still pending. CM department will continue to follow for DC needs. 3:30 pm- Took call [facility] she has precert for the patient. Notified Dr. Cook. SIGNATURE: Astrid Munson RN PATIENT NAME: Ann Marie Hill DATE: January 01, 2024 TIME: 12:23 PM PAGER/CONTACT #: [phone] [facility] HNO ID: [id number] Author: AKI COOK MD Service: Hospital Medicine Author Type: Physician Type: Discharge Summary Filed: 01/10/2024 16:41 Note Text: DISCHARGE SUMMARY PATIENT NAME: Ann Marie Hill ADMISSION DATE: 12/25/2023 DISCHARGE DATE: 01/01/2024 ATTENDING PHYSICIAN: No att. providers found Code Status: Prior PCP: Festus Grimes MD Highest Readmission Risk Score: 17 The 30 day readmissions risk score is derived from an internally validated risk model which evaluates patient level characteristics, utilization history, medication orders and lab results up until the day of discharge. Patients with a score of 40 or above are considered highest risk for readmission. Specific patient level drivers will be listed at the bottom of the summary. REASON FOR HOSPITALIZATION: Humeral Fracture PRINCIPAL DIAGNOSIS: Humeral Fracture SECONDARY DIAGNOSIS: Principal Problem: Comminuted left humeral fracture, closed, initial encounter (POA: Yes) Active Problems: Hypertension (POA: Yes) Dementia (HCC) (POA: Yes) UTI (urinary tract infection) (POA: No) Delirium (POA: Yes) Other female genital prolapse (POA: Yes) Hypokalemia (POA: Yes) Resolved Problems: * No resolved hospital problems. * HOSPITAL COURSE: Ann Marie Hill is a 83 year old female with a PMH of Alzheimer's Dementia, HTN presenting with a fall and comminuted/impacted, mildly displaced left humeral fracture. Patient seen by ortho, recommended protectioni in sling, limited use and rehab for 2-3 weeks to increase ROM. We did have Gynecology placed for concern for prolapse. They recommend evaluation with Urogyn for further management as an outpatient. She was discharged to SNF. CONSULTS DURING HOSPITALIZATION: Treatment Team: Primary Service: , [facility] Consulting: Aramis Nascimento MD Orders Placed This Encounter PHYSICIAN CONSULT PATIENT CONDITION AT DISCHARGE: Stable DISCHARGE DISPOSITION: Long-Term Facility GENERAL: Alert, no distress, cooperative SKIN: Skin color, texture, turgor normal. No rashes or lesions. HEAD/SINUSES: No significant findings EYES: EOMI BACK: Back symmetric, Normal curvature, ROM normal LUNGS: Lungs clear to auscultation, Good diaphragmatic excursion CARDIAC: Normal S1 and S2; no rubs, murmurs, or gallops ABDOMEN: Abdomen soft, non-tender, BS normal, No masses or organomegaly EXTREMITIES: LUE in sling NEURO: Baseline reduced cognition, motor function, and cranial nerves III-XII DIET: Resume pre-hospital diet ACTIVITY AND EXERCISE: Resume pre-hospital activity FOLLOW UP APPOINTMENTS: Future Appointments Date Time Provider Department Center 02/20/2024 1:00 PM Helio Goff APRN.JUNIOR DATA ANALYST [facility] Allergen Reactions Yuli Inhibitors Unknown Ciprofloxacin Unknown Penicillins Hives Sulfa (Sulfonamide * Rash DISCHARGE MEDICATION: Medication List CONTINUE taking these medications amLODIPine 10 mg tablet Commonly known as: NORVASC aspirin, enteric coated 81 mg EC tablet Commonly known as: ASPIRIN, ENTERIC COATED carvedilol 12.5 mg tablet Commonly known as: COREG cholecalciferol 50 mcg (2,000 unit) tablet Commonly known as: VITAMIN D3 CLARITIN 10 mg tablet Generic drug: loratadine coQ10 (ubiquinol) 100 mg Cap Take 1 capsule daily with a meal. desvenlafaxine ER 50 mg 24 hr tablet Commonly known as: PRISTIQ hydrOXYzine HCl 25 mg tablet Commonly known as: ATARAX PHOSPHATIDYLSERINE ORAL potassium chloride ER 20 mEq tablet Commonly known as: KLOR-CON rosuvastatin 40 mg tablet Commonly known as: CRESTOR VITAMIN B-12 100 mcg Tab Generic drug: cyanocobalamin VITAMIN C 1,000 mg tablet Generic drug: Ascorbic Acid Vitamin E (dl, acetate) 45 mg (100 unit) capsule The patient's risk for 30-day readmission is determined using the following contributing factors: Pt variables contributing to increased readmission risk: 27 Most Recent BUN Result 9.2 First Resulted Calcium During Admission 1 Previous ED Visit (6 mos.)? 1 Number of Previous ED Visits (6 mos.) 1 Insurance - Medicare 1 Barriers to Health Literacy Identified I have performed the xyap-bf-ojvi and relevant services for a total of < 30 minutes. Plan of care discussed with Provider, RN, Patient SIGNATURE: Aki Cook MD DATE: January 10, 2024 TIME: 4:39 PM [facility] NUTRITIONon 01-01-2024 NUTRITION HNO ID: [id number] Author: SHASHI GARAY RD Service: Nutrition Therapy Author Type: Registered Dietitian Type: Nutrition Filed: 01/01/2024 10:22 Note Text: NUTRITION THERAPY SERVICE DATE: 01/01/2024 SERVICE TIME: 7:50 am Visit Type: Length of Stay Plan of Care: Intake- 75-100 % of meals. Monitor intake. Reviewed current labs and physician progress notes. Nursing Admission Assessment Malnutrition Score: 0 Nutrition Intake: Diet Orders (From admission, onward) Start Ordered 12/26/23 0000 Diet Regular START NOW 12/25/232353 Anthropometrics: Weight: 75.2 kg (165 lb 12.6 oz) Body mass index is 28.46 kg/m?. MNT Billing: $ Routine Care : 1-15 minutes SIGNATURE: Shashi Garay RD PATIENT NAME: Ann Marie Hill DATE: January 01, 2024 TIME: 10:21 AM [facility] CASE MANAGEMon 12-31-2023 CASE MANAGEM HNO ID: [id number] Author: MERARY OLSEN LISW Service: ? Author Type: Data Reporting Analyst Type: Care Mgt Progress Note Filed: 12/31/2023 11:41 Note Text: CARE MANAGEMENT PROGRESS NOTE SERVICE DATE: 12/31/2023 SERVICE TIME: 11:40 AM LOS: 0 days Needs Prior to Discharge: To Be Determined;Other: See Comment;Discharge Transportation;Insura nce Authorization (medical clearance) Still awaiting auth from [facility]. PASRR completed. Unfinished envelope on chart. SIGNATURE: Merary Olsen CNC ROUTER OPERATOR, COUNTER ATTENDANT PATIENT NAME: Ann Marie Hill DATE: December 31, 2023 TIME: 11:40 AM PAGER/CONTACT #: [phone] [facility] Basic metabolic 2000 panelon 12-30-2023 Anion gap [Moles/Vol] 11 mmol/L Normal 9-18 [facility] Comment on above: Order Comment: Speci men Type: BLOOD SPECIMENOrdering Facility: [facility] Address: [address] [place] [address] Performed By: #### 2 4321-2, ####[facility]ORATORYCLIA [id number] [place] [address] [place] Calcium [Mass/Vol] 8.9 mg/dL Normal 8.5-10.2 [facility] Comment on above: Order Comment: Speci men Type: BLOOD SPECIMENOrdering Facility: [facility] Address: [address] [place] [address] Performed By: #### 2 4321-2, ####[facility] LABORATORYCLIA [id number] [place] [address] [place] Chloride [Moles/Vol] 104 mmol/L Normal 97-105 [facility] Comment on above: Order Comment: Speci men Type: BLOOD SPECIMENOrdering Facility: [facility] Address: [address] [place] [address] Performed By: #### 2 4320-2, ####[facility] LABORATORYCLIA [id number] [place] [address] [place] CO2 [Moles/Vol] 23 mmol/L Normal 22-30 [facility] Comment on above: Order Comment: Speci men Type: BLOOD SPECIMENOrdering Facility: [facility] Address: [address] [address] Performed By: #### 2 4320-2, ####[facility] LABORATORYCLIA [id number] [place] [id number] [place] Creatinine [Mass/Vol] 0.86 mg/dL Normal 0.58-0.96 [facility] Comment on above: Order Comment: Speci men Type: BLOOD SPECIMENOrdering Facility: [facility] Address: [facility] [place] [address] Performed By: #### 2 4320-2, ####[facility] LABORATORYCLIA [id number] [place] [address] [facility] [place] Creatinine and Glomerular filtration rate.predicted panel (S/P/Bld) 68 mL/min/1.73m??? Normal >=60 [facility] Comment on above: Order Comment: Kristin paige Type: BLOOD SPECIMENOrdering Facility: [facility] Address: [address] [place] [address] Result Comment: Felicia mated Glomerular Filtration Rate (eGFR) is calculated using the 2020 CKD-EPI creatinine equation. This equation utilizes serum creatinine, sex, and age as parameters. The creatinine assay has traceable calibration to isotope dilution-mass spectrometry. Refer to KDIGO guidelines for clinical interpretation. In patients with unstable renal function, e.g. those with acute kidney injury, the eGFR may not accurately reflect actual GFR. Performed By: #### 2 4321-2, ####[facility] LABORATORYCLIA [id number] [place] [id number] [place] Glucose [Mass/Vol] 112 mg/dL High 74-99 [facility] Comment on above: Order Comment: Kristin paige Type: BLOOD SPECIMENOrdering Facility: [facility] Address: [address] [place], [place] [address] [address] Result Comment: The [place] Diabetes [employer] (ADA) provides guidance for cutoff values for fasting glucose and random glucose. The ADA defines fasting as no caloric intake for at least 8 hours. Fasting plasma glucose results between 100 to 125 mg/dL indicate increased risk for diabetes (prediabetes). Fasting plasma glucose results greater than or equal to 126 mg/dL meet the criteria for diagnosis of diabetes. In the absence of unequivocal hyperglycemia, results should be confirmed by repeat testing. In a patient with classic symptoms of hyperglycemia or hyperglycemic crisis, random plasma glucose results greater than or equal to 200 mg/dL meet the criteria for diagnosis of diabetes. Reference: Standards of Medical Care in Diabetes 2016, [place] [employer]. Diabetes Care. 2016.39(Suppl 1). Performed By: #### 2 4321-2, ####[facility] LABORATORYCLIA [id number] [place] [id number] [place] Potassium [Moles/Vol] 4.7 mmol/L Normal 3.7-5.1 [facility] Comment on above: Order Comment: Kristin paige Type: BLOOD SPECIMENOrdering Facility: [facility] Address: [address], [place] [address] Performed By: #### 2 4321-2, ####[facility] LABORATORYCLIA [id number] [place] [address] [place] Sodium [Moles/Vol] 138 mmol/L Normal 136-144 [facility] Comment on above: Order Comment: Speci men Type: BLOOD SPECIMENOrdering Facility: [facility] Address: [address] [place] [address] Performed By: #### 2 4321-2, ####M[facility]AL[facility] LABORATORYCLIA [id number] [place] [address] [place] Urea nitrogen [Mass/Vol] 27 mg/dL High 7-21 [facility] Comment on above: Order Comment: Speci men Type: BLOOD SPECIMENOrdering Facility: [facility] Address: [address] [place] [address] Performed By: #### 2 4321-2, ####MORAL[facility] LABORATORYCLIA [id number] [place] [address] [place] CBC panel Auto (Bld)on 12-29 Erythrocyte distribution width (RBC) [Ratio] 13.6 % Normal 11.5-15.0 [facility] Comment on above: Order Comment: Speci men Type: BLOOD SPECIMEN [facility] Address: [address] [place] [address] Performed By: #### 5 8410-2 #### [facility] CLIA [id number] [address] [place] Hematocrit (Bld) [Volume fraction] 34.3 % Low 36.0-46.0 [facility] Comment on above: Order Comment: Speci men Type: BLOOD SPECIMEN [facility] Address: [address] [place] [address] Performed By: #### 5 8410-2 #### [facility] CLIA [id number] [address] [place] Hemoglobin (Bld) [Mass/Vol] 11.2 g/dL Low 11.5-15.5 [facility] Comment on above: Order Comment: Speci men Type: BLOOD SPECIMEN [facility] Address: [address] [place] [address] Performed By: #### 5 8410-2 #### [facility] CLIA [id number] [address] MCH (RBC) [Entitic mass] 30.9 pg Normal 26.0-34.0 [facility] Comment on above: Order Comment: Speci men Type: BLOOD SPECIMEN [facility] Address: [address] [place] [address] Performed By: #### 5 8410-2 #### [facility] CLIA [id number] [address] MCHC (RBC) [Mass/Vol] 32.7 g/dL Normal 30.5-36.0 [facility] Comment on above: Order Comment: Speci men Type: BLOOD SPECIMEN [facility] Address: [address] [place] [address] Performed By: #### 5 8410-2 #### [facility] CLIA [id number] [address] MCV (RBC) [Entitic vol] 94.5 fL Normal 80.0-100.0 [facility] Comment on above: Order Comment: Speci men Type: BLOOD SPECIMEN [facility] Address: [address] [place] [address] Performed By: #### 5 8410-2 #### [facility] CLIA [id number] [address] Nucleated RBC (Bld) [#/Vol] 10*3/uL Normal <0.01 [facility] Comment on above: Order Comment: Speci men Type: BLOOD SPECIMEN [facility] Address: [address] [place] [address] Performed By: #### 5 8410-2 #### [facility] CLIA [id number] [address] Platelet mean volume (Bld) [Entitic vol] 9.0 fL Normal 9.0-12.7 [facility] Comment on above: Order Comment: Speci men Type: BLOOD SPECIMEN [facility] Address: [address] [place] [address] Performed By: #### 5 8410-2 #### [facility] CLIA [id number] [address] [place] Platelets (Bld) [#/Vol] 305 10*3/uL Normal 150-400 [facility] Comment on above: Order Comment: Speci men Type: BLOOD SPECIMEN [facility] Address: [address] [place] [address] Performed By: #### 5 8410-2 #### [facility] CLIA [id number] 1000 [place] [address] [place] RBC (Bld) [#/Vol] 3.63 10*6/uL Low 3.90-5.20 [facility] Comment on above: Order Comment: Speci men Type: BLOOD SPECIMEN [facility] Address: [address] [place] [address] Performed By: #### 5 8410-2 #### [facility] CLIA [id number] [address] [place] WBC (Bld) [#/Vol] 9.09 10*3/uL Normal 3.70-11.00 [facility] Comment on above: Order Comment: Speci men Type: BLOOD SPECIMEN [facility] Address: [address] [place] [address] Performed By: #### 5 8410-2 #### [facility] CLIA [id number] [address] [place] Magnesium SerPl-mCncon 12-29 Magnesium [Mass/Vol] 2.3 mg/dL Normal 1.7-2.3 [facility] Comment on above: Order Comment: Speci men Type: BLOOD SPECIMENOrdering Facility: [facility] Address: [address] [place] [address] Performed By: #### 2 4321-2, 64452-7 ####[facility] LABORATORYCLIA [id number] [place] [address] OF [facility] THERAPY NTon 12-30-2023 THERAPY NT HNO ID: [id number] Author: BERNARDO TOLEDO PT Service: Physical Therapy Author Type: Physical Therapist Type: Therapy (PT/OT/Speech/Resp) Filed: 12/30/2023 15:47 Note Text: Summary: PT treatment Physical Therapy Treatment Summary SERVICE DATE: 12/30/2023 SERVICE TIME: 1450 to 1533 ROOM: [place] [address] PT 6 Clicks Score: 16 Total Joint Replacement Discharge Readiness: Not Applicable DISCHARGE RECOMMENDATIONS Subacute/SNF Recommended Discharge Disposition Comments: sp fall humeral fx Recommended Discharge Disposition Due to: Patient requires daily, facility-based rehabilitation from at least one discipline due to:, ADL impairment resulting in caregiver dependence, Cognitive-behavioral therapy needs, decline in functional status requiring daily skilled care, deficits affecting dominant side, ongoing intervention of multiple therapy disciplines Recommended Discharge Equipment: To Be Determined ASSESSMENT Response to Therapy Interventions: Cognitive Deficits, Good Participation in Activities, Improved Tolerance for Activity, On-Track to Achieve Discharge Goals, Pain, Multiple Ongoing Medical Issues, Needs Frequent Redirection or Reinstruction, Requires Additional Time to Complete Activities Pt is oriented to self only, poor safety awareness and lacking appropriate insight into current limitations; pt is highly distractible throughout session by family and other tangential topics requiring frequent re-focus to task at hand; family present and noted to be very supportive and attentive to pt needs; assist x 1 with hand held assist throughout, cues as indicated, L UE in sling; pt c/o persistent L UE pain throughout however noted improvement in pain behaviors with re-direction, focusing away and distraction, + fall risk PRECAUTIONS Weight Bearing Restrictions, Sling, Bed/Chair Alarm slign on when up, can rest with sling off when sitting, AROM and AAROM to elbow, wrist, and hand. Left Upper Extremity Weight Bearing Status: NWB CURRENT HOSPITAL COURSE fall at [facility], non witnessed, humeral fracture on left UE. xay: Acute, comminuted/impacted, mildly displaced left humeral neck fracture Relevant Past Medical History: HTN and dementia HOME LIVING Patient Lives With: Facility Care ([facility] memory care unit) Assistance Available: 24-Hour Entry To Home: No Stairs Number Of Stairs To Bed/Bath: 0 Laundry: facility completes Equipment Owned: Other: See Comment (none) PRIOR FUNCTIONAL LEVEL Required Assistance, Within Functional Limits Assistance Required With: Transportation, Shopping, Self Care, Medication Management, Meals, Cleaning, Laundry SUBJECTIVE Pt resting at approach with dtr in law and dtr in law's sister present, no acute distress noted however intermittently c/o pain L UE with movement, oriented to name only which family reports to be baseline, agreeable to PT treatment, ok per RN for PT THERAPY DIAGNOSIS Reduced mobility-other TREATMENT INTERVENTIONS Therapeutic Exercise (57469), Therapeutic Activity (67820), Gait Training (38724) Timed Code Treatment (minutes): 38 Skilled Treatment Time (minutes): 40 Completes 15 repetitions (unless otherwise indicated) of the following supine therapeutic exercises on B LE with assistance as indicated: ankle pumps ( B, no assistance), heel slides (minimal assistance), SAQs (minimal assistance), hip abduction with quad set (moderate assistance) , SLR with quad set (minimal to moderate assistance). verbal, visual and tactile cues throughout for technique, deep breathing/relaxation and for patient to assist as able throughout. Requires assistance as indicated secondary to functional weakness. Appropriately follows simple cues throughout with focused attention, requires frequent cues for re-direction due to highly distractible throughout *Rest breaks provided throughout secondary to fatigue/weakness. Education to patient and family on benefits/rationale for exercises Skilled judgment was provided in selection of appropriate interventions. Extended time for education on importance of mobility and benefits of OOB, consequences of extended bed rest, with pt requiring gentle encouragement this session for mobility, reluctant due to L UE pain Provided with ice post- and education to pt and family at length on benefits of ice for pain and swelling, continued d/c rec of SNF, importance of encouraging pt for use of R UE as able + time for repositioning of sling L UE once sitting at EOB for better alignment and fit TRAINING AND EDUCATION PROVIDED Anatomy and Impact on Deficits, Bed Mobility, Benefits of In-Hospital Mobility, Discharge Planning, Expected Functional Level, Positioning, Pre-gait Activities, Role of Physical Therapy, Standing Balance, Transfers, Exerc (more content not included)... Normal [facility] Basic metabolic 2000 panelon 12-29-2023 Anion gap [Moles/Vol] 10 mmol/L Normal -18 [facility] Comment on above: Order Comment: Speci men Type: BLOOD SPECIMEN [facility] Address: [address] [place] [address] Performed By: #### 1 9, 69960-8 #### [facility] CLIA [id number] [address] [place] [address] [place] Calcium [Mass/Vol] 9.0 mg/dL Normal 8.5-10.2 [facility] Comment on above: Order Comment: Speci men Type: BLOOD SPECIMEN [facility] Address: [address] [place] [address] Performed By: #### 1 9123-06, 83410-6 #### [facility] CLIA [id number] [address] [place] [address] [place] Chloride [Moles/Vol] 104 mmol/L Normal 97-105 [facility] Comment on above: Order Comment: Speci men Type: BLOOD SPECIMEN [facility] Address: [address] [place] [address] Performed By: #### 1 239, 28069-7 #### [facility] CLIA [id number] [address] [place] [address] [place] CO2 [Moles/Vol] 25 mmol/L Normal 22-30 [facility] Comment on above: Order Comment: Speci men Type: BLOOD SPECIMEN [facility] Address: [address] [place] [address] Performed By: #### 1 9123-06, 96650-1 #### [facility] CLIA [id number] [address] [place] [address] [place] [facility] Creatinine [Mass/Vol] 0.79 mg/dL Normal 0.58-0.96 [facility] Comment on above: Order Comment: Kristin paige Type: BLOOD SPECIMEN [facility] Address: [address] [place] [address] Performed By: #### 1 9123-9, 93983-7 #### [facility] CLIA [id number] [address] Creatinine and Glomerular filtration rate.predicted panel (S/P/Bld) 75 mL/min/1.73m??? Normal >=60 [facility] Comment on above: Order Comment: Kristin paige Type: BLOOD SPECIMEN [facility] Address: [address] [place] [address] Result Comment: Felicia mated Glomerular Filtration Rate (eGFR) is calculated using the 2020 CKD-EPI creatinine equation. This equation utilizes serum creatinine, sex, and age as parameters. The creatinine assay has traceable calibration to isotope dilution-mass spectrometry. Refer to KDIGO guidelines for clinical interpretation. In patients with unstable renal function, e.g. those with acute kidney injury, the eGFR may not accurately reflect actual GFR. Performed By: #### 1 9123-9, 61878-3 #### [facility] CLIA [id number] [address] STATES OF [facility] Glucose [Mass/Vol] 109 mg/dL High 74-99 [facility] Comment on above: Order Comment: Kristin paige Type: BLOOD SPECIMEN [facility] Address: [address] [place] [address] Result Comment: The [place] Diabetes [employer] (ADA) provides guidance for cutoff values for fasting glucose and random glucose. The ADA defines fasting as no caloric intake for at least 8 hours. Fasting plasma glucose results between 100 to 125 mg/dL indicate increased risk for diabetes (prediabetes). Fasting plasma glucose results greater than or equal to 126 mg/dL meet the criteria for diagnosis of diabetes. In the absence of unequivocal hyperglycemia, results should be confirmed by repeat testing. In a patient with classic symptoms of hyperglycemia or hyperglycemic crisis, random plasma glucose results greater than or equal to 200 mg/dL meet the criteria for diagnosis of diabetes. Reference: Standards of Medical Care in Diabetes 2016, [place] [employer]. Diabetes Care. 2016.39(Suppl 1). Performed By: #### 1 9123-9, 57887-9 #### [facility] CLIA [id number] [address] STATES OF [facility] Potassium [Moles/Vol] 4.1 mmol/L Normal 3.7-5.1 [facility] Comment on above: Order Comment: Kristin paige Type: BLOOD SPECIMEN [facility] Address: [address] [place] [address] Performed By: #### 1 9123-9, 65673-8 #### [facility] CLIA [id number] [address] Sodium [Moles/Vol] 139 mmol/L Normal 136-144 [facility] Comment on above: Order Comment: Kristin paige Type: BLOOD SPECIMEN [facility] Address: [address] [place] [address] Performed By: #### 1 9123-9, 94130-4 #### [facility] CLIA [id number] [address] Urea nitrogen [Mass/Vol] 25 mg/dL High 7- [facility] Comment on above: Order Comment: Kristin paige Type: BLOOD SPECIMEN [facility] Address: [address] [place] [address] Performed By: #### 1 9123-9, 63235-1 #### [facility] CLIA [id number] [address] [place] CASE MANAGEMon 12-29-2023 CASE MANAGEM HNO ID: [id number] Author: ASTRID MUNSON RN Service: ? Author Type: Registered Nurse Type: Care Mgt Progress Note Filed: 12/29/2023 09:25 Note Text: CARE MANAGEMENT PROGRESS NOTE SERVICE DATE: 12/29/2023 SERVICE TIME: 9:07 AM LOS: 0 days Needs Prior to Discharge: Facility or Agency Choices;Precertificat ion [facility]. Updated the patients daughter Christos, Christos stated she will updated her dad and notify CM of their choice. CM department will continue to follow for DC needs. 9:24 am- Spoke with Christos, [facility] [place] [facility]. [facility] SIGNATURE: Astrid Munson RN PATIENT NAME: Ann Marie Hill DATE: December 29, 2023 TIME: 9:07 AM PAGER/CONTACT #: [phone] Normal [facility] CBC panel Auto (Bld)on 12-28 Erythrocyte distribution width (RBC) [Ratio] 13.5 % Normal 11.5-15.0 [facility] Comment on above: Order Comment: Speci men Type: BLOOD SPECIMENOrdering Facility: [facility] Address: [address] [place] [address] Performed By: #### 5 8410-2 ####[facility] LABORATORYCLIA [id number] [address] [place] Hematocrit (Bld) [Volume fraction] 34.5 % Low 36.0-46.0 [facility] Comment on above: Order Comment: Speci men Type: BLOOD SPECIMENOrdering Facility: [facility] Address: [address] [place] [address] Performed By: #### 5 8410-2 ####MORALES LABORATORYCLIA [id number] [place] [address] [place] Hemoglobin (Bld) [Mass/Vol] 11.7 g/dL Normal 11.5-15.5 [facility] Comment on above: Order Comment: Speci men Type: BLOOD SPECIMENOrdering Facility: [facility] Address: [address] [place] [address] Performed By: #### 5 8410-2 ####MORALES LABORATORYCLIA [id number] [address] [place] [facility] MCH (RBC) [Entitic mass] 32.1 pg Normal 26.0-34.0 [facility] Comment on above: Order Comment: Speci men Type: BLOOD SPECIMENOrdering Facility: [facility] Address: [address] [place] [address] Performed By: #### 5 8410-2 ####MORALES LABORATORYCLIA [id number] [address] MCHC (RBC) [Mass/Vol] 33.9 g/dL Normal 30.5-36.0 [facility] Comment on above: Order Comment: Speci men Type: BLOOD SPECIMENOrdering Facility: [facility] Address: [address] [place] [address] Performed By: #### 5 8410-2 ####MORALES LABORATORYCLIA [id number] [address] [place] MCV (RBC) [Entitic vol] 94.8 fL Normal 80.0-100.0 [facility] Comment on above: Order Comment: Speci men Type: BLOOD SPECIMENOrdering Facility: [facility] Address: [address] [place] [address] Performed By: #### 5 8410-2 ####MORALES LABORATORYCLIA [id number] [address] Nucleated RBC (Bld) [#/Vol] 10*3/uL Normal <0.01 [facility] Comment on above: Order Comment: Speci men Type: BLOOD SPECIMENOrdering Facility: [facility] Address: [address] [place] [address] Performed By: #### 5 8410-2 ####MORALES LABORATORYCLIA [id number] [address] [place] Platelet mean volume (Bld) [Entitic vol] 9.0 fL Normal 9.0-12.7 [facility] Comment on above: Order Comment: Speci men Type: BLOOD SPECIMENOrdering Facility: [facility] Address: [address] [place] [address] Performed By: #### 5 8410-2 ####MORALES LABORATORYCLIA [id number] [address] [place] Platelets (Bld) [#/Vol] 288 10*3/uL Normal 150-400 [facility] Comment on above: Order Comment: Speci men Type: BLOOD SPECIMENOrdering Facility: [facility] Address: [address] [place] [address] Performed By: #### 5 8410-2 ####MORALES LABORATORYCLIA [id number] [address] STATES OF [facility] RBC (Bld) [#/Vol] 3.64 10*6/uL Low 3.90-5.20 [facility] Comment on above: Order Comment: Speci men Type: BLOOD SPECIMENOrdering Facility: [facility] Address: [facility] [place] [address] Performed By: #### 5 8410-2 ####MORALES LABORATORYCLIA [id number] [address] STATES OF [facility] WBC (Bld) [#/Vol] 7.97 10*3/uL Normal 3.70-11.00 [facility] Comment on above: Order Comment: Speci men Type: BLOOD SPECIMENOrdering Facility: [facility] Address: [address] [place] [address] Performed By: #### 5 8410-2 ####MORALES LABORATORYCLIA [id number] [place] [address] [place] Magnesium SerPl-mCncon 12-28 Magnesium [Mass/Vol] 2.3 mg/dL Normal 1.7-2.3 [facility] Comment on above: Order Comment: Speci men Type: BLOOD SPECIMEN [facility] Address: [facility] [place] [address] Performed By: #### 1 9123-9, 52641-9 #### [facility] CLIA [id number] [address] [place] [address] [place] Basic metabolic 2000 panelon 12-28-2023 Anion gap [Moles/Vol] 10 mmol/L Normal 9-18 [facility] Comment on above: Order Comment: Speci men Type: BLOOD SPECIMENOrdering Facility: [facility] Address: [facility] [place] [address] Performed By: #### 1 9123-9, 81680-5 ####MORALES LABORATORYCLIA [id number] [place] [address] [place] Calcium [Mass/Vol] 9.3 mg/dL Normal 8.5-10.2 [facility] Comment on above: Order Comment: Speci men Type: BLOOD SPECIMENOrdering Facility: [facility] Address: [address] [place] [address] Performed By: #### 1 9123-9, 22635-3 ####MORALES LABORATORYCLIA [id number] [place] [address] [place] Chloride [Moles/Vol] 102 mmol/L Normal 97-105 [facility] Comment on above: Order Comment: Speci men Type: BLOOD SPECIMENOrdering Facility: [facility] Address: [address] [place] [address] Performed By: #### 1 9123-9, 31696-5 ####MORALES LABORATORYCLIA [id number] [place] [address] [place] CO2 [Moles/Vol] 26 mmol/L Normal 22-30 [facility] Comment on above: Order Comment: Speci men Type: BLOOD SPECIMENOrdering Facility: [facility] Address: [address] [place] [address] Performed By: #### 1 9123-9, 13998-6 ####MORALES LABORATORYCLIA [id number] [place] [address] [place] Creatinine [Mass/Vol] 0.77 mg/dL Normal 0.58-0.96 [facility] Comment on above: Order Comment: Speci men Type: BLOOD SPECIMENOrdering Facility: [facility] Address: [address] [place] [address] Performed By: #### 1 9123-9, 04901-8 ####MORALES LABORATORYCLIA [id number] [place] [address] [place] [facility] [place] Creatinine and Glomerular filtration rate.predicted panel (S/P/Bld) 77 mL/min/1.73m??? Normal >=60 [facility] Comment on above: Order Comment: Speci men Type: BLOOD SPECIMENOrdering Facility: [facility] Address: [address] [place] [address] Result Comment: Felicia mated Glomerular Filtration Rate (eGFR) is calculated using the 2020 CKD-EPI creatinine equation. This equation utilizes serum creatinine, sex, and age as parameters. The creatinine assay has traceable calibration to isotope dilution-mass spectrometry. Refer to KDIGO guidelines for clinical interpretation. In patients with unstable renal function, e.g. those with acute kidney injury, the eGFR may not accurately reflect actual GFR. Performed By: #### 1 9123-9, 00076-1 ####[facility] LABORATORYCLIA [id number] [place] [id number] [place] Glucose [Mass/Vol] 120 mg/dL High 74-99 [facility] Comment on above: Order Comment: Kristin paige Type: BLOOD SPECIMENOrdering Facility: [facility] Address: [address] [place], [place] [address] Result Comment: The [place] Diabetes Association (ADA) provides guidance for cutoff values for fasting glucose and random glucose. The ADA defines fasting as no caloric intake for at least 8 hours. Fasting plasma glucose results between 100 to 125 mg/dL indicate increased risk for diabetes (prediabetes). Fasting plasma glucose results greater than or equal to 126 mg/dL meet the criteria for diagnosis of diabetes. In the absence of unequivocal hyperglycemia, results should be confirmed by repeat testing. In a patient with classic symptoms of hyperglycemia or hyperglycemic crisis, random plasma glucose results greater than or equal to 200 mg/dL meet the criteria for diagnosis of diabetes. Reference: Standards of Medical Care in Diabetes 2016, [place] Diabetes Association. Diabetes Care. 2016.39(Suppl 1). Performed By: #### 1 9123-9, 36111-6 ####[facility]ON[facility] LABORATORYCLIA [id number] [place] [id number] [place] Potassium [Moles/Vol] 3.5 mmol/L Low 3.7-5.1 [facility] Comment on above: Order Comment: Kristin paige Type: BLOOD SPECIMENOrdering Facility: [facility] Address: [address] [place] [address] Performed By: #### 1 9123-9, 36345-7 ####[facility] LABORATORYCLIA [id number] [place] [address] [place] Sodium [Moles/Vol] 138 mmol/L Normal 136-144 [facility] Comment on above: Order Comment: Speci men Type: BLOOD SPECIMENOrdering Facility: [facility] Address: [address] [place], [place] [address] Performed By: #### 1 9123-9, 78698-4 ####MORALES LABORATORYCLIA [id number] [address] Urea nitrogen [Mass/Vol] 20 mg/dL Normal 7-21 [facility] Comment on above: Order Comment: Speci men Type: BLOOD SPECIMENOrdering Facility: [facility] Address: [address] [place] [address] Performed By: #### 1 9123-9, 94198-2 ####MORALES LABORATORYCLIA [id number] [address] CASE MANAGEMon 12-28-2023 CASE MANAGEM HNO ID: [id number] Author: ASTRID MUNSON RN Service: ? Author Type: Registered Nurse Type: Care Mgt Progress Note Filed: 12/28/2023 14:56 Note Text: CARE MANAGEMENT PROGRESS NOTE SERVICE DATE: 12/28/2023 SERVICE TIME: 8:31 AM LOS: 0 days Needs Prior to Discharge: [facility] Received an email from the patients daughter Christos,she would like [facility] in [place]. Referral placed. CM department will continue to follow for DC needs. 11:51 am- No response from [facility]. Call placed to [facility] and left a message on the VM of admissions requesting a follow up on referral. 12:43 pm- Received 2 additional SNF choices from the patients daughter- [facility] [place] and [facility] in [place]. Referrals placed. 2:53 pm- Received an Email from the patients daughter Christos and also an email stating the patients Orestes spoke with [facility] and they need all the patients medical information. Noted to Christos that we have already sent all the patients information over to [facility]. Call placed to [facility] and spoke with Judi, Judi stated she would talk with Inez who is also in admission and have her call CM back or respond in [employer]. SIGNATURE: Astrid Munson RN PATIENT NAME: Ann Marie Hill DATE: December 28, 2023 TIME: 8:31 AM PAGER/CONTACT #: [phone] Normal [facility] CBC panel Auto (Bld)on 12-27 Erythrocyte distribution width (RBC) [Ratio] 13.4 % Normal 11.5-15.0 [facility] Comment on above: Order Comment: Speci men Type: BLOOD SPECIMENOrdering Facility: [facility] Address: [address] [place] [address] Performed By: #### 5 8410-2 ####MORALES LABORATORYCLIA [id number] [address] Hematocrit (Bld) [Volume fraction] 38.6 % Normal 36.0-46.0 [facility] Comment on above: Order Comment: Speci men Type: BLOOD SPECIMENOrdering Facility: [facility] Address: [address] [place] [address] Performed By: #### 5 8410-2 ####MORALES LABORATORYCLIA [id number] [address] [place] Hemoglobin (Bld) [Mass/Vol] 12.9 g/dL Normal 11.5-15.5 [facility] Comment on above: Order Comment: Speci men Type: BLOOD SPECIMENOrdering Facility: [facility] Address: [address] [place] [address] Performed By: #### 5 8410-2 ####MORALES LABORATORYCLIA [id number] [address] [place] MCH (RBC) [Entitic mass] 31.1 pg Normal 26.0-34.0 [facility] Comment on above: Order Comment: Speci men Type: BLOOD SPECIMENOrdering Facility: [facility] Address: [address] [place] [address] Performed By: #### 5 8410-2 ####MORALES LABORATORYCLIA [id number] [address] [place] MCHC (RBC) [Mass/Vol] 33.4 g/dL Normal 30.5-36.0 [facility] Comment on above: Order Comment: Speci men Type: BLOOD SPECIMENOrdering Facility: [facility] Address: [address] [place] [address] Performed By: #### 5 8410-2 ####MORALES LABORATORYCLIA [id number] [address] [place] MCV (RBC) [Entitic vol] 93.0 fL Normal 80.0-100.0 [facility] Comment on above: Order Comment: Speci men Type: BLOOD SPECIMENOrdering Facility: [facility] Address: [address] [place] [address] Performed By: #### 5 8410-2 ####MORALES LABORATORYCLIA [id number] [address] Nucleated RBC (Bld) [#/Vol] 10*3/uL Normal <0.01 [facility] Comment on above: Order Comment: Speci men Type: BLOOD SPECIMENOrdering Facility: [facility] Address: [address] [place] [address] Performed By: #### 5 8410-2 ####MORALES LABORATORYCLIA [id number] [address] [place] Platelet mean volume (Bld) [Entitic vol] 8.8 fL Low 9.0-12.7 [facility] Comment on above: Order Comment: Speci men Type: BLOOD SPECIMENOrdering Facility: [facility] Address: [address] [place] [address] Performed By: #### 5 8410-2 ####MORALES LABORATORYCLIA [id number] [address] Platelets (Bld) [#/Vol] 287 10*3/uL Normal 150-400 [facility] Comment on above: Order Comment: Speci men Type: BLOOD SPECIMENOrdering Facility: [facility] Address: [address] [place] [address] Performed By: #### 5 8410-2 ####MORALES LABORATORYCLIA [id number] [address] [place] RBC (Bld) [#/Vol] 4.15 10*6/uL Normal 3.90-5.20 [facility] Comment on above: Order Comment: Speci men Type: BLOOD SPECIMENOrdering Facility: [facility] Address: [address] [place] [address] Performed By: #### 5 8410-2 ####MORAL[facility] LABORATORYCLIA [id number] [address] [place] WBC (Bld) [#/Vol] 9.76 10*3/uL Normal 3.70-11.00 [facility] Comment on above: Order Comment: Speci men Type: BLOOD SPECIMENOrdering Facility: [facility] Address: [address] [place] [address] [place] [id number] Performed By: #### 5 8410-2 ####MORALES LABORATORYCLIA [id number] [address] [place] Magnesium SerPl-mCncon 12-27 Magnesium [Mass/Vol] 2.0 mg/dL Normal 1.7-2.3 [facility] Comment on above: Order Comment: Speci men Type: BLOOD SPECIMENOrdering Facility: [facility] Address: [address] [place], [place] [address] Performed By: #### 1 9123-9, 17203-0 ####MORALES LABORATORYCLIA [id number] [address] OF [facility] THERAPY NTon 12-28-2023 THERAPY NT HNO ID: [id number] Author: BRINDA PHILLIPS PTA Service: Physical Therapy Author Type: Billboard Erector Type: Therapy (PT/OT/Speech/Resp) Filed: 12/28/2023 16:16 Note Text: Attestation signed by Ousmane Darling, PT at 12/28/2023 5:34 PM I reviewed and agree with the documentation corresponding to this therapy visit. SIGNATURE: Ousmane Darling, PT DATE: December 28, 2023 TIME: 5:34 PM Physical Therapy Treatment Summary SERVICE DATE: 12/28/2023 SERVICE TIME: 1535 to 1606 ROOM: [id number] PT 6 Clicks Score: 15 Total Joint Replacement Discharge Readiness: Not Applicable DISCHARGE RECOMMENDATIONS Subacute/SNF Recommended Discharge Disposition Comments: sp fall humeral fx Recommended Discharge Disposition Due to: Patient requires daily, facility-based rehabilitation from at least one discipline due to:, ADL impairment resulting in caregiver dependence, Cognitive-behavioral therapy needs, decline in functional status requiring daily skilled care, deficits affecting dominant side, ongoing intervention of multiple therapy disciplines Recommended Discharge Equipment: To Be Determined ASSESSMENT Response to Therapy Interventions: Good Participation in Activities, Requires Additional Time to Complete Activities, Pain Pt progressing with activity tolerance but poor safety awareness, balance, and mild unsteadiness during gait. Continue to rec snf to reduce risk of recurrent falls PRECAUTIONS Weight Bearing Restrictions, Sling, Bed/Chair Alarm slign on when up, can rest with sling off when sitting, AROM and AAROM to elbow, wrist, and hand. Left Upper Extremity Weight Bearing Status: NWB CURRENT HOSPITAL COURSE fall at [facility], non witnessed, humeral fracture on left UE. xay: Acute, comminuted/impacted, mildly displaced left humeral neck fracture Relevant Past Medical History: HTN and dementia HOME LIVING Patient Lives With: Facility Care ([facility] care [facility]) Assistance Available: 24-Hour PRIOR FUNCTIONAL LEVEL Required Assistance, Within Functional Limits Assistance Required With: Transportation, Shopping, Self Care, Medication Management, Meals, Cleaning, Laundry SUBJECTIVE Pt reports that she has no pain supine. Family at bedside. THERAPY DIAGNOSIS Reduced mobility-other, Decreased activities of daily living (ADL), Muscle Weakness (generalized), Unsteadiness on feet, Abnormalities of gait and mobility-other, Difficulty walking-musculoskelet al TREATMENT INTERVENTIONS Therapeutic Activity (19219), Gait Training (07101) Timed Code Treatment (minutes): 31 Skilled Treatment Time (minutes): 31 TRAINING AND EDUCATION PROVIDED Anatomy and Impact on Deficits, Bed Mobility, Benefits of In-Hospital Mobility, Discharge Planning, Expected Functional Level, Gait Pattern, Reduction of Deviations, Positioning, Pre-gait Activities, Role of Physical Therapy, Standing Balance, Transfers THERAPEUTIC SKILLS USED Activity Dosing, Cuing Verbal, Cuing Tactile, Physical Assist FUNCTIONAL STATUS Bed Mobility Supine To Sit: Additional Information, Minimal Assistance Assist at trunk, vcs for maintaining wb status Sit to Supine: Additional Information pt left sitting in chair at end of session with family supervision Scooting: Minimal Assistance, Additional Information towards EOB Transfers Sit To Stand: Minimal Assistance, Additional Information Vcs for maintaining wb status, ant weight shift Stand To Sit: Minimal Assistance, Additional Information Vcs for approach Bed to Chair Gait Minimal Assistance, Additional Information Easily distractable, difficulty maintaining straight trajectory and safety awareness with obstacles, thresholds and various surfaces Gait Device: (Hand held assist) General Deviations/Observatio ns: Loss of Balance, Narrow Base of Support, Shuffling Gait Gait Distance (feet): 65ft, 80ft, 50ft Stairs GOALS Patient will demonstrate progress to optimize functional mobility, maximize activity tolerance and endurance to maximize function upon discharge. Transfer Supine to/from Sit with: Minimal Assistance Transfer Sit to/from Stand with: Contact Guard Assistance Ambulate with: Contact Guard Assistance Distance: 50+ Device: No Device, Hand Held Assist Transfer: from all surfaces with CGA Rehab Potential: Fair Progress Toward Goals: Progressing as expected PLAN PT Frequency: 5 Times Per Week Treatment Interventions: Education, Energy Conservation Training, Joint Mobility, Strengthening, Functional Mobility Training, Balance Training, Neuromuscular Re-education, Pain Management Plan for Next Visit: Bed Mobility, Chair Transfer Training, Gait Training, Pre-gait Activities, Sit to Stand Transfers, Standing Balance, Standing Tolerance SIGNATURE: Brinda Phillips, (more content not included)... [facility] HEALTH 12-27-2023 ALLIED HEALTH HNO ID: [id number] Author: SHERICE HAYES RT(R) Service: ? Author Type: Technologist Type: Allied Health Filed: 12/26/2023 23:46 Note Text: Radiology Service Progress Note PATIENT NAME: Ann Marie Hill DATE OF SERVICE: December 26, 2023 TIME: 11:46 PM PATIENT IDENTITY VERIFICATION COMPLETED USING TWO (2) IDENTIFIERS: Name and Date of confirmed by patient verbally and Name and Date of confirmed by identification band. FALL SCREENING: Has the patient had 2 falls in the last year or 1 fall with injury or currently using an Ambulatory Assistive Device (Walker, Cane, Wheelchair, Crutches, etc.)? Inpatient: Screened on floor PATIENT GENDER DATA: Female. status: : No status: NO. PATIENT RELEVANT IMPLANT DATA REVIEWED: Not Applicable PATIENT PRESENTS WITH AN IMPLANTABLE OR ATTACHED CROSSING GATEMAN: No RADIOLOGY DEPARTMENT: Ultrasound PERIPHERAL IV DATA: Not applicable SIGNED BY: RT Carla(R) December 26, 2023 11:46 PM [facility] Bacteria Ur Culton 4 Bacteria identified Cx Nom (U) ORGANISM ID: 1 10,000 -<50,000 CFU/ml Streptococcus anginosus No susceptibility testing done. [facility] Comment on above: Performed By: #### 6 30-4 ####[facility] LABCLIA [id number] [facility] [id number] [address] [place] Basic metabolic 2000 panelon 12-27-2023 Anion gap [Moles/Vol] 12 mmol/L Normal 9-18 [facility] Comment on above: Order Comment: Speci men Type: BLOOD SPECIMENOrdering Facility: [facility] Address: [address] [place] [address] Performed By: #### 2 4321-2 ####M[facility] LABORATORYCLIA [id number] [place] [address] [place] Calcium [Mass/Vol] 9.2 mg/dL Normal 8.5-10.2 [facility] Comment on above: Order Comment: Speci men Type: BLOOD SPECIMENOrdering Facility: [facility] Address: [address] [place] [address] Performed By: #### 2 4321-2 ####[facility] LABORATORYCLIA [id number] [place] [address] [place] Chloride [Moles/Vol] 102 mmol/L Normal 97-105 [facility] Comment on above: Order Comment: Speci men Type: BLOOD SPECIMENOrdering Facility: [facility] Address: [address] [place] [address] Performed By: #### 2 4321-2 ####[facility] LABORATORYCLIA [id number] [place] [id number] [place] [facility] CO2 [Moles/Vol] 24 mmol/L Normal 22-30 [facility] Comment on above: Order Comment: Kristin paige Type: BLOOD SPECIMENOrdering Facility: [facility] Address: [address] [place] [address] Performed By: #### 2 4321-2 ####[facility] LABORATORYCLIA [id number] [address] Creatinine [Mass/Vol] 0.69 mg/dL Normal 0.58-0.96 [facility] Comment on above: Order Comment: Kristin paige Type: BLOOD SPECIMENOrdering Facility: [facility] Address: [address] [place] [address] Performed By: #### 2 4321-2 ####[facility] LABORATORYCLIA [id number] [address] Creatinine and Glomerular filtration rate.predicted panel (S/P/Bld) 87 mL/min/1.73m??? Normal >=60 [facility] Comment on above: Order Comment: Kristin paige Type: BLOOD SPECIMENOrdering Facility: [facility] Address: [address] [place] [address] Result Comment: Felicia mated Glomerular Filtration Rate (eGFR) is calculated using the 2020 CKD-EPI creatinine equation. This equation utilizes serum creatinine, sex, and age as parameters. The creatinine assay has traceable calibration to isotope dilution-mass spectrometry. Refer to KDIGO guidelines for clinical interpretation. In patients with unstable renal function, e.g. those with acute kidney injury, the eGFR may not accurately reflect actual GFR. Performed By: #### 2 4321-2 ####MORAL[facility] LABORATORYCLIA [id number] [place] [id number] [place] [facility] Glucose [Mass/Vol] 131 mg/dL High 74-99 [facility] Comment on above: Order Comment: Kristin paige Type: BLOOD SPECIMENOrdering Facility: [facility] Address: [address] [place] [address] Result Comment: The [place] Diabetes Association (ADA) provides guidance for cutoff values for fasting glucose and random glucose. The ADA defines fasting as no caloric intake for at least 8 hours. Fasting plasma glucose results between 100 to 125 mg/dL indicate increased risk for diabetes (prediabetes). Fasting plasma glucose results greater than or equal to 126 mg/dL meet the criteria for diagnosis of diabetes. In the absence of unequivocal hyperglycemia, results should be confirmed by repeat testing. In a patient with classic symptoms of hyperglycemia or hyperglycemic crisis, random plasma glucose results greater than or equal to 200 mg/dL meet the criteria for diagnosis of diabetes. Reference: Standards of Medical Care in Diabetes 2016, [place] [employer]. Diabetes Care. 2016.39(Suppl 1). Performed By: #### 2 4321-2 ####MORALES LABORATORYCLIA [id number] [place] [address] [place] Potassium [Moles/Vol] 3.6 mmol/L Low 3.7-5.1 [facility] Comment on above: Order Comment: Kristin paige Type: BLOOD SPECIMENOrdering Facility: [facility] Address: [address] [place] [address] Performed By: #### 2 4321-2 ####MORALES LABORATORYCLIA [id number] [place] [address] [place] Sodium [Moles/Vol] 138 mmol/L Normal 136-144 [facility] Comment on above: Order Comment: Kristin paige Type: BLOOD SPECIMENOrdering Facility: [facility] Address: [address] [place] [address] Performed By: #### 2 4321-2 ####MORALES LABORATORYCLIA [id number] [place] [address] [place] Urea nitrogen [Mass/Vol] 18 mg/dL Normal 7-21 [facility] Comment on above: Order Comment: Kristin paige Type: BLOOD SPECIMENOrdering Facility: [facility] Address: [address] [place] [address] Performed By: #### 2 4321-2 ####MORALES LABORATORYCLIA [id number] [place] [address] [place] CASE MANAGEMon 12-27-2023 CASE MANAGEM HNO ID: [id number] Author: ASTRID MUNSON RN Service: ? Author Type: Registered Nurse Type: Care Mgt Progress Note Filed: 12/27/2023 14:54 Note Text: CARE MANAGEMENT PROGRESS NOTE SERVICE DATE: 12/27/2023 SERVICE TIME: 11:09 AM LOS: 0 days Needs Prior to Discharge: Accepting Facility;Facility or Agency Choices;Precertificat ion;OT/PT Evaluation [place] of Choice Given: Yes Level of Care Discussed: Long-Term Facility Financial Disclosure Provided: Yes Provider List: Long-Term Facility Provider list within the patient's requested geographic area shared with the patient/family: Yes within: 25 miles of zip code: [address] Quality and resource use metrics shared with the patient that are relevant to the patient's goals of care and treatment preferences:: Yes PT-SNF. Called the patients son Orestes, no answer, per conversation with Orestes on 12/25, he stated if CM is unable to reach him to contact his son Morgan. Call placed to Morgan. Discussed PT recommendations with Morgan. Emailed SNF list to Morgan. CM department will continue to follow for DC needs. 12:55 pm- Received an Email from the patients daughter Christos that she would like the patient to go to [facility]. Call placed to Morgan,he agreed with referral. Referral placed to [facility]. 2:52 pm- [facility] is unable to accept. Updated Morgan, he stated his sister Christos has the list and she will be making the SNF choices; but their dad will have the final say. Morgan stated he will update Christos and have her contact CM with her SNF choices. SIGNATURE: Astrid Munson RN PATIENT NAME: Ann Marie Hill DATE: December 27, 2023 TIME: 11:09 AM PAGER/CONTACT #: [phone] Normal [facility] CBC panel Auto (Bld)on 12-26 Erythrocyte distribution width (RBC) [Ratio] 13.6 % Normal 11.5-15.0 [facility] Comment on above: Order Comment: Speci men Type: BLOOD SPECIMENOrdering Facility: [facility] Address: [address] [place] [address] Performed By: #### 5 8410-2 ####MORALES LABORATORYCLIA [id number] [address] Hematocrit (Bld) [Volume fraction] 40.0 % Normal 36.0-46.0 [facility] Comment on above: Order Comment: Speci men Type: BLOOD SPECIMENOrdering Facility: [facility] Address: [address] [place] [address] Performed By: #### 5 8410-2 ####MORALES LABORATORYCLIA [id number] [address] OF [facility] Hemoglobin (Bld) [Mass/Vol] 13.4 g/dL Normal 11.5-15.5 [facility] Comment on above: Order Comment: Speci men Type: BLOOD SPECIMENOrdering Facility: [facility] Address: [address] [place] [address] Performed By: #### 5 8410-2 ####MORALES LABORATORYCLIA [id number] [address] MCH (RBC) [Entitic mass] 31.8 pg Normal 26.0-34.0 [facility] Comment on above: Order Comment: Speci men Type: BLOOD SPECIMENOrdering Facility: [facility] Address: [address] [place] [address] Performed By: #### 5 8410-2 ####MORALES LABORATORYCLIA [id number] [address] MCHC (RBC) [Mass/Vol] 33.5 g/dL Normal 30.5-36.0 [facility] Comment on above: Order Comment: Speci men Type: BLOOD SPECIMENOrdering Facility: [facility] Address: [address] [place] [address] Performed By: #### 5 8410-2 ####MORALES LABORATORYCLIA [id number] [address] MCV (RBC) [Entitic vol] 94.8 fL Normal 80.0-100.0 [facility] Comment on above: Order Comment: Speci men Type: BLOOD SPECIMENOrdering Facility: [facility] Address: [address] [place] [address] Performed By: #### 5 8410-2 ####MORALES LABORATORYCLIA [id number] [place] [id number] [place] Nucleated RBC (Bld) [#/Vol] 10*3/uL Normal <0.01 [facility] Comment on above: Order Comment: Speci men Type: BLOOD SPECIMENOrdering Facility: [facility] Address: [address] [place] [address] Performed By: #### 5 8410-2 ####MORALES LABORATORYCLIA [id number] [place] [address] [place] Platelet mean volume (Bld) [Entitic vol] 9.0 fL Normal 9.0-12.7 [facility] Comment on above: Order Comment: Speci men Type: BLOOD SPECIMENOrdering Facility: [facility] Address: [address] [place] [address] Performed By: #### 5 8410-2 ####MORALES LABORATORYCLIA [id number] [place] [address] [place] Platelets (Bld) [#/Vol] 288 10*3/uL Normal 150-400 [facility] Comment on above: Order Comment: Speci men Type: BLOOD SPECIMENOrdering Facility: [facility] Address: [address] [place] [address] Performed By: #### 5 8410-2 ####MORALES LABORATORYCLIA [id number] [place] [address] [place] RBC (Bld) [#/Vol] 4.22 10*6/uL Normal 3.90-5.20 [facility] Comment on above: Order Comment: Speci men Type: BLOOD SPECIMENOrdering Facility: [facility] Address: [address] [place] [address] Performed By: #### 5 8410-2 ####MORALES LABORATORYCLIA [id number] [address] [place] WBC (Bld) [#/Vol] 9.91 10*3/uL Normal 3.70-11.00 [facility] Comment on above: Order Comment: Speci men Type: BLOOD SPECIMENOrdering Facility: [facility] Address: [address] [place] [id number] Performed By: #### 5 8410-2 ####MORALES LABORATORYCLIA [id number] [place] [id number] [place] CONSULTon 12-27-2023 CONSULT HNO ID: [id number] Author: LUDY MCKINNEY MD Service: Orthopaedic Surgery Author Type: Physician Type: Consults Filed: 12/26/2023 23:25 Note Text: ORTHO ATTENDING CONSULT 83 yo female with dementia had a fall at assisted living with subsequent limited use left arm. Shed enies pain currently. Her daughter at bedside says she has pain to touch the shoulder lue. They deny any other limiting or notable injuries. PAST MEDICAL HISTORY Diagnosis Date Alzheimer disease (HCC) HTN (hypertension) Hyperlipidemia PAST SURGICAL HISTORY Procedure Laterality Date REMOVAL GALLBLADDER REMV CATARACT EXTRACAP,INSERT LENS Bilateral SOCIAL HX Denies alcohol, tobacco, illicits Lives in assisted living ALLERGIES YULI inhibitors, cipro, PCN, sulfa HOME MEDS - loratadine, phosphatidylserine, Kcl, B12, C, hydroxyzine, amlodipine, Vit E, desvenlafaxine, coQ10, rosuvastatin, carvedilol, asa, D3 PE NAD A and O x1 Pleasant and coopreative 136/64 84 20 97.4 95% BLE No swelling or deformity No TTP Intact ROM ankle knee and hip without pain LT grossly intact RUE No swelling or deformity No TTP Intact ROM shoulder elbow wrist and hand without pain LT grossly intact RP faint LUE + swelling at shoulder No TTP elbow wrist and hand Motion intact fingers wrist and elbow, shoulder motion not tested LT grossly intact RP faint Xrays/CT chest - comminuted proximal humerus fracture with located GHJ A/P L proximal humerus fracture - I talked with the patient and her daughter at bedside about this fracture. We talked about typical treatment with no surgery but protection in a sling, limites use and then rehab after 2-3 weeks to increase ROM. There is usually healing, limited pain and limited use not often reaching above shoulder level. - She can be OOB c WBAT BLE and RUE. - She should be in her sling when up and about. It is ok to have the sling off at rest with her arm in her lap or at her side. - She should have AROM and AAROM left elbow wrist and hand. - She should have FU for recheck in 10-14 days for recheck as OP. Call [phone] for appt. [facility] CONSULT PROGon 12-27-2023 CONSULT PROG HNO ID: [id number] Author: ARAMIS NASCIMENTO MD Service: Gynecology Author Type: Physician Type: Consult Progress Note Filed: 12/27/2023 12:38 Note Text: Met with patient (daughter AND son in room as well). Did witness toileting with consent- no apparent prolapse noted at introitus Discussed US- thin EM @2mm, ?possible 1cm fluid in EM. This was from transabdominal scan (not TVUS as requested)- my personal review of images unclear as to true extent of fluid in EM . Discussed with them would not base evaluation recs (ie pipelle) until a TVUS done to assess EM. Daughter states does NOT want a pessary replaced for her mom- discussed with them based on notes form [facility] HISTORICAL SITE GUIDE, without pessary they may be dealing with cervix prolapsing through introitus as well as significant cystocele (which could lead to retention that could lead to urosepsis). Daughter states that >10y ago her mom would walk around AND complain that something is faling out . States even with the pessary in, does the exact same thing as well as she notes mom goes to doctor every month for a bladder infection: I recommend evaluation with UROGYN for further management as well as did review with them briefly colpocleisis AND need for hold of DNR if opting for a surgical procedure. HISTORICAL SITE GUIDE will follow peripherally while in house for now. Thank you for allowing me to be involved in the car of the sweet patient. POC discussed with pt/family (sone AND daughter in room), [place] [id number] I spent a total of 35 minutes on the date of the service which included preparing to see the patient, [id number] patient care, completing clinical documentation, performing a medically appropriate examination, counseling and educating the patient/family/caregi karin, and independently interpreting results (not separately reported). [facility] THERAPY NTon 12-27-2023 THERAPY NT HNO ID: [id number] Author: DANITA CARTER OT/Jojo Service: Occupational Therapy Author Type: Occupational Therapist Type: Therapy (PT/OT/Speech/Resp) Filed: 12/27/2023 15:30 Note Text: Summary: OT Evaluation Occupational Therapy Evaluation Summary SERVICE DATE: 12/27/2023 SERVICE TIME: 1420 to 1458 ROOM: [id number] OT 6 Clicks Score: 15 DISCHARGE RECOMMENDATIONS Subacute/SNF Recommended Discharge Disposition Comments: to maximize safety and independence with ADLs, functional mobility and transfer s/p L humerus fx Recommended Discharge Disposition Due to: Patient requires daily, facility-based rehabilitation from at least one discipline due to:, ADL impairment resulting in caregiver dependence, decline in functional status requiring daily skilled care, deficits affecting non-dominant side Anticipated Discharge Needs: Physical Assist at Home, Supervision at Home Physical Assist at Home for: Cleaning, Laundry, Meals, Medication Management, Safety, Self Care, Shopping, Transportation, Finances, Transfers, Ambulation (currently recommending SNF) Supervision at Home due to: Impaired cognition, Decreased safety awareness (currently recommending SNF) Recommended Discharge Equipment: To Be Determined ASSESSMENT Response to Therapy Interventions: Cognitive Deficits, Good Participation in Activities, Pain, Needs Frequent Redirection or Reinstruction, Requires Additional Time to Complete Activities Pt is oriented to name only; pts family states this is her cognitive baseline. Pt had difficulty identifying her dtr. Pleasant and cooperative throughout. Able to follow simple 1 and 2 step commands with repitition and cueing. Painful LUE; pt does not recall fall or fx. Pt currently requires mostly MIN-MOD A for all self cares, functional mobility and transfers at this time PRECAUTIONS Weight Bearing Restrictions, Sling, Bed/Chair Alarm slign on when up, can rest with sling off when sitting, AROM and AAROM to elbow, wrist, and hand. Left Upper Extremity Weight Bearing Status: NWB (in sling when up) CURRENT HOSPITAL COURSE fall at AL, non witnessed, humeral fracture on left UE. xay: Acute, comminuted/impacted, mildly displaced left humeral neck fracture Relevant Past Medical History: HTN and dementia HOME LIVING Patient Lives With: Facility Care ([facility] memory care [facility]) Assistance Available: 24-Hour PRIOR FUNCTIONAL LEVEL Required Assistance, Within Functional Limits Assistance Required With: Transportation, Shopping, Self Care, Medication Management, Meals, Cleaning, Laundry Baseline Cognition: Confused, Forgetful, Difficulty recognizing people and places, Requires 24/7 supervision, Requires intermittent cues (Oriented to self only. All obtained from pt's dtr) SUBJECTIVE RN cleared to work with pt; pt agreeable COGNITION Orientation Deficits: Confused, Not oriented to Place, Not oriented to Time, Not oriented to Situation (Oriented to name only, not ) Responsiveness: Awake Follows Commands: 1-step Commands, 2-step Commands, With Repetition, Cueing Needed Cueing to Follow Commands: Minimum Memory Deficits: Short Term, [place] Supervisor, Recall of Recent Events, Recall of Precautions Executive Function Deficits: Insight to Deficits THERAPY DIAGNOSIS Reduced mobility-other, Decreased activities of daily living (ADL) TREATMENT INTERVENTIONS Evaluation, Self Chcf Management (92329) Timed Code Treatment (minutes): 23 Skilled Treatment Time (minutes): 38 TRAINING AND EDUCATION PROVIDED Bed Mobility, Benefits of In-Hospital Mobility, Cognitive Skills, Discharge Planning, Edema Management, Functional Mobility Involving ADLs, Insight into Deficits, Grooming Tasks, Orientation, Positioning, Precautions/Restricti ons, Role of Occupational Therapy, Safety/Judgment, Sitting Balance to Improve [place] with ADLs/Self-Care, Standing Balance to [place] with ADLs/Self-Care, Transfer - Sit to Stand, Transfer - Toilet/Commode -Additional time spent educating pt's dtr Genna Parra re: d/c planning, OT POC. THERAPEUTIC SKILLS USED Activity Dosing, Cues for Sequencing/Proper Technique for Activity, Cuing Tactile, Cuing Verbal, Cuing Visual, Facilitation of Joint Range of Motion, Movement Facilitation, Muscle Activation Facilitation, Physical Assist, Repetitive Task Learning, Therapeutic Use of Self FUNCTIONAL STATUS Activities of Daily Living Assist Level Additional Information Feeding Set Up, Additional Information per pt's family she was able to self feed today at bed level using RUE Grooming Moderate Assistance, Additional Information Pt was able to wash hands using sanitizing wipe seated EOB with cues for thoroughness. Per clinical judgement, anticipate Mod A overall, especial (more content not included)... Normal [facility] THERAPY NT HNO ID: [id number] Author: ELLEN BRYANT, PT, DPT Service: Physical Therapy Author Type: Physical Therapist Type: Therapy (PT/OT/Speech/Resp) Filed: 12/27/2023 11:23 Note Text: Summary: PT evaluation Physical Therapy Evaluation Summary SERVICE DATE: 12/27/2023 SERVICE TIME: 1024 to 1058 ROOM: [place] [address] PT 6 Clicks Score: 12 DISCHARGE RECOMMENDATIONS Subacute/SNF Recommended Discharge Disposition Comments: s/p fall and humeral facture Recommended Discharge Disposition Due to: Patient requires daily, facility-based rehabilitation from at least one discipline due to:, ADL impairment resulting in caregiver dependence, Cognitive-behavioral therapy needs, decline in functional status requiring daily skilled care, deficits affecting dominant side, ongoing intervention of multiple therapy disciplines Recommended Discharge Equipment: To Be Determined ASSESSMENT Response to Therapy Interventions: Good Participation in Activities, Requires Additional Time to Complete Activities, Pain Pt was able to follow simple 1 step commands with moderate level cues. Pain does limit her mobility and she requries mod to min assist for mobility. Does have LObB with ambulation today with PT. A AND O x 1 to name only. Pt's who is her POA had a hip fracture with replacement and is in a hospital [facility] and they are looking to be placed together at d/c. PRECAUTIONS Weight Bearing Restrictions, Sling, Bed/Chair Alarm slign on when up, can rest with sling off when sitting, AROM and AAROM to elbow, wrist, and hand. Left Upper Extremity Weight Bearing Status: NWB (in sling when up) CURRENT HOSPITAL COURSE fall at AL, non witnessed, humeral fracture on left UE. xay: Acute, comminuted/impacted, mildly displaced left humeral neck fracture Relevant Past Medical History: HTN and dementia HOME LIVING Patient Lives With: Facility Care Assistance Available: 24-Hour PRIOR FUNCTIONAL LEVEL Required Assistance, Within Functional Limits Assistance Required With: Transportation, Shopping, Self Care, Medication Management, Meals, Cleaning, Laundry SUBJECTIVE Pt reports that she has no pain supine. Family at bedside. THERAPY DIAGNOSIS Reduced mobility-other, Decreased activities of daily living (ADL), Muscle Weakness (generalized), Unsteadiness on feet, Abnormalities of gait and mobility-other, Difficulty walking-musculoskelet al TREATMENT INTERVENTIONS Evaluation, Therapeutic Activity (13221) Timed Code Treatment (minutes): 19 Skilled Treatment Time (minutes): 19 TRAINING AND EDUCATION PROVIDED Anatomy and Impact on Deficits, Bed Mobility, Benefits of In-Hospital Mobility, Discharge Planning, Expected Functional Level, Gait Pattern, Reduction of Deviations, Positioning, Pre-gait Activities, Role of Physical Therapy, Standing Balance, Transfers THERAPEUTIC SKILLS USED Activity Dosing, Cuing Verbal, Cuing Tactile, Physical Assist (sling education to family) FUNCTIONAL STATUS Bed Mobility Supine To Sit: Moderate Assistance, Additional Information to elevate trunk, pt is able to negotiate BLE towards EOB, but pain limits her ability to elevate trunk Sit to Supine: Additional Information pt left sitting in chair at end of session with family supervision Scooting: Moderate Assistance, Additional Information towards EOB Transfers Sit To Stand: Moderate Assistance Stand To Sit: Minimal Assistance Bed to Chair Gait Minimal Assistance, Additional Information when retroambulating, pt had LOB and when standing to look at a pateint in the hallway, pt had a LOB Gait Device: Hand Held Assist General Deviations/Observatio ns: Loss of Balance, Narrow Base of Support, Shuffling Gait Gait Distance (feet): 70 feet One LOB when retroambulating and static standing looking at pt, Gb used for safety Stairs ROM ROM Limitation Comments: left wrist and hand are WFL, able to supintate and promate elbow, decreased elbow flexion and extension secondary to pain, did not test left shoulder secondary to non WB and humeral fracture. Right UE and BLE are WFL STRENGTH Strength Limitation Comments: right UE is 5/5, BLE are 5/5, left wrist and hand are 4/5, elbow and shoulder strength are not tested secondary to pain BALANCE Static Sitting Balance: Normal Dynamic Sitting Balance: Normal Static Standing Balance: Fair Dynamic Standing Balance: Fair (when ambulating, did have LOB) ACTIVITY TOLERANCE Standing Activity: with ambulation Standing Activity Tolerance (in minutes): 4 GOALS Patient will demonstrate progress to optimize functional mobility, maximize activity tolerance and endurance to maximize function upon discharge. Transfer Supine to/from Sit with: Minimal Assistance Transfer Sit to/from Stand (more content not included)... [facility] FEMALE PELV TRANSABD COMP LETEon 12-27-2023 FEMALE PELV TRANSABD COMPLETE * * *Final Report* * * DATE OF EXAM: Dec 26 2023 11:50PM MDU 1065 - US FEMALE PELV TRANSABD COMPLETE / PROCEDURE REASON: Other * * * * Physician Interpretation * * * * EXAMINATION: TRANSABDOMINAL FEMALE PELVIC ULTRASOUND CLINICAL HISTORY: Postmenopausal bleeding TECHNIQUE: Sonography of the pelvis was performed by transabdominal techniques. Images were obtained and stored in a permanent archive. MQ: [id number] COMPARISON: CT scans of 12/25/2023 RESULT: Uterus: -Size: 4.8 x 1.9 x 4.2 cm -Orientation: Anteverted -Endometrial echo complex: Evaluation of the endometrium was adequate. Fluid within the endometrium of 1 cm AP diameter. The endometrial echo complex measured 0.2 cm. -Cervix: Unremarkable. -Adenomyosis assessment: There are no sonographic findings of adenomyosis. -Fibroids: There are no fibroids. The right and left ovary are not visualized with the transabdominal probe. Free Fluid: No abnormal free fluid is present. No evidence of pathologic adnexal mass. The ovaries appear normal in size on recent CT scans of 12/25/2023 IMPRESSION: Fluid within the endometrium as described. The endometrium is 0.2 cm. Ovaries are not visualized. No evidence of free fluid or pathologic adnexal mass Reading Professor: JEANETTE Transcribe Date/Time: Dec 27 2023 7:52A Dictated by : MYKEL LEDBETTER MD This examination was interpreted and the report reviewed and electronically signed by: MYKEL LEDBETTER MD on Dec 27 2023 7:55AM EST [id number] N [facility] CASE MGT INIT Luis 2023 CASE MGT INIT STEFANO HNO ID: [id number] Author: ASTRID MUNSON RN Service: ? Author Type: Registered Nurse Type: Care Mgt Initial Assessment Filed: 12/26/2023 11:11 Note Text: CARE MANAGEMENT: ASSESSMENT AND DISCHARGE PLAN SERVICE DATE: December 26, 2023 SERVICE TIME: 11:07 AM PCP: Festus Grimes MD Primary Contact: Extended Emergency Contact Information Primary Emergency Contact: Orestes Hill Normal Mobile Relation: Spouse Secondary Emergency Contact: Stephany Carlos Mobile Relation: Son Admission Status: Observation Insurance Provider: [facility] MEDICARE PPO Discharge Planning requested by: Per Department Practice Potential Transition Plans To Be Determined Advance Directives Current Advance Directive: Health Care Power of Multi Share Program Coordinator In Chart: Yes Up To Date and Valid: Yes Current Living Arrangements and Support Lives with: Alone Type of Residence: Assisted Living Facility Care Facility Name: [facility] Support: Children, Spouse/significant other How do you manage to accomplish the following: Independent: Ambulation;Going to the bathroom Needs Assistance: Bathe/Shower;Dress Dependent: Meals/Meal Prep;Medication Management;Transporta tion to appointments/communit y Current Services/Equipment Current Post-Acute Service(s): None Discharge Planning Patient Goal(s): Less pain [place] of [place] Explained: [place] of [place] Given: No Reason Not Given: Unable to complete with this assessment - revisit Are you interested in bedside delivery of your medications? No Discharge Planning Participant(s): Spouse/significant other Patient/Family Comments: Caregiver Assessment: Caregiver is ready, willing and able to meet the patient's needs as recommended by the inter-professional team: Other: See Comment (AL) Transport at Discharge: Transportation Arrangements: To Be Determined Needs Prior to Discharge: Needs Prior to Discharge: To Be Determined;OT/PT Evaluation Post-Acute Discharge Plan: Review of the chart and spoke with the patients Orestes. The patient has a history of Dementia. Orestes states the patient is from [facility], States she ambulates independent without any devices. [facility] takes care of all her medications. Orestes stated he is currently rehabbing in a facility in [place]. Orestes states he is the POA, but we can speak with his son Morgan if needed. Ortho consult pending. PT/OT- Pending. CM department will continue to follow for DC needs. SIGNATURE: Astrid Munson RN PATIENT NAME: Ann Marie Hill DATE: December 26, 2023 TIME: 11:07 AM CONTACT #: [phone] [facility]23 [facility] CONSULTon 12-26-2023 CONSULT HNO ID: [id number] Author: ARAMIS NASCIMENTO MD Service: Gynecology Author Type: Physician Type: Consults Filed: 12/26/2023 18:17 Note Text: GYNECOLOGY CONSULTATION NOTE Patient Name: Ann Marie Hill Patient December 26, 2023 5:56 PM CONSULTING PHYSICIAN: Dr. Slaughter REASON FOR CONSULT: Vaginal discharge, pessary in HISTORY OF THE PRESENT ILLNESS: This 83 year old (hx 4 FT , 2 were vaginal breech) admitted for arm fracture (fell at [facility] care facility). Patient herself denies vaginal discharge, pain, bleeding. Her daughter, Christos (listed on POA, behind primary POA- Orestes, pt , who is currently in another healthcare facility rehab from a hip fracture) notes that there was an abnormal discharge in pt underwear yesterday, not sure if there was any blood. States her dad (pt ) had previously been applying a vaginal cream of some sort, but this likely hasn't happened in >1m due to him being rehab for hip fracture. Due to Alzheimer's, patient can not provide much useful history. Review of CareEverywhere indicates has had visits MAY/SEP 2023 for pessary checks- Christos feels she has had a pessary for >10y- can see visits back to 2018 with same provider (frustrated as she thinks surgery should be done AND would like to see specialist- asks about Dr. Winsome Holliday- reinforced with her that Dr. Holliday is an excellent UROGYN AND would be an incredible provider for her mom to see). 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 No data was found PAST MEDICAL HISTORY Diagnosis Date Alzheimer disease (HCC) HTN (hypertension) Hyperlipidemia PAST SURGICAL HISTORY Procedure Laterality Date REMOVAL GALLBLADDER REMV CATARACT EXTRACAP,INSERT LENS Bilateral No family history on file. OB History T4 L0 SAB0 IAB0 Ectopic0 Multiple0 Live Births0 Comment: 4 FT , 2 were vag breech!! Social History Tobacco Use Smoking status: Never Smokeless tobacco: Never Substance Use Topics Alcohol use: Never Drug use: Never ALLERGIES Allergen Reactions Yuli Inhibitors Unknown Ciprofloxacin Unknown Penicillins Hives Sulfa (Sulfonamide * Rash No current facility-administered medications on file prior to encounter. Current Outpatient Medications on File Prior to Encounter Medication Sig loratadine (CLARITIN) 10 mg tablet Take 10 mg by mouth once daily. PHOSPHATIDYLSERINE ORAL Take 1 capsule by mouth once daily. potassium chloride ER (KLOR-CON) 20 mEq tablet Take 40 mEq by mouth once daily. cyanocobalamin (VITAMIN B-12) 100 mcg tab Take 100 mcg by mouth once daily. Ascorbic Acid (VITAMIN C) 1,000 mg tablet Take 1,000 mg by mouth once daily. hydrOXYzine HCl (ATARAX) 25 mg tablet Take 25 mg by mouth three times a day as needed for anxiety. amLODIPine (NORVASC) 10 mg tablet Take 10 mg by mouth once daily. vitamin E, dl,tocopheryl acet, (VITAMIN E, DL, ACETATE,) 45 mg (100 unit) capsule Take 45 mg by mouth once daily. desvenlafaxine ER (PRISTIQ) 50 mg 24 hr tablet Take 50 mg by mouth once daily. coQ10, ubiquinol, 100 mg cap Take 1 [...] Take 2,000 Units by mouth once daily. PHYSICAL EXAM Blood pressure 142/77, pulse 100, temperature 36.8 ?C (98.2 ?F), temperature source Axillary, resp. rate 16, height 162.6 cm (5' 4 ), weight 76.2 kg (168 lb), SpO2 93%. gen- WD, WN, pleasant AND cooperative HEENT- NC/AT, sclera white, pupils equal lungs- clear, normal respiratory effort heart- RR, S1, S2, no td, rub, or murmur appreciated abd- soft, nontender, no masses, HSM, or hernia appreciated uterus- bimanual exam deferred; 4 disk pessary removed- slightly difficult, felt almost adherent to anterior vaginal wall- small amount of blood AND yellow discharge noted in disk SSE- placed with patient on positioning wedge, not able to clearly see cervix fully due to exam in hospital bed AND patient discomfort, no ACTIVE bleeding, appears to have moderate irritation of deep vagina AND cervix (suspect just from pessary but can not rule out uterine source)- decision made to NOT replace pessary ASSESSMENT 83 year old admitted for arm fracture. Also with POP managed with pessary. Appreciate consult. PLAN Pessary removed AND cleansed, placed in b (more content not included)... Normal [facility] HISTORY PHYSICALon 4 HISTORY PHYSICAL HNO ID: [id number] Author: ARVIN GOINS MD Service: Hospital Medicine Author Type: Physician Type: H&P Filed: 12/26/2023 00:01 Note Text: HISTORY AND PHYSICAL EXAMINATION PRIMARY CARE PHYSICIAN: Savana Prater MD HPI: 83 yo woman with hx of HTN and dementia from assisted living memory care unit presenting after recent fall with abnormal LUE movement and finding of LUE humerus fracture. Patient unable to provide history and daughter at bedside reports that she was told patient was found on the ground in her room. Unknown how long she was on the ground. Patient denies URI symptoms cough SOB chest pain abdominal symptoms. Daughter reports patient has a pessary in place. PAST MEDICAL HISTORY Diagnosis Date Alzheimer disease (HCC) HTN (hypertension) No past surgical history on file. No family history on file. Social History Tobacco Use Smoking status: Never Smokeless tobacco: Never Substance Use Topics Alcohol use: Never Drug use: Never Chlorella (Biotics), Take three capsules each day., Disp: , Rfl: PhytoMulti 60s capsules (GiveLoop), Take 2 capsules daily, with meals., Disp: , Rfl: Glycine (Pure Encapsulations), Take 1 capsule 3 times daily in divided doses between meals. (1 smjumnf=940ez), Disp: , Rfl: B-Complex Plus (Pure Encapsulations), Take 1 capsule by mouth daily with food., Disp: , Rfl: Glutathione (MobAppCreator), Use 20 pumps daily (1000mg) divided doses through out the day. (2 pumps = 100 mg Glutathione), Disp: , Rfl: desvenlafaxine ER (PRISTIQ) 50 mg 24 hr tablet, Take 50 mg by mouth once daily., Disp: , Rfl: vitamin E, dl,tocopheryl acet, (VITAMIN E, DL, ACETATE, ORAL), Take 1,000 Units by mouth once daily., Disp: , Rfl: OmegaGenics EPA-DHA 2400 (High Concentrate EPA/DHA liquid) (GiveLoop), Take one teaspoon (5 ml) 1 times daily with food, Disp: , Rfl: UT Synergy (Technorides) antibacterial, Take 1 capsule by mouth twice daily., Disp: , Rfl: 0 Neuromag ( Technorides ) 90 ct, Take 3 capsules per day or as directed by a healthcare professional., Disp: , Rfl: coQ10, ubiquinol, 100 mg cap, Take 1 capsule daily with a meal., Disp: 60 capsule, Rfl: 2 rosuvastatin (CRESTOR) 40 mg tablet, Take 40 mg by mouth once daily., Disp: , Rfl: carvedilol (COREG) 12.5 mg tablet, Take 12.5 mg by mouth twice daily., Disp: , Rfl: aspirin, enteric coated (ASPIRIN, ENTERIC COATED) 81 mg EC tablet, Take 81 mg by mouth once daily., Disp: , Rfl: cholecalciferol (VITAMIN D3) 50 mcg (2,000 unit) tablet, Take 2,000 Units by mouth once daily., Disp: , Rfl: Ascorbic Acid 1,000 mg TbER, Take by mouth., Disp: , Rfl: amLODIPine (NORVASC) 5 mg tablet, Take 1 tablet by mouth twice daily. (Patient taking differently: Take 10 mg by mouth once daily.), Disp: , Rfl: ALLERGIES Allergen Reactions Yuli Inhibitors Unknown Ciprofloxacin Unknown Penicillins Hives Sulfa (Sulfonamide * Rash REVIEW OF SYSTEMS: Review of Systems Respiratory: Negative for shortness of breath. Cardiovascular: Negative for chest pain. Gastrointestinal: Negative for abdominal pain. EXAM: Ht 162.6 cm (5' 4 ) Wt 76.2 kg (168 lb) BMI 28.84 kg/m? Body mass index is 28.84 kg/m?. Physical Exam Exam conducted with a tube depatcher present. Cardiovascular: Rate and Rhythm: Normal rate. Pulmonary: Effort: Pulmonary effort is normal. Genitourinary: Comments: Vaginal pessary in place Musculoskeletal: General: No swelling. Comments: LUE in sling Neurological: Mental Status: She is disoriented. DATA: Cat 1: BMP CBC urinalysis reviewed Cat2: Shoulder Xray reviewed: comminuted fracture see Assessment: Ms. Hill, your 83 years have been affected by Htn and dementia. You presented to the hospital with fall and LUE humerus comminuted fracture. Continue symptom control, sling, and await PT OT CM evals for placement at SNF. Tx cystitis with nitrofurantoin During daytime hours, would contact OBGYN to see if they want to keep the pessary in place or remove it. Problem list: Left humerus fracture Dementia Delirium cystitis Risk: Hospitalized for management. 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 (See Nursing Clinical Assessment For Details) The Following People Were Notified: Hospitalist/Laborist Caregiver/Provider: Dr. Slaughter at bedside See Documentation Related to: Patient Care Protocol(s) Initiated;Medications Additional Comments : Pt given scheduled tylenol for pain. virtual patient larry operator order placed. NOM notified, pt to have sitter HS for sundowning most likely. Pt begins to sundown at 1500 per daughter at bedside. This note was completed by: Davis Hidalgo RN [facility] THERAPY NT 12-26-2023 THERAPY NT HNO ID: [id number] Author: DANITA CARTER OT/Jojo Service: Occupational Therapy Author Type: Occupational Therapist Type: Therapy (PT/OT/Speech/Resp) Filed: 12/26/2023 09:36 Note Text: Summary: OT Missed Visit OCCUPATIONAL THERAPY MISSED VISIT SERVICE DATE: 12/26/2023 SERVICE TIME: 934 ROOM: [place] [address] Patient not seen due to Incomplete Orders. Awaiting ortho consult, will reattempt once completed and orders updated. SIGNATURE: Danita Carter OT/Jojo PATIENT NAME: Ann Marie Hill DATE: December 26, 2023 TIME: 9:35 AM [facility] THERAPY NT HNO ID: [id number] Author: OUSMANE DARLING PT Service: Physical Therapy Author Type: Physical Therapist Type: Therapy (PT/OT/Speech/Resp) Filed: 12/26/2023 08:54 Note Text: Summary: missed visit PHYSICAL THERAPY MISSED VISIT SERVICE DATE: 12/26/2023 SERVICE TIME: 851 ROOM: [place] [address] Patient not seen due to Incomplete Orders. Awaiting ortho consult, will reattempt once completed and orders updated. SIGNATURE: Ousmane Darling PT PATIENT NAME: Ann Marie Hill DATE: December 26, 2023 TIME: 8:53 AM [facility] ALLIED HEALTHon 12-25-2023 ALLIED HEALTH Normal [facility] CBC W Auto Differential pane l (Bld)on 12-25-2023 Basophils (Bld) [#/Vol] 10*3/uL Normal <0.11 [facility] Comment on above: Order Comment: Speci men Type: BLOOD SPECIMENOrdering Facility: [facility] Address: [address] [place] [address] Performed By: #### 5 7021-8 ####[facility] LABCLIA [id number] [place] [address] [place] Basophils/100 WBC (Bld) 0.1 % Normal [facility] Comment on above: Order Comment: Speci men Type: BLOOD SPECIMENOrdering Facility: [facility] Address: [facility] [place] [address] Performed By: #### 5 7021-8 ####[facility] LABCLIA [id number] [place] [address] [place] Differential cell count method Nom (Bld) Auto Normal [facility] Comment on above: Order Comment: Speci men Type: BLOOD SPECIMENOrdering Facility: [facility] Address: [address] [place] [address] Performed By: #### 5 7021-8 ####[facility] LABCLIA [id number] [place] [address] [place] Eosinophils (Bld) [#/Vol] 0.03 10*3/uL Normal <0.46 [facility] Comment on above: Order Comment: Speci men Type: BLOOD SPECIMENOrdering Facility: [facility] Address: [address] [place] [address] Performed By: #### 5 7021-8 ####[facility] LABCLIA [id number] [place] [address] [facility] Eosinophils/100 WBC (Bld) 0.3 % Normal [facility] Comment on above: Order Comment: Speci men Type: BLOOD SPECIMENOrdering Facility: [facility] Address: [address] [place] [address] Performed By: #### 5 7021-8 ####[facility] LABCLIA [id number] [place] [address] [facility] Erythrocyte distribution width (RBC) [Ratio] 13.5 % Normal 11.5-15.0 [facility] Comment on above: Order Comment: Speci men Type: BLOOD SPECIMENOrdering Facility: [facility] Address: [address] [place] [address] Performed By: #### 5 7021-8 ####[facility] LABCLIA [id number] [place] [address] [place] Hematocrit (Bld) [Volume fraction] 41.0 % Normal 36.0-46.0 [facility] Comment on above: Order Comment: Speci men Type: BLOOD SPECIMENOrdering Facility: [facility] Address: [address] [place] [address] Performed By: #### 5 7021-8 ####[facility] LABCLIA [id number] [place] [address] [place] Hemoglobin (Bld) [Mass/Vol] 13.7 g/dL Normal 11.5-15.5 [facility] Comment on above: Order Comment: Speci men Type: BLOOD SPECIMENOrdering Facility: [facility] Address: [address] [place] [address] Performed By: #### 5 7021-8 ####[facility] LABCLIA [id number] [place] [address] [place] Immature granulocytes (Bld) [#/Vol] 10*3/uL Normal <0.10 [facility] Comment on above: Order Comment: Speci men Type: BLOOD SPECIMENOrdering Facility: [facility] Address: [address] [place] [address] Performed By: #### 5 7021-8 ####[facility] LABCLIA [id number] [place] [address] [facility] Immature granulocytes/100 WBC (Bld) 0.2 % Normal [facility] Comment on above: Order Comment: Speci men Type: BLOOD SPECIMENOrdering Facility: [facility] Address: [address] [place] [address] Performed By: #### 5 7021-8 ####[facility] LABCLIA [id number] [place] [address] [place] Lymphocytes (Bld) [#/Vol] 1.85 10*3/uL Normal 1.00-4.00 [facility] Comment on above: Order Comment: Speci men Type: BLOOD SPECIMENOrdering Facility: [facility] Address: [address] [place] [address] Performed By: #### 5 7021-8 ####[facility] LABCLIA [id number] [place] [id number] [facility] Lymphocytes/100 WBC (Bld) 15.8 % Normal [facility] Comment on above: Order Comment: Speci men Type: BLOOD SPECIMENOrdering Facility: [facility] Address: [address] [place] [address] Performed By: #### 5 7021-8 ####[facility] LABCLIA [id number] [place] [address] [place] MCH (RBC) [Entitic mass] 32.2 pg Normal 26.0-34.0 [facility] Comment on above: Order Comment: Speci men Type: BLOOD SPECIMENOrdering Facility: [facility] Address: [address] [place] [address] Performed By: #### 5 7021-8 ####[facility] LABCLIA [id number] [address] [place] MCHC (RBC) [Mass/Vol] 33.4 g/dL Normal 30.5-36.0 [facility] Comment on above: Order Comment: Speci men Type: BLOOD SPECIMENOrdering Facility: [facility] Address: [address] [place] [address] Performed By: #### 5 7021-8 ####[facility] LABCLIA [id number] [place] [id number] [place] MCV (RBC) [Entitic vol] 96.5 fL Normal 80.0-100.0 [facility] Comment on above: Order Comment: Speci men Type: BLOOD SPECIMENOrdering Facility: [facility] Address: [address] [place] [address] Performed By: #### 5 7021-8 ####[facility] LABCLIA [id number] [place] [id number] [facility] [place] Monocytes (Bld) [#/Vol] 0.58 10*3/uL Normal <0.87 [facility] Comment on above: Order Comment: Speci men Type: BLOOD SPECIMENOrdering Facility: [facility] Address: [address] [place] [address] Performed By: #### 5 7021-8 ####[facility] LABCLIA [id number] [facility] [place] [address] [place] Monocytes/100 WBC (Bld) 5.0 % Normal [facility] Comment on above: Order Comment: Speci men Type: BLOOD SPECIMENOrdering Facility: [facility] Address: [address] [place] [address] Performed By: #### 5 7021-8 ####[facility] LABCLIA [id number] [place] [address] [place] Neutrophils (Bld) [#/Vol] 9.22 10*3/uL High 1.45-7.50 [facility] Comment on above: Order Comment: Speci men Type: BLOOD SPECIMENOrdering Facility: [facility] Address: [address] [place] [address] Performed By: #### 5 7021-8 ####[facility] LABCLIA [id number] [place] [address] [place] Neutrophils/100 WBC (Bld) 78.6 % Normal [facility] Comment on above: Order Comment: Speci men Type: BLOOD SPECIMENOrdering Facility: [facility] Address: [address] [place] [address] Performed By: #### 5 7021-8 ####[facility] LABCLIA [id number] [place] [address] [place] Nucleated RBC (Bld) [#/Vol] Normal [facility] Comment on above: Order Comment: Speci men Type: BLOOD SPECIMENOrdering Facility: [facility] Address: [address] [place] [address] Performed By: #### 5 7021-8 ####[facility] LABCLIA [id number] [place] [address] [place] Nucleated RBC/100 WBC (Bld) [Ratio] Normal [facility] Comment on above: Order Comment: Speci men Type: BLOOD SPECIMENOrdering Facility: [facility] Address: [address] [place] [address] Performed By: #### 5 7021-8 ####[facility] LABCLIA [id number] [place] [address] [place] Platelet mean volume (Bld) [Entitic vol] 8.7 fL Low 9.0-12.7 [facility] Comment on above: Order Comment: Speci men Type: BLOOD SPECIMENOrdering Facility: [facility] Address: [address] [place] [address] Performed By: #### 5 7021-8 ####[facility] LABCLIA [id number] [place] [address] [place] Platelets (Bld) [#/Vol] 285 10*3/uL Normal 150-400 [facility] Comment on above: Order Comment: Speci men Type: BLOOD SPECIMENOrdering Facility: [facility] Address: [address] [place] [address] Performed By: #### 5 7021-8 ####[facility] LABCLIA [id number] [place] [address] [place] RBC (Bld) [#/Vol] 4.25 10*6/uL Normal 3.90-5.20 [facility] Comment on above: Order Comment: Speci men Type: BLOOD SPECIMENOrdering Facility: [facility] Address: [address] [place] [address] Performed By: #### 5 7021-8 ####[facility] LABCLIA [id number] [place] [address] [place] WBC (Bld) [#/Vol] 11.71 10*3/uL High 3.70-11.00 [facility] Comment on above: Order Comment: Speci men Type: BLOOD SPECIMENOrdering Facility: [facility] Address: [address] [place] [address] [place] [address] Performed By: #### 5 7021-8 ####[facility] LABCLIA [id number] [place] [address] [place] CK SerPl-cCncon 12-25-2023 CK [Catalytic activity/Vol] 91 U/L Normal 42-196 [facility] Comment on above: Order Comment: Speci men Type: BLOOD SPECIMENOrdering Facility: [facility] Address: [address] [id number] Performed By: #### 2 157-6, 3040-3, 89872-0 ####[facility] LABCLIA [id number] [place] [address] [facility] CNPNon 12-25-2023 CNPN Telephone (DILEEP) ANN MARIE HILL ([id number]) 1940 F Date Time Provider Department 12/25/23 ARVIN GOINS During your visit today, we recorded the following information about you: Arvin Goins MD 12/25/2023 9:53 PM Signed RQB. [place] with humerus fracture. Will pursue symptom control and placement. Dr. Mckinney made aware at 9:45 pm over phone with Dr. Goins Allergies As of Date: 12/25/2023 Noted Allergy Reaction YULI INHIBITORS 12/25/2023 16 - Unknown CIPROFLOXACIN 06/13/2019 16 - Unknown PENICILLINS 09/03/2013 4 - Hives SULFA (SULFONAMIDE ANTIBIOTICS) 06/13/2019 2 - Rash Date Reviewed: 12/25/2023 Reviewed by: Malena Sherman, RN - Fully Assessed Reason for Visit: Hospital To Hospital [[id number]] Prescriptions as of 12/25/2023 - Chlorella (Biotics) Take three capsules each day. - PhytoMulti 60s capsules (Metagenics) Take 2 capsules daily, with meals. - Glycine (Pure Encapsulations) Take 1 capsule 3 times daily in divided doses between meals. (1 gcwqcfm=333zn) - B-Complex Plus (Pure Encapsulations) Take 1 capsule by mouth daily with food. - Glutathione (MobAppCreator) Use 20 pumps daily (1000mg) divided doses through out the day. (2 pumps = 100 mg Glutathione) - desvenlafaxine ER (PRISTIQ) 50 mg 24 hr tablet Take 50 mg by mouth once daily. - vitamin E, dl,tocopheryl acet, (VITAMIN E, DL, ACETATE, ORAL) Take 1,000 Units by mouth once daily. - OmegaGenics EPA-DHA 2400 (High Concentrate EPA/DHA liquid) (GiveLoop) Take one teaspoon (5 ml) 1 times daily with food - UT Synergy (Technorides) antibacterial Take 1 capsule by mouth twice daily. - Neuromag ( Technorides ) 90 ct Take 3 capsules per [...] Take 1 tablet by mouth twice daily. Facility-Administered Medications as of 12/25/2023 - NaCl 0.9% iv flush bag - iv contrast (radiology procedure) - iv contrast (radiology procedure) Problem List As Of Date 12/25/2023 Noted Resolved ASCVD (arteriosclerotic cardiovascular disease)*07/07/2020 Hyperlipidemia [E78.5] 07/07/2020 Hypertension [I10] 07/07/2020 Late onset Alzheimer's disease with behavioral *07/07/2020 Encounter Status:Closed by ARVIN GOINS on 12/25/23 [facility] CT ABD/PEL W IVCONon 024 CT ABD/PEL W IVCON Invalid Interpretation Code [facility] CT BRAIN WO IVCONon 12-25-19 CT BRAIN WO IVCON Normal [facility] CT CERVICAL SPINE WO IVCONon 12-25-2023 CT CERVICAL SPINE WO IVCON Normal [facility] CT CHEST W IVCONon CT CHEST W IVCON Invalid Interpretation Code [facility] CT LUMBAR SPINE W RECON DATA -NBon 12-25-2023 CT LUMBAR SPINE W RECON DATA -NB Invalid Interpretation Code [facility] CT T-SPINE W RECON DATA -NBo n 12-25-2023 CT T-SPINE W RECON DATA -NB Invalid Interpretation Code [facility] Comprehensive metabolic 2000 panelon 12-25-2023 Albumin [Mass/Vol] 4.5 g/dL Normal 3.9-4.9 [facility] Comment on above: Order Comment: Speci men Type: BLOOD SPECIMENOrdering Facility: [facility] Address: [address] [place] [address] Performed By: #### 2 157-6, 3040-3, 52561-5 ####[facility] LABCLIA [id number] [place] [address] [place] ALP [Catalytic activity/Vol] 81 U/L Normal 34-123 [facility] Comment on above: Order Comment: Speci men Type: BLOOD SPECIMENOrdering Facility: [facility] Address: [address] [place] [address] Performed By: #### 2 157-6, 3040-3, 93148-8 ####[facility] LABCLIA [id number] [place] [address] [place] ALT [Catalytic activity/Vol] 35 U/L Normal 7-38 [facility] Comment on above: Order Comment: Speci men Type: BLOOD SPECIMENOrdering Facility: [facility] Address: [address] [place] [address] Performed By: #### 2 157-6, 3040-3, 86333-6 ####[facility] LABCLIA [id number] [place] [address] [place] Anion gap [Moles/Vol] 11 mmol/L Normal 9-18 [facility] Comment on above: Order Comment: Speci men Type: BLOOD SPECIMENOrdering Facility: [facility] Address: [address] [place] [address] Performed By: #### 2 157-6, 3040-3, 16588-5 ####[facility] LABCLIA [id number] [place] [address] [place] AST [Catalytic activity/Vol] 27 U/L Normal 13-35 [facility] Comment on above: Order Comment: Speci men Type: BLOOD SPECIMENOrdering Facility: [facility] Address: [address] [place] [address] Performed By: #### 2 157-6, 3040-3, 73505-9 ####[facility] LABCLIA [id number] [place] [address] [place] Bilirubin [Mass/Vol] 0.4 mg/dL Normal 0.2-1.3 [facility] Comment on above: Order Comment: Speci men Type: BLOOD SPECIMENOrdering Facility: [facility] Address: [address] [place] [address] Result Comment: Use of this assay is not recommended for patients undergoing treatment with eltrombopag due to the potential for falsely elevated results. Performed By: #### 2 157-6, 3040-3, 44648-1 ####[facility] LABCLIA [id number] [place] [address] [place] Calcium [Mass/Vol] 9.8 mg/dL Normal 8.5-10.2 [facility] Comment on above: Order Comment: Speci men Type: BLOOD SPECIMENOrdering Facility: [facility] Address: [address] [place] [address] Performed By: #### 2 157-6, 3040-3, 14512-3 ####[facility] LABCLIA [id number] [place] [address] [place] Chloride [Moles/Vol] 104 mmol/L Normal 97-105 [facility] Comment on above: Order Comment: Speci men Type: BLOOD SPECIMENOrdering Facility: [facility] Address: [address] [id number] Performed By: #### 2 157-6, 3040-3, 90271-3 ####[facility] LABCLIA [id number] [place] [address] [place] CO2 [Moles/Vol] 24 mmol/L Normal 22-30 [facility] Comment on above: Order Comment: Speci men Type: BLOOD SPECIMENOrdering Facility: [facility] Address: [address] [place], [place] [address] Performed By: #### 2 157-6, 3040-3, 39332-5 ####[facility] LABCLIA [id number] [place] [address] [place] Creatinine [Mass/Vol] 0.98 mg/dL High 0.58-0.96 [facility] Comment on above: Order Comment: Speci men Type: BLOOD SPECIMENOrdering Facility: [facility] Address: [address] [place] [address] Result Comment: Use of this assay is not recommended for patients undergoing treatment with phenindione, due to the potential for falsely depressed results. Performed By: #### 2 157-6, 3040-3, 48226-9 ####[facility] LABCLIA [id number] [place] [address] [facility] Creatinine and Glomerular filtration rate.predicted panel (S/P/Bld) 58 mL/min/1.73m??? Low >=60 [facility] Comment on above: Order Comment: Speci [facility] Type: BLOOD SPECIMENOrdering Facility: [facility] Address: [address] [place] [address] Result Comment: Felicia mated Glomerular Filtration Rate (eGFR) is calculated using the 2020 CKD-EPI creatinine equation. This equation utilizes serum creatinine, sex, and age as parameters. The creatinine assay has traceable calibration to isotope dilution-mass spectrometry. Refer to KDIGO guidelines for clinical interpretation. In patients with unstable renal function, e.g. those with acute kidney injury, the eGFR may not accurately reflect actual GFR. Performed By: #### 2 157-6, 3040-3, 72183-8 ####[facility] LABCLIA [id number] [place] [address] [place] Glucose [Mass/Vol] 216 mg/dL High 74-99 [facility] Comment on above: Order Comment: Kristin paige Type: BLOOD SPECIMENOrdering Facility: [facility] Address: [address] [place] [address] Result Comment: The [place] Diabetes [employer] (ADA) provides guidance for cutoff values for fasting glucose and random glucose. The ADA defines fasting as no caloric intake for at least 8 hours. Fasting plasma glucose results between 100 to 125 mg/dL indicate increased risk for diabetes (prediabetes).Fasting plasma glucose results greater than or equal to 126 mg/dL meet the criteria for diagnosis of diabetes. In the absence of unequivocal hyperglycemia, results should be confirmed by repeat testing. In a patient with classic symptoms of hyperglycemia or hyperglycemic crisis, random plasma glucose results greater than or equal to 200 mg/dL meet the criteria for diagnosis of diabetes.Reference: Standards of Medical Care in Diabetes 2016, [place] [employer]. Diabetes Care. 2016.39(Suppl 1). Performed By: #### 2 157-6, 3040-3, 98741-7 ####[facility] LABCLIA [id number] [place] [address] [place] Potassium [Moles/Vol] 3.5 mmol/L Low 3.7-5.1 [facility] Comment on above: Order Comment: Kristin paige Type: BLOOD SPECIMENOrdering Facility: [facility] Address: [address] [place] [address] Performed By: #### 2 157-6, 3040-3, 34208-3 ####[facility] LABCLIA [id number] [place] [address] [place] Protein [Mass/Vol] 7.9 g/dL Normal 6.3-8.0 [facility] Comment on above: Order Comment: Kristin paige Type: BLOOD SPECIMENOrdering Facility: [facility] Address: [address] [place] [address] Performed By: #### 2 157-6, 3040-3, 47651-4 ####[facility] LABCLIA [id number] [place] [address] [place] [facility] Sodium [Moles/Vol] 139 mmol/L Normal 136-144 [facility] Comment on above: Order Comment: Speci men Type: BLOOD SPECIMENOrdering Facility: [facility] Address: [address] [place] [address] Performed By: #### 2 157-6, 3040-3, 24716-9 ####[facility] LABCLIA [id number] [place] [address] [place] Urea nitrogen [Mass/Vol] 29 mg/dL High 7-21 [facility] Comment on above: Order Comment: Speci men Type: BLOOD SPECIMENOrdering Facility: [facility] Address: [address] [place] [address] Performed By: #### 2 157-6, 3040-3, 33145-5 ####[facility] LABCLIA [id number] [place] [address] [place] ED NOTEon 12-25-2023 ED NOTE Normal [facility] ED NOTE HNO ID: [id number] Author: CELINE MA, RN Service: Emergency Medicine Author Type: Registered Nurse Type: ED Notes Filed: 12/25/2023 22:00 Note Text: Nursing report called to [facility]. Normal [facility] ED NOTE Normal [facility] ED PROV NOTEon 12-25-2023 ED PROV NOTE Normal [facility] ED PROV NOTE Normal [facility] Lipase SerPl-cCncon 12-25-19 24 Lipase [Catalytic activity/Vol] 23 U/L Normal 16-61 [facility] Comment on above: Order Comment: Speci men Type: BLOOD SPECIMENOrdering Facility: [facility] Address: [address] [place], [place] [address] Performed By: #### 2 157-6, 3040-3, 37202-5 ####[facility] LABCLIA [id number] [place] [address] [facility] PT panel Coag (PPP)on 2023 INR Coag (PPP) [Relative time] 1.0 {INR} Normal 0.9-1.3 [facility] Comment on above: Order Comment: Kristin paige Type: BLOOD SPECIMENOrdering Facility: [facility] Address: [address] [place], [place] [address] Result Comment: Nicolette min K Antagonist (VKA) Therapeutic Range: INR 2 to 3 (Target INR of 2.5)Note: For patients treated with VKA drugs, such as warfarin, the [place] [employer] 2012 Guideline recommends a therapeutic INR range of 2 to 3 (target INR of 2.5). This recommendation includes high-risk patients with antiphospholipid syndrome with previous arterial or venous thromboembolism, current-generation mechanical or bioprosthetic aortic heart valve replacement.Note: Patients with mechanical aortic valve replacement and additional risk factors for thromboembolic events (atrial fibrillation, previous thromboembolism, LV dysfunction, hypercoagulable conditions) or an older generation mechanical AVR (i.e., ball in-Cage) or any mechanical MVR should have a INR therapeutic range of 2.5 to 3.5 (target INR of 3).Dianett GH, et al. Chest 2012, 141:7S-47SNishdora RA, et al. [facility] 2017, 70: 252-289 Performed By: #### 1 4979-9, 04945-4 ####[facility] LABCLIA [id number] [place] [address] [place] [facility] PT Coag (PPP) [Time] 9.9 s Normal <13.1 [facility] Comment on above: Order Comment: Kristin paige Type: BLOOD SPECIMENOrdering Facility: [facility] Address: [address] [address] Performed By: #### 1 4979-9, 20479-4 ####[facility] LABCLIA [id number] [place] [address] [place] [facility] Urinalysis complete panel (U )on 12-25-2023 Bacteria LM.HPF (Urine sed) [#/Area] Rare Abnormal None Seen [facility] Comment on above: Order Comment: Speci men Type: URINE SPECIMENOrdering Facility: [facility] Address: [address] [place] [address] Performed By: #### 2 4356-8 ####[facility] LABCLIA [id number] [place] [address] [place] [facility]ATORYCLIA [id number] [place] [address] [place] Bilirubin Ql (U) Negative Normal Negative [facility] Comment on above: Order Comment: Speci men Type: URINE SPECIMENOrdering Facility: [facility] Address: [address] [place] [address] Performed By: #### 2 4356-8 ####[facility] LABCLIA [id number] [place] [address] [place] [facility] LABORATORYCLIA [id number] [place], [place] [address] [place] [address] [place] Clarity (Unsp spec) Slightly Cloudy Abnormal Clear [facility] Comment on above: Order Comment: Speci men Type: URINE SPECIMENOrdering Facility: [facility] Address: [address] [place] [address] Performed By: #### 2 4356-8 ####[facility] LABCLIA [id number] [place] [address] [place] [facility] LABORATORYCLIA [id number] [place], [place] [address] [place] [address] [place] Color (U) Straw Normal Yellow [facility] Comment on above: Order Comment: Speci men Type: URINE SPECIMENOrdering Facility: [facility] Address: [address] [place] [address] Performed By: #### 2 4356-8 ####[facility] LABCLIA [id number] [place] [address] [place] [facility]ORYCLIA [id number] [place] [address] [place] Epithelial cells LM.HPF (Urine sed) [#/Area] Few Normal [facility] Comment on above: Order Comment: Speci men Type: URINE SPECIMENOrdering Facility: [facility] Address: [address] [place] [address] Performed By: #### 2 4356-8 ####[facility] LABCLIA [id number] [place] [address] [place] [facility]ORYCLIA [id number] [place] [address] [place] Glucose Test strip (U) [Mass/Vol] 2+ Abnormal Negative [facility] Comment on above: Order Comment: Speci men Type: URINE SPECIMENOrdering Facility: [facility] Address: [address] [place] [address] Performed By: #### 2 4356-8 ####[facility] LABCLIA [id number] [place] [address] [place] [facility]ORYCLIA [id number] [place] [address] [place] Hemoglobin Ql (U) 2+ Abnormal Negative [facility] Comment on above: Order Comment: Speci men Type: URINE SPECIMENOrdering Facility: [facility] Address: [address] [place] [address] Performed By: #### 2 4356-8 ####[facility] LABCLIA [id number] [place] [address] [place] [facility]ATORYCLIA [id number] [place] [address] [place] Ketones Ql (U) Negative Normal Negative [facility] Comment on above: Order Comment: Speci men Type: URINE SPECIMENOrdering Facility: [facility] Address: [address] [place] [address] Performed By: #### 2 4356-8 ####[facility] LABCLIA [id number] [place] [address] [facility]ORATORYCLIA [id number] [place] [address] [place] Leukocyte esterase Test strip Ql (U) 2+ Abnormal Negative [facility] Comment on above: Order Comment: Speci men Type: URINE SPECIMENOrdering Facility: [facility] Address: [address] [place] [address] Performed By: #### 2 4356-8 ####[facility] LABCLIA [id number] [place] [address] [place] [facility]ATORYCLIA [id number] [place] [address] [place] Nitrite Ql (U) Negative Normal Negative [facility] Comment on above: Order Comment: Speci men Type: URINE SPECIMENOrdering Facility: [facility] Address: [address] [place] [address] Performed By: #### 2 4356-8 ####[facility] LABCLIA [id number] [place], [place] [address] [place], [place] [address] LABORATORYCLIA [id number] [place] [address] [place] pH (U) 7.5 [pH] Normal 5.0-8.0 [facility] Comment on above: Order Comment: Speci men Type: URINE SPECIMENOrdering Facility: [facility] Address: [address] [place] [address] Performed By: #### 2 4356-8 ####[facility] LABCLIA [id number] [address] [facility] LABORATORYCLIA [id number] [place] [address] [place] Protein (U) [Mass/Vol] Trace Abnormal Negative [facility] Comment on above: Order Comment: Speci men Type: URINE SPECIMENOrdering Facility: [facility] Address: [address] [place] [address] Performed By: #### 2 4356-8 ####[facility] LABCLIA [id number] [place] [address] [facility] [place] [facility] LABORATORYCLIA [id number] [place] [address] [place] RBC LM.HPF (Urine sed) [#/Area] /[HPF] Abnormal 0-3 /HPF [facility] Comment on above: Order Comment: Speci men Type: URINE SPECIMENOrdering Facility: [facility] Address: [address] [place] [address] Performed By: #### 2 4356-8 ####[facility] LABCLIA [id number] [place] [address] [facility] LABORATORYCLIA [id number] [place] [address] STATES OF [facility] Specific gravity (U) [Rel density] 1.015 Normal 1.005-1.030 [facility] Comment on above: Order Comment: Speci men Type: URINE SPECIMENOrdering Facility: [facility] Address: [address] [place] [address] Performed By: #### 2 4356-8 ####[facility] LABCLIA [id number] [place] [address] [facility] [id number] [place] [address] [place] OF [facility] Urobilinogen Ql (U) 0.2 EU/dL Normal 0.2-1.0 EU/dL [facility] Comment on above: Order Comment: Speci men Type: URINE SPECIMENOrdering Facility: [facility] Address: [address] [place] [address] Performed By: #### 2 4356-8 ####[facility] LABCLIA [id number] [place] [id number] [facility] LABORATORYCLIA [id number] [address] STATES OF [facility] WBC LM.HPF (Urine sed) [#/Area] /[HPF] Abnormal 0-5 /HPF [facility] Comment on above: Order Comment: Speci men Type: URINE SPECIMENOrdering Facility: [facility] Address: [address] [place] [address] Performed By: #### 2 4356-8 ####[facility] LABCLIA [id number] [place] [address] [facility] LABORATORYCLIA [id number] [address] Urinalysis complete pnl Uron 12-25-2023 Urinalysis complete panel (U) Normal [facility] Comment on above: Order Comment: Speci men Type: URINE SPECIMENOrdering Facility: [facility] Address: [address] [place], [place] [address] Performed By: #### 2 4356-8 ####[facility] LABCLIA [id number] [place] [address] [place] OF [facility] LABORATORYCLIA [id number] [address] OF [place] XR ELBOW 3V AP/LAT/OTHER LTo n 12-25-2023 XR ELBOW 3V AP/LAT/OTHER LT Normal [facility] XR HUMERUS 2V AP/LAT LTon XR HUMERUS 2V AP/LAT LT Normal [facility] XR KNEE 4V AP/LAT/OBLS LTon 12-25-2023 XR KNEE 4V AP/LAT/OBLS LT Normal [facility] XR KNEE 4V AP/LAT/OBLS RTon 12-25-2023 XR KNEE 4V AP/LAT/OBLS RT Normal [facility] XR SHLDR >/=3V AP/NICA AP/OTH R LTon 12-25-2023 XR SHLDR >/=3V AP/NICA AP/OTHR LT Normal [facility] aPTT PPPon 12-25-2023 aPTT Coag (PPP) [Time] 25.6 s Normal 23.0-32.4 [facility] Comment on above: Order Comment: Speci men Type: BLOOD SPECIMENOrdering Facility: [facility] Address: [address] [place] [address] Performed By: #### 1 4979-9, 02848-2 ####[facility] LABCLIA [id number] [place] [address] [place] US.doppler Carotid arteries - bilateralon 08-25-[address], [address] [place] [address] Vascular Lab Report [facility] US CAROTID ARTERY DUPLEX BILATERAL Patient Name: ANN MARIE HILL Reading Physician: [id number] Miranda Tinoco MD, [facility] Study Date: 08/21/2023 Ordering Provider: 05831 MARY ANNE SNOW MRN/PID: [id number] Fellow: Technologist: Irasema Dooley RDCS, RVT Date of /Age: 2 1940 / 82 years Technologist 2: Gender: F Admission Status: Outpatient Location Performed: [facility] Diagnosis/ICD: Occlusion 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; Essential primary hypertension-I10 Indication: Hyperlipidemia, Dizziness, Dementia CPT Codes: 63760 Cerebrovascular Carotid Duplex scan complete CONCLUSIONS: Right [...] cm/s Right Left ICA/CCA Ratio 1.1 0.6 [id number] Miranda Tinoco MD, [facility] Final Miranda Tran M D - 08/25/2023 [facility] [address] [place] [address], [address], [place] [address] Vascular Lab Report [facility] US CAROTID ARTERY DUPLEX BILATERAL Patient Name: ANN MARIE HILL Kasie Physician: [id number] Miranda Tinoco MD, [facility] Study Date: 08/21/2023 Ordering Provider: [id number] ANDREWOSCAR GWENDOLYN MRN/PID: [id number] Fellow: Technologist: Irasema Dooley [facility], T Date of /Age: 2 1940 / 82 years Technologist 2: Gender: F Admission Status: Outpatient Location Performed: [facility] Diagnosis/ICD: Occlusion 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; Essential primary hypertension-I10 Indication: Hyperlipidemia, Dizziness, Dementia CPT Codes: 83773 Cerebrovascular Carotid Duplex scan complete CONCLUSIONS: Right [...] cm/s Right Left ICA/CCA Ratio 1.1 0.6 [id number] Miranda Tinoco MD, FACC Final [facility] Work Phone: US.doppler Carotid arteries - bilateralOrdered By: Miranda Tinoco on 08-25-2023 [facility] Work Phone: US.doppler Carotid arteries - bilateralon 08-21-2023 Radiology Study observation (narrative) [facility] Work Phone: C Urineon 07-21-2023 Bacteria identified Cx Nom (U) Microbiology PROCEDURE: Urine Culture [R1] SOURCE: U CleanCatch BODY SITE: COLLECTED DATE/TIME: 07/19/2023 15:17 EDT RECEIVED DATE/TIME: 07/19/2023 20:19 EDT START DATE/TIME: 07/19/2023 20:19 EDT FREE TEXT SOURCE: ELLEN COOK PA-C, PA-C, JENNIFER E FINAL REPORTS Final Report [] Verified Date/Time: [...] Locations R1: This test was performed at: [facility], [address] [place] [address], [address] , [place], [facility] Comment on above: Performed By: #### 2 [id number] #### [facility] [address] [place] [address] URINALYSISOrdered By: Robel Williamson on 07-19-2023 Bacteria [...] Interpretation Code Negative [facility] UA Auto SS Tarrant.plasma/[place]arrant .RBC (Bld) [Mass ratio] 0-3 /HPF Normal 0-3/HPF [...] [facility] UA Auto SS Urobilinogen Qn (U) 0.7731975 {Ham'U}/dL Normal 0.0 - 1.0 EU/dL [facility] UA Auto SS WBC Auto Ql (U) 3+ *ABN* (07/19/23 3:17 PM) Invalid Interpretation Code Negative [facility] UA Auto SS WBC casts LM.LPF (Urine sed) [#/Area] 0-3 (07/19/23 3:17 PM) Normal [facility] UA Auto SS WBC LM.HPF (Urine sed) [#/Area] /[HPF] Invalid Interpretation Code 0-5/HPF [facility] UA Auto SS Urinalysison 07-19-2023 Bacteria LM Ql (Urine sed) 3+ /HPF Abnormal Trace [facility] Comment on above: Performed By: #### 1 [id number] #### [facility] [address] [place] [address] Bilirubin Ql (U) Negative Normal Negative [facility] Comment on above: Performed By: #### 1 [id number] #### [facility] [address] [place] [address] Clarity (U) CLOUDY Abnormal Clear [facility] Comment on above: Performed By: #### 1 [id number] #### [facility] [address] [place] [address] Color (U) DARK YELLO Abnormal Yellow [facility] Comment on above: Performed By: #### 1 [id number] #### [facility] [address] [place] [address] Epithelial cells.squamous LM.HPF (Urine sed) [#/Area] 0-2 Normal 0-2 [facility] Comment on above: Performed By: #### 1 [id number] #### [facility] [address] [place] [address] Glucose Test strip (U) [Mass/Vol] Negative Normal Negative [facility] Comment on above: Performed By: #### 1 [id number] #### [facility] [address] [place] [address] Hemoglobin Ql (U) Negative Normal Negative [facility] Comment on above: Performed By: #### 1 [id number] #### [facility] [address] [place] [address] Ketones (U) [Mass/Vol] TRACE Abnormal Negative [facility] Comment on above: Performed By: #### 1 [id number] #### [facility] [address] [place] [address] Tarrant.plasma/[place] .RBC (Bld) [Mass ratio] 0-3 Normal 0-3 [facility] Comment on above: Performed By: #### 1 [id number] #### [facility] Laboratory [address] [place] [address] Nitrite Ql (U) Negative Normal Negative [facility] Comment on above: Performed By: #### 1 [id number] #### [facility] [address] [place] [address] pH (U) 5.5 [pH] Invalid Interpretation Code 5.0-9.0 [facility] Comment on above: Performed By: #### 1 [id number] #### [facility] [address] [place] [address] Protein (U) [Mass/Vol] 1+ Abnormal Negative [facility] Comment on above: Performed By: #### 1 [id number] #### [facility] [address] [place] [address] Specific gravity (U) [Rel density] 1.025 Invalid Interpretation Code 1.005-1.030 [facility] Comment on above: Performed By: #### 1 [id number] #### [facility] [address] [place] [address] Type of Urine collection method Clean Catch Normal [facility] Comment on above: Performed By: #### 1 [id number] #### [facility] [address] [place] [address] Urobilinogen Qn (U) 0.2 {Ham'U}/dL Normal 0.0-1.0 [facility] Comment on above: Performed By: #### 1 [id number] #### [facility] [address] [place] [address] WBC Auto Ql (U) 3+ Abnormal Negative [facility] Comment on above: Performed By: #### 1 [id number] #### [facility] [address] [place] [address] WBC casts LM.LPF (Urine sed) [#/Area] 0-3 Normal [facility] Comment on above: Performed By: #### 1 [id number] #### [facility] [address] [place] [address] WBC LM.HPF (Urine sed) [#/Area] /[HPF] Abnormal 0-5 [facility] Comment on above: Performed By: #### 1 [id number] #### [facility] [address] [place] [address] Office Visit (Cardiology)on 06-06-2023 Follow-up visit Diagnoses/Problems [...] Status:Hold For - Scheduling,Retrospect chema Authorization; Requested for:[id number]; Laterality : Bilateral Essential hypertension Renew: Carvedilol 12.5 MG Oral Tablet; TAKE 1 TABLET TWICE DAILY Overweight with body mass index (BMI) of 27 to 27.9 in adult Healthy Weight Tips; Status:Complete - Retrospective Authorization; Done: [id number] Some eating tips that can help you lose weight.; Status:Complete - Retrospective Authorization; Done: [id number] SocHx: Never a smoker Tobacco Use Screening; Status:Complete; Done: [id number] Patient Instructions Please bring all medicines, vitamins, [...] as needed Neuro Rudolph TABSTAKE DIRECTED. Pristiq [id number] daily Rosuvastatin Calcium 40 MG Oral TabletTAKE 1 TABLET AT BEDTIME Vitamin C 1000 MG Oral TabletTAKE 1 TABLET DAILY. Vitamin D3 25 MCG (1000 UT) Oral CapsuleTAKE 1 CAPSULE Daily Vitamin E 1000 UNIT Oral CapsuleTAKE 1 CAPSULE Daily Allergies Medication Penicillins Rash; Recorded By: Bernardo Saldivar; 08/07/2021 8:18:17 AM sulfa Rash; Recorded By: Bernardo Saldivar; 08/07/2021 8:18:17 AM Social History Problems [...] no fr (more content not included)... Normal [employer] Tobacco Screening.on 023 Adult depression screening assessment No [facility] [employer] 250 DO Work Phone: Fall risk assessment a) No falls within the last year [facility] [employer] 250 DO Work Phone: Tobacco use status CP b) No [facility] [employer] 250 DO Work Phone: CNOVon 05-19-2023 CNOV Office Visit (MEDN ) ANN MARIE HILL ([id number]) 1940 F Date Time Provider Department 05/19/23 3:30 PM CHRISTIANA MONTERO [facility] During your visit today, we recorded the [...] OmegaGenics EPA-DHA 2400 (High Concentrate EPA/DHA liquid) (GiveLoop) Take one teaspoon (5 ml) 1 times daily with food UT Synergy (Technorides) antibacterial Take 1 capsule by mouth twice daily. Brain Misael Capsules ([employer]ides) Take 2 tablets by mouth w MEALS. 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 Normal [facility] ED Note-Physicianon 05-15-20 23 ED Note-Physician [id number] 1.00CD:127 Normal [facility] Screenson 04-26-2023 Screens [id number] .00CD:127 Normal [facility] Ambulatory Visit Summaryon 0 04-25-2023 Ambulatory Visit Summary ANN MARIE HILL :1940 Visit Date:04/25/2023 Ambulatory Visit Instructions Your Diagnosis Chronic cystitis Postinfective urethral stricture in female Your Care Team Attending Physician - ELLEN COOK PA-C Primary Care Physician - Savana Prater MD This Is Your Medications List [...] mg/g Vag Crm) omega-3 polyunsaturated fatty acids ([place]-3 350 mg oral capsule) ubiquinone (Co Q-10) [...] COOK PA-C, URL When: Where: [address] [place] [place] [address] Medications What How Much When Instructions Unchanged [...] or concerns Unchanged omega-3 polyunsaturated fatty acids ([place]-3 350 mg oral capsule) By Mouth Every [...] blockage i (more content not included)... Normal [facility] Patient Educationon 04-25-20 Patient Education Obstetrics [...] these instructions at home: Medicines ? Take kgxx-fla-vdtknle and prescription medicines only as told by [...] provider. Document Revised: 05/07/2021 Document Reviewed: 05/07/2021 [employer] Patient Education ? 2022 [employer] Normal [facility] Urology Office/Clinic Noteon 04-25-2023 Urology Office/Clinic [...] provider and she was started on supplements. HISTORICAL SITE GUIDE Dr Ballesteros, started her on Estradiol 1gm again. and then we started back on the Clobetasol. She is currently using both creams as needed and husbands says it helps a lot. +C&S 02/27/23 [facility] *Tx'd w/5 day Macrobid therapy. Pt [...] Contact Information DANIEL BOYER, ELLEN Bell, URL [address] [place] [address] Additional Instructions: Patient Education Urinary Tract Infection, Adult, Uupn-zj-Yccr Documentation recorded by the scribe Di Valdez accurately reflects the services(s) I performed [...] Tab, 10 mg= 1 tab(s), Oral, Daily Ree Heights-3 350 mg oral capsule, Oral, Daily Pristiq, [...] Status Comments (more content not included)... Normal [facility] Comment on above: Result Comment: Elec tronically Signed By: ELLEN COOK PA-C\.br\Date and Time Signed: 04/25/23 12:54 EDT\.br\Electronically Co-Signed By: Di Valdezbr\Date and Time Co-Signed: 04/25/23 12:21 EDT Ambulatory Visit Summaryon 0 7-10-2023 Ambulatory Visit Summary ANN MARIE HILL :1940 Visit Date:04/17/2023 Ambulatory Visit Instructions Your Care Team Attending Physician - GENO WATTS, Kunal Heller Primary Care Physician - Savana Prater MD This Is Your Medications List [...] mg/g Vag Crm) omega-3 polyunsaturated fatty acids ([place]-3 350 mg oral capsule) ubiquinone (Co Q-10) valsartan (valsartan 80 mg Tab) vitamin E Procedures Performed Cystourethroscopy with dilation of urethral stricture (02/12/2019). What to do next Scheduled Follow-Up Appointments Monday 2:15 PM EDT With: GENO WATTS, Kunal Heller Where: [facility] Patient Educationon 08-08-20 22 Patient Education Obstetrics and Gynecology Urinary Tract [...] this condition includes: ? Antibiotic medicine. ? Kyjg-wkb-vywtbdo medicines to treat discomfort. ? Drinking enough [...] these instructions at home: Medicines ? Take aasj-gto-tvzvelc and prescription medicines only as told by [...] This in (more content not included)... Normal [facility] Urology Office/Clinic Noteon 08-08-2022 Urology Office/Clinic [...] 04/08/2023 EDT [facility] [address] [place] [address] [phone] Additional Instructions: Patient Education Urinary Tract Infection, Adult I, Alisa Sharp, personally scribed for Dr. Lora on 08/08/2022 16:17:32. . Documentation recorded by the scribe, Alisa Sharp, accurately reflects the services(s) I performed and [...] Tab, 10 mg= 1 tab(s), Oral, Daily Ree Heights-3 350 mg oral capsule, Oral, Daily Pristiq, [...] Immunizations Vaccine Date Status Comments SARS-CoV-2 mRNA (tozinameran 5y-11y) vac - Not Given Postpone due to refusal influenza virus vaccine, inactivated - Not Given Patient Refuses Normal [facility] Comment on above: Result Comment: Elec tronically Signed By: GENO WATTS, Kunal Monique\Date and Time Signed: 08/08/22 16:21 EDT\.br\Electronically Co-Signed By: Alisa Sharp MA.br\Date and Time Co-Signed: 08/08/22 16:17 EDT MG MAMM SCREEN JOSH W CADon 0 06-17-2022 MG MAMM SCREEN JOSH W CAD Patient: ANN MARIE HILL Exam Date: 06/17/2022 : 1940 Gender:F Ordering : DR SAVANA PRATER . Admission #: [id number] Family : Order #: [id number] CLICK HERE TO VIEW EXAM RADIOLOGY REPORT [...] Treatments None Family Cancers None LOCATION: [facility] BREAST COMPOSITION: Scattered areas fibroglandular density. [...] M.D. on 06/17/2022 at 15:47 Normal [facility] OCC BLD IMMUNOASSAYon 2021 OCCULT BLOOD Negative Normal NEGATIVE [facility] Comment on above: Performed By: #### O CHANDU #### [facility] [address] [place], [place] [address] Dr. Hu Carlos INSULINon 06-04-2022 Insulin 11.2 uIU/mL Normal 2.6-24.9 [facility] Comment on above: Performed By: #### I NSULIN ####[facility] [address] [place], [place] [address]CiDr. Hu Carlos T4, T3U, FTI LABCORPon 06-04 Free Thyroxine Index 2.3 Normal 1.2-4.9 [facility] Comment on above: Performed By: #### T HYLC #### [facility] [address] [place] [address] [address] Hu Carlos T3 Uptake 26 % Normal 24-39 [facility] Comment on above: Performed By: #### T HYLC #### [facility] [address] [place] [address] [address] Hu Carlos T4 [Mass/Vol] 8.8 ug/dL Normal 4.5-12.0 [facility] Comment on above: Performed By: #### T HYLC #### [facility] [address] [place] [address] [address] Hu Carlos VIT D 25-OH LABCORPon 2021 Vitamin D, 25-Hydroxy 60.5 ng/mL Normal 30.0-100.0 [facility] Comment on above: Result Comment: Nicolette min D deficiency has been defined by the [place] of Medicine and an Endocrine Society practice guideline as a level of serum 25-OH vitamin D less than 20 ng/mL (1,2). The Endocrine Society went on to further define vitamin D insufficiency as a level between 21 and 29 ng/mL (2). 1. IOM ([place] of Medicine). 2010. Dietary reference intakes for calcium and D. [place]: The National Academies Press. 2. Suzette MF, Julian [place], Fady CLEMONS, et al. Evaluation, treatment, and prevention of vitamin D deficiency: an Endocrine Society clinical practice guideline. JCEM. 2010; 96(7):1911-30. Performed By: #### V ITADLC ####[facility] [address] [place] [address]Dr. Hu Carlos CBC AUTO DIFFon 06-03-2022 BASO # 0.0 103/ul Normal 0.0-0.1 [facility] Comment on above: Performed By: #### C BC #### [facility] [address] [place] [address] [address] Hu Carlos Basophils/100 WBC (Bld) 0.6 % Normal 0.2-2.0 [facility] Comment on above: Performed By: #### C BC #### [facility] [address] [place] [address] Dr. Hu Carlos EO # 0.2 103/ul Normal 0.0-0.7 [facility] Comment on above: Performed By: #### C BC #### [facility] [address] [place] [address] Dr. Hu Carlos Eosinophils/100 WBC (Bld) 3.2 % Normal 0.9-7.0 [facility] Comment on above: Performed By: #### C BC #### [facility] [address] [place] [address] Dr. Hu Carlos Erythrocyte distribution width (RBC) [Ratio] 12.6 % Normal 11.0-15.0 [facility] Comment on above: Performed By: #### C BC #### [facility] [address] [place] [address] Dr. Hu Carlos Hematocrit (Bld) [Volume fraction] 40.0 % Normal 36.0-48.0 [facility] Comment on above: Performed By: #### C BC #### [facility] [address] [place] [address] Dr. Hu Carlos Hemoglobin (Bld) [Mass/Vol] 12.8 g/dL Normal 12.0-16.0 [facility] Comment on above: Performed By: #### C BC #### [facility] [address] [place] [address] Dr. Hu Carlos IG # 0.01 10e3/ul Normal 0.00-0.03 [facility] Comment on above: Performed By: #### C BC #### [facility] [address] [place] [address] Dr. Hu Carlos IG % 0.2 % Normal 0.0-0.5 [facility] Comment on above: Performed By: #### C BC #### [facility] [address] [place] [address] Dr. Hu Carlos LYMPH # 1.2 103/ul Normal 1.2-3.8 [facility] Comment on above: Performed By: #### C BC #### [facility] [address] [place] [address] Dr. Hu Carlos Lymphocytes/100 WBC (Bld) 22.7 % Normal 20.5-60.0 [facility] Comment on above: Performed By: #### C BC #### [facility] [address] [place] [address] Dr. Hu Carlos MANUAL DIFF REQ NO Normal [facility] Comment on above: Performed By: #### C BC #### [facility] [address] [place] [address] Dr. Hu Carlos MCH (RBC) [Entitic mass] 31.8 pg Normal 26.7-34.0 [facility] Comment on above: Performed By: #### C BC #### [facility] [address] [place] [address] Dr. Hu Carlos MCHC (RBC) [Mass/Vol] 32.0 g/dL Normal 29.9-35.2 [facility] Comment on above: Performed By: #### C BC #### [facility] [address] [place] [address] Dr. Hu Carlos MCV (RBC) [Entitic vol] 99.3 fL Critically high 81.0-99.0 [facility] Comment on above: Performed By: #### C BC #### [facility] [address] [place] [address] Dr. Hu Carlos MONO # 0.5 103/ul Normal 0.3-0.8 [facility] Comment on above: Performed By: #### C BC #### [facility] [address] [place] [address] Dr. Hu Carlos Monocytes/100 WBC (Bld) 8.8 % Normal 1.7-12.0 [facility] Comment on above: Performed By: #### C BC #### [facility] [address] [place] [address] Dr. Hu Carlos NEUT # 3.4 103/ul Normal 1.4-6.5 [facility] Comment on above: Performed By: #### C BC #### [facility] [address] [place] [address] [address] Hu Carlos Neutrophils/100 WBC (Bld) 64.5 % Normal 43.0-75.0 [facility] Comment on above: Performed By: #### C BC #### [facility] [address] [place] [address] [address] Hu Carlos Platelet mean volume (Bld) [Entitic vol] 8.8 fL Critically low 9.5-13.5 [facility] Comment on above: Performed By: #### C BC #### [facility] [address] [place] [address] [address] Hu Carlos PLT 278 103/ul Normal 150-450 [facility] Comment on above: Performed By: #### C BC #### [facility] [address] [place] [address] [address] Hu Carlos RBC 4.03 106/ul Critically low 4.20-5.40 [facility] Comment on above: Performed By: #### C BC #### [facility] [address] [place] [address] [address] Hu Carlos WBC 5.3 103/ul Normal 4.0-11.0 [facility] Comment on above: Performed By: #### C BC #### [facility] [address] [place] [address] [address] Hu Carlos GLYCOHEMOGLOBIN A1Con 2021 ADA RECOMMENDATION SEE BELOW Normal [facility] Comment on above: Result Comment: ADA RECOMMENDED LIMIT 4.0 - 6.0 ADA THERAPEUTIC TARGET < 7.0 ACTION SUGGESTED > 7.0 Performed By: #### A 1C ####[facility] [address] [place] [id number]. Hu Carlos Glucose [Mass/Vol] 123 mg/dL Normal [facility] Comment on above: Performed By: #### A 1C ####[facility] [address] [place] [id number]. Hu Carlos HbA1c (Bld) [Mass fraction] 5.9 % Normal 4.5-6.2 [facility] Comment on above: Performed By: #### A 1C ####[facility] [address] [place], [place] [address]HrDr. Hu Carlos IRONon 06-03-2022 Iron [Mass/Vol] 68.0 ug/dL Normal 50.0-170.0 [facility] Comment on above: Performed By: #### I CANDY #### [facility] [address] [place] [address] [address] Hu Carlos LIPID PROFILEon 06-03-2022 CHOL-HDL RATIO NORM SEE BELOW Normal [facility] Comment on above: Result Comment: 3.3 - 4.4 LOW RISK 4.4 - 7.1 AVERAGE RISK 7.1 - 11.0 MODERATE RISK >11.0 HIGH RISK Performed By: #### T SH, LIPID, CMP #### [facility] [address] [place] [address] [address] Hu Carlos Cholesterol [Mass/Vol] 155 mg/dL Normal <=200 [facility] Comment on above: Performed By: #### T SH, LIPID, CMP #### [facility] [address] [place] [address] [address] Hu Carlos Cholesterol in HDL [Mass/Vol] 70 mg/dL Critically high 40-60 [facility] Comment on above: Performed By: #### T SH, LIPID, CMP #### [facility] [address] [place] [address] [address] Hu Carlos Cholesterol in LDL [Mass/Vol] 73.2 mg/dL Normal [facility] Comment on above: Performed By: #### T SH, LIPID, CMP #### [facility] [address] [place] [address] [address] Hu Carlos Cholesterol.total/Chol esterol in HDL [Mass ratio] 2.2 {ratio} Normal [facility] Comment on above: Performed By: #### T SH, LIPID, CMP #### [facility] [address] [place] [address] [address] Hu Carlos HDL NORMAL > or = 60 mg/dl - LO W CARDIOVASCULAR RISK <40 mg/dl - HIGH CARDIOVASCULAR RISK Normal [facility] Comment on above: Performed By: #### T KISHOR, LIPID, CMP #### [facility] [address] [place] [address] [address] Hu Carlos LDL CALC NORMAL SEE BELOW Normal [facility] Comment on above: Result Comment: <100 mg/dl OPTIMAL 100 - 129 mg/dl NEAR OR ABOVE OPTIMAL 130 - 159 mg/dl BORDERLINE HIGH 160 - 189 mg/dl HIGH >190 mg/dl VERY HIGH Performed By: #### T SH, LIPID, CMP #### [facility] [address] [place] [address] [address] Hu Carlos Triglyceride [Mass/Vol] 59 mg/dL Normal <=150 [facility] Comment on above: Performed By: #### T KISHOR, LIPID, CMP #### [facility] [address] [place] [address] Dr. Hu Carlos VLDL CALC 11.8 mg/dL Normal [facility] Comment on above: Performed By: #### T KISHOR, LIPID, CMP #### [facility] [address] [place] [address] Dr. Hu Carlos PROF 14(COMP METB)on 022 Albumin [Mass/Vol] 3.5 g/dL Normal 3.4-5.0 [facility] Comment on above: Performed By: #### T KISHOR, LIPID, CMP #### [facility] [address] [place] [address] Dr. Hu Carlos Albumin/Globulin [Mass ratio] 1.0 {ratio} Normal [facility] Comment on above: Performed By: #### T SH, LIPID, CMP #### [facility] [address] [place] [address] Dr. Hu Carlos ALP [Catalytic activity/Vol] 73 U/L Normal 46-116 [facility] Comment on above: Performed By: #### T SH, LIPID, CMP #### [facility] [address] [place] [address] Dr. Hu Carlos ALT [Catalytic activity/Vol] 24 U/L Normal 14-59 [facility] Comment on above: Performed By: #### T SH, LIPID, CMP #### [facility] [address] [place] [address] [address] Hu Carlos Anion gap [Moles/Vol] 11.1 mmol/L Normal [facility] Comment on above: Performed By: #### T SH, LIPID, CMP #### [facility] [address] [place] [address] [address] Hu Carlos AST [Catalytic activity/Vol] 15 U/L Normal 15-37 [facility] Comment on above: Performed By: #### T SH, LIPID, CMP #### [facility] [address] [place] [address] [address] Hu Carlos Bilirubin [Mass/Vol] 0.4 mg/dL Normal 0.2-1.0 [facility] Comment on above: Performed By: #### T SH, LIPID, CMP #### [facility] [address] [place] [address] [address] Hu Carlos Calcium [Mass/Vol] 8.9 mg/dL Normal 8.5-10.1 [facility] Comment on above: Performed By: #### T SH, LIPID, CMP #### [facility] [address] [place] [address] [address] Hu Carlos Chloride [Moles/Vol] 103 mmol/L Normal 98-107 [facility] Comment on above: Performed By: #### T SH, LIPID, CMP #### [facility] [address] [place] [address] [address] Hu Carlos CO2 [Moles/Vol] 30.9 mmol/L Normal 21.0-32.0 [facility] Comment on above: Performed By: #### T SH, LIPID, CMP #### [facility] [address] [place] [address] [address] Hu Carlos Creatinine [Mass/Vol] 0.81 mg/dL Normal 0.55-1.02 [facility] Comment on above: Performed By: #### T SH, LIPID, CMP #### [facility] [address] [place] [address] [address] Hu Carlos EGFR-AF SAMMARINESE >60 Normal >=60 [facility] Comment on above: Performed By: #### T SH, LIPID, CMP #### [facility] [address] [place] [address] [address] Hu Carlos EGFR-NON AF SAMMARINESE >60 Normal >=60 [facility] Comment on above: Performed By: #### T SH, LIPID, CMP #### [facility] [address] [place] [address] [address] Hu Carlos Globulin (S) [Mass/Vol] 3.6 g/dL Normal [facility] Comment on above: Performed By: #### T SH, LIPID, CMP #### [facility] [address] [place] [address] Dr. Hu Carlos Glucose [Mass/Vol] 100 mg/dL Normal 74-106 [facility] Comment on above: Performed By: #### T SH, LIPID, CMP #### [facility] [address] [place] [address] Dr. Hu Carlos Potassium [Moles/Vol] 4.0 mmol/L Normal 3.5-5.1 [facility] Comment on above: Performed By: #### T SH, LIPID, CMP #### [facility] [address] [place] [address] Dr. Hu Carlos Protein [Mass/Vol] 7.1 g/dL Normal 6.4-8.2 [facility] Comment on above: Performed By: #### T SH, LIPID, CMP #### [facility] [address] [place] [address] Dr. Hu Carlos Sodium [Moles/Vol] 141 mmol/L Normal 136-145 [facility] Comment on above: Performed By: #### T SH, LIPID, CMP #### [facility] [address] [place] [address] Dr. Hu Carlos Urea nitrogen [Mass/Vol] 21.0 mg/dL Critically high 7.0-18.0 [facility] Comment on above: Performed By: #### T SH, LIPID, CMP #### [facility] [address] [place] [address] Dr. Hu Carlos Urea nitrogen/Creatinine [Mass ratio] 25.9 mg/mg Normal [facility] Comment on above: Performed By: #### T SH, LIPID, CMP #### [facility] [address] [place], [place] [address] Dr. Hu Carlos TSHon 06-03-2022 TSH 1.582 uIU/mL Normal 0.358-3.740 [facility] Comment on above: Performed By: #### T SH, LIPID, CMP #### [facility] [address] [place], [place] [address] Dr. Hu Carlos PHQ-2 VITALSon 05-31-2022 Fall risk assessment a) No falls within the last year [facility] [address] DO Work Phone: Tobacco use status [facility]PH[facility] b) No [facility] DO Work Phone: PHQ-2 VITALS [facility] Work Phone: Tobacco Screening.on 021 Fall risk assessment a) No falls within the last year [facility] 250 DO Work Phone: Tobacco use status [facility]PH[facility] b) No [facility] 250 DO Work Phone: VASC LAB Carotid Artery Dupl ex Ultrasounon 06-23-2020 [facility] LAB Carotid Artery Duplex Ultrasoun [address], [address] [place] [address] Vascular Lab Report Carotid Artery Duplex Ultrasound Patient Name: ANN MARIE HILL Kasie Physician: [id number] Miranda Tinoco MD, [facility] Study Date: 06/23/2020 Referring Physician: [id number] Mary Anne Snow MD MRN/PID: [id number] PCP: Savana Prater Accession/Order#: [id number] CC Report to: Date of : 1940 Technologist: Irasema Dooley RD, RVT Gender: F Technologist 2: Admission Status: Outpatient Location Performed: [facility] Diagnosis/ICD: 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 Indication: HTN, Hyperlipidemia, Mild Dementia, Overweight, PVC's Procedure/CPT: 01692 Cerebrovascular Carotid Duplex scan complete-[id number] CONCLUSIONS: Right Carotid: Findings are consistent with [...] cm/s Right Left ICA/CCA Ratio 1.0 0.9 [id number] Miranda Tinoco MD, FACC Final Normal [facility] CARDIAC STRESS/REST INJE CTIONon 09-11-2019 [facility] CARDIAC STRESS/REST INJECTION Patient Name: ANN MARIE HILL STUDY: MYOCARDIAL PERFUSION STRESS TEST WITH LEXISCAN Performing facility: [facility], [address] [place] [address], [address], [place] [address] [facility] Provider: Mary Anne Snow MD PCP: Dr. Robel PRATER Supervising provider: Yin Taylor MD, FACC INDICATION: CP HISTORY: Gender: F; Age: 78 y/o ; Height: 154.94 cm; Weight: 77.7523174 kg. High Cholesterol; HTN PVCs CP DEMENTIA Denies smoking. COMPARISON: No comparison. ACCESSION NUMBER(S): [id number]; [id number]; [id number] ORDERING CLINICIAN: MARY ANNE SNOW TECHNIQUE: ONE [...] Electronically signed by: MARY ANNE SNOW MD [facility] XR Shoulder - left 2 Views [facility] Vital Signs Date Time Vital Sign Value Performing Clinician Facility 04-24-2024 13:23-0400 Body height 157.5 cm Mayank Hanson MD Work Phone: [facility] 04-24-2024 13:23-0400 Body mass index (BMI) [Ratio] 30.73 kg/m2 Mayank Hanson MD Work Phone: [facility] 04-24-2024 13:23-0400 Body temperature 98.2 [degF] Mayank Hanson MD Work Phone: [facility] 04-24-2024 13:23-0400 Body weight 76.2 kg Mayank Hanson MD Work Phone: [facility] 02-21-2024 11:08-0400 Body height 152.4 cm Mayank Hanson MD Work Phone: [facility] 02-21-2024 11:08-0400 Body mass index (BMI) [Ratio] 32.81 kg/m2 Mayank Hanson MD Work Phone: [facility] 02-21-2024 11:08-0400 Body temperature 98.2 [degF] Mayank Hanson MD Work Phone: [facility] 02-21-2024 11:08-0400 Body weight 76.2 kg Mayank Hanson MD Work Phone: [facility] 02-20-2024 13:23-0400 Body height 157.5 cm Helio Goff ADMINISTRATIVE ACCOUNTANT.JUNIOR DATA ANALYST Work Phone: [facility] 02-20-2024 13:23-0400 Body mass index (BMI) [Ratio] 30.73 kg/m2 Helio Goff ADMINISTRATIVE ACCOUNTANT.JUNIOR DATA ANALYST Work Phone: [facility] 02-20-2024 13:23-0400 Body weight 76.2 kg Helio Goff ADMINISTRATIVE ACCOUNTANT.JUNIOR DATA ANALYST Work Phone: [facility] 02-20-2024 13:23-0400 Diastolic blood pressure 72 mm[Hg] Helio Goff ADMINISTRATIVE ACCOUNTANT.JUNIOR DATA ANALYST Work Phone: [facility] 02-20-2024 13:23-0400 Systolic blood pressure 118 mm[Hg] Helio Goff ADMINISTRATIVE ACCOUNTANT.JUNIOR DATA ANALYST Work Phone: [facility] 02-04-2024 21:25-0400 SaO2% (BldA) [Mass fraction] 99 % ARAMIS [facility] Comment on above: Order Comment: Specimen Type: ARTERIAL B LOOD SPECIMENOrdering Facility: [facility] Address: [address] [place], [place] [address] Performed By: #### A LLBG ####[facility] LABORATORYCLIA [id number] [place] [id number] [facility] 02-04-2024 11:39-0400 SaO2% (BldA) [Mass fraction] 87 % ARAMIS JIMENES [facility] Comment on above: Order Comment: Specimen Type: ARTERIAL B LOOD SPECIMENOrdering Facility: [facility] Address: [address] [place], [place] [address] Performed By: #### A LLBG ####[facility] LABORATORYCLIA [id number] [place] [id number] [facility] 01-26-2024 16:39-0400 Body temperature 97.5 [degF] Susi Latrell ADMINISTRATIVE ACCOUNTANT - WASTE EXAMINER Work Phone: [facility] 01-26-2024 16:39-0400 Body weight 76.2 kg Susi Latrell ADMINISTRATIVE ACCOUNTANT - WASTE EXAMINER Work Phone: [facility] 01-26-2024 16:39-0400 Diastolic blood pressure 68 mm[Hg] Susi Siegfrie d ADMINISTRATIVE ACCOUNTANT - WASTE EXAMINER Work Phone: [facility] 01-26-2024 16:39-0400 Heart rate 94 /min Susi Latrell ADMINISTRATIVE ACCOUNTANT - WASTE EXAMINER Work Phone: [facility] 01-26-2024 16:39-0400 SaO2% (BldA) [Mass fraction] 97 % Susi Latrell ADMINISTRATIVE ACCOUNTANT - WASTE EXAMINER Work Phone: [facility] 01-26-2024 16:39-0400 Systolic blood pressure 140 mm[Hg] Susi Latrell ADMINISTRATIVE ACCOUNTANT - WASTE EXAMINER Work Phone: [facility] 01-24-2024 11:11-0400 Body height 162.6 cm Mayank Hanson MD Work Phone: [facility] 01-24-2024 11:11-0400 Body weight 74.84 kg Mayank Hanson MD Work Phone: [facility] 01-24-2024 11:11-0400 Respiratory rate 16 /min Mayank Hanson MD Work Phone: [facility] 06-06-2023 13:36-0400 Body height 157.48 cm Savana M Hoy Work Phone: [facility] DO Work Phone: 06-06-2023 13:36-0400 Body mass index (BMI) [Ratio] 27.98 kg/m2 Savana M Hoy Work Phone: [facility] DO Work Phone: 06-06-2023 13:36-0400 Body surface area Derived from formula 1.71 m2 Savana M Hoy Work Phone: [facility] DO Work Phone: 06-06-2023 13:36-0400 Body weight 69.4 kg Savana M Hoy Work Phone: [facility] DO Work Phone: 06-06-2023 13:36-0400 Diastolic blood pressure 62 mm[Hg] Savana M Hoy Work Phone: [facility] DO Work Phone: 06-06-2023 13:36-0400 Heart rate 64 /min Savana M Hoy Work Phone: [facility] DO Work Phone: 06-06-2023 13:36-0400 Systolic blood pressure 100 mm[Hg] Savana M Hoy Work Phone: [facility] DO Work Phone: 05-19-2023 15:41-0400 Body height 157.5 cm Christiana Montero MD Work Phone: [facility] 05-19-2023 15:41-0400 Body weight 70.94 kg Christiana Montero MD Work Phone: [facility] 05-19-2023 15:41-0400 Diastolic blood pressure 63 mm[Hg] Christiana Montero MD Work Phone: [facility] 05-19-2023 15:41-0400 Heart rate 76 /min Christiana Montero MD Work Phone: [facility] 05-19-2023 15:41-0400 Systolic blood pressure 124 mm[Hg] Christiana Montero MD Work Phone: [facility] 04-25-2023 11:12-0400 Blood Pressure Location ELLEN DANIEL [facility] 04-25-2023 11:12-0400 Diastolic blood pressure 80 mm[Hg] ELLEN DANIEL [facility] 04-25-2023 11:12-0400 Heart rate 72 /min ELLEN DANIEL [facility] 04-25-2023 11:12-0400 Respiratory rate 16 /min ELLEN DANIEL [facility] 04-25-2023 11:12-0400 Systolic blood pressure 130 mm[Hg] ELLEN DANIEL [facility] 02-03-2023 15:26-0400 Body height 157.5 cm Christiana Montero MD Work Phone: [facility] 02-03-2023 15:26-0400 Body weight 68.77 kg Christiana Montero MD Work Phone: [facility] 02-03-2023 15:26-0400 Diastolic blood pressure 59 mm[Hg] Christiana Montero MD Work Phone: [facility] 02-03-2023 15:26-0400 Heart rate 83 /min Christiana Montero MD Work Phone: [facility] 02-03-2023 15:26-0400 Systolic blood pressure 136 mm[Hg] Christiana Montero MD Work Phone: [facility] 10-31-2022 13:19-0500 Body height 157.5 cm Christiana Montero MD Work Phone: [facility] 10-31-2022 13:19-0500 Body temperature 97.81 [degF] Christiana Montero MD Work Phone: [facility] 10-31-2022 13:19-0500 Body weight 62.23 kg Christiana Montero MD Work Phone: [facility] 10-31-2022 13:19-0500 Diastolic blood pressure 68 mm[Hg] Christiana Montero MD Work Phone: [facility] 10-31-2022 13:19-0500 Heart rate 79 /min Christiana Montero MD Work Phone: [facility] 10-31-2022 13:19-0500 SaO2% (BldA) [Mass fraction] 97 % Christiana Montero MD Work Phone: [facility] 10-31-2022 13:19-0500 Systolic blood pressure 143 mm[Hg] Christiana Montero MD Work Phone: [facility] 08-08-2022 15:17-0400 Diastolic blood pressure 76 mm[Hg] Kunal LORA [facility] 08-08-2022 15:17-0400 Mean blood pressure 101 mm[Hg] Kunal LORA [facility] 08-08-2022 15:17-0400 Systolic blood pressure 152 mm[Hg] Kunal LORA [facility] 07-25-2022 12:47-0400 Body height 157.5 cm Christiana Montero MD Work Phone: [facility] 07-25-2022 12:47-0400 Body temperature 98.01 [degF] Christiana Montero MD Work Phone: [facility] 07-25-2022 12:47-0400 Body weight 61.01 kg Christiana Montero MD Work Phone: [facility] 07-25-2022 12:47-0400 Diastolic blood pressure 62 mm[Hg] Christiana Montero MD Work Phone: [facility] 07-25-2022 12:47-0400 Heart rate 80 /min Christiana Montero MD Work Phone: [facility] 07-25-2022 12:47-0400 SaO2% (BldA) [Mass fraction] 98 % Christiana Montero MD Work Phone: [facility] 07-25-2022 12:47-0400 Systolic blood pressure 140 mm[Hg] Christiana Montero MD Work Phone: [facility] 05-31-2022 11:58-0400 Body height 157.48 cm Savana Prater Work Phone: [facility] DO Work Phone: 05-31-2022 11:58-0400 Body mass index (BMI) [Ratio] 23.59 kg/m2 Savana Steinberg [employer] Work Phone: [facility] DO Work Phone: 05-31-2022 11:58-0400 Body surface area Derived from formula 1.59 m2 Savana Steinberg [employer] Work Phone: [facility] DO Work Phone: 05-31-2022 11:58-0400 Body weight 58.51 kg Savana Steinberg Hoy Work Phone: [facility] DO Work Phone: 05-31-2022 11:58-0400 Diastolic blood pressure 60 mm[Hg] Savana Steinberg Hoy Work Phone: [facility] DO Work Phone: 05-31-2022 11:58-0400 Heart rate 68 /min Savana M Hoy Work Phone: [facility] DO Work Phone: 05-31-2022 11:58-0400 Systolic blood pressure 102 mm[Hg] Savana M Hoy Work Phone: [facility] DO Work Phone: 03-18-2022 12:59-0400 Body height 157.5 cm Evita Calderon MD Work Phone: [facility] 03-18-2022 12:59-0400 Body weight 55.34 kg Evita Calderon MD Work Phone: [facility] 03-18-2022 12:59-0400 Diastolic blood pressure 52 mm[Hg] Evita hernandez MD Work Phone: [facility] 03-18-2022 12:59-0400 Heart rate 70 /min Evita Calderon MD Work Phone: [facility] 03-18-2022 12:59-0400 Systolic blood pressure 107 mm[Hg] Evita vera MD Work Phone: [facility] 03-02-2022 10:32-0400 Body weight 56.61 kg Han Britton MD Work Phone: [facility] 03-02-2022 10:32-0400 Diastolic blood pressure 53 mm[Hg] Han Britton MD Work Phone: [facility] 03-02-2022 10:32-0400 Heart rate 75 /min Han Britton MD Work Phone: [facility] 03-02-2022 10:32-0400 Systolic blood pressure 115 mm[Hg] Han Britton MD Work Phone: [facility] 01-31-2022 14:14-0400 Blood Pressure Location Kunal LORA [facility] 01-31-2022 14:14-0400 Diastolic blood pressure 51 mm[Hg] Kunal LORA [facility] 01-31-2022 14:14-0400 Heart rate 66 /min Kunal LORA [facility] 01-31-2022 14:14-0400 Respiratory rate 16 /min Kunal LORA [facility] 01-31-2022 14:14-0400 Systolic blood pressure 96 mm[Hg] Kunal LORA [facility] 08-09-2021 13:50-0400 Body height 157.48 cm Savana Styloola Hoy Work Phone: [facility] DO Work Phone: 08-09-2021 13:50-0400 Body mass index (BMI) [Ratio] 21.58 kg/m2 Savana Styloola Hoy Work Phone: [facility] DO Work Phone: 08-09-2021 13:50-0400 Body surface area Derived from formula 1.53 m2 Savana M Hoy Work Phone: [facility] DO Work Phone: 08-09-2021 13:50-0400 Body weight 53.52 kg Savana Steinberg Hoy Work Phone: [facility] DO Work Phone: 08-09-2021 13:50-0400 Diastolic blood pressure 60 mm[Hg] Savana Steinberg Hoy Work Phone: [facility] DO Work Phone: 08-09-2021 13:50-0400 Heart rate 72 /min Savana Steinberg Hoy Work Phone: [facility] DO Work Phone: 08-09-2021 13:50-0400 Systolic blood pressure 110 mm[Hg] Savana Steinberg Hoy Work Phone: [facility] DO Work Phone: Encounters Encounter Date Encounter Type Care Provider Facility Start: 04-24-2024 End: 04-24-2024 Patient encounter procedure Mayank Hanson MD Work Phone: [facility] Comment on above: Other closed displac ed fracture of proximal end of left humerus with routine healing, subsequent encounter (Primary Dx); History of left hip hemiarthroplasty Start: 04-24-2024 End: 04-24-2024 ambulatory MAYANK HANSON Facility:[facility] Start: 03-07-2024 E-mail encounter fro m caregiver Rodriguez Starr PA-C Work Phone: Radiology Start: 03-07-2024 Follow-up encounter Rodriguez kumari PA-C Work Phone: Radiology Comment on above: Actionable Findings Follow-Up Start: 02-27-2024 ambulatory Carla Schultz RN [facility] Care Management Comment on above: ALBA BARRIGA RN ( E.D. Utilization Review per Payer Request.) Start: 02-21-2024 End: 02-21-2024 Patient encounter procedure Mayank Hanson MD Work Phone: [facility] Comment on above: History of left hip hemiarthroplasty (Primary Dx); Other closed displaced fracture of proximal end of left humerus with routine healing, subsequent encounter Start: 02-21-2024 End: 02-21-2024 ambulatory MAYANK HANSON Facility:[facility] Start: 02-20-2024 End: 02-20-2024 ambulatory Carla Schultz RN [employer] Manager Management Comment on above: ALBA BARRIGA RN ( E.D. Utilization Review per Payer Request.) Start: 02-20-2024 End: 02-20-2024 Patient encounter procedure Helio Goff ADMINISTRATIVE ACCOUNTANT.JUNIOR DATA ANALYST Work Phone: URO/Gynecology Comment on above: Female genital prola pse, unspecified type (Primary Dx); Incomplete bladder emptying; Recurrent UTI Start: 02-12-2024 End: 02-13-2024 Emergency department patient visit ARAMIS JIMENES Facility:[facility] Start: 02-10-[address], MD Work Phone: [facility] Start: 02-07-2024 Refill Lena siu ADMINISTRATIVE ACCOUNTANT.JUNIOR DATA ANALYST Work Phone: [facility] Comment on above: Refill Request Start: 02-03-2024 Emergency department patient visit FESTUS GRIMES Facility:[facility] Start: 01-27-2024 End: 01-27-2024 Office outpatient visit 10 minutes Zo Blackmon ADMINISTRATIVE ACCOUNTANT - JUNIOR DATA ANALYST Work Phone: [facility] Comment on above: Acute cystitis witho ut hematuria (Primary Dx); Dysuria Start: 01-27-2024 End: 01-27-2024 ambulatory ZO BLACKMON [facility] Start: 01-26-2024 End: 01-27-2024 ambulatory SUSI NORTON [facility] Start: 01-26-2024 End: 01-26-2024 Patient encounter procedure Susi Norton ADMINISTRATIVE ACCOUNTANT - WASTE EXAMINER Work Phone: [facility] Comment on above: Dysuria (Primary Dx) Start: 01-24-2024 End: 01-24-2024 ambulatory MAYANK HANSON Facility:[facility] Start: 01-24-2024 End: 01-24-2024 Patient encounter procedure Mayank Hanson MD Work Phone: [facility] Comment on above: Other closed displac ed fracture of proximal end of left humerus, initial encounter (Primary Dx) Start: 01-18-2024 End: 01-18-2024 Emergency department patient visit MELITON SANCHEZ Facility:[facility] Start: 01-10-2024 Telephone encounter Ag Rylie Work Phone: [facility] Comment on above: Appointment Start: 12-26-2023 Telephone encounter Arvin quintero MD Work Phone: [facility] Start: 12-26-2023 End: 01-01-2024 ambulatory ARAMIS NASCIMENTO Facility:[facility] Start: 12-25-2023 Emergency department patient visit SAVANA PRATER Facility:[facility] Start: 12-25-2023 Telephone encounter Arvin Goins MD Work Phone: [facility] Provider Adult Comment on above: Hospital [facility] Hospital Start: 09-20-2023 End: 09-20-2023 ambulatory MAUREEN ALLREDI Not Available Start: 08-21-2023 End: 08-21-2023 Subsequent hospital visit by physician Judy Smith Echo/Vasc Room 2 [facility] Comment on above: Carotid stenosis, bi lateral; Benign hypertension Start: 07-19-2023 End: 07-20-2023 ambulatory ELLEN COOK Facility:[facility] Start: 07-19-2023 End: 07-19-2023 Lab Drop off ELLEN COOK [facility] Start: 07-19-2023 End: 07-20-2023 ambulatory Leonor Phillips Facility:[facility] Start: 07-19-2023 End: 07-19-2023 Patient encounter procedure Leonor Phillips [facility] Start: 06-06-2023 Office outpatient vi sit 15 minutes Savana Prater Work Phone: [facility] DO Work Phone: Start: 06-06-2023 ambulatory [...] m caregiver Christiana Montero MD Work Phone: [facility] Start: 04-26-2023 Rx Renewal Savana Prater Work Phone: [facility] DO Work Phone: Start: 04-25-2023 End: 04-26-2023 ambulatory ELLEN COOK Facility: [facility] Start: 04-25-2023 End: 04-25-2023 Patient encounter procedure ELLEN COOK [facility] Start: 04-17-2023 End: 04-18-2023 ambulatory Kunal LORA Facility:[facility] Start: 04-17-2023 End: 04-17-2023 Patient encounter procedure Kunal LORA [facility] Start: 02-17-2023 Telephone encounter Kasey Hernández RD Work Phone: Functional Medicine Comment on above: Appointment Start: 02-15-2023 End: 02-15-2023 ambulatory Kasey Cecille Hernández RD Work Phone: [facility] Start: 02-15-2023 End: 02-15-2023 [facility] visit, estab pt Kasey Cecille Hernández RD Work Phone: Functional Medicine Comment on above: Established Patient Start: 02-04-2023 ambulatory Christiana Concepcion Work Phone: Functional Medicine Comment on above: After Visit 02/03/23 Start: 02-04-2023 E-mail encounter fro m caregiver Christiana Montero MD Work Phone: 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 Start: 10-31-2022 End: 10-31-2022 Patient encounter procedure Christiana Montero MD Work Phone: Functional Medicine Comment on above: Memory change (Prima ry Dx); Subclinical hypothyroidism; Elevated homocysteine; Impaired nutrient utilization; 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) Start: 10-28-2022 Telephone encounter Christiana shah MD Work Phone: Functional Medicine Comment on above: Patient Question Start: 10-05-2022 End: 10-06-[address] SAVANA PRATER Facility:[facility] Start: 08-10-2022 End: 08-11-2022 ambulatory Kunal R LORA Facility:[facility] Start: 08-10-2022 End: 08-10-2022 Patient encounter procedure Kunal LORA [facility] Start: 08-08-2022 End: 08-09-2022 ambulatory Kunal LORA Facility:[facility] Start: 08-08-2022 End: 08-08-2022 Patient encounter procedure [facility] Start: 07-25-2022 End: 07-25-2022 Patient encounter procedure Christiana Montero MD Work Phone: Functional Medicine Comment on above: Memory change (Prima ry Dx); Subclinical hypothyroidism; Hypertension, unspecified type; Hyperlipidemia, unspecified hyperlipidemia type; Elevated homocysteine; Impaired nutrient utilization; Sleepiness; Mold exposure; On statin therapy; On beta [place] at home Start: 06-17-2022 End: 06-18-[address] SAVANA PRATER Facility:[facility] Start: 06-16-2022 ambulatory Evita siu MD Work Phone: Functional Medicine Comment on above: Dr Manny Hopper Start: 06-06-2022 End: 06-06-[address] SAVANA PRATER Facility:[facility] Start: 06-03-2022 End: 06-04-[address] SAVANA PRATER Facility:[facility] Start: 05-31-2022 Office outpatient vi sit 25 minutes Savana Prater Work Phone: [facility] DO Work Phone: Start: 05-12-2022 ambulatory [facility] Functional Medicine Comment on above: Mold Report Start: 05-12-2022 E-mail encounter fro m caregiver [facility] Start: 05-09-2022 ambulatory Evita siu MD Work Phone: Functional Medicine Comment on above: Ubiquinol Start: 04-26-2022 Rx Renewal Savana M Hoy Work Phone: [facility] DO Work Phone: Start: 04-11-2022 ambulatory [facility] Comment on above: Ultrasound - Carotid Artery Start: 04-11-2022 E-mail encounter jacob steinberg caregiver [facility] Start: 03-18-2022 End: 03-18-2022 Patient [...] Kunal LORA [facility] Start: 01-09-2022 ambulatory Evita siu MD Work Phone: Functional Medicine Comment on above: Mold test results Start: 08-09-2021 Office outpatient vi sit 25 minutes Savana Prater Work Phone: [facility] DO Work Phone: Start: 07-11-2017 Ambulatory MRAY ANNE SNOW Faci lity:[id number] Procedures Date Procedure Procedure Detail Performing Clinician Start: 02-21-2024 Radex shoulder compl ete minimum 2 views Mayank Hanson MD Work Phone: Start: 02-03-2024 Antibody screen ARAMIS FITZGERALD Comment on above: Order Comment: Speci men Type: BLOOD SPECIMENOrdering Facility: [facility] Address: [address] [place] [address] Performed By: #### T SCR ####[facility] BLOOD BANKCLIA [id number] [place] [address] [place] Start: 01-27-2024 Urnls dip stick/tabl et rgnt auto w/o microscopy Vanessa Javed DO Work Phone: Start: 01-27-2024 Culture bacterial qu anttative colony count urine Vanessa Javed DO Work Phone: Start: 01-24-2024 Radex shoulder compl ete minimum 2 views Mayank Hanson MD Work Phone: Start: 08-21-2023 Duplex scan extracra nial art compl bi study Mary Anne Snow MD Work Phone: Start: 02-12-2019 Cystourethroscopy [facility] dilation of urethral stricture Kunal LORA Appendectomy Savana M Hoy Work Phone: Cholecystectomy Savana Steinberg Ho y Work Phone: Operation on bladder Savana M Hoy Work Phone: Tonsillectomy Savana M Hoy Work Phone: Total colonoscopy Savana M Josi Work Phone: Comment on above: managed by perico james; Plan of Treatment Date Care Activity Detail Author Start: 02-11-2027 Diabetes Screening Diabetes Screenin g [facility] Start: 02-09-2027 Diabetes Screening Diabetes Screenin [facility] Start: 02-06-2027 Diabetes Screening Diabetes Screenin [facility] Start: 01-17-2027 Diabetes Screening Diabetes Screenin g [facility] Start: 12-29-2026 Diabetes Screening Diabetes Screenin g [facility] Start: 12-26-2026 Diabetes Screening Diabetes Screenin g [facility] Start: 12-24-2026 Diabetes Screening Diabetes Screenin g [facility] Start: 06-09-2024 Influenza vaccination C [facility] Start: 06-04-2024 FUV, Provider: Mary Anne Snow, Status: Pen, Time: 2:00 PM FUV, Provider: Mary Anne Snow, Status: Pen, Time: 2:00 PM [place] [address] DO Work Phone: Start: 06-04-2024 End: 06-04-2024 Patient encounter procedure 06/04/2024 2:00 PM EDT Office Visit [facility] [address] [facility] [address] [place] [id number] Mary Anne Snow MD [address] [facility] [place] [address] [facility] Start: 04-24-2024 End: 04-24-2024 Patient encounter procedure 04/24/2024 1:30 PM EDT Office Visit [facility] [address] [place] [address] Mayank Hanson MD [address] [address] L HUMERUS FX F/U [facility] Comment on above: L HUMERUS FX F/U Start: 02-21-2024 End: 02-21-2024 Patient encounter procedure 02/21/2024 11:15 AM EDT Office Visit [facility] [address] [place] [address] Mayank Hanson MD [address] [place] [id number] --L HUMERUS FX F/U [facility] Comment on above: --L HUMERUS FX F/U Start: 02-20-2024 End: 02-20-2024 Patient encounter procedure 02/20/2024 1:00 PM EDT Office Visit URO/Gynecology [address] [place] [address] Helio Goff, ADMINISTRATIVE ACCOUNTANT.JUNIOR DATA ANALYST [address] [place] [address] Prolapse / Pessary [facility]Gynecology Comment on above: Prolapse / Pessary Start: 11-25-2023 DIABETES SCREEN DIABETES SCREEN [facility] Start: 10-09-2023 Advance Directive Discussion Advance Directive Discussion [facility] Start: 10-09-2023 Medicare Advantage A nnual Wellness Visit Medicare Advantage Annual Wellness Visit [facility] Start: 07-24-2023 CAROTID, Provider: CHAD CARMONA ULTRASOUND 01,[id number], Status: Pen, Time: 2:30 PM CAROTID, Provider: CHAD SIMONI ULTRASOUND ,[id number], Status: Pen, Time: 2:30 PM [facility] 250 DO Work Phone: Start: 06-09-2023 Covid-19 Vaccine ( season) Covid-19 Vaccine () [facility] Start: 06-09-2023 Influenza vaccination C [facility] Start: 06-06-2023 FUV, Provider: Mary Anne Snow, Status: Pen, Time: 1:20 PM FUV, Provider: Mary Anne Snow, Status: Pen, Time: 1:20 PM [facility] DO Work Phone: Start: 03-18-2023 BP CONTROLLED (<130/80) BP CON TROLLED (<130/80) [facility] Start: 03-02-2023 BP CONTROLLED (<130/80) BP CON TROLLED (<130/80) [facility] Start: 02-04-2023 End: 04-06-2023 MIS SEND OUT TST 1 MISC SEND OUT TST 1 Lab Routine 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) Chemical exposure Expected: 02/04/2023, Expires: 04/06/2023 [facility] Work Phone: Comment on above: Expected: 02/04/2023 , Expires: 04/06/2023 Start: 12-01-2022 BP CONTROLLED (<130/80) BP CON TROLLED (<130/80) [facility] Start: 10-09-2022 ADVANCE DIRECTIVE DISCUSSION ADVANCE DIRECTIVE DISCUSSION [facility] Start: 07-25-2022 End: 09-24-2022 COPPER BLOOD COPPER BLOOD Lab Routine Memory change Expected: 07/25/2022, Expires: 09/24/2022 [facility] Work Phone: Comment on above: Expected: 07/25/2022 , Expires: 09/24/2022 Start: 07-25-2022 End: 09-24-2022 FM SQ NUTREVAL PANEL BLOOD AND URINE FM SQ NUTREVAL PANEL BLOOD AND URINE Lab Routine Impaired nutrient utilization Expected: 07/25/2022, Expires: 09/24/2022 [facility] Work Phone: Comment on above: Expected: 07/25/2022 , Expires: 09/24/2022 Start: 07-25-2022 End: 09-24-2022 Homocysteine [Moles/volume] in Serum or Plasma HOMOCYSTEINE Lab Routine Elevated homocysteine Expected: 07/25/2022, Expires: 09/24/2022 [facility] Work Phone: Comment on above: Expected: 07/25/2022 , Expires: 09/24/2022 Start: 07-25-2022 End: 07-25-2023 Thyrotropin [Units/volume] in Serum or Plasma TSH BLD Lab Routine Expected: 07/25/2022, Expires: 07/25/2023 [facility] Work Phone: Comment on above: Expected: 07/25/2022 , Expires: 07/25/2023 Start: 07-25-2022 End: 07-25-2023 Thyroxine (T4) free [Mass/volume] in Serum or Plasma T4 FREE/FREE THYROX Lab Routine Expected: 07/25/2022, Expires: 07/25/2023 [facility] Work Phone: Comment on above: Expected: 07/25/2022 , Expires: 07/25/2023 Start: 07-25-2022 End: 09-24-2022 Triiodothyronine (T3) Free [Mass/volume] in Serum or Plasma T3 FREE BLD Lab Routine Expected: 07/25/2022, Expires: 09/24/2022 [facility] Work Phone: Comment on above: Expected: 07/25/2022 , Expires: 09/24/2022 Start: 07-25-2022 End: 09-24-2022 Zinc [Mass/volume] in Serum or Plasma ZINC BLD Lab Routine Memory change Expected: 07/25/2022, Expires: 09/24/2022 [facility] Work Phone: Comment on above: Expected: 07/25/2022 , Expires: 09/24/2022 Start: 06-09-2022 Influenza vaccination C [facility] Start: 05-31-2022 FUV, Provider: Mary Anne Snow, Status: Pen, Time: 11:50 AM FUV, Provider: Mary Anne Snow, Status: Pen, Time: 11:[address] [facility] [employer] 250 DO Work Phone: Start: 05-25-2022 FUV, Provider: Mary Anne Snow, Status: Pen, Time: 1:00 PM FUV, Provider: Mary Anne Snow, Status: Pen, Time: 1:[address] [facility] [employer] 250 DO Work Phone: Start: 10-09-2021 ADVANCE DIRECTIVE DISCUSSION ADVANCE DIRECTIVE DISCUSSION [facility] Start: 08-07-2019 Pneumococcal Vaccine : 65+ (2 of 2 - PPSV23 or PCV20) Pneumococcal Vaccine: 65+ (2 of 2 - PPSV23 or PCV20) [facility] Start: 08-07-2019 Pneumococcal Vaccine : 65+ Years (2 - PPSV23 or PCV20) Pneumococcal Vaccine: 65+ Years (2 - PPSV23 or PCV20) [facility] Start: 08-07-2019 Pneumococcal Vaccine : 65+ Years (2 of 2 - PPSV23 or PCV20) Pneumococcal Vaccine: 65+ Years (2 of 2 - PPSV23 or PCV20) [facility] [employer] Start: 2006 BONE DENSITY BONE DENSITY [facility] Start: 2006 PNEUMOCOCCAL: 65+ (1 - PCV) PNEUMOCOCCAL: 65+ (1 - PCV) [facility] Start: 2006 PNEUMOVAX AGE 65 AND OVER WITH 5YR LOOKBACK (#1) PNEUMOVAX AGE 65 AND OVER WITH 5YR LOOKBACK (#1) [facility] Start: 2006 Screening for osteoporosis Bone Dens ity Screening [facility] Start: 2001 RSV Immunization age d 60 or older (1 - 1-dose 60+ series) RSV Immunization aged 60 or older (1 - 1-dose 60+ series) [facility] Start: 2001 RSV Vaccine (1 - 1-d ose 60+ series) RSV Vaccine (1 - 1-dose 60+ series) [facility] Start: 1991 SHINGRIX VACCINE (1 of 2) BYRNE GRIX VACCINE (1 of 2) [facility] Start: 1991 Zoster Vaccines (1 of 2) Zoste r Vaccines (1 of 2) [facility] Start: 1963 DTaP/Tdap/Td Vaccine s (1 - Tdap) DTaP/Tdap/Td Vaccines (1 - Tdap) [facility] Start: 1960 DTaP/Tdap/Td Vaccine s (1 - Tdap) DTaP/Tdap/Td Vaccines (1 - Tdap) 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 Start: 1946 COVID-19 VACCINE (#1) COVID-19 VACCI NE (#1) [facility] Start: 1946 COVID-19 VACCINE (1) COVID-19 VACCIN E (1) [facility] Start: 05-09-1942 COVID-19 VACCINE (#1) COVID-19 VACCI NE (#1) [facility] Start: 1941 Lipid panel Lipid Panel [facility] Start: 1941 Medicare Annual Well ness Visit Medicare Annual Wellness Visit (AWV) [facility] Start: 1941 Screening for osteoporosis Bone Dens ity Scan [facility] Bacteria identified in Urine by Culture Urine culture Microbiology Routine Dysuria Ordered: 01/27/[address] [facility] Work Phone: Comment on above: Ordered: 01/27/2024 End: 08-21-2023 US.doppler Carotid arteries - bilateral [facility] Service Area Work Phone: Comment on above: Once for 1 Occurrenc es starting 08/21/2023 until 08/21/2023 [facility] Immunizations Immunization Date Immunization Notes Care Provider Fa andres 08-07-2018 pneumococcal conjuga te vaccine, 13 valent Savana M Hoy Work Phone: [facility] 250 DO Work Phone: NEGATED: Highlighted row has not occurred!08-08-2022 SARS-CoV-2 mRNA (tozinameran 5y-11y) vaccine Kunal LORA [facility] NEGATED: Highlighted row has not occurred!11-23-2020 influenza virus vaccine, unspecified formulation Kunal LORA [facility] Payers Date Payer Category Payer Medicare AETNA MEDICARE A ETNA MEDICARE PPO [id number] 2021-Present [phone] [address] [place] [address] O [id number] 2021 Medicare [id number] 1959 Medicare [id number] 1941 Unknown [id number] 93 1941 Unknown [id number] [id number] 93 1941 Unknown [id number] [id number] 93 1941 Unknown [id number] 93 1941 Unknown [id number] [id number] 93 1941 Unknown [id number] [id number] 56 1941 Unknown [id number] [id number] 27 1941 Unknown [id number] [id number] 27 1941 Unknown [id number] [id number] 27 1941 Unknown [id number] 2.16.840.1.010829.3.579.2.7 27 1941 Unknown [id number] [id number] 27 1941 Unknown [id number] [id number] 27 1941 Unknown [id number] 259 Private Health Insurance [id number] Unknown [employer] Social History Date Type Detail Facility Start: 10-31-2022 End: 02-15-2023 Caffeine use Caffeine use [facility] Comment on above: decaff occasional co ffee, 1-2 cups of ohtt lionel daily; Start: 06-13-2019 End: 07-25-2022 Tobacco smoking status NHIS Never smoked tobacco [facility] Start: 06-13-2019 End: 07-25-2022 Tobacco use and exposure Smokeless tobacco non-user [facility] Start: 1940 Sex Assigned At Female [facility] Start: 12-07-2021 End: 08-21-2023 Exposure to SARS-CoV-2 (event) Not sure [facility] Start: 10-31-2022 End: 02-15-2023 Sex Assigned At Female [facility] Tobacco smoking status Never [facility] Start: 07-07-2020 Sexual orientation Heterosexual (beronica winters) [facility] Tobacco smoking stat [facility] Tobacco smoking consumption unknown [facility] Work Phone: Start: 1940 Sex Assigned At Not on file [facility] Work Phone: Start: 12-25-2023 End: 04-24-2024 Alcohol intake Lifetime non-drinker (finding) [facility] Has the [employer], or [employer] threatened to shut off services in your home in past 12Mo No [facility] (I/We) worried nathalie kearney (my/our) food would run out before (I/we) got money to buy more. Never true [facility] Medical Equipment Procedure Code Equipment Code Equipment Original Text Equipment Identifier Dates Cement Simplex P Tobramycin Bone Full Dose Radiopaque Preblend Sterile - [id number] Start: 02-04-2024 Cement Simplex P Tobramycin Bone Full Dose Radiopaque Preblend Sterile - [id number] Start: 02-04-2024 Insert Endo Ii + 6mm Taper Acetabular Hip - [id number] Start: 02-04-2024 Head Bio-Murphy I i Endo Ii 44mm Cocr Molybdenum Femoral Modular - [id number] Start: 02-04-2024 Centralizer Vers ys 11mm Pmma Stem Cemented Sterile Hip Distal - [id number] Start: 02-04-2024 Stem Echo Fx 9mm Lateral Offset Cocr Femoral Hip - [id number] Start: 02-04-2024 Plug Small Bone Cement 8-10mm Sterile Intramedullary Canal - [id number] Start: 02-04-2024 Functional Status Date Assessment Result Facility 04-25-2023 Functional Status N/A [facility] 08-08-2022 Functional Status N/A [facility] Clinical Notes 01-31-2022 to 04-24-2024 Mayank Hanson MD - 04/24/2024 1:20 PM Carla Matias RN - 02/27/2024 11:37 AM Mayank Noel MD - 02/21/2024 1:21 PM EDTPatient InstructionsPatient Instructions Note Date & Type Note Facility 04-24-2024 Note [facility] 04-24-2024 History of Presen t illness Narrative Images from the original note were not included. REVIEW OF SYSTEMS: GENERAL: Well developed, well nourished. No acute distress PAIN: Negative for pain, history of chronic pain or current treatment for chronic pain conditions CARDIOVASCULAR: Negative for chest pain, leg swelling and palpations. MSK: Negative for joint swelling SKIN: Negative for lesions, rash, itching, metal sensitivity NEURO: Negative for seizure, trauma, numbness/tingling of extremities. ENDOCRINE: Negative for diabetic associated symptoms HEMATOLOGY: Negative for excessive bleeding, clots, bleeding disorders. ORTHOPAEDIC OFFICE NOTE CHIEF COMPLAINT: left hip fracture HISTORY OF PRESENT ILLNESS: Ann Marie Hill is a 83 year old female who presents for reevaluation after left hip endoprosthesis placement for femoral neck fracture 02/04/2024; the patient was previously seen for a left proximal humerus fracture treated at an outside institution 12/2023. Patient has baseline dementia and is unable to participate in history and minimally in examination. Accompanied by . Per his report she has been ambulatory on the left lower extremity. Does not demonstrate signs of pain. Distant left shoulder fracture, and she self-limits use on the left upper extremity. No new injury mechanisms reported. Reviewed nursing note and current pain scale. PAST MEDICAL HISTORY Diagnosis Date Alzheimer disease (HCC) HTN (hypertension) Hyperlipidemia PAST SURGICAL HISTORY Procedure Laterality Date REMOVAL GALLBLADDER REMV CATARACT EXTRACAP,INSERT LENS Bilateral VASCULAR ACCESS TEAM MID-LINE INSERTION (AK) 02/08/2024 History reviewed. No pertinent family history. Social History Tobacco Use Smoking status: Never Smokeless tobacco: Never Substance Use Topics Alcohol use: Never Drug use: Never MEDICATIONS: Current Outpatient Medications Medication Sig acetaminophen (TYLENOL) 500 mg tablet Take 2 tablets by mouth every 6 hours as needed for pain. cyanocobalamin (VITAMIN B-12) 100 mcg tab Take 100 mcg by mouth once daily. Ascorbic Acid (VITAMIN C) 1,000 mg tablet Take 1,000 mg by mouth once daily. hydrOXYzine HCl (ATARAX) 25 mg tablet Take 25 mg by mouth three times a day as needed for anxiety. amLODIPine (NORVASC) 10 mg tablet Take 10 mg by mouth once daily. vitamin E, dl,tocopheryl acet, (VITAMIN E, DL, ACETATE,) 45 mg (100 unit) capsule Take 45 mg by mouth once daily. desvenlafaxine ER (PRISTIQ) 50 mg 24 hr tablet Take 50 mg by mouth once daily. coQ10, ubiquinol, 100 mg cap Take 1 [...] Take 2,000 Units by mouth once daily. No current facility-administered medications for this visit. ALLERGIES: ALLERGIES Allergen Reactions Yuli Inhibitors Unknown Ciprofloxacin Unknown Nitrofurantoin [place]addo* Itching Penicillins Hives Sulfa (Sulfonamide * Rash PHYSICAL EXAMINATION: Temp 98.2 Ht 5' 2 (1.58m) Wt 168 lb (76.2kg) BMI 30.72 kg/(m^2). General Appearance: Well appearing, alert, in no acute distress, well-hydrated, well nourished. Skin: Skin color, texture, turgor normal, no suspicious rashes or lesions. Extremities: Left lower extremity with no new deformity. No tenderness to palpation with soft compressible compartments left thigh and leg. Passive left hip IR/ER elicits no pain. Passive left shoulder IR/ER short arc of motion with hesitancy. Touches face with left hand. Peripheral Pulses: Normal. Neurologic: Intact light touch sensation left upper extremity. IMAGES: No results found for this or any previous visit (from the past 36 hour(s)). Imaging canceled this visit as right shoulder films obtained in department; did not require pelvic film. ASSESSMENT AND PLAN: 1. Other closed displaced fracture of proximal end of left humerus with routine healing, subsequent encounter - ICD9: V54.11, ICD10: S42.292D (primary diagnosis) 2. History of left hip hemiarthroplasty - ICD9: V43.64, ICD10: Z96.642 Functional Plan: Patient will self-limit her activity based on symptoms and has no restrictions. This has been reviewed with at prior visits. Assistance Devices: Per facility. Physical/Occupational Therapy: Per facility, no new formal therapy orders placed. Wound Care: None. Pain Control: No change in pain regimen recommended this office visit. Additional: None for patient. requested referral to payroll specialist [facility]; will have office attempt to help him. Return if symptoms worsen or fail to improve. Mayank Hanson MD documented in this encounter [facility] 02-27-2024 Note Patient Outreach ([facility]) ANN MARIE HILL ([id number]) 1940 F Date Time Provider Department 02/27/24 CARLA SCHULTZ During your visit today, we recorded the following information about you: Carla Schultz RN 02/27/2024 11:41 AM Signed [facility] JAMILAH RN Patient identified by name and date of . Reason for review or outreach: Chart Review Jamilah Priority Emergency Department Utilization ED DIAGNOSES/REASON(S) FOR ED USE: OTHER FINDINGS/SUMMARY: [facility] Admit No Action required Patient Attributed To: ZIYADE Payer: Mariana PERKINS Action Taken: No action needed Contact made with patient: No, Chart review only. Signature: Carla Schultz RN Allergies As of Date: 02/27/2024 Noted Allergy Reaction YULI INHIBITORS 12/25/2023 16 - Unknown CIPROFLOXACIN 06/13/2019 16 - Unknown NITROFURANTOIN MONOHYD/M-CRYST 09/14/2021 9 - Itching PENICILLINS 09/03/2013 4 - Hives SULFA (SULFONAMIDE ANTIBIOTICS) 06/13/2019 2 - Rash Date Reviewed: 02/21/2024 Reviewed by: Mayank Hanson MD - Fully Assessed Reason for Visit: ACJackson JAMILAH RN [[id number]] Cmt: E.DTanner Utilization Review per Payer Request. Prescriptions as of 02/27/2024 - acetaminophen (TYLENOL) 500 mg tablet Take 2 tablets by mouth every 6 hours as needed for pain. - enoxaparin (LOVENOX) 40 mg/0.4 mL Inject 0.4 mL subcutaneously every 24 hours for 21 days. Patient should start on February 08, 2024. - cyanocobalamin (VITAMIN B-12) 100 mcg tab Take 100 mcg by mouth once daily. - Ascorbic Acid (VITAMIN C) 1,000 mg tablet Take 1,000 mg by mouth once daily. - hydrOXYzine HCl (ATARAX) 25 mg tablet Take 25 mg by mouth three times a day as needed for anxiety. - amLODIPine (NORVASC) 10 mg tablet Take 10 mg by mouth once daily. - vitamin E, dl,tocopheryl acet, (VITAMIN E, DL, ACETATE,) 45 mg (100 unit) capsule Take 45 mg by mouth once daily. - desvenlafaxine ER (PRISTIQ) 50 mg 24 hr tablet Take 50 mg by mouth once daily. - coQ10, ubiquinol, 100 mg cap Take [...] Take 2,000 Units by mouth once daily. Problem List As Of Date 02/27/2024 Noted Resolved ASCVD (arteriosclerotic cardiovascular disease)*07/07/2020 Hyperlipidemia [E78.5] 07/07/2020 Hypertension [I10] 07/07/2020 Late onset Alzheimer's disease with behavioral *07/07/2020 Comminuted left humeral fracture, closed, initi*12/25/2023 Dementia (HCC) [F03.90] 12/26/2023 UTI (urinary tract infection) [N39.0] 12/26/2023 Delirium [R41.0] 12/26/2023 Other female genital prolapse [N81.89] 12/26/2023 Hypokalemia [E87.6] 12/28/2023 Closed displaced fracture of left femoral neck *02/03/2024 02/09/2024 Obesity, Class I, BMI 30-34.9 [E66.9] 02/04/2024 Frailty syndrome in geriatric patient [R54] 02/05/2024 Pseudomonas aeruginosa infection [A49.8] 02/07/2024 Encounter Status:Closed by CARLA SCHULTZ on 02/27/24 [facility] 02-27-2024 Note HNO ID: [id number] Author: CARLA SCHULTZ RN Service: ? Author Type: Registered Nurse Type: Progress Notes Filed: 02/27/2024 11:41 Note Text: [facility] JAMILAH RN Patient identified by name and date of . Reason for review or outreach: Chart Review Jamilah Priority Emergency Department Utilization ED DIAGNOSES/REASON(S) FOR ED USE: OTHER FINDINGS/SUMMARY: [facility] Admit No Action required Patient Attributed To: QAE Payer: [employer] MADDIE Action Taken: No action needed Contact made with patient: No, Chart review only. Signature: Carla Schultz RN [facility] 02-27-2024 History of Presen t illness Narrative AC JAMILAH RN Patient identified by name and date of . Reason for review or outreach: Chart Review Jamilah Priority Emergency Department Utilization ED DIAGNOSES/REASON(S) FOR ED USE: OTHER FINDINGS/SUMMARY: [facility] Admit No Action required Patient Attributed To: QAE Payer: A[employer]na [place] Action Taken: No action needed Contact made with patient: No, Chart review only. Signature: Carla Schultz RN documented in this encounter [facility] 02-21-2024 Note Gwendolyn Banks [facility] 02-21-2024 History of Presen t illness Narrative ORTHOPAEDIC OFFICE NOTE CHIEF COMPLAINT: left hip and shoulder injuries HISTORY OF PRESENT ILLNESS: Ann Marie Hill is a 83 year old female who presents for post-operative evaluation after left hip endoprosthesis placement for femoral neck fracture 02/04/2024; the patient was previously seen for a left proximal humerus fracture treated at an outside institution 12/2023. She is performing rehab at [facility], accompanied by . Patient with advanced dementia and unable to answer many questions but follows commands. Appears comfortable. deciding whether to move her to memory care at [facility] or back to independent living with him at [facility]. No reports of new injury. No reports of fevers chills nausea or vomiting. Reviewed nursing note and current pain scale. PAST MEDICAL HISTORY Diagnosis Date Alzheimer disease (HCC) HTN (hypertension) Hyperlipidemia PAST SURGICAL HISTORY Procedure Laterality Date REMOVAL GALLBLADDER REMV CATARACT EXTRACAP,INSERT LENS Bilateral VASCULAR ACCESS TEAM MID-LINE INSERTION (AK) 02/08/2024 History reviewed. No pertinent family history. Social History Tobacco Use Smoking status: Never Smokeless tobacco: Never Substance Use Topics Alcohol use: Never Drug use: Never MEDICATIONS: Current Outpatient Medications Medication Sig acetaminophen (TYLENOL) 500 mg tablet Take 2 tablets by mouth every 6 hours as needed for pain. enoxaparin (LOVENOX) 40 mg/0.4 mL Inject 0.4 mL subcutaneously every 24 hours for 21 days. Patient should start on February 08, 2024. loratadine (CLARITIN) 10 mg tablet Take 10 mg by mouth once daily as needed. cyanocobalamin (VITAMIN B-12) 100 mcg tab Take 100 mcg by mouth once daily. Ascorbic Acid (VITAMIN C) 1,000 mg tablet Take 1,000 mg by mouth once daily. hydrOXYzine HCl (ATARAX) 25 mg tablet Take 25 mg by mouth three times a day as needed for anxiety. amLODIPine (NORVASC) 10 mg tablet Take 10 mg by mouth once daily. vitamin E, dl,tocopheryl acet, (VITAMIN E, DL, ACETATE,) 45 mg (100 unit) capsule Take 45 mg by mouth once daily. desvenlafaxine ER (PRISTIQ) 50 mg 24 hr tablet Take 50 mg by mouth once daily. coQ10, ubiquinol, 100 mg cap Take 1 [...] Take 2,000 Units by mouth once daily. No current facility-administered medications for this visit. ALLERGIES: ALLERGIES Allergen Reactions Yuli Inhibitors Unknown Ciprofloxacin Unknown Nitrofurantoin [place]o* Itching Penicillins Hives Sulfa (Sulfonamide * Rash PHYSICAL EXAMINATION: Temp 98.2 Ht 5' 0 (1.52m) Wt 168 lb (76.2kg) BMI 32.81 kg/(m^2). General Appearance: Well appearing, alert, in no acute distress, well-hydrated, well nourished. Follows commands, answers few questions. Skin: Skin color, texture, turgor normal, no suspicious rashes or lesions. Extremities: Left hip incision healing well. Left thigh and ankle edema consistent with recent hip fracture. Left thigh and leg compartments soft and compressible. No pain with passive left hip IR/ER, stable range of motion, some hesitancy. Crosses legs spontaneously. Able to forward flex left shoulder 80 degrees. Able to touch face, unable to touch top of head. Gentle left shoulder IR/ER elicits hesitancy and short stable arc of motion without crepitance. Peripheral Pulses: Normal. Neurologic: Intact light touch sensation left upper and lower extremity. IMAGES: Recent Results (from the past 36 hour(s)) XR SHOULDER LIMITED 2V AP/TRUE AP LEFT Narrative Two views left shoulder demonstrate no change in position of the displaced proximal humerus fracture as compared to initial presentation films. There is increased bone activity within the proximal humerus. No new fracture identified. ASSESSMENT AND PLAN: 1. History of left hip hemiarthroplasty - ICD9: V43.64, ICD10: Z96.642 (primary diagnosis) 2. Other closed displaced fracture of proximal end of left humerus with routine healing, subsequent encounter - ICD9: V54.11, ICD10: S42.292D Functional Plan: Weight bearing and range of motion as tolerated left upper and lower extremities, will self-limit based on pain. Not able to adhere to posterior hip dislocation precautions. Assistance Devices: Per facility, currently in cushioned electric chair. Physical/Occupational Therapy: Ongoing per facility. Wound Care: Cleaned incision and removed all steri strips left hip. Pain Control: No change in pain regimen recommended this office visit. Fragility Fracture: On supplementation. Additional: Cautioned with two falls in recent months resulting in fractures and a surgery that patient may not be able to return to independent living. Return in about 9 weeks (around 04/24/2024). Mayank Hanson MD Medical Decision Making: Problems: Low: Stable chronic illness Data: Unique test result(s) reviewed: 1 Unique test(s) ordered: 1 Risk: Low: Low risk from testing/treatment Medical Decision Making Level: 3 - Low (Shoulder) (Hip) - global post-operative period documented in this encounter [facility] 02-20-2024 Instructions Helio Goff, ADMINISTRATIVE ACCOUNTANT.JUNIOR DATA ANALYST - 02/20/2024 4:17 PM EDT Recommend trying to void every 2 hours. Lie in a recumbent position throughout the day to help reduce prolapse. If patient agreeable, to apply estrogen cream to urethra after showering or toileting. May treat UTI symptoms empirically with antibiotic. May also consider daily suppressive antibiotic. General vulvar care measures as below: Vulvar Care Gentle care of the vulva is best. Avoid products and other items that may be irritating. The following may be helpful in relieving or reducing symptoms: Wear 100% cotton underwear. Do not wear underwear while sleeping. Avoid douching. Avoid irritants, such as perfumes, dyes, shampoos, detergents, and deodorants. Clean the vulva with water only. Switch to 100% cotton pads if regular pads are irritating. Use lubricants during sex, but avoid lubricants with flavor or cooling/warming sensation. Rinse and pat the vulva dry after urinating. After bathing, apply a thin layer of a preservative-free oil or petroleum jelly to hold in moisture and protect the skin. Avoid using a chair spring assembler to dry the vulvar area. Use cool gel packs on the vulva. documented in this encounter [facility] 02-20-2024 Note HNO ID: [id number] Author: HELIO GOFF APRN.CNP Service: ? Author Type: Nurse Practitioner Type: Progress Notes Filed: 02/20/2024 16:19 Note Text: Female Pelvic Medicine AND Reconstructive Surgery Consult CHIEF COMPLAINT: Ann Marie Hill is a 83 year old female who presents for consultation requested by Self Referred for an opinion regarding Pelvic Organ Prolapse . HISTORY OF PRESENT ILLNESS: Ann Marie presents with daughter, Christos and , Michael. She suffers from Alzheimer's disease and currently resides at [facility] in [place]. She recently underwent surgery for a fractured hip. She has been wearing pessary (incontinence dish) but Christos is very opposed to continuing with these. She reports Ann Marie becomes extremely distressed with pelvic exams. The pessary was recently removed by general HISTORICAL SITE GUIDE. Christos strongly feels this a violation of her mother's body. Ann Marie has been prescribed vaginal estrogen cream but this is difficult to use as Ann Marie is not comfortable with the facility staff placing the cream. Michael had been placing the cream at home which Ann Marie was fine with. Michael would like Ann Marie to return home but that is unlikely given her health and dementia. Ann Marie is in a Broda chair today. Christos reports the biggest issue they face is Ann Marie having trouble emptying bladder. She has frequent UTIs which are being treated empirically by the facility. UTI symptoms usually present with a change/worsening of Ann Marie's cognition. Michael is POA. Medical and Symptom History: HISTORICAL SITE GUIDE HISTORY: Last Pap: NA; Last Mammogram: Her last mammogram was 2022. She has no history of an abnormal mammogram LMP: No LMP recorded. Patient is postmenopausal.; Menopause yes: Menstrual history: NA; Deliveries: History of third or fourth degree laceration: Yes Weight of largest baby: 8.0 Sexual function Sexually active: Not sexually active PFDI-20 (Completed by daughter, Christos) Do you: Usually experience pressure in the lower abdomen? Yes, moderately bothersome (3) Usually experience heaviness or dullness in the pelvic area? Yes, moderately bothersome (3) Usually have a bulge or something falling out that you can see or feel in your vaginal area? Yes, moderately bothersome (3) Ever have to push on the vagina or around the rectum to have or complete a bowel movement? No (0) Usually experience a feeling of incomplete bladder emptying? Yes, quite a bit bothersome (4) Ever have to push up on a bulge in the vaginal area with your fingers to start or complete urination? Yes, not at all bothersome (1) Feel you need to strain too hard to have a bowel movement? Yes, moderately bothersome (3) Feel you have not completely emptied your bowels at the end of a bowel movement? Yes, moderately bothersome (3) Usually lose stool beyond your control if your stool is well formed? No (0) Usually lose stool beyond your control if your stool is loose? No (0) Usually lose gas from the rectum beyond your control? No (0) Usually have pain when you pass your stool? No (0) Experience a strong sense of urgency and have to dai to the bathroom to have a bowel movement? No (0) Does part of your bowel ever pass through the rectum and bulge outside during or after a bowel movement? No (0) Usually experience frequent urination? Yes, quite a bit bothersome (4) Usually experience urine leakage associated with a feeling of urgency, that is, a strong sensation of needing to go to the bathroom? Yes, not at all bothersome (1) Usually experience urine leakage related to coughing, sneezing or laughing? Yes, quite a bit bothersome (4) Usually experience small amounts of urine leakage (that is, drops)? Yes, somewhat bothersome (2) Usually experience difficulty emptying your bladder? Yes, quite a bit bothersome (4) Usually experience pain or discomfort in the lower abdomen or genital region? Yes, quite a bit bothersome (4) Do you have pain associated with your prolapse (not pressure or fullness) Yes, what is your typical prolapse related pain on a scale of 0-10? 7 Where is your pain located? vagina PAST SURGICAL HISTORY Procedure Laterality Date REMOVAL GALLBLADDER REMV CATARACT EXTRACAP,INSERT LENS Bilateral VASCULAR ACCESS TEAM MID-LINE INSERTION (AK) 02/08/2024 PAST MEDICAL HISTORY Diagnosis Date Alzheimer disease (HCC) HTN (hypertension) Hyperlipidemia History reviewed. No pertinent family history. Current Outpatient Medications Medication Sig acetaminophen (TYLENOL) 500 mg tablet Take 2 tablets by mouth every 6 hours as needed for pain. enoxaparin (LOVENOX) 40 mg/0.4 mL Inject 0.4 mL subcutaneously every 24 hours for 21 days. Patient should start on February 08, 2024. cyanocobalamin (VITAMIN B-12) 100 mcg tab Take 100 mcg by mouth once daily. Ascorbic Acid (VITAMIN C) 1,000 mg tablet Take 1,000 mg by mouth once daily. hydrOXYzine HCl (ATARAX) 25 mg tablet Take 25 mg by mouth three times a day a (more content not included)... [facility] 02-20-2024 Note HNO ID: [id number] Author: CARLA SCHULTZ RN Service: ? Author Type: Registered Nurse Type: Progress Notes Filed: 02/20/2024 12:05 Note Text: ACM JAMILAH RN Patient identified by name and date of . Reason for review or outreach: Chart Review Jamilah Priority Emergency Department Utilization ED DIAGNOSES/REASON(S) FOR ED USE: OTHER FINDINGS/SUMMARY: [facility] E.D. visit Attributed incorrectly Patient Attributed To: MALLORY Payer: Mariana PERKINS Action Taken: No action needed Contact made with patient: No, Chart review only. Signature: Carla Schultz RN [facility] 02-20-2024 Note Patient Outreach ([facility]) ANN MARIE HILL ([id number]) 1940 F Date Time Provider Department 02/20/24 CARLA SCHULTZ During your visit today, we recorded the following information about you: Carla Schultz RN 02/20/2024 12:05 PM Signed ACM JAMILAH RN Patient identified by name and date of . Reason for review or outreach: Chart Review Jamilah Priority Emergency Department Utilization ED DIAGNOSES/REASON(S) FOR ED USE: OTHER FINDINGS/SUMMARY: [facility] E.D. visit Attributed incorrectly Patient Attributed To: ZIYADE Payer: Mariana PERKINS Action Taken: No action needed Contact made with patient: No, Chart review only. Signature: Carla Schultz RN Allergies As of Date: 02/20/2024 Noted Allergy Reaction YULI INHIBITORS 12/25/2023 16 - Unknown CIPROFLOXACIN 06/13/2019 16 - Unknown PENICILLINS 09/03/2013 4 - Hives SULFA (SULFONAMIDE ANTIBIOTICS) 06/13/2019 2 - Rash Date Reviewed: 02/08/2024 Reviewed by: Marta Escalona RN - Fully Assessed Reason for Visit: ALBA JAMILAH RN [[id number]] Cmt: E.DTanner Utilization Review per Payer Request. Prescriptions as of 02/20/2024 - acetaminophen (TYLENOL) 500 mg tablet Take 2 tablets by mouth every 6 hours as needed for pain. - enoxaparin (LOVENOX) 40 mg/0.4 mL Inject 0.4 mL subcutaneously every 24 hours for 21 days. Patient should start on February 08, 2024. - loratadine (CLARITIN) 10 mg tablet Take 10 mg by mouth once daily as needed. - cyanocobalamin (VITAMIN B-12) 100 mcg tab Take 100 mcg by mouth once daily. - Ascorbic Acid (VITAMIN C) 1,000 mg tablet Take 1,000 mg by mouth once daily. - hydrOXYzine HCl (ATARAX) 25 mg tablet Take 25 mg by mouth three times a day as needed for anxiety. - amLODIPine (NORVASC) 10 mg tablet Take 10 mg by mouth once daily. - vitamin E, dl,tocopheryl acet, (VITAMIN E, DL, ACETATE,) 45 mg (100 unit) capsule Take 45 mg by mouth once daily. - desvenlafaxine ER (PRISTIQ) 50 mg 24 hr tablet Take 50 mg by mouth once daily. - coQ10, ubiquinol, 100 mg cap Take [...] Take 2,000 Units by mouth once daily. Problem List As Of Date 02/20/2024 Noted Resolved ASCVD (arteriosclerotic cardiovascular disease)*07/07/2020 Hyperlipidemia [E78.5] 07/07/2020 Hypertension [I10] 07/07/2020 Late onset Alzheimer's disease with behavioral *07/07/2020 Comminuted left humeral fracture, closed, initi*12/25/2023 Dementia (HCC) [F03.90] 12/26/2023 UTI (urinary tract infection) [N39.0] 12/26/2023 Delirium [R41.0] 12/26/2023 Other female genital prolapse [N81.89] 12/26/2023 Hypokalemia [E87.6] 12/28/2023 Closed displaced fracture of left femoral neck *02/03/2024 02/09/2024 Obesity, Class I, BMI 30-34.9 [E66.9] 02/04/2024 Frailty syndrome in geriatric patient [R54] 02/05/2024 Pseudomonas aeruginosa infection [A49.8] 02/07/2024 Encounter Status:Closed by CARLA SCHULTZ on 02/20/24 [facility] 02-20-2024 History of Presen t illness Narrative Female Pelvic Medicine & Reconstructive Surgery Consult CHIEF COMPLAINT: Ann Marie Hill is a 83 year old female who presents for consultation requested by Self Referred for an opinion regarding Pelvic Organ Prolapse . HISTORY OF PRESENT ILLNESS: Ann Marie presents with daughter, Christos and , Michael. She suffers from Alzheimer's disease and currently resides at [facility] in [place]. She recently underwent surgery for a fractured hip. She has been wearing pessary (incontinence dish) but Christos is very opposed to continuing with these. She reports Ann Marie becomes extremely distressed with pelvic exams. The pessary was recently removed by general HISTORICAL SITE GUIDE. Christos strongly feels this a violation of her mother's body. Ann Marie has been prescribed vaginal estrogen cream but this is difficult to use as Ann Marie is not comfortable with the facility staff placing the cream. Michael had been placing the cream at home which Ann Marie was fine with. Michael would like Ann Marie to return home but that is unlikely given her health and dementia. Ann Marie is in a Broda chair today. Christos reports the biggest issue they face is Ann Marie having trouble emptying bladder. She has frequent UTIs which are being treated empirically by the facility. UTI symptoms usually present with a change/worsening of Ann Marie's cognition. Michael is POA. Medical and Symptom History: HISTORICAL SITE GUIDE HISTORY: Last Pap: NA; Last Mammogram: Her last mammogram was 2022. She has no history of an abnormal mammogram LMP: No LMP recorded. Patient is postmenopausal.; Menopause yes: Menstrual history: NA; Deliveries: History of third or fourth degree laceration: Yes Weight of largest baby: 8.0 Sexual function Sexually active: Not sexually active PFDI-20 (Completed by daughter, Christos) Do you: Usually experience pressure in the lower abdomen? Yes, moderately bothersome (3) Usually experience heaviness or dullness in the pelvic area? Yes, moderately bothersome (3) Usually have a bulge or something falling out that you can see or feel in your vaginal area? Yes, moderately bothersome (3) Ever have to push on the vagina or around the rectum to have or complete a bowel movement? No (0) Usually experience a feeling of incomplete bladder emptying? Yes, quite a bit bothersome (4) Ever have to push up on a bulge in the vaginal area with your fingers to start or complete urination? Yes, not at all bothersome (1) Feel you need to strain too hard to have a bowel movement? Yes, moderately bothersome (3) Feel you have not completely emptied your bowels at the end of a bowel movement? Yes, moderately bothersome (3) Usually lose stool beyond your control if your stool is well formed? No (0) Usually lose stool beyond your control if your stool is loose? No (0) Usually lose gas from the rectum beyond your control? No (0) Usually have pain when you pass your stool? No (0) Experience a strong sense of urgency and have to dai to the bathroom to have a bowel movement? No (0) Does part of your bowel ever pass through the rectum and bulge outside during or after a bowel movement? No (0) Usually experience frequent urination? Yes, quite a bit bothersome (4) Usually experience urine leakage associated with a feeling of urgency, that is, a strong sensation of needing to go to the bathroom? Yes, not at all bothersome (1) Usually experience urine leakage related to coughing, sneezing or laughing? Yes, quite a bit bothersome (4) Usually experience small amounts of urine leakage (that is, drops)? Yes, somewhat bothersome (2) Usually experience difficulty emptying your bladder? Yes, quite a bit bothersome (4) Usually experience pain or discomfort in the lower abdomen or genital region? Yes, quite a bit bothersome (4) Do you have pain associated with your prolapse (not pressure or fullness) Yes, what is your typical prolapse related pain on a scale of 0-10? 7 Where is your pain located? vagina PAST SURGICAL HISTORY Procedure Laterality Date REMOVAL GALLBLADDER REMV CATARACT EXTRACAP,INSERT LENS Bilateral VASCULAR ACCESS TEAM MID-LINE INSERTION (AK) 02/08/2024 PAST MEDICAL HISTORY Diagnosis Date Alzheimer disease (HCC) HTN (hypertension) Hyperlipidemia History reviewed. No pertinent family history. Current Outpatient Medications Medication Sig acetaminophen (TYLENOL) 500 mg tablet Take 2 tablets by mouth every 6 hours as needed for pain. enoxaparin (LOVENOX) 40 mg/0.4 mL Inject 0.4 mL subcutaneously every 24 hours for 21 days. Patient should start on February 08, 2024. cyanocobalamin (VITAMIN B-12) 100 mcg tab Take 100 mcg by mouth once daily. Ascorbic Acid (VITAMIN C) 1,000 mg tablet Take 1,000 mg by mouth once daily. hydrOXYzine HCl (ATARAX) 25 mg tablet Take 25 mg by mouth three times a day as needed for anxiety. amLODIPine (NORVASC) 10 mg tablet Take 10 mg by mouth once daily. vitamin E, dl,tocopheryl acet, (VITAMIN E, DL, ACETATE,) 45 mg (100 unit) capsule Take 45 mg by mouth once daily. desvenlafaxine ER (PRISTIQ) 50 mg 24 hr tablet Take 50 mg by mouth once daily. coQ10, ubiquinol, 100 mg cap Take 1 [...] Take 2,000 Units by mouth once daily. loratadine (CLARITIN) 10 mg tablet Take 10 mg by mouth once daily as needed. No current facility-administered medications for this visit. ALLERGIES Allergen Reactions Yuli Inhibitors Unknown Ciprofloxacin Unknown Nitrofurantoin [place]* Itching Penicillins Hives Sulfa (Sulfonamide * Rash SOCIAL HISTORY Social History Tobacco Use Smoking status: Never Smokeless tobacco: Never Substance Use Topics Alcohol use: Never Drug use: Never Occupation: retired Marital Status: REVIEW OF SYSTEMS General: N/A Skin: N/A Psychiatric: dementia Neurologic: N/A Endocrine: N/A Cardiovascular: N/A Hematologic/Lymphatic: N/A Respiratory: N/A Gastrointestinal: N/A Musculoskeletal: N/A I have confirmed and edited as necessary, the PFSH and ROS obtained by others. Helio Goff APRN.JUNIOR DATA ANALYST Tearer offered: patient accepted tube depatcher Celine Olivo MA OBJECTIVE: BP 118/72 Ht 5' 2 (1.58m) Wt 168 lb (76.2kg) BMI 30.72 kg/(m^2). Physical Exam Constitutional: BMI - Body mass index is 30.73 kg/m . General Appearance: Well appearing, alert, in no acute distress, well-hydrated, well nourished. and confused. In Broda chair. Skin: Not examined Lungs: Unlabored on room air Heart: Not examined Breasts: Deferred Abdomen: Deferred Pelvic: External Genitalia: deferred POP-Q: Prolapse Noted: exam deferred Vaginal epithelium: exam deferred PLAN: 1. Pelvic organ prolapse - Extensive discussion with Christos and Michael regarding POP, including treatment/management. Given Ann Marie's advanced Alzheimer's disease and distress with pelvic exams, I recommend conservative management and comfort measures. Advised she can be placed in a more recumbent position throughout the day to help reduce prolapse. This can be done in the Broda chair or in bed. 2. Incomplete bladder emptying - Likely secondary to POP. - As above #1. 3. Recurrent UTI - Likely secondary to above. - Discuss with nursing facility applying estrogen cream to urethra after shower or toileting when patient may be less aware of the application. No need to insert vaginally. - Recommend voiding every 2 hours. - May empirically treat UTI symptoms. - May consider daily suppressive antibiotic as well. I spent a total of 45 minutes on the date of the service which included preparing to see the patient, [id number] patient care, completing clinical documentation, and counseling and educating the patient/family/caregiver. My final recommendations will be communicated back to the requesting physician by way of shared Medical record or letter via US mail. Helio Goff APRN.JUNIOR DATA ANALYST documented in this encounter [facility] 02-20-2024 History of Presen t illness Narrative ACM JAMILAH RN Patient identified by name and date of . Reason for review or outreach: Chart Review Jamilah Priority Emergency Department Utilization ED DIAGNOSES/REASON(S) FOR ED USE: OTHER FINDINGS/SUMMARY: [facility] E.D. visit Attributed incorrectly Patient Attributed To: QAE Payer: Mariana PERKINS Action Taken: No action needed Contact made with patient: No, Chart review only. Signature: Carla Schultz RN documented in this encounter [facility] 02-12-2024 Note [facility] 02-11-2024 Note [facility] 02-10-2024 Note [facility] 02-10-2024 Plan of care note Images from the original note were not included. [facility] Outpatient Parenteral Antimicrobial Therapy (OPAT) Start Form Patient Info Patient MRN Patient Name Address Date of [id number] Ann Marie Hill [address] [place] [address] 1940 Start Date 02/10/2024 Physician Group [facility] Diagnosis Group Diagnosis Genitourinary: Cystitis Micro-organism IV Antibiotics Cefepime 1 gram IV every 12 hours STOP DATE: 02/12/2024 Lab Monitoring Plan/Orders CBC/diff every Monday/Monday while on Cefepime BMP every Monday/Monday while on Cefepime Pharmacy Consult Yes Cath Care Protocol Flush IV line with 10 mL of normal saline (0.9%) before and after each dose of medication or at a minimum once daily. Flush IV line with 10-20 mL of normal saline (0.9%) after lab draw. Provider Monitoring Treatment Course Alton Navarro III, MD Follow up Provider Follow up date/time Appointment type Alton Navarro III, MD In-person Address [address] [address] [facility] Work Phone: 02-10-2024 Miscellaneous Notes Images from the original note were not included. [facility] Outpatient Parenteral Antimicrobial Therapy (OPAT) Start Form Patient Info Patient MRN Patient Name Address Date of [id number] Ann Marie Hill [address] [place] [address] 1940 Start Date 02/10/2024 Physician Group [facility] Diagnosis Group Diagnosis Genitourinary: Cystitis Micro-organism IV Antibiotics Cefepime 1 gram IV every 12 hours STOP DATE: 02/12/2024 Lab Monitoring Plan/Orders CBC/diff every Monday/Monday while on Cefepime BMP every Monday/Monday while on Cefepime Pharmacy Consult Yes Cath Care Protocol Flush IV line with 10 mL of normal saline (0.9%) before and after each dose of medication or at a minimum once daily. Flush IV line with 10-20 mL of normal saline (0.9%) after lab draw. Provider Monitoring Treatment Course Alton Navarro III, MD Follow up Provider Follow up date/time Appointment type Alton Navarro III, MD In-person Address [address] [facility] [place] [id number] documented in this encounter [facility] 02-10-2024 Zackary [facility] 02-09-2024 Note [facility] 02-09-2024 Note HNO ID: [id number] Author: LENA DEE APRN.JUNIOR DATA ANALYST Service: Orthopaedic Surgery Author Type: Nurse Practitioner Type: Plan of Care Filed: 02/09/2024 09:26 Note Text: Hypokalemia-mild -replace and repeat BMP at facility in 3 days [facility] 02-09-2024 Note [facility] 02-08-2024 Note [facility] 02-08-2024 Note [facility] 02-07-2024 Note [facility] 02-07-2024 Note [facility] 02-06-2024 Note [facility] 02[facility]06-2024 Note [facility] 02-06-2024 Note [facility] 02-05-2024 Note [facility] 02-05-2024 Note [facility] 02-05-2024 Note [facility] 02-04-2024 Note [facility] 02-04-2024 Note [facility] 02-04-2024 Note [facility] 01-27-2024 Note Addended by: ZO BLACKMON on: 01/30/2024 11:34 AM Modules accepted: [facility] 01-27-2024 History of Presen t illness Narrative Images from the original note were not included. [facility] [address] [place] [id number] Dept: [phone] Dept Loc: [phone] Subjective Ann Marie Hill is a 83 y.o. year old who presents to the office with the following complaint(s): No chief complaint on file. Subjective Patient was evaluated at this urgent care yesterday on 01/26/2024 for dysuric symptoms and slight mental status change. is caregiver and is patient's historian. dropped off urine specimen as requested by provider. : Review of Systems Allergies Allergen Reactions Yuli Inhibitors Other Reaction(s): Unknown Ciprofloxacin Other Reaction(s): Unknown, Unknown Nitrofurantoin Itching Penicillins Hives and Rash Other Reaction(s): Unknown Sulfa Antibiotics Rash Other Reaction(s): nausea/sick Current Outpatient Medications on File Prior to Visit Medication Sig Dispense Refill amLODIPine (Norvasc) 10 MG tablet Take 10 mg by mouth in the morning. ascorbic acid (Vitamin C) 1000 MG tablet Take 1,000 mg by mouth in the morning. aspirin 81 MG EC tablet Take 81 mg by mouth in the morning. carvedilol (Coreg) 12.5 MG tablet Take by mouth. cholecalciferol (Vitamin D-3) 50 MCG (2000 UT) tablet Take 2,000 Units by mouth in the morning. cyanocobalamin (Vitamin B-12) 100 MCG tablet Take 100 mcg by mouth in the morning. desvenlafaxine (Pristiq) 50 MG 24 hr tablet Take 50 mg by mouth in the morning. hydrOXYzine HCl (Atarax) 25 MG tablet Take 25 mg by mouth every 8 hours as needed. loratadine (Claritin) 10 MG tablet Take 10 mg by mouth in the morning. potassium chloride CR (Klor-Con M20) 20 MEQ ER tablet Take 40 mEq by mouth in the morning. rosuvastatin (Crestor) 40 MG tablet Take 40 mg by mouth in the morning. Vitamin E 45 MG (100 UNIT) capsule Take 45 mg by mouth in the morning. No current facility-administered medications on file prior to visit. 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 Physical Exam Assessment/Plan 1. Acute cystitis without hematuria - nitrofurantoin, macrocrystal-monohydrate, (Macrobid) 100 MG capsule; Take 1 capsule (100 mg) by mouth 2 times daily for 7 days., Starting 01/27/2024, Until 02/03/2024, Normal 2. Dysuria - Urine culture - AMB POC URINALYSIS DIP STICK AUTO W/O MICRO Urinalysis performed and was positive for blood and leukocytes. Based on patient's symptoms and abnormal urinalysis suspect acute cystitis. Will start treatment with Macrobid twice daily for 7 days. Will send urine for culture and notify patient and caregiver of results and if treatment adjustment is required. Caregiver notified. Follow-up: No follow-ups on file. INGRID Matthew CNP 01/27/2024 12:25 PM documented in this encounter [facility] 01-27-2024 History of Presen t illness Narrative Images from the original note were not included. [facility] [address] [place] [phone] Dept: [phone] Dept Loc: [phone] Subjective Ann Marie Hill is a 83 y.o. year old who presents to the office with the following complaint(s): No chief complaint on file. Subjective Patient was evaluated at this urgent care yesterday on 01/26/2024 for dysuric symptoms and slight mental status change. is caregiver and is patient's historian. dropped off urine specimen as requested by provider. : Review of Systems Allergies Allergen Reactions Yuli Inhibitors Other Reaction(s): Unknown Ciprofloxacin Other Reaction(s): Unknown, Unknown Nitrofurantoin Itching Penicillins Hives and Rash Other Reaction(s): Unknown Sulfa Antibiotics Rash Other Reaction(s): nausea/sick Current Outpatient Medications on File Prior to Visit Medication Sig Dispense Refill amLODIPine (Norvasc) 10 MG tablet Take 10 mg by mouth in the morning. ascorbic acid (Vitamin C) 1000 MG tablet Take 1,000 mg by mouth in the morning. aspirin 81 MG EC tablet Take 81 mg by mouth in the morning. carvedilol (Coreg) 12.5 MG tablet Take by mouth. cholecalciferol (Vitamin D-3) 50 MCG (2000 UT) tablet Take 2,000 Units by mouth in the morning. cyanocobalamin (Vitamin B-12) 100 MCG tablet Take 100 mcg by mouth in the morning. desvenlafaxine (Pristiq) 50 MG 24 hr tablet Take 50 mg by mouth in the morning. hydrOXYzine HCl (Atarax) 25 MG tablet Take 25 mg by mouth every 8 hours as needed. loratadine (Claritin) 10 MG tablet Take 10 mg by mouth in the morning. potassium chloride CR (Klor-Con M20) 20 MEQ ER tablet Take 40 mEq by mouth in the morning. rosuvastatin (Crestor) 40 MG tablet Take 40 mg by mouth in the morning. Vitamin E 45 MG (100 UNIT) capsule Take 45 mg by mouth in the morning. No current facility-administered medications on file prior to visit. 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 Physical Exam Assessment/Plan 1. Acute cystitis without hematuria - nitrofurantoin, macrocrystal-monohydrate, (Macrobid) 100 MG capsule; Take 1 capsule (100 mg) by mouth 2 times daily for 7 days., Starting 01/27/2024, Until 02/03/2024, Normal 2. Dysuria - Urine culture - AMB POC URINALYSIS DIP STICK AUTO W/O MICRO Urinalysis performed and was positive for blood and leukocytes. Based on patient's symptoms and abnormal urinalysis suspect acute cystitis. Will start treatment with Macrobid twice daily for 7 days. Will send urine for culture and notify patient and caregiver of results and if treatment adjustment is required. Caregiver notified. Follow-up: No follow-ups on file. INGRID Matthew CNP 01/27/2024 12:25 PM documented in this encounter [facility] 01-27-2024 Miscellaneous Notes Addended by: ZO BLACKMON on: 01/30/2024 11:34 AM Modules accepted: Orders documented in this encounter [facility] 01-27-2024 Note Addended by: ZO BLACKMON on: 01/30/2024 11:34 AM Modules accepted: Orders [facility] 01-26-2024 History of Presen t illness Narrative Images from the original note were not included. [facility] [id number] Dept: [phone] Dept Loc: [phone] Subjective Ann Marie Hill is a 83 y.o. year old female who presents to the office with the following complaint(s): Chief Complaint Patient presents with UTI UTI x2-3 weeks. Higher frequency. Burning since today. HPI Patient presents urgent care today with for complaints of burning with urination that started today. states that patient has had frequency for the last couple weeks. expresses that it is difficult as his has dementia and sundowners. requesting urinalysis be completed to determine if patient has a UTI. states she has been acting appropriately otherwise, has been more agitated/anxious-slightly more confused than normal. Review of Systems Unable to perform ROS: Dementia Constitutional: Negative for activity change and fever. Gastrointestinal: Negative for vomiting. Genitourinary: Positive for dysuria ( states patient complained of burning earlier.). Negative for frequency. Allergies Allergen Reactions Yuli Inhibitors Other Reaction(s): Unknown Ciprofloxacin Other Reaction(s): Unknown, Unknown Nitrofurantoin Itching Penicillins Hives and Rash Other Reaction(s): Unknown Sulfa Antibiotics Rash Other Reaction(s): nausea/sick No past medical history on file. No past surgical history on file. No family history on file. Social History Socioeconomic History Marital status: Tobacco Use Smoking status: Never Current Outpatient Medications on File Prior to Visit Medication Sig Dispense Refill amLODIPine (Norvasc) 10 MG tablet Take 10 mg by mouth in the morning. ascorbic acid (Vitamin C) 1000 MG tablet Take 1,000 mg by mouth in the morning. aspirin 81 MG EC tablet Take 81 mg by mouth in the morning. carvedilol (Coreg) 12.5 MG tablet Take by mouth. cholecalciferol (Vitamin D-3) 50 MCG (2000 UT) tablet Take 2,000 Units by mouth in the morning. cyanocobalamin (Vitamin B-12) 100 MCG tablet Take 100 mcg by mouth in the morning. desvenlafaxine (Pristiq) 50 MG 24 hr tablet Take 50 mg by mouth in the morning. hydrOXYzine HCl (Atarax) 25 MG tablet Take 25 mg by mouth every 8 hours as needed. loratadine (Claritin) 10 MG tablet Take 10 mg by mouth in the morning. potassium chloride CR (Klor-Con M20) 20 MEQ ER tablet Take 40 mEq by mouth in the morning. rosuvastatin (Crestor) 40 MG tablet Take 40 mg by mouth in the morning. Vitamin E 45 MG (100 UNIT) capsule Take 45 mg by mouth in the morning. No current facility-administered medications on file prior to visit. Objective BP (!) 140/68 (BP Location: Right arm, Patient Position: Sitting) Pulse 94 Temp 36.4 C (97.5 F) Wt 168 lb (76.2 kg) SpO2 97% Physical Exam HENT: Head: Normocephalic. Mouth/Throat: Mouth: Mucous membranes are moist. Eyes: Pupils: Pupils are equal, round, and reactive to light. Pulmonary: Effort: Pulmonary effort is normal. No respiratory distress. Abdominal: Palpations: Abdomen is soft. There is no mass. Tenderness: There is no abdominal tenderness. Skin: General: Skin is warm and dry. Neurological: Mental Status: She is alert. Mental status is at baseline. Psychiatric: Mood and Affect: Mood normal. Assessment: 1. Dysuria Ann Marie was seen today for uti. Diagnoses and all orders for this visit: Dysuria (Primary) Multiple attempts were made to get urine sample from patient. First attempt-patient put paper towels in urine sample. Second attempt-patient had bowel movement Third attempt-I did go in bathroom with patient, bowel movement with no urine. Patient was given multiple bottles of water during visit. Upon patient having third attempt without having urine sample provided-I did speak with patient's . questioning bringing sample in. was given hat, wipe, specimen cup. I explained to that upon patient giving sample he is to put it in specimen cup and put it in the refrigerator. He can bring sample tomorrow-sample given in the morning would be recommended. I Splane to patient's I do not want to start medication today as I do not want to skew results. Patient's has been understanding. New or worsening symptoms prior to bring sample-ER for further evaluation. appreciative and plan of care. (Please note that portions of this note may have been completed with a voice recognition program. Efforts were made to edit the dictations but occasionally words aremis-transcribed.) GAMAL Mohan 01/26/24 documented in this encounter [facility] 01-24-2024 Instructions Mayank Hanson MD - 01/24/2024 11:39 AM EDT Sling is for comfort only, may remove as desired. Weight bearing left upper extremity one pound. Active and active-assist range of motion left shoulder (may practice internal and external rotation and stop if painful; may practice touching face with left hand). No forced passive range of motion. documented in this encounter [facility] 01-24-2024 Note [facility] 01-24-2024 History of Presen t illness Narrative Images from the original note were not included. ORTHOPAEDIC OFFICE NOTE CHIEF COMPLAINT: left shoulder injury HISTORY OF PRESENT ILLNESS: Ann Marie Hill is a 83 year old female who presents for evaluation of a left shoulder injury sustained during a fall and seen in the emergency department 12/25/2023. Clinical examination and imaging studies demonstrated a left proximal humerus fracture. The patient was initially managed conservatively; she was transferred to [facility] for placement admission and treated by a local orthopedic surgeon. Subsequently, the patient has been discharged to home with at an assisted care facility. She has had no orthopedic follow-up to date. Reportedly using a sling daily and nonweightbearing of the left upper extremity. Patient is a poor historian secondary to baseline dementia and is currently comfortable. Accompanied by . He indicates she will intermittently use the extremity as tolerated, including recently crawling on the floor and placing full weight on the left upper extremity. Reviewed nursing note and current pain scale. PAST MEDICAL HISTORY Diagnosis Date Alzheimer disease (HCC) HTN (hypertension) Hyperlipidemia PAST SURGICAL HISTORY Procedure Laterality Date REMOVAL GALLBLADDER REMV CATARACT EXTRACAP,INSERT LENS Bilateral History reviewed. No pertinent family history. Social History Tobacco Use Smoking status: Never Smokeless tobacco: Never Substance Use Topics Alcohol use: Never Drug use: Never MEDICATIONS: Current Outpatient Medications Medication Sig potassium chloride ER (KLOR-CON) 20 mEq tablet Take 1 tablet by mouth once daily for 7 days. loratadine (CLARITIN) 10 mg tablet Take 10 mg by mouth once daily. PHOSPHATIDYLSERINE ORAL Take 1 capsule by mouth once daily. potassium chloride ER (KLOR-CON) 20 mEq tablet Take 40 mEq by mouth once daily. cyanocobalamin (VITAMIN B-12) 100 mcg tab Take 100 mcg by mouth once daily. Ascorbic Acid (VITAMIN C) 1,000 mg tablet Take 1,000 mg by mouth once daily. hydrOXYzine HCl (ATARAX) 25 mg tablet Take 25 mg by mouth three times a day as needed for anxiety. amLODIPine (NORVASC) 10 mg tablet Take 10 mg by mouth once daily. vitamin E, dl,tocopheryl acet, (VITAMIN E, DL, ACETATE,) 45 mg (100 unit) capsule Take 45 mg by mouth once daily. desvenlafaxine ER (PRISTIQ) 50 mg 24 hr tablet Take 50 mg by mouth once daily. coQ10, ubiquinol, 100 mg cap Take 1 [...] Take 2,000 Units by mouth once daily. No current facility-administered medications for this visit. ALLERGIES: ALLERGIES Allergen Reactions Yuli Inhibitors Unknown Ciprofloxacin Unknown Penicillins Hives Sulfa (Sulfonamide * Rash PHYSICAL EXAMINATION: Resp 16 Ht 5' 4 (1.63m) Wt 165 lb (74.8kg) BMI 28.31 kg/(m^2). General Appearance: Well appearing, alert, in no acute distress, well-hydrated, well nourished. Answers some questions appropriately. Skin: Skin color, texture, turgor normal, no suspicious rashes or lesions. Extremities: No deformity left shoulder. No open wound laceration or abrasion. No edema. No ecchymosis. Mild tenderness to palpation over the lateral deltoid. Left arm and forearm compartments soft and compressible. Passive internal rotation left shoulder to full and external rotation to approximately 30 degrees with hesitancy. Able to touch face with left hand. Unable to forward flex shoulder actively past 50 degrees. Spontaneous movement of wrist hand and digits well. Peripheral Pulses: Normal. Neurologic: Intact light touch sensation left upper extremity. IMAGES: Recent Results (from the past 36 hour(s)) XR SHOULDER LIMITED 2V AP/TRUE AP LEFT Narrative Two views left shoulder demonstrate a comminuted proximal humerus fracture with a displaced valgus position. The articular surface is facing superiorly compared to initial injury films 12/25/2023. Bone activity within the comminuted region evident. No new fracture identified. ASSESSMENT AND PLAN: 1. Other closed displaced fracture of proximal end of left humerus, initial encounter - ICD9: 812.09, ICD10: S42.292A Functional Plan: Sling is for comfort only, may remove as desired. Weight bearing left upper extremity one pound. Active and active-assist range of motion left shoulder (may practice internal and external rotation and stop if painful; may practice touching face with left hand). No forced passive range of motion. Assistance Devices: Sling as above. Physical/Occupational Therapy: Administered instructions as above for therapy at her facility. Wound Care: None. Pain Control: No change in pain regimen recommended this office visit. Fragility Fracture: On supplementation. Additional: None. Return for imaging and reevaluation in 4 weeks. Mayank Hanson MD Medical Decision Making: Problems: Low: Acute, uncomplicated illness or injury Data: Unique source(s) for external note(s) reviewed: 3+ Unique test result(s) reviewed: 1 Unique test(s) ordered: 1 Risk: Low: Low risk from testing/treatment Medical Decision Making Level: 3 - Low documented in this encounter [facility] 01-17-2024 Miscellaneous Notes Images from the original note were not included. Mayank Hanson MD You 3 hours ago (11:00 AM) Yes, I can see next Monday if ok. NJD You Mayank Hanson MD 5 hours ago (9:15 AM) CR This patient was scheduled to see Dr. Morataya but would really like to be seen at the [place] office. Would you be willing to see this patient? She is willing to come to [facility] to be seen first and then go back out to the [place] office. Just let me know. Thanks, Arvin Pena MD You 7 days ago That is fine with me You Arvin Morataya MD 7 days ago CR This patient was to follow up with you but only wants to be seen at the [place]. Do you care if I ask Dr. Hanson as he goes out to the [place] office? Just let me know. Thanks, Zo Called and spoke with the patient's daughter and got the patient scheduled. She agreed to the time, date and location. Sarah Hill January 17, 2024 2:17 PM ----- Message from Mora Mann sent at 01/08/2024 8:08 AM EDT ----- Regarding: Orthopedics / Open Shoulder: Fracture Broken / Recent ED Visit Orthopedics / Open Shoulder: Fracture Broken / Recent ED Visit Patient has been identified by name and Date of (Y/N): Y Patient: Ann Marie Hill Date of : 1940 Previous Provider Seen: NA Body Part(s) Identified: Left Shoulder Diagnosis/Reason For Visit: Fracture Reason for the call/escalation: Pt was at ER 2 weeks ago, had an appointment with Rafia at [facility] that ended up being canceled. Dtr said pt is living at [facility] and would really like pt to see a provider at the [facility] as the facility is right by [facility] and easier for family to transport pt. If reason for call/escalation is discharge from ED/ER or Hospital, which facility was the patient seen at: [facility] Was an appointment scheduled (Y/N): N Person calling if other than patient: Christos Whitaker Return call to if other than patient: Christos Whitaker Best contact number: [phone] Thank you, Mora Mann January 08, 2024 8:08 AM documented in this encounter [facility] 01-01-2024 Note HNO ID: [id number] Author: AKI COOK MD Service: Hospital Medicine Author Type: Physician Type: Progress Notes Filed: 01/01/2024 07:45 Note Text: DEPARTMENT OF HOSPITAL MEDICINE PROGRESS NOTE SERVICE DATE: 01/01/2024 SERVICE TIME: 7:44 AM Hospital Medicine/Primary Attending: Aki Cook MD NIGHT AND WEEKEND COVERAGE: [place] COVERAGE: Days: [phone], please page attending physician. Nights: [phone], please page [facility] Night coverage pager [phone]. Subjective INTERVAL HPI: - No complaints this AM - Awaiting precert to [facility] Current Facility-Administered Medications Medication Dose Route Frequency polyethylene glycol 3350 17 g packet 17 g ORAL DAILY PRN benzocaine-menthol 1 Lozenge (CEPACOL) 1 Lozenge MUCOUS MEMBRANE (TOPICAL MOUTH AND THROAT) q 2 H PRN benzonatate 100 mg cap(s) (TESSALON PERLE) 100 mg ORAL TID PRN calcium carbonate 1,000 mg chewable tab(s) (TUMS) 1,000 mg ORAL TID PRN melatonin 3 mg tab(s) 3 mg ORAL AT BEDTIME PRN prochlorperazine 10 mg injection (COMPAZINE) 10 mg INTRAVENOUS q 6 H PRN albuterol HFA 90 mcg/actuation 2 Puff (PROVENTIL HFA, VENTOLIN HFA) 2 Puff INHALATION q 4 H PRN amLODIPine 10 mg tab(s) (NORVASC) 10 mg ORAL DAILY aspirin, enteric coated 81 mg tab(s) 81 mg ORAL DAILY carvedilol 12.5 mg tab(s) (COREG) 12.5 mg ORAL BID cholecalciferol 2,000 Units tab(s) (VITAMIN D3) 2,000 Units ORAL DAILY ascorbic acid (vitamin C) 1,000 mg tab(s) (VITAMIN C) 1,000 mg ORAL DAILY cyanocobalamin 100 mcg tab(s) (VITAMIN B-12) 100 mcg ORAL DAILY desvenlafaxine ER 50 mg tab(s) (PRISTIQ) 50 mg ORAL DAILY rosuvastatin 40 mg tab(s) (CRESTOR) 40 mg ORAL DAILY oxyCODONE IR 2.5 mg tab(s) (ROXICODONE) 2.5 mg ORAL q 6 H PRN potassium chloride ER 40 mEq tab(s) (KLOR-CON) 40 mEq ORAL DAILY mupirocin 2 % ointment (BACTROBAN) TOPICAL TID acetaminophen 650 mg tab(s) (TYLENOL) 650 mg ORAL q 6 H Objective PHYSICAL EXAM: BP 167/66 Pulse 80 Temp (Src) 98.1 (Oral) Resp 18 Ht 5' 4 (1.63m) Wt 165 lb 12.6 oz (75.2kg) SpO2 97% BMI 28.44 kg/(m2). O2 Therapy: Room Air Physical Exam Performed GENERAL: Alert, no distress, cooperative SKIN: Skin color, texture, turgor normal. No rashes or lesions. HEAD/SINUSES: No significant findings EYES: EOMI BACK: Back symmetric, Normal curvature, ROM normal LUNGS: Lungs clear to auscultation, Good diaphragmatic excursion CARDIAC: Normal S1 and S2; no rubs, murmurs, or gallops ABDOMEN: Abdomen soft, non-tender, BS normal, No masses or organomegaly EXTREMITIES: LUE in sling NEURO: Baseline reduced cognition, motor function, and cranial nerves III-XII Lines, Drains, and Airways Line Duration Peripheral 12/25/23 1830 Right Antecubital 18 Gauge 6 days Reviewed lines and needs to be continued: REASONS: Electrolyte replacement DATA: Diagnostic tests reviewed for today's visit: Most recent labs Most recent imaging Most recent EKG Assessment/Plan Problem List Comminuted left humeral fracture, closed, initial encounter (POA: Yes) Hypertension (POA: Yes) Dementia (HCC) (POA: Yes) UTI (urinary tract infection) (POA: Status not on file) Delirium (POA: Yes) Other female genital prolapse (POA: Yes) Hypokalemia (POA: Yes) HOSPITAL COURSE: Ann Marie Hill is a 83 year old female with a PMH of Alzheimer's Dementia, HTN presenting with a fall and comminuted/impacted, mildly displaced left humeral fracture. Patient seen by ortho, recommended protectioni in sling, limited use and rehab for 2-3 weeks to increase ROM. We did have Gynecology placed for concern for prolapse. They recommend evaluation with Urogyn for further management as an outpatient. Discharge pending precert to SNF. Medication and Non-Pharmacologic VTE Prophylaxis/Anticoagulants Anticoagulant AND Antiplatelet Medications (From admission, onward) Start Dose Route Frequency Last Action Ordered Stop 12/26/23 0900 aspirin, enteric coated 81 mg tab(s) 81 mg ORAL DAILY Given, 12/30 0822 12/26/23 0432 -- 12/26/23 0000 activity - mobilize patient (al,ak) VTE Prophylaxis: VTE prophylaxis appropriate Disposition: Extended Care Facility Plan of care discussed with Provider, RN, Patient SIGNATURE: Aki Cook MD PATIENT NAME: Ann Marie Hill DATE: December 31, 2023 TIME: 11:37 AM [facility] 12-31-2023 Note HNO ID: [id number] Author: AKI COOK MD Service: Hospital Medicine Author Type: Physician Type: Progress Notes Filed: 12/31/2023 11:37 Note Text: DEPARTMENT OF HOSPITAL MEDICINE PROGRESS NOTE SERVICE DATE: 12/31/2023 SERVICE TIME: 11:37 AM Hospital Medicine/Primary Attending: Aki Cook MD NIGHT AND WEEKEND COVERAGE: [place] COVERAGE: Days: [phone], please page attending physician. Nights: [phone], please page [facility] Night coverage pager [phone]. Subjective INTERVAL HPI: - No complaints this AM - Awaiting precert to SNF Current Facility-Administered Medications Medication Dose Route Frequency polyethylene glycol 3350 17 g packet 17 g ORAL DAILY PRN benzocaine-menthol 1 Lozenge (CEPACOL) 1 Lozenge MUCOUS MEMBRANE (TOPICAL MOUTH AND THROAT) q 2 H PRN benzonatate 100 mg cap(s) (TESSALON PERLE) 100 mg ORAL TID PRN calcium carbonate 1,000 mg chewable tab(s) (TUMS) 1,000 mg ORAL TID PRN melatonin 3 mg tab(s) 3 mg ORAL AT BEDTIME PRN prochlorperazine 10 mg injection (COMPAZINE) 10 mg INTRAVENOUS q 6 H PRN albuterol HFA 90 mcg/actuation 2 Puff (PROVENTIL HFA, VENTOLIN HFA) 2 Puff INHALATION q 4 H PRN amLODIPine 10 mg tab(s) (NORVASC) 10 mg ORAL DAILY aspirin, enteric coated 81 mg tab(s) 81 mg ORAL DAILY carvedilol 12.5 mg tab(s) (COREG) 12.5 mg ORAL BID cholecalciferol 2,000 Units tab(s) (VITAMIN D3) 2,000 Units ORAL DAILY ascorbic acid (vitamin C) 1,000 mg tab(s) (VITAMIN C) 1,000 mg ORAL DAILY cyanocobalamin 100 mcg tab(s) (VITAMIN B-12) 100 mcg ORAL DAILY desvenlafaxine ER 50 mg tab(s) (PRISTIQ) 50 mg ORAL DAILY rosuvastatin 40 mg tab(s) (CRESTOR) 40 mg ORAL DAILY oxyCODONE IR 2.5 mg tab(s) (ROXICODONE) 2.5 mg ORAL q 6 H PRN potassium chloride ER 40 mEq tab(s) (KLOR-CON) 40 mEq ORAL DAILY mupirocin 2 % ointment (BACTROBAN) TOPICAL TID acetaminophen 650 mg tab(s) (TYLENOL) 650 mg ORAL q 6 H Objective PHYSICAL EXAM: BP 104/53 Pulse 84 Temp (Src) 98.1 (Tympanic) Resp 16 Ht 5' 4 (1.63m) Wt 168 lb (76.2kg) SpO2 96% BMI 28.82 kg/(m2). O2 Therapy: Room Air Physical Exam Performed GENERAL: Alert, no distress, cooperative SKIN: Skin color, texture, turgor normal. No rashes or lesions. HEAD/SINUSES: No significant findings EYES: EOMI BACK: Back symmetric, Normal curvature, ROM normal LUNGS: Lungs clear to auscultation, Good diaphragmatic excursion CARDIAC: Normal S1 and S2; no rubs, murmurs, or gallops ABDOMEN: Abdomen soft, non-tender, BS normal, No masses or organomegaly EXTREMITIES: LUE in sling NEURO: Baseline reduced cognition, motor function, and cranial nerves III-XII Lines, Drains, and Airways Line Duration Peripheral 12/25/23 1830 Right Antecubital 18 Gauge 5 days Reviewed lines and needs to be continued: REASONS: Electrolyte replacement DATA: Diagnostic tests reviewed for today's visit: Most recent labs Most recent imaging Most recent EKG Assessment/Plan Problem List Comminuted left humeral fracture, closed, initial encounter (POA: Yes) Hypertension (POA: Yes) Dementia (HCC) (POA: Yes) UTI (urinary tract infection) (POA: Status not on file) Delirium (POA: Yes) Other female genital prolapse (POA: Yes) Hypokalemia (POA: Yes) HOSPITAL COURSE: Ann Marie Hill is a 83 year old female with a PMH of Alzheimer's Dementia, HTN presenting with a fall and comminuted/impacted, mildly displaced left humeral fracture. Awaiting discharge to SNF. Comminuted Left Humeral Fracture - Left arm in swing - Pain control - Ortho consult - PT/OT Alzheimer's Dementia - Frequent reorientation - Delirium protocol - Maintain sleep-wake cycle Prolapse - Outpatient urogyn consult Hypertension - Amlodipine - Coreg Hyperlipidemia - Crestor Primary Prevention - Aspirin Medication and Non-Pharmacologic VTE Prophylaxis/Anticoagulants Anticoagulant AND Antiplatelet Medications (From admission, onward) Start Dose Route Frequency Last Action Ordered Stop 12/26/23 0900 aspirin, enteric coated 81 mg tab(s) 81 mg ORAL DAILY Given, 12/30 0822 12/26/23 0432 -- 12/26/23 0000 activity - mobilize patient (al,oh) VTE Prophylaxis: VTE prophylaxis appropriate Disposition: Extended Care Facility Plan of care discussed with Provider, RN, Patient SIGNATURE: Aki Cook MD PATIENT NAME: Ann Marie Hill DATE: December 31, 2023 TIME: 11:37 AM [facility] 12-30-2023 Note HNO ID: [id number] Author: AKI COOK MD Service: Hospital Medicine Author Type: Physician Type: Progress Notes Filed: 12/30/2023 08:01 Note Text: DEPARTMENT OF HOSPITAL MEDICINE PROGRESS NOTE SERVICE DATE: 12/30/2023 SERVICE TIME: 7:58 AM Hospital Medicine/Primary Attending: Aki Cook MD NIGHT AND WEEKEND COVERAGE: [place] COVERAGE: Days: [phone], please page attending physician. Nights: [phone], please page [facility] Night coverage pager [phone]. Subjective INTERVAL HPI: - No complaints this AM - Awaiting precert to [facility] Current Facility-Administered Medications Medication Dose Route Frequency polyethylene glycol 3350 17 g packet 17 g ORAL DAILY PRN benzocaine-menthol 1 Lozenge (CEPACOL) 1 Lozenge MUCOUS MEMBRANE (TOPICAL MOUTH AND THROAT) q 2 H PRN benzonatate 100 mg cap(s) (TESSALON PERLE) 100 mg ORAL TID PRN calcium carbonate 1,000 mg chewable tab(s) (TUMS) 1,000 mg ORAL TID PRN melatonin 3 mg tab(s) 3 mg ORAL AT BEDTIME PRN prochlorperazine 10 mg injection (COMPAZINE) 10 mg INTRAVENOUS q 6 H PRN albuterol HFA 90 mcg/actuation 2 Puff (PROVENTIL HFA, VENTOLIN HFA) 2 Puff INHALATION q 4 H PRN amLODIPine 10 mg tab(s) (NORVASC) 10 mg ORAL DAILY aspirin, enteric coated 81 mg tab(s) 81 mg ORAL DAILY carvedilol 12.5 mg tab(s) (COREG) 12.5 mg ORAL BID cholecalciferol 2,000 Units tab(s) (VITAMIN D3) 2,000 Units ORAL DAILY ascorbic acid (vitamin C) 1,000 mg tab(s) (VITAMIN C) 1,000 mg ORAL DAILY cyanocobalamin 100 mcg tab(s) (VITAMIN B-12) 100 mcg ORAL DAILY desvenlafaxine ER 50 mg tab(s) (PRISTIQ) 50 mg ORAL DAILY rosuvastatin 40 mg tab(s) (CRESTOR) 40 mg ORAL DAILY oxyCODONE IR 2.5 mg tab(s) (ROXICODONE) 2.5 mg ORAL q 6 H PRN acetaminophen 650 mg tab(s) (TYLENOL) 650 mg ORAL q 6 H potassium chloride ER 40 mEq tab(s) (KLOR-CON) 40 mEq ORAL DAILY mupirocin 2 % ointment (BACTROBAN) TOPICAL TID Objective PHYSICAL EXAM: BP 137/62 Pulse 93 Temp (Src) 98.6 (Axillary) Resp 20 Ht 5' 4 (1.63m) Wt 168 lb (76.2kg) SpO2 93% BMI 28.82 kg/(m2). O2 Therapy: Room Air Physical Exam Performed GENERAL: Alert, no distress, cooperative SKIN: Skin color, texture, turgor normal. No rashes or lesions. HEAD/SINUSES: No significant findings EYES: EOMI BACK: Back symmetric, Normal curvature, ROM normal LUNGS: Lungs clear to auscultation, Good diaphragmatic excursion CARDIAC: Normal S1 and S2; no rubs, murmurs, or gallops ABDOMEN: Abdomen soft, non-tender, BS normal, No masses or organomegaly EXTREMITIES: LUE in sling NEURO: Baseline reduced cognition, motor function, and cranial nerves III-XII Lines, Drains, and Airways Line Duration Peripheral 12/25/23 1830 Right Antecubital 18 Gauge 4 days Reviewed lines and needs to be continued: REASONS: Electrolyte replacement DATA: Diagnostic tests reviewed for today's visit: Most recent labs Most recent imaging Most recent EKG Assessment/Plan Problem List Comminuted left humeral fracture, closed, initial encounter (POA: Yes) Hypertension (POA: Yes) Dementia (HCC) (POA: Yes) UTI (urinary tract infection) (POA: Status not on file) Delirium (POA: Yes) Other female genital prolapse (POA: Yes) Hypokalemia (POA: Yes) HOSPITAL COURSE: Ann Marie Hill is a 83 year old female with a PMH of Alzheimer's Dementia, HTN presenting with a fall and comminuted/impacted, mildly displaced left humeral fracture. Awaiting discharge to SNF. Comminuted Left Humeral Fracture - Left arm in swing - Pain control - Ortho consult - PT/OT Alzheimer's Dementia - Frequent reorientation - Delirium protocol - Maintain sleep-wake cycle Prolapse - Outpatient urogyn consult Hypertension - Amlodipine - Coreg Hyperlipidemia - Crestor Primary Prevention - Aspirin Medication and Non-Pharmacologic VTE Prophylaxis/Anticoagulants Anticoagulant AND Antiplatelet Medications (From admission, onward) Start Dose Route Frequency Last Action Ordered Stop 12/26/23 0900 aspirin, enteric coated 81 mg tab(s) 81 mg ORAL DAILY Given, 12/28 1037 12/26/23 0432 -- 12/26/23 0000 activity - mobilize patient (fl,oh) VTE Prophylaxis: VTE prophylaxis appropriate Disposition: Extended Care Facility Plan of care discussed with Provider, RN, Patient SIGNATURE: Aki Cook MD PATIENT NAME: Ann Marie Hill DATE: December 30, 2023 TIME: 7:58 AM [facility] 12-29-2023 Note HNO ID: [id number] Author: EVAN DE LA GARZA MD Service: Hospital Medicine Author Type: Physician Type: Progress Notes Filed: 12/29/2023 13:28 Note Text: DEPARTMENT OF HOSPITAL MEDICINE PROGRESS NOTE SERVICE DATE: 12/29/2023 SERVICE TIME: 8:21 AM Hospital Medicine/Primary Attending: Evan De La Garza MD NIGHT AND WEEKEND COVERAGE: [place] COVERAGE: Nights: [phone], please page [facility] [phone]. Reason for Admission: Fall with comminuted shoulder fracture, left INTERVAL HPI: Discussion with patient and family patient stable at this time. 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 Discussed with family that the Zangmeister on the thorax usually are not malignant and is not growing over several years and the patient could have it removed by hand surgeon or plastic surgeon if he wished CHECK LIST Goal for glucose 100-180 At goal Cultures negative thus far other than those noted:None Vital signs: Reviewed labs Problem list reviewed Medication list reviewed Reviewed new notes Probable discharge-pending precertification which will probably come on 12/29 ASSESSMENT/PLAN Infectious disease concurred that it was best just to watch the positive urine culture for strep Elbert gnosis and this is probably a contaminant Patient has infected area of seborrheic keratitis on the lateral corner of the left breast and this will be treated with Bactroban She is awaiting precertification and stable currently Discussed pessary was for prolapse and potential need for follow-up with uro-HISTORICAL SITE GUIDE Orthopedics-weightbearing as tolerated with left arm in a sling whenever she is not resting her arm on her lap at rest and to have active range of motion with her elbow and wrist and hand and follow-up check in 10 to 14 days-Call [phone] for appt. Consultants: Dr. Mckinney for orthopedics Dr. Nascimento for HISTORICAL SITE GUIDE PROCEDURES: NONE Disposition: Extended Care Facility - [facility] Recent Labs 12/29/23 0712/28/2351512/27/2363512/25/23 1835 WBC 7.97 9.76 9.91 11.71* RBC 3.64* 4.15 4.22 4.25 HB 11.7 12.9 13.4 13.7 HCT 34.5* 38.6 40.0 41.0 PLT 288 287 288 285 MCV 94.8 93.0 94.8 96.5 MCH 32.1 31.1 31.8 32.2 MPV 9.0 8.8* 9.0 8.7* ABSNEUT -- -- -- 9.22* NEUTP -- -- -- 78.6 LYMPHP -- -- -- 15.8 MONOP -- -- -- 5.0 EODINP -- -- -- 0.3 Recent Labs 12/29/23 0712/28/23 0516 12/27/23 0637 12/25/23 1835 GLUC 109* 120* 131* 216* NA 139 138 138 139 K 4.1 3.5* 3.6* 3.5* CHLOR 104 102 102 104 CO2 24 24 CREAT 0.79 0.77 0.69 0.98* BUN 25* 20 18 29* ANION 10 10 12 11 CA 9.0 9.3 9.2 9.8 TPROT -- -- -- 7.9 ALB -- -- -- 4.5 TBILI -- -- -- 0.4 ALKPHOS -- -- -- 81 AST -- -- -- 27 ALT -- -- -- 35 Recent Labs 12/29/23 0712/28/23 0516 12/27/23 0637 GLUC 109* 120* 131* No results for input(s): LACT in the last 168 hours. Recent Labs 12/29/23 0712/28/23 0516 12/27/2337 BUN 25* 20 18 CREAT 0.79 0.77 0.69 CA 9.0 9.3 9.2 MG 2.3 2.0 -- Most recent labs HOSPITAL COURSE: Ann Marie Hill is a 83 year old female presented with past medical history of Alzheimers Dementia, HTN presents with fall. Xray showed Acute, comminuted/impacted, mildly displaced left humeral neck fracture Principal Problem: Comminuted left humeral fracture, closed, initial encounter Left arm in sling. NWB Pain control as needed with tylenol Orthopedics consulted PT/OT Active Problems: UTI (urinary tract infection) Per daughter experiencing confusion around the time of the fall. She feels her mother has a UTI Started on macrobid on admit. Multiple allergies and had severe diarrhea w ?keflex a few weeks ago Follow urine culture Daughter requesting HISTORICAL SITE GUIDE to see and evaluate her pessary and vaginal exam due to UTIs and creams her is placing and patient feeling like her bladder is falling all the time. Advised her she may need to be present to help with consent for exam as this is not medically emergent Hypertension Continue amlodipine, asa, coreg, crestor Dementia (HCC) Alzeimers Delirium Continue pristiq Delirium protocol Maintain sleep wake cycle Principal Problem: Comminuted left humeral fracture, closed, initial encounter Active Problems: Hypertension Dementia (HCC) UTI (urinary tract infection) Delirium Other female genital prolapse Hypokalemia Resolved Problems: * No resolved hospital problems. * PHYSICAL EXAM: BP 132/59 Pulse 95 Temp (Src) 97.5 (Oral) Resp 16 Ht 5' 4 (1.63m) Wt 168 lb (76.2kg) SpO2 92% BMI 28.82 kg/(m2). O2 Therapy: Room Air Physical Exam Performed GENERAL: Alert, no distress, cooperative NECK: No jugulovenous distention, Supple no HJR LUNGS: Adventitious sounds: Clear to auscultation Respiratory Distress - no THORAX: Patient has multipl (more content not included)... [facility] 12-28-2023 Note HNO ID: [id number] Author: EVAN DE LA GARZA MD Service: Hospital Medicine Author Type: Physician Type: Progress Notes Filed: 12/28/2023 19:51 Note Text: DEPARTMENT OF HOSPITAL MEDICINE PROGRESS NOTE SERVICE DATE: 12/28/2023 SERVICE TIME: 7:23 PM Hospital Medicine/Primary Attending: Evan De La Garza MD NIGHT AND WEEKEND COVERAGE: [place] COVERAGE: Nights: [phone], please page [facility] Night coverage pager [phone]. Reason for Admission: Fall with comminuted shoulder fracture, left INTERVAL HPI: Discussed pessary was for prolapse and potential need for follow-up with uro-HISTORICAL SITE GUIDE Orthopedics-weightbearing as tolerated with left arm in a sling whenever she is not resting her arm on her lap at rest and to have active range of motion with her elbow and wrist and hand and follow-up check in 10 to 14 days-Call [phone] for appt. Initial urine culture positive for lactobacillus likely contaminant and repeat culture is in progress CHECK LIST Goal for glucose 100-180 At goal Cultures negative thus far other than those noted:None Vital signs: Reviewed labs Problem list reviewed Medication list reviewed Reviewed new notes Probable discharge- ASSESSMENT/PLAN Consultants: Dr. Mckinney for orthopedics Dr. Nascimento for HISTORICAL SITE GUIDE PROCEDURES: NONE Disposition: [facility] Recent Labs 12/28/2351512/27/23 0612/25/23 1835 WBC 9.76 9.91 11.71* RBC 4.15 4.22 4.25 HB 12.9 13.4 13.7 HCT 38.6 40.0 41.0 PLT 287 288 285 MCV 93.0 94.8 96.5 MCH 31.1 31.8 32.2 MPV 8.8* 9.0 8.7* ABSNEUT -- -- 9.22* NEUTP -- -- 78.6 LYMPHP -- -- 15.8 MONOP -- -- 5.0 EODINP -- -- 0.3 Recent Labs 12/28/2351512/27/2363612/25/23 1835 GLUC 120* 131* 216* NA 138 138 139 K 3.5* 3.6* 3.5* CHLOR 102 102 104 CO2 24 CREAT 0.77 0.69 0.98* BUN 20 18 29* ANION 10 12 11 CA 9.3 9.2 9.8 TPROT -- -- 7.9 ALB -- -- 4.5 TBILI -- -- 0.4 ALKPHOS -- -- 81 AST -- -- 27 ALT -- -- 35 Recent Labs 12/28/2351512/27/23 0612/25/23 1835 GLUC 120* 131* 216* No results for input(s): LACT in the last 168 hours. Recent Labs 12/28/23 0516 12/27/23 0637 12/25/23 1835 BUN 20 18 29* CREAT 0.77 0.69 0.98* CA 9.3 9.2 9.8 Most recent labs HOSPITAL COURSE: Ann Marie Hill is a 83 year old female presented with past medical history of Alzheimers Dementia, HTN presents with fall. Xray showed Acute, comminuted/impacted, mildly displaced left humeral neck fracture Principal Problem: Comminuted left humeral fracture, closed, initial encounter Left arm in sling. NWB Pain control as needed with tylenol Orthopedics consulted PT/OT Active Problems: UTI (urinary tract infection) Per daughter experiencing confusion around the time of the fall. She feels her mother has a UTI Started on macrobid on admit. Multiple allergies and had severe diarrhea w ?keflex a few weeks ago Follow urine culture Daughter requesting HISTORICAL SITE GUIDE to see and evaluate her pessary and vaginal exam due to UTIs and creams her is placing and patient feeling like her bladder is falling all the time. Advised her she may need to be present to help with consent for exam as this is not medically emergent Hypertension Continue amlodipine, asa, coreg, crestor Dementia (HCC) Alzeimers Delirium Continue pristiq Delirium protocol Maintain sleep wake cycle Principal Problem: Comminuted left humeral fracture, closed, initial encounter Active Problems: Hypertension Dementia (HCC) UTI (urinary tract infection) Delirium Other female genital prolapse Resolved Problems: * No resolved hospital problems. * PHYSICAL EXAM: BP 133/59 Pulse 86 Temp (Src) 98.1 (Oral) Resp 16 Ht 5' 4 (1.63m) Wt 168 lb (76.2kg) SpO2 95% BMI 28.82 kg/(m2). O2 Therapy: Room Air Physical Exam Performed GENERAL: Alert, no distress, cooperative NECK: No jugulovenous distention, Supple no HJR LUNGS: Adventitious sounds: Clear to auscultation Respiratory Distress - no CARDIAC: Rhythm: regular rate and rhythm normal S1 normal S2 no murmur physiologic split may be secondary to right bundle branch block with CHF ordered just plain normal no EKG ABDOMEN: Abdomen soft, non-tender, no peritoneal signs EXTREMITIES: No edema, no cords NEURO: Grossly at baseline cognition The remainder of the physical exam is noncontributory. Current Facility-Administered Medications Medication Dose Route Frequency polyethylene glycol 3350 17 g packet 17 g ORAL DAILY PRN benzocaine-menthol 1 Lozenge (CEPACOL) 1 Lozenge MUCOUS MEMBRANE (TOPICAL MOUTH AND THROAT) q 2 H PRN benzonatate 100 mg cap(s) (TESSALON PERLE) 100 mg ORAL TID PRN calcium carbonate 1,000 mg chewable tab(s) (TUMS) 1,000 mg ORAL TID PRN melatonin 3 mg tab(s) 3 mg ORAL AT BEDTIME PRN prochlorperazine 10 mg injection (COMPAZINE) 10 mg INTRAVENOUS q 6 H PRN albut (more content not included)... [facility] 12-27-2023 Note HNO ID: [id number] Author: CARLA SLAUGHTER DO Service: Hospital Medicine Author Type: Physician Type: Progress Notes Filed: 12/27/2023 13:11 Note Text: DEPARTMENT OF HOSPITAL MEDICINE PROGRESS NOTE SERVICE DATE: 12/27/2023 SERVICE TIME: 1:03 PM Hospital Medicine/Primary Attending: Carla Slaughter DO NIGHT AND WEEKEND COVERAGE: [place] COVERAGE: Days: [phone], please page attending physician. Nights: [phone], please page [facility] Night coverage pager [phone]. Subjective INTERVAL HPI: seen in am. Son at bedside Pain in left arm. Pleasantly confused but awake and alert. No fever or chills. Denies CP, SOB abd pain, N/V Current Facility-Administered Medications Medication Dose Route Frequency polyethylene glycol 3350 17 g packet 17 g ORAL DAILY PRN benzocaine-menthol 1 Lozenge (CEPACOL) 1 Lozenge MUCOUS MEMBRANE (TOPICAL MOUTH AND THROAT) q 2 H PRN benzonatate 100 mg cap(s) (TESSALON PERLE) 100 mg ORAL TID PRN calcium carbonate 1,000 mg chewable tab(s) (TUMS) 1,000 mg ORAL TID PRN melatonin 3 mg tab(s) 3 mg ORAL AT BEDTIME PRN prochlorperazine 10 mg injection (COMPAZINE) 10 mg INTRAVENOUS q 6 H PRN albuterol HFA 90 mcg/actuation 2 Puff (PROVENTIL HFA, VENTOLIN HFA) 2 Puff INHALATION q 4 H PRN nitrofurantoin monohydrate and macrocrystal 100 mg cap(s) (MACROBID) 100 mg ORAL BID w MEALS acetaminophen 1,000 mg tab(s) (TYLENOL) 1,000 mg ORAL Q6H WHILE AWAKE amLODIPine 10 mg tab(s) (NORVASC) 10 mg ORAL DAILY aspirin, enteric coated 81 mg tab(s) 81 mg ORAL DAILY carvedilol 12.5 mg tab(s) (COREG) 12.5 mg ORAL BID cholecalciferol 2,000 Units tab(s) (VITAMIN D3) 2,000 Units ORAL DAILY ascorbic acid (vitamin C) 1,000 mg tab(s) (VITAMIN C) 1,000 mg ORAL DAILY cyanocobalamin 100 mcg tab(s) (VITAMIN B-12) 100 mcg ORAL DAILY desvenlafaxine ER 50 mg tab(s) (PRISTIQ) 50 mg ORAL DAILY rosuvastatin 40 mg tab(s) (CRESTOR) 40 mg ORAL DAILY Objective PHYSICAL EXAM: BP 125/58 Pulse 95 Temp (Src) 98.5 (Temporal Artery) Resp 16 Ht 5' 4 (1.63m) Wt 168 lb (76.2kg) SpO2 94% BMI 28.82 kg/(m2). O2 Therapy: Room Air Physical Exam Performed GENERAL: Alert, no distress, cooperative LUNGS: Lungs clear to auscultation, Good diaphragmatic excursion CARDIAC: Normal S1 and S2; no rubs, murmurs, or gallops ABDOMEN: Abdomen soft, non-tender, BS normal, EXTREMITIES: Extremities normal, no deformities, edema, clubbing or skin discoloration. Left arm in sling defer exam to ortho Lines, Drains, and Airways Line Duration Peripheral 12/25/23 1830 Right Antecubital 18 Gauge 1 day DATA: Diagnostic tests reviewed for today's visit: Most recent labs Most recent imaging Assessment/Plan Problem List Comminuted left humeral fracture, closed, initial encounter (POA: Yes) UTI (urinary tract infection) (POA: Status not on file) Hypertension (POA: Yes) Dementia (HCC) (POA: Yes) Delirium (POA: Status not on file) Other female genital prolapse (POA: Yes) HOSPITAL COURSE: Ann Marie Hill is a 83 year old female presented with past medical history of Alzheimers Dementia, HTN presents with fall. Xray showed Acute, comminuted/impacted, mildly displaced left humeral neck fracture Principal Problem: Comminuted left humeral fracture, closed, initial encounter Left arm in sling. NWB Pain control as needed with tylenol Orthopedics consulted PT/OT Active Problems: UTI (urinary tract infection) Per daughter experiencing confusion around the time of the fall. She feels her mother has a UTI Started on macrobid on admit. Multiple allergies and had severe diarrhea w ?keflex a few weeks ago urine culture with lactobacillus jensenii. I am stopping macrobid as it doesn't cover this organism. Repeat urine cx to ensure this was not vaginal contamination. She had a pessary in so may be translocation from the vaginal are Daughter requesting HISTORICAL SITE GUIDE to see and evaluate her pessary and vaginal exam due to UTIs and creams her is placing and patient feeling like her bladder is falling all the time. See by Dr. Nascimento, appreciate consult Hypertension Continue amlodipine, asa, coreg, crestor Dementia (HCC) Alzeimers Delirium Continue pristiq Delirium protocol Maintain sleep wake cycle Discharge planning Medication and Non-Pharmacologic VTE Prophylaxis/Anticoagulants Anticoagulant AND Antiplatelet Medications (From admission, onward) Start Dose Route Frequency Last Action Ordered Stop 12/26/23 0900 aspirin, enteric coated 81 mg tab(s) 81 mg ORAL DAILY Given, 12/26 0758 12/26/23 0432 -- 12/26/23 0000 activity - mobilize patient (al,ak) VTE Prophylaxis: VTE prophylaxis appropriate Disposition: To be determined Plan of care discussed with Provider, RN, Patient Plan communicated to: son at bedside SIGNATURE: Carla Slaughter DO PATIENT NAME: Ann Marie Hill DATE: December 26, 2023 TIME: seen in [facility] 12-27-2023 Miscellaneous Notes Arvin Morataya MD You 17 hours ago (3:00 PM) Correct to both questions You Arvin Morataya MD 18 hours ago (2:08 PM) AM This was for her L humerus fx correct? But no sx? You ----- Message from Arvin Morataya MD sent at 12/25/2023 9:07 PM EDT ----- Can this patient follow-up with me on 12/31 documented in this encounter [facility] 12-27-2023 Note HNO ID: [id number] Author: SUBHASH MADERA, JADA Service: Nursing Author Type: Registered Nurse Type: Nursing Progress Note Filed: 12/26/2023 22:00 Note Text: [id number]: Dr. Mckinney in to see pt. [facility] 12-26-2023 Note HNO ID: [id number] Author: CARLA SLAUGHTER DO Service: Hospital Medicine Author Type: Physician Type: Progress Notes Filed: 12/26/2023 16:47 Note Text: DEPARTMENT OF HOSPITAL MEDICINE PROGRESS NOTE SERVICE DATE: 12/26/2023 SERVICE TIME: 4:38 PM Hospital Medicine/Primary Attending: Carla Slaughter DO NIGHT AND WEEKEND COVERAGE: [place] COVERAGE: Days: [phone], please page attending physician. Nights: [phone], please page [facility] Night coverage pager [phone]. Subjective INTERVAL HPI: seen in am. Pain in left arm. Pleasantly confused but awake and alert. Seen again with daughter at bedside. Daughter with many concerns. Her father is also in the hospital for a fall and fracture hip. Worried about her recurrent UTI. Says she wants to pessary checked out and her father is putting some kind of cream in her vagina but can't tell her what it is. States she will start late afternoon. No fever or chills. Denies CP, SOB abd pain, N/V Current Facility-Administered Medications Medication Dose Route Frequency polyethylene glycol 3350 17 g packet 17 g ORAL DAILY PRN benzocaine-menthol 1 Lozenge (CEPACOL) 1 Lozenge MUCOUS MEMBRANE (TOPICAL MOUTH AND THROAT) q 2 H PRN benzonatate 100 mg cap(s) (TESSALON PERLE) 100 mg ORAL TID PRN calcium carbonate 1,000 mg chewable tab(s) (TUMS) 1,000 mg ORAL TID PRN melatonin 3 mg tab(s) 3 mg ORAL AT BEDTIME PRN prochlorperazine 10 mg injection (COMPAZINE) 10 mg INTRAVENOUS q 6 H PRN albuterol HFA 90 mcg/actuation 2 Puff (PROVENTIL HFA, VENTOLIN HFA) 2 Puff INHALATION q 4 H PRN nitrofurantoin monohydrate and macrocrystal 100 mg cap(s) (MACROBID) 100 mg ORAL BID w MEALS acetaminophen 1,000 mg tab(s) (TYLENOL) 1,000 mg ORAL Q6H WHILE AWAKE amLODIPine 10 mg tab(s) (NORVASC) 10 mg ORAL DAILY aspirin, enteric coated 81 mg tab(s) 81 mg ORAL DAILY carvedilol 12.5 mg tab(s) (COREG) 12.5 mg ORAL BID cholecalciferol 2,000 Units tab(s) (VITAMIN D3) 2,000 Units ORAL DAILY ascorbic acid (vitamin C) 1,000 mg tab(s) (VITAMIN C) 1,000 mg ORAL DAILY cyanocobalamin 100 mcg tab(s) (VITAMIN B-12) 100 mcg ORAL DAILY desvenlafaxine ER 50 mg tab(s) (PRISTIQ) 50 mg ORAL DAILY rosuvastatin 40 mg tab(s) (CRESTOR) 40 mg ORAL DAILY Objective PHYSICAL EXAM: BP 130/70 Pulse 91 Temp (Src) 98.2 (Axillary) Resp 16 Ht 5' 4 (1.63m) Wt 168 lb (76.2kg) SpO2 92[per DR. Slaughter, do no oxygen NC at this time.]% BMI 28.82 kg/(m2). O2 Therapy: Room Air Physical Exam Performed GENERAL: Alert, no distress, cooperative LUNGS: Lungs clear to auscultation, Good diaphragmatic excursion CARDIAC: Normal S1 and S2; no rubs, murmurs, or gallops ABDOMEN: Abdomen soft, non-tender, BS normal, EXTREMITIES: Extremities normal, no deformities, edema, clubbing or skin discoloration. Left arm in sling defer exam to ortho Lines, Drains, and Airways Line Duration Peripheral 12/25/23 1830 Right Antecubital 18 Gauge <1 day DATA: Diagnostic tests reviewed for today's visit: Most recent labs Most recent imaging Assessment/Plan Problem List Comminuted left humeral fracture, closed, initial encounter (POA: Yes) UTI (urinary tract infection) (POA: Status not on file) Hypertension (POA: Yes) Dementia (HCC) (POA: Yes) Delirium (POA: Status not on file) HOSPITAL COURSE: Ann Marie Hill is a 83 year old female presented with past medical history of Alzheimers Dementia, HTN presents with fall. Xray showed Acute, comminuted/impacted, mildly displaced left humeral neck fracture Principal Problem: Comminuted left humeral fracture, closed, initial encounter Left arm in sling. NWB Pain control as needed with tylenol Orthopedics consulted PT/OT Active Problems: UTI (urinary tract infection) Per daughter experiencing confusion around the time of the fall. She feels her mother has a UTI Started on macrobid on admit. Multiple allergies and had severe diarrhea w ?keflex a few weeks ago Follow urine culture Daughter requesting HISTORICAL SITE GUIDE to see and evaluate her pessary and vaginal exam due to UTIs and creams her is placing and patient feeling like her bladder is falling all the time. Advised her she may need to be present to help with consent for exam as this is not medically emergent Hypertension Continue amlodipine, asa, coreg, crestor Dementia (HCC) Alzeimers Delirium Continue pristiq Delirium protocol Maintain sleep wake cycle 40 minutes spent at bedside Medication and Non-Pharmacologic VTE Prophylaxis/Anticoagulants Anticoagulant AND Antiplatelet Medications (From admission, onward) Start Dose Route Frequency Last Action Ordered Stop 12/26/23 0900 aspirin, enteric coated 81 mg tab(s) 81 mg ORAL DAILY Given, 12/25 0756 12/26/23 0432 -- 12/26/23 0000 activity - mobilize patient (al,oh) VTE Prophylaxis: VTE prophylaxis appropriate Disposition: To be determined Plan of care discussed with Provider, RN, Patient Plan commun (more content not included)... [facility] 12-26-2023 Note HNO ID: [id number] Author: DAVIS HIDALGO RN Service: Nursing Author Type: Registered Nurse Type: Nursing Progress Note Filed: 12/26/2023 15:08 Note Text: Other: Other: Report given to JADA Chauhan. next shift RN to resume pt care. [facility] 12-25-2023 Miscellaneous Notes RQB. Patient coming to [place] with humerus fracture. Will pursue symptom control and placement. Dr. Mckinney made aware at 9:45 pm over phone with Dr. Goins documented in this encounter [facility] 07-19-2023 Evaluation + Plan note Diagnostic Tests PendingUrine Culture 07/19/23 [facility] 05-22-[address] - 05/22/2023 9:01 AM EDT [facility] FOLLOW UP NUTRITION INSTRUCTIONS Nutrition Follow-up: In [...] Lionel Zero Pascha Recipes -Paleo Hot Chocolate: https://APSX/vegan-hot -chocolate-paleo/ -Keto No Bake Brownie Bites: https://www.SentinelOne/keto -ot-fqpp-expedpg-bites/ -Whole Food Fudge: https://Ulabox.InDex Pharmaceuticals/easy-raw -dutih-opiri-gntaz/ 2. Continue focus on the SEAMUS food plan principles previously discussed: -[place]-3 Rich Fish (wild-caught salmon, mackerel, anchovies, sardines, rodrigues): twice per week -Continue grass-fed beef 3-4X/week -Add legumes 3-4X/week Three jamil salad recipe: https://wali/class ey-tmgri-kbib-salad/ -Add homemade vinaigrette coleslaw or green salad daily Vinegar based coleslaw: https://www.BabyJunk, Inc/vine rhp-nmowu-pfggqxgc/ -Continue nuts/seeds daily I.e. almonds, walnuts, pecans [...] Functional Medicine Team (Open M-F 8am-5pm): 1. Zazzlehart is the BEST form of communication to reach the Functional Medicine Team, see test results and request refills. Please allow 72 business hours for a response. Directions for signing up are included in your New Patient Folder. (Or you can go to [email or web address]) 2. For nutrition related questions or concerns, Fermentalgt message your physician and include Attn: Shelley Mitchell RD at the top of the message. [employer] messaging is meant to support implementation of [...] Supplements: Supplements can be ordered from the [facility]'s [facility]'s Online Store: https://store.Gatekeeper System. InDex Pharmaceuticals/#login New patients to the Healthy Living Shop will need to enter the provider code FUNCTIONAL to register their account. documented in this encounter [facility] 05-19-2023 Note HNO ID: [id number] Author: Christiana Montero MD Service: ? Author [...] OmegaGenics EPA-DHA 2400 (High Concentrate EPA/DHA liquid) (GiveLoop) Take one teaspoon (5 ml) 1 times daily with food UT Synergy (Technorides) antibacterial Take 1 capsule by mouth twice daily. Brain Misael Capsules (Technorides) Take 2 tablets by mouth w MEALS. Neuromag ( Technorides ) 90 ct Take 3 capsules per [...] MD Last Visit on January 2023 Provider Klyah Symptoms What is the severity of [...] diet to mix and match - cancelled prototype technician visit due to not having NutrEval [...] home testnig. Frustrate (more content not included)... [facility] 05-19-2023 Note HNO ID: [id number] Author: Shelley Mitchell RD Service: ? Author Type: Registered Dietitian Type: Progress Notes Filed: 05/22/2023 9:02 AM Note Text: [facility] Functional Medicine Nutrition Therapy: Follow-Up Assessment (Individual) IN PERSON Accompanied by her spouse today Patient Name: Ann Marie Hill Past Medical History: PAST MEDICAL HISTORY Diagnosis Date Alzheimer disease (HCC) HTN (hypertension) Allergies: Ciprofloxacin, Penicillins, and Sulfa (Sulfonamide Antibiotics) Current Medications/Supplements Current Outpatient Medications on File Prior to Visit Medication Sig PhytoMulti 60s capsules (GiveLoop) Take 2 capsules daily, with meals. Glycine (Pure Encapsulations) Take 1 capsule 3 times daily in divided doses between meals. (1 [id number]) B-Complex Plus (Pure Encapsulations) Take 1 capsule by mouth daily with food. Glutathione (MobAppCreator) Use 20 pumps daily (1000mg) divided doses [...] OmegaGenics EPA-DHA 2400 (High Concentrate EPA/DHA liquid) (GiveLoop) Take one teaspoon (5 ml) 1 times daily with food UT Synergy (Technorides) antibacterial Take 1 capsule by mouth twice daily. Neuromag ( Technorides ) 90 ct Take 3 capsules per [...] disturbance (HCC) [G30.1, F02.818] Provider Nutrition Notes:Per chemistry physics teacher R41.3 Memory change (primary encounter diagnosis) F05 [...] recall updated below; some restaurant meals at [facility] (focuses on 'chicken and vegetables'); endorses fish consumption limited to 2X/month Current Adverse Reactions to Foods: previously avoiding wheat, dairy, sugar, grains; not strict with this now Subjective (12/01/21) Weight has been stable: 118-120 Would like more print outs today vs. [employer] resources Subjective (08/06/21) -Daughter christos on line: [...] Biochemical and L (more content not included)... [facility] 05-19-2023 Note Education ([facility]) ANN MARIE HILL ([id number]) 1940 F Date Time Provider Department 05/19/23 3:00 PM SHELLEY MITCHELLGabriella Reason for Visit: Established Patient [175] Primary [...] capsules each day. - PhytoMulti 60s capsules (GiveLoop) Take 2 capsules daily, with meals. - Glycine (Pure Encapsulations) Take 1 capsule 3 times daily in divided doses between meals. (1 [id number]=[id number]) - B-Complex Plus (Pure Encapsulations) Take 1 capsule by mouth daily with food. - Glutathione (MobAppCreator) Use 20 pumps daily (1000mg) divided doses [...] OmegaGenics EPA-DHA 2400 (High Concentrate EPA/DHA liquid) (GiveLoop) Take one teaspoon (5 ml) 1 times daily with food - UT Synergy (Technorides) antibacterial Take 1 capsule by mouth twice daily. - Neuromag ( Technorides ) 90 ct Take 3 capsules per [...] Encounter Status:Closed by SHELLEY MITCHELL on 05/22/23 [facility] 05-19-2023 Instructions Christiana Montero MD - 05/19/2023 4:36 PM EDT FUNCTIONAL MEDICINE PLAN: Keep diet low at this time with sugar / dairy / processed foods. Think of plasminogens for Alzheimer's www.DroidUnit.net Synapsin - if wishing to use notify [...] cheese, dairy, whole grains, and eggs. The CUSTOMER SERVICES SUPERVISOR is 4.1 mg per kilogram of body weight or 1.9 mg per pound. Some high cysteine foods include: Soybeans, raw (609 mg per 1/2 cup) Oat bran, dry (541 mg per 1 cup) Pork ham, roasted (492 mg per 4 oz.) Tuna Fish, light, canned in oil, drained (456 mg per 1 cup) Chicken breast, cooked (444 mg per 4 oz.) Galax breast, cooked (436 mg per 4 oz.) Beef angelo, cooked (408 mg per 4 oz.) Oat bran, cooked (217 mg per 1 cup) Egg, whole, raw, fresh (136 mg per 1 large egg) [place] seeds, oil roasted (113 mg per 1 oz.) Cashews, oil-roasted (104 mg per 1 oz.) Peanuts, oil roasted (95 mg per 1 oz.) [place] cheese, diced (83 mg per 1 oz.) [...] cofactor for the production of glutathione. The CUSTOMER SERVICES SUPERVISOR value to maximize glutathione production in the [...] peppers may be beneficial Functional Nutrition: per prototype technician Review and implement diet factors recommended through nutritional visit - use your health population health coach for discussion on how to implement [...] We recommend ordering supplementation online from the [facility] Healthy Living Shop as they are high quality therapeutic supplements. Healthy Living Shop [facility] offers an easy to use, convenient way to order supplementation recommended by your provider through the Healthy Living Shop. All of the products offered are considered high-quality, and adhere to specific criteria for quality and effectiveness including good manufacturing practices, use of clean products, free of fillers, binders, and other antigens. In addition, we follow third alliance party analysis for independent verification of active ingredients. Get started by following three easy steps: A. Visit the following webpage: https://Blue Ridge Networks.The Matlet Group/ datatracker Statements on this site have not been [...] For issues with your MRN please call [phone] Stress Management Hero Network[employer] Inc. Neuro -new technology to use a wearable device to retrain brain and focus on nervous system reduction. To learn more of this technology by going to (rxi-fpb-jmwms) https://IronPearl/ Please look into this Heart Rate Variability [...] one of the Heart Math booklets off OpenPortal that fits your 'go to' emotion - [...] you fully) . --- Polyvagal theory (Connor Coho Data) https://www.VENNCOMM/ --- Dynamic Neural Retraining System - (Ketty Christensen) https://retraining3DR Laboratories.InDex Pharmaceuticals/a chioie-hopper/ --- Frias Program - (John Frias) Https://www.Reocar.InDex Pharmaceuticals/ Finding time for self (no multitasking) at this time to dedicate to breathing / relaxation process. Work on cultivating ted! documented in this encounter [facility] 05-19-2023 History of Presen t illness [...] OmegaGenics EPA-DHA 2400 (High Concentrate EPA/DHA liquid) (GiveLoop) Take one teaspoon (5 ml) 1 times daily with food UT Synergy (Technorides) antibacterial Take 1 capsule by mouth twice daily. Brain Misael Capsules (Technorides) Take 2 tablets by mouth w MEALS. Neuromag ( Technorides ) 90 ct Take 3 capsules per [...] diet to mix and match - cancelled prototype technician visit due to not having NutrEval [...] Limit sugar as above. Timing relation to owning? Role of Panax ginseng. - Synpasin Detox [...] Phenylacetic,Benzoic, DHPAA Detox Markers Yeast markers Citramalic [place] 3 Index NOrmal Oxidative stress Lipid 9.7 8OHdg 11 Heavy metals Other Oxalate markers (glyceric, glycolic, oxalic) - all elevated Maritza Nutreval Jun 2020 High Need: Mod Need: All B's Amino acids: Malabsorption markers: Bacterial dysbiosis markers: Fungal dysbiosis markers:arabinose 55 Toxin/detox markers: high [place]-3 Index: 4.3 Glutathione level:998 Lipid peroxides:8.5 Toxic [...] processed foods. Think of plasminogens for Alzheimer's www.prodrome.InDex Pharmaceuticals Synapsin - if wishing to use notify [...] cheese, dairy, whole grains, and eggs. The CUSTOMER SERVICES SUPERVISOR is 4.1 mg per kilogram of body weight or 1.9 mg per pound. Some high cysteine foods include: Soybeans, raw (609 mg per 1/2 cup) Oat bran, dry (541 mg per 1 cup) Pork ham, roasted (492 mg per 4 oz.) Tuna Fish, light, canned in oil, drained (456 mg per 1 cup) Chicken breast, cooked (444 mg per 4 oz.) Galax breast, cooked (436 mg per 4 oz.) Beef angelo, cooked (408 mg per 4 oz.) Oat bran, cooked (217 mg per 1 cup) Egg, whole, raw, fresh (136 mg per 1 large egg) [place] seeds, oil roasted (113 mg per 1 oz.) Cashews, oil-roasted (104 mg per 1 oz.) Peanuts, oil roasted (95 mg per 1 oz.) [place] cheese, diced (83 mg per 1 oz.) [...] cofactor for the production of glutathione. The CUSTOMER SERVICES SUPERVISOR value to maximize glutathione production in the [...] peppers may be beneficial Functional Nutrition: per prototype technician Review and implement diet factors recommended through nutritional visit - use your health population health coach for discussion on how to implement [...] We recommend ordering supplementation online from the [facility] Healthy Living Shop as they are high quality therapeutic supplements. Healthy Living Shop [facility] offers an easy to use, convenient way to order supplementation recommended by your provider through the Healthy Living Shop. All of the products offered are considered high-quality, and adhere to specific criteria for quality and effectiveness including good manufacturing practices, use of clean products, free of fillers, binders, and other antigens. In addition, we follow third alliance party analysis for independent verification of active ingredients. Get started by following three easy steps: A. Visit the following webpage: https://Blue Ridge Networks.The Matlet Group/ Fusion Telecommunications Living Shop Statements on this site have not [...] For issues with your MRN please call [phone] Stress Management Hero [employer] Inc. Neuro -new technology to use a wearable device to retrain brain and focus on nervous system reduction. To learn more of this technology by going to (aos-wqj-frbmg) https://IronPearl/ Please look into this Heart Rate Variability [...] one of the Heart Math booklets off OpenPortal that fits your 'go to' emotion - [...] fully) . --- Polyvagal theory (Connor Ybarra) https://www.Nextinit.InDex Pharmaceuticals/ --- Dynamic Neural Retraining System - (Ketty Christensen) https://retrainingBiosport Athletechs/a chioie-hopper/ --- Frias Program - (John Frias) Https://www.Gridpoint Systems/ Finding time for self (no multitasking) at this time to dedicate to breathing / relaxation process. Work on cultivating ted! Future Plans (for provider use): I spent a total of 45 minutes on the date of the service which included preparing to see the patient, myor-xh-xcjl patient care, completing clinical documentation, obtaining and/or reviewing separately obtained history, performing a medically appropriate examination, and ordering medications, tests, or procedures. Christiana Montero MD documented in this encounter [facility] 05-19-2023 History of Presen t illness Narrative [facility] Nutrition Therapy: Follow-Up [...] daily in divided doses between meals. (1 [id number]) B-Complex Plus (Pure Encapsulations) Take 1 capsule by mouth daily with food. Glutathione (MobAppCreator) Use 20 pumps daily (1000mg) divided doses [...] OmegaGenics EPA-DHA 2400 (High Concentrate EPA/DHA liquid) (GiveLoop) Take one teaspoon (5 ml) 1 times daily with food UT Synergy (Technorides) antibacterial Take 1 capsule by mouth twice daily. Neuromag ( Technorides ) 90 ct Take 3 capsules per [...] disturbance (HCC) [G30.1, F02.818] Provider Nutrition Notes:Per chemistry physics teacher R41.3 Memory change (primary encounter diagnosis) F05 [...] recall updated below; some restaurant meals at [facility] (focuses on 'chicken and vegetables'); endorses fish consumption limited to 2X/month Current Adverse Reactions to Foods: previously avoiding wheat, dairy, sugar, grains; not strict with this now Subjective (12/01/21) Weight has been stable: 118-120 Would like more print outs today vs. Hylete Subjective (08/06/21) -Daughter christos on line: states dad is limited in what he can cook Diet Recall: Yes 24 Hour Recall Breakfast: Dr. Julio César Brewster Protein in hot chocolate in morning, cantaloupe, [...] Acid Isocitric Acid Succinic Acid Malic Acid [place] Imbalance 3 Toxic Exposure 8 Methylation Imbalance [...] Lionel Zero Pascha Recipes -Paleo Hot Chocolate: https://kajeeteaCurious Sense.InDex Pharmaceuticals/vegan-hot -chocolate-paleo/ -Keto No Bake Brownie Bites: https://www.SentinelOne/keto -nd-ptjt-fhtlxpd-bites/ -Whole Food Fudge: https://detoxinista.com/easy-raw -kqndl-izbeo-zawqt/ 2. Continue focus on the SEAMUS food plan principles previously discussed: -[place]-3 Rich Fish (wild-caught salmon, mackerel, anchovies, sardines, rodrigues): twice per week -Continue grass-fed beef 3-4X/week -Add legumes 3-4X/week Three jamil salad recipe: https://wali/class xn-lugur-cuay-salad/ -Add homemade vinaigrette coleslaw or green salad daily Vinegar based coleslaw: https://www.BabyJunk, Inc/vine cqo-agpqs-pxowvcdu/ -Continue nuts/seeds daily I.e. almonds, walnuts, pecans [...] idea below) Resources/Educational Materials Provided: sent through [facility] Adherence Potential to Goals/Care Plan: Moderate Nutrition [...] Shelley Mitchell RD documented in this encounter [facility] 04-25-2023 Hospital Discharg e instructions Patient Education 04/25/2023 12:19:15 Urinary Tract Infection, Adult, Wost-og-Zcht Urinary Tract Infection, Adult A urinary tract [...] Follow these instructions at home: Medicines Take swxm-btj-chokrjs and prescription medicines only as told by [...] provider. Document Revised: 05/07/2021 Document Reviewed: 05/07/2021 [employer] Renovations Patient Education 2022 [email or web address]. Follow Up Care 08/08/2022 16:24:54 With:ELLEN COOK PA-C, URL Address: [address] [place] [address]. [place] [address] When: Unknown [facility] 02-17-2023 Miscellaneous Notes NUTRITION RESOURCES SENT VIA [employer]. Evelyn Samuel LPN February 17, 2023 8:17 AM documented in this encounter [facility] 02-16-2023 Instructions Kasey Hernández, HELADIO - 02/16/2023 2:20 PM EDT [facility] FOLLOW UP NUTRITION INSTRUCTIONS Nutrition Follow-up: In 6 months with Kasey Hernández RD. Your Prescribed Nutrition Plan: Seamus (Gluten-Free) 1. Continue with Seamus Food Plan (Dairy-Free/Gluten-Free), with the following targets: -[place]-3 Rich Fish (wild-caught salmon, mackerel, anchovies, sardines, rodrigues): twice per week -Continue grass-fed beef 3-4X/week -Add legumes 3-4X/week Three jamil salad recipe: https://wali/class jc-zwkxs-mrrq-salad/ -Add homemade vinaigrette coleslaw or green salad daily Vinegar based coleslaw: https://BuzzVote.BabyJunk, Inc/vine mfj-kykah-ptbbtahs/ -Continue nuts/seeds daily I.e. almonds, walnuts, pecans [...] soup idea below) 2. For bread, use Bookatable (Livebookings) Brand Base Culture: https://Prot-On/ (Keto bread near you in [place]) -Avoid starches, canola oil and sugars in [...] Functional Medicine Team (Open M-F 8am-5pm): 1. Zazzlehart is the BEST form of communication to reach the Functional Medicine Team, see test results and request refills. Please allow 72 business hours for a response. Directions for signing up are included in your New Patient Folder. (Or you can go to [email or web address]) 2. For nutrition related questions or concerns, [employer] message your physician and include Attn: Kasey Hernández RD at the top of the message. [employer] messaging is meant to support implementation of [...] Supplements: Supplements can be ordered from the [facility]'s [facility]'s Online Store: https://store.The Matlet Group/#login New patients to the Healthy Living Shop will need to enter the provider code FUNCTIONAL to register their account. documented in this encounter [facility] 02-15-2023 History of Presen t illness Narrative [facility] Functional [facility] Nutrition Therapy: Follow-Up Assessment (Individual) IN PERSON Patient Name: Ann Marie Hill Past Medical History: PAST MEDICAL HISTORY Diagnosis Date Alzheimer disease (HCC) HTN (hypertension) Allergies: Ciprofloxacin, Penicillins, and Sulfa (Sulfonamide Antibiotics) Current Medications/Supplements Current Outpatient Medications on File Prior to Visit Medication Sig PhytoMulti 60s capsules (GiveLoop) Take 2 capsules daily, with meals. Glycine (Pure Encapsulations) Take 1 capsule 3 times daily in divided doses between meals. (1 [id number]=[id number]) B-Complex Plus (Pure Encapsulations) Take 1 capsule by mouth daily with food. Glutathione (MobAppCreator) Use 20 pumps daily (1000mg) divided doses [...] OmegaGenics EPA-DHA 2400 (High Concentrate EPA/DHA liquid) (GiveLoop) Take one teaspoon (5 ml) 1 times daily with food UT Synergy (Technorides) antibacterial Take 1 capsule by mouth twice daily. Neuromag ( Technorides ) 90 ct Take 3 capsules per [...] Would like more print outs today vs. [employer] resources Subjective (08/06/21) -Daughter christos on line: [...] Biochemical and Laboratory Data Conventional/Advanced Testing NutrEval FMV Date collected: Elevated Decreased Oxidative Stress 7 8-OHdG Mitochondrial Dysfunction 7 Magnesium Lactic Acid Isocitric Acid Succinic Acid Malic Acid [place] Imbalance 3 Toxic Exposure 8 Methylation Imbalance [...] Food Plan (Dairy-Free/Gluten-Free), with the following targets: -Ree Heights-3 Rich Fish (wild-caught salmon, mackerel, anchovies, sardines, rodrigues): twice per week -Continue grass-fed beef 3-4X/week -Add legumes 3-4X/week Three jamil salad recipe: https://wali/class db-mqrgy-kurr-salad/ -Add homemade vinaigrette coleslaw or green salad daily Vinegar based coleslaw: https://www.BabyJunk, Inc/vine lfs-wauxb-awnkhpkx/ -Continue nuts/seeds daily I.e. almonds, walnuts, pecans [...] idea below) 2. For bread, use Base Culture Brand Base Culture: https://Prot-On/ (Keto bread near you in [place]) -Avoid starches, canola oil and sugars in [...] Kasey Hernández RD documented in this encounter [facility] 02-03-2023 History of Presen t illness [...] OmegaGenics EPA-DHA 2400 (High Concentrate EPA/DHA liquid) (GiveLoop) Take one teaspoon (5 ml) 1 times daily with food UT Synergy (Technorides) antibacterial Take 1 capsule by mouth twice daily. Brain Misael Capsules (Technorides) Take 2 tablets by mouth w MEALS. Neuromag ( Technorides ) 90 ct Take 3 capsules per [...] diet to mix and match - cancelled prototype technician visit due to not having NutrEval [...] vitamin deficiency) at this time. Check with prototype technician on how to improve - stressed [...] Phenylacetic,Benzoic, DHPAA Detox Markers Yeast markers Citramalic [place] 3 Index NOrmal Oxidative stress Lipid 9.7 8OHdg 11 Heavy metals Other Oxalate markers (glyceric, glycolic, oxalic) - all elevated Maritza Nutreval Jun 2020 High Need: Mod Need: All B's Amino acids: Malabsorption markers: Bacterial dysbiosis markers: Fungal dysbiosis markers:arabinose 55 Toxin/detox markers: high Ree [place]-3 Index: 4.3 Glutathione level:998 Lipid peroxides:8.5 Toxic [...] , estradiol FUNCTIONAL MEDICINE PLAN: Meet with prototype technician to review NutrEval (with Christos) due [...] - use of 2 tablespoons of Galdamez [place] Lecithin Powder twice daily Consider Synapsin (compounded nasal spray) to assist for mood / anxiety - notify if wishing to consider. https://BMdr/article/m edication-compounding/rg3-synaps ri-hjlia-anbjl-hyuyh-vwjofp-syyw f-pwf-xmxxehnxi-memory-focus/ Stop the following: Brain Misael Lavella Multi t/d Stop the Functional Nutrition: per prototype technician Review and implement diet factors recommended through nutritional visit - use your health population health coach for discussion on how to implement [...] We recommend ordering supplementation online from the [facility] Healthy Living Shop as they are high quality therapeutic supplements. Healthy Living Shop [facility] offers an easy to use, convenient way to order supplementation recommended by your provider through the Healthy Living Shop. All of the products offered are considered high-quality, and adhere to specific criteria for quality and effectiveness including good manufacturing practices, use of clean products, free of fillers, binders, and other antigens. In addition, we follow third alliance party analysis for independent verification of active ingredients. Get started by following three easy steps: A. Visit the following webpage: https://Blue Ridge Networks.The Matlet Group/ Healthy Living Shop Statements on this site have not [...] For issues with your MRN please call [phone] Stress Management Hero Network[employer]. Neuro -new technology to use a wearable device to retrain brain and focus on nervous system reduction. To learn more of this technology by going to (ohn-bcr-fgraa) https://IronPearl/ Please look into this Heart Rate Variability [...] one of the Heart Math booklets off OpenPortal that fits your 'go to' emotion - [...] fully) . --- Polyvagal theory (Connor Ybarra) https://www.VENNCOMM/ --- Dynamic Neural Retraining System - (Ketty Christensen) https://retrainingtheSpace Star Technology.InDex Pharmaceuticals/a chioie-hopper/ --- Frias Program - (John Frias) Https://www.Gridpoint Systems/ Finding time for self (no multitasking) at this time to dedicate to breathing / relaxation process. Work on cultivating ted! Future Plans (for provider use): I spent a total of 45 minutes on the date of the service which included preparing to see the patient, gfzf-gs-ytai patient care, completing clinical documentation, obtaining and/or reviewing separately obtained history, performing a medically appropriate examination, and ordering medications, tests, or procedures. Christiana Montero MD documented in this encounter [facility] 10-31-2022 History of Presen t illness [...] OmegaGenics EPA-DHA 2400 (High Concentrate EPA/DHA liquid) (GiveLoop) Take one teaspoon (5 ml) 1 times daily with food UT Synergy (Technorides) antibacterial Take 1 capsule by mouth twice daily. Brain Misael Capsules (Technorides) Take 2 tablets by mouth w MEALS. Neuromag ( Technorides ) 90 ct Take 3 capsules per [...] diet to mix and match - cancelled prototype technician visit due to not having NutrEval [...] Stopped mold detox - sent labs to GP (pending) - home testnig. Frustrated with report [...] Fungal dysbiosis markers:arabinose 55 Toxin/detox markers: high [place]-3 Index: 4.3 Glutathione level:998 Lipid peroxides:8.5 Toxic [...] daylight exposure (Circadian) rhythm. Functional Nutrition: per prototype technician Review and implement diet factors recommended through nutritional visit - use your health population health coach for discussion on how to implement [...] We recommend ordering supplementation online from the [facility] TixAlert Shop as they are high quality therapeutic supplements. Healthy Living Shop [facility] offers an easy to use, convenient way to order supplementation recommended by your provider through the [employer] Living Shop. All of the products offered are considered high-quality, and adhere to specific criteria for quality and effectiveness including good manufacturing practices, use of clean products, free of fillers, binders, and other antigens. In addition, we follow third alliance party analysis for independent verification of active ingredients. Get started by following three easy steps: A. Visit the following webpage: https://[employer] Ridge [employer]let Group/ datatracker Statements on this site have not been [...] For issues with your MRN please call [phone] Stress Management Hero [employer] Inc. Neuro -new technology to use a wearable device to retrain brain and focus on nervous system reduction. To learn more of this technology by going to (kid-zrr-ymreg) https://IronPearl/ Please look into this Heart Rate Variability [...] one of the Heart Math booklets off OpenPortal that fits your 'go to' emotion - [...] fully) . --- Polyvagal theory (Connor Ybarra) https://www.madhu.com/ --- Dynamic Neural Retraining System - (Ketty Christensen) https://OmniGuide.com/a lor-grace/ --- Frias Program - (John Frias) Https://www.Reocar.InDex Pharmaceuticals/ Finding time for self (no multitasking) at this time to dedicate to breathing / relaxation process. Work on cultivating ted! Future Plans (for provider use): 1. GI Effects? 2. SANNA Metals? I spent a total of 30 minutes on the date of the service which included preparing to see the patient, kzzw-dd-zkkh patient care, completing clinical documentation, obtaining and/or reviewing separately obtained history, performing a medically appropriate examination, counseling and educating the patient/family/caregiver, ordering medications, tests, or procedures, and communicating with other HCPs (not separately reported). Christiana Montero MD documented in this encounter [facility] 10-28-2022 Miscellaneous Notes Spoke with patient's regarding NE urine collection for Monday's lab appointment. Evelyn Samuel LPN October 28, 2022 12:17 PM documented in this encounter [facility] 10-06-2022 Note PROCEDURE: XR HIP RT [...] authenticated by: ALEXIS CAAL Date: 2022-10-06 07:37 [facility] 10-06-2022 Note PROCEDURE: XR HIP RT [...] authenticated by: ALEXIS CAAL Date: 2022-10-06 07:37 [facility] 08-08-2022 Hospital Discharg e instructions Patient [...] Treatment for this condition includes: Antibiotic medicine. Qmrk-vwh-lnorccs medicines to treat discomfort. Drinking enough water [...] Follow these instructions at home: Medicines Take flvc-ory-vynixwq and prescription medicines only as told by [...] 07/05/2006 Document Revised: 09/12/2019 Document Reviewed: 04/04/2019 [employer] Renovations Patient Education 2020 [email or web address]. Follow Up Care 01/31/2022 15:18:00 With:GENO WATTS, Kunal Heller, URL Address: [facility] [address], [place] [id number]- [phone] When:04/08/2023 [facility] 07-25-2022 Instructions Christiana Montero MD - 07/25/2022 12:38 PM EDT FUNCTIONAL MEDICINE PLAN: Mold testing - will review in coming days your recent test to determine if binders are beneficial at this time. I may recommend use of binder (remove of mold) depending on testing. NutrEval - will send to your residence. (Convore blood/urine kit to assess for nutritional stores)---> [...] as nutritional evaluation) . Functional Nutrition: Per Electrical Estimator Review and implement diet factors recommended through nutritional visit - use your health population health coach for discussion on how to implement Supplement Support Review supplements - Based upon your lab assessments we may further recommend you consider additional items to these to supplement. No orders of the defined types were placed in this encounter. REMINDERS: Ordering Supplementation: We recommend ordering supplementation online from the [facility] Healthy Living Shop. It is felt these are high quality therapeutic supplements. datatracker (https://Blue Ridge Networks.Jawsome Dive Adventures) [facility] offers an easy to use, convenient way to order supplementation recommended by your provider through the Healthy Living Shop. All of the products offered are considered high-quality, and adhere to specific criteria for quality and effectiveness including good manufacturing practices, use of clean products, free of fillers, binders, and other antigens. In addition, we follow third alliance party analysis for independent verification of active ingredients. Get started by following three easy steps: A. Visit the webpage: https://Blue Ridge Networks.The Matlet Group/ datatracker Statements on this site have not been [...] For issues with your MRN please call [phone] Stress Management [employer]. Neuro -new technology to use a wearable device to retrain brain and focus on nervous system reduction. To learn more of this technology by going to (usq-cag-encti) https://IronPearl/ Behavioral Health Therapist: If I recommended counseling [...] one of the Heart Math booklets off OpenPortal that fits your 'go to' emotion - [...] Eduardo Gordon. (also has an poncho on Liquid Light / Flowify Limited) Insight Meditation Timer- (Free)-Great all-around poncho to [...] fully) . --- Polyvagal theory (Connor Ybarra) https://www.stephenTinyMob Games.com/ --- Dynamic Neural Retraining System - (Ketty Christensen) https://retrainingthebrain.com/a lor-grace/ --- Frias Program - (John Frias) Https://www.jose rafaelptaKakaMobi.InDex Pharmaceuticals/ Finding time for yourself (no multitasking) at this time to dedicate to breathing / relaxation process. Work on cultivating ted! You deserve it! documented in this encounter [facility] 07-25-2022 History of Presen t illness [...] saccharomyces boullardi 2 hrs away from nystatin/candibactin/diflucan. Sekv-Amrs-CN (Recombine) Take 1 capsule, 2 times daily with 4 oz or more of water. Glutathione (MobAppCreator) - Liver support/detox Use 8 pumps daily , divided doses through out the day. (2 pumps = 100 mg Glutathione). Work up slowly to the higher dose. B-Complex Plus (Pure Encapsulations) Take 2 capsules by mouth daily with food. Multi t/d 60 ct. (Pure Encapsulations) - multivitamin Take 1 capsule by mouth twice daily with meals. OmegaGenics EPA-DHA 2400 (High Concentrate EPA/DHA liquid) (GiveLoop) Take one teaspoon (5 ml) 1 times daily with food UT Synergy (Technorides) antibacterial Take 1 capsule by mouth twice daily. Brain Misael Capsules (Technorides) Take 2 tablets by mouth w MEALS. Neuromag ( Technorides ) 90 ct Take 3 capsules per [...] Never Smokeless tobacco: Never EVALUATION 07/25/2022 Christiana Montreo MD Last Visit on March 2022 Provider [...] NutrEval - will send to your residence. (Convore blood/urine kit to assess for nutritional stores)---> [...] as nutritional evaluation) . Functional Nutrition: Per Electrical Estimator Review and implement diet factors recommended through nutritional visit - use your health population health coach for discussion on how to implement Supplement Support Review supplements - maintain your B support at this time and Brain Misael only. Wait on Multivitamin until you have completed NutrEval for 2021. REMINDERS: Ordering Supplementation: We recommend ordering supplementation online from the [facility] [employer] Living Shop. It is felt these are high quality therapeutic supplements. datatracker (https://Blue Ridge Networks.Jawsome Dive Adventures) [facility] offers an easy to use, convenient way to order supplementation recommended by your provider through the datatracker. All of the products offered are considered high-quality, and adhere to specific criteria for quality and effectiveness including good manufacturing practices, use of clean products, free of fillers, binders, and other antigens. In addition, we follow third alliance party analysis for independent verification of active ingredients. Get started by following three easy steps: A. Visit the webpage: https://[employer] Ridge [employer].The Matlet Group/ datatracker Statements on this site have not been [...] For issues with your MRN please call [phone] Stress Management Hero [employer] Inc. Neuro -new technology to use a wearable device to retrain brain and focus on nervous system reduction. To learn more of this technology by going to (mxt-egw-kbjog) https://IronPearl/ Behavioral Health Therapist: If I recommended counseling [...] one of the Heart Math booklets off OpenPortal that fits your 'go to' emotion - [...] Eduardo Gordon. (also has an poncho on Apple / Google Play) Insight Meditation Timer- (Free)-Great all-around poncho to [...] fully) . --- Polyvagal theory (Connor Ybarra) https://www.stephenTinyMob Games.com/ --- Dynamic Neural Retraining System - (Ketty Christensen) https://retrainingthebrain.com/a lor-grace/ --- Frias Program - (John Frias) Https://www.guptaKakaMobi.InDex Pharmaceuticals/ Finding time for yourself (no multitasking) at this time to dedicate to breathing / relaxation process. Work on cultivating ted! You deserve it! I spent a total of 60 minutes on the date of the service which included preparing to see the patient, fdbl-ll-ciwd patient care, completing clinical documentation, obtaining and/or reviewing separately obtained history, counseling and educating the patient/family/caregiver, ordering medications, tests, or procedures, independently interpreting results (not separately reported), and communicating results to the patient/family/caregiver. Christiana Montero MD documented in this encounter [facility] 03-18-2022 Instructions Evita Calderon MD - [...] encounter. I recommend the supplements from the [facility] Healthy Living Store Online Store at https://Blue Ridge Networks.Gatekeeper System. InDex Pharmaceuticals/ as we have thoroughly evaluated the research and use only highest quality supplements. Please use code: functional. Future Plans: Mold Memory Follow up: Please schedule a follow up visit with the following Caregivers: Provider: [address] Montero in person LIFESTYLE PRESCRIPTION Functional Nutrition: Per chemistry physics teacher Sleep: Sleep goal for most adults is [...] Health Coaching: Please consider scheduling with our [facility] health coaches for a phone or virtual visit for accountability, goal setting and help with behavior globe changer the next 6-8 weeks to be successful with your goals. [phone]. Smart phone apps to begin a meditative [...] on your diet plan discussed with our chemistry physics teacher, allowing for gentle detoxification and decreasing inflammation - while we are gathering your lab results and combining those with your complete history to formulate a very personalized treatment plan. LAB results: Due to the complexity of the testing performed, we are not able to review labs via Fermentalgt or over the phone, but please know, [...] Also make sure to schedule with the chemistry physics teacher (this will not happen automatically) as you [...] appointment. You can access them on the Convore website and it can be beneficial if you review them prior to your next visit. [email or web address]. Read about NutrEval if this was ordered. documented in this encounter [facility] 03-18-2022 History of Presen t illness [...] saccharomyces boullardi 2 hrs away from nystatin/candibactin/diflucan. Gjzf-Iujt-XZ ([employer]) Take 1 capsule, 2 times daily with 4 oz or more of water. Glutathione (MobAppCreator) - Liver support/detox Use 8 pumps daily , divided doses through out the day. (2 pumps = 100 mg Glutathione). Work up slowly to the higher dose. B-Complex Plus (Pure Encapsulations) Take 2 capsules by mouth daily with food. Multi t/d 60 ct. (Pure Encapsulations) - multivitamin Take 1 capsule by mouth twice daily with meals. OmegaGenics EPA-DHA 2400 (High Concentrate EPA/DHA liquid) (GiveLoop) Take one teaspoon (5 ml) 1 times daily with food UT Quality Solicitors (Technorides) antibacterial Take 1 capsule by mouth twice daily. Brain Misael Capsules (Technorides) Take 2 tablets by mouth w MEALS. Neuromag ( Technorides ) 90 ct Take 3 capsules per [...] 22.31 kg/(m^2). Bioelectrical Impedance Analysis Results by Souche. Recent Results from: 03/18/22 at 13:34 PM [...] Fungal dysbiosis markers:arabinose 55 Toxin/detox markers: high [place]-3 Index: 4.3 Glutathione level:998 Lipid peroxides:8.5 Toxic [...] encounter. I recommend the supplements from the [facility] [employer] Living Store Online Store at https://Blue Ridge Networks.The Matlet Group/ as we have thoroughly evaluated the research and use only highest quality supplements. Please use code: functional. Future Plans: Follow up: Please schedule a follow up visit with the following Caregivers: Provider: [address] Montero in person LIFESTYLE PRESCRIPTION Functional Nutrition: Per chemistry physics teacher Sleep: Sleep goal for most adults is [...] Health Coaching: Please consider scheduling with our [facility] Functional Medicine health coaches for a phone or virtual visit for accountability, goal setting and help with behavior globe changer the next 6-8 weeks to be successful with your goals. [phone]. Smart phone apps to begin a meditative [...] on your diet plan discussed with our chemistry physics teacher, allowing for gentle detoxification and decreasing inflammation - while we are gathering your lab results and combining those with your complete history to formulate a very personalized treatment plan. LAB results: Due to the complexity of the testing performed, we are not able to review labs via Fermentalgt or over the phone, but please know, [...] Also make sure to schedule with the chemistry physics teacher (this will not happen automatically) as you [...] appointment. You can access them on the Convore website and it can be beneficial if you review them prior to your next visit. [email or web address]. Read about NutrEval if this was ordered. *Evita Calderon MD I spent a total of 30 minutes on the date of the service which included mqtn-tj-xzjf patient care, completing clinical documentation, obtaining and/or reviewing separately obtained history, performing a medically appropriate examination, counseling and educating the patient/family/caregiver and ordering medications, tests, or procedures. documented in this encounter [facility] 03-02-2022 Instructions EMMA Smalls - 03/02/2022 [...] in more information, contact our office at [phone]. We are happy to hear that Orestes [...] active individuals)? Do I want a monitored (/ access to emergency team) or non-monitored (calls [...] providers located near your home: Sarah Morataya COLLECTION DEVELOPMENT LIBRARIAN & Adriana Andrews COLLECTION DEVELOPMENT LIBRARIAN [facility], [address] [place] [address]. ([phone]). When there is a diagnosis of dementia, no matter the type, we encourage families to educate themselves, learn communication tips, and learn ways to adjust expectations over time. There are many resources available online. Three excellent resources are: The Alzheimer's Association (web site: alz.org/corado) available 24 hours a day, 7 days per week. Contact: Local: ; Toll free: [phone] We recommend family explore the Alzheimer's Association website to learn more about managing behavioral symptoms. You can click on the following tabs to gather more information on managing specific behaviors. Click on HELP AND SUPPORT -> CAREGIVING -> STAGES AND BEHAVIOR Family Caregiver [place] (web site: Caregiver.org) MABEL Abel-- a secure online solution for quality information, support, and resources for family caregivers. Contact: Toll-free number: [phone] Alzheimers.gov Find Alzheimer disease and related dementias [...] is needed, please call our social media coordinator EMMA Smalls at [phone]. As per our discussion of advanced directives, we understand you have these documents in place which is excellent. We have obtained a copy that will be scanned into your medical record. We would like you to return to [facility] for a follow up visit in 9-12 months. Our office can be reached by calling [phone] Option 1. Sincerely, MD Philomena Hampton RN Tangy Kirtz, RMA Miranda Falso, LISW documented in this encounter [facility] 03-02-2022 Nurse Note Ann Marie Hill is a 81 year old year old right handed woman Accompanied by: spouse. 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 Pt states that she is here for a check-up Vital Signs: BP 115/53 (BP Site: Left Arm, BP Position: Sitting, BP Cuff Size: Regular Adult) Pulse 75 Wt 56.6 kg (124 lb 12.8 oz) BMI 22.83 kg/m Philomena Mondragon RN documented in this encounter [facility] 03-02-2022 History of Presen t illness Narrative Reason for Consult: Alzheimer's dementia I had the pleasure of seeing this 81 year old year old female at the [facility]. The patient is referred by Evita Calderon [address] [place] [id number] Patient is accompanied by and information obtained [...] other two sons live in [place] and [place]). Housing: Lives with spouse Pt is occasionally left home alone if she is sleeping Agencies involved: Caregiver from [facility] visits once per week to stay with the pt while spouse runs errands. [employer] friends also assist. ADL'S: Independent with dressing, [...] saccharomyces boullardi 2 hrs away from nystatin/candibactin/diflucan. Mrtv-Szrk-KK (Recombine) Take 1 capsule, 2 times daily with 4 oz or more of water. Glutathione (MobAppCreator) - Liver support/detox Use 8 pumps daily , divided doses through out the day. (2 pumps = 100 mg Glutathione). Work up slowly to the higher dose. B-Complex Plus (Pure Encapsulations) Take 2 capsules by mouth daily with food. Multi t/d 60 ct. (Pure Encapsulations) - multivitamin Take 1 capsule by mouth twice daily with meals. OmegaGenics EPA-DHA 2400 (High Concentrate EPA/DHA liquid) (GiveLoop) Take one teaspoon (5 ml) 1 times daily with food [employer] Synergy (Technorides) antibacterial Take 1 capsule by mouth twice daily. Brain Misael Capsules (Technorides) Take 2 tablets by mouth w MEALS. Neuromag ( Technorides ) 90 ct Take 3 capsules per [...] per week) -Follow up in 1 year. Praasnna Bird, MS3 TEACHING PHYSICIAN NOTE OF PERSONAL [...] which included preparing to see the patient, [id number] patient care, performing a medically appropriate examination, completing clinical documentation, and on counseling/ eductaing the patient and the family. Han Britton MD documented in this encounter [facility] 01-31-2022 Hospital Discharg e instructions Patient [...] reconstructed. Follow these instructions at home: Take [id number] and prescription medicines only as told by [...] 10/21/2016 Document Revised: 05/08/2019 Document Reviewed: 05/08/2019 [employer] Patient Education 2020 [email or web address]. Follow Up Care 08/02/2021 15:26:51 With:GENO WATTS, Kunal Heller, URL Address: [facility] [address] [place] [address]- [phone] When: Unknown [facility] Evaluation + Plan note Future Appointments Appointment Date:08/08/2022 02:45:00 PM Scheduled Provider:Kunal LORA MD Location:[facility] Appointment Type:URO Office Visit [facility] Evaluation + Plan note Future Appointments Appointment Date:08/10/2022 08:45:00 AM Scheduled Provider: Location:[facility] Appointment Type:URO Nurse Visit Appointment Date:04/17/2023 02:30:00 PM Scheduled Provider:Kunal LORA MD Location:[facility] Appointment Type:URO Office Visit [facility] Evaluation + Plan note Future Appointments Appointment Date:04/17/2023 02:30:00 PM Scheduled Provider:Kunal LORA MD Location:[facility] Appointment Type:URO Office Visit [facility] Evaluation + Plan note Future Appointments Appointment Date:04/24/2023 02:15:00 PM Scheduled Provider:Kunal LORA MD Location:[facility] Appointment Type:URO Office Visit [facility] Evaluation note Diagnosis Cognitive communication deficit- Primary Alzheimer's dementia with behavioral disturbance, unspecified timing of dementia onset (HCC) documented in this encounter [facility] note* Diagnosis 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 documented in this encounter [facility] note* Diagnosis 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 Alzheimer's dementia with behavioral disturbance, unspecified timing of dementia onset documented in this encounter [facility] note* Diagnosis Memory change- Primary Memory loss Subclinical hypothyroidism Other specified acquired hypothyroidism Hypertension, unspecified type Hyperlipidemia, unspecified hyperlipidemia type 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 Impaired nutrient utilization Sleepiness Other alteration of consciousness Mold exposure Contact with and (suspected) exposure to mold On statin therapy On beta [place] at home documented in this encounter [facility] note* Diagnosis Memory change- Primary Memory loss Subclinical hypothyroidism Other specified acquired hypothyroidism 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 Impaired nutrient utilization 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) [facility] Diagnosis 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 Unspecified vitamin B deficiency Chemical exposure Contact with and (suspected) exposure to other potentially hazardous chemicals Poor diet Unspecified nutritional deficiency Impaired nutrient utilization [facility] Diagnosis 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 Unspecified vitamin B deficiency Poor diet Unspecified nutritional deficiency Dietary counseling and surveillance Dietary surveillance and counseling [facility] Diagnosis Memory change- Primary Memory loss Sundowning Reactive confusion Poor diet Unspecified nutritional deficiency Chemical exposure Contact with and (suspected) exposure to other potentially hazardous chemicals [facility] Diagnosis 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 Sundowning Reactive confusion Dietary counseling and surveillance Dietary surveillance and counseling [facility]* Diagnosis Carotid stenosis, bilateral Occlusion and stenosis of carotid artery without mention of cerebral infarction Benign hypertension Essential hypertension, benign documented in this encounter [facility] Work Phone: Evaluation note* Diagnosis Carotid stenosis, bilateral Occlusion and stenosis of carotid artery without mention of cerebral infarction Benign hypertension Essential hypertension, benign documented in this encounter [facility] Work Phone: Evaluation note* Diagnosis Other closed displaced fracture of proximal end of left humerus, initial encounter- Primary documented in this encounter [facility] note* Diagnosis Dysuria- Primary [facility] Diagnosis Acute cystitis without hematuria- Primary Dysuria documented in this encounter [facility] note* Diagnosis Acute cystitis without hematuria- Primary Dysuria [facility] Diagnosis Female genital prolapse, unspecified type- Primary Incomplete bladder emptying Recurrent UTI Urinary tract infection, site not specified documented in this encounter [facility] note* Diagnosis History of left hip hemiarthroplasty- Primary Other closed displaced fracture of proximal end of left humerus with routine healing, subsequent encounter documented in this encounter [facility] note* Diagnosis Abnormal finding of diagnostic imaging- Primary Other nonspecific (abnormal) findings on radiological and other examinations of body structure [facility] Diagnosis Other closed displaced fracture of proximal end of left humerus with routine healing, subsequent encounter- Primary History of left hip hemiarthroplasty [facility]* Patient is here [...] reviewed with her her recent lab work -[facility] DO Work Phone: History of Present [...] me change in cardiac status or symptoms -[facility] DO Work Phone: History of Present [...] try to retrieve her recent lab work -[facility] DO Work Phone: Hospital course Narrative No data available for this section [facility] Hospital Discharge instructions No data available for this section [facility] progress note No data available for this section [facility] reason for referral (narrative)* Diagnostic Procedure Only (Routine) - Pending Review Specialty Diagnoses / Procedures Referred By Toña cedillo Referred To Contact XR IMAGING Diagnoses Other closed displaced fracture of proximal end of left humerus, initial encounter Procedures XR SHOULDER LIMITED 2V AP/TRUE AP LEFT RADEX SHOULDER COMPLETE MINIMUM 2 VIEWS Mayank Hanson MD [address] [place] [address] [place] [address] Referral ID Status Reason Start Date Expiration Date Visits Requested Visits Authorized [id number] Pending Review Auto-Generat ed Referral 01/24/2024 02/22/2025 1 1 [facility] for referral (narrative)* Diagnostic Procedure Only (Routine) - Pending Review Specialty Diagnoses / Procedures Referred By Toña cedillo Referred To Contact XR IMAGING Diagnoses Other closed displaced fracture of proximal end of left humerus with routine healing, subsequent encounter Procedures XR SHOULDER LIMITED 2V AP/TRUE AP LEFT RADEX SHOULDER COMPLETE MINIMUM 2 VIEWS Mayank Hanson MD [address] [place] [address] [place] [address] Referral ID Status Reason Start Date Expiration Date Visits Requested Visits Authorized [id number] Pending Review Auto-Generat ed Referral 02/21/2024 03/22/2025 1 1 [facility] Summary Purpose Family History No Family [...] FoundDocuments on File Type Date Recorded 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 Expl 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 Advance Directive(s) 03/02/2022 2:05 PM Ad torres Directive Documents on File Type Date Recorded 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 Expl anation Advance Directive(s) 03/02/2022 2:05 PM Ad torres Directive Date Activated Date Inactivated Comments 12/26/2023 12:01 AM Question Answer Comments DNR Order Discussed With: Surrogate Decision Renny er Surrogate Decision Maker Name: Daughter Christos Date Activated Date Inactivated Comments 12/25/2023 11:54 PM 12/26/2023 12:01 AM Question Answer Comments Full Code Order Discussed With: Patient Documents on File Type Date Recorded 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 Expl anation Advance Directive(s) 01/03/2024 2:21 PM Advance Directive(s) 03/02/2022 2:05 PM Ad torres Directive Date Activated Date Inactivated Comments 12/26/2023 12:01 AM 01/01/2024 8:27 PM Documents on File Type Date Recorded 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 Expl anation Advance Directive(s) 01/03/2024 2:21 PM Advance Directive(s) 03/02/2022 2:05 PM Ad torres Directive Date Activated Date Inactivated Comments 12/26/2023 12:01 AM 01/01/2024 8:27 PM Question Answer Comments DNR Order Discussed With: Surrogate Decision [facility] Surrogate Decision Maker Name: Sherman Sarabia Date Activated Date Inactivated Comments 12/25/2023 11:54 PM 12/26/2023 12:01 AM Question Answer Comments Full Code Order Discussed With: Patient Date Activated Date Inactivated Comments 02/03/2024 5:01 PM Question Answer Comments DNR Order Discussed With: Surrogate Decision [facility] er Date Activated Date Inactivated Comments 12/26/2023 12:01 AM 01/01/2024 8:27 PM Question Answer Comments DNR Order Discussed With: Surrogate Decision [facility] Surrogate Decision Maker Name: Sherman Sarabia Date Activated Date Inactivated Comments 12/25/2023 11:54 PM 12/26/2023 12:01 AM Question Answer Comments Full Code Order Discussed With: Patient Date Activated Date Inactivated Comments 02/03/2024 5:01 PM 02/12/2024 9:08 PM Date Activated Date Inactivated Comments 02/03/2024 5:01 PM 02/12/2024 9:08 PM Question Answer Comments DNR Order Discussed With: Surrogate Decision [facility] er Date Activated Date Inactivated Comments 12/26/2023 12:01 AM 01/01/2024 8:27 PM Question Answer Comments DNR Order Discussed With: Surrogate Decision [facility] Surrogate Decision Maker Name: Sherman Sarabia Date Activated Date Inactivated Comments 12/25/2023 11:54 PM 12/26/2023 12:01 AM Question Answer Comments Full Code Order Discussed With: Patient Chief Complaint ANN MARIE HILL is being seen for ABNORMAL STRESS.ANN MARIE HILL is being seen for an annual follow-up of.ANN MARIE HILL is being seen for an annual follow-up of. Reason for Referral Specialty Diagnoses / Procedures Referred By Contac t Referred To Contact Cardiology Diagnoses Carotid stenosis, bilateral Benign hypertension Procedures Vascular US carotid artery duplex bilateral Mary Anne Snow MD [address] [address] Referral ID Status Reason Start Date Expiration Date Visits Requested Visits Authorized [id number] Authorized Perform Procedure 06/25/2023 12/22/2023 1 1 Specialty Diagnoses / Procedures Referred By Contac t Referred To Contact Psychiatry / ADULT PSYCHIATRY Diagnoses Alzheimer's dementia with behavioral disturbance, unspecified timing of dementia onset Procedures CONSULT TO PSYCHIATRY OFFICE/OUTPATIENT [facility] 60-74 MINUTES Evita Calderon MD [address] [place] [address] Hemal Hopper MD [address] [place] [address] Referral ID Status Reason Start Date Expiration Date Visits Requested Visits Authorized [id number] Pending Review PCP Requested Referral 06/17/2022 06/17/2023 1 1 Specialty Diagnoses / Procedures Referred By Contac t Referred To Contact [facility] Diagnoses Cognitive communication deficit Procedures CONSULT TO SPEECH THERAPY OFFICE/OUTPATIENT [facility] 60-74 MINUTES Han Britton MD [facility] [place] [address] [facility] [address] [place] [id number] Referral ID Status Reason Start Date Expiration Date Visits Requested Visits Authorized [id number] Pending Review Auto-Generat ed Referral 03/02/2022 03/02/2023 1 1 Additional Source Comments INFORMATION SOURCE (unrecogn ized section and content) DATE CREATED AUTHOR 04/03/2018 [facility] DATE CREATED AUTHOR AUTHOR'S ORGANIZ ATION 06/25/2020 [facility] DATE CREATED AUTHOR AUTHOR'S ORGANIZ ATION 11/07/2022 [facility] DATE CREATED AUTHOR AUTHOR'S ORGANIZ ATION 06/07/2023 [facility] DATE CREATED AUTHOR AUTHOR'S ORGANIZ ATION 06/07/2023 [facility] DATE CREATED AUTHOR AUTHOR'S ORGANIZ ATION 07/23/2023 [facility] DATE CREATED AUTHOR AUTHOR'S ORGANIZ ATION 09/22/2023 [facility] DATE CREATED AUTHOR AUTHOR'S ORGANIZ ATION 01/12/2024 [facility] DATE CREATED AUTHOR AUTHOR'S ORGANIZ ATION 01/30/[address] [facility] DATE CREATED AUTHOR AUTHOR'S ORGANIZ ATION 02/29/2024 [facility] DATE CREATED AUTHOR AUTHOR'S ORGANIZ ATION 04/28/2024 [facility] Source Comments (unrecognize d section and content) In the event this informatio n is protected by the Federal Confidentiality of Alcohol and Drug Abuse Patient Records regulations: The Federal rules restrict any use of the information to criminally investigate or prosecute any alcohol or drug abuse patient.[facility] the event this information is protected by the Federal Confidentiality of Alcohol and Drug Abuse Patient Records regulations: The Federal rules restrict any use of the information to criminally investigate or prosecute any alcohol or drug abuse patient.[facility] HospitalIn the event this information is protected by the Federal Confidentiality of Alcohol and Drug Abuse Patient Records regulations: The Federal rules restrict any use of the information to criminally investigate or prosecute any alcohol or drug abuse patient.[facility] HospitalIn the event this information is protected by the Federal Confidentiality of Alcohol and Drug Abuse Patient Records regulations: The Federal rules restrict any use of the information to criminally investigate or prosecute any alcohol or drug abuse patient.[facility] HospitalIn the event this information is protected by the Federal Confidentiality of Alcohol and Drug Abuse Patient Records regulations: The Federal rules restrict any use of the information to criminally investigate or prosecute any alcohol or drug abuse patient.[facility] HospitalIn the event this information is protected by the Federal Confidentiality of Alcohol and Drug Abuse Patient Records regulations: The Federal rules restrict any use of the information to criminally investigate or prosecute any alcohol or drug abuse patient.[facility] HospitalIn the event this information is protected by the Federal Confidentiality of Alcohol and Drug Abuse Patient Records regulations: The Federal rules restrict any use of the information to criminally investigate or prosecute any alcohol or drug abuse patient.[facility] HospitalIn the event this information is protected by the Federal Confidentiality of Alcohol and Drug Abuse Patient Records regulations: The Federal rules restrict any use of the information to criminally investigate or prosecute any alcohol or drug abuse patient.[facility] HospitalIn the event this information is protected by the Federal Confidentiality of Alcohol and Drug Abuse Patient Records regulations: The Federal rules restrict any use of the information to criminally investigate or prosecute any alcohol or drug abuse patient.[facility] HospitalIn the event this information is protected by the Federal Confidentiality of Alcohol and Drug Abuse Patient Records regulations: The Federal rules restrict any use of the information to criminally investigate or prosecute any alcohol or drug abuse patient.[facility] HospitalIn the event this information is protected by the Federal Confidentiality of Alcohol and Drug Abuse Patient Records regulations: The Federal rules restrict any use of the information to criminally investigate or prosecute any alcohol or drug abuse patient.[facility] HospitalIn the event this information is protected by the Federal Confidentiality of Alcohol and Drug Abuse Patient Records regulations: The Federal rules restrict any use of the information to criminally investigate or prosecute any alcohol or drug abuse patient.[facility] HospitalIn the event this information is protected by the Federal Confidentiality of Alcohol and Drug Abuse Patient Records regulations: The Federal rules restrict any use of the information to criminally investigate or prosecute any alcohol or drug abuse patient.[facility] HospitalIn the event this information is protected by the Federal Confidentiality of Alcohol and Drug Abuse Patient Records regulations: The Federal rules restrict any use of the information to criminally investigate or prosecute any alcohol or drug abuse patient.[facility] HospitalIn the event this information is protected by the Federal Confidentiality of Alcohol and Drug Abuse Patient Records regulations: The Federal rules restrict any use of the information to criminally investigate or prosecute any alcohol or drug abuse patient.[facility] HospitalIn the event this information is protected by the Federal Confidentiality of Alcohol and Drug Abuse Patient Records regulations: The Federal rules restrict any use of the information to criminally investigate or prosecute any alcohol or drug abuse patient.[facility] HospitalIn the event this information is protected by the Federal Confidentiality of Alcohol and Drug Abuse Patient Records regulations: The Federal rules restrict any use of the information to criminally investigate or prosecute any alcohol or drug abuse patient.[facility] HospitalIn the event this information is protected by the Federal Confidentiality of Alcohol and Drug Abuse Patient Records regulations: The Federal rules restrict any use of the information to criminally investigate or prosecute any alcohol or drug abuse patient.[facility] HospitalIn the event this information is protected by the Federal Confidentiality of Alcohol and Drug Abuse Patient Records regulations: The Federal rules restrict any use of the information to criminally investigate or prosecute any alcohol or drug abuse patient.[facility] HospitalIn the event this information is protected by the Federal Confidentiality of Alcohol and Drug Abuse Patient Records regulations: The Federal rules restrict any use of the information to criminally investigate or prosecute any alcohol or drug abuse patient.[facility] HospitalIn the event this information is protected by the Federal Confidentiality of Alcohol and Drug Abuse Patient Records regulations: The Federal rules restrict any use of the information to criminally investigate or prosecute any alcohol or drug abuse patient.[facility] HospitalIn the event this information is protected by the Federal Confidentiality of Alcohol and Drug Abuse Patient Records regulations: The Federal rules restrict any use of the information to criminally investigate or prosecute any alcohol or drug abuse patient.[facility] HospitalIn the event this information is protected by the Federal Confidentiality of Alcohol and Drug Abuse Patient Records regulations: The Federal rules restrict any use of the information to criminally investigate or prosecute any alcohol or drug abuse patient.[facility] HospitalIn the event this information is protected by the Federal Confidentiality of Alcohol and Drug Abuse Patient Records regulations: The Federal rules restrict any use of the information to criminally investigate or prosecute any alcohol or drug abuse patient.[facility] HospitalIn the event this information is protected by the Federal Confidentiality of Alcohol and Drug Abuse Patient Records regulations: The Federal rules restrict any use of the information to criminally investigate or prosecute any alcohol or drug abuse patient.[facility] HospitalIn the event this information is protected by the Federal Confidentiality of Alcohol and Drug Abuse Patient Records regulations: The Federal rules restrict any use of the information to criminally investigate or prosecute any alcohol or drug abuse patient.[facility] HospitalIn the event this information is protected by the Federal Confidentiality of Alcohol and Drug Abuse Patient Records regulations: The Federal rules restrict any use of the information to criminally investigate or prosecute any alcohol or drug abuse patient.[facility] HospitalIn the event this information is protected by the Federal Confidentiality of Alcohol and Drug Abuse Patient Records regulations: The Federal rules restrict any use of the information to criminally investigate or prosecute any alcohol or drug abuse patient.[facility] HospitalIn the event this information is protected by the Federal Confidentiality of Alcohol and Drug Abuse Patient Records regulations: The Federal rules restrict any use of the information to criminally investigate or prosecute any alcohol or drug abuse patient.[facility] HospitalIn the event this information is protected by the Federal Confidentiality of Alcohol and Drug Abuse Patient Records regulations: The Federal rules restrict any use of the information to criminally investigate or prosecute any alcohol or drug abuse patient.[facility] Teams (unrecognized sec tion and content) Director Life Insurance Relationship Specialty Start Date End Date Savana Prater MD [address] [phone] PCP - General Family Practice 07/15/20 Director Life Insurance Relationship Specialty Start Date End Date Savana Prater MD [address] [place] [address] PCP - General Family Practice 07/15/20 Director Life Insurance Relationship Specialty Start Date End Date Savana Prater MD [address] [phone] PCP - General Family Practice 07/15/20 Director Life Insurance Relationship Specialty Start Date End Date Savana Prater MD [address] [place] [address] PCP - General Family Practice 07/15/20 Director Life Insurance Relationship Specialty Start Date End Date Savana Prater MD [address] [place] [address] PCP - General Family Medicine 07/15/20 Director Life Insurance Relationship Specialty Start Date End Date Savana Prater MD [address] [place] [address] PCP - General Family Medicine 07/15/20 Director Life Insurance Relationship Specialty Start Date End Date Savana Prater MD [address] [place] [address] PCP - General Family Medicine 07/15/20 Director Life [employer] Relationship Specialty Start Date End Date Savana Prater MD [address] [place] [address] PCP - General Family Medicine 07/15/20 Director Life [employer] Relationship Specialty Start Date End Date Savana Prater MD [address] [place] [address] PCP - General Family Medicine 07/15/20 Director Life [employer] Relationship Specialty Start Date End Date Savana Prater MD PCP - General Family Medicine 07/15/20 Director Life [employer] Relationship Specialty Start Date End Date Savana Prater MD PCP - General Family Medicine 07/15/20 Director Life [employer] Relationship Specialty Start Date End Date Savana Prater MD PCP - General Family Medicine 07/15/20 Director Life Insurance Relationship Specialty Start Date End Date Savana Prater MD PCP - General Family Medicine 07/15/20 Director Life Insurance Relationship Specialty Start Date End Date Savana Prater MD PCP - General Family Medicine 07/15/20 Director Life Insurance Relationship Specialty Start Date End Date Savana Prater MD PCP - General Family Medicine 07/15/20 Director Life [employer] Relationship Specialty Start Date End Date Savana Prater MD PCP - General Family Medicine 07/15/20 Director Life [employer] Relationship Specialty Start Date End Date Savana Prater MD [address] [place] [address] PCP - General 09/11/19 Director Life Insurance Relationship Specialty Start Date End Date Savana Prater MD [address] [place] [address] PCP - General 09/11/19 Director Life Insurance Relationship Specialty Start Date End Date Savana Prater MD PCP - General Family Medicine 07/15/20 12/25/23 Director Life Insurance Relationship Specialty Start Date End Date Festus Grimes MD [address] [facility] [address] [place] [address] PCP - General Internal Medicine 12/26/23 Director Life Insurance Relationship Specialty Start Date End Date Festus Grimes MD [address] [facility] [address] [place] [address] PCP - General Internal Medicine 12/26/23 Director Life Insurance Relationship Specialty Start Date End Date Festus Grimes MD [address] [facility] [address] [place] [address] PCP - General Internal Medicine 12/26/23 Director Life [employer] Relationship Specialty Start Date End Date Savana Prater MD [address] [place] [address] PCP - General Family Medicine 02/05/24 Torri Lambert, JADA Specialty Safety Manager Orthopedics 02/04/2403/12/24 Director Life [employer] Relationship Specialty Start Date End Date Savana Prater MD [address] [place] [address] PCP - General Family Medicine 02/05/24 Torri Lambert, RN Specialty Safety Manager Orthopedics 02/04/2403/12/24 Director Life [employer] Relationship Specialty Start Date End Date Savana Prater MD [address] [place] [phone] PCP - General Family Medicine 02/05/24 Torri Lambert, RN Specialty Safety Manager Orthopedics 02/04/2403/12/24 Director Life Insurance Relationship Specialty Start Date End Date Savana Prater MD [address] [place] [phone] PCP - General Family Medicine 02/05/24 Torri Lambert, RN Specialty Safety Manager Orthopedics 02/04/2403/12/24 Director Life Insurance Relationship Specialty Start Date End Date Savana Prater MD [address] [place] [address] PCP - General Family Medicine 02/05/24 Torri Lambert, RN Specialty Safety Manager Orthopedics 02/04/2403/12/24 Director Life Insurance Relationship Specialty Start Date End Date Savana Prater MD [address] [place] [id number] PCP - General Family Medicine 02/05/24 Reason for Visit (unrecogniz ed section and content) Reason Comments New Patient Evaluation Specialty Diagnoses / Procedures Referred By Contac t Referred To Contact Neurology / NEUROLOGY Diagnoses Alzheimer's dementia with behavioral disturbance, unspecified timing of dementia onset (HCC) Procedures CONSULT TO NEUROLOGY NEW PATIENT VISIT LEVEL 5 Evita Calderon MD [address] [place] [address] Neur Continuity Main [address] [place] [id number] Referral ID Status Reason Start Date Expiration Date Visits Requested Visits Authorized [id number] Pending Review PCP Requested Referral 04/01/2021 04/01/2022 1 1 Reason Comments Established Patient Reason Comments Established Patient Memory Loss New Patient Reason Comments Patient Question Reason Comments Appointment Specialty Diagnoses / Procedures Referred By Contac t Referred To Contact Cardiology Diagnoses Carotid stenosis, bilateral Benign hypertension Procedures Vascular US carotid artery duplex bilateral Mary Anne Snow MD [address] [facility] [address], [address] [address] Referral ID Status Reason Start Date Expiration Date Visits Requested Visits Authorized [id number] Authorized Perform Procedure 06/25/2023 12/22/2023 1 1 Reason Comments Reason Comments New Reason Comments UTI UTI x2-3 weeks. High er frequency. Burning since today. Reason Comments UTI Reason Onset Date Comments Refill Request 02/07/2024 Reason Onset Date Comments ACM JAMILAH RN 02/20/2024 E.D. Utilizat ion Review per Payer Request. Reason Comments New Patient Reason Comments Follow Up Reason Onset Date Comments ACM JAMILAH RN 02/27/2024 E.D. Utilizat ion Review per Payer Request. Reason Comments Follow Up Pain FOR RECORDS PERTAINING TO PATIENTS WHO ARE [...] BE BASED ON THE PRIMARY CLINICAL RECORDS. [facility]. provides no warranty or guarantee of the accuracy or completeness of information in this document.
--- OUTSIDE RECORDS SUMMARY | 2024-05-08 04:45 | XMS_ITS | CCD ---
Author Organization [facility] Care Team Providers Care Lot Attendant Name Role Phone MARY ANNE SNOW Unavailable Unavailable MARY ANNE SNOW Unavailable Unavailable Savana Prater Unavailable Unavailable Unavailable Savana Prater MD Primary Care Provider [phone] Savana Prater Primary Care Physician Savana Prater MD Primary Care Provider [phone] Savana Prater MD Primary Care Provider [phone] DR SAVANA PRATER Admitting Unavailable HOY, DR [...] Unavailable JOSI, DR SAWANT Primary Care Unavailable SHERITAY, DR SAWANT Admitting Unavailable JOSI, DR SAWANT Attending Unavailable SHERITAY, DR SAWANT Consulting Unavailable ZIEBER, DR SAMM Heller Consulting Unavailable SHERITAY, DR SAWANT Primary Care Unavailable JOSI, DR SAWANT Admitting Unavailable JOSI, DR SAWANT Attending Unavailable JOSI, DR SAWANT Consulting Unavailable WEST, DR ALEXIS Elizabeth Consulting Unavailable Savana Prater MD Primary Care Provider [phone] Mary Anne Snow Referring Unavaila sera Snow, Dr. Zhao Attending Unavaila Dr. Savana Muniz Primary Care Unavail able ELLEN COOK Admitting Unavailable ELLEN COOK Attending Unavailable ELLEN COOK Attending Unavailable Kunal LORA Attending Unavailable Kunal LORA Attending Unavailable Leonor Phillips Attending Unavailable Kunal LORA Attending Unavailable Savana Prater MD Primary Care Provider [phone] MAUREEN BALLESTEROS Attending Unavailable MAUREEN BALLESTEROS Referring Unavailable Savana Prater MD Primary Care Provider [phone] Festus Grimes MD Primary Care Provider ARAMIS NASCIMENTO Consulting Unavailable SAVANA PRATER Primary Care Unavailable ARVIN GOINS Admitting Unavailable AKI COOK Attending Unavailable Unavailable Primary Care Provider UnavailSUSI Floyd Attending Unavailable ZO BLACKMON Attending Unavailable Torri Lambert RN Unavailable Unavailable Savana Prater MD Primary Care Provider [phone] HELIO GOFF Attending Unavailable SAVANA PRATER Primary Care Unavailable SAVANA PRATER Primary Care Unavailable CHRISTIANA MONTERO Attending Unavailable SHELLEY MITCHELL Attending Unavailable SAVANA PRATER Primary Care Unavailable ARAMIS JIMENES Attending Unavailable [...] drug (finding) 09-03-20 13 Unknown (qualifier value) [facility] y 250 DO Work Phone: (5 sources) Sulfamethoxazole; Translations: [sulfa] Drug Allergy Rash [facility] y 250 DO Work Phone: (20 sources) Ciprofloxacin; Translations: [CIPROFLOXACIN] Drug Allergy 06-13-20 19 Unknown [facility] (3 sources) Penicillins Drug Allergy 09-03-20 13 Hives [facility] (20 sources) Sulfonamides (Antibiotic); Translations: [SULFA (SULFONAMIDE ANTIBIOTICS)] Drug Allergy 06-13-20 19 Rash [facility] (8 sources) Sulfonamides (Antibiotic); Translations: [sulfa drugs] Drug allergy Unknown (qualifier value) [facility] (20 sources) Penicillins Drug Allergy 09-03-20 13 Hives [facility] (12 sources) NITROFURANTOIN, MACROCRYSTALS / Nitrofurantoin, Monohydrate; Translations: [nitrofurantoin] Drug Allergy 09-14-20 21 Itching [facility] (1 source) Ciprofloxacin Drug Allergy [facility] (1 source) Penicillins Drug allergy (disorder) 09-03-20 13 [facility] (1 source) Sulfonamides (Antibiotic) Drug allergy (disorder) [facility] (15 sources) Angiotensin-conver ting enzyme inhibitor agent; Translations: [YULI INHIBITORS] Drug Allergy 12-25-19 24 Unknown [facility] (5 sources) Angiotensin-conver ting enzyme inhibitor agent Drug Allergy 12-25-19 24 [facility] (5 sources) Nitrofurantoin Drug Allergy 09-14-20 21 Itching [facility] (5 sources) Penicillins Drug Allergy 09-03-20 13 Hives, Rash [facility] (1 source) NITROFURANTOIN MONOHYD/M-CRYST; Translations: [NITROFURANTOIN MONOHYD/M-CRYST] Propensity to adverse reactions to drug (disorder) 09-14-20 21 [facility] Other [place] Repository Medications Current Medications Medication Drug Class(es) [...] uth daily with food. Brain Misael Capsules ([employer]) (12 sources) Start: 07-08-2020 End: 02-04-2023 take 2 tablets by mouth at mealtime Brain Misael Capsules ([employer]) Take 2 tablets by mouth w MEALS. 0 07/08/2020 02/04/2023 Discontinued Start: 07-08-2020 take 2 tablets by mo uth at mealtime Brain Misael Capsules ([employer]) Take 2 tablets by mouth w MEALS. [...] daily. 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 (2 pumps = 100 mg Glutathione) 0 02/04/2023 12/26/2023 Discontinued (Erroneous entry) Start: 02-04-2023 Glutathione ([employer].) Indications: Late onset Alzheimer's disease with behavioral [...] daily in divided doses between meals. 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 (1 dbgfbrx=786vh) 0 02/04/2023 Active Comment on above: Take 1 capsule 3 fidel es daily in divided doses between meals. (1 jfsqmjo=142ec) hydrOXYzine hydrochloride 25 mg oral tablet (16 [...] uth twice daily with meals. Neuromag ( [employer] ) 90 ct (19 sources) Start: 07-08-2020 End: 12-26-2023 Neuromag ( [employer] ) 90 ct Take 3 capsules per [...] days. 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) Take one teaspoon (5 ml) 1 times daily with food 0 07/08/2020 12/26/2023 Discontinued (Erroneous entry) Start: 07-08-2020 OmegaGenics EP A-DHA 2400 (High Concentrate EPA/DHA liquid) ([employer]) Indications: ASCVD (arteriosclerotic cardiovascular disease) , Hyperlipidemia, unspecified hyperlipidemia type , Hypertension, unspecified type , 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 0 [...] Active take 2 tablets by mouth once temo ly potassium chloride ER (KLOR-CON) 20 mEq tablet Take 40 mEq by mouth once daily. 0 Active Comment on above: Take 40 mEq by mouth once daily. [facility] 7 days. rosuvastatin calcium [...] capsule daily with a meal. UT Synergy ([employer]) antibacterial (19 sources) Start: 0 End: 4 take 1 capsule by mouth twice daily UT Synergy ([employer]) antibacterial Take 1 capsule by mouth twice daily. 0 07/08/2020 12/26/2023 Discontinued (Erroneous entry) Start: 07-08-2020 take 1 capsule by mo [facility] twice daily UT Synergy ([employer]) antibacterial Take 1 capsule by mouth twice daily. 0 07/08/2020 Active Comment on above: Take 1 capsule by mo [facility] twice daily. valsartan 80 mg oral tablet [...] Ordered take 1 capsule by mouth once etmo ly vitamin E, dl,tocopheryl acet, (VITAMIN E, [...] mg by mout h twice daily. Glutathione ([employer]) - Liver support/detox (8 sources) Start: 12-01-2021 End: 07-25-2022 Glutathione ([employer]) - Liver support/detox Use 8 pumps daily , divided doses through out the day. (2 pumps = 100 mg Glutathione). Work up slowly to the higher dose. 0 12/01/2021 07/25/2022 Discontinued Start: 12-01-2021 Glutathione (Q [employer]) - Liver support/detox Use 8 pumps daily [...] Take 10 mg by mouth once daily. Ondp-Deck-ZH ([employer]) (8 sources) Start: 12-01-19 End: 07-25-20 Pzdk-Ljfp-JE ([employer]) Take 1 capsule, 2 times daily with 4 oz or more of water. 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; Translations: [FDC CURRENT USE OF ASPIRIN] Onset: 11-07-2022 Episodic Other aftercare (1 source) Other ad terminal makeup operator (current) drug therapy; Translations: [OTH OIL EXPELLER OPERATOR CURRENT DRUG THERAPY] Onset: 11-07-2022 Episodic Other [...] Reference Range Facility CNOVon 04-24-2024 CNOV Normal [facility] CNCOon 03-21-2024 CNCO Letter Text Normal [facility] CNOVon 02-21-2024 CNOV Normal [facility] XR Shoulder - left 2 Viewson 02-21-2024 Two views left shoulder demonstrate no change in position of the displaced proximal humerus fracture as compared to initial presentation films. There is increased bone activity within the proximal humerus. No new fracture identified. [facility] RADIOLOGY [facility] Radiology Study observation (narrative) [facility] CNOVon 02-20-2024 CNOV Office Visit (BETYP ) ANN MARIE HILL ([id number]) 1940 F Date Time Provider Department 02/20/24 1:00 PM HELIO GOFF During your visit today, we recorded the following information about you: Blood pressure Weight Height 118/72 76.2 kg 1.575 m Helio Goff, TABLE ASSEMBLER.YAM CURER 02/20/2024 4:19 PM Signed Female Pelvic Medicine AND Reconstructive Surgery Consult CHIEF COMPLAINT: Ann Marie Hill is a 83 year old female who presents for consultation requested by Self Referred for an opinion regarding Pelvic Organ Prolapse . HISTORY OF PRESENT ILLNESS: Ann Marie presents with daughter, Christos and , Michael. She suffers from Alzheimer's disease and currently resides at [facility] in [place]. She recently underwent surgery for a fractured hip. She has been wearing pessary (incontinence dish) but Christos is very opposed to continuing with these. She reports Ann Marie becomes extremely distressed with pelvic exams. 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 Christos strongly feels this a violation of [...] Michael is POA. Medical and Symptom History: OIL FIELD WORKER HISTORY: Last Pap: NA; Last Mammogram: Her [...] [place] ED NOTEon 02-13-2024 ED NOTE Normal [facility] ED NOTE HNO ID: [id number] Author: RANDELL NELSON RN Service: Emergency Medicine Author Type: Registered Nurse Type: ED Notes Filed: 02/13/2024 00:09 Note Text: Report called to [place] [facility] Normal [facility] ALLIED HEALTHon 02-12-2024 ALLIED HEALTH Normal [facility] Basic metabolic 2000 panelon 02-12-2024 Anion gap [Moles/Vol] 13 mmol/L Normal 9-18 [facility] Comment on above: Order Comment: Speci men Type: BLOOD SPECIMENOrdering Facility: [facility] Address: [address] [place] [address] Performed By: #### 2 4321-2 ####[facility] LABORATORYCLIA [id number] [place] [address] [place] Calcium [Mass/Vol] 9.0 mg/dL Normal 8.5-10.2 [facility] Comment on above: Order Comment: Speci men Type: BLOOD SPECIMENOrdering Facility: [facility] Address: [address] [place] [address] Performed By: #### 2 4321-2 ####[facility] LABORATORYCLIA [id number] [place] [address] [place] Chloride [Moles/Vol] 99 mmol/L Normal 97-105 [facility] Comment on above: Order Comment: Speci men Type: BLOOD SPECIMENOrdering Facility: [facility] Address: [address] [place] [address] Performed By: #### 2 4321-2 ####[facility] LABORATORYCLIA [id number] [place] [address] [place] CO2 [Moles/Vol] 24 mmol/L Normal 22-30 [facility] Comment on above: Order Comment: Speci men Type: BLOOD SPECIMENOrdering Facility: [facility] Address: [address] [place] [address] Performed By: #### 2 4321-2 ####[facility] LABORATORYCLIA [id number] [address] STATES OF [facility] Creatinine [Mass/Vol] 0.70 mg/dL Normal 0.58-0.96 [facility] Comment on above: Order Comment: Kristin paige Type: BLOOD SPECIMENOrdering Facility: [facility] Address: [address] [place] [address] Performed By: #### 2 4321-2 ####[facility] LABORATORYCLIA [id number] [place] [id number] [facility] Creatinine and Glomerular filtration rate.predicted panel (S/P/Bld) 86 mL/min/1.73m??? Normal >=60 [facility] Comment on above: Order Comment: Kristin paige Type: BLOOD SPECIMENOrdering Facility: [facility] Address: [address] [place] [address] Result Comment: Felicia mated Glomerular Filtration Rate [...] actual GFR. Performed By: #### 2 4321-2 ####[facility] LABORATORYCLIA [id number] [address] STATES OF [facility] Glucose [Mass/Vol] 142 mg/dL High 74-99 [facility] Comment on above: Order Comment: Kristin paige Type: BLOOD SPECIMENOrdering Facility: [facility] Address: [address] [place] [address] Result Comment: The [place] Diabetes Association (ADA) provides guidance for cutoff [...] Standards of Medical Care in Diabetes 2016, [place] Diabetes Association. Diabetes Care. 2016.39(Suppl 1). Performed By: #### 2 4321-2 ####[facility] LABORATORYCLIA [id number] [address] [place] Potassium [Moles/Vol] 3.9 mmol/L Normal 3.7-5.1 [facility] Comment on above: Order Comment: Speci men Type: BLOOD SPECIMENOrdering Facility: [facility] Address: [address] [place] [address] Performed By: #### 2 4321-2 ####[facility] LABORATORYCLIA [id number] [address] STATES OF [facility] Sodium [Moles/Vol] 136 mmol/L Normal 136-144 [facility] Comment on above: Order Comment: Speci men Type: BLOOD SPECIMENOrdering Facility: [facility] Address: [address] [place] [address] Performed By: #### 2 4321-2 ####[facility] LABORATORYCLIA [id number] [address] STATES [facility] Urea nitrogen [Mass/Vol] 24 mg/dL High 7-21 [facility] Comment on above: Order Comment: Speci men Type: BLOOD SPECIMENOrdering Facility: [facility] Address: [address] [place] [address] Performed By: #### 2 1-2 ####[facility] LABORATORYCLIA [id number] [address] [place] Anion gap [Moles/Vol] 9 mmol/L Normal 9-18 [facility] Comment on above: Order Comment: Speci men Type: BLOOD SPECIMENOrdering Facility: [facility] Address: [address] [place] [address] Performed By: #### 2 4321-2 ####[facility] LABORATORYCLIA [id number] [address] OF [place] Calcium [Mass/Vol] 8.7 mg/dL Normal 8.5-10.2 [facility] Comment on above: Order Comment: Speci men Type: BLOOD SPECIMENOrdering Facility: [facility] Address: [address] [place] [address] Performed By: #### 2 4321-2 ####[facility] LABORATORYCLIA [id number] [place] [address] [place] Chloride [Moles/Vol] 101 mmol/L Normal 97-105 [facility] Comment on above: Order Comment: Speci men Type: BLOOD SPECIMENOrdering Facility: [facility] Address: [address] [place] [address] Performed By: #### 2 4321-2 ####[facility] LABORATORYCLIA [id number] [address] STATES [place] CO2 [Moles/Vol] 25 mmol/L Normal 22-30 [facility] Comment on above: Order Comment: Speci men Type: BLOOD SPECIMENOrdering Facility: [facility] Address: [address] [place] [address] Performed By: #### 2 4321-2 ####[facility] LABORATORYCLIA [id number] [address] [place] Creatinine [Mass/Vol] 0.62 mg/dL Normal 0.58-0.96 [facility] Comment on above: Order Comment: Speci men Type: BLOOD SPECIMENOrdering Facility: [facility] Address: [address] [place] [address] Performed By: #### 2 4321-2 ####[facility] LABORATORYCLIA [id number] [address] [place] Creatinine and Glomerular filtration rate.predicted panel (S/P/Bld) 89 mL/min/1.73m??? Normal >=60 [facility] Comment on above: Order Comment: Speci men Type: BLOOD SPECIMENOrdering Facility: [facility] Address: [address], [place] [address] Result Comment: Felicia mated Glomerular Filtration Rate [...] actual GFR. Performed By: #### 2 4321-2 ####[facility] LABORATORYCLIA [id number] [place] [address] [place] Glucose [Mass/Vol] 119 mg/dL High 74-99 [facility] Comment on above: Order Comment: Kristin paige Type: BLOOD SPECIMENOrdering Facility: [facility] Address: [address] [place] [address] Result Comment: The [place] Diabetes Association (ADA) provides guidance for cutoff [...] Standards of Medical Care in Diabetes 2016, [place] Diabetes Association. Diabetes Care. 2016.39(Suppl 1). Performed By: #### 2 4321-2 ####[facility] LABORATORYCLIA [id number] [place] [address] [place] Potassium [Moles/Vol] 4.1 mmol/L Normal 3.7-5.1 [facility] Comment on above: Order Comment: Kristin paige Type: BLOOD SPECIMENOrdering Facility: [facility] Address: [address] [place] [address] Performed By: #### 2 4321-2 ####[facility] LABORATORYCLIA [id number] [place] [id number] [place] Sodium [Moles/Vol] 135 mmol/L Low 136-144 [facility] Comment on above: Order Comment: Speci men Type: BLOOD SPECIMENOrdering Facility: [facility] Address: [address] [place] [address] Performed By: #### 2 4321-2 ####[facility] LABORATORYCLIA [id number] [address] [place] Urea nitrogen [Mass/Vol] 17 mg/dL Normal 7-21 [facility] Comment on above: Order Comment: Speci men Type: BLOOD SPECIMENOrdering Facility: [facility] Address: [address] [place] [address] Performed By: #### 2 4321-2 ####[facility] LABORATORYCLIA [id number] [address] [place] CASE MANAGEMon 02-12-2024 CASE MANAGEM Normal [facility] CASE MANAGEM Normal [facility] CASE MANAGEM Normal [facility] CBC W Auto Differential pane l (Bld)on 02-12-2024 Basophils (Bld) [#/Vol] 0.04 10*3/uL Normal <0.11 [facility] Comment on above: Order Comment: Speci men Type: BLOOD SPECIMENOrdering Facility: [facility] Address: [address] [place] [address] Performed By: #### 5 7021-8 ####[facility] LABORATORYCLIA [id number] [address] [place] Basophils/100 WBC (Bld) 0.3 % Normal [facility] Comment on above: Order Comment: Speci men Type: BLOOD SPECIMENOrdering Facility: [facility] Address: [address] [place] [address] Performed By: #### 5 7021-8 ####[facility] LABORATORYCLIA [id number] [address] [place] Differential cell count method Nom (Bld) Auto Normal [facility] Comment on above: Order Comment: Speci men Type: BLOOD SPECIMENOrdering Facility: [facility] Address: [address] [place] [address] Performed By: #### 5 7021-8 ####[facility] LABORATORYCLIA [id number] [address] Eosinophils (Bld) [#/Vol] 0.35 10*3/uL Normal <0.46 [facility] Comment on above: Order Comment: Speci men Type: BLOOD SPECIMENOrdering Facility: [facility] Address: [address] [place] [address] Performed By: #### 5 7021-8 ####[facility] LABORATORYCLIA [id number] [address] Eosinophils/100 WBC (Bld) 2.5 % Normal [facility] Comment on above: Order Comment: Speci men Type: BLOOD SPECIMENOrdering Facility: [facility] Address: [address] [place] [address] Performed By: #### 5 7021-8 ####[facility] LABORATORYCLIA [id number] [address] Erythrocyte distribution width (RBC) [Ratio] 13.7 % Normal 11.5-15.0 [facility] Comment on above: Order Comment: Speci men Type: BLOOD SPECIMENOrdering Facility: [facility] Address: [address] [place] [address] Performed By: #### 5 7021-8 ####[facility] LABORATORYCLIA [id number] [address] Hematocrit (Bld) [Volume fraction] 33.5 % Low 36.0-46.0 [facility] Comment on above: Order Comment: Speci men Type: BLOOD SPECIMENOrdering Facility: [facility] Address: [address] [place] [address] Performed By: #### 5 7021-8 ####[facility] LABORATORYCLIA [id number] [address] [place] Hemoglobin (Bld) [Mass/Vol] 10.7 g/dL Low 11.5-15.5 [facility] Comment on above: Order Comment: Speci men Type: BLOOD SPECIMENOrdering Facility: [facility] Address: [address] [place] [address] Performed By: #### 5 7021-8 ####[facility] LABORATORYCLIA [id number] [address] Immature granulocytes (Bld) [#/Vol] 0.11 10*3/uL High <0.10 [facility] Comment on above: Order Comment: Speci men Type: BLOOD SPECIMENOrdering Facility: [facility] Address: [address] [place] [address] Performed By: #### 5 7021-8 ####[facility] LABORATORYCLIA [id number] [address] Immature granulocytes/100 WBC (Bld) 0.8 % Normal [facility] Comment on above: Order Comment: Speci men Type: BLOOD SPECIMENOrdering Facility: [facility] Address: [address] [place] [address] Performed By: #### 5 7021-8 ####[facility] LABORATORYCLIA [id number] [address] STATES [facility] Lymphocytes (Bld) [#/Vol] 1.92 10*3/uL Normal 1.00-4.00 [facility] Comment on above: Order Comment: Speci men Type: BLOOD SPECIMENOrdering Facility: [facility] Address: [address] [place] [address] Performed By: #### 5 7021-8 ####[facility] LABORATORYCLIA [id number] [address] Lymphocytes/100 WBC (Bld) 13.5 % Normal [facility] Comment on above: Order Comment: Speci men Type: BLOOD SPECIMENOrdering Facility: [facility] Address: [address] [place] [address] Performed By: #### 5 7021-8 ####[facility]ORATORYCLIA [id number] [address] [place] MCH (RBC) [Entitic mass] 31.8 pg Normal 26.0-34.0 [facility] Comment on above: Order Comment: Speci men Type: BLOOD SPECIMENOrdering Facility: [facility] Address: [address] [place] [address] Performed By: #### 5 7021-8 ####[facility] LABORATORYCLIA [id number] [place] [address] [place] MCHC (RBC) [Mass/Vol] 31.9 g/dL Normal 30.5-36.0 [facility] Comment on above: Order Comment: Speci men Type: BLOOD SPECIMENOrdering Facility: [facility] Address: [address] [place] [address] Performed By: #### 5 7021-8 ####[facility] LABORATORYCLIA [id number] [place] [address] [place] MCV (RBC) [Entitic vol] 99.7 fL Normal 80.0-100.0 [facility] Comment on above: Order Comment: Speci men Type: BLOOD SPECIMENOrdering Facility: [facility] Address: [address] [place] [address] Performed By: #### 5 7021-8 ####[facility] LABORATORYCLIA [id number] [address] [place] Monocytes (Bld) [#/Vol] 0.85 10*3/uL Normal <0.87 [facility] Comment on above: Order Comment: Speci men Type: BLOOD SPECIMENOrdering Facility: [facility] Address: [address] [place] [address] Performed By: #### 5 7021-8 ####[facility] LABORATORYCLIA [id number] [address] [place] Monocytes/100 WBC (Bld) 6.0 % Normal [facility] Comment on above: Order Comment: Speci men Type: BLOOD SPECIMENOrdering Facility: [facility] Address: [address] [place] [address] Performed By: #### 5 7021-8 ####[facility] LABORATORYCLIA [id number] [place] [address] [place] Neutrophils (Bld) [#/Vol] 10.95 10*3/uL High 1.45-7.50 [facility] Comment on above: Order Comment: Speci men Type: BLOOD SPECIMENOrdering Facility: [facility] Address: [address] [place] [address] Performed By: #### 5 7021-8 ####[facility] LABORATORYCLIA [id number] [address] [place] Neutrophils/100 WBC (Bld) 76.9 % Normal [facility] Comment on above: Order Comment: Speci men Type: BLOOD SPECIMENOrdering Facility: [facility] Address: [address] [place] [address] Performed By: #### 5 7021-8 ####[facility] LABORATORYCLIA [id number] [address] [place] Nucleated RBC (Bld) [#/Vol] 10*3/uL Normal <0.01 [facility] Comment on above: Order Comment: Speci men Type: BLOOD SPECIMENOrdering Facility: [facility] Address: [address] [place] [address] Performed By: #### 5 7021-8 ####[facility] LABORATORYCLIA [id number] [address] [place] Nucleated RBC/100 WBC (Bld) [Ratio] 0.0 /100 WBC Normal [facility] Comment on above: Order Comment: Speci men Type: BLOOD SPECIMENOrdering Facility: [facility] Address: [address] [place] [address] Performed By: #### 5 7021-8 ####[facility] LABORATORYCLIA [id number] [address] [place] Platelet mean volume (Bld) [Entitic vol] 9.2 fL Normal 9.0-12.7 [facility] Comment on above: Order Comment: Speci men Type: BLOOD SPECIMENOrdering Facility: [facility] Address: [address] [place] [address] Performed By: #### 5 7021-8 ####[facility] LABORATORYCLIA [id number] [address] Platelets (Bld) [#/Vol] 402 10*3/uL High 150-400 [facility] Comment on above: Order Comment: Speci men Type: BLOOD SPECIMENOrdering Facility: [facility] Address: [address] [place] [address] Performed By: #### 5 7021-8 ####[facility] LABORATORYCLIA [id number] [place] [address] [facility] [place] RBC (Bld) [#/Vol] 3.36 10*6/uL Low 3.90-5.20 [facility] Comment on above: Order Comment: Speci men Type: BLOOD SPECIMENOrdering Facility: [facility] Address: [address] [place] [address] Performed By: #### 5 7021-8 ####[facility] LABORATORYCLIA [id number] [address] WBC (Bld) [#/Vol] 14.22 10*3/uL High 3.70-11.00 [facility] Comment on above: Order Comment: Speci men Type: BLOOD SPECIMENOrdering Facility: [facility] Address: [address] [place] [address] Performed By: #### 5 7021-8 ####[facility] LABORATORYCLIA [id number] [address] [place] CNDSon 02-12-2024 CNDS Normal [facility] CT BRAIN WO IVCONon 02-12-[address] BRAIN WO IVCON Normal [facility] CT CERVICAL SPINE WO IVCONon 02-12-2024 CT CERVICAL SPINE WO IVCON Normal [facility] ED NOTEon 02-12-2024 ED NOTE HNO ID: [id number] Author: RANDELL NELSON RN Service: Emergency Medicine Author Type: Registered Nurse Type: ED Notes Filed: 02/12/2024 21:46 Note Text: Called ED x-ray patient is ready at this time. Normal [facility] ED NOTE HNO ID: [id number] Author: RANDELL NELSON RN Service: Emergency Medicine Author Type: Registered Nurse Type: ED Notes Filed: 02/12/2024 21:45 Note Text: Called ED CT patient is ready at this time. Normal [facility] ED NOTE HNO ID: [id number] Author: PILLO SHEPPARD, Medic Service: ? Author Type: Instructor Flying and Profile Shaper Operator Type: ED Notes Filed: 02/12/2024 21:09 Note Text: Bed: [facility] Expected date: Expected time: Means of arrival: [place] [facility] Comments: Hip pain [facility] Normal [facility] ED PROV NOTEon 02-12-2024 ED PROV NOTE Normal [facility] XR HIP 3V PELV+ AP/LAT LTon 02-12-2024 XR HIP 3V PELV+ AP/LAT LT Normal [facility] XR SHLDR >/=3V AP/NICA AP/OTH R LTon 02-12-2024 XR SHLDR >/=3V AP/NICA AP/OTHR LT Normal [facility] Basic metabolic 2000 panelon 02-11-2024 Anion gap [Moles/Vol] 10 mmol/L Normal 9-18 [facility] Comment on above: Order Comment: Speci men Type: BLOOD SPECIMENOrdering Facility: [facility] Address: [address] [place] [address] Performed By: #### 2 4321-2 ####[facility] LABORATORYCLIA [id number] [place] [address] [place] Calcium [Mass/Vol] 9.0 mg/dL Normal 8.5-10.2 [facility] Comment on above: Order Comment: Speci men Type: BLOOD SPECIMENOrdering Facility: [facility] Address: [address] [place] [address] Performed By: #### 2 4321-2 ####[facility] LABORATORYCLIA [id number] [place] [address] [place] Chloride [Moles/Vol] 100 mmol/L Normal 97-105 [facility] Comment on above: Order Comment: Speci men Type: BLOOD SPECIMENOrdering Facility: [facility] Address: [address] [place] [address] Performed By: #### 2 4321-2 ####[facility] LABORATORYCLIA [id number] [place] [address] [place] CO2 [Moles/Vol] 24 mmol/L Normal 22-30 [facility] Comment on above: Order Comment: Speci men Type: BLOOD SPECIMENOrdering Facility: [facility] Address: [address] [place] [address] Performed By: #### 2 4321-2 ####[facility]PITALCLIA [id number] [address] STATES OF [facility] Creatinine [Mass/Vol] 0.70 mg/dL Normal 0.58-0.96 [facility] Comment on above: Order Comment: Speci men Type: BLOOD SPECIMENOrdering Facility: [facility] Address: [address] [place] [address] Performed By: #### 2 4321-2 ####[facility] HOSPITALCLIA [id number] [address] Creatinine and Glomerular filtration rate.predicted panel (S/P/Bld) 86 mL/min/1.73m??? Normal >=60 [facility] Comment on above: Order Comment: Speci men Type: BLOOD SPECIMENOrdering Facility: [facility] Address: [address] [place] [address] Result Comment: Felicia mated Glomerular Filtration Rate [...] actual GFR. Performed By: #### 2 4321-2 ####[facility] LABORATORYCLIA [id number] [place] [address] [place] Glucose [Mass/Vol] 140 mg/dL High 74-99 [facility] Comment on above: Order Comment: Speci men Type: BLOOD SPECIMENOrdering Facility: [facility] Address: [address] [id number] Result Comment: The [place] [employer] (ADA) provides guidance for cutoff [...] Standards of Medical Care in Diabetes 2016, [place] [employer]. Diabetes Care. 2016.39(Suppl 1). Performed By: #### 2 4321-2 ####[facility] LABORATORYCLIA [id number] [place] [address] [place] Potassium [Moles/Vol] 4.3 mmol/L Normal 3.7-5.1 [facility] Comment on above: Order Comment: Kristin men Type: BLOOD SPECIMENOrdering Facility: [facility] Address: [address] [place] [address] Performed By: #### 2 4321-2 ####[facility] LABORATORYCLIA [id number] [place] [address] [place] Sodium [Moles/Vol] 134 mmol/L Low 136-144 [facility] Comment on above: Order Comment: Speci men Type: BLOOD SPECIMENOrdering Facility: [facility] Address: [address] [id number] Performed By: #### 2 4321-2 ####[facility] LABORATORYCLIA [id number] [place] [address] [place] Urea nitrogen [Mass/Vol] 24 mg/dL High 7-21 [facility] Comment on above: Order Comment: Speci men Type: BLOOD SPECIMENOrdering Facility: [facility] Address: [address] [place] [address] Performed By: #### 2 4321-2 ####[facility] LABORATORYCLIA [id number] [address] CBC panel Auto (Bld)on 02-10 Erythrocyte distribution width (RBC) [Ratio] 13.9 % Normal 11.5-15.0 [facility] Comment on above: Order Comment: Speci men Type: BLOOD SPECIMENOrdering Facility: [facility] Address: [address] [place] [address] Performed By: #### 5 8410-2 ####[facility] LABORATORYCLIA [id number] [address] Hematocrit (Bld) [Volume fraction] 31.4 % Low 36.0-46.0 [facility] Comment on above: Order Comment: Speci men Type: BLOOD SPECIMENOrdering Facility: [facility] Address: [address] [place] [address] Performed By: #### 5 8410-2 ####[facility] LABORATORYCLIA [id number] [address] Hemoglobin (Bld) [Mass/Vol] 10.4 g/dL Low 11.5-15.5 [facility] Comment on above: Order Comment: Speci men Type: BLOOD SPECIMENOrdering Facility: [facility] Address: [address] [place] [address] Performed By: #### 5 8410-2 ####[facility] LABORATORYCLIA [id number] [address] STATES [facility] MCH (RBC) [Entitic mass] 32.5 pg Normal 26.0-34.0 [facility] Comment on above: Order Comment: Speci men Type: BLOOD SPECIMENOrdering Facility: [facility] Address: [address] [place] [address] Performed By: #### 5 8410-2 ####[facility] LABORATORYCLIA [id number] [place] [address] [place] MCHC (RBC) [Mass/Vol] 33.1 g/dL Normal 30.5-36.0 [facility] Comment on above: Order Comment: Speci men Type: BLOOD SPECIMENOrdering Facility: [facility] Address: [address] [place] [address] Performed By: #### 5 8410-2 ####[facility] LABORATORYCLIA [id number] [address] [place] MCV (RBC) [Entitic vol] 98.1 fL Normal 80.0-100.0 [facility] Comment on above: Order Comment: Speci men Type: BLOOD SPECIMENOrdering Facility: [facility] Address: [address] [place] [address] Performed By: #### 5 8410-2 ####[facility] LABORATORYCLIA [id number] [address] STATES OF [facility] Nucleated RBC (Bld) [#/Vol] 10*3/uL Normal <0.01 [facility] Comment on above: Order Comment: Speci men Type: BLOOD SPECIMENOrdering Facility: [facility] Address: [address] [place] [address] Performed By: #### 5 8410-2 ####[facility] LABORATORYCLIA [id number] [address] [place] Platelet mean volume (Bld) [Entitic vol] 9.3 fL Normal 9.0-12.7 [facility] Comment on above: Order Comment: Speci men Type: BLOOD SPECIMENOrdering Facility: [facility] Address: [address] [place] [address] Performed By: #### 5 8410-2 ####[facility] LABORATORYCLIA [id number] [address] [place] Platelets (Bld) [#/Vol] 291 10*3/uL Normal 150-400 [facility] Comment on above: Order Comment: Speci men Type: BLOOD SPECIMENOrdering Facility: [facility] Address: [address] [place] [address] Performed By: #### 5 8410-2 ####[facility] LABORATORYCLIA [id number] [address] [place] RBC (Bld) [#/Vol] 3.20 10*6/uL Low 3.90-5.20 [facility] Comment on above: Order Comment: Speci men Type: BLOOD SPECIMENOrdering Facility: [facility] Address: [address] [place] [address] Performed By: #### 5 8410-2 ####[facility] LABORATORYCLIA [id number] [address] STATES OF [facility] WBC (Bld) [#/Vol] 13.70 10*3/uL High 3.70-11.00 [facility] Comment on above: Order Comment: Speci men Type: BLOOD SPECIMENOrdering Facility: [facility] Address: [address] [place] [address] Performed By: #### 5 8410-2 ####[facility] LABORATORYCLIA [id number] [address] [place] CONSULTon 02-11-2024 CONSULT Normal [facility] THERAPY NTon 02-11-2024 THERAPY NT Normal [facility] THERAPY NT Normal [facility] US KIDNEY/BLADDERon 02-11-20 24 US KIDNEY/BLADDER Normal [facility] Basic metabolic 2000 panelon 02-10-2024 Anion gap [Moles/Vol] 11 mmol/L Normal 9-18 [facility] Comment on above: Order Comment: Speci men Type: BLOOD SPECIMENOrdering Facility: [facility] Address: [address] [place] [address] Performed By: #### 2 4321-2 ####[facility] LABORATORYCLIA [id number] [address] [place] Calcium [Mass/Vol] 9.1 mg/dL Normal 8.5-10.2 [facility] Comment on above: Order Comment: Speci men Type: BLOOD SPECIMENOrdering Facility: [facility] Address: [address] [place] [address] Performed By: #### 2 4321-2 ####[facility] LABORATORYCLIA [id number] [place] [id number] [place] Chloride [Moles/Vol] 104 mmol/L Normal 97-105 [facility] Comment on above: Order Comment: Speci men Type: BLOOD SPECIMENOrdering Facility: [facility] Address: [address] [place] [address] Performed By: #### 2 4321-2 ####[facility] LABORATORYCLIA [id number] [place] [id number] [place] CO2 [Moles/Vol] 23 mmol/L Normal 22-30 [facility] Comment on above: Order Comment: Speci men Type: BLOOD SPECIMENOrdering Facility: [facility] Address: [address] [place] [address] Performed By: #### 2 4321-2 ####[facility] LABORATORYCLIA [id number] [address] STATES OF [facility] Creatinine [Mass/Vol] 0.60 mg/dL Normal 0.58-0.96 [facility] Comment on above: Order Comment: Speci men Type: BLOOD SPECIMENOrdering Facility: [facility] Address: [address] [place] [address] Performed By: #### 2 4321-2 ####[facility] LABORATORYCLIA [id number] [address] Creatinine and Glomerular filtration rate.predicted panel (S/P/Bld) 90 mL/min/1.73m??? Normal >=60 [facility] Comment on above: Order Comment: Speci men Type: BLOOD SPECIMENOrdering Facility: [facility] Address: [address] [place] [address] Result Comment: Felicia mated Glomerular Filtration Rate [...] actual GFR. Performed By: #### 2 4321-2 ####[facility] LABORATORYCLIA [id number] [place] [address] [place] Glucose [Mass/Vol] 129 mg/dL High 74-99 [facility] Comment on above: Order Comment: Lului royal Type: BLOOD SPECIMENOrdering Facility: [facility] Address: [address] [place] [address] Result Comment: The [place] [employer] (ADA) provides guidance for cutoff [...] Standards of Medical Care in Diabetes 2016, [place] [employer]. Diabetes Care. 2016.39(Suppl 1). Performed By: #### 2 4321-2 ####[facility] LABORATORYCLIA [id number] [place] [address] [place] Potassium [Moles/Vol] 3.9 mmol/L Normal 3.7-5.1 [facility] Comment on above: Order Comment: Kristin paige Type: BLOOD SPECIMENOrdering Facility: [facility] Address: [address] [place] [address] Performed By: #### 2 4321-2 ####[facility] LABORATORYCLIA [id number] [place] [id number] [place] Sodium [Moles/Vol] 138 mmol/L Normal 136-144 [facility] Comment on above: Order Comment: Kristin royal Type: BLOOD SPECIMENOrdering Facility: [facility] Address: [address] [place] [address] Performed By: #### 2 4321-2 ####[facility] LABORATORYCLIA [id number] [address] [place] Urea nitrogen [Mass/Vol] 18 mg/dL Normal 7-21 [facility] Comment on above: Order Comment: Speci men Type: BLOOD SPECIMENOrdering Facility: [facility] Address: [address] [place] [address] Performed By: #### 2 4321-2 ####[facility] LABORATORYCLIA [id number] [place] [id number] [place] CASE MANAGEMon 02-10-2024 CASE MANAGEM Normal [facility] CBC panel Auto (Bld)on 02-09 Erythrocyte distribution width (RBC) [Ratio] 14.0 % Normal 11.5-15.0 [facility] Comment on above: Order Comment: Speci men Type: BLOOD SPECIMENOrdering Facility: [facility] Address: [address] [place] [address] Performed By: #### 5 8410-2 ####[facility] LABORATORYCLIA [id number] [address] STATES OF [facility] Hematocrit (Bld) [Volume fraction] 35.5 % Low 36.0-46.0 [facility] Comment on above: Order Comment: Speci men Type: BLOOD SPECIMENOrdering Facility: [facility] Address: [address] [place] [address] Performed By: #### 5 8410-2 ####[facility] LABORATORYCLIA [id number] [address] [place] Hemoglobin (Bld) [Mass/Vol] 11.5 g/dL Normal 11.5-15.5 [facility] Comment on above: Order Comment: Speci men Type: BLOOD SPECIMENOrdering Facility: [facility] Address: [address] [place] [address] Performed By: #### 5 8410-2 ####[facility] LABORATORYCLIA [id number] [address] [place] MCH (RBC) [Entitic mass] 32.1 pg Normal 26.0-34.0 [facility] Comment on above: Order Comment: Speci men Type: BLOOD SPECIMENOrdering Facility: [facility] Address: [address] [place] [address] Performed By: #### 5 8410-2 ####[facility] LABORATORYCLIA [id number] [address] MCHC (RBC) [Mass/Vol] 32.4 g/dL Normal 30.5-36.0 [facility] Comment on above: Order Comment: Speci men Type: BLOOD SPECIMENOrdering Facility: [facility] Address: [address] [place] [address] Performed By: #### 5 8410-2 ####[facility] LABORATORYCLIA [id number] [address] MCV (RBC) [Entitic vol] 99.2 fL Normal 80.0-100.0 [facility] Comment on above: Order Comment: Speci men Type: BLOOD SPECIMENOrdering Facility: [facility] Address: [address] [place] [address] Performed By: #### 5 8410-2 ####[facility] LABORATORYCLIA [id number] [address] Nucleated RBC (Bld) [#/Vol] 10*3/uL Normal <0.01 [facility] Comment on above: Order Comment: Speci men Type: BLOOD SPECIMENOrdering Facility: [facility] Address: [address] [place] [address] Performed By: #### 5 8410-2 ####[facility] LABORATORYCLIA [id number] [address] Platelet mean volume (Bld) [Entitic vol] 9.9 fL Normal 9.0-12.7 [facility] Comment on above: Order Comment: Speci men Type: BLOOD SPECIMENOrdering Facility: [facility] Address: [address] [place] [address] Performed By: #### 5 8410-2 ####[facility] LABORATORYCLIA [id number] [address] Platelets (Bld) [#/Vol] 294 10*3/uL Normal 150-400 [facility] Comment on above: Order Comment: Speci men Type: BLOOD SPECIMENOrdering Facility: [facility] Address: [address] [place] [address] Performed By: #### 5 8410-2 ####[facility] LABORATORYCLIA [id number] [place] [address] [place] RBC (Bld) [#/Vol] 3.58 10*6/uL Low 3.90-5.20 [facility] Comment on above: Order Comment: Speci men Type: BLOOD SPECIMENOrdering Facility: [facility] Address: [address] [place] [address] Performed By: #### 5 8410-2 ####[facility] LABORATORYCLIA [id number] [address] STATES OF [facility] WBC (Bld) [#/Vol] 10.86 10*3/uL Normal 3.70-11.00 [facility] Comment on above: Order Comment: Speci men Type: BLOOD SPECIMENOrdering Facility: [facility] Address: [address] [place] [address] Performed By: #### 5 8410-2 ####[facility] LABORATORYCLIA [id number] [address] [place] CONSULT PROGon 02-10-2024 CONSULT PROG Normal [facility] NURSING PROGon 02-10-2024 NURSING PROG Normal [facility] Basic metabolic 2000 panelon 02-09-2024 Anion gap [Moles/Vol] 10 mmol/L Normal 9-18 [facility] Comment on above: Order Comment: Speci men Type: BLOOD SPECIMENOrdering Facility: [facility] Address: [address] [place] [address] Performed By: #### 2 4321-2 ####[facility] LABORATORYCLIA [id number] [address] [place] Calcium [Mass/Vol] 9.1 mg/dL Normal 8.5-10.2 [facility] Comment on above: Order Comment: Speci men Type: BLOOD SPECIMENOrdering Facility: [facility] Address: [address] [place] [address] Performed By: #### 2 4321-2 ####[facility] LABORATORYCLIA [id number] [place] [address] [place] Chloride [Moles/Vol] 103 mmol/L Normal 97-105 [facility] Comment on above: Order Comment: Speci men Type: BLOOD SPECIMENOrdering Facility: [facility] Address: [address] [place] [address] Performed By: #### 2 4321-2 ####[facility] LABORATORYCLIA [id number] [place] [address] [place] CO2 [Moles/Vol] 26 mmol/L Normal 22-30 [facility] Comment on above: Order Comment: Speci men Type: BLOOD SPECIMENOrdering Facility: [facility] Address: [address] [place] [address] Performed By: #### 2 4321-2 ####[facility] LABORATORYCLIA [id number] [place] [address] [place] Creatinine [Mass/Vol] 0.65 mg/dL Normal 0.58-0.96 [facility] Comment on above: Order Comment: Speci men Type: BLOOD SPECIMENOrdering Facility: [facility] Address: [address] [place] [address] Performed By: #### 2 4321-2 ####[facility] LABORATORYCLIA [id number] [address] Creatinine and Glomerular filtration rate.predicted panel (S/P/Bld) 88 mL/min/1.73m??? Normal >=60 [facility] Comment on above: Order Comment: Speci men Type: BLOOD SPECIMENOrdering Facility: [facility] Address: [address] [place] [address] Result Comment: Felicia mated Glomerular Filtration Rate [...] actual GFR. Performed By: #### 2 4321-2 ####[facility] LABORATORYCLIA [id number] [place] [address] [place] Glucose [Mass/Vol] 135 mg/dL High 74-99 [facility] Comment on above: Order Comment: Speci men Type: BLOOD SPECIMENOrdering Facility: [facility] Address: [address] [place] [address] Result Comment: The [place] [employer] (ADA) provides guidance for cutoff [...] Standards of Medical Care in Diabetes 2016, [place] [employer]. Diabetes Care. 2016.39(Suppl 1). Performed By: #### 2 4321-2 ####[facility] LABORATORYCLIA [id number] [place] [address] [place] Potassium [Moles/Vol] 3.6 mmol/L Low 3.7-5.1 [facility] Comment on above: Order Comment: Speci men Type: BLOOD SPECIMENOrdering Facility: [facility] Address: [address] [id number] Performed By: #### 2 4321-2 ####[facility] LABORATORYCLIA [id number] [place] [address] [place] Sodium [Moles/Vol] 139 mmol/L Normal 136-144 [facility] Comment on above: Order Comment: Speci men Type: BLOOD SPECIMENOrdering Facility: [facility] Address: [address] [place] [address] Performed By: #### 2 4321-2 ####[facility] LABORATORYCLIA [id number] [address] STATES OF [facility] Urea nitrogen [Mass/Vol] 15 mg/dL Normal 7-21 [facility] Comment on above: Order Comment: Speci men Type: BLOOD SPECIMENOrdering Facility: [facility] Address: [address] [place] [address] Performed By: #### 2 4321-2 ####[facility] LABORATORYCLIA [id number] [address] OF [facility] CASE MANAGEMon 02-09-2024 CASE MANAGEM Normal [facility] CBC panel Auto (Bld)on 02-08 Erythrocyte distribution width (RBC) [Ratio] 13.7 % Normal 11.5-15.0 [facility] Comment on above: Order Comment: Speci men Type: BLOOD SPECIMENOrdering Facility: [facility] Address: [address] [place] [address] Performed By: #### 5 8410-2 ####[facility] LABORATORYCLIA [id number] [address] [place] Hematocrit (Bld) [Volume fraction] 33.9 % Low 36.0-46.0 [facility] Comment on above: Order Comment: Speci men Type: BLOOD SPECIMENOrdering Facility: [facility] Address: [address] [place] [address] Performed By: #### 5 8410-2 ####[facility] LABORATORYCLIA [id number] [place] [address] [place] Hemoglobin (Bld) [Mass/Vol] 11.3 g/dL Low 11.5-15.5 [facility] Comment on above: Order Comment: Speci men Type: BLOOD SPECIMENOrdering Facility: [facility] Address: [address] [place] [address] Performed By: #### 5 8410-2 ####[facility] LABORATORYCLIA [id number] [address] MCH (RBC) [Entitic mass] 32.3 pg Normal 26.0-34.0 [facility] Comment on above: Order Comment: Speci men Type: BLOOD SPECIMENOrdering Facility: [facility] Address: [address] [place] [address] Performed By: #### 5 8410-2 ####[facility] LABORATORYCLIA [id number] [address] [place] MCHC (RBC) [Mass/Vol] 33.3 g/dL Normal 30.5-36.0 [facility] Comment on above: Order Comment: Speci men Type: BLOOD SPECIMENOrdering Facility: [facility] Address: [address] [place] [address] Performed By: #### 5 8410-2 ####[facility] LABORATORYCLIA [id number] [address] STATES OF [facility] MCV (RBC) [Entitic vol] 96.9 fL Normal 80.0-100.0 [facility] Comment on above: Order Comment: Speci men Type: BLOOD SPECIMENOrdering Facility: [facility] Address: [address] [place] [address] Performed By: #### 5 8410-2 ####[facility] LABORATORYCLIA [id number] [address] Nucleated RBC (Bld) [#/Vol] 10*3/uL Normal <0.01 [facility] Comment on above: Order Comment: Speci men Type: BLOOD SPECIMENOrdering Facility: [facility] Address: [address] [place] [address] Performed By: #### 5 8410-2 ####[facility] LABORATORYCLIA [id number] [address] Platelet mean volume (Bld) [Entitic vol] 9.2 fL Normal 9.0-12.7 [facility] Comment on above: Order Comment: Speci men Type: BLOOD SPECIMENOrdering Facility: [facility] Address: [address] [place] [address] Performed By: #### 5 8410-2 ####[facility] LABORATORYCLIA [id number] [address] [place] Platelets (Bld) [#/Vol] 283 10*3/uL Normal 150-400 [facility] Comment on above: Order Comment: Speci men Type: BLOOD SPECIMENOrdering Facility: [facility] Address: [address] [place] [address] Performed By: #### 5 8410-2 ####[facility] LABORATORYCLIA [id number] [place] [address] [place] RBC (Bld) [#/Vol] 3.50 10*6/uL Low 3.90-5.20 [facility] Comment on above: Order Comment: Speci men Type: BLOOD SPECIMENOrdering Facility: [facility] Address: [address] [place] [address] Performed By: #### 5 8410-2 ####[facility] LABORATORYCLIA [id number] [address] OF [facility] WBC (Bld) [#/Vol] 9.83 10*3/uL Normal 3.70-11.00 [facility] Comment on above: Order Comment: Speci men Type: BLOOD SPECIMENOrdering Facility: [facility] Address: [address] [place] [address] Performed By: #### 5 8410-2 ####[facility] LABORATORYCLIA [id number] [address] OF [place] CONSULT PROGon 02-09-2024 CONSULT PROG Normal [facility] NUTRITIONon 02-09-2024 NUTRITION Normal [facility] THERAPY NTon 02-09-2024 THERAPY NT Normal [facility] Basic metabolic 2000 panelon 02-08-2024 Anion gap [Moles/Vol] 13 mmol/L Normal 9-18 [facility] Comment on above: Order Comment: Speci men Type: BLOOD SPECIMENOrdering Facility: [facility] Address: [address] [place] [address] Performed By: #### 2 4321-2 ####[facility] LABORATORYCLIA [id number] [place] [address] [place] Calcium [Mass/Vol] 9.3 mg/dL Normal 8.5-10.2 [facility] Comment on above: Order Comment: Speci men Type: BLOOD SPECIMENOrdering Facility: [facility] Address: [address] [place] [address] Performed By: #### 2 4321-2 ####[facility] LABORATORYCLIA [id number] [place] [address] [place] Chloride [Moles/Vol] 103 mmol/L Normal 97-105 [facility] Comment on above: Order Comment: Speci men Type: BLOOD SPECIMENOrdering Facility: [facility] Address: [address] [place] [address] Performed By: #### 2 4321-2 ####[facility] LABORATORYCLIA [id number] [address] [place] CO2 [Moles/Vol] 24 mmol/L Normal 22-30 [facility] Comment on above: Order Comment: Speci men Type: BLOOD SPECIMENOrdering Facility: [facility] Address: [address] [place] [address] Performed By: #### 2 4321-2 ####[facility] LABORATORYCLIA [id number] [address] [place] Creatinine [Mass/Vol] 0.60 mg/dL Normal 0.58-0.96 [facility] Comment on above: Order Comment: Speci men Type: BLOOD SPECIMENOrdering Facility: [facility] Address: [address] [place] [address] Performed By: #### 2 4321-2 ####[facility] LABORATORYCLIA [id number] [address] [place] Creatinine and Glomerular filtration rate.predicted panel (S/P/Bld) 90 mL/min/1.73m??? Normal >=60 [facility] Comment on above: Order Comment: Speci men Type: BLOOD SPECIMENOrdering Facility: [facility] Address: [address] [place] [address] Result Comment: Felicia mated Glomerular Filtration Rate [...] actual GFR. Performed By: #### 2 4321-2 ####[facility] LABORATORYCLIA [id number] [place] [address] [place] Glucose [Mass/Vol] 116 mg/dL High 74-99 [facility] Comment on above: Order Comment: Kristin paige Type: BLOOD SPECIMENOrdering Facility: [facility] Address: [address] [place] [address] Result Comment: The [place] [employer] (ADA) provides guidance for cutoff [...] Standards of Medical Care in Diabetes 2016, [place] [employer]. Diabetes Care. 2016.39(Suppl 1). Performed By: #### 2 4321-2 ####[facility] LABORATORYCLIA [id number] [place] [address] [place] Potassium [Moles/Vol] 3.3 mmol/L Low 3.7-5.1 [facility] Comment on above: Order Comment: Kristin paige Type: BLOOD SPECIMENOrdering Facility: [facility] Address: [address] [id number] Performed By: #### 2 4321-2 ####[facility] LABORATORYCLIA [id number] [address] [place] Sodium [Moles/Vol] 140 mmol/L Normal 136-144 [facility] Comment on above: Order Comment: Speci men Type: BLOOD SPECIMENOrdering Facility: [facility] Address: [address] [place] [address] Performed By: #### 2 4321-2 ####[facility] LABORATORYCLIA [id number] [place] [address] [place] Urea nitrogen [Mass/Vol] 17 mg/dL Normal 7-21 [facility] Comment on above: Order Comment: Speci men Type: BLOOD SPECIMENOrdering Facility: [facility] Address: [address] [place] [address] Performed By: #### 2 4321-2 ####[facility] LABORATORYCLIA [id number] [address] OF [facility] CASE MANAGEMon 02-08-2024 CASE MANAGEM Normal [facility] CASE MANAGEM Normal [facility] CBC panel Auto (Bld)on 02-07 Erythrocyte distribution width (RBC) [Ratio] 14.1 % Normal 11.5-15.0 [facility] Comment on above: Order Comment: Speci men Type: BLOOD SPECIMENOrdering Facility: [facility] Address: [address] [place] [address] Performed By: #### 5 8410-2 ####[facility] LABORATORYCLIA [id number] [place] [address] [place] Hematocrit (Bld) [Volume fraction] 33.4 % Low 36.0-46.0 [facility] Comment on above: Order Comment: Speci men Type: BLOOD SPECIMENOrdering Facility: [facility] Address: [address] [place] [address] Performed By: #### 5 8410-2 ####[facility] LABORATORYCLIA [id number] [address] [place] Hemoglobin (Bld) [Mass/Vol] 10.9 g/dL Low 11.5-15.5 [facility] Comment on above: Order Comment: Speci men Type: BLOOD SPECIMENOrdering Facility: [facility] Address: [address] [place] [address] Performed By: #### 5 8410-2 ####[facility] LABORATORYCLIA [id number] [address] MCH (RBC) [Entitic mass] 31.9 pg Normal 26.0-34.0 [facility] Comment on above: Order Comment: Speci men Type: BLOOD SPECIMENOrdering Facility: [facility] Address: [address] [place] [address] Performed By: #### 5 8410-2 ####[facility] LABORATORYCLIA [id number] [address] MCHC (RBC) [Mass/Vol] 32.6 g/dL Normal 30.5-36.0 [facility] Comment on above: Order Comment: Speci men Type: BLOOD SPECIMENOrdering Facility: [facility] Address: [address] [place] [address] Performed By: #### 5 8410-2 ####[facility] LABORATORYCLIA [id number] [address] MCV (RBC) [Entitic vol] 97.7 fL Normal 80.0-100.0 [facility] Comment on above: Order Comment: Speci men Type: BLOOD SPECIMENOrdering Facility: [facility] Address: [address] [place] [address] Performed By: #### 5 8410-2 ####[facility] LABORATORYCLIA [id number] [address] Nucleated RBC (Bld) [#/Vol] 10*3/uL Normal <0.01 [facility] Comment on above: Order Comment: Speci men Type: BLOOD SPECIMENOrdering Facility: [facility] Address: [address] [place] [address] Performed By: #### 5 8410-2 ####[facility] LABORATORYCLIA [id number] [address] STATES OF [facility] Platelet mean volume (Bld) [Entitic vol] 9.2 fL Normal 9.0-12.7 [facility] Comment on above: Order Comment: Speci men Type: BLOOD SPECIMENOrdering Facility: [facility] Address: [address] [place] [address] Performed By: #### 5 8410-2 ####[facility] LABORATORYCLIA [id number] [place] [address] [place] Platelets (Bld) [#/Vol] 275 10*3/uL Normal 150-400 [facility] Comment on above: Order Comment: Speci men Type: BLOOD SPECIMENOrdering Facility: [facility] Address: [address] [place] [address] Performed By: #### 5 8410-2 ####[facility] LABORATORYCLIA [id number] [address] STATES OF [facility] RBC (Bld) [#/Vol] 3.42 10*6/uL Low 3.90-5.20 [facility] Comment on above: Order Comment: Speci men Type: BLOOD SPECIMENOrdering Facility: [facility] Address: [address] [place] [address] Performed By: #### 5 8410-2 ####[facility] LABORATORYCLIA [id number] [address] [place] WBC (Bld) [#/Vol] 8.77 10*3/uL Normal 3.70-11.00 [facility] Comment on above: Order Comment: Speci men Type: BLOOD SPECIMENOrdering Facility: [facility] Address: [address] [place] [address] Performed By: #### 5 8410-2 ####[facility] LABORATORYCLIA [id number] [address] OF [place] PT EDon 02-08-2024 PT ED Normal [facility] THERAPY NTon 02-08-2024 THERAPY NT Normal [facility] Basic metabolic 2000 panelon 05-01-2024 Anion gap [Moles/Vol] 10 mmol/L Normal 9-18 [facility] Comment on above: Order Comment: Speci men Type: BLOOD SPECIMENOrdering Facility: [facility] Address: [address] [place] [address] Performed By: #### 2 4321-2 ####[facility] LABORATORYCLIA [id number] [place] [address] [place] Calcium [Mass/Vol] 8.9 mg/dL Normal 8.5-10.2 [facility] Comment on above: Order Comment: Speci men Type: BLOOD SPECIMENOrdering Facility: [facility] Address: [address] [place] [address] Performed By: #### 2 4321-2 ####[facility] LABORATORYCLIA [id number] [place] [address] [place] Chloride [Moles/Vol] 99 mmol/L Normal 97-105 [facility] Comment on above: Order Comment: Speci men Type: BLOOD SPECIMENOrdering Facility: [facility] Address: [address] [place] [address] Performed By: #### 2 4321-2 ####[facility] LABORATORYCLIA [id number] [place] [address] [place] CO2 [Moles/Vol] 26 mmol/L Normal 22-30 [facility] Comment on above: Order Comment: Speci men Type: BLOOD SPECIMENOrdering Facility: [facility] Address: [address] [place] [address] Performed By: #### 2 4321-2 ####[facility] LABORATORYCLIA [id number] [place] [address] [place] Creatinine [Mass/Vol] 0.72 mg/dL Normal 0.58-0.96 [facility] Comment on above: Order Comment: Speci men Type: BLOOD SPECIMENOrdering Facility: [facility] Address: [address] [place] [address] Performed By: #### 2 4321-2 ####[facility] LABORATORYCLIA [id number] [place] [address] [place] Creatinine and Glomerular filtration rate.predicted panel (S/P/Bld) 84 mL/min/1.73m??? Normal >=60 [facility] Comment on above: Order Comment: Kristin paige Type: BLOOD SPECIMENOrdering Facility: [facility] Address: [address] [place] [address] Result Comment: Felicia mated Glomerular Filtration Rate [...] actual GFR. Performed By: #### 2 4321-2 ####[facility] LABORATORYCLIA [id number] [place] [address] [place] Glucose [Mass/Vol] 130 mg/dL High 74-99 [facility] Comment on above: Order Comment: Kristin paige Type: BLOOD SPECIMENOrdering Facility: [facility] Address: [address] [place] [address] Result Comment: The [place] [employer] (ADA) provides guidance for cutoff [...] Standards of Medical Care in Diabetes 2016, [place] [employer]. Diabetes Care. 2016.39(Suppl 1). Performed By: #### 2 4321-2 ####[facility] LABORATORYCLIA [id number] [place] [id number] [place] Potassium [Moles/Vol] 3.5 mmol/L Low 3.7-5.1 [facility] Comment on above: Order Comment: Speci men Type: BLOOD SPECIMENOrdering Facility: [facility] Address: [address] [place] [address] Performed By: #### 2 4321-2 ####[facility] LABORATORYCLIA [id number] [place] [address] [place] Sodium [Moles/Vol] 135 mmol/L Low 136-144 [facility] Comment on above: Order Comment: Speci men Type: BLOOD SPECIMENOrdering Facility: [facility] Address: [address] [place] [address] Performed By: #### 2 4321-2 ####[facility] LABORATORYCLIA [id number] [place] [address] [place] Urea nitrogen [Mass/Vol] 18 mg/dL Normal 7-21 [facility] Comment on above: Order Comment: Speci men Type: BLOOD SPECIMENOrdering Facility: [facility] Address: [address] [place] [address] Performed By: #### 2 4321-2 ####[facility] LABORATORYCLIA [id number] [address] [place] CASE MANAGEMon 02-07-2024 CASE MANAGEM Normal [facility] CASE MANAGEM Normal [facility] CBC W Auto Differential pane l (Bld)on 02-07-2024 Basophils (Bld) [#/Vol] 10*3/uL Normal <0.11 [facility] Comment on above: Order Comment: Speci men Type: BLOOD SPECIMENOrdering Facility: [facility] Address: [address] [place] [address] Performed By: #### 5 7021-8 ####[facility] LABORATORYCLIA [id number] [address] [place] Basophils/100 WBC (Bld) 0.2 % Normal [facility] Comment on above: Order Comment: Speci men Type: BLOOD SPECIMENOrdering Facility: [facility] Address: [address] [place] [address] Performed By: #### 5 7021-8 ####[facility] LABORATORYCLIA [id number] [address] Differential cell count method Nom (Bld) Auto Normal [facility] Comment on above: Order Comment: Speci men Type: BLOOD SPECIMENOrdering Facility: [facility] Address: [address] [place] [address] Performed By: #### 5 7021-8 ####[facility] LABORATORYCLIA [id number] [address] [place] Eosinophils (Bld) [#/Vol] 0.42 10*3/uL Normal <0.46 [facility] Comment on above: Order Comment: Speci men Type: BLOOD SPECIMENOrdering Facility: [facility] Address: [address] [place] [address] Performed By: #### 5 7021-8 ####[facility] LABORATORYCLIA [id number] [address] Eosinophils/100 WBC (Bld) 4.6 % Normal [facility] Comment on above: Order Comment: Speci men Type: BLOOD SPECIMENOrdering Facility: [facility] Address: [address] [place] [address] Performed By: #### 5 7021-8 ####[facility] LABORATORYCLIA [id number] [address] Erythrocyte distribution width (RBC) [Ratio] 14.0 % Normal 11.5-15.0 [facility] Comment on above: Order Comment: Speci men Type: BLOOD SPECIMENOrdering Facility: [facility] Address: [address] [place] [address] Performed By: #### 5 7021-8 ####[facility] LABORATORYCLIA [id number] [address] Hematocrit (Bld) [Volume fraction] 36.7 % Normal 36.0-46.0 [facility] Comment on above: Order Comment: Speci men Type: BLOOD SPECIMENOrdering Facility: [facility] Address: [address] [place] [address] Performed By: #### 5 7021-8 ####[facility] LABORATORYCLIA [id number] [place] [address] [place] Hemoglobin (Bld) [Mass/Vol] 11.6 g/dL Normal 11.5-15.5 [facility] Comment on above: Order Comment: Speci men Type: BLOOD SPECIMENOrdering Facility: [facility] Address: [address] [place] [address] Performed By: #### 5 7021-8 ####[facility] LABORATORYCLIA [id number] [place] [address] [place] Immature granulocytes (Bld) [#/Vol] 0.04 10*3/uL Normal <0.10 [facility] Comment on above: Order Comment: Speci men Type: BLOOD SPECIMENOrdering Facility: [facility] Address: [address] [place] [address] Performed By: #### 5 7021-8 ####[facility] LABORATORYCLIA [id number] [address] [place] Immature granulocytes/100 WBC (Bld) 0.4 % Normal [facility] Comment on above: Order Comment: Speci men Type: BLOOD SPECIMENOrdering Facility: [facility] Address: [address] [place] [address] Performed By: #### 5 7021-8 ####[facility] LABORATORYCLIA [id number] [place] [address] [place] Lymphocytes (Bld) [#/Vol] 1.50 10*3/uL Normal 1.00-4.00 [facility] Comment on above: Order Comment: Speci men Type: BLOOD SPECIMENOrdering Facility: [facility] Address: [address] [place] [address] Performed By: #### 5 7021-8 ####[facility] LABORATORYCLIA [id number] [address] [place] Lymphocytes/100 WBC (Bld) 16.3 % Normal [facility] Comment on above: Order Comment: Speci men Type: BLOOD SPECIMENOrdering Facility: [facility] Address: [address] [place] [address] Performed By: #### 5 7021-8 ####[facility] LABORATORYCLIA [id number] [address] MCH (RBC) [Entitic mass] 31.4 pg Normal 26.0-34.0 [facility] Comment on above: Order Comment: Speci men Type: BLOOD SPECIMENOrdering Facility: [facility] Address: [address] [place] [address] Performed By: #### 5 7021-8 ####[facility] LABORATORYCLIA [id number] [address] MCHC (RBC) [Mass/Vol] 31.6 g/dL Normal 30.5-36.0 [facility] Comment on above: Order Comment: Speci men Type: BLOOD SPECIMENOrdering Facility: [facility] Address: [address] [place] [address] Performed By: #### 5 7021-8 ####[facility] LABORATORYCLIA [id number] [address] STATES [facility] MCV (RBC) [Entitic vol] 99.5 fL Normal 80.0-100.0 [facility] Comment on above: Order Comment: Speci men Type: BLOOD SPECIMENOrdering Facility: [facility] Address: [address] [place] [address] Performed By: #### 5 7021-8 ####[facility] LABORATORYCLIA [id number] [address] Monocytes (Bld) [#/Vol] 0.55 10*3/uL Normal <0.87 [facility] Comment on above: Order Comment: Speci men Type: BLOOD SPECIMENOrdering Facility: [facility] Address: [address] [place] [address] Performed By: #### 5 7021-8 ####[facility] LABORATORYCLIA [id number] [address] Monocytes/100 WBC (Bld) 6.0 % Normal [facility] Comment on above: Order Comment: Speci men Type: BLOOD SPECIMENOrdering Facility: [facility] Address: [facility] [place] [address] Performed By: #### 5 7021-8 ####[facility] LABORATORYCLIA [id number] [place] [address] [place] Neutrophils (Bld) [#/Vol] 6.70 10*3/uL Normal 1.45-7.50 [facility] Comment on above: Order Comment: Speci men Type: BLOOD SPECIMENOrdering Facility: [facility] Address: [address] [place] [address] Performed By: #### 5 7021-8 ####[facility] LABORATORYCLIA [id number] [place] [address] [place] Neutrophils/100 WBC (Bld) 72.5 % Normal [facility] Comment on above: Order Comment: Speci men Type: BLOOD SPECIMENOrdering Facility: [facility] Address: [address] [place] [address] Performed By: #### 5 7021-8 ####[facility] LABORATORYCLIA [id number] [place] [address] [place] Nucleated RBC (Bld) [#/Vol] 10*3/uL Normal <0.01 [facility] Comment on above: Order Comment: Speci men Type: BLOOD SPECIMENOrdering Facility: [facility] Address: [address] [place] [address] Performed By: #### 5 7021-8 ####[facility] LABORATORYCLIA [id number] [place] [address] [place] Nucleated RBC/100 WBC (Bld) [Ratio] 0.0 /100 WBC Normal [facility] Comment on above: Order Comment: Speci men Type: BLOOD SPECIMENOrdering Facility: [facility] Address: [address] [place] [address] Performed By: #### 5 7021-8 ####[facility] LABORATORYCLIA [id number] [address] STATES OF [facility] Platelet mean volume (Bld) [Entitic vol] 9.1 fL Normal 9.0-12.7 [facility] Comment on above: Order Comment: Speci men Type: BLOOD SPECIMENOrdering Facility: [facility] Address: [address] [place] [address] Performed By: #### 5 7021-8 ####[facility] LABORATORYCLIA [id number] [address] [place] Platelets (Bld) [#/Vol] 256 10*3/uL Normal 150-400 [facility] Comment on above: Order Comment: Speci men Type: BLOOD SPECIMENOrdering Facility: [facility] Address: [address] [place] [address] Performed By: #### 5 7021-8 ####[facility]ITALCLIA [id number] [address] [place] [facility] RBC (Bld) [#/Vol] 3.69 10*6/uL Low 3.90-5.20 [facility] Comment on above: Order Comment: Speci men Type: BLOOD SPECIMENOrdering Facility: [facility] Address: [address] [place] [address] Performed By: #### 5 7021-8 ####[facility] LABORATORYCLIA [id number] [address] [place] WBC (Bld) [#/Vol] 9.23 10*3/uL Normal 3.70-11.00 [facility] Comment on above: Order Comment: Speci men Type: BLOOD SPECIMENOrdering Facility: [facility] Address: [address] [place] [address] Performed By: #### 5 7021-8 ####[facility] LABORATORYCLIA [id number] [address] CBC panel Auto (Bld)on 02-06 Erythrocyte distribution width (RBC) [Ratio] 14.1 % Normal 11.5-15.0 [facility] Comment on above: Order Comment: Speci men Type: BLOOD SPECIMENOrdering Facility: [facility] Address: [address] [place] [address] Performed By: #### 5 8410-2 ####[facility] LABORATORYCLIA [id number] [address] Hematocrit (Bld) [Volume fraction] 34.6 % Low 36.0-46.0 [facility] Comment on above: Order Comment: Speci men Type: BLOOD SPECIMENOrdering Facility: [facility] Address: [address] [place] [address] Performed By: #### 5 8410-2 ####[facility] LABORATORYCLIA [id number] [address] OF [facility] Hemoglobin (Bld) [Mass/Vol] 11.1 g/dL Low 11.5-15.5 [facility] Comment on above: Order Comment: Speci men Type: BLOOD SPECIMENOrdering Facility: [facility] Address: [address] [place] [address] Performed By: #### 5 8410-2 ####[facility] LABORATORYCLIA [id number] [address] MCH (RBC) [Entitic mass] 32.1 pg Normal 26.0-34.0 [facility] Comment on above: Order Comment: Speci men Type: BLOOD SPECIMENOrdering Facility: [facility] Address: [address] [place] [address] Performed By: #### 5 8410-2 ####[facility] LABORATORYCLIA [id number] [address] [place] MCHC (RBC) [Mass/Vol] 32.1 g/dL Normal 30.5-36.0 [facility] Comment on above: Order Comment: Speci men Type: BLOOD SPECIMENOrdering Facility: [facility] Address: [address] [place] [address] Performed By: #### 5 8410-2 ####[facility] LABORATORYCLIA [id number] [place] [address] [place] MCV (RBC) [Entitic vol] 100.0 fL Normal 80.0-100.0 [facility] Comment on above: Order Comment: Speci men Type: BLOOD SPECIMENOrdering Facility: [facility] Address: [address] [place] [address] Performed By: #### 5 8410-2 ####[facility] LABORATORYCLIA [id number] [address] [place] Nucleated RBC (Bld) [#/Vol] 10*3/uL Normal <0.01 [facility] Comment on above: Order Comment: Speci men Type: BLOOD SPECIMENOrdering Facility: [facility] Address: [address] [place] [address] Performed By: #### 5 8410-2 ####[facility] LABORATORYCLIA [id number] [address] [place] Platelet mean volume (Bld) [Entitic vol] 9.2 fL Normal 9.0-12.7 [facility] Comment on above: Order Comment: Speci men Type: BLOOD SPECIMENOrdering Facility: [facility] Address: [address] [place] [address] Performed By: #### 5 8410-2 ####[facility] LABORATORYCLIA [id number] [address] [place] Platelets (Bld) [#/Vol] 242 10*3/uL Normal 150-400 [facility] Comment on above: Order Comment: Speci men Type: BLOOD SPECIMENOrdering Facility: [facility] Address: [address] [place] [address] Performed By: #### 5 8410-2 ####[facility] LABORATORYCLIA [id number] [address] [place] RBC (Bld) [#/Vol] 3.46 10*6/uL Low 3.90-5.20 [facility] Comment on above: Order Comment: Speci men Type: BLOOD SPECIMENOrdering Facility: [facility] Address: [address] [place] [address] Performed By: #### 5 8410-2 ####[facility] LABORATORYCLIA [id number] [place] [address] [place] WBC (Bld) [#/Vol] 7.82 10*3/uL Normal 3.70-11.00 [facility] Comment on above: Order Comment: Speci men Type: BLOOD SPECIMENOrdering Facility: [facility] Address: [address] [place] [address] Performed By: #### 5 8410-2 ####[facility] LABORATORYCLIA [id number] [address] [place] CONSULTon 02-07-2024 CONSULT Normal [facility] CONSULT PROGon 02-07-2024 CONSULT PROG Normal [facility] THERAPY NTon 02-07-2024 THERAPY NT Normal [facility] Basic metabolic 2000 panelon 02-06-2024 Anion gap [Moles/Vol] 11 mmol/L Normal 9-18 [facility] Comment on above: Order Comment: Speci men Type: BLOOD SPECIMENOrdering Facility: [facility] Address: [address] [place] [id number] Performed By: #### 2 4321-2, , 1 ####[facility] LABORATORYCLIA [id number] [place] [address] [place] Calcium [Mass/Vol] 9.0 mg/dL Normal 8.5-10.2 [facility] Comment on above: Order Comment: Speci men Type: BLOOD SPECIMENOrdering Facility: [facility] Address: [address] [place] [address] Performed By: #### 2 4321-2, 18258-2, 2777-1 ####[facility] LABORATORYCLIA [id number] [place] [address] [place] Chloride [Moles/Vol] 98 mmol/L Normal 97-105 [facility] Comment on above: Order Comment: Speci men Type: BLOOD SPECIMENOrdering Facility: [facility] Address: [address] [place] [address] Performed By: #### 2 4321-2, , 2776-10 ####[facility] LABORATORYCLIA [id number] [place] [address] [place] CO2 [Moles/Vol] 28 mmol/L Normal 22-30 [facility] Comment on above: Order Comment: Speci men Type: BLOOD SPECIMENOrdering Facility: [facility] Address: [address] [place] [address] Performed By: #### 2 4321-2, , 2776-10 ####[facility] HOSPITALCLIA [id number] [place] [address] [place] Creatinine [Mass/Vol] 0.77 mg/dL Normal 0.58-0.96 [facility] Comment on above: Order Comment: Speci men Type: BLOOD SPECIMENOrdering Facility: [facility] Address: [address] [place] [address] Performed By: #### 2 432-2, , 2776-10 ####[facility] HOSPITALCLIA [id number] [place] [id number] [place] OF [facility] Creatinine and Glomerular filtration rate.predicted panel (S/P/Bld) 77 mL/min/1.73m??? Normal >=60 [facility] Comment on above: Order Comment: Speci men Type: BLOOD SPECIMENOrdering Facility: [facility] Address: [address] [place] [address] Result Comment: Felicia mated Glomerular Filtration Rate [...] Performed By: #### 2 4321-2, , 2776-10 ####[facility] LABORATORYCLIA [id number] [place] [address] [place] Glucose [Mass/Vol] 118 mg/dL High 74-99 [facility] Comment on above: Order Comment: Speci men Type: BLOOD SPECIMENOrdering Facility: [facility] Address: [address] [place] [address] Result Comment: The [place] [employer] (ADA) provides guidance for cutoff [...] Standards of Medical Care in Diabetes 2016, [place] [employer]. Diabetes Care. 2016.39(Suppl 1). Performed By: #### 2 4321-2, , 2776-10 ####[facility] LABORATORYCLIA [id number] [place] [address] [place] Potassium [Moles/Vol] 3.3 mmol/L Low 3.7-5.1 [facility] Comment on above: Order Comment: Kristin royal Type: BLOOD SPECIMENOrdering Facility: [facility] Address: [address] [place] [address] Performed By: #### 2 4321-2, , 2776-10 ####[facility] LABORATORYCLIA [id number] [place] [address] [place] Sodium [Moles/Vol] 137 mmol/L Normal 136-144 [facility] Comment on above: Order Comment: Speci men Type: BLOOD SPECIMENOrdering Facility: [facility] Address: [address] [place] [address] Performed By: #### 2 4321-2, , 2776-10 ####[facility] LABORATORYCLIA [id number] [place] [address] [place] Urea nitrogen [Mass/Vol] 16 mg/dL Normal 7-21 [facility] Comment on above: Order Comment: Speci men Type: BLOOD SPECIMENOrdering Facility: [facility] Address: [address] [place] [address] Performed By: #### 2 4321-2, 27386-7, 2777-1 ####[facility] LABORATORYCLIA [id number] [place] [address] [place] CBC W Auto Differential pane l (Bld)on 02-06-2024 Basophils (Bld) [#/Vol] 0.04 10*3/uL Normal <0.11 [facility] Comment on above: Order Comment: Speci men Type: BLOOD SPECIMENOrdering Facility: [facility] Address: [address] [place] [address] Performed By: #### 5 7021-8 ####[facility] LABORATORYCLIA [id number] [place] [address] [place] Basophils/100 WBC (Bld) 0.4 % Normal [facility] Comment on above: Order Comment: Speci men Type: BLOOD SPECIMENOrdering Facility: [facility] Address: [address] [place] [address] Performed By: #### 5 7021-8 ####[facility] LABORATORYCLIA [id number] [address] [place] Differential cell count method Nom (Bld) Auto Normal [facility] Comment on above: Order Comment: Speci men Type: BLOOD SPECIMENOrdering Facility: [facility] Address: [address] [place] [address] Performed By: #### 5 7021-8 ####[facility] LABORATORYCLIA [id number] [place] [address] [place] Eosinophils (Bld) [#/Vol] 0.45 10*3/uL Normal <0.46 [facility] Comment on above: Order Comment: Speci men Type: BLOOD SPECIMENOrdering Facility: [facility] Address: [address] [place] [address] Performed By: #### 5 7021-8 ####[facility] LABORATORYCLIA [id number] [address] [place] Eosinophils/100 WBC (Bld) 4.3 % Normal [facility] Comment on above: Order Comment: Speci men Type: BLOOD SPECIMENOrdering Facility: [facility] Address: [address] [place] [address] Performed By: #### 5 7021-8 ####[facility] LABORATORYCLIA [id number] [address] [place] Erythrocyte distribution width (RBC) [Ratio] 13.9 % Normal 11.5-15.0 [facility] Comment on above: Order Comment: Speci men Type: BLOOD SPECIMENOrdering Facility: [facility] Address: [address] [place] [address] Performed By: #### 5 7021-8 ####[facility] LABORATORYCLIA [id number] [address] [place] Hematocrit (Bld) [Volume fraction] 35.6 % Low 36.0-46.0 [facility] Comment on above: Order Comment: Speci men Type: BLOOD SPECIMENOrdering Facility: [facility] Address: [address] [place] [address] Performed By: #### 5 7021-8 ####[facility] LABORATORYCLIA [id number] [address] [place] Hemoglobin (Bld) [Mass/Vol] 11.4 g/dL Low 11.5-15.5 [facility] Comment on above: Order Comment: Speci men Type: BLOOD SPECIMENOrdering Facility: [facility] Address: [address] [place] [address] Performed By: #### 5 7021-8 ####[facility] LABORATORYCLIA [id number] [address] [place] Immature granulocytes (Bld) [#/Vol] 0.04 10*3/uL Normal <0.10 [facility] Comment on above: Order Comment: Speci men Type: BLOOD SPECIMENOrdering Facility: [facility] Address: [address] [place] [address] Performed By: #### 5 7021-8 ####[facility] LABORATORYCLIA [id number] [address] Immature granulocytes/100 WBC (Bld) 0.4 % Normal [facility] Comment on above: Order Comment: Speci men Type: BLOOD SPECIMENOrdering Facility: [facility] Address: [address] [place] [address] Performed By: #### 5 7021-8 ####[facility] LABORATORYCLIA [id number] [address] [place] Lymphocytes (Bld) [#/Vol] 2.06 10*3/uL Normal 1.00-4.00 [facility] Comment on above: Order Comment: Speci men Type: BLOOD SPECIMENOrdering Facility: [facility] Address: [address] [place] [address] Performed By: #### 5 7021-8 ####[facility] LABORATORYCLIA [id number] [address] Lymphocytes/100 WBC (Bld) 19.8 % Normal [facility] Comment on above: Order Comment: Speci men Type: BLOOD SPECIMENOrdering Facility: [facility] Address: [address] [place] [address] Performed By: #### 5 7021-8 ####[facility] LABORATORYCLIA [id number] [address] [place] MCH (RBC) [Entitic mass] 31.8 pg Normal 26.0-34.0 [facility] Comment on above: Order Comment: Speci men Type: BLOOD SPECIMENOrdering Facility: [facility] Address: [address] [place] [address] Performed By: #### 5 7021-8 ####[facility] LABORATORYCLIA [id number] [address] [place] MCHC (RBC) [Mass/Vol] 32.0 g/dL Normal 30.5-36.0 [facility] Comment on above: Order Comment: Speci men Type: BLOOD SPECIMENOrdering Facility: [facility] Address: [address] [place] [address] Performed By: #### 5 7021-8 ####[facility] LABORATORYCLIA [id number] [address] [place] MCV (RBC) [Entitic vol] 99.2 fL Normal 80.0-100.0 [facility] Comment on above: Order Comment: Speci men Type: BLOOD SPECIMENOrdering Facility: [facility] Address: [address] [place] [address] Performed By: #### 5 7021-8 ####[facility] LABORATORYCLIA [id number] [place] [address] [place] Monocytes (Bld) [#/Vol] 0.74 10*3/uL Normal <0.87 [facility] Comment on above: Order Comment: Speci men Type: BLOOD SPECIMENOrdering Facility: [facility] Address: [address] [place] [address] Performed By: #### 5 7021-8 ####[facility] LABORATORYCLIA [id number] [address] [place] Monocytes/100 WBC (Bld) 7.1 % Normal [facility] Comment on above: Order Comment: Speci men Type: BLOOD SPECIMENOrdering Facility: [facility] Address: [address] [place] [address] Performed By: #### 5 7021-8 ####[facility] LABORATORYCLIA [id number] [place] [address] [place] Neutrophils (Bld) [#/Vol] 7.06 10*3/uL Normal 1.45-7.50 [facility] Comment on above: Order Comment: Speci men Type: BLOOD SPECIMENOrdering Facility: [facility] Address: [address] [place] [address] Performed By: #### 5 7021-8 ####[facility] LABORATORYCLIA [id number] [address] [place] Neutrophils/100 WBC (Bld) 68.0 % Normal [facility] Comment on above: Order Comment: Speci men Type: BLOOD SPECIMENOrdering Facility: [facility] Address: [facility] [place] [address] Performed By: #### 5 7021-8 ####[facility] LABORATORYCLIA [id number] [place] [address] [place] Nucleated RBC (Bld) [#/Vol] 10*3/uL Normal <0.01 [facility] Comment on above: Order Comment: Speci men Type: BLOOD SPECIMENOrdering Facility: [facility] Address: [address] [place] [address] Performed By: #### 5 7021-8 ####[facility] LABORATORYCLIA [id number] [place] [address] [place] Nucleated RBC/100 WBC (Bld) [Ratio] 0.0 /100 WBC Normal [facility] Comment on above: Order Comment: Speci men Type: BLOOD SPECIMENOrdering Facility: [facility] Address: [address] [place] [address] Performed By: #### 5 7021-8 ####[facility] LABORATORYCLIA [id number] [place] [address] [place] Platelet mean volume (Bld) [Entitic vol] 8.9 fL Low 9.0-12.7 [facility] Comment on above: Order Comment: Speci men Type: BLOOD SPECIMENOrdering Facility: [facility] Address: [address] [place] [address] Performed By: #### 5 7021-8 ####[facility] LABORATORYCLIA [id number] [place] [address] [place] Platelets (Bld) [#/Vol] 228 10*3/uL Normal 150-400 [facility] Comment on above: Order Comment: Speci men Type: BLOOD SPECIMENOrdering Facility: [facility] Address: [address] [place] [address] Performed By: #### 5 7021-8 ####[facility] LABORATORYCLIA [id number] [address] [place] RBC (Bld) [#/Vol] 3.59 10*6/uL Low 3.90-5.20 [facility] Comment on above: Order Comment: Speci men Type: BLOOD SPECIMENOrdering Facility: [facility] Address: [address] [place] [address] Performed By: #### 5 7021-8 ####[facility] LABORATORYCLIA [id number] [address] WBC (Bld) [#/Vol] 10.39 10*3/uL Normal 3.70-11.00 [facility] Comment on above: Order Comment: Speci men Type: BLOOD SPECIMENOrdering Facility: [facility] Address: [address] [place] [address] Performed By: #### 5 7021-8 ####[facility] LABORATORYCLIA [id number] [address] OF [facility] CONSULT PROGon 02-06-2024 CONSULT PROG Normal [facility] Magnesium SerPl-ncon 02-05 Magnesium [Mass/Vol] 2.3 mg/dL Normal 1.7-2.3 [facility] Comment on above: Order Comment: Speci men Type: BLOOD SPECIMENOrdering Facility: [facility] Address: [address] [place] [address] Performed By: #### 2 4321-2, 60954-5, 2777-1 ####[facility] LABORATORYCLIA [id number] [address] [place] NUTRITIONon 02-06-2024 NUTRITION Normal [facility] Phosphate SerPl-mCncon 02-05 Phosphate [Mass/Vol] 2.7 mg/dL Normal 2.7-4.8 [facility] Comment on above: Order Comment: Speci men Type: BLOOD SPECIMENOrdering Facility: [facility] Address: [address] [place] [address] Performed By: #### 2 4321-2, , 2776-10 ####[facility] LABORATORYCLIA [id number] [place] [address] [place] Bacteria Ur Culton Bacteria identified Cx Nom (U) Abnormal [facility] Comment on above: Performed By: #### 6 30-4 ####[facility] LABORATORYCLIA [id number] [place] [address] [place] Basic metabolic 2000 panelon 02-05-2024 Anion gap [Moles/Vol] 11 mmol/L Normal 9-18 [facility] Comment on above: Order Comment: Speci men Type: BLOOD SPECIMENOrdering Facility: [facility] Address: [address] [place] [address] Performed By: #### 2 4321-2, , 2776-10 ####[facility] LABORATORYCLIA [id number] [place] [address] [place] Calcium [Mass/Vol] 8.9 mg/dL Normal 8.5-10.2 [facility] Comment on above: Order Comment: Speci men Type: BLOOD SPECIMENOrdering Facility: [facility] Address: [address] [place] [address] Performed By: #### 2 4321-2, , 2776-10 ####[facility] LABORATORYCLIA [id number] [place] [address] [place] Chloride [Moles/Vol] 103 mmol/L Normal 97-105 [facility] Comment on above: Order Comment: Speci men Type: BLOOD SPECIMENOrdering Facility: [facility] Address: [address] [place] [address] Performed By: #### 2 4321-2, , 2776-10 ####[facility] LABORATORYCLIA [id number] [place] [address] [place] CO2 [Moles/Vol] 23 mmol/L Normal 22-30 [facility] Comment on above: Order Comment: Speci men Type: BLOOD SPECIMENOrdering Facility: [facility] Address: [address] [place] [address] Performed By: #### 2 4321-2, , 2776-10 ####[facility] HE[facility] SERVICESIA [id number] [place] [phone] [place] [facility] Creatinine [Mass/Vol] 0.68 mg/dL Normal 0.58-0.96 [facility] Comment on above: Order Comment: Specedda men Type: BLOOD SPECIMENOrdering Facility: [facility] Address: [address] [place] [address] Performed By: #### 2 4321-2, , 2776-10 ####[facility] HE[facility] SERVICESIA [id number] [place] [phone] [facility] Creatinine and Glomerular filtration rate.predicted panel (S/P/Bld) 87 mL/min/1.73m??? Normal >=60 [facility] Comment on above: Order Comment: Kristin paige Type: BLOOD SPECIMENOrdering Facility: [facility] Address: [address] [place] [address] Result Comment: Felicia mated Glomerular Filtration Rate [...] Performed By: #### 2 4321-2, , 2776-10 ####[facility] LABORATORYIA [id number] [place] [phone] [place] Glucose [Mass/Vol] 139 mg/dL High 74-99 [facility] Comment on above: Order Comment: Kristin paige Type: BLOOD SPECIMENOrdering Facility: [facility] Address: [address] [place] [address] Result Comment: The [place] [employer] (ADA) provides guidance for cutoff [...] Standards of Medical Care in Diabetes 2016, [place] [employer]. Diabetes Care. 2016.39(Suppl 1). Performed By: #### 2 4321-2, , 2776-10 ####[facility] LABORATORYCLIA [id number] [place] [phone] [place] Potassium [Moles/Vol] 3.7 mmol/L Normal 3.7-5.1 [facility] Comment on above: Order Comment: Kristin paige Type: BLOOD SPECIMENOrdering Facility: [facility] Address: [address] [place] [address] Performed By: #### 2 432-2, , 2776-10 ####[facility] LABORATORYCLIA [id number] [place] [address] [place] Sodium [Moles/Vol] 137 mmol/L Normal 136-144 [facility] Comment on above: Order Comment: Kristin paige Type: BLOOD SPECIMENOrdering Facility: [facility] Address: [address] [place] [address] Performed By: #### 2 4321-2, , 2776-10 ####[facility] LABORATORYCLIA [id number] [place] [phone] [place] Urea nitrogen [Mass/Vol] 15 mg/dL Normal 7-21 [facility] Comment on above: Order Comment: Kristin paige Type: BLOOD SPECIMENOrdering Facility: [facility] Address: [address] [place] [address] Performed By: #### 2 4321-2, , 2776-10 ####[facility] LABORATORYCLIA [id number] [place] [phone] [place] CASE MANAGEMon 02-05-2024 CASE MANAGEM Normal [facility] CBC W Auto Differential pane l (Bld)on 02-05-2024 Basophils (Bld) [#/Vol] 10*3/uL Normal <0.11 [facility] Comment on above: Order Comment: Speci men Type: BLOOD SPECIMENOrdering Facility: [facility] Address: [address] [place] [address] Performed By: #### 5 7021-8 ####[facility] LABORATORYCLIA [id number] [address] [place] Basophils/100 WBC (Bld) 0.2 % Normal [facility] Comment on above: Order Comment: Speci men Type: BLOOD SPECIMENOrdering Facility: [facility] Address: [address] [place] [address] Performed By: #### 5 7021-8 ####[facility] LABORATORYCLIA [id number] [address] OF [facility] Differential cell count method Nom (Bld) Auto Normal [facility] Comment on above: Order Comment: Speci men Type: BLOOD SPECIMENOrdering Facility: [facility] Address: [address] [place] [address] Performed By: #### 5 7021-8 ####[facility] LABORATORYCLIA [id number] [place] [address] [place] Eosinophils (Bld) [#/Vol] 0.06 10*3/uL Normal <0.46 [facility] Comment on above: Order Comment: Speci men Type: BLOOD SPECIMENOrdering Facility: [facility] Address: [address] [place] [address] Performed By: #### 5 7021-8 ####[facility] LABORATORYCLIA [id number] [address] [place] Eosinophils/100 WBC (Bld) 0.5 % Normal [facility] Comment on above: Order Comment: Speci men Type: BLOOD SPECIMENOrdering Facility: [facility] Address: [address] [place] [address] Performed By: #### 5 7021-8 ####[facility] LABORATORYCLIA [id number] [address] STATES OF [facility] Erythrocyte distribution width (RBC) [Ratio] 13.6 % Normal 11.5-15.0 [facility] Comment on above: Order Comment: Speci men Type: BLOOD SPECIMENOrdering Facility: [facility] Address: [address] [place] [address] Performed By: #### 5 7021-8 ####[facility] LABORATORYCLIA [id number] [address] [place] Hematocrit (Bld) [Volume fraction] 32.3 % Low 36.0-46.0 [facility] Comment on above: Order Comment: Speci men Type: BLOOD SPECIMENOrdering Facility: [facility] Address: [address] [place] [address] Performed By: #### 5 7021-8 ####[facility] LABORATORYCLIA [id number] [address] Hemoglobin (Bld) [Mass/Vol] 10.9 g/dL Low 11.5-15.5 [facility] Comment on above: Order Comment: Speci men Type: BLOOD SPECIMENOrdering Facility: [facility] Address: [address] [place] [address] Performed By: #### 5 7021-8 ####[facility] LABORATORYCLIA [id number] [address] [place] Immature granulocytes (Bld) [#/Vol] 0.04 10*3/uL Normal <0.10 [facility] Comment on above: Order Comment: Speci men Type: BLOOD SPECIMENOrdering Facility: [facility] Address: [address] [place] [address] Performed By: #### 5 7021-8 ####[facility] LABORATORYCLIA [id number] [address] Immature granulocytes/100 WBC (Bld) 0.3 % Normal [facility] Comment on above: Order Comment: Speci men Type: BLOOD SPECIMENOrdering Facility: [facility] Address: [address] [place] [address] Performed By: #### 5 7021-8 ####[facility] LABORATORYCLIA [id number] [address] Lymphocytes (Bld) [#/Vol] 1.38 10*3/uL Normal 1.00-4.00 [facility] Comment on above: Order Comment: Speci men Type: BLOOD SPECIMENOrdering Facility: [facility] Address: [address] [place] [address] Performed By: #### 5 7021-8 ####[facility] LABORATORYCLIA [id number] [address] Lymphocytes/100 WBC (Bld) 11.6 % Normal [facility] Comment on above: Order Comment: Speci men Type: BLOOD SPECIMENOrdering Facility: [facility] Address: [address] [place] [address] Performed By: #### 5 7021-8 ####[facility] LABORATORYCLIA [id number] [address] MCH (RBC) [Entitic mass] 32.2 pg Normal 26.0-34.0 [facility] Comment on above: Order Comment: Speci men Type: BLOOD SPECIMENOrdering Facility: [facility] Address: [address] [place] [address] Performed By: #### 5 7021-8 ####[facility] LABORATORYCLIA [id number] [address] MCHC (RBC) [Mass/Vol] 33.7 g/dL Normal 30.5-36.0 [facility] Comment on above: Order Comment: Speci men Type: BLOOD SPECIMENOrdering Facility: [facility] Address: [address] [place] [address] Performed By: #### 5 7021-8 ####[facility] LABORATORYCLIA [id number] [address] MCV (RBC) [Entitic vol] 95.6 fL Normal 80.0-100.0 [facility] Comment on above: Order Comment: Speci men Type: BLOOD SPECIMENOrdering Facility: [facility] Address: [facility] [place] [address] Performed By: #### 5 7021-8 ####[facility] LABORATORYCLIA [id number] [place] [address] [place] Monocytes (Bld) [#/Vol] 0.68 10*3/uL Normal <0.87 [facility] Comment on above: Order Comment: Speci men Type: BLOOD SPECIMENOrdering Facility: [facility] Address: [address] [place] [address] Performed By: #### 5 7021-8 ####[facility] LABORATORYCLIA [id number] [address] [place] Monocytes/100 WBC (Bld) 5.7 % Normal [facility] Comment on above: Order Comment: Speci men Type: BLOOD SPECIMENOrdering Facility: [facility] Address: [address] [place] [address] Performed By: #### 5 7021-8 ####[facility] LABORATORYCLIA [id number] [place] [address] [place] Neutrophils (Bld) [#/Vol] 9.68 10*3/uL High 1.45-7.50 [facility] Comment on above: Order Comment: Speci men Type: BLOOD SPECIMENOrdering Facility: [facility] Address: [address] [place] [address] Performed By: #### 5 7021-8 ####[facility] LABORATORYCLIA [id number] [place] [address] [place] Neutrophils/100 WBC (Bld) 81.7 % Normal [facility] Comment on above: Order Comment: Speci men Type: BLOOD SPECIMENOrdering Facility: [facility] Address: [address] [place] [address] Performed By: #### 5 7021-8 ####[facility] LABORATORYCLIA [id number] [address] [place] Nucleated RBC (Bld) [#/Vol] 10*3/uL Normal <0.01 [facility] Comment on above: Order Comment: Speci men Type: BLOOD SPECIMENOrdering Facility: [facility] Address: [address] [place] [address] Performed By: #### 5 7021-8 ####[facility] LABORATORYCLIA [id number] [address] [place] Nucleated RBC/100 WBC (Bld) [Ratio] 0.0 /100 WBC Normal [facility] Comment on above: Order Comment: Speci men Type: BLOOD SPECIMENOrdering Facility: [facility] Address: [address] [place] [address] Performed By: #### 5 7021-8 ####[facility] LABORATORYCLIA [id number] [place] [address] [place] Platelet mean volume (Bld) [Entitic vol] 8.9 fL Low 9.0-12.7 [facility] Comment on above: Order Comment: Speci men Type: BLOOD SPECIMENOrdering Facility: [facility] Address: [address] [place] [address] Performed By: #### 5 7021-8 ####[facility] LABORATORYCLIA [id number] [address] [place] Platelets (Bld) [#/Vol] 234 10*3/uL Normal 150-400 [facility] Comment on above: Order Comment: Speci men Type: BLOOD SPECIMENOrdering Facility: [facility] Address: [address] [place] [address] Performed By: #### 5 7021-8 ####[facility] LABORATORYCLIA [id number] [address] [place] RBC (Bld) [#/Vol] 3.38 10*6/uL Low 3.90-5.20 [facility] Comment on above: Order Comment: Speci men Type: BLOOD SPECIMENOrdering Facility: [facility] Address: [address] [place] [address] Performed By: #### 5 7021-8 ####[facility] LABORATORYCLIA [id number] [address] WBC (Bld) [#/Vol] 11.86 10*3/uL High 3.70-11.00 [facility] Comment on above: Order Comment: Speci men Type: BLOOD SPECIMENOrdering Facility: [facility] Address: [address] [place] [address] Performed By: #### 5 7021-8 ####[facility] LABORATORYCLIA [id number] [address] [place] CONSULTon 02-05-2024 CONSULT Normal [facility] Calcium.ionized [Moles/Vol]o n 02-05-2024 Calcium.ionized (BldV) [Mass/Vol] 1.20 mmol/L Normal 1.08-1.30 [facility] Comment on above: Order Comment: Speci men Type: BLOOD SPECIMENOrdering Facility: [facility] Address: [address] [place] [address] Performed By: #### 1 995-0 ####[facility] LABORATORYCLIA [id number] [address] Calcium.ionized adjusted to pH 7.4 (Bld) [Moles/Vol] 1.23 mmol/L Normal 1.08-1.30 [facility] Comment on above: Order Comment: Speci men Type: BLOOD SPECIMENOrdering Facility: [facility] Address: [address] [place] [address] Performed By: #### 1 995-0 ####[facility] LABORATORYCLIA [id number] [address] Magnesium SerPl-mCncon 02-04 Magnesium [Mass/Vol] 2.0 mg/dL Normal 1.7-2.3 [facility] Comment on above: Order Comment: Speci men Type: BLOOD SPECIMENOrdering Facility: [facility] Address: [address] [place] [address] Performed By: #### 2 4321-2, 33281-1, 2777-1 ####[facility] LABORATORYCLIA [id number] [address] [place] Phosphate SerPl-mCncon 02-04 Phosphate [Mass/Vol] 2.9 mg/dL Normal 2.7-4.8 [facility] Comment on above: Order Comment: Speci men Type: BLOOD SPECIMENOrdering Facility: [facility] Address: [address] [place] [address] Performed By: #### 2 4321-2, 87541-9, 2777-1 ####[facility] LABORATORYCLIA [id number] [address] THERAPY NTon 02-05-2024 THERAPY NT Normal [facility] THERAPY NT Normal [facility] THERAPY NT Normal [facility] ANES POSTPROC EVALon 024 ANES POSTPROC EVAL Normal [facility] ANES PRE-OPon 02-04-2024 ANES PRE-OP Normal [facility] ARTERIAL BLOOD GASESon 02-03 Base deficit (BldA) [Moles/Vol] mmol/L Normal -2-0 [facility] Comment on above: Order Comment: Speci men Type: ARTERIAL BLOOD SPECIMENOrdering Facility: [facility] Address: [address] [place] [address] Performed By: #### A LLBG ####[facility] LABORATORYCLIA [id number] [address] [place] Body temperature 98.06 [degF] Normal [facility] Comment on above: Order Comment: Speci men Type: ARTERIAL BLOOD SPECIMENOrdering Facility: [facility] Address: [address] [place] [address] Performed By: #### A LLBG ####[facility] LABORATORYCLIA [id number] [address] Calcium.ionized (BldV) [Mass/Vol] 1.21 mmol/L Normal 1.08-1.30 [facility] Comment on above: Order Comment: Speci men Type: ARTERIAL BLOOD SPECIMENOrdering Facility: [facility] Address: [address] [place] [address] Performed By: #### A LLBG ####[facility] LABORATORYCLIA [id number] [place] [address] [place] Calcium.ionized adjusted to pH 7.4 (BldA) [Moles/Vol] 1.21 mmol/L Normal 1.08-1.30 [facility] Comment on above: Order Comment: Speci men Type: ARTERIAL BLOOD SPECIMENOrdering Facility: [facility] Address: [address] [place] [address] Performed By: #### A LLBG ####[facility] LABORATORYCLIA [id number] [address] [place] Carboxyhemoglobin (BldA) [Mass fraction] 1.4 % Normal 0.0-2.0 [facility] Comment on above: Order Comment: Speci men Type: ARTERIAL BLOOD SPECIMENOrdering Facility: [facility] Address: [address] [place] [address] Result Comment: Carb oxyhemoglobin Reference Range for Smokers: 2.0-8.0% Performed By: #### A LLBG ####[facility] LABORATORYCLIA [id number] [place] [address] [place] Chloride [Moles/Vol] 108 mmol/L Normal 102-109 [facility] Comment on above: Order Comment: Speci men Type: ARTERIAL BLOOD SPECIMENOrdering Facility: [facility] Address: [address] [place] [address] Performed By: #### A LLBG ####[facility] LABORATORYCLIA [id number] [place] [address] [place] CO2 (Bld) [Partial pressure] 40 mm Hg Normal 36-46 [facility] Comment on above: Order Comment: Speci men Type: ARTERIAL BLOOD SPECIMENOrdering Facility: [facility] Address: [address] [place] [address] Performed By: #### A LLBG ####[facility] LABORATORYCLIA [id number] [address] OF [facility] CO2 adjusted to patient's actual temperature (Bld) [Partial pressure] 39 mmHg Normal 36-46 [facility] Comment on above: Order Comment: Speci men Type: ARTERIAL BLOOD SPECIMENOrdering Facility: [facility] Address: [address] [place] [address] Performed By: #### A LLBG ####[facility] LABORATORYCLIA [id number] [address] [place] Glucose [Mass/Vol] 161 mg/dL High 60-105 [facility] Comment on above: Order Comment: Speci men Type: ARTERIAL BLOOD SPECIMENOrdering Facility: [facility] Address: [address] [place] [address] Performed By: #### A LLBG ####[facility] LABORATORYCLIA [id number] [address] [place] HCO3 (Bld) [Moles/Vol] 24 mmol/L Normal 22-[address] [facility] Comment on above: Order Comment: Speci men Type: ARTERIAL BLOOD SPECIMENOrdering Facility: [facility] Address: [address] [place] [address] Performed By: #### A LLBG ####[facility] LABORATORYCLIA [id number] [address] [place] Hematocrit (Bld) [Volume fraction] 34.0 % Low 36.0-46.0 [facility] Comment on above: Order Comment: Speci men Type: ARTERIAL BLOOD SPECIMENOrdering Facility: [facility] Address: [address] [place] [address] Performed By: #### A LLBG ####[facility] LABORATORYCLIA [id number] [address] [place] Lactate [Moles/Vol] 1.5 mmol/L Normal 0.5-2.2 [facility] Comment on above: Order Comment: Speci men Type: ARTERIAL BLOOD SPECIMENOrdering Facility: [facility] Address: [address] [place] [address] Performed By: #### A LLBG ####[facility] LABORATORYCLIA [id number] [place] [id number] [place] Methemoglobin (Bld) [Mass fraction] 0.5 % Normal 0.0-1.5 [facility] Comment on above: Order Comment: Speci men Type: ARTERIAL BLOOD SPECIMENOrdering Facility: [facility] Address: [address] [place] [address] Performed By: #### A LLBG ####[facility] LABORATORYCLIA [id number] [address] [place] O2 THERAPY Hi-Flow Nasal Cannula-Heated Normal [facility] Comment on above: Order Comment: Speci men Type: ARTERIAL BLOOD SPECIMENOrdering Facility: [facility] Address: [address] [place] [address] Result Comment: 60L 63% on airvo Performed By: #### A LLBG ####[facility] LABORATORYCLIA [id number] [address] [place] Oxygen (Bld) [Partial pressure] 111 mm Hg High 85-95 [facility] Comment on above: Order Comment: Speci men Type: ARTERIAL BLOOD SPECIMENOrdering Facility: [facility] Address: [address] [place] [address] Performed By: #### A LLBG ####[facility] LABORATORYCLIA [id number] [address] Oxygen adjusted to patient's actual temperature (Bld) [Partial pressure] 109 mmHg High 85-95 [facility] Comment on above: Order Comment: Speci men Type: ARTERIAL BLOOD SPECIMENOrdering Facility: [facility] Address: [address] [place] [address] Performed By: #### A LLBG ####[facility] LABORATORYCLIA [id number] [address] [place] Oxyhemoglobin (BldA) [Mass fraction] 97 % Normal 95-98 [facility] Comment on above: Order Comment: Speci men Type: ARTERIAL BLOOD SPECIMENOrdering Facility: [facility] Address: [address] [place] [address] Performed By: #### A LLBG ####[facility] LABORATORYCLIA [id number] [place] [address] [place] pH (Bld) 7.40 [pH] Normal 7.35-7.45 [facility] Comment on above: Order Comment: Speci men Type: ARTERIAL BLOOD SPECIMENOrdering Facility: [facility] Address: [address] [place] [address] Performed By: #### A LLBG ####[facility] LABORATORYCLIA [id number] [address] [place] pH adjusted to patient's actual temperature (Bld) 7.40 Normal 7.35-7.45 [facility] Comment on above: Order Comment: Speci men Type: ARTERIAL BLOOD SPECIMENOrdering Facility: [facility] Address: [address] [place] [address] Performed By: #### A LLBG ####[facility] LABORATORYCLIA [id number] [place] [address] [place] Potassium [Moles/Vol] 3.7 mmol/L Normal 3.5-5.0 [facility] Comment on above: Order Comment: Speci men Type: ARTERIAL BLOOD SPECIMENOrdering Facility: [facility] Address: [address] [place] [address] Performed By: #### A LLBG ####[facility] LABORATORYCLIA [id number] [place] [address] [place] Sodium [Moles/Vol] 136 mmol/L Normal 136-144 [facility] Comment on above: Order Comment: Speci men Type: ARTERIAL BLOOD SPECIMENOrdering Facility: [facility] Address: [address] [place] [address] Performed By: #### A LLBG ####[facility] LABORATORYCLIA [id number] [place] [address] [place] Base deficit (BldA) [Moles/Vol] -2 mmol/L Normal -2-0 [facility] Comment on above: Order Comment: Speci men Type: ARTERIAL BLOOD SPECIMENOrdering Facility: [facility] Address: [address] [place] [address] Performed By: #### A LLBG ####[facility] LABORATORYCLIA [id number] [address] OF [facility] Body temperature 97.7 [degF] Normal [facility] Comment on above: Order Comment: Speci men Type: ARTERIAL BLOOD SPECIMENOrdering Facility: [facility] Address: [address] [place] [address] Performed By: #### A LLBG ####[facility] LABORATORYCLIA [id number] [address] OF [facility] Calcium.ionized (BldV) [Mass/Vol] 1.18 mmol/L Normal 1.08-1.30 [facility] Comment on above: Order Comment: Speci men Type: ARTERIAL BLOOD SPECIMENOrdering Facility: [facility] Address: [address] [place] [address] Performed By: #### A LLBG ####[facility] LABORATORYCLIA [id number] [address] Calcium.ionized adjusted to pH 7.4 (BldA) [Moles/Vol] 1.15 mmol/L Normal 1.08-1.30 [facility] Comment on above: Order Comment: Speci men Type: ARTERIAL BLOOD SPECIMENOrdering Facility: [facility] Address: [address] [place] [address] Performed By: #### A LLBG ####[facility] LABORATORYCLIA [id number] [address] [place] Carboxyhemoglobin (BldA) [Mass fraction] 1.5 % Normal 0.0-2.0 [facility] Comment on above: Order Comment: Speci men Type: ARTERIAL BLOOD SPECIMENOrdering Facility: [facility] Address: [address] [place] [address] Result Comment: Carb oxyhemoglobin Reference Range for Smokers: 2.0-8.0% Performed By: #### A LLBG ####[facility] LABORATORYCLIA [id number] [place] [address] [place] Chloride [Moles/Vol] 109 mmol/L Normal 102-109 [facility] [facility] Comment on above: Order Comment: Speci men Type: ARTERIAL BLOOD SPECIMENOrdering Facility: [facility] Address: [address] [place] [address] Performed By: #### A LLBG ####[facility]ORATORYCLIA [id number] [address] [place] CO2 (Bld) [Partial pressure] 43 mm Hg Normal 36-46 [facility] Comment on above: Order Comment: Speci men Type: ARTERIAL BLOOD SPECIMENOrdering Facility: [facility] Address: [address] [place] [address] Performed By: #### A LLBG ####[facility] LABORATORYCLIA [id number] [address] CO2 adjusted to patient's actual temperature (Bld) [Partial pressure] 42 mmHg Normal 36-46 [facility] Comment on above: Order Comment: Speci men Type: ARTERIAL BLOOD SPECIMENOrdering Facility: [facility] Address: [address] [place] [address] Performed By: #### A LLBG ####[facility] LABORATORYCLIA [id number] [address] [place] Glucose [Mass/Vol] 177 mg/dL High 60-105 [facility] Comment on above: Order Comment: Speci men Type: ARTERIAL BLOOD SPECIMENOrdering Facility: [facility] Address: [address] [place] [address] Performed By: #### A LLBG ####[facility]ATORYCLIA [id number] [address] [place] HCO3 (Bld) [Moles/Vol] 23 mmol/L Normal 22-[address] [facility] Comment on above: Order Comment: Speci men Type: ARTERIAL BLOOD SPECIMENOrdering Facility: [facility] Address: [address] [place] [address] Performed By: #### A LLBG ####[facility] LABORATORYCLIA [id number] [address] OF [facility] Hematocrit (Bld) [Volume fraction] 43.0 % Normal 36.0-46.0 [facility] Comment on above: Order Comment: Speci men Type: ARTERIAL BLOOD SPECIMENOrdering Facility: [facility] Address: [address] [place] [address] Performed By: #### A LLBG ####[facility] LABORATORYCLIA [id number] [address] [place] Hemoglobin (Bld) [Mass/Vol] 14.0 g/dL Normal 11.5-15.5 [facility] Comment on above: Order Comment: Speci men Type: ARTERIAL BLOOD SPECIMENOrdering Facility: [facility] Address: [address] [place] [address] Performed By: #### A LLBG ####[facility] LABORATORYCLIA [id number] [address] Lactate [Moles/Vol] 2.1 mmol/L Normal 0.5-2.2 [facility] Comment on above: Order Comment: Speci men Type: ARTERIAL BLOOD SPECIMENOrdering Facility: [facility] Address: [address] [place] [address] Performed By: #### A LLBG ####[facility] LABORATORYCLIA [id number] [address] [place] LITERS 10 Liters/min Normal [facility] Comment on above: Order Comment: Speci men Type: ARTERIAL BLOOD SPECIMENOrdering Facility: [facility] Address: [address] [place] [address] Performed By: #### A LLBG ####[facility] LABORATORYCLIA [id number] [address] [place] Methemoglobin (Bld) [Mass fraction] 0.3 % Normal 0.0-1.5 [facility] Comment on above: Order Comment: Speci men Type: ARTERIAL BLOOD SPECIMENOrdering Facility: [facility] Address: [address] [place] [address] Performed By: #### A LLBG ####[facility]ATORYCLIA [id number] [address] O2 THERAPY Simple Face Mask Normal [facility] Comment on above: Order Comment: Speci men Type: ARTERIAL BLOOD SPECIMENOrdering Facility: [facility] Address: [address] [place] [address] Performed By: #### A LLBG ####[facility]ORYCLIA [id number] [address] Oxygen (Bld) [Partial pressure] 55 mm Hg Low 85-95 [facility] Comment on above: Order Comment: Speci men Type: ARTERIAL BLOOD SPECIMENOrdering Facility: [facility] Address: [address] [place] [address] Performed By: #### A LLBG ####[facility] LABORATORYCLIA [id number] [address] Oxygen adjusted to patient's actual temperature (Bld) [Partial pressure] 53 mmHg Low 85-95 [facility] Comment on above: Order Comment: Speci men Type: ARTERIAL BLOOD SPECIMENOrdering Facility: [facility] Address: [address] [place] [address] Performed By: #### A LLBG ####[facility] LABORATORYCLIA [id number] [address] Oxyhemoglobin (BldA) [Mass fraction] 85 % Low 95-98 [facility] Comment on above: Order Comment: Speci men Type: ARTERIAL BLOOD SPECIMENOrdering Facility: [facility] Address: [address] [place] [address] Performed By: #### A LLBG ####[facility] LABORATORYCLIA [id number] [address] [place] pH (Bld) 7.35 [pH] Normal 7.35-7.45 [facility] Comment on above: Order Comment: Speci men Type: ARTERIAL BLOOD SPECIMENOrdering Facility: [facility] Address: [address] [place] [address] Performed By: #### A LLBG ####[facility] LABORATORYCLIA [id number] [address] pH adjusted to patient's actual temperature (Bld) 7.35 Normal 7.35-7.45 [facility] Comment on above: Order Comment: Speci men Type: ARTERIAL BLOOD SPECIMENOrdering Facility: [facility] Address: [address] [place] [address] Performed By: #### A LLBG ####[facility] LABORATORYCLIA [id number] [address] [place] Potassium [Moles/Vol] 3.7 mmol/L Normal 3.5-5.0 [facility] Comment on above: Order Comment: Speci men Type: ARTERIAL BLOOD SPECIMENOrdering Facility: [facility] Address: [address] [place] [address] Performed By: #### A LLBG ####[facility] LABORATORYCLIA [id number] [address] [place] Sodium [Moles/Vol] 137 mmol/L Normal 136-144 [facility] Comment on above: Order Comment: Speci men Type: ARTERIAL BLOOD SPECIMENOrdering Facility: [facility] Address: [address] [place] [address] Performed By: #### A LLBG ####[facility] LABORATORYCLIA [id number] [address] [place] BRIEF OP NOTon 02-04-2024 BRIEF OP NOT Normal [facility] Basic metabolic 2000 panelon 02-04-2024 Anion gap [Moles/Vol] 13 mmol/L Normal 9-18 [facility] Comment on above: Order Comment: Speci men Type: BLOOD SPECIMENOrdering Facility: [facility] Address: [address] [place] [address] Performed By: #### 2 4321-2, 13800-1, 2777-1 ####[facility]ORATORYCLIA [id number] [place] [address] [place] Calcium [Mass/Vol] 8.7 mg/dL Normal 8.5-10.2 [facility] Comment on above: Order Comment: Speci men Type: BLOOD SPECIMENOrdering Facility: [facility] Address: [address] [place] [address] Performed By: #### 2 4321-2, , 2776-10 ####[facility] LABORATORYCLIA [id number] [place] [address] [place] Chloride [Moles/Vol] 103 mmol/L Normal 97-105 [facility] Comment on above: Order Comment: Speci men Type: BLOOD SPECIMENOrdering Facility: [facility] Address: [address] [place] [address] Performed By: #### 2 4321-2, , 2776-10 ####[facility] LABORATORYCLIA [id number] [place] [address] [place] CO2 [Moles/Vol] 21 mmol/L Low 22-30 [facility] Comment on above: Order Comment: Speci men Type: BLOOD SPECIMENOrdering Facility: [facility] Address: [address] [place] [address] Performed By: #### 2 4321-2, , 2776-10 ####[facility] LABORATORYCLIA [id number] [place] [address] [place] Creatinine [Mass/Vol] 0.69 mg/dL Normal 0.58-0.96 [facility] Comment on above: Order Comment: Speci men Type: BLOOD SPECIMENOrdering Facility: [facility] Address: [address] [place] [address] Performed By: #### 2 4321-2, , 2776-10 ####[facility] LABORATORYCLIA [id number] [address] [place] Creatinine and Glomerular filtration rate.predicted panel (S/P/Bld) 87 mL/min/1.73m??? Normal >=60 [facility] Comment on above: Order Comment: Kristin paige Type: BLOOD SPECIMENOrdering Facility: [facility] Address: [address] [place] [address] Result Comment: Felicia mated Glomerular Filtration Rate [...] actual GFR. Performed By: #### 2 4321-2, 49184-4, 2776-10 ####[facility] LABORATORYCLIA [id number] [place] [address] [place] Glucose [Mass/Vol] 166 mg/dL High 74-99 [facility] Comment on above: Order Comment: Kristin paige Type: BLOOD SPECIMENOrdering Facility: [facility] Address: [address] [place] [address] Result Comment: The [place] [employer] (ADA) provides guidance for cutoff [...] Standards of Medical Care in Diabetes 2016, [place] [employer]. Diabetes Care. 2016.39(Suppl 1). Performed By: #### 2 4321-2, 56281-4, 2776-10 ####[facility] LABORATORYCLIA [id number] [place] [id number] [place] Potassium [Moles/Vol] 3.8 mmol/L Normal 3.7-5.1 [facility] Comment on above: Order Comment: Kristin paige Type: BLOOD SPECIMENOrdering Facility: [facility] Address: [address] [place] [address] Performed By: #### 2 4321-2, , 2776-10 ####[facility]ORATORYCLIA [id number] [place] [address] [place] Sodium [Moles/Vol] 137 mmol/L Normal 136-144 [facility] Comment on above: Order Comment: Speci men Type: BLOOD SPECIMENOrdering Facility: [facility] Address: [address] [place] [address] Performed By: #### 2 4321-2, , 2776-10 ####[facility] LABORATORYCLIA [id number] [place] [address] [place] Urea nitrogen [Mass/Vol] 15 mg/dL Normal 7-21 [facility] Comment on above: Order Comment: Speci men Type: BLOOD SPECIMENOrdering Facility: [facility] Address: [address] [place] [address] Performed By: #### 2 4321-2, , 2776-10 ####[facility] LABORATORYCLIA [id number] [place] [address] [place] Anion gap [Moles/Vol] 10 mmol/L Normal 9-18 [facility] Comment on above: Order Comment: Speci men Type: BLOOD SPECIMENOrdering Facility: [facility] Address: [address] [place] [address] Performed By: #### 2 4320-2 ####[facility]ATORYCLIA [id number] [place] [address] [place] Calcium [Mass/Vol] 9.4 mg/dL Normal 8.5-10.2 [facility] Comment on above: Order Comment: Speci men Type: BLOOD SPECIMENOrdering Facility: [facility] Address: [address] [place] [address] Performed By: #### 2 4321-2 ####[facility]ATORYCLIA [id number] [place] [address] [place] Chloride [Moles/Vol] 100 mmol/L Normal 97-105 [facility] Comment on above: Order Comment: Speci men Type: BLOOD SPECIMENOrdering Facility: [facility] Address: [address] [place] [address] Performed By: #### 2 4321-2 ####[facility] LABORATORYCLIA [id number] [place] [id number] [place] CO2 [Moles/Vol] 25 mmol/L Normal 22-30 [facility] Comment on above: Order Comment: Speci men Type: BLOOD SPECIMENOrdering Facility: [facility] Address: [address] [place] [address] Performed By: #### 2 4321-2 ####[facility]ITALCLIA [id number] [address] [place] Creatinine [Mass/Vol] 0.74 mg/dL Normal 0.58-0.96 [facility] Comment on above: Order Comment: Speci men Type: BLOOD SPECIMENOrdering Facility: [facility] Address: [address] [place] [address] Performed By: #### 2 4321-2 ####[facility]ITALCLIA [id number] [address] Creatinine and Glomerular filtration rate.predicted panel (S/P/Bld) 81 mL/min/1.73m??? Normal >=60 [facility] Comment on above: Order Comment: Speci men Type: BLOOD SPECIMENOrdering Facility: [facility] Address: [address] [place] [address] Result Comment: Felicia mated Glomerular Filtration Rate [...] actual GFR. Performed By: #### 2 4321-2 ####[facility] LABORATORYCLIA [id number] [address] [place] Glucose [Mass/Vol] 148 mg/dL High 74-99 [facility] Comment on above: Order Comment: Kristin royal Type: BLOOD SPECIMENOrdering Facility: [facility] Address: [address] [place] [address] Result Comment: The [place] Diabetes Association (ADA) provides guidance for cutoff [...] Standards of Medical Care in Diabetes 2016, [place] [employer]. Diabetes Care. 2016.39(Suppl 1). Performed By: #### 2 4321-2 ####[facility] LABORATORYCLIA [id number] [place] [address] [place] Potassium [Moles/Vol] 3.9 mmol/L Normal 3.7-5.1 [facility] Comment on above: Order Comment: Kristin royal Type: BLOOD SPECIMENOrdering Facility: [facility] Address: [address] [place] [address] Performed By: #### 2 4321-2 ####[facility] LABORATORYCLIA [id number] [place] [address] [place] Sodium [Moles/Vol] 135 mmol/L Low 136-144 [facility] Comment on above: Order Comment: Lului men Type: BLOOD SPECIMENOrdering Facility: [facility] Address: [address] [place] [address] Performed By: #### 2 4321-2 ####[facility] LABORATORYCLIA [id number] [place] [address] [place] Urea nitrogen [Mass/Vol] 16 mg/dL Normal 7-21 [facility] Comment on above: Order Comment: Lului men Type: BLOOD SPECIMENOrdering Facility: [facility] Address: [address] [place] [address] Performed By: #### 2 4321-2 ####[facility] LABORATORYCLIA [id number] [address] CBC Pnl Bld Autoon Hemoglobin (Bld) [Mass/Vol] 11.0 g/dL Low 11.5-15.5 [facility] Comment on above: Order Comment: Speci men Type: BLOOD SPECIMENOrdering Facility: [facility] Address: [address] [place] [address] Performed By: #### 5 8410-2 ####[facility] LABORATORYCLIA [id number] [address] Order Comment: Speci men Type: ARTERIAL BLOOD SPECIMENOrdering Facility: [facility] Address: [address] [place] [address] Performed By: #### A LLBG ####[facility] LABORATORYCLIA [id number] [address] CBC W Auto Differential pane l (Bld)on 02-04-2024 Basophils (Bld) [#/Vol] 0.04 10*3/uL Normal <0.11 [facility] Comment on above: Order Comment: Speci men Type: BLOOD SPECIMENOrdering Facility: [facility] Address: [address] [place] [address] Performed By: #### 5 7021-8 ####[facility] LABORATORYCLIA [id number] [address] Basophils/100 WBC (Bld) 0.3 % Normal [facility] Comment on above: Order Comment: Speci men Type: BLOOD SPECIMENOrdering Facility: [facility] Address: [address] [place] [address] Performed By: #### 5 7021-8 ####[facility] LABORATORYCLIA [id number] [address] Differential cell count method Nom (Bld) Auto Normal [facility] Comment on above: Order Comment: Speci men Type: BLOOD SPECIMENOrdering Facility: [facility] Address: [address] [place] [address] Performed By: #### 5 7021-8 ####[facility] LABORATORYCLIA [id number] [address] [place] Eosinophils (Bld) [#/Vol] 0.25 10*3/uL Normal <0.46 [facility] Comment on above: Order Comment: Speci men Type: BLOOD SPECIMENOrdering Facility: [facility] Address: [address] [place] [address] Performed By: #### 5 7021-8 ####[facility] LABORATORYCLIA [id number] [address] Eosinophils/100 WBC (Bld) 1.9 % Normal [facility] Comment on above: Order Comment: Speci men Type: BLOOD SPECIMENOrdering Facility: [facility] Address: [address] [place] [address] Performed By: #### 5 7021-8 ####[facility] LABORATORYCLIA [id number] [address] [place] Erythrocyte distribution width (RBC) [Ratio] 13.6 % Normal 11.5-15.0 [facility] Comment on above: Order Comment: Speci men Type: BLOOD SPECIMENOrdering Facility: [facility] Address: [address] [place] [address] Performed By: #### 5 7021-8 ####[facility]ORATORYCLIA [id number] [address] [place] Hematocrit (Bld) [Volume fraction] 40.0 % Normal 36.0-46.0 [facility] Comment on above: Order Comment: Speci men Type: BLOOD SPECIMENOrdering Facility: [facility] Address: [facility] [place] [address] Performed By: #### 5 7021-8 ####[facility]ORATORYCLIA [id number] [address] [place] Hemoglobin (Bld) [Mass/Vol] 13.3 g/dL Normal 11.5-15.5 [facility] Comment on above: Order Comment: Speci men Type: BLOOD SPECIMENOrdering Facility: [facility] Address: [address] [place] [address] Performed By: #### 5 7021-8 ####[facility]ORATORYCLIA [id number] [place] [address] [place] Immature granulocytes (Bld) [#/Vol] 0.05 10*3/uL Normal <0.10 [facility] Comment on above: Order Comment: Speci men Type: BLOOD SPECIMENOrdering Facility: [facility] Address: [address] [place] [address] Performed By: #### 5 7021-8 ####[facility]ATORYCLIA [id number] [address] [place] Immature granulocytes/100 WBC (Bld) 0.4 % Normal [facility] Comment on above: Order Comment: Speci men Type: BLOOD SPECIMENOrdering Facility: [facility] Address: [address] [place] [address] Performed By: #### 5 7021-8 ####[facility]ATORYCLIA [id number] [place] [address] [place] Lymphocytes (Bld) [#/Vol] 1.57 10*3/uL Normal 1.00-4.00 [facility] Comment on above: Order Comment: Speci men Type: BLOOD SPECIMENOrdering Facility: [facility] Address: [address] [place] [address] Performed By: #### 5 7021-8 ####[facility]ATORYCLIA [id number] [address] [place] Lymphocytes/100 WBC (Bld) 11.7 % Normal [facility] Comment on above: Order Comment: Speci men Type: BLOOD SPECIMENOrdering Facility: [facility] Address: [address] [place] [address] Performed By: #### 5 7021-8 ####[facility]ORATORYCLIA [id number] [address] MCH (RBC) [Entitic mass] 32.0 pg Normal 26.0-34.0 [facility] Comment on above: Order Comment: Speci men Type: BLOOD SPECIMENOrdering Facility: [facility] Address: [address] [place] [address] Performed By: #### 5 7021-8 ####[facility] LABORATORYCLIA [id number] [address] STATES OF [facility] MCHC (RBC) [Mass/Vol] 33.3 g/dL Normal 30.5-36.0 [facility] Comment on above: Order Comment: Speci men Type: BLOOD SPECIMENOrdering Facility: [facility] Address: [address] [place] [address] Performed By: #### 5 7021-8 ####[facility] LABORATORYCLIA [id number] [address] MCV (RBC) [Entitic vol] 96.4 fL Normal 80.0-100.0 [facility] Comment on above: Order Comment: Speci men Type: BLOOD SPECIMENOrdering Facility: [facility] Address: [address] [place] [address] Performed By: #### 5 7021-8 ####[facility] LABORATORYCLIA [id number] [address] OF [facility] Monocytes (Bld) [#/Vol] 0.84 10*3/uL Normal <0.87 [facility] Comment on above: Order Comment: Speci men Type: BLOOD SPECIMENOrdering Facility: [facility] Address: [address] [place] [address] Performed By: #### 5 7021-8 ####[facility] LABORATORYCLIA [id number] [address] Monocytes/100 WBC (Bld) 6.3 % Normal [facility] Comment on above: Order Comment: Speci men Type: BLOOD SPECIMENOrdering Facility: [facility] Address: [address] [place], [place] [address] Performed By: #### 5 7021-8 ####[facility] LABORATORYCLIA [id number] [place] [address] [place] Neutrophils (Bld) [#/Vol] 10.64 10*3/uL High 1.45-7.50 [facility] Comment on above: Order Comment: Speci men Type: BLOOD SPECIMENOrdering Facility: [facility] Address: [address] [place] [address] Performed By: #### 5 7021-8 ####[facility] LABORATORYCLIA [id number] [address] [place] Neutrophils/100 WBC (Bld) 79.4 % Normal [facility] Comment on above: Order Comment: Speci men Type: BLOOD SPECIMENOrdering Facility: [facility] Address: [address] [place] [address] Performed By: #### 5 7021-8 ####[facility] LABORATORYCLIA [id number] [address] [place] Nucleated RBC (Bld) [#/Vol] 10*3/uL Normal <0.01 [facility] Comment on above: Order Comment: Speci men Type: BLOOD SPECIMENOrdering Facility: [facility] Address: [address] [place] [address] Performed By: #### 5 7021-8 ####[facility] LABORATORYCLIA [id number] [address] [place] Nucleated RBC/100 WBC (Bld) [Ratio] 0.0 /100 WBC Normal [facility] Comment on above: Order Comment: Speci men Type: BLOOD SPECIMENOrdering Facility: [facility] Address: [address] [place] [address] Performed By: #### 5 7021-8 ####[facility]ORATORYCLIA [id number] [address] [place] Platelet mean volume (Bld) [Entitic vol] 8.8 fL Low 9.0-12.7 [facility] Comment on above: Order Comment: Speci men Type: BLOOD SPECIMENOrdering Facility: [facility] Address: [address] [place] [address] Performed By: #### 5 7021-8 ####[facility] LABORATORYCLIA [id number] [address] OF [facility] Platelets (Bld) [#/Vol] 317 10*3/uL Normal 150-400 [facility] Comment on above: Order Comment: Speci men Type: BLOOD SPECIMENOrdering Facility: [facility] Address: [address] [place] [address] Performed By: #### 5 7021-8 ####[facility] LABORATORYCLIA [id number] [address] OF [facility] RBC (Bld) [#/Vol] 4.15 10*6/uL Normal 3.90-5.20 [facility] Comment on above: Order Comment: Speci men Type: BLOOD SPECIMENOrdering Facility: [facility] Address: [address] [place] [address] Performed By: #### 5 7021-8 ####[facility] LABORATORYCLIA [id number] [address] WBC (Bld) [#/Vol] 13.39 10*3/uL High 3.70-11.00 [facility] Comment on above: Order Comment: Speci men Type: BLOOD SPECIMENOrdering Facility: [facility] Address: [address] [place] [address] Performed By: #### 5 7021-8 ####[facility] LABORATORYCLIA [id number] [address] CBC panel Auto (Bld)on 02-03 Erythrocyte distribution width (RBC) [Ratio] 13.7 % Normal 11.5-15.0 [facility] Comment on above: Order Comment: Speci men Type: BLOOD SPECIMENOrdering Facility: [facility] Address: [address] [place] [address] Performed By: #### 5 8410-2 ####[facility] LABORATORYCLIA [id number] [address] Hematocrit (Bld) [Volume fraction] 33.5 % Low 36.0-46.0 [facility] Comment on above: Order Comment: Speci men Type: BLOOD SPECIMENOrdering Facility: [facility] Address: [address] [place] [address] Performed By: #### 5 8410-2 ####[facility] LABORATORYCLIA [id number] [address] MCH (RBC) [Entitic mass] 31.8 pg Normal 26.0-34.0 [facility] Comment on above: Order Comment: Speci men Type: BLOOD SPECIMENOrdering Facility: [facility] Address: [address] [place] [address] Performed By: #### 5 8410-2 ####[facility] LABORATORYCLIA [id number] [address] MCHC (RBC) [Mass/Vol] 32.8 g/dL Normal 30.5-36.0 [facility] Comment on above: Order Comment: Speci men Type: BLOOD SPECIMENOrdering Facility: [facility] Address: [address] [place] [address] Performed By: #### 5 8410-2 ####[facility] LABORATORYCLIA [id number] [address] MCV (RBC) [Entitic vol] 96.8 fL Normal 80.0-100.0 [facility] Comment on above: Order Comment: Speci men Type: BLOOD SPECIMENOrdering Facility: [facility] Address: [address] [place] [address] Performed By: #### 5 8410-2 ####[facility] LABORATORYCLIA [id number] [address] Nucleated RBC (Bld) [#/Vol] 10*3/uL Normal <0.01 [facility] Comment on above: Order Comment: Speci men Type: BLOOD SPECIMENOrdering Facility: [facility] Address: [address] [place] [address] Performed By: #### 5 8410-2 ####[facility] LABORATORYCLIA [id number] [address] [place] Platelet mean volume (Bld) [Entitic vol] 8.6 fL Low 9.0-12.7 [facility] Comment on above: Order Comment: Speci men Type: BLOOD SPECIMENOrdering Facility: [facility] Address: [address] [place] [address] Performed By: #### 5 8410-2 ####[facility] LABORATORYCLIA [id number] [address] OF [facility] Platelets (Bld) [#/Vol] 243 10*3/uL Normal 150-400 [facility] Comment on above: Order Comment: Speci men Type: BLOOD SPECIMENOrdering Facility: [facility] Address: [address] [place] [address] Performed By: #### 5 8410-2 ####[facility] LABORATORYCLIA [id number] [address] RBC (Bld) [#/Vol] 3.46 10*6/uL Low 3.90-5.20 [facility] Comment on above: Order Comment: Speci men Type: BLOOD SPECIMENOrdering Facility: [facility] Address: [address] [place] [address] Performed By: #### 5 8410-2 ####[facility] LABORATORYCLIA [id number] [address] WBC (Bld) [#/Vol] 12.08 10*3/uL High 3.70-11.00 [facility] Comment on above: Order Comment: Speci men Type: BLOOD SPECIMENOrdering Facility: [facility] Address: [address] [place] [address] Performed By: #### 5 8410-2 ####[facility] LABORATORYCLIA [id number] [place] [address] [place] Erythrocyte distribution width (RBC) [Ratio] 13.5 % Normal 11.5-15.0 [facility] Comment on above: Order Comment: Speci men Type: BLOOD SPECIMENOrdering Facility: [facility] Address: [address] [place] [address] Performed By: #### 5 8410-2 ####[facility] LABORATORYCLIA [id number] [address] OF [facility] Hematocrit (Bld) [Volume fraction] 37.5 % Normal 36.0-46.0 [facility] Comment on above: Order Comment: Speci men Type: BLOOD SPECIMENOrdering Facility: [facility] Address: [address] [place] [address] Performed By: #### 5 8410-2 ####[facility] LABORATORYCLIA [id number] [address] [place] Hemoglobin (Bld) [Mass/Vol] 12.4 g/dL Normal 11.5-15.5 [facility] Comment on above: Order Comment: Speci men Type: BLOOD SPECIMENOrdering Facility: [facility] Address: [address] [place] [address] Performed By: #### 5 8410-2 ####[facility] LABORATORYCLIA [id number] [address] [place] MCH (RBC) [Entitic mass] 31.9 pg Normal 26.0-34.0 [facility] Comment on above: Order Comment: Speci men Type: BLOOD SPECIMENOrdering Facility: [facility] Address: [address] [place] [address] Performed By: #### 5 8410-2 ####[facility] LABORATORYCLIA [id number] [address] [place] MCHC (RBC) [Mass/Vol] 33.1 g/dL Normal 30.5-36.0 [facility] Comment on above: Order Comment: Speci men Type: BLOOD SPECIMENOrdering Facility: [facility] Address: [address] [place] [address] Performed By: #### 5 8410-2 ####[facility] LABORATORYCLIA [id number] [address] [place] MCV (RBC) [Entitic vol] 96.4 fL Normal 80.0-100.0 [facility] Comment on above: Order Comment: Speci men Type: BLOOD SPECIMENOrdering Facility: [facility] Address: [address] [place] [address] Performed By: #### 5 8410-2 ####[facility] LABORATORYCLIA [id number] [address] OF [place] Nucleated RBC (Bld) [#/Vol] 10*3/uL Normal <0.01 [facility] Comment on above: Order Comment: Speci men Type: BLOOD SPECIMENOrdering Facility: [facility] Address: [address] [place] [address] Performed By: #### 5 8410-2 ####[facility] LABORATORYCLIA [id number] [address] OF [facility] Platelet mean volume (Bld) [Entitic vol] 8.7 fL Low 9.0-12.7 [facility] Comment on above: Order Comment: Speci men Type: BLOOD SPECIMENOrdering Facility: [facility] Address: [address] [place] [address] Performed By: #### 5 8410-2 ####[facility] LABORATORYCLIA [id number] [address] Platelets (Bld) [#/Vol] 279 10*3/uL Normal 150-400 [facility] Comment on above: Order Comment: Speci men Type: BLOOD SPECIMENOrdering Facility: [facility] Address: [address] [place] [address] Performed By: #### 5 8410-2 ####[facility] LABORATORYCLIA [id number] [address] [place] RBC (Bld) [#/Vol] 3.89 10*6/uL Low 3.90-5.20 [facility] Comment on above: Order Comment: Speci men Type: BLOOD SPECIMENOrdering Facility: [facility] Address: [address] [place] [address] Performed By: #### 5 8410-2 ####[facility] LABORATORYCLIA [id number] [address] [place] WBC (Bld) [#/Vol] 15.65 10*3/uL High 3.70-11.00 [facility] Comment on above: Order Comment: Speci men Type: BLOOD SPECIMENOrdering Facility: [facility] Address: [address] [place] [address] Performed By: #### 5 8410-2 ####[facility] LABORATORYCLIA [id number] [place] [id number] [place] CONSULTon 02-04-2024 CONSULT Normal [facility] ECG COMPLETEon 02-04-2024 ECG COMPLETE Normal [facility] Magnesium SerPl-mCncon 02-03 Magnesium [Mass/Vol] 1.9 mg/dL Normal 1.7-2.3 [facility] Comment on above: Order Comment: Speci men Type: BLOOD SPECIMENOrdering Facility: [facility] Address: [address] [place] [address] Performed By: #### 2 4321-2, , 2776-10 ####[facility] LABORATORYCLIA [id number] [address] [place] NURSING PROGon 02-04-2024 NURSING PROG Normal [facility] NURSING PROG Normal [facility] OPERATIVE NOon 02-04-2024 OPERATIVE NO Normal [facility] Phosphate SerPl-mCncon 02-03 Phosphate [Mass/Vol] 3.5 mg/dL Normal 2.7-4.8 [facility] Comment on above: Order Comment: Speci men Type: BLOOD SPECIMENOrdering Facility: [facility] Address: [address] [place] [address] Performed By: #### 2 4321-2, , 2776-10 ####[facility] LABORATORYCLIA [id number] [address] STAPHYLOCOCCUS AUREUS AND MR SA SCREEN, PCR, NASALon 02-04-2024 S. aureus and MRSA panel HAYDEN+probe (Nose) Normal Negative [facility] Comment on above: Order Comment: Speci men Type: SWABOrdering Facility: [facility] Address: [address] [place] [address] Result Comment: Nega tive for Staphylococcus aureus by PCR.Negative for MRSA by PCR Performed By: #### S APCR ####[facility] LABORATORYCLIA [id number] [address] SURGICAL PATHOLOGYon 024 CASE REPORT Normal [facility] Comment on above: Order Comment: Speci men Type: TISSUE SPECIMENOrdering Facility: [facility] Address: [address] [place] [address] Result Comment: Surg ica Pathology Report Case: [id number] Provider: Mayank Hanson, Collected: 02/04/2024 09:04 AM MDOrdering Location: [place] [facility] Received: 02/05/2024 08:17 AMPathologist: Acacia Avery MDSpecimen: Femoral Head, Left Performed By: #### S ####[facility]ITALCLIA [id number] [address] CLINICAL HISTORY Normal [facility] Comment on above: Order Comment: Speci men Type: TISSUE SPECIMENOrdering Facility: [facility] Address: [address] [place] [address] Result Comment: Pre- op diagnosis:Closed displaced fracture of left femoral neck (HCC) [S72.002A] Performed By: #### S ####[facility] LABORATORYCLIA [id number] [address] FINAL DIAGNOSIS Normal [facility] Comment on above: Order Comment: Speci men Type: TISSUE SPECIMENOrdering Facility: [facility] Address: [address] [place] [address] Result Comment: Femo ral head, left, left internal fixation/prosthetic replacement:- Fragmentation of the bony trabeculae with hemorrhage into the medullary cavity, consistent with recent fracture.- No malignancy is seen.- Degenerative changes of the articular cartilage. Performed By: #### S ####[facility] LABORATORYCLIA [id number] [address] OF [facility] FINAL PERFORMING LAB Normal [facility] Comment on above: Order Comment: Speci men Type: TISSUE SPECIMENOrdering Facility: [facility] Address: [address] [place] [address] Result Comment: Diag nostic interpretation performed at [facility], [address] [place] [address] CLIA# [id number] Director: Kade Duron M.D. Performed By: #### S ####[facility] LABORATORYCLIA [id number] [address] GROSS DESCRIPTION Normal [facility] Comment on above: Order Comment: Speci men Type: TISSUE SPECIMENOrdering Facility: [facility] Address: [address] [place] [address] Result Comment: A. F emoral Head, LeftReceived [...] tissue is not received with the specimen. Caddymaster sections are submitted in formalin in 2 cassettes following a period of decalcification. Gross examination performed at [facility], [address] [place], [place] [address]KVB February 05, 2024 10:24 AM Performed By: #### S ####[facility] LABORATORYCLIA [id number] [address] [place] XR PELVIS 1V APon 02-04-2024 XR PELVIS 1V AP Normal [facility] CASE MGT INIT ASSESon 2023 CASE MGT INIT ASSES Normal [facility] CBC panel Auto (Bld)on 02-02 Erythrocyte distribution width (RBC) [Ratio] 13.5 % Normal 11.5-15.0 [facility] Comment on above: Order Comment: Speci men Type: BLOOD SPECIMENOrdering Facility: [facility] Address: [address] [place] [address] Performed By: #### 5 8410-2 ####[facility] LABORATORYCLIA [id number] [address] OF [facility] Hematocrit (Bld) [Volume fraction] 38.4 % Normal 36.0-46.0 [facility] Comment on above: Order Comment: Speci men Type: BLOOD SPECIMENOrdering Facility: [facility] Address: [address] [place] [address] Performed By: #### 5 8410-2 ####[facility] LABORATORYCLIA [id number] [address] OF [facility] Hemoglobin (Bld) [Mass/Vol] 12.9 g/dL Normal 11.5-15.5 [facility] Comment on above: Order Comment: Speci men Type: BLOOD SPECIMENOrdering Facility: [facility] Address: [address] [place] [address] Performed By: #### 5 8410-2 ####[facility] LABORATORYCLIA [id number] [address] [place] MCH (RBC) [Entitic mass] 32.1 pg Normal 26.0-34.0 [facility] Comment on above: Order Comment: Speci men Type: BLOOD SPECIMENOrdering Facility: [facility] Address: [address] [place] [address] Performed By: #### 5 8410-2 ####[facility] LABORATORYCLIA [id number] [address] [place] MCHC (RBC) [Mass/Vol] 33.6 g/dL Normal 30.5-36.0 [facility] Comment on above: Order Comment: Speci men Type: BLOOD SPECIMENOrdering Facility: [facility] Address: [address] [place] [address] Performed By: #### 5 8410-2 ####[facility] LABORATORYCLIA [id number] [address] MCV (RBC) [Entitic vol] 95.5 fL Normal 80.0-100.0 [facility] Comment on above: Order Comment: Speci men Type: BLOOD SPECIMENOrdering Facility: [facility] Address: [address] [place] [address] Performed By: #### 5 8410-2 ####[facility] LABORATORYCLIA [id number] [address] Nucleated RBC (Bld) [#/Vol] 10*3/uL Normal <0.01 [facility] Comment on above: Order Comment: Speci men Type: BLOOD SPECIMENOrdering Facility: [facility] Address: [address] [place] [address] Performed By: #### 5 8410-2 ####[facility] LABORATORYCLIA [id number] [address] Platelet mean volume (Bld) [Entitic vol] 8.6 fL Low 9.0-12.7 [facility] Comment on above: Order Comment: Speci men Type: BLOOD SPECIMENOrdering Facility: [facility] Address: [address] [place] [address] Performed By: #### 5 8410-2 ####[facility] LABORATORYCLIA [id number] [address] Platelets (Bld) [#/Vol] 336 10*3/uL Normal 150-400 [facility] Comment on above: Order Comment: Speci men Type: BLOOD SPECIMENOrdering Facility: [facility] Address: [address] [place] [address] Performed By: #### 5 8410-2 ####[facility] LABORATORYCLIA [id number] [address] RBC (Bld) [#/Vol] 4.02 10*6/uL Normal 3.90-5.20 [facility] Comment on above: Order Comment: Speci men Type: BLOOD SPECIMENOrdering Facility: [facility] Address: [address] [place] [address] Performed By: #### 5 8410-2 ####[facility] LABORATORYCLIA [id number] [place] [address] [place] WBC (Bld) [#/Vol] 8.70 10*3/uL Normal 3.70-11.00 [facility] Comment on above: Order Comment: Speci men Type: BLOOD SPECIMENOrdering Facility: [facility] Address: [address] [place] [address] Performed By: #### 5 8410-2 ####[facility] LABORATORYCLIA [id number] [address] CONFIRM BLOOD TYPEon 024 ABO O Normal [facility] Comment on above: Order Comment: Speci men Type: BLOOD SPECIMENOrdering Facility: [facility] Address: [address] [place] [address] Performed By: #### C ONABO ####[facility] BLOOD BANKCLIA [id number] [address] OF [facility] Rh Nom (Bld) Positive Normal [facility] Comment on above: Order Comment: Speci men Type: BLOOD SPECIMENOrdering Facility: [facility] Address: [address] [place] [address] Performed By: #### C ONABO ####[facility] BLOOD BANKCLIA [id number] [address] [place] CONSULTon 02-03-2024 CONSULT Normal [facility] CT BRAIN WO IVCONon 02-03-[address] BRAIN WO IVCON Normal [facility] CT CERVICAL SPINE WO IVCONon 02-03-2024 CT CERVICAL SPINE WO IVCON Normal [facility] Comprehensive metabolic 2000 panelon 02-03-2024 Albumin [Mass/Vol] 4.1 g/dL Normal 3.9-4.9 [facility] Comment on above: Order Comment: Speci men Type: BLOOD SPECIMENOrdering Facility: [facility] Address: [address] [place] [address] Performed By: #### 2 4323-8, 3040-3 ####[facility] LABORATORYCLIA [id number] [address] OF [facility] ALP [Catalytic activity/Vol] 107 U/L Normal 34-123 [facility] Comment on above: Order Comment: Speci men Type: BLOOD SPECIMENOrdering Facility: [facility] Address: [address] [place] [address] Performed By: #### 2 4323-8, 0-3 ####[facility] LABORATORYCLIA [id number] [address] [place] ALT With P-5'-P [Catalytic activity/Vol] 41 U/L High 7-38 [facility] Comment on above: Order Comment: Speci men Type: BLOOD SPECIMENOrdering Facility: [facility] Address: [address] [place] [address] Performed By: #### 2 4323-8, 0-3 ####[facility] LABORATORYCLIA [id number] [address] STATES OF [facility] Anion gap [Moles/Vol] 12 mmol/L Normal 9-18 [facility] Comment on above: Order Comment: Speci men Type: BLOOD SPECIMENOrdering Facility: [facility] Address: [address] [place] [address] Performed By: #### 2 4323-8, 3040-3 ####[facility] LABORATORYCLIA [id number] [address] [place] AST With P-5'-P [Catalytic activity/Vol] 38 U/L High 13-35 [facility] Comment on above: Order Comment: Speci men Type: BLOOD SPECIMENOrdering Facility: [facility] Address: [address] [place] [address] Performed By: #### 2 4323-8, 0-3 ####[facility] LABORATORYCLIA [id number] [place] [address] [place] Bilirubin [Mass/Vol] 0.3 mg/dL Normal 0.2-1.3 [facility] Comment on above: Order Comment: Speci men Type: BLOOD SPECIMENOrdering Facility: [facility] Address: [address] [place] [address] Performed By: #### 2 4323-8, 3039-3 ####[facility] LABORATORYCLIA [id number] [place] [address] [place] Calcium [Mass/Vol] 9.3 mg/dL Normal 8.5-10.2 [facility] Comment on above: Order Comment: Speci men Type: BLOOD SPECIMENOrdering Facility: [facility] Address: [address] [place] [address] Performed By: #### 2 4323-8, 3039-3 ####[facility] LABORATORYCLIA [id number] [place] [address] [place] Chloride [Moles/Vol] 104 mmol/L Normal 97-105 [facility] Comment on above: Order Comment: Speci men Type: BLOOD SPECIMENOrdering Facility: [facility] Address: [address] [place] [address] Performed By: #### 2 4323-8, 0-3 ####[facility] LABORATORYCLIA [id number] [place] [address] [place] CO2 [Moles/Vol] 23 mmol/L Normal 22-30 [facility] Comment on above: Order Comment: Speci men Type: BLOOD SPECIMENOrdering Facility: [facility] Address: [address] [place] [address] Performed By: #### 2 4323-8, 0-3 ####[facility] LABORATORYCLIA [id number] [place] [address] [place] Creatinine [Mass/Vol] 0.66 mg/dL Normal 0.58-0.96 [facility] Comment on above: Order Comment: Kristin paige Type: BLOOD SPECIMENOrdering Facility: [facility] Address: [address] [place] [address] Performed By: #### 2 4323-8, 3040-3 ####[facility] LABORATORYCLIA [id number] [place] [id number] [place] Creatinine and Glomerular filtration rate.predicted panel (S/P/Bld) 88 mL/min/1.73m??? Normal >=60 [facility] Comment on above: Order Comment: Kristin paige Type: BLOOD SPECIMENOrdering Facility: [facility] Address: [address] [place] [address] Result Comment: Felicia mated Glomerular Filtration Rate [...] GFR. Performed By: #### 2 4323-8, 3040-3 ####[facility] LABORATORYCLIA [id number] [place] [id number] [place] Glucose [Mass/Vol] 122 mg/dL High 74-99 [facility] Comment on above: Order Comment: Kristin royal Type: BLOOD SPECIMENOrdering Facility: [facility] Address: [address] [place] [address] Result Comment: The [place] [employer] (ADA) provides guidance for cutoff [...] Standards of Medical Care in Diabetes 2016, [place] [employer]. Diabetes Care. 2016.39(Suppl 1). Performed By: #### 2 4323-8, 0-3 ####[facility] LABORATORYCLIA [id number] [place] [address] [place] Potassium [Moles/Vol] 3.9 mmol/L Normal 3.7-5.1 [facility] Comment on above: Order Comment: Speci men Type: BLOOD SPECIMENOrdering Facility: [facility] Address: [address] [place] [address] Performed By: #### 2 4323-8, 0-3 ####[facility] LABORATORYCLIA [id number] [place] [address] [place] Protein [Mass/Vol] 7.1 g/dL Normal 6.3-8.0 [facility] Comment on above: Order Comment: Speci men Type: BLOOD SPECIMENOrdering Facility: [facility] Address: [address] [place] [address] Performed By: #### 2 4323-8, 0-3 ####[facility] LABORATORYCLIA [id number] [place] [address] [place] Sodium [Moles/Vol] 139 mmol/L Normal 136-144 [facility] Comment on above: Order Comment: Speci men Type: BLOOD SPECIMENOrdering Facility: [facility] Address: [address] [place] [address] Performed By: #### 2 4323-8, 0-3 ####[facility] LABORATORYCLIA [id number] [address] [place] Urea nitrogen [Mass/Vol] 14 mg/dL Normal 7-21 [facility] Comment on above: Order Comment: Speci men Type: BLOOD SPECIMENOrdering Facility: [facility] Address: [address] [place] [address] Performed By: #### 2 4323-8, 0-3 ####[facility] LABORATORYCLIA [id number] [place] [address] [place] ED NOTEon 02-03-2024 ED NOTE HNO ID: [id number] Author: MARTA DICKENS, RN Service: Emergency Medicine Author Type: Registered Nurse Type: ED Notes Filed: 02/03/2024 13:34 Note Text: Lunch tray to pt Normal [facility] ED NOTE HNO ID: [id number] Author: MARTA DICKENS, RN Service: Emergency Medicine Author Type: Registered Nurse Type: ED Notes Filed: 02/03/2024 12:27 Note Text: [email or web address] [facility] ED NOTE HNO ID: [id number] Author: MARTA DICKENS, RN Service: Emergency Medicine Author Type: Registered Nurse Type: ED Notes Filed: 02/03/2024 11:20 Note Text: [email or web address] [facility] ED NOTE HNO ID: [id number] Author: LUCY COLÓN RN Service: ? Author Type: Registered Nurse Type: ED Notes Filed: 02/03/2024 09:57 Note Text: Bed: 12-ED Expected date: Expected time: Means of arrival: Comments: [facility] [place] [facility] NOTEon 02-03-2024 ED PROV NOTE Normal [facility] ED PROV NOTE Normal [facility] Ethanol SerPl-mCncon 024 Ethanol [Mass/Vol] mg/dL Normal <11 [facility] Comment on above: Order Comment: Speci men Type: BLOOD SPECIMENOrdering Facility: [facility] Address: [address] [place] [address] Performed By: #### 5 643-2 ####[facility] LABORATORYCLIA [id number] [place] [address] [place] HISTORY PHYSICALon 4 HISTORY PHYSICAL Normal [facility] Lipase SerPl-cCncon 02-03-20 24 Lipase [Catalytic activity/Vol] 24 U/L Normal 16- [facility] Comment on above: Order Comment: Speci men Type: BLOOD SPECIMENOrdering Facility: [facility] Address: [address] [place] [address] Performed By: #### 2 4323-8, 3040-3 ####[facility] LABORATORYCLIA [id number] [place] [address] [place] PT panel Coag (PPP)on 2023 INR Coag (PPP) [Relative time] 1.0 {INR} Normal 0.9-1.3 [facility] Comment on above: Order Comment: Speci royal Type: BLOOD SPECIMENOrdering Facility: [facility] Address: [address] [place] [address] Result Comment: Nicolette min K Antagonist (VKA) Therapeutic Range: INR 2 to 3 (Target INR of 2.5)Note: For patients treated with VKA drugs, such as warfarin, the [place] [employer] 2012 Guideline recommends [...] al. Chest 2012, 141:7S-47SNishimura RA, et al. [facility] 2017, 70: 252-289 Performed By: #### 1 4979-9, 36801-9 ####[facility] LABORATORYCLIA [id number] [place] [id number] [place] PT Coag (PPP) [Time] 10.3 s Normal 9.7-13.0 [facility] Comment on above: Order Comment: Speci ryoal Type: BLOOD SPECIMENOrdering Facility: [facility] Address: [address] [place] [address] Performed By: #### 1 4979-9, 80002-8 ####[facility] LABORATORYCLIA [id number] [place] [id number] [place] TYPE + SCREENon 02-03-2024 ABO O Normal [facility] Comment on above: Order Comment: Speci men Type: BLOOD SPECIMENOrdering Facility: [facility] Address: [address] [place] [address] Performed By: #### T SCR ####[facility] BLOOD BANKCLIA [id number] [address] HISTORICAL AB SCR STATUS Negative Normal [facility] Comment on above: Order Comment: Speci men Type: BLOOD SPECIMENOrdering Facility: [facility] Address: [address] [place] [address] Performed By: #### T SCR ####[facility] BLOOD BANKCLIA [id number] [address] Rh Nom (Bld) Positive Normal [facility] Comment on above: Order Comment: Speci men Type: BLOOD SPECIMENOrdering Facility: [facility] Address: [address] [place] [address] Performed By: #### T SCR ####[facility] BLOOD BANKCLIA [id number] [address] TYPE AND SCREEN EXPIRATION 02/06/2024 23:59 Normal [facility] Comment on above: Order Comment: Speci men Type: BLOOD SPECIMENOrdering Facility: [facility] Address: [address] [place] [address] Performed By: #### T SCR ####[facility] BLOOD BANKCLIA [id number] [address] OF [facility] XR CHEST 1V FRONTALon 2023 XR CHEST 1V FRONTAL Normal [facility] XR FEMUR 2V AP/LAT LTon 01-08 XR FEMUR 2V AP/LAT LT Normal [facility] XR HIP 3V PELV+ AP/LAT LTon 02-03-2024 XR HIP 3V PELV+ AP/LAT LT Normal [facility] XR HUMERUS 2V AP/LAT LTon XR HUMERUS 2V AP/LAT LT Normal [facility] XR SHLDR >/=3V AP/NICA AP/OTH R LTon 02-03-2024 XR SHLDR >/=3V AP/NICA AP/OTHR LT Normal [facility] aPTT PPPon 02-03-2024 aPTT Coag (PPP) [Time] 26.2 s Normal 23.0-32.[address] [facility] Comment on above: Order Comment: Speci men Type: BLOOD SPECIMENOrdering Facility: [facility] Address: [address] [place] [address] Performed By: #### 1 4979-9, 48253-4 ####[facility] LABORATORYCLIA [id number] [place] [address] [place] Bacteria identified Cx Nom ( U)on 01-30-2024 Interpretation and review of laboratory results Abnormal [facility] Urine cultureon 01-30-2024 Bacteria identified Cx Nom (U) SEE NOTE Abnormal [facility] Comment on above: CULTURE, URINE, ROUTINE Micro Number: [id number] Test Status: Final Specimen Source: Urine Specimen [...] Tressa Lam on 01-27-2024 Bilirubin, UA Negative [facility] h Blood, UA Trace-Intact [facility] Glucose, UA Negative [facility] Ketones, UA (mg/dL) Negative Negative mg/dL [facility] Leukocytes, UA Large [facility] th Nitrite, UA Negative [facility] pH, UA 6.0 [facility] Protein, UA Negative [facility] Spec Grav, UA <1.005 [facility] Urobilinogen, UA 0.2 [facility] Radiology Study observation (narrative) [facility] Progress Noteon 01-27-[address] [facility] [address] Dept: [phone] Dept Loc: [phone] Subjective Ann Marie Hill is a 83 [...] Blackmon APRN - BELKIS 01/27/2024 12:25 PM [facility] Office Visiton 01-26-2024 Follow-up visit [id number] Ann Marie Hill 1940 F Date Provider Department Center 01/26/2024 SUSI MOSER [facility] None No family history on file Level of Service:89705 [place] OFFICE/OUTPT VISIT,PROCEDURE ONLY Reason for Visit and Comments: UTI [[id number]] - UTI x2-3 weeks. Higher frequency. Burning since today. 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 01/26/24 [facility] CNOVon 01-24-2024 CNOV Normal [facility] ALLIED HEALTHon 01-18-2024 ALLIED HEALTH Normal [facility] Basic metabolic 2000 panelon 01-18-2024 Anion gap [Moles/Vol] 9 mmol/L Normal 9-18 [facility] Comment on above: Order Comment: Speci men Type: BLOOD SPECIMENOrdering Facility: [facility] Address: [address] [place] [address] Performed By: #### 2 4321-2, 26982-4, 3040-3, ####[facility] LABCLIA [id number] [place] [address] [place] Calcium [Mass/Vol] 9.0 mg/dL Normal 8.5-10.2 [facility] Comment on above: Order Comment: Speci men Type: BLOOD SPECIMENOrdering Facility: [facility] Address: [address] [place] [address] Performed By: #### 2 4321-2, 14588-1, 3040-3, 14175-4 ####[facility] LABCLIA [id number] [place] [address] [place] Chloride [Moles/Vol] 106 mmol/L High 97-105 [facility] Comment on above: Order Comment: Speci men Type: BLOOD SPECIMENOrdering Facility: [facility] Address: [address] [place] [address] Performed By: #### 2 4321-2, 90469-1, 3040-3, 14485-0 ####[facility] LABCLIA [id number] [place] [address] [place] CO2 [Moles/Vol] 21 mmol/L Low 22-30 [facility] Comment on above: Order Comment: Speci men Type: BLOOD SPECIMENOrdering Facility: [facility] Address: [address] [place] [address] Performed By: #### 2 4321-2, 19732-0, 3040-3, 44546-4 ####[facility] LABCLIA [id number] [place] [address] [place] Creatinine [Mass/Vol] 0.84 mg/dL Normal 0.58-0.96 [facility] Comment on above: Order Comment: Speci men Type: BLOOD SPECIMENOrdering Facility: [facility] Address: [address] [place] [address] Result Comment: Use of this assay is not recommended for patients undergoing treatment with phenindione, due to the potential for falsely depressed results. Performed By: #### 2 4321-2, 02171-6, 3040-3, ####[facility] LABCLIA [id number] [place] [address] [place] [facility] Creatinine and Glomerular filtration rate.predicted panel (S/P/Bld) 69 mL/min/1.73m??? Normal >=60 [facility] Comment on above: Order Comment: Speci men Type: BLOOD SPECIMENOrdering Facility: [facility] Address: [address] [place] [address] Result Comment: Felicia mated Glomerular Filtration Rate [...] actual GFR. Performed By: #### 2 4321-2, 79675-5, 3040-3, ####[facility] LABCLIA [id number] [place] [address] [place] Glucose [Mass/Vol] 107 mg/dL High 74-99 [facility] Comment on above: Order Comment: Kristin paige Type: BLOOD SPECIMENOrdering Facility: [facility] Address: [address] [place] [address] Result Comment: The [place] [employer] Association (ADA) provides guidance for cutoff [...] Standards of Medical Care in Diabetes 2016, [place] [employer]. Diabetes Care. 2016.39(Suppl 1). Performed By: #### 2 4321-2, 88650-9, 304-3, ####[facility] LABCLIA [id number] [place] [address] [place] Potassium [Moles/Vol] 3.1 mmol/L Low 3.7-5.1 [facility] Comment on above: Order Comment: Kristin paige Type: BLOOD SPECIMENOrdering Facility: [facility] Address: [address] [place] [id number] Performed By: #### 2 4321-2, 74339-9, 3040-3, 92030-7 ####[facility] LABCLIA [id number] [place] [address] [place] Sodium [Moles/Vol] 136 mmol/L Normal 136-144 [facility] Comment on above: Order Comment: Speci men Type: BLOOD SPECIMENOrdering Facility: [facility] Address: [address] [place] [address] Performed By: #### 2 4321-2, 13949-3, 3040-3, 77777-4 ####[facility] LABCLIA [id number] [place] [address] [place] Urea nitrogen [Mass/Vol] 33 mg/dL High 7-21 [facility] Comment on above: Order Comment: Speci men Type: BLOOD SPECIMENOrdering Facility: [facility] Address: [address] [place] [address] Performed By: #### 2 4321-2, 08724-8, 3040-3, 72110-6 ####[facility] LABCLIA [id number] [place] [address] [place] CBC W Auto Differential pane l (Bld)on 01-18-2024 Basophils (Bld) [#/Vol] 10*3/uL Normal <0.11 [facility] Comment on above: Order Comment: Speci men Type: BLOOD SPECIMENOrdering Facility: [facility] Address: [address] [place] [address] Performed By: #### 5 7021-8 ####[facility] LABCLIA [id number] [place] [address] [place] Basophils/100 WBC (Bld) 0.1 % Normal [facility] Comment on above: Order Comment: Speci men Type: BLOOD SPECIMENOrdering Facility: [facility] Address: [address] [place] [address] Performed By: #### 5 7021-8 ####[facility] LABCLIA [id number] [place] [address] [place] [facility] Differential cell count method Nom (Bld) Auto Normal [facility] Comment on above: Order Comment: Speci men Type: BLOOD SPECIMENOrdering Facility: [facility] Address: [address] [place] [address] Performed By: #### 5 7021-8 ####[facility] LABCLIA [id number] [place] [address] [place] Eosinophils (Bld) [#/Vol] 0.36 10*3/uL Normal <0.46 [facility] Comment on above: Order Comment: Speci men Type: BLOOD SPECIMENOrdering Facility: [facility] Address: [address] [place] [address] Performed By: #### 5 7021-8 ####[facility] LABCLIA [id number] [place] [address] [facility] Eosinophils/100 WBC (Bld) 4.7 % Normal [facility] Comment on above: Order Comment: Speci men Type: BLOOD SPECIMENOrdering Facility: [facility] Address: [address] [place] [address] Performed By: #### 5 7021-8 ####[facility] LABCLIA [id number] [place] [address] [place] Erythrocyte distribution width (RBC) [Ratio] 14.4 % Normal 11.5-15.0 [facility] Comment on above: Order Comment: Speci men Type: BLOOD SPECIMENOrdering Facility: [facility] Address: [address] [place] [address] Performed By: #### 5 7021-8 ####[facility] LABCLIA [id number] [place] [address] [place] Hematocrit (Bld) [Volume fraction] 38.9 % Normal 36.0-46.0 [facility] Comment on above: Order Comment: Speci men Type: BLOOD SPECIMENOrdering Facility: [facility] Address: [address] [place] [address] Performed By: #### 5 7021-8 ####[facility] LABCLIA [id number] [place] [address] [facility] [place] Hemoglobin (Bld) [Mass/Vol] 13.2 g/dL Normal 11.5-15.5 [facility] Comment on above: Order Comment: Speci men Type: BLOOD SPECIMENOrdering Facility: [facility] Address: [facility] [place] [address] Performed By: #### 5 7021-8 ####[facility] LABCLIA [id number] [place] [address] [place] Immature granulocytes (Bld) [#/Vol] 10*3/uL Normal <0.10 [facility] Comment on above: Order Comment: Speci men Type: BLOOD SPECIMENOrdering Facility: [facility] Address: [address] [place] [address] Performed By: #### 5 7021-8 ####[facility] LABCLIA [id number] [place] [address] [place] Immature granulocytes/100 WBC (Bld) 0.1 % Normal [facility] Comment on above: Order Comment: Speci men Type: BLOOD SPECIMENOrdering Facility: [facility] Address: [address] [place] [address] Performed By: #### 5 7021-8 ####[facility] LABCLIA [id number] [place] [address] [place] Lymphocytes (Bld) [#/Vol] 1.20 10*3/uL Normal 1.00-4.00 [facility] Comment on above: Order Comment: Speci men Type: BLOOD SPECIMENOrdering Facility: [facility] Address: [address] [place] [address] Performed By: #### 5 7021-8 ####[facility] LABCLIA [id number] [place] [address] [place] Lymphocytes/100 WBC (Bld) 15.6 % Normal [facility] Comment on above: Order Comment: Speci men Type: BLOOD SPECIMENOrdering Facility: [facility] Address: [address] [place] [address] Performed By: #### 5 7021-8 ####[facility] LABCLIA [id number] [place] [address] [facility] MCH (RBC) [Entitic mass] 33.2 pg Normal 26.0-34.0 [facility] Comment on above: Order Comment: Speci men Type: BLOOD SPECIMENOrdering Facility: [facility] Address: [address] [place] [address] Performed By: #### 5 7021-8 ####[facility] LABCLIA [id number] [place] [id number] [place] MCHC (RBC) [Mass/Vol] 33.9 g/dL Normal 30.5-36.0 [facility] Comment on above: Order Comment: Speci men Type: BLOOD SPECIMENOrdering Facility: [facility] Address: [address] [place] [address] Performed By: #### 5 7021-8 ####[facility] LABCLIA [id number] [address] [place] MCV (RBC) [Entitic vol] 98.0 fL Normal 80.0-100.0 [facility] Comment on above: Order Comment: Speci men Type: BLOOD SPECIMENOrdering Facility: [facility] Address: [address] [place] [address] Performed By: #### 5 7021-8 ####[facility] LABCLIA [id number] [address] [place] Monocytes (Bld) [#/Vol] 0.51 10*3/uL Normal <0.87 [facility] Comment on above: Order Comment: Speci men Type: BLOOD SPECIMENOrdering Facility: [facility] Address: [address] [place] [address] Performed By: #### 5 7021-8 ####[facility] LABCLIA [id number] [address] Monocytes/100 WBC (Bld) 6.6 % Normal [facility] Comment on above: Order Comment: Speci men Type: BLOOD SPECIMENOrdering Facility: [facility] Address: [address] [place] [address] Performed By: #### 5 7021-8 ####[facility] LABCLIA [id number] [place] [address] [place] Neutrophils (Bld) [#/Vol] 5.60 10*3/uL Normal 1.45-7.50 [facility] Comment on above: Order Comment: Speci men Type: BLOOD SPECIMENOrdering Facility: [facility] Address: [address] [place] [address] Performed By: #### 5 7021-8 ####[facility] LABCLIA [id number] [place] [address] [place] Neutrophils/100 WBC (Bld) 72.9 % Normal [facility] Comment on above: Order Comment: Speci men Type: BLOOD SPECIMENOrdering Facility: [facility] Address: [address] [place] [address] Performed By: #### 5 7021-8 ####[facility] LABCLIA [id number] [place] [address] [place] Nucleated RBC (Bld) [#/Vol] Normal [facility] Comment on above: Order Comment: Speci men Type: BLOOD SPECIMENOrdering Facility: [facility] Address: [address] [place] [address] Performed By: #### 5 7021-8 ####[facility] LABCLIA [id number] [place] [address] [place] Nucleated RBC/100 WBC (Bld) [Ratio] Normal [facility] Comment on above: Order Comment: Speci men Type: BLOOD SPECIMENOrdering Facility: [facility] Address: [address] [place] [address] Performed By: #### 5 7021-8 ####[facility] LABCLIA [id number] [place] [address] [place] Platelet mean volume (Bld) [Entitic vol] 8.8 fL Low 9.0-12.7 [facility] Comment on above: Order Comment: Speci men Type: BLOOD SPECIMENOrdering Facility: [facility] Address: [address] [place], [place] [address] Performed By: #### 5 7021-8 ####[facility] LABCLIA [id number] [place] [address] [place] Platelets (Bld) [#/Vol] 278 10*3/uL Normal 150-400 [facility] Comment on above: Order Comment: Speci men Type: BLOOD SPECIMENOrdering Facility: [facility] Address: [address] [place] [address] Performed By: #### 5 7021-8 ####[facility] LABCLIA [id number] [place] [address] [place] RBC (Bld) [#/Vol] 3.97 10*6/uL Normal 3.90-5.20 [facility] Comment on above: Order Comment: Speci men Type: BLOOD SPECIMENOrdering Facility: [facility] Address: [address] [place] [address] Performed By: #### 5 7021-8 ####[facility] LABCLIA [id number] [place] [address] [place] WBC (Bld) [#/Vol] 7.69 10*3/uL Normal 3.70-11.00 [facility] Comment on above: Order Comment: Speci men Type: BLOOD SPECIMENOrdering Facility: [facility] Address: [address] [place] [address] Performed By: #### 5 7021-8 ####[facility] LABCLIA [id number] [place] [address] [place] [address] ABD/PEL W IVCONon 024 CT ABD/PEL W IVCON Normal [facility] ED NOTEon 01-18-2024 ED NOTE HNO ID: [id number] Author: MARY ELLEN KNAPP, RN Service: Emergency Medicine Author Type: Registered Nurse Type: ED Notes Filed: 01/18/2024 14:14 Note Text: Patient assisted with dressing. Escorted to vehicle in wheelchair with assist X 1 into car. Normal [facility] ED NOTE Normal [facility] ED NOTE HNO ID: [id number] Author: MARY ELLEN KNAPP, RN Service: Emergency Medicine Author Type: Registered Nurse Type: ED Notes Filed: 01/18/2024 12:43 Note Text: NC removed. Patient maintaining saturations above 97% on RA Normal [facility] ED NOTE Normal [facility] ED NOTE Normal [facility] ED PROV NOTEon 01-18-2024 ED PROV NOTE Normal [facility] FLUABV+SARS-CoV-2+RSV Pnl Re sp HAYDEN+probeon 01-18-2024 FLUABV+SARS-CoV-2+RSV Pnl Resp HAYDEN+probe Normal [facility] Comment on above: Performed By: #### 9 5941-1 ####[facility] LABCLIA [id number] [place] [address] [place] Hepatic function 2000 panelo n 01-18-2024 Albumin [Mass/Vol] 3.8 g/dL Low 3.9-4.9 [facility] Comment on above: Order Comment: Speci men Type: BLOOD SPECIMENOrdering Facility: [facility] Address: [address] [place] [address] Performed By: #### 2 4321-2, 48599-5, 3039-3, ####[facility] LABCLIA [id number] [place] [address] [place] ALP [Catalytic activity/Vol] 96 U/L Normal 34-123 [facility] Comment on above: Order Comment: Speci men Type: BLOOD SPECIMENOrdering Facility: [facility] Address: [address] [place] [address] Performed By: #### 2 4321-2, 32232-3, 3039-3, ####[facility] LABCLIA [id number] [place] [address] [place] ALT [Catalytic activity/Vol] 30 U/L Normal 7-38 [facility] Comment on above: Order Comment: Speci men Type: BLOOD SPECIMENOrdering Facility: [facility] Address: [address] [place], [place] [address], [place] [address] Performed By: #### 2 4321-2, 68119-8, 3040-3, 39428-3 ####[facility] LABCLIA [id number] [place] [address] [place] [Catalytic activity/Vol] 25 U/L Normal 13-35 [facility] Comment on above: Order Comment: Speci men Type: BLOOD SPECIMENOrdering Facility: [facility] Address: [address] [place] [address] Performed By: #### 2 4321-2, 95607-4, 3040-3, 71784-1 ####[facility] LABCLIA [id number] [place] [address] [place] Bilirubin [Mass/Vol] 0.3 mg/dL Normal 0.2-1.3 [facility] Comment on above: Order Comment: Speci men Type: BLOOD SPECIMENOrdering Facility: [facility] Address: [address] [place] [address] Performed By: #### 2 4321-2, 40421-2, 3040-3, 74301-5 ####[facility] LABCLIA [id number] [place] [address] [place] Bilirubin.conjugated [Mass/Vol] 0.0 mg/dL Normal <0.2 [facility] Comment on above: Order Comment: Speci men Type: BLOOD SPECIMENOrdering Facility: [facility] Address: [address] [place] [address] Performed By: #### 2 4321-2, 87193-6, 3040-3, 59990-1 ####[facility] LABCLIA [id number] [place] [address] [place] Protein [Mass/Vol] 7.0 g/dL Normal 6.3-8.0 [facility] Comment on above: Order Comment: Speci men Type: BLOOD SPECIMENOrdering Facility: [facility] Address: [address] [place] [address] Performed By: #### 2 4321-2, 07513-9, 3040-3, 34521-3 ####[facility] LABCLIA [id number] [place] [address] [place] Lactate (Bld) [Moles/Vol]on 01-18-2024 Lactate [Moles/Vol] 1.1 mmol/L Normal 0.5-2.2 [facility] Comment on above: Order Comment: Speci men Type: BLOOD SPECIMENOrdering Facility: [facility] Address: [address] [place] [address] Performed By: #### 3 2693-4 ####[facility] LABCLIA [id number] [place] [id number] [place] Lipase SerPl-cCncon 01-18-20 24 Lipase [Catalytic activity/Vol] 15 U/L Low 16-61 [facility] Comment on above: Order Comment: Speci men Type: BLOOD SPECIMENOrdering Facility: [facility] Address: [address] [place] [address] Performed By: #### 2 4321-2, 38098-6, 3040-3, 21046-9 ####[facility] LABCLIA [id number] [place] [address] [place] Magnesium SerPl-mCncon 01-17 Magnesium [Mass/Vol] 2.1 mg/dL Normal 1.7-2.3 [facility] Comment on above: Order Comment: Speci men Type: BLOOD SPECIMENOrdering Facility: [facility] Address: [address] [place] [address] Performed By: #### 2 4321-2, 11824-5, 3040-3, 35691-5 ####[facility] BATH LABCLIA [id number] [place] [address] [place] CNPNon 01-10-2024 CNPN Normal [facility] CASE MANAGEMon 01-01-2024 CASE MANAGEM HNO ID: [id number] Author: ASTRID MUNSON RN Service: ? Author Type: Registered Nurse Type: Care Mgt Progress Note Filed: 01/01/2024 16:23 Note Text: CARE MANAGEMENT DISCHARGE NOTE SERVICE DATE: January 01, 2024 SERVICE TIME: 4:21 PM Admission Date: 12/25/2023 LOS: 0 days Discharge Arrangement Discharge Arrangement: Fdc Facility Was an expedited discharge program used?: No [facility] Caregiver Assessment Caregiver is ready, willing and able to meet the patient's needs as recommended by the inter-professional team: Other: See Comment (SNF) Transportation Arrangements Transportation Arrangements: Ambulance Transportation Agency and Phone #:: [facility] [phone] Date of Trip: 01/01/24 Time of Trip: 1700 Type of Service: BLS Non-emergency Is Patient Medicaid Pending?: No Was transportation financial coverage discussed with family?: Spouse Manager Beverage Location[place] [facility] Management Responsibility: None Handoff Communication: Handoff to: Primary Care Physician Primary Care Physician Name/Phone: Dr. Festus Griems- [phone] Additional Information: Discharge order written for today. [facility] ambulance transport set up for a 5:00 machine operator picker. Spoke with the patients Orestes regarding the patients discharge to [facility] today with a 5:00 machine operator picker time scheduled. Notified the RN and ENAMEL BUFFER of the machine operator picker time. Notified the [facility] of the patients discharge today and machine operator picker time. Discharge instructions sent to [facility] via [employer]. SIGNATURE: Astrid Munson RN PATIENT NAME: Ann Marie Hill DATE: January 01, 2024 TIME: 4:21 PM CONTACT #: [phone] [facility] CASE MANAGEM HNO ID: [id number] Author: ASTRID MUNSON RN Service: ? Author Type: Registered Nurse Type: Care Mgt Progress Note Filed: 01/01/2024 15:31 Note Text: CARE MANAGEMENT PROGRESS NOTE SERVICE DATE: 01/01/2024 SERVICE TIME: 9:30 am LOS: 0 days Needs Prior to Discharge: Precertification Received a VM message from Carla with [facility] that the precert is still pending. CM department will continue to follow for DC needs. 3:30 pm- Took call from [facility] she has precert for the patient. Notified Dr. Cook. SIGNATURE: Astrid Munson RN PATIENT NAME: Ann Marie Hill DATE: January 01, 2024 TIME: 12:23 PM PAGER/CONTACT #: [phone] [facility] HNO ID: [id number] Author: AKI COOK MD Service: Hospital Medicine [...] DURING HOSPITALIZATION: Treatment Team: Primary Service: , [facility] Consulting: Aramis Nascimento MD Orders Placed This Encounter PHYSICIAN CONSULT PATIENT CONDITION AT DISCHARGE: Stable DISCHARGE DISPOSITION: Fdc Facility GENERAL: Alert, no distress, cooperative SKIN: [...] Department Center 02/20/2024 1:00 PM Helio Goff APRN.YAM CURER GYURWP [place] ALLERGIES Allergen Reactions Yuli [...] Health Literacy Identified I have performed the bffj-nj-nhxj and relevant services for a total of < 30 minutes. Plan of care discussed with Provider, RN, Patient SIGNATURE: Aki Cook MD DATE: January 10, 2024 TIME: 4:39 PM [facility] NUTRITIONon 01-01-2024 NUTRITION HNO ID: [id number] Author: SHASHI GARAY RD Service: Nutrition Therapy [...] DATE: January 01, 2024 TIME: 10:21 AM [facility] CASE MANAGEMon 12-31-2023 CASE MANAGEM HNO ID: [id number] Author: MERARY OLSEN LISW Service: ? Author Type: Assistant Project Manager Type: Care Mgt Progress Note Filed: 12/31/2023 11:41 Note Text: CARE MANAGEMENT PROGRESS NOTE SERVICE DATE: 12/31/2023 SERVICE TIME: 11:40 AM LOS: 0 days Needs Prior to Discharge: To Be Determined;Other: See Comment;Discharge Transportation;Insura nce Authorization (medical clearance) Still awaiting auth from [facility]. PASRR completed. Unfinished envelope on chart. SIGNATURE: Merary Olsen MECHANICAL ENERGY ENGINEER, TIP INSERTER PATIENT NAME: Ann Marie Hill DATE: December 31, 2023 TIME: 11:40 AM PAGER/CONTACT #: [phone] [facility] Basic metabolic 2000 panelon 12-30-2023 Anion gap [Moles/Vol] 11 mmol/L Normal 9-18 [facility] Comment on above: Order Comment: Speci men Type: BLOOD SPECIMENOrdering Facility: [facility] Address: [address] [place] [address] Performed By: #### 2 4321-2, ####[facility]ORATORYCLIA [id number] [place] [address] [place] Calcium [Mass/Vol] 8.9 mg/dL Normal 8.5-10.2 [facility] Comment on above: Order Comment: Speci men Type: BLOOD SPECIMENOrdering Facility: [facility] Address: [address] [place] [address] Performed By: #### 2 4321-2, ####[facility] LABORATORYCLIA [id number] [place] [address] [place] Chloride [Moles/Vol] 104 mmol/L Normal 97-105 [facility] Comment on above: Order Comment: Speci men Type: BLOOD SPECIMENOrdering Facility: [facility] Address: [address] [place] [address] Performed By: #### 2 4320-2, ####[facility] LABORATORYCLIA [id number] [place] [address] [place] CO2 [Moles/Vol] 23 mmol/L Normal 22-30 [facility] Comment on above: Order Comment: Speci men Type: BLOOD SPECIMENOrdering Facility: [facility] Address: [address] [address] Performed By: #### 2 4320-2, ####[facility] LABORATORYCLIA [id number] [place] [id number] [place] Creatinine [Mass/Vol] 0.86 mg/dL Normal 0.58-0.96 [facility] Comment on above: Order Comment: Speci men Type: BLOOD SPECIMENOrdering Facility: [facility] Address: [facility] [place] [address] Performed By: #### 2 4320-2, ####[facility] LABORATORYCLIA [id number] [place] [address] [facility] [place] Creatinine and Glomerular filtration rate.predicted panel (S/P/Bld) 68 mL/min/1.73m??? Normal >=60 [facility] Comment on above: Order Comment: Kristin paige Type: BLOOD SPECIMENOrdering Facility: [facility] Address: [address] [place] [address] Result Comment: Felicia mated Glomerular Filtration Rate [...] actual GFR. Performed By: #### 2 4321-2, ####[facility]ATORYCLIA [id number] [place] [id number] [place] Glucose [Mass/Vol] 112 mg/dL High 74-99 [facility] Comment on above: Order Comment: Kristin paige Type: BLOOD SPECIMENOrdering Facility: [facility] Address: [address] [place], [place] [address] [address] Result Comment: The [place] Diabetes Association (ADA) provides guidance for cutoff [...] Standards of Medical Care in Diabetes 2016, [place] [employer]. Diabetes Care. 2016.39(Suppl 1). Performed By: #### 2 4321-2, ####[facility]ORATORYCLIA [id number] [place] [id number] [place] Potassium [Moles/Vol] 4.7 mmol/L Normal 3.7-5.1 [facility] Comment on above: Order Comment: Kristin paige Type: BLOOD SPECIMENOrdering Facility: [facility] Address: [address], [place] [address] Performed By: #### 2 4321-2, ####[facility] LABORATORYCLIA [id number] [place] [address] [place] Sodium [Moles/Vol] 138 mmol/L Normal 136-144 [facility] Comment on above: Order Comment: Speci men Type: BLOOD SPECIMENOrdering Facility: [facility] Address: [address] [place] [address] Performed By: #### 2 4321-2, ####[facility] LABORATORYCLIA [id number] [place] [address] [place] Urea nitrogen [Mass/Vol] 27 mg/dL High 7-21 [facility] Comment on above: Order Comment: Speci men Type: BLOOD SPECIMENOrdering Facility: [facility] Address: [address] [place] [address] Performed By: #### 2 4321-2, ####[facility] LABORATORYCLIA [id number] [place] [address] [place] CBC panel Auto (Bld)on 12-29 Erythrocyte distribution width (RBC) [Ratio] 13.6 % Normal 11.5-15.0 [facility] Comment on above: Order Comment: Speci men Type: BLOOD SPECIMEN [facility] Address: [address] [place] [address] Performed By: #### 5 8410-2 #### [facility] CLIA [id number] [address] [place] Hematocrit (Bld) [Volume fraction] 34.3 % Low 36.0-46.0 [facility] Comment on above: Order Comment: Speci men Type: BLOOD SPECIMEN [facility] Address: [address] [place] [address] Performed By: #### 5 8410-2 #### [facility] CLIA [id number] [address] [place] Hemoglobin (Bld) [Mass/Vol] 11.2 g/dL Low 11.5-15.5 [facility] Comment on above: Order Comment: Speci men Type: BLOOD SPECIMEN [facility] Address: [address] [place] [address] Performed By: #### 5 8410-2 #### [facility] CLIA [id number] [address] MCH (RBC) [Entitic mass] 30.9 pg Normal 26.0-34.0 [facility] Comment on above: Order Comment: Speci men Type: BLOOD SPECIMEN [facility] Address: [address] [place] [address] Performed By: #### 5 8410-2 #### [facility] CLIA [id number] [address] MCHC (RBC) [Mass/Vol] 32.7 g/dL Normal 30.5-36.0 [facility] Comment on above: Order Comment: Speci men Type: BLOOD SPECIMEN [facility] Address: [address] [place] [address] Performed By: #### 5 8410-2 #### [facility] CLIA [id number] [address] MCV (RBC) [Entitic vol] 94.5 fL Normal 80.0-100.0 [facility] Comment on above: Order Comment: Speci men Type: BLOOD SPECIMEN [facility] Address: [address] [place] [address] Performed By: #### 5 8410-2 #### [facility] CLIA [id number] [address] Nucleated RBC (Bld) [#/Vol] 10*3/uL Normal <0.01 [facility] Comment on above: Order Comment: Speci men Type: BLOOD SPECIMEN [facility] Address: [address] [place] [address] Performed By: #### 5 8410-2 #### [facility] CLIA [id number] [address] Platelet mean volume (Bld) [Entitic vol] 9.0 fL Normal 9.0-12.7 [facility] Comment on above: Order Comment: Speci men Type: BLOOD SPECIMEN [facility] Address: [address] [place] [address] Performed By: #### 5 8410-2 #### [facility] CLIA [id number] [address] [place] Platelets (Bld) [#/Vol] 305 10*3/uL Normal 150-400 [facility] Comment on above: Order Comment: Speci men Type: BLOOD SPECIMEN [facility] Address: [address] [place] [address] Performed By: #### 5 8410-2 #### [facility] CLIA [id number] 1000 [place] [address] [place] RBC (Bld) [#/Vol] 3.63 10*6/uL Low 3.90-5.20 [facility] Comment on above: Order Comment: Speci men Type: BLOOD SPECIMEN [facility] Address: [address] [place] [address] Performed By: #### 5 8410-2 #### [facility] CLIA [id number] [address] [place] WBC (Bld) [#/Vol] 9.09 10*3/uL Normal 3.70-11.00 [facility] Comment on above: Order Comment: Speci men Type: BLOOD SPECIMEN [facility] Address: [address] [place] [address] Performed By: #### 5 8410-2 #### [facility] CLIA [id number] [address] [place] Magnesium SerPl-mCncon 12-29 Magnesium [Mass/Vol] 2.3 mg/dL Normal 1.7-2.3 [facility] Comment on above: Order Comment: Speci men Type: BLOOD SPECIMENOrdering Facility: [facility] Address: [address] [place] [address] Performed By: #### 2 4321-2, 37442-1 ####[facility] LABORATORYCLIA [id number] [place] [address] OF [facility] THERAPY NTon 12-30-2023 THERAPY NT HNO ID: [id number] Author: BERNARDO TOLEDO PT Service: Physical Therapy Author Type: Physical Therapist Type: Therapy (PT/OT/Speech/Resp) Filed: 12/30/2023 15:47 Note Text: Summary: PT treatment Physical Therapy Treatment Summary SERVICE DATE: 12/30/2023 SERVICE TIME: 1450 to 1533 ROOM: [place] [address] PT 6 Clicks Score: 16 Total Joint [...] HOME LIVING Patient Lives With: Facility Care ([facility] memory care unit) Assistance Available: 24-Hour Entry [...] DIAGNOSIS Reduced mobility-other TREATMENT INTERVENTIONS Therapeutic Exercise (18777), Therapeutic Activity (06517), Gait Training (16684) Timed Code Treatment (minutes): 38 Skilled Treatment [...] Transfers, Exerc (more content not included)... Normal [facility] Basic metabolic 2000 panelon 12-29-2023 Anion gap [Moles/Vol] 10 mmol/L Normal -18 [facility] Comment on above: Order Comment: Speci men Type: BLOOD SPECIMEN [facility] Address: [address] [place] [address] Performed By: #### 1 9, 82590-5 #### [facility] CLIA [id number] [address] [place] [address] [place] Calcium [Mass/Vol] 9.0 mg/dL Normal 8.5-10.2 [facility] Comment on above: Order Comment: Speci men Type: BLOOD SPECIMEN [facility] Address: [address] [place] [address] Performed By: #### 1 9123-06, 57283-9 #### [facility] CLIA [id number] [address] [place] [address] [place] Chloride [Moles/Vol] 104 mmol/L Normal 97-105 [facility] Comment on above: Order Comment: Speci men Type: BLOOD SPECIMEN [facility] Address: [address] [place] [address] Performed By: #### 1 239, 70103-2 #### [facility] CLIA [id number] [address] [place] [address] [place] CO2 [Moles/Vol] 25 mmol/L Normal 22-30 [facility] Comment on above: Order Comment: Speci men Type: BLOOD SPECIMEN [facility] Address: [address] [place] [address] Performed By: #### 1 9123-06, 96313-9 #### [facility] CLIA [id number] [address] [place] [address] [place] [facility] Creatinine [Mass/Vol] 0.79 mg/dL Normal 0.58-0.96 [facility] Comment on above: Order Comment: Kristin paige Type: BLOOD SPECIMEN [facility] Address: [address] [place] [address] Performed By: #### 1 9123-9, 81393-2 #### [facility] CLIA [id number] [address] Creatinine and Glomerular filtration rate.predicted panel (S/P/Bld) 75 mL/min/1.73m??? Normal >=60 [facility] Comment on above: Order Comment: Kristin paige Type: BLOOD SPECIMEN [facility] Address: [address] [place] [address] Result Comment: Felicia mated Glomerular Filtration Rate [...] actual GFR. Performed By: #### 1 9123-9, 87617-1 #### [facility] CLIA [id number] [address] STATES OF [facility] Glucose [Mass/Vol] 109 mg/dL High 74-99 [facility] Comment on above: Order Comment: Kristin paige Type: BLOOD SPECIMEN [facility] Address: [address] [place] [address] Result Comment: The [place] Diabetes Association (ADA) provides guidance for cutoff [...] Standards of Medical Care in Diabetes 2016, [place] [employer]. Diabetes Care. 2016.39(Suppl 1). Performed By: #### 1 9123-9, 63723-0 #### [facility] CLIA [id number] [address] STATES OF [facility] Potassium [Moles/Vol] 4.1 mmol/L Normal 3.7-5.1 [facility] Comment on above: Order Comment: Kristin paige Type: BLOOD SPECIMEN [facility] Address: [address] [place] [address] Performed By: #### 1 9123-9, 85336-9 #### [facility] CLIA [id number] [address] Sodium [Moles/Vol] 139 mmol/L Normal 136-144 [facility] Comment on above: Order Comment: Kristin paige Type: BLOOD SPECIMEN [facility] Address: [address] [place] [address] Performed By: #### 1 9123-9, 47847-8 #### [facility] CLIA [id number] [address] Urea nitrogen [Mass/Vol] 25 mg/dL High 7- [facility] Comment on above: Order Comment: Kristin paige Type: BLOOD SPECIMEN [facility] Address: [address] [place] [address] Performed By: #### 1 9123-9, 34665-0 #### [facility] CLIA [id number] [address] [place] CASE MANAGEMon 12-29-2023 CASE MANAGEM HNO ID: [id number] Author: ASTRID MUNSON RN Service: ? Author Type: Registered Nurse Type: Care Mgt Progress Note Filed: 12/29/2023 09:25 Note Text: CARE MANAGEMENT PROGRESS NOTE SERVICE DATE: 12/29/2023 SERVICE TIME: 9:07 AM LOS: 0 days Needs Prior to Discharge: Facility or Agency Choices;[facility]. Updated the patients daughter Christos, Christos stated she will updated her dad and notify CM of their choice. CM department will continue to follow for DC needs. 9:24 am- Spoke with Christos, [facility]. [facility]. SIGNATURE: Astrid Munson RN PATIENT NAME: Ann Marie Hill DATE: December 29, 2023 TIME: 9:07 AM PAGER/CONTACT #: [phone] Normal [facility] CBC panel Auto (Bld)on 12-28 Erythrocyte distribution width (RBC) [Ratio] 13.5 % Normal 11.5-15.0 [facility] Comment on above: Order Comment: Speci men Type: BLOOD SPECIMENOrdering Facility: [facility] Address: [address] [place] [address] Performed By: #### 5 8410-2 ####[facility]ORATORYCLIA [id number] [address] [place] Hematocrit (Bld) [Volume fraction] 34.5 % Low 36.0-46.0 [facility] Comment on above: Order Comment: Speci men Type: BLOOD SPECIMENOrdering Facility: [facility] Address: [address] [place] [address] Performed By: #### 5 8410-2 ####[facility] LABORATORYCLIA [id number] [place] [address] [place] Hemoglobin (Bld) [Mass/Vol] 11.7 g/dL Normal 11.5-15.5 [facility] Comment on above: Order Comment: Speci men Type: BLOOD SPECIMENOrdering Facility: [facility] Address: [address] [place] [address] Performed By: #### 5 8410-2 ####[facility] LABORATORYCLIA [id number] [address] STATES [facility] MCH (RBC) [Entitic mass] 32.1 pg Normal 26.0-34.0 [facility] Comment on above: Order Comment: Speci men Type: BLOOD SPECIMENOrdering Facility: [facility] Address: [address] [place] [address] Performed By: #### 5 8410-2 ####[facility] LABORATORYCLIA [id number] [address] MCHC (RBC) [Mass/Vol] 33.9 g/dL Normal 30.5-36.0 [facility] Comment on above: Order Comment: Speci men Type: BLOOD SPECIMENOrdering Facility: [facility] Address: [address] [place] [address] Performed By: #### 5 8410-2 ####[facility] LABORATORYCLIA [id number] [address] [place] MCV (RBC) [Entitic vol] 94.8 fL Normal 80.0-100.0 [facility] Comment on above: Order Comment: Speci men Type: BLOOD SPECIMENOrdering Facility: [facility] Address: [address] [place] [address] Performed By: #### 5 8410-2 ####[facility] LABORATORYCLIA [id number] [address] Nucleated RBC (Bld) [#/Vol] 10*3/uL Normal <0.01 [facility] Comment on above: Order Comment: Speci men Type: BLOOD SPECIMENOrdering Facility: [facility] Address: [address] [place] [address] Performed By: #### 5 8410-2 ####[facility] LABORATORYCLIA [id number] [address] [place] Platelet mean volume (Bld) [Entitic vol] 9.0 fL Normal 9.0-12.7 [facility] Comment on above: Order Comment: Speci men Type: BLOOD SPECIMENOrdering Facility: [facility] Address: [address] [place] [address] Performed By: #### 5 8410-2 ####[facility] LABORATORYCLIA [id number] [address] [place] Platelets (Bld) [#/Vol] 288 10*3/uL Normal 150-400 [facility] Comment on above: Order Comment: Speci men Type: BLOOD SPECIMENOrdering Facility: [facility] Address: [address] [place] [address] Performed By: #### 5 8410-2 ####[facility] LABORATORYCLIA [id number] [address] STATES OF [facility] RBC (Bld) [#/Vol] 3.64 10*6/uL Low 3.90-5.20 [facility] Comment on above: Order Comment: Speci men Type: BLOOD SPECIMENOrdering Facility: [facility] Address: [facility] [place] [address] Performed By: #### 5 8410-2 ####[facility] LABORATORYCLIA [id number] [address] STATES OF [facility] WBC (Bld) [#/Vol] 7.97 10*3/uL Normal 3.70-11.00 [facility] Comment on above: Order Comment: Speci men Type: BLOOD SPECIMENOrdering Facility: [facility] Address: [address] [place] [address] Performed By: #### 5 8410-2 ####[facility] LABORATORYCLIA [id number] [place] [address] [place] Magnesium SerPl-mCncon 12-28 Magnesium [Mass/Vol] 2.3 mg/dL Normal 1.7-2.3 [facility] Comment on above: Order Comment: Speci men Type: BLOOD SPECIMEN [facility] Address: [facility] [place] [address] Performed By: #### 1 9123-9, 45070-6 #### [facility] CLIA [id number] [address] [place] [address] [place] Basic metabolic 2000 panelon 12-28-2023 Anion gap [Moles/Vol] 10 mmol/L Normal 9-18 [facility] Comment on above: Order Comment: Speci men Type: BLOOD SPECIMENOrdering Facility: [facility] Address: [facility] [place] [address] Performed By: #### 1 9123-9, 55830-0 ####[facility]ORATORYCLIA [id number] [place] [address] [place] Calcium [Mass/Vol] 9.3 mg/dL Normal 8.5-10.2 [facility] Comment on above: Order Comment: Speci men Type: BLOOD SPECIMENOrdering Facility: [facility] Address: [address] [place] [address] Performed By: #### 1 9123-9, 00151-8 ####[facility] LABORATORYCLIA [id number] [place] [address] [place] Chloride [Moles/Vol] 102 mmol/L Normal 97-105 [facility] Comment on above: Order Comment: Speci men Type: BLOOD SPECIMENOrdering Facility: [facility] Address: [address] [place] [address] Performed By: #### 1 9123-9, 93241-8 ####[facility] LABORATORYCLIA [id number] [place] [address] [place] CO2 [Moles/Vol] 26 mmol/L Normal 22-30 [facility] Comment on above: Order Comment: Speci men Type: BLOOD SPECIMENOrdering Facility: [facility] Address: [address] [place] [address] Performed By: #### 1 9123-9, 13899-3 ####MORALES LABORATORYCLIA [id number] [place] [address] [place] Creatinine [Mass/Vol] 0.77 mg/dL Normal 0.58-0.96 [facility] Comment on above: Order Comment: Speci men Type: BLOOD SPECIMENOrdering Facility: [facility] Address: [address] [place] [address] Performed By: #### 1 9123-9, 37095-5 ####MORALES LABORATORYCLIA [id number] [place] [address] [facility] [place] Creatinine and Glomerular filtration rate.predicted panel (S/P/Bld) 77 mL/min/1.73m??? Normal >=60 [facility] Comment on above: Order Comment: Speci men Type: BLOOD SPECIMENOrdering Facility: [facility] Address: [address] [place] [address] Result Comment: Felicia mated Glomerular Filtration Rate [...] actual GFR. Performed By: #### 1 9123-9, 00747-8 ####[facility]IL[facility] LABORATORYCLIA [id number] [place] [id number] [place] Glucose [Mass/Vol] 120 mg/dL High 74-99 [facility] Comment on above: Order Comment: Kristin paige Type: BLOOD SPECIMENOrdering Facility: [facility] Address: [address] [place], [place] [address] Result Comment: The [place] Diabetes Association (ADA) provides guidance for cutoff [...] Standards of Medical Care in Diabetes 2016, [place] [employer]. Diabetes Care. 2016.39(Suppl 1). Performed By: #### 1 9123-9, 04812-0 ####GILMORE LABORATORYCLIA [id number] [place] [id number] [place] Potassium [Moles/Vol] 3.5 mmol/L Low 3.7-5.1 [facility] Comment on above: Order Comment: Kristin paige Type: BLOOD SPECIMENOrdering Facility: [facility] Address: [address] [place] [address] Performed By: #### 1 9123-9, 78973-5 ####GILMORE LABORATORYCLIA [id number] [place] [address] [place] Sodium [Moles/Vol] 138 mmol/L Normal 136-144 [facility] Comment on above: Order Comment: Speci men Type: BLOOD SPECIMENOrdering Facility: [facility] Address: [address] [place], [place] [address] Performed By: #### 1 9123-9, 76958-8 ####MORALES LABORATORYCLIA [id number] [address] Urea nitrogen [Mass/Vol] 20 mg/dL Normal 7-21 [facility] Comment on above: Order Comment: Speci men Type: BLOOD SPECIMENOrdering Facility: [facility] Address: [address] [place] [address] Performed By: #### 1 9123-9, 19662-8 ####MORALES LABORATORYCLIA [id number] [address] CASE MANAGEMon 12-28-2023 CASE MANAGEM HNO ID: [id number] Author: ASTRID MUNSON RN Service: ? Author Type: Registered Nurse Type: Care Mgt Progress Note Filed: 12/28/2023 14:56 Note Text: CARE MANAGEMENT PROGRESS NOTE SERVICE DATE: 12/28/2023 SERVICE TIME: 8:31 AM LOS: 0 days Needs Prior to Discharge: [facility] Received an email from the patients daughter Christos,she would like [facility] in [place]. Referral placed. CM department will continue to follow for DC needs. 11:51 am- No response from [facility]. Call placed to [facility] and left a message on the VM of admissions requesting a follow up on referral. 12:43 pm- Received 2 additional SNF choices from the patients daughter- [facility] [place] and [facility] in [place]. Referrals placed. 2:53 pm- Received an Email from the patients daughter Chritsos and also an email stating the patients Orestes spoke with [facility] and they need all the patients medical information. Noted to Christos that we have already sent all the patients information over to [facility]. Call placed to [facility] and spoke with Judi, Judi stated she would talk with Inez who is also in admission and have her call CM back or respond in [employer]. SIGNATURE: Astrid Munson RN PATIENT NAME: Ann Marie Hill DATE: December 28, 2023 TIME: 8:31 AM PAGER/CONTACT #: [phone] Normal [facility] CBC panel Auto (Bld)on 12-27 Erythrocyte distribution width (RBC) [Ratio] 13.4 % Normal 11.5-15.0 [facility] Comment on above: Order Comment: Speci men Type: BLOOD SPECIMENOrdering Facility: [facility] Address: [address] [place] [address] Performed By: #### 5 8410-2 ####MORALES LABORATORYCLIA [id number] [address] Hematocrit (Bld) [Volume fraction] 38.6 % Normal 36.0-46.0 [facility] Comment on above: Order Comment: Speci men Type: BLOOD SPECIMENOrdering Facility: [facility] Address: [address] [place] [address] Performed By: #### 5 8410-2 ####MORALES LABORATORYCLIA [id number] [address] [place] Hemoglobin (Bld) [Mass/Vol] 12.9 g/dL Normal 11.5-15.5 [facility] Comment on above: Order Comment: Speci men Type: BLOOD SPECIMENOrdering Facility: [facility] Address: [address] [place] [address] Performed By: #### 5 8410-2 ####MORALES LABORATORYCLIA [id number] [address] [place] MCH (RBC) [Entitic mass] 31.1 pg Normal 26.0-34.0 [facility] Comment on above: Order Comment: Speci men Type: BLOOD SPECIMENOrdering Facility: [facility] Address: [address] [place] [address] Performed By: #### 5 8410-2 ####MORALES LABORATORYCLIA [id number] [address] [place] MCHC (RBC) [Mass/Vol] 33.4 g/dL Normal 30.5-36.0 [facility] Comment on above: Order Comment: Speci men Type: BLOOD SPECIMENOrdering Facility: [facility] Address: [address] [place] [address] Performed By: #### 5 8410-2 ####MORALES LABORATORYCLIA [id number] [address] [place] MCV (RBC) [Entitic vol] 93.0 fL Normal 80.0-100.0 [facility] Comment on above: Order Comment: Speci men Type: BLOOD SPECIMENOrdering Facility: [facility] Address: [address] [place] [address] Performed By: #### 5 8410-2 ####MORALES LABORATORYCLIA [id number] [address] Nucleated RBC (Bld) [#/Vol] 10*3/uL Normal <0.01 [facility] Comment on above: Order Comment: Speci men Type: BLOOD SPECIMENOrdering Facility: [facility] Address: [address] [place] [address] Performed By: #### 5 8410-2 ####MORALES LABORATORYCLIA [id number] [address] [place] Platelet mean volume (Bld) [Entitic vol] 8.8 fL Low 9.0-12.7 [facility] Comment on above: Order Comment: Speci men Type: BLOOD SPECIMENOrdering Facility: [facility] Address: [address] [place] [address] Performed By: #### 5 8410-2 ####MORALES LABORATORYCLIA [id number] [address] Platelets (Bld) [#/Vol] 287 10*3/uL Normal 150-400 [facility] Comment on above: Order Comment: Speci men Type: BLOOD SPECIMENOrdering Facility: [facility] Address: [address] [place] [address] Performed By: #### 5 8410-2 ####MORALES LABORATORYCLIA [id number] [address] [place] RBC (Bld) [#/Vol] 4.15 10*6/uL Normal 3.90-5.20 [facility] Comment on above: Order Comment: Speci men Type: BLOOD SPECIMENOrdering Facility: [facility] Address: [address] [place] [address] Performed By: #### 5 8410-2 ####MORALES LABORATORYCLIA [id number] [address] [place] WBC (Bld) [#/Vol] 9.76 10*3/uL Normal 3.70-11.00 [facility] Comment on above: Order Comment: Speci men Type: BLOOD SPECIMENOrdering Facility: [facility] Address: [address] [place] [address] [place] [id number] Performed By: #### 5 8410-2 ####MORALES LABORATORYCLIA [id number] [address] [place] Magnesium SerPl-mCncon 12-27 Magnesium [Mass/Vol] 2.0 mg/dL Normal 1.7-2.3 [facility] Comment on above: Order Comment: Speci men Type: BLOOD SPECIMENOrdering Facility: [facility] Address: [address] [place], [place] [address] Performed By: #### 1 9123-9, 22834-6 ####MORALES LABORATORYCLIA [id number] [address] OF [facility] THERAPY NTon 12-28-2023 THERAPY NT HNO ID: [id number] Author: BRINDA PHILLIPS PTA Service: Physical Therapy Author Type: Business Services Officer Type: Therapy (PT/OT/Speech/Resp) Filed: 12/28/2023 16:16 Note Text: Attestation signed by Ousmane Darling, PT at 12/28/2023 5:34 PM I reviewed and agree with the documentation corresponding to this therapy visit. SIGNATURE: Ousmane Darling, PT DATE: December 28, 2023 TIME: 5:34 PM Physical Therapy Treatment Summary SERVICE DATE: 12/28/2023 SERVICE TIME: 1535 to 1606 ROOM: [id number] PT 6 Clicks Score: 15 Total Joint [...] HOME LIVING Patient Lives With: Facility Care ([facility] memory care unit) Assistance Available: 24-Hour PRIOR [...] Difficulty walking-musculoskelet al TREATMENT INTERVENTIONS Therapeutic Activity (04098), Gait Training (20257) Timed Code Treatment (minutes): 31 Skilled Treatment [...] SIGNATURE: Brinda Phillips, (more content not included)... [facility] HEALTH 12-27-2023 ALLIED HEALTH HNO ID: [id number] Author: SHERICE HAYES RT(R) Service: ? Author [...] PATIENT PRESENTS WITH AN IMPLANTABLE OR ATTACHED SENIOR NUCLEAR MEDICINE TECHNOLOGIST: No RADIOLOGY DEPARTMENT: Ultrasound PERIPHERAL IV DATA: Not applicable SIGNED BY: RT Carla(R) December 26, 2023 11:46 PM [facility] Bacteria Ur Culton 4 Bacteria identified Cx Nom (U) ORGANISM ID: 1 10,000 -<50,000 CFU/ml Streptococcus anginosus No susceptibility testing done. [facility] Comment on above: Performed By: #### 6 30-4 ####[facility] LABCLIA [id number] [facility] [place] [id number] [address] [place] Basic metabolic 2000 panelon 12-27-2023 Anion gap [Moles/Vol] 12 mmol/L Normal 9-18 [facility] Comment on above: Order Comment: Speci men Type: BLOOD SPECIMENOrdering Facility: [facility] Address: [address] [place] [address] Performed By: #### 2 4321-2 ####MORALES LABORATORYCLIA [id number] [place] [address] [place] Calcium [Mass/Vol] 9.2 mg/dL Normal 8.5-10.2 [facility] Comment on above: Order Comment: Speci men Type: BLOOD SPECIMENOrdering Facility: [facility] Address: [address] [place] [address] Performed By: #### 2 4321-2 ####MORALES LABORATORYCLIA [id number] [place] [address] [place] Chloride [Moles/Vol] 102 mmol/L Normal 97-105 [facility] Comment on above: Order Comment: Speci men Type: BLOOD SPECIMENOrdering Facility: [facility] Address: [address] [place] [address] Performed By: #### 2 4321-2 ####MORALES LABORATORYCLIA [id number] [place] [id number] [place] [facility] CO2 [Moles/Vol] 24 mmol/L Normal 22-30 [facility] Comment on above: Order Comment: Kristin paige Type: BLOOD SPECIMENOrdering Facility: [facility] Address: [address] [place] [address] Performed By: #### 2 4321-2 ####MORALES LABORATORYCLIA [id number] [address] Creatinine [Mass/Vol] 0.69 mg/dL Normal 0.58-0.96 [facility] Comment on above: Order Comment: Kristin paige Type: BLOOD SPECIMENOrdering Facility: [facility] Address: [address] [place] [address] Performed By: #### 2 4321-2 ####MORALES LABORATORYCLIA [id number] [address] Creatinine and Glomerular filtration rate.predicted panel (S/P/Bld) 87 mL/min/1.73m??? Normal >=60 [facility] Comment on above: Order Comment: Kristin paige Type: BLOOD SPECIMENOrdering Facility: [facility] Address: [address] [place] [address] Result Comment: Felicia mated Glomerular Filtration Rate [...] Performed By: #### 2 4321-2 ####MORALES LABORATORYCLIA [id number] [place] [id number] [place] [facility] Glucose [Mass/Vol] 131 mg/dL High 74-99 [facility] Comment on above: Order Comment: Kristin paige Type: BLOOD SPECIMENOrdering Facility: [facility] Address: [address] [place] [address] Result Comment: The [place] Diabetes Association (ADA) provides guidance for cutoff [...] Standards of Medical Care in Diabetes 2016, [place] [employer]. Diabetes Care. 2016.39(Suppl 1). Performed By: #### 2 4321-2 ####MORALES LABORATORYCLIA [id number] [place] [address] [place] Potassium [Moles/Vol] 3.6 mmol/L Low 3.7-5.1 [facility] Comment on above: Order Comment: Kristin paige Type: BLOOD SPECIMENOrdering Facility: [facility] Address: [address] [place] [address] Performed By: #### 2 4321-2 ####MORALES LABORATORYCLIA [id number] [place] [address] [place] Sodium [Moles/Vol] 138 mmol/L Normal 136-144 [facility] Comment on above: Order Comment: Kristin paige Type: BLOOD SPECIMENOrdering Facility: [facility] Address: [address] [place] [address] Performed By: #### 2 4321-2 ####MORALES LABORATORYCLIA [id number] [place] [address] [place] Urea nitrogen [Mass/Vol] 18 mg/dL Normal 7-21 [facility] Comment on above: Order Comment: Kristin paige Type: BLOOD SPECIMENOrdering Facility: [facility] Address: [address] [place] [address] Performed By: #### 2 4321-2 ####MORALES LABORATORYCLIA [id number] [place] [address] [place] CASE MANAGEMon 12-27-2023 CASE MANAGEM HNO ID: [id number] Author: ASTRID MUNSON RN Service: ? Author Type: Registered Nurse Type: Care Mgt Progress Note Filed: 12/27/2023 14:54 Note Text: CARE MANAGEMENT PROGRESS NOTE SERVICE DATE: 12/27/2023 SERVICE TIME: 11:09 AM LOS: 0 days Needs Prior to Discharge: Accepting Facility;Facility or Agency Choices;Precertificat ion;OT/PT Evaluation Sloan of Choice Given: Yes Level of Care Discussed: Fdc Facility Financial Disclosure Provided: Yes Provider List: Fdc Facility Provider list within the patient's requested geographic area shared with the patient/family: Yes within: 25 miles of zip code: [address] Quality and resource use metrics shared with [...] would like the patient to go to [facility]. Call placed to Morgan,he agreed with referral. Referral placed to [facility]. 2:52 pm- [facility] is unable to accept. Updated Morgan, he stated his sister Christos has the list and she will be making the SNF choices; but their dad will have the final say. Morgan stated he will update Christos and have her contact CM with her SNF choices. SIGNATURE: Astrid Munson RN PATIENT NAME: Ann Marie Hill DATE: December 27, 2023 TIME: 11:09 AM PAGER/CONTACT #: [phone] Normal [facility] CBC panel Auto (Bld)on 12-26 Erythrocyte distribution width (RBC) [Ratio] 13.6 % Normal 11.5-15.0 [facility] Comment on above: Order Comment: Speci men Type: BLOOD SPECIMENOrdering Facility: [facility] Address: [address] [place] [address] Performed By: #### 5 8410-2 ####MORALES LABORATORYCLIA [id number] [address] Hematocrit (Bld) [Volume fraction] 40.0 % Normal 36.0-46.0 [facility] Comment on above: Order Comment: Speci men Type: BLOOD SPECIMENOrdering Facility: [facility] Address: [address] [place] [address] Performed By: #### 5 8410-2 ####MORALES LABORATORYCLIA [id number] [address] OF [facility] Hemoglobin (Bld) [Mass/Vol] 13.4 g/dL Normal 11.5-15.5 [facility] Comment on above: Order Comment: Speci men Type: BLOOD SPECIMENOrdering Facility: [facility] Address: [address] [place] [address] Performed By: #### 5 8410-2 ####MORALES LABORATORYCLIA [id number] [address] MCH (RBC) [Entitic mass] 31.8 pg Normal 26.0-34.0 [facility] Comment on above: Order Comment: Speci men Type: BLOOD SPECIMENOrdering Facility: [facility] Address: [address] [place] [address] Performed By: #### 5 8410-2 ####MORALES LABORATORYCLIA [id number] [address] MCHC (RBC) [Mass/Vol] 33.5 g/dL Normal 30.5-36.0 [facility] Comment on above: Order Comment: Speci men Type: BLOOD SPECIMENOrdering Facility: [facility] Address: [address] [place] [address] Performed By: #### 5 8410-2 ####MORALES LABORATORYCLIA [id number] [address] MCV (RBC) [Entitic vol] 94.8 fL Normal 80.0-100.0 [facility] Comment on above: Order Comment: Speci men Type: BLOOD SPECIMENOrdering Facility: [facility] Address: [address] [place] [address] Performed By: #### 5 8410-2 ####MORALES LABORATORYCLIA [id number] [place] [id number] [place] Nucleated RBC (Bld) [#/Vol] 10*3/uL Normal <0.01 [facility] Comment on above: Order Comment: Speci men Type: BLOOD SPECIMENOrdering Facility: [facility] Address: [address] [place] [address] Performed By: #### 5 8410-2 ####MORALES LABORATORYCLIA [id number] [place] [address] [place] Platelet mean volume (Bld) [Entitic vol] 9.0 fL Normal 9.0-12.7 [facility] Comment on above: Order Comment: Speci men Type: BLOOD SPECIMENOrdering Facility: [facility] Address: [address] [place] [address] Performed By: #### 5 8410-2 ####MORALES LABORATORYCLIA [id number] [place] [address] [place] Platelets (Bld) [#/Vol] 288 10*3/uL Normal 150-400 [facility] Comment on above: Order Comment: Speci men Type: BLOOD SPECIMENOrdering Facility: [facility] Address: [address] [place] [address] Performed By: #### 5 8410-2 ####MORALES LABORATORYCLIA [id number] [place] [address] [place] RBC (Bld) [#/Vol] 4.22 10*6/uL Normal 3.90-5.20 [facility] Comment on above: Order Comment: Speci men Type: BLOOD SPECIMENOrdering Facility: [facility] Address: [address] [place] [address] Performed By: #### 5 8410-2 ####MORALES LABORATORYCLIA [id number] [address] [place] WBC (Bld) [#/Vol] 9.91 10*3/uL Normal 3.70-11.00 [facility] Comment on above: Order Comment: Speci men Type: BLOOD SPECIMENOrdering Facility: [facility] Address: [address] [place] [address] Performed By: #### 5 8410-2 ####MORALES LABORATORYCLIA [id number] [place] [id number] [place] CONSULTon 12-27-2023 CONSULT HNO ID: [id number] Author: LUDY MCKINNEY MD Service: Orthopaedic Surgery [...] 10-14 days for recheck as OP. Call [phone] for appt. 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 OIL FIELD WORKER will follow peripherally while in house for now. Thank you for allowing me to be involved in the car of the sweet patient. POC discussed with pt/family (sone AND daughter in room), RN [place] [address] I spent a total of 35 minutes on the date of the service which included preparing to see the patient, [id number] patient care, completing clinical documentation, performing a medically appropriate examination, counseling and educating the patient/family/caregi karin, and independently interpreting results (not separately reported). [facility] THERAPY NTon 12-27-2023 THERAPY NT HNO ID: [id number] Author: DANITA CARTER OT/Jojo Service: Occupational Therapy Author Type: Occupational Therapist Type: Therapy (PT/OT/Speech/Resp) Filed: 12/27/2023 15:30 Note Text: Summary: OT Evaluation Occupational Therapy Evaluation Summary SERVICE DATE: 12/27/2023 SERVICE TIME: 1420 to 1458 ROOM: [id number] OT 6 Clicks Score: 15 DISCHARGE RECOMMENDATIONS [...] HOME LIVING Patient Lives With: Facility Care ([facility] memory care unit) Assistance Available: 24-Hour PRIOR [...] Follow Commands: Minimum Memory Deficits: Short Term, Peanut Sheller, Recall of Recent Events, Recall of Precautions Executive Function Deficits: Insight to Deficits THERAPY DIAGNOSIS Reduced mobility-other, Decreased activities of daily living (ADL) TREATMENT INTERVENTIONS Evaluation, Self Penitentiary Management (74144) Timed Code Treatment (minutes): 23 Skilled Treatment Time (minutes): 38 TRAINING AND EDUCATION PROVIDED Bed Mobility, Benefits of In-Hospital Mobility, Cognitive Skills, Discharge Planning, Edema Management, Functional Mobility Involving ADLs, Insight into Deficits, Grooming Tasks, Orientation, Positioning, Precautions/Restricti ons, Role of Occupational Therapy, Safety/Judgment, Sitting Balance to Improve [place] with ADLs/Self-Care, Standing Balance to Improve [place] with ADLs/Self-Care, Transfer - Sit to Stand, [...] overall, especial (more content not included)... [facility] THERAPY NT HNO ID: [id number] Author: ELLEN BRYANT, PT, DPT Service: Physical Therapy Author Type: Physical Therapist Type: Therapy (PT/OT/Speech/Resp) Filed: 12/27/2023 11:23 Note Text: Summary: PT evaluation Physical Therapy Evaluation Summary SERVICE DATE: 12/27/2023 SERVICE TIME: 1024 to 1058 ROOM: [place] [address] PT 6 Clicks Score: 12 DISCHARGE RECOMMENDATIONS [...] replacement and is in a hospital in [facility] and they are looking to be placed [...] walking-musculoskelet al TREATMENT INTERVENTIONS Evaluation, Therapeutic Activity (71847) Timed Code Treatment (minutes): 19 Skilled Treatment [...] Sit to/from Stand (more content not included)... [facility] FEMALE PELV TRANSABD COMP LETEon 12-27-2023 [...] of free fluid or pathologic adnexal mass Return To Service Inspector: JEANETTE Transcribe Date/Time: Dec 27 2023 7:52A Dictated by : MYKEL LEDBETTER MD This examination was interpreted and the report reviewed and electronically signed by: MYKEL LEDBETTER MD on Dec 27 2023 7:55AM EST [id number] [facility] CASE MGT INIT Luis 2023 CASE MGT INIT STEFANO HNO ID: [id number] Author: ASTRID MUNSON RN Service: ? Author Type: Registered Nurse Type: Care Mgt Initial Assessment Filed: 12/26/2023 11:11 Note Text: CARE MANAGEMENT: ASSESSMENT AND DISCHARGE PLAN SERVICE DATE: December 26, 2023 SERVICE TIME: 11:07 AM PCP: Festus Grimes MD Primary Contact: Extended Emergency Contact Information Primary Emergency Contact: O[place]es [place] Mobile Relation: Spouse Secondary Emergency Contact: Stephany Carlos Mobile Relation: Son Admission Status: Observation Insurance Provider: [facility] MEDICARE PPO Discharge Planning requested by: Per Department Practice Potential Transition Plans To Be Determined Advance Directives Current Advance Directive: Health Care Power of Lower In Supervisor In Chart: Yes Up To Date and Valid: Yes Current Living Arrangements and Support Lives with: Alone Type of Residence: Assisted Living Facility Care Facility [facility]: [facility] Support: Children, Spouse/significant other How do you manage to accomplish the following: Independent: Ambulation;Going to the bathroom Needs Assistance: Bathe/Shower;Dress Dependent: Meals/Meal Prep;Medication Management;Transporta tion to appointments/communit y Current Services/Equipment Current Post-Acute Service(s): None Discharge Planning Patient Goal(s): Less pain Sloan of Choice Explained: Sloan of Choice Given: No Reason Not Given: [...] Dementia. Orestes states the patient is from [facility], States she ambulates independent without any devices. [facility] takes care of all her medications. Orestes stated he is currently rehabbing in a facility in [place]. Orestes states he is the POA, but we can speak with his son Morgan if needed. Ortho consult pending. PT/OT- Pending. CM department will continue to follow for DC needs. SIGNATURE: Astrid Munson RN PATIENT NAME: Ann Marie Hill DATE: December 26, 2023 TIME: 11:07 AM CONTACT #: [phone] [facility] CONSULTon 12-26-2023 CONSULT HNO ID: [id number] Author: ARAMIS NASCIMENTO MD Service: Gynecology Author [...] breech) admitted for arm fracture (fell at [facility] care facility). Patient herself denies vaginal discharge, [...] in b (more content not included)... [facility] HISTORY PHYSICALon 4 HISTORY PHYSICAL HNO ID: [id number] Author: ARVIN GOINS MD Service: Hospital Medicine [...] day., Disp: , Rfl: PhytoMulti 60s capsules (eZ Systems), Take 2 capsules daily, with meals., Disp: , Rfl: Glycine (Pure Encapsulations), Take 1 capsule 3 times daily in divided doses between meals. (1 [id number]), Disp: , Rfl: B-Complex Plus (Pure Encapsulations), Take 1 capsule by mouth daily with food., Disp: , Rfl: Glutathione (Plutus [employer]), Use 20 pumps daily (1000mg) divided doses [...] OmegaGenics EPA-DHA 2400 (High Concentrate EPA/DHA liquid) (eZ Systems), Take one teaspoon (5 ml) 1 times daily with food, Disp: , Rfl: UT Synergy ([employer]) antibacterial, Take 1 capsule by mouth twice daily., Disp: , Rfl: 0 Neuromag ( [employer] ) 90 ct, Take 3 capsules per [...] kg/m?. Physical Exam Exam conducted with a cloud infrastructure architect present. Cardiovascular: Rate and Rhythm: Normal rate. [...] MD DATE: 12/25/2023 TIME: 11:54 PM [facility] NURSING PROGon 12-26-2023 NURSING PROG HNO ID: [id number] Author: DAVIS HIDALGO, JADA Service: Nursing Author Type: Registered Nurse Type: Nursing Progress Note Filed: 12/26/2023 15:13 Note Text: Nursing Progress Note Vital Interchange Agent Assessment Note Patient Name: Ann Marie Hill Patient Location: [place] [id number] Patient Vitals for the past 4 [...] given scheduled tylenol for pain. virtual patient driver merchandiser order placed. NOM notified, pt to have sitter HS for sundowning most likely. Pt begins to sundown at 1500 per daughter at bedside. This note was completed by: Davis Hidalgo RN [facility] THERAPY NT 12-26-2023 THERAPY NT HNO ID: [id number] Author: DANITA CARTER OT/Jojo Service: Occupational Therapy Author Type: Occupational Therapist Type: Therapy (PT/OT/Speech/Resp) Filed: 12/26/2023 09:36 Note Text: Summary: OT Missed Visit OCCUPATIONAL THERAPY MISSED VISIT SERVICE DATE: 12/26/2023 SERVICE TIME: 934 ROOM: [place] [address] Patient not seen due to Incomplete Orders. Awaiting ortho consult, will reattempt once completed and orders updated. SIGNATURE: Danita Carter OT/Jojo PATIENT NAME: Ann Marie Hill DATE: December 26, 2023 TIME: 9:35 AM [facility] THERAPY NT HNO ID: [id number] Author: OUSMANE DARLING PT Service: Physical Therapy Author Type: Physical Therapist Type: Therapy (PT/OT/Speech/Resp) Filed: 12/26/2023 08:54 Note Text: Summary: missed visit PHYSICAL THERAPY MISSED VISIT SERVICE DATE: 12/26/2023 SERVICE TIME: 851 ROOM: [place] [address] Patient not seen due to Incomplete Orders. Awaiting ortho consult, will reattempt once completed and orders updated. SIGNATURE: Ousmane Darling PT PATIENT NAME: Ann Marie Hill DATE: December 26, 2023 TIME: 8:53 AM [facility] ALLIED HEALTHon 12-25-2023 ALLIED HEALTH Normal [facility] CBC W Auto Differential pane l (Bld)on 12-25-2023 Basophils (Bld) [#/Vol] 10*3/uL Normal <0.11 [facility] Comment on above: Order Comment: Speci men Type: BLOOD SPECIMENOrdering Facility: [facility] Address: [address] [place] [address] Performed By: #### 5 7021-8 ####[facility] LABCLIA [id number] [place] [address] [place] Basophils/100 WBC (Bld) 0.1 % Normal [facility] Comment on above: Order Comment: Speci men Type: BLOOD SPECIMENOrdering Facility: [facility] Address: [facility] [place] [address] Performed By: #### 5 7021-8 ####[facility] LABCLIA [id number] [place] [address] [place] Differential cell count method Nom (Bld) Auto Normal [facility] Comment on above: Order Comment: Speci men Type: BLOOD SPECIMENOrdering Facility: [facility] Address: [address] [place] [address] Performed By: #### 5 7021-8 ####[facility] LABCLIA [id number] [place] [address] [place] Eosinophils (Bld) [#/Vol] 0.03 10*3/uL Normal <0.46 [facility] Comment on above: Order Comment: Speci men Type: BLOOD SPECIMENOrdering Facility: [facility] Address: [address] [place] [address] Performed By: #### 5 7021-8 ####[facility] LABCLIA [id number] [place] [address] [facility] Eosinophils/100 WBC (Bld) 0.3 % Normal [facility] Comment on above: Order Comment: Speci men Type: BLOOD SPECIMENOrdering Facility: [facility] Address: [address] [place] [address] Performed By: #### 5 7021-8 ####[facility] LABCLIA [id number] [place] [address] [facility] [place] Erythrocyte distribution width (RBC) [Ratio] 13.5 % Normal 11.5-15.0 [facility] Comment on above: Order Comment: Speci men Type: BLOOD SPECIMENOrdering Facility: [facility] Address: [address] [place] [address] Performed By: #### 5 7021-8 ####[facility] LABCLIA [id number] [place] [address] [place] Hematocrit (Bld) [Volume fraction] 41.0 % Normal 36.0-46.0 [facility] Comment on above: Order Comment: Speci men Type: BLOOD SPECIMENOrdering Facility: [facility] Address: [address] [place] [address] Performed By: #### 5 7021-8 ####[facility] LABCLIA [id number] [place] [address] [place] Hemoglobin (Bld) [Mass/Vol] 13.7 g/dL Normal 11.5-15.5 [facility] Comment on above: Order Comment: Speci men Type: BLOOD SPECIMENOrdering Facility: [facility] Address: [address] [place] [address] Performed By: #### 5 7021-8 ####[facility] LABCLIA [id number] [place] [address] [place] Immature granulocytes (Bld) [#/Vol] 10*3/uL Normal <0.10 [facility] Comment on above: Order Comment: Speci men Type: BLOOD SPECIMENOrdering Facility: [facility] Address: [address] [place] [address] Performed By: #### 5 7021-8 ####[facility] LABCLIA [id number] [place] [address] [facility] [place] Immature granulocytes/100 WBC (Bld) 0.2 % Normal [facility] Comment on above: Order Comment: Speci men Type: BLOOD SPECIMENOrdering Facility: [facility] Address: [address] [place] [address] Performed By: #### 5 7021-8 ####[facility] LABCLIA [id number] [place] [address] [place] Lymphocytes (Bld) [#/Vol] 1.85 10*3/uL Normal 1.00-4.00 [facility] Comment on above: Order Comment: Speci men Type: BLOOD SPECIMENOrdering Facility: [facility] Address: [address] [place] [address] Performed By: #### 5 7021-8 ####[facility] LABCLIA [id number] [place] [id number] [facility] Lymphocytes/100 WBC (Bld) 15.8 % Normal [facility] Comment on above: Order Comment: Speci men Type: BLOOD SPECIMENOrdering Facility: [facility] Address: [address] [place] [address] Performed By: #### 5 7021-8 ####[facility] LABCLIA [id number] [place] [address] [place] MCH (RBC) [Entitic mass] 32.2 pg Normal 26.0-34.0 [facility] Comment on above: Order Comment: Speci men Type: BLOOD SPECIMENOrdering Facility: [facility] Address: [address] [place] [address] Performed By: #### 5 7021-8 ####[facility] LABCLIA [id number] [place] MCHC (RBC) [Mass/Vol] 33.4 g/dL Normal 30.5-36.0 [facility] Comment on above: Order Comment: Speci men Type: BLOOD SPECIMENOrdering Facility: [facility] Address: [address] [place] [address] Performed By: #### 5 7021-8 ####[facility] LABCLIA [id number] [place] [id number] [place] MCV (RBC) [Entitic vol] 96.5 fL Normal 80.0-100.0 [facility] Comment on above: Order Comment: Speci men Type: BLOOD SPECIMENOrdering Facility: [facility] Address: [address] [place] [address] Performed By: #### 5 7021-8 ####[facility] LABCLIA [id number] [place] [id number] [facility] [place] Monocytes (Bld) [#/Vol] 0.58 10*3/uL Normal <0.87 [facility] Comment on above: Order Comment: Speci men Type: BLOOD SPECIMENOrdering Facility: [facility] Address: [address] [place] [address] Performed By: #### 5 7021-8 ####[facility] LABCLIA [id number] [place] [address] [place] Monocytes/100 WBC (Bld) 5.0 % Normal [facility] Comment on above: Order Comment: Speci men Type: BLOOD SPECIMENOrdering Facility: [facility] Address: [address] [place] [address] Performed By: #### 5 7021-8 ####[facility] LABCLIA [id number] [place] [address] [place] Neutrophils (Bld) [#/Vol] 9.22 10*3/uL High 1.45-7.50 [facility] Comment on above: Order Comment: Speci men Type: BLOOD SPECIMENOrdering Facility: [facility] Address: [address] [place] [address] Performed By: #### 5 7021-8 ####[facility] LABCLIA [id number] [place] [address] [place] Neutrophils/100 WBC (Bld) 78.6 % Normal [facility] Comment on above: Order Comment: Speci men Type: BLOOD SPECIMENOrdering Facility: [facility] Address: [address] [place] [address] Performed By: #### 5 7021-8 ####[facility] LABCLIA [id number] [place] [address] [place] Nucleated RBC (Bld) [#/Vol] Normal [facility] Comment on above: Order Comment: Speci men Type: BLOOD SPECIMENOrdering Facility: [facility] Address: [address] [place] [address] Performed By: #### 5 7021-8 ####[facility] LABCLIA [id number] [place] [address] [place] Nucleated RBC/100 WBC (Bld) [Ratio] Normal [facility] Comment on above: Order Comment: Speci men Type: BLOOD SPECIMENOrdering Facility: [facility] Address: [address] [place] [address] Performed By: #### 5 7021-8 ####[facility] LABCLIA [id number] [place] [address] [place] Platelet mean volume (Bld) [Entitic vol] 8.7 fL Low 9.0-12.7 [facility] Comment on above: Order Comment: Speci men Type: BLOOD SPECIMENOrdering Facility: [facility] Address: [address] [place] [address] Performed By: #### 5 7021-8 ####[facility] LABCLIA [id number] [place] [address] [place] Platelets (Bld) [#/Vol] 285 10*3/uL Normal 150-400 [facility] Comment on above: Order Comment: Speci men Type: BLOOD SPECIMENOrdering Facility: [facility] Address: [address] [place] [address] Performed By: #### 5 7021-8 ####[facility] LABCLIA [id number] [place] [address] [place] RBC (Bld) [#/Vol] 4.25 10*6/uL Normal 3.90-5.20 [facility] Comment on above: Order Comment: Speci men Type: BLOOD SPECIMENOrdering Facility: [facility] Address: [address] [place] [address] Performed By: #### 5 7021-8 ####[facility] LABCLIA [id number] [place] [address] [place] WBC (Bld) [#/Vol] 11.71 10*3/uL High 3.70-11.00 [facility] Comment on above: Order Comment: Speci men Type: BLOOD SPECIMENOrdering Facility: [facility] Address: [address] [place] [address] [place] [address] Performed By: #### 5 7021-8 ####[facility] LABCLIA [id number] [place] [address] [place] CK SerPl-cCncon 12-25-2023 CK [Catalytic activity/Vol] 91 U/L Normal 42-196 [facility] Comment on above: Order Comment: Speci men Type: BLOOD SPECIMENOrdering Facility: [facility] Address: [address] [place] [id number] Performed By: #### 2 157-6, 3040-3, 34270-8 ####[facility] LABCLIA [id number] [place] [address] [facility] CNPNon 12-25-2023 CNPN Telephone (DILEEP) ANN MARIE HILL ([id number]) 1940 F Date Time Provider Department 12/25/23 ARVIN GOINS During your visit today, we recorded the following information about you: Arvin Goins MD 12/25/2023 9:53 PM Signed RQB. Patient coming to [place] after fall with humerus fracture. Will pursue [...] Assessed Reason for Visit: Hospital To Hospital [[id number]] Prescriptions as of 12/25/2023 - Chlorella (Biotics) Take three capsules each day. - PhytoMulti 60s capsules (Metagenics) Take 2 capsules daily, with meals. - Glycine (Pure Encapsulations) Take 1 capsule 3 times daily in divided doses between meals. (1 [id number]) - B-Complex Plus (Pure Encapsulations) Take 1 capsule by mouth daily with food. - Glutathione (Plut[employer]) Use 20 pumps daily (1000mg) divided doses through out the day. (2 pumps = 100 mg Glutathione) - desvenlafaxine ER (PRISTIQ) 50 mg 24 hr tablet Take 50 mg by mouth once daily. - vitamin E, dl,tocopheryl acet, (VITAMIN E, DL, ACETATE, ORAL) Take 1,000 Units by mouth once daily. - OmegaGenics EPA-DHA 2400 (High Concentrate EPA/DHA liquid) (eZ Systems) Take one teaspoon (5 ml) 1 times daily with food - UT Synergy ([employer]) antibacterial Take 1 capsule by mouth twice daily. - Neuromag ( [employer] ) 90 ct Take 3 capsules per [...] Encounter Status:Closed by ARVIN GOINS on 12/25/[address] [facility] [address] ABD/PEL W IVCONon 024 CT ABD/PEL W IVCON Invalid Interpretation Code [facility] CT BRAIN WO IVCONon 12-25-19 CT BRAIN WO IVCON Normal [facility] CT CERVICAL SPINE WO IVCONon 12-25-2023 CT CERVICAL SPINE WO IVCON Normal [facility] CT CHEST W IVCONon CT CHEST W IVCON Invalid Interpretation Code [facility] CT LUMBAR SPINE W RECON DATA -NBon 12-25-2023 CT LUMBAR SPINE W RECON DATA -NB Invalid Interpretation Code [facility] CT T-SPINE W RECON DATA -NBo n 12-25-2023 CT T-SPINE W RECON DATA -NB Invalid Interpretation Code [facility] Comprehensive metabolic 2000 panelon 12-25-2023 Albumin [Mass/Vol] 4.5 g/dL Normal 3.9-4.9 [facility] Comment on above: Order Comment: Speci men Type: BLOOD SPECIMENOrdering Facility: [facility] Address: [address] [place] [address] Performed By: #### 2 157-6, 3040-3, 76914-7 ####[facility] LABCLIA [id number] [place] [address] [place] ALP [Catalytic activity/Vol] 81 U/L Normal 34-123 [facility] Comment on above: Order Comment: Speci men Type: BLOOD SPECIMENOrdering Facility: [facility] Address: [address] [place] [address] Performed By: #### 2 157-6, 3040-3, 18194-1 ####[facility] LABCLIA [id number] [place] [address] [place] ALT [Catalytic activity/Vol] 35 U/L Normal 7-38 [facility] Comment on above: Order Comment: Speci men Type: BLOOD SPECIMENOrdering Facility: [facility] Address: [address] [place] [address] Performed By: #### 2 157-6, 3040-3, 97397-9 ####[facility] LABCLIA [id number] [place] [address] [place] Anion gap [Moles/Vol] 11 mmol/L Normal 9-18 [facility] Comment on above: Order Comment: Speci men Type: BLOOD SPECIMENOrdering Facility: [facility] Address: [address] [place] [address] Performed By: #### 2 157-6, 3040-3, 85766-6 ####[facility] LABCLIA [id number] [place] [address] [place] [Catalytic activity/Vol] 27 U/L Normal 13-35 [facility] Comment on above: Order Comment: Speci men Type: BLOOD SPECIMENOrdering Facility: [facility] Address: [address] [place] [address] Performed By: #### 2 157-6, 3040-3, 04797-2 ####[facility] LABCLIA [id number] [place] [address] [place] Bilirubin [Mass/Vol] 0.4 mg/dL Normal 0.2-1.3 [facility] Comment on above: Order Comment: Speci men Type: BLOOD SPECIMENOrdering Facility: [facility] Address: [address] [place] [address] Result Comment: Use of this assay is not recommended for patients undergoing treatment with eltrombopag due to the potential for falsely elevated results. Performed By: #### 2 157-6, 3040-3, 60917-4 ####[facility] LABCLIA [id number] [place] [address] [place] Calcium [Mass/Vol] 9.8 mg/dL Normal 8.5-10.2 [facility] Comment on above: Order Comment: Speci men Type: BLOOD SPECIMENOrdering Facility: [facility] Address: [address] [place] [address] Performed By: #### 2 157-6, 3040-3, 59607-3 ####[facility] LABCLIA [id number] [place] [address] [place] Chloride [Moles/Vol] 104 mmol/L Normal 97-105 [facility] Comment on above: Order Comment: Speci men Type: BLOOD SPECIMENOrdering Facility: [facility] Address: [address] [place] [id number] Performed By: #### 2 157-6, 3040-3, 01142-7 ####[facility] LABCLIA [id number] [place] [address] [place] CO2 [Moles/Vol] 24 mmol/L Normal 22-30 [facility] Comment on above: Order Comment: Speci men Type: BLOOD SPECIMENOrdering Facility: [facility] Address: [address] [place], [place] [address] Performed By: #### 2 157-6, 3040-3, 70636-0 ####[facility] LABCLIA [id number] [place] [address] [place] Creatinine [Mass/Vol] 0.98 mg/dL High 0.58-0.96 [facility] Comment on above: Order Comment: Speci men Type: BLOOD SPECIMENOrdering Facility: [facility] Address: [address] [place] [address] Result Comment: Use of this assay is not recommended for patients undergoing treatment with phenindione, due to the potential for falsely depressed results. Performed By: #### 2 157-6, 3040-3, 10119-0 ####[facility] LABCLIA [id number] [place] [address] [facility] Creatinine and Glomerular filtration rate.predicted panel (S/P/Bld) 58 mL/min/1.73m??? Low >=60 [facility] Comment on above: Order Comment: Speci [facility] Type: BLOOD SPECIMENOrdering Facility: [facility] Address: [address] [place] [address] Result Comment: Felicia mated Glomerular Filtration Rate [...] GFR. Performed By: #### 2 157-6, 3040-3, 07998-0 ####[facility] LABCLIA [id number] [place] [address] [place] Glucose [Mass/Vol] 216 mg/dL High 74-99 [facility] Comment on above: Order Comment: Kristin paige Type: BLOOD SPECIMENOrdering Facility: [facility] Address: [address] [place] [address] Result Comment: The [place] [employer] Association (ADA) provides guidance for cutoff [...] Standards of Medical Care in Diabetes 2016, [place] [employer]. Diabetes Care. 2016.39(Suppl 1). Performed By: #### 2 157-6, 3040-3, 12421-5 ####[facility] LABCLIA [id number] [place] [address] [place] Potassium [Moles/Vol] 3.5 mmol/L Low 3.7-5.1 [facility] Comment on above: Order Comment: Kristin paige Type: BLOOD SPECIMENOrdering Facility: [facility] Address: [address] [place] [address] Performed By: #### 2 157-6, 3040-3, 63694-8 ####[facility] LABCLIA [id number] [place] [address] [place] Protein [Mass/Vol] 7.9 g/dL Normal 6.3-8.0 [facility] Comment on above: Order Comment: Kristin paige Type: BLOOD SPECIMENOrdering Facility: [facility] Address: [address] [place] [address] Performed By: #### 2 157-6, 3040-3, 71855-9 ####[facility] LABCLIA [id number] [place] [address] [place] [facility] Sodium [Moles/Vol] 139 mmol/L Normal 136-144 [facility] Comment on above: Order Comment: Speci men Type: BLOOD SPECIMENOrdering Facility: [facility] Address: [address] [place] [address] Performed By: #### 2 157-6, 3040-3, 64651-1 ####[facility] LABCLIA [id number] [place] [address] [place] Urea nitrogen [Mass/Vol] 29 mg/dL High 7-21 [facility] Comment on above: Order Comment: Speci men Type: BLOOD SPECIMENOrdering Facility: [facility] Address: [address] [place] [address] Performed By: #### 2 157-6, 3040-3, 79058-5 ####[facility] LABCLIA [id number] [place] [address] [place] ED NOTEon 12-25-2023 ED NOTE Normal [facility] ED NOTE HNO ID: [id number] Author: CELINE MA, RN Service: Emergency Medicine Author Type: Registered Nurse Type: ED Notes Filed: 12/25/2023 22:00 Note Text: Nursing report called to [facility]. Normal [facility] ED NOTE Normal [facility] ED PROV NOTEon 12-25-2023 ED PROV NOTE Normal [facility] ED PROV NOTE Normal [facility] Lipase SerPl-cCncon 12-25-19 24 Lipase [Catalytic activity/Vol] 23 U/L Normal 16-61 [facility] Comment on above: Order Comment: Speci men Type: BLOOD SPECIMENOrdering Facility: [facility] Address: [address] [place], [place] [address] Performed By: #### 2 157-6, 3040-3, 04896-7 ####[facility] LABCLIA [id number] [place] [address] [facility] PT panel Coag (PPP)on 2023 INR Coag (PPP) [Relative time] 1.0 {INR} Normal 0.9-1.3 [facility] Comment on above: Order Comment: Kristin paige Type: BLOOD SPECIMENOrdering Facility: [facility] Address: [address] [place], [place] [address] Result Comment: Nicolette min K Antagonist (VKA) Therapeutic Range: INR 2 to 3 (Target INR of 2.5)Note: For patients treated with VKA drugs, such as warfarin, the [place] [employer] 2012 Guideline recommends [...] al. Chest 2012, 141:7S-47SNishdora RA, et al. [facility] 2017, 70: 252-289 Performed By: #### 1 4979-9, 82856-1 ####[facility] LABCLIA [id number] [place] [address] [place] [facility] PT Coag (PPP) [Time] 9.9 s Normal <13.1 [facility] Comment on above: Order Comment: Kristin paige Type: BLOOD SPECIMENOrdering Facility: [facility] Address: [address] [place] [address] Performed By: #### 1 4979-9, 60351-7 ####[facility] LABCLIA [id number] [place] [address] [place] [facility] Urinalysis complete panel (U )on 12-25-2023 Bacteria LM.HPF (Urine sed) [#/Area] Rare Abnormal None Seen [facility] Comment on above: Order Comment: Speci men Type: URINE SPECIMENOrdering Facility: [facility] Address: [address] [place] [address] Performed By: #### 2 4356-8 ####[facility] LABCLIA [id number] [place] [address] [facility] [id number] [place] [address] [place] Bilirubin Ql (U) Negative Normal Negative [facility] Comment on above: Order Comment: Speci men Type: URINE SPECIMENOrdering Facility: [facility] Address: [address] [place] [address] Performed By: #### 2 4356-8 ####[facility] LABCLIA [id number] [place] [address] [facility] LABORATORYCLIA [id number] [place], [place] [id number] [place] [address] [place] Clarity (Unsp spec) Slightly Cloudy Abnormal Clear [facility] Comment on above: Order Comment: Speci men Type: URINE SPECIMENOrdering Facility: [facility] Address: [address] [place] [address] Performed By: #### 2 4356-8 ####[facility] LABCLIA [id number] [place] [address] [facility] LABORATORYCLIA [id number] [place], [place] [id number] [place] [address] [place] Color (U) Straw Normal Yellow [facility] Comment on above: Order Comment: Speci men Type: URINE SPECIMENOrdering Facility: [facility] Address: [address] [place] [address] Performed By: #### 2 4356-8 ####[facility] LABCLIA [id number] [place] [address] [facility] LABORATORYCLIA [id number] [place] [address] [place] Epithelial cells LM.HPF (Urine sed) [#/Area] Few Normal [facility] Comment on above: Order Comment: Speci men Type: URINE SPECIMENOrdering Facility: [facility] Address: [address] [place] [address] Performed By: #### 2 4356-8 ####[facility] LABCLIA [id number] [place] [address] [facility] LABORATORYCLIA [id number] [place] [address] [place] Glucose Test strip (U) [Mass/Vol] 2+ Abnormal Negative [facility] Comment on above: Order Comment: Speci men Type: URINE SPECIMENOrdering Facility: [facility] Address: [address] [place] [address] Performed By: #### 2 4356-8 ####[facility] LABCLIA [id number] [place] [address] [facility]ORATORYCLIA [id number] [place] [address] [place] Hemoglobin Ql (U) 2+ Abnormal Negative [facility] Comment on above: Order Comment: Speci men Type: URINE SPECIMENOrdering Facility: [facility] Address: [address] [place] [address] Performed By: #### 2 4356-8 ####[facility] LABCLIA [id number] [place] [address] [facility]ORATORYCLIA [id number] [place] [address] [place] Ketones Ql (U) Negative Normal Negative [facility] Comment on above: Order Comment: Speci men Type: URINE SPECIMENOrdering Facility: [facility] Address: [address] [place] [address] Performed By: #### 2 4356-8 ####[facility] LABCLIA [id number] [place] [address] [facility] AMERICAAKRON GENERAL LABORATORYCLIA [id number] [place] [address] [place] Leukocyte esterase Test strip Ql (U) 2+ Abnormal Negative [facility] Comment on above: Order Comment: Speci men Type: URINE SPECIMENOrdering Facility: [facility] Address: [address] [place] [address] Performed By: #### 2 4356-8 ####[facility] LABCLIA [id number] [place] [address] [facility] LABORATORYCLIA [id number] [place] [address] [place] Nitrite Ql (U) Negative Normal Negative [facility] Comment on above: Order Comment: Speci men Type: URINE SPECIMENOrdering Facility: [facility] Address: [address] [place] [address] Performed By: #### 2 4356-8 ####[facility] LABCLIA [id number] [place], [place] [address] [place], [place] [address] LABORATORYCLIA [id number] [place] [address] [place] pH (U) 7.5 [pH] Normal 5.0-8.0 [facility] Comment on above: Order Comment: Speci men Type: URINE SPECIMENOrdering Facility: [facility] Address: [address] [place] [address] Performed By: #### 2 4356-8 ####[facility] LABCLIA [id number]AKRON [facility] LABORATORYCLIA [id number] [place] [address] [place] Protein (U) [Mass/Vol] Trace Abnormal Negative [facility] Comment on above: Order Comment: Speci men Type: URINE SPECIMENOrdering Facility: [facility] Address: [address] [place] [address] Performed By: #### 2 4356-8 ####[facility] LABCLIA [id number] [place] [address] [facility] LABORATORYCLIA [id number] [place] [address] [place] RBC LM.HPF (Urine sed) [#/Area] /[HPF] Abnormal 0-3 /HPF [facility] Comment on above: Order Comment: Speci men Type: URINE SPECIMENOrdering Facility: [facility] Address: [address] [place] [address] Performed By: #### 2 4356-8 ####[facility] LABCLIA [id number] [place] [address] [facility] LABORATORYCLIA [id number] [place] [address] STATES OF [facility] Specific gravity (U) [Rel density] 1.015 Normal 1.005-1.030 [facility] Comment on above: Order Comment: Speci men Type: URINE SPECIMENOrdering Facility: [facility] Address: [address] [place] [address] Performed By: #### 2 4356-8 ####[facility] BATH LABCLIA [id number] [place] [address] [facility] [id number] [place] [address] STATES OF [facility] Urobilinogen Ql (U) 0.2 EU/dL Normal 0.2-1.0 EU/dL [facility] Comment on above: Order Comment: Speci men Type: URINE SPECIMENOrdering Facility: [facility] Address: [address] [place] [address] Performed By: #### 2 4356-8 ####[facility] BATH LABCLIA [id number] [place] [id number] [facility] LABORATORYCLIA [id number] [address] STATES OF [facility] WBC LM.HPF (Urine sed) [#/Area] /[HPF] Abnormal 0-5 /HPF [facility] Comment on above: Order Comment: Speci men Type: URINE SPECIMENOrdering Facility: [facility] Address: [address] [place] [address] Performed By: #### 2 4356-8 ####[facility] LABCLIA [id number] [place] [address] [facility] LABORATORYCLIA [id number] [address] Urinalysis complete pnl Uron 12-25-2023 Urinalysis complete panel (U) Normal [facility] Comment on above: Order Comment: Speci men Type: URINE SPECIMENOrdering Facility: [facility] Address: [address] [place], [place] [address] Performed By: #### 2 4356-8 ####[facility] LABCLIA [id number] [place] [address] [place] [facility] LABORATORYCLIA [id number] OF [place] XR ELBOW 3V AP/LAT/OTHER LTo n 12-25-2023 XR ELBOW 3V AP/LAT/OTHER LT Normal [facility] XR HUMERUS 2V AP/LAT LTon XR HUMERUS 2V AP/LAT LT Normal [facility] XR KNEE 4V AP/LAT/OBLS LTon 12-25-2023 XR KNEE 4V AP/LAT/OBLS LT Normal [facility] XR KNEE 4V AP/LAT/OBLS RTon 12-25-2023 XR KNEE 4V AP/LAT/OBLS RT Normal [facility] XR SHLDR >/=3V AP/NICA AP/OTH R LTon 12-25-2023 XR SHLDR >/=3V AP/NICA AP/OTHR LT Normal [facility] aPTT PPPon 12-25-2023 aPTT Coag (PPP) [Time] 25.6 s Normal 23.0-32.[address] [facility] Comment on above: Order Comment: Speci men Type: BLOOD SPECIMENOrdering Facility: [facility] Address: [address] [place] [address] Performed By: #### 1 4979-9, 82794-9 ####[facility] LABCLIA [id number] [place] [address] [place] US.doppler Carotid arteries - bilateralon 08-25-[address], [address] [place] [address] Vascular Lab Report [facility] US CAROTID ARTERY DUPLEX BILATERAL Patient Name: ANN MARIE HILL Reading Physician: [id number] Miranda Tinoco MD, [facility] Study Date: 08/21/2023 Ordering Provider: [id number] MARY ANNE SNOW MRN/PID: [id number] Fellow: Technologist: Irasema Dooley RDCS, RVT Date of /Age: 2 1940 / 82 years Technologist 2: Gender: F Admission Status: Outpatient Location Performed: [facility] Diagnosis/ICD: Occlusion 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; Essential primary hypertension-I10 Indication: Hyperlipidemia, Dizziness, Dementia CPT Codes: 00657 Cerebrovascular Carotid Duplex scan complete CONCLUSIONS: Right [...] cm/s Right Left ICA/CCA Ratio 1.1 0.6 [id number] Miranda Tinoco MD, [facility] Final Miranda Tran M D - 08/25/2023 [facility] [address] [place] [address], [address], [place] [address] Vascular Lab Report [facility] US CAROTID ARTERY DUPLEX BILATERAL Patient Name: ANN MARIE HILL Kasie Physician: [id number] Miranda Tinoco MD, [facility] Study Date: 08/21/2023 Ordering Provider: [id number] ANDREWOSCAR GWENDOLYN MRN/PID: [id number] Fellow: Technologist: Irasema Dooley [facility], T Date of /Age: 2 1940 / 82 years Technologist 2: Gender: F Admission Status: Outpatient Location Performed: [facility] Diagnosis/ICD: Occlusion 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; Essential primary hypertension-I10 Indication: Hyperlipidemia, Dizziness, Dementia CPT Codes: 05081 Cerebrovascular Carotid Duplex scan complete CONCLUSIONS: Right [...] cm/s Right Left ICA/CCA Ratio 1.1 0.6 [id number] Miranda Tinoco MD, FACC Final [facility] Work Phone: US.doppler Carotid arteries - bilateralOrdered By: Miranda Tinoco on 08-25-2023 [facility] Work Phone: US.doppler Carotid arteries - bilateralon 08-21-2023 Radiology Study observation (narrative) [facility] Work Phone: C Urineon 07-21-2023 [...] Locations R1: This test was performed at: [facility], [address] [place] [address], [address] , [place], [facility] Comment on above: Performed By: #### 2 [id number] #### [facility] [address] [place] [address] URINALYSISOrdered By: Robel Williamson on 07-19-2023 Bacteria [...] Interpretation Code Negative [facility] UA Auto SS [place].plasma/[place] .RBC (Bld) [Mass ratio] 0-3 /HPF Normal [...] [facility] UA Auto SS Urobilinogen Qn (U) 0.5430154 {Ham'U}/dL Normal 0.0 - 1.0 EU/dL [facility] [...] Ql (Urine sed) 3+ /HPF Abnormal Trace [facility] Comment on above: Performed By: #### 1 [id number] #### [facility] [address] [place] [address] Bilirubin Ql (U) Negative Normal Negative [facility] Comment on above: Performed By: #### 1 7296383 #### [facility] [address] [place] [address] Clarity (U) CLOUDY Abnormal Clear [facility] Comment on above: Performed By: #### 1 [id number] #### [facility] [address] [place] [address] Color (U) DARK YELLO Abnormal Yellow [facility] Comment on above: Performed By: #### 1 [id number] #### [facility] [address] [place] [address] Epithelial cells.squamous LM.HPF (Urine sed) [#/Area] 0-2 Normal 0-2 [facility] Comment on above: Performed By: #### 1 [id number] #### [facility] [address] [place] [address] Glucose Test strip (U) [Mass/Vol] Negative Normal Negative [facility] Comment on above: Performed By: #### 1 [id number] #### [facility] [address] [place] [address] Hemoglobin Ql (U) Negative Normal Negative [facility] Comment on above: Performed By: #### 1 0377587 #### [facility] [address] [place] [address] Ketones (U) [Mass/Vol] TRACE Abnormal Negative [facility] Comment on above: Performed By: #### 1 [id number] #### [facility] [address] [place] [address] [place].plasma/[place] .RBC (Bld) [Mass ratio] 0-3 Normal 0-3 [facility] Comment on above: Performed By: #### 1 [id number] #### [facility] [address] [place] [address] Nitrite Ql (U) Negative Normal Negative [facility] Comment on above: Performed By: #### 1 6697149 #### [facility] [address] [place] [address] pH (U) 5.5 [pH] Invalid Interpretation Code 5.0-9.0 [facility] Comment on above: Performed By: #### 1 5960393 #### [facility] [address] [place] [address] Protein (U) [Mass/Vol] 1+ Abnormal Negative [facility] Comment on above: Performed By: #### 1 [id number] #### [facility] [address] [place] [address] Specific gravity (U) [Rel density] 1.025 Invalid Interpretation Code 1.005-1.030 [facility] Comment on above: Performed By: #### 1 [id number] #### [facility] [address] [place] [address] Type of Urine collection method Clean Catch Normal [facility] Comment on above: Performed By: #### 1 [id number] #### [facility] [address] [place] [address] Urobilinogen Qn (U) 0.2 {Ham'U}/dL Normal 0.0-1.0 [facility] Comment on above: Performed By: #### 1 [id number] #### [facility] [address] [place] [address] WBC Auto Ql (U) 3+ Abnormal Negative [facility] Comment on above: Performed By: #### 1 [id number] #### [facility] [address] [place] [address] WBC casts LM.LPF (Urine sed) [#/Area] 0-3 Normal [facility] Comment on above: Performed By: #### 1 [id number] #### [facility] [address] [place] [address] WBC LM.HPF (Urine sed) [#/Area] /[HPF] Abnormal 0-5 [facility] Comment on above: Performed By: #### 1 [id number] #### [facility] [address] [place] [address] Office Visit (Cardiology)on 06-06-2023 Follow-up visit Diagnoses/Problems [...] Status:Hold For - Scheduling,Retrospect chema Authorization; Requested for:[id number]; Laterality : Bilateral Essential hypertension Renew: Carvedilol 12.5 MG Oral Tablet; TAKE 1 TABLET TWICE DAILY Overweight with body mass index (BMI) of 27 to 27.9 in adult Healthy Weight Tips; Status:Complete - Retrospective Authorization; Done: [id number] Some eating tips that can help you lose weight.; Status:Complete - Retrospective Authorization; Done: [id number] SocHx: Never a smoker Tobacco Use Screening; Status:Complete; Done: [id number] Patient Instructions Please bring all medicines, vitamins, [...] as needed Neuro Rudolph TABSTAKE DIRECTED. Pristiq HY26wwj daily Rosuvastatin Calcium 40 MG Oral TabletTAKE [...] no fr (more content not included)... Normal [facility] Tobacco Screening.on 023 Adult depression screening assessment No [facility] Trevent[employer] 250 DO Work Phone: Fall risk assessment a) No falls within the last year [facility] Treventis 250 DO Work Phone: Tobacco use status CP b) No [facility] Trevent[employer] 250 DO Work Phone: CNOVon 05-19-2023 CNOV Office Visit (MEDN ) ANN MARIE HILL ([id number]) 1940 F Date Time Provider Department 05/19/23 3:30 PM [facility] During your visit today, we recorded the [...] OmegaGenics EPA-DHA 2400 (High Concentrate EPA/DHA liquid) ([employer]) Take one teaspoon (5 ml) 1 times daily with food UT Synergy ([employer]) antibacterial Take 1 capsule by mouth twice daily. Brain Misael Capsules ([employer]) Take 2 tablets by mouth w MEALS. 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 [...] following ket (more content not included)... Normal [facility] ED Note-Physicianon 05-15-20 23 ED Note-Physician [id number] 1.00CD:127 Normal [facility] Screenson 04-26-2023 Screens [id number] .00CD:127 Normal [facility] Ambulatory Visit Summaryon 0 04-25-2023 [...] mg/g Vag Crm) omega-3 polyunsaturated fatty acids ([place]-3 350 mg oral capsule) ubiquinone (Co Q-10) [...] URL When: Where: [address] [place] [address] Medications What How Much When Instructions Unchanged [...] or concerns Unchanged omega-3 polyunsaturated fatty acids ([place]-3 350 mg oral capsule) By Mouth Every [...] blockage i (more content not included)... Normal [facility] Patient Educationon 04-25-20 Patient Education [...] these instructions at home: Medicines ? Take fgvf-oxo-sjmbdyt and prescription medicines only as told by [...] provider. Document Revised: 05/07/2021 Document Reviewed: 05/07/2021 [employer] Patient Education ? 2022 [employer] Normal [facility] Urology Office/Clinic Noteon 04-25-2023 Urology Office/Clinic Note [...] provider and she was started on supplements. 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 and then we started back on the Clobetasol. She is currently using both creams as needed and husbands says it helps a lot. +C&S 02/27/23 [place] *Tx'd w/5 day Macrobid therapy. Pt [...] Contact Information DANIEL BOYER, ELLEN Bell, URL [address] [place] [address] Additional Instructions: Patient Education Urinary Tract Infection, Adult, Wnip-ap-Uojm Documentation recorded by the scribe Di Valdez [...] Tab, 10 mg= 1 tab(s), Oral, Daily [place]-3 350 mg oral capsule, Oral, Daily Pristiq, [...] Status Comments (more content not included)... Normal [facility] Comment on above: Result Comment: [...] mg/g Vag Crm) omega-3 polyunsaturated fatty acids ([place]-3 350 mg oral capsule) ubiquinone (Co Q-10) valsartan (valsartan 80 mg Tab) vitamin E Procedures Performed Cystourethroscopy with dilation of urethral stricture (02/12/2019). What to do next Scheduled Follow-Up Appointments Monday 2:15 PM EDT With: GENO WATTS, Kunal Heller Where: [facility] Patient Educationon 08-08-20 22 Patient [...] this condition includes: ? Antibiotic medicine. ? Mlar-yap-ukczawd medicines to treat discomfort. ? Drinking enough [...] these instructions at home: Medicines ? Take nniv-wdt-lrdpldb and prescription medicines only as told by [...] This in (more content not included)... Normal [facility] Urology Office/Clinic Noteon 08-08-2022 Urology [...] EDT [facility] [address] [place] [phone] Additional Instructions: Patient Education Urinary Tract Infection, [...] Tab, 10 mg= 1 tab(s), Oral, Daily [place]-3 350 mg oral capsule, Oral, Daily Pristiq, [...] inactivated - Not Given Patient Refuses Normal [facility] Comment on above: Result Comment: [...] : DR SAVANA PRATER . Admission #: [id number] Family : Order #: [id number] CLICK HERE TO VIEW EXAM RADIOLOGY REPORT [...] Treatments None Family Cancers None LOCATION: [facility] BREAST COMPOSITION: Scattered areas fibroglandular [...] M.D. on 06/17/2022 at 15:47 Normal [facility] OCC BLD IMMUNOASSAYon 2021 OCCULT BLOOD Negative Normal NEGATIVE [facility] Comment on above: Performed By: #### O CHANDU #### [facility] [address] [place], [place] [address] Dr. Hu Carlos INSULINon 06-04-2022 Insulin 11.2 uIU/mL Normal 2.6-24.9 [facility] Comment on above: Performed By: #### I NSULIN ####[facility] [address] [place], [place] [address]PwDr. Hu Carlos T4, T3U, FTI LABCORPon 06-04 Free Thyroxine Index 2.3 Normal 1.2-4.9 [facility] Comment on above: Performed By: #### T HYLC #### [facility] [address] [place] [address] [address] Hu Carlos T3 Uptake 26 % Normal 24-39 [facility] Comment on above: Performed By: #### T HYLC #### [facility] [address] [place] [address] [address] Hu Carlos T4 [Mass/Vol] 8.8 ug/dL Normal 4.5-12.0 [facility] Comment on above: Performed By: #### T HYLC #### [facility] [address] [place] [address] [address] Hu Carlos VIT D 25-[place] LABCORPon 2021 Vitamin D, 25-Hydroxy 60.5 ng/mL Normal 30.0-100.0 [facility] Comment on above: Result Comment: Nicolette min D deficiency has been defined by the [place] of Medicine and an Endocrine Society practice guideline as a level of serum 25-OH vitamin D less than 20 ng/mL (1,2). The Endocrine Society went on to further define vitamin D insufficiency as a level between 21 and 29 ng/mL (2). 1. IOM ([place] of Medicine). 2010. Dietary reference intakes for calcium and D. [place]: The National Academies Press. 2. Suzette MF, Julian [place], Fady CLEMONS, et al. Evaluation, treatment, and prevention of vitamin D deficiency: an Endocrine Society clinical practice guideline. JCEM. 2010; 96(7):1911-30. Performed By: #### V ITADLC ####[facility] [address] [place] [address]Dr. Hu Carlos CBC AUTO DIFFon 06-03-2022 BASO # 0.0 103/ul Normal 0.0-0.1 [facility] Comment on above: Performed By: #### C BC #### [facility] [address] [place] [address] [address] Hu Carlos Basophils/100 WBC (Bld) 0.6 % Normal 0.2-2.0 [facility] Comment on above: Performed By: #### C BC #### [facility] [address] [place] [address] Dr. Hu Carlos EO # 0.2 103/ul Normal 0.0-0.7 [facility] Comment on above: Performed By: #### C BC #### [facility] [address] [place] [address] Dr. Hu Carlos Eosinophils/100 WBC (Bld) 3.2 % Normal 0.9-7.0 [facility] Comment on above: Performed By: #### C BC #### [facility] [address] [place] [address] Dr. Hu Carlos Erythrocyte distribution width (RBC) [Ratio] 12.6 % Normal 11.0-15.0 [facility] Comment on above: Performed By: #### C BC #### [facility] [address] [place] [address] Dr. Hu Carlos Hematocrit (Bld) [Volume fraction] 40.0 % Normal 36.0-48.0 [facility] Comment on above: Performed By: #### C BC #### [facility] [address] [place] [address] Dr. Hu Carlos Hemoglobin (Bld) [Mass/Vol] 12.8 g/dL Normal 12.0-16.0 [facility] Comment on above: Performed By: #### C BC #### [facility] [address] [place] [address] Dr. Hu Carlos IG # 0.01 10e3/ul Normal 0.00-0.03 [facility] Comment on above: Performed By: #### C BC #### [facility] Laboratory [address] [place] [address] Dr. Hu Carlos IG % 0.2 % Normal 0.0-0.5 [facility] Comment on above: Performed By: #### C BC #### [facility] [address] [place] [address] Dr. Hu Carlos LYMPH # 1.2 103/ul Normal 1.2-3.8 [facility] Comment on above: Performed By: #### C BC #### [facility] [address] [place] [address] Dr. Hu Carlos Lymphocytes/100 WBC (Bld) 22.7 % Normal 20.5-60.0 [facility] Comment on above: Performed By: #### C BC #### [facility] [address] [place] [address] Dr. Hu Carlos MANUAL DIFF REQ NO Normal [facility] Comment on above: Performed By: #### C BC #### [facility] [address] [place] [address] Dr. Hu Carlos MCH (RBC) [Entitic mass] 31.8 pg Normal 26.7-34.0 [facility] Comment on above: Performed By: #### C BC #### [facility] [address] [place] [address] Dr. Hu Carlos MCHC (RBC) [Mass/Vol] 32.0 g/dL Normal 29.9-35.2 [facility] Comment on above: Performed By: #### C BC #### [facility] [address] [place] [address] Dr. Hu Carlos MCV (RBC) [Entitic vol] 99.3 fL Critically high 81.0-99.0 [facility] Comment on above: Performed By: #### C BC #### [facility] [address] [place] [address] Dr. Hu Carlos MONO # 0.5 103/ul Normal 0.3-0.8 [facility] Comment on above: Performed By: #### C BC #### [facility] [address] [place] [address] Dr. Hu Carlos Monocytes/100 WBC (Bld) 8.8 % Normal 1.7-12.0 [facility] Comment on above: Performed By: #### C BC #### [facility] [address] [place] [address] Dr. Hu Carlos NEUT # 3.4 103/ul Normal 1.4-6.5 [facility] Comment on above: Performed By: #### C BC #### [facility] [address] [address] [address] Hu Carlos Neutrophils/100 WBC (Bld) 64.5 % Normal 43.0-75.0 [facility] Comment on above: Performed By: #### C BC #### [facility] [address] [address] [address] Hu Carlos Platelet mean volume (Bld) [Entitic vol] 8.8 fL Critically low 9.5-13.5 [facility] Comment on above: Performed By: #### C BC #### [facility] [address] [address] [address] Hu Carlos PLT 278 103/ul Normal 150-450 [facility] Comment on above: Performed By: #### C BC #### [facility] [address] [address] [address] Hu Carlos RBC 4.03 106/ul Critically low 4.20-5.40 [facility] Comment on above: Performed By: #### C BC #### [facility] [address] [address] [address] Hu Carlos WBC 5.3 103/ul Normal 4.0-11.0 [facility] Comment on above: Performed By: #### C BC #### [facility] [address] [address] [address] Hu Carlos GLYCOHEMOGLOBIN A1Con 2021 ADA RECOMMENDATION SEE BELOW Normal [facility] Comment on above: Result Comment: ADA RECOMMENDED LIMIT 4.0 - 6.0 ADA THERAPEUTIC TARGET < 7.0 ACTION SUGGESTED > 7.0 Performed By: #### A 1C ####[facility] [address] [id number]. Hu Carlos Glucose [Mass/Vol] 123 mg/dL Normal [facility] Comment on above: Performed By: #### A 1C ####[facility] [address] [id number]. Hu Carlos HbA1c (Bld) [Mass fraction] 5.9 % Normal 4.5-6.2 [facility] Comment on above: Performed By: #### A 1C ####[facility] [address] [place], [place] [address]CbDr. Hu Carlos IRONon 06-03-2022 Iron [Mass/Vol] 68.0 ug/dL Normal 50.0-170.0 [facility] Comment on above: Performed By: #### I CANDY #### [facility] [address] [address] [address] Hu Carlos LIPID PROFILEon 06-03-2022 CHOL-HDL RATIO NORM SEE BELOW Normal [facility] Comment on above: Result Comment: 3.3 - 4.4 LOW RISK 4.4 - 7.1 AVERAGE RISK 7.1 - 11.0 MODERATE RISK >11.0 HIGH RISK Performed By: #### T SH, LIPID, CMP #### [facility] [address] [address] [address] Hu Carlos Cholesterol [Mass/Vol] 155 mg/dL Normal <=200 [facility] Comment on above: Performed By: #### T SH, LIPID, CMP #### [facility] [address] [address] [address] Hu Carlos Cholesterol in HDL [Mass/Vol] 70 mg/dL Critically high 40-60 [facility] Comment on above: Performed By: #### T SH, LIPID, CMP #### [facility] [address] [address] [address] Hu Carlos Cholesterol in LDL [Mass/Vol] 73.2 mg/dL Normal [facility] Comment on above: Performed By: #### T SH, LIPID, CMP #### [facility] [address] [address] [address] Hu Carlos Cholesterol.total/Chol esterol in HDL [Mass ratio] 2.2 {ratio} Normal [facility] Comment on above: Performed By: #### T SH, LIPID, CMP #### [facility] [address] [address] [address] Hu Carlos HDL NORMAL > or = 60 mg/dl - LO W CARDIOVASCULAR RISK <40 mg/dl - HIGH CARDIOVASCULAR RISK Normal [facility] Comment on above: Performed By: #### T KISHOR, LIPID, CMP #### [facility] [address] [address] [address] Hu Carlos LDL CALC NORMAL SEE BELOW Normal [facility] Comment on above: Result Comment: <100 mg/dl OPTIMAL 100 - 129 mg/dl NEAR OR ABOVE OPTIMAL 130 - 159 mg/dl BORDERLINE HIGH 160 - 189 mg/dl HIGH >190 mg/dl VERY HIGH Performed By: #### T SH, LIPID, CMP #### [facility] [address] [address] [address] Hu Carlos Triglyceride [Mass/Vol] 59 mg/dL Normal <=150 [facility] Comment on above: Performed By: #### T KISHOR, LIPID, CMP #### [facility] [address] [place] [address] Dr. Hu Carlos VLDL CALC 11.8 mg/dL Normal [facility] Comment on above: Performed By: #### T KISHOR, LIPID, CMP #### [facility] [address] [place] [address] Dr. Hu Carlos PROF 14(COMP METB)on 022 Albumin [Mass/Vol] 3.5 g/dL Normal 3.4-5.0 [facility] Comment on above: Performed By: #### T KISHOR, LIPID, CMP #### [facility] [address] [place] [address] Dr. Hu Carlos Albumin/Globulin [Mass ratio] 1.0 {ratio} Normal [facility] Comment on above: Performed By: #### T SH, LIPID, CMP #### [facility] [address] [place] [address] Dr. Hu Carlos ALP [Catalytic activity/Vol] 73 U/L Normal 46-116 [facility] Comment on above: Performed By: #### T SH, LIPID, CMP #### [facility] [address] [place] [address] Dr. Hu Carlos ALT [Catalytic activity/Vol] 24 U/L Normal 14-59 [facility] Comment on above: Performed By: #### T SH, LIPID, CMP #### [facility] [address] [address] [address] Hu Carlos Anion gap [Moles/Vol] 11.1 mmol/L Normal [facility] Comment on above: Performed By: #### T SH, LIPID, CMP #### [facility] [address] [address] [address] Hu Carlos AST [Catalytic activity/Vol] 15 U/L Normal 15-37 [facility] Comment on above: Performed By: #### T SH, LIPID, CMP #### [facility] [address] [address] [address] Hu Carlos Bilirubin [Mass/Vol] 0.4 mg/dL Normal 0.2-1.0 [facility] Comment on above: Performed By: #### T SH, LIPID, CMP #### [facility] [address] [address] [address] Hu Carlos Calcium [Mass/Vol] 8.9 mg/dL Normal 8.5-10.1 [facility] Comment on above: Performed By: #### T SH, LIPID, CMP #### [facility] [address] [address] [address] Hu Carlos Chloride [Moles/Vol] 103 mmol/L Normal 98-107 [facility] Comment on above: Performed By: #### T SH, LIPID, CMP #### [facility] [address] [address] [address] Hu Carlos CO2 [Moles/Vol] 30.9 mmol/L Normal 21.0-32.0 [facility] Comment on above: Performed By: #### T SH, LIPID, CMP #### [facility] [address] [address] [address] Hu Carlos Creatinine [Mass/Vol] 0.81 mg/dL Normal 0.55-1.02 [facility] Comment on above: Performed By: #### T SH, LIPID, CMP #### [facility] [address] [address] [address] Hu Carlos EGFR-AF VINCENTIAN >60 Normal >=60 [facility] Comment on above: Performed By: #### T SH, LIPID, CMP #### [facility] [address] [address] [address] Hu Carlos EGFR-NON AF VINCENTIAN >60 Normal >=60 [facility] Comment on above: Performed By: #### T SH, LIPID, CMP #### [facility] [address] [address] [address] Hu Carlos Globulin (S) [Mass/Vol] 3.6 g/dL Normal [facility] Comment on above: Performed By: #### T SH, LIPID, CMP #### [facility] [address] [place] [address] Dr. Hu Carlos Glucose [Mass/Vol] 100 mg/dL Normal 74-[address] [facility] Comment on above: Performed By: #### T SH, LIPID, CMP #### [facility] [address] [place] [address] Dr. Hu Carlos Potassium [Moles/Vol] 4.0 mmol/L Normal 3.5-5.1 [facility] Comment on above: Performed By: #### T SH, LIPID, CMP #### [facility] [address] [place] [address] Dr. Hu Carlos Protein [Mass/Vol] 7.1 g/dL Normal 6.4-8.[address] [facility] Comment on above: Performed By: #### T SH, LIPID, CMP #### [facility] [address] [place] [address] Dr. Hu Carlos Sodium [Moles/Vol] 141 mmol/L Normal 136-[address] [facility] Comment on above: Performed By: #### T SH, LIPID, CMP #### [facility] [address] [place] [address] Dr. Hu Carlos Urea nitrogen [Mass/Vol] 21.0 mg/dL Critically high 7.0-18.0 [facility] Comment on above: Performed By: #### T SH, LIPID, CMP #### [facility] [address] [place] [address] Dr. Hu Carlos Urea nitrogen/Creatinine [Mass ratio] 25.9 mg/mg Normal [facility] Comment on above: Performed By: #### T SH, LIPID, CMP #### [facility] [address] [place], [place] [address] Dr. Hu Carlos TSHon 06-03-2022 TSH 1.582 uIU/mL Normal 0.358-3.740 [facility] Comment on above: Performed By: #### T SH, LIPID, CMP #### [facility] [address] [place], [place] [address] Dr. Hu Carlos PHQ-2 VITALSon 05-31-2022 Fall risk assessment a) No falls within the last year [facility] [address] DO Work Phone: Tobacco use status [facility] b) No [facility] [address] DO Work Phone: PHQ-[address] [facility] [address] DO Work Phone: Tobacco Screening.on 021 Fall risk assessment a) No falls within the last year [facility] [address] DO Work Phone: Tobacco use status [facility]PHS b) No [facility] [address] DO Work Phone: [facility] Carotid Artery Dupl ex Ultrasounon 06-23-2020 [facility] Carotid Artery Duplex Ultrasoun [address], [address] [place] [address] Vascular Lab Report Carotid Artery Duplex Ultrasound Patient Name: ANN MARIE HILL Kasie Physician: [id number] Miranda Tinoco MD, [facility] Study Date: 06/23/2020 Referring Physician: [id number] Mary Anne Snow MD MRN/PID: [id number] PCP: Savana Prater Accession/Order#: [id number] CC Report to: Date of : 1940 Technologist: Irasema Dooley RD, RVT Gender: F Technologist 2: Admission Status: Outpatient Location Performed: [facility] Diagnosis/ICD: 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 Indication: HTN, Hyperlipidemia, Mild Dementia, Overweight, PVC's Procedure/CPT: 00620 Cerebrovascular Carotid Duplex scan complete-70288 CONCLUSIONS: Right Carotid: Findings are consistent with [...] cm/s Right Left ICA/CCA Ratio 1.0 0.9 [id number] Miranda Tinoco MD, FACC Final Normal [facility] CARDIAC STRESS/REST INJE CTIONon 09-11-2019 [facility] CARDIAC STRESS/REST INJECTION Patient Name: ANN MARIE HILL STUDY: MYOCARDIAL PERFUSION STRESS TEST WITH LEXISCAN Performing facility: [facility], [address] [place] [address], [address], [place] [address] [facility] Provider: Mary Anne Snow MD PCP: Dr. Robel PRATER Supervising provider: Yin Taylor MD, FACC INDICATION: CP HISTORY: Gender: F; Age: 78 y/o ; Height: 154.94 cm; Weight: 77.5465254 kg. High Cholesterol; HTN PVCs CP DEMENTIA Denies smoking. COMPARISON: No comparison. ACCESSION NUMBER(S): [id number]; [id number]; [id number] ORDERING CLINICIAN: MARY ANNE SNOW TECHNIQUE: ONE [...] Electronically signed by: MARY ANNE SNOW MD [facility] XR Shoulder - left 2 Views [facility] Vital Signs Date Time Vital Sign Value Performing Clinician Facility 04-24-2024 13:23-0400 Body height 157.5 cm Mayank Hanson MD Work Phone: [facility] 04-24-2024 13:23-0400 Body mass index (BMI) [Ratio] 30.73 kg/m2 Mayank Hanson MD Work Phone: [facility] 04-24-2024 13:23-0400 Body temperature 98.2 [degF] Mayank Hanson MD Work Phone: [facility] 04-24-2024 13:23-0400 Body weight 76.2 kg Mayank Hanson MD Work Phone: [facility] 02-21-2024 11:08-0400 Body height 152.4 cm Mayank Hanson MD Work Phone: [facility] 02-21-2024 11:08-0400 Body mass index (BMI) [Ratio] 32.81 kg/m2 Mayank Hanson MD Work Phone: [facility] 02-21-2024 11:08-0400 Body temperature 98.2 [degF] Mayank Hanson MD Work Phone: [facility] 02-21-2024 11:08-0400 Body weight 76.2 kg Mayank Hanson MD Work Phone: [facility] 02-20-2024 13:23-0400 Body height 157.5 cm Helio Goff TABLE ASSEMBLER.YAM CURER Work Phone: [facility] 02-20-2024 13:23-0400 Body mass index (BMI) [Ratio] 30.73 kg/m2 Helio Goff TABLE ASSEMBLER.YAM CURER Work Phone: [facility] 02-20-2024 13:23-0400 Body weight 76.2 kg Helio Goff TABLE ASSEMBLER.YAM CURER Work Phone: [facility] 02-20-2024 13:23-0400 Diastolic blood pressure 72 mm[Hg] Helio Goff TABLE ASSEMBLER.YAM CURER Work Phone: [facility] 02-20-2024 13:23-0400 Systolic blood pressure 118 mm[Hg] Helio Goff TABLE ASSEMBLER.YAM CURER Work Phone: [facility] 02-04-2024 21:25-0400 SaO2% (BldA) [Mass fraction] 99 % ARAMIS [facility] Comment on above: Order Comment: Specimen Type: ARTERIAL B LOOD SPECIMENOrdering Facility: [facility] Address: [address] [place], [place] [id number] Performed By: #### A LLBG ####[facility] LABORATORYCLIA [id number] [place] [id number] [facility] 02-04-2024 11:39-0400 SaO2% (BldA) [Mass fraction] 87 % ARAMIS JIMENES [facility] Comment on above: Order Comment: Specimen Type: ARTERIAL B LOOD SPECIMENOrdering Facility: [facility] Address: [address] [place], [place] [id number] Performed By: #### A LLBG ####[facility] LABORATORYCLIA [id number] [place] [id number] [facility] 01-26-2024 16:39-0400 Body temperature 97.5 [degF] Susi Latrell TABLE ASSEMBLER - WRINGER OPERATOR Work Phone: [facility] 01-26-2024 16:39-0400 Body weight 76.2 kg Susi Latrell TABLE ASSEMBLER - WRINGER OPERATOR Work Phone: [facility] 01-26-2024 16:39-0400 Diastolic blood pressure 68 mm[Hg] Susi Siegfrie d TABLE ASSEMBLER - WRINGER OPERATOR Work Phone: [facility] 01-26-2024 16:39-0400 Heart rate 94 /min Susi Latrell TABLE ASSEMBLER - WRINGER OPERATOR Work Phone: [facility] 01-26-2024 16:39-0400 SaO2% (BldA) [Mass fraction] 97 % Susi Latrell TABLE ASSEMBLER - WRINGER OPERATOR Work Phone: [facility] 01-26-2024 16:39-0400 Systolic blood pressure 140 mm[Hg] Susi Latrell TABLE ASSEMBLER - WRINGER OPERATOR Work Phone: [facility] 01-24-2024 11:11-0400 Body height 162.6 cm Mayank Hanson MD Work Phone: [facility] 01-24-2024 11:11-0400 Body weight 74.84 kg Mayank Hanson MD Work Phone: [facility] 01-24-2024 11:11-0400 Respiratory rate 16 /min Mayank Hanson MD Work Phone: [facility] 06-06-2023 13:36-0400 Body height 157.48 cm Savana M Hoy Work Phone: [facility] [address] DO Work Phone: 06-06-2023 13:36-0400 Body mass index (BMI) [Ratio] 27.98 kg/m2 Savana M Hoy Work Phone: [facility] [address] DO Work Phone: 06-06-2023 13:36-0400 Body surface area Derived from formula 1.71 m2 Savana M Hoy Work Phone: [facility] [address] DO Work Phone: 06-06-2023 13:36-0400 Body weight 69.4 kg Savana M Hoy Work Phone: [facility] [address] DO Work Phone: 06-06-2023 13:36-0400 Diastolic blood pressure 62 mm[Hg] Savana M Hoy Work Phone: [facility] [address] DO Work Phone: 06-06-2023 13:36-0400 Heart rate 64 /min Savana M Hoy Work Phone: [facility] [address] DO Work Phone: 06-06-2023 13:36-0400 Systolic blood pressure 100 mm[Hg] Savana M Hoy Work Phone: [facility] [address] DO Work Phone: 05-19-2023 15:41-0400 Body height 157.5 cm Christiana Montero MD Work Phone: [facility] 05-19-2023 15:41-0400 Body weight 70.94 kg Christiana Montero MD Work Phone: [facility] 05-19-2023 15:41-0400 Diastolic blood pressure 63 mm[Hg] Christiana Montero MD Work Phone: [facility] 05-19-2023 15:41-0400 Heart rate 76 /min Christiana Montero MD Work Phone: [facility] 05-19-2023 15:41-0400 Systolic blood pressure 124 mm[Hg] Christiana Montero MD Work Phone: [facility] 04-25-2023 11:12-0400 Blood Pressure Location ELLEN DANIEL [facility] 04-25-2023 11:12-0400 Diastolic blood pressure 80 mm[Hg] ELLEN DANIEL [facility] 04-25-2023 11:12-0400 Heart rate 72 /min ELLEN DANIEL [facility] 04-25-2023 11:12-0400 Respiratory rate 16 /min ELLEN DANIEL [facility] 04-25-2023 11:12-0400 Systolic blood pressure 130 mm[Hg] ELLEN DANIEL [facility] 02-03-2023 15:26-0400 Body height 157.5 cm Christiana Montero MD Work Phone: [facility] 02-03-2023 15:26-0400 Body weight 68.77 kg Christiana Montero MD Work Phone: [facility] 02-03-2023 15:26-0400 Diastolic blood pressure 59 mm[Hg] Christiana Montero MD Work Phone: [facility] 02-03-2023 15:26-0400 Heart rate 83 /min Christiana Montero MD Work Phone: [facility] 02-03-2023 15:26-0400 Systolic blood pressure 136 mm[Hg] Christiana Montero MD Work Phone: [facility] 10-31-2022 13:19-0500 Body height 157.5 cm Christiana Montero MD Work Phone: [facility] 10-31-2022 13:19-0500 Body temperature 97.81 [degF] Christiana Montero MD Work Phone: [facility] 10-31-2022 13:19-0500 Body weight 62.23 kg Christiana Montero MD Work Phone: [facility] 10-31-2022 13:19-0500 Diastolic blood pressure 68 mm[Hg] Christiana Montero MD Work Phone: [facility] 10-31-2022 13:19-0500 Heart rate 79 /min Christiana Montero MD Work Phone: [facility] 10-31-2022 13:19-0500 SaO2% (BldA) [Mass fraction] 97 % Christiana Montero MD Work Phone: [facility] 10-31-2022 13:19-0500 Systolic blood pressure 143 mm[Hg] Christiana Montero MD Work Phone: [facility] 08-08-2022 15:17-0400 Diastolic blood pressure 76 mm[Hg] Kunal LORA [facility] 08-08-2022 15:17-0400 Mean blood pressure 101 mm[Hg] Kunal LORA [facility] 08-08-2022 15:17-0400 Systolic blood pressure 152 mm[Hg] Kunal LORA [facility] 07-25-2022 12:47-0400 Body height 157.5 cm Christiana Montero MD Work Phone: [facility] 07-25-2022 12:47-0400 Body temperature 98.01 [degF] Christiana Montero MD Work Phone: [facility] 07-25-2022 12:47-0400 Body weight 61.01 kg Christiana Montero MD Work Phone: [facility] 07-25-2022 12:47-0400 Diastolic blood pressure 62 mm[Hg] Christiana Montero MD Work Phone: [facility] 07-25-2022 12:47-0400 Heart rate 80 /min Christiana Montero MD Work Phone: [facility] 07-25-2022 12:47-0400 SaO2% (BldA) [Mass fraction] 98 % Christiana Montero MD Work Phone: [facility] 07-25-2022 12:47-0400 Systolic blood pressure 140 mm[Hg] Christiana Montero MD Work Phone: [facility] 05-31-2022 11:58-0400 Body height 157.48 cm Savana Prater Work Phone: [facility] [address] DO Work Phone: 05-31-2022 11:58-0400 Body mass index (BMI) [Ratio] 23.59 kg/m2 Savana Steinberg Wi-Chiy Work Phone: [facility] [address] DO Work Phone: 05-31-2022 11:58-0400 Body surface area Derived from formula 1.59 m2 Savana Steinberg Wi-Chiy Work Phone: [facility] [address] DO Work Phone: 05-31-2022 11:58-0400 Body weight 58.51 kg Savana Steinberg Hoy Work Phone: [facility] [address] DO Work Phone: 05-31-2022 11:58-0400 Diastolic blood pressure 60 mm[Hg] Savana Steinberg Hoy Work Phone: [facility] [address] DO Work Phone: 05-31-2022 11:58-0400 Heart rate 68 /min Savana M Hoy Work Phone: [facility] DO Work Phone: 05-31-2022 11:58-0400 Systolic blood pressure 102 mm[Hg] Savana M Hoy Work Phone: [facility] DO Work Phone: 03-18-2022 12:59-0400 Body height 157.5 cm Evita Calderon MD Work Phone: [facility] 03-18-2022 12:59-0400 Body weight 55.34 kg Evita Calderon MD Work Phone: [facility] 03-18-2022 12:59-0400 Diastolic blood pressure 52 mm[Hg] Evita hernandez MD Work Phone: [facility] 03-18-2022 12:59-0400 Heart rate 70 /min Evita Calderon MD Work Phone: [facility] 03-18-2022 12:59-0400 Systolic blood pressure 107 mm[Hg] Evita vera MD Work Phone: [facility] 03-02-2022 10:32-0400 Body weight 56.61 kg Han Britton MD Work Phone: [facility] 03-02-2022 10:32-0400 Diastolic blood pressure 53 mm[Hg] Han Britton MD Work Phone: [facility] 03-02-2022 10:32-0400 Heart rate 75 /min Han Britton MD Work Phone: [facility] 03-02-2022 10:32-0400 Systolic blood pressure 115 mm[Hg] Han Britton MD Work Phone: [facility] 01-31-2022 14:14-0400 Blood Pressure Location Kunal LORA [facility] 01-31-2022 14:14-0400 Diastolic blood pressure 51 mm[Hg] Kunal LORA [facility] 01-31-2022 14:14-0400 Heart rate 66 /min Kunal LORA [facility] 01-31-2022 14:14-0400 Respiratory rate 16 /min Kunal LORA [facility] 01-31-2022 14:14-0400 Systolic blood pressure 96 mm[Hg] Kunal LORA [facility] 08-09-2021 13:50-0400 Body height 157.48 cm Savana [employer] Hoy Work Phone: [facility] 250 DO Work Phone: 08-09-2021 13:50-0400 Body mass index (BMI) [Ratio] 21.58 kg/m2 [employer] Work Phone: [facility] DO Work Phone: 08-09-2021 13:50-0400 Body surface area Derived from formula 1.53 m2 Savana M Hoy Work Phone: [facility] 250 DO Work Phone: 08-09-2021 13:50-0400 Body weight 53.52 kg Savana Steinberg Hoy Work Phone: [facility] DO Work Phone: 08-09-2021 13:50-0400 Diastolic blood pressure 60 mm[Hg] Savana Steinberg Hoy Work Phone: [facility] DO Work Phone: 08-09-2021 13:50-0400 Heart rate 72 /min Savana Steinberg Hoy Work Phone: [facility] DO Work Phone: 08-09-2021 13:50-0400 Systolic blood pressure 110 mm[Hg] Savana Steinberg Hoy Work Phone: [facility] DO Work Phone: Encounters Encounter Date Encounter Type Care Provider Facility Start: 04-24-2024 End: 04-24-2024 Patient encounter procedure Mayank Hanson MD Work Phone: [facility] Comment on above: Other closed displac ed fracture of proximal end of left humerus with routine healing, subsequent encounter (Primary Dx); History of left hip hemiarthroplasty Start: 04-24-2024 End: 04-24-2024 ambulatory MAYANK HANSON Facility:[facility] Start: 03-07-2024 E-mail encounter fro m caregiver [...] encounter procedure Mayank Hanson MD Work Phone: [facility] Comment on above: History of left hip hemiarthroplasty (Primary Dx); Other closed displaced fracture of proximal end of left humerus with routine healing, subsequent encounter Start: 02-21-2024 End: 02-21-2024 ambulatory MAYANK HANSON Facility:[facility] Start: 02-20-2024 End: 02-20-2024 ambulatory Carla Schultz RN [employer] Coordinator Management Comment on above: ALBA BARRIGA RN ( E.D. Utilization Review per Payer Request.) Start: 02-20-2024 End: 02-20-2024 Patient encounter procedure Helio Goff TABLE ASSEMBLER.YAM CURER Work Phone: URO/Gynecology Comment on above: Female genital prola pse, unspecified type (Primary Dx); Incomplete bladder emptying; Recurrent UTI Start: 02-12-2024 End: 02-13-2024 Emergency department patient visit ARAMIS JIMENES Facility:[facility] Start: 02-10-[address], MD Work Phone: [facility] PROVID[facility]ULT Start: 02-07-2024 Refill Lena siu TABLE ASSEMBLER.YAM CURER Work Phone: [facility] PROVID[facility] ADULT Comment on above: Refill Request Start: 02-03-2024 Emergency department patient visit FESTUS GRIMES Facility:[facility] Start: 01-27-2024 End: 01-27-2024 Office outpatient visit 10 minutes Zo Blackmon TABLE ASSEMBLER - YAM CURER Work Phone: [facility] Comment on above: Acute cystitis witho ut hematuria (Primary Dx); Dysuria Start: 01-27-2024 End: 01-27-2024 ambulatory ZO BLACKMON [facility] Start: 01-26-2024 End: 01-27-2024 ambulatory SUSI NORTON [facility] Start: 01-26-2024 End: 01-26-2024 Patient encounter procedure Susi Norton TABLE ASSEMBLER - WRINGER OPERATOR Work Phone: [facility] Comment on above: Dysuria (Primary Dx) Start: 01-24-2024 End: 01-24-2024 ambulatory MAYANK HANSON Facility:[facility] Start: 01-24-2024 End: 01-24-2024 Patient encounter procedure Mayank Hanson MD Work Phone: [facility] Comment on above: Other closed displac ed fracture of proximal end of left humerus, initial encounter (Primary Dx) Start: 01-18-2024 End: 01-18-2024 Emergency department patient visit MELITON SANCHEZ Facility:[facility] Start: 01-10-2024 Telephone encounter Ag Rylie Work Phone: [facility] Comment on above: Appointment Start: 12-26-2023 Telephone encounter Arvin quintero MD Work Phone: [facility] Start: 12-26-2023 End: 01-01-2024 ambulatory ARAMIS NASCIMENTO Facility:[facility] Start: 12-25-2023 Emergency department patient visit SAVANA PRATER Facility:[facility] Start: 12-25-2023 Telephone encounter Arvin Goins MD Work Phone: [place] Provider Adult Comment on above: [facility] Start: 09-20-2023 End: 09-20-2023 ambulatory MAUREEN ALLREDI Not Available Start: 08-21-2023 End: 08-21-2023 Subsequent hospital visit by physician Judy Smith Echo/Vasc Room 2 [facility] Comment on above: Carotid stenosis, bi lateral; Benign hypertension Start: 07-19-2023 End: 07-20-2023 ambulatory ELLEN COOK [facility] Start: 07-19-2023 End: 07-19-2023 Lab Drop off ELLEN COOK [facility] Start: 07-19-2023 End: 07-20-2023 ambulatory Leonor Phillips Facility:[facility] Start: 07-19-2023 End: 07-19-2023 Patient encounter procedure Leonor Phillips [facility] Start: 06-06-2023 Office outpatient vi sit 15 minutes Savana Prater Work Phone: [facility] DO Work Phone: Start: 06-06-2023 ambulatory [...] caregiver Christiana Montero MD Work Phone: [facility] Start: 04-26-2023 Rx Renewal Savana Prater Work Phone: [facility] DO Work Phone: Start: 04-25-2023 End: 04-26-2023 ambulatory ELLEN COOK Facility: [facility] Start: 04-25-2023 End: 04-25-2023 Patient encounter procedure ELLEN COOK [facility] Start: 04-17-2023 End: 04-18-2023 ambulatory Kunal LORA Facility:[facility] [place] Start: 04-17-2023 End: 04-17-2023 Patient encounter procedure Kunal LORA [facility] Start: 02-17-2023 Telephone encounter Kasey Hernández RD Work Phone: Functional Medicine Comment on above: Appointment Start: 02-15-2023 End: 02-15-2023 ambulatory Kasey Cecille Hernández RD Work Phone: [facility] Start: 02-15-2023 End: 02-15-2023 [facility] visit, estab pt Kasey Cecille Hernández RD Work Phone: Functional Medicine Comment on above: Established Patient Start: 02-04-2023 ambulatory Christiana Concepcion Work Phone: Functional Medicine Comment on above: After Visit 02/03/23 Start: 02-04-2023 E-mail encounter fro m caregiver Christiana Montero MD Work Phone: [facility] Start: 02-03-2023 End: 02-03-2023 Patient encounter [...] m caregiver Christiana Montero MD Work Phone: [facility] Start: 10-31-2022 End: 10-31-2022 Patient encounter procedure Christiana Montero MD Work Phone: Functional Medicine Comment on above: Memory change (Prima ry Dx); Subclinical hypothyroidism; Elevated homocysteine; Impaired nutrient utilization; 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) Start: 10-28-2022 Telephone encounter Chirstiana shah MD Work Phone: Functional Medicine Comment on above: Patient Question Start: 10-05-2022 End: 10-06-[address] SAVANA PRATER Facility:[facility] Start: 08-10-2022 End: 08-11-2022 ambulatory Kunal R LORA Facility:[facility] [place] Start: 08-10-2022 End: 08-10-2022 Patient encounter procedure Kunal LORA [facility] [place] Start: 08-08-2022 End: 08-09-2022 ambulatory Kunal LORA Facility:[facility] [place] Start: 08-08-2022 End: 08-08-2022 Patient encounter procedure [facility] Start: 07-25-2022 End: 07-25-2022 Patient encounter [...] sit 25 minutes Savana Prater Work Phone: [facility] DO Work Phone: Start: 05-12-2022 ambulatory [facility] Functional Medicine Comment on above: Mold Report Start: 05-12-2022 E-mail encounter fro m caregiver [facility] Start: 05-09-2022 ambulatory Evita siu MD Work Phone: Functional Medicine Comment on above: Ubiquinol Start: 04-26-2022 Rx Renewal Savana M Hoy Work Phone: [facility] DO Work Phone: Start: 04-11-2022 ambulatory [facility] Comment on above: Ultrasound - Carotid Artery Start: 04-11-2022 E-mail encounter jacob steinberg caregiver [facility] Provider [facility] Start: 03-18-2022 End: 03-18-2022 [...] encounter procedure Kunal LORA [facility] Start: 01-09-2022 ambulatory Evita siu MD Work Phone: Functional Medicine Comment on above: Mold test results Start: 08-09-2021 Office outpatient vi sit 25 minutes Savana Prater Work Phone: [facility] DO Work Phone: Start: 07-11-2017 Ambulatory MARY ANNE SNOW Faci lity:[id number] Procedures Date Procedure Procedure Detail Performing Clinician Start: 02-21-2024 Radex shoulder compl ete minimum 2 views Mayank Hanson MD Work Phone: Start: 02-03-2024 Antibody screen ARAMIS FITZGERALD Comment on above: Order Comment: Speci men Type: BLOOD SPECIMENOrdering Facility: [facility] Address: [address] [place] [address] Performed By: #### T SCR ####[facility] BLOOD BANKCLIA [id number] [place] [address] [place] Start: 01-27-2024 Urnls [...] Snow MD Work Phone: Start: 02-12-2019 Cystourethroscopy [facility] dilation of urethral stricture Kunal LORA Appendectomy Savana M Hoy Work Phone: Cholecystectomy Savana Steinberg Ho y Work Phone: Operation on bladder Savana M Hoy Work Phone: Tonsillectomy Savana M Hoy Work Phone: Total colonoscopy Savana M Josi Work Phone: Comment on above: managed by perico james; Plan of Treatment Date Care Activity Detail Author Start: 02-11-2027 Diabetes Screening Diabetes Screenin g [facility] Start: 02-09-2027 Diabetes Screening Diabetes Screenin [facility] Start: 02-06-2027 Diabetes Screening Diabetes Screenin [facility] Start: 01-17-2027 Diabetes Screening Diabetes Screenin g [facility] Start: 12-29-2026 Diabetes Screening Diabetes Screenin g [facility] Start: 12-26-2026 Diabetes Screening Diabetes Screenin g [facility] Start: 12-24-2026 Diabetes Screening Diabetes Screenin g [facility] Start: 06-09-2024 Influenza vaccination C [facility] Start: 06-04-2024 FUV, Provider: Mary Anne Snow, Status: Pen, Time: 2:00 PM FUV, Provider: Mary Anne Snow, Status: Pen, Time: 2:00 PM [place] [address] DO Work Phone: Start: 06-04-2024 End: 06-04-2024 Patient encounter procedure 06/04/2024 2:00 PM EDT Office Visit [facility] [address] [facility] [address] [place] [id number] Mary Anne Snow MD [address] [facility] [address] [place] [address] [facility] Start: 04-24-2024 End: 04-24-2024 Patient encounter procedure 04/24/2024 1:30 PM EDT Office Visit [facility] [address] [place] [address] Mayank Hanson MD [address] [address] L HUMERUS FX F/U [facility] Comment on above: L HUMERUS FX F/U Start: 02-21-2024 End: 02-21-2024 Patient encounter procedure 02/21/2024 11:15 AM EDT Office Visit [facility] [address] [place] [address] Mayank Hanson MD [address] [place] [id number] --L HUMERUS FX F/U [facility] Comment on above: --L HUMERUS FX F/U Start: 02-20-2024 End: 02-20-2024 Patient encounter procedure 02/20/2024 1:00 PM EDT Office Visit URO/Gynecology [address] [place] [address] Helio Goff, TABLE ASSEMBLER.YAM CURER [address] [place] [address] Prolapse / Pessary [facility] Comment on above: Prolapse / Pessary Start: 11-25-2023 DIABETES SCREEN DIABETES SCREEN [facility] Start: 10-09-2023 Advance Directive Discussion Advance Directive Discussion [facility] Start: 10-09-2023 Medicare Advantage A nnual Wellness Visit Medicare Advantage Annual Wellness Visit [facility] Start: 07-24-2023 CAROTID, Provider: CHAD CARMONA ULTRASOUND 01,[id number], Status: Pen, Time: 2:30 PM CAROTID, Provider: CHAD SIMONI ULTRASOUND ,[id number], Status: Pen, Time: 2:30 PM [employer] 250 DO Work Phone: Start: 06-09-2023 Covid-19 Vaccine ( season) Covid-19 Vaccine () [facility] Start: 06-09-2023 Influenza vaccination C [facility] Start: 06-06-2023 FUV, Provider: Mary Anne Snow, Status: Pen, Time: 1:20 PM FUV, Provider: Mary Anne Snow, Status: Pen, Time: 1:20 PM [facility] Work Phone: Start: 03-18-2023 BP CONTROLLED (<130/80) BP CON TROLLED (<130/80) [facility] Start: 03-02-2023 BP CONTROLLED (<130/80) BP CON TROLLED (<130/80) [facility] Start: 02-04-2023 End: 04-06-2023 MIS SEND OUT TST 1 MISC SEND OUT TST 1 Lab Routine 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) Chemical exposure Expected: 02/04/2023, Expires: 04/06/2023 [facility] Work Phone: Comment on above: Expected: 02/04/2023 , Expires: 04/06/2023 Start: 12-01-2022 BP CONTROLLED (<130/80) BP CON TROLLED (<130/80) [facility] Start: 10-09-2022 ADVANCE DIRECTIVE DISCUSSION ADVANCE DIRECTIVE DISCUSSION [facility] Start: 07-25-2022 End: 09-24-2022 COPPER BLOOD COPPER BLOOD Lab Routine Memory change Expected: 07/25/2022, Expires: 09/24/2022 [facility] Work Phone: Comment on above: Expected: 07/25/2022 , Expires: 09/24/2022 Start: 07-25-2022 End: 09-24-2022 FM SQ NUTREVAL PANEL BLOOD AND URINE FM SQ NUTREVAL PANEL BLOOD AND URINE Lab Routine Impaired nutrient utilization Expected: 07/25/2022, Expires: 09/24/2022 [facility] Work Phone: Comment on above: Expected: 07/25/2022 , Expires: 09/24/2022 Start: 07-25-2022 End: 09-24-2022 Homocysteine [Moles/volume] in Serum or Plasma HOMOCYSTEINE Lab Routine Elevated homocysteine Expected: 07/25/2022, Expires: 09/24/2022 [facility] Work Phone: Comment on above: Expected: 07/25/2022 , Expires: 09/24/2022 Start: 07-25-2022 End: 07-25-2023 Thyrotropin [Units/volume] in Serum or Plasma TSH BLD Lab Routine Expected: 07/25/2022, Expires: 07/25/2023 [facility] Work Phone: Comment on above: Expected: 07/25/2022 , Expires: 07/25/2023 Start: 07-25-2022 End: 07-25-2023 Thyroxine (T4) free [Mass/volume] in Serum or Plasma T4 FREE/FREE THYROX Lab Routine Expected: 07/25/2022, Expires: 07/25/2023 [facility] Work Phone: Comment on above: Expected: 07/25/2022 , Expires: 07/25/2023 Start: 07-25-2022 End: 09-24-2022 Triiodothyronine (T3) Free [Mass/volume] in Serum or Plasma T3 FREE BLD Lab Routine Expected: 07/25/2022, Expires: 09/24/2022 [facility] Work Phone: Comment on above: Expected: 07/25/2022 , Expires: 09/24/2022 Start: 07-25-2022 End: 09-24-2022 Zinc [Mass/volume] in Serum or Plasma ZINC BLD Lab Routine Memory change Expected: 07/25/2022, Expires: 09/24/2022 [facility] Work Phone: Comment on above: Expected: 07/25/2022 , Expires: 09/24/2022 Start: 06-09-2022 Influenza vaccination C [facility] Start: 05-31-2022 FUV, Provider: Mary Anne Snow, Status: Pen, Time: 11:50 AM FUV, Provider: Mary Anne Snow, Status: Pen, Time: 11:50 AM [facility] [employer] 250 DO Work Phone: Start: 05-25-2022 FUV, Provider: Mary Anne Snow, Status: Pen, Time: 1:00 PM FUV, Provider: Mary Anne Snow, Status: Pen, Time: 1:00 PM [facility] 250 DO Work Phone: Start: 10-09-2021 ADVANCE DIRECTIVE DISCUSSION ADVANCE DIRECTIVE DISCUSSION [facility] Start: 08-07-2019 Pneumococcal Vaccine : 65+ (2 of 2 - PPSV23 or PCV20) Pneumococcal Vaccine: 65+ (2 of 2 - PPSV23 or PCV20) [facility] Start: 08-07-2019 Pneumococcal Vaccine : 65+ Years (2 - PPSV23 or PCV20) Pneumococcal Vaccine: 65+ Years (2 - PPSV23 or PCV20) [facility] Start: 08-07-2019 Pneumococcal Vaccine : 65+ Years (2 of 2 - PPSV23 or PCV20) Pneumococcal Vaccine: 65+ Years (2 of 2 - PPSV23 or PCV20) [facility] [employer] Start: 2006 BONE DENSITY BONE DENSITY [facility] Start: 2006 PNEUMOCOCCAL: 65+ (1 - PCV) PNEUMOCOCCAL: 65+ (1 - PCV) [facility] Start: 2006 PNEUMOVAX AGE 65 AND OVER WITH 5YR LOOKBACK (#1) PNEUMOVAX AGE 65 AND OVER WITH 5YR LOOKBACK (#1) [facility] Start: 2006 Screening for osteoporosis Bone Dens ity Screening [facility] Start: 2001 RSV Immunization age d 60 or older (1 - 1-dose 60+ series) RSV Immunization aged 60 or older (1 - 1-dose 60+ series) [facility] Start: 2001 RSV Vaccine (1 - 1-d ose 60+ series) RSV Vaccine (1 - 1-dose 60+ series) [facility] Start: 1991 SHINGRIX VACCINE (1 of 2) BYRNE GRIX VACCINE (1 of 2) [facility] Start: 1991 Zoster Vaccines (1 of 2) Zoste r Vaccines (1 of 2) [facility] Start: 1963 DTaP/Tdap/Td Vaccine s (1 - Tdap) DTaP/Tdap/Td Vaccines (1 - Tdap) [facility] Start: 1960 DTaP/Tdap/Td Vaccine s (1 - Tdap) DTaP/Tdap/Td Vaccines (1 - Tdap) [facility] Start: 1960 Urine microalbumin profile [facility] Start: 1959 ANNUAL PCP TEAM MACHINE FEEDER FLOORPERSON BRANNON DISEASE VISIT ANNUAL PCP TEAM CHRONIC DISEASE VISIT [facility] Start: 1959 BP CONTROLLED (<130/80) BP CON TROLLED (<130/80) [facility] Start: 1953 Depression Screening Depression Scre ening [facility] Start: 1946 COVID-19 VACCINE (#1) COVID-19 VACCI NE (#1) [facility] Start: 1946 COVID-19 VACCINE (1) COVID-19 VACCIN E (1) [facility] Start: 05-09-1942 COVID-19 VACCINE (#1) COVID-19 VACCI NE (#1) [facility] Start: 1941 Lipid panel Lipid Panel [facility] Start: 1941 Medicare Annual Well ness Visit Medicare Annual Wellness Visit (AWV) [facility] Start: 1941 Screening for osteoporosis Bone Dens ity Scan [facility] Bacteria identified in Urine by Culture Urine culture Microbiology Routine Dysuria Ordered: 01/27/2024 [facility] Work Phone: Comment on above: Ordered: 01/27/2024 End: 08-21-2023 US.doppler Carotid arteries - bilateral [facility] Service Area Work Phone: Comment [...] 13 valent Savana M Hoy Work Phone: [facility] DO Work Phone: NEGATED: Highlighted row has not occurred!08-08-2022 SARS-CoV-2 mRNA (tozinameran 5y-11y) vaccine Kunal LORA [facility] NEGATED: Highlighted row has not occurred!11-23-2020 influenza virus vaccine, unspecified formulation Kunal LORA [facility] Payers Date Payer Category Payer Medicare AETNA MEDICARE A ETNA MEDICARE PPO [id number] 2021-Present [phone] [address] [place] [address] O [id number] 2021 Medicare [id number] 1959 Medicare [id number] 1941 Unknown [id number] 93 1941 Unknown [id number] 93 1941 Unknown [id number] [id number] 93 1941 Unknown [id number] [id number] 93 1941 Unknown [id number] [id number] 93 1941 Unknown [id number] [id number] 56 1941 Unknown [id number] [id number] 27 1941 Unknown [id number] [id number] 27 1941 Unknown [id number] [id number] 27 1941 Unknown [id number] [id number] 27 1941 Unknown [id number] [id number] 27 1941 Unknown [id number] [id number] 27 1941 Unknown [id number] 259 Private Health Insurance [id number] Unknown [employer] Social History Date Type Detail Facility Start: 10-31-2022 End: 02-15-2023 Caffeine use Caffeine use [facility] Comment on above: decaff occasional co ffee, 1-2 cups of ohtt lionel daily; Start: 06-13-2019 End: 07-25-2022 Tobacco smoking status NHIS Never smoked tobacco [facility] Start: 06-13-2019 End: 07-25-2022 Tobacco use and exposure Smokeless tobacco non-user [facility] Start: 1940 Sex Assigned At Female [facility] Start: 12-07-2021 End: 08-21-2023 Exposure to SARS-CoV-2 (event) Not sure [facility] Start: 10-31-2022 End: 02-15-2023 Sex Assigned At Female [facility] Tobacco smoking status Never [facility] Start: 07-07-2020 Sexual orientation Heterosexual (beronica winters) [facility] Tobacco smoking stat [facility] Tobacco smoking consumption unknown [facility] Work Phone: Start: 1941 Sex Assigned At Not on file [facility] Work Phone: Start: 12-25-2023 End: 04-24-2024 Alcohol intake Lifetime non-drinker (finding) [facility] Has the [employer], or [employer] threatened to shut off services in your home in past 12Mo No [facility] (I/We) worried nathalie kearney (my/our) food would run out before (I/we) got money to buy more. Never true [facility] Medical Equipment Procedure Code Equipment Code Equipment Original Text Equipment Identifier Dates Cement Simplex P Tobramycin Bone Full Dose Radiopaque Preblend Sterile - [id number] Start: 02-04-2024 Cement Simplex P Tobramycin Bone Full Dose Radiopaque Preblend Sterile - [id number] Start: 02-04-2024 Insert Endo Ii + 6mm Taper Acetabular Hip - [id number] Start: 02-04-2024 Head Bio-Murphy I i Endo Ii 44mm Cocr Molybdenum Femoral Modular - [id number] Start: 02-04-2024 Centralizer Vers ys 11mm Pmma Stem Cemented Sterile Hip Distal - [id number] Start: 02-04-2024 Stem Echo Fx 9mm Lateral Offset Cocr Femoral Hip - [id number] Start: 02-04-2024 Plug Small Bone Cement 8-10mm Sterile Intramedullary Canal - [id number] Start: 02-04-2024 Functional Status Date Assessment Result Facility 04-25-2023 Functional Status N/A [facility] 08-08-2022 Functional Status N/A [facility] Clinical Notes 01-31-2022 to 04-24-2024 Mayank Hanson MD - 04/24/2024 1:20 PM Carla Matias RN - 02/27/2024 11:37 AM Mayank Noel MD - 02/21/2024 1:21 PM EDTPatient InstructionsPatient Instructions Note Date & Type Note Facility 04-24-2024 Note [facility] 04-24-2024 History of Presen t illness Narrative [...] Reactions Yuli Inhibitors Unknown Ciprofloxacin Unknown Nitrofurantoin Lares* Itching Penicillins Hives Sulfa (Sulfonamide * Rash [...] Additional: None for patient. requested referral to online banking specialist [facility]; will have office attempt to help him. Return if symptoms worsen or fail to improve. Mayank Hanosn MD documented in this encounter [facility] 02-27-2024 Note Patient Outreach ([facility] ANN MARIE HILL ([id number]) 1940 F Date Time Provider Department 02/27/24 CARLA SCHULTZ During your visit today, we recorded the following information about you: Carla Schultz RN 02/27/2024 11:41 AM Signed [facility] JAMILAH RN Patient identified by name and date of . Reason for review or outreach: Chart Review Jamilah Priority Emergency Department Utilization ED DIAGNOSES/REASON(S) FOR ED USE: OTHER FINDINGS/SUMMARY: [facility] Admit No Action required Patient Attributed [...] Assessed Reason for Visit: ACJackson JAMILAH RN [[id number]] Cmt: E.DTanner Utilization Review per Payer Request. [...] Encounter Status:Closed by CARLA SCHULTZ on 02/27/24 [facility] 02-27-2024 Note HNO ID: [id number] Author: CARLA SCHULTZ RN Service: ? Author Type: Registered Nurse Type: Progress Notes Filed: 02/27/2024 11:41 Note Text: [facility] JAMILAH RN Patient identified by name and date of . Reason for review or outreach: Chart Review Jamilah Priority Emergency Department Utilization ED DIAGNOSES/REASON(S) FOR ED USE: OTHER FINDINGS/SUMMARY: [facility] Admit No Action required Patient Attributed To: QAE Payer: [employer] MADDIE Action Taken: No action needed Contact made with patient: No, Chart review only. Signature: Carla Schultz RN [facility] 02-27-2024 History of Presen t illness Narrative AC JAMILAH RN Patient identified by name and date of . Reason for review or outreach: Chart Review Jamilah Priority Emergency Department Utilization ED DIAGNOSES/REASON(S) FOR ED USE: OTHER FINDINGS/SUMMARY: [facility] Admit No Action required Patient Attributed To: QAE Payer: A[employer] [place] Action Taken: No action needed Contact made with patient: No, Chart review only. Signature: Carla Schultz RN documented in this encounter [facility] 02-21-2024 Note Gwendolyn Banks [facility] 02-21-2024 History of Presen t illness Narrative [...] institution 12/2023. She is performing rehab at [facility], accompanied by . Patient with advanced dementia and unable to answer many questions but follows commands. Appears comfortable. deciding whether to move her to memory care at [facility] or back to independent living with him at [facility]. No reports of new injury. No reports [...] Reactions Yuli Inhibitors Unknown Ciprofloxacin Unknown Nitrofurantoin Lares* Itching Penicillins Hives Sulfa (Sulfonamide * Rash [...] global post-operative period documented in this encounter [facility] 02-20-2024 Instructions Helio Goff, TABLE ASSEMBLER.YAM CURER - 02/20/2024 4:17 PM EDT Recommend trying [...] and protect the skin. Avoid using a academic department chair to dry the vulvar area. Use cool gel packs on the vulva. documented in this encounter [facility] 02-20-2024 Note HNO ID: [id number] Author: HELIO GOFF APRN.CNP Service: ? Author [...] from Alzheimer's disease and currently resides at [facility] in [place]. She recently underwent surgery for a fractured hip. She has been wearing pessary (incontinence dish) but Christos is very opposed to continuing with these. She reports Ann Marie becomes extremely distressed with pelvic exams. 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 Christos strongly feels this a violation of [...] Michael is POA. 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 [facility] 02-20-2024 Note HNO ID: [id number] Author: CARLA SCHULTZ RN Service: ? Author Type: Registered Nurse Type: Progress Notes Filed: 02/20/2024 12:05 Note Text: ACM JAMILAH RN Patient identified by name and date of . Reason for review or outreach: Chart Review Jamilah Priority Emergency Department Utilization ED DIAGNOSES/REASON(S) FOR ED USE: OTHER FINDINGS/SUMMARY: [facility] E.D. visit Attributed incorrectly Patient Attributed To: MALLORY Payer: Mariana PERKINS Action Taken: No action needed Contact made with patient: No, Chart review only. Signature: Carla Schultz RN [facility] 02-20-2024 Note Patient Outreach ([facility]) ANN MARIE HILL ([id number]) 1940 F Date Time Provider Department 02/20/24 CARLA SCHULTZ During your visit today, we recorded the following information about you: Carla Schultz RN 02/20/2024 12:05 PM Signed ACM JAMILAH RN Patient identified by name and date of . Reason for review or outreach: Chart Review Jamilah Priority Emergency Department Utilization ED DIAGNOSES/REASON(S) FOR ED USE: OTHER FINDINGS/SUMMARY: [facility] E.D. visit Attributed incorrectly Patient Attributed [...] Encounter Status:Closed by CARLA SCHULTZ on 02/20/24 [facility] 02-20-2024 History of Presen t illness [...] from Alzheimer's disease and currently resides at [facility] in [place]. She recently underwent surgery for a fractured hip. She has been wearing pessary (incontinence dish) but Christos is very opposed to continuing with these. She reports Ann Marie becomes extremely distressed with pelvic exams. 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 Christos strongly feels this a violation of [...] is unlikely given her health and dementia. nAn Marie is in a Broda chair today. Christos reports the biggest issue they face is Ann Marie having trouble emptying bladder. She has frequent UTIs which are being treated empirically by the facility. UTI symptoms usually present with a change/worsening of Ann Marie's cognition. Michael is POA. 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 Helio Goff APRN.YAM CURER Consumer Sales Representative offered: patient accepted cloud infrastructure architect Celine Olivo MA OBJECTIVE: BP 118/72 Ht [...] Pelvic organ prolapse - Extensive discussion with Chirstos and Michael regarding POP, including treatment/management. Given [...] which included preparing to see the patient, [id number] patient care, completing clinical documentation, and counseling and educating the patient/family/caregiver. My final recommendations will be communicated back to the requesting physician by way of shared Medical record or letter via US mail. Helio Goff APRN.YAM CURER documented in this encounter [facility] 02-20-2024 History of Presen t illness Narrative ACM JAMILAH RN Patient identified by name and date of . Reason for review or outreach: Chart Review Jamilah Priority Emergency Department Utilization ED DIAGNOSES/REASON(S) FOR ED USE: OTHER FINDINGS/SUMMARY: [facility] E.D. visit Attributed incorrectly Patient Attributed To: QAE Payer: Mariana PERKINS Action Taken: No action needed Contact made with patient: No, Chart review only. Signature: Carla Schultz RN documented in this encounter [facility] 02-12-2024 Note [facility] 02-11-2024 Note [facility] 02-10-2024 Note [facility] 02-10-2024 Plan of care note Images from the original note were not included. [facility] Outpatient Parenteral Antimicrobial Therapy (OPAT) Start Form Patient Info Patient MRN Patient Name Address Date of [id number] Ann Marie Hill [address] [place] [address] 1940 Start Date 02/10/2024 Physician Group Radha_gwendolyn [...] In-person Address [address] [address] [facility] Work Phone: 02-10-2024 Miscellaneous Notes Images from the original note were not included. [facility] Outpatient Parenteral Antimicrobial Therapy (OPAT) Start Form Patient Info Patient MRN Patient Name Address Date of [id number] Ann Marie Hill [address] [place] [address] 1940 Start Date 02/10/2024 Physician Group Radha_gwendolyn [...] Navarro III, MD In-person Address [address] [place] [id number] documented in this encounter [facility] 02-10-2024 Zackary [facility] 02-09-2024 Note [facility] 02-09-2024 Note HNO ID: [id number] Author: LENA DEE APRN.YAM CURER Service: Orthopaedic Surgery Author Type: Nurse Practitioner Type: Plan of Care Filed: 02/09/2024 09:26 Note Text: Hypokalemia-mild -replace and repeat BMP at facility in 3 days [facility] 02-09-2024 Note [facility] 02-08-2024 Note [facility] 02-08-2024 Note [facility] 02-07-2024 Note [facility] 02-07-2024 Note [facility] 02-06-2024 Note [facility] 02-06-2024 Note [facility] 02-06-2024 Note [facility] 02-05-2024 Note [facility] 02-05-2024 Note [facility] 02-05-2024 Note [facility] 02-04-2024 Note [facility] 02-04-2024 Note [facility] 02-04-2024 Note [facility] 01-27-2024 Note Addended by: ZO BLACKMON on: 01/30/2024 11:34 AM Modules accepted: [facility] 01-27-2024 History of Presen t illness Narrative Images from the original note were not included. [facility] [address] [place] [address] Dept: [phone] Dept Loc: [phone] Subjective Ann Marie Hill is a 83 [...] 01/27/2024 12:25 PM documented in this encounter [facility] 01-27-2024 History of Presen t illness Narrative Images from the original note were not included. [facility] [address] [place] [address] Dept: [phone] Dept Loc: [phone] Subjective Ann Marie Hill is a 83 [...] 01/27/2024 12:25 PM documented in this encounter [facility] 01-27-2024 Miscellaneous Notes Addended by: ZO BLACKMON on: 01/30/2024 11:34 AM Modules accepted: Orders documented in this encounter [facility] 01-27-2024 Note Addended by: ZO BLACKMON on: 01/30/2024 11:34 AM Modules accepted: Orders [facility] 01-26-2024 History of Presen t illness Narrative Images from the original note were not included. [facility] [address] Dept: [phone] Dept Loc: [phone] Subjective Ann Marie Hill is a 83 [...] GAMAL Mohan 01/26/24 documented in this encounter [facility] 01-24-2024 Instructions Mayank Hanson MD - 01/24/2024 11:39 AM EDT Sling is for comfort only, may remove as desired. Weight bearing left upper extremity one pound. Active and active-assist range of motion left shoulder (may practice internal and external rotation and stop if painful; may practice touching face with left hand). No forced passive range of motion. documented in this encounter [facility] 01-24-2024 Note [facility] 01-24-2024 History of Presen t illness Narrative [...] initially managed conservatively; she was transferred to [facility] for placement admission and treated by a [...] 3 - Low documented in this encounter [facility] 01-17-2024 Miscellaneous Notes Images from the original [...] patient? She is willing to come to [facility] to be seen first and then [...] ago, had an appointment with Rafia at [facility] that ended up being canceled. Dtr said pt is living at [facility] and would really like pt to see a provider at the [facility] as the facility is right by [facility] and easier for family to transport pt. If reason for call/escalation is discharge from ED/ER or Hospital, which facility was the patient seen at: [facility] Was an appointment scheduled (Y/N): N Person calling if other than patient: Christos Whitaker Return call to if other than patient: Christos Whitaker Best contact number: [phone] Thank you, Moar Mann January 08, 2024 8:08 AM documented in this encounter [facility] 01-01-2024 Note HNO ID: [id number] Author: AKI COOK MD Service: Hospital Medicine Author Type: Physician Type: Progress Notes Filed: 01/01/2024 07:45 Note Text: DEPARTMENT OF HOSPITAL MEDICINE PROGRESS NOTE SERVICE DATE: 01/01/2024 SERVICE TIME: 7:44 AM Hospital Medicine/Primary Attending: Aki Cook MD NIGHT AND WEEKEND COVERAGE: [employer]: Days: [phone], please page attending physician. Nights: [phone], please page [place] [facility] Night coverage pager [phone]. Subjective INTERVAL HPI: - No complaints this AM - Awaiting precert to [facility] Current Facility-Administered Medications Medication Dose Route [...] -- 12/26/23 0000 activity - mobilize patient (mi,co) VTE Prophylaxis: VTE prophylaxis appropriate Disposition: Extended Care Facility Plan of care discussed with Provider, RN, Patient SIGNATURE: Aki Cook MD PATIENT NAME: Ann Marie Hill DATE: December 31, 2023 TIME: 11:37 AM [facility] 12-31-2023 Note HNO ID: [id number] Author: AKI COOK MD Service: Hospital Medicine Author Type: Physician Type: Progress Notes Filed: 12/31/2023 11:37 Note Text: DEPARTMENT OF HOSPITAL MEDICINE PROGRESS NOTE SERVICE DATE: 12/31/2023 SERVICE TIME: 11:37 AM Hospital Medicine/Primary Attending: Aki Cook MD NIGHT AND WEEKEND COVERAGE: [employer]: Days: [phone], please page attending physician. Nights: [phone], please page [place] [facility] Night coverage pager [phone]. Subjective INTERVAL HPI: - No complaints this [...] -- 12/26/23 0000 activity - mobilize patient (mi,oh) VTE Prophylaxis: VTE prophylaxis appropriate Disposition: Extended Care Facility Plan of care discussed with Provider, RN, Patient SIGNATURE: Aki Cook MD PATIENT NAME: Ann Marie Hill DATE: December 31, 2023 TIME: 11:37 AM [facility] 12-30-2023 Note HNO ID: [id number] Author: AKI COOK MD Service: Hospital Medicine Author Type: Physician Type: Progress Notes Filed: 12/30/2023 08:01 Note Text: DEPARTMENT OF HOSPITAL MEDICINE PROGRESS NOTE SERVICE DATE: 12/30/2023 SERVICE TIME: 7:58 AM Hospital Medicine/Primary Attending: Aki Cook MD NIGHT AND WEEKEND COVERAGE: [place]OVER[employer]: Days: [phone], please page attending physician. Nights: [phone], please page [place] [facility] Night coverage pager [phone]. Subjective INTERVAL HPI: - No complaints this AM - Awaiting precert to [facility] Current Facility-Administered Medications Medication Dose Route [...] DATE: December 30, 2023 TIME: 7:58 AM [facility] 12-29-2023 Note HNO ID: [id number] Author: EVAN DE LA GARZA MD Service: Hospital Medicine Author Type: Physician Type: Progress Notes Filed: 12/29/2023 13:28 Note Text: DEPARTMENT OF HOSPITAL MEDICINE PROGRESS NOTE SERVICE DATE: 12/29/2023 SERVICE TIME: 8:21 AM Hospital Medicine/Primary Attending: Evan De La Garza MD NIGHT AND WEEKEND COVERAGE: [employer]: Nights: [phone], please page [facility] Night coverage pager [phone]. Reason for Admission: Fall with comminuted shoulder [...] prolapse and potential need for follow-up with uro-OIL FIELD WORKER Orthopedics-weightbearing as tolerated with left arm in a sling whenever she is not resting her arm on her lap at rest and to have active range of motion with her elbow and wrist and hand and follow-up check in 10 to 14 days-Call [phone] for appt. Consultants: Dr. Mckinney for orthopedics Dr. Nascimento for OIL FIELD WORKER PROCEDURES: NONE Disposition: Extended Care Facility - [facility] Recent Labs 12/29/23 0712/28/2351512/27/2363512/25/23 1835 WBC 7.97 [...] weeks ago Follow urine culture Daughter requesting OIL FIELD WORKER to see and evaluate her pessary and [...] Patient has multipl (more content not included)... [facility] 12-28-2023 Note HNO ID: [id number] Author: EVAN DE LA GARZA MD Service: Hospital Medicine Author Type: Physician Type: Progress Notes Filed: 12/28/2023 19:51 Note Text: DEPARTMENT OF HOSPITAL MEDICINE PROGRESS NOTE SERVICE DATE: 12/28/2023 SERVICE TIME: 7:23 PM Hospital Medicine/Primary Attending: Evan De La Garza MD NIGHT AND WEEKEND COVERAGE: [employer]: Nights: [phone], please page [place] [facility]ist Night coverage pager [phone]. Reason for Admission: Fall with comminuted shoulder fracture, left INTERVAL HPI: Discussed pessary was for prolapse and potential need for follow-up with uro-OIL FIELD WORKER Orthopedics-weightbearing as tolerated with left arm in a sling whenever she is not resting her arm on her lap at rest and to have active range of motion with her elbow and wrist and hand and follow-up check in 10 to 14 days-Call [phone] for appt. Initial urine culture positive for lactobacillus likely contaminant and repeat culture is in progress CHECK LIST Goal for glucose 100-180 At goal Cultures negative thus far other than those noted:None Vital signs: Reviewed labs Problem list reviewed Medication list reviewed Reviewed new notes Probable discharge- ASSESSMENT/PLAN Consultants: Dr. Mckniney for orthopedics Dr. Nascimento for OIL FIELD WORKER PROCEDURES: NONE Disposition: [facility] Recent Labs 12/28/2351512/27/23 0612/25/23 1835 WBC 9.76 [...] weeks ago Follow urine culture Daughter requesting OIL FIELD WORKER to see and evaluate her pessary and [...] H PRN albut (more content not included)... [facility] 12-27-2023 Note HNO ID: [id number] Author: CARLA SLAUGHTER DO Service: Hospital Medicine Author Type: Physician Type: Progress Notes Filed: 12/27/2023 13:11 Note Text: DEPARTMENT OF HOSPITAL MEDICINE PROGRESS NOTE SERVICE DATE: 12/27/2023 SERVICE TIME: 1:03 PM Hospital Medicine/Primary Attending: Carla Slaughter DO NIGHT AND WEEKEND COVERAGE: [employer]OVER[employer]: Days: [phone], please page attending physician. Nights: [phone], please page [place] [facility] Night coverage pager [phone]. Subjective INTERVAL HPI: seen in am. 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 Daughter requesting OIL FIELD WORKER to see and evaluate her pessary and [...] -- 12/26/23 0000 activity - mobilize patient (mi,co) VTE Prophylaxis: VTE prophylaxis appropriate Disposition: To be determined Plan of care discussed with Provider, RN, Patient Plan communicated to: son at bedside SIGNATURE: Carla Slaughter DO PATIENT NAME: Ann Marie Hill DATE: December 26, 2023 TIME: seen in [facility] 12-27-2023 Miscellaneous Notes Arvin Morataya MD You 17 hours ago (3:00 PM) Correct to both questions You Arvin Morataya MD 18 hours ago (2:08 PM) AM This was for her L humerus fx correct? But no sx? You ----- Message from Arvin Morataya MD sent at 12/25/2023 9:07 PM EDT ----- Can this patient follow-up with me on 12/31 documented in this encounter [facility] 12-27-2023 Note HNO ID: [id number] Author: SUBHASH MADERA, JADA Service: Nursing Author Type: Registered Nurse Type: Nursing Progress Note Filed: 12/26/2023 22:00 Note Text: 2155: Dr. Mckinney in to see pt. [facility] 12-26-2023 Note HNO ID: [id number] Author: CARLA SLAUGHTER DO Service: Hospital Medicine Author Type: Physician Type: Progress Notes Filed: 12/26/2023 16:47 Note Text: DEPARTMENT OF HOSPITAL MEDICINE PROGRESS NOTE SERVICE DATE: 12/26/2023 SERVICE TIME: 4:38 PM Hospital Medicine/Primary Attending: Carla Slaughter DO NIGHT AND WEEKEND COVERAGE: [employer]OVER[employer]: Days: [phone], please page attending physician. Nights: [phone], please page [place] [facility] Night coverage pager [phone]. Subjective INTERVAL HPI: seen in am. Pain [...] weeks ago Follow urine culture Daughter requesting OIL FIELD WORKER to see and evaluate her pessary and [...] -- 12/26/23 0000 activity - mobilize patient (mi,oh) VTE Prophylaxis: VTE prophylaxis appropriate Disposition: To be determined Plan of care discussed with Provider, RN, Patient Plan commun (more content not included)... [facility] 12-26-2023 Note HNO ID: [id number] Author: DAVIS [place] RN Service: Nursing Author Type: Registered Nurse Type: Nursing Progress Note Filed: 12/26/2023 15:08 Note Text: Other: Other: Report given to JADA Chauhan. next shift RN to resume pt care. [facility] 12-25-2023 Miscellaneous Notes RQB. Patient coming to [place] after fall with humerus fracture. Will pursue symptom control and placement. Dr. Mckinney made aware at 9:45 pm over phone with Dr. Goins documented in this encounter [facility] 07-19-2023 Evaluation + Plan note Diagnostic Tests PendingUrine Culture 07/19/23 [facility] 05-22-[address] - 05/22/2023 9:01 AM EDT [facility] FOLLOW UP NUTRITION INSTRUCTIONS Nutrition Follow-up: In [...] Lionel Zero Pascha Recipes -Paleo Hot Chocolate: https://[employer]entech/vegan-hot -chocolate-paleo/ -Keto No Bake Brownie Bites: https://www.[employer]y [employer]/keto -jd-zxzq-efmgukg-bites/ -Whole Food Fudge: https://CampEasy.simfy/easy-raw -hymiz-uehez-zdqar/ 2. Continue focus on the SEAMUS food plan principles previously discussed: -[place]-3 Rich Fish (wild-caught salmon, mackerel, anchovies, sardines, rodrigues): twice per week -Continue grass-fed beef 3-4X/week -Add legumes 3-4X/week Three jamil salad recipe: https://[employer]/class dh-uebyb-uymo-salad/ -Add homemade vinaigrette coleslaw or green salad daily Vinegar based coleslaw: https://www.ECO-SAFE/vine edd-zmkjr-tqjsjcqg/ -Continue nuts/seeds daily I.e. almonds, walnuts, pecans [...] Functional Medicine Team (Open M-F 8am-5pm): 1. Cerniumhart is the BEST form of communication to reach the Functional Medicine Team, see test results and request refills. Please allow 72 business hours for a response. Directions for signing up are included in your New Patient Folder. (Or you can go to [email or web address]) 2. For nutrition related questions or concerns, [employer]t message your physician and include Attn: Shelley Mitchell RD at the top of the message. Thinkr messaging is meant to support implementation of [...] Supplements: Supplements can be ordered from the [facility]'s [facility]'s Online Store: [email or web address]://store.[email or web address]. simfy/#login New patients to the Healthy Living Shop will need to enter the provider code FUNCTIONAL to register their account. documented in this encounter [facility] 05-19-2023 Note HNO ID: [id number] Author: Christiana Montero MD Service: ? Author [...] OmegaGenics EPA-DHA 2400 (High Concentrate EPA/DHA liquid) ([employer] Systems) Take one teaspoon (5 ml) 1 times daily with food UT Synergy ([employer]) antibacterial Take 1 capsule by mouth twice daily. Brain Misael Capsules ([employer]) Take 2 tablets by mouth w MEALS. 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 [...] home testnig. Frustrate (more content not included)... [facility] 05-19-2023 Note HNO ID: [id number] Author: Shelley Mitchell RD Service: ? Author Type: Registered Dietitian Type: Progress Notes Filed: 05/22/2023 9:02 AM Note Text: [facility] Functional Medicine Nutrition Therapy: Follow-Up Assessment (Individual) IN PERSON Accompanied by her spouse today Patient Name: Ann Marie Hill Past Medical History: PAST MEDICAL HISTORY Diagnosis Date Alzheimer disease (HCC) HTN (hypertension) Allergies: Ciprofloxacin, Penicillins, and Sulfa (Sulfonamide Antibiotics) Current Medications/Supplements Current Outpatient Medications on File Prior to Visit Medication Sig PhytoMulti 60s capsules (eZ Systems) Take 2 capsules daily, with meals. Glycine (Pure Encapsulations) Take 1 capsule 3 times daily in divided doses between meals. (1 xhhacql=823ct) B-Complex Plus (Pure Encapsulations) Take 1 capsule by mouth daily with food. Glutathione (Plutus Software) Use 20 pumps daily (1000mg) divided doses [...] OmegaGenics EPA-DHA 2400 (High Concentrate EPA/DHA liquid) (eZ Systems) Take one teaspoon (5 ml) 1 times daily with food [place] Synergy (Sway [employer]) antibacterial Take 1 capsule by mouth twice daily. Neuromag ( [employer] ) 90 ct Take 3 capsules per [...] disturbance (HCC) [G30.1, F02.818] Provider Nutrition Notes:Per wardrobe manager R41.3 Memory change (primary encounter diagnosis) [...] recall updated below; some restaurant meals at [facility] (focuses on 'chicken and vegetables'); endorses fish consumption limited to 2X/month Current Adverse Reactions to Foods: previously avoiding wheat, dairy, sugar, grains; not strict with this now Subjective (12/01/21) Weight has been stable: 118-120 Would like more print outs today vs. Thinkr resources Subjective (08/06/21) -Daughter christos on line: [...] Biochemical and L (more content not included)... [facility] 05-19-2023 Note Education ([facility]) ANN MARIE HILL ([id number]) 1940 F Date Time Provider Department 05/19/23 [...] capsules each day. - PhytoMulti 60s capsules (eZ Systems) Take 2 capsules daily, with meals. - Glycine (Pure Encapsulations) Take 1 capsule 3 times daily in divided doses between meals. (1 [id number]) - B-Complex Plus (Pure Encapsulations) Take 1 capsule by mouth daily with food. - Glutathione (Plutus Software) Use 20 pumps daily (1000mg) divided doses [...] OmegaGenics EPA-DHA 2400 (High Concentrate EPA/DHA liquid) (eZ Systems) Take one teaspoon (5 ml) 1 times daily with food - UT Synergy ([employer]) antibacterial Take 1 capsule by mouth twice daily. - Neuromag ( [employer] ) 90 ct Take 3 capsules per [...] Encounter Status:Closed by SHELLEY MITCHELL on 05/22/23 [facility] 05-19-2023 Instructions Christiana Montero MD - 05/19/2023 4:36 PM EDT FUNCTIONAL MEDICINE PLAN: Keep diet low at this time with sugar / dairy / processed foods. Think of plasminogens for Alzheimer's www.Nimblefish Technologies Synapsin - if wishing to use [...] cheese, dairy, whole grains, and eggs. The PARTS DESIGNER is 4.1 mg per kilogram of body weight or 1.9 mg per pound. Some high cysteine foods include: Soybeans, raw (609 mg per 1/2 cup) Oat bran, dry (541 mg per 1 cup) Pork ham, roasted (492 mg per 4 oz.) Tuna Fish, light, canned in oil, drained (456 mg per 1 cup) Chicken breast, cooked (444 mg per 4 oz.) [place] breast, cooked (436 mg per 4 oz.) Beef angelo, cooked (408 mg per 4 oz.) Oat bran, cooked (217 mg per 1 cup) Egg, whole, raw, fresh (136 mg per 1 large egg) [place] seeds, oil roasted (113 mg per 1 oz.) Cashews, oil-roasted (104 mg per 1 oz.) Peanuts, oil roasted (95 mg per 1 oz.) Maldivian cheese, diced (83 mg per 1 oz.) [...] cofactor for the production of glutathione. The PARTS DESIGNER value to maximize glutathione production in the [...] peppers may be beneficial Functional Nutrition: per rod buster helper Review and implement diet factors recommended through nutritional visit - use your health assistant coach for discussion on how to implement [...] We recommend ordering supplementation online from the [facility] Healthy Living Shop as they are high [...] easy steps: A. Visit the following webpage: [email or web address].[email or web address]/ [employer] Statements on this site have not been [...] For issues with your MRN please call [phone] Stress Management We Cluster Neuro -new technology to use a wearable device to retrain brain and focus on nervous system reduction. To learn more of this technology by going to (rhm-ggz-juros) https://Abelite Design Automation, Inc/ Please look into this Heart Rate Variability [...] one of the Heart Math booklets off ShareSDK that fits your 'go to' emotion - [...] you fully) . --- Polyvagal theory (Connor Echologics) https://www.Alnara Pharmaceuticals/ --- Dynamic Neural Retraining System - (Ketty Christensen) https://retrainingPolyTherics.simfy/a chioie-hopper/ --- Frias Program - (John Frias) Https://www.Anti-Microbial Solutions.simfy/ Finding time for self (no multitasking) at this time to dedicate to breathing / relaxation process. Work on cultivating ted! documented in this encounter [facility] 05-19-2023 History of Presen t [...] OmegaGenics EPA-DHA 2400 (High Concentrate EPA/DHA liquid) (eZ Systems) Take one teaspoon (5 ml) 1 times daily with food UT Synergy ([employer]) antibacterial Take 1 capsule by mouth twice daily. Brain Misael Capsules ([employer]) Take 2 tablets by mouth w MEALS. 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 [...] Phenylacetic,Benzoic, DHPAA Detox Markers Yeast markers Citramalic [place] 3 Index NOrmal Oxidative stress Lipid 9.7 8OHdg 11 Heavy metals Other Oxalate markers (glyceric, glycolic, oxalic) - all elevated Maritza Nutreval Jun 2020 High Need: Mod Need: All B's Amino acids: Malabsorption markers: Bacterial dysbiosis markers: Fungal dysbiosis markers:arabinose 55 Toxin/detox markers: high [place]-3 Index: 4.3 Glutathione level:998 Lipid peroxides:8.5 Toxic [...] processed foods. Think of plasminogens for Alzheimer's www.prodrome.simfy Synapsin - if wishing to use notify [...] cheese, dairy, whole grains, and eggs. The PARTS DESIGNER is 4.1 mg per kilogram of body weight or 1.9 mg per pound. Some high cysteine foods include: Soybeans, raw (609 mg per 1/2 cup) Oat bran, dry (541 mg per 1 cup) Pork ham, roasted (492 mg per 4 oz.) Tuna Fish, light, canned in oil, drained (456 mg per 1 cup) Chicken breast, cooked (444 mg per 4 oz.) [place] breast, cooked (436 mg per 4 oz.) Beef angelo, cooked (408 mg per 4 oz.) Oat bran, cooked (217 mg per 1 cup) Egg, whole, raw, fresh (136 mg per 1 large egg) [place] seeds, oil roasted (113 mg per 1 oz.) Cashews, oil-roasted (104 mg per 1 oz.) Peanuts, oil roasted (95 mg per 1 oz.) Maldivian cheese, diced (83 mg per 1 oz.) [...] cofactor for the production of glutathione. The PARTS DESIGNER value to maximize glutathione production in the [...] peppers may be beneficial Functional Nutrition: per rod buster helper Review and implement diet factors recommended through nutritional visit - use your health assistant coach for discussion on how to implement [...] We recommend ordering supplementation online from the [facility] Healthy Living Shop as they are high [...] easy steps: A. Visit the following webpage: [email or web address]://Miso.Polantis/ [facility] Statements on this site have [...] For issues with your MRN please call [phone] Stress Management We Cluster Neuro -new technology to use a wearable device to retrain brain and focus on nervous system reduction. To learn more of this technology by going to (nbj-ouo-ivahz) https://Abelite Design Automation, Inc/ Please look into this Heart Rate Variability [...] one of the Heart Math booklets off ShareSDK that fits your 'go to' emotion - [...] fully) . --- Polyvagal theory (Connor Ybarra) https://www.Bacterin International Holdings.simfy/ --- Dynamic Neural Retraining System - (Ketty Christensen) https://retrainingNHK World/a chioie-hopper/ --- Frias Program - (John Frias) Https://www.Aftercad Software/ Finding time for self (no multitasking) at this time to dedicate to breathing / relaxation process. Work on cultivating ted! Future Plans (for provider use): I spent a total of 45 minutes on the date of the service which included preparing to see the patient, lwlh-eu-lcwl patient care, completing clinical documentation, obtaining and/or reviewing separately obtained history, performing a medically appropriate examination, and ordering medications, tests, or procedures. Christiana Montero MD documented in this encounter [facility] 05-19-2023 History of Presen t illness Narrative [facility] Nutrition Therapy: Follow-Up [...] daily in divided doses between meals. (1 tsorrou=323kr) B-Complex Plus (Pure Encapsulations) Take 1 capsule by mouth daily with food. Glutathione (Plutus Software) Use 20 pumps daily (1000mg) divided doses [...] OmegaGenics EPA-DHA 2400 (High Concentrate EPA/DHA liquid) (eZ Systems) Take one teaspoon (5 ml) 1 times daily with food UT Synergy ([employer]) antibacterial Take 1 capsule by mouth twice daily. Neuromag ( [employer] ) 90 ct Take 3 capsules per [...] disturbance (HCC) [G30.1, F02.818] Provider Nutrition Notes:Per wardrobe manager R41.3 Memory change (primary encounter diagnosis) [...] recall updated below; some restaurant meals at [facility] (focuses on 'chicken and vegetables'); endorses fish consumption limited to 2X/month Current Adverse Reactions to Foods: previously avoiding wheat, dairy, sugar, grains; not strict with this now Subjective (12/01/21) Weight has been stable: 118-120 Would like more print outs today vs. [address] Subjective (08/06/21) -Daughter christos on line: states [...] Acid Isocitric Acid Succinic Acid Malic Acid [place] Imbalance 3 Toxic Exposure 8 Methylation Imbalance [...] Lionel Zero Pascha Recipes -Paleo Hot Chocolate: https://ZeusseaInfinity Wireless Ltd.simfy/vegan-hot -chocolate-paleo/ -Keto No Bake Brownie Bites: https://www.Academy of Inovation/keto -kl-hibc-jranluv-bites/ -Whole Food Fudge: https://detoxinista.com/easy-raw -hodqd-exjva-gjsfd/ 2. Continue focus on the SEAMUS food plan principles previously discussed: -[place]-3 Rich Fish (wild-caught salmon, mackerel, anchovies, sardines, rodrigues): twice per week -Continue grass-fed beef 3-4X/week -Add legumes 3-4X/week Three jamil salad recipe: https://Owens[place] Grain/class uw-tqnem-cpem-salad/ -Add homemade vinaigrette coleslaw or green salad daily Vinegar based coleslaw: https://www.ECO-SAFE/vine owe-hsbzd-sgxhfksz/ -Continue nuts/seeds daily I.e. almonds, walnuts, pecans [...] idea below) Resources/Educational Materials Provided: sent through [facility] Adherence Potential to Goals/Care Plan: Moderate Nutrition [...] Shelley Mitchell RD documented in this encounter [facility] 04-25-2023 Hospital Discharg e instructions Patient Education 04/25/2023 12:19:15 Urinary Tract Infection, Adult, Uftp-sk-Epaj Urinary Tract Infection, Adult A urinary tract [...] Follow these instructions at home: Medicines Take ahlr-rpv-aazzrxk and prescription medicines only as told by [...] provider. Document Revised: 05/07/2021 Document Reviewed: 05/07/2021 [facility] Patient Education 2022 [employer]. Follow Up Care 08/08/2022 16:24:54 With:ELLEN COOK PA-C, URL Address: [address] [place] [address]. [place] [address] When: Unknown [facility] 02-17-2023 Miscellaneous Notes NUTRITION RESOURCES SENT VIA [email or web address]. Evelyn Samuel LPN February 17, 2023 8:17 AM documented in this encounter [facility] 02-16-2023 Instructions Kasey Hernández, HELADIO - 02/16/2023 2:20 PM EDT [facility] MEDICINE FOLLOW UP NUTRITION INSTRUCTIONS Nutrition Follow-up: In 6 months with Kasey Hernández RD. Your Prescribed Nutrition Plan: Seamus (Gluten-Free) 1. Continue with Seamus Food Plan (Dairy-Free/Gluten-Free), with the following targets: -[place]-3 Rich Fish (wild-caught salmon, mackerel, anchovies, sardines, rodrigues): twice per week -Continue grass-fed beef 3-4X/week -Add legumes 3-4X/week Three jamil salad recipe: https://[place] Grain/class ih-nqmni-tuuw-salad/ -Add homemade vinaigrette coleslaw or green salad daily Vinegar based coleslaw: https://Deerpath Energy.ECO-SAFE/vine xow-afozz-lbqmpbfc/ -Continue nuts/seeds daily I.e. almonds, walnuts, pecans [...] soup idea below) 2. For bread, use Tagoo Brand Base Culture: https://Eduora/ (Keto bread near you in [place]) -Avoid starches, canola oil and sugars in [...] Functional Medicine Team (Open M-F 8am-5pm): 1. Cerniumhart is the BEST form of communication to reach the Functional Medicine Team, see test results and request refills. Please allow 72 business hours for a response. Directions for signing up are included in your New Patient Folder. (Or you can go to [email or web address]) 2. For nutrition related questions or concerns, Thinkr message your physician and include Attn: Kasey Hernández RD at the top of the message. Thinkr messaging is meant to support implementation of [...] Supplements: Supplements can be ordered from the [facility]'s Online Store: [email or web address].[email or web address]/#login New patients to the Healthy Living Shop will need to enter the provider code FUNCTIONAL to register their account. documented in this encounter [facility] 02-15-2023 History of Presen t illness Narrative [facility] Functional [facility] Nutrition Therapy: Follow-Up Assessment (Individual) IN PERSON Patient Name: Ann Marie Hill Past Medical History: PAST MEDICAL HISTORY Diagnosis Date Alzheimer disease (HCC) HTN (hypertension) Allergies: Ciprofloxacin, Penicillins, and Sulfa (Sulfonamide Antibiotics) Current Medications/Supplements Current Outpatient Medications on File Prior to Visit Medication Sig PhytoMulti 60s capsules (eZ Systems) Take 2 capsules daily, with meals. Glycine (Pure Encapsulations) Take 1 capsule 3 times daily in divided doses between meals. (1 eegfmgq=059ik) B-Complex Plus (Pure Encapsulations) Take 1 capsule by mouth daily with food. Glutathione (Plutus Software) Use 20 pumps daily (1000mg) divided doses [...] OmegaGenics EPA-DHA 2400 (High Concentrate EPA/DHA liquid) (eZ Systems) Take one teaspoon (5 ml) 1 times daily with food UT Synergy ([employer]) antibacterial Take 1 capsule by mouth twice daily. Neuromag ( [employer] ) 90 ct Take 3 capsules per [...] Would like more print outs today vs. Thinkr resources Subjective (08/06/21) -Daughter christos on line: [...] Acid Isocitric Acid Succinic Acid Malic Acid [place] Imbalance 3 Toxic Exposure 8 Methylation Imbalance [...] Food Plan (Dairy-Free/Gluten-Free), with the following targets: -[place]-3 Rich Fish (wild-caught salmon, mackerel, anchovies, sardines, rodrigues): twice per week -Continue grass-fed beef 3-4X/week -Add legumes 3-4X/week Three jamil salad recipe: https://Ow[employer] Grain/class no-qyldm-rsqh-salad/ -Add homemade vinaigrette coleslaw or green salad daily Vinegar based coleslaw: https://www.ECO-SAFE/vine bim-kfkcj-fletnouw/ -Continue nuts/seeds daily I.e. almonds, walnuts, pecans [...] bread, use Base Culture Brand Base Culture: https://Eduora/ (Keto bread near you in [place]) -Avoid starches, canola oil and sugars in [...] Referred/Supervised by: Christiana Montero MD Signed by: aKsey Hernández RD documented in this encounter [facility] 02-03-2023 History of Presen t illness [...] OmegaGenics EPA-DHA 2400 (High Concentrate EPA/DHA liquid) (eZ Systems) Take one teaspoon (5 ml) 1 times daily with food UT Synergy ([employer]) antibacterial Take 1 capsule by mouth twice daily. Brain Misael Capsules ([employer]) Take 2 tablets by mouth w MEALS. 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 [...] vitamin deficiency) at this time. Check with rod buster helper on how to improve - stressed importance [...] Phenylacetic,Benzoic, DHPAA Detox Markers Yeast markers Citramalic [place] 3 Index NOrmal Oxidative stress Lipid 9.7 8OHdg 11 Heavy metals Other Oxalate markers (glyceric, glycolic, oxalic) - all elevated Maritza Nutreval Jun 2020 High Need: Mod Need: All B's Amino acids: Malabsorption markers: Bacterial dysbiosis markers: Fungal dysbiosis markers:arabinose 55 Toxin/detox markers: high [place]-3 Index: 4.3 Glutathione level:998 Lipid peroxides:8.5 Toxic [...] , estradiol FUNCTIONAL MEDICINE PLAN: Meet with rod buster helper to review NutrEval (with Christos) due to [...] - use of 2 tablespoons of Galdamez [place] Lecithin Powder twice daily Consider Synapsin (compounded nasal spray) to assist for mood / anxiety - notify if wishing to consider. https://ILD Teleservices/article/m edication-compounding/rg3-synaps nz-txjzm-iajkn-uyups-wdbura-nudn h-eog-zqemclqzt-memory-focus/ Stop the following: Brain Misael Lavella Multi t/d Stop the Functional Nutrition: per rod buster helper Review and implement diet factors recommended through nutritional visit - use your health assistant coach for discussion on how to implement [...] We recommend ordering supplementation online from the [facility] Healthy Living Shop as they are high [...] easy steps: A. Visit the following webpage: https://Miso.Polantis/ Healthy Living Shop Statements on this site [...] For issues with your MRN please call [phone] Stress Management We Cluster Neuro -new technology to use a wearable device to retrain brain and focus on nervous system reduction. To learn more of this technology by going to (idu-cwy-gwcqx) https://Abelite Design Automation, Inc/ Please look into this Heart Rate Variability [...] one of the Heart Math booklets off ShareSDK that fits your 'go to' emotion - [...] fully) . --- Polyvagal theory (Connor Ybarra) https://www.Alnara Pharmaceuticals/ --- Dynamic Neural Retraining System - (Ketty Christensen) https://retrainingtheLifeBlinx.simfy/a chioie-hopper/ --- Frias Program - (John Frias) Https://www.Aftercad Software/ Finding time for self (no multitasking) at this time to dedicate to breathing / relaxation process. Work on cultivating ted! Future Plans (for provider use): I spent a total of 45 minutes on the date of the service which included preparing to see the patient, vjak-kx-wmpl patient care, completing clinical documentation, obtaining and/or reviewing separately obtained history, performing a medically appropriate examination, and ordering medications, tests, or procedures. Christiana Montero MD documented in this encounter [facility] 10-31-2022 History of Presen t illness [...] OmegaGenics EPA-DHA 2400 (High Concentrate EPA/DHA liquid) (eZ Systems) Take one teaspoon (5 ml) 1 times daily with food UT Synergy ([employer]) antibacterial Take 1 capsule by mouth twice daily. Brain Misael Capsules (Sway [employer]) Take 2 tablets by mouth w MEALS. 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 [...] Fungal dysbiosis markers:arabinose 55 Toxin/detox markers: high [place]-3 Index: 4.3 Glutathione level:998 Lipid peroxides:8.5 Toxic [...] daylight exposure (Circadian) rhythm. Functional Nutrition: per rod buster helper Review and implement diet factors recommended through nutritional visit - use your health assistant coach for discussion on how to implement [...] We recommend ordering supplementation online from the [facility] Pristine.io Shop as they are high quality therapeutic supplements. Healthy Living Shop [facility] offers an easy to use, convenient way to order supplementation recommended by your provider through the [facility]. All of the products offered are considered high-quality, and adhere to specific criteria for quality and effectiveness including good manufacturing practices, use of clean products, free of fillers, binders, and other antigens. In addition, we follow third libertarian analysis for independent verification of active ingredients. Get started by following three easy steps: A. Visit the following webpage: https://Miso.Polantis/ FutureGen Capital Statements on this site have not been [...] For issues with your MRN please call [phone] Stress Management We Cluster Neuro -new technology to use a wearable device to retrain brain and focus on nervous system reduction. To learn more of this technology by going to (ynw-ixt-ubloz) https://Abelite Design Automation, Inc/ Please look into this Heart Rate Variability [...] one of the Heart Math booklets off ShareSDK that fits your 'go to' emotion - [...] Dynamic Neural Retraining System - (Ketty Christensen) https://Zervant.com/a lor-grace/ --- Frias Program - (John Frias) Https://www.Anti-Microbial Solutions.simfy/ Finding time for self (no multitasking) at this time to dedicate to breathing / relaxation process. Work on cultivating ted! Future Plans (for provider use): 1. GI Effects? 2. SANNA Metals? I spent a total of 30 minutes on the date of the service which included preparing to see the patient, zxoi-ry-bvik patient care, completing clinical documentation, obtaining and/or reviewing separately obtained history, performing a medically appropriate examination, counseling and educating the patient/family/caregiver, ordering medications, tests, or procedures, and communicating with other HCPs (not separately reported). Christiana Montero MD documented in this encounter [facility] 10-28-2022 Miscellaneous Notes Spoke with patient's regarding NE urine collection for Monday's lab appointment. Evelyn Samuel LPN October 28, 2022 12:17 PM documented in this encounter [facility] 10-06-2022 Note PROCEDURE: XR HIP [...] by: ALEXIS CAAL Date: 2022-10-06 07:37 [facility] 10-06-2022 Note PROCEDURE: XR HIP [...] by: ALEXIS CAAL Date: 2022-10-06 07:37 [facility] 08-08-2022 Hospital Discharg e instructions [...] Treatment for this condition includes: Antibiotic medicine. Kuzt-fdu-grckjqo medicines to treat discomfort. Drinking enough water [...] Follow these instructions at home: Medicines Take tmnk-tph-pjppqvr and prescription medicines only as told by [...] 07/05/2006 Document Revised: 09/12/2019 Document Reviewed: 04/04/2019 [employer] Patient Education 2020 [employer]. Follow Up Care 01/31/2022 15:18:00 With:GENO WATTS, Kunal Heller, URL Address: [facility] [address], [place] [address]- [phone] When:04/08/2023 [facility] [place] 07-25-2022 Instructions Christiana Montero MD - 07/25/2022 12:38 PM EDT FUNCTIONAL MEDICINE PLAN: Mold testing - will review in coming days your recent test to determine if binders are beneficial at this time. I may recommend use of binder (remove of mold) depending on testing. NutrEval - will send to your residence. ([place] blood/urine kit to assess for nutritional stores)---> [...] as nutritional evaluation) . Functional Nutrition: Per Personal Injury Legal Assistant Review and implement diet factors recommended through nutritional visit - use your health assistant coach for discussion on how to implement Supplement Support Review supplements - Based upon your lab assessments we may further recommend you consider additional items to these to supplement. No orders of the defined types were placed in this encounter. REMINDERS: Ordering Supplementation: We recommend ordering supplementation online from the [facility] Living Shop. It is felt these are high quality therapeutic supplements. [employer] (https://Miso.DvineWave) [facility] offers an [...] three easy steps: A. Visit the webpage: [email or web address].[email or web address]/ [employer] Statements on this site have not been [...] For issues with your MRN please call [phone] Stress Management We Cluster Neuro -new technology to use a wearable device to retrain brain and focus on nervous system reduction. To learn more of this technology by going to (rvu-aby-ooirj) https://Abel[employer]/ Behavioral Health Therapist: If I recommended counseling [...] one of the Heart Math booklets off ShareSDK that fits your 'go to' emotion - [...] Eduardo Gordon. (also has an poncho on Bensata / Veristorm) Insight Meditation Timer- (Free)-Great all-around poncho to [...] fully) . --- Polyvagal theory (Connor Ybarra) https://www.stephenNano Defense Solutions.com/ --- Dynamic Neural Retraining System - (Ketty Christensen) https://retrainingthebrain.com/a lor-grace/ --- Frias Program - (John Frias) Https://www.jose rafaelptaNafasi Systems.simfy/ Finding time for yourself (no multitasking) at this time to dedicate to breathing / relaxation process. Work on cultivating ted! You deserve it! documented in this encounter [facility] 07-25-2022 History of Presen t [...] saccharomyces boullardi 2 hrs away from nystatin/candibactin/diflucan. Lgyx-Xmst-XV (SocialTagg) Take 1 capsule, 2 times daily with 4 oz or more of water. Glutathione (Plutus Software) - Liver support/detox Use 8 pumps daily , divided doses through out the day. (2 pumps = 100 mg Glutathione). Work up slowly to the higher dose. B-Complex Plus (Pure Encapsulations) Take 2 capsules by mouth daily with food. Multi t/d 60 ct. (Pure Encapsulations) - multivitamin Take 1 capsule by mouth twice daily with meals. OmegaGenics EPA-DHA 2400 (High Concentrate EPA/DHA liquid) (eZ Systems) Take one teaspoon (5 ml) 1 times daily with food [place] Synergy (S[employer]) antibacterial Take 1 capsule by mouth twice daily. Brain Misael Capsules (S[employer]) Take 2 tablets by mouth w MEALS. Neuromag ( [employer] ) 90 ct Take 3 capsules per [...] NutrEval - will send to your residence. ([facility] blood/urine kit to assess for nutritional stores)---> [...] as nutritional evaluation) . Functional Nutrition: Per Personal Injury Legal Assistant Review and implement diet factors recommended through nutritional visit - use your health assistant coach for discussion on how to implement Supplement Support Review supplements - maintain your B support at this time and Brain Misael only. Wait on Multivitamin until you have completed NutrEval for 2021. REMINDERS: Ordering Supplementation: We recommend ordering supplementation online from the [facility] Shop. It is felt these are high quality therapeutic supplements. [employer] (https://Miso.DvineWave) [facility] offers an easy to use, convenient way to order supplementation recommended by your provider through the [employer]. All of the products offered are considered high-quality, and adhere to specific criteria for quality and effectiveness including good manufacturing practices, use of clean products, free of fillers, binders, and other antigens. In addition, we follow third libertarian analysis for independent verification of active ingredients. Get started by following three easy steps: A. Visit the webpage: [email or web address].Polantis/ [employer] Statements on this site have not been [...] For issues with your MRN please call [phone] Stress Management We Cluster Neuro -new technology to use a wearable device to retrain brain and focus on nervous system reduction. To learn more of this technology by going to (oqg-que-wqyhn) https://[employer]/ Behavioral Health Therapist: If I recommended counseling [...] one of the Heart Math booklets off ShareSDK that fits your 'go to' emotion - [...] fully) . --- Polyvagal theory (Connor Ybarra) https://www.stephenNano Defense Solutions.com/ --- Dynamic Neural Retraining System - (Ketty Christensen) https://retrainingthebrain.com/a lor-grace/ --- Frias Program - (John Frias) Https://www.guptaNafasi Systems.simfy/ Finding time for yourself (no multitasking) at this time to dedicate to breathing / relaxation process. Work on cultivating ted! You deserve it! I spent a total of 60 minutes on the date of the service which included preparing to see the patient, badl-ct-armo patient care, completing clinical documentation, obtaining and/or reviewing separately obtained history, counseling and educating the patient/family/caregiver, ordering medications, tests, or procedures, independently interpreting results (not separately reported), and communicating results to the patient/family/caregiver. Christiana Montero MD documented in this encounter [facility] 03-18-2022 Instructions Evita Calderon MD [...] encounter. I recommend the supplements from the [facility] Living Store Online Store at https://Miso.Okairos. simfy/ as we have thoroughly evaluated the research and use only highest quality supplements. Please use code: functional. Future Plans: Mold Memory Follow up: Please schedule a follow up visit with the following Caregivers: Provider: [address] Montero in person LIFESTYLE PRESCRIPTION Functional Nutrition: Per wardrobe manager Sleep: Sleep goal for most adults [...] Health Coaching: Please consider scheduling with our [facility] health coaches for a phone or virtual visit for accountability, goal setting and help with behavior interchange agent the next 6-8 weeks to be successful with your goals. [phone]. Smart phone apps to begin a meditative [...] on your diet plan discussed with our wardrobe manager, allowing for gentle detoxification and decreasing inflammation - while we are gathering your lab results and combining those with your complete history to formulate a very personalized treatment plan. LAB results: Due to the complexity of the testing performed, we are not able to review labs via [employer] Inc.t or over the phone, but please know, [...] Also make sure to schedule with the wardrobe manager (this will not happen automatically) as [...] appointment. You can access them on the [facility] website and it can be beneficial if you review them prior to your next visit. www.Low Carbon Technology.net. Read about NutrEval if this was ordered. documented in this encounter [facility] 03-18-2022 History of Presen t [...] saccharomyces boullardi 2 hrs away from nystatin/candibactin/diflucan. Ihhj-Qtjh-AD ([employer]) Take 1 capsule, 2 times daily with 4 oz or more of water. Glutathione (Plutus Software) - Liver support/detox Use 8 pumps daily , divided doses through out the day. (2 pumps = 100 mg Glutathione). Work up slowly to the higher dose. B-Complex Plus (Pure Encapsulations) Take 2 capsules by mouth daily with food. Multi t/d 60 ct. (Pure Encapsulations) - multivitamin Take 1 capsule by mouth twice daily with meals. OmegaGenics EPA-DHA 2400 (High Concentrate EPA/DHA liquid) (eZ Systems) Take one teaspoon (5 ml) 1 times daily with food [place] ([employer]) antibacterial Take 1 capsule by mouth twice daily. Brain Misael Capsules ([employer]) Take 2 tablets by mouth w MEALS. Neuromag ( [employer] ) 90 ct Take 3 capsules per [...] 22.31 kg/(m^2). Bioelectrical Impedance Analysis Results by Fareye. Recent Results from: 03/18/22 at 13:34 PM [...] Fungal dysbiosis markers:arabinose 55 Toxin/detox markers: high [place]-3 Index: 4.3 Glutathione level:998 Lipid peroxides:8.5 Toxic [...] encounter. I recommend the supplements from the [facility] Online Store at [email or web address].[email or web address]/ as we have thoroughly evaluated the research and use only highest quality supplements. Please use code: functional. Future Plans: Follow up: Please schedule a follow up visit with the following Caregivers: Provider: [address] Montero in person LIFESTYLE PRESCRIPTION Functional Nutrition: Per wardrobe manager Sleep: Sleep goal for most adults [...] Health Coaching: Please consider scheduling with our [facility] health coaches for a phone or virtual visit for accountability, goal setting and help with behavior interchange agent the next 6-8 weeks to be successful with your goals. [phone]. Smart phone apps to begin a meditative [...] on your diet plan discussed with our wardrobe manager, allowing for gentle detoxification and decreasing inflammation - while we are gathering your lab results and combining those with your complete history to formulate a very personalized treatment plan. LAB results: Due to the complexity of the testing performed, we are not able to review labs via [employer].t or over the phone, but please know, [...] Also make sure to schedule with the wardrobe manager (this will not happen automatically) as [...] appointment. You can access them on the [facility] website and it can be beneficial if you review them prior to your next visit. www.Low Carbon Technology.net. Read about NutrEval if this was ordered. *Evita Calderon MD I spent a total of 30 minutes on the date of the service which included drrk-yk-eaek patient care, completing clinical documentation, obtaining and/or reviewing separately obtained history, performing a medically appropriate examination, counseling and educating the patient/family/caregiver and ordering medications, tests, or procedures. documented in this encounter [facility] 03-02-2022 Instructions EMMA Smalls - [...] in more information, contact our office at [phone]. We are happy to hear that Orestes [...] providers located near your home: Sarah Morataya SCAN COORDINATOR & Adriana Andrews SCAN COORDINATOR [facility], [address] [place] [address]. ([phone]). When there is a diagnosis of dementia, no matter the type, we encourage families to educate themselves, learn communication tips, and learn ways to adjust expectations over time. There are many resources available online. Three excellent resources are: The Alzheimer's Association (web site: alz.org/corado) available 24 hours a day, 7 days per week. Contact: Local: ; Toll free: [phone] We recommend family explore the Alzheimer's Association website to learn more about managing behavioral symptoms. You can click on the following tabs to gather more information on managing specific behaviors. Click on HELP AND SUPPORT -> CAREGIVING -> STAGES AND BEHAVIOR Family Caregiver [place] (web site: Caregiver.org) MABEL Abel-- a secure online solution for quality information, support, and resources for family caregivers. Contact: Toll-free number: [phone] Alzheimers.gov Find Alzheimer disease and related dementias [...] information is needed, please call our social organization professor EMMA Smalls at [phone]. As per our discussion of advanced directives, we understand you have these documents in place which is excellent. We have obtained a copy that will be scanned into your medical record. We would like you to return to [facility] for a follow up visit in 9-12 months. Our office can be reached by calling [phone] Option 1. Sincerely, MD Philomena Hampton RN Tangy Kirtz, RMA Miranda Falso, LISW documented in this encounter [facility] 03-02-2022 Nurse Note Ann Marie Hill is a 81 year old year old right handed woman Accompanied by: spouse. 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 Pt states that she is here for a check-up Vital Signs: BP 115/53 (BP Site: Left Arm, BP Position: Sitting, BP Cuff Size: Regular Adult) Pulse 75 Wt 56.6 kg (124 lb 12.8 oz) BMI 22.83 kg/m Philomena Mondragon RN documented in this encounter [facility] 03-02-2022 History of Presen t illness Narrative Reason for Consult: Alzheimer's dementia I had the pleasure of seeing this 81 year old year old female at the [facility]. The patient is referred by Evita Calderon [address] [place] [id number] Patient is accompanied by and information obtained [...] are local; other two sons live in [place] and [place]). Housing: Lives with spouse Pt is occasionally left home alone if she is sleeping Agencies involved: Caregiver from [facility] visits once per week to stay with the pt while spouse runs errands. [facility] friends also assist. ADL'S: Independent with dressing, [...] saccharomyces boullardi 2 hrs away from nystatin/candibactin/diflucan. Pwyh-Aprf-UA (SocialTagg) Take 1 capsule, 2 times daily with 4 oz or more of water. Glutathione (Plutus Software) - Liver support/detox Use 8 pumps daily , divided doses through out the day. (2 pumps = 100 mg Glutathione). Work up slowly to the higher dose. B-Complex Plus (Pure Encapsulations) Take 2 capsules by mouth daily with food. Multi t/d 60 ct. (Pure Encapsulations) - multivitamin Take 1 capsule by mouth twice daily with meals. OmegaGenics EPA-DHA 2400 (High Concentrate EPA/DHA liquid) (eZ Systems) Take one teaspoon (5 ml) 1 times daily with food UT Synergy ([employer]) antibacterial Take 1 capsule by mouth twice daily. Brain Misael Capsules (Sway [employer]) Take 2 tablets by mouth w MEALS. Neuromag ( [employer] ) 90 ct Take 3 capsules per [...] which included preparing to see the patient, mavw-xt-zgdt patient care, performing a medically appropriate examination, completing clinical documentation, and on counseling/ eductaing the patient and the family. Han Britton MD documented in this encounter [facility] 01-31-2022 Hospital Discharg e instructions [...] reconstructed. Follow these instructions at home: Take cleo-emq-rzgzshu and prescription medicines only as told by [...] 10/21/2016 Document Revised: 05/08/2019 Document Reviewed: 05/08/2019 [employer] Patient Education 2020 [employer]. Follow Up Care 08/02/2021 15:26:51 With:GENO WATTS, Kunal Heller, URL Address: [facility] [address] [place] [address]- [phone] When: Unknown [facility] Evaluation + Plan note Future Appointments Appointment Date:08/08/2022 02:45:00 PM Scheduled Provider:Kunal LORA MD Location:[facility] Appointment Type:URO Office Visit [facility] Evaluation + Plan note Future Appointments Appointment Date:08/10/2022 08:45:00 AM Scheduled Provider: Location:[facility] Appointment Type:URO Nurse Visit Appointment Date:04/17/2023 02:30:00 PM Scheduled Provider:Kunal LORA MD Location:[facility] Appointment Type:URO Office Visit [facility] Evaluation + Plan note Future Appointments Appointment Date:04/17/2023 02:30:00 PM Scheduled Provider:Kunal LORA MD Location:[facility] Appointment Type:URO Office Visit [facility] Evaluation + Plan note Future Appointments Appointment Date:04/24/2023 02:15:00 PM Scheduled Provider:Kunal LORA MD Location:[facility] Appointment Type:URO Office Visit 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 Alzheimer's dementia with behavioral disturbance, unspecified timing of dementia onset documented in this encounter [facility] note* Diagnosis Memory change- Primary Memory loss Subclinical hypothyroidism Other specified acquired hypothyroidism Hypertension, unspecified type Hyperlipidemia, unspecified hyperlipidemia type 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 Impaired nutrient utilization Sleepiness Other alteration of consciousness Mold exposure Contact with and (suspected) exposure to mold On statin therapy On beta alexandria at home documented in this encounter [facility] note* Diagnosis Memory change- Primary Memory loss Subclinical hypothyroidism Other specified acquired hypothyroidism 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 Impaired nutrient utilization 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) [facility]* Diagnosis 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 Unspecified vitamin B deficiency Chemical exposure Contact with and (suspected) exposure to other potentially hazardous chemicals Poor diet Unspecified nutritional deficiency Impaired nutrient utilization [facility]* Diagnosis 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 Unspecified vitamin B deficiency Poor diet Unspecified nutritional deficiency Dietary counseling and surveillance Dietary surveillance and counseling [facility]* Diagnosis Memory change- Primary Memory loss Sundowning Reactive confusion Poor diet Unspecified nutritional deficiency Chemical exposure Contact with and (suspected) exposure to other potentially hazardous chemicals [facility]* Diagnosis 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 Sundowning Reactive confusion Dietary counseling and surveillance Dietary surveillance and counseling [facility]* Diagnosis Carotid stenosis, bilateral Occlusion and stenosis of carotid artery without mention of cerebral infarction Benign hypertension Essential hypertension, benign documented in this encounter [facility] Work Phone: Evaluation note* Diagnosis Carotid stenosis, bilateral Occlusion and stenosis of carotid artery without mention of cerebral infarction Benign hypertension Essential hypertension, benign documented in this encounter [facility] Work Phone: Evaluation note* Diagnosis Other closed displaced fracture of proximal end of left humerus, initial encounter- Primary documented in this encounter [facility] note* Diagnosis Dysuria- Primary [facility] Diagnosis Acute cystitis without hematuria- Primary Dysuria documented in this encounter [facility] note* Diagnosis Acute cystitis without hematuria- Primary Dysuria [facility] Diagnosis Female genital prolapse, unspecified type- Primary Incomplete bladder emptying Recurrent UTI Urinary tract infection, site not specified documented in this encounter [facility] note* Diagnosis History of left hip hemiarthroplasty- Primary Other closed displaced fracture of proximal end of left humerus with routine healing, subsequent encounter documented in this encounter [facility] note* Diagnosis Abnormal finding of diagnostic imaging- Primary Other nonspecific (abnormal) findings on radiological and other examinations of body structure [facility] Diagnosis Other closed displaced fracture of proximal end of left humerus with routine healing, subsequent encounter- Primary History of left hip hemiarthroplasty [facility]* Patient is here [...] reviewed with her her recent lab work -[facility] DO Work Phone: History of Present [...] me change in cardiac status or symptoms -[facility] [address] DO Work Phone: History of Present [...] try to retrieve her recent lab work -[facility] 250 DO Work Phone: Hospital course Narrative No data available for this section [facility] Hospital Discharge instructions No data available for this section [facility] progress note No data available for this section [facility] reason for referral (narrative)* Diagnostic Procedure Only (Routine) - Pending Review Specialty Diagnoses / Procedures Referred By Toña cedillo Referred To Contact XR IMAGING Diagnoses Other closed displaced fracture of proximal end of left humerus, initial encounter Procedures XR SHOULDER LIMITED 2V AP/TRUE AP LEFT RADEX SHOULDER COMPLETE MINIMUM 2 VIEWS Mayank Hanson MD [address] [place] [address] [place] [address] Referral ID Status Reason Start Date Expiration Date Visits Requested Visits Authorized [id number] Pending Review Auto-Generat ed Referral 01/24/2024 02/22/2025 1 1 [facility] for referral (narrative)* Diagnostic Procedure Only (Routine) - Pending Review Specialty Diagnoses / Procedures Referred By Toña cedillo Referred To Contact XR IMAGING Diagnoses Other closed displaced fracture of proximal end of left humerus with routine healing, subsequent encounter Procedures XR SHOULDER LIMITED 2V AP/TRUE AP LEFT RADEX SHOULDER COMPLETE MINIMUM 2 VIEWS Mayank Hansno MD [address] [place] [address] [place] [address] Referral ID Status Reason Start Date Expiration Date Visits Requested Visits Authorized [id number] Pending Review Auto-Generat ed Referral 02/21/2024 03/22/2025 1 1 [facility] Summary Purpose Family History No Family History [...] FoundDocuments on File Type Date Recorded 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 Expl anation Advance Directive(s) 03/02/2022 2:05 PM [place] torres Directive Documents on File Type Date Recorded 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 Expl 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 Advance Directive(s) 03/02/2022 2:05 PM [place] torres Directive Date Activated Date Inactivated Comments 12/26/2023 12:01 AM Question Answer Comments DNR Order Discussed With: Surrogate Decision Renny er Surrogate Decision Maker Name: Daughter Christos Date Activated Date Inactivated Comments 12/25/2023 11:54 PM 12/26/2023 12:01 AM Question Answer Comments Full Code Order Discussed With: Patient Documents on File Type Date Recorded 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 Expl 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 Advance Directive(s) 01/03/2024 2:21 PM Advance Directive(s) 03/02/2022 2:05 PM [place] torres Directive Date Activated Date Inactivated Comments 12/26/2023 12:01 AM 01/01/2024 8:27 PM Documents on File Type Date Recorded 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 Expl anation Advance Directive(s) 01/03/2024 2:21 PM Advance Directive(s) 03/02/2022 2:05 PM [place] tor[place] Directive Date Activated Date Inactivated Comments 12/26/2023 12:01 AM 01/01/2024 8:27 PM Question Answer Comments DNR Order Discussed With: Surrogate Decision [facility] Surrogate Decision Maker Name: Sherman Sarabia Date Activated Date Inactivated Comments 12/25/2023 11:54 PM 12/26/2023 12:01 AM Question Answer Comments Full Code Order Discussed With: Patient Date Activated Date Inactivated Comments 02/03/2024 5:01 PM Question Answer Comments DNR Order Discussed With: Surrogate Decision [facility] er Date Activated Date Inactivated Comments 12/26/2023 12:01 AM 01/01/2024 8:27 PM Question Answer Comments DNR Order Discussed With: Surrogate Decision [facility] Surrogate Decision Maker Name: Sherman Sarabia Date Activated Date Inactivated Comments 12/25/2023 11:54 PM 12/26/2023 12:01 AM Question Answer Comments Full Code Order Discussed With: Patient Date Activated Date Inactivated Comments 02/03/2024 5:01 PM 02/12/2024 9:08 PM Date Activated Date Inactivated Comments 02/03/2024 5:01 PM 02/12/2024 9:08 PM Question Answer Comments DNR Order Discussed With: Surrogate Decision [facility] er Date Activated Date Inactivated Comments 12/26/2023 12:01 AM 01/01/2024 8:27 PM Question Answer Comments DNR Order Discussed With: Surrogate Decision [facility] Surrogate Decision Maker Name: Sherman Sarabia Date [...] duplex bilateral Mary Anne Snow MD [address] [address] Referral ID Status Reason Start Date Expiration Date Visits Requested Visits Authorized [id number] Authorized Perform Procedure 06/25/2023 12/22/2023 1 1 Specialty Diagnoses / Procedures Referred By Contac t Referred To Contact Psychiatry / ADULT PSYCHIATRY Diagnoses Alzheimer's dementia with behavioral disturbance, unspecified timing of dementia onset Procedures CONSULT TO PSYCHIATRY OFFICE/OUTPATIENT [facility] 60-74 MINUTES Evita Calderon MD [address] [place] [address] Hemal Hopper MD [address] [place] [address] Referral ID Status Reason Start Date Expiration Date Visits Requested Visits Authorized [id number] Pending Review PCP Requested Referral 06/17/2022 06/17/2023 1 1 Specialty Diagnoses / Procedures Referred By Contac t Referred To Contact [facility] Diagnoses Cognitive communication deficit Procedures CONSULT TO SPEECH THERAPY OFFICE/OUTPATIENT [facility] 60-74 MINUTES Han Britton MD [facility] [place] [address] [facility] [place] [address] [place] [id number] Referral ID Status Reason Start Date Expiration Date Visits Requested Visits Authorized [id number] Pending Review Auto-Generat ed Referral 03/02/2022 03/02/2023 1 1 Additional Source Comments INFORMATION SOURCE (unrecogn ized section and content) DATE CREATED AUTHOR 04/03/2018 [facility] DATE CREATED AUTHOR AUTHOR'S ORGANIZ ATION 06/25/2020 [facility] DATE CREATED AUTHOR AUTHOR'S ORGANIZ ATION 11/07/2022 [facility] DATE CREATED AUTHOR AUTHOR'S ORGANIZ ATION 06/07/2023 [facility] DATE CREATED AUTHOR AUTHOR'S ORGANIZ ATION 06/07/2023 [facility] DATE CREATED AUTHOR AUTHOR'S ORGANIZ ATION 07/23/2023 [facility] DATE CREATED AUTHOR AUTHOR'S ORGANIZ ATION 09/22/2023 [facility] DATE CREATED AUTHOR AUTHOR'S ORGANIZ ATION 01/12/2024 [facility] DATE CREATED AUTHOR AUTHOR'S ORGANIZ ATION 01/30/2024 [facility] DATE CREATED AUTHOR AUTHOR'S ORGANIZ ATION 02/29/2024 [facility] DATE CREATED AUTHOR AUTHOR'S ORGANIZ ATION 04/28/2024 [facility] Source Comments (unrecognize d section and content) In the event this informatio n is protected by the Federal Confidentiality of Alcohol and Drug Abuse Patient Records regulations: The Federal rules restrict any use of the information to criminally investigate or prosecute any alcohol or drug abuse patient.[facility] the event this information is protected by the Federal Confidentiality of Alcohol and Drug Abuse Patient Records regulations: The Federal rules restrict any use of the information to criminally investigate or prosecute any alcohol or drug abuse patient.[facility] CenterIn the event this information is protected by the Federal Confidentiality of Alcohol and Drug Abuse Patient Records regulations: The Federal rules restrict any use of the information to criminally investigate or prosecute any alcohol or drug abuse patient.[facility] CenterIn the event this information is protected by the Federal Confidentiality of Alcohol and Drug Abuse Patient Records regulations: The Federal rules restrict any use of the information to criminally investigate or prosecute any alcohol or drug abuse patient.[facility] CenterIn the event this information is protected by the Federal Confidentiality of Alcohol and Drug Abuse Patient Records regulations: The Federal rules restrict any use of the information to criminally investigate or prosecute any alcohol or drug abuse patient.[facility] CenterIn the event this information is protected by the Federal Confidentiality of Alcohol and Drug Abuse Patient Records regulations: The Federal rules restrict any use of the information to criminally investigate or prosecute any alcohol or drug abuse patient.[facility] CenterIn the event this information is protected by the Federal Confidentiality of Alcohol and Drug Abuse Patient Records regulations: The Federal rules restrict any use of the information to criminally investigate or prosecute any alcohol or drug abuse patient.[facility] CenterIn the event this information is protected by the Federal Confidentiality of Alcohol and Drug Abuse Patient Records regulations: The Federal rules restrict any use of the information to criminally investigate or prosecute any alcohol or drug abuse patient.[facility] CenterIn the event this information is protected by the Federal Confidentiality of Alcohol and Drug Abuse Patient Records regulations: The Federal rules restrict any use of the information to criminally investigate or prosecute any alcohol or drug abuse patient.[facility] CenterIn the event this information is protected by the Federal Confidentiality of Alcohol and Drug Abuse Patient Records regulations: The Federal rules restrict any use of the information to criminally investigate or prosecute any alcohol or drug abuse patient.[facility] CenterIn the event this information is protected by the Federal Confidentiality of Alcohol and Drug Abuse Patient Records regulations: The Federal rules restrict any use of the information to criminally investigate or prosecute any alcohol or drug abuse patient.[facility] CenterIn the event this information is protected by the Federal Confidentiality of Alcohol and Drug Abuse Patient Records regulations: The Federal rules restrict any use of the information to criminally investigate or prosecute any alcohol or drug abuse patient.[facility] CenterIn the event this information is protected by the Federal Confidentiality of Alcohol and Drug Abuse Patient Records regulations: The Federal rules restrict any use of the information to criminally investigate or prosecute any alcohol or drug abuse patient.[facility] CenterIn the event this information is protected by the Federal Confidentiality of Alcohol and Drug Abuse Patient Records regulations: The Federal rules restrict any use of the information to criminally investigate or prosecute any alcohol or drug abuse patient.[facility] CenterIn the event this information is protected by the Federal Confidentiality of Alcohol and Drug Abuse Patient Records regulations: The Federal rules restrict any use of the information to criminally investigate or prosecute any alcohol or drug abuse patient.[facility] CenterIn the event this information is protected by the Federal Confidentiality of Alcohol and Drug Abuse Patient Records regulations: The Federal rules restrict any use of the information to criminally investigate or prosecute any alcohol or drug abuse patient.[facility] CenterIn the event this information is protected by the Federal Confidentiality of Alcohol and Drug Abuse Patient Records regulations: The Federal rules restrict any use of the information to criminally investigate or prosecute any alcohol or drug abuse patient.[facility] CenterIn the event this information is protected by the Federal Confidentiality of Alcohol and Drug Abuse Patient Records regulations: The Federal rules restrict any use of the information to criminally investigate or prosecute any alcohol or drug abuse patient.[facility] CenterIn the event this information is protected by the Federal Confidentiality of Alcohol and Drug Abuse Patient Records regulations: The Federal rules restrict any use of the information to criminally investigate or prosecute any alcohol or drug abuse patient.[facility] CenterIn the event this information is protected by the Federal Confidentiality of Alcohol and Drug Abuse Patient Records regulations: The Federal rules restrict any use of the information to criminally investigate or prosecute any alcohol or drug abuse patient.[facility] CenterIn the event this information is protected by the Federal Confidentiality of Alcohol and Drug Abuse Patient Records regulations: The Federal rules restrict any use of the information to criminally investigate or prosecute any alcohol or drug abuse patient.[facility] CenterIn the event this information is protected by the Federal Confidentiality of Alcohol and Drug Abuse Patient Records regulations: The Federal rules restrict any use of the information to criminally investigate or prosecute any alcohol or drug abuse patient.[facility] CenterIn the event this information is protected by the Federal Confidentiality of Alcohol and Drug Abuse Patient Records regulations: The Federal rules restrict any use of the information to criminally investigate or prosecute any alcohol or drug abuse patient.[facility] CenterIn the event this information is protected by the Federal Confidentiality of Alcohol and Drug Abuse Patient Records regulations: The Federal rules restrict any use of the information to criminally investigate or prosecute any alcohol or drug abuse patient.[facility] CenterIn the event this information is protected by the Federal Confidentiality of Alcohol and Drug Abuse Patient Records regulations: The Federal rules restrict any use of the information to criminally investigate or prosecute any alcohol or drug abuse patient.[facility] CenterIn the event this information is protected by the Federal Confidentiality of Alcohol and Drug Abuse Patient Records regulations: The Federal rules restrict any use of the information to criminally investigate or prosecute any alcohol or drug abuse patient.[facility] CenterIn the event this information is protected by the Federal Confidentiality of Alcohol and Drug Abuse Patient Records regulations: The Federal rules restrict any use of the information to criminally investigate or prosecute any alcohol or drug abuse patient.[facility] CenterIn the event this information is protected by the Federal Confidentiality of Alcohol and Drug Abuse Patient Records regulations: The Federal rules restrict any use of the information to criminally investigate or prosecute any alcohol or drug abuse patient.[facility] CenterIn the event this information is protected by the Federal Confidentiality of Alcohol and Drug Abuse Patient Records regulations: The Federal rules restrict any use of the information to criminally investigate or prosecute any alcohol or drug abuse patient.[facility] CenterIn the event this information is protected by the Federal Confidentiality of Alcohol and Drug Abuse Patient Records regulations: The Federal rules restrict any use of the information to criminally investigate or prosecute any alcohol or drug abuse patient.[facility] Teams (unrecognized sec tion and content) Lot Attendant Relationship Specialty Start Date End Date Savana Prater MD [address] [id number] PCP - General Family Practice 07/15/20 Lot Attendant Relationship Specialty Start Date End Date Savana Prater MD [address] [place] [address] PCP - General Family Practice 07/15/20 Lot Attendant Relationship Specialty Start Date End Date Savana Prater MD [address] [id number] PCP - General Family Practice 07/15/20 Lot Attendant Relationship Specialty Start Date End Date Savana Prater MD [address] [place] [address] PCP - General Family Practice 07/15/20 Lot Attendant Relationship Specialty Start Date End Date Savana Prater MD [address] [place] [address] PCP - General Family Medicine 07/15/20 Lot Attendant Relationship Specialty Start Date End Date Savana Prater MD [address] [place] [address] PCP - General Family Medicine 07/15/20 Lot Attendant Relationship Specialty Start Date End Date Savana Prater MD [address] [place] [address] PCP - General Family Medicine 07/15/20 Lot Attendant Relationship Specialty Start Date End Date Savana Prater MD [address] [place] [address] PCP - General Family Medicine 07/15/20 Lot Attendant Relationship Specialty Start Date End Date Savana Prater MD [address] [place] [address] PCP - General Family Medicine 07/15/20 Lot Attendant Relationship Specialty Start Date End Date Savana Prater MD PCP - General Family Medicine 07/15/20 Lot Attendant Relationship Specialty Start Date End Date Savana Prater MD PCP - General Family Medicine 07/15/20 Lot Attendant Relationship Specialty Start Date End Date Savana Prater MD PCP - General Family Medicine 07/15/20 Lot Attendant Relationship Specialty Start Date End Date Savana Prater MD PCP - General Family Medicine 07/15/20 Lot Attendant Relationship Specialty Start Date End Date Savana Prater MD PCP - General Family Medicine 07/15/20 Lot Attendant Relationship Specialty Start Date End Date Savana Prater MD PCP - General Family Medicine 07/15/20 Lot Attendant Relationship Specialty Start Date End Date Savana Prater MD PCP - General Family Medicine 07/15/20 Lot Attendant Relationship Specialty Start Date End Date Savana Prater MD [address] [place] [address] PCP - General 09/11/19 Lot Attendant Relationship Specialty Start Date End Date Savana Prater MD [address] [place] [address] PCP - General 09/11/19 Lot Attendant Relationship Specialty Start Date End Date Savana Prater MD PCP - General Family Medicine 07/15/20 12/25/23 Lot Attendant Relationship Specialty Start Date End Date Festus Grimes MD [address] [facility] [address] [place] [address] PCP - General Internal Medicine 12/26/23 Lot Attendant Relationship Specialty Start Date End Date Festus Grimes MD [address] [facility] [address] [place] [address] PCP - General Internal Medicine 12/26/23 Lot Attendant Relationship Specialty Start Date End Date Festus Grimes MD [address] [facility] [address] [place] [address] PCP - General Internal Medicine 12/26/23 Lot Attendant Relationship Specialty Start Date End Date Savana Prater MD [address] [place] [address] PCP - General Family Medicine 02/05/24 Torri Lambert, JADA Specialty [facility] 02/04/2403/12/24 Lot Attendant Relationship Specialty Start Date End Date Savana Prater MD [address] [place] [address] PCP - General Family Medicine 02/05/24 Torri Lambert, RN Specialty [facility] 02/04/2403/12/24 Lot Attendant Relationship Specialty Start Date End Date Savana Prater MD [address] [id number] PCP - General Family Medicine 02/05/24 Torri Lambert, RN Specialty [facility] 02/04/2403/12/24 Lot Attendant Relationship Specialty Start Date End Date Savana Prater MD [address] [id number] PCP - General Family Medicine 02/05/24 Torri Lambert, RN Specialty [facility] 02/04/2403/12/24 Lot Attendant Relationship Specialty Start Date End Date Savana Prater MD [address] [place] [address] PCP - General Family Medicine 02/05/24 Torri Lambert, RN Specialty [facility] 02/04/2403/12/24 Lot Attendant Relationship Specialty Start Date End Date Savana Prater MD [address] [id number] PCP - General Family Medicine 02/05/24 Reason for Visit (unrecogniz ed section and content) Reason Comments New Patient Evaluation Specialty Diagnoses / Procedures Referred By Contac t Referred To Contact Neurology / NEUROLOGY Diagnoses Alzheimer's dementia with behavioral disturbance, unspecified timing of dementia onset (HCC) Procedures CONSULT TO NEUROLOGY NEW PATIENT VISIT LEVEL 5 Evita Calderon MD [address] [place] [address] Neur Continuity Main [address] [id number] Referral ID Status Reason Start Date Expiration Date Visits Requested Visits Authorized [id number] Pending Review PCP Requested Referral 04/01/2021 04/01/2022 1 1 Reason Comments Established Patient Reason Comments Established Patient Memory Loss New Patient Reason Comments Patient Question Reason Comments Appointment Specialty Diagnoses / Procedures Referred By Contac t Referred To Contact Cardiology Diagnoses Carotid stenosis, bilateral Benign hypertension Procedures Vascular US carotid artery duplex bilateral Mary Anne Snow MD [address] [facility] [address], [address] [address] Referral ID Status Reason Start Date Expiration Date Visits Requested Visits Authorized [id number] Authorized Perform Procedure 06/25/2023 12/22/2023 1 1 [...] BE BASED ON THE PRIMARY CLINICAL RECORDS. [email or web address] provides no warranty or guarantee of the accuracy or completeness of information in this document.
[2024-05-08 06:35] LABS: Basophils Percent Auto 0.2 % (0.2-2.0); Eosinophils Absolute Auto 0.4 10^3/uL (0.0-0.7); Eosinophils Percent Auto 4.1 % (0.9-7.0); Hemoglobin 12.1 g/dL (12.0-16.0); Immature Granulocytes Abs Auto 0.01 10^3/uL (0.00-0.03); Immature Granulocytes Pct Auto 0.1 % (0.0-0.5); Lymphocytes Absolute Auto 2.3 10^3/uL (1.2-3.8); Lymphocytes Percent Auto 27.4 % (20.5-60.0); Mean Corpuscular HGB Conc 31.8 g/dL (29.9-35.2); Mean Corpuscular Volume 94.3 fL (81.0-99.0); Mean Platelet Volume 9.3 fL (9.5-13.5); Monocytes Absolute Auto 0.9 10^3/uL (0.3-0.8); Monocytes Percent Auto 10.6 % (1.7-12.0); Neutrophils Absolute Auto 4.9 10^3/uL (1.4-6.5); Neutrophils Percent Auto 57.6 % (43.0-75.0); Platelet Count 370 10^3/uL (150-450); Red Blood Count 4.03 10^6/uL (4.20-5.40); Red Cell Distribution Width 14.1 % (11.0-15.0); White Blood Count 8.5 10^3/uL (4.0-11.0)
[2024-05-08 07:13] LABS: Alanine Aminotransferase 51 U/L (14-59); Albumin Globulin Ratio 0.7; Albumin Level 3.2 g/dL (3.4-5.0); Alkaline Phosphatase 162 U/L (46-116); Anion Gap 15.2; Aspartate Amino Transferase 27 U/L (15-37); BUN Creatinine Ratio 20.7; Bilirubin Total 0.6 mg/dL (0.2-1.0); Calcium 9.2 mg/dL (8.5-10.1); Carbon Dioxide 26.1 mmol/L (21.0-32.0); Chloride 104 mmol/L (98-107); Cholesterol 165 mg/dL (<=200); Estimated GFR (African America >60 (>=60); Estimated GFR (Non-African Ame >60 (>=60); Globulin 4.5 g/dL; Glucose 102 mg/dL (74-106); HDL Cholesterol 55 mg/dL (40-60); LDL Cholesterol Calculated 90.2 mg/dL; Potassium 3.3 mmol/L (3.5-5.1); Sodium 142 mmol/L (136-145); Total Protein 7.7 g/dL (6.4-8.2); Triglycerides 99 mg/dL (<=150); VLDL CHOLESTEROL 19.8 mg/dL
== END 2024-05-08 04:43 | disposition home or self-care (01) ==
LOC: LAB 04:42
PROVIDERS: PCP Family Medicine; Visit Provider Nurse Practitioner Adult Health
DX: R39.15 Urgency of urination (principal); R30.0 Dysuria; R41.0 Disorientation, unspecified; I10 Essential (primary) hypertension; E78.5 Hyperlipidemia, unspecified; E55.9 Vitamin D deficiency, unspecified
CPT/HCPCS: 36415; 80053; 80061; 82306; 85025

== ENCOUNTER 2024-07-25 07:55 | Outpatient (RCR) | payer MEDICARE, SELFPAY ==
[2024-07-25 11:11] LABS: Anion Gap 15.7; BUN Creatinine Ratio 19.1; Calcium 9.7 mg/dL (8.5-10.1); Carbon Dioxide 27.5 mmol/L (21.0-32.0); Chloride 103 mmol/L (98-107); Estimated GFR (African America >60 (>=60 mL/min/1.73m^2); Estimated GFR (Non-African Ame >60 (>=60 mL/min/1.73m^2); Glucose 133 mg/dL (74-106); Potassium 4.2 mmol/L (3.5-5.1); Sodium 142 mmol/L (136-145)
== END 2024-10-08 23:59 | disposition home or self-care (01) ==
LOC: LAB 07:55
PROVIDERS: PCP Family Medicine; Visit Provider Nurse Practitioner Adult Health
DX: R60.0 Localized edema (principal)
CPT/HCPCS: 36415; 80048

== ENCOUNTER 2024-08-15 15:08 | Outpatient (OUT) | payer MEDICARE, SELFPAY ==
--- OUTSIDE RECORDS SUMMARY | 2024-08-15 15:31 | XMS_ITS | CCD ---
Author Organization [facility] Care Team Providers Care Mail Order Clerk Name Role Phone MARY ANNE SNOW Unavailable Unavailable MARY ANNE SNOW Unavailable Unavailable Savana Prater Unavailable Unavailable Unavailable Savana Prater MD Primary Care Provider [phone] Savana Prater Primary Care Physician Savana Prater MD Primary Care Provider [phone] Savana Prater MD Primary Care Provider [phone] DR SAVANA PRATER Admitting Unavailable HOY, DR [...] Unavailable Savana Prater MD Primary Care Provider [phone] Mary Anne Snow Referring Unavaila sera Snow, Dr. Zhao Attending Unavaila Dr. Savana Muniz Primary Care Unavail able ELLEN COOK Admitting Unavailable ELLEN COOK Attending Unavailable ELLEN COOK Attending Unavailable Kunla LORA Attending Unavailable Kunal LORA Attending Unavailable Leonor Phillips Attending Unavailable Kunal LORA Attending Unavailable Savana Prater MD Primary Care Provider [phone] MAUREEN BALLESTEROS Attending Unavailable MAUREEN BALLESTEROS Referring Unavailable Savana Prater MD Primary Care Provider [phone] Festus Grimes MD Primary Care Provider ARAMIS NASCIMENTO Consulting Unavailable SAVANA PRATER Primary Care Unavailable ARVIN GOINS Admitting Unavailable AKI COOK Attending Unavailable Unavailable Primary Care Provider UnavailSUSI Floyd Attending Unavailable ZO BLACKMON Attending Unavailable Torri Lambert RN Unavailable Unavailable Savana Prater MD Primary Care Provider [phone] HELIO GOFF Attending Unavailable SAVANA PRATER Primary Care Unavailable SAVANA PRATER Primary Care Unavailable CHRISTIANA MONTERO Attending Unavailable SHELLEY MITCHELL Attending Unavailable SAVANA PRATER Primary Care Unavailable SAVANA PRATER Primary Care Unavailable ARAMIS JIMENES Attending Unavailable FESTUS GRIMES Primary Care Unavailable MELITON SANCHEZ Attending Unavailable MAYANK HANSON Attending SAVANA Harris Primary Care Unavailable MAYANK HANSON Attending SAVANA Harris Primary Care Unavailable MAYANK HANSON Attending FESTUS Antonio Primary Care Unavailable SAVANA PRATER Primary Care Unavailable FESTUS GRIMES Primary Care Unavailable Allergies Allergy Classification Reported Allergen(s) Allergy Type Date of Onset Reaction(s) Facility (16 sources) Penicillins; Translations: [Penicillins] Allergy to drug (finding) 09-03-20 13 Unknown (qualifier value) [facility] y 250 DO Work Phone: (5 sources) Sulfamethoxazole; Translations: [sulfa] Drug Allergy Rash [facility] y 250 DO Work Phone: (20 sources) Ciprofloxacin; Translations: [CIPROFLOXACIN] Drug Allergy 06-13-20 19 Unknown [facility] (3 sources) Penicillins Drug Allergy 09-03-20 13 Hives [facility] (20 sources) Sulfonamides (Antibiotic); Translations: [SULFA (SULFONAMIDE ANTIBIOTICS)] Drug Allergy 06-13-20 19 Rash [facility] (8 sources) Sulfonamides (Antibiotic); Translations: [sulfa drugs] Drug allergy Unknown (qualifier value) [facility] (20 sources) Penicillins Drug Allergy 09-03-20 13 Hives [facility] (12 sources) NITROFURANTOIN, MACROCRYSTALS / Nitrofurantoin, Monohydrate; Translations: [nitrofurantoin] Drug Allergy 09-14-20 21 Itching [facility] (1 source) Ciprofloxacin Drug Allergy [facility] (1 source) Penicillins Drug allergy (disorder) 09-03-20 13 [facility] (1 source) Sulfonamides (Antibiotic) Drug allergy (disorder) [facility] (15 sources) Angiotensin-conver ting enzyme inhibitor agent; Translations: [YULI INHIBITORS] Drug Allergy 12-25-19 24 Unknown [facility] (5 sources) Angiotensin-conver ting enzyme inhibitor agent Drug Allergy 12-25-19 24 [facility] (5 sources) Nitrofurantoin Drug Allergy 09-14-20 21 Itching [facility] (5 sources) Penicillins Drug Allergy 09-03-20 13 Hives, Rash [facility] (1 source) NITROFURANTOIN MONOHYD/M-CRYST; Translations: [NITROFURANTOIN MONOHYD/M-CRYST] Propensity to adverse reactions to drug (disorder) 09-14-20 21 [facility] Other [place] [facility] Medications Current Medications Medication Drug Class(es) [...] uth daily with food. Brain Misael Capsules ([employer]os [employer]) (12 sources) Start: 07-08-2020 End: 02-04-2023 take 2 tablets by mouth at mealtime Brain Misael Capsules ([employer]) Take 2 tablets by mouth w MEALS. 0 07/08/2020 02/04/2023 Discontinued Start: 07-08-2020 take 2 tablets by mo uth at mealtime Brain Misael Capsules ([employer]) Take 2 tablets by mouth w MEALS. 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 (2 pumps = 100 mg Glutathione) 0 02/04/2023 12/26/2023 Discontinued (Erroneous entry) Start: 02-04-2023 Glutathione (Defywire) Indications: Late onset Alzheimer's disease with behavioral [...] daily in divided doses between meals. 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 (1 [id number]=607pa) 0 02/04/2023 Active Comment on above: Take 1 capsule 3 fidel es daily in divided doses between meals. (1 zptcqua=363uc) hydrOXYzine hydrochloride 25 mg oral tablet (16 [...] uth twice daily with meals. Neuromag ( [employer] ) 90 ct (19 sources) Start: 07-08-2020 End: 12-26-2023 Neuromag ( [employer] ) 90 ct Take 3 capsules per [...] days. 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) Take one teaspoon (5 ml) 1 times daily with food 0 07/08/2020 12/26/2023 Discontinued (Erroneous entry) Start: 07-08-2020 OmegaGenics EP A-DHA 2400 (High Concentrate EPA/DHA liquid) (Molecule Software) Indications: ASCVD (arteriosclerotic cardiovascular disease) , Hyperlipidemia, unspecified hyperlipidemia type , Hypertension, unspecified type , 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 0 [...] mouth once daily. Take 1 tablet by [facility] once daily for 7 days. rosuvastatin [...] capsule daily with a meal. UT Synergy ([employer]) antibacterial (19 sources) Start: 0 End: 4 take 1 capsule by mouth twice daily UT Synergy ([employer]) antibacterial Take 1 capsule by mouth twice daily. 0 07/08/2020 12/26/2023 Discontinued (Erroneous entry) Start: 07-08-2020 take 1 capsule by mo [facility] twice daily UT Synergy ([employer]) antibacterial Take 1 capsule by mouth twice daily. 0 07/08/2020 Active Comment on above: Take 1 capsule by mo [facility] twice daily. valsartan 80 mg oral [...] mg by mout h twice daily. Glutathione (SurDoc) - Liver support/detox (8 sources) Start: 12-01-2021 End: 07-25-2022 Glutathione (SurDoc) - Liver support/detox Use 8 pumps daily , divided doses through out the day. (2 pumps = 100 mg Glutathione). Work up slowly to the higher dose. 0 12/01/2021 07/25/2022 Discontinued Start: 12-01-2021 Glutathione (Q Ning [employer]) - Liver support/detox Use 8 pumps daily [...] Take 10 mg by mouth once daily. Nfwx-Pzyv-DA (OxiCool Research Better Walk) (8 sources) Start: 12-01-19 End: 07-25-20 Zsfd-Rgoy-BK (ShowMe.tv) Take 1 capsule, 2 times daily with 4 oz or more of water. 0 12/01/2021 07/25/2022 Discontinued Start: 12-01-2021 Tkxm-Kwvi-TS ( [employer]) Take 1 capsule, 2 times daily with [...] vascular disease; Translations: [Atherosclerotic heart disease of [place] coronary artery without angina pectoris] Onset: 07-07-2020 [...] (2 sources) Drug therapy finding; Translations: [Other intermission coordinator (current) drug therapy] Episodic Other aftercare (1 source) [facility] (current) use of aspirin; Translations: [SENIOR LIVING CURRENT USE OF ASPIRIN] Onset: 11-07-2022 Episodic Other aftercare (1 source) Other intermission coordinator (current) drug therapy; Translations: [OTH SENIOR LIVING CURRENT DRUG THERAPY] Onset: 11-07-2022 Episodic Other connective tissue disease (2 sources) History of hemiarthroplasty of left hip; Translations: [Presence of left artificial hip joint] 02-21-2024 Chronic Other connective tissue disease (1 source) Presence of left artificial hip joint; Translations: [History of left hip hemiarthroplasty] Onset: 04-24-2024 Chronic Other connective tissue disease (1 source) [...] Translations: [OTHER ABNORMAL GLUCOSE] Onset: 06-05-2022 Episodic E Codes: Fall (1 source) Unspecified fall, initial encounter; Translations: [Fall, initial encounter] Onset: 02-12-2024 Episodic Fluid and electrolyte disorders (16 sources) [...] of presumed infectious origin] Onset: 01-18-2024 Episodic Other nervous system disorders (1 source) Other acute postprocedural pain; Translations: [Post-op pain] Onset: 02-12-2024 Episodic Residual codes; unclassified (16 sources) Delirium; [...] Reference Range Facility CNOVon 04-24-2024 CNOV Normal [facility] CNCOon 03-21-2024 CNCO Letter Text Normal [facility] CNOVon 02-21-2024 CNOV Normal [facility] XR Shoulder - left 2 Viewson 02-21-2024 Two views left shoulder demonstrate no change in position of the displaced proximal humerus fracture as compared to initial presentation films. There is increased bone activity within the proximal humerus. No new fracture identified. [facility] RADIOLOG[facility] Radiology Study observation (narrative) [facility] CNOVon 02-20-2024 CNOV Office Visit (BETYP ) ANN MARIE HILL ([id number]) 1940 F Date Time Provider Department 02/20/24 1:00 PM HELIO GOFF During your visit today, we recorded the following information about you: Blood pressure Weight Height 118/72 76.2 kg 1.575 m Helio Goff, INSURANCE AUDITOR.PIG MACHINE OPERATOR 02/20/2024 4:19 PM Signed Female Pelvic Medicine AND Reconstructive Surgery Consult CHIEF COMPLAINT: Ann Marie Hill is a 83 year old female who presents for consultation requested by Self Referred for an opinion regarding Pelvic Organ Prolapse . HISTORY OF PRESENT ILLNESS: Ann Marie presents with daughter, Christos and , Michael. She suffers from Alzheimer's disease and currently resides at [facility] in [place]. She recently underwent surgery for a fractured hip. She has been wearing pessary (incontinence dish) but Christos is very opposed to continuing with these. She reports Ann Marie becomes extremely distressed with pelvic exams. The pessary was recently removed by general MOTION PICTURE EQUIPMENT MACHINIST. Christos strongly feels this a violation of [...] Michael is POA. Medical and Symptom History: MOTION PICTURE EQUIPMENT MACHINIST HISTORY: Last Pap: NA; Last Mammogram: Her [...] [place] ED NOTEon 02-13-2024 ED NOTE Normal [facility] ED NOTE HNO ID: [id number] Author: RANDELL NELSON RN Service: Emergency Medicine Author Type: Registered Nurse Type: ED Notes Filed: 02/13/2024 00:09 Note Text: Report called to [place] at [facility] Normal [facility] ALLIED HEALTHon 02-12-2024 ALLIED HEALTH Normal [facility] Basic metabolic 2000 panelon 02-12-2024 Anion gap [Moles/Vol] 13 mmol/L Normal 9-18 [facility] Comment on above: Order Comment: Speci men Type: BLOOD SPECIMENOrdering Facility: [facility] Address: [address] [place] [address] Performed By: #### 2 4321-2 ####[facility] LABORATORYCLIA [id number] [place] [address] [place] Calcium [Mass/Vol] 9.0 mg/dL Normal 8.5-10.2 [facility] Comment on above: Order Comment: Speci men Type: BLOOD SPECIMENOrdering Facility: [facility] Address: [address] [place] [address] Performed By: #### 2 4321-2 ####[facility] LABORATORYCLIA [id number] [place] [address] [place] Chloride [Moles/Vol] 99 mmol/L Normal 97-105 [facility] Comment on above: Order Comment: Speci men Type: BLOOD SPECIMENOrdering Facility: [facility] Address: [address] [place] [address] Performed By: #### 2 4321-2 ####[facility] LABORATORYCLIA [id number] [place] [address] [place] CO2 [Moles/Vol] 24 mmol/L Normal 22-30 [facility] Comment on above: Order Comment: Speci men Type: BLOOD SPECIMENOrdering Facility: [facility] Address: [address] [place] [address] Performed By: #### 2 4321-2 ####[facility] LABORATORYCLIA [id number] [address] STATES OF [facility] Creatinine [Mass/Vol] 0.70 mg/dL Normal 0.58-0.96 [facility] Comment on above: Order Comment: Kristin paige Type: BLOOD SPECIMENOrdering Facility: [facility] Address: [address] [place] [address] Performed By: #### 2 4321-2 ####[facility] LABORATORYCLIA [id number] [place] [id number] [facility] Creatinine and Glomerular filtration rate.predicted panel (S/P/Bld) 86 mL/min/1.73m??? Normal >=60 [facility] Comment on above: Order Comment: Kristin paige Type: BLOOD SPECIMENOrdering Facility: [facility] Address: [address] [place] [address] Result Comment: Felicia mated Glomerular Filtration Rate [...] actual GFR. Performed By: #### 2 4321-2 ####[facility] LABORATORYCLIA [id number] [address] STATES OF [facility] Glucose [Mass/Vol] 142 mg/dL High 74-99 [facility] Comment on above: Order Comment: Kristin paige Type: BLOOD SPECIMENOrdering Facility: [facility] Address: [address] [place] [address] Result Comment: The [place] Diabetes Association (ADA) provides guidance for cutoff [...] Standards of Medical Care in Diabetes 2016, [place] Diabetes Association. Diabetes Care. 2016.39(Suppl 1). Performed By: #### 2 4321-2 ####[facility] LABORATORYCLIA [id number] [address] [place] Potassium [Moles/Vol] 3.9 mmol/L Normal 3.7-5.1 [facility] Comment on above: Order Comment: Speci men Type: BLOOD SPECIMENOrdering Facility: [facility] Address: [address] [place] [address] Performed By: #### 2 4321-2 ####[facility] LABORATORYCLIA [id number] [address] STATES OF [facility] Sodium [Moles/Vol] 136 mmol/L Normal 136-144 [facility] Comment on above: Order Comment: Speci men Type: BLOOD SPECIMENOrdering Facility: [facility] Address: [address] [place] [address] Performed By: #### 2 4321-2 ####[facility] LABORATORYCLIA [id number] [address] STATES [facility] Urea nitrogen [Mass/Vol] 24 mg/dL High 7-21 [facility] Comment on above: Order Comment: Speci men Type: BLOOD SPECIMENOrdering Facility: [facility] Address: [address] [place] [address] Performed By: #### 2 1-2 ####[facility] LABORATORYCLIA [id number] [address] [place] Anion gap [Moles/Vol] 9 mmol/L Normal 9-18 [facility] Comment on above: Order Comment: Speci men Type: BLOOD SPECIMENOrdering Facility: [facility] Address: [address] [place] [address] Performed By: #### 2 4321-2 ####[facility] LABORATORYCLIA [id number] [address] [place] Calcium [Mass/Vol] 8.7 mg/dL Normal 8.5-10.2 [facility] Comment on above: Order Comment: Speci men Type: BLOOD SPECIMENOrdering Facility: [facility] Address: [address] [place] [address] Performed By: #### 2 4321-2 ####[facility] LABORATORYCLIA [id number] [place] [address] [place] Chloride [Moles/Vol] 101 mmol/L Normal 97-105 [facility] Comment on above: Order Comment: Speci men Type: BLOOD SPECIMENOrdering Facility: [facility] Address: [address] [place] [address] Performed By: #### 2 4321-2 ####[facility] LABORATORYCLIA [id number] [address] [place] CO2 [Moles/Vol] 25 mmol/L Normal 22-30 [facility] Comment on above: Order Comment: Speci men Type: BLOOD SPECIMENOrdering Facility: [facility] Address: [address] [place] [address] Performed By: #### 2 4321-2 ####[facility] LABORATORYCLIA [id number] [address] [place] Creatinine [Mass/Vol] 0.62 mg/dL Normal 0.58-0.96 [facility] Comment on above: Order Comment: Speci men Type: BLOOD SPECIMENOrdering Facility: [facility] Address: [address] [place] [address] Performed By: #### 2 4321-2 ####[facility] LABORATORYCLIA [id number] [address] [place] Creatinine and Glomerular filtration rate.predicted panel (S/P/Bld) 89 mL/min/1.73m??? Normal >=60 [facility] Comment on above: Order Comment: Speci men Type: BLOOD SPECIMENOrdering Facility: [facility] Address: [address], [place] [address] Result Comment: Felicia mated Glomerular Filtration Rate [...] actual GFR. Performed By: #### 2 4321-2 ####[facility] LABORATORYCLIA [id number] [place] [address] [place] Glucose [Mass/Vol] 119 mg/dL High 74-99 [facility] Comment on above: Order Comment: Kristin paige Type: BLOOD SPECIMENOrdering Facility: [facility] Address: [address] [place] [address] Result Comment: The [place] Diabetes Association (ADA) provides guidance for cutoff [...] Standards of Medical Care in Diabetes 2016, [place] Diabetes Association. Diabetes Care. 2016.39(Suppl 1). Performed By: #### 2 4321-2 ####[facility] LABORATORYCLIA [id number] [place] [address] [place] Potassium [Moles/Vol] 4.1 mmol/L Normal 3.7-5.1 [facility] Comment on above: Order Comment: Kristin paige Type: BLOOD SPECIMENOrdering Facility: [facility] Address: [address] [place] [address] Performed By: #### 2 4321-2 ####[facility] LABORATORYCLIA [id number] [place] [id number] [place] Sodium [Moles/Vol] 135 mmol/L Low 136-144 [facility] Comment on above: Order Comment: Speci men Type: BLOOD SPECIMENOrdering Facility: [facility] Address: [address] [place] [address] Performed By: #### 2 4321-2 ####[facility] LABORATORYCLIA [id number] [address] [place] Urea nitrogen [Mass/Vol] 17 mg/dL Normal 7-21 [facility] Comment on above: Order Comment: Speci men Type: BLOOD SPECIMENOrdering Facility: [facility] Address: [address] [place] [address] Performed By: #### 2 4321-2 ####[facility] LABORATORYCLIA [id number] [address] [place] CASE MANAGEMon 02-12-2024 CASE MANAGEM Normal [facility] CASE MANAGEM Normal [facility] CASE MANAGEM Normal [facility] CBC W Auto Differential pane l (Bld)on 02-12-2024 Basophils (Bld) [#/Vol] 0.04 10*3/uL Normal <0.11 [facility] Comment on above: Order Comment: Speci men Type: BLOOD SPECIMENOrdering Facility: [facility] Address: [address] [place] [address] Performed By: #### 5 7021-8 ####[facility] LABORATORYCLIA [id number] [address] [place] Basophils/100 WBC (Bld) 0.3 % Normal [facility] Comment on above: Order Comment: Speci men Type: BLOOD SPECIMENOrdering Facility: [facility] Address: [address] [place] [address] Performed By: #### 5 7021-8 ####[facility] LABORATORYCLIA [id number] [address] [place] Differential cell count method Nom (Bld) Auto Normal [facility] Comment on above: Order Comment: Speci men Type: BLOOD SPECIMENOrdering Facility: [facility] Address: [address] [place] [address] Performed By: #### 5 7021-8 ####[facility]ORATORYCLIA [id number] [address] Eosinophils (Bld) [#/Vol] 0.35 10*3/uL Normal <0.46 [facility] Comment on above: Order Comment: Speci men Type: BLOOD SPECIMENOrdering Facility: [facility] Address: [address] [place] [address] Performed By: #### 5 7021-8 ####[facility]ORATORYCLIA [id number] [address] Eosinophils/100 WBC (Bld) 2.5 % Normal [facility] Comment on above: Order Comment: Speci men Type: BLOOD SPECIMENOrdering Facility: [facility] Address: [address] [place] [address] Performed By: #### 5 7021-8 ####[facility] LABORATORYCLIA [id number] [address] Erythrocyte distribution width (RBC) [Ratio] 13.7 % Normal 11.5-15.0 [facility] Comment on above: Order Comment: Speci men Type: BLOOD SPECIMENOrdering Facility: [facility] Address: [address] [place] [address] Performed By: #### 5 7021-8 ####[facility]ORATORYCLIA [id number] [address] Hematocrit (Bld) [Volume fraction] 33.5 % Low 36.0-46.0 [facility] Comment on above: Order Comment: Speci men Type: BLOOD SPECIMENOrdering Facility: [facility] Address: [address] [place] [address] Performed By: #### 5 7021-8 ####[facility] LABORATORYCLIA [id number] [address] [place] Hemoglobin (Bld) [Mass/Vol] 10.7 g/dL Low 11.5-15.5 [facility] Comment on above: Order Comment: Speci men Type: BLOOD SPECIMENOrdering Facility: [facility] Address: [address] [place] [address] Performed By: #### 5 7021-8 ####[facility] LABORATORYCLIA [id number] [address] Immature granulocytes (Bld) [#/Vol] 0.11 10*3/uL High <0.10 [facility] Comment on above: Order Comment: Speci men Type: BLOOD SPECIMENOrdering Facility: [facility] Address: [address] [place] [address] Performed By: #### 5 7021-8 ####[facility] LABORATORYCLIA [id number] [address] Immature granulocytes/100 WBC (Bld) 0.8 % Normal [facility] Comment on above: Order Comment: Speci men Type: BLOOD SPECIMENOrdering Facility: [facility] Address: [address] [place] [address] Performed By: #### 5 7021-8 ####[facility] LABORATORYCLIA [id number] [address] STATES [facility] Lymphocytes (Bld) [#/Vol] 1.92 10*3/uL Normal 1.00-4.00 [facility] Comment on above: Order Comment: Speci men Type: BLOOD SPECIMENOrdering Facility: [facility] Address: [address] [place] [address] Performed By: #### 5 7021-8 ####[facility] LABORATORYCLIA [id number] [address] Lymphocytes/100 WBC (Bld) 13.5 % Normal [facility] Comment on above: Order Comment: Speci men Type: BLOOD SPECIMENOrdering Facility: [facility] Address: [address] [place] [address] Performed By: #### 5 7021-8 ####[facility]ORATORYCLIA [id number] [address] [place] MCH (RBC) [Entitic mass] 31.8 pg Normal 26.0-34.0 [facility] Comment on above: Order Comment: Speci men Type: BLOOD SPECIMENOrdering Facility: [facility] Address: [address] [place] [address] Performed By: #### 5 7021-8 ####[facility] LABORATORYCLIA [id number] [place] [address] [place] MCHC (RBC) [Mass/Vol] 31.9 g/dL Normal 30.5-36.0 [facility] Comment on above: Order Comment: Speci men Type: BLOOD SPECIMENOrdering Facility: [facility] Address: [address] [place] [address] Performed By: #### 5 7021-8 ####[facility] LABORATORYCLIA [id number] [place] [address] [place] MCV (RBC) [Entitic vol] 99.7 fL Normal 80.0-100.0 [facility] Comment on above: Order Comment: Speci men Type: BLOOD SPECIMENOrdering Facility: [facility] Address: [address] [place] [address] Performed By: #### 5 7021-8 ####[facility] LABORATORYCLIA [id number] [address] [place] Monocytes (Bld) [#/Vol] 0.85 10*3/uL Normal <0.87 [facility] Comment on above: Order Comment: Speci men Type: BLOOD SPECIMENOrdering Facility: [facility] Address: [address] [place] [address] Performed By: #### 5 7021-8 ####[facility] LABORATORYCLIA [id number] [address] [place] Monocytes/100 WBC (Bld) 6.0 % Normal [facility] Comment on above: Order Comment: Speci men Type: BLOOD SPECIMENOrdering Facility: [facility] Address: [address] [place] [address] Performed By: #### 5 7021-8 ####[facility] LABORATORYCLIA [id number] [place] [address] [place] Neutrophils (Bld) [#/Vol] 10.95 10*3/uL High 1.45-7.50 [facility] Comment on above: Order Comment: Speci men Type: BLOOD SPECIMENOrdering Facility: [facility] Address: [address] [place] [address] Performed By: #### 5 7021-8 ####[facility] LABORATORYCLIA [id number] [address] [place] Neutrophils/100 WBC (Bld) 76.9 % Normal [facility] Comment on above: Order Comment: Speci men Type: BLOOD SPECIMENOrdering Facility: [facility] Address: [address] [place] [address] Performed By: #### 5 7021-8 ####[facility] LABORATORYCLIA [id number] [address] [place] Nucleated RBC (Bld) [#/Vol] 10*3/uL Normal <0.01 [facility] Comment on above: Order Comment: Speci men Type: BLOOD SPECIMENOrdering Facility: [facility] Address: [address] [place] [address] Performed By: #### 5 7021-8 ####[facility] LABORATORYCLIA [id number] [address] [place] Nucleated RBC/100 WBC (Bld) [Ratio] 0.0 /100 WBC Normal [facility] Comment on above: Order Comment: Speci men Type: BLOOD SPECIMENOrdering Facility: [facility] Address: [address] [place] [address] Performed By: #### 5 7021-8 ####[facility] LABORATORYCLIA [id number] [address] [place] Platelet mean volume (Bld) [Entitic vol] 9.2 fL Normal 9.0-12.7 [facility] Comment on above: Order Comment: Speci men Type: BLOOD SPECIMENOrdering Facility: [facility] Address: [address] [place] [address] Performed By: #### 5 7021-8 ####[facility] LABORATORYCLIA [id number] [address] Platelets (Bld) [#/Vol] 402 10*3/uL High 150-400 [facility] Comment on above: Order Comment: Speci men Type: BLOOD SPECIMENOrdering Facility: [facility] Address: [address] [place] [address] Performed By: #### 5 7021-8 ####[facility] LABORATORYCLIA [id number] [place] [address] [facility] [place] RBC (Bld) [#/Vol] 3.36 10*6/uL Low 3.90-5.20 [facility] Comment on above: Order Comment: Speci men Type: BLOOD SPECIMENOrdering Facility: [facility] Address: [address] [place] [address] Performed By: #### 5 7021-8 ####[facility] LABORATORYCLIA [id number] [address] WBC (Bld) [#/Vol] 14.22 10*3/uL High 3.70-11.00 [facility] Comment on above: Order Comment: Speci men Type: BLOOD SPECIMENOrdering Facility: [facility] Address: [address] [place] [address] Performed By: #### 5 7021-8 ####[facility] LABORATORYCLIA [id number] [address] [place] CNDSon 02-12-2024 CNDS Normal [facility] CT BRAIN WO IVCONon 02-12-[address] BRAIN WO IVCON Normal [facility] CT CERVICAL SPINE WO IVCONon 02-12-2024 CT CERVICAL SPINE WO IVCON Normal [facility] ED NOTEon 02-12-2024 ED NOTE HNO ID: [id number] Author: RANDELL NELSON RN Service: Emergency Medicine Author Type: Registered Nurse Type: ED Notes Filed: 02/12/2024 21:46 Note Text: Called ED x-ray patient is ready at this time. Normal [facility] ED NOTE HNO ID: [id number] Author: RANDELL NELSON RN Service: Emergency Medicine Author Type: Registered Nurse Type: ED Notes Filed: 02/12/2024 21:45 Note Text: Called ED CT patient is ready at this time. Normal [facility] ED NOTE HNO ID: [id number] Author: PILLO SHEPPARD, Medic Service: ? Author Type: Technical Writer And Editor and Dental Hygienist Type: ED Notes Filed: 02/12/2024 21:09 Note Text: Bed: [facility] Expected date: Expected time: Means of arrival: [place] [facility] Comments: Hip pain [facility] Normal [facility] ED PROV NOTEon 02-12-2024 ED PROV NOTE Normal [facility] XR HIP 3V PELV+ AP/LAT LTon 02-12-2024 XR HIP 3V PELV+ AP/LAT LT Normal [facility] XR SHLDR >/=3V AP/NICA AP/OTH R LTon 02-12-2024 XR SHLDR >/=3V AP/NICA AP/OTHR LT Normal [facility] Basic metabolic 2000 panelon 02-11-2024 Anion gap [Moles/Vol] 10 mmol/L Normal 9-18 [facility] Comment on above: Order Comment: Speci men Type: BLOOD SPECIMENOrdering Facility: [facility] Address: [address] [place] [address] Performed By: #### 2 4321-2 ####[facility] LABORATORYCLIA [id number] [place] [address] [place] Calcium [Mass/Vol] 9.0 mg/dL Normal 8.5-10.2 [facility] Comment on above: Order Comment: Speci men Type: BLOOD SPECIMENOrdering Facility: [facility] Address: [address] [place] [address] Performed By: #### 2 4321-2 ####[facility] LABORATORYCLIA [id number] [place] [address] [place] Chloride [Moles/Vol] 100 mmol/L Normal 97-105 [facility] Comment on above: Order Comment: Speci men Type: BLOOD SPECIMENOrdering Facility: [facility] Address: [address] [place] [address] Performed By: #### 2 4321-2 ####[facility] LABORATORYCLIA [id number] [place] [address] [place] CO2 [Moles/Vol] 24 mmol/L Normal 22-30 [facility] Comment on above: Order Comment: Speci men Type: BLOOD SPECIMENOrdering Facility: [facility] Address: [address] [place] [address] Performed By: #### 2 4321-2 ####[facility]ITALCLIA [id number] [address] STATES OF [facility] Creatinine [Mass/Vol] 0.70 mg/dL Normal 0.58-0.96 [facility] Comment on above: Order Comment: Speci men Type: BLOOD SPECIMENOrdering Facility: [facility] Address: [address] [place] [address] Performed By: #### 2 4321-2 ####[facility]PITALCLIA [id number] [address] Creatinine and Glomerular filtration rate.predicted panel (S/P/Bld) 86 mL/min/1.73m??? Normal >=60 [facility] Comment on above: Order Comment: Speci men Type: BLOOD SPECIMENOrdering Facility: [facility] Address: [address] [place] [address] Result Comment: Felicia mated Glomerular Filtration Rate [...] actual GFR. Performed By: #### 2 4321-2 ####[facility] LABORATORYCLIA [id number] [place] [address] [place] Glucose [Mass/Vol] 140 mg/dL High 74-99 [facility] Comment on above: Order Comment: Speci men Type: BLOOD SPECIMENOrdering Facility: [facility] Address: [address] [id number] Result Comment: The [place] [employer] (ADA) provides guidance for cutoff [...] Standards of Medical Care in Diabetes 2016, [place] [employer]. Diabetes Care. 2016.39(Suppl 1). Performed By: #### 2 4321-2 ####[facility] LABORATORYCLIA [id number] [place] [address] [place] Potassium [Moles/Vol] 4.3 mmol/L Normal 3.7-5.1 [facility] Comment on above: Order Comment: Kristin men Type: BLOOD SPECIMENOrdering Facility: [facility] Address: [address] [place] [address] Performed By: #### 2 4321-2 ####[facility] LABORATORYCLIA [id number] [place] [address] [place] Sodium [Moles/Vol] 134 mmol/L Low 136-144 [facility] Comment on above: Order Comment: Speci men Type: BLOOD SPECIMENOrdering Facility: [facility] Address: [address] [id number] Performed By: #### 2 4321-2 ####[facility] LABORATORYCLIA [id number] [place] [address] [place] Urea nitrogen [Mass/Vol] 24 mg/dL High 7-21 [facility] Comment on above: Order Comment: Speci men Type: BLOOD SPECIMENOrdering Facility: [facility] Address: [address] [place] [address] Performed By: #### 2 4321-2 ####[facility] LABORATORYCLIA [id number] [address] CBC panel Auto (Bld)on 02-10 Erythrocyte distribution width (RBC) [Ratio] 13.9 % Normal 11.5-15.0 [facility] Comment on above: Order Comment: Speci men Type: BLOOD SPECIMENOrdering Facility: [facility] Address: [address] [place] [address] Performed By: #### 5 8410-2 ####[facility] LABORATORYCLIA [id number] [address] Hematocrit (Bld) [Volume fraction] 31.4 % Low 36.0-46.0 [facility] Comment on above: Order Comment: Speci men Type: BLOOD SPECIMENOrdering Facility: [facility] Address: [address] [place] [address] Performed By: #### 5 8410-2 ####[facility] LABORATORYCLIA [id number] [address] Hemoglobin (Bld) [Mass/Vol] 10.4 g/dL Low 11.5-15.5 [facility] Comment on above: Order Comment: Speci men Type: BLOOD SPECIMENOrdering Facility: [facility] Address: [address] [place] [address] Performed By: #### 5 8410-2 ####[facility] LABORATORYCLIA [id number] [address] STATES [facility] MCH (RBC) [Entitic mass] 32.5 pg Normal 26.0-34.0 [facility] Comment on above: Order Comment: Speci men Type: BLOOD SPECIMENOrdering Facility: [facility] Address: [address] [place] [address] Performed By: #### 5 8410-2 ####[facility] LABORATORYCLIA [id number] [place] [address] [place] MCHC (RBC) [Mass/Vol] 33.1 g/dL Normal 30.5-36.0 [facility] Comment on above: Order Comment: Speci men Type: BLOOD SPECIMENOrdering Facility: [facility] Address: [address] [place] [address] Performed By: #### 5 8410-2 ####[facility] LABORATORYCLIA [id number] [address] [place] MCV (RBC) [Entitic vol] 98.1 fL Normal 80.0-100.0 [facility] Comment on above: Order Comment: Speci men Type: BLOOD SPECIMENOrdering Facility: [facility] Address: [address] [place] [address] Performed By: #### 5 8410-2 ####[facility] LABORATORYCLIA [id number] [address] STATES OF [facility] Nucleated RBC (Bld) [#/Vol] 10*3/uL Normal <0.01 [facility] Comment on above: Order Comment: Speci men Type: BLOOD SPECIMENOrdering Facility: [facility] Address: [address] [place] [address] Performed By: #### 5 8410-2 ####[facility] LABORATORYCLIA [id number] [address] [place] Platelet mean volume (Bld) [Entitic vol] 9.3 fL Normal 9.0-12.7 [facility] Comment on above: Order Comment: Speci men Type: BLOOD SPECIMENOrdering Facility: [facility] Address: [address] [place] [address] Performed By: #### 5 8410-2 ####[facility] LABORATORYCLIA [id number] [address] [place] Platelets (Bld) [#/Vol] 291 10*3/uL Normal 150-400 [facility] Comment on above: Order Comment: Speci men Type: BLOOD SPECIMENOrdering Facility: [facility] Address: [address] [place] [address] Performed By: #### 5 8410-2 ####[facility] LABORATORYCLIA [id number] [address] [place] RBC (Bld) [#/Vol] 3.20 10*6/uL Low 3.90-5.20 [facility] Comment on above: Order Comment: Speci men Type: BLOOD SPECIMENOrdering Facility: [facility] Address: [address] [place] [address] Performed By: #### 5 8410-2 ####[facility] LABORATORYCLIA [id number] [address] STATES [place] [facility] WBC (Bld) [#/Vol] 13.70 10*3/uL High 3.70-11.00 [facility] Comment on above: Order Comment: Speci men Type: BLOOD SPECIMENOrdering Facility: [facility] Address: [address] [place] [address] Performed By: #### 5 8410-2 ####[facility] LABORATORYCLIA [id number] [address] [place] CONSULTon 02-11-2024 CONSULT Normal [facility] THERAPY NTon 02-11-2024 THERAPY NT Normal [facility] THERAPY NT Normal [facility] US KIDNEY/BLADDERon 02-11-20 24 US KIDNEY/BLADDER Normal [facility] Basic metabolic 2000 panelon 02-10-2024 Anion gap [Moles/Vol] 11 mmol/L Normal 9-18 [facility] Comment on above: Order Comment: Speci men Type: BLOOD SPECIMENOrdering Facility: [facility] Address: [address] [place] [address] Performed By: #### 2 4321-2 ####[facility] LABORATORYCLIA [id number] [address] [place] Calcium [Mass/Vol] 9.1 mg/dL Normal 8.5-10.2 [facility] Comment on above: Order Comment: Speci men Type: BLOOD SPECIMENOrdering Facility: [facility] Address: [address] [place] [address] Performed By: #### 2 4321-2 ####[facility] LABORATORYCLIA [id number] [place] [id number] [place] Chloride [Moles/Vol] 104 mmol/L Normal 97-105 [facility] Comment on above: Order Comment: Speci men Type: BLOOD SPECIMENOrdering Facility: [facility] Address: [address] [place] [address] Performed By: #### 2 4321-2 ####[facility] LABORATORYCLIA [id number] [place] [id number] [place] CO2 [Moles/Vol] 23 mmol/L Normal 22-30 [facility] Comment on above: Order Comment: Speci men Type: BLOOD SPECIMENOrdering Facility: [facility] Address: [address] [place] [address] Performed By: #### 2 4321-2 ####[facility]ORATORYCLIA [id number] [address] STATES [place] [facility] Creatinine [Mass/Vol] 0.60 mg/dL Normal 0.58-0.96 [facility] Comment on above: Order Comment: Speci men Type: BLOOD SPECIMENOrdering Facility: [facility] Address: [address] [place] [address] Performed By: #### 2 4321-2 ####[facility]ORATORYCLIA [id number] [address] Creatinine and Glomerular filtration rate.predicted panel (S/P/Bld) 90 mL/min/1.73m??? Normal >=60 [facility] Comment on above: Order Comment: Speci men Type: BLOOD SPECIMENOrdering Facility: [facility] Address: [address] [place] [address] Result Comment: Felicia mated Glomerular Filtration Rate [...] actual GFR. Performed By: #### 2 4321-2 ####[facility] LABORATORYCLIA [id number] [place] [address] [place] Glucose [Mass/Vol] 129 mg/dL High 74-99 [facility] Comment on above: Order Comment: Lului royal Type: BLOOD SPECIMENOrdering Facility: [facility] Address: [address] [place] [address] Result Comment: The [place] Diabetes Association (ADA) provides guidance for cutoff [...] Standards of Medical Care in Diabetes 2016, [place] [employer]. Diabetes Care. 2016.39(Suppl 1). Performed By: #### 2 4321-2 ####[facility]ORATORYCLIA [id number] [place] [address] [place] Potassium [Moles/Vol] 3.9 mmol/L Normal 3.7-5.1 [facility] Comment on above: Order Comment: Kristin paige Type: BLOOD SPECIMENOrdering Facility: [facility] Address: [address] [place] [address] Performed By: #### 2 4321-2 ####[facility] LABORATORYCLIA [id number] [place] [id number] [place] Sodium [Moles/Vol] 138 mmol/L Normal 136-144 [facility] Comment on above: Order Comment: Kristin royal Type: BLOOD SPECIMENOrdering Facility: [facility] Address: [address] [place] [address] Performed By: #### 2 4321-2 ####[facility] LABORATORYCLIA [id number] [address] [place] Urea nitrogen [Mass/Vol] 18 mg/dL Normal 7-21 [facility] Comment on above: Order Comment: Speci men Type: BLOOD SPECIMENOrdering Facility: [facility] Address: [address] [place] [address] Performed By: #### 2 4321-2 ####[facility] LABORATORYCLIA [id number] [address] [id number] [place] CASE MANAGEMon 02-10-2024 CASE MANAGEM Normal [facility] CBC panel Auto (Bld)on 02-09 Erythrocyte distribution width (RBC) [Ratio] 14.0 % Normal 11.5-15.0 [facility] Comment on above: Order Comment: Speci men Type: BLOOD SPECIMENOrdering Facility: [facility] Address: [address] [place] [address] Performed By: #### 5 8410-2 ####[facility] LABORATORYCLIA [id number] [address] STATES [place] [facility] Hematocrit (Bld) [Volume fraction] 35.5 % Low 36.0-46.0 [facility] Comment on above: Order Comment: Speci men Type: BLOOD SPECIMENOrdering Facility: [facility] Address: [address] [place] [address] Performed By: #### 5 8410-2 ####[facility]ORATORYCLIA [id number] [address] [place] Hemoglobin (Bld) [Mass/Vol] 11.5 g/dL Normal 11.5-15.5 [facility] Comment on above: Order Comment: Speci men Type: BLOOD SPECIMENOrdering Facility: [facility] Address: [address] [place] [address] Performed By: #### 5 8410-2 ####[facility] LABORATORYCLIA [id number] [address] [place] MCH (RBC) [Entitic mass] 32.1 pg Normal 26.0-34.0 [facility] Comment on above: Order Comment: Speci men Type: BLOOD SPECIMENOrdering Facility: [facility] Address: [address] [place] [address] Performed By: #### 5 8410-2 ####[facility] LABORATORYCLIA [id number] [address] MCHC (RBC) [Mass/Vol] 32.4 g/dL Normal 30.5-36.0 [facility] Comment on above: Order Comment: Speci men Type: BLOOD SPECIMENOrdering Facility: [facility] Address: [address] [place] [address] Performed By: #### 5 8410-2 ####[facility] LABORATORYCLIA [id number] [address] MCV (RBC) [Entitic vol] 99.2 fL Normal 80.0-100.0 [facility] Comment on above: Order Comment: Speci men Type: BLOOD SPECIMENOrdering Facility: [facility] Address: [address] [place] [address] Performed By: #### 5 8410-2 ####[facility] LABORATORYCLIA [id number] [address] Nucleated RBC (Bld) [#/Vol] 10*3/uL Normal <0.01 [facility] Comment on above: Order Comment: Speci men Type: BLOOD SPECIMENOrdering Facility: [facility] Address: [address] [place] [address] Performed By: #### 5 8410-2 ####[facility] LABORATORYCLIA [id number] [address] Platelet mean volume (Bld) [Entitic vol] 9.9 fL Normal 9.0-12.7 [facility] Comment on above: Order Comment: Speci men Type: BLOOD SPECIMENOrdering Facility: [facility] Address: [address] [place] [address] Performed By: #### 5 8410-2 ####[facility] LABORATORYCLIA [id number] [address] Platelets (Bld) [#/Vol] 294 10*3/uL Normal 150-400 [facility] Comment on above: Order Comment: Speci men Type: BLOOD SPECIMENOrdering Facility: [facility] Address: [address] [place] [address] Performed By: #### 5 8410-2 ####[facility] LABORATORYCLIA [id number] [place] [address] [place] RBC (Bld) [#/Vol] 3.58 10*6/uL Low 3.90-5.20 [facility] Comment on above: Order Comment: Speci men Type: BLOOD SPECIMENOrdering Facility: [facility] Address: [address] [place] [address] Performed By: #### 5 8410-2 ####[facility] LABORATORYCLIA [id number] [address] STATES OF [facility] WBC (Bld) [#/Vol] 10.86 10*3/uL Normal 3.70-11.00 [facility] Comment on above: Order Comment: Speci men Type: BLOOD SPECIMENOrdering Facility: [facility] Address: [address] [place] [address] Performed By: #### 5 8410-2 ####[facility] LABORATORYCLIA [id number] [address] [place] CONSULT PROGon 02-10-2024 CONSULT PROG Normal [facility] NURSING PROGon 02-10-2024 NURSING PROG Normal [facility] Basic metabolic 2000 panelon 02-09-2024 Anion gap [Moles/Vol] 10 mmol/L Normal 9-18 [facility] Comment on above: Order Comment: Speci men Type: BLOOD SPECIMENOrdering Facility: [facility] Address: [address] [place] [address] Performed By: #### 2 4321-2 ####[facility] LABORATORYCLIA [id number] [address] [place] Calcium [Mass/Vol] 9.1 mg/dL Normal 8.5-10.2 [facility] Comment on above: Order Comment: Speci men Type: BLOOD SPECIMENOrdering Facility: [facility] Address: [address] [place] [address] Performed By: #### 2 4321-2 ####[facility] LABORATORYCLIA [id number] [place] [address] [place] Chloride [Moles/Vol] 103 mmol/L Normal 97-105 [facility] Comment on above: Order Comment: Speci men Type: BLOOD SPECIMENOrdering Facility: [facility] Address: [address] [place] [address] Performed By: #### 2 4321-2 ####[facility] LABORATORYCLIA [id number] [place] [address] [place] CO2 [Moles/Vol] 26 mmol/L Normal 22-30 [facility] Comment on above: Order Comment: Speci men Type: BLOOD SPECIMENOrdering Facility: [facility] Address: [address] [place] [address] Performed By: #### 2 4321-2 ####[facility] LABORATORYCLIA [id number] [place] [address] [place] Creatinine [Mass/Vol] 0.65 mg/dL Normal 0.58-0.96 [facility] Comment on above: Order Comment: Speci men Type: BLOOD SPECIMENOrdering Facility: [facility] Address: [address] [place] [address] Performed By: #### 2 4321-2 ####[facility] LABORATORYCLIA [id number] [address] Creatinine and Glomerular filtration rate.predicted panel (S/P/Bld) 88 mL/min/1.73m??? Normal >=60 [facility] Comment on above: Order Comment: Speci men Type: BLOOD SPECIMENOrdering Facility: [facility] Address: [address] [place] [address] Result Comment: Felicia mated Glomerular Filtration Rate [...] actual GFR. Performed By: #### 2 4321-2 ####[facility] LABORATORYCLIA [id number] [place] [address] [place] Glucose [Mass/Vol] 135 mg/dL High 74-99 [facility] Comment on above: Order Comment: Speci men Type: BLOOD SPECIMENOrdering Facility: [facility] Address: [address] [place] [address] Result Comment: The [place] Diabetes Association (ADA) provides guidance for cutoff [...] Standards of Medical Care in Diabetes 2016, [place] [employer]. Diabetes Care. 2016.39(Suppl 1). Performed By: #### 2 4321-2 ####[facility] LABORATORYCLIA [id number] [place] [address] [place] Potassium [Moles/Vol] 3.6 mmol/L Low 3.7-5.1 [facility] Comment on above: Order Comment: Speci men Type: BLOOD SPECIMENOrdering Facility: [facility] Address: [address] [id number] Performed By: #### 2 4321-2 ####[facility] LABORATORYCLIA [id number] [place] [address] [place] Sodium [Moles/Vol] 139 mmol/L Normal 136-144 [facility] Comment on above: Order Comment: Speci men Type: BLOOD SPECIMENOrdering Facility: [facility] Address: [address] [place] [address] Performed By: #### 2 4321-2 ####[facility] LABORATORYCLIA [id number] [address] STATES OF [facility] Urea nitrogen [Mass/Vol] 15 mg/dL Normal 7-21 [facility] Comment on above: Order Comment: Speci men Type: BLOOD SPECIMENOrdering Facility: [facility] Address: [address] [place] [address] Performed By: #### 2 4321-2 ####[facility] LABORATORYCLIA [id number] [address] OF [facility] CASE MANAGEMon 02-09-2024 CASE MANAGEM Normal [facility] CBC panel Auto (Bld)on 02-08 Erythrocyte distribution width (RBC) [Ratio] 13.7 % Normal 11.5-15.0 [facility] Comment on above: Order Comment: Speci men Type: BLOOD SPECIMENOrdering Facility: [facility] Address: [address] [place] [address] Performed By: #### 5 8410-2 ####[facility] LABORATORYCLIA [id number] [address] [place] Hematocrit (Bld) [Volume fraction] 33.9 % Low 36.0-46.0 [facility] Comment on above: Order Comment: Speci men Type: BLOOD SPECIMENOrdering Facility: [facility] Address: [address] [place] [address] Performed By: #### 5 8410-2 ####[facility] LABORATORYCLIA [id number] [place] [address] [place] Hemoglobin (Bld) [Mass/Vol] 11.3 g/dL Low 11.5-15.5 [facility] Comment on above: Order Comment: Speci men Type: BLOOD SPECIMENOrdering Facility: [facility] Address: [address] [place] [address] Performed By: #### 5 8410-2 ####[facility] LABORATORYCLIA [id number] [address] MCH (RBC) [Entitic mass] 32.3 pg Normal 26.0-34.0 [facility] Comment on above: Order Comment: Speci men Type: BLOOD SPECIMENOrdering Facility: [facility] Address: [address] [place] [address] Performed By: #### 5 8410-2 ####[facility] LABORATORYCLIA [id number] [address] [place] MCHC (RBC) [Mass/Vol] 33.3 g/dL Normal 30.5-36.0 [facility] Comment on above: Order Comment: Speci men Type: BLOOD SPECIMENOrdering Facility: [facility] Address: [address] [place] [address] Performed By: #### 5 8410-2 ####[facility] LABORATORYCLIA [id number] [address] STATES [place] [facility] MCV (RBC) [Entitic vol] 96.9 fL Normal 80.0-100.0 [facility] Comment on above: Order Comment: Speci men Type: BLOOD SPECIMENOrdering Facility: [facility] Address: [address] [place] [address] Performed By: #### 5 8410-2 ####[facility]ORATORYCLIA [id number] [address] Nucleated RBC (Bld) [#/Vol] 10*3/uL Normal <0.01 [facility] Comment on above: Order Comment: Speci men Type: BLOOD SPECIMENOrdering Facility: [facility] Address: [address] [place] [address] Performed By: #### 5 8410-2 ####[facility] LABORATORYCLIA [id number] [address] Platelet mean volume (Bld) [Entitic vol] 9.2 fL Normal 9.0-12.7 [facility] Comment on above: Order Comment: Speci men Type: BLOOD SPECIMENOrdering Facility: [facility] Address: [address] [place] [address] Performed By: #### 5 8410-2 ####[facility] LABORATORYCLIA [id number] [address] [place] Platelets (Bld) [#/Vol] 283 10*3/uL Normal 150-400 [facility] Comment on above: Order Comment: Speci men Type: BLOOD SPECIMENOrdering Facility: [facility] Address: [address] [place] [address] Performed By: #### 5 8410-2 ####[facility]ORATORYCLIA [id number] [place] [address] [place] RBC (Bld) [#/Vol] 3.50 10*6/uL Low 3.90-5.20 [facility] Comment on above: Order Comment: Speci men Type: BLOOD SPECIMENOrdering Facility: [facility] Address: [address] [place] [address] Performed By: #### 5 8410-2 ####[facility]ORATORYCLIA [id number] [address] OF [facility] WBC (Bld) [#/Vol] 9.83 10*3/uL Normal 3.70-11.00 [facility] Comment on above: Order Comment: Speci men Type: BLOOD SPECIMENOrdering Facility: [facility] Address: [address] [place] [address] Performed By: #### 5 8410-2 ####[facility]ORATORYCLIA [id number] [address] [place] CONSULT PROGon 02-09-2024 CONSULT PROG Normal [facility] NUTRITIONon 02-09-2024 NUTRITION Normal [facility] THERAPY NTon 02-09-2024 THERAPY NT Normal [facility] Basic metabolic 2000 panelon 02-08-2024 Anion gap [Moles/Vol] 13 mmol/L Normal 9-18 [facility] Comment on above: Order Comment: Speci men Type: BLOOD SPECIMENOrdering Facility: [facility] Address: [address] [place] [address] Performed By: #### 2 4321-2 ####[facility]ORATORYCLIA [id number] [place] [address] [place] Calcium [Mass/Vol] 9.3 mg/dL Normal 8.5-10.2 [facility] Comment on above: Order Comment: Speci men Type: BLOOD SPECIMENOrdering Facility: [facility] Address: [address] [place] [address] Performed By: #### 2 4321-2 ####[facility]ORATORYCLIA [id number] [place] [address] [place] Chloride [Moles/Vol] 103 mmol/L Normal 97-105 [facility] Comment on above: Order Comment: Speci men Type: BLOOD SPECIMENOrdering Facility: [facility] Address: [address] [place] [address] Performed By: #### 2 4321-2 ####[facility]ORATORYCLIA [id number] [address] [place] CO2 [Moles/Vol] 24 mmol/L Normal 22-30 [facility] Comment on above: Order Comment: Speci men Type: BLOOD SPECIMENOrdering Facility: [facility] Address: [address] [place] [address] Performed By: #### 2 4321-2 ####[facility]ORATORYCLIA [id number] [address] [place] Creatinine [Mass/Vol] 0.60 mg/dL Normal 0.58-0.96 [facility] Comment on above: Order Comment: Speci men Type: BLOOD SPECIMENOrdering Facility: [facility] Address: [address] [place] [address] Performed By: #### 2 4321-2 ####[facility]ORATORYCLIA [id number] [address] [place] Creatinine and Glomerular filtration rate.predicted panel (S/P/Bld) 90 mL/min/1.73m??? Normal >=60 [facility] Comment on above: Order Comment: Speci men Type: BLOOD SPECIMENOrdering Facility: [facility] Address: [address] [place] [address] Result Comment: Felicia mated Glomerular Filtration Rate [...] actual GFR. Performed By: #### 2 4321-2 ####[facility]ORATORYCLIA [id number] [place] [address] [place] Glucose [Mass/Vol] 116 mg/dL High 74-99 [facility] Comment on above: Order Comment: Kristin paige Type: BLOOD SPECIMENOrdering Facility: [facility] Address: [address] [place] [address] Result Comment: The [place] Diabetes [employer] (ADA) provides guidance for cutoff [...] Standards of Medical Care in Diabetes 2016, [place] [employer]. Diabetes Care. 2016.39(Suppl 1). Performed By: #### 2 4321-2 ####[facility]ORATORYCLIA [id number] [place] [address] [place] Potassium [Moles/Vol] 3.3 mmol/L Low 3.7-5.1 [facility] Comment on above: Order Comment: Kristin paige Type: BLOOD SPECIMENOrdering Facility: [facility] Address: [address] [address] Performed By: #### 2 4321-2 ####[facility]ORATORYCLIA [id number] [address] [place] Sodium [Moles/Vol] 140 mmol/L Normal 136-144 [facility] Comment on above: Order Comment: Speci men Type: BLOOD SPECIMENOrdering Facility: [facility] Address: [address] [place] [address] Performed By: #### 2 4321-2 ####[facility]ORATORYCLIA [id number] [place] [address] [place] Urea nitrogen [Mass/Vol] 17 mg/dL Normal 7-21 [facility] Comment on above: Order Comment: Speci men Type: BLOOD SPECIMENOrdering Facility: [facility] Address: [address] [place] [address] Performed By: #### 2 4321-2 ####[facility]ORATORYCLIA [id number] [address] OF [facility] CASE MANAGEMon 02-08-2024 CASE MANAGEM Normal [facility] CASE MANAGEM Normal [facility] CBC panel Auto (Bld)on 02-07 Erythrocyte distribution width (RBC) [Ratio] 14.1 % Normal 11.5-15.0 [facility] Comment on above: Order Comment: Speci men Type: BLOOD SPECIMENOrdering Facility: [facility] Address: [address] [place] [address] Performed By: #### 5 8410-2 ####[facility]ORATORYCLIA [id number] [place] [address] [place] Hematocrit (Bld) [Volume fraction] 33.4 % Low 36.0-46.0 [facility] Comment on above: Order Comment: Speci men Type: BLOOD SPECIMENOrdering Facility: [facility] Address: [address] [place] [address] Performed By: #### 5 8410-2 ####[facility]ORATORYCLIA [id number] [address] [place] Hemoglobin (Bld) [Mass/Vol] 10.9 g/dL Low 11.5-15.5 [facility] Comment on above: Order Comment: Speci men Type: BLOOD SPECIMENOrdering Facility: [facility] Address: [address] [place] [address] Performed By: #### 5 8410-2 ####[facility]ORATORYCLIA [id number] [address] MCH (RBC) [Entitic mass] 31.9 pg Normal 26.0-34.0 [facility] Comment on above: Order Comment: Speci men Type: BLOOD SPECIMENOrdering Facility: [facility] Address: [address] [place] [address] Performed By: #### 5 8410-2 ####[facility]ORATORYCLIA [id number] [address] MCHC (RBC) [Mass/Vol] 32.6 g/dL Normal 30.5-36.0 [facility] Comment on above: Order Comment: Speci men Type: BLOOD SPECIMENOrdering Facility: [facility] Address: [address] [place] [address] Performed By: #### 5 8410-2 ####[facility]ORATORYCLIA [id number] [address] MCV (RBC) [Entitic vol] 97.7 fL Normal 80.0-100.0 [facility] Comment on above: Order Comment: Speci men Type: BLOOD SPECIMENOrdering Facility: [facility] Address: [address] [place] [address] Performed By: #### 5 8410-2 ####[facility]ORATORYCLIA [id number] [address] Nucleated RBC (Bld) [#/Vol] 10*3/uL Normal <0.01 [facility] Comment on above: Order Comment: Speci men Type: BLOOD SPECIMENOrdering Facility: [facility] Address: [address] [place] [address] Performed By: #### 5 8410-2 ####[facility]ORATORYCLIA [id number] [address] STATES [place] [facility] Platelet mean volume (Bld) [Entitic vol] 9.2 fL Normal 9.0-12.7 [facility] Comment on above: Order Comment: Speci men Type: BLOOD SPECIMENOrdering Facility: [facility] Address: [address] [place] [address] Performed By: #### 5 8410-2 ####[facility]ORATORYCLIA [id number] [place] [address] [place] Platelets (Bld) [#/Vol] 275 10*3/uL Normal 150-400 [facility] Comment on above: Order Comment: Speci men Type: BLOOD SPECIMENOrdering Facility: [facility] Address: [address] [place] [address] Performed By: #### 5 8410-2 ####[facility]ORATORYCLIA [id number] [address] STATES [place] [facility] RBC (Bld) [#/Vol] 3.42 10*6/uL Low 3.90-5.20 [facility] Comment on above: Order Comment: Speci men Type: BLOOD SPECIMENOrdering Facility: [facility] Address: [address] [place] [address] Performed By: #### 5 8410-2 ####[facility]ORATORYCLIA [id number] [address] [place] WBC (Bld) [#/Vol] 8.77 10*3/uL Normal 3.70-11.00 [facility] Comment on above: Order Comment: Speci men Type: BLOOD SPECIMENOrdering Facility: [facility] Address: [address] [place] [address] Performed By: #### 5 8410-2 ####[facility]ORATORYCLIA [id number] [address] [place] PT EDon 02-08-2024 PT ED Normal [facility] THERAPY NTon 02-08-2024 THERAPY NT Normal [facility] Basic metabolic 2000 panelon 05-01-2024 Anion gap [Moles/Vol] 10 mmol/L Normal 9-18 [facility] Comment on above: Order Comment: Speci men Type: BLOOD SPECIMENOrdering Facility: [facility] Address: [address] [place] [address] Performed By: #### 2 4321-2 ####[facility]ATORYCLIA [id number] [place] [address] [place] Calcium [Mass/Vol] 8.9 mg/dL Normal 8.5-10.2 [facility] Comment on above: Order Comment: Speci men Type: BLOOD SPECIMENOrdering Facility: [facility] Address: [address] [place] [address] Performed By: #### 2 4321-2 ####[facility]ORATORYCLIA [id number] [place] [address] [place] Chloride [Moles/Vol] 99 mmol/L Normal 97-105 [facility] Comment on above: Order Comment: Speci men Type: BLOOD SPECIMENOrdering Facility: [facility] Address: [address] [place] [address] Performed By: #### 2 4321-2 ####[facility]ATORYCLIA [id number] [place] [address] [place] CO2 [Moles/Vol] 26 mmol/L Normal 22-30 [facility] Comment on above: Order Comment: Speci men Type: BLOOD SPECIMENOrdering Facility: [facility] Address: [address] [place] [address] Performed By: #### 2 4321-2 ####[facility]ATORYCLIA [id number] [place] [address] [place] Creatinine [Mass/Vol] 0.72 mg/dL Normal 0.58-0.96 [facility] Comment on above: Order Comment: Speci men Type: BLOOD SPECIMENOrdering Facility: [facility] Address: [address] [place] [address] Performed By: #### 2 4321-2 ####[facility]ATORYCLIA [id number] [place] [address] [place] Creatinine and Glomerular filtration rate.predicted panel (S/P/Bld) 84 mL/min/1.73m??? Normal >=60 [facility] Comment on above: Order Comment: Kristin paige Type: BLOOD SPECIMENOrdering Facility: [facility] Address: [address] [place] [address] Result Comment: Felicia mated Glomerular Filtration Rate [...] actual GFR. Performed By: #### 2 4321-2 ####[facility]ORATORYCLIA [id number] [place] [address] [place] Glucose [Mass/Vol] 130 mg/dL High 74-99 [facility] Comment on above: Order Comment: Kristin paige Type: BLOOD SPECIMENOrdering Facility: [facility] Address: [address] [place] [address] Result Comment: The [place] Diabetes Association (ADA) provides guidance for cutoff [...] Standards of Medical Care in Diabetes 2016, [place] [employer]. Diabetes Care. 2016.39(Suppl 1). Performed By: #### 2 4321-2 ####[facility]ORATORYCLIA [id number] [address] [id number] [place] Potassium [Moles/Vol] 3.5 mmol/L Low 3.7-5.1 [facility] Comment on above: Order Comment: Speci men Type: BLOOD SPECIMENOrdering Facility: [facility] Address: [address] [place] [address] Performed By: #### 2 4321-2 ####[facility]ATORYCLIA [id number] [place] [address] [place] Sodium [Moles/Vol] 135 mmol/L Low 136-144 [facility] Comment on above: Order Comment: Speci men Type: BLOOD SPECIMENOrdering Facility: [facility] Address: [address] [place] [address] Performed By: #### 2 4321-2 ####[facility]ORATORYCLIA [id number] [place] [address] [place] Urea nitrogen [Mass/Vol] 18 mg/dL Normal 7-21 [facility] Comment on above: Order Comment: Speci men Type: BLOOD SPECIMENOrdering Facility: [facility] Address: [address] [place] [address] Performed By: #### 2 4321-2 ####[facility]ORATORYCLIA [id number] [address] [place] CASE MANAGEMon 02-07-2024 CASE MANAGEM Normal [facility] CASE MANAGEM Normal [facility] CBC W Auto Differential pane l (Bld)on 02-07-2024 Basophils (Bld) [#/Vol] 10*3/uL Normal <0.11 [facility] Comment on above: Order Comment: Speci men Type: BLOOD SPECIMENOrdering Facility: [facility] Address: [address] [place] [address] Performed By: #### 5 7021-8 ####[facility]ORATORYCLIA [id number] [address] [place] Basophils/100 WBC (Bld) 0.2 % Normal [facility] Comment on above: Order Comment: Speci men Type: BLOOD SPECIMENOrdering Facility: [facility] Address: [address] [place] [address] Performed By: #### 5 7021-8 ####[facility]ORATORYCLIA [id number] [address] Differential cell count method Nom (Bld) Auto Normal [facility] Comment on above: Order Comment: Speci men Type: BLOOD SPECIMENOrdering Facility: [facility] Address: [address] [place] [address] Performed By: #### 5 7021-8 ####[facility]ORATORYCLIA [id number] [address] [place] Eosinophils (Bld) [#/Vol] 0.42 10*3/uL Normal <0.46 [facility] Comment on above: Order Comment: Speci men Type: BLOOD SPECIMENOrdering Facility: [facility] Address: [address] [place] [address] Performed By: #### 5 7021-8 ####[facility]ORATORYCLIA [id number] [address] Eosinophils/100 WBC (Bld) 4.6 % Normal [facility] Comment on above: Order Comment: Speci men Type: BLOOD SPECIMENOrdering Facility: [facility] Address: [address] [place] [address] Performed By: #### 5 7021-8 ####[facility]ORATORYCLIA [id number] [address] Erythrocyte distribution width (RBC) [Ratio] 14.0 % Normal 11.5-15.0 [facility] Comment on above: Order Comment: Speci men Type: BLOOD SPECIMENOrdering Facility: [facility] Address: [address] [place] [address] Performed By: #### 5 7021-8 ####[facility]ORATORYCLIA [id number] [address] Hematocrit (Bld) [Volume fraction] 36.7 % Normal 36.0-46.0 [facility] Comment on above: Order Comment: Speci men Type: BLOOD SPECIMENOrdering Facility: [facility] Address: [address] [place] [address] Performed By: #### 5 7021-8 ####[facility]ORATORYCLIA [id number] [place] [address] [place] Hemoglobin (Bld) [Mass/Vol] 11.6 g/dL Normal 11.5-15.5 [facility] Comment on above: Order Comment: Speci men Type: BLOOD SPECIMENOrdering Facility: [facility] Address: [address] [place] [address] Performed By: #### 5 7021-8 ####[facility]ORATORYCLIA [id number] [place] [address] [place] Immature granulocytes (Bld) [#/Vol] 0.04 10*3/uL Normal <0.10 [facility] Comment on above: Order Comment: Speci men Type: BLOOD SPECIMENOrdering Facility: [facility] Address: [address] [place] [address] Performed By: #### 5 7021-8 ####[facility]ORATORYCLIA [id number] [address] [place] Immature granulocytes/100 WBC (Bld) 0.4 % Normal [facility] Comment on above: Order Comment: Speci men Type: BLOOD SPECIMENOrdering Facility: [facility] Address: [address] [place] [address] Performed By: #### 5 7021-8 ####[facility]ORATORYCLIA [id number] [place] [address] [place] Lymphocytes (Bld) [#/Vol] 1.50 10*3/uL Normal 1.00-4.00 [facility] Comment on above: Order Comment: Speci men Type: BLOOD SPECIMENOrdering Facility: [facility] Address: [address] [place] [address] Performed By: #### 5 7021-8 ####[facility]ATORYCLIA [id number] [address] [place] Lymphocytes/100 WBC (Bld) 16.3 % Normal [facility] Comment on above: Order Comment: Speci men Type: BLOOD SPECIMENOrdering Facility: [facility] Address: [address] [place] [address] Performed By: #### 5 7021-8 ####[facility]ORATORYCLIA [id number] [address] MCH (RBC) [Entitic mass] 31.4 pg Normal 26.0-34.0 [facility] Comment on above: Order Comment: Speci men Type: BLOOD SPECIMENOrdering Facility: [facility] Address: [address] [place] [address] Performed By: #### 5 7021-8 ####[facility]ORATORYCLIA [id number] [address] MCHC (RBC) [Mass/Vol] 31.6 g/dL Normal 30.5-36.0 [facility] Comment on above: Order Comment: Speci men Type: BLOOD SPECIMENOrdering Facility: [facility] Address: [address] [place] [address] Performed By: #### 5 7021-8 ####[facility]ORATORYCLIA [id number] [address] STATES [facility] MCV (RBC) [Entitic vol] 99.5 fL Normal 80.0-100.0 [facility] Comment on above: Order Comment: Speci men Type: BLOOD SPECIMENOrdering Facility: [facility] Address: [address] [place] [address] Performed By: #### 5 7021-8 ####[facility]ORATORYCLIA [id number] [address] Monocytes (Bld) [#/Vol] 0.55 10*3/uL Normal <0.87 [facility] Comment on above: Order Comment: Speci men Type: BLOOD SPECIMENOrdering Facility: [facility] Address: [address] [place] [address] Performed By: #### 5 7021-8 ####[facility] LABORATORYCLIA [id number] [address] Monocytes/100 WBC (Bld) 6.0 % Normal [facility] Comment on above: Order Comment: Speci men Type: BLOOD SPECIMENOrdering Facility: [facility] Address: [facility] [place] [address] Performed By: #### 5 7021-8 ####[facility] GENERAL LABORATORYCLIA [id number] [place] [address] [place] Neutrophils (Bld) [#/Vol] 6.70 10*3/uL Normal 1.45-7.50 [facility] Comment on above: Order Comment: Speci men Type: BLOOD SPECIMENOrdering Facility: [facility] Address: [address] [place] [address] Performed By: #### 5 7021-8 ####[facility] LABORATORYCLIA [id number] [place] [address] [place] Neutrophils/100 WBC (Bld) 72.5 % Normal [facility] Comment on above: Order Comment: Speci men Type: BLOOD SPECIMENOrdering Facility: [facility] Address: [address] [place] [address] Performed By: #### 5 7021-8 ####[facility] LABORATORYCLIA [id number] [place] [address] [place] Nucleated RBC (Bld) [#/Vol] 10*3/uL Normal <0.01 [facility] Comment on above: Order Comment: Speci men Type: BLOOD SPECIMENOrdering Facility: [facility] Address: [address] [place] [address] Performed By: #### 5 7021-8 ####[facility] LABORATORYCLIA [id number] [place] [address] [place] Nucleated RBC/100 WBC (Bld) [Ratio] 0.0 /100 WBC Normal [facility] Comment on above: Order Comment: Speci men Type: BLOOD SPECIMENOrdering Facility: [facility] Address: [address] [place] [address] Performed By: #### 5 7021-8 ####[facility] LABORATORYCLIA [id number] [address] STATES OF [facility] Platelet mean volume (Bld) [Entitic vol] 9.1 fL Normal 9.0-12.7 [facility] Comment on above: Order Comment: Speci men Type: BLOOD SPECIMENOrdering Facility: [facility] Address: [address] [place] [address] Performed By: #### 5 7021-8 ####[facility] LABORATORYCLIA [id number] [address] [place] Platelets (Bld) [#/Vol] 256 10*3/uL Normal 150-400 [facility] Comment on above: Order Comment: Speci men Type: BLOOD SPECIMENOrdering Facility: [facility] Address: [address] [place] [address] Performed By: #### 5 7021-8 ####[facility]ITALCLIA [id number] [address] STATES [facility] RBC (Bld) [#/Vol] 3.69 10*6/uL Low 3.90-5.20 [facility] Comment on above: Order Comment: Speci men Type: BLOOD SPECIMENOrdering Facility: [facility] Address: [address] [place] [address] Performed By: #### 5 7021-8 ####[facility] LABORATORYCLIA [id number] [address] [place] WBC (Bld) [#/Vol] 9.23 10*3/uL Normal 3.70-11.00 [facility] Comment on above: Order Comment: Speci men Type: BLOOD SPECIMENOrdering Facility: [facility] Address: [address] [place] [address] Performed By: #### 5 7021-8 ####[facility] LABORATORYCLIA [id number] [address] CBC panel Auto (Bld)on 02-06 Erythrocyte distribution width (RBC) [Ratio] 14.1 % Normal 11.5-15.0 [facility] Comment on above: Order Comment: Speci men Type: BLOOD SPECIMENOrdering Facility: [facility] Address: [address] [place] [address] Performed By: #### 5 8410-2 ####[facility] LABORATORYCLIA [id number] [address] Hematocrit (Bld) [Volume fraction] 34.6 % Low 36.0-46.0 [facility] Comment on above: Order Comment: Speci men Type: BLOOD SPECIMENOrdering Facility: [facility] Address: [address] [place] [address] Performed By: #### 5 8410-2 ####[facility] LABORATORYCLIA [id number] [address] OF [facility] Hemoglobin (Bld) [Mass/Vol] 11.1 g/dL Low 11.5-15.5 [facility] Comment on above: Order Comment: Speci men Type: BLOOD SPECIMENOrdering Facility: [facility] Address: [address] [place] [address] Performed By: #### 5 8410-2 ####[facility] LABORATORYCLIA [id number] [address] MCH (RBC) [Entitic mass] 32.1 pg Normal 26.0-34.0 [facility] Comment on above: Order Comment: Speci men Type: BLOOD SPECIMENOrdering Facility: [facility] Address: [address] [place] [address] Performed By: #### 5 8410-2 ####[facility] LABORATORYCLIA [id number] [address] [place] MCHC (RBC) [Mass/Vol] 32.1 g/dL Normal 30.5-36.0 [facility] Comment on above: Order Comment: Speci men Type: BLOOD SPECIMENOrdering Facility: [facility] Address: [address] [place] [address] Performed By: #### 5 8410-2 ####[facility] LABORATORYCLIA [id number] [place] [address] [place] MCV (RBC) [Entitic vol] 100.0 fL Normal 80.0-100.0 [facility] Comment on above: Order Comment: Speci men Type: BLOOD SPECIMENOrdering Facility: [facility] Address: [address] [place] [address] Performed By: #### 5 8410-2 ####[facility] LABORATORYCLIA [id number] [address] [place] Nucleated RBC (Bld) [#/Vol] 10*3/uL Normal <0.01 [facility] Comment on above: Order Comment: Speci men Type: BLOOD SPECIMENOrdering Facility: [facility] Address: [address] [place] [address] Performed By: #### 5 8410-2 ####[facility] LABORATORYCLIA [id number] [address] [place] Platelet mean volume (Bld) [Entitic vol] 9.2 fL Normal 9.0-12.7 [facility] Comment on above: Order Comment: Speci men Type: BLOOD SPECIMENOrdering Facility: [facility] Address: [address] [place] [address] Performed By: #### 5 8410-2 ####[facility] LABORATORYCLIA [id number] [address] [place] Platelets (Bld) [#/Vol] 242 10*3/uL Normal 150-400 [facility] Comment on above: Order Comment: Speci men Type: BLOOD SPECIMENOrdering Facility: [facility] Address: [address] [place] [address] Performed By: #### 5 8410-2 ####[facility] LABORATORYCLIA [id number] [address] [place] RBC (Bld) [#/Vol] 3.46 10*6/uL Low 3.90-5.20 [facility] Comment on above: Order Comment: Speci men Type: BLOOD SPECIMENOrdering Facility: [facility] Address: [address] [place] [address] Performed By: #### 5 8410-2 ####[facility] LABORATORYCLIA [id number] [place] [address] [place] WBC (Bld) [#/Vol] 7.82 10*3/uL Normal 3.70-11.00 [facility] Comment on above: Order Comment: Speci men Type: BLOOD SPECIMENOrdering Facility: [facility] Address: [address] [place] [address] Performed By: #### 5 8410-2 ####[facility] LABORATORYCLIA [id number] [address] [place] CONSULTon 02-07-2024 CONSULT Normal [facility] CONSULT PROGon 02-07-2024 CONSULT PROG Normal [facility] THERAPY NTon 02-07-2024 THERAPY NT Normal [facility] Basic metabolic 2000 panelon 02-06-2024 Anion gap [Moles/Vol] 11 mmol/L Normal 9-18 [facility] Comment on above: Order Comment: Speci men Type: BLOOD SPECIMENOrdering Facility: [facility] Address: [address] [place] [id number] Performed By: #### 2 4321-2, , 1 ####[facility] LABORATORYCLIA [id number] [place] [address] [place] Calcium [Mass/Vol] 9.0 mg/dL Normal 8.5-10.2 [facility] Comment on above: Order Comment: Speci men Type: BLOOD SPECIMENOrdering Facility: [facility] Address: [address] [place] [address] Performed By: #### 2 4321-2, 27874-0, 2777-1 ####[facility] LABORATORYCLIA [id number] [place] [address] [place] Chloride [Moles/Vol] 98 mmol/L Normal 97-105 [facility] Comment on above: Order Comment: Speci men Type: BLOOD SPECIMENOrdering Facility: [facility] Address: [address] [place] [address] Performed By: #### 2 4321-2, , 2776-10 ####[facility] LABORATORYCLIA [id number] [place] [address] [place] CO2 [Moles/Vol] 28 mmol/L Normal 22-30 [facility] Comment on above: Order Comment: Speci men Type: BLOOD SPECIMENOrdering Facility: [facility] Address: [address] [place] [address] Performed By: #### 2 4321-2, , 2776-10 ####[facility]PITALCLIA [id number] [place] [address] [place] Creatinine [Mass/Vol] 0.77 mg/dL Normal 0.58-0.96 [facility] Comment on above: Order Comment: Speci men Type: BLOOD SPECIMENOrdering Facility: [facility] Address: [address] [place] [address] Performed By: #### 2 432-2, , 2776-10 ####[facility]OSPITALCLIA [id number] [place] [id number] [place] OF [facility] Creatinine and Glomerular filtration rate.predicted panel (S/P/Bld) 77 mL/min/1.73m??? Normal >=60 [facility] Comment on above: Order Comment: Speci men Type: BLOOD SPECIMENOrdering Facility: [facility] Address: [address] [place] [address] Result Comment: Felicia mated Glomerular Filtration Rate [...] Performed By: #### 2 4321-2, , 2776-10 ####[facility] LABORATORYCLIA [id number] [place] [address] [place] Glucose [Mass/Vol] 118 mg/dL High 74-99 [facility] Comment on above: Order Comment: Speci men Type: BLOOD SPECIMENOrdering Facility: [facility] Address: [address] [place] [address] Result Comment: The [place] [employer] (ADA) provides guidance for cutoff [...] Standards of Medical Care in Diabetes 2016, [place] [employer]. Diabetes Care. 2016.39(Suppl 1). Performed By: #### 2 4321-2, , 2776-10 ####[facility] LABORATORYCLIA [id number] [place] [address] [place] Potassium [Moles/Vol] 3.3 mmol/L Low 3.7-5.1 [facility] Comment on above: Order Comment: Kristin royal Type: BLOOD SPECIMENOrdering Facility: [facility] Address: [address] [place] [address] Performed By: #### 2 4321-2, , 2776-10 ####[facility] LABORATORYCLIA [id number] [place] [address] [place] Sodium [Moles/Vol] 137 mmol/L Normal 136-144 [facility] Comment on above: Order Comment: Speci men Type: BLOOD SPECIMENOrdering Facility: [facility] Address: [address] [place] [address] Performed By: #### 2 4321-2, , 2776-10 ####[facility] LABORATORYCLIA [id number] [place] [address] [place] Urea nitrogen [Mass/Vol] 16 mg/dL Normal 7-21 [facility] Comment on above: Order Comment: Speci men Type: BLOOD SPECIMENOrdering Facility: [facility] Address: [address] [place] [address] Performed By: #### 2 4321-2, 84395-1, 2777-1 ####[facility] LABORATORYCLIA [id number] [place] [address] [place] CBC W Auto Differential pane l (Bld)on 02-06-2024 Basophils (Bld) [#/Vol] 0.04 10*3/uL Normal <0.11 [facility] Comment on above: Order Comment: Speci men Type: BLOOD SPECIMENOrdering Facility: [facility] Address: [address] [place] [address] Performed By: #### 5 7021-8 ####[facility] LABORATORYCLIA [id number] [place] [address] [place] Basophils/100 WBC (Bld) 0.4 % Normal [facility] Comment on above: Order Comment: Speci men Type: BLOOD SPECIMENOrdering Facility: [facility] Address: [address] [place] [address] Performed By: #### 5 7021-8 ####[facility] LABORATORYCLIA [id number] [address] [place] Differential cell count method Nom (Bld) Auto Normal [facility] Comment on above: Order Comment: Speci men Type: BLOOD SPECIMENOrdering Facility: [facility] Address: [address] [place] [address] Performed By: #### 5 7021-8 ####[facility]ORATORYCLIA [id number] [place] [address] [place] Eosinophils (Bld) [#/Vol] 0.45 10*3/uL Normal <0.46 [facility] Comment on above: Order Comment: Speci men Type: BLOOD SPECIMENOrdering Facility: [facility] Address: [address] [place] [address] Performed By: #### 5 7021-8 ####[facility] LABORATORYCLIA [id number] [address] [place] Eosinophils/100 WBC (Bld) 4.3 % Normal [facility] Comment on above: Order Comment: Speci men Type: BLOOD SPECIMENOrdering Facility: [facility] Address: [address] [place] [address] Performed By: #### 5 7021-8 ####[facility] LABORATORYCLIA [id number] [address] [place] Erythrocyte distribution width (RBC) [Ratio] 13.9 % Normal 11.5-15.0 [facility] Comment on above: Order Comment: Speci men Type: BLOOD SPECIMENOrdering Facility: [facility] Address: [address] [place] [address] Performed By: #### 5 7021-8 ####[facility] LABORATORYCLIA [id number] [address] [place] Hematocrit (Bld) [Volume fraction] 35.6 % Low 36.0-46.0 [facility] Comment on above: Order Comment: Speci men Type: BLOOD SPECIMENOrdering Facility: [facility] Address: [address] [place] [address] Performed By: #### 5 7021-8 ####[facility] LABORATORYCLIA [id number] [address] [place] Hemoglobin (Bld) [Mass/Vol] 11.4 g/dL Low 11.5-15.5 [facility] Comment on above: Order Comment: Speci men Type: BLOOD SPECIMENOrdering Facility: [facility] Address: [address] [place] [address] Performed By: #### 5 7021-8 ####[facility] LABORATORYCLIA [id number] [address] [place] Immature granulocytes (Bld) [#/Vol] 0.04 10*3/uL Normal <0.10 [facility] Comment on above: Order Comment: Speci men Type: BLOOD SPECIMENOrdering Facility: [facility] Address: [address] [place] [address] Performed By: #### 5 7021-8 ####[facility] LABORATORYCLIA [id number] [address] Immature granulocytes/100 WBC (Bld) 0.4 % Normal [facility] Comment on above: Order Comment: Speci men Type: BLOOD SPECIMENOrdering Facility: [facility] Address: [address] [place] [address] Performed By: #### 5 7021-8 ####[facility] LABORATORYCLIA [id number] [address] [place] Lymphocytes (Bld) [#/Vol] 2.06 10*3/uL Normal 1.00-4.00 [facility] Comment on above: Order Comment: Speci men Type: BLOOD SPECIMENOrdering Facility: [facility] Address: [address] [place] [address] Performed By: #### 5 7021-8 ####[facility] LABORATORYCLIA [id number] [address] Lymphocytes/100 WBC (Bld) 19.8 % Normal [facility] Comment on above: Order Comment: Speci men Type: BLOOD SPECIMENOrdering Facility: [facility] Address: [address] [place] [address] Performed By: #### 5 7021-8 ####[facility] LABORATORYCLIA [id number] [address] [place] MCH (RBC) [Entitic mass] 31.8 pg Normal 26.0-34.0 [facility] Comment on above: Order Comment: Speci men Type: BLOOD SPECIMENOrdering Facility: [facility] Address: [address] [place] [address] Performed By: #### 5 7021-8 ####[facility] LABORATORYCLIA [id number] [address] [place] MCHC (RBC) [Mass/Vol] 32.0 g/dL Normal 30.5-36.0 [facility] Comment on above: Order Comment: Speci men Type: BLOOD SPECIMENOrdering Facility: [facility] Address: [address] [place] [address] Performed By: #### 5 7021-8 ####[facility] LABORATORYCLIA [id number] [address] [place] MCV (RBC) [Entitic vol] 99.2 fL Normal 80.0-100.0 [facility] Comment on above: Order Comment: Speci men Type: BLOOD SPECIMENOrdering Facility: [facility] Address: [address] [place] [address] Performed By: #### 5 7021-8 ####[facility] LABORATORYCLIA [id number] [place] [address] [place] Monocytes (Bld) [#/Vol] 0.74 10*3/uL Normal <0.87 [facility] Comment on above: Order Comment: Speci men Type: BLOOD SPECIMENOrdering Facility: [facility] Address: [address] [place] [address] Performed By: #### 5 7021-8 ####[facility] LABORATORYCLIA [id number] [address] [place] Monocytes/100 WBC (Bld) 7.1 % Normal [facility] Comment on above: Order Comment: Speci men Type: BLOOD SPECIMENOrdering Facility: [facility] Address: [address] [place] [address] Performed By: #### 5 7021-8 ####[facility] LABORATORYCLIA [id number] [place] [address] [place] Neutrophils (Bld) [#/Vol] 7.06 10*3/uL Normal 1.45-7.50 [facility] Comment on above: Order Comment: Speci men Type: BLOOD SPECIMENOrdering Facility: [facility] Address: [address] [place] [address] Performed By: #### 5 7021-8 ####[facility]ORATORYCLIA [id number] [address] [place] Neutrophils/100 WBC (Bld) 68.0 % Normal [facility] Comment on above: Order Comment: Speci men Type: BLOOD SPECIMENOrdering Facility: [facility] Address: [facility] [place] [address] Performed By: #### 5 7021-8 ####[facility] LABORATORYCLIA [id number] [place] [address] [place] Nucleated RBC (Bld) [#/Vol] 10*3/uL Normal <0.01 [facility] Comment on above: Order Comment: Speci men Type: BLOOD SPECIMENOrdering Facility: [facility] Address: [address] [place] [address] Performed By: #### 5 7021-8 ####[facility] LABORATORYCLIA [id number] [place] [address] [place] Nucleated RBC/100 WBC (Bld) [Ratio] 0.0 /100 WBC Normal [facility] Comment on above: Order Comment: Speci men Type: BLOOD SPECIMENOrdering Facility: [facility] Address: [address] [place] [address] Performed By: #### 5 7021-8 ####[facility] LABORATORYCLIA [id number] [place] [address] [place] Platelet mean volume (Bld) [Entitic vol] 8.9 fL Low 9.0-12.7 [facility] Comment on above: Order Comment: Speci men Type: BLOOD SPECIMENOrdering Facility: [facility] Address: [address] [place] [address] Performed By: #### 5 7021-8 ####[facility] LABORATORYCLIA [id number] [place] [address] [place] Platelets (Bld) [#/Vol] 228 10*3/uL Normal 150-400 [facility] Comment on above: Order Comment: Speci men Type: BLOOD SPECIMENOrdering Facility: [facility] Address: [address] [place] [address] Performed By: #### 5 7021-8 ####[facility] LABORATORYCLIA [id number] [address] [place] RBC (Bld) [#/Vol] 3.59 10*6/uL Low 3.90-5.20 [facility] Comment on above: Order Comment: Speci men Type: BLOOD SPECIMENOrdering Facility: [facility] Address: [address] [place] [address] Performed By: #### 5 7021-8 ####[facility] LABORATORYCLIA [id number] [address] WBC (Bld) [#/Vol] 10.39 10*3/uL Normal 3.70-11.00 [facility] Comment on above: Order Comment: Speci men Type: BLOOD SPECIMENOrdering Facility: [facility] Address: [address] [place] [address] Performed By: #### 5 7021-8 ####[facility] LABORATORYCLIA [id number] [address] OF [facility] CONSULT PROGon 02-06-2024 CONSULT PROG Normal [facility] Magnesium SerPl-ncon 02-05 Magnesium [Mass/Vol] 2.3 mg/dL Normal 1.7-2.3 [facility] Comment on above: Order Comment: Speci men Type: BLOOD SPECIMENOrdering Facility: [facility] Address: [address] [place] [address] Performed By: #### 2 4321-2, 87291-9, 2777-1 ####[facility] LABORATORYCLIA [id number] [address] [place] NUTRITIONon 02-06-2024 NUTRITION Normal [facility] Phosphate SerPl-mCncon 02-05 Phosphate [Mass/Vol] 2.7 mg/dL Normal 2.7-4.8 [facility] Comment on above: Order Comment: Speci men Type: BLOOD SPECIMENOrdering Facility: [facility] Address: [address] [place] [address] Performed By: #### 2 4321-2, , 2776-10 ####[facility] LABORATORYCLIA [id number] [place] [address] [place] Bacteria Ur Culton Bacteria identified Cx Nom (U) Abnormal [facility] Comment on above: Performed By: #### 6 30-4 ####[facility] LABORATORYCLIA [id number] [place] [address] [place] Basic metabolic 2000 panelon 02-05-2024 Anion gap [Moles/Vol] 11 mmol/L Normal 9-18 [facility] Comment on above: Order Comment: Speci men Type: BLOOD SPECIMENOrdering Facility: [facility] Address: [address] [place] [address] Performed By: #### 2 4321-2, , 2776-10 ####[facility] LABORATORYCLIA [id number] [place] [address] [place] Calcium [Mass/Vol] 8.9 mg/dL Normal 8.5-10.2 [facility] Comment on above: Order Comment: Speci men Type: BLOOD SPECIMENOrdering Facility: [facility] Address: [address] [place] [address] Performed By: #### 2 4321-2, , 2776-10 ####[facility] LABORATORYCLIA [id number] [place] [address] [place] Chloride [Moles/Vol] 103 mmol/L Normal 97-105 [facility] Comment on above: Order Comment: Speci men Type: BLOOD SPECIMENOrdering Facility: [facility] Address: [address] [place] [address] Performed By: #### 2 4321-2, , 2776-10 ####[facility] LABORATORYCLIA [id number] [place] [address] [place] CO2 [Moles/Vol] 23 mmol/L Normal 22-30 [facility] Comment on above: Order Comment: Speci men Type: BLOOD SPECIMENOrdering Facility: [facility] Address: [address] [place] [address] Performed By: #### 2 4321-2, , 2776-10 ####[facility] HOSPITALIA [id number] [place] [id number] [place] [facility] Creatinine [Mass/Vol] 0.68 mg/dL Normal 0.58-0.96 [facility] Comment on above: Order Comment: Specedda men Type: BLOOD SPECIMENOrdering Facility: [facility] Address: [address] [place] [address] Performed By: #### 2 4321-2, , 2776-10 ####[facility]UN[facility] HOSPITALIA [id number] [place] [id number] [facility] Creatinine and Glomerular filtration rate.predicted panel (S/P/Bld) 87 mL/min/1.73m??? Normal >=60 [facility] Comment on above: Order Comment: Kristin paige Type: BLOOD SPECIMENOrdering Facility: [facility] Address: [address] [place] [address] Result Comment: Feliica mated Glomerular Filtration Rate (eGFR) is calculated [...] Performed By: #### 2 4321-2, , 2776-10 ####[facility] LABORATORYIA [id number] [place] [id number] [place] Glucose [Mass/Vol] 139 mg/dL High 74-99 [facility] Comment on above: Order Comment: Kristin paige Type: BLOOD SPECIMENOrdering Facility: [facility] Address: [address] [place] [address] Result Comment: [place] Diabetes Association (ADA) provides guidance for cutoff [...] Standards of Medical Care in Diabetes 2016, [place] [employer]. Diabetes Care. 2016.39(Suppl 1). Performed By: #### 2 4321-2, , 2776-10 ####[facility] LABORATORYCLIA [id number] [place] [id number] [place] Potassium [Moles/Vol] 3.7 mmol/L Normal 3.7-5.1 [facility] Comment on above: Order Comment: Kristin paige Type: BLOOD SPECIMENOrdering Facility: [facility] Address: [address] [place] [address] Performed By: #### 2 432-2, , 2776-10 ####[facility] LABORATORYCLIA [id number] [place] [address] [place] Sodium [Moles/Vol] 137 mmol/L Normal 136-144 [facility] Comment on above: Order Comment: Kristin paige Type: BLOOD SPECIMENOrdering Facility: [facility] Address: [address] [place] [address] Performed By: #### 2 4321-2, , 2776-10 ####[facility] LABORATORYCLIA [id number] [place] [id number] [place] Urea nitrogen [Mass/Vol] 15 mg/dL Normal 7-21 [facility] Comment on above: Order Comment: Kristin paige Type: BLOOD SPECIMENOrdering Facility: [facility] Address: [address] [place] [address] Performed By: #### 2 4321-2, , 2776-10 ####[facility] LABORATORYCLIA [id number] [place] [id number] [place] CASE MANAGEMon 02-05-2024 CASE MANAGEM Normal [facility] CBC W Auto Differential pane l (Bld)on 02-05-2024 Basophils (Bld) [#/Vol] 10*3/uL Normal <0.11 [facility] Comment on above: Order Comment: Speci men Type: BLOOD SPECIMENOrdering Facility: [facility] Address: [address] [place] [address] Performed By: #### 5 7021-8 ####[facility]ATORYCLIA [id number] [address] [place] Basophils/100 WBC (Bld) 0.2 % Normal [facility] Comment on above: Order Comment: Speci men Type: BLOOD SPECIMENOrdering Facility: [facility] Address: [address] [place] [address] Performed By: #### 5 7021-8 ####[facility] LABORATORYCLIA [id number] [address] OF [facility] Differential cell count method Nom (Bld) Auto Normal [facility] Comment on above: Order Comment: Speci men Type: BLOOD SPECIMENOrdering Facility: [facility] Address: [address] [place] [address] Performed By: #### 5 7021-8 ####[facility] LABORATORYCLIA [id number] [place] [address] [place] Eosinophils (Bld) [#/Vol] 0.06 10*3/uL Normal <0.46 [facility] Comment on above: Order Comment: Speci men Type: BLOOD SPECIMENOrdering Facility: [facility] Address: [address] [place] [address] Performed By: #### 5 7021-8 ####[facility] LABORATORYCLIA [id number] [address] [place] Eosinophils/100 WBC (Bld) 0.5 % Normal [facility] Comment on above: Order Comment: Speci men Type: BLOOD SPECIMENOrdering Facility: [facility] Address: [address] [place] [address] Performed By: #### 5 7021-8 ####[facility] LABORATORYCLIA [id number] [address] STATES OF [facility] Erythrocyte distribution width (RBC) [Ratio] 13.6 % Normal 11.5-15.0 [facility] Comment on above: Order Comment: Speci men Type: BLOOD SPECIMENOrdering Facility: [facility] Address: [address] [place] [address] Performed By: #### 5 7021-8 ####[facility] LABORATORYCLIA [id number] [address] [place] Hematocrit (Bld) [Volume fraction] 32.3 % Low 36.0-46.0 [facility] Comment on above: Order Comment: Speci men Type: BLOOD SPECIMENOrdering Facility: [facility] Address: [address] [place] [address] Performed By: #### 5 7021-8 ####[facility] LABORATORYCLIA [id number] [address] Hemoglobin (Bld) [Mass/Vol] 10.9 g/dL Low 11.5-15.5 [facility] Comment on above: Order Comment: Speci men Type: BLOOD SPECIMENOrdering Facility: [facility] Address: [address] [place] [address] Performed By: #### 5 7021-8 ####[facility] LABORATORYCLIA [id number] [address] OF [place] Immature granulocytes (Bld) [#/Vol] 0.04 10*3/uL Normal <0.10 [facility] Comment on above: Order Comment: Speci men Type: BLOOD SPECIMENOrdering Facility: [facility] Address: [address] [place] [address] Performed By: #### 5 7021-8 ####[facility]ORATORYCLIA [id number] [address] Immature granulocytes/100 WBC (Bld) 0.3 % Normal [facility] Comment on above: Order Comment: Speci men Type: BLOOD SPECIMENOrdering Facility: [facility] Address: [address] [place] [address] Performed By: #### 5 7021-8 ####[facility]ORATORYCLIA [id number] [address] Lymphocytes (Bld) [#/Vol] 1.38 10*3/uL Normal 1.00-4.00 [facility] Comment on above: Order Comment: Speci men Type: BLOOD SPECIMENOrdering Facility: [facility] Address: [address] [place] [address] Performed By: #### 5 7021-8 ####[facility]ORATORYCLIA [id number] [address] Lymphocytes/100 WBC (Bld) 11.6 % Normal [facility] Comment on above: Order Comment: Speci men Type: BLOOD SPECIMENOrdering Facility: [facility] Address: [address] [place] [address] Performed By: #### 5 7021-8 ####[facility] LABORATORYCLIA [id number] [address] MCH (RBC) [Entitic mass] 32.2 pg Normal 26.0-34.0 [facility] Comment on above: Order Comment: Speci men Type: BLOOD SPECIMENOrdering Facility: [facility] Address: [address] [place] [address] Performed By: #### 5 7021-8 ####[facility]ORATORYCLIA [id number] [address] MCHC (RBC) [Mass/Vol] 33.7 g/dL Normal 30.5-36.0 [facility] Comment on above: Order Comment: Speci men Type: BLOOD SPECIMENOrdering Facility: [facility] Address: [address] [place] [address] Performed By: #### 5 7021-8 ####[facility]ORATORYCLIA [id number] [address] MCV (RBC) [Entitic vol] 95.6 fL Normal 80.0-100.0 [facility] Comment on above: Order Comment: Speci men Type: BLOOD SPECIMENOrdering Facility: [facility] Address: [facility] [place] [address] Performed By: #### 5 7021-8 ####[facility] LABORATORYCLIA [id number] [place] [address] [place] Monocytes (Bld) [#/Vol] 0.68 10*3/uL Normal <0.87 [facility] Comment on above: Order Comment: Speci men Type: BLOOD SPECIMENOrdering Facility: [facility] Address: [address] [place] [address] Performed By: #### 5 7021-8 ####[facility]ORATORYCLIA [id number] [address] [place] Monocytes/100 WBC (Bld) 5.7 % Normal [facility] Comment on above: Order Comment: Speci men Type: BLOOD SPECIMENOrdering Facility: [facility] Address: [address] [place] [address] Performed By: #### 5 7021-8 ####[facility]ORATORYCLIA [id number] [place] [address] [place] Neutrophils (Bld) [#/Vol] 9.68 10*3/uL High 1.45-7.50 [facility] Comment on above: Order Comment: Speci men Type: BLOOD SPECIMENOrdering Facility: [facility] Address: [address] [place] [address] Performed By: #### 5 7021-8 ####[facility] LABORATORYCLIA [id number] [place] [address] [place] Neutrophils/100 WBC (Bld) 81.7 % Normal [facility] Comment on above: Order Comment: Speci men Type: BLOOD SPECIMENOrdering Facility: [facility] Address: [address] [place] [address] Performed By: #### 5 7021-8 ####[facility]ATORYCLIA [id number] [address] [place] Nucleated RBC (Bld) [#/Vol] 10*3/uL Normal <0.01 [facility] Comment on above: Order Comment: Speci men Type: BLOOD SPECIMENOrdering Facility: [facility] Address: [address] [place] [address] Performed By: #### 5 7021-8 ####[facility]ORATORYCLIA [id number] [address] [place] Nucleated RBC/100 WBC (Bld) [Ratio] 0.0 /100 WBC Normal [facility] Comment on above: Order Comment: Speci men Type: BLOOD SPECIMENOrdering Facility: [facility] Address: [address] [place] [address] Performed By: #### 5 7021-8 ####[facility]ORATORYCLIA [id number] [place] [address] [place] Platelet mean volume (Bld) [Entitic vol] 8.9 fL Low 9.0-12.7 [facility] Comment on above: Order Comment: Speci men Type: BLOOD SPECIMENOrdering Facility: [facility] Address: [address] [place] [address] Performed By: #### 5 7021-8 ####[facility]ORATORYCLIA [id number] [address] [place] Platelets (Bld) [#/Vol] 234 10*3/uL Normal 150-400 [facility] Comment on above: Order Comment: Speci men Type: BLOOD SPECIMENOrdering Facility: [facility] Address: [address] [place] [address] Performed By: #### 5 7021-8 ####[facility]ORATORYCLIA [id number] [address] [place] RBC (Bld) [#/Vol] 3.38 10*6/uL Low 3.90-5.20 [facility] Comment on above: Order Comment: Speci men Type: BLOOD SPECIMENOrdering Facility: [facility] Address: [address] [place] [address] Performed By: #### 5 7021-8 ####[facility]ORATORYCLIA [id number] [address] WBC (Bld) [#/Vol] 11.86 10*3/uL High 3.70-11.00 [facility] Comment on above: Order Comment: Speci men Type: BLOOD SPECIMENOrdering Facility: [facility] Address: [address] [place] [address] Performed By: #### 5 7021-8 ####[facility]ORATORYCLIA [id number] [address] [place] CONSULTon 02-05-2024 CONSULT Normal [facility] Calcium.ionized [Moles/Vol]o n 02-05-2024 Calcium.ionized (BldV) [Mass/Vol] 1.20 mmol/L Normal 1.08-1.30 [facility] Comment on above: Order Comment: Speci men Type: BLOOD SPECIMENOrdering Facility: [facility] Address: [address] [place] [address] Performed By: #### 1 995-0 ####[facility]ORATORYCLIA [id number] [address] Calcium.ionized adjusted to pH 7.4 (Bld) [Moles/Vol] 1.23 mmol/L Normal 1.08-1.30 [facility] Comment on above: Order Comment: Speci men Type: BLOOD SPECIMENOrdering Facility: [facility] Address: [address] [place] [address] Performed By: #### 1 995-0 ####[facility]ORATORYCLIA [id number] [address] Magnesium SerPl-mCncon 02-04 Magnesium [Mass/Vol] 2.0 mg/dL Normal 1.7-2.3 [facility] Comment on above: Order Comment: Speci men Type: BLOOD SPECIMENOrdering Facility: [facility] Address: [address] [place] [address] Performed By: #### 2 4321-2, 31885-3, 2777-1 ####[facility]ORATORYCLIA [id number] [address] [place] Phosphate SerPl-mCncon 02-04 Phosphate [Mass/Vol] 2.9 mg/dL Normal 2.7-4.8 [facility] Comment on above: Order Comment: Speci men Type: BLOOD SPECIMENOrdering Facility: [facility] Address: [address] [place] [address] Performed By: #### 2 4321-2, 54989-9, 2777-1 ####[facility]ORATORYCLIA [id number] [address] THERAPY NTon 02-05-2024 THERAPY NT Normal [facility] THERAPY NT Normal [facility] THERAPY NT Normal [facility] ANES POSTPROC EVALon 024 ANES POSTPROC EVAL Normal [facility] ANES PRE-OPon 02-04-2024 ANES PRE-OP Normal [facility] ARTERIAL BLOOD GASESon 02-03 Base deficit (BldA) [Moles/Vol] mmol/L Normal -2-0 [facility] Comment on above: Order Comment: Speci men Type: ARTERIAL BLOOD SPECIMENOrdering Facility: [facility] Address: [address] [place] [address] Performed By: #### A LLBG ####[facility]ORATORYCLIA [id number] [address] [place] Body temperature 98.06 [degF] Normal [facility] Comment on above: Order Comment: Speci men Type: ARTERIAL BLOOD SPECIMENOrdering Facility: [facility] Address: [address] [place] [address] Performed By: #### A LLBG ####[facility]ORATORYCLIA [id number] [address] Calcium.ionized (BldV) [Mass/Vol] 1.21 mmol/L Normal 1.08-1.30 [facility] Comment on above: Order Comment: Speci men Type: ARTERIAL BLOOD SPECIMENOrdering Facility: [facility] Address: [address] [place] [address] Performed By: #### A LLBG ####[facility]ORATORYCLIA [id number] [place] [address] [place] Calcium.ionized adjusted to pH 7.4 (BldA) [Moles/Vol] 1.21 mmol/L Normal 1.08-1.30 [facility] Comment on above: Order Comment: Speci men Type: ARTERIAL BLOOD SPECIMENOrdering Facility: [facility] Address: [address] [place] [address] Performed By: #### A LLBG ####[facility]ORATORYCLIA [id number] [address] [place] Carboxyhemoglobin (BldA) [Mass fraction] 1.4 % Normal 0.0-2.0 [facility] Comment on above: Order Comment: Speci men Type: ARTERIAL BLOOD SPECIMENOrdering Facility: [facility] Address: [address] [place] [address] Result Comment: Carb oxyhemoglobin Reference Range for Smokers: 2.0-8.0% Performed By: #### A LLBG ####[facility]ORATORYCLIA [id number] [place] [address] [place] Chloride [Moles/Vol] 108 mmol/L Normal 102-109 [facility] Comment on above: Order Comment: Speci men Type: ARTERIAL BLOOD SPECIMENOrdering Facility: [facility] Address: [address] [place] [address] Performed By: #### A LLBG ####[facility]ORATORYCLIA [id number] [place] [address] [place] CO2 (Bld) [Partial pressure] 40 mm Hg Normal 36-46 [facility] Comment on above: Order Comment: Speci men Type: ARTERIAL BLOOD SPECIMENOrdering Facility: [facility] Address: [address] [place] [address] Performed By: #### A LLBG ####[facility]ORATORYCLIA [id number] [address] OF [facility] CO2 adjusted to patient's actual temperature (Bld) [Partial pressure] 39 mmHg Normal 36-46 [facility] Comment on above: Order Comment: Speci men Type: ARTERIAL BLOOD SPECIMENOrdering Facility: [facility] Address: [address] [place] [address] Performed By: #### A LLBG ####[facility]ORATORYCLIA [id number] [address] [place] Glucose [Mass/Vol] 161 mg/dL High 60-105 [facility] Comment on above: Order Comment: Speci men Type: ARTERIAL BLOOD SPECIMENOrdering Facility: [facility] Address: [address] [place] [address] Performed By: #### A LLBG ####[facility]ORATORYCLIA [id number] [address] [place] HCO3 (Bld) [Moles/Vol] 24 mmol/L Normal 22-26 [facility] Comment on above: Order Comment: Speci men Type: ARTERIAL BLOOD SPECIMENOrdering Facility: [facility] Address: [address] [place] [address] Performed By: #### A LLBG ####[facility]ORATORYCLIA [id number] [address] [place] Hematocrit (Bld) [Volume fraction] 34.0 % Low 36.0-46.0 [facility] Comment on above: Order Comment: Speci men Type: ARTERIAL BLOOD SPECIMENOrdering Facility: [facility] Address: [address] [place] [address] Performed By: #### A LLBG ####[facility]ORATORYCLIA [id number] [address] [place] Lactate [Moles/Vol] 1.5 mmol/L Normal 0.5-2.2 [facility] Comment on above: Order Comment: Speci men Type: ARTERIAL BLOOD SPECIMENOrdering Facility: [facility] Address: [address] [place] [address] Performed By: #### A LLBG ####[facility]ORATORYCLIA [id number] [place] [id number] [place] Methemoglobin (Bld) [Mass fraction] 0.5 % Normal 0.0-1.5 [facility] Comment on above: Order Comment: Speci men Type: ARTERIAL BLOOD SPECIMENOrdering Facility: [facility] Address: [address] [place] [address] Performed By: #### A LLBG ####[facility]ORATORYCLIA [id number] [address] [place] O2 THERAPY Hi-Flow Nasal Cannula-Heated Normal [facility] Comment on above: Order Comment: Speci men Type: ARTERIAL BLOOD SPECIMENOrdering Facility: [facility] Address: [address] [place] [address] Result Comment: 60L 63% on airvo Performed By: #### A LLBG ####[facility]ORATORYCLIA [id number] [address] [place] Oxygen (Bld) [Partial pressure] 111 mm Hg High 85-95 [facility] Comment on above: Order Comment: Speci men Type: ARTERIAL BLOOD SPECIMENOrdering Facility: [facility] Address: [address] [place] [address] Performed By: #### A LLBG ####[facility]ORATORYCLIA [id number] [address] Oxygen adjusted to patient's actual temperature (Bld) [Partial pressure] 109 mmHg High 85-95 [facility] Comment on above: Order Comment: Speci men Type: ARTERIAL BLOOD SPECIMENOrdering Facility: [facility] Address: [address] [place] [address] Performed By: #### A LLBG ####[facility]ORATORYCLIA [id number] [address] [place] Oxyhemoglobin (BldA) [Mass fraction] 97 % Normal 95-98 [facility] Comment on above: Order Comment: Speci men Type: ARTERIAL BLOOD SPECIMENOrdering Facility: [facility] Address: [address] [place] [address] Performed By: #### A LLBG ####[facility] LABORATORYCLIA [id number] [place] [address] [place] pH (Bld) 7.40 [pH] Normal 7.35-7.45 [facility] Comment on above: Order Comment: Speci men Type: ARTERIAL BLOOD SPECIMENOrdering Facility: [facility] Address: [address] [place] [address] Performed By: #### A LLBG ####[facility]ORATORYCLIA [id number] [address] [place] pH adjusted to patient's actual temperature (Bld) 7.40 Normal 7.35-7.45 [facility] Comment on above: Order Comment: Speci men Type: ARTERIAL BLOOD SPECIMENOrdering Facility: [facility] Address: [address] [place] [address] Performed By: #### A LLBG ####[facility] LABORATORYCLIA [id number] [place] [address] [place] Potassium [Moles/Vol] 3.7 mmol/L Normal 3.5-5.0 [facility] Comment on above: Order Comment: Speci men Type: ARTERIAL BLOOD SPECIMENOrdering Facility: [facility] Address: [address] [place] [address] Performed By: #### A LLBG ####[facility]ATORYCLIA [id number] [place] [address] [place] Sodium [Moles/Vol] 136 mmol/L Normal 136-144 [facility] Comment on above: Order Comment: Speci men Type: ARTERIAL BLOOD SPECIMENOrdering Facility: [facility] Address: [address] [place] [address] Performed By: #### A LLBG ####[facility]ATORYCLIA [id number] [place] [address] [place] Base deficit (BldA) [Moles/Vol] -2 mmol/L Normal -2-0 [facility] Comment on above: Order Comment: Speci men Type: ARTERIAL BLOOD SPECIMENOrdering Facility: [facility] Address: [address] [place] [address] Performed By: #### A LLBG ####[facility] LABORATORYCLIA [id number] [address] OF [facility] Body temperature 97.7 [degF] Normal [facility] Comment on above: Order Comment: Speci men Type: ARTERIAL BLOOD SPECIMENOrdering Facility: [facility] Address: [address] [place] [address] Performed By: #### A LLBG ####[facility] LABORATORYCLIA [id number] [address] OF [facility] Calcium.ionized (BldV) [Mass/Vol] 1.18 mmol/L Normal 1.08-1.30 [facility] Comment on above: Order Comment: Speci men Type: ARTERIAL BLOOD SPECIMENOrdering Facility: [facility] Address: [address] [place] [address] Performed By: #### A LLBG ####[facility] LABORATORYCLIA [id number] [address] Calcium.ionized adjusted to pH 7.4 (BldA) [Moles/Vol] 1.15 mmol/L Normal 1.08-1.30 [facility] Comment on above: Order Comment: Speci men Type: ARTERIAL BLOOD SPECIMENOrdering Facility: [facility] Address: [address] [place] [address] Performed By: #### A LLBG ####[facility] LABORATORYCLIA [id number] [address] [place] Carboxyhemoglobin (BldA) [Mass fraction] 1.5 % Normal 0.0-2.0 [facility] Comment on above: Order Comment: Speci men Type: ARTERIAL BLOOD SPECIMENOrdering Facility: [facility] Address: [address] [place] [address] Result Comment: Carb oxyhemoglobin Reference Range for Smokers: 2.0-8.0% Performed By: #### A LLBG ####[facility]ATORYCLIA [id number] [place] [address] [place] Chloride [Moles/Vol] 109 mmol/L Normal 102-109 [facility] Comment on above: Order Comment: Speci men Type: ARTERIAL BLOOD SPECIMENOrdering Facility: [facility] Address: [address] [place] [address] Performed By: #### A LLBG ####[facility]ORATORYCLIA [id number] [address] [place] CO2 (Bld) [Partial pressure] 43 mm Hg Normal 36-46 [facility] Comment on above: Order Comment: Speci men Type: ARTERIAL BLOOD SPECIMENOrdering Facility: [facility] Address: [address] [place] [address] Performed By: #### A LLBG ####[facility] LABORATORYCLIA [id number] [address] CO2 adjusted to patient's actual temperature (Bld) [Partial pressure] 42 mmHg Normal 36-46 [facility] Comment on above: Order Comment: Speci men Type: ARTERIAL BLOOD SPECIMENOrdering Facility: [facility] Address: [address] [place] [address] Performed By: #### A LLBG ####[facility] LABORATORYCLIA [id number] [address] [place] Glucose [Mass/Vol] 177 mg/dL High 60-105 [facility] Comment on above: Order Comment: Speci men Type: ARTERIAL BLOOD SPECIMENOrdering Facility: [facility] Address: [address] [place] [address] Performed By: #### A LLBG ####[facility]ATORYCLIA [id number] [address] [place] HCO3 (Bld) [Moles/Vol] 23 mmol/L Normal 22-26 [facility] Comment on above: Order Comment: Speci men Type: ARTERIAL BLOOD SPECIMENOrdering Facility: [facility] Address: [address] [place] [address] Performed By: #### A LLBG ####[facility] LABORATORYCLIA [id number] [address] OF [facility] Hematocrit (Bld) [Volume fraction] 43.0 % Normal 36.0-46.0 [facility] Comment on above: Order Comment: Speci men Type: ARTERIAL BLOOD SPECIMENOrdering Facility: [facility] Address: [address] [place] [address] Performed By: #### A LLBG ####[facility] LABORATORYCLIA [id number] [address] [place] Hemoglobin (Bld) [Mass/Vol] 14.0 g/dL Normal 11.5-15.5 [facility] Comment on above: Order Comment: Speci men Type: ARTERIAL BLOOD SPECIMENOrdering Facility: [facility] Address: [address] [place] [address] Performed By: #### A LLBG ####[facility] LABORATORYCLIA [id number] [address] Lactate [Moles/Vol] 2.1 mmol/L Normal 0.5-2.2 [facility] Comment on above: Order Comment: Speci men Type: ARTERIAL BLOOD SPECIMENOrdering Facility: [facility] Address: [address] [place] [address] Performed By: #### A LLBG ####[facility] LABORATORYCLIA [id number] [address] [place] LITERS 10 Liters/min Normal [facility] Comment on above: Order Comment: Speci men Type: ARTERIAL BLOOD SPECIMENOrdering Facility: [facility] Address: [address] [place] [address] Performed By: #### A LLBG ####[facility] LABORATORYCLIA [id number] [address] [place] Methemoglobin (Bld) [Mass fraction] 0.3 % Normal 0.0-1.5 [facility] Comment on above: Order Comment: Speci men Type: ARTERIAL BLOOD SPECIMENOrdering Facility: [facility] Address: [address] [place] [address] Performed By: #### A LLBG ####[facility]ATORYCLIA [id number] [address] O2 THERAPY Simple Face Mask Normal [facility] Comment on above: Order Comment: Speci men Type: ARTERIAL BLOOD SPECIMENOrdering Facility: [facility] Address: [address] [place] [address] Performed By: #### A LLBG ####[facility]ORYCLIA [id number] [address] Oxygen (Bld) [Partial pressure] 55 mm Hg Low 85-95 [facility] Comment on above: Order Comment: Speci men Type: ARTERIAL BLOOD SPECIMENOrdering Facility: [facility] Address: [address] [place] [address] Performed By: #### A LLBG ####[facility] LABORATORYCLIA [id number] [address] Oxygen adjusted to patient's actual temperature (Bld) [Partial pressure] 53 mmHg Low 85-95 [facility] Comment on above: Order Comment: Speci men Type: ARTERIAL BLOOD SPECIMENOrdering Facility: [facility] Address: [address] [place] [address] Performed By: #### A LLBG ####[facility]ORATORYCLIA [id number] [address] Oxyhemoglobin (BldA) [Mass fraction] 85 % Low 95-98 [facility] Comment on above: Order Comment: Speci men Type: ARTERIAL BLOOD SPECIMENOrdering Facility: [facility] Address: [address] [place] [address] Performed By: #### A LLBG ####[facility] LABORATORYCLIA [id number] [address] [place] pH (Bld) 7.35 [pH] Normal 7.35-7.45 [facility] Comment on above: Order Comment: Speci men Type: ARTERIAL BLOOD SPECIMENOrdering Facility: [facility] Address: [address] [place] [address] Performed By: #### A LLBG ####[facility] LABORATORYCLIA [id number] [address] pH adjusted to patient's actual temperature (Bld) 7.35 Normal 7.35-7.45 [facility] Comment on above: Order Comment: Speci men Type: ARTERIAL BLOOD SPECIMENOrdering Facility: [facility] Address: [address] [place] [address] Performed By: #### A LLBG ####[facility] LABORATORYCLIA [id number] [address] [place] Potassium [Moles/Vol] 3.7 mmol/L Normal 3.5-5.0 [facility] Comment on above: Order Comment: Speci men Type: ARTERIAL BLOOD SPECIMENOrdering Facility: [facility] Address: [address] [place] [address] Performed By: #### A LLBG ####[facility] LABORATORYCLIA [id number] [address] [place] Sodium [Moles/Vol] 137 mmol/L Normal 136-144 [facility] Comment on above: Order Comment: Speci men Type: ARTERIAL BLOOD SPECIMENOrdering Facility: [facility] Address: [address] [place] [address] Performed By: #### A LLBG ####[facility] LABORATORYCLIA [id number] [address] [place] BRIEF OP NOTon 02-04-2024 BRIEF OP NOT Normal [facility] Basic metabolic 2000 panelon 02-04-2024 Anion gap [Moles/Vol] 13 mmol/L Normal 9-18 [facility] Comment on above: Order Comment: Speci men Type: BLOOD SPECIMENOrdering Facility: [facility] Address: [address] [place] [address] Performed By: #### 2 4321-2, 52199-0, 2777-1 ####[facility]ATORYCLIA [id number] [place] [address] [place] Calcium [Mass/Vol] 8.7 mg/dL Normal 8.5-10.2 [facility] Comment on above: Order Comment: Speci men Type: BLOOD SPECIMENOrdering Facility: [facility] Address: [address] [place] [address] Performed By: #### 2 4321-2, , 2776-10 ####[facility] LABORATORYCLIA [id number] [place] [address] [place] Chloride [Moles/Vol] 103 mmol/L Normal 97-105 [facility] Comment on above: Order Comment: Speci men Type: BLOOD SPECIMENOrdering Facility: [facility] Address: [address] [place] [address] Performed By: #### 2 4321-2, , 2776-10 ####[facility]ORATORYCLIA [id number] [place] [address] [place] CO2 [Moles/Vol] 21 mmol/L Low 22-30 [facility] Comment on above: Order Comment: Speci men Type: BLOOD SPECIMENOrdering Facility: [facility] Address: [address] [place] [address] Performed By: #### 2 4321-2, , 2776-10 ####[facility] LABORATORYCLIA [id number] [place] [address] [place] Creatinine [Mass/Vol] 0.69 mg/dL Normal 0.58-0.96 [facility] Comment on above: Order Comment: Speci men Type: BLOOD SPECIMENOrdering Facility: [facility] Address: [address] [place] [address] Performed By: #### 2 4321-2, , 2776-10 ####[facility] LABORATORYCLIA [id number] [address] [place] Creatinine and Glomerular filtration rate.predicted panel (S/P/Bld) 87 mL/min/1.73m??? Normal >=60 [facility] Comment on above: Order Comment: Kristin paige Type: BLOOD SPECIMENOrdering Facility: [facility] Address: [address] [place] [address] Result Comment: Felicia mated Glomerular Filtration Rate [...] actual GFR. Performed By: #### 2 4321-2, 03398-3, 2776-10 ####[facility] LABORATORYCLIA [id number] [place] [address] [place] Glucose [Mass/Vol] 166 mg/dL High 74-99 [facility] Comment on above: Order Comment: Kristin paige Type: BLOOD SPECIMENOrdering Facility: [facility] Address: [address] [place] [address] Result Comment: The [place] [employer] Association (ADA) provides guidance for cutoff [...] Standards of Medical Care in Diabetes 2016, [place] [employer]. Diabetes Care. 2016.39(Suppl 1). Performed By: #### 2 4321-2, 00744-5, 2776-10 ####[facility] LABORATORYCLIA [id number] [place] [id number] [place] Potassium [Moles/Vol] 3.8 mmol/L Normal 3.7-5.1 [facility] Comment on above: Order Comment: Kristin paige Type: BLOOD SPECIMENOrdering Facility: [facility] Address: [address] [place] [address] Performed By: #### 2 4321-2, , 2776-10 ####[facility]ORATORYCLIA [id number] [place] [address] [place] Sodium [Moles/Vol] 137 mmol/L Normal 136-144 [facility] Comment on above: Order Comment: Speci men Type: BLOOD SPECIMENOrdering Facility: [facility] Address: [address] [place] [address] Performed By: #### 2 4321-2, , 2776-10 ####[facility] LABORATORYCLIA [id number] [place] [address] [place] Urea nitrogen [Mass/Vol] 15 mg/dL Normal 7-21 [facility] Comment on above: Order Comment: Speci men Type: BLOOD SPECIMENOrdering Facility: [facility] Address: [address] [place] [address] Performed By: #### 2 4321-2, , 2776-10 ####[facility]ORATORYCLIA [id number] [place] [address] [place] Anion gap [Moles/Vol] 10 mmol/L Normal 9-18 [facility] Comment on above: Order Comment: Speci men Type: BLOOD SPECIMENOrdering Facility: [facility] Address: [address] [place] [address] Performed By: #### 2 4320-2 ####[facility]ATORYCLIA [id number] [place] [address] [place] Calcium [Mass/Vol] 9.4 mg/dL Normal 8.5-10.2 [facility] Comment on above: Order Comment: Speci men Type: BLOOD SPECIMENOrdering Facility: [facility] Address: [address] [place] [address] Performed By: #### 2 4321-2 ####[facility]ATORYCLIA [id number] [place] [address] [place] Chloride [Moles/Vol] 100 mmol/L Normal 97-105 [facility] Comment on above: Order Comment: Speci men Type: BLOOD SPECIMENOrdering Facility: [facility] Address: [address] [place] [address] Performed By: #### 2 4321-2 ####[facility] LABORATORYCLIA [id number] [place] [id number] [place] CO2 [Moles/Vol] 25 mmol/L Normal 22-30 [facility] Comment on above: Order Comment: Speci men Type: BLOOD SPECIMENOrdering Facility: [facility] Address: [address] [place] [address] Performed By: #### 2 4321-2 ####[facility]CL[facility] [id number] [address] [place] Creatinine [Mass/Vol] 0.74 mg/dL Normal 0.58-0.96 [facility] Comment on above: Order Comment: Speci men Type: BLOOD SPECIMENOrdering Facility: [facility] Address: [address] [place] [address] Performed By: #### 2 4321-2 ####[facility]ITALCLIA [id number] [address] Creatinine and Glomerular filtration rate.predicted panel (S/P/Bld) 81 mL/min/1.73m??? Normal >=60 [facility] Comment on above: Order Comment: Speci men Type: BLOOD SPECIMENOrdering Facility: [facility] Address: [address] [place] [address] Result Comment: Felicia mated Glomerular Filtration Rate [...] actual GFR. Performed By: #### 2 4321-2 ####[facility]ORATORYCLIA [id number] [address] [place] Glucose [Mass/Vol] 148 mg/dL High 74-99 [facility] Comment on above: Order Comment: Kristin royla Type: BLOOD SPECIMENOrdering Facility: [facility] Address: [address] [place] [address] Result Comment: The [place] Diabetes Association (ADA) provides guidance for cutoff [...] Standards of Medical Care in Diabetes 2016, [place] [employer]. Diabetes Care. 2016.39(Suppl 1). Performed By: #### 2 4321-2 ####[facility]ORATORYCLIA [id number] [place] [address] [place] Potassium [Moles/Vol] 3.9 mmol/L Normal 3.7-5.1 [facility] Comment on above: Order Comment: Kristin royal Type: BLOOD SPECIMENOrdering Facility: [facility] Address: [address] [place] [address] Performed By: #### 2 4321-2 ####[facility]ORATORYCLIA [id number] [place] [address] [place] Sodium [Moles/Vol] 135 mmol/L Low 136-144 [facility] Comment on above: Order Comment: Lului men Type: BLOOD SPECIMENOrdering Facility: [facility] Address: [address] [place] [address] Performed By: #### 2 4321-2 ####[facility] LABORATORYCLIA [id number] [place] [address] [place] Urea nitrogen [Mass/Vol] 16 mg/dL Normal 7-21 [facility] Comment on above: Order Comment: Lului men Type: BLOOD SPECIMENOrdering Facility: [facility] Address: [address] [place] [address] Performed By: #### 2 4321-2 ####[facility]ORATORYCLIA [id number] [address] CBC Pnl Bld Autoon Hemoglobin (Bld) [Mass/Vol] 11.0 g/dL Low 11.5-15.5 [facility] Comment on above: Order Comment: Speci men Type: BLOOD SPECIMENOrdering Facility: [facility] Address: [address] [place] [address] Performed By: #### 5 8410-2 ####[facility]ORATORYCLIA [id number] [address] Order Comment: Speci men Type: ARTERIAL BLOOD SPECIMENOrdering Facility: [facility] Address: [address] [place] [address] Performed By: #### A LLBG ####[facility]ORATORYCLIA [id number] [address] CBC W Auto Differential pane l (Bld)on 02-04-2024 Basophils (Bld) [#/Vol] 0.04 10*3/uL Normal <0.11 [facility] Comment on above: Order Comment: Speci men Type: BLOOD SPECIMENOrdering Facility: [facility] Address: [address] [place] [address] Performed By: #### 5 7021-8 ####[facility]ORATORYCLIA [id number] [address] Basophils/100 WBC (Bld) 0.3 % Normal [facility] Comment on above: Order Comment: Speci men Type: BLOOD SPECIMENOrdering Facility: [facility] Address: [address] [place] [address] Performed By: #### 5 7021-8 ####[facility]ORATORYCLIA [id number] [address] Differential cell count method Nom (Bld) Auto Normal [facility] Comment on above: Order Comment: Speci men Type: BLOOD SPECIMENOrdering Facility: [facility] Address: [address] [place] [address] Performed By: #### 5 7021-8 ####[facility] LABORATORYCLIA [id number] [address] [place] Eosinophils (Bld) [#/Vol] 0.25 10*3/uL Normal <0.46 [facility] Comment on above: Order Comment: Speci men Type: BLOOD SPECIMENOrdering Facility: [facility] Address: [address] [place] [address] Performed By: #### 5 7021-8 ####[facility]ORATORYCLIA [id number] [address] Eosinophils/100 WBC (Bld) 1.9 % Normal [facility] Comment on above: Order Comment: Speci men Type: BLOOD SPECIMENOrdering Facility: [facility] Address: [address] [place] [address] Performed By: #### 5 7021-8 ####[facility] LABORATORYCLIA [id number] [address] [place] Erythrocyte distribution width (RBC) [Ratio] 13.6 % Normal 11.5-15.0 [facility] Comment on above: Order Comment: Speci men Type: BLOOD SPECIMENOrdering Facility: [facility] Address: [address] [place] [address] Performed By: #### 5 7021-8 ####[facility]ATORYCLIA [id number] [address] [place] Hematocrit (Bld) [Volume fraction] 40.0 % Normal 36.0-46.0 [facility] Comment on above: Order Comment: Speci men Type: BLOOD SPECIMENOrdering Facility: [facility] Address: [facility] [place] [address] Performed By: #### 5 7021-8 ####[facility]ATORYCLIA [id number] [address] [place] Hemoglobin (Bld) [Mass/Vol] 13.3 g/dL Normal 11.5-15.5 [facility] Comment on above: Order Comment: Speci men Type: BLOOD SPECIMENOrdering Facility: [facility] Address: [address] [place] [address] Performed By: #### 5 7021-8 ####[facility]ORATORYCLIA [id number] [place] [address] [place] Immature granulocytes (Bld) [#/Vol] 0.05 10*3/uL Normal <0.10 [facility] Comment on above: Order Comment: Speci men Type: BLOOD SPECIMENOrdering Facility: [facility] Address: [address] [place] [address] Performed By: #### 5 7021-8 ####[facility]ORYCLIA [id number] [address] [place] Immature granulocytes/100 WBC (Bld) 0.4 % Normal [facility] Comment on above: Order Comment: Speci men Type: BLOOD SPECIMENOrdering Facility: [facility] Address: [address] [place] [address] Performed By: #### 5 7021-8 ####[facility]ORYCLIA [id number] [place] [address] [place] Lymphocytes (Bld) [#/Vol] 1.57 10*3/uL Normal 1.00-4.00 [facility] Comment on above: Order Comment: Speci men Type: BLOOD SPECIMENOrdering Facility: [facility] Address: [address] [place] [address] Performed By: #### 5 7021-8 ####[facility]ATORYCLIA [id number] [address] [place] Lymphocytes/100 WBC (Bld) 11.7 % Normal [facility] Comment on above: Order Comment: Speci men Type: BLOOD SPECIMENOrdering Facility: [facility] Address: [address] [place] [address] Performed By: #### 5 7021-8 ####[facility]ATORYCLIA [id number] [address] MCH (RBC) [Entitic mass] 32.0 pg Normal 26.0-34.0 [facility] Comment on above: Order Comment: Speci men Type: BLOOD SPECIMENOrdering Facility: [facility] Address: [address] [place] [address] Performed By: #### 5 7021-8 ####[facility] LABORATORYCLIA [id number] [address] STATES OF [facility] MCHC (RBC) [Mass/Vol] 33.3 g/dL Normal 30.5-36.0 [facility] Comment on above: Order Comment: Speci men Type: BLOOD SPECIMENOrdering Facility: [facility] Address: [address] [place] [address] Performed By: #### 5 7021-8 ####[facility] LABORATORYCLIA [id number] [address] MCV (RBC) [Entitic vol] 96.4 fL Normal 80.0-100.0 [facility] Comment on above: Order Comment: Speci men Type: BLOOD SPECIMENOrdering Facility: [facility] Address: [address] [place] [address] Performed By: #### 5 7021-8 ####[facility] LABORATORYCLIA [id number] [address] OF [facility] Monocytes (Bld) [#/Vol] 0.84 10*3/uL Normal <0.87 [facility] Comment on above: Order Comment: Speci men Type: BLOOD SPECIMENOrdering Facility: [facility] Address: [address] [place] [address] Performed By: #### 5 7021-8 ####[facility] LABORATORYCLIA [id number] [address] Monocytes/100 WBC (Bld) 6.3 % Normal [facility] Comment on above: Order Comment: Speci men Type: BLOOD SPECIMENOrdering Facility: [facility] Address: [address] [place], [place] [address] Performed By: #### 5 7021-8 ####[facility] LABORATORYCLIA [id number] [place] [address] [place] Neutrophils (Bld) [#/Vol] 10.64 10*3/uL High 1.45-7.50 [facility] Comment on above: Order Comment: Speci men Type: BLOOD SPECIMENOrdering Facility: [facility] Address: [address] [place] [address] Performed By: #### 5 7021-8 ####[facility]ORATORYCLIA [id number] [address] [place] Neutrophils/100 WBC (Bld) 79.4 % Normal [facility] Comment on above: Order Comment: Speci men Type: BLOOD SPECIMENOrdering Facility: [facility] Address: [address] [place] [address] Performed By: #### 5 7021-8 ####[facility]ORATORYCLIA [id number] [address] [place] Nucleated RBC (Bld) [#/Vol] 10*3/uL Normal <0.01 [facility] Comment on above: Order Comment: Speci men Type: BLOOD SPECIMENOrdering Facility: [facility] Address: [address] [place] [address] Performed By: #### 5 7021-8 ####[facility] LABORATORYCLIA [id number] [address] [place] Nucleated RBC/100 WBC (Bld) [Ratio] 0.0 /100 WBC Normal [facility] Comment on above: Order Comment: Speci men Type: BLOOD SPECIMENOrdering Facility: [facility] Address: [address] [place] [address] Performed By: #### 5 7021-8 ####[facility]ATORYCLIA [id number] [address] [place] Platelet mean volume (Bld) [Entitic vol] 8.8 fL Low 9.0-12.7 [facility] Comment on above: Order Comment: Speci men Type: BLOOD SPECIMENOrdering Facility: [facility] Address: [address] [place] [address] Performed By: #### 5 7021-8 ####[facility] LABORATORYCLIA [id number] [address] OF [facility] Platelets (Bld) [#/Vol] 317 10*3/uL Normal 150-400 [facility] Comment on above: Order Comment: Speci men Type: BLOOD SPECIMENOrdering Facility: [facility] Address: [address] [place] [address] Performed By: #### 5 7021-8 ####[facility] LABORATORYCLIA [id number] [address] OF [facility] RBC (Bld) [#/Vol] 4.15 10*6/uL Normal 3.90-5.20 [facility] Comment on above: Order Comment: Speci men Type: BLOOD SPECIMENOrdering Facility: [facility] Address: [address] [place] [address] Performed By: #### 5 7021-8 ####[facility] LABORATORYCLIA [id number] [address] WBC (Bld) [#/Vol] 13.39 10*3/uL High 3.70-11.00 [facility] Comment on above: Order Comment: Speci men Type: BLOOD SPECIMENOrdering Facility: [facility] Address: [address] [place] [address] Performed By: #### 5 7021-8 ####[facility] LABORATORYCLIA [id number] [address] CBC panel Auto (Bld)on 02-03 Erythrocyte distribution width (RBC) [Ratio] 13.7 % Normal 11.5-15.0 [facility] Comment on above: Order Comment: Speci men Type: BLOOD SPECIMENOrdering Facility: [facility] Address: [address] [place] [address] Performed By: #### 5 8410-2 ####[facility] LABORATORYCLIA [id number] [address] Hematocrit (Bld) [Volume fraction] 33.5 % Low 36.0-46.0 [facility] Comment on above: Order Comment: Speci men Type: BLOOD SPECIMENOrdering Facility: [facility] Address: [address] [place] [address] Performed By: #### 5 8410-2 ####[facility] LABORATORYCLIA [id number] [address] MCH (RBC) [Entitic mass] 31.8 pg Normal 26.0-34.0 [facility] Comment on above: Order Comment: Speci men Type: BLOOD SPECIMENOrdering Facility: [facility] Address: [address] [place] [address] Performed By: #### 5 8410-2 ####[facility] LABORATORYCLIA [id number] [address] MCHC (RBC) [Mass/Vol] 32.8 g/dL Normal 30.5-36.0 [facility] Comment on above: Order Comment: Speci men Type: BLOOD SPECIMENOrdering Facility: [facility] Address: [address] [place] [address] Performed By: #### 5 8410-2 ####[facility] LABORATORYCLIA [id number] [address] MCV (RBC) [Entitic vol] 96.8 fL Normal 80.0-100.0 [facility] Comment on above: Order Comment: Speci men Type: BLOOD SPECIMENOrdering Facility: [facility] Address: [address] [place] [address] Performed By: #### 5 8410-2 ####[facility] LABORATORYCLIA [id number] [address] Nucleated RBC (Bld) [#/Vol] 10*3/uL Normal <0.01 [facility] Comment on above: Order Comment: Speci men Type: BLOOD SPECIMENOrdering Facility: [facility] Address: [address] [place] [address] Performed By: #### 5 8410-2 ####[facility] LABORATORYCLIA [id number] [address] [place] Platelet mean volume (Bld) [Entitic vol] 8.6 fL Low 9.0-12.7 [facility] Comment on above: Order Comment: Speci men Type: BLOOD SPECIMENOrdering Facility: [facility] Address: [address] [place] [address] Performed By: #### 5 8410-2 ####[facility] LABORATORYCLIA [id number] [address] OF [facility] Platelets (Bld) [#/Vol] 243 10*3/uL Normal 150-400 [facility] Comment on above: Order Comment: Speci men Type: BLOOD SPECIMENOrdering Facility: [facility] Address: [address] [place] [address] Performed By: #### 5 8410-2 ####[facility] LABORATORYCLIA [id number] [address] RBC (Bld) [#/Vol] 3.46 10*6/uL Low 3.90-5.20 [facility] Comment on above: Order Comment: Speci men Type: BLOOD SPECIMENOrdering Facility: [facility] Address: [address] [place] [address] Performed By: #### 5 8410-2 ####[facility] LABORATORYCLIA [id number] [address] WBC (Bld) [#/Vol] 12.08 10*3/uL High 3.70-11.00 [facility] Comment on above: Order Comment: Speci men Type: BLOOD SPECIMENOrdering Facility: [facility] Address: [address] [place] [address] Performed By: #### 5 8410-2 ####[facility] LABORATORYCLIA [id number] [place] [address] [place] Erythrocyte distribution width (RBC) [Ratio] 13.5 % Normal 11.5-15.0 [facility] Comment on above: Order Comment: Speci men Type: BLOOD SPECIMENOrdering Facility: [facility] Address: [address] [place] [address] Performed By: #### 5 8410-2 ####[facility] LABORATORYCLIA [id number] [address] [facility] Hematocrit (Bld) [Volume fraction] 37.5 % Normal 36.0-46.0 [facility] Comment on above: Order Comment: Speci men Type: BLOOD SPECIMENOrdering Facility: [facility] Address: [address] [place] [address] Performed By: #### 5 8410-2 ####[facility] LABORATORYCLIA [id number] [address] [place] Hemoglobin (Bld) [Mass/Vol] 12.4 g/dL Normal 11.5-15.5 [facility] Comment on above: Order Comment: Speci men Type: BLOOD SPECIMENOrdering Facility: [facility] Address: [address] [place] [address] Performed By: #### 5 8410-2 ####[facility] LABORATORYCLIA [id number] [address] [place] MCH (RBC) [Entitic mass] 31.9 pg Normal 26.0-34.0 [facility] Comment on above: Order Comment: Speci men Type: BLOOD SPECIMENOrdering Facility: [facility] Address: [address] [place] [address] Performed By: #### 5 8410-2 ####[facility] LABORATORYCLIA [id number] [address] [place] MCHC (RBC) [Mass/Vol] 33.1 g/dL Normal 30.5-36.0 [facility] Comment on above: Order Comment: Speci men Type: BLOOD SPECIMENOrdering Facility: [facility] Address: [address] [place] [address] Performed By: #### 5 8410-2 ####[facility] LABORATORYCLIA [id number] [address] [place] MCV (RBC) [Entitic vol] 96.4 fL Normal 80.0-100.0 [facility] Comment on above: Order Comment: Speci men Type: BLOOD SPECIMENOrdering Facility: [facility] Address: [address] [place] [address] Performed By: #### 5 8410-2 ####[facility] LABORATORYCLIA [id number] [address] [place] Nucleated RBC (Bld) [#/Vol] 10*3/uL Normal <0.01 [facility] Comment on above: Order Comment: Speci men Type: BLOOD SPECIMENOrdering Facility: [facility] Address: [address] [place] [address] Performed By: #### 5 8410-2 ####[facility] LABORATORYCLIA [id number] [address] [facility] Platelet mean volume (Bld) [Entitic vol] 8.7 fL Low 9.0-12.7 [facility] Comment on above: Order Comment: Speci men Type: BLOOD SPECIMENOrdering Facility: [facility] Address: [address] [place] [address] Performed By: #### 5 8410-2 ####[facility] LABORATORYCLIA [id number] [address] Platelets (Bld) [#/Vol] 279 10*3/uL Normal 150-400 [facility] Comment on above: Order Comment: Speci men Type: BLOOD SPECIMENOrdering Facility: [facility] Address: [address] [place] [address] Performed By: #### 5 8410-2 ####[facility] LABORATORYCLIA [id number] [address] [place] RBC (Bld) [#/Vol] 3.89 10*6/uL Low 3.90-5.20 [facility] Comment on above: Order Comment: Speci men Type: BLOOD SPECIMENOrdering Facility: [facility] Address: [address] [place] [address] Performed By: #### 5 8410-2 ####[facility] LABORATORYCLIA [id number] [address] [place] WBC (Bld) [#/Vol] 15.65 10*3/uL High 3.70-11.00 [facility] Comment on above: Order Comment: Speci men Type: BLOOD SPECIMENOrdering Facility: [facility] Address: [address] [place] [address] Performed By: #### 5 8410-2 ####[facility] LABORATORYCLIA [id number] [place] [id number] [place] CONSULTon 02-04-2024 CONSULT Normal [facility] ECG COMPLETEon 02-04-2024 ECG COMPLETE Normal [facility] Magnesium SerPl-mCncon 02-03 Magnesium [Mass/Vol] 1.9 mg/dL Normal 1.7-2.3 [facility] Comment on above: Order Comment: Speci men Type: BLOOD SPECIMENOrdering Facility: [facility] Address: [address] [place] [address] Performed By: #### 2 4321-2, , 2776-10 ####[facility] LABORATORYCLIA [id number] [address] [place] NURSING PROGon 02-04-2024 NURSING PROG Normal [facility] NURSING PROG Normal [facility] OPERATIVE NOon 02-04-2024 OPERATIVE NO Normal [facility] Phosphate SerPl-mCncon 02-03 Phosphate [Mass/Vol] 3.5 mg/dL Normal 2.7-4.8 [facility] Comment on above: Order Comment: Speci men Type: BLOOD SPECIMENOrdering Facility: [facility] Address: [address] [place] [address] Performed By: #### 2 4321-2, , 2776-10 ####[facility]ORATORYCLIA [id number] [address] STAPHYLOCOCCUS AUREUS AND MR SA SCREEN, PCR, NASALon 02-04-2024 S. aureus and MRSA panel HAYDEN+probe (Nose) Normal Negative [facility] Comment on above: Order Comment: Speci men Type: SWABOrdering Facility: [facility] Address: [address] [place] [address] Result Comment: Nega tive for Staphylococcus aureus by PCR.Negative for MRSA by PCR Performed By: #### S APCR ####[facility] LABORATORYCLIA [id number] [address] SURGICAL PATHOLOGYon 024 CASE REPORT Normal [facility] Comment on above: Order Comment: Speci men Type: TISSUE SPECIMENOrdering Facility: [facility] Address: [address] [place] [address] Result Comment: Surg ica Pathology Report Case: [id number] Provider: Mayank Hanson, Collected: 02/04/2024 09:04 AM MDOrdering Location: [facility] Received: 02/05/2024 08:17 AMPathologist: Acacia Avery MDSpecimen: Femoral Head, Left Performed By: #### S ####[facility]ITALCLIA [id number] [address] CLINICAL HISTORY Normal [facility] Comment on above: Order Comment: Speci men Type: TISSUE SPECIMENOrdering Facility: [facility] Address: [address] [place] [address] Result Comment: Pre- op diagnosis:Closed displaced fracture of left femoral neck (HCC) [S72.002A] Performed By: #### S ####[facility] LABORATORYCLIA [id number] [address] FINAL DIAGNOSIS Normal [facility] Comment on above: Order Comment: Speci men Type: TISSUE SPECIMENOrdering Facility: [facility] Address: [address] [place] [address] Result Comment: Femo ral head, left, left internal fixation/prosthetic replacement:- Fragmentation of the bony trabeculae with hemorrhage into the medullary cavity, consistent with recent fracture.- No malignancy is seen.- Degenerative changes of the articular cartilage. Performed By: #### S ####[facility] LABORATORYCLIA [id number] [address] OF [facility] FINAL PERFORMING LAB Normal [facility] Comment on above: Order Comment: Speci men Type: TISSUE SPECIMENOrdering Facility: [facility] Address: [address] [place] [address] Result Comment: Diag nostic interpretation performed at [facility], [address] [place] [address] CLIA# [id number] Director: Kade Duron M.D. Performed By: #### S ####[facility] LABORATORYCLIA [id number] [address] GROSS DESCRIPTION Normal [facility] Comment on above: Order Comment: Speci men Type: TISSUE SPECIMENOrdering Facility: [facility] Address: [address] [place] [address] Result Comment: A. F emoral Head, LeftReceived [...] tissue is not received with the specimen. Cardiac Cath Lab Radiology Technologist sections are submitted in formalin in 2 cassettes following a period of decalcification. Gross examination performed at [facility], [address] [place], [place] [address]KVB February 05, 2024 10:24 AM Performed By: #### S ####[facility] LABORATORYCLIA [id number] [address] [place] XR PELVIS 1V APon 02-04-2024 XR PELVIS 1V AP Normal [facility] CASE MGT INIT ASSESon 2023 CASE MGT INIT ASSES Normal [facility] CBC panel Auto (Bld)on 02-02 Erythrocyte distribution width (RBC) [Ratio] 13.5 % Normal 11.5-15.0 [facility] Comment on above: Order Comment: Speci men Type: BLOOD SPECIMENOrdering Facility: [facility] Address: [address] [place] [address] Performed By: #### 5 8410-2 ####[facility] LABORATORYCLIA [id number] [address] [facility] Hematocrit (Bld) [Volume fraction] 38.4 % Normal 36.0-46.0 [facility] Comment on above: Order Comment: Speci men Type: BLOOD SPECIMENOrdering Facility: [facility] Address: [address] [place] [address] Performed By: #### 5 8410-2 ####[facility] LABORATORYCLIA [id number] [address] [facility] Hemoglobin (Bld) [Mass/Vol] 12.9 g/dL Normal 11.5-15.5 [facility] Comment on above: Order Comment: Speci men Type: BLOOD SPECIMENOrdering Facility: [facility] Address: [address] [place] [address] Performed By: #### 5 8410-2 ####[facility] LABORATORYCLIA [id number] [address] [place] MCH (RBC) [Entitic mass] 32.1 pg Normal 26.0-34.0 [facility] Comment on above: Order Comment: Speci men Type: BLOOD SPECIMENOrdering Facility: [facility] Address: [address] [place] [address] Performed By: #### 5 8410-2 ####[facility] LABORATORYCLIA [id number] [address] [place] MCHC (RBC) [Mass/Vol] 33.6 g/dL Normal 30.5-36.0 [facility] Comment on above: Order Comment: Speci men Type: BLOOD SPECIMENOrdering Facility: [facility] Address: [address] [place] [address] Performed By: #### 5 8410-2 ####[facility] LABORATORYCLIA [id number] [address] MCV (RBC) [Entitic vol] 95.5 fL Normal 80.0-100.0 [facility] Comment on above: Order Comment: Speci men Type: BLOOD SPECIMENOrdering Facility: [facility] Address: [address] [place] [address] Performed By: #### 5 8410-2 ####[facility] LABORATORYCLIA [id number] [address] Nucleated RBC (Bld) [#/Vol] 10*3/uL Normal <0.01 [facility] Comment on above: Order Comment: Speci men Type: BLOOD SPECIMENOrdering Facility: [facility] Address: [address] [place] [address] Performed By: #### 5 8410-2 ####[facility] LABORATORYCLIA [id number] [address] Platelet mean volume (Bld) [Entitic vol] 8.6 fL Low 9.0-12.7 [facility] Comment on above: Order Comment: Speci men Type: BLOOD SPECIMENOrdering Facility: [facility] Address: [address] [place] [address] Performed By: #### 5 8410-2 ####[facility] LABORATORYCLIA [id number] [address] Platelets (Bld) [#/Vol] 336 10*3/uL Normal 150-400 [facility] Comment on above: Order Comment: Speci men Type: BLOOD SPECIMENOrdering Facility: [facility] Address: [address] [place] [address] Performed By: #### 5 8410-2 ####[facility] LABORATORYCLIA [id number] [address] RBC (Bld) [#/Vol] 4.02 10*6/uL Normal 3.90-5.20 [facility] Comment on above: Order Comment: Speci men Type: BLOOD SPECIMENOrdering Facility: [facility] Address: [address] [place] [address] Performed By: #### 5 8410-2 ####[facility] LABORATORYCLIA [id number] [place] [address] [place] WBC (Bld) [#/Vol] 8.70 10*3/uL Normal 3.70-11.00 [facility] Comment on above: Order Comment: Speci men Type: BLOOD SPECIMENOrdering Facility: [facility] Address: [address] [place] [address] Performed By: #### 5 8410-2 ####[facility] LABORATORYCLIA [id number] [address] CONFIRM BLOOD TYPEon 024 ABO O Normal [facility] Comment on above: Order Comment: Speci men Type: BLOOD SPECIMENOrdering Facility: [facility] Address: [address] [place] [address] Performed By: #### C ONABO ####[facility] BLOOD BANKCLIA [id number] [address] [facility] Rh Nom (Bld) Positive Normal [facility] Comment on above: Order Comment: Speci men Type: BLOOD SPECIMENOrdering Facility: [facility] Address: [address] [place] [address] Performed By: #### C ONABO ####[facility] BLOOD BANKCLIA [id number] [address] [place] CONSULTon 02-03-2024 CONSULT Normal [facility] CT BRAIN WO IVCONon 02-03-[address] BRAIN WO IVCON Normal [facility] CT CERVICAL SPINE WO IVCONon 02-03-2024 CT CERVICAL SPINE WO IVCON Normal [facility] Comprehensive metabolic 2000 panelon 02-03-2024 Albumin [Mass/Vol] 4.1 g/dL Normal 3.9-4.9 [facility] Comment on above: Order Comment: Speci men Type: BLOOD SPECIMENOrdering Facility: [facility] Address: [address] [place] [address] Performed By: #### 2 4323-8, 3040-3 ####[facility] LABORATORYCLIA [id number] [address] [facility] ALP [Catalytic activity/Vol] 107 U/L Normal 34-123 [facility] Comment on above: Order Comment: Speci men Type: BLOOD SPECIMENOrdering Facility: [facility] Address: [address] [place] [address] Performed By: #### 2 4323-8, 0-3 ####[facility] LABORATORYCLIA [id number] [address] [place] ALT With P-5'-P [Catalytic activity/Vol] 41 U/L High 7-38 [facility] Comment on above: Order Comment: Speci men Type: BLOOD SPECIMENOrdering Facility: [facility] Address: [address] [place] [address] Performed By: #### 2 4323-8, 0-3 ####[facility] LABORATORYCLIA [id number] [address] STATES OF [facility] Anion gap [Moles/Vol] 12 mmol/L Normal 9-18 [facility] Comment on above: Order Comment: Speci men Type: BLOOD SPECIMENOrdering Facility: [facility] Address: [address] [place] [address] Performed By: #### 2 4323-8, 3040-3 ####[facility] LABORATORYCLIA [id number] [address] [place] AST With P-5'-P [Catalytic activity/Vol] 38 U/L High 13-35 [facility] Comment on above: Order Comment: Speci men Type: BLOOD SPECIMENOrdering Facility: [facility] Address: [address] [place] [address] Performed By: #### 2 4323-8, 0-3 ####[facility]ORATORYCLIA [id number] [place] [address] [place] Bilirubin [Mass/Vol] 0.3 mg/dL Normal 0.2-1.3 [facility] Comment on above: Order Comment: Speci men Type: BLOOD SPECIMENOrdering Facility: [facility] Address: [address] [place] [address] Performed By: #### 2 4323-8, 3039-3 ####[facility] LABORATORYCLIA [id number] [place] [address] [place] Calcium [Mass/Vol] 9.3 mg/dL Normal 8.5-10.2 [facility] Comment on above: Order Comment: Speci men Type: BLOOD SPECIMENOrdering Facility: [facility] Address: [address] [place] [address] Performed By: #### 2 4323-8, 3039-3 ####[facility] LABORATORYCLIA [id number] [place] [address] [place] Chloride [Moles/Vol] 104 mmol/L Normal 97-105 [facility] Comment on above: Order Comment: Speci men Type: BLOOD SPECIMENOrdering Facility: [facility] Address: [address] [place] [address] Performed By: #### 2 4323-8, 0-3 ####[facility] LABORATORYCLIA [id number] [place] [address] [place] CO2 [Moles/Vol] 23 mmol/L Normal 22-30 [facility] Comment on above: Order Comment: Speci men Type: BLOOD SPECIMENOrdering Facility: [facility] Address: [address] [place] [address] Performed By: #### 2 4323-8, 0-3 ####[facility] LABORATORYCLIA [id number] [place] [address] [place] Creatinine [Mass/Vol] 0.66 mg/dL Normal 0.58-0.96 [facility] Comment on above: Order Comment: Kristin paige Type: BLOOD SPECIMENOrdering Facility: [facility] Address: [address] [place] [address] Performed By: #### 2 4323-8, 3040-3 ####[facility] LABORATORYCLIA [id number] [place] [id number] [place] Creatinine and Glomerular filtration rate.predicted panel (S/P/Bld) 88 mL/min/1.73m??? Normal >=60 [facility] Comment on above: Order Comment: Kristin paige Type: BLOOD SPECIMENOrdering Facility: [facility] Address: [address] [place] [address] Result Comment: Felicia mated Glomerular Filtration Rate [...] GFR. Performed By: #### 2 4323-8, 3040-3 ####[facility] LABORATORYCLIA [id number] [place] [id number] [place] Glucose [Mass/Vol] 122 mg/dL High 74-99 [facility] Comment on above: Order Comment: Kristin royal Type: BLOOD SPECIMENOrdering Facility: [facility] Address: [address] [place] [address] Result Comment: The [place] [employer] (ADA) provides guidance for cutoff [...] Standards of Medical Care in Diabetes 2016, [place] [employer]. Diabetes Care. 2016.39(Suppl 1). Performed By: #### 2 4323-8, 3040-3 ####[facility] LABORATORYCLIA [id number] [place] [address] [place] Potassium [Moles/Vol] 3.9 mmol/L Normal 3.7-5.1 [facility] Comment on above: Order Comment: Speci men Type: BLOOD SPECIMENOrdering Facility: [facility] Address: [address] [place] [address] Performed By: #### 2 4323-8, 0-3 ####[facility] LABORATORYCLIA [id number] [place] [address] [place] Protein [Mass/Vol] 7.1 g/dL Normal 6.3-8.0 [facility] Comment on above: Order Comment: Speci men Type: BLOOD SPECIMENOrdering Facility: [facility] Address: [address] [place] [address] Performed By: #### 2 4323-8, 0-3 ####[facility] LABORATORYCLIA [id number] [place] [address] [place] Sodium [Moles/Vol] 139 mmol/L Normal 136-144 [facility] Comment on above: Order Comment: Speci men Type: BLOOD SPECIMENOrdering Facility: [facility] Address: [address] [place] [address] Performed By: #### 2 4323-8, 0-3 ####[facility] LABORATORYCLIA [id number] [place] [address] [place] Urea nitrogen [Mass/Vol] 14 mg/dL Normal 7-21 [facility] Comment on above: Order Comment: Speci men Type: BLOOD SPECIMENOrdering Facility: [facility] Address: [address] [place] [address] Performed By: #### 2 4323-8, 0-3 ####[facility] LABORATORYCLIA [id number] [place] [address] [place] ECG COMPLETEon 02-03-2024 ECG COMPLETE Normal [facility] ED NOTEon 02-03-2024 ED NOTE HNO ID: [id number] Author: MARTA DICKENS, RN Service: Emergency Medicine Author Type: Registered Nurse Type: ED Notes Filed: 02/03/2024 13:34 Note Text: Lunch tray to pt Normal [facility] ED NOTE HNO ID: [id number] Author: MARTA DICKENS, JADA Service: Emergency Medicine Author Type: Registered Nurse Type: ED Notes Filed: 02/03/2024 12:27 Note Text: [email or web address] ED NOTE HNO ID: [id number] Author: MARTA DICKENS, JADA Service: Emergency Medicine Author Type: Registered Nurse Type: ED Notes Filed: 02/03/2024 11:20 Note Text: [email or web address] [facility] ED NOTE HNO ID: [id number] Author: LUCY COLÓN RN Service: ? Author Type: Registered Nurse Type: ED Notes Filed: 02/03/2024 09:57 Note Text: Bed: 12-ED Expected date: Expected time: Means of arrival: Comments: [facility] ED PROV NOTEon 02-03-2024 ED PROV NOTE Normal [facility] ED PROV NOTE Normal [facility] Ethanol SerPl-mCncon 024 Ethanol [Mass/Vol] mg/dL Normal <11 [facility] Comment on above: Order Comment: Speci men Type: BLOOD SPECIMENOrdering Facility: [facility] Address: [address] [place] [address] Performed By: #### 5 643-2 ####[facility] LABORATORYCLIA [id number] [place] [address] [place] HISTORY PHYSICALon 4 HISTORY PHYSICAL Normal [facility] Lipase SerPl-cCncon 02-03-20 24 Lipase [Catalytic activity/Vol] 24 U/L Normal 16-61 [facility] Comment on above: Order Comment: Speci men Type: BLOOD SPECIMENOrdering Facility: [facility] Address: [address] [place] [address] Performed By: #### 2 4323-8, 3040-3 ####[facility] LABORATORYCLIA [id number] [place] [id number] [facility] PT panel Coag (PPP)on 2023 INR Coag (PPP) [Relative time] 1.0 {INR} Normal 0.9-1.3 [facility] Comment on above: Order Comment: Specedda paige Type: BLOOD SPECIMENOrdering Facility: [facility] Address: [address] [place] [address] Result Comment: Nicolette min K Antagonist (VKA) Therapeutic Range: INR 2 to 3 (Target INR of 2.5)Note: For patients treated with VKA drugs, such as warfarin, the [place] [employer] 2012 Guideline recommends [...] of 3).Jimy GH, et al. Chest 2012, 141:7S-47SNishdora RA, et al. [facility] 2017, 70: 252-289 Performed By: #### 1 4979-9, 13025-0 ####[facility] LABORATORYCLIA [id number] [place] [id number] [place] PT Coag (PPP) [Time] 10.3 s Normal 9.7-13.0 [facility] Comment on above: Order Comment: Kristin paige Type: BLOOD SPECIMENOrdering Facility: [facility] Address: [address] [place] [address] Performed By: #### 1 4979-9, 32284-7 ####[facility] LABORATORYCLIA [id number] [place] [id number] [place] TYPE + SCREENon 02-03-2024 ABO O Normal [facility] Comment on above: Order Comment: Speci men Type: BLOOD SPECIMENOrdering Facility: [facility] Address: [address] [place] [address] Performed By: #### T SCR ####[facility] BLOOD BANKCLIA [id number] [place] [address] [facility] HISTORICAL AB SCR STATUS Negative Normal [facility] Comment on above: Order Comment: Speci men Type: BLOOD SPECIMENOrdering Facility: [facility] Address: [address] [place] [address] Performed By: #### T SCR ####[facility] BLOOD BANKCLIA [id number] [address] [place] Rh Nom (Bld) Positive Normal [facility] Comment on above: Order Comment: Speci men Type: BLOOD SPECIMENOrdering Facility: [facility] Address: [address] [place] [address] Performed By: #### T SCR ####[facility] BLOOD BANKCLIA [id number] [place] [id number] [place] TYPE AND SCREEN EXPIRATION 02/06/2024 23:59 Normal [facility] Comment on above: Order Comment: Speci men Type: BLOOD SPECIMENOrdering Facility: [facility] Address: [address] [place] [address] Performed By: #### T SCR ####[facility] BLOOD BANKCLIA [id number] [address] [place] XR CHEST 1V FRONTALon 2023 XR CHEST 1V FRONTAL Normal [facility] XR FEMUR 2V AP/LAT LTon 01-08 XR FEMUR 2V AP/LAT LT Normal [facility] XR HIP 3V PELV+ AP/LAT LTon 02-03-2024 XR HIP 3V PELV+ AP/LAT LT Normal [facility] XR HUMERUS 2V AP/LAT LTon XR HUMERUS 2V AP/LAT LT Normal [facility] XR SHLDR >/=3V AP/NICA AP/OTH R LTon 02-03-2024 XR SHLDR >/=3V AP/NICA AP/OTHR LT Normal [facility] aPTT PPPon 02-03-2024 aPTT Coag (PPP) [Time] 26.2 s Normal 23.0-32.4 [facility] Comment on above: Order Comment: Speci men Type: BLOOD SPECIMENOrdering Facility: [facility] Address: [address] [place] [address] Performed By: #### 1 4979-9, 08953-0 ####[facility] LABORATORYCLIA [id number] [place] [address] [place] Bacteria identified Cx Nom ( U)on 01-30-2024 Interpretation and review of laboratory results Abnormal [facility] Urine cultureon 01-30-2024 Bacteria identified Cx Nom (U) SEE NOTE Abnormal [facility] Comment on above: CULTURE, URINE, ROUTINE Micro Number: [id number] Test Status: Final Specimen Source: Urine Specimen [...] Tressa Lam on 01-27-2024 Bilirubin, UA Negative [facility] Blood, UA Trace-Intact [facility] Glucose, UA Negative [facility] Ketones, UA (mg/dL) Negative Negative mg/dL [facility] Leukocytes, UA Large [facility] Nitrite, UA Negative [facility] pH, UA 6.0 [facility] Protein, UA Negative [facility] Spec Grav, UA <1.005 [facility], [facility]A 0.2 [facility] Radiology Study observation (narrative) [facility] Progress Noteon 01-27-2024 Progress Note [facility] [address] Dept: [phone] Dept Loc: [phone] Subjective Ann Marie Hill is a 83 [...] Blackmon APRN - BELKIS 01/27/2024 12:25 PM [facility] Office Visiton 01-26-2024 Follow-up visit [id number] Ann Marie Hill 1940 F Date Provider Department Center 01/26/2024 [id number] [facility] None No family history on file Level of Service:74107 [place] OFFICE/OUTPT VISIT,PROCEDURE ONLY Reason for Visit and Comments: UTI [[id number]] - UTI x2-3 weeks. Higher frequency. Burning since today. [facility] Progress Noteon 01-26-2024 Progress Note [facility] [address] [place] [id number] Dept: [phone] Dept Loc: [phone] Subjective Ann Marie Hill is a 83 [...] dictations but occasionally words aremis-transcribed.) Susi Norton APRN-INSULATION ENGINEMAN 01/26/24 Normal [facility] CNOVon 01-24-2024 CNOV Normal [facility] ALLIED HEALTHon 01-18-2024 ALLIED HEALTH Normal [facility] Basic metabolic 2000 panelon 01-18-2024 Anion gap [Moles/Vol] 9 mmol/L Normal 9-18 [facility] Comment on above: Order Comment: Speci men Type: BLOOD SPECIMENOrdering Facility: [facility] Address: [address] [place] [address] Performed By: #### 2 4321-2, 3040-3, 86558-3, ####[facility] LABCLIA [id number] [place] [address] [place] Calcium [Mass/Vol] 9.0 mg/dL Normal 8.5-10.2 [facility] Comment on above: Order Comment: Speci men Type: BLOOD SPECIMENOrdering Facility: [facility] Address: [address] [place] [address] Performed By: #### 2 4321-2, 3040-3, 05446-2, ####[facility] LABCLIA [id number] [place] [address] [place] Chloride [Moles/Vol] 106 mmol/L High 97-105 [facility] Comment on above: Order Comment: Speci men Type: BLOOD SPECIMENOrdering Facility: [facility] Address: [address] [place] [address] Performed By: #### 2 4321-2, 3040-3, 98618-7, 04733-0 ####[facility] LABCLIA [id number] [place] [address] [place] CO2 [Moles/Vol] 21 mmol/L Low 22-30 [facility] Comment on above: Order Comment: Speci men Type: BLOOD SPECIMENOrdering Facility: [facility] Address: [address] [place] [address] Performed By: #### 2 4321-2, 3040-3, 96891-5, ####[facility] LABCLIA [id number] [place] [address] [place] [facility] Creatinine [Mass/Vol] 0.84 mg/dL Normal 0.58-0.96 [facility] Comment on above: Order Comment: Speci men Type: BLOOD SPECIMENOrdering Facility: [facility] Address: [address] [place] [address] Result Comment: Use of this assay is not recommended for patients undergoing treatment with phenindione, due to the potential for falsely depressed results. Performed By: #### 2 4321-2, 3040-3, 21829-0, ####[facility] LABCLIA [id number] [place] [address] [place] Creatinine and Glomerular filtration rate.predicted panel (S/P/Bld) 69 mL/min/1.73m??? Normal >=60 [facility] Comment on above: Order Comment: Speci men Type: BLOOD SPECIMENOrdering Facility: [facility] Address: [address] [place] [address] Result Comment: Felicia mated Glomerular Filtration Rate (eGFR) is calculated using the 2021 CKD-EPI creatinine equation. This equation utilizes serum creatinine, sex, and age as parameters. The creatinine assay has traceable calibration to isotope dilution-mass spectrometry. Refer to KDIGO guidelines for clinical interpretation. In patients with unstable renal function, e.g. those with acute kidney injury, the eGFR may not accurately reflect actual GFR. Performed By: #### 2 4321-2, 3040-3, 21287-3, 23701-8 ####[facility] LABCLIA [id number] [place] [address] [place] Glucose [Mass/Vol] 107 mg/dL High 74-99 [facility] Comment on above: Order Comment: Kristin paige Type: BLOOD SPECIMENOrdering Facility: [facility] Address: [address] [place] [address] Result Comment: The [place] Diabetes Association (ADA) provides guidance for cutoff [...] Standards of Medical Care in Diabetes 2016, [place] [employer] Association. Diabetes Care. 2016.39(Suppl 1). Performed By: #### 2 4321-2, 3040-3, 96615-2, ####[facility] LABCLIA [id number] [place] [address] [place] Potassium [Moles/Vol] 3.1 mmol/L Low 3.7-5.1 [facility] Comment on above: Order Comment: Kristin paige Type: BLOOD SPECIMENOrdering Facility: [facility] Address: [address] [place] [address] Performed By: #### 2 4321-2, 3040-3, 33993-1, ####[facility] LABCLIA [id number] [place] [address] [place] Sodium [Moles/Vol] 136 mmol/L Normal 136-144 [facility] Comment on above: Order Comment: Speci men Type: BLOOD SPECIMENOrdering Facility: [facility] Address: [address] [place] [address] Performed By: #### 2 4321-2, 3040-3, 36261-5, 50057-8 ####[facility] LABCLIA [id number] [place] [address] [place] Urea nitrogen [Mass/Vol] 33 mg/dL High 7-21 [facility] Comment on above: Order Comment: Speci men Type: BLOOD SPECIMENOrdering Facility: [facility] Address: [address] [place] [address] Performed By: #### 2 4321-2, 3040-3, 77163-6, 44775-5 ####[facility] LABCLIA [id number] [place] [address] [place] CBC W Auto Differential pane l (Bld)on 01-18-2024 Basophils (Bld) [#/Vol] 10*3/uL Normal <0.11 [facility] Comment on above: Order Comment: Speci men Type: BLOOD SPECIMENOrdering Facility: [facility] Address: [address] [place] [address] Performed By: #### 5 7021-8 ####[facility] LABCLIA [id number] [place] [address] [place] Basophils/100 WBC (Bld) 0.1 % Normal [facility] Comment on above: Order Comment: Speci men Type: BLOOD SPECIMENOrdering Facility: [facility] Address: [address] [place] [address] Performed By: #### 5 7021-8 ####[facility] LABCLIA [id number] [place] [address] [place] Differential cell count method Nom (Bld) Auto Normal [facility] Comment on above: Order Comment: Speci men Type: BLOOD SPECIMENOrdering Facility: [facility] Address: [address] [place] [address] Performed By: #### 5 7021-8 ####[facility] LABCLIA [id number] [place] [address] [place] Eosinophils (Bld) [#/Vol] 0.36 10*3/uL Normal <0.46 [facility] Comment on above: Order Comment: Speci men Type: BLOOD SPECIMENOrdering Facility: [facility] Address: [address] [place] [address] Performed By: #### 5 7021-8 ####[facility] LABCLIA [id number] [place] [id number] [facility] [place] Eosinophils/100 WBC (Bld) 4.7 % Normal [facility] Comment on above: Order Comment: Speci men Type: BLOOD SPECIMENOrdering Facility: [facility] Address: [address] [place] [address] Performed By: #### 5 7021-8 ####[facility] LABCLIA [id number] [place] [address] [place] Erythrocyte distribution width (RBC) [Ratio] 14.4 % Normal 11.5-15.0 [facility] Comment on above: Order Comment: Speci men Type: BLOOD SPECIMENOrdering Facility: [facility] Address: [address] [place] [address] Performed By: #### 5 7021-8 ####[facility] LABCLIA [id number] [place] [address] [place] Hematocrit (Bld) [Volume fraction] 38.9 % Normal 36.0-46.0 [facility] Comment on above: Order Comment: Speci men Type: BLOOD SPECIMENOrdering Facility: [facility] Address: [address] [place] [address] Performed By: #### 5 7021-8 ####[facility] LABCLIA [id number] [place] [address] [place] Hemoglobin (Bld) [Mass/Vol] 13.2 g/dL Normal 11.5-15.5 [facility] Comment on above: Order Comment: Speci men Type: BLOOD SPECIMENOrdering Facility: [facility] Address: [address] [place] [address] Performed By: #### 5 7021-8 ####[facility] LABCLIA [id number] [place] [address] [place] Immature granulocytes (Bld) [#/Vol] 10*3/uL Normal <0.10 [facility] Comment on above: Order Comment: Speci men Type: BLOOD SPECIMENOrdering Facility: [facility] Address: [address] [place] [address] Performed By: #### 5 7021-8 ####[facility] LABCLIA [id number] [place] [address] [place] Immature granulocytes/100 WBC (Bld) 0.1 % Normal [facility] Comment on above: Order Comment: Speci men Type: BLOOD SPECIMENOrdering Facility: [facility] Address: [address] [place] [address] Performed By: #### 5 7021-8 ####[facility] LABCLIA [id number] [place] [address] [place] Lymphocytes (Bld) [#/Vol] 1.20 10*3/uL Normal 1.00-4.00 [facility] Comment on above: Order Comment: Speci men Type: BLOOD SPECIMENOrdering Facility: [facility] Address: [address] [place] [address] Performed By: #### 5 7021-8 ####[facility] LABCLIA [id number] [place] [address] [place] Lymphocytes/100 WBC (Bld) 15.6 % Normal [facility] Comment on above: Order Comment: Speci men Type: BLOOD SPECIMENOrdering Facility: [facility] Address: [address] [place] [address] Performed By: #### 5 7021-8 ####[facility] LABCLIA [id number] [place] [address] [place] MCH (RBC) [Entitic mass] 33.2 pg Normal 26.0-34.0 [facility] Comment on above: Order Comment: Speci men Type: BLOOD SPECIMENOrdering Facility: [facility] Address: [address] [place] [address] Performed By: #### 5 7021-8 ####[facility] LABCLIA [id number] [place] [address] [place] MCHC (RBC) [Mass/Vol] 33.9 g/dL Normal 30.5-36.0 [facility] Comment on above: Order Comment: Speci men Type: BLOOD SPECIMENOrdering Facility: [facility] Address: [address] [place] [address] Performed By: #### 5 7021-8 ####[facility] LABCLIA [id number] [place] [address] [place] MCV (RBC) [Entitic vol] 98.0 fL Normal 80.0-100.0 [facility] Comment on above: Order Comment: Speci men Type: BLOOD SPECIMENOrdering Facility: [facility] Address: [address] [place] [address] Performed By: #### 5 7021-8 ####[facility] LABCLIA [id number] [place] [address] [facility] [place] Monocytes (Bld) [#/Vol] 0.51 10*3/uL Normal <0.87 [facility] Comment on above: Order Comment: Speci men Type: BLOOD SPECIMENOrdering Facility: [facility] Address: [address] [place] [address] Performed By: #### 5 7021-8 ####[facility] LABCLIA [id number] [place] [address] [facility] Monocytes/100 WBC (Bld) 6.6 % Normal [facility] Comment on above: Order Comment: Speci men Type: BLOOD SPECIMENOrdering Facility: [facility] Address: [address] [place] [address] Performed By: #### 5 7021-8 ####[facility] LABCLIA [id number] [place] [address] [place] Neutrophils (Bld) [#/Vol] 5.60 10*3/uL Normal 1.45-7.50 [facility] Comment on above: Order Comment: Speci men Type: BLOOD SPECIMENOrdering Facility: [facility] Address: [address] [place] [address] Performed By: #### 5 7021-8 ####[facility] LABCLIA [id number] [place] [address] [place] Neutrophils/100 WBC (Bld) 72.9 % Normal [facility] Comment on above: Order Comment: Speci men Type: BLOOD SPECIMENOrdering Facility: [facility] Address: [address] [place] [address] Performed By: #### 5 7021-8 ####[facility] LABCLIA [id number] [place] [address] [place] Nucleated RBC (Bld) [#/Vol] Normal [facility] Comment on above: Order Comment: Speci men Type: BLOOD SPECIMENOrdering Facility: [facility] Address: [address] [place] [address] Performed By: #### 5 7021-8 ####[facility] LABCLIA [id number] [place] [address] [place] Nucleated RBC/100 WBC (Bld) [Ratio] Normal [facility] Comment on above: Order Comment: Speci men Type: BLOOD SPECIMENOrdering Facility: [facility] Address: [facility] [place] [address] Performed By: #### 5 7021-8 ####[facility] LABCLIA [id number] [place] [address] [place] Platelet mean volume (Bld) [Entitic vol] 8.8 fL Low 9.0-12.7 [facility] Comment on above: Order Comment: Speci men Type: BLOOD SPECIMENOrdering Facility: [facility] Address: [address] [place] [address] Performed By: #### 5 7021-8 ####[facility] LABCLIA [id number] [place] [address] [place] [facility] Platelets (Bld) [#/Vol] 278 10*3/uL Normal 150-400 [facility] Comment on above: Order Comment: Speci men Type: BLOOD SPECIMENOrdering Facility: [facility] Address: [address] [place] [address] Performed By: #### 5 7021-8 ####[facility] LABCLIA [id number] [place] [address] [place] RBC (Bld) [#/Vol] 3.97 10*6/uL Normal 3.90-5.20 [facility] Comment on above: Order Comment: Speci men Type: BLOOD SPECIMENOrdering Facility: [facility] Address: [address] [place] [address] Performed By: #### 5 7021-8 ####[facility] LABCLIA [id number] [place] [address] [facility] [place] WBC (Bld) [#/Vol] 7.69 10*3/uL Normal 3.70-11.00 [facility] Comment on above: Order Comment: Speci men Type: BLOOD SPECIMENOrdering Facility: [facility] Address: [address] [place], [place] [address] Performed By: #### 5 7021-8 ####[facility] LABCLIA [id number] [place] [address] [place] CT ABD/PEL W IVCONon 024 CT ABD/PEL W IVCON Normal [facility] ED NOTEon 01-18-2024 ED NOTE HNO ID: [id number] Author: MARY ELLEN KNAPP, RN Service: Emergency Medicine Author Type: Registered Nurse Type: ED Notes Filed: 01/18/2024 14:14 Note Text: Patient assisted with dressing. Escorted to vehicle in wheelchair with assist X 1 into car. Normal [facility] ED NOTE Normal [facility] ED NOTE HNO ID: [id number] Author: MARY ELLEN KNAPP, RN Service: Emergency Medicine Author Type: Registered Nurse Type: ED Notes Filed: 01/18/2024 12:43 Note Text: NC removed. Patient maintaining saturations above 97% on RA Normal [facility] ED NOTE Normal [facility] ED NOTE Normal [facility] ED PROV NOTEon 01-18-2024 ED PROV NOTE Normal [facility] FLUABV+SARS-CoV-2+RSV Pnl Re sp HAYDEN+probeon 01-18-2024 FLUABV+SARS-CoV-2+RSV Pnl Resp HAYDEN+probe Normal [facility] Comment on above: Performed By: #### 9 5941-1 ####[facility] LABCLIA [id number] [place] [address] [place] [facility] Hepatic function 2000 panelo n 01-18-2024 Albumin [Mass/Vol] 3.8 g/dL Low 3.9-4.9 [facility] Comment on above: Order Comment: Speci men Type: BLOOD SPECIMENOrdering Facility: [facility] Address: [address] [place] [address] Performed By: #### 2 4321-2, 3040-3, 90110-1, ####[facility] LABCLIA [id number] [place] [address] [place] ALP [Catalytic activity/Vol] 96 U/L Normal 34-123 [facility] Comment on above: Order Comment: Speci men Type: BLOOD SPECIMENOrdering Facility: [facility] Address: [address] [place] [address] Performed By: #### 2 4321-2, 3040-3, 07055-5, ####[facility] LABCLIA [id number] [place] [address] [place] ALT [Catalytic activity/Vol] 30 U/L Normal 7-38 [facility] Comment on above: Order Comment: Speci men Type: BLOOD SPECIMENOrdering Facility: [facility] Address: [address] [place] [address] Performed By: #### 2 4321-2, 3040-3, 31712-7, ####[facility] LABCLIA [id number] [place] [address] [place] AST [Catalytic activity/Vol] 25 U/L Normal 13-35 [facility] Comment on above: Order Comment: Speci men Type: BLOOD SPECIMENOrdering Facility: [facility] Address: [address] [place] [address] Performed By: #### 2 4321-2, 3040-3, 30420-1, ####[facility] LABCLIA [id number] [place] [address] [place] Bilirubin [Mass/Vol] 0.3 mg/dL Normal 0.2-1.3 [facility] Comment on above: Order Comment: Speci men Type: BLOOD SPECIMENOrdering Facility: [facility] Address: [address] [place] [address] Performed By: #### 2 4321-2, 3040-3, 09690-7, ####[facility] LABCLIA [id number] [place] [address] [place] Bilirubin.conjugated [Mass/Vol] 0.0 mg/dL Normal <0.2 [facility] Comment on above: Order Comment: Speci men Type: BLOOD SPECIMENOrdering Facility: [facility] Address: [address] [place] [address] Performed By: #### 2 4321-2, 3040-3, 81330-0, 57202-7 ####[facility] LABCLIA [id number] [place] [address] [place] Protein [Mass/Vol] 7.0 g/dL Normal 6.3-8.0 [facility] Comment on above: Order Comment: Speci men Type: BLOOD SPECIMENOrdering Facility: [facility] Address: [address] [place] [address] Performed By: #### 2 4321-2, 3040-3, 85243-2, 45441-2 ####[facility] LABCLIA [id number] [place] [address] [place] Lactate (Bld) [Moles/Vol]on 01-18-2024 Lactate [Moles/Vol] 1.1 mmol/L Normal 0.5-2.2 [facility] Comment on above: Order Comment: Speci men Type: BLOOD SPECIMENOrdering Facility: [facility] Address: [address] [place] [address] Performed By: #### 3 2693-4 ####[facility] LABCLIA [id number] [place] [id number] [place] Lipase SerPl-cCncon 01-18-20 24 Lipase [Catalytic activity/Vol] 15 U/L Low 16-61 [facility] Comment on above: Order Comment: Speci men Type: BLOOD SPECIMENOrdering Facility: [facility] Address: [address] [place] [address] Performed By: #### 2 4321-2, 3040-3, 38844-9, 61059-2 ####[facility] LABCLIA [id number] [place] [address] [place] Magnesium SerPl-mCncon 01-17 Magnesium [Mass/Vol] 2.1 mg/dL Normal 1.7-2.3 [facility] Comment on above: Order Comment: Speci men Type: BLOOD SPECIMENOrdering Facility: [facility] Address: [address] [place], [place] [address] Performed By: #### 2 4321-2, 3040-3, 36252-0, 34510-3 ####[facility] LABCLIA [id number] [place] [address] [place] CNPNon 01-10-2024 CNPN Normal [facility] CASE MANAGEMon 01-01-2024 CASE MANAGEM HNO ID: [id number] Author: ASTRID MUNSON RN Service: ? Author Type: Registered Nurse Type: Care Mgt Progress Note Filed: 01/01/2024 16:23 Note Text: CARE MANAGEMENT DISCHARGE NOTE SERVICE DATE: January 01, 2024 SERVICE TIME: 4:21 PM Admission Date: 12/25/2023 LOS: 0 days Discharge Arrangement Discharge Arrangement: Alf Facility Was an expedited discharge program used?: No [facility] Care[facility]iver Assessment Caregiver is ready, willing and able to meet the patient's needs as recommended by the inter-professional team: Other: See Comment (SNF) Transportation Arrangements Transportation Arrangements: Ambulance Transportation Agency and Phone #:: [facility] [phone] Date of Trip: 01/01/24 Time of Trip: 1700 Type of Service: BLS Non-emergency Is Patient Medicaid Pending?: No Was transportation financial coverage discussed with family?: Spouse [employer] Superintendent Location: [place] [facility] Management Responsibility: None Handoff Communication: Handoff to: Primary Care Physician Primary Care Physician Name/Phone: Dr. Festus Grimes- [phone] Additional Information: Discharge order written for today. [facility] ambulance transport set up for a 5:00 garbage pick up man. Spoke with the patients Orestes regarding the patients discharge to [facility] today with a 5:00 garbage pick up man time scheduled. Notified the RN and WOOL SCOURER of the garbage pick up man time. Notified the [facility] of the patients discharge today and garbage pick up man time. Discharge instructions sent to [facility] via [employer]. SIGNATURE: Astrid Munson RN PATIENT NAME: Ann Marie Hill DATE: January 01, 2024 TIME: 4:21 PM CONTACT #: [phone] [facility] CASE MANAGEM HNO ID: [id number] Author: ASTRID MUNSON RN Service: ? Author Type: Registered Nurse Type: Care Mgt Progress Note Filed: 01/01/2024 15:31 Note Text: CARE MANAGEMENT PROGRESS NOTE SERVICE DATE: 01/01/2024 SERVICE TIME: 9:30 am LOS: 0 days Needs Prior to Discharge: Precertification Received a VM message from [facility] with [facility] that the precert is still pending. CM department will continue to follow for DC needs. 3:30 pm- Took call from [facility] with [facility] she has precert for the patient. Notified Dr. Cook. SIGNATURE: Astrid Munson RN PATIENT NAME: Ann Marie Hill DATE: January 01, 2024 TIME: 12:23 PM PAGER/CONTACT #: [phone] [facility] 01-01-2024 [facility] HNO ID: [id number] Author: AKI COOK MD Service: Hospital Medicine [...] CONSULTS DURING HOSPITALIZATION: Treatment Team: Primary Service: 4, [facility] Consulting: Aramis Nascimento MD Orders Placed This Encounter PHYSICIAN CONSULT PATIENT CONDITION AT DISCHARGE: Stable DISCHARGE DISPOSITION: Alf Facility GENERAL: Alert, no distress, cooperative SKIN: [...] Department Center 02/20/2024 1:00 PM Helio Goff APRN.PIG MACHINE OPERATOR [facility] [place] ALLERGIES Allergen Reactions Yuli [...] Health Literacy Identified I have performed the gprs-ne-hidx and relevant services for a total of < 30 minutes. Plan of care discussed with Provider, RN, Patient SIGNATURE: Aki Cook MD DATE: January 10, 2024 TIME: 4:[address] [facility] NUTRITIONon 01-01-2024 NUTRITION HNO ID: [id number] Author: SHASHI GARAY RD Service: Nutrition Therapy [...] Ordered 12/26/23 0000 Diet Regular START NOW 12/25/23 4866 Anthropometrics: Weight: 75.2 kg (165 lb 12.6 oz) Body mass index is 28.46 kg/m?. MNT Billing: $ Routine Care : 1-15 minutes SIGNATURE: Shashi Garay RD PATIENT NAME: Ann Marie Hill DATE: January 01, 2024 TIME: 10:[address] [facility] CASE MANAGEMon 12-31-2023 CASE MANAGEM HNO ID: [id number] Author: SANTANA OLSEN LISW Service: ? Author Type: Clinical Asst Type: Care Mgt Progress Note Filed: 12/31/2023 11:41 Note Text: CARE MANAGEMENT PROGRESS NOTE SERVICE DATE: 12/31/2023 SERVICE TIME: 11:40 AM LOS: 0 days Needs Prior to Discharge: To Be Determined;Other: See Comment;Discharge Transportation;Insura nce Authorization (medical clearance) Still awaiting auth from [facility]. PASRR completed. Unfinished envelope on chart. SIGNATURE: PERICO Hardin PATIENT NAME: Ann Marie Hill DATE: December 31, 2023 TIME: 11:40 AM PAGER/CONTACT #: [phone] [facility] Basic metabolic 2000 panelon 12-30-2023 Anion gap [Moles/Vol] 11 mmol/L Normal 9-18 [facility] Comment on above: Order Comment: Speci men Type: BLOOD SPECIMENOrdering Facility: [facility] Address: [address] [id number] Performed By: #### 2 4321-2, ####[facility] LABORATORYCLIA [id number] [place] [address] [place] Calcium [Mass/Vol] 8.9 mg/dL Normal 8.5-10.2 [facility] Comment on above: Order Comment: Speci men Type: BLOOD SPECIMENOrdering Facility: [facility] Address: [address] [place] [address] Performed By: #### 2 4321-2, ####M[facility]AL[facility] LABORATORYCLIA [id number] [place] [address] [place] Chloride [Moles/Vol] 104 mmol/L Normal 97-105 [facility] Comment on above: Order Comment: Speci men Type: BLOOD SPECIMENOrdering Facility: [facility] Address: [address] [place] [address] Performed By: #### 2 4320-2, ####M[facility]AL[facility] LABORATORYCLIA [id number] [place] [address] [place] CO2 [Moles/Vol] 23 mmol/L Normal 22-30 [facility] Comment on above: Order Comment: Speci men Type: BLOOD SPECIMENOrdering Facility: [facility] Address: [address] [place], [place] [address] Performed By: #### 2 4320-2, ####MORAL[facility] LABORATORYCLIA [id number] [place] [id number] [place] Creatinine [Mass/Vol] 0.86 mg/dL Normal 0.58-0.96 [facility] Comment on above: Order Comment: Speci men Type: BLOOD SPECIMENOrdering Facility: [facility] Address: [address] [place] [address] Performed By: #### 2 4321-2, ####MORAL[facility] LABORATORYCLIA [id number] [place] [id number] [facility] [place] Creatinine and Glomerular filtration rate.predicted panel (S/P/Bld) 68 mL/min/1.73m??? Normal >=60 [facility] Comment on above: Order Comment: Kristin paige Type: BLOOD SPECIMENOrdering Facility: [facility] Address: [address] [place] [address] Result Comment: Felicia mated Glomerular Filtration Rate [...] actual GFR. Performed By: #### 2 4321-2, 58635-2 ####MORALES LABORATORYCLIA [id number] [place] [id number] [place] Glucose [Mass/Vol] 112 mg/dL High 74-99 [facility] Comment on above: Order Comment: Kristin paige Type: BLOOD SPECIMENOrdering Facility: [facility] Address: [address] [place] [address] Result Comment: The [place] Diabetes Association (ADA) provides guidance for cutoff [...] Standards of Medical Care in Diabetes 2016, [place] [employer]. Diabetes Care. 2016.39(Suppl 1). Performed By: #### 2 4321-2, 43118-1 ####[facility]ORATORYCLIA [id number] [place] [id number] [place] Potassium [Moles/Vol] 4.7 mmol/L Normal 3.7-5.1 [facility] Comment on above: Order Comment: Kristin paige Type: BLOOD SPECIMENOrdering Facility: [facility] Address: [address] [place] [address] Performed By: #### 2 4321-2, ####MORALES LABORATORYCLIA [id number] [address] [place] Sodium [Moles/Vol] 138 mmol/L Normal 136-144 [facility] Comment on above: Order Comment: Speci men Type: BLOOD SPECIMENOrdering Facility: [facility] Address: [address] [place] [address] Performed By: #### 2 4321-2, ####MORAL[facility] LABORATORYCLIA [id number] [place] [address] [place] Urea nitrogen [Mass/Vol] 27 mg/dL High 7-21 [facility] Comment on above: Order Comment: Speci men Type: BLOOD SPECIMENOrdering Facility: [facility] Address: [facility] [address] Performed By: #### 2 4321-2, ####MORALES LABORATORYCLIA [id number] [place] [address] [place] CBC panel Auto (Bld)on 12-29 Erythrocyte distribution width (RBC) [Ratio] 13.6 % Normal 11.5-15.0 [facility] Comment on above: Order Comment: Speci men Type: BLOOD SPECIMEN [facility] Address: [facility] [place] [address] Performed By: #### 5 8410-2 #### [facility] CLIA [id number] [address] [place] Hematocrit (Bld) [Volume fraction] 34.3 % Low 36.0-46.0 [facility] Comment on above: Order Comment: Speci men Type: BLOOD SPECIMEN [facility] Address: [facility] [address] Performed By: #### 5 8410-2 #### [facility] CLIA [id number] [address] [place] [address] [place] Hemoglobin (Bld) [Mass/Vol] 11.2 g/dL Low 11.5-15.5 [facility] Comment on above: Order Comment: Speci men Type: BLOOD SPECIMEN [facility] Address: [address] [place] [address] Performed By: #### 5 8410-2 #### [facility] CLIA [id number] [address] MCH (RBC) [Entitic mass] 30.9 pg Normal 26.0-34.0 [facility] Comment on above: Order Comment: Speci men Type: BLOOD SPECIMEN [facility] Address: [address] [place] [address] Performed By: #### 5 8410-2 #### [facility] CLIA [id number] [address] MCHC (RBC) [Mass/Vol] 32.7 g/dL Normal 30.5-36.0 [facility] Comment on above: Order Comment: Speci men Type: BLOOD SPECIMEN [facility] Address: [address] [place] [address] Performed By: #### 5 8410-2 #### [facility] CLIA [id number] [address] MCV (RBC) [Entitic vol] 94.5 fL Normal 80.0-100.0 [facility] Comment on above: Order Comment: Speci men Type: BLOOD SPECIMEN [facility] Address: [address] [place] [address] Performed By: #### 5 8410-2 #### [facility] CLIA [id number] [address] Nucleated RBC (Bld) [#/Vol] 10*3/uL Normal <0.01 [facility] Comment on above: Order Comment: Speci men Type: BLOOD SPECIMEN [facility] Address: [address] [place] [address] Performed By: #### 5 8410-2 #### [facility] CLIA [id number] [address] Platelet mean volume (Bld) [Entitic vol] 9.0 fL Normal 9.0-12.7 [facility] Comment on above: Order Comment: Speci men Type: BLOOD SPECIMEN [facility] Address: [address] [place] [address] Performed By: #### 5 8410-2 #### [facility] CLIA [id number] [address] [place] Platelets (Bld) [#/Vol] 305 10*3/uL Normal 150-400 [facility] Comment on above: Order Comment: Speci men Type: BLOOD SPECIMEN [facility] Address: [address] [place] [address] Performed By: #### 5 8410-2 #### [facility] CLIA [id number] [address] [place] [address] [place] RBC (Bld) [#/Vol] 3.63 10*6/uL Low 3.90-5.20 [facility] Comment on above: Order Comment: Speci men Type: BLOOD SPECIMEN [facility] Address: [address] [place] [address] Performed By: #### 5 8410-2 #### [facility] CLIA [id number] [address] [place] [address] [place] WBC (Bld) [#/Vol] 9.09 10*3/uL Normal 3.70-11.00 [facility] Comment on above: Order Comment: Speci men Type: BLOOD SPECIMEN [facility] Address: [address] [place] [address] Performed By: #### 5 8410-2 #### [facility] CLIA [id number] [address] [place] Magnesium SerPl-mCncon 12-29 Magnesium [Mass/Vol] 2.3 mg/dL Normal 1.7-2.3 [facility] Comment on above: Order Comment: Speci men Type: BLOOD SPECIMENOrdering Facility: [facility] Address: [address] [place] [address] Performed By: #### 2 4321-2, 29924-1 ####MORALES LABORATORYCLIA [id number] [place] [address] [facility] THERAPY NTon 12-30-2023 THERAPY NT HNO ID: [id number] Author: BERNARDO TOLEDO PT Service: Physical Therapy Author Type: Physical Therapist Type: Therapy (PT/OT/Speech/Resp) Filed: 12/30/2023 15:47 Note Text: Summary: PT treatment Physical Therapy Treatment Summary SERVICE DATE: 12/30/2023 SERVICE TIME: 1450 to 1533 ROOM: [address] [address] PT 6 Clicks Score: 16 Total Joint [...] HOME LIVING Patient Lives With: Facility Care ([facility] memory care unit) Assistance Available: [...] DIAGNOSIS Reduced mobility-other TREATMENT INTERVENTIONS Therapeutic Exercise (83320), Therapeutic Activity (08717), Gait Training (71373) Timed Code Treatment (minutes): 38 Skilled Treatment [...] Transfers, Exerc (more content not included)... Normal [facility] Basic metabolic 2000 panelon 12-29-2023 Anion gap [Moles/Vol] 10 mmol/L Normal 9-18 [facility] Comment on above: Order Comment: Speci men Type: BLOOD SPECIMEN [facility] Address: [address] [place] [address] Performed By: #### 1 9123-9, 76401-5 #### [facility] CLIA [id number] [address] [place] [address] [place] Calcium [Mass/Vol] 9.0 mg/dL Normal 8.5-10.2 [facility] Comment on above: Order Comment: Speci men Type: BLOOD SPECIMEN [facility] Address: [address] [place] [address] Performed By: #### 1 9123-9, 89135-6 #### [facility] CLIA [id number] [address] [place] [address] [place] Chloride [Moles/Vol] 104 mmol/L Normal 97-105 [facility] Comment on above: Order Comment: Speci men Type: BLOOD SPECIMEN [facility] Address: [address] [place] [address] Performed By: #### 1 9123-9, 48352-1 #### [facility] CLIA [id number] [address] [place] [address] [place] CO2 [Moles/Vol] 25 mmol/L Normal 22-30 [facility] Comment on above: Order Comment: Speci men Type: BLOOD SPECIMEN [facility] Address: [address] [place] [address] Performed By: #### 1 9123-9, 97805-8 #### [facility] CLIA [id number] [address] [place] [address] [place] Creatinine [Mass/Vol] 0.79 mg/dL Normal 0.58-0.96 [facility] Comment on above: Order Comment: Kristin paige Type: BLOOD SPECIMEN [facility] Address: [address] [place] [address] Performed By: #### 1 9123-9, 60372-4 #### [facility] CLIA [id number] [address] [facility] Creatinine and Glomerular filtration rate.predicted panel (S/P/Bld) 75 mL/min/1.73m??? Normal >=60 [facility] Comment on above: Order Comment: Kristin paige Type: BLOOD SPECIMEN [facility] Address: [address] [place] [address] Result Comment: Felicia mated Glomerular Filtration Rate [...] actual GFR. Performed By: #### 1 9123-9, 97624-0 #### [facility] CLIA [id number] [address] [place] Glucose [Mass/Vol] 109 mg/dL High 74-99 [facility] Comment on above: Order Comment: Kristin paige Type: BLOOD SPECIMEN [facility] Address: [address] [place] [address] Result Comment: The [place] Diabetes Association (ADA) provides guidance for cutoff [...] Standards of Medical Care in Diabetes 2016, [place] [employer]. Diabetes Care. 2016.39(Suppl 1). Performed By: #### 1 9123-9, 47720-6 #### [facility] CLIA [id number] [address] STATES [facility] Potassium [Moles/Vol] 4.1 mmol/L Normal 3.7-5.1 [facility] Comment on above: Order Comment: Kristin paige Type: BLOOD SPECIMEN [facility] Address: [address] [place] [address] Performed By: #### 1 9123-9, 19194-8 #### [facility] CLIA [id number] [address] Sodium [Moles/Vol] 139 mmol/L Normal 136-144 [facility] Comment on above: Order Comment: Kristin paige Type: BLOOD SPECIMEN [facility] Address: [address] [place] [address] Performed By: #### 1 9123-9, 86842-2 #### [facility] CLIA [id number] [address] STATES [facility] Urea nitrogen [Mass/Vol] 25 mg/dL High 7-21 [facility] Comment on above: Order Comment: Kristin paige Type: BLOOD SPECIMEN [facility] Address: [address] [place] [address] Performed By: #### 1 9123-9, 93306-4 #### [facility] CLIA [id number] [address] [place] CASE MANAGEMon 12-29-2023 CASE MANAGEM HNO ID: [id number] Author: ASTRID MUNSON RN Service: ? Author Type: Registered Nurse Type: Care Mgt Progress Note Filed: 12/29/2023 09:25 Note Text: CARE MANAGEMENT PROGRESS NOTE SERVICE DATE: 12/29/2023 SERVICE TIME: 9:07 AM LOS: 0 days Needs Prior to Discharge: Facility or Agency Choices;Precertificat [facility]. Updated the patients daughter Christos, Christos stated she will updated her dad and notify CM of their choice. CM department will continue to follow for DC needs. 9:24 am- Spoke with Christos, [facility]. Tasked [facility] to start precert. SIGNATURE: Astrid Munson RN PATIENT NAME: Ann Marie Hill DATE: December 29, 2023 TIME: 9:07 AM PAGER/CONTACT #: [phone] Normal [facility] CBC panel Auto (Bld)on 12-28 Erythrocyte distribution width (RBC) [Ratio] 13.5 % Normal 11.5-15.0 [facility] Comment on above: Order Comment: Speci men Type: BLOOD SPECIMENOrdering Facility: [facility] Address: [address] [place] [address] Performed By: #### 5 8410-2 ####[facility] LABORATORYCLIA [id number] [place] [address] [place] Hematocrit (Bld) [Volume fraction] 34.5 % Low 36.0-46.0 [facility] Comment on above: Order Comment: Speci men Type: BLOOD SPECIMENOrdering Facility: [facility] Address: [address] [place] [address] Performed By: #### 5 8410-2 ####[facility] LABORATORYCLIA [id number] [place] [address] [place] Hemoglobin (Bld) [Mass/Vol] 11.7 g/dL Normal 11.5-15.5 [facility] Comment on above: Order Comment: Speci men Type: BLOOD SPECIMENOrdering Facility: [facility] Address: [address] [place] [address] Performed By: #### 5 8410-2 ####[facility] LABORATORYCLIA [id number] [place] [address] [place] MCH (RBC) [Entitic mass] 32.1 pg Normal 26.0-34.0 [facility] Comment on above: Order Comment: Speci men Type: BLOOD SPECIMENOrdering Facility: [facility] Address: [address] [place] [address] Performed By: #### 5 8410-2 ####[facility] LABORATORYCLIA [id number] [address] MCHC (RBC) [Mass/Vol] 33.9 g/dL Normal 30.5-36.0 [facility] Comment on above: Order Comment: Speci men Type: BLOOD SPECIMENOrdering Facility: [facility] Address: [address] [place] [address] Performed By: #### 5 8410-2 ####[facility] LABORATORYCLIA [id number] [address] MCV (RBC) [Entitic vol] 94.8 fL Normal 80.0-100.0 [facility] Comment on above: Order Comment: Speci men Type: BLOOD SPECIMENOrdering Facility: [facility] Address: [address] [place] [address] Performed By: #### 5 8410-2 ####[facility] LABORATORYCLIA [id number] [address] Nucleated RBC (Bld) [#/Vol] 10*3/uL Normal <0.01 [facility] Comment on above: Order Comment: Speci men Type: BLOOD SPECIMENOrdering Facility: [facility] Address: [address] [place] [address] Performed By: #### 5 8410-2 ####[facility] LABORATORYCLIA [id number] [address] Platelet mean volume (Bld) [Entitic vol] 9.0 fL Normal 9.0-12.7 [facility] Comment on above: Order Comment: Speci men Type: BLOOD SPECIMENOrdering Facility: [facility] Address: [address] [place] [address] Performed By: #### 5 8410-2 ####[facility] LABORATORYCLIA [id number] [address] Platelets (Bld) [#/Vol] 288 10*3/uL Normal 150-400 [facility] Comment on above: Order Comment: Speci men Type: BLOOD SPECIMENOrdering Facility: [facility] Address: [address] [place] [address] Performed By: #### 5 8410-2 ####[facility]ORATORYCLIA [id number] [address] [facility] RBC (Bld) [#/Vol] 3.64 10*6/uL Low 3.90-5.20 [facility] Comment on above: Order Comment: Speci men Type: BLOOD SPECIMENOrdering Facility: [facility] Address: [address] [place] [address] Performed By: #### 5 8410-2 ####[facility]ORATORYCLIA [id number] [address] WBC (Bld) [#/Vol] 7.97 10*3/uL Normal 3.70-11.00 [facility] Comment on above: Order Comment: Speci men Type: BLOOD SPECIMENOrdering Facility: [facility] Address: [address] [place] [address] Performed By: #### 5 8410-2 ####[facility]ORYCLIA [id number] [address] Magnesium SerPl-mCncon 12-28 Magnesium [Mass/Vol] 2.3 mg/dL Normal 1.7-2.3 [facility] Comment on above: Order Comment: Speci men Type: BLOOD SPECIMEN [facility] Address: [address] [place] [address] Performed By: #### 1 9123-9, 90617-3 #### [facility] CLIA [id number] [address] Basic metabolic 2000 panelon 12-28-2023 Anion gap [Moles/Vol] 10 mmol/L Normal 9-18 [facility] Comment on above: Order Comment: Speci men Type: BLOOD SPECIMENOrdering Facility: [facility] Address: [address] [place] [address] Performed By: #### 1 9123-9, 78020-7 ####[facility] LABORATORYCLIA [id number] [place] [address] [place] Calcium [Mass/Vol] 9.3 mg/dL Normal 8.5-10.2 [facility] Comment on above: Order Comment: Speci men Type: BLOOD SPECIMENOrdering Facility: [facility] Address: [address] [place] [address] Performed By: #### 1 9123-9, 11282-7 ####[facility] LABORATORYCLIA [id number] [place] [address] [place] Chloride [Moles/Vol] 102 mmol/L Normal 97-105 [facility] Comment on above: Order Comment: Speci men Type: BLOOD SPECIMENOrdering Facility: [facility] Address: [address] [place] [address] Performed By: #### 1 9123-9, 60496-7 ####[facility] LABORATORYCLIA [id number] [place] [address] [place] CO2 [Moles/Vol] 26 mmol/L Normal 22-30 [facility] Comment on above: Order Comment: Speci men Type: BLOOD SPECIMENOrdering Facility: [facility] Address: [address] [place] [address] Performed By: #### 1 239, 29017-0 ####[facility] LABORATORYCLIA [id number] [place] [address] [place] Creatinine [Mass/Vol] 0.77 mg/dL Normal 0.58-0.96 [facility] Comment on above: Order Comment: Speci men Type: BLOOD SPECIMENOrdering Facility: [facility] Address: [address] [place] [address] Performed By: #### 1 9123-9, 13302-2 ####[facility] LABORATORYCLIA [id number] [address] Creatinine and Glomerular filtration rate.predicted panel (S/P/Bld) 77 mL/min/1.73m??? Normal >=60 [facility] Comment on above: Order Comment: Speci men Type: BLOOD SPECIMENOrdering Facility: [facility] Address: [address] [place] [address] Result Comment: Felicia mated Glomerular Filtration Rate [...] actual GFR. Performed By: #### 1 9123-9, 70740-9 ####[facility]ATORYCLIA [id number] [place] [id number] [place] Glucose [Mass/Vol] 120 mg/dL High 74-99 [facility] Comment on above: Order Comment: Kristin paige Type: BLOOD SPECIMENOrdering Facility: [facility] Address: [address] [place] [address] Result Comment: The [place] Diabetes Association (ADA) provides guidance for cutoff [...] Standards of Medical Care in Diabetes 2016, [place] [employer]. Diabetes Care. 2016.39(Suppl 1). Performed By: #### 1 9123-9, 32324-0 ####[facility]ORYCLIA [id number] [place] [id number] [place] Potassium [Moles/Vol] 3.5 mmol/L Low 3.7-5.1 [facility] Comment on above: Order Comment: Kristin paige Type: BLOOD SPECIMENOrdering Facility: [facility] Address: [address] [place] [address] Performed By: #### 1 9123-9, 93292-8 ####[facility]ORATORYCLIA [id number] [place] [address] [facility] Sodium [Moles/Vol] 138 mmol/L Normal 136-144 [facility] Comment on above: Order Comment: Speci men Type: BLOOD SPECIMENOrdering Facility: [facility] Address: [address] [place], [place] [address] Performed By: #### 1 9123-9, 58107-3 ####MORALES LABORATORYCLIA [id number] [place] [id number] [facility] Urea nitrogen [Mass/Vol] 20 mg/dL Normal 7-21 [facility] Comment on above: Order Comment: Speci men Type: BLOOD SPECIMENOrdering Facility: [facility] Address: [address] [place], [place] [address] Performed By: #### 1 9123-9, 74264-2 ####MORALES LABORATORYCLIA [id number] [address] CASE MANAGEMon 12-28-2023 CASE MANAGEM HNO ID: [id number] Author: ASTRID MUNSON RN Service: ? Author Type: Registered Nurse Type: Care Mgt Progress Note Filed: 12/28/2023 14:56 Note Text: CARE MANAGEMENT PROGRESS NOTE SERVICE DATE: 12/28/2023 SERVICE TIME: 8:31 AM LOS: 0 days Needs Prior to Discharge: Accepting Facility;Precertifica tion Received an email from the patients daughter Christos,she would like [facility] in [place]. Referral placed. CM department will continue to follow for DC needs. 11:51 am- No response from [facility]. Call placed to [facility] and left a message on the VM of admissions requesting a follow up on referral. 12:43 pm- Received 2 additional SNF choices from the patients daughter- Roshan at [place] and [facility] in [place]. Referrals placed. 2:53 pm- Received an Email from the patients daughter Christos and also an email stating the patients Orestes spoke with Zak and they need all the patients medical information. Noted to Christos that we have already sent all the patients information over to [facility]. Call placed to [facility] and spoke with Judi, Judi stated she would talk with Inez who is also in admission and have her call CM back or respond in [employer]. SIGNATURE: Astrid Munson RN PATIENT NAME: Ann Marie Hill DATE: December 28, 2023 TIME: 8:31 AM PAGER/CONTACT #: [phone] Normal [facility] CBC panel Auto (Bld)on 12-27 Erythrocyte distribution width (RBC) [Ratio] 13.4 % Normal 11.5-15.0 [facility] Comment on above: Order Comment: Speci men Type: BLOOD SPECIMENOrdering Facility: [facility] Address: [address] [place] [address] Performed By: #### 5 8410-2 ####MORALES LABORATORYCLIA [id number] [address] Hematocrit (Bld) [Volume fraction] 38.6 % Normal 36.0-46.0 [facility] Comment on above: Order Comment: Speci men Type: BLOOD SPECIMENOrdering Facility: [facility] Address: [address] [place] [address] Performed By: #### 5 8410-2 ####MORALES LABORATORYCLIA [id number] [place] [address] [place] Hemoglobin (Bld) [Mass/Vol] 12.9 g/dL Normal 11.5-15.5 [facility] Comment on above: Order Comment: Speci men Type: BLOOD SPECIMENOrdering Facility: [facility] Address: [address] [place] [address] Performed By: #### 5 8410-2 ####MORALES LABORATORYCLIA [id number] [address] [place] MCH (RBC) [Entitic mass] 31.1 pg Normal 26.0-34.0 [facility] Comment on above: Order Comment: Speci men Type: BLOOD SPECIMENOrdering Facility: [facility] Address: [address] [place] [address] Performed By: #### 5 8410-2 ####MORALES LABORATORYCLIA [id number] [address] [place] MCHC (RBC) [Mass/Vol] 33.4 g/dL Normal 30.5-36.0 [facility] Comment on above: Order Comment: Speci men Type: BLOOD SPECIMENOrdering Facility: [facility] Address: [address] [place] [address] Performed By: #### 5 8410-2 ####MORALES LABORATORYCLIA [id number] [address] [place] MCV (RBC) [Entitic vol] 93.0 fL Normal 80.0-100.0 [facility] Comment on above: Order Comment: Speci men Type: BLOOD SPECIMENOrdering Facility: [facility] Address: [address] [place] [address] Performed By: #### 5 8410-2 ####MORALES LABORATORYCLIA [id number] [address] Nucleated RBC (Bld) [#/Vol] 10*3/uL Normal <0.01 [facility] Comment on above: Order Comment: Speci men Type: BLOOD SPECIMENOrdering Facility: [facility] Address: [address] [place] [address] Performed By: #### 5 8410-2 ####MORALES LABORATORYCLIA [id number] [address] [place] Platelet mean volume (Bld) [Entitic vol] 8.8 fL Low 9.0-12.7 [facility] Comment on above: Order Comment: Speci men Type: BLOOD SPECIMENOrdering Facility: [facility] Address: [address] [place] [address] Performed By: #### 5 8410-2 ####MORALES LABORATORYCLIA [id number] [address] Platelets (Bld) [#/Vol] 287 10*3/uL Normal 150-400 [facility] Comment on above: Order Comment: Speci men Type: BLOOD SPECIMENOrdering Facility: [facility] Address: [address] [place] [address] Performed By: #### 5 8410-2 ####MORALES LABORATORYCLIA [id number] [place] [address] [place] RBC (Bld) [#/Vol] 4.15 10*6/uL Normal 3.90-5.20 [facility] Comment on above: Order Comment: Speci men Type: BLOOD SPECIMENOrdering Facility: [facility] Address: [facility] [place] [address] Performed By: #### 5 8410-2 ####[facility] LABORATORYCLIA [id number] [address] OF [facility] WBC (Bld) [#/Vol] 9.76 10*3/uL Normal 3.70-11.00 [facility] Comment on above: Order Comment: Speci men Type: BLOOD SPECIMENOrdering Facility: [facility] Address: [address] [place] [address] [place] [address] Performed By: #### 5 8410-2 ####VALDOSTA LABORATORYCLIA [id number] [address] Magnesium SerPl-mCncon 12-27 Magnesium [Mass/Vol] 2.0 mg/dL Normal 1.7-2.3 [facility] Comment on above: Order Comment: Speci men Type: BLOOD SPECIMENOrdering Facility: [facility] Address: [address] [place] [address] Performed By: #### 1 9123-9, 23558-9 ####MORALES LABORATORYCLIA [id number] [address] THERAPY NTon 12-28-2023 THERAPY NT HNO ID: [id number] Author: BRINDA PHILLIPS PTA Service: Physical Therapy Author Type: Community Affairs Manager Type: Therapy (PT/OT/Speech/Resp) Filed: 12/28/2023 16:16 Note Text: Attestation signed by Ousmane Darling PT at 12/28/2023 5:34 PM I reviewed and agree with the documentation corresponding to this therapy visit. SIGNATURE: Ousmane Darling, PT DATE: December 28, 2023 TIME: 5:34 PM Physical Therapy Treatment Summary SERVICE DATE: 12/28/2023 SERVICE TIME: 1535 to 1606 ROOM: [id number] PT 6 Clicks Score: 15 Total Joint [...] HOME LIVING Patient Lives With: Facility Care ([facility] memory care unit) Assistance Available: [...] Difficulty walking-musculoskelet al TREATMENT INTERVENTIONS Therapeutic Activity (53698), Gait Training (50227) Timed Code Treatment (minutes): 31 Skilled Treatment [...] SIGNATURE: Brinda Phillips, (more content not included)... [facility] 12-27-2023 [facility] HNO ID: [id number] Author: SHERICE HAYES RT(R) Service: ? Author [...] PATIENT PRESENTS WITH AN IMPLANTABLE OR ATTACHED ELECTRICAL DESIGNER DRAFTER: No RADIOLOGY DEPARTMENT: Ultrasound PERIPHERAL IV DATA: Not applicable SIGNED BY: RT Carla(R) December 26, 2023 11:[address] [facility] Bacteria Ur Culton Bacteria identified Cx Nom (U) ORGANISM ID: 1 10,000 -<50,000 CFU/ml Streptococcus anginosus No susceptibility testing done. [facility] Comment on above: Performed By: #### 6 30-4 ####[facility] LABCLIA [id number] [facility] [id number] [address] [place] Basic metabolic 2000 panelon 12-27-2023 Anion gap [Moles/Vol] 12 mmol/L Normal 9-18 [facility] Comment on above: Order Comment: Speci men Type: BLOOD SPECIMENOrdering Facility: [facility] Address: [address] [place] [address] Performed By: #### 2 4321-2 ####VALDOSTA LABORATORYCLIA [id number] [place] [address] [place] Calcium [Mass/Vol] 9.2 mg/dL Normal 8.5-10.2 [facility] Comment on above: Order Comment: Speci men Type: BLOOD SPECIMENOrdering Facility: [facility] Address: [address] [place] [address] Performed By: #### 2 4321-2 ####VALDOSTA LABORATORYCLIA [id number] [place] [address] [place] Chloride [Moles/Vol] 102 mmol/L Normal 97-105 [facility] Comment on above: Order Comment: Speci men Type: BLOOD SPECIMENOrdering Facility: [facility] Address: [address] [place] [address] Performed By: #### 2 4321-2 ####MORALES LABORATORYCLIA [id number] [place] [id number] [place] CO2 [Moles/Vol] 24 mmol/L Normal 22-30 [facility] Comment on above: Order Comment: Speci men Type: BLOOD SPECIMENOrdering Facility: [facility] Address: [address] [place] [address] Performed By: #### 2 4321-2 ####MORALES LABORATORYCLIA [id number] [address] [place] Creatinine [Mass/Vol] 0.69 mg/dL Normal 0.58-0.96 [facility] Comment on above: Order Comment: Lului men Type: BLOOD SPECIMENOrdering Facility: [facility] Address: [address] [place] [address] Performed By: #### 2 4321-2 ####MORALES LABORATORYCLIA [id number] [address] Creatinine and Glomerular filtration rate.predicted panel (S/P/Bld) 87 mL/min/1.73m??? Normal >=60 [facility] Comment on above: Order Comment: Krsitin men Type: BLOOD SPECIMENOrdering Facility: [facility] Address: [address] [place] [address] Result Comment: Felicia mated Glomerular Filtration Rate [...] Performed By: #### 2 4321-2 ####MORALES LABORATORYCLIA [id number] [place] [id number] [place] Glucose [Mass/Vol] 131 mg/dL High 74-99 [facility] Comment on above: Order Comment: Lului men Type: BLOOD SPECIMENOrdering Facility: [facility] Address: [address] [place] [address] Result Comment: The [place] Diabetes Association (ADA) provides guidance for cutoff [...] Standards of Medical Care in Diabetes 2016, [place] [employer] Association. Diabetes Care. 2016.39(Suppl 1). Performed By: #### 2 4321-2 ####MORALES LABORATORYCLIA [id number] [place] [address] [place] Potassium [Moles/Vol] 3.6 mmol/L Low 3.7-5.1 [facility] Comment on above: Order Comment: Speci men Type: BLOOD SPECIMENOrdering Facility: [facility] Address: [address] [place] [address] Performed By: #### 2 4321-2 ####MORALES LABORATORYCLIA [id number] [address] STATES [facility] Sodium [Moles/Vol] 138 mmol/L Normal 136-144 [facility] Comment on above: Order Comment: Lului men Type: BLOOD SPECIMENOrdering Facility: [facility] Address: [address] [place] [address] Performed By: #### 2 4321-2 ####MORALES LABORATORYCLIA [id number] [address] STATES [facility] Urea nitrogen [Mass/Vol] 18 mg/dL Normal 7-21 [facility] Comment on above: Order Comment: Lului men Type: BLOOD SPECIMENOrdering Facility: [facility] Address: [address] [place] [address] Performed By: #### 2 4321-2 ####MORALES LABORATORYCLIA [id number] [address] STATES OF [facility] CASE MANAGEMon 12-27-2023 CASE MANAGEM HNO ID: [id number] Author: ASTRID MUNSON RN Service: ? Author Type: Registered Nurse Type: Care Mgt Progress Note Filed: 12/27/2023 14:54 Note Text: CARE MANAGEMENT PROGRESS NOTE SERVICE DATE: 12/27/2023 SERVICE TIME: 11:09 AM LOS: 0 days Needs Prior to Discharge: Accepting Facility;Facility or Agency Choices;Precertificat ion;OT/PT Evaluation [place] of Choice Given: Yes Level of Care Discussed: Alf Facility Financial Disclosure Provided: Yes Provider List: Alf Facility Provider list within the patient's requested geographic area shared with the patient/family: Yes within: 25 miles of zip code: [address] Quality and resource use metrics shared with [...] Received an Email from the patients daughter Christso that she would like the patient to go to [facility]. Call placed to Morgan,he agreed with referral. Referral placed to [facility]. 2:52 pm- [facility] is unable to accept. Updated Morgan, he stated his sister Christos has the list and she will be making the SNF choices; but their dad will have the final say. Morgan stated he will update Christos and have her contact CM with her SNF choices. SIGNATURE: Astrid Munson RN PATIENT NAME: Ann Marie Hill DATE: December 27, 2023 TIME: 11:09 AM PAGER/CONTACT #: [phone] Normal [facility] CBC panel Auto (Bld)on 12-26 Erythrocyte distribution width (RBC) [Ratio] 13.6 % Normal 11.5-15.0 [facility] Comment on above: Order Comment: Speci men Type: BLOOD SPECIMENOrdering Facility: [facility] Address: [address] [place] [address] [place] [address] Performed By: #### 5 8410-2 ####MORALES LABORATORYCLIA [id number] [address] Hematocrit (Bld) [Volume fraction] 40.0 % Normal 36.0-46.0 [facility] Comment on above: Order Comment: Speci men Type: BLOOD SPECIMENOrdering Facility: [facility] Address: [address] [place] [address] Performed By: #### 5 8410-2 ####MORALES LABORATORYCLIA [id number] [address] Hemoglobin (Bld) [Mass/Vol] 13.4 g/dL Normal 11.5-15.5 [facility] Comment on above: Order Comment: Speci men Type: BLOOD SPECIMENOrdering Facility: [facility] Address: [address] [place] [address] Performed By: #### 5 8410-2 ####MORALES LABORATORYCLIA [id number] [address] MCH (RBC) [Entitic mass] 31.8 pg Normal 26.0-34.0 [facility] Comment on above: Order Comment: Speci men Type: BLOOD SPECIMENOrdering Facility: [facility] Address: [address] [place] [address] Performed By: #### 5 8410-2 ####MORALES LABORATORYCLIA [id number] [address] MCHC (RBC) [Mass/Vol] 33.5 g/dL Normal 30.5-36.0 [facility] Comment on above: Order Comment: Speci men Type: BLOOD SPECIMENOrdering Facility: [facility] Address: [address] [place] [address] Performed By: #### 5 8410-2 ####MORALES LABORATORYCLIA [id number] [address] MCV (RBC) [Entitic vol] 94.8 fL Normal 80.0-100.0 [facility] Comment on above: Order Comment: Speci men Type: BLOOD SPECIMENOrdering Facility: [facility] Address: [address] [place] [address] Performed By: #### 5 8410-2 ####MORALES LABORATORYCLIA [id number] [place] [address] [place] Nucleated RBC (Bld) [#/Vol] 10*3/uL Normal <0.01 [facility] Comment on above: Order Comment: Speci men Type: BLOOD SPECIMENOrdering Facility: [facility] Address: [address] [place] [address] Performed By: #### 5 8410-2 ####MORALES LABORATORYCLIA [id number] [place] [address] [place] Platelet mean volume (Bld) [Entitic vol] 9.0 fL Normal 9.0-12.7 [facility] Comment on above: Order Comment: Speci men Type: BLOOD SPECIMENOrdering Facility: [facility] Address: [address] [place] [address] Performed By: #### 5 8410-2 ####MORALES LABORATORYCLIA [id number] [place] [address] [place] Platelets (Bld) [#/Vol] 288 10*3/uL Normal 150-400 [facility] Comment on above: Order Comment: Speci men Type: BLOOD SPECIMENOrdering Facility: [facility] Address: [address] [place] [address] Performed By: #### 5 8410-2 ####MORALES LABORATORYCLIA [id number] [place] [address] [place] RBC (Bld) [#/Vol] 4.22 10*6/uL Normal 3.90-5.20 [facility] Comment on above: Order Comment: Speci men Type: BLOOD SPECIMENOrdering Facility: [facility] Address: [address] [place] [address] Performed By: #### 5 8410-2 ####MORALES LABORATORYCLIA [id number] [place] [address] [place] WBC (Bld) [#/Vol] 9.91 10*3/uL Normal 3.70-11.00 [facility] Comment on above: Order Comment: Speci men Type: BLOOD SPECIMENOrdering Facility: [facility] Address: [address], [place] [address] Performed By: #### 5 8410-2 ####MORALES LABORATORYCLIA [id number] [place] [address] [place] CONSULTon 12-27-2023 CONSULT HNO ID: [id number] Author: LUDY MCKINNEY MD Service: Orthopaedic Surgery [...] 10-14 days for recheck as OP. Call [phone] [facility] CONSULT PROGon 12-27-2023 CONSULT PROG HNO ID: [id number] Author: ARAMIS NASCIMENTO MD Service: Gynecology Author [...] with them based on notes form [facility] MOTION PICTURE EQUIPMENT MACHINIST, without pessary they may be dealing with [...] DNR if opting for a surgical procedure. MOTION PICTURE EQUIPMENT MACHINIST will follow peripherally while in house for now. Thank you for allowing me to be involved in the car of the sweet patient. POC discussed with pt/family (sone AND daughter in room), [place] [id number] I spent a total of 35 minutes on the date of the service which included preparing to see the patient, [id number] patient care, completing clinical documentation, performing a medically appropriate examination, counseling and educating the patient/family/caregi karin, and independently interpreting results (not separately reported). [facility] THERAPY NTon 12-27-2023 THERAPY NT HNO ID: [id number] Author: DANITA CARTER OT/Jojo Service: Occupational Therapy Author Type: Occupational Therapist Type: Therapy (PT/OT/Speech/Resp) Filed: 12/27/2023 15:30 Note Text: Summary: OT Evaluation Occupational Therapy Evaluation Summary SERVICE DATE: 12/27/2023 SERVICE TIME: 1420 to 1458 ROOM: [id number] OT 6 Clicks Score: 15 DISCHARGE RECOMMENDATIONS [...] HOME LIVING Patient Lives With: Facility Care ([facility] memory care unit) Assistance Available: [...] Follow Commands: Minimum Memory Deficits: Short Term, Napping Machine Operator, Recall of Recent Events, Recall of Precautions Executive Function Deficits: Insight to Deficits THERAPY DIAGNOSIS Reduced mobility-other, Decreased activities of daily living (ADL) TREATMENT INTERVENTIONS Evaluation, Self Prison Management (38790) Timed Code Treatment (minutes): 23 Skilled Treatment Time (minutes): 38 TRAINING AND EDUCATION PROVIDED Bed Mobility, Benefits of In-Hospital Mobility, Cognitive Skills, Discharge Planning, Edema Management, Functional Mobility Involving ADLs, Insight into Deficits, Grooming Tasks, Orientation, Positioning, Precautions/Restricti ons, Role of Occupational Therapy, Safety/Judgment, Sitting Balance to Improve [place] with ADLs/Self-Care, Standing Balance to Improve [place] with ADLs/Self-Care, Transfer - Sit to Stand, [...] overall, especial (more content not included)... Normal [facility] THERAPY NT HNO ID: [id number] Author: ELLEN BRYANT, PT, DPT Service: Physical Therapy Author Type: Physical Therapist Type: Therapy (PT/OT/Speech/Resp) Filed: 12/27/2023 11:23 Note Text: Summary: PT evaluation Physical Therapy Evaluation Summary SERVICE DATE: 12/27/2023 SERVICE TIME: 1024 to 1058 ROOM: [id number]-4K-2558-1 PT 6 Clicks Score: 12 DISCHARGE RECOMMENDATIONS [...] replacement and is in a hospital in [facility] and they are looking to be [...] walking-musculoskelet al TREATMENT INTERVENTIONS Evaluation, Therapeutic Activity (23245) Timed Code Treatment (minutes): 19 Skilled Treatment [...] Sit to/from Stand (more content not included)... Normal [facility] FEMALE PELV TRANSABD COMP LETEon 12-27-2023 [...] of free fluid or pathologic adnexal mass Weekend Receptionist: JEANETTE Transcribe Date/Time: Dec 27 2023 7:52A Dictated by : MYKEL LEDBETTER MD This examination was interpreted and the report reviewed and electronically signed by: MYKEL LEDBETTER MD on Dec 27 2023 7:55AM EST [id number] [facility] CASE MGT INIT Luis 2023 CASE MGT INIT [facility] HNO ID: [id number] Author: ASTRID MUNSON RN Service: ? Author Type: Registered Nurse Type: Care Mgt Initial Assessment Filed: 12/26/2023 11:11 Note Text: CARE MANAGEMENT: ASSESSMENT AND DISCHARGE PLAN SERVICE DATE: December 26, 2023 SERVICE TIME: 11:07 AM PCP: Festus Grimes MD Primary Contact: Extended Emergency Contact Information Primary Emergency Contact: Orestes Hill [place] Mobile Relation: Spouse Secondary Emergency Contact: Carlos [place] Mobile Relation: Son Admission Status: Observation Insurance Provider: T MEDICARE PPO Discharge Planning requested by: Per Department Practice Potential Transition Plans To Be Determined Advance Directives Current Advance Directive: Health Care Power of Insulation Worker Apprentice In Chart: Yes Up To Date and Valid: Yes Current Living Arrangements and Support Lives with: Alone Type of Residence: Assisted Living Facility Care Facility [facility]: [facility] Support: Children, Spouse/significant other How do you manage to accomplish the following: Independent: Ambulation;Going to the bathroom Needs Assistance: Bathe/Shower;Dress Dependent: Meals/Meal Prep;Medication Management;Transporta tion to appointments/communit y Current Services/Equipment Current Post-Acute Service(s): None Discharge Planning Patient Goal(s): Less pain [place] of Choice Explained: [place] of Choice Given: No Reason Not Given: [...] Dementia. Orestes states the patient is from [facility], States she ambulates independent without any devices. [facility] takes care of all her medications. Orestes stated he is currently rehabbing in a facility in [place]. Orestes states he is the POA, but we can speak with his son Morgan if needed. Ortho consult pending. PT/OT- Pending. CM department will continue to follow for DC needs. SIGNATURE: Astrid Munson RN PATIENT NAME: Ann Marie Hill DATE: December 26, 2023 TIME: 11:07 AM CONTACT #: [phone] [facility] 12-26-2023 [facility] CONSULTon 12-26-2023 CONSULT HNO ID: [id number] Author: ARAMIS NASCIMENTO MD Service: Gynecology Author [...] breech) admitted for arm fracture (fell at memory care facility). Patient herself denies vaginal discharge, [...] in b (more content not included)... Normal [facility] HISTORY PHYSICALon 4 HISTORY PHYSICAL HNO ID: [id number] Author: ARVIN GOINS MD Service: Hospital Medicine [...] day., Disp: , Rfl: PhytoMulti 60s capsules (Molecule Software), Take 2 capsules daily, with meals., Disp: , Rfl: Glycine (Pure Encapsulations), Take 1 capsule 3 times daily in divided doses between meals. (1 qiqlnki=868uj), Disp: , Rfl: B-Complex Plus (Pure Encapsulations), Take 1 capsule by mouth daily with food., Disp: , Rfl: Glutathione (SurDoc), Use 20 pumps daily (1000mg) divided doses [...] OmegaGenics EPA-DHA 2400 (High Concentrate EPA/DHA liquid) (Molecule Software), Take one teaspoon (5 ml) 1 times daily with food, Disp: , Rfl: UT Synergy (IceMos [employer]) antibacterial, Take 1 capsule by mouth twice daily., Disp: , Rfl: 0 Neuromag ( [employer] ) 90 ct, Take 3 capsules per [...] kg/m?. Physical Exam Exam conducted with a computer bookkeeper present. Cardiovascular: Rate and Rhythm: Normal rate. Pulmonary: Effort: Pulmonary effort is normal. Genitourinary: Comments: Vaginal pessary in place Musculoskeletal: General: No swelling. Comments: LUE in sling Neurological: Mental Status: She is disoriented. DATA: Cat 1: BMP CBC urinalysis reviewed Cat2: Shoulder Xray reviewed: comminuted fracture see Assessment: Ms. iHll, your 83 years have been affected by [...] MD DATE: 12/25/2023 TIME: 11:54 PM Normal [facility] NURSING PROGon 12-26-2023 NURSING PROG HNO ID: [id number] Author: DAVIS HIDALGO RN Service: Nursing Author Type: Registered Nurse Type: Nursing Progress Note Filed: 12/26/2023 15:13 Note Text: Nursing Progress Note Vital Supervisor Cloth Winding Assessment Note Patient Name: Ann Marie Hill Patient Location: [place] [address] [id number] Patient Vitals for the past 4 [...] given scheduled tylenol for pain. virtual patient bulk sealer order placed. NOM notified, pt to have sitter HS for sundowning most likely. Pt begins to sundown at 1500 per daughter at bedside. This note was completed by: Davis Hidalgo RN [facility] THERAPY NTon 12-26-2023 THERAPY NT HNO ID: [id number] Author: DANITA CARTER OT/Jojo Service: Occupational Therapy Author Type: Occupational Therapist Type: Therapy (PT/OT/Speech/Resp) Filed: 12/26/2023 09:36 Note Text: Summary: OT Missed Visit OCCUPATIONAL THERAPY MISSED VISIT SERVICE DATE: 12/26/2023 SERVICE TIME: 934 ROOM: [id number] Patient not seen due to Incomplete Orders. Awaiting ortho consult, will reattempt once completed and orders updated. SIGNATURE: Danita Carter OT/Jojo PATIENT NAME: Ann Marie Hill DATE: December 26, 2023 TIME: 9:[address] [facility] THERAPY NT HNO ID: [id number] Author: OUSMANE DARLING PT Service: Physical Therapy Author Type: Physical Therapist Type: Therapy (PT/OT/Speech/Resp) Filed: 12/26/2023 08:54 Note Text: Summary: missed visit PHYSICAL THERAPY MISSED VISIT SERVICE DATE: 12/26/2023 SERVICE TIME: 0852 ROOM: [id number] Patient not seen due to Incomplete Orders. Awaiting ortho consult, will reattempt once completed and orders updated. SIGNATURE: Ousmane Darling, PT PATIENT NAME: Ann Marie Hill DATE: December 26, 2023 TIME: 8:53 AM Normal [facility] ALLIED HEALTHon 12-25-2023 ALLIED HEALTH Normal [facility] CBC W Auto Differential pane l (Bld)on 12-25-2023 Basophils (Bld) [#/Vol] 10*3/uL Normal <0.11 [facility] Comment on above: Order Comment: Speci men Type: BLOOD SPECIMENOrdering Facility: [facility] Address: [address] [place] [address] Performed By: #### 5 7021-8 ####[facility] LABCLIA [id number] [place] [address] [place] [facility] Basophils/100 WBC (Bld) 0.1 % Normal [facility] Comment on above: Order Comment: Speci men Type: BLOOD SPECIMENOrdering Facility: [facility] Address: [address] [place] [address] Performed By: #### 5 7021-8 ####[facility] LABCLIA [id number] [place] [address] [facility] Differential cell count method Nom (Bld) Auto Normal [facility] Comment on above: Order Comment: Speci men Type: BLOOD SPECIMENOrdering Facility: [facility] Address: [address] [place] [address] Performed By: #### 5 7021-8 ####[facility] LABCLIA [id number] [place] [address] [facility] Eosinophils (Bld) [#/Vol] 0.03 10*3/uL Normal <0.46 [facility] Comment on above: Order Comment: Speci men Type: BLOOD SPECIMENOrdering Facility: [facility] Address: [address] [place] [address] Performed By: #### 5 7021-8 ####[facility] LABCLIA [id number] [place] [address] [facility] Eosinophils/100 WBC (Bld) 0.3 % Normal [facility] Comment on above: Order Comment: Speci men Type: BLOOD SPECIMENOrdering Facility: [facility] Address: [address] [place] [address] Performed By: #### 5 7021-8 ####[facility] LABCLIA [id number] [place] [address] [facility] Erythrocyte distribution width (RBC) [Ratio] 13.5 % Normal 11.5-15.0 [facility] Comment on above: Order Comment: Speci men Type: BLOOD SPECIMENOrdering Facility: [facility] Address: [address] [place] [address] Performed By: #### 5 7021-8 ####[facility] LABCLIA [id number] [place] [address] [place] Hematocrit (Bld) [Volume fraction] 41.0 % Normal 36.0-46.0 [facility] Comment on above: Order Comment: Speci men Type: BLOOD SPECIMENOrdering Facility: [facility] Address: [facility] [place] [address] Performed By: #### 5 7021-8 ####[facility] LABCLIA [id number] [place] [address] [place] Hemoglobin (Bld) [Mass/Vol] 13.7 g/dL Normal 11.5-15.5 [facility] Comment on above: Order Comment: Speci men Type: BLOOD SPECIMENOrdering Facility: [facility] Address: [address] [place] [address] Performed By: #### 5 7021-8 ####[facility] LABCLIA [id number] [place] [address] [place] Immature granulocytes (Bld) [#/Vol] 10*3/uL Normal <0.10 [facility] Comment on above: Order Comment: Speci men Type: BLOOD SPECIMENOrdering Facility: [facility] Address: [address] [place] [address] Performed By: #### 5 7021-8 ####[facility] LABCLIA [id number] [place] [address] [place] Immature granulocytes/100 WBC (Bld) 0.2 % Normal [facility] Comment on above: Order Comment: Speci men Type: BLOOD SPECIMENOrdering Facility: [facility] Address: [facility] [place] [address] Performed By: #### 5 7021-8 ####[facility] LABCLIA [id number] [place] [address] [place] Lymphocytes (Bld) [#/Vol] 1.85 10*3/uL Normal 1.00-4.00 [facility] Comment on above: Order Comment: Speci men Type: BLOOD SPECIMENOrdering Facility: [facility] Address: [address] [place] [address] Performed By: #### 5 7021-8 ####[facility] LAB[facility] [id number] [place] [address] [place] [facility] Lymphocytes/100 WBC (Bld) 15.8 % Normal [facility] Comment on above: Order Comment: Speci men Type: BLOOD SPECIMENOrdering Facility: [facility] Address: [address] [place] [address] Performed By: #### 5 7021-8 ####[facility] LABCLIA [id number] [place] [address] [place] MCH (RBC) [Entitic mass] 32.2 pg Normal 26.0-34.0 [facility] Comment on above: Order Comment: Speci men Type: BLOOD SPECIMENOrdering Facility: [facility] Address: [address] [place] [address] Performed By: #### 5 7021-8 ####[facility] LABCLIA [id number] [place] [id number] [place] MCHC (RBC) [Mass/Vol] 33.4 g/dL Normal 30.5-36.0 [facility] Comment on above: Order Comment: Speci men Type: BLOOD SPECIMENOrdering Facility: [facility] Address: [address] [place] [address] Performed By: #### 5 7021-8 ####[facility] LABCLIA [id number] [place] [address] [place] MCV (RBC) [Entitic vol] 96.5 fL Normal 80.0-100.0 [facility] Comment on above: Order Comment: Speci men Type: BLOOD SPECIMENOrdering Facility: [facility] Address: [address] [place] [address] Performed By: #### 5 7021-8 ####[facility] LABCLIA [id number] [place] [address] [place] Monocytes (Bld) [#/Vol] 0.58 10*3/uL Normal <0.87 [facility] Comment on above: Order Comment: Speci men Type: BLOOD SPECIMENOrdering Facility: [facility] Address: [address] [place] [address] Performed By: #### 5 7021-8 ####[facility] LABCLIA [id number] [place] [address] [place] Monocytes/100 WBC (Bld) 5.0 % Normal [facility] Comment on above: Order Comment: Speci men Type: BLOOD SPECIMENOrdering Facility: [facility] Address: [facility] [place] [address] Performed By: #### 5 7021-8 ####[facility] LABCLIA [id number] [place] [address] [place] Neutrophils (Bld) [#/Vol] 9.22 10*3/uL High 1.45-7.50 [facility] Comment on above: Order Comment: Speci men Type: BLOOD SPECIMENOrdering Facility: [facility] Address: [address] [place] [address] Performed By: #### 5 7021-8 ####[facility] LABCLIA [id number] [place] [address] [place] Neutrophils/100 WBC (Bld) 78.6 % Normal [facility] Comment on above: Order Comment: Speci men Type: BLOOD SPECIMENOrdering Facility: [facility] Address: [address] [place] [address] Performed By: #### 5 7021-8 ####[facility] LABCLIA [id number] [place] [address] [place] Nucleated RBC (Bld) [#/Vol] Normal [facility] Comment on above: Order Comment: Speci men Type: BLOOD SPECIMENOrdering Facility: [facility] Address: [address] [place] [address] Performed By: #### 5 7021-8 ####[facility] LABCLIA [id number] [place] [address] [place] Nucleated RBC/100 WBC (Bld) [Ratio] Normal [facility] Comment on above: Order Comment: Speci men Type: BLOOD SPECIMENOrdering Facility: [facility] Address: [address] [place] [address] Performed By: #### 5 7021-8 ####[facility] LABCLIA [id number] [place] [address] [place] Platelet mean volume (Bld) [Entitic vol] 8.7 fL Low 9.0-12.7 [facility] Comment on above: Order Comment: Speci men Type: BLOOD SPECIMENOrdering Facility: [facility] Address: [address] [place] [address] Performed By: #### 5 7021-8 ####[facility] LABCLIA [id number] [place] [address] [place] Platelets (Bld) [#/Vol] 285 10*3/uL Normal 150-400 [facility] Comment on above: Order Comment: Speci men Type: BLOOD SPECIMENOrdering Facility: [facility] Address: [address] [place] [address] Performed By: #### 5 7021-8 ####[facility] LABCLIA [id number] [place] [address] [place] RBC (Bld) [#/Vol] 4.25 10*6/uL Normal 3.90-5.20 [facility] Comment on above: Order Comment: Speci men Type: BLOOD SPECIMENOrdering Facility: [facility] Address: [address] [place] [address] Performed By: #### 5 7021-8 ####[facility] LABCLIA [id number] [place] [address] [place] WBC (Bld) [#/Vol] 11.71 10*3/uL High 3.70-11.00 [facility] Comment on above: Order Comment: Speci men Type: BLOOD SPECIMENOrdering Facility: [facility] Address: [address] [place], [place] [address] Performed By: #### 5 7021-8 ####[facility] LABCLIA [id number] [place] [id number] [place] CK SerPl-cCncon 12-25-2023 CK [Catalytic activity/Vol] 91 U/L Normal 42-196 [facility] Comment on above: Order Comment: Speci men Type: BLOOD SPECIMENOrdering Facility: [facility] Address: [address] [place], [place] [address] Performed By: #### 2 157-6, 3040-3, 90256-4 ####[facility] LABCLIA [id number] [place] [id number] [facility] CNPNon 12-25-2023 CNPN Telephone (DILEEP) ANN MARIE HILL ([id number]) 1940 F Date Time Provider Department 12/25/23 ARVIN GOINS During your visit today, we recorded the following information about you: Arvin Goins MD 12/25/2023 9:53 PM Signed RQB. Patient coming to [facility] after fall with humerus fracture. Will pursue symptom control and placement. Dr. Mckinney made aware at 9:45 pm over phone with Dr. Goins Allergies As of Date: 12/25/2023 Noted Allergy Reaction YULI INHIBITORS 12/25/2023 16 - Unknown CIPROFLOXACIN 06/13/2019 16 - Unknown PENICILLINS 09/03/2013 4 - Hives SULFA (SULFONAMIDE ANTIBIOTICS) 06/13/2019 2 - Rash Date Reviewed: 12/25/2023 Reviewed by: Malena Sherman, JADA - Fully Assessed Reason for Visit: Hospital To Hospital [[id number]] Prescriptions as of 12/25/2023 - Chlorella (Biotics) Take three capsules each day. - PhytoMulti 60s capsules (Metagenics) Take 2 capsules daily, with meals. - Glycine (Pure Encapsulations) Take 1 capsule 3 times daily in divided doses between meals. (1 [id number]) - B-Complex Plus (Pure Encapsulations) Take 1 capsule by mouth daily with food. - Glutathione (SurDoc) Use 20 pumps daily (1000mg) divided doses through out the day. (2 pumps = 100 mg Glutathione) - desvenlafaxine ER (PRISTIQ) 50 mg 24 hr tablet Take 50 mg by mouth once daily. - vitamin E, dl,tocopheryl acet, (VITAMIN E, DL, ACETATE, ORAL) Take 1,000 Units by mouth once daily. - OmegaGenics EPA-DHA 2400 (High Concentrate EPA/DHA liquid) (Molecule Software) Take one teaspoon (5 ml) 1 times daily with food - UT Synergy (IceMos Technology) antibacterial Take 1 capsule by mouth twice daily. - Neuromag ( IceMos Technology ) 90 ct Take 3 capsules per [...] Encounter Status:Closed by ARVIN GOINS on 12/25/23 [facility] CT ABD/PEL W IVCONon 024 CT ABD/PEL W IVCON Invalid Interpretation Code [facility] CT BRAIN WO IVCONon 12-25-[address] BRAIN WO IVCON Normal [facility] CT CERVICAL SPINE WO IVCONon 12-25-2023 CT CERVICAL SPINE WO IVCON Normal [facility] CT CHEST W IVCONon CT CHEST W IVCON Invalid Interpretation Code [facility] CT LUMBAR SPINE W RECON DATA -NBon 12-25-2023 CT LUMBAR SPINE W RECON DATA -NB Invalid Interpretation Code [facility] CT T-SPINE W RECON DATA -NBo n 12-25-2023 CT T-SPINE W RECON DATA -NB Invalid Interpretation Code [facility] Comprehensive metabolic 2000 panelon 12-25-2023 Albumin [Mass/Vol] 4.5 g/dL Normal 3.9-4.9 [facility] Comment on above: Order Comment: Speci men Type: BLOOD SPECIMENOrdering Facility: [facility] Address: [address] [place] [address] Performed By: #### 2 157-6, 3040-3, 74240-2 ####[facility] LABCLIA [id number] [place] [address] [place] ALP [Catalytic activity/Vol] 81 U/L Normal 34-123 [facility] Comment on above: Order Comment: Speci men Type: BLOOD SPECIMENOrdering Facility: [facility] Address: [address] [place] [address] Performed By: #### 2 157-6, 3040-3, 05822-5 ####[facility] LABCLIA [id number] [place] [address] [place] ALT [Catalytic activity/Vol] 35 U/L Normal 7-38 [facility] Comment on above: Order Comment: Speci men Type: BLOOD SPECIMENOrdering Facility: [facility] Address: [address] [place] [address] Performed By: #### 2 157-6, 3040-3, 24553-8 ####[facility] LABCLIA [id number] [place] [address] [place] Anion gap [Moles/Vol] 11 mmol/L Normal 9-18 [facility] Comment on above: Order Comment: Speci men Type: BLOOD SPECIMENOrdering Facility: [facility] Address: [address] [place] [address] Performed By: #### 2 157-6, 3040-3, 61298-2 ####[facility] LABCLIA [id number] [place] [address] [place] AST [Catalytic activity/Vol] 27 U/L Normal 13-35 [facility] Comment on above: Order Comment: Speci men Type: BLOOD SPECIMENOrdering Facility: [facility] Address: [address] [place] [address] Performed By: #### 2 157-6, 3040-3, 73057-4 ####[facility] LABCLIA [id number] [place] [address] [place] Bilirubin [Mass/Vol] 0.4 mg/dL Normal 0.2-1.3 [facility] Comment on above: Order Comment: Speci men Type: BLOOD SPECIMENOrdering Facility: [facility] Address: [address] [place] [address] Result Comment: Use of this assay is not recommended for patients undergoing treatment with eltrombopag due to the potential for falsely elevated results. Performed By: #### 2 157-6, 3040-3, 59790-0 ####[facility] LABCLIA [id number] [place] [address] [place] Calcium [Mass/Vol] 9.8 mg/dL Normal 8.5-10.2 [facility] Comment on above: Order Comment: Speci men Type: BLOOD SPECIMENOrdering Facility: [facility] Address: [address] [place] [address] Performed By: #### 2 157-6, 3040-3, 79930-8 ####[facility] LABCLIA [id number] [place] [address] [place] Chloride [Moles/Vol] 104 mmol/L Normal 97-105 [facility] Comment on above: Order Comment: Speci men Type: BLOOD SPECIMENOrdering Facility: [facility] Address: [address] [place] [address] Performed By: #### 2 157-6, 3040-3, 08110-9 ####[facility] LABCLIA [id number] [place] [address] [place] CO2 [Moles/Vol] 24 mmol/L Normal 22-30 [facility] Comment on above: Order Comment: Speci men Type: BLOOD SPECIMENOrdering Facility: [facility] Address: [address] [place] [address] Performed By: #### 2 157-6, 3040-3, 06435-1 ####[facility] LABCLIA [id number] [place] [address] [facility] Creatinine [Mass/Vol] 0.98 mg/dL High 0.58-0.96 [facility] Comment on above: Order Comment: Speci men Type: BLOOD SPECIMENOrdering Facility: [facility] Address: [address] [place] [address] Result Comment: Use of this assay is not recommended for patients undergoing treatment with phenindione, due to the potential for falsely depressed results. Performed By: #### 2 157-6, 3040-3, 22803-9 ####[facility] LABCLIA [id number] [place] [address] [facility] Creatinine and Glomerular filtration rate.predicted panel (S/P/Bld) 58 mL/min/1.73m??? Low >=60 [facility] Comment on above: Order Comment: Speci men Type: BLOOD SPECIMENOrdering Facility: [facility] Address: [address] [place] [address] Result Comment: Felicia mated Glomerular Filtration Rate [...] GFR. Performed By: #### 2 157-6, 3040-3, 93977-5 ####[facility] LABCLIA [id number] [place] [address] [place] Glucose [Mass/Vol] 216 mg/dL High 74-99 [facility] Comment on above: Order Comment: Kristin paige Type: BLOOD SPECIMENOrdering Facility: [facility] Address: [address] [place], [place] [address] Result Comment: The [place] Diabetes Association (ADA) provides guidance for cutoff [...] Standards of Medical Care in Diabetes 2016, [place] [employer] Association. Diabetes Care. 2016.39(Suppl 1). Performed By: #### 2 157-6, 3040-3, 87437-7 ####[facility] LABCLIA [id number] [place] [address] [place] Potassium [Moles/Vol] 3.5 mmol/L Low 3.7-5.1 [facility] Comment on above: Order Comment: Kristin paige Type: BLOOD SPECIMENOrdering Facility: [facility] Address: [address] [place] [address] Performed By: #### 2 157-6, 3040-3, 48170-3 ####[facility] LABCLIA [id number] [place] [address] [place] Protein [Mass/Vol] 7.9 g/dL Normal 6.3-8.0 [facility] Comment on above: Order Comment: Speci men Type: BLOOD SPECIMENOrdering Facility: [facility] Address: [address] [place] [address] Performed By: #### 2 157-6, 3040-3, 78394-3 ####[facility] LABCLIA [id number] [place] [address] [place] Sodium [Moles/Vol] 139 mmol/L Normal 136-144 [facility] Comment on above: Order Comment: Speci men Type: BLOOD SPECIMENOrdering Facility: [facility] Address: [address] [place] [address] Performed By: #### 2 157-6, 3040-3, 01797-3 ####[facility] LABCLIA [id number] [place] [address] [place] Urea nitrogen [Mass/Vol] 29 mg/dL High 7-21 [facility] Comment on above: Order Comment: Speci men Type: BLOOD SPECIMENOrdering Facility: [facility] Address: [address] [place] [address] Performed By: #### 2 157-6, 3040-3, 56058-9 ####[facility] LABCLIA [id number] [place] [address] [facility] ED NOTEon 12-25-2023 ED NOTE Normal [facility] ED NOTE HNO ID: [id number] Author: CELINE MA, RN Service: Emergency Medicine Author Type: Registered Nurse Type: ED Notes Filed: 12/25/2023 22:00 Note Text: Nursing report called to [facility]. Normal [facility] ED NOTE Normal [facility] ED PROV NOTEon 12-25-2023 ED PROV NOTE Normal [facility] ED PROV NOTE Normal [facility] Lipase SerPl-cCncon 12-25-19 24 Lipase [Catalytic activity/Vol] 23 U/L Normal 16-61 [facility] Comment on above: Order Comment: Speci men Type: BLOOD SPECIMENOrdering Facility: [facility] Address: [address] [place] [address] Performed By: #### 2 157-6, 3040-3, 38102-4 ####[facility] LABCLIA [id number] [place] [address] [place] [facility] PT panel Coag (PPP)on 2023 INR Coag (PPP) [Relative time] 1.0 {INR} Normal 0.9-1.3 [facility] Comment on above: Order Comment: Speci men Type: BLOOD SPECIMENOrdering Facility: [facility] Address: [address] [place], [place] [address] Result Comment: Nicolette min K Antagonist (VKA) Therapeutic Range: INR 2 to 3 (Target INR of 2.5)Note: For patients treated with VKA drugs, such as warfarin, the [place] [employer] 2012 Guideline recommends [...] of 3).Jimy GH, et al. Chest 2012, 141:7S-47SNishdora RA, et al. [facility] 2017, 70: 252-289 Performed By: #### 1 4979-9, 93023-7 ####[facility] LABCLIA [id number] [place] [address] [place] [facility] PT Coag (PPP) [Time] 9.9 s Normal <13.1 [facility] Comment on above: Order Comment: Speci men Type: BLOOD SPECIMENOrdering Facility: [facility] Address: [address] [place] [address] Performed By: #### 1 4979-9, 08316-5 ####[facility] LABCLIA [id number] [place] [address] [place] Urinalysis complete panel (U )on 12-25-2023 Bacteria LM.HPF (Urine sed) [#/Area] Rare Abnormal None Seen [facility] Comment on above: Order Comment: Speci men Type: URINE SPECIMENOrdering Facility: [facility] Address: [address] [place] [address] Performed By: #### 2 4356-8 ####[facility] LABCLIA [id number] [place] [address] [facility] [id number] [place], [place] [id number] [place] [address] Bilirubin Ql (U) Negative Normal Negative [facility] Comment on above: Order Comment: Speci men Type: URINE SPECIMENOrdering Facility: [facility] Address: [address] [place] [address] Performed By: #### 2 4356-8 ####[facility] LABCLIA [id number] [place] [address] [facility] [id number] [place] [address] [facility] Clarity (Unsp spec) Slightly Cloudy Abnormal Clear [facility] Comment on above: Order Comment: Speci men Type: URINE SPECIMENOrdering Facility: [facility] Address: [address] [place] [address] Performed By: #### 2 4356-8 ####[facility] LABCLIA [id number] [place] [address] [facility]ORYCLIA [id number] [place], [place] [address] [place] [address] [place] Color (U) Straw Normal Yellow [facility] Comment on above: Order Comment: Speci men Type: URINE SPECIMENOrdering Facility: [facility] Address: [address] [place] [address] Performed By: #### 2 4356-8 ####[facility] [facility] LABCLIA [id number] [place] [address] [facility]ATORYCLIA [id number] [place], [place] [id number] [place] [address] Epithelial cells LM.HPF (Urine sed) [#/Area] Few Normal [facility] Comment on above: Order Comment: Speci men Type: URINE SPECIMENOrdering Facility: [facility] Address: [address] [place] [address] Performed By: #### 2 4356-8 ####[facility] LABCLIA [id number] [place] [address] [facility]ATORYCLIA [id number] [place] [address] [place] Glucose Test strip (U) [Mass/Vol] 2+ Abnormal Negative [facility] Comment on above: Order Comment: Speci men Type: URINE SPECIMENOrdering Facility: [facility] Address: [address] [place] [address] Performed By: #### 2 4356-8 ####[facility] LABCLIA [id number] [place] [address] [facility]ATORYCLIA [id number] [place] [address] [place] Hemoglobin Ql (U) 2+ Abnormal Negative [facility] Comment on above: Order Comment: Speci men Type: URINE SPECIMENOrdering Facility: [facility] Address: [address] [place] [address] Performed By: #### 2 4356-8 ####[facility] LABCLIA [id number] [place] [address] [facility]ORYCLIA [id number] [place] [address] [place] Ketones Ql (U) Negative Normal Negative [facility] Comment on above: Order Comment: Speci men Type: URINE SPECIMENOrdering Facility: [facility] Address: [address] [place] [address] Performed By: #### 2 4356-8 ####[facility]CLIA [id number] [place] [address] [facility]ORYCLIA [id number] [place] [address] [place] Leukocyte esterase Test strip Ql (U) 2+ Abnormal Negative [facility] Comment on above: Order Comment: Speci men Type: URINE SPECIMENOrdering Facility: [facility] Address: [address] [place] [address] Performed By: #### 2 4356-8 ####[facility]CLIA [id number] [place] [address] [facility]ORYCLIA [id number] [place], [place] [id number] [place] [address] STATES OF [facility] Nitrite Ql (U) Negative Normal Negative [facility] Comment on above: Order Comment: Speci men Type: URINE SPECIMENOrdering Facility: [facility] Address: [address] [place] [address] Performed By: #### 2 4356-8 ####[facility]CL[facility] [id number] [place] [address] [facility] LABORATORYCLIA [id number] [place] [address] [place] pH (U) 7.5 [pH] Normal 5.0-8.0 [facility] Comment on above: Order Comment: Speci men Type: URINE SPECIMENOrdering Facility: [facility] Address: [address] [place] [address] Performed By: #### 2 4356-8 ####[facility] LABCLIA [id number] [place] [address] [facility] LABORATORYCLIA [id number] [place] [address] [place] Protein (U) [Mass/Vol] Trace Abnormal Negative [facility] Comment on above: Order Comment: Speci men Type: URINE SPECIMENOrdering Facility: [facility] Address: [address] [place] [address] Performed By: #### 2 4356-8 ####[facility]CLIA [id number] [place] [address] [facility] LABORATORYCLIA [id number] [place] [address] [place] RBC LM.HPF (Urine sed) [#/Area] /[HPF] Abnormal 0-3 /HPF [facility] Comment on above: Order Comment: Speci men Type: URINE SPECIMENOrdering Facility: [facility] Address: [address] [place] [address] Performed By: #### 2 4356-8 ####[facility] LABCLIA [id number] [address] LABORATORYCLIA [id number] [place] [address] Specific gravity (U) [Rel density] 1.015 Normal 1.005-1.030 [facility] Comment on above: Order Comment: Speci men Type: URINE SPECIMENOrdering Facility: [facility] Address: [address] [place] [address] Performed By: #### 2 4356-8 ####[facility]CLIA [id number] [address] LABORATORYCLIA [id number] [place] [address] STATES [facility] Urobilinogen Ql (U) 0.2 EU/dL Normal 0.2-1.0 EU/dL [facility] Comment on above: Order Comment: Speci men Type: URINE SPECIMENOrdering Facility: [facility] Address: [address] [place] [address] Performed By: #### 2 4356-8 ####[facility]CLIA [id number] [address] LABORATORYCLIA [id number] [place] [address] STATES [facility] WBC LM.HPF (Urine sed) [#/Area] /[HPF] Abnormal 0-5 /HPF [facility] Comment on above: Order Comment: Speci men Type: URINE SPECIMENOrdering Facility: [facility] Address: [address] [place] [address] Performed By: #### 2 4356-8 ####[facility] LABCLIA [id number] [address] LABORATORYCLIA [id number] [place], [place] [address] [place] [address] [place] Urinalysis complete pnl Uron 12-25-2023 Urinalysis complete panel (U) Normal [facility] Comment on above: Order Comment: Speci men Type: URINE SPECIMENOrdering Facility: [facility] Address: [facility] [place] [id number] Performed By: #### 2 4356-8 ####[facility] LABCLIA [id number] [place] [address] [facility]ORYCLIA [id number] [address] OF [place] XR ELBOW 3V AP/LAT/OTHER LTo n 12-25-2023 XR ELBOW 3V AP/LAT/OTHER LT Normal [facility] XR HUMERUS 2V AP/LAT LTon XR HUMERUS 2V AP/LAT LT Normal [facility] XR KNEE 4V AP/LAT/OBLS LTon 12-25-2023 XR KNEE 4V AP/LAT/OBLS LT Normal [facility] XR KNEE 4V AP/LAT/OBLS RTon 12-25-2023 XR KNEE 4V AP/LAT/OBLS RT Normal [facility] XR SHLDR >/=3V AP/NICA AP/OTH R LTon 12-25-2023 XR SHLDR >/=3V AP/NICA AP/OTHR LT Normal [facility] aPTT PPPon 12-25-2023 aPTT Coag (PPP) [Time] 25.6 s Normal 23.0-32.4 [facility] Comment on above: Order Comment: Speci men Type: BLOOD SPECIMENOrdering Facility: [facility] Address: [facility] [place] [id number] Performed By: #### 1 4979-9, 33546-0 ####[facility] LABCLIA [id number] [place] [address] [place] US.doppler Carotid arteries - bilateralon 08-25-[address], [address] [place] [address] Vascular Lab Report [facility] US CAROTID ARTERY DUPLEX BILATERAL Patient Name: ANN MARIE HILL Kasie Physician: [id number] Miranda Tinoco MD, [facility] Study Date: 08/21/2023 Ordering Provider: [id number] MARY ANNE SNOW MRN/PID: [id number] Fellow: Technologist: Irasema Dooley RD, T Date of /Age: 2 1940 / years Technologist 2: Gender: F Admission Status: Outpatient Location Performed: [facility] Diagnosis/ICD: Occlusion 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; Essential primary hypertension-I10 Indication: Hyperlipidemia, Dizziness, Dementia CPT Codes: 69025 Cerebrovascular Carotid Duplex scan complete CONCLUSIONS: Right [...] cm/s Right Left ICA/CCA Ratio 1.1 0.6 37917 Miranda Tinoco MD, FACC Final Miranda Tran M D - 08/25/[address], [address], [place] [address] Vascular Lab Report [facility] US CAROTID ARTERY DUPLEX BILATERAL Patient Name: ANN MARIE HILL Kasie Physician: [id number] Miranda Tinoco MD, FACC Study Date: 08/21/2023 Ordering Provider: [id number] MARY ANNE SNOW MRN/PID: [id number] Fellow: Technologist: Irasema Dooley RD, T Date of /Age: 2 1940 / 82 years Technologist 2: Gender: F Admission Status: Outpatient Location Performed: [facility] Diagnosis/ICD: Occlusion 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; Essential primary hypertension-I10 Indication: Hyperlipidemia, Dizziness, Dementia CPT Codes: 49571 Cerebrovascular Carotid Duplex scan complete CONCLUSIONS: Right [...] cm/s Right Left ICA/CCA Ratio 1.1 0.6 27073 Miranda Tinoco MD, FACC Final [facility] Work Phone: US.doppler Carotid arteries - bilateralOrdered By: Miranda Tinoco on 08-25-2023 [facility] Work Phone: US.doppler Carotid arteries - bilateralon 08-21-2023 Radiology Study observation (narrative) [facility] Work Phone: C Urineon 07-21-2023 Bacteria [...] Locations R1: This test was performed at: [facility], [address] [place] [address], [address] , [place], [facility] Comment on above: Performed By: #### 2 [id number] #### [facility] [address] [place] [address] URINALYSISOrdered By: Robel Williamson on 07-19-2023 Bacteria [...] Interpretation Code Negative [facility] UA Auto SS [place].plasma/[place] .RBC (Bld) [Mass ratio] 0-3 /HPF Normal [...] [facility] UA Auto SS Urobilinogen Qn (U) 0.0519721 {Ham'U}/dL Normal 0.0 - 1.0 EU/dL [facility] [...] Ql (Urine sed) 3+ /HPF Abnormal Trace [facility] Comment on above: Performed By: #### 1 [id number] #### [facility] [address] [place] [address] Bilirubin Ql (U) Negative Normal Negative [facility] Comment on above: Performed By: #### 1 [id number] #### [facility] [address] [place] [address] Clarity (U) CLOUDY Abnormal Clear [facility] Comment on above: Performed By: #### 1 [id number] #### [facility] [address] [place] [address] Color (U) DARK YELLO Abnormal Yellow [facility] Comment on above: Performed By: #### 1 [id number] #### [facility] [address] [place] [address] Epithelial cells.squamous LM.HPF (Urine sed) [#/Area] 0-2 Normal 0-2 [facility] Comment on above: Performed By: #### 1 [id number] #### [facility] [address] [place] [address] Glucose Test strip (U) [Mass/Vol] Negative Normal Negative [facility] Comment on above: Performed By: #### 1 [id number] #### [facility] [address] [place] [address] Hemoglobin Ql (U) Negative Normal Negative [facility] Comment on above: Performed By: #### 1 3797555 #### [facility] [address] [place] [address] Ketones (U) [Mass/Vol] TRACE Abnormal Negative [facility] Comment on above: Performed By: #### 1 0765581 #### [facility] [address] [place] [address] [place].plasma/[place] .RBC (Bld) [Mass ratio] 0-3 Normal 0-3 [facility] Comment on above: Performed By: #### 1 [id number] #### [facility] [address] [place] [address] Nitrite Ql (U) Negative Normal Negative [facility] Comment on above: Performed By: #### 1 [id number] #### [facility] [address] [place] [address] pH (U) 5.5 [pH] Invalid Interpretation Code 5.0-9.0 [facility] Comment on above: Performed By: #### 1 [id number] #### [facility] [address] [place] [address] Protein (U) [Mass/Vol] 1+ Abnormal Negative [facility] Comment on above: Performed By: #### 1 [id number] #### [facility] [address] [place] [address] Specific gravity (U) [Rel density] 1.025 Invalid Interpretation Code 1.005-1.030 [facility] Comment on above: Performed By: #### 1 [id number] #### [facility] [address] [place] [address] Type of Urine collection method Clean Catch Normal [facility] Comment on above: Performed By: #### 1 [id number] #### [facility] [address] [place] [address] Urobilinogen Qn (U) 0.2 {Ham'U}/dL Normal 0.0-1.0 [facility] Comment on above: Performed By: #### 1 [id number] #### [facility] [address] [place] [address] WBC Auto Ql (U) 3+ Abnormal Negative [facility] Comment on above: Performed By: #### 1 [id number] #### [facility] [address] [place] [address] WBC casts LM.LPF (Urine sed) [#/Area] 0-3 Normal [facility] Comment on above: Performed By: #### 1 [id number] #### [facility] [address] [place] [address] WBC LM.HPF (Urine sed) [#/Area] /[HPF] Abnormal 0-5 [facility] Comment on above: Performed By: #### 1 [id number] #### [facility] [address] [place] [address] Office Visit (Cardiology)on 06-06-2023 Follow-up visit Diagnoses/Problems [...] Status:Hold For - Scheduling,Retrospect chema Authorization; Requested for:[id number]; Laterality : Bilateral Essential hypertension Renew: Carvedilol 12.5 MG Oral Tablet; TAKE 1 TABLET TWICE DAILY Overweight with body mass index (BMI) of 27 to 27.9 in adult Healthy Weight Tips; Status:Complete - Retrospective Authorization; Done: [id number] Some eating tips that can help you lose weight.; Status:Complete - Retrospective Authorization; Done: [id number] SocHx: Never a smoker Tobacco Use Screening; Status:Complete; Done: [id number] Patient Instructions Please bring all medicines, vitamins, [...] as needed Neuro Rudolph TABSTAKE DIRECTED. Pristiq [id number] daily Rosuvastatin Calcium 40 MG Oral TabletTAKE [...] no fr (more content not included)... Normal [facility] Tobacco Screening.on 023 Adult depression screening assessment No [facility] App in the Air 250 DO Work Phone: Fall risk assessment a) No falls within the last year [facility] gDecide 250 DO Work Phone: Tobacco use status CP b) No [facility] gDecide 250 DO Work Phone: CNOVon 05-19-2023 CNOV Office Visit (MEDN ) SERGIO,ANN MARIE A ([id number]) 1940 F Date Time Provider Department 05/19/23 3:30 PM [facility] During your visit today, we recorded [...] OmegaGenics EPA-DHA 2400 (High Concentrate EPA/DHA liquid) (Molecule Software) Take one teaspoon (5 ml) 1 times daily with food [employer] Synergy ([employer]) antibacterial Take 1 capsule by mouth twice daily. Brain Misael Capsules ([employer]Mos Technology) Take 2 tablets by mouth w MEALS. 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 [...] (more content not included)... Normal [facility] ED Note-Physicianon 05-15-20 ED Note-Physician [id number] 1.00CD:127 Normal [facility] Screenson 04-26-2023 Screens [id number] .00CD:127 Normal [facility] Ambulatory Visit Summaryon 0 04-25-2023 Ambulatory [...] mg/g Vag Crm) omega-3 polyunsaturated fatty acids (Flippin-3 350 mg oral capsule) ubiquinone (Co Q-10) [...] COOK PA-C, URL When: Where: [address] [place] [address] Medications What How Much When Instructions Unchanged [...] or concerns Unchanged omega-3 polyunsaturated fatty acids (Flippin-3 350 mg oral capsule) By Mouth Every [...] blockage i (more content not included)... Normal [facility] Patient Educationon 04-25-20 Patient Education Obstetrics [...] these instructions at home: Medicines ? Take cxvd-wai-uhxnwss and prescription medicines only as told by [...] provider. Document Revised: 05/07/2021 Document Reviewed: 05/07/2021 CombineNet Patient Education ? 2022 Deep-Secure. Normal [facility]rology Office/Clinic [...] 2+ leuks. Asymptomatic. No Tx. +C&S 02/27/23 [facility] *Tx'd w/5 day Macrobid therapy. Increased [...] provider and she was started on supplements. 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 and then we started back on the Clobetasol. She is currently using both creams as needed and husbands says it helps a lot. +C&S 02/27/23 [facility] *Tx'd w/5 day Macrobid therapy. Pt [...] Contact Information DANIEL [place], ELLEN Bell, URL [address] [place] [address] Additional Instructions: Patient Education Urinary Tract Infection, Adult, Sgcg-jn-Osti Documentation recorded by the scribchris Valdez accurately reflects the services(s) I performed and decisions made by me. Authenticated by Ellen Cook PA-C on 04/25/2023 12:54:27. IDi, personally scribed for Ellen Cook PA-C on [...] Tab, 10 mg= 1 tab(s), Oral, Daily Flippin-3 350 mg oral capsule, Oral, Daily Pristiq, [...] Status Comments (more content not included)... Normal [facility] Comment on above: Result Comment: Elec tronically Signed By: ELLEN COOK PA-C\.br\Date and Time Signed: 04/25/23 12:54 EDT\.br\Electronically Co-Signed By: Di Valdez\.br\Date and Time Co-Signed: 04/25/23 12:21 EDT Ambulatory Visit Summaryon 0 04-17-2023 Ambulatory Visit Summary ANN MARIE HILL :1940 Visit Date:04/17/2023 Ambulatory Visit Instructions Your Care Team Attending Physician - GENO WATTS, Kunal [place] Primary Care Physician - Savana Parter MD This Is Your Medications List amlodipine [...] mg/g Vag Crm) omega-3 polyunsaturated fatty acids (Flippin-3 350 mg oral capsule) ubiquinone (Co Q-10) valsartan (valsartan 80 mg Tab) vitamin E Procedures Performed Cystourethroscopy with dilation of urethral stricture (02/12/2019). What to do next Scheduled Follow-Up Appointments Monday 2:15 PM EDT With: GENO WATTS, Kunal [place] Where: [facility] Patient Educationon 08-08-20 22 Patient Education Obstetrics [...] this condition includes: ? Antibiotic medicine. ? Wlki-scc-vpxitfu medicines to treat discomfort. ? Drinking enough [...] these instructions at home: Medicines ? Take cwfo-dmn-gfupzvd and prescription medicines only as told by [...] This in (more content not included)... Normal [facility]rology Office/Clinic Noteon 08-08-2022 Urology Office/Clinic [...] months 04/08/2023 EDT [facility] [address], [place] [phone] Additional Instructions: Patient Education Urinary Tract Infection, [...] Tab, 10 mg= 1 tab(s), Oral, Daily Flippin-3 350 mg oral capsule, Oral, Daily Pristiq, [...] Immunizations Vaccine Date Status Comments SARS-CoV-2 mRNA (tolucrecianameran 5y-11y) vac - Not Given Postpone due to refusal influenza virus vaccine, inactivated - Not Given Patient Refuses Normal [facility] Comment on above: Result Comment: Elec tronically Signed By: Kunal LORA MD\.br\Date and Time Signed: 08/08/22 16:21 EDT\.br\Electronically Co-Signed By: Alisa Sharp MA.br\Date and Time Co-Signed: 08/08/22 16:17 EDT MG MAMM SCREEN JOSH W CADon 0 06-17-2022 MG MAMM SCREEN JOSH W CAD Patient: ANN MARIE HILL Exam Date: 06/17/2022 : 1940 Gender:F Ordering : DR SAVANA PRATER . Admission #: [id number] Family : Order #: [id number] CLICK HERE TO VIEW EXAM RADIOLOGY REPORT [...] Treatments None Family Cancers None LOCATION: [facility] BREAST COMPOSITION: Scattered areas fibroglandular density. [...] M.D. on 06/17/2022 at 15:47 Normal [facility] OCC BLD IMMUNOASSAYon 2021 OCCULT BLOOD Negative Normal NEGATIVE [facility] Comment on above: Performed By: #### O CHANDU #### [facility] [address] [place] [address] [address] Hu Carlos INSULINon 06-04-2022 Insulin 11.2 uIU/mL Normal 2.6-24.9 [facility] Comment on above: Performed By: #### I NSULIN ####[facility] [address] [place], [place] [address]ZbDr. Hu Carlos T4, T3U, FTI LABCORPon 06-04 Free Thyroxine Index 2.3 Normal 1.2-4.9 [facility] Comment on above: Performed By: #### T HYLC #### [facility] [address] [place], [place] [address] Dr. Hu Carlos T3 Uptake 26 % Normal 24-39 [facility] Comment on above: Performed By: #### T HYLC #### [facility] [address] [place] [address] [address] Hu Carlos T4 [Mass/Vol] 8.8 ug/dL Normal 4.5-12.0 [facility] Comment on above: Performed By: #### T HYLC #### [facility] [address] [place] [address] [address] Hu Carlos VIT D 25-[place] LABCORPon 2021 Vitamin D, 25-Hydroxy 60.5 ng/mL Normal 30.0-100.0 [facility] Comment on above: Result Comment: Nicolette min D deficiency has been defined by the [place] of Medicine and an Endocrine Society practice guideline as a level of serum 25-OH vitamin D less than 20 ng/mL (1,2). The Endocrine Society went on to further define vitamin D insufficiency as a level between 21 and 29 ng/mL (2). 1. IOM ([place] of Medicine). 2010. Dietary reference intakes for calcium and D. [place]: The National Academies Press. 2. Suzette MF, Julian [place], Fady CLEMONS, et al. Evaluation, treatment, and prevention of vitamin D deficiency: an Endocrine Society clinical practice guideline. JCEM. 2010; 96(7):1911-30. Performed By: #### V ITADLC ####[facility] [address] [place], [place] [address]QfDr. Hu Carlos CBC AUTO DIFFon 06-03-2022 BASO # 0.0 103/ul Normal 0.0-0.1 [facility] Comment on above: Performed By: #### C BC #### [facility] [address] [place] [address] Dr. Hu Carlos Basophils/100 WBC (Bld) 0.6 % Normal 0.2-2.0 [facility] Comment on above: Performed By: #### C BC #### [facility] [address] [place] [address] Dr. Hu Carlos EO # 0.2 103/ul Normal 0.0-0.7 [facility] Comment on above: Performed By: #### C BC #### [facility] [address] [place] [address] Dr. Hu Carlos Eosinophils/100 WBC (Bld) 3.2 % Normal 0.9-7.0 [facility] Comment on above: Performed By: #### C BC #### [facility] [address] [place] [address] Dr. Hu Carlos Erythrocyte distribution width (RBC) [Ratio] 12.6 % Normal 11.0-15.0 [facility] Comment on above: Performed By: #### C BC #### [facility] [address] [place] [address] Dr. Hu Carlos Hematocrit (Bld) [Volume fraction] 40.0 % Normal 36.0-48.0 [facility] Comment on above: Performed By: #### C BC #### [facility] [address] [place] [address] Dr. Hu Carlos Hemoglobin (Bld) [Mass/Vol] 12.8 g/dL Normal 12.0-16.0 [facility] Comment on above: Performed By: #### C BC #### [facility] [address] [place] [address] Dr. Hu Carlos IG # 0.01 10e3/ul Normal 0.00-0.03 [facility] Comment on above: Performed By: #### C BC #### [facility] [address] [place] [address] Dr. Hu Carlos IG % 0.2 % Normal 0.0-0.5 [facility] Comment on above: Performed By: #### C BC #### [facility] [address] [place] [address] Dr. Hu Carlos LYMPH # 1.2 103/ul Normal 1.2-3.8 [facility] Comment on above: Performed By: #### C BC #### [facility] [address] [place] [address] Dr. Hu Carlos Lymphocytes/100 WBC (Bld) 22.7 % Normal 20.5-60.0 [facility] Comment on above: Performed By: #### C BC #### [facility] [address] [place] [address] Dr. Hu Carlos MANUAL DIFF REQ NO Normal [facility] Comment on above: Performed By: #### C BC #### [facility] [address] [place] [address] Dr. Hu Carlos MCH (RBC) [Entitic mass] 31.8 pg Normal 26.7-34.0 [facility] Comment on above: Performed By: #### C BC #### [facility] [address] [place] [address] Dr. Hu Carlos MCHC (RBC) [Mass/Vol] 32.0 g/dL Normal 29.9-35.2 [facility] Comment on above: Performed By: #### C BC #### [facility] [address] [place] [address] Dr. Hu Carlos MCV (RBC) [Entitic vol] 99.3 fL Critically high 81.0-99.0 [facility] Comment on above: Performed By: #### C BC #### [facility] [address] [place] [address] Dr. Hu Carlos MONO # 0.5 103/ul Normal 0.3-0.8 [facility] Comment on above: Performed By: #### C BC #### [facility] [address] [place] [address] Dr. Hu Carlos Monocytes/100 WBC (Bld) 8.8 % Normal 1.7-12.0 [facility] Comment on above: Performed By: #### C BC #### [facility] [address] [place] [address] Dr. Hu Carlos NEUT # 3.4 103/ul Normal 1.4-6.5 [facility] Comment on above: Performed By: #### C BC #### [facility] [address] [address] [address] Hu Carlos Neutrophils/100 WBC (Bld) 64.5 % Normal 43.0-75.0 [facility] Comment on above: Performed By: #### C BC #### [facility] [address] [address] [address] Hu Carlos Platelet mean volume (Bld) [Entitic vol] 8.8 fL Critically low 9.5-13.5 [facility] Comment on above: Performed By: #### C BC #### [facility] [address] [address] [address] Hu Carlos PLT 278 103/ul Normal 150-450 [facility] Comment on above: Performed By: #### C BC #### [facility] [address] [address] [address] Hu Carlos RBC 4.03 106/ul Critically low 4.20-5.40 [facility] Comment on above: Performed By: #### C BC #### [facility] [address] [address] [address] Hu Carlos WBC 5.3 103/ul Normal 4.0-11.0 [facility] Comment on above: Performed By: #### C BC #### [facility] [id number] Hu Carlos GLYCOHEMOGLOBIN A1Con 2021 ADA RECOMMENDATION SEE BELOW Normal [facility] Comment on above: Result Comment: ADA RECOMMENDED LIMIT 4.0 - 6.0 ADA THERAPEUTIC TARGET < 7.0 ACTION SUGGESTED > 7.0 Performed By: #### A 1C ####[facility] [id number] [address]Dr. Hu Carlos Glucose [Mass/Vol] 123 mg/dL Normal [facility] Comment on above: Performed By: #### A 1C ####[facility] [address] [id number]. Hu Carlos HbA1c (Bld) [Mass fraction] 5.9 % Normal 4.5-6.2 [facility] Comment on above: Performed By: #### A 1C ####[facility] [address] [place], [place] [address]HzDr. Hu Carlos IRONon 06-03-2022 Iron [Mass/Vol] 68.0 ug/dL Normal 50.0-170.0 [facility] Comment on above: Performed By: #### I CANDY #### [facility] [address] [address] [address] Hu Carlos LIPID PROFILEon 06-03-2022 CHOL-HDL RATIO NORM SEE BELOW Normal [facility] Comment on above: Result Comment: 3.3 - 4.4 LOW RISK 4.4 - 7.1 AVERAGE RISK 7.1 - 11.0 MODERATE RISK >11.0 HIGH RISK Performed By: #### T SH, LIPID, CMP #### [facility] [address] [address] [address] Hu Carlos Cholesterol [Mass/Vol] 155 mg/dL Normal <=[address] [facility] Comment on above: Performed By: #### T SH, LIPID, CMP #### [facility] [address] [address] [address] Hu Carlos Cholesterol in HDL [Mass/Vol] 70 mg/dL Critically high 40-60 [facility] Comment on above: Performed By: #### T SH, LIPID, CMP #### [facility] [address] [address] [address] Hu Carlos Cholesterol in LDL [Mass/Vol] 73.2 mg/dL Normal [facility] Comment on above: Performed By: #### T SH, LIPID, CMP #### [facility] [address] [address] [address] Hu Carlos Cholesterol.total/Chol esterol in HDL [Mass ratio] 2.2 {ratio} Normal [facility] Comment on above: Performed By: #### T SH, LIPID, CMP #### [facility] [address] [address] [address] Hu Carlos HDL NORMAL > or = 60 mg/dl - LO W CARDIOVASCULAR RISK <40 mg/dl - HIGH CARDIOVASCULAR RISK Normal [facility] Comment on above: Performed By: #### T KISHOR, LIPID, CMP #### [facility] [address] [address] [address] Hu Carlos LDL CALC NORMAL SEE BELOW Normal [facility] Comment on above: Result Comment: <100 mg/dl OPTIMAL 100 - 129 mg/dl NEAR OR ABOVE OPTIMAL 130 - 159 mg/dl BORDERLINE HIGH 160 - 189 mg/dl HIGH >190 mg/dl VERY HIGH Performed By: #### T SH, LIPID, CMP #### [facility] [address] [address] [address] Hu Carlos Triglyceride [Mass/Vol] 59 mg/dL Normal <=150 [facility] Comment on above: Performed By: #### T KISHOR, LIPID, CMP #### [facility] [address] [address] [address] Hu Carlos VLDL CALC 11.8 mg/dL Normal [facility] Comment on above: Performed By: #### T KISHOR, LIPID, CMP #### [facility] [address] [address] [address] Hu Carlos PROF 14(COMP METB)on 022 Albumin [Mass/Vol] 3.5 g/dL Normal 3.4-5.0 [facility] Comment on above: Performed By: #### T KISHOR, LIPID, CMP #### [facility] [address] [address] [address] Hu Carlos Albumin/Globulin [Mass ratio] 1.0 {ratio} Normal [facility] Comment on above: Performed By: #### T SH, LIPID, CMP #### [facility] [address] [address] [address] Hu Carlos ALP [Catalytic activity/Vol] 73 U/L Normal 46-116 [facility] Comment on above: Performed By: #### T SH, LIPID, CMP #### [facility] [address] [address] [address] Hu Carlos ALT [Catalytic activity/Vol] 24 U/L Normal 14-59 [facility] Comment on above: Performed By: #### T SH, LIPID, CMP #### [facility] [address] [address] [address] Hu Carlos Anion gap [Moles/Vol] 11.1 mmol/L Normal [facility] Comment on above: Performed By: #### T SH, LIPID, CMP #### [facility] [address] [address] [address] Hu Carlos AST [Catalytic activity/Vol] 15 U/L Normal 15-37 [facility] Comment on above: Performed By: #### T SH, LIPID, CMP #### [facility] [address] [place] [address] Dr. Hu Carlos Bilirubin [Mass/Vol] 0.4 mg/dL Normal 0.2-1.0 [facility] Comment on above: Performed By: #### T KISHOR, LIPID, CMP #### [facility] [address] [place] [address] Dr. Hu Carlos Calcium [Mass/Vol] 8.9 mg/dL Normal 8.5-10.1 [facility] Comment on above: Performed By: #### T KISHOR, LIPID, CMP #### [facility] [address] [place] [address] Dr. Hu Carlos Chloride [Moles/Vol] 103 mmol/L Normal 98-107 [facility] Comment on above: Performed By: #### T KISHOR, LIPID, CMP #### [facility] [address] [place] [address] Dr. Hu Carlos CO2 [Moles/Vol] 30.9 mmol/L Normal 21.0-32.0 [facility] Comment on above: Performed By: #### T SH, LIPID, CMP #### [facility] [address] [place] [address] Dr. Hu Carlos Creatinine [Mass/Vol] 0.81 mg/dL Normal 0.55-1.02 [facility] Comment on above: Performed By: #### T KISHOR, LIPID, CMP #### [facility] [address] [place] [address] Dr. Hu Carlos EGFR-AF EGYPTIAN >60 Normal >=60 [facility] Comment on above: Performed By: #### T SH, LIPID, CMP #### [facility] [address] [place] [address] Dr. Hu Carlos EGFR-NON AF EGYPTIAN >60 Normal >=60 [facility] Comment on above: Performed By: #### T SH, LIPID, CMP #### [facility] [address] [place] [address] Dr. Hu Carlos Globulin (S) [Mass/Vol] 3.6 g/dL Normal [facility] Comment on above: Performed By: #### T SH, LIPID, CMP #### [facility] [address] [place] [address] Dr. Hu Carlos Glucose [Mass/Vol] 100 mg/dL Normal 74-106 [facility] Comment on above: Performed By: #### T SH, LIPID, CMP #### [facility] [address] [place] [address] Dr. Hu Carlos Potassium [Moles/Vol] 4.0 mmol/L Normal 3.5-5.1 [facility] Comment on above: Performed By: #### T KISHOR, LIPID, CMP #### [facility] [address] [place] [address] Dr. Hu Carlos Protein [Mass/Vol] 7.1 g/dL Normal 6.4-8.[address] [facility] Comment on above: Performed By: #### T SH, LIPID, CMP #### [facility] [address] [place] [address] Dr. Hu Carlos Sodium [Moles/Vol] 141 mmol/L Normal 136-[address] [facility] Comment on above: Performed By: #### T SH, LIPID, CMP #### [facility] [address] [place] [address] Dr. Hu Carlos Urea nitrogen [Mass/Vol] 21.0 mg/dL Critically high 7.0-18.0 [facility] Comment on above: Performed By: #### T SH, LIPID, CMP #### [facility] [address] [address] [address] Hu Carlos Urea nitrogen/Creatinine [Mass ratio] 25.9 mg/mg Normal [facility] Comment on above: Performed By: #### T SH, LIPID, CMP #### [facility] [address] [address] [address] Hu Carlos TSHon 06-03-2022 TSH 1.582 uIU/mL Normal 0.358-3.740 [facility] Comment on above: Performed By: #### T SH, LIPID, CMP #### [facility] [address] [place], [place] [address] Dr. Hu Carlos PHQ-2 VITALSon 05-31-2022 Fall risk assessment a) No falls within the last year [facility] Work Phone: Tobacco use status [facility]PHS b) No [facility] Work Phone: PHQ-2 VITALS Yes [facility] DO Work Phone: Tobacco Screening.on 021 Fall risk assessment a) No falls within the last year [facility] Work Phone: Tobacco use status CPHS b) No [facility] DO Work Phone: [facility] Carotid Artery Dupl ex Ultrasounon 06-23-2020 [facility] Carotid Artery Duplex Ultrasoun [address], [address] [place] [address] Vascular Lab Report Carotid Artery Duplex Ultrasound Patient Name: ANN MARIE HILL Kasie Physician: [id number] Miranda Tinoco MD, [facility] Study Date: 06/23/2020 Referring Physician: [id number] Mary Anne Snow MD MRN/PID: [id number] PCP: Savana Prater Accession/Order#: [id number] CC Report to: Date of : 1940 Technologist: Irasema Dooley RD, RVT Gender: F Technologist 2: Admission Status: Outpatient Location Performed: [facility] Diagnosis/ICD: 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 Indication: HTN, Hyperlipidemia, Mild Dementia, Overweight, PVC's Procedure/CPT: 90127 Cerebrovascular Carotid Duplex scan complete-[id number] CONCLUSIONS: Right Carotid: Findings are consistent with [...] cm/s Right Left ICA/CCA Ratio 1.0 0.9 [id number] Miranda Tinoco MD, FACC Final Normal [facility] CARDIAC STRESS/REST INJE CTIONon 09-11-2019 [facility] CARDIAC STRESS/REST INJECTION Patient Name: ANN MARIE HILL STUDY: MYOCARDIAL PERFUSION STRESS TEST WITH LEXISCAN Performing facility: [facility], [address] [place] [address], [address], [place] [address] [facility] Provider: Mary Anne Snow MD PCP: Dr. Robel PRATER Supervising provider: Yin Taylor MD, [facility] INDICATION: CP HISTORY: Gender: F; Age: 78 y/o ; Height: 154.94 cm; Weight: 77.3260938 kg. High Cholesterol; HTN PVCs CP DEMENTIA Denies smoking. COMPARISON: No comparison. ACCESSION NUMBER(S): [id number]; [id number]; [id number] ORDERING CLINICIAN: MARY ANNE SNOW TECHNIQUE: ONE [...] Electronically signed by: MARY ANNE SNOW MD [facility] XR Shoulder - left 2 Views [facility] Vital Signs Date Time Vital Sign Value Performing Clinician Facility 04-24-2024 13:23040 Body height 157.5 cm Mayank Hanson MD Work Phone: [facility] 04-24-2024 13:23-0400 Body mass index (BMI) [Ratio] 30.73 kg/m2 Mayank Hanson MD Work Phone: [facility] 04-24-2024 13:23-0400 Body temperature 98.2 [degF] Mayank Hanson MD Work Phone: [facility] 04-24-2024 13:23-0400 Body weight 76.2 kg Mayank Hanson MD Work Phone: [facility] 02-21-2024 11:08-0400 Body height 152.4 cm Mayank Hanson MD Work Phone: [facility] 02-21-2024 11:08-0400 Body mass index (BMI) [Ratio] 32.81 kg/m2 Mayank Hanson MD Work Phone: [facility] 02-21-2024 11:08-0400 Body temperature 98.2 [degF] Mayank Hanson MD Work Phone: [facility] 02-21-2024 11:08-0400 Body weight 76.2 kg Mayank Hanson MD Work Phone: [facility] 02-20-2024 13:23-0400 Body height 157.5 cm Helio Goff INSURANCE AUDITOR.PIG MACHINE OPERATOR Work Phone: [facility] 02-20-2024 13:23-0400 Body mass index (BMI) [Ratio] 30.73 kg/m2 Helio Goff INSURANCE AUDITOR.PIG MACHINE OPERATOR Work Phone: [facility] 02-20-2024 13:23-0400 Body weight 76.2 kg Helio Goff INSURANCE AUDITOR.PIG MACHINE OPERATOR Work Phone: [facility] 02-20-2024 13:23-0400 Diastolic blood pressure 72 mm[Hg] Helio Goff INSURANCE AUDITOR.PIG MACHINE OPERATOR Work Phone: [facility] 02-20-2024 13:23-0400 Systolic blood pressure 118 mm[Hg] Helio Goff INSURANCE AUDITOR.PIG MACHINE OPERATOR Work Phone: [facility] 02-04-2024 21:25-0400 SaO2% (BldA) [Mass fraction] 99 % SAVANA [facility] Comment on above: Order Comment: Specimen Type: ARTERIAL B LOOD SPECIMENOrdering Facility: [facility] Address: [address] [place], [place] [id number] Performed By: #### A LLBG ####[facility] [id number] [place] [address] [facility] 02-04-2024 11:39-0400 SaO2% (BldA) [Mass fraction] 87 % [facility] Comment on above: Order Comment: Specimen Type: ARTERIAL B LOOD SPECIMENOrdering Facility: [facility] Address: [address] [place] [address] Performed By: #### A LLBG ####[facility] [id number] [address] 01-26-2024 16:39-0400 Body temperature 97.5 [degF] Susi Latrell INSURANCE AUDITOR - INSULATION ENGINEMAN Work Phone: [facility] [employer] 01-26-2024 16:39-0400 Body weight 76.2 kg Susi Latrell INSURANCE AUDITOR - INSULATION ENGINEMAN Work Phone: [facility] [employer] 01-26-2024 16:39-0400 Diastolic blood pressure 68 mm[Hg] Susi Siegfrie d INSURANCE AUDITOR - INSULATION ENGINEMAN Work Phone: [facility] [employer] 01-26-2024 16:39-0400 Heart rate 94 /min Susi Latrell INSURANCE AUDITOR - INSULATION ENGINEMAN Work Phone: [facility] [employer] 01-26-2024 16:39-0400 SaO2% (BldA) [Mass fraction] 97 % Susi Latrell INSURANCE AUDITOR - INSULATION ENGINEMAN Work Phone: [facility] [employer] 01-26-2024 16:39-0400 Systolic blood pressure 140 mm[Hg] Susi Latrell INSURANCE AUDITOR - INSULATION ENGINEMAN Work Phone: [facility] [employer] 01-24-2024 11:11-0400 Body height 162.6 cm Mayank Hanson MD Work Phone: [facility] 01-24-2024 11:11-0400 Body weight 74.84 kg Mayank Hanson MD Work Phone: [facility] 01-24-2024 11:11-0400 Respiratory rate 16 /min Mayank Hanson MD Work Phone: [facility] 06-06-2023 13:36-0400 Body height 157.48 cm Savana M Hoy Work Phone: [facility] DO Work Phone: 06-06-2023 13:36-0400 Body mass index (BMI) [Ratio] 27.98 kg/m2 Savana M Hoy Work Phone: [facility] [facility] DO Work Phone: 06-06-2023 13:36-0400 Body surface area Derived from formula 1.71 m2 Savana M Hoy Work Phone: [facility] [place] [facility] DO Work Phone: 06-06-2023 13:36-0400 Body weight 69.4 kg Savana M Hoy Work Phone: [facility] [facility] DO Work Phone: 06-06-2023 13:36-0400 Diastolic blood pressure 62 mm[Hg] Savana M Hoy Work Phone: [facility] [facility] DO Work Phone: 06-06-2023 13:36-0400 Heart rate 64 /min Savana M Hoy Work Phone: [facility] [facility] DO Work Phone: 06-06-2023 13:36-0400 Systolic blood pressure 100 mm[Hg] Savana M Hoy Work Phone: [facility] [facility] DO Work Phone: 05-19-2023 15:41-0400 Body height 157.5 cm Christiana Montero MD Work Phone: [facility] 05-19-2023 15:41-0400 Body weight 70.94 kg Christiana Montero MD Work Phone: [facility] 05-19-2023 15:41-0400 Diastolic blood pressure 63 mm[Hg] Christiana Montero MD Work Phone: [facility] 05-19-2023 15:41-0400 Heart rate 76 /min Christiana Montero MD Work Phone: [facility] 05-19-2023 15:41-0400 Systolic blood pressure 124 mm[Hg] Christiana Montero MD Work Phone: [facility] 04-25-2023 11:12-0400 Blood Pressure Location ELLEN DANIEL [facility] 04-25-2023 11:12-0400 Diastolic blood pressure 80 mm[Hg] ELLEN DANIEL [facility] 04-25-2023 11:12-0400 Heart rate 72 /min ELLEN DANIEL [facility] 04-25-2023 11:12-0400 Respiratory rate 16 /min ELLEN DANIEL [facility] 04-25-2023 11:12-0400 Systolic blood pressure 130 mm[Hg] ELLEN DANIEL [facility] 02-03-2023 15:26-0400 Body height 157.5 cm Christiana Montero MD Work Phone: [facility] 02-03-2023 15:26-0400 Body weight 68.77 kg Christiana Montero MD Work Phone: [facility] 02-03-2023 15:26-0400 Diastolic blood pressure 59 mm[Hg] Christiana Montero MD Work Phone: [facility] 02-03-2023 15:26-0400 Heart rate 83 /min Christiana Montero MD Work Phone: [facility] 02-03-2023 15:26-0400 Systolic blood pressure 136 mm[Hg] Christiana Montero MD Work Phone: [facility] 10-31-2022 13:19-0500 Body height 157.5 cm Christiana Montero MD Work Phone: [facility] 10-31-2022 13:19-0500 Body temperature 97.81 [degF] Christiana Montero MD Work Phone: [facility] 10-31-2022 13:19-0500 Body weight 62.23 kg Christiana Montero MD Work Phone: [facility] 10-31-2022 13:19-0500 Diastolic blood pressure 68 mm[Hg] Christiana Montero MD Work Phone: [facility] 10-31-2022 13:19-0500 Heart rate 79 /min Christiana Montero MD Work Phone: [facility] 10-31-2022 13:19-0500 SaO2% (BldA) [Mass fraction] 97 % Christiana Montero MD Work Phone: [facility] 10-31-2022 13:19-0500 Systolic blood pressure 143 mm[Hg] Christiana Montero MD Work Phone: [facility] 08-08-2022 15:17-0400 Diastolic blood pressure 76 mm[Hg] Kunal LORA [facility] 08-08-2022 15:17-0400 Mean blood pressure 101 mm[Hg] Kunal LORA [facility] 08-08-2022 15:17-0400 Systolic blood pressure 152 mm[Hg] Kunal LORA [facility] 07-25-2022 12:47-0400 Body height 157.5 cm Christiana Montero MD Work Phone: [facility] 07-25-2022 12:47-0400 Body temperature 98.01 [degF] Christiana Montero MD Work Phone: [facility] 07-25-2022 12:47-0400 Body weight 61.01 kg Christiana Montero MD Work Phone: [facility] 07-25-2022 12:47-0400 Diastolic blood pressure 62 mm[Hg] Christiana Montero MD Work Phone: [facility] 07-25-2022 12:47-0400 Heart rate 80 /min Christiana Montero MD Work Phone: [facility] 07-25-2022 12:47-0400 SaO2% (BldA) [Mass fraction] 98 % Christiana Montero MD Work Phone: [facility] 07-25-2022 12:47-0400 Systolic blood pressure 140 mm[Hg] Christiana Montero MD Work Phone: [facility] 05-31-2022 11:58-0400 Body height 157.48 cm Savana M Hoy Work Phone: [facility] DO Work Phone: 05-31-2022 11:58-0400 Body mass index (BMI) [Ratio] 23.59 kg/m2 Savana M Hoy Work Phone: [facility] [facility] DO Work Phone: 05-31-2022 11:58-0400 Body surface area Derived from formula 1.59 m2 Savana M Hoy Work Phone: [facility] DO Work Phone: 05-31-2022 11:58-0400 Body weight 58.51 kg Savana M Hoy Work Phone: [facility] DO Work Phone: 05-31-2022 11:58-0400 Diastolic blood pressure 60 mm[Hg] Savana Paz Hoy Work Phone: [facility] DO Work Phone: 05-31-2022 11:58-0400 Heart rate 68 /min Savana Paz Hoy Work Phone: [facility] DO Work Phone: 05-31-2022 11:58-0400 Systolic blood pressure 102 mm[Hg] Savana Paz Hoy Work Phone: [facility] DO Work Phone: 03-18-2022 12:59-0400 Body height 157.5 cm Evita Calderon MD Work Phone: [facility] 03-18-2022 12:59-0400 Body weight 55.34 kg Evita Calderon MD Work Phone: [facility] 03-18-2022 12:59-0400 Diastolic blood pressure 52 mm[Hg] Evita hernandez MD Work Phone: [facility] 03-18-2022 12:59-0400 Heart rate 70 /min Evita Calderon MD Work Phone: [facility] 03-18-2022 12:59-0400 Systolic blood pressure 107 mm[Hg] Evita vera MD Work Phone: [facility] 03-02-2022 10:32-0400 Body weight 56.61 kg Han Britton MD Work Phone: [facility] 03-02-2022 10:32-0400 Diastolic blood pressure 53 mm[Hg] Han Britton MD Work Phone: [facility] 03-02-2022 10:32-0400 Heart rate 75 /min Han Britton MD Work Phone: [facility] 03-02-2022 10:32-0400 Systolic blood pressure 115 mm[Hg] Han Britton MD Work Phone: [facility] 01-31-2022 14:14-0400 Blood Pressure Location Kunal LORA [facility] 01-31-2022 14:14-0400 Diastolic blood pressure 51 mm[Hg] Kunal LORA [facility] 01-31-2022 14:14-0400 Heart rate 66 /min Kunal LORA [facility] 01-31-2022 14:14-0400 Respiratory rate 16 /min Kunal LORA [facility] 01-31-2022 14:14-0400 Systolic blood pressure 96 mm[Hg] Kunal LORA [facility] 08-09-2021 13:50-0400 Body height 157.48 cm Savana Paz [employer] Work Phone: [facility] DO Work Phone: 08-09-2021 13:50-0400 Body mass index (BMI) [Ratio] 21.58 kg/m2 Savana [employer] Work Phone: [facility] DO Work Phone: 08-09-2021 13:50-0400 Body surface area Derived from formula 1.53 m2 Savana [employer] Work Phone: [facility] DO Work Phone: 08-09-2021 13:50-0400 Body weight 53.52 kg Savana Paz Hoy Work Phone: [place] [facility] DO Work Phone: 08-09-2021 13:50-0400 Diastolic blood pressure 60 mm[Hg] Savana Paz Hoy Work Phone: [facility] 250 DO Work Phone: 08-09-2021 13:50-0400 Heart rate 72 /min Savana Paz Hoy Work Phone: [facility] 250 DO Work Phone: 08-09-2021 13:50-0400 Systolic blood pressure 110 mm[Hg] Savana Paz Hoy Work Phone: [facility] 250 DO Work Phone: Encounters Encounter Date Encounter Type Care Provider Facility Start: 04-24-2024 End: 04-24-2024 Patient encounter procedure Mayank Hanson MD Work Phone: [facility] Comment on above: Other closed displac ed fracture of proximal end of left humerus with routine healing, subsequent encounter (Primary Dx); History of left hip hemiarthroplasty Start: 04-24-2024 End: 04-24-2024 ambulatory MAYANK HANSON Facility:[facility] Start: 03-07-2024 E-mail encounter fro m caregiver Rodriguez Starr PA-C Work Phone: Radiology Start: 03-07-2024 Follow-up encounter Rodriguez kumari PA-C Work Phone: Radiology Comment on above: Actionable Findings Follow-Up Start: 02-27-2024 ambulatory Carla Schultz RN Amb ulatory Care Management Comment on above: ACJackson BARRIGA RN ( E.D. Utilization Review per Payer Request.) Start: 02-21-2024 End: 02-21-2024 Patient encounter procedure Mayank Hanson MD Work Phone: [facility] Comment on above: History of left hip hemiarthroplasty (Primary Dx); Other closed displaced fracture of proximal end of left humerus with routine healing, subsequent encounter Start: 02-21-2024 End: 02-21-2024 ambulatory MAYANK HANSON Facility:[facility] Start: 02-20-2024 End: 02-20-2024 ambulatory Carla Schultz RN Athletic Equipment Custodian Management Comment on above: ACJackson BARRIGA RN ( E.D. Utilization Review per Payer Request.) Start: 02-20-2024 End: 02-20-2024 Patient encounter procedure Helio Goff INSURANCE AUDITOR.PIG MACHINE OPERATOR Work Phone: URO/Gynecology Comment on above: Female genital prola pse, unspecified type (Primary Dx); Incomplete bladder emptying; Recurrent UTI Start: 02-12-2024 End: 02-13-2024 Emergency department patient visit SAVANA PRATER Facility:[facility] Start: 02-10-[address], MD Work Phone: [place] [facility] Start: 02-07-2024 Refill Lena siu INSURANCE AUDITOR.PIG MACHINE OPERATOR Work Phone: [place] PROVID[facility]ULT Comment on above: Refill Request Start: 02-03-2024 Emergency department patient visit FESTUS GRIMES Facility:[facility] Start: 01-27-2024 End: 01-27-2024 Office outpatient visit 10 minutes Zo Blackmon INSURANCE AUDITOR - PIG MACHINE OPERATOR Work Phone: [facility] Comment on above: Acute cystitis witho ut hematuria (Primary Dx); Dysuria Start: 01-27-2024 End: 01-27-2024 ambulatory ZO BLACKMON [facility] Start: 01-26-2024 End: 01-27-2024 ambulatory SUSI NORTON [facility] Start: 01-26-2024 End: 01-26-2024 Patient encounter procedure Susi Norton INSURANCE AUDITOR - INSULATION ENGINEMAN Work Phone: [facility] Comment on above: Dysuria (Primary Dx) Start: 01-24-2024 End: 01-24-2024 ambulatory MAYANK HANSON Facility:[facility] Start: 01-24-2024 End: 01-24-2024 Patient encounter procedure Mayank Hanson MD Work Phone: [facility] Comment on above: Other closed displac ed fracture of proximal end of left humerus, initial encounter (Primary Dx) Start: 01-18-2024 End: 01-18-2024 Emergency department patient visit FESTUS GRIMES Facility:[facility] Start: 01-10-2024 Telephone encounter Ag Orth Work Phone: [facility] Comment on above: Appointment Start: 12-26-2023 Telephone encounter Arvin quintero MD Work Phone: [facility] Start: 12-26-2023 End: 01-01-2024 ambulatory ARAMIS NASCIMENTO Facility:[facility] Start: 12-25-2023 Emergency department patient visit SAVANA M SHERITACelia Facility:[facility] Start: 12-25-2023 Telephone encounter Arvin Goins MD Work Phone: [place] Provider Adult Comment on above: [facility] Start: 09-20-2023 End: 09-20-2023 ambulatory MAUREEN Daniel FAVIAN Not Available Start: 08-21-2023 End: 08-21-2023 Subsequent hospital visit by physician Judy Smith Echo/Vasc Room 2 [facility] Comment on above: Carotid stenosis, bi lateral; Benign hypertension Start: 07-19-2023 End: 07-20-2023 ambulatory ELLEN COOK Facility:[facility] Start: 07-19-2023 End: 07-19-2023 Lab Drop off ELLEN COOK [facility] Start: 07-19-2023 End: 07-20-2023 ambulatory Leonor Phillips Facility:[facility] Start: 07-19-2023 End: 07-19-2023 Patient encounter procedure Leonor Phillips [facility] Start: 06-06-2023 Office outpatient vi sit 15 minutes Savana Prater Work Phone: [facility] 250 DO Work Phone: Start: 06-06-2023 ambulatory [...] caregiver Christiana Montero MD Work Phone: [facility] Start: 04-26-2023 Rx Renewal Savana Prater Work Phone: [facility] 250 DO Work Phone: Start: 04-25-2023 End: 04-26-2023 ambulatory ELLEN COOK Facility: [facility] Start: 04-25-2023 End: 04-25-2023 Patient encounter procedure ELLEN COOK [facility] Start: 04-17-2023 End: 04-18-2023 ambulatory Kunal LORA Facility:[facility] Start: 04-17-2023 End: 04-17-2023 Patient encounter procedure Kunal LORA [facility] Start: 02-17-2023 Telephone encounter Kasey Serrano rocco Hern[address] RD Work Phone: Functional Medicine Comment on above: Appointment Start: 02-15-2023 End: 02-15-2023 ambulatory Kasey Oden Edgar LEIJA Work Phone: [facility] Start: 02-15-2023 End: 02-15-2023 FQHC visit, estab pt Kasey Oden Edgar LEIJA Work Phone: Functional Medicine Comment on above: Established Patient Start: 02-04-2023 ambulatory Christiana Concepcion Work Phone: Functional Medicine Comment on above: After Visit 02/03/23 Start: 02-04-2023 E-mail encounter jacob m caregiver Christiana Montero MD Work Phone: [facility] Start: 02-03-2023 End: 02-03-2023 Patient encounter procedure Christiana Montero MD Work Phone: Functional Medicine Comment on above: 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); B-complex deficiency; Chemical exposure; Poor diet; Impaired nutrient utilization Start: 11-03-2022 End: 11-03-2022 ambulatory [facility] Facility: Start: 10-31-2022 ambulatory Christiana Concepcion Work Phone: Functional Medicine Comment on above: After Visit 10/31/22 Start: 10-31-2022 E-mail encounter fro m caregiver Christiana Montero MD Work Phone: [facility] Start: 10-31-2022 End: 10-31-2022 Patient encounter [...] Facility:[facility] Start: 08-10-2022 End: 08-11-2022 ambulatory Kunal Pina GENO Facility:[facility] Start: 08-10-2022 End: 08-10-2022 Patient encounter procedure Kunal R GENO [facility] Start: 08-08-2022 End: 08-09-2022 ambulatory Kunal R GENO Facility:[facility] Start: 08-08-2022 End: 08-08-2022 Patient encounter procedure Kunal Heller LORA [facility] Start: 07-25-2022 End: 07-25-2022 Patient encounter procedure [...] sit 25 minutes Savana Prater Work Phone: [facility] 250 DO Work Phone: Start: 05-12-2022 ambulatory [facility] Functional Medicine Comment on above: Mold Report Start: 05-12-2022 E-mail encounter fro m caregiver [facility] Start: 05-09-2022 ambulatory Evita siu MD Work Phone: Functional Medicine Comment on above: Ubiquinol Start: 04-26-2022 Rx Renewal Savana Prater Work Phone: [facility] 250 DO Work Phone: Start: 04-11-2022 ambulatory [facility] Functional Medicine Comment on above: Ultrasound - Carotid Artery Start: 04-11-2022 E-mail encounter fro m caregiver [facility] Provider [facility] Start: 03-18-2022 End: 03-18-2022 Patient [...] of [facility] Start: 01-09-2022 ambulatory Evita siu MD Work Phone: Functional Medicine Comment on above: Mold test results Start: 08-09-2021 Office outpatient vi sit 25 minutes Savana Prater Work Phone: [facility] 250 DO Work Phone: Start: 07-11-2017 Ambulatory MOURHAF TRABOULSSI Faci lity:[id number] Procedures Date Procedure Procedure Detail Performing Clinician Start: 02-21-2024 Radex shoulder compl ete minimum 2 views Mayank Hanson MD Work Phone: Start: 02-03-2024 Antibody screen SAVANA PRATER Comment on above: Order Comment: Speci men Type: BLOOD SPECIMENOrdering Facility: [facility] Address: [address] [place] [address] [place] [address] Performed By: #### T SCR ####[facility] BLOOD BANKCLIA [id number] [place] [address] [place] Start: 01-27-2024 Urnls [...] MD Work Phone: Start: 02-12-2019 Cystourethroscopy wi dilation of urethral stricture Kunal LORA Appendectomy Savana M Hoy Work Phone: Cholecystectomy Savana M Ho y Work Phone: Operation on bladder Savana M Hoy Work Phone: Tonsillectomy Savana M Hoy Work Phone: Total colonoscopy Savana M Hoy Work Phone: Comment on above: managed by perico james; Plan of Treatment Date Care Activity Detail Author Start: 02-11-2027 Diabetes Screening Diabetes Screenin [facility] Start: 02-09-2027 Diabetes Screening Diabetes Screenin [facility] Start: 02-06-2027 Diabetes Screening Diabetes Screenin [facility] Start: 01-17-2027 Diabetes Screening Diabetes Screenin [facility] Start: 12-29-2026 Diabetes Screening Diabetes Screenin [facility] Start: 12-26-2026 Diabetes Screening Diabetes Screenin g [facility] Start: 12-24-2026 Diabetes Screening Diabetes Screenin g [facility] Start: 06-09-2024 Influenza vaccination [facility] Start: 06-04-2024 FUV, Provider: Mary Anne Snow, Status: Pen, Time: 2:00 PM FUV, Provider: Mary Anne Snow, Status: Pen, Time: 2:00 PM -[facility] 250 DO Work Phone: Start: 06-04-2024 End: 06-04-2024 Patient encounter procedure 06/04/2024 2:00 PM EDT Office Visit [facility] [address] [facility] [address] [place] [address] Mary Anne Snow MD [address] [facility] [address] [place] [address] [facility] Start: 04-24-2024 End: 04-24-2024 Patient encounter procedure 04/24/2024 1:30 PM EDT Office Visit [facility] [address] [place] [address] Mayank Hanson MD [address] [address] L HUMERUS FX F/U [facility] Comment on above: L HUMERUS FX F/U Start: 02-21-2024 End: 02-21-2024 Patient encounter procedure 02/21/2024 11:15 AM EDT Office Visit [facility] [address] [place] [address] Mayank Hanson MD [address] [id number] --L HUMERUS FX F/U [facility] Comment on above: --L HUMERUS FX F/U Start: 02-20-2024 End: 02-20-2024 Patient encounter procedure 02/20/2024 1:00 PM EDT Office Visit URO/Gynecology [address] [place] [address] Helio Goff, INSURANCE AUDITOR.PIG MACHINE OPERATOR [address] [place] [address] Prolapse / Pessary URO/Gynecology Comment on above: Prolapse / Pessary Start: 11-25-2023 DIABETES SCREEN DIABETES SCREEN [facility] Start: 10-09-2023 Advance Directive Discussion Advance Directive Discussion [facility] Start: 10-09-2023 Medicare Advantage A nnual Wellness Visit Medicare Advantage Annual Wellness Visit [facility] Start: 07-24-2023 CAROTID, Provider: CHAD CARMONA ULTRASOUND 01,[id number], Status: Pen, Time: 2:30 PM CAROTID, Provider: CHAD CARMONA ULTRASOUND 01,[id number], Status: Pen, Time: 2:30 PM [facility] 250 DO Work Phone: Start: 06-09-2023 Covid-19 Vaccine () Covid-19 Vaccine () [facility] Start: 06-09-2023 Influenza vaccination C [facility] Start: 06-06-2023 FUV, Provider: Mary Anne Snow, Status: Pen, Time: 1:20 PM FUV, Provider: Mary Anne Snow, Status: Pen, Time: 1:20 PM [facility] 250 DO Work Phone: Start: 03-18-2023 BP CONTROLLED (<130/80) BP CON TROLLED (<130/80) [facility] Start: 03-02-2023 BP CONTROLLED (<130/80) BP CON TROLLED (<130/80) [facility] Start: 02-04-2023 End: 04-06-2023 MIS SEND OUT TST 1 MISC SEND OUT TST 1 Lab Routine 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) Chemical exposure Expected: 02/04/2023, Expires: 04/06/2023 [facility] Work Phone: Comment on above: Expected: 02/04/2023 , Expires: 04/06/2023 Start: 12-01-2022 BP CONTROLLED (<130/80) BP CON TROLLED (<130/80) [facility] Start: 10-09-2022 ADVANCE DIRECTIVE DISCUSSION ADVANCE DIRECTIVE DISCUSSION [facility] Start: 07-25-2022 End: 09-24-2022 COPPER BLOOD COPPER BLOOD Lab Routine Memory change Expected: 07/25/2022, Expires: 09/24/2022 [facility] Work Phone: Comment on above: Expected: 07/25/2022 , Expires: 09/24/2022 Start: 07-25-2022 End: 09-24-2022 FM SQ NUTREVAL PANEL BLOOD AND URINE FM SQ NUTREVAL PANEL BLOOD AND URINE Lab Routine Impaired nutrient utilization Expected: 07/25/2022, Expires: 09/24/2022 [facility] Work Phone: Comment on above: Expected: 07/25/2022 , Expires: 09/24/2022 Start: 07-25-2022 End: 09-24-2022 Homocysteine [Moles/volume] in Serum or Plasma HOMOCYSTEINE Lab Routine Elevated homocysteine Expected: 07/25/2022, Expires: 09/24/2022 [facility] Work Phone: Comment on above: Expected: 07/25/2022 , Expires: 09/24/2022 Start: 07-25-2022 End: 07-25-2023 Thyrotropin [Units/volume] in Serum or Plasma TSH BLD Lab Routine Expected: 07/25/2022, Expires: 07/25/2023 [facility] Work Phone: Comment on above: Expected: 07/25/2022 , Expires: 07/25/2023 Start: 07-25-2022 End: 07-25-2023 Thyroxine (T4) free [Mass/volume] in Serum or Plasma T4 FREE/FREE THYROX Lab Routine Expected: 07/25/2022, Expires: 07/25/2023 [facility] Work Phone: Comment on above: Expected: 07/25/2022 , Expires: 07/25/2023 Start: 07-25-2022 End: 09-24-2022 Triiodothyronine (T3) Free [Mass/volume] in Serum or Plasma T3 FREE BLD Lab Routine Expected: 07/25/2022, Expires: 09/24/2022 [facility] Work Phone: Comment on above: Expected: 07/25/2022 , Expires: 09/24/2022 Start: 07-25-2022 End: 09-24-2022 Zinc [Mass/volume] in Serum or Plasma ZINC BLD Lab Routine Memory change Expected: 07/25/2022, Expires: 09/24/2022 [facility] Work Phone: Comment on above: Expected: 07/25/2022 , Expires: 09/24/2022 Start: 06-09-2022 Influenza vaccination C [facility] Start: 05-31-2022 FUV, Provider: Mary Anne Snow, Status: Pen, Time: 11:50 AM FUV, Provider: Mary Anne Snow, Status: Pen, Time: 11:50 AM [facility] 250 DO Work Phone: Start: 05-25-2022 FUV, Provider: Mary Anne Snow, Status: Pen, Time: 1:00 PM FUV, Provider: Mary Anne Snow, Status: Pen, Time: 1:00 PM [facility] 250 DO Work Phone: Start: 10-09-2021 ADVANCE DIRECTIVE DISCUSSION ADVANCE DIRECTIVE DISCUSSION [facility] Start: 08-07-2019 Pneumococcal Vaccine : 65+ (2 of 2 - PPSV23 or PCV20) Pneumococcal Vaccine: 65+ (2 of 2 - PPSV23 or PCV20) [facility] Start: 08-07-2019 Pneumococcal Vaccine : 65+ Years (2 - PPSV23 or PCV20) Pneumococcal Vaccine: 65+ Years (2 - PPSV23 or PCV20) [facility] Start: 08-07-2019 Pneumococcal Vaccine : 65+ Years (2 of 2 - PPSV23 or PCV20) Pneumococcal Vaccine: 65+ Years (2 of 2 - PPSV23 or PCV20) [facility] Start: 2006 BONE DENSITY BONE DENSITY [facility] Start: 2006 PNEUMOCOCCAL: 65+ (1 - PCV) PNEUMOCOCCAL: 65+ (1 - PCV) [facility] Start: 2006 PNEUMOVAX AGE 65 AND OVER WITH 5YR LOOKBACK (#1) PNEUMOVAX AGE 65 AND OVER WITH 5YR LOOKBACK (#1) [facility] Start: 2006 Screening for osteoporosis Bone Dens ity Screening [facility] Start: 2001 RSV Immunization age d 60 or older (1 - 1-dose 60+ series) RSV Immunization aged 60 or older (1 - 1-dose 60+ series) [facility] Start: 2001 RSV Vaccine (1 - 1-d ose 60+ series) RSV Vaccine (1 - 1-dose 60+ series) [facility] Start: 1991 SHINGRIX VACCINE (1 of 2) BYRNE GRIX VACCINE (1 of 2) [facility] Start: 1991 Zoster Vaccines (1 of 2) Zoste r Vaccines (1 of 2) [facility] Start: 1963 DTaP/Tdap/Td Vaccine s (1 - Tdap) DTaP/Tdap/Td Vaccines (1 - Tdap) [facility] Start: 1960 DTaP/Tdap/Td Vaccine s (1 - Tdap) DTaP/Tdap/Td Vaccines (1 - Tdap) [facility] Start: 1960 Urine microalbumin profile [facility] Start: 1959 ANNUAL PCP TEAM FIRE OFFICIAL BRANNON DISEASE VISIT ANNUAL PCP TEAM CHRONIC DISEASE VISIT [facility] Start: 1959 BP CONTROLLED (<130/80) BP CON TROLLED (<130/80) [facility] Start: 1953 Depression Screening Depression Scre ening [facility] Start: 1946 COVID-19 VACCINE (#1) COVID-19 VACCI NE (#1) [facility] Start: 1946 COVID-19 VACCINE (1) COVID-19 VACCIN E (1) [facility] Start: 05-09-1942 COVID-19 VACCINE (#1) COVID-19 VACCI NE (#1) [facility] Start: 1941 Lipid panel Lipid Panel [facility] Start: 1941 Medicare Annual Well ness Visit Medicare Annual Wellness Visit (AWV) [facility] Start: 1941 Screening for osteoporosis Bone Dens ity Scan [facility] Bacteria identified in Urine by Culture Urine culture Microbiology Routine Dysuria Ordered: 01/27/2024 [facility] Work Phone: Comment on above: Ordered: 01/27/2024 End: 08-21-2023 US.doppler Carotid arteries - bilateral [facility] Service Area Work Phone: Comment on [...] pneumococcal conjuga te vaccine, 13 valent Savana Prater Work Phone: -[facility] 250 DO Work Phone: NEGATED: Highlighted row has not occurred!08-08-2022 SARS-CoV-2 mRNA (tozinameran 5y-11y) vaccine Kunal LORA [facility] NEGATED: Highlighted row has not occurred!11-23-2020 influenza virus vaccine, unspecified formulation Kunal LORA [facility] Payers Date Payer Category Payer Medicare AETNA MEDICARE A ETNA MEDICARE PPO [id number] 2021-Present [phone] [address] [place] [address] PPO [id number] 2021 Medicare [id number] 1959 Medicare [id number] 1941 Unknown [id number] 93 1941 Unknown [id number] 93 1941 Unknown [id number] 93 1941 Unknown [id number] 93 1941 Unknown [id number] 93 1941 Unknown [id number] [id number] 56 1941 Unknown [id number] [id number] 27 1941 Unknown [id number] 27 1941 Unknown [id number] 27 1941 Unknown [id number] 27 1941 Unknown [id number] [id number] 27 1941 Unknown [id number] 27 1941 Unknown [id number] 259 Private Health Insurance [id number] Unknown [employer] Social History Date Type Detail Facility Start: 10-31-2022 End: 02-15-2023 Caffeine use Caffeine use [facility] Comment on above: decaff occasional co ffee, 1-2 cups of ohtt lionel daily; Start: 06-13-2019 End: 07-25-2022 Tobacco smoking status NHIS Never smoked tobacco [facility] Start: 06-13-2019 End: 07-25-2022 Tobacco use and exposure Smokeless tobacco non-user [facility] Start: 1940 Sex Assigned At Female [facility] Start: 12-07-2021 End: 08-21-2023 Exposure to SARS-CoV-2 (event) Not sure [facility] Start: 10-31-2022 End: 02-15-2023 Sex Assigned At Female [facility] Tobacco smoking status Never [facility] Start: 07-07-2020 Sexual orientation Heterosexual (beronica winters) [facility] Tobacco smoking stat [facility] Tobacco smoking consumption unknown [facility] Work Phone: Start: 1940 Sex Assigned At Not on file U [facility] Work Phone: Start: 12-25-2023 End: 04-24-2024 Alcohol intake Lifetime non-drinker (finding) [facility] Has the [employer], or [employer] threatened to shut off services in your home in past 12Mo No [facility] (I/We) worried wheheladio er (my/our) food would run out before (I/we) got money to buy more. Never true [facility] Medical Equipment Procedure Code Equipment Code Equipment Original Text Equipment Identifier Dates Cement Simplex P Tobramycin Bone Full Dose Radiopaque Preblend Sterile - [id number] Start: 02-04-2024 Cement Simplex P Tobramycin Bone Full Dose Radiopaque Preblend Sterile - [id number] Start: 02-04-2024 Insert Endo Ii + 6mm Taper Acetabular Hip - [id number] Start: 02-04-2024 Head Bio-Murphy I i Endo Ii 44mm Cocr Molybdenum Femoral Modular - [id number] Start: 02-04-2024 Centralizer Vers ys 11mm Pmma Stem Cemented Sterile Hip Distal - [id number] Start: 02-04-2024 Stem Echo Fx 9mm Lateral Offset Cocr Femoral Hip - [id number] Start: 02-04-2024 Plug Small Bone Cement 8-10mm Sterile Intramedullary Canal - [id number] Start: 02-04-2024 Functional Status Date Assessment Result Facility 04-25-2023 Functional Status N/A [facility] 08-08-2022 Functional Status N/A [facility] Clinical Notes 01-31-2022 to 04-24-2024 Mayank Hanson MD - 04/24/2024 1:20 PM Carla Matias RN - 02/27/2024 11:37 AM Mayank Noel MD - 02/21/2024 1:21 PM EDTPatient InstructionsPatient Instructions Note Date & Type Note Facility 04-24-2024 Note Gwendolyn Banks [facility] 04-24-2024 History of Presen t illness [...] Reactions Yuli Inhibitors Unknown Ciprofloxacin Unknown Nitrofurantoin Mccracken* Itching Penicillins Hives Sulfa (Sulfonamide * Rash [...] Additional: None for patient. requested referral to appointment specialist [facility]; will have office attempt to help him. Return if symptoms worsen or fail to improve. Mayank Hanson MD documented in this encounter [facility] 02-27-2024 Note Patient Outreach ([facility] ANN MARIE HILL ([id number]) 1940 F Date Time Provider Department 02/27/24 CARLA SCHULTZAdrian During your visit today, we recorded the following information about you: Carla Schultz RN 02/27/2024 11:41 AM Signed ACM JAMILAH RN Patient identified by name and date of . Reason for review or outreach: Chart Review Jamilah Priority Emergency Department Utilization ED DIAGNOSES/REASON(S) FOR ED USE: OTHER FINDINGS/SUMMARY: [facility] Admit No Action required Patient Attributed [...] - Fully Assessed Reason for Visit: ACJackson BARRIGA RN [[id number]] Cmt: E.D. Utilization Review per Payer Request. Prescriptions as [...] Encounter Status:Closed by CARLA SCHULTZ on 02/27/24 [facility] 02-27-2024 Note HNO ID: [id number] Author: CARLA SCHULTZ RN Service: ? Author Type: Registered Nurse Type: Progress Notes Filed: 02/27/2024 11:41 Note Text: ACM JAMILAH RN Patient identified by name and date of . Reason for review or outreach: Chart Review Jamilah Priority Emergency Department Utilization ED DIAGNOSES/REASON(S) FOR ED USE: OTHER FINDINGS/SUMMARY: [facility] Admit No Action required Patient Attributed To: QAE Payer: Mariana PERKINS Action Taken: No action needed Contact made with patient: No, Chart review only. Signature: Carla Schultz RN [facility] 02-27-2024 History of Presen t illness Narrative ACM JAMILAH RN Patient identified by name and date of . Reason for review or outreach: Chart Review Jamilah Priority Emergency Department Utilization ED DIAGNOSES/REASON(S) FOR ED USE: OTHER FINDINGS/SUMMARY: [facility] Admit No Action required Patient Attributed To: QAE Payer: Mariana PERKINS Action Taken: No action needed Contact made with patient: No, Chart review only. Signature: Carla Schultz RN documented in this encounter [facility] 02-21-2024 Note Gwendolyn Banks [facility] 02-21-2024 History of Presen t illness [...] institution 12/2023. She is performing rehab at [facility], accompanied by . Patient with advanced dementia and unable to answer many questions but follows commands. Appears comfortable. deciding whether to move her to memory care at [facility] or back to independent living with him at [facility]. No reports of new injury. No [...] Reactions Yuli Inhibitors Unknown Ciprofloxacin Unknown Nitrofurantoin Mccracken* Itching Penicillins Hives Sulfa (Sulfonamide * Rash [...] global post-operative period documented in this encounter [facility] 02-20-2024 Instructions Helio Goff, INSURANCE AUDITOR.[facility] - 02/20/2024 4:17 PM EDT Recommend trying [...] and protect the skin. Avoid using a hair spinning machine operator to dry the vulvar area. Use cool gel packs on the vulva. documented in this encounter [facility] 02-20-2024 Note HNO ID: [id number] Author: HELIO GOFF APRN.BELKIS Service: ? Author Type: Nurse Practitioner Type: [...] from Alzheimer's disease and currently resides [facility] in [place]. She recently underwent surgery for a fractured hip. She has been wearing pessary (incontinence dish) but Christos is very opposed to continuing with these. She reports Ann Marie becomes extremely distressed with pelvic exams. The pessary was recently removed by general MOTION PICTURE EQUIPMENT MACHINIST. Christos strongly feels this a violation of [...] Michael is POA. Medical and Symptom History: MOTION PICTURE EQUIPMENT MACHINIST HISTORY: Last Pap: NA; Last Mammogram: Her [...] a day a (more content not included)... [facility] 02-20-2024 Note HNO ID: [id number] Author: CARLA SCHULTZ RN Service: ? Author Type: Registered Nurse Type: Progress Notes Filed: 02/20/2024 12:05 Note Text: ACM JAMILAH RN Patient identified by name and date of . Reason for review or outreach: Chart Review Jamilah Priority Emergency Department Utilization ED DIAGNOSES/REASON(S) FOR ED USE: OTHER FINDINGS/SUMMARY: [facility] E.D. visit Attributed incorrectly Patient Attributed To: MALLORY Payer: Mariana PERKINS Action Taken: No action needed Contact made with patient: No, Chart review only. Signature: Carla Schultz RN [facility] 02-20-2024 Note Patient Outreach ([facility] ANN MARIE HILL ([id number]) 1940 F Date Time Provider Department 02/20/24 CARLA SCHULTZ [facility] During your visit today, we recorded the following information about you: Carla Schultz RN 02/20/2024 12:05 PM Signed AC JAMILAH RN Patient identified by name and date of . Reason for review or outreach: Chart Review Jamilah Priority Emergency Department Utilization ED DIAGNOSES/REASON(S) FOR ED USE: OTHER FINDINGS/SUMMARY: [facility] E.D. visit Attributed incorrectly Patient Attributed [...] RN - Fully Assessed Reason for Visit: [facility] JAMILAH RN [[id number]] Cmt: E.D. Utilization Review per Payer Request. Prescriptions as [...] Encounter Status:Closed by CARLA SCHULTZ on 02/20/24 [facility] 02-20-2024 History of Presen t illness [...] from Alzheimer's disease and currently resides at [facility] in [place]. She recently underwent surgery for a fractured hip. She has been wearing pessary (incontinence dish) but Christos is very opposed to continuing with these. She reports Ann Marie becomes extremely distressed with pelvic exams. The pessary was recently removed by general MOTION PICTURE EQUIPMENT MACHINIST. Christos strongly feels this a violation of [...] Michael is POA. Medical and Symptom History: MOTION PICTURE EQUIPMENT MACHINIST HISTORY: Last Pap: NA; Last Mammogram: Her [...] Reactions Yuli Inhibitors Unknown Ciprofloxacin Unknown Nitrofurantoin Mccracken* Itching Penicillins Hives Sulfa (Sulfonamide * Rash [...] PFSH and ROS obtained by others. Helio Goff, INGRID.PIG MACHINE OPERATOR Apprentice/Lineman offered: patient accepted computer bookkeeper Celine Olivo MA OBJECTIVE: BP 118/72 Ht [...] which included preparing to see the patient, [id number] patient care, completing clinical documentation, and counseling and educating the patient/family/caregiver. My final recommendations will be communicated back to the requesting physician by way of shared Medical record or letter via US mail. Helio Goff APRN.PIG MACHINE OPERATOR documented in this encounter [facility] 02-20-2024 History of Presen t illness Narrative ACM JAMILAH RN Patient identified by name and date of . Reason for review or outreach: Chart Review Jamilah Priority Emergency Department Utilization ED DIAGNOSES/REASON(S) FOR ED USE: OTHER FINDINGS/SUMMARY: [facility] E.D. visit Attributed incorrectly Patient Attributed To: QAE Payer: Mariana PERKINS Action Taken: No action needed Contact made with patient: No, Chart review only. Signature: Carla Schultz RN documented in this encounter [facility] 02-12-2024 Note [facility] 02-11-2024 Note [facility] 02-10-2024 Note [facility] 02-10-2024 Plan of care note Images from the original note were not included. [facility] Outpatient Parenteral Antimicrobial Therapy (OPAT) Start Form Patient Info Patient MRN Patient Name Address Date of [id number] Ann Marie Hill [address] [place] [address] 1940 Start Date 02/10/2024 Physician Group [facility] Diagnosis Group Diagnosis Genitourinary: Cystitis Micro-organism IV [...] In-person Address [address] [address] [facility] Work Phone: 02-10-2024 Miscellaneous Notes Images from the original note were not included. [facility] Outpatient Parenteral Antimicrobial Therapy (OPAT) Start Form Patient Info Patient MRN Patient Name Address Date of [id number] Ann Marie Hill [address] [place] [address] 1940 Start Date 02/10/2024 Physician Group [facility] Diagnosis Genitourinary: Cystitis Micro-organism IV [...] In-person Address [address] [place] [id number] documented in this encounter [facility] 02-10-2024 Note [facility] 02-09-2024 Note [facility] 02-09-2024 Note HNO ID: [id number] Author: LENA DEE APRN.PIG MACHINE OPERATOR Service: Orthopaedic Surgery Author Type: Nurse Practitioner Type: Plan of Care Filed: 02/09/2024 09:26 Note Text: Hypokalemia-mild -replace and repeat BMP at facility in 3 days [facility] 02-09-2024 Note [facility] 02-08-2024 Note [facility] 02-08-2024 Note [facility] 02-07-2024 Note [facility] 02-07-2024 Note [facility] 02[facility]06-2024 Note [facility] 02-06-2024 Note [facility] 02-06-2024 Note [facility] 02[facility]05-2024 Note [facility] 02-05-2024 Note [facility] 02-05-2024 Note [facility] 02-04-2024 Note [facility] 02-04-2024 Note [facility] 02-04-2024 Note [facility] 01-27-2024 Note Addended by: ZO BLACKMON on: 01/30/2024 11:34 AM Modules accepted: [facility] 01-27-2024 History of Presen t illness Narrative Images from the original note were not included. [facility] [address] [place] [address] Dept: [phone] Dept Loc: [phone] Subjective Ann Marie Hill is a 83 [...] 01/27/2024 12:25 PM documented in this encounter [facility] 01-27-2024 History of Presen t illness Narrative Images from the original note were not included. [facility] [address] [place] [address] Dept: [phone] Dept Loc: [phone] Subjective Ann Marie Hill is a 83 [...] 01/27/2024 12:25 PM documented in this encounter [facility] 01-27-2024 Miscellaneous Notes Addended by: ZO BLACKMON on: 01/30/2024 11:34 AM Modules accepted: Orders documented in this encounter [facility] 01-27-2024 Note Addended by: ZO BLACKMON on: 01/30/2024 11:34 AM Modules accepted: Orders [facility] 01-26-2024 History of Presen t illness Narrative Images from the original note were not included. [facility] [address] [place] [address] Dept: [phone] Dept Loc: [phone] Christelle Hill is a 83 y.o. year old [...] GAMAL Mohan 01/26/24 documented in this encounter [facility] 01-24-2024 Instructions Mayank Hanson MD - 01/24/2024 11:39 AM EDT Sling is for comfort only, may remove as desired. Weight bearing left upper extremity one pound. Active and active-assist range of motion left shoulder (may practice internal and external rotation and stop if painful; may practice touching face with left hand). No forced passive range of motion. documented in this encounter [facility] 01-24-2024 Note [facility] 01-24-2024 History of Presen t illness [...] initially managed conservatively; she was transferred to [facility] for placement admission and treated [...] 3 - Low documented in this encounter [facility] 01-17-2024 Miscellaneous Notes Images from the original [...] patient? She is willing to come to [facility] to be seen first and [...] ago, had an appointment with Rafia at [facility] that ended up being canceled. Dtr said pt is living at [facility] and would really like pt to see a provider at the [facility] as the facility is right by [facility] and easier for family to transport pt. If reason for call/escalation is discharge from ED/ER or Hospital, which facility was the patient seen at: [facility] Was an appointment scheduled (Y/N): N Person calling if other than patient: Christos Whitaker Return call to if other than patient: Christos Whitaker Best contact number: [phone] Thank you, Mora Mann January 08, 2024 8:08 AM documented in this encounter [facility] 01-01-2024 Note HNO ID: [id number] Author: AKI COOK MD Service: Hospital Medicine Author Type: Physician Type: Progress Notes Filed: 01/01/2024 07:45 Note Text: DEPARTMENT OF HOSPITAL MEDICINE PROGRESS NOTE SERVICE DATE: 01/01/2024 SERVICE TIME: 7:44 AM Hospital Medicine/Primary Attending: Aki Cook MD NIGHT AND WEEKEND COVERAGE: [employer] COVER[employer]: Days: [phone], please page attending physician. Nights: [phone], please page [facility] Night coverage pager [phone]. Subjective INTERVAL HPI: - No complaints this [...] -- 12/26/23 0000 activity - mobilize patient (va,or) VTE Prophylaxis: VTE prophylaxis appropriate Disposition: Extended Care Facility Plan of care discussed with Provider, RN, Patient SIGNATURE: Aki Cook MD PATIENT NAME: Ann Marie Hill DATE: December 31, 2023 TIME: 11:37 AM [facility] 12-31-2023 Note HNO ID: [id number] Author: AKI COOK MD Service: Hospital Medicine Author Type: Physician Type: Progress Notes Filed: 12/31/2023 11:37 Note Text: DEPARTMENT OF HOSPITAL MEDICINE PROGRESS NOTE SERVICE DATE: 12/31/2023 SERVICE TIME: 11:37 AM Hospital Medicine/Primary Attending: Aki Cook MD NIGHT AND WEEKEND COVERAGE: [employer]OVER[employer]: Days: [phone], please page attending physician. Nights: [phone], please page [facility] Night coverage pager [phone]. Subjective INTERVAL HPI: - No complaints this AM - Awaiting precert to [facility] Current Facility-Administered Medications Medication Dose Route [...] DATE: December 31, 2023 TIME: 11:37 AM [facility] 12-30-2023 Note HNO ID: [id number] Author: AKI COOK MD Service: Hospital Medicine Author Type: Physician Type: Progress Notes Filed: 12/30/2023 08:01 Note Text: DEPARTMENT OF HOSPITAL MEDICINE PROGRESS NOTE SERVICE DATE: 12/30/2023 SERVICE TIME: 7:58 AM Hospital Medicine/Primary Attending: Aki Cook MD NIGHT AND WEEKEND COVERAGE: [employer] COVERAGE: Days: [phone], please page attending physician. Nights: [phone], please page [facility] Night coverage pager [phone]. Subjective INTERVAL HPI: - No complaints this AM - Awaiting precert to [facility] Current Facility-Administered Medications Medication Dose Route [...] DATE: December 30, 2023 TIME: 7:58 AM [facility] 12-29-2023 Note HNO ID: [id number] Author: EVAN DE LA GARZA MD Service: Hospital Medicine Author Type: Physician Type: Progress Notes Filed: 12/29/2023 13:28 Note Text: DEPARTMENT OF HOSPITAL MEDICINE PROGRESS NOTE SERVICE DATE: 12/29/2023 SERVICE TIME: 8:21 AM Hospital Medicine/Primary Attending: Evan De La Garza MD NIGHT AND WEEKEND COVERAGE: [employer] COVERAGE: Nights: [phone], please page [facility] Night coverage pager [phone]. Reason for Admission: Fall with comminuted shoulder [...] prolapse and potential need for follow-up with uro-MOTION PICTURE EQUIPMENT MACHINIST Orthopedics-weightbearing as tolerated with left arm in a sling whenever she is not resting her arm on her lap at rest and to have active range of motion with her elbow and wrist and hand and follow-up check in 10 to 14 days-Call [phone] for appt. Consultants: Dr. Mckinney for orthopedics Dr. Nascimento for MOTION PICTURE EQUIPMENT MACHINIST PROCEDURES: NONE Disposition: Extended Care Facility - [facility] Recent Labs 12/29/23 0712/28/2316 12/27/23 0636 12/25/23 1835 WBC 7.97 9.76 9.91 11.71* RBC [...] 35 Recent Labs 12/29/23 0712/28/23 0516 12/27/23 06 GLUC 109* 120* 131* No results for input(s): LACT in the last 168 hours. Recent Labs 12/29/23 0712/28/23 0516 12/27/23 0637 BUN 25* 20 18 CREAT 0.79 0.77 [...] weeks ago Follow urine culture Daughter requesting MOTION PICTURE EQUIPMENT MACHINIST to see and evaluate her pessary and [...] Patient has multipl (more content not included)... [facility] 12-28-2023 Note HNO ID: [id number] Author: EVAN DE LA GARZA MD Service: Hospital Medicine Author Type: Physician Type: Progress Notes Filed: 12/28/2023 19:51 Note Text: DEPARTMENT OF HOSPITAL MEDICINE PROGRESS NOTE SERVICE DATE: 12/28/2023 SERVICE TIME: 7:23 PM Hospital Medicine/Primary Attending: Evan De La Garza MD NIGHT AND WEEKEND COVERAGE: [employer] COVERAGE: Nights: [phone], please page [facility] Night coverage pager [phone]. Reason for Admission: Fall with comminuted shoulder fracture, left INTERVAL HPI: Discussed pessary was for prolapse and potential need for follow-up with uro-MOTION PICTURE EQUIPMENT MACHINIST Orthopedics-weightbearing as tolerated with left arm in a sling whenever she is not resting her arm on her lap at rest and to have active range of motion with her elbow and wrist and hand and follow-up check in 10 to 14 days-Call [phone] for appt. Initial urine culture positive for lactobacillus likely contaminant and repeat culture is in progress CHECK LIST Goal for glucose 100-180 At goal Cultures negative thus far other than those noted:None Vital signs: Reviewed labs Problem list reviewed Medication list reviewed Reviewed new notes Probable discharge- ASSESSMENT/PLAN Consultants: Dr. Mckinney for orthopedics Dr. Nascimento for MOTION PICTURE EQUIPMENT MACHINIST PROCEDURES: NONE Disposition: Extended Care Facility [facility] Recent Labs 12/28/23 0516 12/27/23 0636 12/25/23 1835 WBC 9.76 9.91 11.71* RBC 4.15 4.22 4.25 HB 12.9 13.4 13.7 HCT 38.6 40.0 41.0 PLT 287 288 285 MCV 93.0 94.8 96.5 MCH 31.1 31.8 32.2 MPV 8.8* 9.0 8.7* ABSNEUT -- -- 9.22* NEUTP -- -- 78.6 LYMPHP -- -- 15.8 MONOP -- -- 5.0 EODINP -- -- 0.3 Recent Labs 12/28/23 0516 12/27/23 0637 12/25/23 1835 GLUC 120* 131* 216* NA 138 138 139 K 3.5* 3.6* 3.5* CHLOR 102 102 104 CO2 24 CREAT 0.77 0.69 0.98* BUN 20 18 29* ANION 10 12 11 CA 9.3 9.2 9.8 TPROT -- -- 7.9 ALB -- -- 4.5 TBILI -- -- 0.4 ALKPHOS -- -- 81 AST -- -- 27 ALT -- -- 35 Recent Labs 12/28/23 0516 12/27/23 0637 12/25/23 1835 GLUC 120* 131* 216* No results for input(s): LACT in the last 168 hours. Recent Labs 12/28/23 0516 12/27/23 0637 12/25/23 1835 BUN 29* CREAT 0.77 0.69 0.98* CA 9.3 [...] weeks ago Follow urine culture Daughter requesting MOTION PICTURE EQUIPMENT MACHINIST to see and evaluate her pessary and [...] H PRN albut (more content not included)... [facility] 12-27-2023 Note HNO ID: [id number] Author: CARLA SLAUGHTER DO Service: Hospital Medicine Author Type: Physician Type: Progress Notes Filed: 12/27/2023 13:11 Note Text: DEPARTMENT OF HOSPITAL MEDICINE PROGRESS NOTE SERVICE DATE: 12/27/2023 SERVICE TIME: 1:03 PM Hospital Medicine/Primary Attending: Carla Slaughter DO NIGHT AND WEEKEND COVERAGE: [employer] COVERAGE: Days: [phone], please page attending physician. Nights: [phone], please page [facility] Night coverage pager [phone]. Subjective INTERVAL HPI: seen in am. 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 Daughter requesting MOTION PICTURE EQUIPMENT MACHINIST to see and evaluate her pessary and [...] -- 12/26/23 0000 activity - mobilize patient (bude, oh) VTE Prophylaxis: VTE prophylaxis appropriate Disposition: To be determined Plan of care discussed with Provider, RN, Patient Plan communicated to: son at bedside SIGNATURE: Carla Slaughter DO PATIENT NAME: Ann Marie Hill DATE: December 26, 2023 TIME: seen in [facility] 12-27-2023 Miscellaneous Notes Arvin Morataya MD [...] me on 12/31 documented in this encounter [facility] 12-27-2023 Note HNO ID: [id number] Author: SUBHASH MADERA RN Service: Nursing Author Type: Registered Nurse Type: Nursing Progress Note Filed: 12/26/2023 22:00 Note Text: 2155: Dr. Mckinney in to see pt. [facility] 12-26-2023 Note HNO ID: [id number] Author: CARLA SLAUGHTER DO Service: Hospital Medicine Author Type: Physician Type: Progress Notes Filed: 12/26/2023 16:47 Note Text: DEPARTMENT OF [facility] MEDICINE PROGRESS NOTE SERVICE DATE: 12/26/2023 SERVICE TIME: 4:38 PM Hospital Medicine/Primary Attending: Carla Slaughter DO NIGHT AND WEEKEND COVERAGE: [employer] COVERAGE: Days: [phone], please page attending physician. Nights: [phone], please page [facility] Night coverage pager [phone]. Subjective INTERVAL HPI: seen in am. Pain [...] weeks ago Follow urine culture Daughter requesting MOTION PICTURE EQUIPMENT MACHINIST to see and evaluate her pessary and [...] -- 12/26/23 0000 activity - mobilize patient (va,oh) VTE Prophylaxis: VTE prophylaxis appropriate Disposition: To be determined Plan of care discussed with Provider, RN, Patient Plan commun (more content not included)... [facility] 12-26-2023 Note HNO ID: [id number] Author: DAVIS [place] RN Service: Nursing Author Type: Registered Nurse Type: Nursing Progress Note Filed: 12/26/2023 15:08 Note Text: Other: Other: Report given to JADA Chauhan. next shift RN to resume pt care. [facility] 12-25-2023 Miscellaneous Notes RQB. Patient coming to [facility] after fall with humerus fracture. Will pursue symptom control and placement. Dr. Mckinney made aware at 9:45 pm over phone with Dr. Goins documented in this encounter [facility] 07-19-2023 Evaluation + Plan note Diagnostic Tests PendingUrine Culture 07/19/23 [facility] 05-22-[address] - 05/22/2023 9:01 AM EDT [facility] FOLLOW UP NUTRITION INSTRUCTIONS Nutrition [...] Lionel Zero Pascha Recipes -Paleo Hot Chocolate: https://Sequ[employer]ia [employer].Cameo/vegan-hot -chocolate-paleo/ -Keto No Bake Brownie Bites: https://www.[employer].Cameo/keto -aj-awvb-omwozsd-bites/ -Whole Food Fudge: https://Traffic.cominisWearhaus.com/easy-raw -oxqoh-couqa-nucpc/ 2. Continue focus on the SEAMUS food plan principles previously discussed: -Flippin-3 Rich Fish (wild-caught salmon, mackerel, anchovies, sardines, rodrigues): twice per week -Continue grass-fed beef 3-4X/week -Add legumes 3-4X/week Three jamil salad recipe: https://NibiruTech Limited/class ui-sswoc-uqdd-salad/ -Add homemade vinaigrette coleslaw or green salad daily Vinegar based coleslaw: https://www.Specialized Tech/vine pma-vbvtc-ubjsmhlj/ -Continue nuts/seeds daily I.e. almonds, walnuts, pecans [...] Patient Folder. (Or you can go to https://Labochema.[facility]. org) 2. For nutrition related questions or concerns, GirlsAskGuys.comt message your physician and include Attn: Shelley Mitchell RD at the top of the message. [employer] messaging is meant to support implementation of [...] Supplements: Supplements can be ordered from the [facility]'s Online Store: https://store.[employer]. Cameo/#login New patients to the Healthy Living Shop will need to enter the provider code FUNCTIONAL to register their account. documented in this encounter [facility] 05-19-2023 Note HNO ID: [id number] Author: Christiana Montero MD Service: ? Author [...] OmegaGenics EPA-DHA 2400 (High Concentrate EPA/DHA liquid) (Molecule Software) Take one teaspoon (5 ml) 1 times daily with food UT Synergy ([employer]Mos [employer]) antibacterial Take 1 capsule by mouth twice daily. Brain Misael Capsules ([employer]os [employer]) Take 2 tablets by mouth w MEALS. 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 [...] Frustrate (more content not included)... [facility] 05-19-2023 Note HNO ID: [id number] Author: Shelley Mitchell RD Service: ? Author Type: Registered Dietitian Type: Progress Notes Filed: 05/22/2023 9:02 AM Note Text: [facility] Functional Medicine Nutrition Therapy: Follow-Up Assessment (Individual) IN PERSON Accompanied by her spouse today Patient Name: Ann Marie Hill Past Medical History: PAST MEDICAL HISTORY Diagnosis Date Alzheimer disease (HCC) HTN (hypertension) Allergies: Ciprofloxacin, Penicillins, and Sulfa (Sulfonamide Antibiotics) Current Medications/Supplements Current Outpatient Medications on File Prior to Visit Medication Sig PhytoMulti 60s capsules (Molecule Software) Take 2 capsules daily, with meals. Glycine (Pure Encapsulations) Take 1 capsule 3 times daily in divided doses between meals. (1 [id number]) B-Complex Plus (Pure Encapsulations) Take 1 capsule by mouth daily with food. Glutathione (SurDoc) Use 20 pumps daily (1000mg) divided doses [...] OmegaGenics EPA-DHA 2400 (High Concentrate EPA/DHA liquid) (Molecule Software) Take one teaspoon (5 ml) 1 times daily with food UT Synergy (IceMos Technology) antibacterial Take 1 capsule by mouth twice daily. Neuromag ( IceMos Technology ) 90 ct Take 3 capsules per [...] disturbance (HCC) [G30.1, F02.818] Provider Nutrition Notes:Per oil pipe inspector R41.3 Memory change (primary encounter diagnosis) F05 Sundowning E63.9 Poor diet Z77.098 Chemical exposure Status [...] recall updated below; some restaurant meals at [facility] (focuses on 'chicken and vegetables'); endorses fish consumption limited to 2X/month Current Adverse Reactions to Foods: previously avoiding wheat, dairy, sugar, grains; not strict with this now Subjective (12/01/21) Weight has been stable: 118-120 Would like more print outs today vs. Helicomm Subjective (08/06/21) -Daughter christos on line: states [...] L (more content not included)... [facility] 05-19-2023 Note Education ([facility]) ANN MARIE HILL ([id number]) 1940 F Date Time Provider Department 05/19/23 3:00 PM SHELLEY MITCHELL [facility] Reason for Visit: Established Patient [175] [...] capsules each day. - PhytoMulti 60s capsules (Molecule Software) Take 2 capsules daily, with meals. - Glycine (Pure Encapsulations) Take 1 capsule 3 times daily in divided doses between meals. (1 [id number]=171mp) - B-Complex Plus (Pure Encapsulations) Take 1 capsule by mouth daily with food. - Glutathione (SurDoc) Use 20 pumps daily (1000mg) divided doses [...] OmegaGenics EPA-DHA 2400 (High Concentrate EPA/DHA liquid) (Molecule Software) Take one teaspoon (5 ml) 1 times daily with food - UT Synergy (IceMos Technology) antibacterial Take 1 capsule by mouth twice daily. - Neuromag ( IceMos Technology ) 90 ct Take 3 capsules per [...] by SHELLEY MITCHELL on 05/22/23 [facility] 05-19-2023 Instructions Christiana Montero MD - 05/19/2023 4:36 PM EDT FUNCTIONAL MEDICINE PLAN: Keep diet low at this time with sugar / dairy / processed foods. Think of plasminogens for Alzheimer's www.Caviumrome.Cameo Synapsin - if wishing to use notify [...] cheese, dairy, whole grains, and eggs. The TECHNICIAN TRAINEE is 4.1 mg per kilogram of body weight or 1.9 mg per pound. Some high cysteine foods include: Soybeans, raw (609 mg per 1/2 cup) Oat bran, dry (541 mg per 1 cup) Pork ham, roasted (492 mg per 4 oz.) Tuna Fish, light, canned in oil, drained (456 mg per 1 cup) Chicken breast, cooked (444 mg per 4 oz.) Corinth breast, cooked (436 mg per 4 oz.) Beef angelo, cooked (408 mg per 4 oz.) Oat bran, cooked (217 mg per 1 cup) Egg, whole, raw, fresh (136 mg per 1 large egg) Larue seeds, oil roasted (113 mg per 1 oz.) Cashews, oil-roasted (104 mg per 1 oz.) Peanuts, oil roasted (95 mg per 1 oz.) Qatari cheese, diced (83 mg per 1 oz.) [...] cofactor for the production of glutathione. The TECHNICIAN TRAINEE value to maximize glutathione production in the [...] peppers may be beneficial Functional Nutrition: per mcat instructor Review and implement diet factors recommended through nutritional visit - use your health classroom technology coach for discussion on how to implement [...] We recommend ordering supplementation online from the [facility] as they are high quality therapeutic supplements. [facility] offers an easy to use, convenient way to order supplementation recommended by your provider through the [facility]. All of the products offered are considered high-quality, and adhere to specific criteria for quality and effectiveness including good manufacturing practices, use of clean products, free of fillers, binders, and other antigens. In addition, we follow third green party analysis for independent verification of active ingredients. Get started by following three easy steps: A. Visit the following webpage: [email or web address] Card.Rormix/ Retention Education Statements on this site have not been [...] For issues with your MRN please call [phone] Stress Management ProspectStream Neuro -new technology to use a wearable device to retrain brain and focus on nervous system reduction. To learn more of this technology by going to (lbu-nrz-iswnz) https://Hemenkiralik.com/ Please look into this Heart Rate Variability [...] one of the Heart Math booklets off Briabe Mobile that fits your 'go to' emotion - [...] fully) . --- Polyvagal theory (Connor Ybarra) https://www.Loandesk.Cameo/ --- Dynamic Neural Retraining System - (Ketty Hopper) https://retrainingtheCanpages.com/a chioie-hopper/ --- Frias Program - (John Frias) Https://[email or web address].[email or web address]/ Finding time for self (no multitasking) at this time to dedicate to breathing / relaxation process. Work on cultivating ted! documented in this encounter [facility] 05-19-2023 History of Presen t illness Narrative [...] OmegaGenics EPA-DHA 2400 (High Concentrate EPA/DHA liquid) (Molecule Software) Take one teaspoon (5 ml) 1 times daily with food UT Synergy (IceMos Technology) antibacterial Take 1 capsule by mouth twice daily. Brain Misael Capsules (IceMos Technology) Take 2 tablets by mouth w MEALS. Neuromag ( IceMos Technology ) 90 ct Take 3 capsules per day or as directed by a healthcare professional. Osiris 1265 (Integrative Therapeutics) sleep/calming/anxiety 1 at bedtime [...] diet to mix and match - cancelled mcat instructor visit due to not having NutrEval back. [...] Phenylacetic,Benzoic, DHPAA Detox Markers Yeast markers Citramalic Flippin 3 Index NOrmal Oxidative stress Lipid 9.7 8OHdg 11 Heavy metals Other Oxalate markers (glyceric, glycolic, oxalic) - all elevated Maritza Nutreval Jun 2020 High Need: Mod Need: All B's Amino acids: Malabsorption markers: Bacterial dysbiosis markers: Fungal dysbiosis markers:arabinose 55 Toxin/detox markers: high Flippin-3 Index: 4.3 Glutathione level:998 Lipid peroxides:8.5 Toxic [...] issues-loss Cognitive decline/brain fog- Alzheimer's ( paranoia)- Nemshari made her dizzy. 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 Think of plasminogens for Alzheimer's www.GFG Group Synapsin - if wishing to use notify [...] cheese, dairy, whole grains, and eggs. The TECHNICIAN TRAINEE is 4.1 mg per kilogram of body weight or 1.9 mg per pound. Some high cysteine foods include: Soybeans, raw (609 mg per 1/2 cup) Oat bran, dry (541 mg per 1 cup) Pork ham, roasted (492 mg per 4 oz.) Tuna Fish, light, canned in oil, drained (456 mg per 1 cup) Chicken breast, cooked (444 mg per 4 oz.) Corinth breast, cooked (436 mg per 4 oz.) Beef angelo, cooked (408 mg per 4 oz.) Oat bran, cooked (217 mg per 1 cup) Egg, whole, raw, fresh (136 mg per 1 large egg) Larue seeds, oil roasted (113 mg per 1 oz.) Cashews, oil-roasted (104 mg per 1 oz.) Peanuts, oil roasted (95 mg per 1 oz.) Qatari cheese, diced (83 mg per 1 oz.) [...] cofactor for the production of glutathione. The TECHNICIAN TRAINEE value to maximize glutathione production in the [...] peppers may be beneficial Functional Nutrition: per mcat instructor Review and implement diet factors recommended through nutritional visit - use your health classroom technology coach for discussion on how to implement [...] We recommend ordering supplementation online from the [facility] as they are high quality therapeutic supplements. [facility] offers an easy to use, convenient way to order supplementation recommended by your provider through the [facility]. All of the products offered are considered high-quality, and adhere to specific criteria for quality and effectiveness including good manufacturing practices, use of clean products, free of fillers, binders, and other antigens. In addition, we follow third green party analysis for independent verification of active ingredients. Get started by following three easy steps: A. Visit the following webpage: [email or web address] [email or web address]/ Retention Education Statements on this site have not been [...] For issues with your MRN please call [phone] Stress Management ProspectStream Neuro -new technology to use a wearable device to retrain brain and focus on nervous system reduction. To learn more of this technology by going to (kui-wxv-ixlpa) https://Hemenkiralik.com/ Please look into this Heart Rate Variability [...] one of the Heart Math booklets off Briabe Mobile that fits your 'go to' emotion - [...] fully) . --- Polyvagal theory (Connor Ybarra) https://www.Thing Labs/ --- Dynamic Neural Retraining System - (Ketty Christensen) https://retrMotif BioSciences/a lor-hopper/ --- Frias Program - (John Frias) Https://www.DearJaneptaLyft.Cameo/ Finding time for self (no multitasking) at this time to dedicate to breathing / relaxation process. Work on cultivating ted! Future Plans (for provider use): I spent a total of 45 minutes on the date of the service which included preparing to see the patient, tqan-wm-ppsv patient care, completing clinical documentation, obtaining and/or reviewing separately obtained history, performing a medically appropriate examination, and ordering medications, tests, or procedures. Christiana Montero MD documented in this encounter [facility] 05-19-2023 History of Presen t illness Narrative [facility] Nutrition Therapy: Follow-Up Assessment (Individual) IN PERSON Accompanied by her spouse today Patient Name: Ann Marie Hill Past Medical History: PAST MEDICAL HISTORY Diagnosis Date Alzheimer disease (HCC) HTN (hypertension) Allergies: Ciprofloxacin, Penicillins, and Sulfa (Sulfonamide Antibiotics) Current Medications/Supplements Current Outpatient Medications on File Prior to Visit Medication Sig PhytoMulti 60s capsules (Molecule Software) Take 2 capsules daily, with meals. Glycine (Pure Encapsulations) Take 1 capsule 3 times daily in divided doses between meals. (1 [id number]=064ym) B-Complex Plus (Pure Encapsulations) Take 1 capsule by mouth daily with food. Glutathione (SurDoc) Use 20 pumps daily (1000mg) divided doses [...] OmegaGenics EPA-DHA 2400 (High Concentrate EPA/DHA liquid) (Molecule Software) Take one teaspoon (5 ml) 1 times daily with food UT Synergy (IceMos Technology) antibacterial Take 1 capsule by mouth twice daily. Neuromag ( IceMos Technology ) 90 ct Take 3 capsules per [...] disturbance (HCC) [G30.1, F02.818] Provider Nutrition Notes:Per oil pipe inspector R41.3 Memory change (primary encounter diagnosis) F05 [...] recall updated below; some restaurant meals at [facility] (focuses on 'chicken and vegetables'); endorses fish consumption limited to 2X/month Current Adverse Reactions to Foods: previously avoiding wheat, dairy, sugar, grains; not strict with this now Subjective (12/01/21) Weight has been stable: 118-120 Would like more print outs today vs. Semtronics Microsystems resources Subjective (08/06/21) -Daughter christos on line: [...] Data Conventional/Advanced Testing NutrEval FMV Date collected: 10/31/2022 Elevated Decreased Oxidative Stress 7 8-OHdG Mitochondrial Dysfunction 7 Magnesium Lactic Acid Isocitric Acid Succinic Acid Malic Acid Flippin Imbalance 3 Toxic Exposure 8 Methylation Imbalance [...] with no refined sugar or dairy: Abdirizak Coronaa Hu Mandala Chocolate Honey Mama's Eating Evolved Lakanto Pure 7 Tia's Lionel Zero Pascha Recipes -Paleo Hot Chocolate: https://Sequoia Communications.Cameo/vegan-hot -chocolate-paleo/ -Keto No Bake Brownie Bites: https://www.e Health Access/keto -zy-udfv-wdltrvj-bites/ -Whole Food Fudge: https://Canvera Digital Technologies.com/easy-raw -safaj-vrxia-lkmxt/ 2. Continue focus on the SEAMUS food plan principles previously discussed: -Flippin-3 Rich Fish (wild-caught salmon, mackerel, anchovies, sardines, rodrigues): twice per week -Continue grass-fed beef 3-4X/week -Add legumes 3-4X/week Three jamil salad recipe: https://NibiruTech Limited/class lk-mmxwu-uttj-salad/ -Add homemade vinaigrette coleslaw or green salad daily Vinegar based coleslaw: https://www.Specialized Tech/vine ycz-bdjlz-soocmjkv/ -Continue nuts/seeds daily I.e. almonds, walnuts, pecans [...] idea below) Resources/Educational Materials Provided: sent through [facility] Adherence Potential to Goals/Care [...] Shelley Mitchell RD documented in this encounter [facility] 04-25-2023 Hospital Discharg e instructions Patient Education 04/25/2023 12:19:15 Urinary Tract Infection, Adult, Djcu-us-Gktj Urinary Tract Infection, Adult A urinary tract [...] Follow these instructions at home: Medicines Take vqgl-mey-vtfublw and prescription medicines only as told by [...] provider. Document Revised: 05/07/2021 Document Reviewed: 05/07/2021 CombineNet Patient Education 2022 Deep-Secure. Follow Up Care 08/08/2022 16:24:54 With:DANIEL BOYER, ELLEN Bell, URL Address: [address] [place] [address] When: Unknown [facility] 02-17-2023 Miscellaneous Notes NUTRITION RESOURCES SENT VIA [employer]. Evelyn Samuel LPN February 17, 2023 8:17 AM documented in this encounter [facility] 02-16-[address] Hernández RD - 02/16/2023 2:20 PM EDT [facility] FOLLOW UP NUTRITION INSTRUCTIONS Nutrition Follow-up: In 6 months with Kasey Hernández RD. Your Prescribed Nutrition Plan: Seamus (Gluten-Free) 1. Continue with Seamus Food Plan (Dairy-Free/Gluten-Free), with the following targets: -Flippin-3 Rich Fish (wild-caught salmon, mackerel, anchovies, sardines, rodrigues): twice per week -Continue grass-fed beef 3-4X/week -Add legumes 3-4X/week Three jamil salad recipe: https://NibiruTech Limited/class vj-iajmt-mwdo-salad/ -Add homemade vinaigrette coleslaw or green salad daily Vinegar based coleslaw: https://Teachable.Specialized Tech/vine zba-svbzl-tgedybgq/ -Continue nuts/seeds daily I.e. almonds, walnuts, pecans [...] soup idea below) 2. For bread, use Kofax Brand Base Culture: https://BloomReach/ (Keto bread near you in [place]) -Avoid starches, canola oil and sugars in [...] Functional Medicine Team (Open M-F 8am-5pm): 1. Dental Kidzhart is the BEST form of communication to reach the Functional Medicine Team, see test results and request refills. Please allow 72 business hours for a response. Directions for signing up are included in your New Patient Folder. (Or you can go to [email or web address]) 2. For nutrition related questions or concerns, Semtronics Microsystems message your physician and include Attn: Kasey Hernández RD at the top of the message. Semtron[employer] messaging is meant to support implementation of [...] Supplements: Supplements can be ordered from the [facility]'s Online Store: https://store.Atlas Genetics. Cameo/#login New patients to the Healthy Living Shop will need to enter the provider code FUNCTIONAL to register their account. documented in this encounter [facility] 02-15-2023 History of Presen t illness Narrative [facility] Functional [facility] Nutrition Therapy: Follow-Up Assessment (Individual) IN PERSON Patient Name: Ann Marie Hill Past Medical History: PAST MEDICAL HISTORY Diagnosis Date Alzheimer disease (HCC) HTN (hypertension) Allergies: Ciprofloxacin, Penicillins, and Sulfa (Sulfonamide Antibiotics) Current Medications/Supplements Current Outpatient Medications on File Prior to Visit Medication Sig PhytoMulti 60s capsules (Molecule Software) Take 2 capsules daily, with meals. Glycine (Pure Encapsulations) Take 1 capsule 3 times daily in divided doses between meals. (1 [id number]=888hy) B-Complex Plus (Pure Encapsulations) Take 1 capsule by mouth daily with food. Glutathione (SurDoc) Use 20 pumps daily (1000mg) divided doses [...] OmegaGenics EPA-DHA 2400 (High Concentrate EPA/DHA liquid) (Molecule Software) Take one teaspoon (5 ml) 1 times daily with food UT Synergy (IceMos Technology) antibacterial Take 1 capsule by mouth twice daily. Neuromag ( IceMos Technology ) 90 ct Take 3 capsules per [...] Would like more print outs today vs. Sem[employer] resources Subjective (08/06/21) -Daughter christos on line: [...] Acid Isocitric Acid Succinic Acid Malic Acid Flippin Imbalance 3 Toxic Exposure 8 Methylation Imbalance [...] Food Plan (Dairy-Free/Gluten-Free), with the following targets: -Flippin-3 Rich Fish (wild-caught salmon, mackerel, anchovies, sardines, rodrigues): twice per week -Continue grass-fed beef 3-4X/week -Add legumes 3-4X/week Three jamil salad recipe: https://NibiruTech Limited/class lj-sfsct-nnwo-salad/ -Add homemade vinaigrette coleslaw or green salad daily Vinegar based coleslaw: https://www.Specialized Tech/vine mcg-paoac-pgcsgadz/ -Continue nuts/seeds daily I.e. almonds, walnuts, pecans [...] bread, use Base Culture Brand Base Culture: https://BloomReach/ (Keto bread near you in [place]) -Avoid starches, canola oil and sugars in [...] Kasey Hernández RD documented in this encounter [facility] 02-03-2023 History of Presen t illness Narrative [...] OmegaGenics EPA-DHA 2400 (High Concentrate EPA/DHA liquid) (Molecule Software) Take one teaspoon (5 ml) 1 times daily with food UT Synergy (IceMos Technology) antibacterial Take 1 capsule by mouth twice daily. Brain Misael Capsules (IceMos Technology) Take 2 tablets by mouth w MEALS. 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 [...] Last Visit on March 2022 Provider Kvng Rowan What is the severity of your symptoms? [...] vitamin deficiency) at this time. Check with mcat instructor on how to improve - stressed importance [...] Phenylacetic,Benzoic, DHPAA Detox Markers Yeast markers Citramalic Flippin 3 Index NOrmal Oxidative stress Lipid 9.7 8OHdg 11 Heavy metals Other Oxalate markers (glyceric, glycolic, oxalic) - all elevated Maritza Nutreval Jun 2020 High Need: Mod Need: All B's Amino acids: Malabsorption markers: Bacterial dysbiosis markers: Fungal dysbiosis markers:arabinose 55 Toxin/detox markers: high Flippin-3 Index: 4.3 Glutathione level:998 Lipid peroxides:8.5 Toxic [...] , estradiol FUNCTIONAL MEDICINE PLAN: Meet with mcat instructor to review NutrEval (with Christos) due to [...] - use of 2 tablespoons of Galdamez Larue Lecithin Powder twice daily Consider Synapsin (compounded nasal spray) to assist for mood / anxiety - notify if wishing to consider. https://Viralize/article/m edication-compounding/rg3-synaps wr-mhtiu-umtcj-xibhw-sifito-lxlw g-fuw-qjpuielgs-memory-focus/ Stop the following: Brain Misael Lavella Multi t/d Stop the Functional Nutrition: per mcat instructor Review and implement diet factors recommended through nutritional visit - use your health classroom technology coach for discussion on how to implement [...] We recommend ordering supplementation online from the [facility] as they are high [...] other antigens. In addition, we follow third green party analysis for independent verification of active ingredients. Get started by following three easy steps: A. Visit the following webpage: https://PEX Card.Rormix/ Healthy Living Shop Statements on this site [...] For issues with your MRN please call [phone] Stress Management ProspectStream Neuro -new technology to use a wearable device to retrain brain and focus on nervous system reduction. To learn more of this technology by going to (lsl-ynq-pcnca) https://Hemenkiralik.com/ Please look into this Heart Rate Variability [...] one of the Heart Math booklets off Briabe Mobile that fits your 'go to' emotion - [...] fully) . --- Polyvagal theory (Connor Ybarra) https://www.Thing Labs/ --- Dynamic Neural Retraining System - (Ketty Hopper) https://retrainingRefocus Imaging.Cameo/a nnie-hopper/ --- Frias Program - (John Frias) Https://www.Malauzai Software/ Finding time for self (no multitasking) at this time to dedicate to breathing / relaxation process. Work on cultivating ted! Future Plans (for provider use): I spent a total of 45 minutes on the date of the service which included preparing to see the patient, mjhf-tx-rpxv patient care, completing clinical documentation, obtaining and/or reviewing separately obtained history, performing a medically appropriate examination, and ordering medications, tests, or procedures. Christiana Montero MD documented in this encounter [facility] 10-31-2022 History of Presen t illness Narrative [...] OmegaGenics EPA-DHA 2400 (High Concentrate EPA/DHA liquid) (Molecule Software) Take one teaspoon (5 ml) 1 times daily with food UT Synergy (IceMos Technology) antibacterial Take 1 capsule by mouth twice daily. Brain Misael Capsules (IceMos Technology) Take 2 tablets by mouth w MEALS. 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 [...] Fungal dysbiosis markers:arabinose 55 Toxin/detox markers: high Flippin-3 Index: 4.3 Glutathione level:998 Lipid peroxides:8.5 Toxic [...] daylight exposure (Circadian) rhythm. Functional Nutrition: per mcat instructor Review and implement diet factors recommended through nutritional visit - use your health classroom technology coach for discussion on how to implement [...] We recommend ordering supplementation online from the [facility] as they are high quality therapeutic supplements. [facility] offers an easy to use, convenient way to order supplementation recommended by your provider through the [facility]. All of the products offered are considered high-quality, and adhere to specific criteria for quality and effectiveness including good manufacturing practices, use of clean products, free of fillers, binders, and other antigens. In addition, we follow third green party analysis for independent verification of active ingredients. Get started by following three easy steps: A. Visit the following webpage: https://PEX Card.Rormix/ Retention Education Statements on this site have not been [...] For issues with your MRN please call [phone] Stress Management ProspectStream Neuro -new technology to use a wearable device to retrain brain and focus on nervous system reduction. To learn more of this technology by going to (wmt-tin-wmlph) https://Hemenkiralik.com/ Please look into this Heart Rate Variability [...] one of the Heart Math booklets off Briabe Mobile that fits your 'go to' emotion - [...] fully) . --- Polyvagal theory (Connor Ybarra) [email or web address] --- Dynamic Neural Retraining System - (Ketty Christensen) [email or web address] --- Frias Program - (John Frias) [email or web address]://[email or web address] Finding time for self (no multitasking) at this time to dedicate to breathing / relaxation process. Work on cultivating ted! Future Plans (for provider use): 1. GI Effects? 2. ANDREAFSKI Metals? I spent a total of 30 minutes on the date of the service which included preparing to see the patient, havp-it-zypz patient care, completing clinical documentation, obtaining and/or reviewing separately obtained history, performing a medically appropriate examination, counseling and educating the patient/family/caregiver, ordering medications, tests, or procedures, and communicating with other HCPs (not separately reported). Christiana Montero MD documented in this encounter [facility] 10-28-2022 Miscellaneous Notes Spoke with patient's regarding NE urine collection for Monday's lab appointment. Evelyn Samuel LPN October 28, 2022 12:17 PM documented in this encounter [facility] 10-06-2022 Note PROCEDURE: XR HIP RT 2 [...] by: ALEXIS CAAL Date: 2022-10-06 07:37 [facility] 10-06-2022 Note PROCEDURE: XR HIP RT [...] authenticated by: ALEXIS CAAL Date: 2022-10-06 07:37 [facility] 08-08-2022 Hospital Discharg e instructions [...] Treatment for this condition includes: Antibiotic medicine. Nbqt-oww-npzowdz medicines to treat discomfort. Drinking enough water [...] Follow these instructions at home: Medicines Take fqio-hpj-fqrcbvh and prescription medicines only as told by [...] 07/05/2006 Document Revised: 09/12/2019 Document Reviewed: 04/04/2019 CombineNet Patient Education 2020 Deep-Secure. Follow Up Care 01/31/2022 15:18:00 With:GENO WATTS, Kunal Heller, URL Address: [facility] [address], [place] [address]- [phone] When:04/08/2023 [facility] 07-25-2022 Instructions Christiana Montero MD - 07/25/2022 12:38 PM EDT FUNCTIONAL MEDICINE PLAN: Mold testing - will review in coming days your recent test to determine if binders are beneficial at this time. I may recommend use of binder (remove of mold) depending on testing. NutrEval - will send to your residence. (TASCET blood/urine kit to assess for nutritional stores)---> [...] as nutritional evaluation) . Functional Nutrition: Per Coding Coordinator Review and implement diet factors recommended through nutritional visit - use your health classroom technology coach for discussion on how to implement Supplement Support Review supplements - Based upon your lab assessments we may further recommend you consider additional items to these to supplement. No orders of the defined types were placed in this encounter. REMINDERS: Ordering Supplementation: We recommend ordering supplementation online from the [facility] [employer] Living Shop. It is felt these are high quality therapeutic supplements. Retention Education (https://PEX Card.Léa et Léo) [facility] offers an easy to use, convenient way to order supplementation recommended by your provider through the Redknee Shop. All of the products offered are considered high-quality, and adhere to specific criteria for quality and effectiveness including good manufacturing practices, use of clean products, free of fillers, binders, and other antigens. In addition, we follow third green party analysis for independent verification of active ingredients. Get started by following three easy steps: A. Visit the webpage: [email or web address].[email or web address]/ Retention Education Statements on this site have not been [...] For issues with your MRN please call [phone] Stress Management ProspectStream Neuro -new technology to use a wearable device to retrain brain and focus on nervous system reduction. To learn more of this technology by going to (bxz-grc-uxykc) [email or web address]/ Behavioral Health Therapist: If I recommended counseling [...] one of the Heart Math booklets off Briabe Mobile that fits your 'go to' emotion - [...] Eduardo Gordon. (also has an poncho on Ixsystems / Lightwaves) Insight Meditation Timer- (Free)-Great all-around poncho to [...] lor-grace/ --- Frias Program - (John Frias) Https://[email or web address]/ Finding time for yourself (no multitasking) at this time to dedicate to breathing / relaxation process. Work on cultivating ted! You deserve it! documented in this encounter [facility] 07-25-2022 History of Presen t illness Narrative [...] saccharomyces boullardi 2 hrs away from nystatin/candibactin/diflucan. Yjuy-Zawl-OL (ShowMe.tv) Take 1 capsule, 2 times daily with 4 oz or more of water. Glutathione (SurDoc) - Liver support/detox Use 8 pumps daily , divided doses through out the day. (2 pumps = 100 mg Glutathione). Work up slowly to the higher dose. B-Complex Plus (Pure Encapsulations) Take 2 capsules by mouth daily with food. Multi t/d 60 ct. (Pure Encapsulations) - multivitamin Take 1 capsule by mouth twice daily with meals. OmegaGenics EPA-DHA 2400 (High Concentrate EPA/DHA liquid) (Molecule Software) Take one teaspoon (5 ml) 1 times daily with food UT Synergy (IceMos Technology) antibacterial Take 1 capsule by mouth twice daily. Brain Misael Capsules (IceMos Technology) Take 2 tablets by mouth w MEALS. Neuromag ( IceMos Technology ) 90 ct Take 3 capsules per [...] NutrEval - will send to your residence. (TASCET blood/urine kit to assess for nutritional stores)---> [...] as nutritional evaluation) . Functional Nutrition: Per Coding Coordinator Review and implement diet factors recommended through nutritional visit - use your health classroom technology coach for discussion on how to implement Supplement Support Review supplements - maintain your B support at this time and Brain Misael only. Wait on Multivitamin until you have completed NutrEval for 2021. REMINDERS: Ordering Supplementation: We recommend ordering supplementation online from the [facility] [employer] Shop. It is felt these are high quality therapeutic supplements. Retention Education (https://PEX Card.Léa et Léo) [facility] offers an easy to use, convenient way to order supplementation recommended by your provider through the Retention Education. All of the products offered are considered high-quality, and adhere to specific criteria for quality and effectiveness including good manufacturing practices, use of clean products, free of fillers, binders, and other antigens. In addition, we follow third green party analysis for independent verification of active ingredients. Get started by following three easy steps: A. Visit the webpage: [email or web address].[email or web address]/ Retention Education Statements on this site have not been [...] For issues with your MRN please call [phone] Stress Management ProspectStream Neuro -new technology to use a wearable device to retrain brain and focus on nervous system reduction. To learn more of this technology by going to (wcp-tmp-swwav) [email or web address]/ Behavioral Health Therapist: If I recommended counseling [...] one of the Heart Math booklets off Briabe Mobile that fits your 'go to' emotion - [...] has an poncho on Apple / Google [place]as) Insight Meditation Timer- (Free)-Great all-around poncho to [...] fully) . --- Polyvagal theory (Connor Ybarra) [email or web address] --- Dynamic Neural Retraining System - (Ketty Christensen) [email or web address] --- Frias Program - (John Cookpta) Https://[email or web address]/ Finding time for yourself (no multitasking) at this time to dedicate to breathing / relaxation process. Work on cultivating ted! You deserve it! I spent a total of 60 minutes on the date of the service which included preparing to see the patient, ckrx-je-gtnb patient care, completing clinical documentation, obtaining and/or reviewing separately obtained history, counseling and educating the patient/family/caregiver, ordering medications, tests, or procedures, independently interpreting results (not separately reported), and communicating results to the patient/family/caregiver. Christiana Montero MD documented in this encounter [facility] 03-18-2022 Instructions Evita Calderon MD - 03/18/2022 [...] encounter. I recommend the supplements from the [facility] Qire Online Store at [email or web address].[email or web address]/ as we have thoroughly evaluated the research and use only highest quality supplements. Please use code: functional. Future Plans: Mold Memory Follow up: Please schedule a follow up visit with the following Caregivers: Provider: [address] Montero in person LIFESTYLE PRESCRIPTION Functional Nutrition: Per oil pipe inspector Sleep: Sleep goal for most adults is [...] Health Coaching: Please consider scheduling with our [place] [facility] health coaches for a phone or virtual visit for accountability, goal setting and help with behavior size changer the next 6-8 weeks to be successful with your goals. [phone]. Smart phone apps to begin a meditative [...] on your diet plan discussed with our oil pipe inspector, allowing for gentle detoxification and decreasing inflammation - while we are gathering your lab results and combining those with your complete history to formulate a very personalized treatment plan. LAB results: Due to the complexity of the testing performed, we are not able to review labs via Semtronics Microsystems or over the phone, but please know, [...] Also make sure to schedule with the oil pipe inspector (this will not happen automatically) as you [...] appointment. You can access them on the TASCET website and it can be beneficial if you review them prior to your next visit. [email or web address]. Read about NutrEval if this was ordered. documented in this encounter [facility] 03-18-2022 History of Presen t illness Narrative [...] saccharomyces boullardi 2 hrs away from nystatin/candibactin/diflucan. Cnaa-Losg-KO (OxiCool Research Labs) Take 1 capsule, 2 times daily with 4 oz or more of water. Glutathione (SurDoc) - Liver support/detox Use 8 pumps daily , divided doses through out the day. (2 pumps = 100 mg Glutathione). Work up slowly to the higher dose. B-Complex Plus (Pure Encapsulations) Take 2 capsules by mouth daily with food. Multi t/d 60 ct. (Pure Encapsulations) - multivitamin Take 1 capsule by mouth twice daily with meals. OmegaGenics EPA-DHA 2400 (High Concentrate EPA/DHA liquid) (Molecule Software) Take one teaspoon (5 ml) 1 times daily with food UT Synergy (IceMos Technology) antibacterial Take 1 capsule by mouth twice daily. Brain Misael Capsules (IceMos Technology) Take 2 tablets by mouth w MEALS. Neuromag ( IceMos Technology ) 90 ct Take 3 capsules per [...] 22.31 kg/(m^2). Bioelectrical Impedance Analysis Results by Xenoport. Recent Results from: 03/18/22 at 13:34 PM [...] Fungal dysbiosis markers:arabinose 55 Toxin/detox markers: high Flippin-3 Index: 4.3 Glutathione level:998 Lipid peroxides:8.5 Toxic [...] encounter. I recommend the supplements from the [facility] Healthy Living Store Online Store at https://store.Atlas Genetics. Cameo/ as we have thoroughly evaluated the research and use only highest quality supplements. Please use code: functional. Future Plans: Follow up: Please schedule a follow up visit with the following Caregivers: Provider: [address] Montero in person LIFESTYLE PRESCRIPTION Functional Nutrition: Per oil pipe inspector Sleep: Sleep goal for most adults is [...] Health Coaching: Please consider scheduling with our [place] [facility] health coaches for a phone or virtual visit for accountability, goal setting and help with behavior size changer the next 6-8 weeks to be successful with your goals. [phone]. Smart phone apps to begin a meditative [...] on your diet plan discussed with our oil pipe inspector, allowing for gentle detoxification and decreasing inflammation - while we are gathering your lab results and combining those with your complete history to formulate a very personalized treatment plan. LAB results: Due to the complexity of the testing performed, we are not able to review labs via GirlsAskGuys.comt or over the phone, but please know, [...] Also make sure to schedule with the oil pipe inspector (this will not happen automatically) as you [...] appointment. You can access them on the TASCET website and it can be beneficial if you review them prior to your next visit. [email or web address]. Read about NutrEval if this was ordered. *Evita Calderon MD I spent a total of 30 minutes on the date of the service which included gdak-ls-ueia patient care, completing clinical documentation, obtaining and/or reviewing separately obtained history, performing a medically appropriate examination, counseling and educating the patient/family/caregiver and ordering medications, tests, or procedures. documented in this encounter [facility] 03-02-2022 Instructions EMMA Smalls - 03/02/2022 11:40 [...] in more information, contact our office at [phone]. We are happy to hear that Orestes [...] providers located near your home: Sarah Morataya OUTSIDE PRODUCTION INSPECTOR & Adriana Andrews OUTSIDE PRODUCTION INSPECTOR [facility], [address] [facility]. ([phone]). When there is a diagnosis of dementia, no matter the type, we encourage families to educate themselves, learn communication tips, and learn ways to adjust expectations over time. There are many resources available online. Three excellent resources are: The Alzheimer's Association (web site: alz.org/corado) available 24 hours a day, 7 days per week. Contact: Local: ; Toll free: [phone] We recommend family explore the Alzheimer's Association website to learn more about managing behavioral symptoms. You can click on the following tabs to gather more information on managing specific behaviors. Click on HELP AND SUPPORT -> CAREGIVING -> STAGES AND BEHAVIOR Family Caregiver Joy (web site: Caregiver.org) JAIRMaría Roman-- a secure online solution for quality information, support, and resources for family caregivers. Contact: Toll-free number: [phone] Alzheimers.gov Find Alzheimer disease and related dementias [...] is needed, please call our social media marketing analyst EMMA Smalls at [phone]. As per our discussion of advanced directives, we understand you have these documents in place which is excellent. We have obtained a copy that will be scanned into your medical record. We would like you to return to [facility] for a follow up visit in 9-12 months. Our office can be reached by calling [phone] Option 1. Sincerely, MD Philomena Hampton RN Tangy Kirtz, RMA Miranda Falso, LISW documented in this encounter [facility] 03-02-2022 Nurse Note Ann Marie Hill is a 81 year old year old right handed woman Accompanied by: spouse. 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 Pt states that she is here for a check-up Vital Signs: BP 115/53 (BP Site: Left Arm, BP Position: Sitting, BP Cuff Size: Regular Adult) Pulse 75 Wt 56.6 kg (124 lb 12.8 oz) BMI 22.83 kg/m Philomena Mondragon RN documented in this encounter [facility] 03-02-2022 History of Presen t illness Narrative Reason for Consult: Alzheimer's dementia I had the pleasure of seeing this 81 year old year old female at the [facility]. The patient is referred by Evita Clemons [place] [phone] Patient is accompanied by and information obtained [...] other two sons live in [place] and [place]). Housing: Lives with spouse Pt is occasionally [...] saccharomyces boullardi 2 hrs away from nystatin/candibactin/diflucan. Iexh-Rdqo-AY (ShowMe.tv) Take 1 capsule, 2 times daily with 4 oz or more of water. Glutathione (SurDoc) - Liver support/detox Use 8 pumps daily , divided doses through out the day. (2 pumps = 100 mg Glutathione). Work up slowly to the higher dose. B-Complex Plus (Pure Encapsulations) Take 2 capsules by mouth daily with food. Multi t/d 60 ct. (Pure Encapsulations) - multivitamin Take 1 capsule by mouth twice daily with meals. OmegaGenics EPA-DHA 2400 (High Concentrate EPA/DHA liquid) (Molecule Software) Take one teaspoon (5 ml) 1 times daily with food UT Synergy (IceMos Technology) antibacterial Take 1 capsule by mouth twice daily. Brain Misael Capsules (IceMos Technology) Take 2 tablets by mouth w MEALS. Neuromag ( IceMos Technology ) 90 ct Take 3 capsules per [...] which included preparing to see the patient, xqqd-fx-lgjk patient care, performing a medically appropriate examination, completing clinical documentation, and on counseling/ eductaing the patient and the family. Han Britton MD documented in this encounter [facility] 01-31-2022 Hospital Discharg e instructions Patient Education [...] reconstructed. Follow these instructions at home: Take cwek-epi-gzcnbxy and prescription medicines only as told by [...] 10/21/2016 Document Revised: 05/08/2019 Document Reviewed: 05/08/2019 CombineNet Patient Education 2020 Deep-Secure. Follow Up Care 08/02/2021 15:26:51 With:GENO WATTS, Kunal Heller, URL Address: [facility] [address] , [place] [address]- [phone] When: Unknown [facility] Evaluation + Plan note Future Appointments Appointment Date:08/08/2022 02:45:00 PM Scheduled Provider:Kunal LORA MD [facility] Appoint[facility] Type:URO Office Visit [facility] Evaluation + Plan note Future Appointments Appointment Date:08/10/2022 08:45:00 AM Scheduled Provider: Location:[facility] Appointment Type:URO Nurse Visit Appointment Date:04/17/2023 02:30:00 PM Scheduled Provider:Kunal LORA MD Location:[facility] Appointment Type:URO Office Visit [facility] Evaluation + Plan note Future Appointments Appointment Date:04/17/2023 02:30:00 PM Scheduled Provider:Kunal LORA MD Location:[facility] Appointment Type:URO Office Visit [facility] Evaluation + Plan note Future Appointments Appointment Date:04/24/2023 02:15:00 PM Scheduled Provider:Kunal LORA MD Location:[facility] Appointment Type:URO Office Visit [facility] Evaluation note Diagnosis Cognitive communication deficit- Primary Alzheimer's dementia with behavioral disturbance, unspecified timing of dementia onset (HCC) documented in this encounter [facility] note* Diagnosis 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 documented in this encounter [facility] note* Diagnosis 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 Alzheimer's dementia with behavioral disturbance, unspecified timing of dementia onset documented in this encounter [facility] note* Diagnosis Memory change- Primary Memory loss Subclinical hypothyroidism Other specified acquired hypothyroidism Hypertension, unspecified type Hyperlipidemia, unspecified hyperlipidemia type 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 Impaired nutrient utilization Sleepiness Other alteration of consciousness Mold exposure Contact with and (suspected) exposure to mold On statin therapy On beta alexandria at home documented in this encounter [facility] note* Diagnosis Memory change- Primary Memory loss Subclinical hypothyroidism Other specified acquired hypothyroidism 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 Impaired nutrient utilization 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) [facility] Diagnosis 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 Unspecified vitamin B deficiency Chemical exposure Contact with and (suspected) exposure to other potentially hazardous chemicals Poor diet Unspecified nutritional deficiency Impaired nutrient utilization [facility]* Diagnosis 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 Unspecified vitamin B deficiency Poor diet Unspecified nutritional deficiency Dietary counseling and surveillance Dietary surveillance and counseling [facility]* Diagnosis Memory change- Primary Memory loss Sundowning Reactive confusion Poor diet Unspecified nutritional deficiency Chemical exposure Contact with and (suspected) exposure to other potentially hazardous chemicals [facility] [place] [facility]* Diagnosis 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 Sundowning Reactive confusion Dietary counseling and surveillance Dietary surveillance and counseling [facility] [place] [facility]* Diagnosis Carotid stenosis, bilateral Occlusion and stenosis of carotid artery without mention of cerebral infarction Benign hypertension Essential hypertension, benign documented in this encounter [facility] Work Phone: Evaluation note* Diagnosis Carotid stenosis, bilateral Occlusion and stenosis of carotid artery without mention of cerebral infarction Benign hypertension Essential hypertension, benign documented in this encounter [facility] Work Phone: Evaluation note* Diagnosis Other closed displaced fracture of proximal end of left humerus, initial encounter- Primary documented [facility]* Diagnosis Dysuria- Primary [facility] [place] [facility] Diagnosis Acute cystitis without hematuria- Primary Dysuria [facility] [place] [facility]* Diagnosis Acute cystitis without hematuria- Primary Dysuria [facility] [place] [facility]* Diagnosis Female genital prolapse, unspecified type- Primary Incomplete bladder emptying Recurrent UTI Urinary tract infection, site not specified [facility] [place] [facility]* Diagnosis History of left hip hemiarthroplasty- Primary Other closed displaced fracture of proximal end of left humerus with routine healing, subsequent encounter [facility] Abnormal finding of diagnostic imaging- Primary Other nonspecific (abnormal) findings on radiological and other examinations of body structure [facility] Diagnosis Other closed displaced fracture of proximal end of left humerus with routine healing, subsequent encounter- Primary History of left hip hemiarthroplasty [facility]* Patient is here [...] reviewed with her her recent lab work -[facility] 250 DO Work Phone: History of [...] me change in cardiac status or symptoms [facility] 250 DO Work Phone: History of [...] try to retrieve her recent lab work -[facility] 250 DO Work Phone: Hospital course Narrative No data available for this section [facility] Hospital Discharge instructions No data available for this section [facility] progress note No data available for this section [facility] reason for referral (narrative)* Diagnostic Procedure Only (Routine) - Pending Review Specialty Diagnoses / Procedures Referred By Toña cedillo Referred To Contact XR IMAGING Diagnoses Other closed displaced fracture of proximal end of left humerus, initial encounter Procedures XR SHOULDER LIMITED 2V AP/TRUE AP LEFT RADEX SHOULDER COMPLETE MINIMUM 2 VIEWS Mayank Hanson MD [address] [place] [address] [place] [address] Referral ID Status Reason Start Date Expiration Date Visits Requested Visits Authorized [id number] Pending Review Auto-Generat ed Referral 01/24/2024 02/22/2025 [address] [facility] for referral (narrative)* Diagnostic Procedure Only (Routine) - Pending Review Specialty Diagnoses / Procedures Referred By Toña cedillo Referred To Contact XR IMAGING Diagnoses Other closed displaced fracture of proximal end of left humerus with routine healing, subsequent encounter Procedures XR SHOULDER LIMITED 2V AP/TRUE AP LEFT RADEX SHOULDER COMPLETE MINIMUM 2 VIEWS Mayank Hanson MD [address] [place] [address] [place] [address] Referral ID Status Reason Start Date Expiration Date Visits Requested Visits Authorized [id number] Pending Review Auto-Generat ed Referral 02/21/2024 03/22/2025 1 1 [facility] Summary Purpose Family History No Family History [...] FoundDocuments on File Type Date Recorded Patient Cardiac Cath Lab Radiology Technologist Expl anation Advance Directive(s) 03/02/2022 2:05 PM Ad torres Directive Documents on File Type Date Recorded Patient Cardiac Cath Lab Radiology Technologist Expl anation Advance Directive(s) 03/02/2022 2:05 PM Ad torres Directive Date Activated Date Inactivated Comments 12/26/2023 12:01 AM Question Answer Comments DNR Order Discussed With: Surrogate Decision Renny er Surrogate Decision Maker Name: Daughter Christos Date Activated Date Inactivated Comments 12/25/2023 11:54 PM 12/26/2023 12:01 AM Question Answer Comments Full Code Order Discussed With: Patient Documents on File Type Date Recorded Patient Cardiac Cath Lab Radiology Technologist Expl anation Advance Directive(s) 01/03/2024 2:21 PM Advance Directive(s) 03/02/2022 2:05 PM Ad torres Directive Date Activated Date Inactivated Comments 12/26/2023 12:01 AM 01/01/2024 8:27 PM Documents on File Type Date Recorded Patient Cardiac Cath Lab Radiology Technologist Expl anation Advance Directive(s) 01/03/2024 2:21 PM Advance Directive(s) 03/02/2022 2:05 PM Ad torres Directive Date Activated Date Inactivated Comments 12/26/2023 12:01 AM 01/01/2024 8:27 PM Question Answer Comments DNR Order Discussed With: Surrogate Decision [facility] er Surrogate Decision Maker Name: Sherman Sarabia Date Activated Date Inactivated Comments 12/25/2023 11:54 PM 12/26/2023 12:01 AM Question Answer Comments Full Code Order Discussed With: Patient Date Activated Date Inactivated Comments 02/03/2024 5:01 PM Question Answer Comments DNR Order Discussed With: Surrogate Decision [facility] er Date Activated Date Inactivated Comments 12/26/2023 12:01 AM 01/01/2024 8:27 PM Question Answer Comments DNR Order Discussed With: Surrogate Decision [facility] er Surrogate Decision Maker Name: Sherman Sarabia Date Activated Date Inactivated Comments 12/25/2023 11:54 PM 12/26/2023 12:01 AM Question Answer Comments Full Code Order Discussed With: Patient Date Activated Date Inactivated Comments 02/03/2024 5:01 PM 02/12/2024 9:08 PM Date Activated Date Inactivated Comments 02/03/2024 5:01 PM 02/12/2024 9:08 PM Question Answer Comments DNR Order Discussed With: Surrogate Decision [facility] er Date Activated Date Inactivated Comments 12/26/2023 12:01 AM 01/01/2024 8:27 PM Question Answer Comments DNR Order Discussed With: Surrogate Decision [facility] er Surrogate Decision Maker Name: Sherman Sarabia Date [...] duplex bilateral Mary Anne Snow MD [address] [facility] [address], [address] [address] Referral ID Status Reason Start Date Expiration Date Visits Requested Visits Authorized [id number] Authorized Perform Procedure 06/25/2023 12/22/2023 1 1 Specialty Diagnoses / Procedures Referred By Toña t Referred To Contact Psychiatry / ADULT PSYCHIATRY Diagnoses Alzheimer's dementia with behavioral disturbance, unspecified timing of dementia onset Procedures CONSULT TO PSYCHIATRY OFFICE/OUTPATIENT [facility] 60-74 MINUTES Evita Calderon MD [address] [place] [address] Hemal Hopper MD [facility] [place] [address] Referral ID Status Reason Start Date Expiration Date Visits Requested Visits Authorized [id number] Pending Review PCP Requested Referral 06/17/2022 06/17/2023 1 1 Specialty Diagnoses / Procedures Referred By Toña cedillo Referred To Contact [facility] Diagnoses Cognitive communication deficit Procedures CONSULT TO SPEECH THERAPY OFFICE/OUTPATIENT [facility] 60-74 MINUTES Han Britton MD [address] [place] [address] [facility] [place] [address] Referral ID Status Reason Start Date Expiration Date Visits Requested Visits Authorized [id number] Pending Review Auto-Generat ed Referral 03/02/2022 03/02/2023 1 1 Additional Source Comments INFORMATION SOURCE (unrecogn ized section and content) DATE CREATED AUTHOR 04/03/2018 [facility] DATE CREATED AUTHOR AUTHOR'S ORGANIZ ATION 06/25/2020 [facility] DATE CREATED AUTHOR AUTHOR'S ORGANIZ ATION 11/07/2022 [facility] DATE CREATED AUTHOR AUTHOR'S ORGANIZ ATION 06/07/2023 [facility] DATE CREATED AUTHOR AUTHOR'S ORGANIZ ATION 06/07/2023 [employer] DATE CREATED AUTHOR AUTHOR'S ORGANIZ ATION 07/23/2023 Louie Batemanus [facility] Center DATE CREATED AUTHOR AUTHOR'S ORGANIZ ATION 09/22/2023 [facility] EPIC DATE CREATED AUTHOR AUTHOR'S ORGANIZ ATION 01/12/2024 [facility] DATE CREATED AUTHOR AUTHOR'S ORGANIZ ATION 01/30/2024 [facility] DATE CREATED AUTHOR AUTHOR'S ORGANIZ ATION 02/29/2024 [facility] DATE CREATED AUTHOR AUTHOR'S ORGANIZ ATION 07/13/2024 [facility] Source Comments (unrecognize d section and content) In the event this informatio n is protected by the Federal Confidentiality of Alcohol and Drug Abuse Patient Records regulations: The Federal rules restrict any use of the information to criminally investigate or prosecute any alcohol or drug abuse patient.[facility] RehabilitationIn the event this information is protected by the Federal Confidentiality of Alcohol and Drug Abuse Patient Records regulations: The Federal rules restrict any use of the information to criminally investigate or prosecute any alcohol or drug abuse patient.[facility] RehabilitationIn the event this information is protected by the Federal Confidentiality of Alcohol and Drug Abuse Patient Records regulations: The Federal rules restrict any use of the information to criminally investigate or prosecute any alcohol or drug abuse patient.[facility] RehabilitationIn the event this information is protected by the Federal Confidentiality of Alcohol and Drug Abuse Patient Records regulations: The Federal rules restrict any use of the information to criminally investigate or prosecute any alcohol or drug abuse patient.[facility] RehabilitationIn the event this information is protected by the Federal Confidentiality of Alcohol and Drug Abuse Patient Records regulations: The Federal rules restrict any use of the information to criminally investigate or prosecute any alcohol or drug abuse patient.[facility] RehabilitationIn the event this information is protected by the Federal Confidentiality of Alcohol and Drug Abuse Patient Records regulations: The Federal rules restrict any use of the information to criminally investigate or prosecute any alcohol or drug abuse patient.[facility] RehabilitationIn the event this information is protected by the Federal Confidentiality of Alcohol and Drug Abuse Patient Records regulations: The Federal rules restrict any use of the information to criminally investigate or prosecute any alcohol or drug abuse patient.[facility] RehabilitationIn the event this information is protected by the Federal Confidentiality of Alcohol and Drug Abuse Patient Records regulations: The Federal rules restrict any use of the information to criminally investigate or prosecute any alcohol or drug abuse patient.[facility] RehabilitationIn the event this information is protected by the Federal Confidentiality of Alcohol and Drug Abuse Patient Records regulations: The Federal rules restrict any use of the information to criminally investigate or prosecute any alcohol or drug abuse patient.[facility] RehabilitationIn the event this information is protected by the Federal Confidentiality of Alcohol and Drug Abuse Patient Records regulations: The Federal rules restrict any use of the information to criminally investigate or prosecute any alcohol or drug abuse patient.[facility] RehabilitationIn the event this information is protected by the Federal Confidentiality of Alcohol and Drug Abuse Patient Records regulations: The Federal rules restrict any use of the information to criminally investigate or prosecute any alcohol or drug abuse patient.[facility] RehabilitationIn the event this information is protected by the Federal Confidentiality of Alcohol and Drug Abuse Patient Records regulations: The Federal rules restrict any use of the information to criminally investigate or prosecute any alcohol or drug abuse patient.[facility] RehabilitationIn the event this information is protected by the Federal Confidentiality of Alcohol and Drug Abuse Patient Records regulations: The Federal rules restrict any use of the information to criminally investigate or prosecute any alcohol or drug abuse patient.[facility] RehabilitationIn the event this information is protected by the Federal Confidentiality of Alcohol and Drug Abuse Patient Records regulations: The Federal rules restrict any use of the information to criminally investigate or prosecute any alcohol or drug abuse patient.[facility] RehabilitationIn the event this information is protected by the Federal Confidentiality of Alcohol and Drug Abuse Patient Records regulations: The Federal rules restrict any use of the information to criminally investigate or prosecute any alcohol or drug abuse patient.[facility] RehabilitationIn the event this information is protected by the Federal Confidentiality of Alcohol and Drug Abuse Patient Records regulations: The Federal rules restrict any use of the information to criminally investigate or prosecute any alcohol or drug abuse patient.[facility] RehabilitationIn the event this information is protected by the Federal Confidentiality of Alcohol and Drug Abuse Patient Records regulations: The Federal rules restrict any use of the information to criminally investigate or prosecute any alcohol or drug abuse patient.[facility] RehabilitationIn the event this information is protected by the Federal Confidentiality of Alcohol and Drug Abuse Patient Records regulations: The Federal rules restrict any use of the information to criminally investigate or prosecute any alcohol or drug abuse patient.[facility] RehabilitationIn the event this information is protected by the Federal Confidentiality of Alcohol and Drug Abuse Patient Records regulations: The Federal rules restrict any use of the information to criminally investigate or prosecute any alcohol or drug abuse patient.[facility] RehabilitationIn the event this information is protected by the Federal Confidentiality of Alcohol and Drug Abuse Patient Records regulations: The Federal rules restrict any use of the information to criminally investigate or prosecute any alcohol or drug abuse patient.[facility] RehabilitationIn the event this information is protected by the Federal Confidentiality of Alcohol and Drug Abuse Patient Records regulations: The Federal rules restrict any use of the information to criminally investigate or prosecute any alcohol or drug abuse patient.[facility] RehabilitationIn the event this information is protected by the Federal Confidentiality of Alcohol and Drug Abuse Patient Records regulations: The Federal rules restrict any use of the information to criminally investigate or prosecute any alcohol or drug abuse patient.[facility] RehabilitationIn the event this information is protected by the Federal Confidentiality of Alcohol and Drug Abuse Patient Records regulations: The Federal rules restrict any use of the information to criminally investigate or prosecute any alcohol or drug abuse patient.[facility] RehabilitationIn the event this information is protected by the Federal Confidentiality of Alcohol and Drug Abuse Patient Records regulations: The Federal rules restrict any use of the information to criminally investigate or prosecute any alcohol or drug abuse patient.[facility] RehabilitationIn the event this information is protected by the Federal Confidentiality of Alcohol and Drug Abuse Patient Records regulations: The Federal rules restrict any use of the information to criminally investigate or prosecute any alcohol or drug abuse patient.[facility] RehabilitationIn the event this information is protected by the Federal Confidentiality of Alcohol and Drug Abuse Patient Records regulations: The Federal rules restrict any use of the information to criminally investigate or prosecute any alcohol or drug abuse patient.[facility] RehabilitationIn the event this information is protected by the Federal Confidentiality of Alcohol and Drug Abuse Patient Records regulations: The Federal rules restrict any use of the information to criminally investigate or prosecute any alcohol or drug abuse patient.[facility] RehabilitationIn the event this information is protected by the Federal Confidentiality of Alcohol and Drug Abuse Patient Records regulations: The Federal rules restrict any use of the information to criminally investigate or prosecute any alcohol or drug abuse patient.[facility] RehabilitationIn the event this information is protected by the Federal Confidentiality of Alcohol and Drug Abuse Patient Records regulations: The Federal rules restrict any use of the information to criminally investigate or prosecute any alcohol or drug abuse patient.[facility] RehabilitationIn the event this information is protected by the Federal Confidentiality of Alcohol and Drug Abuse Patient Records regulations: The Federal rules restrict any use of the information to criminally investigate or prosecute any alcohol or drug abuse patient.[facility] Teams (unrecognized sec tion and content) Mail Order Clerk Relationship Specialty Start Date End Date Savana Prater MD [address] [id number] PCP - General Family Practice 07/15/20 Mail Order Clerk Relationship Specialty Start Date End Date Savana Prater MD [address] [id number] PCP - General Family Practice 07/15/20 Mail Order Clerk Relationship Specialty Start Date End Date Savana Prater MD [address] [id number] PCP - General Family Practice 07/15/20 Mail Order Clerk Relationship Specialty Start Date End Date Savana Prater MD [address] [id number] PCP - General Family Practice 07/15/20 Mail Order Clerk Relationship Specialty Start Date End Date Savana Prater MD [address] [id number] PCP - General Family Medicine 07/15/20 Mail Order Clerk Relationship Specialty Start Date End Date Savana Prater MD [address] [place] [address] PCP - General Family Medicine 07/15/20 Mail Order Clerk Relationship Specialty Start Date End Date Savana Prater MD [address] [id number] PCP - General Family Medicine 07/15/20 Mail Order Clerk Relationship Specialty Start Date End Date Savana Prater MD [address] [place] [address] PCP - General Family Medicine 07/15/20 Mail Order Clerk Relationship Specialty Start Date End Date Savana Prater MD [address] [place] [address] PCP - General Family Medicine 07/15/20 Mail Order Clerk Relationship Specialty Start Date End Date Savana Prater MD PCP - General Family Medicine 07/15/20 Mail Order Clerk Relationship Specialty Start Date End Date Savana Prater MD PCP - General Family Medicine 07/15/20 Mail Order Clerk Relationship Specialty Start Date End Date Savana Prater MD PCP - General Family Medicine 07/15/20 Mail Order Clerk Relationship Specialty Start Date End Date Savana Prater MD PCP - General Family Medicine 07/15/20 Mail Order Clerk Relationship Specialty Start Date End Date Savana Prater MD PCP - General Family Medicine 07/15/20 Mail Order Clerk Relationship Specialty Start Date End Date Savana Prater MD PCP - General Family Medicine 07/15/20 Mail Order Clerk Relationship Specialty Start Date End Date Savana Prater MD PCP - General Family Medicine 07/15/20 Mail Order Clerk Relationship Specialty Start Date End Date Savana Prater MD [address] [place] [address] PCP - General 09/11/19 Mail Order Clerk Relationship Specialty Start Date End Date Savana Prater MD [address] [place] [address] PCP - General 09/11/19 Mail Order Clerk Relationship Specialty Start Date End Date Savana Prater MD PCP - General Family Medicine 07/15/20 12/25/23 Mail Order Clerk Relationship Specialty Start Date End Date Festus Grimes MD [address] [facility] [address] [place] [address] PCP - General Internal Medicine 12/26/23 Mail Order Clerk Relationship Specialty Start Date End Date Festus Grimes MD [address] [facility] [address] [place] [address] PCP - General Internal Medicine 12/26/23 Mail Order Clerk Relationship Specialty Start Date End Date Festus Grimes MD [address] [facility] [address] [place] [address] PCP - General Internal Medicine 12/26/23 Mail Order Clerk Relationship Specialty Start Date End Date Savana Prater MD [address] [place] [address] PCP - General Family Medicine 02/05/24 Torri Lambert, JADA Specialty Appliance Assembler Orthopedics 02/04/2403/12/24 Mail Order Clerk Relationship Specialty Start Date End Date Savana Prater MD [address] [place] [address] PCP - General Family Medicine 02/05/24 Torri Lambert, RN Specialty Appliance Assembler Orthopedics 02/04/2403/12/24 Mail Order Clerk Relationship Specialty Start Date End Date Savana Prater MD [address] [id number] PCP - General Family Medicine 02/05/24 Torri Lambert, JADA Specialty Appliance Assembler Orthopedics 02/04/2403/12/24 Mail Order Clerk Relationship Specialty Start Date End Date Savana Prater MD [address] [id number] PCP - General Family Medicine 02/05/24 Torri Lambert, RN Specialty Appliance Assembler Orthopedics 02/04/2403/12/24 Mail Order Clerk Relationship Specialty Start Date End Date Savana Prater MD [address] [id number] PCP - General Family Medicine 02/05/24 Torri Lambert, JADA Specialty Appliance Assembler Orthopedics 02/04/2403/12/24 Mail Order Clerk Relationship Specialty Start Date End Date Savana Prater MD [address] [id number] PCP - General Family Medicine 02/05/24 Reason for Visit (unrecogniz ed section and content) Reason Comments New Patient Evaluation Specialty Diagnoses / Procedures Referred By Toña t Referred To Contact Neurology / NEUROLOGY Diagnoses Alzheimer's dementia with behavioral disturbance, unspecified timing of dementia onset (HCC) Procedures CONSULT TO NEUROLOGY NEW PATIENT VISIT LEVEL 5 Evita Calderon MD [address] [place] [address] Neur Continuity [facility] [address] [place] [address] Referral ID Status Reason Start Date Expiration Date Visits Requested Visits Authorized [id number] Pending Review PCP Requested Referral 04/01/2021 04/01/2022 1 1 Reason Comments Established Patient Reason Comments Established Patient Memory Loss New Patient Reason Comments Patient Question Reason Comments Appointment Specialty Diagnoses / Procedures Referred By Contac t Referred To Contact Cardiology Diagnoses Carotid stenosis, bilateral Benign hypertension Procedures Vascular US carotid artery duplex bilateral Mary Anne Snow MD [address] [facility] [address] [place] [address] Referral ID Status Reason Start Date Expiration Date Visits Requested Visits Authorized [id number] Authorized Perform Procedure 06/25/2023 12/22/2023 1 1 [...] BE BASED ON THE PRIMARY CLINICAL RECORDS. [employer] provides no warranty or guarantee of the accuracy or completeness of information in this document.
--- NOTE | 2024-08-15 15:34 | XR_ITS ---
The [address] [address] Patient Name: ROBERTO HILL MRN: [id number] date: 1940 Sex: F Assigned Patient Location: LAB Current Patient Location: Accession/Order Number: [id number] Exam Date: 08/15/2024 15:40 Report Date: 08/16/2024 13:01 At the request of: SAVANA PRATER Procedure: XR femur RT 2V EXAMINATION: XR hip BI w PEL 1V, XR femur RT 2V HISTORY: Leg Pain ; bilateral hip pain, right thigh pain COMPARISON: No relevant comparison available. FINDINGS: BONES: The patient had replacement without evidence of hardware fracture loosening. Slight narrowing of the right hip joint space and small periarticular degenerative osteophytes. Moderate to marked narrowing of the knee joint spaces. No fracture or bone lesion of the femur. SOFT TISSUES: No visible soft tissue swelling. OTHER: Negative. XR/XR femur RT 2V IMPRESSION: 1. No fracture, dislocation, bone lesion. 2. 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 2. 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 Electronically authenticated by: SAMM GATES Date: 08/16/2024 13:01
--- NOTE | 2024-08-15 15:34 | XR_ITS ---
The [address] [address] Patient Name: ROBERTO HILL MRN: [id number] date: 1940 Sex: F Assigned Patient Location: LAB Current Patient Location: Accession/Order Number: [id number] Exam Date: 08/15/2024 15:40 Report Date: 08/16/2024 13:01 At the request of: SAVANA PRATER Procedure: XR hip BI w PEL 1V EXAMINATION: XR hip BI w PEL 1V, XR femur RT 2V HISTORY: Leg Pain ; bilateral hip pain, right thigh pain COMPARISON: No relevant comparison available. FINDINGS: BONES: The patient had replacement without evidence of hardware fracture loosening. Slight narrowing of the right hip joint space and small periarticular degenerative osteophytes. Moderate to marked narrowing of the knee joint spaces. No fracture or bone lesion of the femur. SOFT TISSUES: No visible soft tissue swelling. OTHER: Negative. XR/XR hip BI w PEL 1V IMPRESSION: 1. No fracture, dislocation, bone lesion. 2. 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 2. 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 Electronically authenticated by: SAMM GATES Date: 08/16/2024 13:01
[2024-08-15 16:17] LABS: Basophils Percent Auto 0.4 % (0.2-2.0); Eosinophils Absolute Auto 0.5 10^3/uL (0.0-0.7); Eosinophils Percent Auto 5.1 % (0.9-7.0); Hematocrit 39.3 % (36.0-48.0); Hemoglobin 12.8 g/dL (12.0-16.0); Immature Granulocytes Abs Auto 0.03 10^3/uL (0.00-0.03); Immature Granulocytes Pct Auto 0.3 % (0.0-0.5); Lymphocytes Absolute Auto 2.5 10^3/uL (1.2-3.8); Lymphocytes Percent Auto 26.2 % (20.5-60.0); Mean Corpuscular HGB Conc 32.6 g/dL (29.9-35.2); Mean Corpuscular Volume 95.2 fL (81.0-99.0); Mean Platelet Volume 8.7 fL (9.5-13.5); Monocytes Absolute Auto 0.9 10^3/uL (0.3-0.8); Monocytes Percent Auto 9.2 % (1.7-12.0); Neutrophils Absolute Auto 5.6 10^3/uL (1.4-6.5); Neutrophils Percent Auto 58.8 % (43.0-75.0); Platelet Count 327 10^3/uL (150-450); Red Blood Count 4.13 10^6/uL (4.20-5.40); Red Cell Distribution Width 15.1 % (11.0-15.0); White Blood Count 9.6 10^3/uL (4.0-11.0)
[2024-08-15 16:28] LABS: Estimated Average Glucose 128 mg/dL; Glycohemoglobin A1C 6.1 % (4.5-6.2)
[2024-08-15 16:50] LABS: Alanine Aminotransferase 102 U/L (14-59); Albumin Globulin Ratio 0.7; Albumin Level 3.3 g/dL (3.4-5.0); Alkaline Phosphatase 173 U/L (46-116); Anion Gap 15.7; Aspartate Amino Transferase 42 U/L (15-37); BUN Creatinine Ratio 21.9; Bilirubin Total 0.3 mg/dL (0.2-1.0); Calcium 9.5 mg/dL (8.5-10.1); Carbon Dioxide 25.3 mmol/L (21.0-32.0); Chloride 105 mmol/L (98-107); Estimated GFR (African America >60 (>=60 mL/min/1.73m^2); Estimated GFR (Non-African Ame 56 (>=60 mL/min/1.73m^2); Free T3 2.64 pg/mL (2.18-3.98); Globulin 4.6 g/dL; Glucose 110 mg/dL (74-106); Sodium 142 mmol/L (136-145); Thyroid Stimulating Hormone 2.235 uIU/mL (0.358-3.740); Total Protein 7.9 g/dL (6.4-8.2)
== END 2024-08-15 15:09 | disposition home or self-care (01) ==
LOC: LAB 15:11
PROVIDERS: PCP Family Medicine; Visit Provider Family Medicine
DX: M25.551 Pain in right hip (principal); G30.9 Alzheimer's disease, unspecified; R53.1 Weakness; R53.83 Other fatigue; R73.09 Other abnormal glucose; D64.9 Anemia, unspecified; E03.9 Hypothyroidism, unspecified; I50.30 Unspecified diastolic (congestive) heart failure; I11.0 Hypertensive heart disease with heart failure
CPT/HCPCS: 36415; 73523; 73552; 80053; 83036; 83540; 83880; 84436; 84443; 84481; 85025